=== PATIENT | female | born 1960 | race Caucasian/White ===

== ENCOUNTER 2017-12-06 14:23 | Inpatient (IN) | payer OTHER, SELFPAY ==
[2017-12-06] VITALS (7 sets, daily range): BP systolic 103–147; BP diastolic 41–69; PULSE 102–112; RESP 16–18; TEMP 36.7–36.9; O2SAT 88–97; BMI 66.6; BMI 66.7; BMI 67.3
--- NOTE | 2017-12-06 15:09 | RAD_ITS ---
STUDY: X-RAY CHEST REASON FOR EXAM: Female, 57 years old. Hypoxia. TECHNIQUE: Single AP portable view of the chest. COMPARISON: Comparison is made with prior examination dated December 31, 2016. FINDINGS: There is evidence of vascular congestion and mild degree of CHF. There is no demonstrated pleural abnormality. There is moderate cardiac enlargement. Normal mediastinum and han. Normal visualized pulmonary arteries. There is atherosclerotic calcification of the aortic arch with tortuosity. There are diffuse degenerative changes of the visualized thoracic spine. Normal visualized ribs, clavicles, and shoulders. There is no demonstrated abnormality of the visualized soft tissue structures of the upper abdomen. RAD/Chest 1 View (Portable) IMPRESSION: Cardiomegaly. Mild degree of CHF. Electronically Signed: Oh Wellington MD at 15:29 EDT Tel [phone], Service support ,
[2017-12-06] MEDS: Ondansetron 4 MG/2 ML Vial IV (15:39)
[2017-12-06] MEDS: Morphine 4 MG/ML Syringe IV ×2 (15:39→16:51)
[2017-12-06 16:02] LABS: Absolute Lymphocyte Count 1.37 X10^3/ul (0.83-4.51); Absolute Neutrophil Count 6.4 X10^3/uL (2.0-7.7); Basophil# 0.02 X10^3/uL; Basophil% 0.2 % (0-1); Eosinophil# 0.11 X10^3/uL; Eosinophils% 1.3 % (0-5); Hematocrit 33.4 % (37-47); Hemoglobin 10.4 g/dl (12.0-15.0); Lymphocyte # 1.37 X10^3/ul (4.0); Lymphocyte % 16.6 % (19-41); Mean Corp Hgb Conc 31.1 g/gl (32-36); Mean Corpuscular Hgb 29.1 pg (27.0-32.0); Mean Corpuscular Volume 93.3 fL (81-99); Mean Platelet Vol. 9.4 fl (6.2-12.0); Monocyte# 0.37 X10^3/uL; Monocyte% 4.5 % (0-10); Neutrophil # 6.35 X10^3/uL (2.7-7.7); Neutrophil % 77.3 % (47-70); Platelet Count 263 K/mm3 (150-450); RBC Distribution Width CV 18.7 % (11.6-14.6); RBC Distribution Width SD 62.8 fl (35.1-43.9); Red Blood Count 3.58 M/mm3 (4.2-5.4); White Blood Count 8.2 K/mm3 (4.4-11.0)
[2017-12-06 16:08] LABS: POSITIVE COUNT NO; POSITIVE DIFFERENTIAL NO; POSITIVE MORPHOLOGY NO
[2017-12-06 16:16] LABS: Anion Gap 6 (5-15); BUN 24 mg/dL (7-18); BUN/Creat Ratio 22.9 RATIO (10-20); Chloride 103 mmol/L (98-107); Creatinine, Serum 1.05 mg/dL (0.55-1.02); EST Glomerular Filtration Rate 57 mL/min (>60); Est Glom Filt Rate - Afr Amer 69 mL/min (>60); Estimated Creatinine Clearance 54.01 ml/min; Glucose 284 mg/dL (74-106); Potassium 4.5 mmol/L (3.5-5.1); Sodium Level 139 mmol/L (136-145)
[2017-12-06 16:21] LABS: International Normalized Ratio 1.8; Prothrombin Time (Protime)PT. 21.1 SECONDS (11.7-14.9)
[2017-12-06 16:33] LABS: BNP,B-Type NATRIURETIC PEPTIDE 122.7 pg/mL (0-100)
--- NOTE | 2017-12-06 17:06 | NURSING ---
DR KEYSHAWN THOMPSON
--- NOTE | 2017-12-06 17:13 | ED.DCSUM_ITS ---
- ER Visit Summary Date of Service: 12/06/17 Chief Complaint: [Redness and swelling to right lower extremity] History of Present Illness: The patient is a 57 F [presents to the emergency department with excoriated lesions to the right lower extremity that started about a week ago. Patient states the wounds have been weeping and the leg is now red and painful to the touch. Patient has had a history of cellulitis in the past. Patient denies any fevers. Patient is on home oxygen at night only. Patient denies any shortness of breath out of the ordinary.] Physical Examination: [HEENT-PERRLA, EOMI. Cranial nerves II through XII grossly intact. TMs clear. Mucous membranes moist. No adenopathy. Cardiovascular-irregularly irregular with a 2 out of 6 systolic ejection murmur noted Lungs- good aeration bilaterally with few rales noted in the bases bilaterally. No accessory muscle use or retractions. Abdomen-normoactive bowel sounds, soft, nontender, no rebound or rigidity, no peritoneal signs. Extremities-intact ?4, normal range of motion, normal pulses, atraumatic]. Patient has multiple excoriated lesions to the right lower extremity below the knee that are weeping. Patient has diffuse erythema and cellulitis. Patient has +2 edema both lower extremities. Test Results: [CBC with differential obtained showed a white count of 8.2, hemoglobin 10, hematocrit 33, platelets 263. Chemistries unremarkable. Glucose was 284. BUN was 24 and creatinine was 1.05. INR was 1.8. BNP was 122. Chest x-ray showed cardiomegaly and mild CHF. Cultures of the right leg wounds ordered as well as MRSA.] Emergency Department Course and Treatment: [Patient was started on vancomycin and was medicated with morphine.] Treatment Plan: [Patient will be admitted for IV antibiotics] Disposition: [Admit] Impression: [Cellulitis right lower extremity CHF with hypoxemia] This note was generated with [employer] dictation software. It may contain incorrect words, spelling, and punctuation that were not noted in review of the chart prior to signing ED Disposition - Plan for ED Patient: Chief Complaint: Edema Referrals: Rajesh Reynolds MD [Primary Care Provider] -
--- NOTE | 2017-12-06 17:25 | NURSING ---
MED SURG LEG CELLULITIS [place]
--- NOTE | 2017-12-06 17:47 | PCM.HP.STD ---
Problem List (1) Cellulitis of leg, right Status: Acute History of Present Illness Date of Admission: 12/06/17 Chief Complaint: Right leg redness, bilateral leg excoriations The patient is a 57 year old F who is morbidly obese past medical history of chronic atrial fibrillation, congestive heart failure with preserved left ventricular function, chronic lower extremity venostasis with recurrent cellulitis who presented to the emergency room today with redness on the right leg as well as with excoriated lesions on both lower extremities that started about a week ago recently getting worse. She denies any fever or chills. Emergency room swab from her legs was positive for MRSA PCR was given a dose of IV vancomycin and admitted to the hospital for further management. Past Medical History Past Medical History (Chronic Problems): Chronic Problems (Last Updated 08/26/17 @ 10:40 by Erin Carter) Pulmonary hypertension (Chronic) Morbid obesity (Chronic) Congestive heart failure (Chronic) Chronic atrial fibrillation (Chronic) Type 2 diabetes mellitus (Chronic) Hypertension (Chronic) Allergies latex Allergy (Verified 03/26/15 11:04) Itching pentazocine lactate [From [place]] Allergy (Verified 03/26/15 11:04) Itching phenobarbital Allergy (Verified 03/26/15 11:04) Itching tree nut Allergy (Verified 03/26/15 11:04) Anaphylaxis codeine Adverse Reaction (Verified 03/26/15 11:04) Upset Stomach Home Medications: Ambulatory Orders Medication Instructions Recorded Citalopram [Celexa] 40 mg PO DAILY 03/20/15 Digoxin [Digitek] 250 mcg PO DAILY 03/20/15 Exenatide [Byetta (BKC)] 5 mcg SC BIDCM 03/20/15 Lisinopril [Zestril] 10 mg PO DAILY 03/20/15 Lorazepam [Ativan] 1 mg PO TID PRN PRN 03/20/15 Metformin HCl [Glucophage] 1,000 mg PO BIDCM 03/20/15 Nadolol [Corgard (Beta Mk)] 120 mg PO DAILY 03/20/15 Torsemide [Demadex] 20 mg PO BID 03/20/15 glipiZIDE [Glucotrol] 10 mg PO BIDAC 03/20/15 Gabapentin [Neurontin] 400 mg PO 4X/DAY 12/30/16 Insulin Aspart [Novolog Flexpen] 14 units SC TIDCM 12/30/16 Insulin Glargine,Hum.rec.anlog 46 unit SQ QHS 12/30/16 [Lantus] Warfarin [Coumadin] 10 mg PO TUTHSA 12/30/16 Warfarin [Coumadin] 11 mg PO SUMOWEFR 12/30/16 albuterol sulfate HFA 90 2 puff INHALATION Q4H PRN g 08/26/17 mcg/actuation aerosol inhaler fluticasone 50 mcg/actuation nasal 2 spray INTRANASAL DAILY 08/26/17 spray,suspension Budesonide/Formoterol 160/4.5 2 inh INHALATION Q12H 12/06/17 [Symbicort 160/4.5 Mcg Inhaler (SP)] Diltiazem HCl [Diltiazem 24Hr ER] 120 mg PO DAILY 12/06/17 traMADol [Ultram] 50 mg PO Q4H PRN 12/06/17 Surgical History: hysterectomy, tonsillectomy, - - 2 section. 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 Right leg cellulitis and multiple small bilateral leg wounds; will continue on IV antibiotics and consult ET nurse to assist with local wound care. 2. 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 3. Chronic atrial fibrillation; he is on Cardizem, digoxin and Coumadin, we will continue these medications without change. 4. Morbid obesity; weight loss recommended. 5. DM is type II; will place on regular insulin sliding scale. 6. Chronic congestive heart failure with preserved left ventricular function/pulmonary hypertension; supplemental oxygen diuresis. 7. Ambulatory dysfunction due to morbid obesity; PT/OT, possible long-term placement.
--- NOTE | 2017-12-06 18:10 | NURSING ---
Addendum entered by Corrine Landeros 12/06/17 18:11: HAS A POA Original Note: NO LW OR POA
[2017-12-06 19:10] LABS: Staph aureus DNA By PCR POSITIVE (Negative)
[2017-12-06 19:11] LABS: Probe Check PASS
[2017-12-06 19:12] LABS: M R Staph aureus DNA By PCR POSITIVE (Negative)
[2017-12-06] MEDS: traMADol 50 MG Tablet 100 MG PO (22:06)
[2017-12-06] MEDS: LORazepam 1 MG Tablet PO (22:08)
[2017-12-06] MEDS: Ketorolac 30 MG/ML Syringe IV (22:22)
[2017-12-06] MEDS: Gabapentin 400 MG Capsule PO (22:22)
[2017-12-06] MEDS: Heparin Injection (Vial) 5,000 UNIT/ML VIAL 5000 UNIT SC (22:23)
[2017-12-06 22:50] LABS: Bedside Glucose 280 mg/dL (70-110)
--- NOTE | 2017-12-06 23:11 | PCM.RX.CS ---
Consult Pharmacy has been consulted to manage selected antiobiotic: Vancomycin Type of Consult: New start Suspected Infection: Skin/Soft tissue Labs: Sodium 139 mmol/L (136-145) 12/06/17 15:20 Potassium 4.5 mmol/L (3.5-5.1) 12/06/17 15:20 Chloride 103 mmol/L (98-107) 12/06/17 15:20 Carbon Dioxide 30.0 mmol/L (21.0-32.0) 12/06/17 15:20 Anion Gap 6 (5-15) 12/06/17 15:20 BUN 24 mg/dL (7-18) H 12/06/17 15:20 Creatinine 1.05 mg/dL (0.55-1.02) H 12/06/17 15:20 Est GFR (MDRD) Af Amer 69 mL/min (>60) 12/06/17 15:20 Est GFR (MDRD) Non-Af 57 mL/min (>60) L 12/06/17 15:20 BUN/Creatinine Ratio 22.9 RATIO (10-20) H 12/06/17 15:20 Glucose 284 mg/dL (74-106) H 12/06/17 15:20 Goal Trough: 10-15 mcg/mL Pharmacy Plan for Drug Dosing: Pharmacy Service will continue to monitor and adjust dosing as required. Medications Vancomycin HCl 2,000 mg/ (Sodium Chloride) 540 mls @ 260 mls/hr IV Q18H FRED Follow-Up Labs: Trough Vancomycin Labs to be done on [date and time ordered]: 12/08 @ 1999
[2017-12-06] MEDS: Nystatin Powder 15gm Bottle 1 APPLIC TOPICAL (23:20)
[2017-12-07] VITALS (11 sets, daily range): BP systolic 92–112; BP diastolic 50–66; PULSE 69–122; RESP 16–19; TEMP 36.5–37.1; O2SAT 93–99
[2017-12-07] MEDS: Nystatin Powder 15gm Bottle 1 APPLIC TOPICAL ×3 (05:36→22:09)
[2017-12-07] MEDS: Ketorolac 30 MG/ML Syringe IV ×2 (05:40→12:48)
[2017-12-07 06:08] LABS: International Normalized Ratio 1.8; Prothrombin Time (Protime)PT. 20.6 SECONDS (11.7-14.9)
[2017-12-07 06:16] LABS: Absolute Lymphocyte Count 2.01 X10^3/ul (0.83-4.51); Absolute Neutrophil Count 4.7 X10^3/uL (2.0-7.7); Basophil# 0.01 X10^3/uL; Basophil% 0.1 % (0-1); Eosinophil# 0.23 X10^3/uL; Hematocrit 30.1 % (37-47); Hemoglobin 9.3 g/dl (12.0-15.0); Lymphocyte # 2.01 X10^3/ul (4.0); Lymphocyte % 26.4 % (19-41); Mean Corp Hgb Conc 30.9 g/gl (32-36); Mean Corpuscular Hgb 28.8 pg (27.0-32.0); Mean Corpuscular Volume 93.2 fL (81-99); Mean Platelet Vol. 9.2 fl (6.2-12.0); Monocyte# 0.65 X10^3/uL; Monocyte% 8.5 % (0-10); Neutrophil # 4.71 X10^3/uL (2.7-7.7); Neutrophil % 61.9 % (47-70); Platelet Count 245 K/mm3 (150-450); RBC Distribution Width CV 18.9 % (11.6-14.6); RBC Distribution Width SD 64.2 fl (35.1-43.9); Red Blood Count 3.23 M/mm3 (4.2-5.4); White Blood Count 7.6 K/mm3 (4.4-11.0)
[2017-12-07 06:17] LABS: Anion Gap 6 (5-15); BUN 19 mg/dL (7-18); BUN/Creat Ratio 25.4 RATIO (10-20); Chloride 104 mmol/L (98-107); Creatinine, Serum 0.75 mg/dL (0.55-1.02); EST Glomerular Filtration Rate 84 mL/min (>60); Est Glom Filt Rate - Afr Amer 102 mL/min (>60); Estimated Creatinine Clearance 75.61 ml/min; Glucose 129 mg/dL (74-106); Potassium 3.9 mmol/L (3.5-5.1); Sodium Level 138 mmol/L (136-145)
[2017-12-07 06:23] LABS: POSITIVE COUNT NO; POSITIVE DIFFERENTIAL NO; POSITIVE MORPHOLOGY NO
[2017-12-07] MEDS: Budesonide Respules 0.5 MG/2 ML AMPUL.NEB. INHALATION ×2 (07:12→23:05)
[2017-12-07] MEDS: Albuterol 2.5 MG/3 ML VIAL.NEB. INHALATION ×2 (07:13→23:05)
[2017-12-07 07:26] LABS: Bedside Glucose 144 mg/dL (70-110)
--- NOTE | 2017-12-07 08:24 | PCM.RX.CS ---
Consult Pharmacy has been consulted to manage selected antiobiotic: Vancomycin Type of Consult: Follow-up Suspected Infection: Skin/Soft tissue Prior Doses of Antibiotics Received/Current Regimen: Medications Discontinued Medications Vancomycin HCl 2,500 mg/ (Sodium Chloride) 550 mls @ 275 mls/hr IV X1 ONE Stop: 12/06/17 17:59 Last Admin: 12/06/17 16:04 Dose: 275 mls/hr Labs: Sodium 138 mmol/L (136-145) 12/07/17 05:20 Potassium 3.9 mmol/L (3.5-5.1) 12/07/17 05:20 Chloride 104 mmol/L (98-107) 12/07/17 05:20 Carbon Dioxide 28.0 mmol/L (21.0-32.0) 12/07/17 05:20 Anion Gap 6 (5-15) 12/07/17 05:20 BUN 19 mg/dL (7-18) H 12/07/17 05:20 Creatinine 0.75 mg/dL (0.55-1.02) 12/07/17 05:20 Est GFR (MDRD) Af Amer 102 mL/min (>60) 12/07/17 05:20 Est GFR (MDRD) Non-Af 84 mL/min (>60) 12/07/17 05:20 BUN/Creatinine Ratio 25.4 RATIO (10-20) H 12/07/17 05:20 Glucose 129 mg/dL (74-106) H 12/07/17 05:20 Weight used for dosin kg Estimated Creatinine Clearance: 76 mL/min Goal Trough: 10-15 mcg/mL Pharmacy Plan for Drug Dosing: Pharmacy Service will continue to monitor and adjust dosing as required. Follow-Up Labs: Trough Vancomycin - 12/09/17 @ 1000
[2017-12-07] MEDS: traMADol 50 MG Tablet 100 MG PO (09:14)
[2017-12-07] MEDS: Morphine 4 MG/ML Syringe IV ×3 (09:30→22:07)
[2017-12-07] MEDS: 0.9% NaCl Peripheral Flush Adult/Peds IV ×4 (09:39→22:08)
[2017-12-07] MEDS: Lisinopril 10 MG Tablet PO (09:40)
[2017-12-07] MEDS: Furosemide 40 MG Tablet PO ×2 (09:40→17:36)
[2017-12-07] MEDS: Gabapentin 400 MG Capsule PO ×4 (09:41→22:05)
[2017-12-07] MEDS: dilTIAZem CD 120 MG Capsule PO (09:41)
[2017-12-07] MEDS: Digoxin 250 MCG Tablet PO (09:41)
[2017-12-07] MEDS: Fluticasone 0.05% 1 SPRAY NASAL.SRY 2 SPRAY NASAL (09:41)
[2017-12-07] MEDS: Citalopram 40 MG TABLET PO (09:41)
[2017-12-07] MEDS: Heparin Injection (Vial) 5,000 UNIT/ML VIAL 5000 UNIT SC ×2 (09:42→22:08)
--- NOTE | 2017-12-07 09:56 | NURSING ---
wound photo: left anteromedial lower leg
--- NOTE | 2017-12-07 09:57 | NURSING ---
wound photo: left posterior lower leg
--- NOTE | 2017-12-07 09:57 | NURSING ---
wound photo: right posterior lower leg
--- NOTE | 2017-12-07 10:29 | PCM.PROGNOTE ---
Subjective: Chief complaint: Follow-up after admission for multiple bilateral posterior leg ulcers/wounds with probable right lower extremity cellulitis. Patient seen and examined. No acute events overnight. When I interviewed the patient, the wound care nurse was changing her dressing and I looked at the ulcers and wounds of both legs. Apparently, patient has been using scrub brush to clean her legs at home and he started having those ulcers on both legs around 10 days ago. She noticed that her right leg is more painful, red and swollen than the left one. She denies fever chills. She denied chest pain or shortness of breath. She is afebrile, heart rate has been around 110, blood pressure stable and her pulse ox is 98% on 2 L. - Physical Exam General: Alert, Oriented x3, Cooperative, - - She is in pain because of dressing change. HEENT: Atraumatic, PERRLA, EOMI Oral: Moist Mucosa, No Gingival or Mucosal Lesions/ Ulcerations Neck: Supple, No JVD, Negative Carotid Bruits, Trachea Midline, Thyroid Normal Size and Texture Lungs: Clear to auscultation, No rhonchi, No wheeze, No rales, Diminished Cardiovascular: Regular rate, Regular Rhythm, Normal S1, Normal S2, PMI Normal, Tachycardic Abdomen: Bowel Sounds Present, Soft, Non Tender, Non-Distended, No Hepato-splenomegaly, Obese Extremities: No clubbing, No cyanosis, Edema - Nonpitting edema. Skin: No rashes, Ulcer/ Wound - Both legs: There are multiple skin ulcers/open wounds with clear base and some of them has black sloughs. The size of those ulcers are ranging from 1 x 1 cm to 2 x 3 cm. They are multiple and on the posterior aspect of the both legs. Right leg is slightly red and hot to palpation. Lymphatic: No Cervical, Supraclavicular, or Inguinal Adenopathy Neurological: Cranial nerves II-XII grossly intact, Motor Exam 5/5 strength throughout Psych/Mental Status: Normal Affect, Appropriate, Alert and oriented to time, place, person, mood and affect Vital Signs Temp Pulse Resp BP Pulse Ox 98.7 F 114 H 16 100/66 93 12/07/17 09:00 12/07/17 09:00 12/07/17 09:00 12/07/17 09:00 12/07/17 09:00 Oxygen Flow Rate (L/min) 2 Oxygen Delivery Method Nasal Cannula Weight: 417 lb Body Mass Index (BMI) 67.3 Intake and Output for Last 24 Hours 12/05/17 12/06/17 12/07/17 23:59 23:59 23:59 Intake Total 450 / 450 Balance 450 / 450 Laboratory Tests Past 24 Hrs 12/07/17 12/07/17 12/07/17 05:20 05:20 05:20 WBC 7.6 RBC 3.23 L Hgb 9.3 L Hct 30.1 L MCV 93.2 MCH 28.8 MCHC 30.9 L RDW 18.9 H RDW Differential 64.2 H Plt Count 245 MPV 9.2 Immature Gran % (Auto) 0.100 Neut % (Auto) 61.9 Lymph % (Auto) 26.4 [place] % (Auto) 8.5 Eos % (Auto) 3.0 Baso % (Auto) 0.1 Absolute Neuts (auto) 4.7 Absolute Lymphs (auto) 2.01 Total Counted Not Reportable PT 20.6 H INR 1.8 Sodium 138 Potassium 3.9 Chloride 104 Carbon Dioxide 28.0 Anion Gap 6 BUN 19 H Creatinine 0.75 Estim Creat Clear Calc 75.61 Est GFR (MDRD) Af Amer 102 Est GFR (MDRD) Non-Af 84 BUN/Creatinine Ratio 25.4 H Glucose 129 H Calcium 8.0 L POC Glucose 12/07/17 12/06/17 07:15 22:28 POC Glucose 144 H 280 H Clinical Impression(s) from Imaging Studies Chest X-Ray 12/06/17 15:09 IMPRESSION: Cardiomegaly. Mild degree of CHF. Electronically Signed: Oh Wellington MD at 15:29 EDT Tel [phone], Service support , Medical Necessity - Tobacco Use Smoking Status: Former smoker Assessment/Plan This is a 57 years old female patient resented to the emergency room because of redness and swelling of the right lower extremity, found to have multiple bilateral ulcers/wounds on the posterior aspect of the bilateral lower extremities probable right lower extremity cellulitis. #1 multiple bilateral leg ulcers/wounds/probable right lower extremity cellulitis: This is a started around 10 days ago when patient has been using scrub brush to clean her legs. She started noticing swelling and mild erythema of the right leg. Denied fever chills. She is on IV vancomycin. Her MRSA screen was positive. She is afebrile, no leukocytosis. Blood and wound culture sent, pending. Wound care nurse consulted. Plan: Plastic surgery consult for possible debridement. #2 type 2 diabetes mellitus: ADA diet, Accu-Cheks, insulin sliding scale, continue home doses of Levemir. #3 hypertension: Blood pressure has been stable, continue lisinopril, Corgard and Cardizem. #4 chronic A. fib: Heart rate has been up and down, goes up to 120s. This is likely because of severe pain upon dressing. Continue digoxin, Cardizem, Corgard for rate control, continue Coumadin for anticoagulate him. INR is 1.8. #5 chronic diastolic CHF: Clinically stable, compensated. Continue Lasix, lisinopril, Corgard. #6 DVT prophylaxis: Coumadin, INR is 1.8. This note was generated with [employer] dictation software. It may contain incorrect words, spelling, and punctuation that were not noted in checking the note before signing. Code Visit Inpatient E&M: 84070 Subs Hosp L2
--- NOTE | 2017-12-07 10:34 | PN_ITS ---
Subjective: Chief complaint: Follow-up after admission for multiple bilateral posterior leg ulcers/wounds with probable right lower extremity cellulitis. Patient seen and examined. No acute events overnight. When I interviewed the patient, the wound care nurse was changing her dressing and I looked at the ulcers and wounds of both legs. Apparently, patient has been using scrub brush to clean her legs at home and he started having those ulcers on both legs around 10 days ago. She noticed that her right leg is more painful, red and swollen than the left one. She denies fever chills. She denied chest pain or shortness of breath. She is afebrile, heart rate has been around 110, blood pressure stable and her pulse ox is 98% on 2 L. - Physical Exam General: Alert, Oriented x3, Cooperative, - - She is in pain because of dressing change. HEENT: Atraumatic, PERRLA, EOMI Oral: Moist Mucosa, No Gingival or Mucosal Lesions/ Ulcerations Neck: Supple, No JVD, Negative Carotid Bruits, Trachea Midline, Thyroid Normal Size and Texture Lungs: Clear to auscultation, No rhonchi, No wheeze, No rales, Diminished Cardiovascular: Regular rate, Regular Rhythm, Normal S1, Normal S2, PMI Normal, Tachycardic Abdomen: Bowel Sounds Present, Soft, Non Tender, Non-Distended, No Hepato- splenomegaly, Obese Extremities: No clubbing, No cyanosis, Edema - Nonpitting edema. Skin: No rashes, Ulcer/ Wound - Both legs: There are multiple skin ulcers/open wounds with clear base and some of them has black sloughs. The size of those ulcers are ranging from 1 x 1 cm to 2 x 3 cm. They are multiple and on the posterior aspect of the both legs. Right leg is slightly red and hot to palpation. Lymphatic: No Cervical, Supraclavicular, or Inguinal Adenopathy Neurological: Cranial nerves II-XII grossly intact, Motor Exam 5/5 strength throughout Psych/Mental Status: Normal Affect, Appropriate, Alert and oriented to time, place, person, mood and affect Vital Signs Temp Pulse Resp BP Pulse Ox 98.7 F 114 H 16 100/66 93 12/07/17 09:00 12/07/17 09:00 12/07/17 09:00 12/07/17 09:00 12/07/17 09:00 Oxygen Flow Rate (L/min) 2 Oxygen Delivery Method Nasal Cannula Weight: 417 lb Body Mass Index (BMI) 67.3 Intake and Output for Last 24 Hours 12/05/17 12/06/17 12/07/17 23:59 23:59 23:59 Intake Total 450 / 450 Balance 450 / 450 Laboratory Tests Past 24 Hrs 12/07/17 12/07/17 12/07/17 05:20 05:20 05:20 WBC 7.6 RBC 3.23 L Hgb 9.3 L Hct 30.1 L MCV 93.2 MCH 28.8 MCHC 30.9 L RDW 18.9 H RDW Differential 64.2 H Plt Count 245 MPV 9.2 Immature Gran % (Auto) 0.100 Neut % (Auto) 61.9 Lymph % (Auto) 26.4 [place] % (Auto) 8.5 Eos % (Auto) 3.0 Baso % (Auto) 0.1 Absolute Neuts (auto) 4.7 Absolute Lymphs (auto) 2.01 Total Counted Not Reportable PT 20.6 H INR 1.8 Sodium 138 Potassium 3.9 Chloride 104 Carbon Dioxide 28.0 Anion Gap 6 BUN 19 H Creatinine 0.75 Estim Creat Clear Calc 75.61 Est GFR (MDRD) Af Amer 102 Est GFR (MDRD) Non-Af 84 BUN/Creatinine Ratio 25.4 H Glucose 129 H Calcium 8.0 L POC Glucose 12/07/17 12/06/17 07:15 22:28 POC Glucose 144 H 280 H Clinical Impression(s) from Imaging Studies Chest X-Ray 12/06/17 15:09 IMPRESSION: Cardiomegaly. Mild degree of CHF. Electronically Signed: Oh Wellington MD at 15:29 EDT Tel [phone], Service support , Medical Necessity - Tobacco Use Smoking Status: Former smoker Assessment/Plan This is a 57 years old female patient resented to the emergency room because of redness and swelling of the right lower extremity, found to have multiple bilateral ulcers/wounds on the posterior aspect of the bilateral lower extremities probable right lower extremity cellulitis. #1 multiple bilateral leg ulcers/wounds/probable right lower extremity cellulitis: This is a started around 10 days ago when patient has been using scrub brush to clean her legs. She started noticing swelling and mild erythema of the right leg. Denied fever chills. She is on IV vancomycin. Her MRSA screen was positive. She is afebrile, no leukocytosis. Blood and wound culture sent, pending. Wound care nurse consulted. Plan: Plastic surgery consult for possible debridement. #2 type 2 diabetes mellitus: ADA diet, Accu-Cheks, insulin sliding scale, continue home doses of Levemir. #3 hypertension: Blood pressure has been stable, continue lisinopril, Corgard and Cardizem. #4 chronic A. fib: Heart rate has been up and down, goes up to 120s. This is likely because of severe pain upon dressing. Continue digoxin, Cardizem, Corgard for rate control, continue Coumadin for anticoagulate him. INR is 1.8. #5 chronic diastolic CHF: Clinically stable, compensated. Continue Lasix, lisinopril, Corgard. #6 DVT prophylaxis: Coumadin, INR is 1.8. This note was generated with [employer] dictation software. It may contain incorrect words, spelling, and punctuation that were not noted in checking the note before signing. Code Visit Inpatient E&M: 31297 Subs Hosp L2
--- NOTE | 2017-12-07 12:10 | CASEMGMT ---
DAVID GARCIA Face to Face with patient for initial transition planning/care coordination assessment. DAVID GARCIA introduced self and role at [facility]. Patient lying in bed, alert and oriented. Patient willing to participate in assessment and is able to answer all questions appropriately. Care providers, pharmacy, and demographics verified. See link attached. Patient wishes to discharge home with HHC or SNF. DAVID GARCIA explained that HHC would not come everyday for dressing changes and that someone would need to learn dressing changing. Patient not sure whether daughter would be willing to help with care. Patient states she has no further needs or concerns at this time. CM to follow for discharge planning needs that may arise. Disposition Plan: TBD by coarse of treatment.
[2017-12-07] MEDS: Nadolol 40 MG Tablet 120 MG PO (12:48)
[2017-12-07 13:11] LABS: Bedside Glucose 139 mg/dL (70-110)
--- NOTE | 2017-12-07 14:03 | PCM.CONS.GEN ---
Reason for Consult Date of Consultation: 12/07/17 Reason for Consultation: Nonhealing infected MRSA ulcers bilateral posterior legs. REFERRING PHYSICIAN: Dr. Carrasco. HANDS HANGER: Dr. Martinez. History of Present Illness: The patient is a 57 year old F who is morbidly obese past medical history of diabetes mellitus, chronic atrial fibrillation on Coumadin, chronic venous insufficiency with venostasis who was admitted to the hospital with pain and redness on her posterior legs from abrasion ulcerations that started a week ago after trying to removed dry skin from her legs using a scrub brush. She denies any fever or chills. Emergency room swab from her legs was positive for MRSA PCR was given a dose of IV vancomycin and admitted to the hospital for further management with IV antibiotics and aggressive wound care. I was asked to evaluate this patient for surgical options for treatment. Past Medical History Past Medical History (Chronic Problems): Chronic Problems (Last Updated 12/07/17 @ 09:05 by Thomas Carrasco MD) Pulmonary hypertension (Chronic) Morbid obesity (Chronic) Congestive heart failure (Chronic) Chronic atrial fibrillation (Chronic) Type 2 diabetes mellitus (Chronic) Hypertension (Chronic) Allergies latex Allergy (Verified 03/26/15 11:04) Itching pentazocine lactate [From Talwin] Allergy (Verified 03/26/15 11:04) Itching phenobarbital Allergy (Verified 03/26/15 11:04) Itching tree nut Allergy (Verified 03/26/15 11:04) Anaphylaxis codeine Adverse Reaction (Verified 03/26/15 11:04) Upset Stomach Current Medications Albuterol Sulfate (Ventolin Aerosols) 2.5 mg INHALATION Q4H PRN Albuterol Sulfate (Ventolin Aerosols) 2.5 mg INHALATION Q6HWA.RT FRED Budesonide (Pulmicort Aerosol) 0.5 mg INHALATION Q12H.RT FRED Citalopram Hydrobromide (Celexa) 40 mg PO DAILY FRED Collagenase (Santyl) 1 applic TOPICAL DAILY FRED Digoxin (Lanoxin) 250 mcg PO DAILY FRED Diltiazem HCl (Cardizem Cd) 120 mg PO DAILY FRED Fluticasone Propionate (Flonase Nasal [place]) 2 spray NASAL DAILY FRED Furosemide (Lasix) 40 mg PO BIDLX FRED Gabapentin (Neurontin) 400 mg PO 4X/DAY FRED Heparin Sodium (Porcine) (Heparin Na) 5,000 unit SC BID FRED Vancomycin HCl 1,750 mg/ (Sodium Chloride) 535 mls @ 260 mls/hr IV Q12H [facility] Insulin Aspart (Novolog Flexpen ([facility])) 14 units SC TIDCM [facility] Insulin Detemir (Levemir ([facility])) 46 units SC QHS [facility] Ketorolac Tromethamine (Toradol) 30 mg IV Q6H PRN Lisinopril (Zestril) 10 mg PO DAILY [facility] Lorazepam (Ativan) 1 mg PO TID PRN Magnesium Hydroxide (Milk Of Magnesia) 30 ml PO DAILY PRN Morphine Sulfate () 4 mg IV Q4H PRN Nadolol (Corgard) 120 mg PO DAILY [facility] Nystatin (Mycostatin Powder) 1 applic TOPICAL TID [facility] Ondansetron HCl (Zofran) 8 mg IV Q6H PRN Tramadol HCl (Ultram) 100 mg PO Q6H PRN Warfarin Sodium (Coumadin (Pbkc)) 10 mg PO SuMoWeFr@1700 [facility] Warfarin Sodium (Coumadin (Pbkc)) 10 mg PO TuThSa@1700 [facility] Warfarin Sodium (Coumadin (Pbkc)) 1 mg PO SuMoWeFr@1700 [facility] PAST MEDICAL HISTORY Diabetes mellitus. Hypertension. Atrial fibrillation. CHF. Obesity. Chronic venous insufficiency with venostasis disease. MRSA. Home Medications: Ambulatory Orders Medication Instructions Recorded Citalopram [Celexa] 40 mg PO DAILY 03/20/15 Digoxin [Digitek] 250 mcg PO DAILY 03/20/15 Exenatide [Byetta ([facility])] 5 mcg SC BIDCM 03/20/15 Lisinopril [Zestril] 10 mg PO DAILY 03/20/15 Lorazepam [Ativan] 1 mg PO TID PRN PRN 03/20/15 Metformin HCl [Glucophage] 1,000 mg PO BIDCM 03/20/15 Nadolol [Corgard (Beta Mk)] 120 mg PO DAILY 03/20/15 Torsemide [Demadex] 20 mg PO BID 03/20/15 glipiZIDE [Glucotrol] 10 mg PO BIDAC 03/20/15 Gabapentin [Neurontin] 400 mg PO 4X/DAY 12/30/16 Insulin Aspart [Novolog Flexpen] 14 units SC TIDCM 12/30/16 Insulin Glargine,Hum.rec.anlog 46 unit SQ QHS 12/30/16 [Lantus] Warfarin [Coumadin] 10 mg PO TUTHSA 12/30/16 Warfarin [Coumadin] 11 mg PO SUMOWEFR 12/30/16 albuterol sulfate HFA 90 2 puff INHALATION Q4H PRN g 08/26/17 mcg/actuation aerosol inhaler fluticasone 50 mcg/actuation nasal 2 spray INTRANASAL DAILY 08/26/17 spray,suspension Budesonide/Formoterol 160/4.5 2 inh INHALATION Q12H 12/06/17 [Symbicort 160/4.5 Mcg Inhaler (SP)] Diltiazem HCl [Diltiazem 24Hr ER] 120 mg PO DAILY 12/06/17 traMADol [Ultram] 50 mg PO Q4H PRN 12/06/17 Surgical History: cholecystectomy, hysterectomy - with BSO, tonsillectomy, - - 2 section. Psychiatric History: No pertinent psych hx REGULATORY ASSISTANT History: No pertinent REGULATORY ASSISTANT history Lives: With Family - her mother Smoking Status: Former smoker Alcohol: None Drugs: None - *Family History Maternal History Items: No pertinent history Paternal History Items: No pertinent history Review of Systems Constitutional: Reports: Malaise, Weight Change - lost 80 lbs over last 1-2 years., Fatigue. Denies: Chills, Fever Eyes: Denies: Cataracts, Pain HEENT: Denies: Nasal Congestion, Sore Throat Cardiovascular: Denies: Chest Pain Respiratory: Denies: Cough, Shortness of Breath Gastrointestinal: Denies: Constipation, Diarrhea, Nausea, Vomiting Genitourinary: Denies: Frequency, Hematuria Musculoskeletal: Reports: Leg Pain - bilateral leg pain from abrasion ulcerations posteriorly.. Denies: Arm Pain, Back Pain, Hand Pain, Neck Pain Skin: Reports: Wounds - has abrasion ulcerations positive for MRSA bilateral posterior legs. Neurological: Denies: Headaches Psychiatric: Denies: Anxiety, Depression Endocrine: Reports: - - has diabetes mellitus.. Denies: Polydipsia, Polyuria Hematologic/ Lymphatic: Reports: Easy Bruising - on Coumadin for atrial fibrillation.. Denies: Hx of blood clot - Physical Exam General: Alert, Oriented x3 HEENT: PERRLA, EOMI Neck: Supple Lungs: Clear to auscultation Cardiovascular: Regular rate, Regular Rhythm Abdomen: Soft, Non-Distended Extremities: No clubbing, No cyanosis, Diminished Peripheral Pulses, Edema - mild edema in lower extremities. Skin: Ulcer/ Wound - abrasion ulcerations bilateral posterior legs scattered. Extend from proximal posterior leg down to the ankle area. Very tender to palpation. Some eschar present. No purulent drainage. Some of the scattered ulcerations appear to be partial thickness like grant. Lymphatic: No Cervical, Supraclavicular, or Inguinal Adenopathy Neurological: Cranial nerves II-XII grossly intact Psych/Mental Status: Normal Affect, Appropriate Vital Signs Temp Pulse Resp BP Pulse Ox 98.7 F 108 H 16 100/66 93 12/07/17 09:00 12/07/17 11:00 12/07/17 09:00 12/07/17 09:00 12/07/17 09:00 Oxygen Flow Rate (L/min) 2 Oxygen Delivery Method Nasal Cannula Weight: 417 lb Body Mass Index (BMI) 67.3 Intake and Output for Last 24 Hours 12/05/17 12/06/17 12/07/17 23:59 23:59 23:59 Intake Total 450 / 450 Balance 450 / 450 Laboratory Tests Past 24 Hrs 12/07/17 12/07/17 12/07/17 05:20 05:20 05:20 WBC 7.6 RBC 3.23 L Hgb 9.3 L Hct 30.1 L MCV 93.2 MCH 28.8 MCHC 30.9 L RDW 18.9 H RDW Differential 64.2 H Plt Count 245 MPV 9.2 Immature Gran % (Auto) 0.100 Neut % (Auto) 61.9 Lymph % (Auto) 26.4 [place] % (Auto) 8.5 Eos % (Auto) 3.0 Baso % (Auto) 0.1 Absolute Neuts (auto) 4.7 Absolute Lymphs (auto) 2.01 Total Counted Not Reportable PT 20.6 H INR 1.8 Sodium 138 Potassium 3.9 Chloride 104 Carbon Dioxide 28.0 Anion Gap 6 BUN 19 H Creatinine 0.75 Estim Creat Clear Calc 75.61 Est GFR (MDRD) Af Amer 102 Est GFR (MDRD) Non-Af 84 BUN/Creatinine Ratio 25.4 H Glucose 129 H Calcium 8.0 L POC Glucose 12/07/17 12/07/17 12/06/17 13:05 07:15 22:28 POC Glucose 139 H 144 H 280 H Assessment/Plan 1. 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 2. Diabetes mellitus. 3. Chronic venous insufficiency with venostasis disease. 4. MRSA. 5. Obesity. 6. Atrial fibrillation on Coumadin. Begin Santyl wound care to try and enzymatically debride these ulcerations before surgery. Recommend operative incision and drainage and excisional debridement of these infected MRSA ulcers bilateral legs. Depending on the size of the wounds after the debridement, the VAC may be placed for wound care or may proceed with daily Silver dressings. Will schedule the surgery tomorrow. Will also need KRISTEN wrap for compression. Before discharge will order a noninvasive arterial Doppler study to check for any underlying arterial disease prior to proceeding with extensive compression. Preop will order a CT scan to look for any underlying involvement of the musculature. Continue the Vancomycin for the MRSA. Being diabetic, she will need IV antibiotics after discharge and a PICC line will be placed. After discharge can followup at [facility]. If there is a plateau in the healing process, can proceed with delayed closure with skin grafting. Anticipate increased metabolic demands with the infection and the wounds. Will check a Prealbumin. Will begin nutritional supplementation with protein to help the healing process. Patient was informed of the risks and complications of the procedure including alternatives to surgery. These were discussed with her personally. She voices understanding and wishes to proceed. She understands that without aggressive debridement and management, she is at increased risk of the infection worsening that may lead to an eventual amputation. She is aware of that possibility and wishes to proceed with the current plan of aggressive debridement and management. After surgery, with these complex wounds and the need for IV antibiotics, it will be difficult to manage this at home. I recommend going to an ECF for further care post-discharge. Code Visit Inpatient E&M: 43162 Init Hosp L2 - ICD-10 - L02.415, L02.416, E11.622, A49.02, E66.01, E11.9
--- NOTE | 2017-12-07 14:06 | CON.PCM_ITS ---
Reason for Consult Date of Consultation: 12/07/17 Reason for Consultation: Nonhealing infected MRSA ulcers bilateral posterior legs. REFERRING PHYSICIAN: Dr. Carrasco. MARINE DIVER: Dr. Martinez. History of Present Illness: The patient is a 57 year old F who is morbidly obese past medical history of diabetes mellitus, chronic atrial fibrillation on Coumadin, chronic venous insufficiency with venostasis who was admitted to the hospital with pain and redness on her posterior legs from abrasion ulcerations that started a week ago after trying to removed dry skin from her legs using a scrub brush. She denies any fever or chills. Emergency room swab from her legs was positive for MRSA PCR was given a dose of IV vancomycin and admitted to the hospital for further management with IV antibiotics and aggressive wound care. I was asked to evaluate this patient for surgical options for treatment. Past Medical History Past Medical History (Chronic Problems): Chronic Problems (Last Updated 12/07/17 @ 09:05 by Thomas Carrasco MD) Pulmonary hypertension (Chronic) Morbid obesity (Chronic) Congestive heart failure (Chronic) Chronic atrial fibrillation (Chronic) Type 2 diabetes mellitus (Chronic) Hypertension (Chronic) Allergies latex Allergy (Verified 03/26/15 11:04) Itching pentazocine lactate [From Talwin] Allergy (Verified 03/26/15 11:04) Itching phenobarbital Allergy (Verified 03/26/15 11:04) Itching tree nut Allergy (Verified 03/26/15 11:04) Anaphylaxis codeine Adverse Reaction (Verified 03/26/15 11:04) Upset Stomach Current Medications Albuterol Sulfate (Ventolin Aerosols) 2.5 mg INHALATION Q4H PRN Albuterol Sulfate (Ventolin Aerosols) 2.5 mg INHALATION Q6HWA.RT FRED Budesonide (Pulmicort Aerosol) 0.5 mg INHALATION Q12H.RT FRED Citalopram Hydrobromide (Celexa) 40 mg PO DAILY FRED Collagenase (Santyl) 1 applic TOPICAL DAILY [facility] Digoxin (Lanoxin) 250 mcg PO DAILY FRED Diltiazem HCl (Cardizem Cd) 120 mg PO DAILY FRED Fluticasone Propionate (Flonase Nasal [place]) 2 spray NASAL DAILY FRED Furosemide (Lasix) 40 mg PO BIDLX FRED Gabapentin (Neurontin) 400 mg PO 4X/DAY [facility] Heparin Sodium (Porcine) (Heparin Na) 5,000 unit SC BID FRED Vancomycin HCl 1,750 mg/ (Sodium Chloride) 535 mls @ 260 mls/hr IV Q12H [facility] Insulin Aspart (Novolog Flexpen ([facility])) 14 units SC TIDCM [facility] Insulin Detemir (Levemir ([facility])) 46 units SC QHS [facility] Ketorolac Tromethamine (Toradol) 30 mg IV Q6H PRN Lisinopril (Zestril) 10 mg PO DAILY [facility] Lorazepam (Ativan) 1 mg PO TID PRN Magnesium Hydroxide (Milk Of Magnesia) 30 ml PO DAILY PRN Morphine Sulfate () 4 mg IV Q4H PRN Nadolol (Corgard) 120 mg PO DAILY [facility] Nystatin (Mycostatin Powder) 1 applic TOPICAL TID [facility] Ondansetron HCl (Zofran) 8 mg IV Q6H PRN Tramadol HCl (Ultram) 100 mg PO Q6H PRN Warfarin Sodium (Coumadin (Pbkc)) 10 mg PO SuMoWeFr@1700 [facility] Warfarin Sodium (Coumadin (Pbkc)) 10 mg PO TuThSa@1700 [facility] Warfarin Sodium (Coumadin (Pbkc)) 1 mg PO SuMoWeFr@1700 [facility] PAST MEDICAL HISTORY Diabetes mellitus. Hypertension. Atrial fibrillation. CHF. Obesity. Chronic venous insufficiency with venostasis disease. MRSA. Home Medications: Ambulatory Orders Medication Instructions Recorded Citalopram [Celexa] 40 mg PO DAILY 03/20/15 Digoxin [Digitek] 250 mcg PO DAILY 03/20/15 Exenatide [Byetta ([facility])] 5 mcg SC BIDCM 03/20/15 Lisinopril [Zestril] 10 mg PO DAILY 03/20/15 Lorazepam [Ativan] 1 mg PO TID PRN PRN 03/20/15 Metformin HCl [Glucophage] 1,000 mg PO BIDCM 03/20/15 Nadolol [Corgard (Beta Mk)] 120 mg PO DAILY 03/20/15 Torsemide [Demadex] 20 mg PO BID 03/20/15 glipiZIDE [Glucotrol] 10 mg PO BIDAC 03/20/15 Gabapentin [Neurontin] 400 mg PO 4X/DAY 12/30/16 Insulin Aspart [Novolog Flexpen] 14 units SC TIDCM 12/30/16 Insulin Glargine,Hum.rec.anlog 46 unit SQ QHS 12/30/16 [Lantus] Warfarin [Coumadin] 10 mg PO TUTHSA 12/30/16 Warfarin [Coumadin] 11 mg PO SUMOWEFR 12/30/16 albuterol sulfate HFA 90 2 puff INHALATION Q4H PRN g 08/26/17 mcg/actuation aerosol inhaler fluticasone 50 mcg/actuation nasal 2 spray INTRANASAL DAILY 08/26/17 spray,suspension Budesonide/Formoterol 160/4.5 2 inh INHALATION Q12H 12/06/17 [Symbicort 160/4.5 Mcg Inhaler (SP)] Diltiazem HCl [Diltiazem 24Hr ER] 120 mg PO DAILY 12/06/17 traMADol [Ultram] 50 mg PO Q4H PRN 12/06/17 Surgical History: cholecystectomy, hysterectomy - with BSO, tonsillectomy, - - 2 section. Psychiatric History: No pertinent psych hx MEDICAL OFFICE SPECIALIST History: No pertinent MEDICAL OFFICE SPECIALIST history Lives: With Family - her mother Smoking Status: Former smoker Alcohol: None Drugs: None - *Family History Maternal History Items: No pertinent history Paternal History Items: No pertinent history Review of Systems Constitutional: Reports: Malaise, Weight Change - lost 80 lbs over last 1-2 years., Fatigue. Denies: Chills, Fever Eyes: Denies: Cataracts, Pain HEENT: Denies: Nasal Congestion, Sore Throat Cardiovascular: Denies: Chest Pain Respiratory: Denies: Cough, Shortness of Breath Gastrointestinal: Denies: Constipation, Diarrhea, Nausea, Vomiting Genitourinary: Denies: Frequency, Hematuria Musculoskeletal: Reports: Leg Pain - bilateral leg pain from abrasion ulcerations posteriorly.. Denies: Arm Pain, Back Pain, Hand Pain, Neck Pain Skin: Reports: Wounds - has abrasion ulcerations positive for MRSA bilateral posterior legs. Neurological: Denies: Headaches Psychiatric: Denies: Anxiety, Depression Endocrine: Reports: - - has diabetes mellitus.. Denies: Polydipsia, Polyuria Hematologic/ Lymphatic: Reports: Easy Bruising - on Coumadin for atrial fibrillation.. Denies: Hx of blood clot - Physical Exam General: Alert, Oriented x3 HEENT: PERRLA, EOMI Neck: Supple Lungs: Clear to auscultation Cardiovascular: Regular rate, Regular Rhythm Abdomen: Soft, Non-Distended Extremities: No clubbing, No cyanosis, Diminished Peripheral Pulses, Edema - mild edema in lower extremities. Skin: Ulcer/ Wound - abrasion ulcerations bilateral posterior legs scattered. Extend from proximal posterior leg down to the ankle area. Very tender to palpation. Some eschar present. No purulent drainage. Some of the scattered ulcerations appear to be partial thickness like grant. Lymphatic: No Cervical, Supraclavicular, or Inguinal Adenopathy Neurological: Cranial nerves II-XII grossly intact Psych/Mental Status: Normal Affect, Appropriate Vital Signs Temp Pulse Resp BP Pulse Ox 98.7 F 108 H 16 100/66 93 12/07/17 09:00 12/07/17 11:00 12/07/17 09:00 12/07/17 09:00 12/07/17 09:00 Oxygen Flow Rate (L/min) 2 Oxygen Delivery Method Nasal Cannula Weight: 417 lb Body Mass Index (BMI) 67.3 Intake and Output for Last 24 Hours 12/05/17 12/06/17 12/07/17 23:59 23:59 23:59 Intake Total 450 / 450 Balance 450 / 450 Laboratory Tests Past 24 Hrs 12/07/17 12/07/17 12/07/17 05:20 05:20 05:20 WBC 7.6 RBC 3.23 L Hgb 9.3 L Hct 30.1 L MCV 93.2 MCH 28.8 MCHC 30.9 L RDW 18.9 H RDW Differential 64.2 H Plt Count 245 MPV 9.2 Immature Gran % (Auto) 0.100 Neut % (Auto) 61.9 Lymph % (Auto) 26.4 [place] % (Auto) 8.5 Eos % (Auto) 3.0 Baso % (Auto) 0.1 Absolute Neuts (auto) 4.7 Absolute Lymphs (auto) 2.01 Total Counted Not Reportable PT 20.6 H INR 1.8 Sodium 138 Potassium 3.9 Chloride 104 Carbon Dioxide 28.0 Anion Gap 6 BUN 19 H Creatinine 0.75 Estim Creat Clear Calc 75.61 Est GFR (MDRD) Af Amer 102 Est GFR (MDRD) Non-Af 84 BUN/Creatinine Ratio 25.4 H Glucose 129 H Calcium 8.0 L POC Glucose 12/07/17 12/07/17 12/06/17 13:05 07:15 22:28 POC Glucose 139 H 144 H 280 H Assessment/Plan 1. 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 2. Diabetes mellitus. 3. Chronic venous insufficiency with venostasis disease. 4. MRSA. 5. Obesity. 6. Atrial fibrillation on Coumadin. Begin Santyl wound care to try and enzymatically debride these ulcerations before surgery. Recommend operative incision and drainage and excisional debridement of these infected MRSA ulcers bilateral legs. Depending on the size of the wounds after the debridement, the VAC may be placed for wound care or may proceed with daily Silver dressings. Will schedule the surgery tomorrow. Will also need KRISTEN wrap for compression. Before discharge will order a noninvasive arterial Doppler study to check for any underlying arterial disease prior to proceeding with extensive compression. Preop will order a CT scan to look for any underlying involvement of the musculature. Continue the Vancomycin for the MRSA. Being diabetic, she will need IV antibiotics after discharge and a PICC line will be placed. After discharge can followup at the [facility]. If there is a plateau in the healing process, can proceed with delayed closure with skin grafting. Anticipate increased metabolic demands with the infection and the wounds. Will check a Prealbumin. Will begin nutritional supplementation with protein to help the healing process. Patient was informed of the risks and complications of the procedure including alternatives to surgery. These were discussed with her personally. She voices understanding and wishes to proceed. She understands that without aggressive debridement and management, she is at increased risk of the infection worsening that may lead to an eventual amputation. She is aware of that possibility and wishes to proceed with the current plan of aggressive debridement and management. After surgery, with these complex wounds and the need for IV antibiotics, it will be difficult to manage this at home. I recommend going to an ECF for further care post-discharge. Code Visit Inpatient E&M: 01944 Init Hosp L2 - ICD-10 - L02.415, L02.416, E11.622, A49.02, E66.01, E11.9
[2017-12-07] MEDS: Collagenase 30gm Tube 1 APPLIC TOPICAL (17:36)
[2017-12-07 17:46] LABS: Bedside Glucose 214 mg/dL (70-110)
[2017-12-07 22:51] LABS: Bedside Glucose 165 mg/dL (70-110)
[2017-12-08] VITALS (15 sets, daily range): BP systolic 124–134; BP diastolic 52–71; PULSE 74–100; RESP 14–20; TEMP 36.6–37.3; O2SAT 90–96; BMI 67.2
[2017-12-08] MEDS: traMADol 50 MG Tablet 100 MG PO (01:09)
[2017-12-08] MEDS: LORazepam 1 MG Tablet PO ×3 (01:09→23:15)
[2017-12-08] MEDS: Morphine 4 MG/ML Syringe IV (04:13)
[2017-12-08] MEDS: Nystatin Powder 15gm Bottle 1 APPLIC TOPICAL ×3 (04:16→23:16)
--- NOTE | 2017-12-08 06:00 | EKG12_ITS ---
Test Reason : AM EKG Blood Pressure : / mmHG Vent. Rate : 078 BPM Atrial Rate : 468 BPM P-R Int : 000 ms QRS Dur : 096 ms QT Int : 414 ms P-R-T Axes : 000 054 126 degrees QTc Int : 471 ms Atrial fibrillation Low voltage QRS Septal infarct , age undetermined ST & T wave abnormality, consider lateral ischemia Abnormal ECG When compared with ECG of 30-DEC-2016 10:57, No significant change was found Confirmed by ARTURO LAZARO, MIKO ([id number]), news editor CHECO HERNANDEZ ([id number]) on 12/17/2017 1:15:18 PM Referred By: VIKTOR Confirmed By:MIKO MORRIS MD
[2017-12-08 06:06] LABS: Partial Thromboplast Time 43.6 Seconds (24.1-36.2)
[2017-12-08 06:08] LABS: Anion Gap 6 (5-15); BUN 20 mg/dL (7-18); BUN/Creat Ratio 22.9 RATIO (10-20); Calcium,Total 8.2 mg/dL (8.5-10.1); Chloride 103 mmol/L (98-107); Creatinine, Serum 0.87 mg/dL (0.55-1.02); EST Glomerular Filtration Rate 71 mL/min (>60); Est Glom Filt Rate - Afr Amer 85 mL/min (>60); Estimated Creatinine Clearance 65.18 ml/min; Glucose 123 mg/dL (74-106); Potassium 4.4 mmol/L (3.5-5.1); Sodium Level 137 mmol/L (136-145)
[2017-12-08 06:12] LABS: Absolute Lymphocyte Count 1.77 X10^3/ul (0.83-4.51); Absolute Neutrophil Count 5.1 X10^3/uL (2.0-7.7); Basophil# 0.01 X10^3/uL; Basophil% 0.1 % (0-1); Eosinophil# 0.29 X10^3/uL; Eosinophils% 3.7 % (0-5); Hematocrit 30.6 % (37-47); Hemoglobin 9.3 g/dl (12.0-15.0); Lymphocyte # 1.77 X10^3/ul (4.0); Lymphocyte % 22.6 % (19-41); Mean Corp Hgb Conc 30.4 g/gl (32-36); Mean Corpuscular Hgb 29.2 pg (27.0-32.0); Mean Corpuscular Volume 96.2 fL (81-99); Mean Platelet Vol. 9.5 fl (6.2-12.0); Monocyte# 0.64 X10^3/uL; Monocyte% 8.2 % (0-10); Neutrophil # 5.11 X10^3/uL (2.7-7.7); Neutrophil % 65.3 % (47-70); Platelet Count 282 K/mm3 (150-450); RBC Distribution Width CV 18.9 % (11.6-14.6); RBC Distribution Width SD 64.5 fl (35.1-43.9); Red Blood Count 3.18 M/mm3 (4.2-5.4); White Blood Count 7.8 K/mm3 (4.4-11.0)
[2017-12-08 06:26] LABS: POSITIVE COUNT NO; POSITIVE DIFFERENTIAL NO; POSITIVE MORPHOLOGY NO
[2017-12-08 06:41] LABS: International Normalized Ratio 1.8; Prothrombin Time (Protime)PT. 20.6 SECONDS (11.7-14.9)
[2017-12-08] MEDS: Budesonide Respules 0.5 MG/2 ML AMPUL.NEB. INHALATION ×2 (07:14→18:55)
[2017-12-08] MEDS: Albuterol 2.5 MG/3 ML VIAL.NEB. INHALATION ×3 (07:14→18:55)
--- NOTE | 2017-12-08 08:33 | CT_ITS ---
STUDY: CT SCAN LOWER EXTREMITY LEFT REASON FOR EXAM: Female, 57 years old. History of MRSA with ulcerations in the lower extremity. RADIATION DOSAGE (If Supplied By Facility): CTDIvol = ( 41.22 ) mGy, DLP = ( 4716.02 ) mGycm. Individualized dose optimization techniques were used for this CT.? TECHNIQUE: Multiple axial tomographic images were obtained from the hip joint down to the ankle without intravenous contrast administration. Coronal and sagittal reconstruction was obtained as well. COMPARISON: None. FINDINGS: There is diffuse soft tissue edema in the medial aspect of the proximal left thigh. This extends into the midline. This extends down to the level of the mid thigh. There is evidence of vascular calcification and phleboliths within the venous structures. Dilated venous varicosities. There is evidence of skin thickening along the posterior aspect of the left lower extremity especially along the medial aspect. Focal ulceration is seen in the posterior aspect of the knee joint. CT/Extremity Lower without Contra IMPRESSION: Diffuse left lower extremity edema worse along the medial aspect of the left thigh extending down to the level of the knee joint with the ulceration along the posterior aspect of the knee joint. Phleboliths are seen within the venous structures as well as varicosities. Vascular calcification. Electronically Signed: Oh Wellington MD at 10:20 EDT Tel [phone], Service support ,
[2017-12-08 08:35] LABS: Bedside Glucose 121 mg/dL (70-110)
--- NOTE | 2017-12-08 08:44 | PCM.PROGNOTE ---
Subjective: Chief complaint: Follow-up after admission for multiple bilateral posterior leg ulcers/wounds with possible secondary bacterial infection as well as probable right lower extremity cellulitis. Patient seen and examined. No acute events overnight. Today, she feels better. Her legs are dressed and covered. No significant flank pain. Denies fever chills. Denied any other complaints. Her vital signs are stable. - Physical Exam General: Alert, Oriented x3, Cooperative, No apparent distress HEENT: Atraumatic, PERRLA, EOMI Oral: Moist Mucosa, No Gingival or Mucosal Lesions/ Ulcerations Neck: Supple, No JVD, Negative Carotid Bruits, Trachea Midline, Thyroid Normal Size and Texture Lungs: Clear to auscultation, No rhonchi, No wheeze, No rales, Diminished Cardiovascular: Regular rate, Regular Rhythm, Normal S1, Normal S2, PMI Normal Abdomen: Bowel Sounds Present, Soft, Non Tender, Non-Distended, No Hepato-splenomegaly, Obese Extremities: No clubbing, No cyanosis, Edema - Nonpitting edema. Skin: No rashes, Ulcer/ Wound, - - Multiple skin ulcers on the posterior aspect of both legs, minimal erythema on the right leg. Neurological: Cranial nerves II-XII grossly intact, Neuro grossly intact Psych/Mental Status: Normal Affect, Appropriate, Alert and oriented to time, place, person, mood and affect Vital Signs Temp Pulse Resp BP Pulse Ox 97.9 F 96 18 134/71 H 92 12/08/17 08:06 12/08/17 08:06 12/08/17 08:06 12/08/17 08:06 12/08/17 08:06 Oxygen Flow Rate (L/min) 2 Oxygen Delivery Method Room Air Weight: 416 lb 10.778 oz Body Mass Index (BMI) 67.3 Intake and Output for Last 24 Hours 12/06/17 12/07/17 12/08/17 23:59 23:59 23:59 Intake Total 450 / 450 Balance 450 / 450 Laboratory Tests Past 24 Hrs 12/08/17 12/08/17 12/08/17 05:20 05:20 05:20 WBC 7.8 RBC 3.18 L Hgb 9.3 L Hct 30.6 L MCV 96.2 MCH 29.2 MCHC 30.4 L RDW 18.9 H RDW Differential 64.5 H Plt Count 282 MPV 9.5 Immature Gran % (Auto) 0.100 Neut % (Auto) 65.3 Lymph % (Auto) 22.6 [place] % (Auto) 8.2 Eos % (Auto) 3.7 Baso % (Auto) 0.1 Absolute Neuts (auto) 5.1 Absolute Lymphs (auto) 1.77 Total Counted Not Reportable PT 20.6 H INR 1.8 APTT 43.6 H Sodium 137 Potassium 4.4 Chloride 103 Carbon Dioxide 28.0 Anion Gap 6 BUN 20 H Creatinine 0.87 Estim Creat Clear Calc 65.18 Est GFR (MDRD) Af Amer 85 Est GFR (MDRD) Non-Af 71 BUN/Creatinine Ratio 22.9 H Glucose 123 H Hemoglobin A1c Calcium 8.2 L 12/08/17 05:20 WBC RBC Hgb Hct MCV MCH MCHC RDW RDW Differential Plt Count MPV Immature Gran % (Auto) Neut % (Auto) Lymph % (Auto) [place] % (Auto) Eos % (Auto) Baso % (Auto) Absolute Neuts (auto) Absolute Lymphs (auto) Total Counted PT INR APTT Sodium Potassium Chloride Carbon Dioxide Anion Gap BUN Creatinine Estim Creat Clear Calc Est GFR (MDRD) Af Amer Est GFR (MDRD) Non-Af BUN/Creatinine Ratio Glucose Hemoglobin A1c Pending Calcium POC Glucose 12/08/17 12/07/17 12/07/17 08:28 22:05 17:40 POC Glucose 121 H 165 H 214 H 12/07/17 13:05 POC Glucose 139 H Medical Necessity - Tobacco Use Smoking Status: Former smoker Assessment/Plan This is a 57 years old female patient resented to the emergency room because of redness and swelling of the right lower extremity, found to have multiple bilateral ulcers/wounds on the posterior aspect of the bilateral lower extremities probable right lower extremity cellulitis. #1 multiple probably infected bilateral leg ulcers/wounds/probable right lower extremity cellulitis: She is on IV vancomycin. Status post simple debridement at the bedside that was done by Dr. Martinez. Her vital signs are stable, afebrile. No leukocytosis. Blood cultures pending. Wound culture revealed Proteus and staph aureus, final is pending. Plan for surgery today, continue same treatment. #2 type 2 diabetes mellitus: Blood sugar stable, continue ADA diet, Accu-Cheks, insulin sliding scale, continue home doses of Levemir. #3 hypertension: Blood pressure has been stable, continue lisinopril, Corgard and Cardizem. #4 chronic A. fib: Heart rate controlled.. Continue digoxin, Cardizem, Corgard for rate control, continue Coumadin for anticoagulate him. INR is 1.8. #5 chronic diastolic CHF: Clinically stable, compensated. Continue Lasix, lisinopril, Corgard. #6 DVT prophylaxis: Coumadin, INR is 1.8. This note was generated with [employer] dictation software. It may contain incorrect words, spelling, and punctuation that were not noted in checking the note before signing. Code Visit Inpatient E&M: 37739 Subs Hosp L2
--- NOTE | 2017-12-08 09:00 | CT_ITS ---
STUDY: CT SCAN LOWER EXTREMITY RIGHT REASON FOR EXAM: Female, 57 years old. 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 RADIATION DOSAGE (If Supplied By Facility): CTDIvol = ( 34.39 ) mGy, DLP = ( 1755.25 ) mGycm. Individualized dose optimization techniques were used for this CT.? TECHNIQUE: Multiple axial tomographic images are obtained from the level of the hip joint down to the ankle joint without intravenous contrast administration. COMPARISON: None. FINDINGS: Diffuse subcutaneous edema in the medial aspect of the right upper thigh extending to the mid thigh with overlying skin thickening. Diffuse varicosities and multiple calcifications within the soft tissues. Dermatomyositis should be ruled out. CT/Extremity Lower without Contra IMPRESSION: Diffuse subcutaneous edema and skin thickening along the medial aspect of the right buttock down to the mid leg. Venous varicosities as well as multiple soft tissue calcifications. Electronically Signed: Oh Wellington MD at 10:31 EDT Tel [phone], Service support ,
[2017-12-08 09:06] LABS: Hemoglobin A1c 11.3 % (4.2-6.3)
[2017-12-08] MEDS: Nadolol 40 MG Tablet 120 MG PO (10:39)
[2017-12-08] MEDS: Citalopram 40 MG TABLET PO (10:39)
[2017-12-08] MEDS: Heparin Injection (Vial) 5,000 UNIT/ML VIAL 5000 UNIT SC ×2 (10:40→23:15)
[2017-12-08] MEDS: Digoxin 250 MCG Tablet PO (10:40)
[2017-12-08] MEDS: Fluticasone 0.05% 1 SPRAY NASAL.SRY 2 SPRAY NASAL (10:40)
[2017-12-08] MEDS: Furosemide 40 MG Tablet PO ×2 (10:41→17:49)
[2017-12-08] MEDS: Gabapentin 400 MG Capsule PO ×3 (10:41→23:15)
[2017-12-08] MEDS: Collagenase 30gm Tube 1 APPLIC TOPICAL (10:41)
[2017-12-08] MEDS: Lisinopril 10 MG Tablet PO (10:41)
[2017-12-08] MEDS: dilTIAZem CD 120 MG Capsule PO (10:42)
--- NOTE | 2017-12-08 11:41 | CASEMGMT ---
Social Work Note SW met with pt to discuss discharge planning. Per pt she is interested in placement at [facility] at discharge. Pt states that she has been there before. SW faxed clinicals to [facility] and left a message for Aisha informing her of referral. Pt denied additional needs or concerns at this time. SW will continue to follow to assist with discharge planning. Plan: [facility] pending acceptance Hannah Carvajal RESTAURANT CREW MEMBER, STRESS ENGINEER
--- NOTE | 2017-12-08 12:45 | RAD_ITS ---
XR Chest 1 View INDICATION: PICC LINE PLACEMENT, RIGHT COMPARISON: December 06, 2017 TECHNIQUE: Portable chest FINDINGS: A right-sided PICC line has been placed, tip is difficult to appreciated due to underpenetration, however, the tip appears to be extending to the level of the SVC. No evidence of pneumothorax. The heart size is enlarged, unchanged from previous exam. Central pulmonary vascularity appears prominent, unchanged from previous exam. No significant pleural effusion seen on the portable view. RAD/CXR for Line Placement IMPRESSION: Right sided PICC line appears properly positioned. Findings otherwise stable with cardiomegaly and pulmonary vascular congestion. at 1354 Reported and signed by: Kerry Bose MD Electronically Signed: Kerry Bose MD at 13:53 EDT Tel , Service support ,
[2017-12-08 13:10] LABS: Bedside Glucose 83 mg/dL (70-110)
--- NOTE | 2017-12-08 13:42 | NURSING ---
Pt is scheduled for surgery this afternoon per Dr Martinez. Did not removed dressings at this time. Did notify Dr Martinez about the wound to the right posterior thigh/gluteal fold that is draining copious amounts of purulent drainage. CT scan had been completed this morning as well. will continue to follow. Possible wound VAC placement tomorrow?
--- NOTE | 2017-12-08 14:20 | CASEMGMT ---
Social Work Note SW received call from Aisha at [facility] asking questions about pt's treatment. MEÑO faxed updated clinicals to Aisha at [facility]. MEÑO called Aisha and spoke with her as well to answer questions that Aisha had. Per Aisha, the nursing home admissions director is gone for the day but Aisha will call this worker back tomorrow to inform this worker if they will be able to accept pt. MEÑO will continue to follow to assist with discharge planning. Plan: Discharge to [facility] pending acceptance. Hannah Carvajal MOBILE DESIGNER, TURKEY ROLL MAKER
[2017-12-08] MEDS: Ceftriaxone 2 GM in 0.9% NS 50 ML Minibag x1 IV (14:43)
[2017-12-08 17:45] LABS: Bedside Glucose 92 mg/dL (70-110)
[2017-12-08] MEDS: Ketorolac 30 MG/ML Syringe IV (23:23)
--- NOTE | 2017-12-08 23:51 | PCM.PN.BLA ---
Progress Note Patient was scheduled for surgery today for debridement of her nonhealing infected MRSA ulcers bilateral posterior legs. However she had some Ensure earlier in the day and the surgery had to be postponed. It has been rescheduled for tomorrow morning around 1000 am.
[2017-12-09] VITALS (16 sets, daily range): BP systolic 105–131; BP diastolic 43–82; PULSE 66–102; RESP 14–20; TEMP 36.4–37; O2SAT 94–99
--- NOTE | 2017-12-09 | DEB_PTH ---
PATIENT: VICKI HERNANDEZ LOC: 3 U#:[id number] AGE/SX: 57/F ROOM: SC314 RE12/06/[address]: Dr. Arabella Fontana MD : [id number] BED: 1 DIS: 12/14/2017 SPEC #: [id number] RECD: 12/09/17 13:24 STATUS: REILLY REQ #: [id number] RAUL: 12/09/17 00:[address]: Alejo Martinez DEPT: SURGICAL PATHOLOGY RECD BY: Tony Aguilera ENTERED: 12/09/17 13:25 SP TYPE: ELISSA TISS OTHR DR: MD Dr. Alejo Huffman MD Kombian Gbaruk, MD Dr. William Lago, MD Tissues: A - Soft tissues, NOS B - Soft tissues, NOS C - Soft tissues, NOS Procedures: Decalcification bone/plaque Surgery Specimen Level IV Comments: @ Ordering doctor for SUIII edited from to @ by MIROSLAVA at 12/09/17 1424 @ Submitting doctor edited from to @ by RGOOD at 12/09/17 1424 HEADER OPERATION: Incision and drainage abscess, MRSA ulcers, posterior legs PRE-OP DIAGNOSIS: Chronic bilateral lower extremity venostasis associated with venostasis dermatitis TISSUE SUBMITTED: A ? Debrided tissue, right posterior calf, B ? Right posterior thigh, C ? Left posterior calf MICROSCOPIC DIAGNOSIS A. Skin and soft tissue, right posterior calf, excision: Ulceration with associated acute and chronic inflammation and granulation. Fat necrosis with associated dystrophic microcalcifications and focal ossification. B. Skin and soft tissue, right posterior thigh, excision: Ulceration with associated acute and chronic inflammation and granulation. Focal fat necrosis. C. Skin and soft tissue, left posterior calf, excision: Ulceration with associated acute and chronic inflammation and dystrophic microcalcifications. Rare vessel wall microcalcifications. AM:cornelius 12/15/17 MICROSCOPIC DESCRIPTION Slides are reviewed. GROSS DESCRIPTION A - Received in fixative is one container labeled with the patient's name and designated debrided tissue right posterior calf. The specimen consists of five variable size pieces of guzmán-light brown skin measuring in aggregate 22 x 10 x 3 cm. The skin surface shows area of ulceration. No mass lesion is identified. Focally, the specimen cuts with gritty sensation. Systems Software Manager sections are submitted in two cassettes after decalcification. B - Received in fixative is one container labeled with the patient's name and designated right posterior thigh. The specimen consists of a piece of skin with underlying tissue measuring 11 x 8 x 6 cm. A focal area of ulceration is noted. No mass lesion is identified. Systems Software Manager sections are submitted in two cassettes. C - Received in fixative is one container labeled with the patient's name and designated left posterior leg. The specimen consists of an irregular piece of guzmán-white skin with underlying tissue measuring 23 x 7 cm and up to 2 cm in thickness. Multiple areas of ulceration are noted. No mass lesion is identified. Systems Software Manager sections are submitted in two cassettes. / SJ:cornelius 12/09/17 TC:2 CPT: 01483 x3, 20448
[2017-12-09 00:30] LABS: Bedside Glucose 171 mg/dL (70-110)
[2017-12-09] MEDS: Nystatin Powder 15gm Bottle 1 APPLIC TOPICAL ×3 (05:32→22:02)
[2017-12-09] MEDS: Albuterol 2.5 MG/3 ML VIAL.NEB. INHALATION ×3 (07:13→18:38)
[2017-12-09] MEDS: Budesonide Respules 0.5 MG/2 ML AMPUL.NEB. INHALATION ×2 (07:13→18:38)
[2017-12-09] MEDS: 0.9% NaCl Peripheral Flush Adult/Peds IV ×2 (07:26→15:21)
[2017-12-09] MEDS: LORazepam 1 MG Tablet PO ×2 (07:34→23:37)
[2017-12-09 08:05] LABS: Absolute Lymphocyte Count 1.75 X10^3/ul (0.83-4.51); Absolute Neutrophil Count 3.3 X10^3/uL (2.0-7.7); Basophil# 0.01 X10^3/uL; Basophil% 0.2 % (0-1); Differential Indicated SCAN CRITERIA MET; Eosinophil# 0.21 X10^3/uL; Eosinophils% 3.7 % (0-5); Hematocrit 31.2 % (37-47); Hemoglobin 9.4 g/dl (12.0-15.0); Lymphocyte # 1.75 X10^3/ul (4.0); Lymphocyte % 31.2 % (19-41); Mean Corp Hgb Conc 30.1 g/gl (32-36); Mean Corpuscular Hgb 28.6 pg (27.0-32.0); Mean Corpuscular Volume 94.8 fL (81-99); Mean Platelet Vol. 9.1 fl (6.2-12.0); Monocyte% 5.3 % (0-10); Neutrophil # 3.33 X10^3/uL (2.7-7.7); Neutrophil % 59.4 % (47-70); POSITIVE COUNT NO; POSITIVE DIFFERENTIAL NO; POSITIVE MORPHOLOGY YES; Platelet Count 233 K/mm3 (150-450); RBC Distribution Width SD 65.6 fl (35.1-43.9); Red Blood Count 3.29 M/mm3 (4.2-5.4); White Blood Count 5.6 K/mm3 (4.4-11.0)
[2017-12-09] MEDS: Nadolol 40 MG Tablet 120 MG PO (08:08)
[2017-12-09] MEDS: dilTIAZem CD 120 MG Capsule PO (08:08)
[2017-12-09 08:12] LABS: Anion Gap 6 (5-15); BUN 20 mg/dL (7-18); BUN/Creat Ratio 22.1 RATIO (10-20); Chloride 103 mmol/L (98-107); EST Glomerular Filtration Rate 68 mL/min (>60); Est Glom Filt Rate - Afr Amer 82 mL/min (>60); Estimated Creatinine Clearance 63.01 ml/min; Glucose 109 mg/dL (74-106); Potassium 4.2 mmol/L (3.5-5.1); Sodium Level 141 mmol/L (136-145)
[2017-12-09 08:15] LABS: Bedside Glucose 113 mg/dL (70-110)
--- NOTE | 2017-12-09 08:32 | NURSING ---
Report called to Donna in [facility].
[2017-12-09 08:36] LABS: Hypochromasia 1+; Polychromasia RARE
--- NOTE | 2017-12-09 08:36 | NURSING ---
Pt is being taken down for surgery at this time. Pt was unable to have surgery yesterday d/t having Glucerna late morning. will continue to follow.
[2017-12-09 08:55] LABS: Prothrombin Time (Protime)PT. 22.6 SECONDS (11.7-14.9)
--- NOTE | 2017-12-09 09:06 | PCM.PROGNOTE ---
Subjective: Chief complaint: Follow-up after admission for multiple bilateral posterior leg ulcers/wounds with possible secondary bacterial infection as well as probable right lower extremity cellulitis. Patient seen and examined. No acute events overnight. Today, she has no significant complaints. Her right leg pain is manageable when he is resting. She is going down for surgery this morning. Her vital signs are stable - Physical Exam General: Alert, Oriented x3, Cooperative, No apparent distress HEENT: Atraumatic, PERRLA, EOMI Oral: Moist Mucosa, No Gingival or Mucosal Lesions/ Ulcerations Neck: Supple, No JVD, Negative Carotid Bruits, Trachea Midline, Thyroid Normal Size and Texture Lungs: Clear to auscultation, No rhonchi, No wheeze, No rales, Diminished Cardiovascular: Regular rate, Regular Rhythm, Normal S1, Normal S2, PMI Normal Abdomen: Bowel Sounds Present, Soft, Non Tender, Non-Distended, No Hepato-splenomegaly, Obese Extremities: No clubbing, No cyanosis, Edema - Nonpitting edema Skin: No rashes, Ulcer/ Wound, - Lymphatic: No Cervical, Supraclavicular, or Inguinal Adenopathy Neurological: Cranial nerves II-XII grossly intact, Neuro grossly intact Psych/Mental Status: Normal Affect, Appropriate, Alert and oriented to time, place, person, mood and affect Vital Signs Temp Pulse Resp BP Pulse Ox 97.8 F 66 18 131/57 H 96 12/09/17 08:03 12/09/17 08:03 12/09/17 08:03 12/09/17 08:03 12/09/17 08:03 Oxygen Flow Rate (L/min) 2 Oxygen Delivery Method Nasal Cannula Weight: 416 lb 10.778 oz Body Mass Index (BMI) 67.2 Intake and Output for Last 24 Hours 12/07/17 12/08/17 12/09/17 23:59 23:59 23:59 Intake Total 450 / 450 300 / 300 Output Total 100 / 100 Balance 450 / 450 -100 / -100 300 / 300 Laboratory Tests Past 24 Hrs 12/08/17 12/09/17 12/09/17 05:20 07:30 07:30 WBC 5.6 RBC 3.29 L Hgb 9.4 L Hct 31.2 L MCV 94.8 MCH 28.6 MCHC 30.1 L RDW 19.0 H RDW Differential 65.6 H Plt Count 233 MPV 9.1 Immature Gran % (Auto) 0.200 Neut % (Auto) 59.4 Lymph % (Auto) 31.2 [place] % (Auto) 5.3 Eos % (Auto) 3.7 Baso % (Auto) 0.2 Absolute Neuts (auto) 3.3 Absolute Lymphs (auto) 1.75 Total Counted Not Reportable Polychromasia RARE Hypochromasia 1+ PT INR Sodium 141 Potassium 4.2 Chloride 103 Carbon Dioxide 32.0 Anion Gap 6 BUN 20 H Creatinine 0.90 Estim Creat Clear Calc 63.01 Est GFR (MDRD) Af Amer 82 Est GFR (MDRD) Non-Af 68 BUN/Creatinine Ratio 22.1 H Glucose 109 H Hemoglobin A1c 11.3 H Calcium 8.0 L 12/09/17 07:30 WBC RBC Hgb Hct MCV MCH MCHC RDW RDW Differential Plt Count MPV Immature Gran % (Auto) Neut % (Auto) Lymph % (Auto) [place] % (Auto) Eos % (Auto) Baso % (Auto) Absolute Neuts (auto) Absolute Lymphs (auto) Total Counted Polychromasia Hypochromasia PT 22.6 H INR 2.0 Sodium Potassium Chloride Carbon Dioxide Anion Gap BUN Creatinine Estim Creat Clear Calc Est GFR (MDRD) Af Amer Est GFR (MDRD) Non-Af BUN/Creatinine Ratio Glucose Hemoglobin A1c Calcium POC Glucose 12/09/17 12/08/17 12/08/17 08:01 23:14 17:39 POC Glucose 113 H 171 H 92 12/08/17 13:01 POC Glucose 83 Microbiology 12/06/17 15:20 Skin - Ankle Gram Stain - Final 12/06/17 15:20 Skin - Ankle Wound Culture - Final Proteus mirabilis Staphylococcus aureus Streptococcus agalactiae (B) Medical Necessity - Tobacco Use Smoking Status: Former smoker Assessment/Plan This is a 57 years old female patient resented to the emergency room because of redness and swelling of the right lower extremity, found to have multiple bilateral ulcers/wounds on the posterior aspect of the bilateral lower extremities probable right lower extremity cellulitis. #1 multiple probably infected bilateral leg ulcers/wounds/probable right lower extremity cellulitis: She is on IV Rocephin because her wound culture revealed MSSA, Proteus and strep epilepsy. Her vital signs are stable, afebrile. Status post simple debridement at the bedside that was done by Dr. Mratinez. Blood cultures are pending. Plan for surgery by Dr. Martinez today. #2 type 2 diabetes mellitus: Blood sugar stable, continue ADA diet, Accu-Cheks, insulin sliding scale, continue home doses of Levemir. #3 hypertension: Blood pressure has been stable, continue lisinopril, Corgard and Cardizem. #4 chronic A. fib: Heart rate controlled.. Continue digoxin, Cardizem, Corgard for rate control, continue Coumadin for anticoagulate him. INR is 2. #5 chronic diastolic CHF: Clinically stable, compensated. Continue Lasix, lisinopril, Corgard. #6 DVT prophylaxis: Coumadin, INR is 2. This note was generated with [employer] dictation software. It may contain incorrect words, spelling, and punctuation that were not noted in checking the note before signing. Code Visit Inpatient E&M: 00958 Subs Hosp L2
--- NOTE | 2017-12-09 12:21 | PCM.IMDPSTOP ---
Immediate Post-Op Note Date of Procedure: 12/09/17 Primary Surgeon/Physician: Alejo Martinez floor winder: None Pre-Operative Diagnosis: 1. 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 2. Diabetes mellitus. 3. Chronic venous insufficiency with venostasis disease. 4. MRSA. 5. Obesity. 6. Atrial fibrillation on Coumadin. Post-Operative Diagnosis: 1. 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 2. Nonhealing infected MRSA diabetic ulcer abscess right posterior thigh. 3. Nonhealing infected MRSA diabetic ulcer abscess left posterior leg. 4. Nonhealing infected MRSA diabetic ulcer abscess right lateral ankle. 5. Nonhealing infected MRSA diabetic ulcer abscess left medial ankle. 6. Diabetes mellitus. 7. Chronic venous insufficiency with venostasis disease. 8. MRSA. 9. Obesity. 10. Atrial fibrillation on Coumadin. Surgery/Procedure Performed:: 1. Surgical preparation right posterior leg with incision and drainage and excisional debridement nonhealing infected MRSA ulcer abscess (264 cm2). 2. Surgical preparation right posterior thigh with incision and drainage and excisional debridement nonhealing infected MRSA ulcer abscess (112 cm2). 3. Surgical preparation left posterior leg with incision and drainage and excisional debridement nonhealing infected MRSA ulcer abscess (216 cm2). 4. Surgical preparation right lateral ankle with incision and drainage and excisional debridement nonhealing infected MRSA ulcer abscess (4 cm2). 5. Surgical preparation left medial ankle with incision and drainage and excisional debridement nonhealing infected MRSA ulcer abscess (4 cm2). Description of Surgical Findings:: The patient is a 57 year old F who is morbidly obese past medical history of diabetes mellitus, chronic atrial fibrillation on Coumadin, chronic venous insufficiency with venostasis who was admitted to the hospital with pain and redness on her posterior legs from abrasion ulcerations that started a week ago after trying to removed dry skin from her legs using a scrub brush. She denies any fever or chills. Emergency room swab from her legs was positive for MRSA PCR was given a dose of IV vancomycin and admitted to the hospital for further management with IV antibiotics and aggressive wound care. Today the patient underwent surgical preparation right posterior leg with incision and drainage and excisional debridement nonhealing infected MRSA ulcer abscess (264 cm2) and surgical preparation right posterior thigh with incision and drainage and excisional debridement nonhealing infected MRSA ulcer abscess (112 cm2) and surgical preparation left posterior leg with incision and drainage and excisional debridement nonhealing infected MRSA ulcer abscess (216 cm2) and surgical preparation right lateral ankle with incision and drainage and excisional debridement nonhealing infected MRSA ulcer abscess (4 cm2) and surgical preparation left medial ankle with incision and drainage and excisional debridement nonhealing infected MRSA ulcer abscess (4 cm2). Size of defect right posterior leg - 12 x 22 x 2 cm. Size of defect right posterior thigh - 14 x 8 x 5 cm. Size of defect left posterior leg - 24 x 9 x 1 cm. Size of defect right lateral ankle - 2 x 2 x 1 cm. Size of defect left medial ankle - 2 x 2 x 1 cm. Estimated Blood Loss: 500 ml. Specimen's removed: 1. Nonhealing infected MRSA ulcer abscess right posterior leg and lateral ankle to Pathology and Microbiology. 2. Nonhealing infected MRSA ulcer abscess right posterior thigh to Pathology and Microbiology. 3. Nonhealing infected MRSA ulcer abscess left posterior leg and medial ankle to Pathology and Microbiology. Drains: None. Type of Anesthesia:: General - Admit VTE Documentation VTE Present on Admission: No - She is on Coumadin for atrial fibrillation. VTE Mechan Device Prophylaxis: None - Patient's wounds involve her bilateral legs. She is on Coumadin for atrial fibrillation. VTE Pharm Prophylaxis ordered?: Yes
--- NOTE | 2017-12-09 12:25 | OP.PN_ITS ---
Immediate Post-Op Note Date of Procedure: 12/09/17 Primary Surgeon/Physician: Alejo Martinez veterinarian epidemiologist: None Pre-Operative Diagnosis: 1. 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 2. Diabetes mellitus. 3. Chronic venous insufficiency with venostasis disease. 4. MRSA. 5. Obesity. 6. Atrial fibrillation on Coumadin. Post-Operative Diagnosis: 1. 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 2. Nonhealing infected MRSA diabetic ulcer abscess right posterior thigh. 3. Nonhealing infected MRSA diabetic ulcer abscess left posterior leg. 4. Nonhealing infected MRSA diabetic ulcer abscess right lateral ankle. 5. Nonhealing infected MRSA diabetic ulcer abscess left medial ankle. 6. Diabetes mellitus. 7. Chronic venous insufficiency with venostasis disease. 8. MRSA. 9. Obesity. 10. Atrial fibrillation on Coumadin. Surgery/Procedure Performed:: 1. Surgical preparation right posterior leg with incision and drainage and excisional debridement nonhealing infected MRSA ulcer abscess (264 cm2). 2. Surgical preparation right posterior thigh with incision and drainage and excisional debridement nonhealing infected MRSA ulcer abscess (112 cm2). 3. Surgical preparation left posterior leg with incision and drainage and excisional debridement nonhealing infected MRSA ulcer abscess ( 216 cm2). 4. Surgical preparation right lateral ankle with incision and drainage and excisional debridement nonhealing infected MRSA ulcer abscess (4 cm2). 5. Surgical preparation left medial ankle with incision and drainage and excisional debridement nonhealing infected MRSA ulcer abscess (4 cm2). Description of Surgical Findings:: The patient is a 57 year old F who is morbidly obese past medical history of diabetes mellitus, chronic atrial fibrillation on Coumadin, chronic venous insufficiency with venostasis who was admitted to the hospital with pain and redness on her posterior legs from abrasion ulcerations that started a week ago after trying to removed dry skin from her legs using a scrub brush. She denies any fever or chills. Emergency room swab from her legs was positive for MRSA PCR was given a dose of IV vancomycin and admitted to the hospital for further management with IV antibiotics and aggressive wound care. Today the patient underwent surgical preparation right posterior leg with incision and drainage and excisional debridement nonhealing infected MRSA ulcer abscess (264 cm2) and surgical preparation right posterior thigh with incision and drainage and excisional debridement nonhealing infected MRSA ulcer abscess ( 112 cm2) and surgical preparation left posterior leg with incision and drainage and excisional debridement nonhealing infected MRSA ulcer abscess (216 cm2) and surgical preparation right lateral ankle with incision and drainage and excisional debridement nonhealing infected MRSA ulcer abscess (4 cm2) and surgical preparation left medial ankle with incision and drainage and excisional debridement nonhealing infected MRSA ulcer abscess (4 cm2). Size of defect right posterior leg - 12 x 22 x 2 cm. Size of defect right posterior thigh - 14 x 8 x 5 cm. Size of defect left posterior leg - 24 x 9 x 1 cm. Size of defect right lateral ankle - 2 x 2 x 1 cm. Size of defect left medial ankle - 2 x 2 x 1 cm. Estimated Blood Loss: 500 ml. Specimen's removed: 1. Nonhealing infected MRSA ulcer abscess right posterior leg and lateral ankle to Pathology and Microbiology. 2. Nonhealing infected MRSA ulcer abscess right posterior thigh to Pathology and Microbiology. 3. Nonhealing infected MRSA ulcer abscess left posterior leg and medial ankle to Pathology and Microbiology. Drains: None. Type of Anesthesia:: General - Admit VTE Documentation VTE Present on Admission: No - She is on Coumadin for atrial fibrillation. VTE Mechan Device Prophylaxis: None - Patient's wounds involve her bilateral legs. She is on Coumadin for atrial fibrillation. VTE Pharm Prophylaxis ordered?: Yes
[2017-12-09 14:16] LABS: Bedside Glucose 136 mg/dL (70-110)
[2017-12-09] MEDS: Morphine 4 MG/ML Syringe IV ×2 (15:21→22:01)
[2017-12-09 16:27] LABS: Hemoglobin 9.4 g/dl (12.0-15.0)
[2017-12-09] MEDS: Glucerna Shake 120 ML LIQUID PO (16:32)
[2017-12-09] MEDS: Citalopram 40 MG TABLET PO (16:32)
[2017-12-09] MEDS: Digoxin 250 MCG Tablet PO (16:32)
[2017-12-09] MEDS: Gabapentin 400 MG Capsule PO ×2 (16:33→22:01)
[2017-12-09] MEDS: Furosemide 40 MG Tablet PO (16:33)
[2017-12-09] MEDS: Lisinopril 10 MG Tablet PO (16:33)
--- NOTE | 2017-12-09 17:38 | CASEMGMT ---
Social Work Note SW placed call to Aisha at [facility] asking if they were able to look over pt to see if they can accept. MEÑO will wait to hear from Aisha tomorrow in regards to acceptance. Plan: [facility] pending acceptance Hannah Carvajal WASH TEST CHECKER, SPORT SHOE SPIKE ASSEMBLER
--- NOTE | 2017-12-09 19:27 | PCM.OPRPT ---
Report of Operation Date of Procedure: 12/09/17 Pre-Operative Diagnosis: 1. 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 2. Diabetes mellitus. 3. Chronic venous insufficiency with venostasis disease. 4. MRSA. 5. Obesity. 6. Atrial fibrillation on Coumadin. Post-Operative Diagnosis: 1. 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 2. Nonhealing infected MRSA diabetic ulcer abscess right posterior thigh. 3. Nonhealing infected MRSA diabetic ulcer abscess left posterior leg. 4. Nonhealing infected MRSA diabetic ulcer abscess right lateral ankle. 5. Nonhealing infected MRSA diabetic ulcer abscess left medial ankle. 6. Diabetes mellitus. 7. Chronic venous insufficiency with venostasis disease. 8. MRSA. 9. Obesity. 10. Atrial fibrillation on Coumadin. Surgery/Procedure Performed:: 1. Surgical preparation right posterior leg with incision and drainage and excisional debridement nonhealing infected MRSA ulcer abscess (264 cm2). 2. Surgical preparation right posterior thigh with incision and drainage and excisional debridement nonhealing infected MRSA ulcer abscess (112 cm2). 3. Surgical preparation left posterior leg with incision and drainage and excisional debridement nonhealing infected MRSA ulcer abscess (216 cm2). 4. Surgical preparation right lateral ankle with incision and drainage and excisional debridement nonhealing infected MRSA ulcer abscess (4 cm2). 5. Surgical preparation left medial ankle with incision and drainage and excisional debridement nonhealing infected MRSA ulcer abscess (4 cm2). Description of Surgical Findings:: The patient is a 57 year old F who is morbidly obese past medical history of diabetes mellitus, chronic atrial fibrillation on Coumadin, chronic venous insufficiency with venostasis who was admitted to the hospital with pain and redness on her posterior legs from abrasion ulcerations that started a week ago after trying to removed dry skin from her legs using a scrub brush. She denies any fever or chills. Emergency room swab from her legs was positive for MRSA PCR was given a dose of IV vancomycin and admitted to the hospital for further management with IV antibiotics and aggressive wound care. Patient was informed of the risks and complications of the procedure including alternatives to surgery. These were discussed with her personally. She voices understanding and wishes to proceed. She understands that without aggressive debridement and management, she is at increased risk of the infection worsening that may lead to an eventual amputation. She is aware of that possibility and wishes to proceed with the current plan of aggressive debridement and management. Size of defect right posterior leg - 12 x 22 x 2 cm. Size of defect right posterior thigh - 14 x 8 x 5 cm. Size of defect left posterior leg - 24 x 9 x 1 cm. Size of defect right lateral ankle - 2 x 2 x 1 cm. Size of defect left medial ankle - 2 x 2 x 1 cm. cephalometric technician: None Type of Anesthesia:: General Specimen's removed: 1. Nonhealing infected MRSA ulcer abscess right posterior leg and lateral ankle to Pathology and Microbiology. 2. Nonhealing infected MRSA ulcer abscess right posterior thigh to Pathology and Microbiology. 3. Nonhealing infected MRSA ulcer abscess left posterior leg and medial ankle to Pathology and Microbiology. Drains: None. Estimated Blood Loss (mL): 500 ml. Description of Procedure: Patient was taken to OR in supine position and was given IV sedation. She was placed in the lateral position. Due to her large size, anesthesia felt it was too risky to monitor her. So she was placed back in supine position and was placed under general anesthesia. She was once again placed in the lateral position. This exposed the right posterior leg ulcers. Also the nurses had noted yesterday there was another large ulcer on her right posterior thigh with drainage. That ulcer was also exposed. The left posterior leg ulcers were not exposed well enough so after debridement of the right posterior leg ulcers and right posterior thigh ulcer, the patient will be moved into the opposite lateral position to expose the left posterior leg ulcers for debridement. No SCD's were placed as the surgery was on bilateral legs. She is already getting chemoprophylaxis with Coumadin that she is on for atrial fibrillation. Perioperative antibiotics were given intravenously. The right posterior leg ulcers and right posterior thigh ulcer were prepped and draped in the usual fashion. Using xylocaine with epinephrine, the ulcers were infiltrated for postop pain relief. I then proceeded with surgical preparation of these ulcers with incision and drainage. Some pus was seen in the subcutaneous tissue. A lot of fat necrosis was present that was malodorous. Some of the fat necrosis was very hard and calcified. There was extension of the infection to the underlying fascia. The fascia appeared viable without evidence of necrotizing process. A lot of bleeding was encountered that was controlled with hemostasis and occasional 3-0 Vicryl suture ligature. Most of the ulcers were combined into one larger ulcer due to the amount of pus and fat necrosis present. This will make the wound care easier and ultimately less painful. There was one smaller ulcer on the right lateral ankle that was far enough away that I incised and drained it as a separate ulcer. Due to the amount of fat necrosis present, excisional debridement of these ulcers were done. Some of the tissue was sent to Microbiology for culture. The rest of the tissue was sent to Pathology for analysis to rule out carcinoma. The wounds were irrigated with saline. Hemostasis obtained with electrocautery. The wounds were dressed with Mepitel nonadherent dressing followed by Kerlix gauze and Betadine followed by dry Kerlix gauze, ABD pads and a compression KRISTEN wrap around the leg and a compression dressing for the right posterior thigh. The patient was then turned in the other lateral position to expose the left posterior leg ulcers. The ulcers were prepped and draped in the usual fashion. Using xylocaine with epinephrine, the ulcers were infiltrated for postop pain relief. I then proceeded with surgical preparation of these ulcers with incision and drainage. Some pus was seen in the subcutaneous tissue. A lot of fat necrosis was present that was malodorous. Some of the fat necrosis was very hard and calcified. There was extension of the infection to the underlying fascia. The fascia appeared viable without evidence of necrotizing process. A lot of bleeding was encountered that was controlled with hemostasis and occasional 3-0 Vicryl suture ligature. Most of the ulcers were combined into one larger ulcer due to the amount of pus and fat necrosis present. This will make the wound care easier and ultimately less painful. There was one smaller ulcer on the left medial ankle that was far enough away that I incised and drained it as a separate ulcer. Due to the amount of fat necrosis present, excisional debridement of these ulcers were done. Some of the tissue was sent to Microbiology for culture. The rest of the tissue was sent to Pathology for analysis to rule out carcinoma. The wounds were irrigated with saline. Hemostasis obtained with electrocautery. The wounds were dressed with Mepitel nonadherent dressing followed by Kerlix gauze and Betadine followed by dry Kerlix gauze, ABD pads and a compression KRISTEN wrap. Patient tolerated the procedure well. She was sent to PACU in satisfactory condition. She will be sent upstairs for continued postop care. There was some bleeding during the surgery (about 500 ml). Will check a Hgb later today and have a Type and Cross ready in case transfusion is necessary during the postop period. The VAC will be applied tomorrow. Grafts/Implants Used: None. - Complications None. - Admit VTE Documentation VTE Present on Admission: No - She is on Coumadin for atrial fibrillation. VTE Mechan Device Prophylaxis: None - Patient's wounds involve her bilateral legs. She is on Coumadin for atrial fibrillation. VTE Pharm Prophylaxis ordered?: Yes Code Visit Surgery Charges CPT - 97005 ICD-10 - L02.415, E11.622, A49.02, E66.01 62093-69 L02.415, E11.622, A49.02, E66.01 34197-02 L02.416, E11.622, A49.02, E66.01 66268-93 L02.415, E11.622, A49.02, E66.01 01685-33 L02.416, E11.622, A49.02, E66.01 81519-72 L02.415, L02.416, E11.622, A49.02, E66.01 35202 (5 units) L02.415, L02.416, E11.622, A49.02, E66.01
[2017-12-09 19:31] LABS: Bedside Glucose 129 mg/dL (70-110)
[2017-12-09 22:11] LABS: Bedside Glucose 142 mg/dL (70-110)
[2017-12-09] MEDS: Ketorolac 30 MG/ML Syringe IV (23:20)
[2017-12-10] VITALS (11 sets, daily range): BP systolic 109–121; BP diastolic 43–94; PULSE 62–95; RESP 15–21; TEMP 37.1–37.3; O2SAT 89–97
[2017-12-10] MEDS: morphine 10 MG/ML Syringe IV ×3 (01:32→13:05)
[2017-12-10] MEDS: 0.9% NaCl Peripheral Flush Adult/Peds IV (05:31)
[2017-12-10 05:36] LABS: Hematocrit 29.7 % (37-47); Hemoglobin 8.9 g/dl (12.0-15.0); Mean Corpuscular Hgb 28.3 pg (27.0-32.0); Mean Corpuscular Volume 94.6 fL (81-99); Mean Platelet Vol. 8.9 fl (6.2-12.0); Platelet Count 278 K/mm3 (150-450); RBC Distribution Width CV 19.1 % (11.6-14.6); RBC Distribution Width SD 65.3 fl (35.1-43.9); Red Blood Count 3.14 M/mm3 (4.2-5.4); White Blood Count 9.1 K/mm3 (4.4-11.0)
[2017-12-10 05:42] LABS: International Normalized Ratio 2.3; Prothrombin Time (Protime)PT. 25.4 SECONDS (11.7-14.9)
[2017-12-10 05:46] LABS: Scan Indicated on CBC? Y/N YES- FLAGS NOTED
[2017-12-10 05:56] LABS: Anion Gap 3 (5-15); BUN 21 mg/dL (7-18); BUN/Creat Ratio 21.2 RATIO (10-20); Calcium,Total 8.1 mg/dL (8.5-10.1); Chloride 105 mmol/L (98-107); Creatinine, Serum 0.99 mg/dL (0.55-1.02); EST Glomerular Filtration Rate 61 mL/min (>60); Est Glom Filt Rate - Afr Amer 74 mL/min (>60); Estimated Creatinine Clearance 57.28 ml/min; Glucose 105 mg/dL (74-106); Potassium 4.7 mmol/L (3.5-5.1); Prealbumin 7.9 mg/dL (20.0-40.0); Sodium Level 142 mmol/L (136-145)
[2017-12-10 06:57] LABS: Differential Comment SCANNED
[2017-12-10] MEDS: Budesonide Respules 0.5 MG/2 ML AMPUL.NEB. INHALATION ×2 (07:14→19:30)
[2017-12-10] MEDS: Albuterol 2.5 MG/3 ML VIAL.NEB. INHALATION ×3 (07:14→19:30)
--- NOTE | 2017-12-10 07:37 | PCM.PROGNOTE ---
Subjective: Chief complaint: Follow-up after admission for multiple bilateral posterior leg ulcers/wounds with secondary bacterial infection as well as right lower extremity cellulitis status post surgery, postop day 1. Patient seen and examined. According to nursing staff, she had a rough night with uncontrolled severe right lower extremity pain. They needed to go up to 6-8 mg of IV morphine every 4 hours and still her pain is not well controlled but it is getting better. Denies fever chills. No chest pain or shortness of breath. Vital signs are stable. - Physical Exam General: Alert, Oriented x3, Cooperative, No apparent distress HEENT: Atraumatic, PERRLA, EOMI Oral: Moist Mucosa Neck: Supple, No JVD, Negative Carotid Bruits, Trachea Midline, Thyroid Normal Size and Texture Lungs: Clear to auscultation, No rhonchi, No wheeze, No rales, Diminished Cardiovascular: Regular rate, Regular Rhythm, Normal S1, Normal S2, PMI Normal Abdomen: Bowel Sounds Present, Soft, Non Tender, Non-Distended, No Hepato-splenomegaly, Obese Extremities: No clubbing, No cyanosis, No edema Skin: No rashes, No breakdown Lymphatic: No Cervical, Supraclavicular, or Inguinal Adenopathy Neurological: Cranial nerves II-XII grossly intact, Neuro grossly intact Psych/Mental Status: Normal Affect, Appropriate, Alert and oriented to time, place, person, mood and affect Vital Signs Temp Pulse Resp BP Pulse Ox 99.2 F H 82 21 H 115/94 H 92 12/10/17 05:09 12/10/17 07:14 12/10/17 07:14 12/10/17 05:09 12/10/17 07:14 Oxygen Flow Rate (L/min) 2 Oxygen Delivery Method Nasal Cannula Weight: 416 lb 10.778 oz Body Mass Index (BMI) 67.2 Intake and Output for Last 24 Hours 12/08/17 12/09/17 12/10/17 23:59 23:59 23:59 Intake Total 2250 / 2250 500 / 500 Output Total 100 / 100 Balance -100 / -100 2250 / 2250 500 / 500 Microbiology Past 72 Hours 12/09/17 Unknown Gram Stain - Final Tissue - Leg, Left 12/09/17 Unknown Gram Stain - Final Tissue - Leg, Right 12/09/17 Unknown Gram Stain - Final Tissue - Leg, Right Laboratory Tests Past 24 Hrs 12/09/17 12/09/17 12/09/17 07:30 07:30 07:30 WBC 5.6 RBC 3.29 L Hgb 9.4 L Hct 31.2 L MCV 94.8 MCH 28.6 MCHC 30.1 L RDW 19.0 H RDW Differential 65.6 H Plt Count 233 MPV 9.1 Immature Gran % (Auto) 0.200 Neut % (Auto) 59.4 Lymph % (Auto) 31.2 [place] % (Auto) 5.3 Eos % (Auto) 3.7 Baso % (Auto) 0.2 Absolute Neuts (auto) 3.3 Absolute Lymphs (auto) 1.75 Total Counted Not Reportable Differential Comment Polychromasia RARE Hypochromasia 1+ PT 22.6 H INR 2.0 Sodium 141 Potassium 4.2 Chloride 103 Carbon Dioxide 32.0 Anion Gap 6 BUN 20 H Creatinine 0.90 Estim Creat Clear Calc 63.01 Est GFR (MDRD) Af Amer 82 Est GFR (MDRD) Non-Af 68 BUN/Creatinine Ratio 22.1 H Glucose 109 H Calcium 8.0 L Prealbumin Blood Type Antibody Screen Crossmatch 12/09/17 12/09/17 12/10/17 13:30 16:12 05:25 WBC 9.1 RBC 3.14 L Hgb 9.4 L 8.9 L Hct 29.7 L MCV 94.6 MCH 28.3 MCHC 30.0 L RDW 19.1 H RDW Differential 65.3 H Plt Count 278 MPV 8.9 Immature Gran % (Auto) Neut % (Auto) Lymph % (Auto) [place] % (Auto) Eos % (Auto) Baso % (Auto) Absolute Neuts (auto) Absolute Lymphs (auto) Total Counted Differential Comment SCANNED Polychromasia Hypochromasia PT INR Sodium Potassium Chloride Carbon Dioxide Anion Gap BUN Creatinine Estim Creat Clear Calc Est GFR (MDRD) Af Amer Est GFR (MDRD) Non-Af BUN/Creatinine Ratio Glucose Calcium Prealbumin Blood Type A POSITIVE Antibody Screen NEGATIVE Crossmatch See Detail 12/10/17 12/10/17 05:25 05:25 WBC RBC Hgb Hct MCV MCH MCHC RDW RDW Differential Plt Count MPV Immature Gran % (Auto) Neut % (Auto) Lymph % (Auto) [place] % (Auto) Eos % (Auto) Baso % (Auto) Absolute Neuts (auto) Absolute Lymphs (auto) Total Counted Differential Comment Polychromasia Hypochromasia PT 25.4 H INR 2.3 Sodium 142 Potassium 4.7 Chloride 105 Carbon Dioxide 34.0 H Anion Gap 3 L BUN 21 H Creatinine 0.99 Estim Creat Clear Calc 57.28 Est GFR (MDRD) Af Amer 74 Est GFR (MDRD) Non-Af 61 BUN/Creatinine Ratio 21.2 H Glucose 105 Calcium 8.1 L Prealbumin 7.9 L Blood Type Antibody Screen Crossmatch POC Glucose 12/09/17 12/09/17 12/09/17 21:55 16:27 14:10 POC Glucose 142 H 129 H 136 H 12/09/17 08:01 POC Glucose 113 H Medical Necessity - Tobacco Use Smoking Status: Former smoker Assessment/Plan This is a 57 years old female patient resented to the emergency room because of redness and swelling of the right lower extremity, found to have multiple bilateral ulcers/wounds on the posterior aspect of the bilateral lower extremities probable right lower extremity cellulitis. #1 multiple bilateral leg ulcers/wounds with secondary bacterial infection/ right lower extremity cellulitis: Status post incision, drainage and excisional debridement, postop day 1. She is on IV Rocephin. Her vital signs are stable, afebrile. Her pain is not well controlled, needed to go up to 6-8 mg of IV morphine every 4 hours as needed overnight. Blood culture showed no growth in 48 hours. Surgical specimen cultures pending. Dr. Martinez is on the case. Plan: Start OxyIR every 4 hours as needed, try to go down on IV morphine, repeat CBC tomorrow morning. Patient will need placement to long-term facility. #2 acute on chronic anemia: Due to blood loss during surgery. She does have chronic anemia with baseline hemoglobin has been around 10 g/dL. Today's hemoglobin is 8.9 g/dL. She is asymptomatic, no indication for transfusion. Plan to transfuse if hemoglobin less than 8 g/dL, repeat CBC tomorrow morning. #3 type 2 diabetes mellitus: Blood sugar stable, continue ADA diet, Accu-Cheks, insulin sliding scale, continue home doses of Levemir. #4 hypertension: Blood pressure has been stable, continue lisinopril, Corgard and Cardizem. #5 chronic A. fib: Heart rate controlled.. Continue digoxin, Cardizem, Corgard for rate control, continue Coumadin for anticoagulate him. INR is 2.3. #6 chronic diastolic CHF: Clinically stable, compensated. Continue Lasix, lisinopril, Corgard. #7 DVT prophylaxis: Coumadin, INR is 2.3. This note was generated with [employer] (SAM) dictation software. It may contain incorrect words, spelling, and punctuation that were not noted in checking the note before signing. Code Visit Inpatient E&M: 88117 Subs Hosp L2
--- NOTE | 2017-12-10 07:44 | PN_ITS ---
Subjective: Chief complaint: Follow-up after admission for multiple bilateral posterior leg ulcers/wounds with secondary bacterial infection as well as right lower extremity cellulitis status post surgery, postop day 1. Patient seen and examined. According to nursing staff, she had a rough night with uncontrolled severe right lower extremity pain. They needed to go up to 6- 8 mg of IV morphine every 4 hours and still her pain is not well controlled but it is getting better. Denies fever chills. No chest pain or shortness of breath. Vital signs are stable. - Physical Exam General: Alert, Oriented x3, Cooperative, No apparent distress HEENT: Atraumatic, PERRLA, EOMI Oral: Moist Mucosa Neck: Supple, No JVD, Negative Carotid Bruits, Trachea Midline, Thyroid Normal Size and Texture Lungs: Clear to auscultation, No rhonchi, No wheeze, No rales, Diminished Cardiovascular: Regular rate, Regular Rhythm, Normal S1, Normal S2, PMI Normal Abdomen: Bowel Sounds Present, Soft, Non Tender, Non-Distended, No Hepato- splenomegaly, Obese Extremities: No clubbing, No cyanosis, No edema Skin: No rashes, No breakdown Lymphatic: No Cervical, Supraclavicular, or Inguinal Adenopathy Neurological: Cranial nerves II-XII grossly intact, Neuro grossly intact Psych/Mental Status: Normal Affect, Appropriate, Alert and oriented to time, place, person, mood and affect Vital Signs Temp Pulse Resp BP Pulse Ox 99.2 F H 82 21 H 115/94 H 92 12/10/17 05:09 12/10/17 07:14 12/10/17 07:14 12/10/17 05:09 12/10/17 07:14 Oxygen Flow Rate (L/min) 2 Oxygen Delivery Method Nasal Cannula Weight: 416 lb 10.778 oz Body Mass Index (BMI) 67.2 Intake and Output for Last 24 Hours 12/08/17 12/09/17 12/10/17 23:59 23:59 23:59 Intake Total 2250 / 2250 500 / 500 Output Total 100 / 100 Balance -100 / -100 2250 / 2250 500 / 500 Microbiology Past 72 Hours 12/09/17 Unknown Gram Stain - Final Tissue - Leg, Left 12/09/17 Unknown Gram Stain - Final Tissue - Leg, Right 12/09/17 Unknown Gram Stain - Final Tissue - Leg, Right Laboratory Tests Past 24 Hrs 12/09/17 12/09/17 12/09/17 07:30 07:30 07:30 WBC 5.6 RBC 3.29 L Hgb 9.4 L Hct 31.2 L MCV 94.8 MCH 28.6 MCHC 30.1 L RDW 19.0 H RDW Differential 65.6 H Plt Count 233 MPV 9.1 Immature Gran % (Auto) 0.200 Neut % (Auto) 59.4 Lymph % (Auto) 31.2 Knott % (Auto) 5.3 Eos % (Auto) 3.7 Baso % (Auto) 0.2 Absolute Neuts (auto) 3.3 Absolute Lymphs (auto) 1.75 Total Counted Not Reportable Differential Comment Polychromasia RARE Hypochromasia 1+ PT 22.6 H INR 2.0 Sodium 141 Potassium 4.2 Chloride 103 Carbon Dioxide 32.0 Anion Gap 6 BUN 20 H Creatinine 0.90 Estim Creat Clear Calc 63.01 Est GFR (MDRD) Af Amer 82 Est GFR (MDRD) Non-Af 68 BUN/Creatinine Ratio 22.1 H Glucose 109 H Calcium 8.0 L Prealbumin Blood Type Antibody Screen Crossmatch 12/09/17 12/09/17 12/10/17 13:30 16:12 05:25 WBC 9.1 RBC 3.14 L Hgb 9.4 L 8.9 L Hct 29.7 L MCV 94.6 MCH 28.3 MCHC 30.0 L RDW 19.1 H RDW Differential 65.3 H Plt Count 278 MPV 8.9 Immature Gran % (Auto) Neut % (Auto) Lymph % (Auto) Knott % (Auto) Eos % (Auto) Baso % (Auto) Absolute Neuts (auto) Absolute Lymphs (auto) Total Counted Differential Comment SCANNED Polychromasia Hypochromasia PT INR Sodium Potassium Chloride Carbon Dioxide Anion Gap BUN Creatinine Estim Creat Clear Calc Est GFR (MDRD) Af Amer Est GFR (MDRD) Non-Af BUN/Creatinine Ratio Glucose Calcium Prealbumin Blood Type A POSITIVE Antibody Screen NEGATIVE Crossmatch See Detail 12/10/17 12/10/17 05:25 05:25 WBC RBC Hgb Hct MCV MCH MCHC RDW RDW Differential Plt Count MPV Immature Gran % (Auto) Neut % (Auto) Lymph % (Auto) Knott % (Auto) Eos % (Auto) Baso % (Auto) Absolute Neuts (auto) Absolute Lymphs (auto) Total Counted Differential Comment Polychromasia Hypochromasia PT 25.4 H INR 2.3 Sodium 142 Potassium 4.7 Chloride 105 Carbon Dioxide 34.0 H Anion Gap 3 L BUN 21 H Creatinine 0.99 Estim Creat Clear Calc 57.28 Est GFR (MDRD) Af Amer 74 Est GFR (MDRD) Non-Af 61 BUN/Creatinine Ratio 21.2 H Glucose 105 Calcium 8.1 L Prealbumin 7.9 L Blood Type Antibody Screen Crossmatch POC Glucose 12/09/17 12/09/17 12/09/17 21:55 16:27 14:10 POC Glucose 142 H 129 H 136 H 12/09/17 08:01 POC Glucose 113 H Medical Necessity - Tobacco Use Smoking Status: Former smoker Assessment/Plan This is a 57 years old female patient resented to the emergency room because of redness and swelling of the right lower extremity, found to have multiple bilateral ulcers/wounds on the posterior aspect of the bilateral lower extremities probable right lower extremity cellulitis. #1 multiple bilateral leg ulcers/wounds with secondary bacterial infection/ right lower extremity cellulitis: Status post incision, drainage and excisional debridement, postop day 1. She is on IV Rocephin. Her vital signs are stable, afebrile. Her pain is not well controlled, needed to go up to 6-8 mg of IV morphine every 4 hours as needed overnight. Blood culture showed no growth in 48 hours. Surgical specimen cultures pending. Dr. Martinez is on the case. Plan : Start OxyIR every 4 hours as needed, try to go down on IV morphine, repeat CBC tomorrow morning. Patient will need placement to [facility] facility. #2 acute on chronic anemia: Due to blood loss during surgery. She does have chronic anemia with baseline hemoglobin has been around 10 g/dL. Today's hemoglobin is 8.9 g/dL. She is asymptomatic, no indication for transfusion. Plan to transfuse if hemoglobin less than 8 g/dL, repeat CBC tomorrow morning. #3 type 2 diabetes mellitus: Blood sugar stable, continue ADA diet, Accu-Cheks, insulin sliding scale, continue home doses of Levemir. #4 hypertension: Blood pressure has been stable, continue lisinopril, Corgard and Cardizem. #5 chronic A. fib: Heart rate controlled.. Continue digoxin, Cardizem, Corgard for rate control, continue Coumadin for anticoagulate him. INR is 2.3. #6 chronic diastolic CHF: Clinically stable, compensated. Continue Lasix, lisinopril, Corgard. #7 DVT prophylaxis: Coumadin, INR is 2.3. This note was generated with [employer] dictation software. It may contain incorrect words, spelling, and punctuation that were not noted in checking the note before signing. Code Visit Inpatient E&M: 53193 Subs Hosp L2
[2017-12-10 08:30] LABS: Bedside Glucose 115 mg/dL (70-110)
[2017-12-10] MEDS: Gabapentin 400 MG Capsule PO ×4 (10:30→23:49)
[2017-12-10] MEDS: Digoxin 250 MCG Tablet PO (10:30)
[2017-12-10] MEDS: Furosemide 40 MG Tablet PO ×2 (10:30→16:19)
[2017-12-10] MEDS: Nadolol 40 MG Tablet 120 MG PO (10:31)
[2017-12-10] MEDS: Citalopram 40 MG TABLET PO (10:31)
[2017-12-10] MEDS: Lisinopril 10 MG Tablet PO (10:31)
[2017-12-10] MEDS: Glucerna Shake 120 ML LIQUID PO ×2 (10:31→14:15)
[2017-12-10] MEDS: oxyCODONE 5 MG Tablet PO (10:32)
[2017-12-10] MEDS: dilTIAZem CD 120 MG Capsule PO (10:32)
[2017-12-10] MEDS: Fluticasone 0.05% 1 SPRAY NASAL.SRY 2 SPRAY NASAL (10:34)
--- NOTE | 2017-12-10 10:35 | NURSING ---
wound photo: right posterior thigh
--- NOTE | 2017-12-10 10:35 | NURSING ---
wound photo: right posterior\lateral leg
--- NOTE | 2017-12-10 10:36 | NURSING ---
wound photo: left posterior/lateral leg
--- NOTE | 2017-12-10 10:37 | NURSING ---
wound photo: left medial ankle
--- NOTE | 2017-12-10 11:08 | CASEMGMT ---
Social Work Note SW has placed multiple calls to Aisha at [facility] asking if they can accept. SW hasn't received a call back from Aisha. Per, previous conversation with pt her second choice is [facility] if [facility]. SW made referral to [facility] and placed a call to Joelle informing her of referral. Per Joelle, she will look pt over and give this worker a call back if they are able to accept pt. MEÑO will continue to follow to assist with discharge planning. Plan: Either [facility] or [facility] pending acceptance from facility Hannah Carvajal CLINICAL OPERATIONS MANAGER, MANAGER BASKETBALL
--- NOTE | 2017-12-10 11:22 | CASEMGMT ---
Social Work Note SW received call from Aisha stating that they are unable to accept pt. Referral is still out to [facility] and this SW is waiting to hear back from [facility] if they are able to accept pt or not. SW is waiting for call back from [facility]. Plan: [facility] pending acceptance.
[2017-12-10 12:31] LABS: Bedside Glucose 119 mg/dL (70-110)
[2017-12-10] MEDS: Nystatin Powder 15gm Bottle 1 APPLIC TOPICAL ×2 (14:16→23:49)
--- NOTE | 2017-12-10 14:40 | CASEMGMT ---
Social Work Note SW received call from Joelle at [facility] to have this worker call her back. SW received call from Tish Hollins Patient Care Associate at [facility] to confirm discharge plans. SW placed call and spoke to Joelle at [facility]. Per Joelle they can accept pt and they will begin pre-cert. MEÑO placed call to Tish Hollins ([phone]) to confirm that the plan for pt is to go to SNF after discharge from hospital. MEÑO will continue to follow along and assist with discharge planning. Plan: [facility] pending pre-cert Hannah Carvajal EXECUTIVE PERSONAL ASSISTANT, HVAC FIELD SERVICE TECHNICIAN
[2017-12-10 16:31] LABS: Bedside Glucose 99 mg/dL (70-110)
--- NOTE | 2017-12-10 18:28 | OP.PCM_ITS ---
Report of Operation Date of Procedure: 12/09/17 Pre-Operative Diagnosis: 1. 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 2. Diabetes mellitus. 3. Chronic venous insufficiency with venostasis disease. 4. MRSA. 5. Obesity. 6. Atrial fibrillation on Coumadin. Post-Operative Diagnosis: 1. 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 2. Nonhealing infected MRSA diabetic ulcer abscess right posterior thigh. 3. Nonhealing infected MRSA diabetic ulcer abscess left posterior leg. 4. Nonhealing infected MRSA diabetic ulcer abscess right lateral ankle. 5. Nonhealing infected MRSA diabetic ulcer abscess left medial ankle. 6. Diabetes mellitus. 7. Chronic venous insufficiency with venostasis disease. 8. MRSA. 9. Obesity. 10. Atrial fibrillation on Coumadin. Surgery/Procedure Performed:: 1. Surgical preparation right posterior leg with incision and drainage and excisional debridement nonhealing infected MRSA ulcer abscess (264 cm2). 2. Surgical preparation right posterior thigh with incision and drainage and excisional debridement nonhealing infected MRSA ulcer abscess (112 cm2). 3. Surgical preparation left posterior leg with incision and drainage and excisional debridement nonhealing infected MRSA ulcer abscess ( 216 cm2). 4. Surgical preparation right lateral ankle with incision and drainage and excisional debridement nonhealing infected MRSA ulcer abscess (4 cm2). 5. Surgical preparation left medial ankle with incision and drainage and excisional debridement nonhealing infected MRSA ulcer abscess (4 cm2). Description of Surgical Findings:: The patient is a 57 year old F who is morbidly obese past medical history of diabetes mellitus, chronic atrial fibrillation on Coumadin, chronic venous insufficiency with venostasis who was admitted to the hospital with pain and redness on her posterior legs from abrasion ulcerations that started a week ago after trying to removed dry skin from her legs using a scrub brush. She denies any fever or chills. Emergency room swab from her legs was positive for MRSA PCR was given a dose of IV vancomycin and admitted to the hospital for further management with IV antibiotics and aggressive wound care. Patient was informed of the risks and complications of the procedure including alternatives to surgery. These were discussed with her personally. She voices understanding and wishes to proceed. She understands that without aggressive debridement and management, she is at increased risk of the infection worsening that may lead to an eventual amputation. She is aware of that possibility and wishes to proceed with the current plan of aggressive debridement and management. Size of defect right posterior leg - 12 x 22 x 2 cm. Size of defect right posterior thigh - 14 x 8 x 5 cm. Size of defect left posterior leg - 24 x 9 x 1 cm. Size of defect right lateral ankle - 2 x 2 x 1 cm. Size of defect left medial ankle - 2 x 2 x 1 cm. i&c technician: None Type of Anesthesia:: General Specimen's removed: 1. Nonhealing infected MRSA ulcer abscess right posterior leg and lateral ankle to Pathology and Microbiology. 2. Nonhealing infected MRSA ulcer abscess right posterior thigh to Pathology and Microbiology. 3. Nonhealing infected MRSA ulcer abscess left posterior leg and medial ankle to Pathology and Microbiology. Drains: None. Estimated Blood Loss (mL): 500 ml. Description of Procedure: Patient was taken to OR in supine position and was given IV sedation. She was placed in the lateral position. Due to her large size, anesthesia felt it was too risky to monitor her. So she was placed back in supine position and was placed under general anesthesia. She was once again placed in the lateral position. This exposed the right posterior leg ulcers. Also the nurses had noted yesterday there was another large ulcer on her right posterior thigh with drainage. That ulcer was also exposed. The left posterior leg ulcers were not exposed well enough so after debridement of the right posterior leg ulcers and right posterior thigh ulcer, the patient will be moved into the opposite lateral position to expose the left posterior leg ulcers for debridement. No SCD's were placed as the surgery was on bilateral legs. She is already getting chemoprophylaxis with Coumadin that she is on for atrial fibrillation. Perioperative antibiotics were given intravenously. The right posterior leg ulcers and right posterior thigh ulcer were prepped and draped in the usual fashion. Using xylocaine with epinephrine, the ulcers were infiltrated for postop pain relief. I then proceeded with surgical preparation of these ulcers with incision and drainage. Some pus was seen in the subcutaneous tissue. A lot of fat necrosis was present that was malodorous. Some of the fat necrosis was very hard and calcified. There was extension of the infection to the underlying fascia. The fascia appeared viable without evidence of necrotizing process. A lot of bleeding was encountered that was controlled with hemostasis and occasional 3-0 Vicryl suture ligature. Most of the ulcers were combined into one larger ulcer due to the amount of pus and fat necrosis present. This will make the wound care easier and ultimately less painful. There was one smaller ulcer on the right lateral ankle that was far enough away that I incised and drained it as a separate ulcer. Due to the amount of fat necrosis present, excisional debridement of these ulcers were done. Some of the tissue was sent to Microbiology for culture. The rest of the tissue was sent to Pathology for analysis to rule out carcinoma. The wounds were irrigated with saline. Hemostasis obtained with electrocautery. The wounds were dressed with Mepitel nonadherent dressing followed by Kerlix gauze and Betadine followed by dry Kerlix gauze, ABD pads and a compression KRISTEN wrap around the leg and a compression dressing for the right posterior thigh. The patient was then turned in the other lateral position to expose the left posterior leg ulcers. The ulcers were prepped and draped in the usual fashion. Using xylocaine with epinephrine, the ulcers were infiltrated for postop pain relief. I then proceeded with surgical preparation of these ulcers with incision and drainage. Some pus was seen in the subcutaneous tissue. A lot of fat necrosis was present that was malodorous. Some of the fat necrosis was very hard and calcified. There was extension of the infection to the underlying fascia. The fascia appeared viable without evidence of necrotizing process. A lot of bleeding was encountered that was controlled with hemostasis and occasional 3-0 Vicryl suture ligature. Most of the ulcers were combined into one larger ulcer due to the amount of pus and fat necrosis present. This will make the wound care easier and ultimately less painful. There was one smaller ulcer on the left medial ankle that was far enough away that I incised and drained it as a separate ulcer. Due to the amount of fat necrosis present, excisional debridement of these ulcers were done. Some of the tissue was sent to Microbiology for culture. The rest of the tissue was sent to Pathology for analysis to rule out carcinoma. The wounds were irrigated with saline. Hemostasis obtained with electrocautery. The wounds were dressed with Mepitel nonadherent dressing followed by Kerlix gauze and Betadine followed by dry Kerlix gauze, ABD pads and a compression KRISTEN wrap. Patient tolerated the procedure well. She was sent to PACU in satisfactory condition. She will be sent upstairs for continued postop care. There was some bleeding during the surgery (about 500 ml). Will check a Hgb later today and have a Type and Cross ready in case transfusion is necessary during the postop period. The VAC will be applied tomorrow. Grafts/Implants Used: None. - Complications None. - Admit VTE Documentation VTE Present on Admission: No - She is on Coumadin for atrial fibrillation. VTE Mechan Device Prophylaxis: None - Patient's wounds involve her bilateral legs. She is on Coumadin for atrial fibrillation. VTE Pharm Prophylaxis ordered?: Yes Code Visit Surgery Charges CPT - 81045 ICD-10 - L02.415, E11.622, A49.02, E66.01 [id number] L02.415, E11.622, A49.02, E66.01 [id number] L02.416, E11.622, A49.02, E66.01 [id number] L02.415, E11.622, A49.02, E66.01 [id number] L02.416, E11.622, A49.02, E66.01 [id number] L02.415, L02.416, E11.622, A49.02, E66.01 13793 (5 units) L02.415, L02.416, E11.622, A49.02, E66.01
--- NOTE | 2017-12-10 18:29 | PCM.PN.SRG ---
Subjective: Postop #1 Patient is resting comfortably. VAC applied today. - Physical Exam General: Alert, Oriented x3 HEENT: PERRLA, EOMI Neck: Supple Lungs: Clear to auscultation Cardiovascular: Regular rate, Regular Rhythm Abdomen: Soft, Non-Distended Skin: Ulcer/ Wound - Wounds are stable. No bleeding noted. VAC applied. Neurological: Cranial nerves II-XII grossly intact Psych/Mental Status: Normal Affect, Appropriate Vital Signs Temp Pulse Resp BP Pulse Ox 99.0 F 62 16 121/43 H 89 12/10/17 14:18 12/10/17 14:18 12/10/17 14:18 12/10/17 14:18 12/10/17 14:18 Oxygen Flow Rate (L/min) 3 Oxygen Delivery Method Nasal Cannula Weight: 416 lb 10.778 oz Body Mass Index (BMI) 67.2 Intake and Output for Last 24 Hours 12/08/17 12/09/17 12/10/17 23:59 23:59 23:59 Intake Total 2250 / 2250 960 / 960 Output Total 100 / 100 0 / 0 Balance -100 / -100 2250 / 2250 960 / 960 Microbiology Past 72 Hours 12/09/17 Unknown Gram Stain - Final Tissue - Leg, Right Wound Culture - Preliminary Gram negative taylor Gram positive organism 12/09/17 Unknown Gram Stain - Final Tissue - Leg, Left Wound Culture - Preliminary Gram positive organism 12/09/17 Unknown Gram Stain - Final Tissue - Leg, Right Wound Culture - Preliminary Gram positive organism Laboratory Tests Past 24 Hrs 12/10/17 12/10/17 12/10/17 05:25 05:25 05:25 WBC 9.1 RBC 3.14 L Hgb 8.9 L Hct 29.7 L MCV 94.6 MCH 28.3 MCHC 30.0 L RDW 19.1 H RDW Differential 65.3 H Plt Count 278 MPV 8.9 Differential Comment SCANNED PT 25.4 H INR 2.3 Sodium 142 Potassium 4.7 Chloride 105 Carbon Dioxide 34.0 H Anion Gap 3 L BUN 21 H Creatinine 0.99 Estim Creat Clear Calc 57.28 Est GFR (MDRD) Af Amer 74 Est GFR (MDRD) Non-Af 61 BUN/Creatinine Ratio 21.2 H Glucose 105 Calcium 8.1 L Prealbumin 7.9 L POC Glucose 12/10/17 12/10/17 12/10/17 16:15 12:23 08:27 POC Glucose 99 119 H 115 H 12/09/17 12/09/17 21:55 16:27 POC Glucose 142 H 129 H Medical Necessity - Tobacco Use Smoking Status: Former smoker Assessment/Plan 1. 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 2. Diabetes mellitus. 3. Chronic venous insufficiency with venostasis disease. 4. MRSA. 5. Obesity. 6. Atrial fibrillation on Coumadin. VAC applied today. To be changed three times per week at 150 mmHg continuous suction. Continue KRISTEN wrap for compression. LEAS is placed on hold because of the VAC. Can't place the blood pressure cuffs. Will obtain study as an outpatient after the wound care has been changed from the VAC to Silver dressing changes. PICC line in place. Operative culture shows Gram negative taylor and Gram positive organism for the right posterior leg and Gram positive organism for the left posterior leg and Gram positive organism for the right posterior thigh. Her antibiotics were changed from Vancomycin to Ceftriaxone. After discharge can [facility]up [facility]. If there is a plateau in the healing process, can proceed with delayed closure with skin grafting. Anticipate increased metabolic demands with the infection and the wounds. Prealbumin was very low at 7.9. Continue nutritional supplementation with protein to help the healing process. After surgery, with these complex wounds and the need for IV antibiotics, it will be difficult to manage this at home. I recommend going to an ECF for further care post-discharge.
[2017-12-11] VITALS (14 sets, daily range): BP systolic 91–112; BP diastolic 54–65; PULSE 56–94; RESP 14–20; TEMP 37.2–37.7; O2SAT 93–98
[2017-12-11 00:01] LABS: Bedside Glucose 128 mg/dL (70-110)
[2017-12-11] MEDS: Albuterol 2.5 MG/3 ML VIAL.NEB. INHALATION ×4 (04:13→20:09)
[2017-12-11 06:06] LABS: Hematocrit 27.7 % (37-47); Hemoglobin 8.3 g/dl (12.0-15.0)
[2017-12-11] MEDS: Naloxone 0.4 MG/ML Syringe IV (06:11)
[2017-12-11] MEDS: Budesonide Respules 0.5 MG/2 ML AMPUL.NEB. INHALATION ×2 (06:55→20:09)
[2017-12-11] MEDS: Nystatin Powder 15gm Bottle 1 APPLIC TOPICAL ×3 (07:10→22:19)
[2017-12-11 07:26] LABS: Allen Test POS; Base Excess 8 mmol/L (-2 to +2); Bicarbonate 33.1 mmol/L (22-26); Blood Gas Specimen Type ART; O2 Delivery Device Nasal Can; PO2 66 mmHG (75-100); SITE L Brachial; SO2 91 % (95-99); Time Given 716; Total Carbon Dioxide 35 mmol/L; pCO2 57.1 mmHg (35-45); pH 7.37 (7.35-7.45)
--- NOTE | 2017-12-11 07:43 | PCM.PROGNOTE ---
Subjective: Chief complaint: Follow-up after admission for multiple bilateral nonhealing MRSA infected diabetic posterior leg ulcers/wounds with secondary bacterial infection, right lower extremity cellulitis, status post surgery. Patient seen and examined. Overnight, patient became more lethargic and sleepy, was hypoxic. She was given 1 dose of IV Narcan and she was able to regain her consciousness gradually. When I saw the patient, she was fully alert and oriented. She mentioned that her leg pain is about 5 out of 10 in severity. She thinks that she was very sleepy and lethargic since last night because of IV morphine. At this time, she is afebrile, blood pressure and heart rate are stable, pulse ox is maintained on 3 L. Initially, she was up to 5 L. - Physical Exam General: Alert, Oriented x3, Cooperative, No apparent distress HEENT: Atraumatic, PERRLA, EOMI Oral: Moist Mucosa, No Gingival or Mucosal Lesions/ Ulcerations Neck: Supple, No JVD, Negative Carotid Bruits, Trachea Midline, Thyroid Normal Size and Texture Lungs: Clear to auscultation, No rhonchi, No wheeze, No rales, Diminished Cardiovascular: Regular rate, Regular Rhythm, Normal S1, Normal S2, PMI Normal Abdomen: Bowel Sounds Present, Soft, Non Tender, Non-Distended, No Hepato-splenomegaly, Obese Extremities: No clubbing, No cyanosis, No edema Skin: No rashes, Ulcer/ Wound, - Lymphatic: No Cervical, Supraclavicular, or Inguinal Adenopathy Neurological: Cranial nerves II-XII grossly intact, Neuro grossly intact Psych/Mental Status: Normal Affect, Appropriate, Alert and oriented to time, place, person, mood and affect Vital Signs Temp Pulse Resp BP Pulse Ox 99.0 F 66 16 112/54 L 93 12/11/17 06:16 12/11/17 06:16 12/11/17 06:16 12/11/17 06:16 12/11/17 06:16 Oxygen Flow Rate (L/min) 5 Oxygen Delivery Method Nasal Cannula Weight: 416 lb 10.778 oz Body Mass Index (BMI) 67.2 Intake and Output for Last 24 Hours 12/09/17 12/10/17 12/11/17 23:59 23:59 23:59 Intake Total 2250 / 2250 960 / 960 400 / 400 Output Total 0 / 0 Balance 2250 / 2250 960 / 960 400 / 400 Microbiology Past 72 Hours 12/09/17 Unknown Gram Stain - Final Tissue - Leg, Right Wound Culture - Preliminary Gram negative taylor Gram positive organism 12/09/17 Unknown Gram Stain - Final Tissue - Leg, Left Wound Culture - Preliminary Gram positive organism 12/09/17 Unknown Gram Stain - Final Tissue - Leg, Right Wound Culture - Preliminary Gram positive organism Laboratory Tests Past 24 Hrs 12/09/17 12/11/17 12/11/17 13:30 05:35 07:19 Hgb 8.3 L Hct 27.7 L Specimen Type ART Sample Site L Brachial pH 7.37 Bicarbonate Actual 33.1 H POC Total CO2 35 Base Excess 8 H O2 Saturation 91 L ABG pCO2 57.1 H ABG pO2 66 L Jefferson Test POS O2 Delivery Device Nasal Can Liter Flow 4.0 Blood Gas Notified Whom [facility] Blood Gas Notified Time 716 Crossmatch See Detail POC Glucose 12/10/17 12/10/17 12/10/17 23:47 16:15 12:23 POC Glucose 128 H 99 119 H 12/10/17 08:27 POC Glucose 115 H Medical Necessity - Tobacco Use Smoking Status: Former smoker Assessment/Plan This is a 57 years old female patient resented to the emergency room because of redness and swelling of the right lower extremity, found to have multiple bilateral nonhealing MSSA infected diabetic ulcers/wounds on the posterior aspect of the bilateral lower extremities and right lower extremity cellulitis status post extensive surgery. #1 multiple bilateral nonhealing diabetic MSSA infected leg ulcers/wounds with secondary bacterial infection/right posterior thigh nonhealing diabetic ulcer/abscess/right lower extremity cellulitis: Status post extensive surgery with incision and drainage as well as extensive excisional debridement leaving large defect of the right posterior leg, left posterior leg and right posterior thigh, postoperative day 2. Status post wound VAC insertion to the right and left posterior leg wounds/ulcers. She is on IV Rocephin. Her vital signs are stable, afebrile. Wound culture revealed Proteus mirabilis, MSSA and Streptococcus agalactiae. Blood cultures showed no growth in 48 hours. Surgical specimen culture revealed grams positive organisms and gram-negative rods, final is pending. Plastic surgeon on the case, plan to continue same treatment. #2 encephalopathy: Attributed to overdosing on morphine. Yesterday, patient received up to 8 mg of IV morphine for pain. She received Narcan overnight and this morning, she is alert and oriented ?3. Her oxygen requirement has increased to 5 L but now she is down to 3 L. Plan: DC IV morphine, continue OxyIR and tramadol for pain control. #3 acute on chronic anemia: Due to blood loss during surgery. She does have chronic anemia with baseline hemoglobin has been around 10 g/dL. Today's hemoglobin is 8.3 g/dL. She is asymptomatic, no indication for transfusion. Plan to transfuse if hemoglobin less than 8 g/dL. #4 type 2 diabetes mellitus: Blood sugar stable, continue ADA diet, Accu-Cheks, insulin sliding scale, continue home doses of Levemir. #5 hypertension: Blood pressure has been stable, continue lisinopril, Corgard and Cardizem. #6 chronic A. fib: Heart rate controlled.. Continue digoxin, Cardizem, Corgard for rate control, continue Coumadin for anticoagulate him. INR is 2.3. #7 chronic diastolic CHF: Clinically stable, compensated. Continue Lasix, lisinopril, Corgard. #8 DVT prophylaxis: Coumadin, INR is 2.3. This note was generated with [employer] dictation software. It may contain incorrect words, spelling, and punctuation that were not noted in checking the note before signing. Code Visit Inpatient E&M: 95282 Subs Hosp L2
--- NOTE | 2017-12-11 07:56 | PN_ITS ---
Subjective: Chief complaint: Follow-up after admission for multiple bilateral nonhealing MRSA infected diabetic posterior leg ulcers/wounds with secondary bacterial infection, right lower extremity cellulitis, status post surgery. Patient seen and examined. Overnight, patient became more lethargic and sleepy , was hypoxic. She was given 1 dose of IV Narcan and she was able to regain her consciousness gradually. When I saw the patient, she was fully alert and oriented. She mentioned that her leg pain is about 5 out of 10 in severity. She thinks that she was very sleepy and lethargic since last night because of IV morphine. At this time, she is afebrile, blood pressure and heart rate are stable, pulse ox is maintained on 3 L. Initially, she was up to 5 L. - Physical Exam General: Alert, Oriented x3, Cooperative, No apparent distress HEENT: Atraumatic, PERRLA, EOMI Oral: Moist Mucosa, No Gingival or Mucosal Lesions/ Ulcerations Neck: Supple, No JVD, Negative Carotid Bruits, Trachea Midline, Thyroid Normal Size and Texture Lungs: Clear to auscultation, No rhonchi, No wheeze, No rales, Diminished Cardiovascular: Regular rate, Regular Rhythm, Normal S1, Normal S2, PMI Normal Abdomen: Bowel Sounds Present, Soft, Non Tender, Non-Distended, No Hepato- splenomegaly, Obese Extremities: No clubbing, No cyanosis, No edema Skin: No rashes, Ulcer/ Wound, - Lymphatic: No Cervical, Supraclavicular, or Inguinal Adenopathy Neurological: Cranial nerves II-XII grossly intact, Neuro grossly intact Psych/Mental Status: Normal Affect, Appropriate, Alert and oriented to time, place, person, mood and affect Vital Signs Temp Pulse Resp BP Pulse Ox 99.0 F 66 16 112/54 L 93 12/11/17 06:16 12/11/17 06:16 12/11/17 06:16 12/11/17 06:16 12/11/17 06:16 Oxygen Flow Rate (L/min) 5 Oxygen Delivery Method Nasal Cannula Weight: 416 lb 10.778 oz Body Mass Index (BMI) 67.2 Intake and Output for Last 24 Hours 12/09/17 12/10/17 12/11/17 23:59 23:59 23:59 Intake Total 2250 / 2250 960 / 960 400 / 400 Output Total 0 / 0 Balance 2250 / 2250 960 / 960 400 / 400 Microbiology Past 72 Hours 12/09/17 Unknown Gram Stain - Final Tissue - Leg, Right Wound Culture - Preliminary Gram negative taylor Gram positive organism 12/09/17 Unknown Gram Stain - Final Tissue - Leg, Left Wound Culture - Preliminary Gram positive organism 12/09/17 Unknown Gram Stain - Final Tissue - Leg, Right Wound Culture - Preliminary Gram positive organism Laboratory Tests Past 24 Hrs 12/09/17 12/11/17 12/11/17 13:30 05:35 07:19 Hgb 8.3 L Hct 27.7 L Specimen Type ART Sample Site L Brachial pH 7.37 Bicarbonate Actual 33.1 H POC Total CO2 35 Base Excess 8 H O2 Saturation 91 L ABG pCO2 57.1 H ABG pO2 66 L Jefferson Test POS O2 Delivery Device Nasal Can Liter Flow 4.0 Blood Gas Notified Whom [facility] Blood Gas Notified Time 716 Crossmatch See Detail POC Glucose 12/10/17 12/10/17 12/10/17 23:47 16:15 12:23 POC Glucose 128 H 99 119 H 12/10/17 08:27 POC Glucose 115 H Medical Necessity - Tobacco Use Smoking Status: Former smoker Assessment/Plan This is a 57 years old female patient resented to the emergency room because of redness and swelling of the right lower extremity, found to have multiple bilateral nonhealing MSSA infected diabetic ulcers/wounds on the posterior aspect of the bilateral lower extremities and right lower extremity cellulitis status post extensive surgery. #1 multiple bilateral nonhealing diabetic MSSA infected leg ulcers/wounds with secondary bacterial infection/right posterior thigh nonhealing diabetic ulcer/ abscess/right lower extremity cellulitis: Status post extensive surgery with incision and drainage as well as extensive excisional debridement leaving large defect of the right posterior leg, left posterior leg and right posterior thigh , postoperative day 2. Status post wound VAC insertion to the right and left posterior leg wounds/ulcers. She is on IV Rocephin. Her vital signs are stable , afebrile. Wound culture revealed Proteus mirabilis, MSSA and Streptococcus agalactiae. Blood cultures showed no growth in 48 hours. Surgical specimen culture revealed grams positive organisms and gram-negative rods, final is pending. Plastic surgeon on the case, plan to continue same treatment. #2 encephalopathy: Attributed to overdosing on morphine. Yesterday, patient received up to 8 mg of IV morphine for pain. She received Narcan overnight and this morning, she is alert and oriented ?3. Her oxygen requirement has increased to 5 L but now she is down to 3 L. Plan: DC IV morphine, continue OxyIR and tramadol for pain control. #3 acute on chronic anemia: Due to blood loss during surgery. She does have chronic anemia with baseline hemoglobin has been around 10 g/dL. Today's hemoglobin is 8.3 g/dL. She is asymptomatic, no indication for transfusion. Plan to transfuse if hemoglobin less than 8 g/dL. #4 type 2 diabetes mellitus: Blood sugar stable, continue ADA diet, Accu-Cheks, insulin sliding scale, continue home doses of Levemir. #5 hypertension: Blood pressure has been stable, continue lisinopril, Corgard and Cardizem. #6 chronic A. fib: Heart rate controlled.. Continue digoxin, Cardizem, Corgard for rate control, continue Coumadin for anticoagulate him. INR is 2.3. #7 chronic diastolic CHF: Clinically stable, compensated. Continue Lasix, lisinopril, Corgard. #8 DVT prophylaxis: Coumadin, INR is 2.3. This note was generated with [employer] dictation software. It may contain incorrect words, spelling, and punctuation that were not noted in checking the note before signing. Code Visit Inpatient E&M: 21393 Subs Hosp L2
[2017-12-11 08:21] LABS: Anion Gap 5 (5-15); BUN 30 mg/dL (7-18); BUN/Creat Ratio 25.4 RATIO (10-20); Chloride 101 mmol/L (98-107); Creatinine, Serum 1.18 mg/dL (0.55-1.02); EST Glomerular Filtration Rate 50 mL/min (>60); Est Glom Filt Rate - Afr Amer 60 mL/min (>60); Estimated Creatinine Clearance 48.06 ml/min; Glucose 103 mg/dL (74-106); Potassium 4.8 mmol/L (3.5-5.1); Sodium Level 139 mmol/L (136-145)
[2017-12-11] MEDS: oxyCODONE 5 MG Tablet PO ×3 (08:25→22:20)
[2017-12-11 08:31] LABS: Bedside Glucose 123 mg/dL (70-110)
[2017-12-11] MEDS: Glucerna Shake 120 ML LIQUID PO ×3 (09:26→16:49)
[2017-12-11] MEDS: Furosemide 40 MG Tablet PO ×2 (09:29→16:53)
[2017-12-11] MEDS: Citalopram 40 MG TABLET PO (09:29)
[2017-12-11] MEDS: Digoxin 250 MCG Tablet PO (09:29)
[2017-12-11] MEDS: Gabapentin 400 MG Capsule PO ×4 (09:29→22:20)
[2017-12-11] MEDS: Polyethylene Glycol 3350 17 GM PACKET PO (09:29)
[2017-12-11] MEDS: Lisinopril 10 MG Tablet PO (09:29)
[2017-12-11] MEDS: Nadolol 40 MG Tablet 120 MG PO (09:29)
[2017-12-11] MEDS: dilTIAZem CD 120 MG Capsule PO (09:30)
[2017-12-11] MEDS: Fluticasone 0.05% 1 SPRAY NASAL.SRY 2 SPRAY NASAL (09:39)
[2017-12-11 11:46] LABS: Bedside Glucose 147 mg/dL (70-110)
[2017-12-11 16:50] LABS: Bedside Glucose 75 mg/dL (70-110)
--- NOTE | 2017-12-11 18:41 | PCM.PN.SRG ---
Subjective: Postop #2 Patient has wound pain. VAC in place. - Physical Exam General: Alert, Oriented x3 HEENT: PERRLA, EOMI Neck: Supple Lungs: Clear to auscultation Cardiovascular: Regular rate, Regular Rhythm Abdomen: Soft, Non-Distended Skin: Ulcer/ Wound - VAC in place. Minimal drainage in the canister. Neurological: Cranial nerves II-XII grossly intact Psych/Mental Status: Normal Affect, Appropriate Vital Signs Temp Pulse Resp BP Pulse Ox 99.5 F H 60 18 112/55 L 93 12/11/17 16:53 12/11/17 16:53 12/11/17 16:53 12/11/17 16:53 12/11/17 16:53 Oxygen Flow Rate (L/min) 3 Oxygen Delivery Method Nasal Cannula Weight: 416 lb 10.778 oz Body Mass Index (BMI) 67.2 Intake and Output for Last 24 Hours 12/09/17 12/10/17 12/11/17 23:59 23:59 23:59 Intake Total 2250 / 2250 960 / 960 1350 / 1350 Output Total 0 / 0 Balance 2250 / 2250 960 / 960 1350 / 1350 Microbiology Past 72 Hours 12/09/17 Unknown Gram Stain - Final Tissue - Leg, Right Wound Culture - Preliminary Proteus mirabilis Staphylococcus aureus Anaerobic Culture - Preliminary Checking for anaerobes, further studies to follow. 12/09/17 Unknown Gram Stain - Final Tissue - Leg, Left Wound Culture - Preliminary Staphylococcus aureus Streptococcus agalactiae (B) Gram negative taylor Anaerobic Culture - Preliminary Checking for anaerobes, further studies to follow. 12/09/17 Unknown Gram Stain - Final Tissue - Leg, Right Wound Culture - Preliminary Staphylococcus aureus Streptococcus agalactiae (B) Anaerobic Culture - Preliminary Checking for anaerobes, further studies to follow. Laboratory Tests Past 24 Hrs 12/09/17 12/11/17 12/11/17 13:30 05:35 07:19 Hgb 8.3 L Hct 27.7 L Specimen Type ART Sample Site L Brachial pH 7.37 Bicarbonate Actual 33.1 H POC Total CO2 35 Base Excess 8 H O2 Saturation 91 L ABG pCO2 57.1 H ABG pO2 66 L Jefferson Test POS O2 Delivery Device Nasal Can Liter Flow 4.0 Blood Gas Notified Whom [facility] Blood Gas Notified Time 716 Sodium Potassium Chloride Carbon Dioxide Anion Gap BUN Creatinine Estim Creat Clear Calc Est GFR (MDRD) Af Amer Est GFR (MDRD) Non-Af BUN/Creatinine Ratio Glucose Calcium Crossmatch See Detail 12/11/17 07:45 Hgb Hct Specimen Type Sample Site pH Bicarbonate Actual POC Total CO2 Base Excess O2 Saturation ABG pCO2 ABG pO2 Jefferson Test O2 Delivery Device Liter Flow Blood Gas Notified Whom Blood Gas Notified Time Sodium 139 Potassium 4.8 Chloride 101 Carbon Dioxide 33.0 H Anion Gap 5 BUN 30 H Creatinine 1.18 H Estim Creat Clear Calc 48.06 Est GFR (MDRD) Af Amer 60 Est GFR (MDRD) Non-Af 50 L BUN/Creatinine Ratio 25.4 H Glucose 103 Calcium 8.0 L Crossmatch POC Glucose 12/11/17 12/11/17 12/11/17 16:43 11:41 08:18 POC Glucose 75 147 H 123 H 12/10/17 23:47 POC Glucose 128 H Medical Necessity - Tobacco Use Smoking Status: Former smoker Assessment/Plan 1. 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 2. Diabetes mellitus. 3. Chronic venous insufficiency with venostasis disease. 4. MRSA. 5. Obesity. 6. Atrial fibrillation on Coumadin. VAC in place. To be changed three times per week at 150 mmHg continuous suction. Continue KRISTEN wrap for compression. LEAS is placed on hold because of the VAC. Can't place the blood pressure cuffs. Will obtain study as an outpatient after the wound care has been changed from the VAC to Silver dressing changes. PICC line in place. Operative culture shows Proteus mirabilis and Staphylococcus aureus for the right posterior leg and Staphylococcus aureus and Streptococcus agalactiae and Gram negative taylor for the left posterior leg and Staphylococcus aureus and Streptococcus agalactiae for the right posterior thigh. She is currently on Ceftriaxone. The sensitivity for the Staphylococcus aureus is pending. The initial swab for MRSA was positive preop. If the sensitivity shows that the Staph is sensitive and not resistant, then can discharge on Ceftriaxone. If the sensitivity shows that the Staph is resistant, then would need to restart the Vancomycin. Her Hgb has stabilized after the surgery. Today it is 8.3. No need for transfusion at this time. Will discharge her on Iron supplementation. After discharge can followup at [facility]. If there is a plateau in the healing process, can proceed with delayed closure with skin grafting. Anticipate increased metabolic demands with the infection and the wounds. Prealbumin was very low at 7.9. Continue nutritional supplementation with protein to help the healing process. After surgery, with these complex wounds and the need for IV antibiotics, it will be difficult to manage this at home. I recommend going to an ECF for further care post-discharge.
[2017-12-11 22:35] LABS: Bedside Glucose 86 mg/dL (70-110)
[2017-12-12] VITALS (13 sets, daily range): BP systolic 99–147; BP diastolic 50–80; PULSE 58–98; RESP 16–19; TEMP 36.6–37.2; O2SAT 92–98
[2017-12-12] MEDS: oxyCODONE 5 MG Tablet PO ×3 (05:38→21:18)
[2017-12-12] MEDS: 0.9% NaCl Peripheral Flush Adult/Peds IV ×2 (05:39→08:09)
[2017-12-12] MEDS: Nystatin Powder 15gm Bottle 1 APPLIC TOPICAL ×3 (05:39→21:20)
[2017-12-12 05:46] LABS: Bedside Glucose 88 mg/dL (70-110)
[2017-12-12 06:12] LABS: Anion Gap 5 (5-15); BUN 32 mg/dL (7-18); BUN/Creat Ratio 34.6 RATIO (10-20); Calcium,Total 8.3 mg/dL (8.5-10.1); Chloride 101 mmol/L (98-107); Creatinine, Serum 0.93 mg/dL (0.55-1.02); EST Glomerular Filtration Rate 66 mL/min (>60); Est Glom Filt Rate - Afr Amer 80 mL/min (>60); Estimated Creatinine Clearance 60.97 ml/min; Glucose 82 mg/dL (74-106); Potassium 4.5 mmol/L (3.5-5.1); Sodium Level 141 mmol/L (136-145)
[2017-12-12 06:15] LABS: International Normalized Ratio 2.7; Prothrombin Time (Protime)PT. 29.2 SECONDS (11.7-14.9)
[2017-12-12 06:20] LABS: Absolute Lymphocyte Count 1.81 X10^3/ul (0.83-4.51); Absolute Neutrophil Count 4.6 X10^3/uL (2.0-7.7); Basophil# 0.01 X10^3/uL; Basophil% 0.1 % (0-1); Eosinophil# 0.37 X10^3/uL; Hematocrit 27.5 % (37-47); Hemoglobin 8.2 g/dl (12.0-15.0); Lymphocyte # 1.81 X10^3/ul (4.0); Lymphocyte % 24.3 % (19-41); Mean Corp Hgb Conc 29.8 g/gl (32-36); Mean Corpuscular Hgb 28.5 pg (27.0-32.0); Mean Corpuscular Volume 95.5 fL (81-99); Monocyte% 8.1 % (0-10); Neutrophil # 4.64 X10^3/uL (2.7-7.7); Neutrophil % 62.2 % (47-70); Platelet Count 245 K/mm3 (150-450); RBC Distribution Width CV 19.1 % (11.6-14.6); RBC Distribution Width SD 66.6 fl (35.1-43.9); Red Blood Count 2.88 M/mm3 (4.2-5.4); White Blood Count 7.5 K/mm3 (4.4-11.0)
[2017-12-12 06:25] LABS: Differential Indicated SCAN CRITERIA MET; POSITIVE COUNT NO; POSITIVE DIFFERENTIAL NO; POSITIVE MORPHOLOGY YES
[2017-12-12 07:02] LABS: Anisocytosis 2+; Differential Comment SCANNED
[2017-12-12] MEDS: Albuterol 2.5 MG/3 ML VIAL.NEB. INHALATION ×3 (07:13→19:55)
[2017-12-12] MEDS: Budesonide Respules 0.5 MG/2 ML AMPUL.NEB. INHALATION ×2 (07:14→19:54)
[2017-12-12] MEDS: Glucerna Shake 120 ML LIQUID PO ×3 (07:21→17:19)
[2017-12-12 07:51] LABS: Bedside Glucose 96 mg/dL (70-110)
[2017-12-12] MEDS: Furosemide 40 MG/4 ML Vial IV (08:09)
--- NOTE | 2017-12-12 08:22 | PCM.PROGNOTE ---
Subjective: Chief complaint: Follow-up after admission for multiple bilateral nonhealing MSSA infected diabetic posterior leg ulcers/wounds with secondary bacterial infection, right lower extremity cellulitis, status post surgery. Patient seen and examined. No acute events overnight. Today, she mentioned that her right leg pain is manageable, getting better. She denied chest pain or shortness of breath. Her oxygen requirement increased to 3.5 L, normal she is at 2 L at night at home. Other vital signs are stable, afebrile. - Physical Exam General: Alert, Oriented x3, Cooperative, No apparent distress HEENT: Atraumatic, PERRLA, EOMI Oral: Moist Mucosa, No Gingival or Mucosal Lesions/ Ulcerations Neck: Supple, No JVD, Negative Carotid Bruits, Trachea Midline, Thyroid Normal Size and Texture Lungs: Clear to auscultation, No rhonchi, No wheeze, Diminished, - - Decreased breath sounds at the bases, faint crackles basally. Cardiovascular: Regular rate, Regular Rhythm, Normal S1, Normal S2, PMI Normal Abdomen: Bowel Sounds Present, Soft, Non Tender, Non-Distended, No Hepato-splenomegaly, Obese Extremities: No clubbing, No cyanosis, Edema - Nonpitting edema. Skin: No rashes, Ulcer/ Wound Lymphatic: No Cervical, Supraclavicular, or Inguinal Adenopathy Neurological: Cranial nerves II-XII grossly intact, Neuro grossly intact Psych/Mental Status: Normal Affect, Appropriate, Alert and oriented to time, place, person, mood and affect Vital Signs Temp Pulse Resp BP Pulse Ox 97.9 F 68 16 147/72 H 97 12/12/17 07:55 12/12/17 07:55 12/12/17 07:55 12/12/17 07:55 12/12/17 07:55 Oxygen Flow Rate (L/min) 3.5 Oxygen Delivery Method Nasal Cannula Weight: 416 lb 10.778 oz Body Mass Index (BMI) 67.2 Intake and Output for Last 24 Hours 12/10/17 12/11/17 12/12/17 23:59 23:59 23:59 Intake Total 960 / 960 1350 / 1350 340 / 340 Output Total 0 / 0 Balance 960 / 960 1350 / 1350 340 / 340 Microbiology Past 72 Hours 12/09/17 Unknown Gram Stain - Final Tissue - Leg, Right Wound Culture - Preliminary Proteus mirabilis Staphylococcus aureus Anaerobic Culture - Preliminary Checking for anaerobes, further studies to follow. 12/09/17 Unknown Gram Stain - Final Tissue - Leg, Left Wound Culture - Preliminary Staphylococcus aureus Streptococcus agalactiae (B) Gram negative taylor Anaerobic Culture - Preliminary Checking for anaerobes, further studies to follow. 12/09/17 Unknown Gram Stain - Final Tissue - Leg, Right Wound Culture - Preliminary Staphylococcus aureus Streptococcus agalactiae (B) Anaerobic Culture - Preliminary Checking for anaerobes, further studies to follow. Laboratory Tests Past 24 Hrs 12/12/17 12/12/17 12/12/17 05:32 05:33 05:33 WBC 7.5 RBC 2.88 L Hgb 8.2 L Hct 27.5 L MCV 95.5 MCH 28.5 MCHC 29.8 L RDW 19.1 H RDW Differential 66.6 H Plt Count 245 MPV 9.0 Immature Gran % (Auto) 0.300 Neut % (Auto) 62.2 Lymph % (Auto) 24.3 Whiteside % (Auto) 8.1 Eos % (Auto) 5.0 Baso % (Auto) 0.1 Absolute Neuts (auto) 4.6 Absolute Lymphs (auto) 1.81 Total Counted Not Reportable Differential Comment SCANNED Anisocytosis 2+ PT 29.2 H INR 2.7 Sodium 141 Potassium 4.5 Chloride 101 Carbon Dioxide 35.0 H Anion Gap 5 BUN 32 H Creatinine 0.93 Estim Creat Clear Calc 60.97 Est GFR (MDRD) Af Amer 80 Est GFR (MDRD) Non-Af 66 BUN/Creatinine Ratio 34.6 H Glucose 82 Calcium 8.3 L POC Glucose 12/12/17 12/12/17 12/11/17 07:45 05:32 22:22 POC Glucose 96 88 86 12/11/17 12/11/17 12/11/17 16:43 11:41 08:18 POC Glucose 75 147 H 123 H Medical Necessity - Tobacco Use Smoking Status: Former smoker Assessment/Plan This is a 57 years old female patient resented to the emergency room because of redness and swelling of the right lower extremity, found to have multiple bilateral nonhealing MSSA infected diabetic ulcers/wounds on the posterior aspect of the bilateral lower extremities and right lower extremity cellulitis status post extensive surgery. #1 multiple bilateral nonhealing diabetic MSSA infected leg ulcers/wounds with secondary bacterial infection/right posterior thigh nonhealing diabetic ulcer/abscess/right lower extremity cellulitis: Status post extensive surgery with incision and drainage as well as extensive excisional debridement leaving large defect of the right posterior leg, left posterior leg and right posterior thigh, postoperative day 3. Status post wound VAC insertion to the right and left posterior leg wounds/ulcers. She is on IV Rocephin. Her vital signs are stable, afebrile. Wound culture revealed Proteus mirabilis, MSSA and Streptococcus agalactiae. Blood cultures showed no growth in 48 hours. Surgical specimen culture revealed staph aureus and Proteus, awaiting final result. Plastic surgeon on the case, plan to continue same treatment. #2 encephalopathy: Attributed to overdosing on morphine. Take, she is alert and oriented ?3. No focal deficit. IV morphine discontinued. Her pain is manageable on OxyIR and tramadol. #3 acute on chronic anemia: Due to blood loss during surgery. She does have chronic anemia with baseline hemoglobin has been around 10 g/dL. Today's hemoglobin is 8.2 g/dL. She is asymptomatic, no indication for transfusion. Plan to transfuse if hemoglobin less than 8 g/dL. #4 type 2 diabetes mellitus: Blood sugar stable, continue ADA diet, Accu-Cheks, insulin sliding scale, continue home doses of Levemir. #5 hypertension: Blood pressure has been stable, continue lisinopril, Corgard and Cardizem. #6 chronic A. fib: Heart rate controlled.. Continue digoxin, Cardizem, Corgard for rate control, continue Coumadin for anticoagulate him. INR is 2.3. #7 chronic diastolic CHF: Clinically stable, compensated. Continue Lasix, lisinopril, Corgard. #8 DVT prophylaxis: Coumadin, INR is 2.7. This note was generated with [employer] dictation software. It may contain incorrect words, spelling, and punctuation that were not noted in checking the note before signing. Code Visit Inpatient E&M: 07753 Subs Hosp L2
--- NOTE | 2017-12-12 08:25 | PN_ITS ---
Subjective: Chief complaint: Follow-up after admission for multiple bilateral nonhealing MSSA infected diabetic posterior leg ulcers/wounds with secondary bacterial infection, right lower extremity cellulitis, status post surgery. Patient seen and examined. No acute events overnight. Today, she mentioned that her right leg pain is manageable, getting better. She denied chest pain or shortness of breath. Her oxygen requirement increased to 3.5 L, normal she is at 2 L at night at home. Other vital signs are stable, afebrile. - Physical Exam General: Alert, Oriented x3, Cooperative, No apparent distress HEENT: Atraumatic, PERRLA, EOMI Oral: Moist Mucosa, No Gingival or Mucosal Lesions/ Ulcerations Neck: Supple, No JVD, Negative Carotid Bruits, Trachea Midline, Thyroid Normal Size and Texture Lungs: Clear to auscultation, No rhonchi, No wheeze, Diminished, - - Decreased breath sounds at the bases, faint crackles basally. Cardiovascular: Regular rate, Regular Rhythm, Normal S1, Normal S2, PMI Normal Abdomen: Bowel Sounds Present, Soft, Non Tender, Non-Distended, No Hepato- splenomegaly, Obese Extremities: No clubbing, No cyanosis, Edema - Nonpitting edema. Skin: No rashes, Ulcer/ Wound Lymphatic: No Cervical, Supraclavicular, or Inguinal Adenopathy Neurological: Cranial nerves II-XII grossly intact, Neuro grossly intact Psych/Mental Status: Normal Affect, Appropriate, Alert and oriented to time, place, person, mood and affect Vital Signs Temp Pulse Resp BP Pulse Ox 97.9 F 68 16 147/72 H 97 12/12/17 07:55 12/12/17 07:55 12/12/17 07:55 12/12/17 07:55 12/12/17 07:55 Oxygen Flow Rate (L/min) 3.5 Oxygen Delivery Method Nasal Cannula Weight: 416 lb 10.778 oz Body Mass Index (BMI) 67.2 Intake and Output for Last 24 Hours 12/10/17 12/11/17 12/12/17 23:59 23:59 23:59 Intake Total 960 / 960 1350 / 1350 340 / 340 Output Total 0 / 0 Balance 960 / 960 1350 / 1350 340 / 340 Microbiology Past 72 Hours 12/09/17 Unknown Gram Stain - Final Tissue - Leg, Right Wound Culture - Preliminary Proteus mirabilis Staphylococcus aureus Anaerobic Culture - Preliminary Checking for anaerobes, further studies to follow. 12/09/17 Unknown Gram Stain - Final Tissue - Leg, Left Wound Culture - Preliminary Staphylococcus aureus Streptococcus agalactiae (B) Gram negative taylor Anaerobic Culture - Preliminary Checking for anaerobes, further studies to follow. 12/09/17 Unknown Gram Stain - Final Tissue - Leg, Right Wound Culture - Preliminary Staphylococcus aureus Streptococcus agalactiae (B) Anaerobic Culture - Preliminary Checking for anaerobes, further studies to follow. Laboratory Tests Past 24 Hrs 12/12/17 12/12/17 12/12/17 05:32 05:33 05:33 WBC 7.5 RBC 2.88 L Hgb 8.2 L Hct 27.5 L MCV 95.5 MCH 28.5 MCHC 29.8 L RDW 19.1 H RDW Differential 66.6 H Plt Count 245 MPV 9.0 Immature Gran % (Auto) 0.300 Neut % (Auto) 62.2 Lymph % (Auto) 24.3 [place] % (Auto) 8.1 Eos % (Auto) 5.0 Baso % (Auto) 0.1 Absolute Neuts (auto) 4.6 Absolute Lymphs (auto) 1.81 Total Counted Not Reportable Differential Comment SCANNED Anisocytosis 2+ PT 29.2 H INR 2.7 Sodium 141 Potassium 4.5 Chloride 101 Carbon Dioxide 35.0 H Anion Gap 5 BUN 32 H Creatinine 0.93 Estim Creat Clear Calc 60.97 Est GFR (MDRD) Af Amer 80 Est GFR (MDRD) Non-Af 66 BUN/Creatinine Ratio 34.6 H Glucose 82 Calcium 8.3 L POC Glucose 12/12/17 12/12/17 12/11/17 07:45 05:32 22:22 POC Glucose 96 88 86 12/11/17 12/11/17 12/11/17 16:43 11:41 08:18 POC Glucose 75 147 H 123 H Medical Necessity - Tobacco Use Smoking Status: Former smoker Assessment/Plan This is a 57 years old female patient resented to the emergency room because of redness and swelling of the right lower extremity, found to have multiple bilateral nonhealing MSSA infected diabetic ulcers/wounds on the posterior aspect of the bilateral lower extremities and right lower extremity cellulitis status post extensive surgery. #1 multiple bilateral nonhealing diabetic MSSA infected leg ulcers/wounds with secondary bacterial infection/right posterior thigh nonhealing diabetic ulcer/ abscess/right lower extremity cellulitis: Status post extensive surgery with incision and drainage as well as extensive excisional debridement leaving large defect of the right posterior leg, left posterior leg and right posterior thigh , postoperative day 3. Status post wound VAC insertion to the right and left posterior leg wounds/ulcers. She is on IV Rocephin. Her vital signs are stable , afebrile. Wound culture revealed Proteus mirabilis, MSSA and Streptococcus agalactiae. Blood cultures showed no growth in 48 hours. Surgical specimen culture revealed staph aureus and Proteus, awaiting final result. Plastic surgeon on the case, plan to continue same treatment. #2 encephalopathy: Attributed to overdosing on morphine. Take, she is alert and oriented ?3. No focal deficit. IV morphine discontinued. Her pain is manageable on OxyIR and tramadol. #3 acute on chronic anemia: Due to blood loss during surgery. She does have chronic anemia with baseline hemoglobin has been around 10 g/dL. Today's hemoglobin is 8.2 g/dL. She is asymptomatic, no indication for transfusion. Plan to transfuse if hemoglobin less than 8 g/dL. #4 type 2 diabetes mellitus: Blood sugar stable, continue ADA diet, Accu-Cheks, insulin sliding scale, continue home doses of Levemir. #5 hypertension: Blood pressure has been stable, continue lisinopril, Corgard and Cardizem. #6 chronic A. fib: Heart rate controlled.. Continue digoxin, Cardizem, Corgard for rate control, continue Coumadin for anticoagulate him. INR is 2.3. #7 chronic diastolic CHF: Clinically stable, compensated. Continue Lasix, lisinopril, Corgard. #8 DVT prophylaxis: Coumadin, INR is 2.7. This note was generated with [employer] dictation software. It may contain incorrect words, spelling, and punctuation that were not noted in checking the note before signing. Code Visit Inpatient E&M: 47686 Subs Hosp L2
[2017-12-12] MEDS: Lisinopril 10 MG Tablet PO (10:39)
[2017-12-12] MEDS: Polyethylene Glycol 3350 17 GM PACKET PO (10:39)
[2017-12-12] MEDS: Digoxin 250 MCG Tablet PO (10:39)
[2017-12-12] MEDS: dilTIAZem CD 120 MG Capsule PO (10:40)
[2017-12-12] MEDS: Fluticasone 0.05% 1 SPRAY NASAL.SRY 2 SPRAY NASAL (10:40)
[2017-12-12] MEDS: Gabapentin 400 MG Capsule PO ×4 (10:40→21:18)
[2017-12-12] MEDS: Nadolol 40 MG Tablet 120 MG PO (10:40)
[2017-12-12] MEDS: Furosemide 40 MG Tablet PO ×2 (10:40→17:19)
[2017-12-12] MEDS: Citalopram 40 MG TABLET PO (10:40)
[2017-12-12 12:06] LABS: Bedside Glucose 113 mg/dL (70-110)
[2017-12-12] MEDS: Iron Polysaccharide Complex 150 MG CAPSULE PO (13:00)
[2017-12-12 16:55] LABS: Bedside Glucose 154 mg/dL (70-110)
[2017-12-12 21:26] LABS: Bedside Glucose 154 mg/dL (70-110)
[2017-12-13] VITALS (12 sets, daily range): BP systolic 108–138; BP diastolic 58–72; PULSE 70–99; RESP 19–20; TEMP 36.7–37.1; O2SAT 2–97
[2017-12-13] MEDS: Nystatin Powder 15gm Bottle 1 APPLIC TOPICAL ×3 (05:34→21:04)
[2017-12-13] MEDS: 0.9% NaCl Peripheral Flush Adult/Peds IV (06:04)
[2017-12-13] MEDS: oxyCODONE 5 MG Tablet PO ×2 (06:20→15:01)
[2017-12-13 06:30] LABS: Absolute Lymphocyte Count 1.53 X10^3/ul (0.83-4.51); Absolute Neutrophil Count 4.5 X10^3/uL (2.0-7.7); Eosinophils% 4.3 % (0-5); Hematocrit 28.5 % (37-47); Hemoglobin 8.4 g/dl (12.0-15.0); Lymphocyte # 1.53 X10^3/ul (4.0); Lymphocyte % 22.1 % (19-41); Mean Corp Hgb Conc 29.5 g/gl (32-36); Mean Corpuscular Hgb 28.2 pg (27.0-32.0); Mean Corpuscular Volume 95.6 fL (81-99); Mean Platelet Vol. 9.1 fl (6.2-12.0); Monocyte# 0.53 X10^3/uL; Monocyte% 7.7 % (0-10); Neutrophil # 4.54 X10^3/uL (2.7-7.7); Neutrophil % 65.6 % (47-70); Platelet Count 270 K/mm3 (150-450); RBC Distribution Width SD 65.7 fl (35.1-43.9); Red Blood Count 2.98 M/mm3 (4.2-5.4); White Blood Count 6.9 K/mm3 (4.4-11.0)
[2017-12-13 06:43] LABS: Differential Indicated SCAN CRITERIA MET; POSITIVE COUNT NO; POSITIVE DIFFERENTIAL NO; POSITIVE MORPHOLOGY YES
[2017-12-13 06:50] LABS: International Normalized Ratio 2.8; Prothrombin Time (Protime)PT. 29.9 SECONDS (11.7-14.9)
[2017-12-13 07:05] LABS: Differential Comment SCANNED
[2017-12-13 07:06] LABS: Anisocytosis 3+
[2017-12-13] MEDS: Albuterol 2.5 MG/3 ML VIAL.NEB. INHALATION ×2 (07:15→12:49)
[2017-12-13] MEDS: Budesonide Respules 0.5 MG/2 ML AMPUL.NEB. INHALATION (07:15)
--- NOTE | 2017-12-13 08:04 | PN_ITS ---
Subjective: Patient was seen and examined. No new complaints. Denies any fever or chills. No acute events according to nursing. Waiting on precertification for discharge to the [facility] facility. Objective: Physical Exam General: Alert, Oriented x3, Cooperative, No apparent distress HEENT: Atraumatic, PERRLA, EOMI Oral: Moist Mucosa, No Gingival or Mucosal Lesions/ Ulcerations Neck: Supple, No JVD, Negative Carotid Bruits, Trachea Midline, Thyroid Normal Size and Texture Lungs: Clear to auscultation, No rhonchi, No wheeze, Diminished, - - Decreased breath sounds at the bases, faint crackles basally. Cardiovascular: Regular rate, Regular Rhythm, Normal S1, Normal S2, PMI Normal Abdomen: Bowel Sounds Present, Soft, Non Tender, Non-Distended, No Hepato- splenomegaly, Obese Extremities: No clubbing, No cyanosis, Edema - Nonpitting edema. Skin: No rashes, Ulcer/ Wound Lymphatic: No Cervical, Supraclavicular, or Inguinal Adenopathy Neurological: Cranial nerves II-XII grossly intact, Neuro grossly intact Vitals/I&O's: Vital Signs Temp Pulse Resp BP Pulse Ox 98.6 F 81 19 H 133/72 H 94 12/13/17 02:00 12/13/17 04:09 12/13/17 02:00 12/13/17 02:00 12/13/17 02:00 Oxygen Flow Rate (L/min) 1 Oxygen Delivery Method Nasal Cannula Weight: 189 kg Body Mass Index (BMI) 67.2 Intake and Output for Last 24 Hours 12/11/17 12/12/17 12/13/17 23:59 23:59 23:59 Intake Total 1350 / 1350 2040 / 2040 750 / 750 Output Total 450 / 450 650 / 650 Balance 1350 / 1350 1590 / 1590 100 / 100 Microbiology Past 72 Hours 12/09/17 Unknown Tissue - Leg, Left Gram Stain - Final 12/09/17 Unknown Tissue - Leg, Left Wound Culture - Final Meth. resistant Staph. aureus Streptococcus agalactiae (B) Proteus mirabilis 12/09/17 Unknown Tissue - Leg, Left Anaerobic Culture - Preliminary Checking for anaerobes, further studies to follow. 12/09/17 Unknown Tissue - Leg, Right Gram Stain - Final 12/09/17 Unknown Tissue - Leg, Right Wound Culture - Final Meth. resistant Staph. aureus Streptococcus agalactiae (B) 12/09/17 Unknown Tissue - Leg, Right Anaerobic Culture - Preliminary Checking for anaerobes, further studies to follow. 12/09/17 Unknown Tissue - Leg, Right Gram Stain - Final 12/09/17 Unknown Tissue - Leg, Right Wound Culture - Preliminary Proteus mirabilis Staphylococcus aureus 12/09/17 Unknown Tissue - Leg, Right Anaerobic Culture - Preliminary Checking for anaerobes, further studies to follow. Laboratory Results 12/09/17 13:30: Crossmatch See Detail 12/12/17 11:56: POC Glucose 113 H 12/12/17 16:48: POC Glucose 154 H 12/12/17 21:17: POC Glucose 154 H 12/13/17 06:00: WBC 6.9, RBC 2.98 L, Hgb 8.4 L, Hct 28.5 L, MCV 95.6, MCH 28.2, MCHC 29.5 L, RDW 19.0 H, RDW Differential 65.7 H, Plt Count 270, MPV 9.1, Immature Gran % (Auto) 0.300, Neut % (Auto) 65.6, Lymph % (Auto) 22.1, [place] % ( Auto) 7.7, Eos % (Auto) 4.3, Baso % (Auto) 0.0, Absolute Neuts (auto) 4.5, Absolute Lymphs (auto) 1.53, Total Counted Not Reportable, Differential Comment SCANNED, Anisocytosis 3+ 12/13/17 06:00: PT 29.9 H, INR 2.8 Current Medications Albuterol Sulfate (Ventolin Aerosols) 2.5 mg INHALATION Q4H PRN PRN PRN Reason: sob Last Admin: 12/11/17 04:13 Dose: 2.5 mg Albuterol Sulfate (Ventolin Aerosols) 2.5 mg INHALATION Q6HWA.RT FRED Last Admin: 12/13/17 07:15 Dose: 2.5 mg Budesonide (Pulmicort Aerosol) 0.5 mg INHALATION Q12H.RT FRED Last Admin: 12/13/17 07:15 Dose: 0.5 mg Citalopram Hydrobromide (Celexa) 40 mg PO DAILY [facility] Last Admin: 12/12/17 10:40 Dose: 40 mg Collagenase (Santyl) 1 applic TOPICAL DAILY FRED PRN Reason: Protocol Last Admin: 12/12/17 13:05 Dose: Not Given Digoxin (Lanoxin) 250 mcg PO DAILY [facility] Last Admin: 12/12/17 10:39 Dose: 250 mcg Diltiazem HCl (Cardizem Cd) 120 mg PO DAILY [facility] Last Admin: 12/12/17 10:40 Dose: 120 mg Emollient Ointment (Eucerin Intensive Repair) 1 applic TOPICAL 4X/DAY PRN PRN; Protocol PRN Reason: DRY SKIN Fluticasone Propionate (Flonase Nasal [place]) 2 spray NASAL DAILY [facility] Last Admin: 12/12/17 10:40 Dose: 2 spray Furosemide (Lasix) 40 mg PO BIDLX [facility] Last Admin: 12/12/17 17:19 Dose: 40 mg Gabapentin (Neurontin) 400 mg PO 4X/DAY [facility] Last Admin: 12/12/17 21:18 Dose: 400 mg Ceftriaxone Sodium 2 gm/ (Sodium Chloride) 50 mls @ 100 mls/hr IV Q24 [facility] Last Admin: 12/12/17 10:39 Dose: 100 mls/hr Insulin Aspart (Novolog Flexpen (Bk)) 14 units SC TIDCM [facility] Last Admin: 12/12/17 17:25 Dose: 14 units Insulin Detemir (Levemir (Bkc)) 46 units SC QHS [facility] Last Admin: 12/12/17 21:18 Dose: 46 units Lisinopril (Zestril) 10 mg PO DAILY [facility] Last Admin: 12/12/17 10:39 Dose: 10 mg Lorazepam (Ativan) 1 mg PO TID PRN PRN PRN Reason: ANXIETY Last Admin: 12/09/17 23:37 Dose: 1 mg Magnesium Hydroxide (Milk Of Magnesia) 30 ml PO DAILY PRN PRN PRN Reason: Constipation Nadolol (Corgard) 120 mg PO DAILY [facility] Last Admin: 12/12/17 10:40 Dose: 120 mg Nutritional Formula (Josafat - [place] Flavor) 1 packet PO BIDCM [facility] Last Admin: 12/12/17 17:19 Dose: 1 packet Nutritional Formula (Lactose Free) (Glucerna Shake) 120 ml PO TIDCM [facility] Last Admin: 12/12/17 17:19 Dose: 120 ml Nystatin (Mycostatin Powder) 1 applic TOPICAL TID [facility] PRN Reason: Protocol Last Admin: 12/13/17 05:34 Dose: 1 applicatio Ondansetron HCl (Zofran) 8 mg IV Q6H PRN PRN PRN Reason: NAUSEA Oxycodone HCl (Oxyir) 5 - 10 mg PO Q6H PRN PRN PRN Reason: SEVERE PAIN (6-10/10) Last Admin: 12/13/17 06:20 Dose: 10 mg Polyethylene Glycol (Miralax) 17 gm PO DAILY [facility] Last Admin: 12/12/17 10:39 Dose: 17 gm Polysaccharide Iron Complex (Ferrex 150) [facility] Last Admin: 12/12/17 13:00 Dose: 150 mg Sodium Chloride () 5 - 30 ml IV UD PRN PRN Reason: SALINE FLUSH Last Admin: 12/13/17 06:04 Dose: 30 ml Tramadol HCl (Ultram) 100 mg PO Q6H PRN PRN PRN Reason: MODERATE PAIN (4-5/10) Last Admin: 12/08/17 01:09 Dose: 100 mg Warfarin Sodium (Coumadin (Pbkc)) 10 mg PO SuMoWeFr@1700 [facility] Last Admin: 12/12/17 17:19 Dose: 10 mg Warfarin Sodium (Coumadin (Pbkc)) 10 mg PO TuThSa@1700 [facility] Last Admin: 12/11/17 16:50 Dose: 10 mg Warfarin Sodium (Coumadin (Pbkc)) 1 mg PO SuMoWeFr@1700 [facility] Last Admin: 12/12/17 17:19 Dose: 1 mg Medical Necessity - Tobacco Use Smoking Status: Former smoker Assessment/Plan 57 years old female past medical history of type 2 diabetes, super morbid obesity redness admitted with swelling of the right lower extremity, found to have multiple bilateral nonhealing MSSA infected diabetic ulcers/wounds on the posterior aspect of the bilateral lower extremities and right lower extremity cellulitis status post extensive surgery. 1. POD #4, Multiple bilateral nonhealing diabetic MSSA infected leg ulcers/ wounds with secondary bacteria s/p extensive surgery with incision and drainage s/p wound VAC insertion to the right and left posterior leg wounds/ulcers. Wound culture revealed Proteus mirabilis, MRSA and Streptococcus agalactiae. Blood cultures showed no growth in 48 hours. On IV ceftriaxone and vancomycin, ID consult, to assist with discharge planning 2. Acute metabolic encephalopathy related to medications, resolved 3. Acute on chronic anemia, deficiency anemia, from blood loss during surgery, hemoglobin today is 8.4, will start on oral iron. 4. Type 2 diabetes mellitus, blood sugar stable, continue ADA diet, Accu-Cheks, insulin sliding scale, home doses of Levemir. 5. Hypertension, controlled, on lisinopril, Corgard and Cardizem. 6. Chronic A. fib, controlled, on digoxin, Cardizem, Corgard for rate control, continue Coumadin for anticoagulate him. INR is 2.8. 7. Chronic diastolic CHF, stable 8. DVT prophylaxis -Coumadin, INR therapeutic Code Visit Inpatient E&M: 36265 Subs Hosp L2
[2017-12-13 08:33] LABS: Immature Platelet Fraction 1.9 % (1.0-7.9); RET-HE 22.8 pg (30-35); Reticulocyte Count 3.83 % (0.5-1.5)
[2017-12-13 08:41] LABS: Ferritin 118 ng/mL (8-252); Iron 31 ug/dL (50-170); Iron Binding Capacity,Total 212 ug/dL (250-450); PERCENT IRON SATURATION 14.6 % (15.0-55.0)
[2017-12-13] MEDS: Gabapentin 400 MG Capsule PO ×4 (08:55→21:04)
[2017-12-13] MEDS: Iron Polysaccharide Complex 150 MG CAPSULE PO (08:55)
[2017-12-13] MEDS: Glucerna Shake 120 ML LIQUID PO ×2 (08:56→13:35)
[2017-12-13] MEDS: Citalopram 40 MG TABLET PO (08:57)
[2017-12-13] MEDS: dilTIAZem CD 120 MG Capsule PO (08:57)
[2017-12-13] MEDS: Nadolol 40 MG Tablet 120 MG PO (08:57)
[2017-12-13] MEDS: Fluticasone 0.05% 1 SPRAY NASAL.SRY 2 SPRAY NASAL (08:57)
[2017-12-13] MEDS: Furosemide 40 MG Tablet PO ×2 (08:58→18:36)
[2017-12-13] MEDS: Digoxin 250 MCG Tablet PO (08:58)
[2017-12-13] MEDS: Polyethylene Glycol 3350 17 GM PACKET PO (08:59)
[2017-12-13] MEDS: Lisinopril 10 MG Tablet PO (09:11)
[2017-12-13 09:21] LABS: Bedside Glucose 134 mg/dL (70-110)
--- NOTE | 2017-12-13 11:00 | NURSING ---
[facility] NOT ON UNIT FOR PT ADMINISTRATION
--- NOTE | 2017-12-13 11:16 | CASEMGMT ---
Social Work Note SW faxed updated clinicals to Kevin Preciado. Plan: [facility] pending pre-cert Hannah Carvajal WELT BEATER, DIRECTOR OF SAFETY
--- NOTE | 2017-12-13 11:25 | NURSING ---
[facility] still not on unit for pt administration
--- NOTE | 2017-12-13 11:29 | PCM.RX.CS ---
Consult Pharmacy has been consulted to manage selected antiobiotic: Vancomycin Type of Consult: New start Suspected Infection: Skin/Soft tissue Prior Doses of Antibiotics Received/Current Regimen: NEW START Labs: Sodium 141 mmol/L (136-145) 12/12/17 05:33 Potassium 4.5 mmol/L (3.5-5.1) 12/12/17 05:33 Chloride 101 mmol/L (98-107) 12/12/17 05:33 Carbon Dioxide 35.0 mmol/L (21.0-32.0) H 12/12/17 05:33 Anion Gap 5 (5-15) 12/12/17 05:33 BUN 32 mg/dL (7-18) H 12/12/17 05:33 Creatinine 0.93 mg/dL (0.55-1.02) 12/12/17 05:33 Est GFR (MDRD) Af Amer 80 mL/min (>60) 12/12/17 05:33 Est GFR (MDRD) Non-Af 66 mL/min (>60) 12/12/17 05:33 BUN/Creatinine Ratio 34.6 RATIO (10-20) H 12/12/17 05:33 Glucose 82 mg/dL (74-106) 12/12/17 05:33 Microbiology: Microbiology 12/09/17 Unknown Tissue - Leg, Right Gram Stain - Final 12/09/17 Unknown Tissue - Leg, Right Wound Culture - Preliminary Proteus mirabilis Meth. resistant Staph. aureus Sphingomonas paucimobilis 12/09/17 Unknown Tissue - Leg, Right Anaerobic Culture - Final Anaerobic cocci 12/09/17 Unknown Tissue - Leg, Left Gram Stain - Final 12/09/17 Unknown Tissue - Leg, Left Wound Culture - Final Meth. resistant Staph. aureus Streptococcus agalactiae (B) Proteus mirabilis 12/09/17 Unknown Tissue - Leg, Left Anaerobic Culture - Final Anaerobic cocci 12/09/17 Unknown Tissue - Leg, Right Gram Stain - Final 12/09/17 Unknown Tissue - Leg, Right Wound Culture - Final Meth. resistant Staph. aureus Streptococcus agalactiae (B) 12/09/17 Unknown Tissue - Leg, Right Anaerobic Culture - Final No anaerobic bacteria isolated. Weight used for dosin kg Estimated Creatinine Clearance: 61 Goal Trough: 10-15 mcg/mL Pharmacy Plan for Drug Dosing: Pharmacy Service will continue to monitor and adjust dosing as required. 1500MG Q12H, TROUGH ORDERED FOR PRIOR TO 4TH DOSE Follow-Up Labs: Trough Vancomycin Labs to be done on [date and time ordered]: 12/14/17 @ 1868
--- NOTE | 2017-12-13 12:14 | NURSING ---
[facility] IS STILL NOT ON UNIT FOR PT ADMINISTRATION
--- NOTE | 2017-12-13 14:26 | CASEMGMT ---
Social Work Note SW placed call to Kevin Preciado asking about pre-cert. Per Joelle she hasn't received pre-cert yet and is anticipating that tomorrow she will get it. MEÑO updated RN JOSE of this and also wound care nurse Hui of this. MEÑO will continue to follow to assist with discharge planning. Plan: [facility] Prec[facility] pending pre-cert Hannah Carvajal CUMULATIVE EFFECTS ANALYST, CASE PACKER AND SEALER
[2017-12-13] MEDS: LORazepam 1 MG Tablet PO (15:00)
--- NOTE | 2017-12-13 16:04 | NURSING ---
wound photo: right posterior thigh
--- NOTE | 2017-12-13 16:05 | NURSING ---
wound photo: right posterior/lateral lower leg
--- NOTE | 2017-12-13 16:06 | NURSING ---
wound photo: left posterior lower leg
--- NOTE | 2017-12-13 16:06 | NURSING ---
wound photo: left anteromedial ankle
--- NOTE | 2017-12-13 16:48 | CHAPLAIN ---
Type of Pastoral Visit _x__ Initial Visit ___ Follow-up Visit ___ On-call Visit ___ General Patient Visit ___ Spiritual Assessment ___ Family Conference ___ Bereavement ___ Rapid Response ___ Code Blue ___ Other (describe below) Pastoral Care Referral From _x__ Patient ___ Family _x__ Nurse ___ Physician ___ Tow Bar Driver ___ Asbestos Coverer ___ Other (describe below) Sacrament/Intervention _x__ Active listening ___ Anointing ___ Hindu ___ Bereavement ___ Communion _x__ Joelle exploration ___ ___ Life review _x__ Prayer ___ Reconciliation ___ Sacrament of Sick _x__ Supportive presence ___ Wedding ___ Other (describe below) Pastoral Comments patient admits to discouragement; pt asks questions about joelle and if illness is a sign of God punishment; explored thoughts and habits that are uplifting; pt was having difficulty focusing as she had received meds; prayer welcomed
[2017-12-13 17:30] LABS: Bedside Glucose 119 mg/dL (70-110)
[2017-12-13] MEDS: Ferrous Sulfate 325 MG Tablet PO (18:33)
[2017-12-13] MEDS: Docusate Sodium 100 MG Capsule PO (21:04)
[2017-12-13 22:10] LABS: Bedside Glucose 167 mg/dL (70-110)
[2017-12-14] VITALS (7 sets, daily range): BP systolic 107–119; BP diastolic 48–55; PULSE 68–85; RESP 18–20; TEMP 36.3–36.6; O2SAT 90–96
[2017-12-14] MEDS: oxyCODONE 5 MG Tablet PO ×2 (00:09→11:28)
[2017-12-14] MEDS: LORazepam 1 MG Tablet PO ×2 (00:09→11:29)
[2017-12-14] MEDS: Nystatin Powder 15gm Bottle 1 APPLIC TOPICAL ×2 (06:38→13:18)
[2017-12-14] MEDS: Budesonide Respules 0.5 MG/2 ML AMPUL.NEB. INHALATION (07:27)
[2017-12-14] MEDS: Albuterol 2.5 MG/3 ML VIAL.NEB. INHALATION (07:27)
--- NOTE | 2017-12-14 07:32 | PCM.PN.HOSP ---
Subjective: Patient was seen and examined, feels a little sad this morning, had some trouble with getting help from standing to to bed. Denies any fever, chills, chest pain, dizziness or shortness of breath. History of HUNTER, slept well with CPAP and oxygen. Vitals/I&O's: Vital Signs Temp Pulse Resp BP Pulse Ox 97.7 F L 68 18 119/48 L 94 12/14/17 03:50 12/14/17 05:00 12/14/17 03:50 12/14/17 03:50 12/14/17 03:50 Oxygen Flow Rate (L/min) 2 Oxygen Delivery Method Nasal Cannula Weight: 189 kg Body Mass Index (BMI) 67.2 Intake and Output for Last 24 Hours 12/12/17 12/13/17 12/14/17 23:59 23:59 23:59 Intake Total 2040 / 2040 1500 / 1500 1520 / 1520 Output Total 450 / 450 950 / 950 1000 / 1000 Balance 1590 / 1590 550 / 550 520 / 520 General: Alert, Oriented x3, Cooperative, No apparent distress, - - obese, on 2L oxygen HEENT: Atraumatic, PERRLA, EOMI, Normocephalic Oral: Moist Mucosa Neck: Supple Lungs: Clear to auscultation, Normal air movement, Diminished - at lung bases Cardiovascular: Regular rate, Regular Rhythm, Normal S1, Normal S2, No murmurs Abdomen: Bowel Sounds Present, Soft, Non Tender, Non-Distended, No Hepato-splenomegaly, Obese Extremities: Edema - bilateral leg edema, KRISTEN-wraps to legs Skin: No rashes Musculoskeletal: No Tenderness to Palpation of Joints or Extremities Lymphatic: No Cervical, Supraclavicular, or Inguinal Adenopathy Neurological: Cranial nerves II-XII grossly intact, Neuro grossly intact Psych/Mental Status: Normal Affect, Appropriate Microbiology Past 72 Hours 12/09/17 Unknown Tissue - Leg, Right Gram Stain - Final 12/09/17 Unknown Tissue - Leg, Right Wound Culture - Preliminary Proteus mirabilis Meth. resistant Staph. aureus 12/09/17 Unknown Tissue - Leg, Right Anaerobic Culture - Final Anaerobic cocci 12/09/17 Unknown Tissue - Leg, Left Gram Stain - Final 12/09/17 Unknown Tissue - Leg, Left Wound Culture - Final Meth. resistant Staph. aureus Streptococcus agalactiae (B) Proteus mirabilis 12/09/17 Unknown Tissue - Leg, Left Anaerobic Culture - Final Anaerobic cocci 12/09/17 Unknown Tissue - Leg, Right Gram Stain - Final 12/09/17 Unknown Tissue - Leg, Right Wound Culture - Final Meth. resistant Staph. aureus Streptococcus agalactiae (B) 12/09/17 Unknown Tissue - Leg, Right Anaerobic Culture - Final No anaerobic bacteria isolated. Laboratory Results 12/13/17 06:00: Immature Plt Fraction 1.9, Retic Count 3.83 H, Immature Retic Fraction 17.90 H, Retic Hgb Equivalent 22.8 L 12/13/17 06:00: Iron 31 L, TIBC 212 L, Iron Saturation 14.6 L, Ferritin 118 12/13/17 08:52: POC Glucose 134 H 12/13/17 17:27: POC Glucose 119 H 12/13/17 20:58: POC Glucose 167 H Current Medications Albuterol Sulfate (Ventolin Aerosols) 2.5 mg INHALATION Q4H PRN PRN PRN Reason: sob Last Admin: 12/11/17 04:13 Dose: 2.5 mg Albuterol Sulfate (Ventolin Aerosols) 2.5 mg INHALATION Q6HWA.RT [facility] Last Admin: 12/14/17 07:27 Dose: 2.5 mg Bisacodyl (Dulcolax) 5 mg PO DAILY FRED Budesonide (Pulmicort Aerosol) 0.5 mg INHALATION Q12H.RT [facility] [place] Last Admin: 12/14/17 07:27 Dose: 0.5 mg Citalopram Hydrobromide (Celexa) 40 mg PO DAILY [facility] Last Admin: 12/13/17 08:57 Dose: 40 mg Collagenase (Santyl) 1 applic TOPICAL DAILY [facility] PRN Reason: Protocol Last Admin: 12/13/17 09:11 Dose: Not Given Digoxin (Lanoxin) 250 mcg PO DAILY [facility] Last Admin: 12/13/17 08:58 Dose: 250 mcg Diltiazem HCl (Cardizem Cd) 120 mg PO DAILY [facility] Last Admin: 12/13/17 08:57 Dose: 120 mg Docusate Sodium (Colace) 100 mg PO BID [facility] Last Admin: 12/13/17 21:04 Dose: 100 mg Emollient Ointment (Eucerin Intensive Repair) 1 applic TOPICAL 4X/DAY PRN PRN; Protocol PRN Reason: DRY SKIN Ferrous Sulfate (Ferrous Sulfate) 325 mg PO BIDCM [facility] [place] Last Admin: 12/13/17 18:33 Dose: 325 mg Fluticasone Propionate (Flonase Nasal [place]) 2 spray NASAL DAILY [facility] [place] Last Admin: 12/13/17 08:57 Dose: 2 spray Furosemide (Lasix) 40 mg PO BIDLX [facility] Last Admin: 12/13/17 18:36 Dose: 40 mg Gabapentin (Neurontin) 400 mg PO 4X/DAY [facility] Last Admin: 12/13/17 21:04 Dose: 400 mg Ceftriaxone Sodium 2 gm/ (Sodium Chloride) 50 mls @ 100 mls/hr IV Q24 [facility] Last Admin: 12/13/17 09:11 Dose: 100 mls/hr Vancomycin HCl 1,500 mg/ (Sodium Chloride) 530 mls @ 250 mls/hr IV Q12H [facility] Last Admin: 12/14/17 00:05 Dose: 250 mls/hr Insulin Aspart (Novolog Flexpen (Bkc)) 14 units SC TIDCM [facility] Last Admin: 12/13/17 18:33 Dose: 14 units Insulin Detemir (Levemir (Bkc)) 46 units SC QHS [facility] Last Admin: 12/13/17 21:05 Dose: 46 units Lisinopril (Zestril) 10 mg PO DAILY [facility] Last Admin: 12/13/17 09:11 Dose: 10 mg Lorazepam (Ativan) 1 mg PO TID PRN PRN PRN Reason: ANXIETY Last Admin: 12/14/17 00:09 Dose: 1 mg Magnesium Hydroxide (Milk Of Magnesia) 30 ml PO DAILY PRN PRN PRN Reason: Constipation Nadolol (Corgard) 120 mg PO DAILY [facility] [place] Last Admin: 12/13/17 08:57 Dose: 120 mg Nutritional Formula (Josafat - [place] Flavor) 1 packet PO BIDCM [facility] [place] Last Admin: 12/13/17 18:33 Dose: 1 packet Nutritional Formula (Lactose Free) (Glucerna Shake) 120 ml PO TIDCM [facility] Last Admin: 12/13/17 18:33 Dose: Not Given Nystatin (Mycostatin Powder) 1 applic TOPICAL TID [facility] PRN Reason: Protocol Last Admin: 12/14/17 06:38 Dose: 1 applicatio Ondansetron HCl (Zofran) 8 mg IV Q6H PRN PRN PRN Reason: NAUSEA Oxycodone HCl (Oxyir) 5 - 10 mg PO Q6H PRN PRN PRN Reason: SEVERE PAIN (6-10/10) Last Admin: 12/14/17 00:09 Dose: 10 mg Polyethylene Glycol (Miralax) 17 gm PO DAILY [facility] [place] Last Admin: 12/13/17 08:59 Dose: 17 gm Sodium Chloride () 5 - 30 ml IV UD PRN PRN Reason: SALINE FLUSH Last Admin: 12/13/17 06:04 Dose: 30 ml Tramadol HCl (Ultram) 100 mg PO Q6H PRN PRN PRN Reason: MODERATE PAIN (4-5/10) Last Admin: 12/08/17 01:09 Dose: 100 mg Warfarin Sodium (Coumadin (Pbkc)) 10 mg PO SuMoWeFr@1700 [facility] [place] Last Admin: 12/13/17 18:32 Dose: 10 mg Warfarin Sodium (Coumadin (Pbkc)) 10 mg PO TuThSa@1700 [facility] Last Admin: 18 16:50 Dose: 10 mg Warfarin Sodium (Coumadin (Pbkc)) 1 mg PO SuMoWeFr@1700 [facility] Last Admin: 12/13/17 18:32 Dose: 1 mg Medical Necessity - Tobacco Use Smoking Status: Former smoker Assessment/Plan 57 years old female past medical history of type 2 diabetes, super morbid obesity redness admitted with swelling of the right lower extremity, found to have multiple bilateral nonhealing MSSA infected diabetic ulcers/wounds on the posterior aspect of the bilateral lower extremities and right lower extremity cellulitis status post extensive surgery. 1. POD #5, Multiple bilateral nonhealing diabetic MSSA infected leg ulcers/wounds with secondary bacteria s/p extensive surgery with incision and drainage s/p wound VAC insertion to the right and left posterior leg wounds/ulcers. Wound culture revealed Proteus mirabilis, MRSA and Streptococcus agalactiae. Blood cultures showed no growth in 48 hours. On IV ceftriaxone and vancomycin, ID consult, to assist with discharge planning 2. Acute metabolic encephalopathy related to medications, resolved 3. Acute on chronic anemia, deficiency anemia, from blood loss during surgery, hemoglobin today is 8.4, will start on oral iron. 4. Type 2 diabetes mellitus, blood sugar stable, continue ADA diet, Accu-Cheks, insulin sliding scale, home doses of Levemir. 5. Hypertension, controlled, on lisinopril, Corgard and Cardizem. 6. Chronic A. fib, controlled, on digoxin, Cardizem, Corgard for rate control, continue Coumadin for anticoagulate him. INR is 2.8. 7. Chronic diastolic CHF, stable 8. DVT prophylaxis -Coumadin, INR therapeutic
[2017-12-14] MEDS: Digoxin 250 MCG Tablet PO (07:51)
[2017-12-14] MEDS: Docusate Sodium 100 MG Capsule PO (07:51)
[2017-12-14] MEDS: Furosemide 40 MG Tablet PO ×2 (07:51→17:06)
[2017-12-14] MEDS: Polyethylene Glycol 3350 17 GM PACKET PO (07:51)
[2017-12-14] MEDS: Glucerna Shake 120 ML LIQUID PO ×3 (07:51→17:01)
[2017-12-14] MEDS: Bisacodyl 5 MG Tablet PO (07:52)
[2017-12-14] MEDS: dilTIAZem CD 120 MG Capsule PO (07:52)
[2017-12-14] MEDS: Nadolol 40 MG Tablet 120 MG PO (07:52)
[2017-12-14] MEDS: Gabapentin 400 MG Capsule PO ×3 (07:52→17:01)
[2017-12-14] MEDS: Lisinopril 10 MG Tablet PO (07:52)
[2017-12-14] MEDS: Citalopram 40 MG TABLET PO (07:53)
[2017-12-14] MEDS: Fluticasone 0.05% 1 SPRAY NASAL.SRY 2 SPRAY NASAL (07:54)
[2017-12-14] MEDS: Ferrous Sulfate 325 MG Tablet PO ×2 (07:58→17:07)
[2017-12-14 08:21] LABS: Bedside Glucose 193 mg/dL (70-110)
--- NOTE | 2017-12-14 09:20 | CASEMGMT ---
Social Work Note [facility] this worker that pre-[facility] was received and pt is able to go to [facility] today. SW updated Dr. Fontana and pt of this. MEÑO will fax discharge paperwork when available. Plan: [facility] today Hannah Carvajal MEAT BUTCHER, RAILROAD POLICE
--- NOTE | 2017-12-14 09:55 | NURSING ---
Precert was received by [facility] Preciado so patient will be discharged to the long-term today. will leave dressings in place and the wound VAC will be applied at the long-term.
[2017-12-14 10:23] LABS: International Normalized Ratio 2.6; Prothrombin Time (Protime)PT. 28.2 SECONDS (11.7-14.9)
--- NOTE | 2017-12-14 10:38 | TREXTCAR_ITS ---
- Diet 12/09/17 12:27 Diet: 2000 calories, Carbohydrate Controlled, cardiac, low sodium diet Is pt able to select menu?: Yes - Routine Orders/Code Status O2 Liters per Minute: 2L O2 Frequency: Continuous Keep PO Greater than or Equal to (%): 94 - encourage use of incentive spirometer , wean off for SpO2>94% Routine Lab Work: CBC - within 1 week, BMP - within 1 week, INR - daily Code Status: Full Code - Wound(s) left great toe Wound Type: Abrasion Dressing Change: Dry Sterile Dressing right lower abd in skin fold Wound Type: OPEN AREAS left inner ankle Wound Type: Neuropathic/Diabetic Foot Ulcer left outer ankle Wound Type: Neuropathic/Diabetic Foot Ulcer back of left leg calf area Wound Type: Neuropathic/Diabetic Foot Ulcer right back of the pts calf area Wound Type: Neuropathic/Diabetic Foot Ulcer right outer ankle area Wound Type: Neuropathic/Diabetic Foot Ulcer right fa Wound Type: Abrasion left anteromedial ankle Wound Type: open surgical wound s/p I&D Dressing Change: AntiMicrobial (Aquacel AG, etc) left posterior lower leg Wound Type: open wound s/p I&D Dressing Change: AntiMicrobial (Aquacel AG, etc) right posterior lower leg Wound Type: open surgical wound s/pI&D Dressing Change: AntiMicrobial (Aquacel AG, etc) right posterior thigh Wound Type: open surgical wound s/p I&D Dressing Change: AntiMicrobial (Aquacel AG, etc) right lateral ankle Wound Type: open surgical wound s/p I&D Dressing Change: AntiMicrobial (Aquacel AG, etc) - Therapies Weight Bearing: Weight bearing as tolerated Extremity Affected:: Bilateral Lower Physical Therapy: Eval and Treat Occupational Therapy: Eval and Treat - Allergies/Procedures Done in Hospital Allergies/Adverse Reactions: Allergies latex Allergy (Verified 03/26/15 11:04) Itching pentazocine lactate [From Talwin] Allergy (Verified 03/26/15 11:04) Itching phenobarbital Allergy (Verified 03/26/15 11:04) Itching tree nut Allergy (Verified 03/26/15 11:04) Anaphylaxis codeine Adverse Reaction (Verified 03/26/15 11:04) Upset Stomach Procedures: Wound Vac placement, - - Extensive I & D - Type of Care/Length of Stay Estimated LOS: Convalescent Care Less Than 30 days Type of Care Needed: Skilled Rehab Potential: Good Prognosis: Good - Additional Orders/Day of Discharge Day of Discharge: 12/14/17 - Dietary and Speech Recommendations Dietitian Recommendations/Changes: Recommend diet change to 2000 calorie, cardiac, low sodium diet given obesity & past medical hx. Recommend continue ONS medpass and Josafat 1 packet BID for wound healing. - Follow Up Care Primary Care Physician: Rajesh Reynolds MD [Primary Care Provider] - Please follow up with your Primary Care Physician in: within 2 weeks Please Follow Up With: Alejo Martinez MD When: within 2 weeks in wound center
--- NOTE | 2017-12-14 10:40 | PCM.DC.SUM ---
Discharge Date and Diagnosis Date of Admission: 12/06/17 Date of Discharge: 12/14/17 - Primary Discharge Diagnosis 1. Multiple bilateral nonhealing diabetic MSSA infected leg ulcers, s/p extensive surgery with incision and drainage 2. s/p wound VAC insertion to the right and left posterior leg wounds/ulcers 3. Acute metabolic encephalopathy 4. Acute on chronic anemia - Secondary Discharge Diagnosis Chronic Problems (Last Updated 12/07/17 @ 09:05 by Thomas Carrasco MD) Pulmonary hypertension (Chronic) Morbid obesity (Chronic) Congestive heart failure (Chronic) Chronic atrial fibrillation (Chronic) Type 2 diabetes mellitus (Chronic) Hypertension (Chronic) Hospital Course and Treatment Imaging Results: Clinical Impression(s) from Imaging Studies Chest X-Ray 12/06/17 15:09 IMPRESSION: Cardiomegaly. Mild degree of CHF. Electronically Signed: Oh Wellington MD at 15:29 EDT Tel [phone], Service support , Lower Extremity CT 12/08/17 08:33 IMPRESSION: Diffuse left lower extremity edema worse along the medial aspect of the left thigh extending down to the level of the knee joint with the ulceration along the posterior aspect of the knee joint. Phleboliths are seen within the venous structures as well as varicosities. Vascular calcification. Electronically Signed: Oh Wellington MD at 10:20 EDT Tel [phone], Service support , Lower Extremity CT 12/08/17 09:00 IMPRESSION: Diffuse subcutaneous edema and skin thickening along the medial aspect of the right buttock down to the mid leg. Venous varicosities as well as multiple soft tissue calcifications. Electronically Signed: Oh Wellington MD at 10:31 EDT Tel [phone], Service support , Chest X-Ray 12/08/17 12:45 IMPRESSION: Right sided PICC line appears properly positioned. Findings otherwise stable with cardiomegaly and pulmonary vascular congestion. at 1354 Reported and signed by: Kerry Bose MD Electronically Signed: Kerry Bose MD at 13:53 EDT Tel , Service support , Consultations 12/07/17 06:47 Consult: Onc/Wound/educational director Routine Comment: Reason for Consult:: legs Operations: None Procedures: - - Extensive I&D of nonhealing infected MRA ulcer abscesses Summary of Care Provided: 57 years old female past medical history of type 2 diabetes, super morbid obesity redness was admitted with swelling of the right lower extremity, and found to have multiple bilateral nonhealing MSSA infected diabetic ulcers/wounds on the posterior aspect of the bilateral lower extremities and right lower extremity cellulitis status post extensive surgery. 1. Multiple bilateral nonhealing diabetic MSSA infected leg ulcers/wounds with secondary bacteria s/p extensive surgery with incision and drainage s/p wound VAC insertion to the right and left posterior leg wounds/ulcers. Wound culture revealed Proteus mirabilis, MRSA and Streptococcus agalactiae. Blood cultures showed no growth in 48 hours. Discharged on IV ceftriaxone, vancomycin, oral Flagyl, to follow up with Dr. Martinez in the wound center. ID was consulted in this admission. 2. Acute metabolic encephalopathy related to medications, resolved 3. Acute on chronic anemia, deficiency anemia, from blood loss during surgery, started on oral iron 4. Type 2 diabetes mellitus, blood sugar stable 5. Hypertension, controlled, on lisinopril, Corgard and Cardizem. 6. Chronic A. fib, controlled, on digoxin, Cardizem, Corgard for rate control, on anticoagulation with Coumadin 7. Chronic diastolic CHF, stable Discharge Diet: Low fat/ Low Cholesterol, 2000 Calorie Control Diet, 2000 mg Sodium Diet, Carb Control Diet Discharge Activity: Return to Normal Activity Weight Bearing Status: Weight bearing as tolerated Home Medications: Medications to take at Discharge Citalopram [Celexa] 40 mg PO DAILY 03/20/15 Digoxin [Digitek] 250 mcg PO DAILY 03/20/15 Exenatide [Byetta (BKC)] 5 mcg SC BIDCM 03/20/15 Lisinopril [Zestril] 10 mg PO DAILY 03/20/15 Metformin HCl [Glucophage] 1,000 mg PO BIDCM 03/20/15 Nadolol [Corgard (Beta Mk)] 120 mg PO DAILY 03/20/15 Torsemide [Demadex] 20 mg PO BID 03/20/15 Gabapentin [Neurontin] 400 mg PO 4X/DAY 12/30/16 Insulin Aspart [Novolog Flexpen] 14 units SC TIDCM 12/30/16 Insulin Glargine,Hum.rec.anlog [Lantus] 46 unit SQ QHS 12/30/16 Warfarin [Coumadin] 10 mg PO TUTHSA 12/30/16 Warfarin [Coumadin] 11 mg PO SUMOWEFR 12/30/16 albuterol sulfate HFA 90 mcg/actuation aerosol inhaler 2 puff INHALATION Q4H PRN g 08/26/17 fluticasone 50 mcg/actuation nasal spray,suspension 2 spray INTRANASAL DAILY 08/26/17 Budesonide/Formoterol 160/4.5 [Symbicort 160/4.5 Mcg Inhaler (SP)] 2 inh INHALATION Q12H 12/06/17 Diltiazem HCl [Diltiazem 24Hr ER] 120 mg PO DAILY 12/06/17 Bisacodyl [Dulcolax] 5 mg PO DAILY tablet 12/14/17 Ceftriaxone 2 gm IV Q24 #10 vial 12/14/17 Docusate Sodium [Colace] 100 mg PO BID capsule 12/14/17 Ferrous Sulfate 325 mg PO BIDCM tablet 12/14/17 Glucerna Shake 120 ml PO TIDCM liquid 12/14/17 Lorazepam [Ativan] 1 mg PO TID PRN PRN #10 tab 12/14/17 Metronidazole [Flagyl] 500 mg PO TID #30 tablet 12/14/17 Nutritional Supplement [Josafat - ORANGE FLAVOR] 1 packet PO BIDCM packet 12/14/17 Nystatin Powder [Mycostatin Powder] 1 applic TOPICAL TID bottle 12/14/17 Oxycodone [Oxyir] 5 - 10 mg PO Q6H PRN PRN #10 tab 12/14/17 Vancomycin 1,500 mg IV Q12H #10 vial 12/14/17 Following Prescrptions Were Given to Patient: Oxycodone [Oxyir] 5 - 10 mg PO Q6H PRN PRN #10 tab PRN Reason: Severe Pain (-06/01) Lorazepam [Ativan] 1 mg PO TID PRN PRN #10 tab PRN Reason: Anxiety Primary Care Physician: Rajesh Reynolds MD [Primary Care Provider] - Please follow up with your Primary Care Physician in: within 2 weeks Please Follow Up With: Alejo Martinez MD When: within 2 weeks in wound center Disposition: Jail facility Minutes spent on discharge:: 35 Patient Condition:: Stable Medical Necessity - Tobacco Use Smoking Status: Former smoker Meaningful Use Info Meaningful Use Diagnoses (Choose all that apply): None applicable Code Visit Inpatient E&M: 81098 Disch Hosp
--- NOTE | 2017-12-14 10:44 | PCM.HP.ID ---
Problem List (1) Abscess of left lower extremity Status: Acute Comment: nonhealing infected MRSA diabetic ulcer abscess left posterior leg Reason for Consult: leg abscess Consulted by: Dr. Fontana History of Present Illness: The patient is a 57 year old F with DM who presented 12/06 with acute onset BLE blisters, redness, severe pain. Sx started after scrubbing her legs in the shower. Developed chills with her sx. Bloody drainage developed. Came to ED, started on broad spectrum abx. Taken to OR 12/[address] Martinez and extensive fat necrosis was debrided. Now feeling better, no fever, no n/v/d, picc in place. D/c planned to ECF. Full ROS performed and neg except as noted above. - Medical History Past Medical History (Chronic Problems): Chronic Problems (Last Updated 12/07/17 @ 09:05 by Thomas Carrasco MD) Pulmonary hypertension (Chronic) Morbid obesity (Chronic) Congestive heart failure (Chronic) Chronic atrial fibrillation (Chronic) Type 2 diabetes mellitus (Chronic) Hypertension (Chronic) Allergies/Adverse Reactions: Allergies latex Allergy (Verified 03/26/15 11:04) Itching pentazocine lactate [From Talwin] Allergy (Verified 03/26/15 11:04) Itching phenobarbital Allergy (Verified 03/26/15 11:04) Itching tree nut Allergy (Verified 03/26/15 11:04) Anaphylaxis codeine Adverse Reaction (Verified 03/26/15 11:04) Upset Stomach Home Medications: Ambulatory Orders Medication Instructions Recorded Citalopram [Celexa] 40 mg PO DAILY 03/20/15 Digoxin [Digitek] 250 mcg PO DAILY 03/20/15 Exenatide [Byetta (BKC)] 5 mcg SC BIDCM 03/20/15 Lisinopril [Zestril] 10 mg PO DAILY 03/20/15 Metformin HCl [Glucophage] 1,000 mg PO BIDCM 03/20/15 Nadolol [Corgard (Beta Mk)] 120 mg PO DAILY 03/20/15 Torsemide [Demadex] 20 mg PO BID 03/20/15 Gabapentin [Neurontin] 400 mg PO 4X/DAY 12/30/16 Insulin Aspart [Novolog Flexpen] 14 units SC TIDCM 12/30/16 Insulin Glargine,Hum.rec.anlog 46 unit SQ QHS 12/30/16 [Lantus] Warfarin [Coumadin] 10 mg PO TUTHSA 12/30/16 Warfarin [Coumadin] 11 mg PO SUMOWEFR 12/30/16 albuterol sulfate HFA 90 2 puff INHALATION Q4H PRN g 08/26/17 mcg/actuation aerosol inhaler fluticasone 50 mcg/actuation nasal 2 spray INTRANASAL DAILY 08/26/17 spray,suspension Budesonide/Formoterol 160/4.5 2 inh INHALATION Q12H 12/06/17 [Symbicort 160/4.5 Mcg Inhaler (SP)] Diltiazem HCl [Diltiazem 24Hr ER] 120 mg PO DAILY 12/06/17 Bisacodyl [Dulcolax] 5 mg PO DAILY tablet 12/14/17 Ceftriaxone 2 gm IV Q24 #10 vial 12/14/17 Docusate Sodium [Colace] 100 mg PO BID capsule 12/14/17 Ferrous Sulfate 325 mg PO BIDCM tablet 12/14/17 Glucerna Shake 120 ml PO TIDCM liquid 12/14/17 Lorazepam [Ativan] 1 mg PO TID PRN PRN #10 tab 12/14/17 Metronidazole [Flagyl] 500 mg PO TID #30 tablet 12/14/17 Nutritional Supplement [Josafat - 1 packet PO BIDCM packet 12/14/17 ORANGE FLAVOR] Nystatin Powder [Mycostatin Powder] 1 applic TOPICAL TID bottle 12/14/17 Oxycodone [Oxyir] 5 - 10 mg PO Q6H PRN PRN #10 tab 12/14/17 Vancomycin 1,500 mg IV Q12H #10 vial 12/14/17 - Social History SMOKING STATUS:: Former smoker Vital Signs Temp Pulse Resp BP Pulse Ox 97.4 F L 82 18 112/55 L 96 12/14/17 08:19 12/14/17 08:19 12/14/17 08:19 12/14/17 08:19 12/14/17 08:19 Oxygen Flow Rate (L/min) 2 Oxygen Delivery Method Nasal Cannula Weight: 189 kg Body Mass Index (BMI) 67.2 Microbiology Past 72 Hours 12/09/17 Unknown Gram Stain - Final Tissue - Leg, Right Wound Culture - Final Proteus mirabilis Meth. resistant Staph. aureus Corynebacterium minutissimum Anaerobic Culture - Final Anaerobic cocci 12/09/17 Unknown Gram Stain - Final Tissue - Leg, Left Wound Culture - Final Meth. resistant Staph. aureus Streptococcus agalactiae (B) Proteus mirabilis Anaerobic Culture - Final Anaerobic cocci 12/09/17 Unknown Gram Stain - Final Tissue - Leg, Right Wound Culture - Final Meth. resistant Staph. aureus Streptococcus agalactiae (B) Anaerobic Culture - Final No anaerobic bacteria isolated. Laboratory Tests Past 24 Hrs 12/14/17 10:00 PT 28.2 H INR 2.6 - Other Studies Radiology: [] reviewed Other Studies: [] Route of nutrition/ use of supplements: [] Nutritional Intake: [] IV Site: [] Dos Santos Catheter: [] - Physical Exam General: Alert, Oriented x3, Cooperative, No apparent distress HEENT: Atraumatic, PERRLA, EOMI Neck: Supple, No Nodes Lungs: Clear to auscultation, Normal air movement Cardiovascular: Regular rate, Regular Rhythm Abdomen: Soft, Non Tender, Non-Distended, Obese Extremities: Edema Skin: Ulcer/ Wound - BLE legs wrapped, reviewed photos IV Site: PICC, without redness Musculoskeletal: No Tenderness to Palpation of Joints or Extremities - Assessment/Plan Antibiotics: [] Assessment/Plan: [] BLE abscess with necrosis - s/p OR 12/[address] Martinez, cxs with MRSA, MSSA, proteus, corynebacterium, GBS, and anaerobes. Ok for d/c to ECF on 10 more days of iv vanc, ceftriaxone, and po flagyl. Weekly bmp, cbc, and vanc trough while on iv abx. Thank you, d/w Dr. Fontana and returned case inspector. Rx for labs written.
--- NOTE | 2017-12-14 11:19 | CASEMGMT ---
Social Work Note MEÑO faxed discharge paperwork including transfer to extended care facility, signed medication list, and signed scripts to [facility]. MEÑO completed convalescent 7000 in [facility]. MEÑO set up transportation through [facility] via ambulance for 2:30pm. MEÑO updated Kevin Preciado, DAVID Robledo, [place] Sotero, Charge Nurse Igor and pt of transportation time. Pt states that she has called her mother and daughter to let them know that pt will be discharging today and denied having this worker call anyone else. Pt denied additional needs or concerns at this time. Plan: Discharge to [facility] today for IV antibiotics and wound care Hannah Carvajal LINE OUT MAN, GROCERY DELIVERER
[2017-12-14] MEDS: metroNIDAZOLE 500 MG Tablet PO ×2 (11:25→13:18)
[2017-12-14 11:41] LABS: Bedside Glucose 184 mg/dL (70-110)
--- NOTE | 2017-12-14 12:13 | CASEMGMT ---
Social Work Note SW faxed wound vac settings to Joelle at [facility]. Plan: Discharge to [facility] today Hannah Carvajal SPOT FACER, SIGN MAKER
--- NOTE | 2017-12-14 14:14 | NURSING ---
call placed to [facility] and report given to MEENAKSHI lopez who will be recieving pt
--- NOTE | 2017-12-14 15:02 | CASEMGMT ---
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 Pt is unable to be transported on regular size cot. Per [facility] they have called another squad that is able to apple picking supervisor pt and take to [facility]. This worker takes full responsibility for miscommunication about pt's height and weight and apologized to [facility] for the miscommunication. placed call to Joelle at [facility] to update her that pt will be delayed in arriving to facility due to miscommunication. Joelle states understanding. Plan: Discharge to [facility] Hannah Carvajal POSTAL INSPECTOR, DIRECTOR OF TAX SERVICES
--- NOTE | 2017-12-14 16:28 | CASEMGMT ---
Social Work: [facility] states that [facility] is unable to transport patient due to safety concern of not being equipped with a bariatric cot. [facility] states that [facility] was called due to having bariatric capabilities. [facility] will be picking patient up at 7:00pm. TC to Kevin Preciado. Spoke with DAVID Whitlock. Chinyere aware that patient will not be picked up from [facility] until 7:00pm and will probably not arrive to SNF until after 8:00pm. Chinyere states that this is not a problem. TC to [facility]. [facility] aware that [facility] is willing to accept patient at 8:00pm or after tonight. [facility] states the nursing staff will update patient of picker time. PLAN: Patient to be discharged to [facility] today with picker by [facility] at 7:00pm. RASHMI Webster
[2017-12-14 17:15] LABS: Bedside Glucose 125 mg/dL (70-110)
--- NOTE | 2017-12-14 20:00 | NURSING ---
Cullen Willis here to pick pt up left @ 1957.
== END 2017-12-14 19:58 | disposition skilled nursing facility (03) | DRG 623 ==
LOC: ED 15:41 → MS3 17:45
PROVIDERS: Anesthesiology; Hospitalist; Internal Medicine; Surgery; Admitting Provider Internal Medicine; Emergency Provider Emergency Medicine; Family Provider Family Medicine; PCP Family Medicine; Visit Provider Internal Medicine
PROC: 0JBR0ZZ Excision of Left Foot Subcutaneous Tissue and Fascia, Open Approach (ICD-10-PCS; principal; 2017-12-09 09:50)
DX: E11.622 Type 2 diabetes mellitus with other skin ulcer (principal); I50.32 Chronic diastolic (congestive) heart failure; L97.929 Non-pressure chronic ulcer of unspecified part of left lower leg with unspecified severity; L97.329 Non-pressure chronic ulcer of left ankle with unspecified severity; L97.119 Non-pressure chronic ulcer of right thigh with unspecified severity; L97.319 Non-pressure chronic ulcer of right ankle with unspecified severity; L97.919 Non-pressure chronic ulcer of unspecified part of right lower leg with unspecified severity; Z68.44 Body mass index [BMI] 60.0-69.9, adult; D62 Acute posthemorrhagic anemia; L03.115 Cellulitis of right lower limb; E66.01 Morbid (severe) obesity due to excess calories; I48.2 Chronic atrial fibrillation; Z79.01 Long term (current) use of anticoagulants; Z87.891 Personal history of nicotine dependence; B95.62 Methicillin resistant Staphylococcus aureus infection as the cause of diseases classified elsewhere; I27.20 Pulmonary hypertension, unspecified; I11.0 Hypertensive heart disease with heart failure; T50.905A Adverse effect of unspecified drugs, medicaments and biological substances, initial encounter; G92 Toxic encephalopathy; G47.33 Obstructive sleep apnea (adult) (pediatric); Z79.4 Long term (current) use of insulin
CPT/HCPCS: 36415; 36569; 36600; 71045; 73700; 80048; 82728; 82803; 82962; 83036; 83540; 83550; 83880; 84134; 85014; 85018; 85025; 85027; 85045; 85610; 85730; 86850; 86900; 86920; 86922; 87040; 87070; 87075; 87077; 87102; 87186; 87205; 87206; 87640; 88304; 88305; 88311; 93005; 94640; 97110; 97162; 97165; 97530; 97535; 97802; 99285; J7040; A4216; J0696; J1940; J2310; J2405

== ENCOUNTER 2017-12-24 14:27 | Inpatient (IN) | payer OTHER, SELFPAY ==
[2017-12-24] VITALS (18 sets, daily range): BP systolic 103–126; BP diastolic 31–103; PULSE 54–75; RESP 14–19; TEMP 36.3–36.7; O2SAT 91–99; BMI 67.1
--- NOTE | 2017-12-24 15:10 | RAD_ITS ---
STUDY: X-RAY CHEST REASON FOR EXAM: Female, 57 years old. Line placement TECHNIQUE: Single AP portable view of the chest. COMPARISON: 12/08/2017 FINDINGS: Right IJ central venous catheter is noted with tip in the mid SVC. No pneumothorax. Lungs are adequately inflated with diffuse interstitial edema and vascular congestion. There is no demonstrated pleural abnormality. Mild cardiomegaly. Normal mediastinum and han. Normal visualized pulmonary arteries. Normal visualized aortic arch and descending thoracic aorta. There are diffuse degenerative changes of the visualized thoracic spine. Normal visualized ribs, clavicles, and shoulders. There is no demonstrated abnormality of the visualized soft tissue structures of the upper abdomen. RAD/Chest 1 View (Portable) IMPRESSION: Right IJ central venous catheter as above with diffuse pulmonary edema Electronically Signed: Clinton Gallagher DO at 15:56 EDT Tel , Service support ,
--- NOTE | 2017-12-24 15:13 | EKG12_ITS ---
Test Reason : ARRYTHMIA Blood Pressure : / mmHG Vent. Rate : 057 BPM Atrial Rate : 202 BPM P-R Int : 000 ms QRS Dur : 090 ms QT Int : 410 ms P-R-T Axes : 000 033 137 degrees QTc Int : 399 ms Atrial fibrillation Low voltage QRS T wave abnormality, consider lateral ischemia Abnormal ECG When compared with ECG of 08-DEC-2017 05:12, QT has shortened Confirmed by ARTURO LAZARO, MIKO ([id number]), development editor CHECO HERNANDEZ ([id number] on 12/27/2017 2:38:05 PM Referred By: Silviano Vasquez Confirmed By:MIKO MORRIS MD
--- NOTE | 2017-12-24 15:17 | PCM.HP.STD ---
Problem List (1) Acute kidney injury Status: Acute (2) Hyperkalemia Status: Acute (3) Digoxin toxicity Status: Acute (4) Vancomycin toxicity Status: Acute (5) Abscess of left lower extremity Status: Chronic Comment: nonhealing infected MRSA diabetic ulcer abscess left posterior leg (6) Abscess of right lower extremity Status: Chronic Comment: nonhealing infected MRSA diabetic ulcer abscess right posterior leg nonhealing infected MRSA diabetic ulcer abscess right posterior thigh (7) Cellulitis of leg, right Status: Chronic (8) Diabetes with ulcer of lower extremity Status: Chronic Comment: nonhealing infected MRSA diabetic ulcers bilateral posterior legs (9) Methicillin resistant Staphylococcus aureus infection Status: Chronic (10) Chronic atrial fibrillation Status: Chronic (11) Congestive heart failure Status: Chronic (12) Hypertension Status: Chronic (13) Morbid obesity Status: Chronic (14) Pulmonary hypertension Status: Chronic (15) Type 2 diabetes mellitus Status: Chronic (16) Acute on chronic congestive heart failure Status: Suspected History of Present Illness Date of Admission: 12/24/17 Chief Complaint: Altered mental status AND kidney failure The patient is a 57 year old F with multiple medical comorbidities including diabetes mellitus type 2, pulmonary hypertension, chronic A. fib and MRSA cellulitis with nonhealing ulcer on bilateral lower extremities status post extensive debridement and wound VAC placement during last admission from December 06- and discharged to residential on IV vancomycin. As per the son, patient was having periods of confusion, weakness, hallucinations and muscle twitching for last 5-7 days. During labs done in [facility], patient was found to have kidney failure with high BUN, creatinine and dig level. As per the EMS note, patient was also short of breath and weak found to have bradycardia. Patient was transferred to [facility] ER, patient heart rate dropped to 17-40/M and was given half ampule of atropine. Initial labs done in ER was markedly abnormal for digoxin 2.94, BUN 67, creatinine 7.2 and K 5.5. INR 3.6. Vanco level was 141 and INR 6.9 on December 23. Patient also had 500 normal saline bolus when her blood pressure was systolic 80s-90s, she also received fentanyl 50 mcg. EKG shows atrial fibrillation 35 bpm Patient was transferred to ICU directly. Patient has right arm PICC line. [] Past Medical History Past Medical History (Chronic Problems): Chronic Problems (Last Updated 12/07/17 @ 09:05 by Thomas Carrasco MD) Abscess of right lower extremity (Chronic) nonhealing infected MRSA diabetic ulcer abscess right posterior leg nonhealing infected MRSA diabetic ulcer abscess right posterior thigh Abscess of left lower extremity (Chronic) nonhealing infected MRSA diabetic ulcer abscess left posterior leg Methicillin resistant Staphylococcus aureus infection (Chronic) Diabetes with ulcer of lower extremity (Chronic) nonhealing infected MRSA diabetic ulcers bilateral posterior legs Pulmonary hypertension (Chronic) Cellulitis of leg, right (Chronic) Morbid obesity (Chronic) Congestive heart failure (Chronic) Chronic atrial fibrillation (Chronic) Type 2 diabetes mellitus (Chronic) Hypertension (Chronic) Allergies latex Allergy (Verified 03/26/15 11:04) Itching pentazocine lactate [From Talwin] Allergy (Verified 03/26/15 11:04) Itching phenobarbital Allergy (Verified 03/26/15 11:04) Itching tree nut Allergy (Verified 03/26/15 11:04) Anaphylaxis codeine Adverse Reaction (Verified 03/26/15 11:04) Upset Stomach Home Medications: Ambulatory Orders Medication Instructions Recorded Citalopram [Celexa] 40 mg PO DAILY 03/20/15 Digoxin [Digitek] 250 mcg PO DAILY 03/20/15 Exenatide [Byetta (BKC)] 5 mcg SC BIDCM 03/20/15 Lisinopril [Zestril] 10 mg PO DAILY 03/20/15 Metformin HCl [Glucophage] 1,000 mg PO BIDCM 03/20/15 Nadolol [Corgard (Beta Mk)] 120 mg PO DAILY 03/20/15 Torsemide [Demadex] 20 mg PO BID 03/20/15 Gabapentin [Neurontin] 400 mg PO 4X/DAY 12/30/16 Insulin Aspart [Novolog Flexpen] 14 units SC TIDCM 12/30/16 Insulin Glargine,Hum.rec.anlog 46 unit SQ QHS 12/30/16 [Lantus] Warfarin [Coumadin] 10 mg PO TUTHSA 12/30/16 Warfarin [Coumadin] 11 mg PO SUMOWEFR 12/30/16 albuterol sulfate HFA 90 2 puff INHALATION Q4H PRN g 08/26/17 mcg/actuation aerosol inhaler fluticasone 50 mcg/actuation nasal 2 spray INTRANASAL DAILY 08/26/17 spray,suspension Budesonide/Formoterol 160/4.5 2 inh INHALATION Q12H 12/06/17 [Symbicort 160/4.5 Mcg Inhaler (SP)] Diltiazem HCl [Diltiazem 24Hr ER] 120 mg PO DAILY 12/06/17 Bisacodyl [Dulcolax] 5 mg PO DAILY tablet 12/14/17 Ceftriaxone 2 gm IV Q24 #10 vial 12/14/17 Docusate Sodium [Colace] 100 mg PO BID capsule 12/14/17 Ferrous Sulfate 325 mg PO BIDCM tablet 12/14/17 Glucerna Shake 120 ml PO TIDCM liquid 12/14/17 Lorazepam [Ativan] 1 mg PO TID PRN PRN #10 tab 12/14/17 Metronidazole [Flagyl] 500 mg PO TID #30 tablet 12/14/17 Nutritional Supplement [Josafat - 1 packet PO BIDCM packet 12/14/17 ORANGE FLAVOR] Nystatin Powder [Mycostatin Powder] 1 applic TOPICAL TID bottle 12/14/17 Oxycodone [Oxyir] 5 - 10 mg PO Q6H PRN PRN #10 tab 12/14/17 Vancomycin 1,500 mg IV Q12H #10 vial 12/14/17 Surgical History: cholecystectomy, hysterectomy - with BSO, tonsillectomy, - - 2 section. Psychiatric History: No pertinent psych hx INCOME TAX AUDITOR History: No pertinent INCOME TAX AUDITOR history Smoking Status: Former smoker - *Family History Maternal History Items: No pertinent history Paternal History Items: No pertinent history Review of Systems Constitutional: Reports: Malaise, Weakness, Fatigue. Denies: Chills, Fever HEENT: Denies: Head Aches, Sinus Congestion, Sinus Drainage Cardiovascular: Denies: Chest Pain, Palpitations Respiratory: Reports: Shortness of Breath. Denies: Cough, Shortness of breath at rest, Sputum production Gastrointestinal: Denies: Abdominal Pain, Nausea, Vomiting Genitourinary: Denies: Dysuria Musculoskeletal: Reports: Joint Pain, Joint stiffness, Joint swelling. Denies: Joint Tenderness Skin: Reports: Rash, Wounds, - - Has wound VAC Neurological: Denies: Numbness, Tingling, Focal weakness Psychiatric: Denies: Anxiety, Depression, Homicidal Ideations, Suicidal Ideations Hematologic/ Lymphatic: Denies: Easy Bleeding VTE Information - Inpt Only VTE Present on Admission: No VTE Mechan Device Prophylaxis: SCD's VTE Pharm Prophylaxis ordered?: No Reason prophylaxis not ordered:: Medical Contraindication - Coagulopathy Patient Problems: Active and Suspected Problems (Last Updated 12/07/17 @ 09:05 by Thomas Carrasco MD) Acute kidney injury (Acute) Hyperkalemia (Acute) Digoxin toxicity (Acute) Vancomycin toxicity (Acute) - Physical Exam General: Alert, Oriented x3, Cooperative, Lethargic HEENT: Atraumatic, PERRLA, EOMI, Normocephalic Oral: Dry Mucosa Neck: Supple, No JVD, Negative Carotid Bruits Lungs: Clear to auscultation, No rhonchi, No wheeze, No rales, Diminished Cardiovascular: Normal S1, Normal S2, No murmurs, Bradycardic Abdomen: Bowel Sounds Present, Soft, Non Tender, Non-Distended Extremities: Capillary Refill Less than 3 Seconds, Edema Skin: Ulcer/ Wound - Multiple wounds present or bilateral lower extremities, 2 each on bilateral lower legs, lateral aspect and one on right thigh. wound vac present Musculoskeletal: No Tenderness to Palpation of Joints or Extremities Neurological: Cranial nerves II-XII grossly intact Psych/Mental Status: Normal Affect, Appropriate Vital Signs Pulse Ox 95 12/24/17 15:15 Oxygen Flow Rate (L/min) 4 Oxygen Delivery Method Nasal Cannula Assessment/Plan Active and Suspected Problems (Last Updated 12/07/17 @ 09:05 by Thomas Carrasco MD) Acute kidney injury (Acute) Hyperkalemia (Acute) Digoxin toxicity (Acute) Vancomycin toxicity (Acute) The patient is a 57 year old F with multiple medical comorbidities including diabetes mellitus type 2, pulmonary hypertension, chronic A. fib and MRSA cellulitis with nonhealing ulcer on bilateral lower extremities status post extensive debridement and wound VAC placement during last admission from December 06- and discharged to residential on IV vancomycin. As per the son, patient was having periods of confusion, weakness, hallucinations and muscle twitching for last 5-7 days. During labs done in [facility] ER, patient was found to have kidney failure with high BUN, creatinine and dig level. As per the EMS note, patient was also short of breath and weak found to have bradycardia. Patient was transferred to [facility], patient heart rate dropped to 17-40/M and was given half ampule of atropine. Initial labs done in ER was markedly abnormal for digoxin 2.94, BUN 67, creatinine 7.2 and K 5.5. INR 3.6. Vanco level was 141 and INR 6.9 on December 23. Patient also had 500 normal saline bolus when her blood pressure was systolic 80s-90s, she also received fentanyl 50 mcg. EKG shows atrial fibrillation 35 bpm Patient was transferred and admitted directly in ICU. Patient has right arm PICC line. 1. Severe bradycardia with hypotension: The patient when seen in ICU, heart rate in 50s and blood pressure 110-120s. At times, patient has got sinus pause. Weblogic Administrator and research home economist was consulted. The consent was taken for dialysis catheter insertion for emergent dialysis; right IJ dialysis catheter was inserted by brick molder hand. Discussed with the family member including patient's son. 2. Acute kidney injury with hyperkalemia: Needs urgent hemodialysis. Urine output about 100 mL of dark brown color. Follow-up urine output, electrolytes and kidney function. On further review of her kidney function, she had normal creatinine before discharge on December 12 but in December 2016 she had acute kidney injury with creatinine 2.16 which got better with conservative management. She never required hemodialysis before this event. 3. Vancomycin and digoxin toxicity: We will repeat vancomycin and dig level after hemodialysis. 4. Diabetes mellitus type 2: On Accu-Chek before meals and at bedtime cover with NovoLog sliding scale. Adjust insulin as per Accu-Cheks. 5. Multiple bilateral nonhealing diabetic MRSA leg ulcer status post extensive debridement, incision and drainage and wound VAC: Wound care nurse has been consulted. She had debridement during her last admission in November 2017 as mentioned above. 6. Chronic A. fib: Patient was on digoxin, Cardizem, Nadolol and Coumadin: Medications are on hold for severe bradycardia and coagulopathy Acute on chronic anemia secondary to multiple comorbidities: Hemoglobin found is 8.8. Platelet 395,000 other comorbidities include pulmonary hypertension, morbid obesity, hypertension, chronic diastolic heart failure and super morbid obesity: Home medication reconciliation done. Multiple comorbidities complicates the present care. Total time spent in [id number] encounter, review of lab from ER, discussion with the consultants, Dr. Powell and Dr. Romero and with the family member, more than 50 minutes The present care discussed with the patient's son and other family members. This note was generated with [employer] dictation software. Every effort was made to ensure accuracy, however computerized plumber cub mistakes may persist. [] Code Visit Inpatient E&M: 28252 Init Hosp L3
--- NOTE | 2017-12-24 15:27 | PCM.OP.BLANK ---
Operative Report Date of Procedure: 12/24/17 - Dialysis catheter insertion Dialysis catheter placement procedure note Indication: Dialysis Procedure: A time-out was completed to verify correct patient, indication, medication allergies, procedure, coagulation studies, informed consent signed, and equipment needed. The patient was placed in the supine position for a central line placement to the rt IJ vein. The patients rt neck was prepped using chlorhexidine and a full body sterile drape was applied. 1% lidocaine was used to anesthetize the surrounding skin. A 12fr 16 cm temporary dialysis catheter introduced into the internal jugular vein using the modified Seldinger technique with the assistance of ultrasound. The site was dilated twice in a stepwise fashion. The catheter was threaded smoothly over the guidewire, the guidewire was removed easily, nonpulsatile blood returned. All ports were aspirated of air and flushed with sterile saline, and then locked with 1.3 cc in each port of U 1000 heparin. The catheter was sutured in place and covered with an occlusive dressing impregnated with chlorhexidine. Post-procedure: The patient tolerated the procedure well. Vital signs remained stable. EBL 7 cc. No complications. Chest X Ray ordered to confirm tip placement and the absence of pneumothorax. Code Visit Procedures: 38518 Insert Non-tunnel CV Cath
--- NOTE | 2017-12-24 15:31 | HP.PCM_ITS ---
Problem List (1) Acute kidney injury Status: Acute (2) Hyperkalemia Status: Acute (3) Digoxin toxicity Status: Acute (4) Vancomycin toxicity Status: Acute (5) Abscess of left lower extremity Status: Chronic Comment: nonhealing infected MRSA diabetic ulcer abscess left posterior leg (6) Abscess of right lower extremity Status: Chronic Comment: nonhealing infected MRSA diabetic ulcer abscess right posterior leg nonhealing infected MRSA diabetic ulcer abscess right posterior thigh (7) Cellulitis of leg, right Status: Chronic (8) Diabetes with ulcer of lower extremity Status: Chronic Comment: nonhealing infected MRSA diabetic ulcers bilateral posterior legs (9) Methicillin resistant Staphylococcus aureus infection Status: Chronic (10) Chronic atrial fibrillation Status: Chronic (11) Congestive heart failure Status: Chronic (12) Hypertension Status: Chronic (13) Morbid obesity Status: Chronic (14) Pulmonary hypertension Status: Chronic (15) Type 2 diabetes mellitus Status: Chronic (16) Acute on chronic congestive heart failure Status: Suspected History of Present Illness Date of Admission: 12/24/17 Chief Complaint: Altered mental status AND kidney failure The patient is a 57 year old F with multiple medical comorbidities including diabetes mellitus type 2, pulmonary hypertension, chronic A. fib and MRSA cellulitis with nonhealing ulcer on bilateral lower extremities status post extensive debridement and wound VAC placement during last admission from December 06- and discharged to halfway on IV vancomycin. As per the son, patient was having periods of confusion, weakness, hallucinations and muscle twitching for last 5-7 days. During labs done in [facility], patient was found to have kidney failure with high BUN, creatinine and dig level. As per the EMS note, patient was also short of breath and weak found to have bradycardia. Patient was transferred to [facility] ER, patient heart rate dropped to 17-40 /M and was given half ampule of atropine. Initial labs done in ER was markedly abnormal for digoxin 2.94, BUN 67, creatinine 7.2 and K 5.5. INR 3.6. Vanco level was 141 and INR 6.9 on December 23. Patient also had 500 normal saline bolus when her blood pressure was systolic 80s-90s, she also received fentanyl 50 mcg. EKG shows atrial fibrillation 35 bpm Patient was transferred to ICU directly. Patient has right arm PICC line. [] Past Medical History Past Medical History (Chronic Problems): Chronic Problems (Last Updated 12/07/17 @ 09:05 by Thomas Carrasco MD) Abscess of right lower extremity (Chronic) nonhealing infected MRSA diabetic ulcer abscess right posterior leg nonhealing infected MRSA diabetic ulcer abscess right posterior thigh Abscess of left lower extremity (Chronic) nonhealing infected MRSA diabetic ulcer abscess left posterior leg Methicillin resistant Staphylococcus aureus infection (Chronic) Diabetes with ulcer of lower extremity (Chronic) nonhealing infected MRSA diabetic ulcers bilateral posterior legs Pulmonary hypertension (Chronic) Cellulitis of leg, right (Chronic) Morbid obesity (Chronic) Congestive heart failure (Chronic) Chronic atrial fibrillation (Chronic) Type 2 diabetes mellitus (Chronic) Hypertension (Chronic) Allergies latex Allergy (Verified 03/26/15 11:04) Itching pentazocine lactate [From Talwin] Allergy (Verified 03/26/15 11:04) Itching phenobarbital Allergy (Verified 03/26/15 11:04) Itching tree nut Allergy (Verified 03/26/15 11:04) Anaphylaxis codeine Adverse Reaction (Verified 03/26/15 11:04) Upset Stomach Home Medications: Ambulatory Orders Medication Instructions Recorded Citalopram [Celexa] 40 mg PO DAILY 03/20/15 Digoxin [Digitek] 250 mcg PO DAILY 03/20/15 Exenatide [Byetta (BKC)] 5 mcg SC BIDCM 03/20/15 Lisinopril [Zestril] 10 mg PO DAILY 03/20/15 Metformin HCl [Glucophage] 1,000 mg PO BIDCM 03/20/15 Nadolol [Corgard (Beta Mk)] 120 mg PO DAILY 03/20/15 Torsemide [Demadex] 20 mg PO BID 03/20/15 Gabapentin [Neurontin] 400 mg PO 4X/DAY 12/30/16 Insulin Aspart [Novolog Flexpen] 14 units SC TIDCM 12/30/16 Insulin Glargine,Hum.rec.anlog 46 unit SQ QHS 12/30/16 [Lantus] Warfarin [Coumadin] 10 mg PO TUTHSA 12/30/16 Warfarin [Coumadin] 11 mg PO SUMOWEFR 12/30/16 albuterol sulfate HFA 90 2 puff INHALATION Q4H PRN g 08/26/17 mcg/actuation aerosol inhaler fluticasone 50 mcg/actuation nasal 2 spray INTRANASAL DAILY 08/26/17 spray,suspension Budesonide/Formoterol 160/4.5 2 inh INHALATION Q12H 12/06/17 [Symbicort 160/4.5 Mcg Inhaler (SP)] Diltiazem HCl [Diltiazem 24Hr ER] 120 mg PO DAILY 12/06/17 Bisacodyl [Dulcolax] 5 mg PO DAILY tablet 12/14/17 Ceftriaxone 2 gm IV Q24 #10 vial 12/14/17 Docusate Sodium [Colace] 100 mg PO BID capsule 12/14/17 Ferrous Sulfate 325 mg PO BIDCM tablet 12/14/17 Glucerna Shake 120 ml PO TIDCM liquid 12/14/17 Lorazepam [Ativan] 1 mg PO TID PRN PRN #10 tab 12/14/17 Metronidazole [Flagyl] 500 mg PO TID #30 tablet 12/14/17 Nutritional Supplement [Josafat - 1 packet PO BIDCM packet 12/14/17 ORANGE FLAVOR] Nystatin Powder [Mycostatin Powder] 1 applic TOPICAL TID bottle 12/14/17 Oxycodone [Oxyir] 5 - 10 mg PO Q6H PRN PRN #10 tab 12/14/17 Vancomycin 1,500 mg IV Q12H #10 vial 12/14/17 Surgical History: cholecystectomy, hysterectomy - with BSO, tonsillectomy, - - 2 section. 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 Denies: Chills, Fever HEENT: Denies: Head Aches, Sinus Congestion, Sinus Drainage Cardiovascular: Denies: Chest Pain, Palpitations Respiratory: Reports: Shortness of Breath. Denies: Cough, Shortness of breath at rest, Sputum production Gastrointestinal: Denies: Abdominal Pain, Nausea, Vomiting Genitourinary: Denies: Dysuria Musculoskeletal: Reports: Joint Pain, Joint stiffness, Joint swelling. Denies: Joint Tenderness Skin: Reports: Rash, Wounds, - - Has wound VAC Neurological: Denies: Numbness, Tingling, Focal weakness Psychiatric: Denies: Anxiety, Depression, Homicidal Ideations, Suicidal Ideations Hematologic/ Lymphatic: Denies: Easy Bleeding VTE Information - Inpt Only VTE Present on Admission: No VTE Mechan Device Prophylaxis: SCD's VTE Pharm Prophylaxis ordered?: No Reason prophylaxis not ordered:: Medical Contraindication - Coagulopathy Patient Problems: Active and Suspected Problems (Last Updated 12/07/17 @ 09:05 by Thomas Carrasco MD) Acute kidney injury (Acute) Hyperkalemia (Acute) Digoxin toxicity (Acute) Vancomycin toxicity (Acute) - Physical Exam General: Alert, Oriented x3, Cooperative, Lethargic HEENT: Atraumatic, PERRLA, EOMI, Normocephalic Oral: Dry Mucosa Neck: Supple, No JVD, Negative Carotid Bruits Lungs: Clear to auscultation, No rhonchi, No wheeze, No rales, Diminished Cardiovascular: Normal S1, Normal S2, No murmurs, Bradycardic Abdomen: Bowel Sounds Present, Soft, Non Tender, Non-Distended Extremities: Capillary Refill Less than 3 Seconds, Edema Skin: Ulcer/ Wound - Multiple wounds present or bilateral lower extremities, 2 each on bilateral lower legs, lateral aspect and one on right thigh. wound vac present Musculoskeletal: No Tenderness to Palpation of Joints or Extremities Neurological: Cranial nerves II-XII grossly intact Psych/Mental Status: Normal Affect, Appropriate Vital Signs Pulse Ox 95 12/24/17 15:15 Oxygen Flow Rate (L/min) 4 Oxygen Delivery Method Nasal Cannula Assessment/Plan Active and Suspected Problems (Last Updated 12/07/17 @ 09:05 by Thomas Carrasco MD) Acute kidney injury (Acute) Hyperkalemia (Acute) Digoxin toxicity (Acute) Vancomycin toxicity (Acute) The patient is a 57 year old F with multiple medical comorbidities including diabetes mellitus type 2, pulmonary hypertension, chronic A. fib and MRSA cellulitis with nonhealing ulcer on bilateral lower extremities status post extensive debridement and wound VAC placement during last admission from December 06- and discharged to halfway on IV vancomycin. As per the son, patient was having periods of confusion, weakness, hallucinations and muscle twitching for last 5-7 days. During labs done in [facility], patient was found to have kidney failure with high BUN, creatinine and dig level. As per the EMS note, patient was also short of breath and weak found to have bradycardia. Patient was transferred to [facility], patient heart rate dropped to 17-40 /M and was given half ampule of atropine. Initial labs done in ER was markedly abnormal for digoxin 2.94, BUN 67, creatinine 7.2 and K 5.5. INR 3.6. Vanco level was 141 and INR 6.9 on December 23. Patient also had 500 normal saline bolus when her blood pressure was systolic 80s-90s, she also received fentanyl 50 mcg. EKG shows atrial fibrillation 35 bpm Patient was transferred and admitted directly in ICU. Patient has right arm PICC line. 1. Severe bradycardia with hypotension: The patient when seen in ICU, heart rate in 50s and blood pressure 110-120s. At times, patient has got sinus pause. Clean Out Driller and wound care center consultant was consulted. The consent was taken for dialysis catheter insertion for emergent dialysis; right IJ dialysis catheter was inserted by assistant property manager. Discussed with the family member including patient 's son. 2. Acute kidney injury with hyperkalemia: Needs urgent hemodialysis. Urine output about 100 mL of dark brown color. Follow-up urine output, electrolytes and kidney function. On further review of her kidney function, she had normal creatinine before discharge on December 12 but in December 2016 she had acute kidney injury with creatinine 2.16 which got better with conservative management. She never required hemodialysis before this event. 3. Vancomycin and digoxin toxicity: We will repeat vancomycin and dig level after hemodialysis. 4. Diabetes mellitus type 2: On Accu-Chek before meals and at bedtime cover with NovoLog sliding scale. Adjust insulin as per Accu-Cheks. 5. Multiple bilateral nonhealing diabetic MRSA leg ulcer status post extensive debridement, incision and drainage and wound VAC: Wound care nurse has been consulted. She had debridement during her last admission in November 2017 as mentioned above. 6. Chronic A. fib: Patient was on digoxin, Cardizem, Nadolol and Coumadin: Medications are on hold for severe bradycardia and coagulopathy Acute on chronic anemia secondary to multiple comorbidities: Hemoglobin found is 8.8. Platelet 395,000 other comorbidities include pulmonary hypertension, morbid obesity, hypertension, chronic diastolic heart failure and super morbid obesity: Home medication reconciliation done. Multiple comorbidities complicates the present care. Total time spent in [id number] encounter, review of lab from ER, discussion with the consultants, Dr. Powell and Dr. Romero and with the family member, more than 50 minutes The present care discussed with the patient's son and other family members. This note was generated with [employer] dictation software. Every effort was made to ensure accuracy, however computerized quarter trimmer mistakes may persist. [] Code Visit Inpatient E&M: 66290 Init Hosp L3
--- NOTE | 2017-12-24 16:10 | PCM.CON.CC ---
Problem List (1) Acute kidney injury Status: Acute (2) Hyperkalemia Status: Acute (3) Digoxin toxicity Status: Acute Qualifiers: Encounter type: initial encounter Injury intent: accidental or unintentional Qualified Code(s): T46.0X1A - Poisoning by cardiac-stimulant glycosides and drugs of similar action, accidental (unintentional), initial encounter (4) Vancomycin toxicity Status: Acute (5) Abscess of right lower extremity Status: Chronic Comment: nonhealing infected MRSA diabetic ulcer abscess right posterior leg nonhealing infected MRSA diabetic ulcer abscess right posterior thigh (6) Abscess of left lower extremity Status: Chronic Comment: nonhealing infected MRSA diabetic ulcer abscess left posterior leg (7) Methicillin resistant Staphylococcus aureus infection Status: Chronic (8) Diabetes with ulcer of lower extremity Status: Chronic Comment: nonhealing infected MRSA diabetic ulcers bilateral posterior legs (9) Pulmonary hypertension Status: Chronic (10) Cellulitis of leg, right Status: Chronic (11) Acute on chronic congestive heart failure Status: Suspected (12) Morbid obesity Status: Chronic (13) Chronic atrial fibrillation Status: Chronic (14) Type 2 diabetes mellitus Status: Chronic (15) Hypertension Status: Chronic Reason for Consult Date of Consultation: 12/24/17 Reason for Consultation: Bradycardia History of Present Illness: The patient is a 57 year old F, with past medical history listed below, who presented to [facility] on 12/24/2017 secondary to bradycardia. Patient had recently been to [facility] in November with extensive lower extremity nonhealing ulcers that required debridement and wound VAC. Patient was discharged to a [facility] on IV vancomycin. Per the patient's son, approximately 1 week ago patient started having periods of confusion, hallucinations and muscle twitching. Patient was from [facility] and labs were drawn yesterday showing an elevated vancomycin level and creatinine. No action was taken except for a repeat draw this morning. Patient was noted to have a digoxin level of 3, potassium of 5.5 and a creatinine of 7.2. Patient was transported to [facility] for evaluation At [facility], patient was bradycardic into the 20s with hypotension. Patient was given IV fluids and atropine with some improvement. Patient was then transferred to [facility] for possible dialysis. On presentation, patient was alert and oriented and answering appropriately. Patient states that she has a history of renal dysfunction in the past, but is never had hemodialysis. Patient did report significant dizziness with any change in movement. Patient was noted to be bradycardic on telemetry. Reviewed risks and benefits of hemodialysis and patient agreed for hemodialysis line placement. Review of records from outside facility show an elevated INR over 3. Patient had not been given Digibind or Kayexalate that could be noted. Dr. Romero was notified and hemodialysis catheter was placed without incident. Patient is currently pending hemodialysis Past Medical History Past Medical History (Chronic Problems): Chronic Problems (Last Updated 12/07/17 @ 09:05 by Thomas Carrasco MD) Abscess of right lower extremity (Chronic) nonhealing infected MRSA diabetic ulcer abscess right posterior leg nonhealing infected MRSA diabetic ulcer abscess right posterior thigh Abscess of left lower extremity (Chronic) nonhealing infected MRSA diabetic ulcer abscess left posterior leg Methicillin resistant Staphylococcus aureus infection (Chronic) Diabetes with ulcer of lower extremity (Chronic) nonhealing infected MRSA diabetic ulcers bilateral posterior legs Pulmonary hypertension (Chronic) Cellulitis of leg, right (Chronic) Morbid obesity (Chronic) Congestive heart failure (Chronic) Chronic atrial fibrillation (Chronic) Type 2 diabetes mellitus (Chronic) Hypertension (Chronic) Allergies latex Allergy (Verified 03/26/15 11:04) Itching pentazocine lactate [From Talwin] Allergy (Verified 03/26/15 11:04) Itching phenobarbital Allergy (Verified 03/26/15 11:04) Itching tree nut Allergy (Verified 03/26/15 11:04) Anaphylaxis codeine Adverse Reaction (Verified 03/26/15 11:04) Upset Stomach Home Medications: Ambulatory Orders Medication Instructions Recorded Citalopram [Celexa] 40 mg PO DAILY 03/20/15 Digoxin [Digitek] 250 mcg PO DAILY 03/20/15 Exenatide [Byetta (BKC)] 5 mcg SC BIDCM 03/20/15 Lisinopril [Zestril] 10 mg PO DAILY 03/20/15 Metformin HCl [Glucophage] 1,000 mg PO BIDCM 03/20/15 Nadolol [Corgard (Beta Mk)] 120 mg PO DAILY 03/20/15 Torsemide [Demadex] 20 mg PO BID 03/20/15 Gabapentin [Neurontin] 400 mg PO 4X/DAY 12/30/16 Insulin Aspart [Novolog Flexpen] 14 units SC TIDCM 12/30/16 Insulin Glargine,Hum.rec.anlog 46 unit SQ QHS 12/30/16 [Lantus] Warfarin [Coumadin] 10 mg PO TUTHSA 12/30/16 Warfarin [Coumadin] 11 mg PO SUMOWEFR 12/30/16 albuterol sulfate HFA 90 2 puff INHALATION Q4H PRN g 08/26/17 mcg/actuation aerosol inhaler fluticasone 50 mcg/actuation nasal 2 spray INTRANASAL DAILY 08/26/17 spray,suspension Budesonide/Formoterol 160/4.5 2 inh INHALATION Q12H 12/06/17 [Symbicort 160/4.5 Mcg Inhaler (SP)] Diltiazem HCl [Diltiazem 24Hr ER] 120 mg PO DAILY 12/06/17 Bisacodyl [Dulcolax] 5 mg PO DAILY tablet 12/14/17 Ceftriaxone 2 gm IV Q24 #10 vial 12/14/17 Docusate Sodium [Colace] 100 mg PO BID capsule 12/14/17 Ferrous Sulfate 325 mg PO BIDCM tablet 12/14/17 Glucerna Shake 120 ml PO TIDCM liquid 12/14/17 Lorazepam [Ativan] 1 mg PO TID PRN PRN #10 tab 12/14/17 Metronidazole [Flagyl] 500 mg PO TID #30 tablet 12/14/17 Nutritional Supplement [Josafat - 1 packet PO BIDCM packet 12/14/17 ORANGE FLAVOR] Nystatin Powder [Mycostatin Powder] 1 applic TOPICAL TID bottle 12/14/17 Oxycodone [Oxyir] 5 - 10 mg PO Q6H PRN PRN #10 tab 12/14/17 Vancomycin 1,500 mg IV Q12H #10 vial 12/14/17 Surgical History: cholecystectomy, hysterectomy - with BSO, tonsillectomy, - - 2 section. Psychiatric History: No pertinent psych hx ACADEMIC SUPPORT DIRECTOR History: No pertinent ACADEMIC SUPPORT DIRECTOR history Smoking Status: Former smoker - *Family History Maternal History Items: No pertinent history Paternal History Items: No pertinent history Review of Systems Comment: See HPI, otherwise negative ?10 systems. Patient Problems: Active and Suspected Problems (Last Updated 12/07/17 @ 09:05 by Thomas Carrasco MD) Acute kidney injury (Acute) Hyperkalemia (Acute) Digoxin toxicity (Acute) Vancomycin toxicity (Acute) Objective: Chest x-ray was reviewed and showed proper placement of hemodialysis line. PICC line is in place. Some interstitial edema was appreciated. ER notes from outside facility were reviewed. - Physical Exam General: Alert, Oriented x3, Cooperative, No apparent distress, - - Morbidly obese. Speaking in full sentences. HEENT: Atraumatic, PERRLA, EOMI, Normocephalic, - - Slight scleral injection without icterus Oral: Moist Mucosa, No Gingival or Mucosal Lesions/ Ulcerations Neck: Supple, No JVD, No Nodes, Trachea Midline Lungs: No rhonchi, No wheeze, No rales, Diminished Cardiovascular: Normal S1, Normal S2, No murmurs, Bradycardic, No rub noted, No Gallop Abdomen: Bowel Sounds Present, Soft, Non Tender, Non-Distended, Obese Extremities: No clubbing, No cyanosis, Edema Skin: - - Large wound bilateral lower extremities. Do not appear infected. Venous stasis changes lower extremities. Musculoskeletal: No Tenderness to Palpation of Joints or Extremities, No Muscle Wasting Lymphatic: No Cervical, Supraclavicular, or Inguinal Adenopathy Neurological: Cranial nerves II-XII grossly intact, Neuro grossly intact, Sensory exam intact to light touch and pain Psych/Mental Status: Alert and oriented to time, place, person, mood and affect Vital Signs Pulse Ox 95 12/24/17 15:15 Oxygen Flow Rate (L/min) 4 Oxygen Delivery Method Nasal Cannula Clinical Impression(s) from Imaging Studies Chest X-Ray 12/24/17 15:10 IMPRESSION: Right IJ central venous catheter as above with diffuse pulmonary edema Electronically Signed: Clinton Gallagher DO at 15:56 EDT Tel , Service support , Multiple pages laboratory data from outside facility were reviewed. Assessment/Plan Active and Suspected Problems (Last Updated 12/07/17 @ 09:05 by Thomas Carrasco MD) Acute kidney injury (Acute) Hyperkalemia (Acute) Digoxin toxicity (Acute) Vancomycin toxicity (Acute) RECOMMENDATIONS: 1. Emergent hemodialysis 2. BiPAP nightly as needed 3. Hold metformin, Coumadin, vancomycin, Flagyl, digoxin and nadolol 4. Sliding scale insulin 5. Wean oxygen as tolerated IMPRESSIONS: 1. Sinus bradycardia Factorial etiology of sinus bradycardia including elevated potassium and digoxin. Patient has responded to atropine previously. Will dose atropine as necessary. Patient has had a hemodialysis line placed and will undergo emergent hemodialysis this evening. 2. Acute renal failure secondary to drug toxicity She does have a history of congestive heart failure and is on Lasix therapy at baseline. Patient did continue to make urine, but calcium is elevated. Patient is on Coumadin therapy and does have an elevated INR. However, line placement appears to have no complications at this time. Will not actively reverse INR. Nephrology has been consulted. 3. Acute on chronic diastolic congestive heart failure Patient has been treated with Lasix in the past. Patient does have increased alveolar infiltrates noted on chest x-ray. Patient currently on 4 L nasal cannula. Will attempt volume removal with hemodialysis. Hold nadolol for now given patient's bradycardia. Likely resume baseline medications in the next 24-48 hours. 4. Personal history of chronic atrial fibrillation/hypertension/heart failure/pulmonary hypertension Patient appears to be in atrial fibrillation at this time. Patient is anticoagulated. Bradycardia multifactorial. Hold on further anticoagulation at this time. Patient would benefit from nocturnal BiPAP therapy. 5. Diabetes type II Continue sliding scale insulin coverage and Accu-Cheks. 6. Super morbid obesity/depression/neuropathy Complicates care, management, recovery and prognosis. Resume home medications as indicated. Physical therapy to continue work with patient. TIME: 33 minutes critical care time spent addressing patient's acute renal failure, hypoxemia, review of all data and collaboration with care team Code Visit [id number]: [id number] Critical care first hour
--- NOTE | 2017-12-24 16:27 | CON.PCM_ITS ---
Problem List (1) Acute kidney injury Status: Acute (2) Hyperkalemia Status: Acute (3) Digoxin toxicity Status: Acute Qualifiers: Encounter type: initial encounter Injury intent: accidental or unintentional Qualified Code(s): T46.0X1A - Poisoning by cardiac-stimulant glycosides and drugs of similar action, accidental (unintentional), initial encounter (4) Vancomycin toxicity Status: Acute (5) Abscess of right lower extremity Status: Chronic Comment: nonhealing infected MRSA diabetic ulcer abscess right posterior leg nonhealing infected MRSA diabetic ulcer abscess right posterior thigh (6) Abscess of left lower extremity Status: Chronic Comment: nonhealing infected MRSA diabetic ulcer abscess left posterior leg (7) Methicillin resistant Staphylococcus aureus infection Status: Chronic (8) Diabetes with ulcer of lower extremity Status: Chronic Comment: nonhealing infected MRSA diabetic ulcers bilateral posterior legs (9) Pulmonary hypertension Status: Chronic (10) Cellulitis of leg, right Status: Chronic (11) Acute on chronic congestive heart failure Status: Suspected (12) Morbid obesity Status: Chronic (13) Chronic atrial fibrillation Status: Chronic (14) Type 2 diabetes mellitus Status: Chronic (15) Hypertension Status: Chronic Reason for Consult Date of Consultation: 12/24/17 Reason for Consultation: Bradycardia History of Present Illness: The patient is a 57 year old F, with past medical history listed below, who presented to [facility] on 12/24/2017 secondary to bradycardia. Patient had recently been to [facility] in November with extensive lower extremity nonhealing ulcers that required debridement and wound VAC. Patient was discharged to a [facility] on IV vancomycin. Per the patient's son, approximately 1 week ago patient started having periods of confusion, hallucinations and muscle twitching. Patient was from [facility] and labs were drawn yesterday showing an elevated vancomycin level and creatinine. No action was taken except for a repeat draw this morning. Patient was noted to have a digoxin level of 3, potassium of 5.5 and a creatinine of 7.2. Patient was transported to [facility] for evaluation At [facility], patient was bradycardic into the 20s with hypotension. Patient was given IV fluids and atropine with some improvement. Patient was then transferred to [facility] for possible dialysis. On presentation, patient was alert and oriented and answering appropriately. Patient states that she has a history of renal dysfunction in the past, but is never had hemodialysis. Patient did report significant dizziness with any change in movement. Patient was noted to be bradycardic on telemetry. Reviewed risks and benefits of hemodialysis and patient agreed for hemodialysis line placement. Review of records from outside facility show an elevated INR over 3. Patient had not been given Digibind or Kayexalate that could be noted. Dr. Romero was notified and hemodialysis catheter was placed without incident. Patient is currently pending hemodialysis Past Medical History Past Medical History (Chronic Problems): Chronic Problems (Last Updated 12/07/17 @ 09:05 by Thomas Carrasco MD) Abscess of right lower extremity (Chronic) nonhealing infected MRSA diabetic ulcer abscess right posterior leg nonhealing infected MRSA diabetic ulcer abscess right posterior thigh Abscess of left lower extremity (Chronic) nonhealing infected MRSA diabetic ulcer abscess left posterior leg Methicillin resistant Staphylococcus aureus infection (Chronic) Diabetes with ulcer of lower extremity (Chronic) nonhealing infected MRSA diabetic ulcers bilateral posterior legs Pulmonary hypertension (Chronic) Cellulitis of leg, right (Chronic) Morbid obesity (Chronic) Congestive heart failure (Chronic) Chronic atrial fibrillation (Chronic) Type 2 diabetes mellitus (Chronic) Hypertension (Chronic) Allergies latex Allergy (Verified 03/26/15 11:04) Itching pentazocine lactate [From Talwin] Allergy (Verified 03/26/15 11:04) Itching phenobarbital Allergy (Verified 03/26/15 11:04) Itching tree nut Allergy (Verified 03/26/15 11:04) Anaphylaxis codeine Adverse Reaction (Verified 03/26/15 11:04) Upset Stomach Home Medications: Ambulatory Orders Medication Instructions Recorded Citalopram [Celexa] 40 mg PO DAILY 03/20/15 Digoxin [Digitek] 250 mcg PO DAILY 03/20/15 Exenatide [Byetta (BKC)] 5 mcg SC BIDCM 03/20/15 Lisinopril [Zestril] 10 mg PO DAILY 03/20/15 Metformin HCl [Glucophage] 1,000 mg PO BIDCM 03/20/15 Nadolol [Corgard (Beta Mk)] 120 mg PO DAILY 03/20/15 Torsemide [Demadex] 20 mg PO BID 03/20/15 Gabapentin [Neurontin] 400 mg PO 4X/DAY 12/30/16 Insulin Aspart [Novolog Flexpen] 14 units SC TIDCM 12/30/16 Insulin Glargine,Hum.rec.anlog 46 unit SQ QHS 12/30/16 [Lantus] Warfarin [Coumadin] 10 mg PO TUTHSA 12/30/16 Warfarin [Coumadin] 11 mg PO SUMOWEFR 12/30/16 albuterol sulfate HFA 90 2 puff INHALATION Q4H PRN g 08/26/17 mcg/actuation aerosol inhaler fluticasone 50 mcg/actuation nasal 2 spray INTRANASAL DAILY 08/26/17 spray,suspension Budesonide/Formoterol 160/4.5 2 inh INHALATION Q12H 12/06/17 [Symbicort 160/4.5 Mcg Inhaler (SP)] Diltiazem HCl [Diltiazem 24Hr ER] 120 mg PO DAILY 12/06/17 Bisacodyl [Dulcolax] 5 mg PO DAILY tablet 12/14/17 Ceftriaxone 2 gm IV Q24 #10 vial 12/14/17 Docusate Sodium [Colace] 100 mg PO BID capsule 12/14/17 Ferrous Sulfate 325 mg PO BIDCM tablet 12/14/17 Glucerna Shake 120 ml PO TIDCM liquid 12/14/17 Lorazepam [Ativan] 1 mg PO TID PRN PRN #10 tab 12/14/17 Metronidazole [Flagyl] 500 mg PO TID #30 tablet 12/14/17 Nutritional Supplement [Josafat - 1 packet PO BIDCM packet 12/14/17 ORANGE FLAVOR] Nystatin Powder [Mycostatin Powder] 1 applic TOPICAL TID bottle 12/14/17 Oxycodone [Oxyir] 5 - 10 mg PO Q6H PRN PRN #10 tab 12/14/17 Vancomycin 1,500 mg IV Q12H #10 vial 12/14/17 Surgical History: cholecystectomy, hysterectomy - with BSO, tonsillectomy, - - 2 section. 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 Patient Problems: Active and Suspected Problems (Last Updated 12/07/17 @ 09:05 by Thomas Carrasco MD) Acute kidney injury (Acute) Hyperkalemia (Acute) Digoxin toxicity (Acute) Vancomycin toxicity (Acute) Objective: Chest x-ray was reviewed and showed proper placement of hemodialysis line. PICC line is in place. Some interstitial edema was appreciated. ER notes from outside facility were reviewed. - Physical Exam General: Alert, Oriented x3, Cooperative, No apparent distress, - - Morbidly obese. Speaking in full sentences. HEENT: Atraumatic, PERRLA, EOMI, Normocephalic, - - Slight scleral injection without icterus Oral: Moist Mucosa, No Gingival or Mucosal Lesions/ Ulcerations Neck: Supple, No JVD, No Nodes, Trachea Midline Lungs: No rhonchi, No wheeze, No rales, Diminished Cardiovascular: Normal S1, Normal S2, No murmurs, Bradycardic, No rub noted, No Gallop Abdomen: Bowel Sounds Present, Soft, Non Tender, Non-Distended, Obese Extremities: No clubbing, No cyanosis, Edema Skin: - - Large wound bilateral lower extremities. Do not appear infected. Venous stasis changes lower extremities. Musculoskeletal: No Tenderness to Palpation of Joints or Extremities, No Muscle Wasting Lymphatic: No Cervical, Supraclavicular, or Inguinal Adenopathy Neurological: Cranial nerves II-XII grossly intact, Neuro grossly intact, Sensory exam intact to light touch and pain Psych/Mental Status: Alert and oriented to time, place, person, mood and affect Vital Signs Pulse Ox 95 12/24/17 15:15 Oxygen Flow Rate (L/min) 4 Oxygen Delivery Method Nasal Cannula Clinical Impression(s) from Imaging Studies Chest X-Ray 12/24/17 15:10 IMPRESSION: Right IJ central venous catheter as above with diffuse pulmonary edema Electronically Signed: Clinton Gallagher DO at 15:56 EDT Tel , Service support , Multiple pages laboratory data from outside facility were reviewed. Assessment/Plan Active and Suspected Problems (Last Updated 12/07/17 @ 09:05 by Thomas Carrasco MD) Acute kidney injury (Acute) Hyperkalemia (Acute) Digoxin toxicity (Acute) Vancomycin toxicity (Acute) RECOMMENDATIONS: 1. Emergent hemodialysis 2. BiPAP nightly as needed 3. Hold metformin, Coumadin, vancomycin, Flagyl, digoxin and nadolol 4. Sliding scale insulin 5. Wean oxygen as tolerated IMPRESSIONS: 1. Sinus bradycardia Factorial etiology of sinus bradycardia including elevated potassium and digoxin. Patient has responded to atropine previously. Will dose atropine as necessary. Patient has had a hemodialysis line placed and will undergo emergent hemodialysis this evening. 2. Acute renal failure secondary to drug toxicity She does have a history of congestive heart failure and is on Lasix therapy at baseline. Patient did continue to make urine, but calcium is elevated. Patient is on Coumadin therapy and does have an elevated INR. However, line placement appears to have no complications at this time. Will not actively reverse INR. Nephrology has been consulted. 3. Acute on chronic diastolic congestive heart failure Patient has been treated with Lasix in the past. Patient does have increased alveolar infiltrates noted on chest x-ray. Patient currently on 4 L nasal cannula. Will attempt volume removal with hemodialysis. Hold nadolol for now given patient's bradycardia. Likely resume baseline medications in the next 24-48 hours. 4. Personal history of chronic atrial fibrillation/hypertension/heart failure/pulmonary hypertension Patient appears to be in atrial fibrillation at this time. Patient is anticoagulated. Bradycardia multifactorial. Hold on further anticoagulation at this time. Patient would benefit from nocturnal BiPAP therapy. 5. Diabetes type II Continue sliding scale insulin coverage and Accu-Cheks. 6. Super morbid obesity/depression/neuropathy Complicates care, management, recovery and prognosis. Resume home medications as indicated. Physical therapy to continue work with patient. TIME: 33 minutes critical care time spent addressing patient's acute renal failure , hypoxemia, review of all data and collaboration with care team Code Visit [id number]: [id number] Critical care first hour
[2017-12-24] MEDS: 0.9% Normal Saline 1,000 ML 100 ML IV ×2 (16:34→23:04)
[2017-12-24 16:46] LABS: Hemoglobin 8.6 g/dl (12.0-15.0); Mean Corp Hgb Conc 29.7 g/gl (32-36); Mean Corpuscular Volume 97.6 fL (81-99); Mean Platelet Vol. 9.5 fl (6.2-12.0); Platelet Count 317 K/mm3 (150-450); RBC Distribution Width CV 19.5 % (11.6-14.6); RBC Distribution Width SD 65.5 fl (35.1-43.9); Red Blood Count 2.97 M/mm3 (4.2-5.4)
[2017-12-24 16:51] LABS: Scan Indicated on CBC? Y/N YES- FLAGS NOTED
[2017-12-24 16:56] LABS: Partial Thromboplast Time 48.3 Seconds (24.1-36.2); Prothrombin Time (Protime)PT. 31.4 SECONDS (11.7-14.9)
[2017-12-24 17:02] LABS: ALB/GLOB Ratio 0.4 RATIO (0.9-2.4); AST(SGOT) 13 U/L (15-37); Alanine Aminotransfer ALT/SGPT 8 U/L (13-56); Albumin, Serum 2.4 g/dL (3.2-5.0); Alkaline Phosphatase 92 U/L (45-117); Anion Gap 9 (5-15); BUN 66 mg/dL (7-18); BUN/Creat Ratio 8.8 RATIO (10-20); Calcium,Total 8.1 mg/dL (8.5-10.1); Chloride 101 mmol/L (98-107); Creatinine, Serum 7.48 mg/dL (0.55-1.02); EST Glomerular Filtration Rate 6 mL/min (>60); Erythrocyte Sedimentation Rate 103 mm/hr (0-30); Est Glom Filt Rate - Afr Amer 7 mL/min (>60); Estimated Creatinine Clearance 7.58 ml/min; Globulin 5.7 g/dL (2.2-4.2); Glucose 92 mg/dL (74-106); Magnesium 2.3 mg/dL (1.6-2.6); Potassium 5.5 mmol/L (3.5-5.1); Protein, Total 8.1 g/dL (6.4-8.2); Sodium Level 137 mmol/L (136-145)
[2017-12-24 17:14] LABS: Lactic Acid 1.4 mmol/L (0.4-2.0)
--- NOTE | 2017-12-24 17:25 | PCM.CONS.R ---
Consultation - Renal 12/24/17 PCP/ Referring MD: Requesting physician: Dami Kim Primary care physician: Rajesh Reynolds Reason for Consultation:: DEQUAN, hyperkalemia, digoxin toxicity, vancomycin toxicity - History of Present Illness History of Present Illness: The patient is a 57 year old morbidly obese female transferred from [facility] for acute renal failure, digoxin toxicity, severe bradycardia with altered mental status. She presented with confusion, hallucinations since the weekend with muscle twitching noticed by the family. She was transferred to the [facility] intensive care unit today for further management and possible dialysis. She was recently hospitalized for multiple decubitus ulcers on her lower extremities posteriorly underwent debridement with wound vac placement. She was subsequently sent to [facility] with IV antibiotic therapy and continued wound care. Her creatinine was elevated at 7.2 with potassium 5.5. Digoxin level was elevated at 3. Vancomycin level was elevated. Her heart rate was in the 30s upon presentation to the emergency room. Blood pressure was low in the 90sin the emergency room and at F according to the patient and the patient family. Currently she is alert and oriented ?3. Family states her mental status is much improved upon admit to [facility]. Creatinine during last hospitalization was normal at 0.93 on December 12. Discharge medications included metformin, lisinopril, torsemide. She had decreased appetite and oral intake along with loose bowel movements. She has a history of chronic atrial fibrillation on anticoagulation along with digoxin, Cardizem, nadolol. Her antibiotics included IV vancomycin 1.5 g every 12 hours and ceftriaxone. Her urine output is poor with dark jen urine in her [place] bag. Patient has pulmonary hypertension with morbid obesity and sleep apnea. She admits to not using her CPAP at night. She is on oxygen at home with a concentrator. His medical history is significant for diabetes mellitus type 2, hypertension, chronic atrial fibrillation, chronic leg edema. She has been able to ambulate with a walker at home up until 2 weeks ago when she presented with her leg wounds. - Allergies Allergies: Allergies latex Allergy (Verified 03/26/15 11:04) Itching pentazocine lactate [From Talwin] Allergy (Verified 03/26/15 11:04) Itching phenobarbital Allergy (Verified 03/26/15 11:04) Itching tree nut Allergy (Verified 03/26/15 11:04) Anaphylaxis codeine Adverse Reaction (Verified 03/26/15 11:04) Upset Stomach - Current Medications Current Medications: Current Medications Acetaminophen (Tylenol) 650 mg PO Q6H PRN PRN PRN Reason: Mild Pain (1-3)/Temp > 100.7 F Sodium Chloride () 1,000 mls @ 100 mls/hr IV .Q10H [facility] Last Admin: 12/24/17 16:34 Dose: 100 mls/hr Magnesium Hydroxide (Milk Of Magnesia) 30 ml PO DAILY PRN PRN PRN Reason: Constipation Nutritional Formula (Lactose Free) (Glucerna Shake) 120 ml PO 4X/DAY [facility] Last Admin: 12/24/17 17:18 Dose: Not Given Oxycodone HCl (Oxyir) 5 - 10 mg PO Q4H PRN PRN PRN Reason: MOD-SEVERE PAIN (4-10/10) Psyllium Hydrophilic Mucilloid (Metamucil) 1 packet PO DAILY PRN PRN PRN Reason: CONSTIPATION Senna/Docusate Sodium (Senokot-S, Airam-Colace) 2 tablet PO BID PRN PRN PRN Reason: constipation - Past Medical History Past Medical History (Chronic Problems): Chronic Problems (Last Updated 12/07/17 @ 09:05 by Thomas Carrasco MD) Abscess of right lower extremity (Chronic) nonhealing infected MRSA diabetic ulcer abscess right posterior leg nonhealing infected MRSA diabetic ulcer abscess right posterior thigh Abscess of left lower extremity (Chronic) nonhealing infected MRSA diabetic ulcer abscess left posterior leg 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 - Social History Marital Status: - Ex- Smoking Status: Former smoker - Family History Maternal Family History: Family History (Last Updated 08/26/17 @ 10:41 by Erni Carter) Mother Colon cancer Diabetes Hypertension CHF (congestive heart failure) Father COPD (chronic obstructive pulmonary disease) Heart disease Diabetes Brother Heart disease Stomach cancer Sister Ovarian cancer History Items: No pertinent history Paternal Family History: Family History (Last Updated 08/26/17 @ 10:41 by Erin Carter) Mother Colon cancer Diabetes Hypertension CHF (congestive heart failure) Father COPD (chronic obstructive pulmonary disease) Heart disease Diabetes Brother Heart disease Stomach cancer Sister Ovarian cancer History Items: No pertinent history Review of Systems Constitutional: Reports: Anorexia, Weakness, Fatigue. Denies: Chills, Fever Eyes: Denies: Blurred vision HEENT: Denies: Head Aches Cardiovascular: Reports: Chest Pain - With bradycardia arrhythmia, Edema - chronic lymphedema, Light Headedness, Palpitations, - - Near syncope, - - Slow heartbeat. Denies: Syncope Respiratory: Reports: Shortness of Breath - With slow heartbeat. Denies: Cough Gastrointestinal: Reports: Diarrhea - Loose stools, - - Anorexia. Denies: Abdominal Pain, Constipation, Nausea, Vomiting Genitourinary: Denies: Dysuria, Hematuria Musculoskeletal: Reports: Leg Pain, - - Decubitus ulcers, - - Muscle weakness uses a walker for ambulation assistance lately has not been able to walk due to debilitation Skin: Reports: Wounds - Posterior leg and calf, dorsum of left foot Neurological: Reports: Balance problems, Confusion - Improved since transfer to [facility], Tremor - Twitching of upper extremities, - - Generalized weakness. Denies: Seizures Psychiatric: Reports: Anxiety, Depression Hematologic/ Lymphatic: Reports: Anemia. Denies: Hx of blood clot Patient Problems: Active and Suspected Problems (Last Updated 12/07/17 @ 09:05 by Thomas Carrasco MD) Acute kidney injury (Acute) Hyperkalemia (Acute) Digoxin toxicity (Acute) Vancomycin toxicity (Acute) - Physical Exam General: Alert, Oriented x3, Cooperative, - - Super morbidly obese, debilitated Oral: Dry Mucosa Neck: Supple, No JVD Lungs: Diminished Abdomen: Bowel Sounds Present, Soft, Non Tender, Non-Distended, Obese - Super Extremities: Edema - To sacrum Skin: Ulcer/ Wound - Posterior thigh and legs the wound VAC applied Musculoskeletal: No Muscle Wasting, Arthritic Changes Lymphatic: No Cervical, Supraclavicular, or Inguinal Adenopathy Neurological: Cranial nerves II-XII grossly intact, - - Tremors upper extremity Psych/Mental Status: Normal Affect, Appropriate, Alert and oriented to time, place, person, mood and affect Vital Signs Temp Pulse Resp BP Pulse Ox 97.4 F L 56 L 19 H 123/58 H 99 12/24/17 14:28 12/24/17 17:00 12/24/17 17:00 12/24/17 17:00 12/24/17 17:00 Oxygen Flow Rate (L/min) 3 Oxygen Delivery Method Nasal Cannula Weight: 188.7 kg Body Mass Index (BMI) 67.1 Laboratory Tests Past 24 Hrs 12/24/17 12/24/17 12/24/17 16:00 16:10 16:10 WBC 6.0 RBC 2.97 L Hgb 8.6 L Hct 29.0 L MCV 97.6 MCH 29.0 MCHC 29.7 L RDW 19.5 H RDW Differential 65.5 H Plt Count 317 MPV 9.5 ESR 103 H PT 31.4 H INR 3.0 APTT 48.3 H Sodium Potassium Chloride Carbon Dioxide Anion Gap BUN Creatinine Estim Creat Clear Calc Est GFR (MDRD) Af Amer Est GFR (MDRD) Non-Af BUN/Creatinine Ratio Glucose Lactic Acid Calcium Magnesium Total Bilirubin AST ALT Alkaline Phosphatase Troponin I Total Protein Albumin Globulin Albumin/Globulin Ratio MRSA (PCR) Pending 12/24/17 12/24/17 16:10 16:10 WBC RBC Hgb Hct MCV MCH MCHC RDW RDW Differential Plt Count MPV ESR PT INR APTT Sodium 137 Potassium 5.5 H Chloride 101 Carbon Dioxide 27.0 Anion Gap 9 BUN 66 H Creatinine 7.48 H* Estim Creat Clear Calc 7.58 Est GFR (MDRD) Af Amer 7 L Est GFR (MDRD) Non-Af 6 L BUN/Creatinine Ratio 8.8 L Glucose 92 Lactic Acid 1.4 Calcium 8.1 L Magnesium 2.3 Total Bilirubin 0.50 AST 13 L ALT 8 L Alkaline Phosphatase 92 Troponin I < 0.02 Total Protein 8.1 Albumin 2.4 L Globulin 5.7 H Albumin/Globulin Ratio 0.4 L MRSA (PCR) Clinical Impression(s) from Imaging Studies Chest X-Ray 12/24/17 15:10 IMPRESSION: Right IJ central venous catheter as above with diffuse pulmonary edema Electronically Signed: Clinton Gallagher DO at 15:56 EDT Tel , Service support , Assessment/Plan Active and Suspected Problems (Last Updated 12/07/17 @ 09:05 by Thomas Carrasco MD) Acute kidney injury (Acute) Hyperkalemia (Acute) Digoxin toxicity (Acute) Vancomycin toxicity (Acute) 1. Acute kidney injury multifactorial from medications, bradycardia cardia, hypotension. Check spot urine sodium and creatinine. Recommend hemodialysis for oliguric renal failure as well as for hyperkalemia, digoxin toxicity consequently with severe bradycardia, and history of altered mental status which apparently is improved according to the family. Creatinine 7.48 on admission. Baseline creatinine 0.93 from 12/12. Hold lisinopril and diuretic therapy. Discussed with family at bedside regarding hemodialysis and the potential risks involved including infection, bleeding, hypotension with subsequent NM or stroke event. They agreed to proceed with hemodialysis with temporary dialysis catheter placed by intensive care team. 2. Severe bradycardia arrhythmia from digoxin toxicity. Digibind relatively contraindicated due to renal failure. Will remove digoxin with dialysis tonight 3. Metabolic encephalopathy improved likely due to renal failure and gabapentin. 4. Hyperkalemia correct with hemodialysis 5. Vancomycin toxicity will correct with dialysis 6. MRSA leg wound. Continue wound VAC 7. Diabetes mellitus type 2. Discontinue metformin 8. Hypertension history with low blood pressure currently. Support with IV fluids as needed 9. Super morbid obesity with debilitation 10 sleep apnea, pulmonary hypertension with noncompliance with CPAP.
[2017-12-24 17:38] LABS: Probe Check PASS
--- NOTE | 2017-12-24 17:38 | CON.PCM_ITS ---
Consultation - Renal 12/24/17 PCP/ Referring MD: Requesting physician: Dami Kim Primary care physician: Rajesh Reynolds Reason for Consultation:: DEQUAN, hyperkalemia, digoxin toxicity, vancomycin toxicity - History of Present Illness History of Present Illness: The patient is a 57 year old morbidly obese female transferred from [facility] for acute renal failure, digoxin toxicity, severe bradycardia with altered mental status. She presented with confusion, hallucinations since the weekend with muscle twitching noticed by the family. She was transferred to the [facility] intensive care unit today for further management and possible dialysis. She was recently hospitalized for multiple decubitus ulcers on her lower extremities posteriorly underwent debridement with wound vac placement. She was subsequently sent to [facility] with IV antibiotic therapy and continued wound care. Her creatinine was elevated at 7.2 with potassium 5.5. Digoxin level was elevated at 3. Vancomycin level was elevated. Her heart rate was in the 30s upon presentation to the emergency room. Blood pressure was low in the 90sin the emergency room and at F according to the patient and the patient family. Currently she is alert and oriented ?3. Family states her mental status is much improved upon admit to [facility]. Creatinine during last hospitalization was normal at 0.93 on December 12. Discharge medications included metformin, lisinopril, torsemide. She had decreased appetite and oral intake along with loose bowel movements. She has a history of chronic atrial fibrillation on anticoagulation along with digoxin, Cardizem, nadolol. Her antibiotics included IV vancomycin 1.5 g every 12 hours and ceftriaxone. Her urine output is poor with dark jen urine in her [place] bag. Patient has pulmonary hypertension with morbid obesity and sleep apnea. She admits to not using her CPAP at night. She is on oxygen at home with a concentrator. His medical history is significant for diabetes mellitus type 2, hypertension, chronic atrial fibrillation, chronic leg edema. She has been able to ambulate with a walker at home up until 2 weeks ago when she presented with her leg wounds. - Allergies Allergies: Allergies latex Allergy (Verified 03/26/15 11:04) Itching pentazocine lactate [From Talwin] Allergy (Verified 03/26/15 11:04) Itching phenobarbital Allergy (Verified 03/26/15 11:04) Itching tree nut Allergy (Verified 03/26/15 11:04) Anaphylaxis codeine Adverse Reaction (Verified 03/26/15 11:04) Upset Stomach - Current Medications Current Medications: Current Medications Acetaminophen (Tylenol) 650 mg PO Q6H PRN PRN PRN Reason: Mild Pain (1-3)/Temp > 100.7 F Sodium Chloride () 1,000 mls @ 100 mls/hr IV .Q10H [facility] Last Admin: 12/24/17 16:34 Dose: 100 mls/hr Magnesium Hydroxide (Milk Of Magnesia) 30 ml PO DAILY PRN PRN PRN Reason: Constipation Nutritional Formula (Lactose Free) (Glucerna Shake) 120 ml PO 4X/DAY [facility] Last Admin: 12/24/17 17:18 Dose: Not Given Oxycodone HCl (Oxyir) 5 - 10 mg PO Q4H PRN PRN PRN Reason: MOD-SEVERE PAIN (4-10/10) Psyllium Hydrophilic Mucilloid (Metamucil) 1 packet PO DAILY PRN PRN PRN Reason: CONSTIPATION Senna/Docusate Sodium (Senokot-S, Airam-Colace) 2 tablet PO BID PRN PRN PRN Reason: constipation - Past Medical History Past Medical History (Chronic Problems): Chronic Problems (Last Updated 12/07/17 @ 09:05 by Thomas Carrasco MD) Abscess of right lower extremity (Chronic) nonhealing infected MRSA diabetic ulcer abscess right posterior leg nonhealing infected MRSA diabetic ulcer abscess right posterior thigh Abscess of left lower extremity (Chronic) nonhealing infected MRSA diabetic ulcer abscess left posterior leg 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 - Social History Marital Status: - Ex- Smoking Status: Former smoker - Family History Maternal Family History: Family History (Last Updated 08/26/17 @ 10:41 by Erin Carter) Mother Colon cancer Diabetes Hypertension CHF (congestive heart failure) Father COPD (chronic obstructive pulmonary disease) Heart disease Diabetes Brother Heart disease Stomach cancer Sister Ovarian cancer History Items: No pertinent history Paternal Family History: Family History (Last Updated 08/26/17 @ 10:41 by Erin Carter) Mother Colon cancer Diabetes Hypertension CHF (congestive heart failure) Father COPD (chronic obstructive pulmonary disease) Heart disease Diabetes Brother Heart disease Stomach cancer Sister Ovarian cancer History Items: No pertinent history Review of Systems Constitutional: Reports: Anorexia, Weakness, Fatigue. Denies: Chills, Fever Eyes: Denies: Blurred vision HEENT: Denies: Head Aches Cardiovascular: Reports: Chest Pain - With bradycardia arrhythmia, Edema - chronic lymphedema, Light Headedness, Palpitations, - - Near syncope, - - Slow heartbeat. Denies: Syncope Respiratory: Reports: Shortness of Breath - With slow heartbeat. Denies: Cough Gastrointestinal: Reports: Diarrhea - Loose stools, - - Anorexia. Denies: Abdominal Pain, Constipation, Nausea, Vomiting Genitourinary: Denies: Dysuria, Hematuria Musculoskeletal: Reports: Leg Pain, - - Decubitus ulcers, - - Muscle weakness uses a walker for ambulation assistance lately has not been able to walk due to debilitation Skin: Reports: Wounds - Posterior leg and calf, dorsum of left foot Neurological: Reports: Balance problems, Confusion - Improved since transfer to [facility], Tremor - Twitching of upper extremities, - - Generalized weakness. Denies: Seizures Psychiatric: Reports: Anxiety, Depression Hematologic/ Lymphatic: Reports: Anemia. Denies: Hx of blood clot Patient Problems: Active and Suspected Problems (Last Updated 12/07/17 @ 09:05 by Thomas Carrasco MD) Acute kidney injury (Acute) Hyperkalemia (Acute) Digoxin toxicity (Acute) Vancomycin toxicity (Acute) - Physical Exam General: Alert, Oriented x3, Cooperative, - - Super morbidly obese, debilitated Oral: Dry Mucosa Neck: Supple, No JVD Lungs: Diminished Abdomen: Bowel Sounds Present, Soft, Non Tender, Non-Distended, Obese - Super Extremities: Edema - To sacrum Skin: Ulcer/ Wound - Posterior thigh and legs the wound VAC applied Musculoskeletal: No Muscle Wasting, Arthritic Changes Lymphatic: No Cervical, Supraclavicular, or Inguinal Adenopathy Neurological: Cranial nerves II-XII grossly intact, - - Tremors upper extremity Psych/Mental Status: Normal Affect, Appropriate, Alert and oriented to time, place, person, mood and affect Vital Signs Temp Pulse Resp BP Pulse Ox 97.4 F L 56 L 19 H 123/58 H 99 12/24/17 14:28 12/24/17 17:00 12/24/17 17:00 12/24/17 17:00 12/24/17 17:00 Oxygen Flow Rate (L/min) 3 Oxygen Delivery Method Nasal Cannula Weight: 188.7 kg Body Mass Index (BMI) 67.1 Laboratory Tests Past 24 Hrs 12/24/17 12/24/17 12/24/17 16:00 16:10 16:10 WBC 6.0 RBC 2.97 L Hgb 8.6 L Hct 29.0 L MCV 97.6 MCH 29.0 MCHC 29.7 L RDW 19.5 H RDW Differential 65.5 H Plt Count 317 MPV 9.5 ESR 103 H PT 31.4 H INR 3.0 APTT 48.3 H Sodium Potassium Chloride Carbon Dioxide Anion Gap BUN Creatinine Estim Creat Clear Calc Est GFR (MDRD) Af Amer Est GFR (MDRD) Non-Af BUN/Creatinine Ratio Glucose Lactic Acid Calcium Magnesium Total Bilirubin AST ALT Alkaline Phosphatase Troponin I Total Protein Albumin Globulin Albumin/Globulin Ratio MRSA (PCR) Pending 12/24/17 12/24/17 16:10 16:10 WBC RBC Hgb Hct MCV MCH MCHC RDW RDW Differential Plt Count MPV ESR PT INR APTT Sodium 137 Potassium 5.5 H Chloride 101 Carbon Dioxide 27.0 Anion Gap 9 BUN 66 H Creatinine 7.48 H* Estim Creat Clear Calc 7.58 Est GFR (MDRD) Af Amer 7 L Est GFR (MDRD) Non-Af 6 L BUN/Creatinine Ratio 8.8 L Glucose 92 Lactic Acid 1.4 Calcium 8.1 L Magnesium 2.3 Total Bilirubin 0.50 AST 13 L ALT 8 L Alkaline Phosphatase 92 Troponin I < 0.02 Total Protein 8.1 Albumin 2.4 L Globulin 5.7 H Albumin/Globulin Ratio 0.4 L MRSA (PCR) Clinical Impression(s) from Imaging Studies Chest X-Ray 12/24/17 15:10 IMPRESSION: Right IJ central venous catheter as above with diffuse pulmonary edema Electronically Signed: Clinton Gallagher DO at 15:56 EDT Tel , Service support , Assessment/Plan Active and Suspected Problems (Last Updated 12/07/17 @ 09:05 by Thomas Carrasco MD) Acute kidney injury (Acute) Hyperkalemia (Acute) Digoxin toxicity (Acute) Vancomycin toxicity (Acute) 1. Acute kidney injury multifactorial from medications, bradycardia cardia, hypotension. Check spot urine sodium and creatinine. Recommend hemodialysis for oliguric renal failure as well as for hyperkalemia, digoxin toxicity consequently with severe bradycardia, and history of altered mental status which apparently is improved according to the family. Creatinine 7.48 on admission. Baseline creatinine 0.93 from 12/12. Hold lisinopril and diuretic therapy. Discussed with family at bedside regarding hemodialysis and the potential risks involved including infection, bleeding, hypotension with subsequent DE or stroke event. They agreed to proceed with hemodialysis with temporary dialysis catheter placed by intensive care team. 2. Severe bradycardia arrhythmia from digoxin toxicity. Digibind relatively contraindicated due to renal failure. Will remove digoxin with dialysis tonight 3. Metabolic encephalopathy improved likely due to renal failure and gabapentin. 4. Hyperkalemia correct with hemodialysis 5. Vancomycin toxicity will correct with dialysis 6. MRSA leg wound. Continue wound VAC 7. Diabetes mellitus type 2. Discontinue metformin 8. Hypertension history with low blood pressure currently. Support with IV fluids as needed 9. Super morbid obesity with debilitation 10 sleep apnea, pulmonary hypertension with noncompliance with CPAP.
[2017-12-24 17:46] LABS: M R Staph aureus DNA By PCR POSITIVE (Negative)
[2017-12-24 18:07] LABS: Bacteria 0 SEEN /hpf (None Seen); Mucous, Urine 0 SEEN /hpf (<or=2+)
[2017-12-24 18:20] LABS: Differential Comment SCANNED
[2017-12-24 18:21] LABS: Color, Urine Brown (Yellow); Glucose, Dipstick Normal (Normal); Ketone-Dipstick Negative (Negative); Leukocyte Esterase-Dipstick 500 /ul (Negative); Nitrite-Dipstick Positive (Negative); Occult Blood-Urine 250 /ul (Negative); Protein-Dipstick 100 mg/dl (Negative); Urine Bilirubin Dipstick Negative (Negative); Urine Clarity Turbid (Clear); Urine Urobilinogen Normal (Normal)
[2017-12-24 18:30] LABS: Red Blood Cells-Urine > 100 SEEN /hpf (0-5); Squamous Epithelial Cells - UA 0-5 SEEN /hpf (5-10); White Blood Cells 5-10 SEEN /hpf (0-5); Yeast-Urine 1+ /hpf (None Seen)
[2017-12-24 18:55] LABS: Urine Sodium 52 mmol/L (Not Establ.)
[2017-12-24 21:49] LABS: Digoxin Level 2.27 ng/mL (0.80-2.00); Vancomycin, Random Level 75.6 ug/mL (0.0-15.0)
--- NOTE | 2017-12-24 22:51 | DIALYSIS ---
HD x 3.5 hours complete. Tolerated tx well. Ran on 2k bath. No fluid removed. Used right IJ catheter. Catheter closed with heparin per fill volume. Report was given to DAVID Moralez.
[2017-12-24] MEDS: Glucerna Shake 120 ML LIQUID PO (23:02)
[2017-12-24] MEDS: oxyCODONE 5 MG Tablet PO (23:02)
[2017-12-24 23:51] LABS: Bedside Glucose 65 mg/dL (70-110)
[2017-12-24 23:51] LABS: Bedside Glucose 74 mg/dL (70-110)
[2017-12-25] VITALS (32 sets, daily range): BP systolic 82–124; BP diastolic 35–99; PULSE 46–68; RESP 11–22; TEMP 36.3–37.1; O2SAT 91–99
[2017-12-25] MEDS: oxyCODONE 5 MG Tablet PO ×3 (04:08→22:28)
[2017-12-25 04:34] LABS: Hematocrit 28.4 % (37-47); Hemoglobin 8.4 g/dl (12.0-15.0); Mean Corp Hgb Conc 29.6 g/gl (32-36); Mean Corpuscular Hgb 28.2 pg (27.0-32.0); Mean Corpuscular Volume 95.3 fL (81-99); Mean Platelet Vol. 8.6 fl (6.2-12.0); Platelet Count 294 K/mm3 (150-450); RBC Distribution Width CV 19.6 % (11.6-14.6); RBC Distribution Width SD 66.2 fl (35.1-43.9); Red Blood Count 2.98 M/mm3 (4.2-5.4); White Blood Count 6.8 K/mm3 (4.4-11.0)
[2017-12-25 04:38] LABS: Scan Indicated on CBC? Y/N YES- FLAGS NOTED
[2017-12-25 04:47] LABS: International Normalized Ratio 2.8; Prothrombin Time (Protime)PT. 29.5 SECONDS (11.7-14.9)
[2017-12-25 05:14] LABS: Albumin, Serum 2.3 g/dL (3.2-5.0); BUN 40 mg/dL (7-18); BUN/Creat Ratio 7.6 RATIO (10-20); Calcium,Total 7.2 mg/dL (8.5-10.1); Chloride 99 mmol/L (98-107); Creatinine, Serum 5.25 mg/dL (0.55-1.02); EST Glomerular Filtration Rate 9 mL/min (>60); Est Glom Filt Rate - Afr Amer 11 mL/min (>60); Glucose 78 mg/dL (74-106); Phosphorus 5.4 mg/dL (2.5-4.9); Potassium 4.5 mmol/L (3.5-5.1); Sodium Level 137 mmol/L (136-145)
[2017-12-25] MEDS: 0.9% Normal Saline 1,000 ML 100 ML IV ×2 (05:50→15:56)
[2017-12-25] MEDS: CHLORHEXIDINE GLUC 2% CLOTH 1 EACH TOWELETTE TOPICAL (05:53)
--- NOTE | 2017-12-25 06:46 | PCM.PN.INT ---
Subjective: Patient did okay overnight. Patient feels subjectively improved compared to previous. Nursing reports continued bradycardia overnight, but blood pressures are improved. No atropine has been required. Patient did tolerate hemodialysis for 3 hours with no fluid removal. No bleeding complications have been reported. Patient does report slight tenderness over the dialysis access. Nursing is reporting significant weeping of wounds. General: Alert, Oriented x3, Cooperative, No apparent distress, - - Orbitally obese. Speaking in full sentences. HEENT: Atraumatic, PERRLA, EOMI, Normocephalic, - - No scleral icterus or injection noted. Oral: Moist Mucosa, No Gingival or Mucosal Lesions/ Ulcerations Neck: Supple, No JVD, No Nodes, Trachea Midline Lungs: No rhonchi, No wheeze, No rales, Diminished, - - Symmetric expansion. No dullness to percussion. Cardiovascular: Normal S1, Normal S2, No murmurs, Bradycardic, No rub noted, No Gallop Abdomen: Bowel Sounds Present, Soft, Non Tender, Non-Distended, Obese Extremities: No clubbing, No cyanosis, Edema Skin: - - Large open areas with weeping. No purulent discharge appreciated. Musculoskeletal: No Tenderness to Palpation of Joints or Extremities Lymphatic: No Cervical, Supraclavicular, or Inguinal Adenopathy Neurological: Cranial nerves II-XII grossly intact, Neuro grossly intact Psych/Mental Status: Alert and oriented to time, place, person, mood and affect Vital Signs Temp Pulse Resp BP Pulse Ox 36.5 C L 49 L 16 106/55 L 96 12/25/17 06:13 12/25/17 06:13 12/25/17 06:13 12/25/17 06:13 12/25/17 06:13 Oxygen Flow Rate (L/min) 2 Oxygen Delivery Method Nasal Cannula Weight: 189.3 kg Body Mass Index (BMI) 67.1 Intake and Output for Last 24 Hours 12/23/17 12/24/17 12/25/17 23:59 23:59 23:59 Intake Total 350 / 350 1646 / 1646 Output Total 100 / 100 125 / 125 Balance 250 / 250 1521 / 1521 Labs (Last 48 Hours) 12/24/17 12/24/17 12/24/17 16:00 16:10 16:10 WBC 6.0 RBC 2.97 L Hgb 8.6 L Hct 29.0 L MCV 97.6 MCH 29.0 MCHC 29.7 L RDW 19.5 H RDW Differential 65.5 H Plt Count 317 MPV 9.5 Differential Comment SCANNED ESR 103 H PT 31.4 H INR 3.0 APTT 48.3 H Sodium Potassium Chloride Carbon Dioxide Anion Gap BUN Creatinine Estim Creat Clear Calc Est GFR (MDRD) Af Amer Est GFR (MDRD) Non-Af BUN/Creatinine Ratio Glucose Lactic Acid Calcium Phosphorus Magnesium Total Bilirubin AST ALT Alkaline Phosphatase Troponin I Total Protein Albumin Globulin Albumin/Globulin Ratio Urine Color Urine Clarity Urine pH Ur Specific Harrison Urine Protein Urine Glucose (UA) Urine Ketones Urine Occult Blood Urine Nitrite Urine Bilirubin Urine Urobilinogen Ur Leukocyte Esterase Urine RBC Urine WBC Ur Squamous Epith Cells Urine Bacteria Urine Mucus Urine Yeast Ur Random Sodium Urine Creatinine Random Vancomycin Digoxin Hep Bs Antigen MRSA (PCR) POSITIVE H POC Glucose 12/24/17 12/24/17 12/24/17 16:10 16:10 18:00 WBC RBC Hgb Hct MCV MCH MCHC RDW RDW Differential Plt Count MPV Differential Comment ESR PT INR APTT Sodium 137 Potassium 5.5 H Chloride 101 Carbon Dioxide 27.0 Anion Gap 9 BUN 66 H Creatinine 7.48 H* Estim Creat Clear Calc 7.58 Est GFR (MDRD) Af Amer 7 L Est GFR (MDRD) Non-Af 6 L BUN/Creatinine Ratio 8.8 L Glucose 92 Lactic Acid 1.4 Calcium 8.1 L Phosphorus Magnesium 2.3 Total Bilirubin 0.50 AST 13 L ALT 8 L Alkaline Phosphatase 92 Troponin I < 0.02 Total Protein 8.1 Albumin 2.4 L Globulin 5.7 H Albumin/Globulin Ratio 0.4 L Urine Color Brown Urine Clarity Turbid Urine pH 5.0 Ur Specific Harrison 1.020 Urine Protein 100 H Urine Glucose (UA) Normal Urine Ketones Negative Urine Occult Blood 250 H Urine Nitrite Positive H Urine Bilirubin Negative Urine Urobilinogen Normal Ur Leukocyte Esterase 500 H Urine RBC > 100 SEEN Urine WBC 5-10 SEEN Ur Squamous Epith Cells 0-5 SEEN Urine Bacteria 0 SEEN Urine Mucus 0 SEEN Urine Yeast 1+ Ur Random Sodium Urine Creatinine Random Vancomycin Digoxin Hep Bs Antigen MRSA (PCR) POC Glucose 12/24/17 12/24/17 12/24/17 18:30 18:30 19:58 WBC RBC Hgb Hct MCV MCH MCHC RDW RDW Differential Plt Count MPV Differential Comment ESR PT INR APTT Sodium Potassium Chloride Carbon Dioxide Anion Gap BUN Creatinine Estim Creat Clear Calc Est GFR (MDRD) Af Amer Est GFR (MDRD) Non-Af BUN/Creatinine Ratio Glucose Lactic Acid Calcium Phosphorus Magnesium Total Bilirubin AST ALT Alkaline Phosphatase Troponin I < 0.02 Total Protein Albumin Globulin Albumin/Globulin Ratio Urine Color Urine Clarity Urine pH Ur Specific Harrison Urine Protein Urine Glucose (UA) Urine Ketones Urine Occult Blood Urine Nitrite Urine Bilirubin Urine Urobilinogen Ur Leukocyte Esterase Urine RBC Urine WBC Ur Squamous Epith Cells Urine Bacteria Urine Mucus Urine Yeast Ur Random Sodium 52 Urine Creatinine 121.00 Random Vancomycin Digoxin Hep Bs Antigen MRSA (PCR) POC Glucose 12/24/17 12/24/17 12/24/17 19:58 20:12 23:01 WBC RBC Hgb Hct MCV MCH MCHC RDW RDW Differential Plt Count MPV Differential Comment ESR PT INR APTT Sodium Potassium Chloride Carbon Dioxide Anion Gap BUN Creatinine Estim Creat Clear Calc Est GFR (MDRD) Af Amer Est GFR (MDRD) Non-Af BUN/Creatinine Ratio Glucose Lactic Acid Calcium Phosphorus Magnesium Total Bilirubin AST ALT Alkaline Phosphatase Troponin I Total Protein Albumin Globulin Albumin/Globulin Ratio Urine Color Urine Clarity Urine pH Ur Specific Harrison Urine Protein Urine Glucose (UA) Urine Ketones Urine Occult Blood Urine Nitrite Urine Bilirubin Urine Urobilinogen Ur Leukocyte Esterase Urine RBC Urine WBC Ur Squamous Epith Cells Urine Bacteria Urine Mucus Urine Yeast Ur Random Sodium Urine Creatinine Random Vancomycin 75.6 H Digoxin 2.27 H* Hep Bs Antigen Pending MRSA (PCR) POC Glucose 65 L 12/24/17 12/24/17 12/25/17 23:30 23:32 04:15 WBC 6.8 RBC 2.98 L Hgb 8.4 L Hct 28.4 L MCV 95.3 MCH 28.2 MCHC 29.6 L RDW 19.6 H RDW Differential 66.2 H Plt Count 294 MPV 8.6 Differential Comment ESR PT INR APTT Sodium Potassium Chloride Carbon Dioxide Anion Gap BUN Creatinine Estim Creat Clear Calc Est GFR (MDRD) Af Amer Est GFR (MDRD) Non-Af BUN/Creatinine Ratio Glucose Lactic Acid Calcium Phosphorus Magnesium Total Bilirubin AST ALT Alkaline Phosphatase Troponin I < 0.02 Total Protein Albumin Globulin Albumin/Globulin Ratio Urine Color Urine Clarity Urine pH Ur Specific Harrison Urine Protein Urine Glucose (UA) Urine Ketones Urine Occult Blood Urine Nitrite Urine Bilirubin Urine Urobilinogen Ur Leukocyte Esterase Urine RBC Urine WBC Ur Squamous Epith Cells Urine Bacteria Urine Mucus Urine Yeast Ur Random Sodium Urine Creatinine Random Vancomycin Digoxin Hep Bs Antigen MRSA (PCR) POC Glucose 74 12/25/17 12/25/17 04:15 04:15 WBC RBC Hgb Hct MCV MCH MCHC RDW RDW Differential Plt Count MPV Differential Comment ESR PT 29.5 H INR 2.8 APTT Sodium 137 Potassium 4.5 Chloride 99 Carbon Dioxide 28.0 Anion Gap BUN 40 H Creatinine 5.25 H Estim Creat Clear Calc 10.80 Est GFR (MDRD) Af Amer 11 L Est GFR (MDRD) Non-Af 9 L BUN/Creatinine Ratio 7.6 L Glucose 78 Lactic Acid Calcium 7.2 L Phosphorus 5.4 H Magnesium Total Bilirubin AST ALT Alkaline Phosphatase Troponin I < 0.02 Total Protein Albumin 2.3 L Globulin Albumin/Globulin Ratio Urine Color Urine Clarity Urine pH Ur Specific Harrison Urine Protein Urine Glucose (UA) Urine Ketones Urine Occult Blood Urine Nitrite Urine Bilirubin Urine Urobilinogen Ur Leukocyte Esterase Urine RBC Urine WBC Ur Squamous Epith Cells Urine Bacteria Urine Mucus Urine Yeast Ur Random Sodium Urine Creatinine Random Vancomycin Digoxin Hep Bs Antigen MRSA (PCR) POC Glucose Clinical Impression(s) from Imaging Studies Chest X-Ray 12/24/17 15:10 IMPRESSION: Right IJ central venous catheter as above with diffuse pulmonary edema Electronically Signed: Clinton Gallagher DO at 15:56 EDT Tel , Service support , Medical Necessity - Tobacco Use Smoking Status: Former smoker Assessment/Plan Active and Suspected Problems (Last Updated 12/07/17 @ 09:05 by Thomas Carrasco MD) Acute kidney injury (Acute) Hyperkalemia (Acute) Digoxin toxicity (Acute) Vancomycin toxicity (Acute) RECOMMENDATIONS: 1. Despite hemodialysis today, defer to nephrology 2. BiPAP nightly as needed 3. Hold metformin, Coumadin, vancomycin, Flagyl, digoxin and nadolol 4. Sliding scale insulin 5. Wean oxygen as tolerated 6. Possible transfer from the intensive care unit if tolerates hemodialysis IMPRESSIONS: 1. Sinus bradycardia Factorial etiology of sinus bradycardia including elevated potassium and digoxin. No atropine has been noted overnight. Will dose atropine as necessary. Anticipate continued hemodialysis secondary to elevated vancomycin level 2. Acute renal failure secondary to drug toxicity She does have a history of congestive heart failure and is on Lasix therapy at baseline. Patient did continue to make urine, but calcium is elevated. Patient is on Coumadin therapy and does have an elevated INR. However, line placement appears to have no complications at this time. Will not actively reverse INR. Nephrology has been consulted. 3. Acute on chronic diastolic congestive heart failure Patient has been treated with Lasix in the past. Patient does have increased alveolar infiltrates noted on chest x-ray. Patient currently on 3 L nasal cannula. May attempt volume removal with hemodialysis. Hold nadolol for now given patient's bradycardia. Likely resume baseline medications in the next 24-48 hours. 4. Personal history of chronic atrial fibrillation/hypertension/heart failure/pulmonary hypertension Patient appears to be in atrial fibrillation at this time. Patient is anticoagulated. Bradycardia multifactorial. Hold on further anticoagulation at this time. Patient would benefit from nocturnal BiPAP therapy. 5. Diabetes type II/hypoglycemia Unclear etiology of hypoglycemia noted overnight. Responded to p.o. intake. Patient was on metformin previously, but no secretagogues were noted on her Mawr. Continue sliding scale insulin coverage and Accu-Cheks. 6. Super morbid obesity/depression/neuropathy Complicates care, management, recovery and prognosis. Resume home medications as indicated. Physical therapy to continue work with patient. Patient has therapeutic INR. No SCD secondary to leg wounds 7. Leg wounds with history of MRSA Patient's vancomycin level is still in toxic range. Patient likely to have hemodialysis today. Wound nurse to see patient and provide recommendations. Patient may need wound VAC placement. Code Visit Inpatient E&M: [id number] [facility] L3
--- NOTE | 2017-12-25 07:14 | PCM.PN.HOSP ---
Patient Problems: Active and Suspected Problems (Last Updated 12/07/17 @ 09:05 by Thomas Carrasco MD) Acute kidney injury (Acute) Hyperkalemia (Acute) Digoxin toxicity (Acute) Vancomycin toxicity (Acute) Subjective: Patient was seen and examined. Denies any new complaints. Feels sleepy, denies chest pain or shortness of breath. Telemetry reviewed, episodes of bradycardia to the low 30s. Started on dialysis yesterday, discussed with auctioneer tobacco, will receive dialysis today also. Vitals/I&O's: Vital Signs Temp Pulse Resp BP Pulse Ox 97.7 F L 46 L 12 102/60 96 12/25/17 06:13 12/25/17 07:13 12/25/17 07:13 12/25/17 07:13 12/25/17 07:13 Oxygen Flow Rate (L/min) 3 Oxygen Delivery Method Nasal Cannula Weight: 189.3 kg Body Mass Index (BMI) 67.1 Intake and Output for Last 24 Hours 12/23/17 12/24/17 12/25/17 23:59 23:59 23:59 Intake Total 350 / 350 1646 / 1646 Output Total 100 / 100 125 / 125 Balance 250 / 250 1521 / 1521 General: Alert, Oriented x3, Cooperative, No apparent distress, - - Appears sleepy, on 3 L of oxygen, super morbidly obese HEENT: Atraumatic, PERRLA, EOMI, Normocephalic Oral: Dry Mucosa Neck: Supple Lungs: Clear to auscultation, Normal air movement Cardiovascular: Regular rate, Regular Rhythm, Normal S1, Normal S2, No murmurs Abdomen: Bowel Sounds Present, Soft, Non Tender, Non-Distended, No Hepato-splenomegaly Extremities: No edema Skin: No rashes, No breakdown Musculoskeletal: No Tenderness to Palpation of Joints or Extremities Lymphatic: No Cervical, Supraclavicular, or Inguinal Adenopathy Neurological: Cranial nerves II-XII grossly intact Psych/Mental Status: Normal Affect, Appropriate Laboratory Results 12/24/17 16:00: MRSA (PCR) POSITIVE H 12/24/17 16:10: PT 31.4 H, INR 3.0, APTT 48.3 H 12/24/17 16:10: WBC 6.0, RBC 2.97 L, Hgb 8.6 L, Hct 29.0 L, MCV 97.6, MCH 29.0, MCHC 29.7 L, RDW 19.5 H, RDW Differential 65.5 H, Plt Count 317, MPV 9.5, Differential Comment SCANNED, ESR 103 H 12/24/17 16:10: Sodium 137, Potassium 5.5 H, Chloride 101, Carbon Dioxide 27.0, Anion Gap 9, BUN 66 H, Creatinine 7.48 H*, Estim Creat Clear Calc 7.58, Est GFR (MDRD) Af Amer 7 L, Est GFR (MDRD) Non-Af 6 L, BUN/Creatinine Ratio 8.8 L, Glucose 92, Calcium 8.1 L, Magnesium 2.3, Total Bilirubin 0.50, AST 13 L, ALT 8 L, Alkaline Phosphatase 92, Troponin I < 0.02, Total Protein 8.1, Albumin 2.4 L, Globulin 5.7 H, Albumin/Globulin Ratio 0.4 L 12/24/17 16:10: Lactic Acid 1.4 12/24/17 18:00: Urine Color Brown, Urine Clarity Turbid, Urine pH 5.0, Ur Specific [facility] 1.020, Urine Protein 100 H, Urine Glucose (UA) Normal, Urine Ketones Negative, Urine Occult Blood 250 H, Urine Nitrite Positive H, Urine Bilirubin Negative, Urine Urobilinogen Normal, Ur Leukocyte Esterase 500 H, Urine RBC > 100 SEEN, Urine WBC 5-10 SEEN, Ur Squamous Epith Cells 0-5 SEEN, Urine Bacteria 0 SEEN, Urine Mucus 0 SEEN, Urine Yeast 1+ 12/24/17 18:30: Urine Creatinine 121.00 12/24/17 18:30: Ur Random Sodium 52 12/24/17 19:58: Troponin I < 0.02 12/24/17 19:58: Random Vancomycin 75.6 H, Digoxin 2.27 H* 12/24/17 20:12: Hep Bs Antigen Pending 12/24/17 23:01: POC Glucose 65 L 12/24/17 23:30: Troponin I < 0.02 12/24/17 23:32: POC Glucose 74 12/25/17 04:15: WBC 6.8, RBC 2.98 L, Hgb 8.4 L, Hct 28.4 L, MCV 95.3, MCH 28.2, MCHC 29.6 L, RDW 19.6 H, RDW Differential 66.2 H, Plt Count 294, MPV 8.6, Differential Comment 12/25/17 04:15: PT 29.5 H, INR 2.8 12/25/17 04:15: Sodium 137, Potassium 4.5, Chloride 99, Carbon Dioxide 28.0, BUN 40 H, Creatinine 5.25 H, Estim Creat Clear Calc 10.80, Est GFR (MDRD) Af Amer 11 L, Est GFR (MDRD) Non-Af 9 L, BUN/Creatinine Ratio 7.6 L, Glucose 78, Calcium 7.2 L, Phosphorus 5.4 H, Troponin I < 0.02, Albumin 2.3 L Current Medications Acetaminophen (Tylenol) 650 mg PO Q6H PRN PRN PRN Reason: Mild Pain (1-3)/Temp > 100.7 F Chlorhexidine Gluconate () 1 each TOPICAL DAILY [facility] Last Admin: 12/25/17 05:53 Dose: 1 each Heparin Sodium (Beef Lung) (Heparin 500 Unit/5 Ml (100/Ml)) 500 unit IV UD PRN PRN Reason: HEPARIN FLUSH Heparin Sodium (Porcine) () 0 units IV X1 PRN Sodium Chloride () 1,000 mls @ 100 mls/hr IV .Q10H [facility] Last Admin: 12/25/17 05:50 Dose: 100 mls/hr Sodium Chloride () 250 mls @ 15 mls/hr IV .[id number] PRN PRN Reason: SALINE FLUSH Magnesium Hydroxide (Milk Of Magnesia) 30 ml PO DAILY PRN PRN PRN Reason: Constipation Nutritional Formula (Lactose Free) (Glucerna Shake) 120 ml PO 4X/DAY [facility] Last Admin: 12/24/17 23:02 Dose: 120 ml Oxycodone HCl (Oxyir) 5 - 10 mg PO Q4H PRN PRN PRN Reason: MOD-SEVERE PAIN (4-10/10) Last Admin: 12/25/17 04:08 Dose: 10 mg Psyllium Hydrophilic Mucilloid (Metamucil) 1 packet PO DAILY PRN PRN PRN Reason: CONSTIPATION Senna/Docusate Sodium (Senokot-S, Airam-Colace) 2 tablet PO BID PRN PRN PRN Reason: constipation Sodium Chloride () 10 - 20 ml IV UD PRN PRN Reason: PICC FLUSH Medical Necessity - Tobacco Use Smoking Status: Former smoker Assessment/Plan Active and Suspected Problems (Last Updated 12/07/17 @ 09:05 by Thomas Carrasco MD) Acute kidney injury (Acute) Hyperkalemia (Acute) Digoxin toxicity (Acute) Vancomycin toxicity (Acute) 57 year old F with multiple medical comorbidities including diabetes mellitus type 2, pulmonary hypertension, chronic A. fib and MRSA cellulitis with nonhealing ulcer on bilateral lower extremities status post extensive debridement and wound VAC placement recently discharged to SNF on IV antibiotics including vancomycin. Patient is reported to having periods of confusion, weakness, hallucinations and muscle twitching for last 5-7 days. During labs done in [facility], patient was found to have DEQUAN, elevated vancomycin and digoxin level. She was also bradycardic, transferred to [facility] ER and given half ampule of atropine. Initial labs done in ER was markedly abnormal for digoxin 2.94, BUN 67, creatinine 7.2 and K 5.5. INR 3.6. Vanco level was 141 and INR 6.9 on December 3. 1. Severe bradycardia with hypotension to medication side effects, resolving, on IV fluids, and also had dialysis, will continue to monitor in ICU 2. DEQUAN/hyperkalemia/oliguria, status post emergent dialysis yesterday via right IJ tunneled catheter, will be dialyzed again today, will continue to follow up with BMP in am. 3. Vancomycin and digoxin toxicity, s/p dialysis, repeat levels pending. 4. Diabetes mellitus type 2, blood sugars are slightly low, not on any insulins, will continue to monitor with Accu-Cheks 5. Hypercoagulable state/chronic coumadin therapy, INR is 2.8 today, was reported very high. 6. 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 Chronic A. fib, rate controlled, INR is therapeutic 8. Acute on chronic anemia secondary to multiple comorbidities, stable. 9. Pulmonary hypertension/chronic diastolic heart failure/super morbid obesity,all complicating her care. 10. DVT prophylaxis -INR is therapeutic 11. GI prophylaxis with famotidine Code Visit Inpatient E&M: 42011 [facility]
[2017-12-25 10:00] LABS: Bedside Glucose 80 mg/dL (70-110)
--- NOTE | 2017-12-25 11:27 | CASEMGMT ---
MEÑO met with patient's son, Blake as patient was sleeping. Blake said he is the POA, which we do have papers on file. Patient is currently in rehab at [facility]. Blake said they do not want patient to return to [facility] and he said patient will be okay with moving to another facility. She likes [facility] and has been there in the past. He also asked about [facility] TCU. MEÑO told him that we could check on those options on Wednesday. He also mentioned to SW that in the past when his mom has tried taking care of herself at home it has not worked out. He said her mom, who is 88, and her 28 yo daughter are her caregivers. He said they usually will not accept help in the home even though they need it. The home is a mess. He also feels patient is not able to properly bathe herself. He said for the last couple of years in November or December his mom has ended up with MRSA or septic and he feels it is because she cannot care for herself properly at home without professional help. MEÑO told him SW will follow up on Wednesday. Plan: likely switch to a different facility. However, she will need insurance authorization before she can be d/c to a SNF. SW will check on TCU and [facility] as options. Chantell MONTGOMERY
[2017-12-25 13:54] LABS: Digoxin Level 2.12 ng/mL (0.80-2.00); Vancomycin, Random Level 64.4 ug/mL (0.0-15.0)
[2017-12-25] MEDS: Heparin 10,000 UNITS/10 ML Vial IV (15:20)
--- NOTE | 2017-12-25 15:37 | DIALYSIS ---
Hemodialysis completed as ordered. No fluid removed today. Tolerated well. Stable t/o. CHG dressing D/I. CVC closed with Heparin to each lumen fill volume. Report to Elijah HERNANDEZ at bedside given
[2017-12-25 17:50] LABS: Bedside Glucose 71 mg/dL (70-110)
[2017-12-25] MEDS: Glucerna Shake 120 ML LIQUID PO ×2 (18:47→22:29)
[2017-12-25 23:05] LABS: Bedside Glucose 101 mg/dL (70-110)
[2017-12-26] VITALS (17 sets, daily range): BP systolic 99–117; BP diastolic 49–71; PULSE 46–102; RESP 13–20; TEMP 36.6–37.3; O2SAT 90–100
[2017-12-26] MEDS: CHLORHEXIDINE GLUC 2% CLOTH 1 EACH TOWELETTE TOPICAL (02:01)
[2017-12-26] MEDS: 0.9% Normal Saline 1,000 ML 100 ML IV ×3 (02:01→22:57)
[2017-12-26] MEDS: oxyCODONE 5 MG Tablet PO ×4 (02:38→23:29)
[2017-12-26 05:25] LABS: International Normalized Ratio 2.1; Prothrombin Time (Protime)PT. 23.4 SECONDS (11.7-14.9)
[2017-12-26 05:35] LABS: Albumin, Serum 2.2 g/dL (3.2-5.0); BUN 25 mg/dL (7-18); BUN/Creat Ratio 6.6 RATIO (10-20); Calcium,Total 7.5 mg/dL (8.5-10.1); Chloride 98 mmol/L (98-107); Creatinine, Serum 3.76 mg/dL (0.55-1.02); EST Glomerular Filtration Rate 13 mL/min (>60); Est Glom Filt Rate - Afr Amer 16 mL/min (>60); Estimated Creatinine Clearance 15.08 ml/min; Glucose 95 mg/dL (74-106); Phosphorus 4.9 mg/dL (2.5-4.9); Sodium Level 136 mmol/L (136-145)
[2017-12-26 06:22] LABS: Digoxin Level 1.91 ng/mL (0.80-2.00)
[2017-12-26] MEDS: 0.9% NaCl PICC Flush IV (06:38)
--- NOTE | 2017-12-26 07:12 | PCM.PN.HOSP ---
Patient Problems: Active and Suspected Problems (Last Updated 12/07/17 @ 09:05 by Thomas Carrasco MD) Acute kidney injury (Acute) Hyperkalemia (Acute) Digoxin toxicity (Acute) Vancomycin toxicity (Acute) Subjective: Patient was seen and examined. No new complaints. She says I feel likel I have turned around the corner and feeling much better. She has produced about 150 mils of urine the last 6 hours. She denies any chest pain dizziness or palpitation. Her wounds were changed by nursing yesterday, reportedly no signs of necrosis. Vitals were reviewed, remains slightly bradycardic, no atropine was used overnight. She had dialysis yesterday which was second day in a row. Objective: Physical exam: General: Alert, Oriented x3, Cooperative, Appears sleepy, on 3 L of oxygen, super morbidly obese HEENT: Atraumatic, PERRLA, EOMI, Normocephalic Oral: Dry Mucosa Neck: Supple Lungs: Clear to auscultation, Normal air movement Cardiovascular: Regular rate, Regular Rhythm, Normal S1, Normal S2, No murmurs Abdomen: Bowel Sounds Present, Soft, Non Tender, Non-Distended, No Hepato-splenomegaly Extremities: bilateral leg edema with gauze dressings. Skin: No rashes, No breakdown Musculoskeletal: No Tenderness to Palpation of Joints or Extremities Lymphatic: No Cervical, Supraclavicular, or Inguinal Adenopathy Neurological: Cranial nerves II-XII grossly intact Psych/Mental Status: Normal Affect, Appropriate Vitals/I&O's: Vital Signs Temp Pulse Resp BP Pulse Ox 97.9 F 46 L 16 103/54 L 99 12/26/17 04:00 12/26/17 06:00 12/26/17 06:00 12/26/17 06:00 12/26/17 06:00 Oxygen Flow Rate (L/min) 3 Oxygen Delivery Method Nasal Cannula Weight: 191 kg Body Mass Index (BMI) 67.1 Intake and Output for Last 24 Hours 12/24/17 12/25/17 12/26/17 23:59 23:59 23:59 Intake Total 350 / 350 1646 / 1646 2571 / 2571 Output Total 100 / 100 300 / 300 200 / 200 Balance 250 / 250 1346 / 1346 2371 / 2371 Laboratory Results 12/25/17 09:58: POC Glucose 80 05/05/18 12:10: Random Vancomycin 64.4 H, Digoxin 2.12 H* 12/25/17 17:36: POC Glucose 71 12/25/17 22:57: POC Glucose 101 12/26/17 04:50: Sodium 136, Potassium 4.0, Chloride 98, Carbon Dioxide 29.0, BUN 25 H, Creatinine 3.76 H, Estim Creat Clear Calc 15.08, Est GFR (MDRD) Af Amer 16 L, Est GFR (MDRD) Non-Af 13 L, BUN/Creatinine Ratio 6.6 L, Glucose 95, Calcium 7.5 L, Phosphorus 4.9, Albumin 2.2 L 12/26/17 04:50: PT Pending, INR Pending 12/26/17 04:50: Random Vancomycin TNP, Digoxin 1.91 12/26/17 06:40: Random Vancomycin Pending Current Medications Acetaminophen (Tylenol) 650 mg PO Q6H PRN PRN PRN Reason: Mild Pain (1-3)/Temp > 100.7 F Chlorhexidine Gluconate () 1 each TOPICAL DAILY [facility] Last Admin: 12/26/17 02:01 Dose: 1 each Famotidine (Pepcid) 20 mg PO DAILY [facility] Heparin Sodium (Beef Lung) (Heparin 500 Unit/5 Ml (100/Ml)) 500 unit IV UD PRN PRN Reason: HEPARIN FLUSH Heparin Sodium (Porcine) () 0 units IV X1 PRN Last Admin: 12/25/17 15:20 Dose: 2,600 units Sodium Chloride () 1,000 mls @ 100 mls/hr IV .Q10H [facility] Last Admin: 12/26/17 02:01 Dose: 100 mls/hr Sodium Chloride () 250 mls @ 15 mls/hr IV .[id number] PRN PRN Reason: SALINE FLUSH Magnesium Hydroxide (Milk Of Magnesia) 30 ml PO DAILY PRN PRN PRN Reason: Constipation Nutritional Formula (Lactose Free) (Glucerna Shake) 120 ml PO 4X/DAY [facility] Last Admin: 12/25/17 22:29 Dose: 120 ml Oxycodone HCl (Oxyir) 5 - 10 mg PO Q4H PRN PRN PRN Reason: MOD-SEVERE PAIN (4-10/10) Last Admin: 12/26/17 06:38 Dose: 10 mg Psyllium Hydrophilic Mucilloid (Metamucil) 1 packet PO DAILY PRN PRN PRN Reason: CONSTIPATION Senna/Docusate Sodium (Senokot-S, Airam-Colace) 2 tablet PO BID PRN PRN PRN Reason: constipation Sodium Chloride () 10 - 20 ml IV UD PRN PRN Reason: PICC FLUSH Last Admin: 12/26/17 06:38 Dose: 10 ml Medical Necessity - Tobacco Use Smoking Status: Former smoker Assessment/Plan Active and Suspected Problems (Last Updated 12/07/17 @ 09:05 by Thomas Carrasco MD) Acute kidney injury (Acute) Hyperkalemia (Acute) Digoxin toxicity (Acute) Vancomycin toxicity (Acute) 57 year old F with multiple medical comorbidities including diabetes mellitus type 2, pulmonary hypertension, chronic A. fib and MRSA cellulitis with nonhealing ulcer on bilateral lower extremities status post extensive debridement and wound VAC placement recently discharged to SNF on IV antibiotics including vancomycin. Patient is reported to having periods of confusion, weakness, hallucinations and muscle twitching for last 5-7 days. During labs done in [facility], patient was found to have DEQUAN, elevated vancomycin and digoxin level. She was also bradycardic, transferred to [facility] ER and given half ampule of atropine. Initial labs done in ER was markedly abnormal for digoxin 2.94, BUN 67, creatinine 7.2 and K 5.5. INR 3.6. Vanco level was 141 and INR 6.9 on December 3. 1. Severe bradycardia/hypotension to medication side effects,improved with dialysis, still bradycardic but not hypotensive, will continue to monitor. 2. DEQUAN/hyperkalemia/oliguria, status post right IJ tunneled catheter, dialysed 2 days in a row, Cr improved, remains not making much urine, nephrology following, will continue on IV fluids, no dialysis today per nephrology, repeat BMP in am. 3. Vancomycin and digoxin toxicity, s/p dialysis, levels are decreasing with dialysis although vancomycin level is still high. 4. Diabetes mellitus type 2, blood sugars are slightly low, not on any insulins/metformin, will continue to monitor with Accu-Cheks 5. Hypercoagulable state/chronic coumadin therapy, INR is 2.1, will continue to hold coumadin for now 6. 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 Martinez. Started on oxycodone, will decrease dose to 5mg daily, and increase frequency to q6hrly as patient appears slightly lethargic. 7. Chronic A. fib, rate controlled, INR is therapeutic, patient is bradycardic, not on any meds, off coumadin also for now, will continue to trend coumadin. 8. Acute on chronic anemia secondary to multiple comorbidities, stable. 9. Pulmonary hypertension/chronic diastolic heart failure/super morbid obesity,all complicating her care. 10. DVT prophylaxis -INR is therapeutic 11. GI prophylaxis with famotidine Code Visit Inpatient E&M: [id number] [facility] L3
--- NOTE | 2017-12-26 07:18 | PN_ITS ---
Patient Problems: Active and Suspected Problems (Last Updated 12/07/17 @ 09:05 by Thomas Carrasco MD) Acute kidney injury (Acute) Hyperkalemia (Acute) Digoxin toxicity (Acute) Vancomycin toxicity (Acute) Subjective: Patient was seen and examined. No new complaints. She says I feel likel I have turned around the corner and feeling much better. She has produced about 150 mils of urine the last 6 hours. She denies any chest pain dizziness or palpitation. Her wounds were changed by nursing yesterday, reportedly no signs of necrosis. Vitals were reviewed, remains slightly bradycardic, no atropine was used overnight. She had dialysis yesterday which was second day in a row. Objective: Physical exam: General: Alert, Oriented x3, Cooperative, Appears sleepy, on 3 L of oxygen, super morbidly obese HEENT: Atraumatic, PERRLA, EOMI, Normocephalic Oral: Dry Mucosa Neck: Supple Lungs: Clear to auscultation, Normal air movement Cardiovascular: Regular rate, Regular Rhythm, Normal S1, Normal S2, No murmurs Abdomen: Bowel Sounds Present, Soft, Non Tender, Non-Distended, No Hepato- splenomegaly Extremities: bilateral leg edema with gauze dressings. Skin: No rashes, No breakdown Musculoskeletal: No Tenderness to Palpation of Joints or Extremities Lymphatic: No Cervical, Supraclavicular, or Inguinal Adenopathy Neurological: Cranial nerves II-XII grossly intact Psych/Mental Status: Normal Affect, Appropriate Vitals/I&O's: Vital Signs Temp Pulse Resp BP Pulse Ox 97.9 F 46 L 16 103/54 L 99 12/26/17 04:00 12/26/17 06:00 12/26/17 06:00 12/26/17 06:00 12/26/17 06:00 Oxygen Flow Rate (L/min) 3 Oxygen Delivery Method Nasal Cannula Weight: 191 kg Body Mass Index (BMI) 67.1 Intake and Output for Last 24 Hours 12/24/17 12/25/17 12/26/17 23:59 23:59 23:59 Intake Total 350 / 350 1646 / 1646 2571 / 2571 Output Total 100 / 100 300 / 300 200 / 200 Balance 250 / 250 1346 / 1346 2371 / 2371 Laboratory Results 12/25/17 09:58: POC Glucose 80 05/05/18 12:10: Random Vancomycin 64.4 H, Digoxin 2.12 H* 12/25/17 17:36: POC Glucose 71 12/25/17 22:57: POC Glucose 101 12/26/17 04:50: Sodium 136, Potassium 4.0, Chloride 98, Carbon Dioxide 29.0, BUN 25 H, Creatinine 3.76 H, Estim Creat Clear Calc 15.08, Est GFR (MDRD) Af Amer 16 L, Est GFR (MDRD) Non-Af 13 L, BUN/Creatinine Ratio 6.6 L, Glucose 95, Calcium 7.5 L, Phosphorus 4.9, Albumin 2.2 L 12/26/17 04:50: PT Pending, INR Pending 12/26/17 04:50: Random Vancomycin TNP, Digoxin 1.91 12/26/17 06:40: Random Vancomycin Pending Current Medications Acetaminophen (Tylenol) 650 mg PO Q6H PRN PRN PRN Reason: Mild Pain (1-3)/Temp > 100.7 F Chlorhexidine Gluconate () 1 each TOPICAL DAILY [facility] Last Admin: 12/26/17 02:01 Dose: 1 each Famotidine (Pepcid) 20 mg PO DAILY [facility] Heparin Sodium (Beef Lung) (Heparin 500 Unit/5 Ml (100/Ml)) 500 unit IV UD PRN PRN Reason: HEPARIN FLUSH Heparin Sodium (Porcine) () 0 units IV X1 PRN Last Admin: 12/25/17 15:20 Dose: 2,600 units Sodium Chloride () 1,000 mls @ 100 mls/hr IV .Q10H [facility] Last Admin: 12/26/17 02:01 Dose: 100 mls/hr Sodium Chloride () 250 mls @ 15 mls/hr IV .[id number] PRN PRN Reason: SALINE FLUSH Magnesium Hydroxide (Milk Of Magnesia) 30 ml PO DAILY PRN PRN PRN Reason: Constipation Nutritional Formula (Lactose Free) (Glucerna Shake) 120 ml PO 4X/DAY [facility] Last Admin: 12/25/17 22:29 Dose: 120 ml Oxycodone HCl (Oxyir) 5 - 10 mg PO Q4H PRN PRN PRN Reason: MOD-SEVERE PAIN (4-10/10) Last Admin: 12/26/17 06:38 Dose: 10 mg Psyllium Hydrophilic Mucilloid (Metamucil) 1 packet PO DAILY PRN PRN PRN Reason: CONSTIPATION Senna/Docusate Sodium (Senokot-S, Airam-Colace) 2 tablet PO BID PRN PRN PRN Reason: constipation Sodium Chloride () 10 - 20 ml IV UD PRN PRN Reason: PICC FLUSH Last Admin: 12/26/17 06:38 Dose: 10 ml Medical Necessity - Tobacco Use Smoking Status: Former smoker Assessment/Plan Active and Suspected Problems (Last Updated 12/07/17 @ 09:05 by Thomas Carrasco MD) Acute kidney injury (Acute) Hyperkalemia (Acute) Digoxin toxicity (Acute) Vancomycin toxicity (Acute) 57 year old F with multiple medical comorbidities including diabetes mellitus type 2, pulmonary hypertension, chronic A. fib and MRSA cellulitis with nonhealing ulcer on bilateral lower extremities status post extensive debridement and wound VAC placement recently discharged to SNF on IV antibiotics including vancomycin. Patient is reported to having periods of confusion, weakness, hallucinations and muscle twitching for last 5-7 days. During labs done in [facility], patient was found to have DEQUAN, elevated vancomycin and digoxin level. She was also bradycardic, transferred to [facility] ER and given half ampule of atropine. Initial labs done in ER was markedly abnormal for digoxin 2.94, BUN 67, creatinine 7.2 and K 5.5. INR 3.6. Vanco level was 141 and INR 6.9 on December 3. 1. Severe bradycardia/hypotension to medication side effects,improved with dialysis, still bradycardic but not hypotensive, will continue to monitor. 2. DEQUAN/hyperkalemia/oliguria, status post right IJ tunneled catheter, dialysed 2 days in a row, Cr improved, remains not making much urine, nephrology following, will continue on IV fluids, no dialysis today per nephrology, repeat BMP in am. 3. Vancomycin and digoxin toxicity, s/p dialysis, levels are decreasing with dialysis although vancomycin level is still high. 4. Diabetes mellitus type 2, blood sugars are slightly low, not on any insulins/ metformin, will continue to monitor with Accu-Cheks 5. Hypercoagulable state/chronic coumadin therapy, INR is 2.1, will continue to hold coumadin for now 6. 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 Martinez. Started on oxycodone, will decrease dose to 5mg daily, and increase frequency to q6hrly as patient appears slightly lethargic. 7. Chronic A. fib, rate controlled, INR is therapeutic, patient is bradycardic, not on any meds, off coumadin also for now, will continue to trend coumadin. 8. Acute on chronic anemia secondary to multiple comorbidities, stable. 9. Pulmonary hypertension/chronic diastolic heart failure/super morbid obesity, all complicating her care. 10. DVT prophylaxis -INR is therapeutic 11. GI prophylaxis with famotidine Code Visit Inpatient E&M: 50603 [facility] L3
--- NOTE | 2017-12-26 07:27 | PN_ITS ---
Subjective: Patient did well overnight. No acute issues were reported. Patient only tolerated BiPAP for approximately 2 hours, but has been on nasal cannula for the remaining time. Patient remains bradycardic, but blood pressure continues to improve. Patient did have hemodialysis yesterday and tolerated this well. Urine output continues to be marginal. General: Alert, Oriented x3, Cooperative, No apparent distress, - - Morbidly obese. Speaking in full sentences. HEENT: Atraumatic, PERRLA, EOMI, Normocephalic, - - No scleral icterus or injection noted. Oral: Moist Mucosa, No Gingival or Mucosal Lesions/ Ulcerations Neck: Supple, No JVD, No Nodes, Trachea Midline, - - Right IJ dialysis catheter is clean, dry and intact. Lungs: No rhonchi, No wheeze, No rales, Diminished, - - Symmetric expansion. No dullness to percussion. Cardiovascular: Normal S1, Normal S2, No murmurs, Bradycardic, No rub noted, No Gallop Abdomen: Bowel Sounds Present, Soft, Non Tender, Non-Distended, Obese Extremities: No clubbing, No cyanosis, Edema Skin: - - No significant change compared to previous Musculoskeletal: No Tenderness to Palpation of Joints or Extremities, No Muscle Wasting Lymphatic: No Cervical, Supraclavicular, or Inguinal Adenopathy Neurological: Cranial nerves II-XII grossly intact, Neuro grossly intact, Motor Exam 5/5 strength throughout, Sensory exam intact to light touch and pain Psych/Mental Status: Alert and oriented to time, place, person, mood and affect Vital Signs Temp Pulse Resp BP Pulse Ox 36.6 C 46 L 16 103/54 L 99 12/26/17 04:00 12/26/17 06:00 12/26/17 06:00 12/26/17 06:00 12/26/17 06:00 Oxygen Flow Rate (L/min) 3 Oxygen Delivery Method Nasal Cannula Weight: 191 kg Body Mass Index (BMI) 67.1 Intake and Output for Last 24 Hours 12/24/17 12/25/17 12/26/17 23:59 23:59 23:59 Intake Total 350 / 350 1646 / 1646 2571 / 2571 Output Total 100 / 100 300 / 300 200 / 200 Balance 250 / 250 1346 / 1346 2371 / 2371 Labs (Last 48 Hours) 12/24/17 12/24/17 12/24/17 16:00 16:10 16:10 WBC 6.0 RBC 2.97 L Hgb 8.6 L Hct 29.0 L MCV 97.6 MCH 29.0 MCHC 29.7 L RDW 19.5 H RDW Differential 65.5 H Plt Count 317 MPV 9.5 Differential Comment SCANNED ESR 103 H PT 31.4 H INR 3.0 APTT 48.3 H Sodium Potassium Chloride Carbon Dioxide Anion Gap BUN Creatinine Estim Creat Clear Calc Est GFR (MDRD) Af Amer Est GFR (MDRD) Non-Af BUN/Creatinine Ratio Glucose Lactic Acid Calcium Phosphorus Magnesium Total Bilirubin AST ALT Alkaline Phosphatase Troponin I Total Protein Albumin Globulin Albumin/Globulin Ratio Urine Color Urine Clarity Urine pH Ur Specific [place] Urine Protein Urine Glucose (UA) Urine Ketones Urine Occult Blood Urine Nitrite Urine Bilirubin Urine Urobilinogen Ur Leukocyte Esterase Urine RBC Urine WBC Ur Squamous Epith Cells Urine Bacteria Urine Mucus Urine Yeast Ur Random Sodium Urine Creatinine Random Vancomycin Digoxin Hep Bs Antigen MRSA (PCR) POSITIVE H POC Glucose 12/24/17 12/24/17 12/24/17 16:10 16:10 18:00 WBC RBC Hgb Hct MCV MCH MCHC RDW RDW Differential Plt Count MPV Differential Comment ESR PT INR APTT Sodium 137 Potassium 5.5 H Chloride 101 Carbon Dioxide 27.0 Anion Gap 9 BUN 66 H Creatinine 7.48 H* Estim Creat Clear Calc 7.58 Est GFR (MDRD) Af Amer 7 L Est GFR (MDRD) Non-Af 6 L BUN/Creatinine Ratio 8.8 L Glucose 92 Lactic Acid 1.4 Calcium 8.1 L Phosphorus Magnesium 2.3 Total Bilirubin 0.50 AST 13 L ALT 8 L Alkaline Phosphatase 92 Troponin I < 0.02 Total Protein 8.1 Albumin 2.4 L Globulin 5.7 H Albumin/Globulin Ratio 0.4 L Urine Color Brown Urine Clarity Turbid Urine pH 5.0 Ur Specific [place] 1.020 Urine Protein 100 H Urine Glucose (UA) Normal Urine Ketones Negative Urine Occult Blood 250 H Urine Nitrite Positive H Urine Bilirubin Negative Urine Urobilinogen Normal Ur Leukocyte Esterase 500 H Urine RBC > 100 SEEN Urine WBC 5-10 SEEN Ur Squamous Epith Cells 0-5 SEEN Urine Bacteria 0 SEEN Urine Mucus 0 SEEN Urine Yeast 1+ Ur Random Sodium Urine Creatinine Random Vancomycin Digoxin Hep Bs Antigen MRSA (PCR) POC Glucose 12/24/17 12/24/17 12/24/17 18:30 18:30 19:58 WBC RBC Hgb Hct MCV MCH MCHC RDW RDW Differential Plt Count MPV Differential Comment ESR PT INR APTT Sodium Potassium Chloride Carbon Dioxide Anion Gap BUN Creatinine Estim Creat Clear Calc Est GFR (MDRD) Af Amer Est GFR (MDRD) Non-Af BUN/Creatinine Ratio Glucose Lactic Acid Calcium Phosphorus Magnesium Total Bilirubin AST ALT Alkaline Phosphatase Troponin I < 0.02 Total Protein Albumin Globulin Albumin/Globulin Ratio Urine Color Urine Clarity Urine pH Ur Specific [place] Urine Protein Urine Glucose (UA) Urine Ketones Urine Occult Blood Urine Nitrite Urine Bilirubin Urine Urobilinogen Ur Leukocyte Esterase Urine RBC Urine WBC Ur Squamous Epith Cells Urine Bacteria Urine Mucus Urine Yeast Ur Random Sodium 52 Urine Creatinine 121.00 Random Vancomycin Digoxin Hep Bs Antigen MRSA (PCR) POC Glucose 12/24/17 12/24/17 12/24/17 19:58 20:12 23:01 WBC RBC Hgb Hct MCV MCH MCHC RDW RDW Differential Plt Count MPV Differential Comment ESR PT INR APTT Sodium Potassium Chloride Carbon Dioxide Anion Gap BUN Creatinine Estim Creat Clear Calc Est GFR (MDRD) Af Amer Est GFR (MDRD) Non-Af BUN/Creatinine Ratio Glucose Lactic Acid Calcium Phosphorus Magnesium Total Bilirubin AST ALT Alkaline Phosphatase Troponin I Total Protein Albumin Globulin Albumin/Globulin Ratio Urine Color Urine Clarity Urine pH Ur Specific [place] Urine Protein Urine Glucose (UA) Urine Ketones Urine Occult Blood Urine Nitrite Urine Bilirubin Urine Urobilinogen Ur Leukocyte Esterase Urine RBC Urine WBC Ur Squamous Epith Cells Urine Bacteria Urine Mucus Urine Yeast Ur Random Sodium Urine Creatinine Random Vancomycin 75.6 H Digoxin 2.27 H* Hep Bs Antigen Pending MRSA (PCR) POC Glucose 65 L 12/24/17 12/24/17 12/25/17 23:30 23:32 04:15 WBC 6.8 RBC 2.98 L Hgb 8.4 L Hct 28.4 L MCV 95.3 MCH 28.2 MCHC 29.6 L RDW 19.6 H RDW Differential 66.2 H Plt Count 294 MPV 8.6 Differential Comment ESR PT INR APTT Sodium Potassium Chloride Carbon Dioxide Anion Gap BUN Creatinine Estim Creat Clear Calc Est GFR (MDRD) Af Amer Est GFR (MDRD) Non-Af BUN/Creatinine Ratio Glucose Lactic Acid Calcium Phosphorus Magnesium Total Bilirubin AST ALT Alkaline Phosphatase Troponin I < 0.02 Total Protein Albumin Globulin Albumin/Globulin Ratio Urine Color Urine Clarity Urine pH Ur Specific [place] Urine Protein Urine Glucose (UA) Urine Ketones Urine Occult Blood Urine Nitrite Urine Bilirubin Urine Urobilinogen Ur Leukocyte Esterase Urine RBC Urine WBC Ur Squamous Epith Cells Urine Bacteria Urine Mucus Urine Yeast Ur Random Sodium Urine Creatinine Random Vancomycin Digoxin Hep Bs Antigen MRSA (PCR) POC Glucose 74 12/25/17 12/25/17 12/25/17 04:15 04:15 09:58 WBC RBC Hgb Hct MCV MCH MCHC RDW RDW Differential Plt Count MPV Differential Comment ESR PT 29.5 H INR 2.8 APTT Sodium 137 Potassium 4.5 Chloride 99 Carbon Dioxide 28.0 Anion Gap BUN 40 H Creatinine 5.25 H Estim Creat Clear Calc 10.80 Est GFR (MDRD) Af Amer 11 L Est GFR (MDRD) Non-Af 9 L BUN/Creatinine Ratio 7.6 L Glucose 78 Lactic Acid Calcium 7.2 L Phosphorus 5.4 H Magnesium Total Bilirubin AST ALT Alkaline Phosphatase Troponin I < 0.02 Total Protein Albumin 2.3 L Globulin Albumin/Globulin Ratio Urine Color Urine Clarity Urine pH Ur Specific [place] Urine Protein Urine Glucose (UA) Urine Ketones Urine Occult Blood Urine Nitrite Urine Bilirubin Urine Urobilinogen Ur Leukocyte Esterase Urine RBC Urine WBC Ur Squamous Epith Cells Urine Bacteria Urine Mucus Urine Yeast Ur Random Sodium Urine Creatinine Random Vancomycin Digoxin Hep Bs Antigen MRSA (PCR) POC Glucose 80 12/25/17 12/25/17 12/25/17 12:10 17:36 22:57 WBC RBC Hgb Hct MCV MCH MCHC RDW RDW Differential Plt Count MPV Differential Comment ESR PT INR APTT Sodium Potassium Chloride Carbon Dioxide Anion Gap BUN Creatinine Estim Creat Clear Calc Est GFR (MDRD) Af Amer Est GFR (MDRD) Non-Af BUN/Creatinine Ratio Glucose Lactic Acid Calcium Phosphorus Magnesium Total Bilirubin AST ALT Alkaline Phosphatase Troponin I Total Protein Albumin Globulin Albumin/Globulin Ratio Urine Color Urine Clarity Urine pH Ur Specific [place] Urine Protein Urine Glucose (UA) Urine Ketones Urine Occult Blood Urine Nitrite Urine Bilirubin Urine Urobilinogen Ur Leukocyte Esterase Urine RBC Urine WBC Ur Squamous Epith Cells Urine Bacteria Urine Mucus Urine Yeast Ur Random Sodium Urine Creatinine Random Vancomycin 64.4 H Digoxin 2.12 H* Hep Bs Antigen MRSA (PCR) POC Glucose 71 101 05/06/18 05/06/18 05/06/18 04:50 04:50 04:50 WBC RBC Hgb Hct MCV MCH MCHC RDW RDW Differential Plt Count MPV Differential Comment ESR PT Pending INR Pending APTT Sodium 136 Potassium 4.0 Chloride 98 Carbon Dioxide 29.0 Anion Gap BUN 25 H Creatinine 3.76 H Estim Creat Clear Calc 15.08 Est GFR (MDRD) Af Amer 16 L Est GFR (MDRD) Non-Af 13 L BUN/Creatinine Ratio 6.6 L Glucose 95 Lactic Acid Calcium 7.5 L Phosphorus 4.9 Magnesium Total Bilirubin AST ALT Alkaline Phosphatase Troponin I Total Protein Albumin 2.2 L Globulin Albumin/Globulin Ratio Urine Color Urine Clarity Urine pH Ur Specific [place] Urine Protein Urine Glucose (UA) Urine Ketones Urine Occult Blood Urine Nitrite Urine Bilirubin Urine Urobilinogen Ur Leukocyte Esterase Urine RBC Urine WBC Ur Squamous Epith Cells Urine Bacteria Urine Mucus Urine Yeast Ur Random Sodium Urine Creatinine Random Vancomycin TNP Digoxin 1.91 Hep Bs Antigen MRSA (PCR) POC Glucose 12/26/17 06:40 WBC RBC Hgb Hct MCV MCH MCHC RDW RDW Differential Plt Count MPV Differential Comment ESR PT INR APTT Sodium Potassium Chloride Carbon Dioxide Anion Gap BUN Creatinine Estim Creat Clear Calc Est GFR (MDRD) Af Amer Est GFR (MDRD) Non-Af BUN/Creatinine Ratio Glucose Lactic Acid Calcium Phosphorus Magnesium Total Bilirubin AST ALT Alkaline Phosphatase Troponin I Total Protein Albumin Globulin Albumin/Globulin Ratio Urine Color Urine Clarity Urine pH Ur Specific [place] Urine Protein Urine Glucose (UA) Urine Ketones Urine Occult Blood Urine Nitrite Urine Bilirubin Urine Urobilinogen Ur Leukocyte Esterase Urine RBC Urine WBC Ur Squamous Epith Cells Urine Bacteria Urine Mucus Urine Yeast Ur Random Sodium Urine Creatinine Random Vancomycin Pending Digoxin Hep Bs Antigen MRSA (PCR) POC Glucose Medical Necessity - Tobacco Use Smoking Status: Former smoker Assessment/Plan Active and Suspected Problems (Last Updated 12/07/17 @ 09:05 by Thomas Carrasco MD) Acute kidney injury (Acute) Hyperkalemia (Acute) Digoxin toxicity (Acute) Vancomycin toxicity (Acute) RECOMMENDATIONS: 1. Defer to nephrology on timing of hemodialysis 2. BiPAP nightly as needed 3. Hold metformin, Coumadin, vancomycin, Flagyl, digoxin and nadolol 4. Caution with opiate medications in the setting of renal failure 5. Wean oxygen as tolerated 6. Okay to transfer from the intensive care unit from my perspective IMPRESSIONS: 1. Sinus bradycardia Factorial etiology of sinus bradycardia including elevated potassium and digoxin. No atropine has been noted overnight. Patient continues to be bradycardic, but blood pressures have been acceptable. Patient has received 2 doses of hemodialysis and likely to be transferred from the intensive care unit. 2. Acute renal failure secondary to drug toxicity She does have a history of congestive heart failure and is on Lasix therapy at baseline. Marginal urine output at this time. Patient is on Coumadin therapy and has had an elevated INR. However, line placement appears to have no complications at this time. Nephrology has been consulted. 3. Acute on chronic diastolic congestive heart failure Patient has been treated with Lasix in the past. Patient does have increased alveolar infiltrates noted on chest x-ray. Patient currently on 3 L nasal cannula. May attempt volume removal with hemodialysis. Hold nadolol for now given patient's bradycardia. Likely resume baseline medications in the next 24-48 hours. 4. Personal history of chronic atrial fibrillation/hypertension/heart failure/pulmonary hypertension Patient appears to be in atrial fibrillation at this time. Patient is anticoagulated. Bradycardia multifactorial. Hold on further anticoagulation at this time. Patient would benefit from nocturnal BiPAP therapy. Encourage compliance 5. Diabetes type II/hypoglycemia Unclear etiology of hypoglycemia noted previously. Responded to p.o. intake. Patient was on metformin previously, but no secretagogues were noted on her MAR. Continue sliding scale insulin coverage and Accu-Cheks. 6. Super morbid obesity/depression/neuropathy Complicates care, management, recovery and prognosis. Resume home medications as indicated. Physical therapy to continue work with patient. Patient has therapeutic INR. No SCD secondary to leg wounds 7. Leg wounds with history of MRSA Patient's vancomycin level is still in toxic range. Patient likely to have hemodialysis today. Wound nurse to see patient and provide recommendations. Patient may need wound VAC placement. Code Visit Inpatient E&M: [address] [facility] Hosp L3
[2017-12-26 07:53] LABS: Vancomycin, Random Level 53.9 ug/mL (0.0-15.0)
--- NOTE | 2017-12-26 08:53 | NURSING ---
Attempted to call consult for DR GARDNER. Per postage machine operator, he is not taking call today for new consults. Comes on tomorrow morning at 0700 for consults.
[2017-12-26 09:27] LABS: HEPATITIS B SURFACE AG Negative (Negative)
[2017-12-26 10:55] LABS: Bedside Glucose 93 mg/dL (70-110)
[2017-12-26] MEDS: Famotidine 20 MG Tablet PO (11:38)
[2017-12-26 13:28] LABS: Bacteria 0 SEEN /hpf (None Seen); Mucous, Urine 0 SEEN /hpf (<or=2+); Squamous Epithelial Cells - UA 0 SEEN /hpf (5-10); White Blood Cells 0 SEEN /hpf (0-5)
[2017-12-26 13:30] LABS: Color, Urine Brown (Yellow); Glucose, Dipstick Normal (Normal); Ketone-Dipstick 5 mg/dl (Negative); Leukocyte Esterase-Dipstick 500 /ul (Negative); Nitrite-Dipstick Positive (Negative); Occult Blood-Urine 250 /ul (Negative); Protein-Dipstick 100 mg/dl (Negative); Urine Bilirubin Dipstick 1 mg/dL (Negative); Urine Clarity Turbid (Clear); Urine Urobilinogen Normal (Normal)
[2017-12-26 13:37] LABS: Amorphous Sediment 3+; Red Blood Cells-Urine 25-50 SEEN /hpf (0-5)
[2017-12-26 13:38] LABS: Fine Granular Cast- Urine 10-25 SEEN /lpf (0-5)
[2017-12-26] MEDS: Glucerna Shake 120 ML LIQUID PO ×3 (14:30→23:35)
[2017-12-26 18:10] LABS: Bedside Glucose 128 mg/dL (70-110)
[2017-12-27] VITALS (14 sets, daily range): BP systolic 100–123; BP diastolic 51–76; PULSE 56–96; RESP 14–26; TEMP 36.6–37.1; O2SAT 91–99
[2017-12-27 00:56] LABS: Bedside Glucose 151 mg/dL (70-110)
[2017-12-27] MEDS: LORazepam 0.5 MG Tablet PO (01:57)
[2017-12-27] MEDS: CHLORHEXIDINE GLUC 2% CLOTH 1 EACH TOWELETTE TOPICAL (01:58)
[2017-12-27] MEDS: 0.9% NaCl PICC Flush IV (05:06)
[2017-12-27 05:17] LABS: Absolute Lymphocyte Count 1.03 X10^3/ul (0.83-4.51); Absolute Neutrophil Count 4.2 X10^3/uL (2.0-7.7); Basophil# 0.01 X10^3/uL; Basophil% 0.2 % (0-1); Eosinophil# 0.29 X10^3/uL; Eosinophils% 4.7 % (0-5); Hematocrit 25.8 % (37-47); Hemoglobin 7.8 g/dl (12.0-15.0); Lymphocyte # 1.03 X10^3/ul (4.0); Lymphocyte % 16.8 % (19-41); Mean Corp Hgb Conc 30.2 g/gl (32-36); Mean Corpuscular Hgb 29.1 pg (27.0-32.0); Mean Corpuscular Volume 96.3 fL (81-99); Mean Platelet Vol. 9.2 fl (6.2-12.0); Monocyte# 0.62 X10^3/uL; Monocyte% 10.1 % (0-10); Neutrophil # 4.17 X10^3/uL (2.7-7.7); Platelet Count 247 K/mm3 (150-450); RBC Distribution Width CV 19.4 % (11.6-14.6); RBC Distribution Width SD 63.4 fl (35.1-43.9); Red Blood Count 2.68 M/mm3 (4.2-5.4); White Blood Count 6.1 K/mm3 (4.4-11.0)
[2017-12-27 05:22] LABS: International Normalized Ratio 2.1; Prothrombin Time (Protime)PT. 23.6 SECONDS (11.7-14.9)
[2017-12-27 05:29] LABS: Albumin, Serum 1.9 g/dL (3.2-5.0); BUN 29 mg/dL (7-18); BUN/Creat Ratio 7.4 RATIO (10-20); Calcium,Total 7.5 mg/dL (8.5-10.1); Chloride 100 mmol/L (98-107); Creatinine, Serum 3.91 mg/dL (0.55-1.02); EST Glomerular Filtration Rate 13 mL/min (>60); Est Glom Filt Rate - Afr Amer 15 mL/min (>60); Glucose 136 mg/dL (74-106); Phosphorus 5.3 mg/dL (2.5-4.9); Sodium Level 136 mmol/L (136-145)
[2017-12-27 05:34] LABS: POSITIVE COUNT NO; POSITIVE DIFFERENTIAL NO; POSITIVE MORPHOLOGY NO
--- NOTE | 2017-12-27 06:20 | PCM.PROGNOTE ---
Patient Problems: Active and Suspected Problems (Last Updated 12/07/17 @ 09:05 by Thomas Carrasco MD) Acute kidney injury (Acute) Hyperkalemia (Acute) Digoxin toxicity (Acute) Vancomycin toxicity (Acute) Subjective: Patient is a 57-year-old female with a past medical history of diabetes mellitus type 2, pulmonary hypertension, chronic atrial fibrillation, chronic anticoagulation with Warfarin, hypertension, obstructive sleep apnea with pulmonary hypertension (non-compliant with CPAP), super obesity and recent debridement of extensive wounds of BL LE's infected with MRSA who was admitted to the the ICU on 12/24/17 with acute oliguric renal failure, vancomycin toxicity and bradycardia secondary to digoxin toxicity. Creatinine at admission was 7.48 (up from 0.93 at recent admission in November for non-healing ulcers of the LE's with MRSA cellulitis) and the potassium was 5.5. Lactic acid was 1.4. UA showed greater than 100 RBCs per high-power field and 5-10 white blood cells with no bacteria. Digoxin level was 2.27 and the vancomycin was 75.6. Nephrology was consulted and a dialysis catheter was inserted in the RIJ. She was dialyzed on 12/24 and 12/25. Citalopram, gabapentin, symbicort, dig, diltiazem, ferrous sulfate, Flonase, metformin, nadolol, torsemide and warfarin were discontinued at admission. All events of the past 24 hours have been reviewed. TMAX: Afebrile since admission Vital signs: Current heart rate is in the 50s. Blood pressure is 100/76 and the respiratory rate is 14. She is 98% saturated on a 3 L nasal cannula. She wore BiPAP for only 2 hours last night. Fluid balance: +6264 since admission. Urine output: Urine output on 12/26/2017 was 650 cc with an additional 100 cc overnight. Weight: Weight has increased from 416 pounds to 425 pounds since admission. All radiologic testing was reviewed: N/A All labs were personally reviewed: Blood cell count remains normal at 6.1 with an unremarkable differential. Hemoglobin is 7.8, down from 8.6 at admission. Platelets are within normal limits. Creatinine today is 3.91 with a BUN of 29. Phosphorus is high at 5.3 and corrected calcium is within normal limits. Digoxin level today is 1.76 and the random vancomycin level is 48.5. Microbiology: Urine culture taken from the [place] catheter is pending. Telemetry: ECHO: has never had an ECHO at this institution EKG: Subjective: She is c/o anxiety. Denies CP, abdominal pain, nausea. States she is feeling much better than at admission. - Physical Exam General: Alert, Oriented x3, Cooperative, No apparent distress HEENT: Atraumatic, PERRLA, EOMI, Normocephalic Oral: Moist Mucosa Neck: Carotid Bruit, Left - could not evaluate the right due to the presence of the RIJ Lungs: Clear to auscultation - anterior, No wheeze Cardiovascular: Irregular Rate - AF...HR over the past 24 hours has ranged fdrom 46- 102 and is currently in the 70's, Murmur, No rub noted, No Gallop Abdomen: Bowel Sounds Present, Soft, Non Tender, Non-Distended, Obese, - - denies diarrhea or constipation Extremities: No clubbing, No cyanosis, Edema Skin: No rashes, - - will examoine the wounds when she is seen by the wound care nurse Neurological: Cranial nerves II-XII grossly intact, Neuro grossly intact Psych/Mental Status: Normal Affect, Appropriate Vital Signs Temp Pulse Resp BP Pulse Ox 98.8 F 56 L 14 100/76 98 12/27/17 05:00 12/27/17 05:00 12/27/17 05:00 12/27/17 05:00 12/27/17 05:00 Oxygen Flow Rate (L/min) 3 Oxygen Delivery Method Nasal Cannula Weight: 425 lb 14.929 oz Body Mass Index (BMI) 67.1 Intake and Output for Last 24 Hours 12/25/17 12/26/17 12/27/17 23:59 23:59 23:59 Intake Total 1646 / 1646 4798 / 4798 620 / 620 Output Total 300 / 300 650 / 650 100 / 100 Balance 1346 / 1346 4148 / 4148 520 / 520 Laboratory Tests Past 24 Hrs 12/24/17 12/26/17 12/26/17 20:12 04:50 04:50 WBC RBC Hgb Hct MCV MCH MCHC RDW RDW Differential Plt Count MPV Immature Gran % (Auto) Neut % (Auto) Lymph % (Auto) [place] % (Auto) Eos % (Auto) Baso % (Auto) Absolute Neuts (auto) Absolute Lymphs (auto) Total Counted PT 23.4 H INR 2.1 Sodium Potassium Chloride Carbon Dioxide BUN Creatinine Estim Creat Clear Calc Est GFR (MDRD) Af Amer Est GFR (MDRD) Non-Af BUN/Creatinine Ratio Glucose Calcium Phosphorus Albumin Urine Color Urine Clarity Urine pH Ur Specific [place] Urine Protein Urine Glucose (UA) Urine Ketones Urine Occult Blood Urine Nitrite Urine Bilirubin Urine Urobilinogen Ur Leukocyte Esterase Urine RBC Urine WBC Ur Squamous Epith Cells Amorphous Sediment Urine Bacteria Fine Granular Casts Urine Mucus Random Vancomycin TNP Digoxin 1.91 Hep Bs Antigen Negative 12/26/17 12/26/17 12/27/17 06:40 12:30 05:05 WBC RBC Hgb Hct MCV MCH MCHC RDW RDW Differential Plt Count MPV Immature Gran % (Auto) Neut % (Auto) Lymph % (Auto) [place] % (Auto) Eos % (Auto) Baso % (Auto) Absolute Neuts (auto) Absolute Lymphs (auto) Total Counted PT INR Sodium 136 Potassium 4.0 Chloride 100 Carbon Dioxide 30.0 BUN 29 H Creatinine 3.91 H Estim Creat Clear Calc 14.50 Est GFR (MDRD) Af Amer 15 L Est GFR (MDRD) Non-Af 13 L BUN/Creatinine Ratio 7.4 L Glucose 136 H Calcium 7.5 L Phosphorus 5.3 H Albumin 1.9 L Urine Color Brown Urine Clarity Turbid Urine pH 5.0 Ur Specific [place] 1.020 Urine Protein 100 H Urine Glucose (UA) Normal Urine Ketones 5 H Urine Occult Blood 250 H Urine Nitrite Positive H Urine Bilirubin 1 H Urine Urobilinogen Normal Ur Leukocyte Esterase 500 H Urine RBC 25-50 SEEN Urine WBC 0 SEEN Ur Squamous Epith Cells 0 SEEN Amorphous Sediment 3+ Urine Bacteria 0 SEEN Fine Granular Casts 10-25 SEEN Urine Mucus 0 SEEN Random Vancomycin 53.9 H Digoxin Hep Bs Antigen 12/27/17 12/27/17 12/27/17 05:05 05:05 05:05 WBC 6.1 RBC 2.68 L Hgb 7.8 L Hct 25.8 L MCV 96.3 MCH 29.1 MCHC 30.2 L RDW 19.4 H RDW Differential 63.4 H Plt Count 247 MPV 9.2 Immature Gran % (Auto) 0.200 Neut % (Auto) 68.0 Lymph % (Auto) 16.8 L [place] % (Auto) 10.1 H Eos % (Auto) 4.7 Baso % (Auto) 0.2 Absolute Neuts (auto) 4.2 Absolute Lymphs (auto) 1.03 Total Counted Not Reportable PT 23.6 H INR 2.1 Sodium Potassium Chloride Carbon Dioxide BUN Creatinine Estim Creat Clear Calc Est GFR (MDRD) Af Amer Est GFR (MDRD) Non-Af BUN/Creatinine Ratio Glucose Calcium Phosphorus Albumin Urine Color Urine Clarity Urine pH Ur Specific [place] Urine Protein Urine Glucose (UA) Urine Ketones Urine Occult Blood Urine Nitrite Urine Bilirubin Urine Urobilinogen Ur Leukocyte Esterase Urine RBC Urine WBC Ur Squamous Epith Cells Amorphous Sediment Urine Bacteria Fine Granular Casts Urine Mucus Random Vancomycin Pending Digoxin Pending Hep Bs Antigen POC Glucose 12/26/17 12/26/17 12/26/17 23:27 18:02 10:47 POC Glucose 151 H 128 H 93 Medical Necessity - Tobacco Use Smoking Status: Former smoker Assessment/Plan Active and Suspected Problems (Last Updated 12/07/17 @ 09:05 by Thomas Carrasco MD) Acute kidney injury (Acute) Hyperkalemia (Acute) Digoxin toxicity (Acute) Vancomycin toxicity (Acute) Impressions 1. Acute kidney injury with oliguria - has had HD X 2 2. severe bradycardia - due to digoxin toxicity 3. Vancomycin toxicity 4. Chronic atrial fibrillation 5. Super obesity 6. Chronic anticoagulation with warfarin 7. Anxiety/depression - anxiety exacerbated by acute SSRI withdrawal 8. Obstructive sleep apnea-noncompliant with CPAP 9. Diabetes mellitus type 2 - uncontrolled, HGBA1C on 12/08 was 11.3% 10. MRSA cellulitis of the lower extremities with recent extensive debridement on admission in November 2017 11. Pulmonary hypertension 12. Heart murmur 13. Left carotid bruit-unable to assess the right carotid secondary to presence of right IJ 14. Digoxin toxicity 15. Iron deficiency anemia Transfer to PCU Restart warfarin and continue daily PT/INR Restart citalopram at a lower dose Continue lorazepam - cautious use since she has HUNTER and is not compliant with CPAP recheck lab in the AM Will discuss with Dr. Romero when to back off the fluids continue famotidine for GI prophylaxis. Examine the wounds when the patient is seen by the wound care nurse. Code Visit Inpatient E&M: [id number] [facility] Hosp L3
[2017-12-27 06:23] LABS: Digoxin Level 1.76 ng/mL (0.80-2.00); Vancomycin, Random Level 48.5 ug/mL (0.0-15.0)
--- NOTE | 2017-12-27 06:57 | PN_ITS ---
Subjective: The patient was seen and examined at the bedside this morning. Events from the last 24 hours have been reviewed. The patient is currently afebrile, hemodynamically stable and maintaining appropriate oxygen saturations on 3 L/ min via nasal cannula. The patient denies any shortness of breath or cough. She has anxiety related to nocturnal BiPAP utilization. Objective: The patient's most recent lab work, culture data and imaging studies have all been personally reviewed. Urine cultures pending. General: Alert, Cooperative, No apparent distress HEENT: Atraumatic, PERRLA, Normocephalic Oral: Moist Mucosa, No Gingival or Mucosal Lesions/ Ulcerations Neck: Supple, No Nodes, Trachea Midline, - - Right IJ temporary hemodialysis catheter in place. Lungs: No rhonchi, No wheeze, No rales, Diminished Cardiovascular: Normal S1, Normal S2, No murmurs, Irregular Rate Abdomen: Bowel Sounds Present, Soft, Non Tender, Obese Extremities: No clubbing, No cyanosis, Edema, - - Wrapped lower extremities Skin: - - No significant change from previous Musculoskeletal: No Tenderness to Palpation of Joints or Extremities Lymphatic: No Cervical, Supraclavicular, or Inguinal Adenopathy Neurological: Neuro grossly intact Psych/Mental Status: Normal Affect, Appropriate Vital Signs Temp Pulse Resp BP Pulse Ox 98.8 F 56 L 14 100/76 98 12/27/17 05:00 12/27/17 05:00 12/27/17 05:00 12/27/17 05:00 12/27/17 05:00 Oxygen Flow Rate (L/min) 3 Oxygen Delivery Method Nasal Cannula Weight: 425 lb 14.929 oz Body Mass Index (BMI) 67.1 Intake and Output for Last 24 Hours 12/25/17 12/26/17 12/27/17 23:59 23:59 23:59 Intake Total 1646 / 1646 4798 / 4798 620 / 620 Output Total 300 / 300 650 / 650 100 / 100 Balance 1346 / 1346 4148 / 4148 520 / 520 Labs (Last 48 Hours) 12/24/17 12/25/17 12/25/17 20:12 09:58 12:10 WBC RBC Hgb Hct MCV MCH MCHC RDW RDW Differential Plt Count MPV Immature Gran % (Auto) Neut % (Auto) Lymph % (Auto) [place] % (Auto) Eos % (Auto) Baso % (Auto) Absolute Neuts (auto) Absolute Lymphs (auto) Total Counted PT INR Sodium Potassium Chloride Carbon Dioxide BUN Creatinine Estim Creat Clear Calc Est GFR (MDRD) Af Amer Est GFR (MDRD) Non-Af BUN/Creatinine Ratio Glucose Calcium Phosphorus Albumin Urine Color Urine Clarity Urine pH Ur Specific [place] Urine Protein Urine Glucose (UA) Urine Ketones Urine Occult Blood Urine Nitrite Urine Bilirubin Urine Urobilinogen Ur Leukocyte Esterase Urine RBC Urine WBC Ur Squamous Epith Cells Amorphous Sediment Urine Bacteria Fine Granular Casts Urine Mucus Random Vancomycin 64.4 H Digoxin 2.12 H* Hep Bs Antigen Negative POC Glucose 80 12/25/17 12/25/17 12/26/17 17:36 22:57 04:50 WBC RBC Hgb Hct MCV MCH MCHC RDW RDW Differential Plt Count MPV Immature Gran % (Auto) Neut % (Auto) Lymph % (Auto) [place] % (Auto) Eos % (Auto) Baso % (Auto) Absolute Neuts (auto) Absolute Lymphs (auto) Total Counted PT INR Sodium 136 Potassium 4.0 Chloride 98 Carbon Dioxide 29.0 BUN 25 H Creatinine 3.76 H Estim Creat Clear Calc 15.08 Est GFR (MDRD) Af Amer 16 L Est GFR (MDRD) Non-Af 13 L BUN/Creatinine Ratio 6.6 L Glucose 95 Calcium 7.5 L Phosphorus 4.9 Albumin 2.2 L Urine Color Urine Clarity Urine pH Ur Specific [place] Urine Protein Urine Glucose (UA) Urine Ketones Urine Occult Blood Urine Nitrite Urine Bilirubin Urine Urobilinogen Ur Leukocyte Esterase Urine RBC Urine WBC Ur Squamous Epith Cells Amorphous Sediment Urine Bacteria Fine Granular Casts Urine Mucus Random Vancomycin Digoxin Hep Bs Antigen POC Glucose 71 101 12/26/17 12/26/17 12/26/17 04:50 04:50 06:40 WBC RBC Hgb Hct MCV MCH MCHC RDW RDW Differential Plt Count MPV Immature Gran % (Auto) Neut % (Auto) Lymph % (Auto) [place] % (Auto) Eos % (Auto) Baso % (Auto) Absolute Neuts (auto) Absolute Lymphs (auto) Total Counted PT 23.4 H INR 2.1 Sodium Potassium Chloride Carbon Dioxide BUN Creatinine Estim Creat Clear Calc Est GFR (MDRD) Af Amer Est GFR (MDRD) Non-Af BUN/Creatinine Ratio Glucose Calcium Phosphorus Albumin Urine Color Urine Clarity Urine pH Ur Specific [place] Urine Protein Urine Glucose (UA) Urine Ketones Urine Occult Blood Urine Nitrite Urine Bilirubin Urine Urobilinogen Ur Leukocyte Esterase Urine RBC Urine WBC Ur Squamous Epith Cells Amorphous Sediment Urine Bacteria Fine Granular Casts Urine Mucus Random Vancomycin TNP 53.9 H Digoxin 1.91 Hep Bs Antigen POC Glucose 12/26/17 12/26/17 12/26/17 10:47 12:30 18:02 WBC RBC Hgb Hct MCV MCH MCHC RDW RDW Differential Plt Count MPV Immature Gran % (Auto) Neut % (Auto) Lymph % (Auto) [place] % (Auto) Eos % (Auto) Baso % (Auto) Absolute Neuts (auto) Absolute Lymphs (auto) Total Counted PT INR Sodium Potassium Chloride Carbon Dioxide BUN Creatinine Estim Creat Clear Calc Est GFR (MDRD) Af Amer Est GFR (MDRD) Non-Af BUN/Creatinine Ratio Glucose Calcium Phosphorus Albumin Urine Color Brown Urine Clarity Turbid Urine pH 5.0 Ur Specific [place] 1.020 Urine Protein 100 H Urine Glucose (UA) Normal Urine Ketones 5 H Urine Occult Blood 250 H Urine Nitrite Positive H Urine Bilirubin 1 H Urine Urobilinogen Normal Ur Leukocyte Esterase 500 H Urine RBC 25-50 SEEN Urine WBC 0 SEEN Ur Squamous Epith Cells 0 SEEN Amorphous Sediment 3+ Urine Bacteria 0 SEEN Fine Granular Casts 10-25 SEEN Urine Mucus 0 SEEN Random Vancomycin Digoxin Hep Bs Antigen POC Glucose 93 128 H 12/26/17 12/27/17 12/27/17 23:27 05:05 05:05 WBC RBC Hgb Hct MCV MCH MCHC RDW RDW Differential Plt Count MPV Immature Gran % (Auto) Neut % (Auto) Lymph % (Auto) [place] % (Auto) Eos % (Auto) Baso % (Auto) Absolute Neuts (auto) Absolute Lymphs (auto) Total Counted PT 23.6 H INR 2.1 Sodium 136 Potassium 4.0 Chloride 100 Carbon Dioxide 30.0 BUN 29 H Creatinine 3.91 H Estim Creat Clear Calc 14.50 Est GFR (MDRD) Af Amer 15 L Est GFR (MDRD) Non-Af 13 L BUN/Creatinine Ratio 7.4 L Glucose 136 H Calcium 7.5 L Phosphorus 5.3 H Albumin 1.9 L Urine Color Urine Clarity Urine pH Ur Specific [place] Urine Protein Urine Glucose (UA) Urine Ketones Urine Occult Blood Urine Nitrite Urine Bilirubin Urine Urobilinogen Ur Leukocyte Esterase Urine RBC Urine WBC Ur Squamous Epith Cells Amorphous Sediment Urine Bacteria Fine Granular Casts Urine Mucus Random Vancomycin Digoxin Hep Bs Antigen POC Glucose 151 H 12/27/17 12/27/17 05:05 05:05 WBC 6.1 RBC 2.68 L Hgb 7.8 L Hct 25.8 L MCV 96.3 MCH 29.1 MCHC 30.2 L RDW 19.4 H RDW Differential 63.4 H Plt Count 247 MPV 9.2 Immature Gran % (Auto) 0.200 Neut % (Auto) 68.0 Lymph % (Auto) 16.8 L [place] % (Auto) 10.1 H Eos % (Auto) 4.7 Baso % (Auto) 0.2 Absolute Neuts (auto) 4.2 Absolute Lymphs (auto) 1.03 Total Counted Not Reportable PT INR Sodium Potassium Chloride Carbon Dioxide BUN Creatinine Estim Creat Clear Calc Est GFR (MDRD) Af Amer Est GFR (MDRD) Non-Af BUN/Creatinine Ratio Glucose Calcium Phosphorus Albumin Urine Color Urine Clarity Urine pH Ur Specific [place] Urine Protein Urine Glucose (UA) Urine Ketones Urine Occult Blood Urine Nitrite Urine Bilirubin Urine Urobilinogen Ur Leukocyte Esterase Urine RBC Urine WBC Ur Squamous Epith Cells Amorphous Sediment Urine Bacteria Fine Granular Casts Urine Mucus Random Vancomycin 48.5 H Digoxin 1.76 Hep Bs Antigen POC Glucose Clinical Impression(s) from Imaging Studies Chest X-Ray 12/24/17 15:10 IMPRESSION: Right IJ central venous catheter as above with diffuse pulmonary edema Electronically Signed: Clinton Gallagher DO at 15:56 EDT Tel , Service support , Medical Necessity - Tobacco Use Smoking Status: Former smoker Assessment/Plan Active and Suspected Problems (Last Updated 12/07/17 @ 09:05 by Thomas Carrasco MD) Acute kidney injury (Acute) Hyperkalemia (Acute) Digoxin toxicity (Acute) Vancomycin toxicity (Acute) RECOMMENDATIONS: 1. Okay from my perspective to restart Coumadin. 2. Continue hemodialysis per nephrology recommendations. 3. Continue nocturnal BiPAP therapy. 4. Wean supplemental oxygen as tolerated 5. Encourage incentive spirometer use IMPRESSIONS: 1. Sinus bradycardia Improved at this time. Multifactorial etiology of sinus bradycardia including elevated potassium and digoxin in the setting of acute kidney injury. 2. Acute renal failure secondary to drug toxicity She does have a history of congestive heart failure and is on Lasix therapy at baseline. Nephrology is following with ongoing hemodialysis per their recommendations. 3. Acute on chronic diastolic congestive heart failure Patient has been treated with Lasix in the past. Patient does have increased alveolar infiltrates noted on chest x-ray. Patient currently on 3 L nasal cannula. Continue hemodialysis per nephrology recommendations. Consideration for discontinuation of supplemental IV fluids. 4. Personal history of chronic atrial fibrillation/hypertension/heart failure/ pulmonary hypertension Okay to resume Coumadin from my perspective. 5. Diabetes type II/hypoglycemia Continue sliding scale insulin coverage and Accu-Cheks. 6. Super morbid obesity/depression/neuropathy/lower extremity wounds/ obstructive sleep apnea Complicates care, management, recovery and prognosis. Continue local wound care. Continue nocturnal BiPAP therapy as ordered. This note was generated with [employer] dictation software. It may contain incorrect words, spelling, and punctuation that were not noted in checking the note before signing. Code Visit Inpatient E&M: 16326 Subs Hosp L2
[2017-12-27] MEDS: oxyCODONE 5 MG Tablet PO ×3 (09:36→22:34)
[2017-12-27] MEDS: Famotidine 20 MG Tablet PO (09:37)
[2017-12-27] MEDS: Glucerna Shake 120 ML LIQUID PO ×3 (09:37→22:34)
[2017-12-27] MEDS: 0.9% Normal Saline 1,000 ML 100 ML IV (09:38)
[2017-12-27 11:55] LABS: Bedside Glucose 140 mg/dL (70-110)
[2017-12-27] MEDS: Citalopram 20 MG Tablet PO (12:51)
--- NOTE | 2017-12-27 13:44 | PN.RENAL_ITS ---
Patient Problems: Active and Suspected Problems (Last Updated 12/07/17 @ 09:05 by Thomas Carrasco MD) Acute kidney injury (Acute) Hyperkalemia (Acute) Digoxin toxicity (Acute) Vancomycin toxicity (Acute) Subjective: denied SOB, nausea, vomiting. Still with generalized debilitation. Skin breakdown, weaping. Creatinine slightly elevated with marginal renal function. will continue with iv fluids. - Physical Exam General: Alert, Oriented x3, Cooperative, No apparent distress HEENT: PERRLA, EOMI Oral: Moist Mucosa Neck: Supple Lungs: Rales - right base Cardiovascular: Irregular Rate - afib Abdomen: Bowel Sounds Present, Soft, Non Tender, Non-Distended, Obese Extremities: Edema Skin: Ulcer/ Wound Musculoskeletal: No Muscle Wasting Neurological: - - generalized weakness Psych/Mental Status: Normal Affect, Appropriate, Alert and oriented to time, place, person, mood and affect Vital Signs Temp Pulse Resp BP Pulse Ox 98 F 96 26 H 113/58 L 93 12/27/17 11:08 12/27/17 11:55 12/27/17 11:55 12/27/17 11:08 12/27/17 11:55 Oxygen Flow Rate (L/min) 3 Oxygen Delivery Method Nasal Cannula Weight: 193.2 kg Body Mass Index (BMI) 67.1 Intake and Output for Last 24 Hours 12/25/17 12/26/17 12/27/17 23:59 23:59 23:59 Intake Total 1646 / 1646 4798 / 4798 1320 / 1320 Output Total 300 / 300 650 / 650 250 / 250 Balance 1346 / 1346 4148 / 4148 1070 / 1070 Microbiology Past 72 Hours 12/26/17 12:30 Urine Culture - Preliminary Urine Catheter - [place] Yeast Like Organism Laboratory Tests Past 24 Hrs 12/27/17 12/27/17 12/27/17 05:05 05:05 05:05 WBC RBC Hgb Hct MCV MCH MCHC RDW RDW Differential Plt Count MPV Immature Gran % (Auto) Neut % (Auto) Lymph % (Auto) [place] % (Auto) Eos % (Auto) Baso % (Auto) Absolute Neuts (auto) Absolute Lymphs (auto) Total Counted PT 23.6 H INR 2.1 Sodium 136 Potassium 4.0 Chloride 100 Carbon Dioxide 30.0 BUN 29 H Creatinine 3.91 H Estim Creat Clear Calc 14.50 Est GFR (MDRD) Af Amer 15 L Est GFR (MDRD) Non-Af 13 L BUN/Creatinine Ratio 7.4 L Glucose 136 H Calcium 7.5 L Phosphorus 5.3 H Albumin 1.9 L Random Vancomycin 48.5 H Digoxin 1.76 12/27/17 05:05 WBC 6.1 RBC 2.68 L Hgb 7.8 L Hct 25.8 L MCV 96.3 MCH 29.1 MCHC 30.2 L RDW 19.4 H RDW Differential 63.4 H Plt Count 247 MPV 9.2 Immature Gran % (Auto) 0.200 Neut % (Auto) 68.0 Lymph % (Auto) 16.8 L [place] % (Auto) 10.1 H Eos % (Auto) 4.7 Baso % (Auto) 0.2 Absolute Neuts (auto) 4.2 Absolute Lymphs (auto) 1.03 Total Counted Not Reportable PT INR Sodium Potassium Chloride Carbon Dioxide BUN Creatinine Estim Creat Clear Calc Est GFR (MDRD) Af Amer Est GFR (MDRD) Non-Af BUN/Creatinine Ratio Glucose Calcium Phosphorus Albumin Random Vancomycin Digoxin POC Glucose 12/27/17 12/26/17 12/26/17 11:51 23:27 18:02 POC Glucose 140 H 151 H 128 H Medical Necessity - Tobacco Use Smoking Status: Former smoker Assessment/Plan Active and Suspected Problems (Last Updated 12/07/17 @ 09:05 by Thomas Carrasco MD) Acute kidney injury (Acute) Hyperkalemia (Acute) Digoxin toxicity (Acute) Vancomycin toxicity (Acute) 1. Acute kidney injury multifactorial from medications, bradycardia cardia, hypotension. FeNa <1. continue with iv fluids. Hold dialysis today. No uremic symptoms. volume status stable with good oxygenation. Last dialysis Wednesday. 2. Bradycardia persists despite dig level back to therapeutic range. Off BBlocker Cardizem. 3. Metabolic encephalopathy resolved 4. Hyperkalemia resolved with dialysis 5. Vancomycin toxicity level improved with dialysis 6. MRSA leg wound. Continue wound VAC 7. Diabetes mellitus type 2. Discontinue metformin 8. Hypertension stable 9. Super morbid obesity with debilitation 10. chronic atrial fibrillation on anticoagulation
--- NOTE | 2017-12-27 14:37 | PCM.PN.SRG ---
Subjective: Patient known to me. She had surgery on 12/09/17 where she underwent surgical preparation right posterior leg with incision and drainage and excisional debridement nonhealing infected MRSA ulcer abscess (264 cm2) and surgical preparation right posterior thigh with incision and drainage and excisional debridement nonhealing infected MRSA ulcer abscess (112 cm2) and surgical preparation left posterior leg with incision and drainage and excisional debridement nonhealing infected MRSA ulcer abscess (216 cm2) and surgical preparation right lateral ankle with incision and drainage and excisional debridement nonhealing infected MRSA ulcer abscess (4 cm2) and surgical preparation left medial ankle with incision and drainage and excisional debridement nonhealing infected MRSA ulcer abscess (4 cm2). - Physical Exam General: Alert, Oriented x3 HEENT: PERRLA, EOMI Neck: Supple Lungs: Clear to auscultation Cardiovascular: Regular rate, Regular Rhythm Abdomen: Soft, Non-Distended Skin: Ulcer/ Wound - some granulation tissue seen. Some exudate also present. There was some green staining on the dressings. Minimal odor to suggest Pseudomonas, though. No purulent drainage noted. Lymphatic: - - no inguinal adenopathy. Neurological: Cranial nerves II-XII grossly intact Psych/Mental Status: Normal Affect, Appropriate Vital Signs Temp Pulse Resp BP Pulse Ox 98 F 96 26 H 113/58 L 93 12/27/17 11:08 12/27/17 11:55 12/27/17 11:55 12/27/17 11:08 12/27/17 11:55 Oxygen Flow Rate (L/min) 3 Oxygen Delivery Method Nasal Cannula Weight: 425 lb 14.929 oz Body Mass Index (BMI) 67.1 Intake and Output for Last 24 Hours 12/25/17 12/26/17 12/27/17 23:59 23:59 23:59 Intake Total 1646 / 1646 4798 / 4798 1320 / 1320 Output Total 300 / 300 650 / 650 250 / 250 Balance 1346 / 1346 4148 / 4148 1070 / 1070 Microbiology Past 72 Hours 12/26/17 12:30 Urine Culture - Preliminary Urine Catheter - [place] Yeast Like Organism Laboratory Tests Past 24 Hrs 12/27/17 12/27/17 12/27/17 05:05 05:05 05:05 WBC RBC Hgb Hct MCV MCH MCHC RDW RDW Differential Plt Count MPV Immature Gran % (Auto) Neut % (Auto) Lymph % (Auto) [place] % (Auto) Eos % (Auto) Baso % (Auto) Absolute Neuts (auto) Absolute Lymphs (auto) Total Counted PT 23.6 H INR 2.1 Sodium 136 Potassium 4.0 Chloride 100 Carbon Dioxide 30.0 BUN 29 H Creatinine 3.91 H Estim Creat Clear Calc 14.50 Est GFR (MDRD) Af Amer 15 L Est GFR (MDRD) Non-Af 13 L BUN/Creatinine Ratio 7.4 L Glucose 136 H Calcium 7.5 L Phosphorus 5.3 H Albumin 1.9 L Random Vancomycin 48.5 H Digoxin 1.76 12/27/17 05:05 WBC 6.1 RBC 2.68 L Hgb 7.8 L Hct 25.8 L MCV 96.3 MCH 29.1 MCHC 30.2 L RDW 19.4 H RDW Differential 63.4 H Plt Count 247 MPV 9.2 Immature Gran % (Auto) 0.200 Neut % (Auto) 68.0 Lymph % (Auto) 16.8 L [place] % (Auto) 10.1 H Eos % (Auto) 4.7 Baso % (Auto) 0.2 Absolute Neuts (auto) 4.2 Absolute Lymphs (auto) 1.03 Total Counted Not Reportable PT INR Sodium Potassium Chloride Carbon Dioxide BUN Creatinine Estim Creat Clear Calc Est GFR (MDRD) Af Amer Est GFR (MDRD) Non-Af BUN/Creatinine Ratio Glucose Calcium Phosphorus Albumin Random Vancomycin Digoxin POC Glucose 12/27/17 12/26/17 12/26/17 11:51 23:27 18:02 POC Glucose 140 H 151 H 128 H Medical Necessity - Tobacco Use Smoking Status: Former smoker Assessment/Plan 1. 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 2. Nonhealing infected MRSA diabetic ulcer abscess right posterior thigh. 3. Nonhealing infected MRSA diabetic ulcer abscess left posterior leg. 4. Nonhealing infected MRSA diabetic ulcer abscess right lateral ankle. 5. Nonhealing infected MRSA diabetic ulcer abscess left medial ankle. 6. Diabetes mellitus. 7. Chronic venous insufficiency with venostasis disease. 8. MRSA. 9. Obesity. 10. Atrial fibrillation on Coumadin. 11. s/p surgical preparation right posterior leg with incision and drainage and excisional debridement nonhealing infected MRSA ulcer abscess (264 cm2) and surgical preparation right posterior thigh with incision and drainage and excisional debridement nonhealing infected MRSA ulcer abscess (112 cm2) and surgical preparation left posterior leg with incision and drainage and excisional debridement nonhealing infected MRSA ulcer abscess (216 cm2) and surgical preparation right lateral ankle with incision and drainage and excisional debridement nonhealing infected MRSA ulcer abscess (4 cm2) and surgical preparation left medial ankle with incision and drainage and excisional debridement nonhealing infected MRSA ulcer abscess (4 cm2). Change wound care to Dakkimberly's dressing changes for a few days until she goes to the ECF. Can restart the VAC anytime after that. Continue Vancomycin for the MRSA. Wound culture is pending. Greenish drainage at the time of the dressing change points to possible Pseudomonas. Encourage nutritional supplementation with protein to help the healing process. After discharge from the ECF, can followup at the [facility]. If there is a plateau in the healing process, can proceed with delayed closure with skin grafting. Prior to any grafting procedure, would check a HgbA1c which needs to be below 8 for an elective procedure. Would also reculture the wounds before any skin grafting is done.
--- NOTE | 2017-12-27 14:58 | NURSING ---
dressing change completed per [facility] wound nurse, dr andrade
--- NOTE | 2017-12-27 14:59 | NURSING ---
report called to [facility] transferred per bed with belongings to room 107
--- NOTE | 2017-12-27 15:04 | CHAPLAIN ---
Type of Pastoral Visit ___ Initial Visit _x__ Follow-up Visit ___ On-call Visit ___ General Patient Visit ___ Spiritual Assessment ___ Family Conference ___ Bereavement ___ Rapid Response ___ Code Blue ___ Other (describe below) Pastoral Care Referral From _x__ Patient ___ Family ___ Nurse ___ Physician ___ Manufacturing Systems Engineer ___ Analytics Intern ___ Other (describe below) Sacrament/Intervention _x__ Active listening ___ Anointing ___ Congregation ___ Bereavement ___ Communion _x__ Joelle exploration ___ _x__ Life review _x__ Prayer ___ Reconciliation ___ Sacrament of Sick _x__ Supportive presence ___ Wedding ___ Other (describe below) Pastoral Comments patient had made request for otolaryngology surgeon visit; pt had several questions related to joelle and God; pt expresses strong joelle and is a Muslim; pt had asked permission of her business relations manager to seek vocational rehabilitation counselor with the hospital otolaryngology surgeon and that was approved; pt has strong feelings about what is happening to her; pt has questions about her life and reason for such illness; pt has spiritual and eternal concerns about her daughter; pt asks about getting answers to prayers; pt feels like she has become a burden as she is unable to do anything; discussion on what it might be that God has for her from this experience, how to live by joelle when we cannot see...
--- NOTE | 2017-12-27 15:19 | NURSING ---
wound photo: right posterior/lateral leg
--- NOTE | 2017-12-27 15:21 | NURSING ---
wound photo: right posterior thigh/gluteal crease
--- NOTE | 2017-12-27 15:22 | NURSING ---
wound photo: left medial ankle
--- NOTE | 2017-12-27 15:22 | NURSING ---
wound photo: left posterior/lateral lower leg
[2017-12-27 16:41] LABS: Bedside Glucose 158 mg/dL (70-110)
[2017-12-27 23:36] LABS: Bedside Glucose 147 mg/dL (70-110)
[2017-12-28] VITALS (12 sets, daily range): BP systolic 104–129; BP diastolic 51–70; PULSE 57–93; RESP 14–18; TEMP 36.8–37.1; O2SAT 1–97
[2017-12-28 06:05] LABS: Absolute Lymphocyte Count 1.35 X10^3/ul (0.83-4.51); Absolute Neutrophil Count 3.3 X10^3/uL (2.0-7.7); Basophil# 0.01 X10^3/uL; Basophil% 0.2 % (0-1); Eosinophil# 0.45 X10^3/uL; Eosinophils% 7.6 % (0-5); Hematocrit 25.4 % (37-47); Hemoglobin 7.7 g/dl (12.0-15.0); Lymphocyte # 1.35 X10^3/ul (4.0); Lymphocyte % 22.7 % (19-41); Mean Corp Hgb Conc 30.3 g/gl (32-36); Mean Corpuscular Hgb 28.4 pg (27.0-32.0); Mean Corpuscular Volume 93.7 fL (81-99); Mean Platelet Vol. 8.7 fl (6.2-12.0); Monocyte# 0.86 X10^3/uL; Monocyte% 14.4 % (0-10); Neutrophil # 3.29 X10^3/uL (2.7-7.7); Neutrophil % 55.1 % (47-70); Platelet Count 224 K/mm3 (150-450); RBC Distribution Width CV 19.6 % (11.6-14.6); Red Blood Count 2.71 M/mm3 (4.2-5.4)
[2017-12-28 06:07] LABS: POSITIVE COUNT NO; POSITIVE DIFFERENTIAL NO; POSITIVE MORPHOLOGY NO
[2017-12-28 06:18] LABS: International Normalized Ratio 1.7; Prothrombin Time (Protime)PT. 19.7 SECONDS (11.7-14.9)
[2017-12-28 06:37] LABS: BUN 34 mg/dL (7-18); BUN/Creat Ratio 9.1 RATIO (10-20); Calcium,Total 7.5 mg/dL (8.5-10.1); Chloride 104 mmol/L (98-107); Creatinine, Serum 3.74 mg/dL (0.55-1.02); EST Glomerular Filtration Rate 13 mL/min (>60); Est Glom Filt Rate - Afr Amer 16 mL/min (>60); Estimated Creatinine Clearance 15.16 ml/min; Glucose 101 mg/dL (74-106); Phosphorus 4.9 mg/dL (2.5-4.9); Potassium 4.5 mmol/L (3.5-5.1); Sodium Level 140 mmol/L (136-145)
[2017-12-28 06:49] LABS: Digoxin Level 1.72 ng/mL (0.80-2.00); Vancomycin, Random Level 37.3 ug/mL (0.0-15.0)
[2017-12-28 06:56] LABS: Bedside Glucose 115 mg/dL (70-110)
--- NOTE | 2017-12-28 08:29 | PCM.PROGNOTE ---
Patient Problems: Active and Suspected Problems (Last Updated 12/07/17 @ 09:05 by Thomas Carrasco MD) Acute kidney injury (Acute) Hyperkalemia (Acute) Digoxin toxicity (Acute) Vancomycin toxicity (Acute) Subjective: The patient was seen and examined. She is in some pain secondary to just having her wounds changed. She is alert and oriented, denies any shortness of breath, cough, or sputum production. She remains on 2 L of oxygen, we did take her oxygen off and she desaturated to 88%. Objective: Recent lab and culture data reviewed. Wound cultures are pending, preliminary showing gram-negative taylor. Cumulative fluid balance of +6900 mL. Urine culture preliminary is yeastlike organism. Last hemodialysis Wednesday. - Physical Exam General: Alert, Oriented x3, Cooperative, No apparent distress HEENT: Atraumatic, Normocephalic Oral: Moist Mucosa Neck: Supple, Trachea Midline, - - RIJ intact Lungs: No rhonchi, No wheeze, No rales, Diminished Cardiovascular: No murmurs, No rub noted, No Gallop, - - irregular rate/rhythm with intermittent bradycardia Abdomen: Bowel Sounds Present, Soft, Non Tender, Obese Extremities: No clubbing, No cyanosis, Edema Skin: Ulcer/ Wound - Just redressed by wound care nurse, pictures available Musculoskeletal: Tenderness - Bilateral lower extremities with palpation Lymphatic: - - No adenopathy Neurological: Cranial nerves II-XII grossly intact, Neuro grossly intact Psych/Mental Status: Alert and oriented to time, place, person, mood and affect Vital Signs Temp Pulse Resp BP Pulse Ox 98.2 F 57 L 14 124/53 H 95 12/28/17 04:19 12/28/17 06:50 12/28/17 04:19 12/28/17 04:19 12/28/17 06:58 Oxygen Flow Rate (L/min) 3 Oxygen Delivery Method Nasal Cannula Weight: 428 lb 9.258 oz Body Mass Index (BMI) 67.1 Intake and Output for Last 24 Hours 12/26/17 12/27/17 12/28/17 23:59 23:59 23:59 Intake Total 4798 / 4798 1810 / 1810 Output Total 650 / 650 650 / 650 150 / 150 Balance 4148 / 4148 1160 / 1160 -150 / -150 Microbiology Past 72 Hours 12/26/17 12:30 Urine Culture - Preliminary Urine Catheter - Dos Santos Yeast Like Organism Laboratory Tests Past 24 Hrs 12/28/17 12/28/17 12/28/17 05:40 05:40 05:40 WBC 6.0 RBC 2.71 L Hgb 7.7 L Hct 25.4 L MCV 93.7 MCH 28.4 MCHC 30.3 L RDW 19.6 H RDW Differential 65.0 H Plt Count 224 MPV 8.7 Immature Gran % (Auto) 0.000 Neut % (Auto) 55.1 Lymph % (Auto) 22.7 [place] % (Auto) 14.4 H Eos % (Auto) 7.6 H Baso % (Auto) 0.2 Absolute Neuts (auto) 3.3 Absolute Lymphs (auto) 1.35 Total Counted Not Reportable PT 19.7 H INR 1.7 Sodium Potassium Chloride Carbon Dioxide BUN Creatinine Estim Creat Clear Calc Est GFR (MDRD) Af Amer Est GFR (MDRD) Non-Af BUN/Creatinine Ratio Glucose Calcium Phosphorus Albumin Random Vancomycin 37.3 H Digoxin 1.72 12/28/17 05:40 WBC RBC Hgb Hct MCV MCH MCHC RDW RDW Differential Plt Count MPV Immature Gran % (Auto) Neut % (Auto) Lymph % (Auto) [place] % (Auto) Eos % (Auto) Baso % (Auto) Absolute Neuts (auto) Absolute Lymphs (auto) Total Counted PT INR Sodium 140 Potassium 4.5 Chloride 104 Carbon Dioxide 28.0 BUN 34 H Creatinine 3.74 H Estim Creat Clear Calc 15.16 Est GFR (MDRD) Af Amer 16 L Est GFR (MDRD) Non-Af 13 L BUN/Creatinine Ratio 9.1 L Glucose 101 Calcium 7.5 L Phosphorus 4.9 Albumin 2.0 L Random Vancomycin Digoxin POC Glucose 12/28/17 12/27/17 12/27/17 06:50 22:31 16:23 POC Glucose 115 H 147 H 158 H 12/27/17 11:51 POC Glucose 140 H Medical Necessity - Tobacco Use Smoking Status: Former smoker Assessment/Plan Active and Suspected Problems (Last Updated 12/07/17 @ 09:05 by Thomas Carrasco MD) Acute kidney injury (Acute) Hyperkalemia (Acute) Digoxin toxicity (Acute) Vancomycin toxicity (Acute) RECOMMENDATIONS: 1. Okay from my perspective to restart Coumadin 2. Continue hemodialysis per nephrology recommendations 3. Continue nocturnal BiPAP therapy as tolerated 4. Wean supplemental oxygen as tolerated 5. Encourage incentive spirometer use IMPRESSIONS: 1. Sinus bradycardia Improved at this time, flipping in and out of atrial fibrillation. Multifactorial etiology of sinus bradycardia including elevated potassium and digoxin in the setting of acute kidney injury. 2. Acute renal failure secondary to drug toxicity She does have a history of congestive heart failure and is on Lasix therapy at baseline. Nephrology is following with ongoing hemodialysis per their recommendations. 3. Acute on chronic diastolic congestive heart failure Patient has been treated with Lasix in the past. Patient does have increased alveolar infiltrates noted on chest x-ray. Patient has been weaned to 2 L nasal cannula. Continue hemodialysis per nephrology recommendations. IV fluids have been discontinued. 4. History of chronic atrial fibrillation/hypertension/heart failure/pulmonary hypertension Coumadin was restarted. Diuretics continue to be held. 5. Diabetes type II/hypoglycemia Continue sliding scale insulin coverage and Accu-Cheks. 6. Super morbid obesity/depression/neuropathy/lower extremity wounds/obstructive sleep apnea Complicates care, management, recovery and prognosis. Continue local wound care. Continue nocturnal BiPAP therapy as ordered. This note was generated with [employer] dictation software. It may contain incorrect words, spelling, and punctuation that were not noted in checking the note before signing.
[2017-12-28] MEDS: Citalopram 20 MG Tablet PO (09:00)
[2017-12-28] MEDS: Famotidine 20 MG Tablet PO (09:00)
[2017-12-28] MEDS: Glucerna Shake 120 ML LIQUID PO ×3 (09:01→21:20)
--- NOTE | 2017-12-28 09:21 | PN.RENAL_ITS ---
Patient Problems: Active and Suspected Problems (Last Updated 12/07/17 @ 09:05 by Thomas Carrasco MD) Acute kidney injury (Acute) Hyperkalemia (Acute) Digoxin toxicity (Acute) Vancomycin toxicity (Acute) Subjective: denies SOB, nausea, vomiting. Appetite good. Still with tremors/twitching. Bradycardia improved. - Physical Exam General: Alert, Oriented x3, Cooperative, No apparent distress Lungs: Diminished Cardiovascular: Irregular Rate - irregular Abdomen: Bowel Sounds Present, Soft, Non Tender, Non-Distended, Obese Extremities: Edema Psych/Mental Status: Normal Affect, Appropriate, Alert and oriented to time, place, person, mood and affect Vital Signs Temp Pulse Resp BP Pulse Ox 98.2 F 92 18 129/51 H 97 12/28/17 09:00 12/28/17 09:00 12/28/17 09:00 12/28/17 09:00 12/28/17 09:00 Oxygen Flow Rate (L/min) 2 Oxygen Delivery Method Nasal Cannula Weight: 194.4 kg Body Mass Index (BMI) 67.1 Intake and Output for Last 24 Hours 12/26/17 12/27/17 12/28/17 23:59 23:59 23:59 Intake Total 4798 / 4798 1810 / 1810 Output Total 650 / 650 650 / 650 150 / 150 Balance 4148 / 4148 1160 / 1160 -150 / -150 Microbiology Past 72 Hours 12/26/17 12:30 Urine Culture - Preliminary Urine Catheter - Dos Santos Yeast Like Organism Laboratory Tests Past 24 Hrs 12/28/17 12/28/17 12/28/17 05:40 05:40 05:40 WBC 6.0 RBC 2.71 L Hgb 7.7 L Hct 25.4 L MCV 93.7 MCH 28.4 MCHC 30.3 L RDW 19.6 H RDW Differential 65.0 H Plt Count 224 MPV 8.7 Immature Gran % (Auto) 0.000 Neut % (Auto) 55.1 Lymph % (Auto) 22.7 [place] % (Auto) 14.4 H Eos % (Auto) 7.6 H Baso % (Auto) 0.2 Absolute Neuts (auto) 3.3 Absolute Lymphs (auto) 1.35 Total Counted Not Reportable PT 19.7 H INR 1.7 Sodium Potassium Chloride Carbon Dioxide BUN Creatinine Estim Creat Clear Calc Est GFR (MDRD) Af Amer Est GFR (MDRD) Non-Af BUN/Creatinine Ratio Glucose Calcium Phosphorus Albumin Random Vancomycin 37.3 H Digoxin 1.72 12/28/17 05:40 WBC RBC Hgb Hct MCV MCH MCHC RDW RDW Differential Plt Count MPV Immature Gran % (Auto) Neut % (Auto) Lymph % (Auto) [place] % (Auto) Eos % (Auto) Baso % (Auto) Absolute Neuts (auto) Absolute Lymphs (auto) Total Counted PT INR Sodium 140 Potassium 4.5 Chloride 104 Carbon Dioxide 28.0 BUN 34 H Creatinine 3.74 H Estim Creat Clear Calc 15.16 Est GFR (MDRD) Af Amer 16 L Est GFR (MDRD) Non-Af 13 L BUN/Creatinine Ratio 9.1 L Glucose 101 Calcium 7.5 L Phosphorus 4.9 Albumin 2.0 L Random Vancomycin Digoxin POC Glucose 12/28/17 12/27/17 12/27/17 06:50 22:31 16:23 POC Glucose 115 H 147 H 158 H 12/27/17 11:51 POC Glucose 140 H Medical Necessity - Tobacco Use Smoking Status: Former smoker Assessment/Plan Active and Suspected Problems (Last Updated 12/07/17 @ 09:05 by Thomas Carrasco MD) Acute kidney injury (Acute) Hyperkalemia (Acute) Digoxin toxicity (Acute) Vancomycin toxicity (Acute) 1. Acute kidney injury. creatinine slightly improved to 3.7. Hold dialysis today. No uremic symptoms. Last dialysis Wednesday. Baseline creatinine 0.9 2. Bradycardia resolved 3. Metabolic encephalopathy resolved 4. Hyperkalemia resolved with dialysis 5. Vancomycin toxicity level improved with dialysis 6. MRSA leg wound. Continue wound care 7. Diabetes mellitus type 2. primary care mgmt 8. Hypertension stable 9. Super morbid obesity with debilitation 10. chronic atrial fibrillation on anticoagulation 11 Severe protein calorie malnutrition. continue supplements 12. Anemia with hgb 7.7g
--- NOTE | 2017-12-28 10:03 | CASEMGMT ---
Received a call from Lauren in TCU and they are not able to accommodate patient due to her weight exceeding what they can manage. SW to follow. Chantell STARR MSW
[2017-12-28] MEDS: oxyCODONE 5 MG Tablet PO ×2 (10:06→21:20)
[2017-12-28 11:31] LABS: Bedside Glucose 173 mg/dL (70-110)
--- NOTE | 2017-12-28 13:41 | CASEMGMT ---
Per Hui, wound care nurse, pt is going to need an LTACH at discharge due to severity of wounds. Pt also was already sent to a SNF and came back as readmission. Pt agrees to LTACH at this time and states would like to go to the [facility], if able. This RN CM placed call to Felicita at [facility] and she states that the [place] [facility] was closed. She states that [place] should actually be closer for pt's family from [place] and it is by a few minutes. Pt updated at this time and agrees to go to [facility] at this time. Per Felicita, she is on the way to the hospital at this time and will pickle sorter referral when arrives, pt aware and voices understanding. Per Felicita, pt will need precert. Text sent to Dr. Eddy to update on all. Mary Kay HERNANDEZ CM
--- NOTE | 2017-12-28 13:59 | CASEMGMT ---
La Hollins-celso's nurse case manager at [facility] [place], Phone #: [phone]. Mary Kay HERNANDEZ CM
--- NOTE | 2017-12-28 14:45 | CASEMGMT ---
Felicita from [facility] here to assess pt and chart for LTACH at this time. SStbal HERNANDEZ CM
[2017-12-28 16:56] LABS: Bedside Glucose 160 mg/dL (70-110)
--- NOTE | 2017-12-28 19:17 | PN_ITS ---
Patient Problems: Active and Suspected Problems (Last Updated 12/07/17 @ 09:05 by Thomas Carrasco MD) Acute kidney injury (Acute) Hyperkalemia (Acute) Digoxin toxicity (Acute) Vancomycin toxicity (Acute) Subjective: Afebrile, vital signs stable. She is 94% saturated on a 1 L nasal cannula. She was sleeping when I entered her room and she is somewhat difficult to arouse. She was appropriate and alert after waking up. Fluid balance since admission is +6994 cc. So far today she has had 850 cc of urine. Creatinine today is 3.74, down from 3.91 on 12/27/2017. She had 2 dialysis sessions while in the hospital and the last dialysis was on 12/25/2017. I reviewed Dr. Romero's note and there is no plan for dialysis today. The wound was cultured yesterday and the preliminary is a gram-negative taylor. There was a greenish discoloration and odor to the discharge and this is likely going to be Pseudomonas. Hemoglobin is stable at 7.7 and the white blood cell count is normal. Dig level today is 1.72 and the random vancomycin level was 37.3. Blood sugars are controlled. INR today is 1.7 but Coumadin was held for several days and was just restarted on 12/27/2017. Objective: - Physical Exam General: Alert, Oriented x3, Cooperative, No apparent distress HEENT: Atraumatic, PERRLA, EOMI, Normocephalic Oral: Moist Mucosa Neck: Carotid Bruit, Left - could not evaluate the right due to the presence of the RIJ Lungs: Clear to auscultation - anterior, No wheeze Cardiovascular: Irregular Rate - AF...rate controlled. No rub and no gallop Abdomen: Bowel Sounds Present, Soft, Non Tender, Non-Distended, Obese, - - denies diarrhea or constipation Extremities: No clubbing, No cyanosis, Edema Skin: No rashes, Neurological: Cranial nerves II-XII grossly intact, Neuro grossly intact Psych/Mental Status: Normal Affect, Appropriate - Physical Exam Vital Signs Temp Pulse Resp BP Pulse Ox 98.8 F 74 18 104/54 L 94 12/28/17 15:00 12/28/17 15:00 12/28/17 15:00 12/28/17 15:00 12/28/17 15:00 Oxygen Flow Rate (L/min) 1 Oxygen Delivery Method Nasal Cannula Weight: 428 lb 9.258 oz Body Mass Index (BMI) 67.1 Intake and Output for Last 24 Hours 12/26/17 12/27/17 12/28/17 23:59 23:59 23:59 Intake Total 4798 / 4798 1810 / 1810 940 / 940 Output Total 650 / 650 650 / 650 850 / 850 Balance 4148 / 4148 1160 / 1160 90 / 90 Microbiology Past 72 Hours 12/26/17 12:30 Urine Culture - Final Urine Catheter - Dos Santos Yeast, not Lorena albicans 12/27/17 14:30 Gram Stain - Final Wound - Leg, Right Wound Culture - Preliminary Gram negative taylor Laboratory Tests Past 24 Hrs 12/28/17 12/28/17 12/28/17 05:40 05:40 05:40 WBC 6.0 RBC 2.71 L Hgb 7.7 L Hct 25.4 L MCV 93.7 MCH 28.4 MCHC 30.3 L RDW 19.6 H RDW Differential 65.0 H Plt Count 224 MPV 8.7 Immature Gran % (Auto) 0.000 Neut % (Auto) 55.1 Lymph % (Auto) 22.7 [place] % (Auto) 14.4 H Eos % (Auto) 7.6 H Baso % (Auto) 0.2 Absolute Neuts (auto) 3.3 Absolute Lymphs (auto) 1.35 Total Counted Not Reportable PT 19.7 H INR 1.7 Sodium Potassium Chloride Carbon Dioxide BUN Creatinine Estim Creat Clear Calc Est GFR (MDRD) Af Amer Est GFR (MDRD) Non-Af BUN/Creatinine Ratio Glucose Calcium Phosphorus Albumin Random Vancomycin 37.3 H Digoxin 1.72 12/28/17 05:40 WBC RBC Hgb Hct MCV MCH MCHC RDW RDW Differential Plt Count MPV Immature Gran % (Auto) Neut % (Auto) Lymph % (Auto) [place] % (Auto) Eos % (Auto) Baso % (Auto) Absolute Neuts (auto) Absolute Lymphs (auto) Total Counted PT INR Sodium 140 Potassium 4.5 Chloride 104 Carbon Dioxide 28.0 BUN 34 H Creatinine 3.74 H Estim Creat Clear Calc 15.16 Est GFR (MDRD) Af Amer 16 L Est GFR (MDRD) Non-Af 13 L BUN/Creatinine Ratio 9.1 L Glucose 101 Calcium 7.5 L Phosphorus 4.9 Albumin 2.0 L Random Vancomycin Digoxin POC Glucose 12/28/17 12/28/17 12/28/17 16:53 11:24 06:50 POC Glucose 160 H 173 H 115 H 12/27/17 22:31 POC Glucose 147 H Medical Necessity - Tobacco Use Smoking Status: Former smoker Assessment/Plan Active and Suspected Problems (Last Updated 12/07/17 @ 09:05 by Thomas Carrasco MD) Acute kidney injury (Acute) Hyperkalemia (Acute) Digoxin toxicity (Acute) Vancomycin toxicity (Acute) Impressions 1. Acute kidney injury with oliguria - has had HD X 2...the last HD was 12/25 2. severe bradycardia - due to digoxin toxicity - resolved. 3. Vancomycin toxicity 4. Chronic atrial fibrillation 5. Super obesity 6. Chronic anticoagulation with warfarin 7. Anxiety/depression - anxiety exacerbated by acute SSRI withdrawal 8. Obstructive sleep apnea-noncompliant with CPAP 9. Diabetes mellitus type 2 - uncontrolled, HGBA1C on 12/08 was 11.3%. BS's in the hospital are controlled on an appropriate diet 10. MRSA cellulitis of the lower extremities with recent extensive debridement on admission in November 2017 11. Pulmonary hypertension 12. Heart murmur 13. Left carotid bruit-unable to assess the right carotid secondary to presence of right IJ 14. Digoxin toxicity 15. Iron deficiency anemia 16. GM neg taylor from the wound......there is a greenish DC with an odor but she is afebrile and has a normal WBC and diff...I suspect the wound is superficially colonized with Pseudomonas and this can be treated topically with 1/4% acetic acide W-D dressings for 48-72 hours. Continue the current treatment No IV or oral antibiotics at this time, await the final wound culture results she is being evaluated for an LTAC transfer Start an iron supplement recheck the lab in the AM Code Visit Inpatient E&M: 08515 Subs Hosp L2
[2017-12-28] MEDS: LORazepam 0.5 MG Tablet PO (21:19)
[2017-12-28 22:10] LABS: Bedside Glucose 179 mg/dL (70-110)
[2017-12-29] VITALS (13 sets, daily range): BP systolic 115–139; BP diastolic 42–80; PULSE 56–93; RESP 14–20; TEMP 36.8–37.1; O2SAT 93–96
[2017-12-29] MEDS: 0.9% NaCl PICC Flush IV (04:20)
[2017-12-29 04:40] LABS: Absolute Lymphocyte Count 1.15 X10^3/ul (0.83-4.51); Absolute Neutrophil Count 3.3 X10^3/uL (2.0-7.7); Basophil# 0.02 X10^3/uL; Basophil% 0.4 % (0-1); Differential Indicated SCAN CRITERIA MET; Eosinophil# 0.41 X10^3/uL; Eosinophils% 7.2 % (0-5); Hemoglobin 7.9 g/dl (12.0-15.0); Lymphocyte # 1.15 X10^3/ul (4.0); Lymphocyte % 20.3 % (19-41); Mean Corp Hgb Conc 30.4 g/gl (32-36); Mean Corpuscular Hgb 29.5 pg (27.0-32.0); Mean Platelet Vol. 9.1 fl (6.2-12.0); Monocyte# 0.78 X10^3/uL; Monocyte% 13.8 % (0-10); Neutrophil # 3.28 X10^3/uL (2.7-7.7); Neutrophil % 57.9 % (47-70); POSITIVE COUNT NO; POSITIVE DIFFERENTIAL NO; POSITIVE MORPHOLOGY YES; Platelet Count 242 K/mm3 (150-450); RBC Distribution Width CV 19.3 % (11.6-14.6); RBC Distribution Width SD 65.3 fl (35.1-43.9); Red Blood Count 2.68 M/mm3 (4.2-5.4); White Blood Count 5.7 K/mm3 (4.4-11.0)
[2017-12-29 04:41] LABS: International Normalized Ratio 1.5; Prothrombin Time (Protime)PT. 18.2 SECONDS (11.7-14.9)
[2017-12-29 04:44] LABS: BUN 35 mg/dL (7-18); BUN/Creat Ratio 10.3 RATIO (10-20); Calcium,Total 7.9 mg/dL (8.5-10.1); Chloride 103 mmol/L (98-107); EST Glomerular Filtration Rate 15 mL/min (>60); Est Glom Filt Rate - Afr Amer 18 mL/min (>60); Estimated Creatinine Clearance 16.68 ml/min; Glucose 127 mg/dL (74-106); Phosphorus 4.4 mg/dL (2.5-4.9); Potassium 4.4 mmol/L (3.5-5.1); Sodium Level 140 mmol/L (136-145)
[2017-12-29 05:25] LABS: Anisocytosis 1+; Differential Comment SCAN; Hypochromasia 1+; Microcytosis 1+; Polychromasia 1+
[2017-12-29 09:21] LABS: Bedside Glucose 130 mg/dL (70-110)
[2017-12-29] MEDS: Citalopram 20 MG Tablet PO (09:32)
[2017-12-29] MEDS: Ferrous Gluconate 325 MG Tablet PO (09:32)
[2017-12-29] MEDS: Famotidine 20 MG Tablet PO (09:32)
[2017-12-29] MEDS: Ascorbic Acid 500 MG Tablet PO (09:33)
[2017-12-29] MEDS: Glucerna Shake 120 ML LIQUID PO ×2 (09:33→13:51)
[2017-12-29] MEDS: oxyCODONE 5 MG Tablet PO (09:48)
[2017-12-29] MEDS: LORazepam 0.5 MG Tablet PO ×2 (09:48→16:43)
--- NOTE | 2017-12-29 10:06 | PN_ITS ---
Patient Problems: Active and Suspected Problems (Last Updated 12/07/17 @ 09:05 by Thomas Carrasco MD) Acute kidney injury (Acute) Hyperkalemia (Acute) Digoxin toxicity (Acute) Vancomycin toxicity (Acute) Subjective: The patient was seen and examined. She is in better spirits today, is accepting of possibility of going to an LTAC. Denies any shortness of breath or pain at this time. Does complain of orthopnea. Maintaining appropriate saturations on 2 L of oxygen supplementation. Objective: Recent lab and culture data reviewed. Wound cultures are pending, preliminary showing 2+ gram-negative rods. Cumulative fluid balance of +6.3 L and weight up accordingly. Urine culture growing yeast, not Lorena albicans. Last hemodialysis Wednesday. - Physical Exam General: Alert, Oriented x3, Cooperative, No apparent distress, - - Morbidly obese HEENT: Atraumatic, PERRLA, Normocephalic Oral: Moist Mucosa, No Gingival or Mucosal Lesions/ Ulcerations Neck: Supple, Trachea Midline Lungs: No rhonchi, No wheeze, No rales, Diminished Cardiovascular: Normal S1, Normal S2, No murmurs, Irregular Rate, No rub noted, No Gallop Abdomen: Bowel Sounds Present, Soft, Non Tender, Obese Extremities: No clubbing, No cyanosis, Edema - 1-2+ pitting bilat LEs Skin: - - unchanged from previous Lymphatic: - - no adenopathy Neurological: Neuro grossly intact Psych/Mental Status: Alert and oriented to time, place, person, mood and affect Vital Signs Temp Pulse Resp BP Pulse Ox 98.5 F 90 18 134/60 H 93 12/29/17 09:29 12/29/17 09:29 12/29/17 09:29 12/29/17 09:29 12/29/17 09:29 Oxygen Flow Rate (L/min) 2 Oxygen Delivery Method Nasal Cannula Weight: 427 lb 0.566 oz Body Mass Index (BMI) 67.1 Intake and Output for Last 24 Hours 12/27/17 12/28/17 12/29/17 23:59 23:59 23:59 Intake Total 1810 / 1810 1180 / 1180 120 / 120 Output Total 650 / 650 1375 / 1375 450 / 450 Balance 1160 / 1160 -195 / -195 -330 / -330 Microbiology Past 72 Hours 12/27/17 14:30 Gram Stain - Final Wound - Leg, Right Wound Culture - Preliminary Gram negative taylor 12/26/17 12:30 Urine Culture - Final Urine Catheter - Dos Santos Yeast, not Lorena albicans Laboratory Tests Past 24 Hrs 12/29/17 12/29/17 12/29/17 04:15 04:15 04:15 WBC 5.7 RBC 2.68 L Hgb 7.9 L Hct 26.0 L MCV 97.0 MCH 29.5 MCHC 30.4 L RDW 19.3 H RDW Differential 65.3 H Plt Count 242 MPV 9.1 Immature Gran % (Auto) 0.400 Neut % (Auto) 57.9 Lymph % (Auto) 20.3 [place] % (Auto) 13.8 H Eos % (Auto) 7.2 H Baso % (Auto) 0.4 Absolute Neuts (auto) 3.3 Absolute Lymphs (auto) 1.15 Total Counted Not Reportable Differential Comment SCAN Polychromasia 1+ Hypochromasia 1+ Anisocytosis 1+ Microcytosis 1+ PT 18.2 H INR 1.5 Sodium 140 Potassium 4.4 Chloride 103 Carbon Dioxide 31.0 BUN 35 H Creatinine 3.40 H Estim Creat Clear Calc 16.68 Est GFR (MDRD) Af Amer 18 L Est GFR (MDRD) Non-Af 15 L BUN/Creatinine Ratio 10.3 Glucose 127 H Calcium 7.9 L Phosphorus 4.4 Albumin 2.0 L POC Glucose 12/29/17 12/28/17 12/28/17 06:42 21:18 16:53 POC Glucose 130 H 179 H 160 H 12/28/17 11:24 POC Glucose 173 H Medical Necessity - Tobacco Use Smoking Status: Former smoker Assessment/Plan Active and Suspected Problems (Last Updated 12/07/17 @ 09:05 by Thomas Carrasco MD) Acute kidney injury (Acute) Hyperkalemia (Acute) Digoxin toxicity (Acute) Vancomycin toxicity (Acute) RECOMMENDATIONS: 1. Continue hemodialysis per nephrology recommendations 2. Continue nocturnal BiPAP therapy as tolerated 3. Wean supplemental oxygen as tolerated to keep saturations >90% 4. Encourage incentive spirometer use 5. Volume optimization, may want to consider diuresis 6. Continue wound care IMPRESSIONS: 1. Sinus bradycardia Resolved. Flipping in and out of atrial fibrillation. Multifactorial etiology of sinus bradycardia including elevated potassium and digoxin in the setting of acute kidney injury. 2. Acute renal failure secondary to drug toxicity Improved. She does have a history of congestive heart failure and is on Lasix therapy at baseline. Nephrology is following with ongoing hemodialysis per their recommendations. Last dialysis 12/25/17. 3. Acute on chronic diastolic congestive heart failure Patient has been treated with Lasix in the past. Patient does have increased alveolar infiltrates noted on chest x-ray. Patient has been weaned to 2 L nasal cannula. Continue hemodialysis per nephrology recommendations. IV fluids have been discontinued. She has lower extremity edema that appears to be worse today. Complains of orthopnea. May want to consider diuresis. 4. History of chronic atrial fibrillation/hypertension/heart failure/pulmonary hypertension Coumadin was restarted. Diuretics continue to be held. 5. Diabetes type II/hypoglycemia Continue sliding scale insulin coverage and Accu-Cheks. 6. Super morbid obesity/depression/neuropathy/lower extremity wounds/ obstructive sleep apnea Complicates care, management, recovery and prognosis. Continue local wound care. Continue nocturnal BiPAP therapy as ordered. This note was generated with [employer] dictation software. It may contain incorrect words, spelling, and punctuation that were not noted in checking the note before signing.
--- NOTE | 2017-12-29 10:30 | CASEMGMT ---
Call placed to Felicita at [facility] per her request after message left. Per Felicita, pt has been approved by insurance for LTACH at this time. Dr. Eddy made aware via page at this time. Per Felicita, they would like orders faxed as soon as they are obtained and they request that pt not be transported until about 2 hours after orders faxed. Phone for nurse to nurse report is [phone] to Juan Jose Herring and Eulalia HERNANDEZ aware at this time. Call to [facility] for bariatric transfer and set up for 1600 today. Pt updated at this time and voices understanding, as well as route inspector, who will write orders for dressing changes and wound vac. This RN CM will fax orders once obtained. Mary Kay RN CM
--- NOTE | 2017-12-29 12:08 | DIALYSIS ---
RIJ dialysis CVC removed per ordered and per [facility] policy. Pt was concerned about breathing laying flat therefore 02 increased to 3.5L while supine. Pt tolerated well. There is no s/s of bleeding post removal. Bedside handoff with Eulalia HERNANDEZ and post monitoring instructions provided.
[2017-12-29 12:26] LABS: Bedside Glucose 157 mg/dL (70-110)
--- NOTE | 2017-12-29 13:12 | PN.RENAL_ITS ---
Patient Problems: Active and Suspected Problems (Last Updated 12/07/17 @ 09:05 by Thomas Carrasco MD) Acute kidney injury (Acute) Hyperkalemia (Acute) Digoxin toxicity (Acute) Vancomycin toxicity (Acute) Subjective: doing well, breathing stable. Urine output improving with creatinine improved to 3.4 today. Plan for discharge to LTAC - Physical Exam General: Alert, Oriented x3, Cooperative, No apparent distress Lungs: Clear to auscultation Cardiovascular: Irregular Rate Abdomen: Bowel Sounds Present, Soft, Non Tender, Non-Distended, Obese Extremities: Edema - stable Vital Signs Temp Pulse Resp BP Pulse Ox 98.3 F 56 L 18 132/51 H 94 12/29/17 13:03 12/29/17 13:03 12/29/17 13:03 12/29/17 13:03 12/29/17 13:03 Oxygen Flow Rate (L/min) 2 Oxygen Delivery Method Nasal Cannula Weight: 193.7 kg Body Mass Index (BMI) 67.1 Intake and Output for Last 24 Hours 12/27/17 12/28/17 12/29/17 23:59 23:59 23:59 Intake Total 1810 / 1810 1180 / 1180 520 / 520 Output Total 650 / 650 1375 / 1375 1000 / 1000 Balance 1160 / 1160 -195 / -195 -480 / -480 Microbiology Past 72 Hours 12/27/17 14:30 Gram Stain - Final Wound - Leg, Right Wound Culture - Preliminary Gram negative taylor 12/26/17 12:30 Urine Culture - Final Urine Catheter - Dos Santos Yeast, not Lorena albicans Laboratory Tests Past 24 Hrs 12/29/17 12/29/17 12/29/17 04:15 04:15 04:15 WBC 5.7 RBC 2.68 L Hgb 7.9 L Hct 26.0 L MCV 97.0 MCH 29.5 MCHC 30.4 L RDW 19.3 H RDW Differential 65.3 H Plt Count 242 MPV 9.1 Immature Gran % (Auto) 0.400 Neut % (Auto) 57.9 Lymph % (Auto) 20.3 Mcdonough % (Auto) 13.8 H Eos % (Auto) 7.2 H Baso % (Auto) 0.4 Absolute Neuts (auto) 3.3 Absolute Lymphs (auto) 1.15 Total Counted Not Reportable Differential Comment SCAN Polychromasia 1+ Hypochromasia 1+ Anisocytosis 1+ Microcytosis 1+ PT 18.2 H INR 1.5 Sodium 140 Potassium 4.4 Chloride 103 Carbon Dioxide 31.0 BUN 35 H Creatinine 3.40 H Estim Creat Clear Calc 16.68 Est GFR (MDRD) Af Amer 18 L Est GFR (MDRD) Non-Af 15 L BUN/Creatinine Ratio 10.3 Glucose 127 H Calcium 7.9 L Phosphorus 4.4 Albumin 2.0 L POC Glucose 12/29/17 12/29/17 12/28/17 12:15 06:42 21:18 POC Glucose 157 H 130 H 179 H 12/28/17 16:53 POC Glucose 160 H Medical Necessity - Tobacco Use Smoking Status: Former smoker Assessment/Plan Active and Suspected Problems (Last Updated 12/07/17 @ 09:05 by Thomas Carrasco MD) Acute kidney injury (Acute) Hyperkalemia (Acute) Digoxin toxicity (Acute) Vancomycin toxicity (Acute) 1. Acute kidney injury. creatinine slightly improved to 3.4 today. Hold dialysis today. DC temp dialysis catheter. Pt appears to be regaining renal fxn. No uremic symptoms. Last dialysis Wednesday. Baseline creatinine 0.9 2. Bradycardia resolved 3. Metabolic encephalopathy resolved 4. Hyperkalemia resolved with dialysis 5. Vancomycin toxicity level improved with dialysis 6. MRSA leg wound. Continue wound care 7. Diabetes mellitus type 2. primary care mgmt 8. Hypertension stable 9. Super morbid obesity with debilitation 10. chronic atrial fibrillation on anticoagulation 11 Severe protein calorie malnutrition. continue supplements 12. Anemia with hgb 7.9g today
--- NOTE | 2017-12-29 13:20 | CASEMGMT ---
Dr. Eddy states she is on the way down write orders for pt at this time. Felicita from [facility] updated on 1600 fruit picker time and that orders will be sent as soon as obtained, voices understanding. Per Felicita, pt will go to room 687 bed 2 at [facility]. Report called by Eulalia HERNANDEZ at this time and per [facility] RN, he would like orders to be faxed to [phone] when obtained. Mary Kay HERNANDEZ CM
--- NOTE | 2017-12-29 13:25 | NURSING ---
CALLED REPORT TO [facility]
--- NOTE | 2017-12-29 13:50 | PCM.TXEXTCAR ---
- Diet 12/24/17 15:12 Diet: Cardiac: Calorie-Controlled How many daily calories?: 1800 calorie - Routine Orders/Code Status Enema Type: Fleetz Enema Frequency: Daily PRN Suppository Type: Dulcolax 10mg Suppository Frequency: Daily PRN O2 Frequency: Continuous Keep PO Greater than or Equal to (%): 2 Routine Lab Work: - - BMP, HH, phos in 3 days PT/INR daily until the INR is consistently between 2.2-3. - Wound(s) R leg Wound Type: Pressure Injury L leg Wound Type: Pressure Injury right upper buttocks Wound Type: Pressure Injury right lateral ankle Wound Type: nonhealing wound s/p I&D Dressing Change: Dakins moistened gauze right posterior upper thigh/gluteal crease Wound Type: nonhealing wound s/p I&D Dressing Change: Dakins moistened gauze right posterior lower leg Wound Type: nonhealing wounds s/p I&D Dressing Change: Dakins moistened gauze left posterior/lateral lower leg Wound Type: nonhealing wounds s/p I&D Dressing Change: Dakins moistened gauze left medial ankle Wound Type: nonhealing wound s/p I&D Dressing Change: Dakins moistened gauze left great toe Wound Type: Abrasion - Therapies Physical Therapy: Eval and Treat Occupational Therapy: Eval and Treat - Problem/Diagnosis (1) Acute kidney injury Status: Acute Current Visit: Yes (2) Digoxin toxicity Status: Acute Current Visit: Yes (3) Hyperkalemia Status: Acute Current Visit: Yes (4) Vancomycin toxicity Status: Acute Current Visit: Yes (5) Abscess of left lower extremity Status: Resolved Comment: nonhealing infected MRSA diabetic ulcer abscess left posterior leg Current Visit: No (6) Abscess of right lower extremity Status: Resolved Comment: nonhealing infected MRSA diabetic ulcer abscess right posterior leg nonhealing infected MRSA diabetic ulcer abscess right posterior thigh Current Visit: No (7) Cellulitis of leg, right Status: Resolved Current Visit: No (8) Chronic atrial fibrillation Status: Chronic Current Visit: No (9) Diabetes with ulcer of lower extremity Status: Resolved Comment: nonhealing infected MRSA diabetic ulcers bilateral posterior legs Current Visit: No (10) Hypertension Status: Chronic Current Visit: No (11) Methicillin resistant Staphylococcus aureus infection Status: Resolved Current Visit: No (12) Morbid obesity Status: Chronic Current Visit: No (13) Pulmonary hypertension Status: Chronic Current Visit: No (14) Type 2 diabetes mellitus Status: Chronic Current Visit: No (15) Acute on chronic congestive heart failure Status: Resolved Current Visit: No (16) Bradycardia Status: Resolved Comment: Due to digoxin toxicity Current Visit: Yes (17) Iron deficiency anemia, unspecified Status: Chronic Current Visit: Yes (18) Sleep apnea Status: Chronic Current Visit: Yes (19) Poor compliance with CPAP treatment Status: Chronic Current Visit: Yes (20) Biatrial enlargement Status: Chronic Current Visit: Yes (21) Non-healing wound Status: Chronic Current Visit: Yes (22) Chronic anticoagulation Status: Chronic Current Visit: Yes (23) Acute on chronic diastolic (congestive) heart failure Status: Ruled-out Current Visit: Yes (24) Diastolic CHF, chronic Status: Chronic Current Visit: Yes (25) Metabolic encephalopathy Status: Acute Current Visit: Yes - Allergies/Procedures Done in Hospital Allergies/Adverse Reactions: Allergies latex Allergy (Verified 03/26/15 11:04) Itching pentazocine lactate [From Talwin] Allergy (Verified 03/26/15 11:04) Itching phenobarbital Allergy (Verified 03/26/15 11:04) Itching tree nut Allergy (Verified 03/26/15 11:04) Anaphylaxis codeine Adverse Reaction (Verified 03/26/15 11:04) Upset Stomach - Type of Care/Length of Stay Estimated LOS: More Than 30 Days Type of Care Needed: LTAC Rehab Potential: Good Prognosis: Good - Additional Orders/Day of Discharge Additional Orders: Citalopram recently discontinued. She is to start on Effexor XR 75 mg daily on Wednesday 01/03. Please give pain medication 1 hour prior to dressing changes and wound vac changes. She has not required any insulin in the hospital....the Blood sugars have all been less than 200 on diet alone. She is in AF chronically......rate controlled on no meds at present and when she is sleeping she is still getting bradycardic in the 40's. The dig level on 12/28 was still 1.72. When the dig level decreases may need to restart the cardizem of the Nadolol for rate control. H&P will serve as current which was dated: 12/24/17 Day of Discharge: 12/29/17 - Dietary and Speech Recommendations Dietitian Recommendations/Changes: Rec diet change to 2000 miguel ángel Cardiac low sodium w/ fluid restriction as indicated. May benefit from 1 packet Josafat BID for wound healing. - Follow Up Care Primary Care Physician: Rajesh Reynolds MD [Primary Care Provider] - Please follow up with your Primary Care Physician in: following DC from LTAC
--- NOTE | 2017-12-29 14:41 | CASEMGMT ---
MEÑO called Joelle at [facility] and let her know patient is going to an LTACH. She thanked MEÑO for the information. Chantell STARR MSW
--- NOTE | 2017-12-29 15:53 | CHAPLAIN ---
Type of Pastoral Visit ___ Initial Visit _x__ Follow-up Visit ___ On-call Visit ___ General Patient Visit ___ Spiritual Assessment ___ Family Conference ___ Bereavement ___ Rapid Response ___ Code Blue ___ Other (describe below) Pastoral Care Referral From _x__ Patient ___ Family ___ Nurse ___ Physician ___ Forensics Team Director ___ [place] ___ Other (describe below) Sacrament/Intervention _x__ Active listening ___ Anointing ___ Hoahaoism ___ Bereavement ___ Communion _x__ Joelle exploration ___ ___ Life review _x__ Prayer ___ Reconciliation ___ Sacrament of Sick _x__ Supportive presence ___ Wedding ___ Other (describe below) Pastoral Comments patient has had and continues to express some anxiety and spiritual distress; pt is going to be transferred and had questions about spiritual support in the next location; pt expressed that she could see now how God is sending some messages to her to remind her she is not forgotten;
--- NOTE | 2017-12-30 06:22 | PCM.DC.SUM ---
Discharge Date and Diagnosis Date of Admission: 12/24/17 Date of Discharge: 12/29/17 - Primary Discharge Diagnosis Acute kidney injury with oliguria requiring hemodialysis Severe bradycardia secondary to dig toxicity Hypotension Vancomycin toxicity Acute on chronic anemia Hypoglycemia Acute on chronic diastolic congestive heart failure - Secondary Discharge Diagnosis Chronic Problems (Last Updated 12/07/17 @ 09:05 by Thomas Carrasco MD) Iron deficiency anemia, unspecified (Chronic) Sleep apnea (Chronic) Poor compliance with CPAP treatment (Chronic) Biatrial enlargement (Chronic) Non-healing wound (Chronic) Chronic anticoagulation (Chronic) Diastolic CHF, chronic (Chronic) Pulmonary hypertension (Chronic) Morbid obesity (Chronic) Chronic atrial fibrillation (Chronic) Type 2 diabetes mellitus (Chronic) Hypertension (Chronic) Hospital Course and Treatment Imaging Results: Clinical Impression(s) from Imaging Studies Chest X-Ray 12/24/17 15:10 IMPRESSION: Right IJ central venous catheter as above with diffuse pulmonary edema Electronically Signed: Clinton Gallagher DO at 15:56 EDT Tel , Service support , Microbiology 12/27/17 14:30 Wound - Leg, Right Gram Stain - Final 12/27/17 14:30 Wound - Leg, Right Wound Culture - Preliminary Gram negative taylor - colonization, not infection Laboratory Results - last 24 hr 12/29/17 12/29/17 06:42 12:15 POC Glucose 130 H 157 H 12/26/17 12:30 Urine Catheter - Dos Santos Urine Culture - Final Yeast, not Lorena albicans Consultations 12/24/17 15:13 Consult: Onc/Wound/feed mill 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 Young is a 57-year-old female with a past medical history of diabetes mellitus type 2, pulmonary hypertension, chronic atrial fibrillation, chronic anticoagulation with Warfarin, hypertension, obstructive sleep apnea with pulmonary hypertension (non-compliant with CPAP), super obesity and recent debridement of extensive wounds of BL LE's infected with MRSA ( had finished a 10 day course of antibiotics) who was admitted to the the ICU on 12/24/17 with acute oliguric renal failure, vancomycin toxicity and bradycardia secondary to digoxin toxicity. Creatinine at admission was 7.48 (up from 0.93 at recent admission in November for non-healing ulcers of the LE's with MRSA cellulitis) and the potassium was 5.5. Lactic acid was 1.4. UA showed greater than 100 RBCs per high-power field and 5-10 white blood cells with no bacteria. Digoxin level was 2.27 and the vancomycin was 75.6. Nephrology was consulted and a dialysis catheter was inserted in the RIJ. She was dialyzed on 12/24 and 12/25. Urine output improved and on the day prior to DC the urine OP was 1375. At the time of discharge on 12/29/2017 she had had 1000 cc out. Creatinine had been improving and on the date of discharge was 3.40. DC from the upper posterior thigh wound was greenish and had an odor and was cultured on 12/27/2017 by surgery. At the time she was afebrile with a normal white blood cell count and normal differential. The preliminary on the culture is a gram-negative taylor which may be Pseudomonas. She was treated topically with Dakin solution and on the date of discharge the drainage from the wound was minimal and there was increased granulation and no odor. The GM negative taylor growing in the wound is due to colonization and not systemic infection. Blood sugars were adequately controlled on diet alone while in the hospital and she was not discharged on insulin. AF remains rate controlled with bradycardia in the 40's while sleeping at the time of DC on no rate limiting agents. she was tearful at DC and is depressed. She has been on Citalopram with no improvement. The Citalopram was weaned down due to the ARF and discontinued at DC. She will start Effexor XR on 01/03/18. She will need wound vacs placed following transfer to [facility]. Lab on the date of discharge showed a white blood cell count of 5.7 with a normal differential. Hemoglobin was 7.9 and stable. Platelet count was 242,000. INR was decreased at 1.7 (coumadin was held at admission and Restarted on 12/27 at a decreased dose due to the RF). The dose was increased to 10 mg daily at the time of DC. Electrolytes were within normal limits and the BUN was 35 with a creatinine of 3.4. Phosphorus was 4.4. She requires more care than can be provided at a SNF due to obesity, immobility, deep wounds requiring wound vacs and multiple other medical comorbidities. She only tolerates BIPAP for short periods at night and is difficult to arouse during the day when sleeping. The pulse ox and the heart rate drop while sleeping and she requires 2-3 LPM of oxygen while sleeping....at night and with naps. She was transferred to the AC on 12/29/17. This note was generated with [employer] dictation software. It may contain incorrect words, spelling, and punctuation that were not noted in checking the note before signing. Home Medications: Medications to take at Discharge albuterol sulfate HFA 90 mcg/actuation aerosol inhaler 2 puff INHALATION Q4H PRN g 08/26/17 fluticasone 50 mcg/actuation nasal spray,suspension 2 spray INTRANASAL DAILY 08/26/17 Budesonide/Formoterol 160/4.5 [Symbicort 160/4.5 Mcg Inhaler (SP)] 2 inh INHALATION Q12H 12/06/17 Oxycodone [Oxyir] 5 - 10 mg PO Q6H PRN PRN #10 tab 12/14/17 Acetaminophen [Pain Relief Extra Strength] 500 mg PO TID 12/24/17 Docusate Sodium [Colace] 100 mg PO BID 12/24/17 Ferrous Sulfate 325 mg PO BIDCM 12/24/17 Nutritional Supplement [Josafat - ORANGE FLAVOR] 1 packet PO BIDCM 12/24/17 Nystatin Powder [Mycostatin Powder] 1 applic TOPICAL TID 12/24/17 Vancomycin 1,500 mg IV Q12H 12/24/17 Ascorbic Acid [Vitamin C] 500 mg PO BIDCM tablet 12/29/17 Lorazepam [Ativan] 0.5 mg PO Q8H PRN PRN tablet 12/29/17 Magnesium Hydroxide [Milk Of Magnesia] 30 ml PO DAILY PRN PRN udc 12/29/17 Sodium Hypochlorite [Dakins Solution 0.25% (1/2 Strength)] 1 applic TOPICAL BID bottle 12/29/17 Venlafaxine HCl [Effexor Xr] 75 mg PO DAILY #30 cap.er.24h 12/29/17 Warfarin Sodium 10 mg PO DAILY #1 tablet 12/29/17 Following Prescrptions Were Given to Patient: Venlafaxine HCl [Effexor Xr] 75 mg PO DAILY #30 cap.er.24h Warfarin Sodium 10 mg PO DAILY #1 tablet Primary Care Physician: Rajesh Reynolds MD [Primary Care Provider] - Please follow up with your Primary Care Physician in: following DC from LTAC 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
--- NOTE | 2017-12-30 06:34 | DS.PCM_ITS ---
Discharge Date and Diagnosis Date of Admission: 12/24/17 Date of Discharge: 12/29/17 - Primary Discharge Diagnosis Acute kidney injury with oliguria requiring hemodialysis Severe bradycardia secondary to dig toxicity Hypotension Vancomycin toxicity Acute on chronic anemia Hypoglycemia Acute on chronic diastolic congestive heart failure - Secondary Discharge Diagnosis Chronic Problems (Last Updated 12/07/17 @ 09:05 by Thomas Carrasco MD) Iron deficiency anemia, unspecified (Chronic) Sleep apnea (Chronic) Poor compliance with CPAP treatment (Chronic) Biatrial enlargement (Chronic) Non-healing wound (Chronic) Chronic anticoagulation (Chronic) Diastolic CHF, chronic (Chronic) Pulmonary hypertension (Chronic) Morbid obesity (Chronic) Chronic atrial fibrillation (Chronic) Type 2 diabetes mellitus (Chronic) Hypertension (Chronic) Hospital Course and Treatment Imaging Results: Clinical Impression(s) from Imaging Studies Chest X-Ray 12/24/17 15:10 IMPRESSION: Right IJ central venous catheter as above with diffuse pulmonary edema Electronically Signed: Clinton Gallagher DO at 15:56 EDT Tel , Service support , Microbiology 12/27/17 14:30 Wound - Leg, Right Gram Stain - Final 12/27/17 14:30 Wound - Leg, Right Wound Culture - Preliminary Gram negative taylor - colonization, not infection Laboratory Results - last 24 hr 12/29/17 12/29/17 06:42 12:15 POC Glucose 130 H 157 H 12/26/17 12:30 Urine Catheter - Dos Santos Urine Culture - Final Yeast, not Lorena albicans Consultations 12/24/17 15:13 Consult: Onc/Wound/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 Young is a 57-year-old female with a past medical history of diabetes mellitus type 2, pulmonary hypertension, chronic atrial fibrillation, chronic anticoagulation with Warfarin, hypertension, obstructive sleep apnea with pulmonary hypertension (non-compliant with CPAP), super obesity and recent debridement of extensive wounds of BL LE's infected with MRSA ( had finished a 10 day course of antibiotics) who was admitted to the the ICU on 12/24/17 with acute oliguric renal failure, vancomycin toxicity and bradycardia secondary to digoxin toxicity. Creatinine at admission was 7.48 (up from 0.93 at recent admission in November for non-healing ulcers of the LE's with MRSA cellulitis) and the potassium was 5.5. Lactic acid was 1.4. UA showed greater than 100 RBCs per high-power field and 5-10 white blood cells with no bacteria. Digoxin level was 2.27 and the vancomycin was 75.6. Nephrology was consulted and a dialysis catheter was inserted in the RIJ. She was dialyzed on 12/24 and 12/25. Urine output improved and on the day prior to DC the urine OP was 1375. At the time of discharge on 12/29/2017 she had had 1000 cc out. Creatinine had been improving and on the date of discharge was 3.40. DC from the upper posterior thigh wound was greenish and had an odor and was cultured on 12/27/2017 by surgery. At the time she was afebrile with a normal white blood cell count and normal differential. The preliminary on the culture is a gram-negative taylor which may be Pseudomonas. She was treated topically with Dakin solution and on the date of discharge the drainage from the wound was minimal and there was increased granulation and no odor. The GM negative taylor growing in the wound is due to colonization and not systemic infection. Blood sugars were adequately controlled on diet alone while in the hospital and she was not discharged on insulin. AF remains rate controlled with bradycardia in the 40's while sleeping at the time of DC on no rate limiting agents. she was tearful at DC and is depressed. She has been on Citalopram with no improvement. The Citalopram was weaned down due to the ARF and discontinued at DC. She will start Effexor XR on 01/03/18. She will need wound vacs placed following transfer to [facility]. Lab on the date of discharge showed a white blood cell count of 5.7 with a normal differential. Hemoglobin was 7.9 and stable. Platelet count was 242,000. INR was decreased at 1.7 (coumadin was held at admission and Restarted on 12/27 at a decreased dose due to the RF). The dose was increased to 10 mg daily at the time of DC. Electrolytes were within normal limits and the BUN was 35 with a creatinine of 3.4. Phosphorus was 4.4. She requires more care than can be provided at a SNF due to obesity, immobility, deep wounds requiring wound vacs and multiple other medical comorbidities. She only tolerates BIPAP for short periods at night and is difficult to arouse during the day when sleeping. The pulse ox and the heart rate drop while sleeping and she requires 2-3 LPM of oxygen while sleeping....at night and with naps. She was transferred to the AC on 12/29/17. This note was generated with [employer] dictation software. It may contain incorrect words, spelling, and punctuation that were not noted in checking the note before signing. Home Medications: Medications to take at Discharge albuterol sulfate HFA 90 mcg/actuation aerosol inhaler 2 puff INHALATION Q4H PRN g 08/26/17 fluticasone 50 mcg/actuation nasal spray,suspension 2 spray INTRANASAL DAILY 12/08 Budesonide/Formoterol 160/4.5 [Symbicort 160/4.5 Mcg Inhaler (SP)] 2 inh INHALATION Q12H 12/06/17 Oxycodone [Oxyir] 5 - 10 mg PO Q6H PRN PRN #10 tab 12/14/17 Acetaminophen [Pain Relief Extra Strength] 500 mg PO TID 12/24/17 Docusate Sodium [Colace] 100 mg PO BID 12/24/17 Ferrous Sulfate 325 mg PO BIDCM 12/24/17 Nutritional Supplement [Josafat - ORANGE FLAVOR] 1 packet PO BIDCM 12/24/17 Nystatin Powder [Mycostatin Powder] 1 applic TOPICAL TID 12/24/17 Vancomycin 1,500 mg IV Q12H 12/24/17 Ascorbic Acid [Vitamin C] 500 mg PO BIDCM tablet 12/29/17 Lorazepam [Ativan] 0.5 mg PO Q8H PRN PRN tablet 12/29/17 Magnesium Hydroxide [Milk Of Magnesia] 30 ml PO DAILY PRN PRN udc 12/29/17 Sodium Hypochlorite [Dakins Solution 0.25% (1/2 Strength)] 1 applic TOPICAL BID bottle 12/29/17 Venlafaxine HCl [Effexor Xr] 75 mg PO DAILY #30 cap.er.24h 12/29/17 Warfarin Sodium 10 mg PO DAILY #1 tablet 12/29/17 Following Prescrptions Were Given to Patient: Venlafaxine HCl [Effexor Xr] 75 mg PO DAILY #30 cap.er.24h Warfarin Sodium 10 mg PO DAILY #1 tablet Primary Care Physician: Rajesh Reynolds MD [Primary Care Provider] - Please follow up with your Primary Care Physician in: following DC from LTAC 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
== END 2017-12-29 16:54 | DRG 682 ==
LOC: ICU 12-27 06:16 → PCU 12-28 09:29
PROVIDERS: Internal Medicine; Internal Medicine Critical Care Medicine; Internal Medicine Nephrology; Family Provider Family Medicine; PCP Family Medicine; Visit Provider Internal Medicine
DX: N17.9 Acute kidney failure, unspecified (principal); G93.41 Metabolic encephalopathy; I50.33 Acute on chronic diastolic (congestive) heart failure; E43 Unspecified severe protein-calorie malnutrition; Z68.44 Body mass index [BMI] 60.0-69.9, adult; L97.829 Non-pressure chronic ulcer of other part of left lower leg with unspecified severity; L97.119 Non-pressure chronic ulcer of right thigh with unspecified severity; L97.819 Non-pressure chronic ulcer of other part of right lower leg with unspecified severity; E87.5 Hyperkalemia; I48.2 Chronic atrial fibrillation; I27.20 Pulmonary hypertension, unspecified; E66.01 Morbid (severe) obesity due to excess calories; I11.0 Hypertensive heart disease with heart failure; R34 Anuria and oliguria; R00.1 Bradycardia, unspecified; T46.0X5A Adverse effect of cardiac-stimulant glycosides and drugs of similar action, initial encounter; D50.9 Iron deficiency anemia, unspecified; Z79.01 Long term (current) use of anticoagulants; G47.33 Obstructive sleep apnea (adult) (pediatric); T36.8X5A Adverse effect of other systemic antibiotics, initial encounter; I95.9 Hypotension, unspecified; E11.649 Type 2 diabetes mellitus with hypoglycemia without coma; E11.622 Type 2 diabetes mellitus with other skin ulcer
CPT/HCPCS: 36415; 71045; 80053; 80069; 80162; 80202; 81001; 82570; 82962; 83605; 83735; 84300; 84484; 85025; 85027; 85610; 85652; 85730; 87070; 87075; 87077; 87086; 87088; 87184; 87186; 87205; 87340; 87641; 90937; 93005; 94002; 97110; 97162; 97166; 97802; J7030; A4216; C1752; G0257

== ENCOUNTER 2018-03-07 10:29 | Outpatient (RCR) | payer OTHER, SELFPAY ==
[2018-03-07 11:18] VITALS: BP 127/85; PULSE 118; RESP 18; TEMP 36.4; BMI 58.1
--- NOTE | 2018-03-07 23:55 | PN.PCM_ITS ---
Type of Wound Date of Service: 03/07/18 Chief Complaint: Nonhealing ulcers right lateral leg, right posterior thigh, right lateral ankle, left lateral leg, and left medial ankle. History of Wound: Surgery 12/09/17 - 1. Surgical preparation right posterior leg with incision and drainage and excisional debridement nonhealing infected MRSA ulcer abscess (264 cm2). 2. Surgical preparation right posterior thigh with incision and drainage and excisional debridement nonhealing infected MRSA ulcer abscess (112 cm2). 3. Surgical preparation left posterior leg with incision and drainage and excisional debridement nonhealing infected MRSA ulcer abscess (216 cm2). 4. Surgical preparation right lateral ankle with incision and drainage and excisional debridement nonhealing infected MRSA ulcer abscess ( 4 cm2). 5. Surgical preparation left medial ankle with incision and drainage and excisional debridement nonhealing infected MRSA ulcer abscess (4 cm2). Wound care - Silver. Operative culture - Proteus mirabilis, Streptococcus agalactiae, MRSA, Anaerobic cocci, Corynebacterium minutissimum. She was treated with Vancomycin, Ceftriaxone, and Flagyl. Wound culture later on in showed Pseudomonas aeroginosa and was considered a surface contaminant. Prealbumin was 7.9. Encourage nutritional supplementation with protein to help the healing process. HgbA1c was 11.3. Today the patient denies any fever. Her appetite is good. Progress of Wound: Improved. Right lateral ankle ulcer is healed. - Physical Exam Vital Signs Temp Pulse Resp BP 97.5 F L 118 H 18 127/85 H 03/07/18 11:18 03/07/18 11:18 03/07/18 11:18 03/07/18 11:18 Wound Measurements and Assessment WC - Nurse 1 - General Ulcer Measurement Start: 03/07/18 10:48 Freq: Status: Active Protocol: Activity Type Activity Date Activity User E-Sign Co-Sign Detail Recorded Client Recorded Date Recorded By Document 03/07/18 11:18 [facility] [id number] 03/07/18 11:35 [facility] 03/07/18 11:18 Wound Center Nurse 1 [Ulcer Assessment] #4- RT POST UPPER THIGH CLUSTER -Combined with other wound No -Current Size (cm) - Length 0.1 -Current Size (cm) - Width 3 -Current Size (cm) - Depth 0.1 -Total Square Cm 0.3 -Date of Last Picture (Recall this 03/07/18 field) -Photo Taken Yes -Epithelialization Small 1-33% -Tunneling No -Undermining/Tunneling No -Circular Undermining No -Exudate Amt Small (1-33%) -Exudate Type Serosanguineous -Wound Margin Distinct, Outline Attached -Granulation Amt Large (67-100%) -Granulation Quality [place] -Slough/Fibrin No -Necrosis Amt None Present (0 %) -Texture (Airam-wound Skin Appearance) Scarring -Moisture (Airam-wound Skin Appearance Maceration ) -Color (Airam-wound Skin Appearance) Palor -Temperature (Airam-wound Skin No Abnormality Appearance) (Pt Warm) -Tenderness on Palpation (Airam-wound No Skin Appearance) -Ulcer Cleansing Wound Cleanser -Foul Odor after Cleansing No -Anesthetic Used 4% Lidocaine Solution #3- RT POST LE -Combined with other wound No -Current Size (cm) - Length 13.3 -Current Size (cm) - Width 6.3 -Current Size (cm) - Depth 0.2 -Total Square Cm 83.79 -Date of Last Picture (Recall this 03/07/18 field) -Photo Taken Yes -Epithelialization Small 1-33% -Tunneling No -Undermining/Tunneling No -Circular Undermining No -Exudate Amt Medium (34-66%) -Exudate Type Serosanguineous -Wound Margin Distinct, Outline Attached -Granulation Amt Large (67-100%) -Granulation Quality [place] -Slough/Fibrin Yes -Necrosis Amt Small (1-33%) -Necrotic Tissue Type Adherent Slough -Texture (Airam-wound Skin Appearance) Scarring -Moisture (Airam-wound Skin Appearance Dry/Scaly ) -Color (Airam-wound Skin Appearance) Assessed -Temperature (Airam-wound Skin No Abnormality Appearance) (Pt Warm) -Tenderness on Palpation (Airam-wound No Skin Appearance) -Ulcer Cleansing Wound Cleanser -Foul Odor after Cleansing No -Anesthetic Used 4% Lidocaine Solution #2 LT POST LE -Combined with other wound No -Current Size (cm) - Length 17.5 -Current Size (cm) - Width 2.9 -Current Size (cm) - Depth 0.1 -Total Square Cm 50.75 -Date of Last Picture (Recall this 03/07/18 field) -Photo Taken Yes -Epithelialization Small 1-33% -Tunneling No -Undermining/Tunneling No -Circular Undermining No -Exudate Amt Medium (34-66%) -Exudate Type Serosanguineous -Wound Margin Distinct, Outline Attached -Granulation Amt Large (67-100%) -Granulation Quality [place] -Slough/Fibrin Yes -Necrosis Amt Small (1-33%) -Necrotic Tissue Type Adherent Slough -Texture (Airam-wound Skin Appearance) Scarring -Moisture (Airam-wound Skin Appearance Dry/Scaly ) -Color (Airam-wound Skin Appearance) Assessed -Temperature (Airam-wound Skin No Abnormality Appearance) (Pt Warm) -Tenderness on Palpation (Airam-wound Yes Skin Appearance) -Ulcer Cleansing Wound Cleanser -Foul Odor after Cleansing No -Anesthetic Used 4% Lidocaine Solution #1- LT MEDIAL ANKLE -Combined with other wound No -Current Size (cm) - Length 0.5 -Current Size (cm) - Width 1.3 -Current Size (cm) - Depth 0.1 -Total Square Cm 0.65 -Date of Last Picture (Recall this 03/07/18 field) -Photo Taken Yes -Epithelialization Small 1-33% -Tunneling No -Undermining/Tunneling No -Circular Undermining No -Exudate Amt Small (1-33%) -Exudate Type Serosanguineous -Wound Margin Distinct, Outline Attached -Granulation Amt Large (67-100%) -Granulation Quality [place] -Slough/Fibrin No -Necrosis Amt None Present (0 %) -Texture (Airam-wound Skin Appearance) Scarring -Moisture (Airam-wound Skin Appearance Dry/Scaly ) -Temperature (Airam-wound Skin No Abnormality Appearance) (Pt Warm) -Tenderness on Palpation (Airam-wound Yes Skin Appearance) -Ulcer Cleansing Wound Cleanser -Foul Odor after Cleansing No -Anesthetic Used 4% Lidocaine Solution [Edema Assessment] -Lower Limb Edema Present Yes -Right Calf (cm) 55.2 -Right Ankle (cm) 37.7 -Left Calf (cm) 65.7 -Left Ankle (cm) 36.5 WC - Nurse 2 - General Ulcer CM Notes Start: 03/07/18 10:48 Freq: Status: Active Protocol: Activity Type Activity Date Activity User E-Sign Co-Sign Detail Recorded Client Recorded Date Recorded By Document 03/07/18 13:04 [id number] 03/07/18 13:09 03/07/18 13:04 Wound Center Nurse 2 [Procedure/Treatment] #4- RT POST UPPER THIGH CLUSTER -Time 13:06 -Correct Patient Yes -Correct Side, Site, Position Yes -Correct Procedure Yes -Procedure Performed Yes -Type of Procedure Debridement -Clinical Debridement Subcutaneous -Post Debridement Size (cm) - Length 0.2 -Post Debridement Size (cm) - Width 3.1 -Post Debridement Size (cm) - Depth 0.1 -Total Square Cm 0.62 -Wound/Ulcer Outcome Not Healed -Ulcer Cleansing Rinsed/ Irrigated with Saline -Foul Odor after Cleansing No -Bioengineered Tissue No -Topical Lidocaine (%) 4 -Bleeding Controlled with Pressure -Treatment Response Procedure Tolerated Well #3- RT POST LE -Time 13:07 -Correct Patient Yes -Correct Side, Site, Position Yes -Correct Procedure Yes -Procedure Performed Yes -Type of Procedure Debridement -Clinical Debridement Subcutaneous -Post Debridement Size (cm) - Length 13.4 -Post Debridement Size (cm) - Width 6.4 -Post Debridement Size (cm) - Depth 0.2 -Total Square Cm 85.76 -Wound/Ulcer Outcome Not Healed -Ulcer Cleansing Rinsed/ Irrigated with Saline -Foul Odor after Cleansing No -Bioengineered Tissue No -Topical Lidocaine (%) 4 -Bleeding Controlled with Pressure -Treatment Response Procedure Tolerated Well #2 LT POST LE -Time 13:07 -Correct Patient Yes -Correct Side, Site, Position Yes -Correct Procedure Yes -Procedure Performed Yes -Type of Procedure Debridement -Clinical Debridement Subcutaneous -Post Debridement Size (cm) - Length 17.6 -Post Debridement Size (cm) - Width 3.0 -Post Debridement Size (cm) - Depth 0.1 -Total Square Cm 52.80 -Wound/Ulcer Outcome Not Healed -Ulcer Cleansing Rinsed/ Irrigated with Saline -Foul Odor after Cleansing No -Bioengineered Tissue No -Topical Lidocaine (%) 4 -Bleeding Controlled with Pressure -Treatment Response Procedure Tolerated Well #1- LT MEDIAL ANKLE -Time 13:08 -Correct Patient Yes -Correct Side, Site, Position Yes -Correct Procedure Yes -Procedure Performed Yes -Type of Procedure Debridement -Clinical Debridement Subcutaneous -Post Debridement Size (cm) - Length 0.6 -Post Debridement Size (cm) - Width 1.4 -Post Debridement Size (cm) - Depth 0.1 -Total Square Cm 0.84 -Wound/Ulcer Outcome Not Healed -Ulcer Cleansing Rinsed/ Irrigated with Saline -Foul Odor after Cleansing No -Bioengineered Tissue No -Topical Lidocaine (%) 4 -Bleeding Controlled with Pressure -Treatment Response Procedure Tolerated Well [See Physician Procedure note for Specifics] Pain Scale: 0-10 Numeric [Pain] -Is Patient Pain Free? Yes Debridement Note Post-Debridement Measurements/Treatment WC - Nurse 2 - General Ulcer CM Notes Start: 03/07/18 10:48 Freq: Status: Active Protocol: Activity Type Activity Date Activity User E-Sign Co-Sign Detail Recorded Client Recorded Date Recorded By Document 03/07/18 13:04 [id number] 03/07/18 13:09 03/07/18 13:04 Wound Center Nurse 2 #4- RT POST UPPER THIGH CLUSTER -Time 13:06 -Correct Patient Yes -Correct Side, Site, Position Yes -Correct Procedure Yes -Procedure Performed Yes -Type of Procedure Debridement -Clinical Debridement Subcutaneous -Post Debridement Size (cm) - Length 0.2 -Post Debridement Size (cm) - Width 3.1 -Post Debridement Size (cm) - Depth 0.1 -Total Square Cm 0.62 -Wound/Ulcer Outcome Not Healed -Ulcer Cleansing Rinsed/ Irrigated with Saline -Foul Odor after Cleansing No -Bioengineered Tissue No -Topical Lidocaine (%) 4 -Bleeding Controlled with Pressure -Treatment Response Procedure Tolerated Well #3- RT POST LE -Time 13:07 -Correct Patient Yes -Correct Side, Site, Position Yes -Correct Procedure Yes -Procedure Performed Yes -Type of Procedure Debridement -Clinical Debridement Subcutaneous -Post Debridement Size (cm) - Length 13.4 -Post Debridement Size (cm) - Width 6.4 -Post Debridement Size (cm) - Depth 0.2 -Total Square Cm 85.76 -Wound/Ulcer Outcome Not Healed -Ulcer Cleansing Rinsed/ Irrigated with Saline -Foul Odor after Cleansing No -Bioengineered Tissue No -Topical Lidocaine (%) 4 -Bleeding Controlled with Pressure -Treatment Response Procedure Tolerated Well #2 LT POST LE -Time 13:07 -Correct Patient Yes -Correct Side, Site, Position Yes -Correct Procedure Yes -Procedure Performed Yes -Type of Procedure Debridement -Clinical Debridement Subcutaneous -Post Debridement Size (cm) - Length 17.6 -Post Debridement Size (cm) - Width 3.0 -Post Debridement Size (cm) - Depth 0.1 -Total Square Cm 52.80 -Wound/Ulcer Outcome Not Healed -Ulcer Cleansing Rinsed/ Irrigated with Saline -Foul Odor after Cleansing No -Bioengineered Tissue No -Topical Lidocaine (%) 4 -Bleeding Controlled with Pressure -Treatment Response Procedure Tolerated Well #1- LT MEDIAL ANKLE -Time 13:08 -Correct Patient Yes -Correct Side, Site, Position Yes -Correct Procedure Yes -Procedure Performed Yes -Type of Procedure Debridement -Clinical Debridement Subcutaneous -Post Debridement Size (cm) - Length 0.6 -Post Debridement Size (cm) - Width 1.4 -Post Debridement Size (cm) - Depth 0.1 -Total Square Cm 0.84 -Wound/Ulcer Outcome Not Healed -Ulcer Cleansing Rinsed/ Irrigated with Saline -Foul Odor after Cleansing No -Bioengineered Tissue No -Topical Lidocaine (%) 4 -Bleeding Controlled with Pressure -Treatment Response Procedure Tolerated Well Pain Scale: 0-10 Numeric Is Patient Pain Free? Yes Wound debrided: #1 Left medial ankle. Laterality: Left Wound Grade/Stage: 2. Type of Debridement: Excisional debridement Anesthesia Used: 4% Lidocaine Solution Depth: Down to and including healthy tissue, in the subcutaneous layer Percentage of wound debrided: 100 Instrument Used: 5mm curette Tissue Removed: subcutaneous tissue. Severity: Fat Layer Exposed Amount of bleeding with debridement: Mild Bleeding Controlled with: Pressure Patient tolerated procedure well - Additional Wound Wound debrided: #2 Left lateral leg. Laterality: Left Wound Grade/Stage: 2. Type of Debridement: Excisional debridement Anesthesia Used: 4% Lidocaine Solution Depth: Down to and including healthy tissue, in the subcutaneous layer Percentage of wound debrided: 100 Instrument Used: 7mm curette Tissue Removed: subcutaneous tissue. Severity: Fat Layer Exposed Amount of bleeding with debridement: Mild Bleeding Controlled with: Pressure Patient tolerated procedure: Patient tolerated procedure well - Additional Wound Wound debrided: #3 Right lateral leg. Laterality: Right Wound Grade/Stage: 2. Type of Debridement: Excisional debridement Anesthesia Used: 4% Lidocaine Solution Depth: Down to and including healthy tissue, in the subcutaneous layer Percentage of wound debrided: 100 Instrument Used: 7mm curette Tissue Removed: sbcutaneous tissue. Severity: Fat Layer Exposed Amount of bleeding with debridement: Mild Bleeding Controlled with: Pressure Patient tolerated procedure: Patient tolerated procedure well - Additional Wound Wound debrided: #4 Right posterior thigh. Laterality: Right Wound Grade/Stage: 2. Type of Debridement: Excisional debridement Anesthesia Used: 4% Lidocaine Solution Depth: Down to and including healthy tissue, in the subcutaneous layer Percentage of wound debrided: 100 Instrument Used: 7mm curette Tissue Removed: subcutaneous tissue. Severity: Fat Layer Exposed Amount of bleeding with debridement: Mild Bleeding Controlled with: Pressure Patient tolerated procedure: Patient tolerated procedure well - Additional Wound Wound debrided: #5 Right lateral ankle. Laterality: Right Wound Grade/Stage: 2. Patient tolerated procedure: - - no debridement was done today as the ulcer has healed. Assessment/Plan Assessment: 1. 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 2. Nonhealing infected MRSA diabetic ulcer abscess right posterior thigh. 3. Nonhealing infected MRSA diabetic ulcer abscess left posterior leg. 4. Infected MRSA diabetic ulcer abscess right lateral ankle, healed. 5. Nonhealing infected MRSA diabetic ulcer abscess left medial ankle. 6. Diabetes mellitus. 7. Chronic venous insufficiency with venostasis disease. 8. MRSA. 9. Obesity. 10. Atrial fibrillation on Coumadin. 11. s/p surgical preparation right posterior leg with incision and drainage and excisional debridement nonhealing infected MRSA ulcer abscess (264 cm2) and surgical preparation right posterior thigh with incision and drainage and excisional debridement nonhealing infected MRSA ulcer abscess (112 cm2) and surgical preparation left posterior leg with incision and drainage and excisional debridement nonhealing infected MRSA ulcer abscess (216 cm2) and surgical preparation right lateral ankle with incision and drainage and excisional debridement nonhealing infected MRSA ulcer abscess (4 cm2) and surgical preparation left medial ankle with incision and drainage and excisional debridement nonhealing infected MRSA ulcer abscess (4 cm2). Plan: Continue Silver dressing changes daily. She was treated for her positive operative cultures in 12/08 with Vancomycin, Ceftriaxone, and Flagyl. She is leaving the [facility] on 03/18/18. Prealbumin was 7.9. Encourage nutritional supplementation with protein to help the healing process. If there is a plateau in the healing process, can proceed with delayed closure with skin grafting. Prior to any grafting procedure, would check a HgbA1c which needs to be below 8 for an elective procedure. Would also reculture the wounds before any skin grafting is done. Her last HgbA1c was 11.3 in 12/08. Followup 4 weeks.
== END 2018-03-22 23:59 ==
LOC: WC 10:29
PROVIDERS: Family Provider Family Medicine; PCP Family Medicine; Visit Provider Surgery
DX: E11.622 Type 2 diabetes mellitus with other skin ulcer (principal); L97.322 Non-pressure chronic ulcer of left ankle with fat layer exposed; L97.112 Non-pressure chronic ulcer of right thigh with fat layer exposed; L97.812 Non-pressure chronic ulcer of other part of right lower leg with fat layer exposed; L97.822 Non-pressure chronic ulcer of other part of left lower leg with fat layer exposed; Z86.14 Personal history of Methicillin resistant Staphylococcus aureus infection; I87.2 Venous insufficiency (chronic) (peripheral); I48.91 Unspecified atrial fibrillation; Z79.01 Long term (current) use of anticoagulants
CPT/HCPCS: 11042; 11045; 99213; G0463

== ENCOUNTER 2018-04-11 07:59 | Outpatient (RCR) | payer OTHER, SELFPAY ==
[2018-03-23 01:26] VITALS: BP 127/85; PULSE 118; RESP 18; TEMP 36.4
== END 2018-04-22 23:59 ==
LOC: WC 07:59
PROVIDERS: Family Provider Family Medicine; PCP Family Medicine; Visit Provider Surgery
DX: Z09 Encounter for follow-up examination after completed treatment for conditions other than malignant neoplasm (principal)

== ENCOUNTER 2018-05-10 13:58 | Outpatient (RCR) | payer OTHER, SELFPAY ==
[2018-04-23 01:27] VITALS: BP 127/85; PULSE 118; RESP 18; TEMP 36.4
[2018-05-10 14:49] VITALS: BP 108/67; PULSE 78; RESP 20; TEMP 37.3
--- NOTE | 2018-05-11 16:18 | HP.PCM_ITS ---
(1) Ulcer of left lower extremity with fat layer exposed Status: Acute Current Visit: Yes Code(s): L97.922 - Non-pressure chronic ulcer of unspecified part of left lower leg with fat layer exposed (2) Ulcer of right lower extremity with fat layer exposed Status: Acute Current Visit: Yes Code(s): L97.912 - Non-pressure chronic ulcer of unspecified part of right lower leg with fat layer exposed (3) Chronic acquired lymphedema Status: Acute Current Visit: Yes Code(s): I89.0 - Lymphedema, not elsewhere classified (4) Morbid obesity Status: Chronic Current Visit: No Code(s): E66.01 - Morbid (severe) obesity due to excess calories History of Present Illness Date of Service: 05/10/18 Chief Complaint: Nonhealing ulcers right lateral lower leg and left lateral lower leg status post surgical debridement November 2017. History of Wound: Surgery 12/09/17 - 1. Surgical preparation right posterior leg with incision and drainage and excisional debridement nonhealing infected MRSA ulcer abscess (264 cm2). 2. Surgical preparation right posterior thigh with incision and drainage and excisional debridement nonhealing infected MRSA ulcer abscess (112 cm2). 3. Surgical preparation left posterior leg with incision and drainage and excisional debridement nonhealing infected MRSA ulcer abscess (216 cm2). 4. Surgical preparation right lateral ankle with incision and drainage and excisional debridement nonhealing infected MRSA ulcer abscess ( 4 cm2). 5. Surgical preparation left medial ankle with incision and drainage and excisional debridement nonhealing infected MRSA ulcer abscess (4 cm2). Wound care - Silver. Operative culture - Proteus mirabilis, STreptococcus agalactiae, MRSA, anaerobic cocci, Corynebacterium minute SMM. She was treated with vancomycin, ceftriaxone, and Flagyl. Wound culture later on 01/07 showed Pseudomonas organism and was considered a surface contaminant. Pre-albumin at that time was 7.9. The patient was encouraged nutritional supplementation with protein to help with the healing process A1c was 11.3. The patient has not followed up since February 2018 and now presents to the wound healing center with complaints as above. Some of her previous wounds have healed however she continues to have the left and right lower extremity nonhealing ulcers. She denies any systemic signs of infection and denies any purulent drainage, pain at the ulcers, or other complaints. She does complain of having significant bilateral lower extremity edema. She otherwise denies any fever, chills, nausea , vomiting, shortness of breath, chest pain or pressure, syncope or presyncopal episodes. Past Medical History Past Medical History: Chronic Problems (Last Updated 12/07/17 @ 09:05 by Thomas Carrasco MD) Nonhealing ulcer of multiple sites of left lower extremity with fat layer exposed (Chronic) Iron deficiency anemia, unspecified (Chronic) Sleep apnea (Chronic) Poor compliance with CPAP treatment (Chronic) Biatrial enlargement (Chronic) Non-healing wound (Chronic) Chronic anticoagulation (Chronic) Diastolic CHF, chronic (Chronic) Pulmonary hypertension (Chronic) Morbid obesity (Chronic) Chronic atrial fibrillation (Chronic) Type 2 diabetes mellitus (Chronic) Hypertension (Chronic) Surgical History: cholecystectomy, hysterectomy - with BSO, tonsillectomy, - - 2 section. Allergies/Adverse Reactions: Allergies latex Allergy (Verified 03/07/18 11:40) Itching pentazocine lactate [From [place]win] Allergy (Verified 03/07/18 11:40) Itching phenobarbital Allergy (Verified 03/07/18 11:40) Itching tree nut Allergy (Verified 03/07/18 11:40) Anaphylaxis codeine Adverse Reaction (Verified 03/07/18 11:40) Upset Stomach Home Medications: Ambulatory Orders Medication Instructions Recorded albuterol sulfate HFA 90 2 puff INHALATION Q4H PRN g 08/26/17 mcg/actuation aerosol inhaler fluticasone 50 mcg/actuation nasal 2 spray INTRANASAL DAILY 08/26/17 spray,suspension Budesonide/Formoterol 160/4.5 1 inh INHALATION DAILY 12/06/17 [Symbicort 160/4.5 Mcg Inhaler (SP)] Oxycodone [Oxyir] 5 - 10 mg PO Q6H PRN PRN #10 tab 12/14/17 Acetaminophen [Pain Relief Extra 650 mg PO Q6H 12/24/17 Strength] Docusate Sodium [Colace] 100 mg PO BID 12/24/17 Ferrous Sulfate 325 mg PO BIDCM 12/24/17 Nutritional Supplement [Josafat - 1 packet PO BIDCM 12/24/17 ORANGE FLAVOR] Magnesium Hydroxide [Milk Of 30 ml PO DAILY PRN PRN udc 12/29/17 Magnesia] Apixaban [Eliquis] 5 mg PO BID 03/07/18 Ascorbic Acid [Vitamin C] 500 mg PO DAILY 03/07/18 Bisacodyl 10 mg RC DAILY PRN 03/07/18 Diltiazem HCl [Cardizem Cd] 480 mg PO DAILY 03/07/18 Gabapentin [Neurontin] 400 mg PO 4X/DAY 03/07/18 Insulin Lispro [Humalog] See Protocol SQ ACHS 03/07/18 Lorazepam [Ativan] 0.5 mg PO Q6H PRN PRN 03/07/18 Multivitamin [Daily Multiple 1 each PO DAILY 03/07/18 Vitamin] Polyethylene Glycol 3350 [Miralax] 17 gm PO DAILY 03/07/18 Promethazine HCl 25 mg PO Q6H PRN 03/07/18 Venlafaxine HCl [Effexor Xr] 75 mg PO BID 03/07/18 - Family History Maternal Family History: Family History (Last Updated 08/26/17 @ 10:41 by Erin Carter) Mother Colon cancer Diabetes Hypertension CHF (congestive heart failure) Father COPD (chronic obstructive pulmonary disease) Heart disease Diabetes Brother Heart disease Stomach cancer Sister Ovarian cancer No pertinent history Paternal Family History: Family History (Last Updated 08/26/17 @ 10:41 by Erin Carter) Mother Colon cancer Diabetes Hypertension CHF (congestive heart failure) Father COPD (chronic obstructive pulmonary disease) Heart disease Diabetes Brother Heart disease Stomach cancer Sister Ovarian cancer No pertinent history Smoking Status: Former smoker Review of Systems Constitutional: Denies: Chills, Fever, Weight Change Eyes: Denies: Pain, Vision Change HEENT: Denies: Difficulty Hearing, Difficulty Swallowing, Sinus Congestion Cardiovascular: Reports: Edema - Bilateral lower extremity edema.. Denies: Chest Pain, Palpitations Respiratory: Denies: Cough, Shortness of Breath Gastrointestinal: Denies: Diarrhea, Nausea, Vomiting Genitourinary: Denies: Dysuria, Hematuria Skin: Reports: Wounds - see HPI Endocrine: Denies: Heat/ Cold Intolerance, Polydipsia, Polyuria Hematologic/ Lymphatic: Denies: Easy Bruising, Easy Bleeding - Physical Exam Vital Signs Temp Pulse Resp BP 99.1 F 78 20 H 108/67 05/10/18 14:49 05/10/18 14:49 05/10/18 14:49 05/10/18 14:49 General: Alert, Oriented x3, Cooperative HEENT: Atraumatic, Normocephalic Oral: Moist Mucosa Lungs: Clear to auscultation, Normal air movement Cardiovascular: Regular rate, Regular Rhythm Extremities: No clubbing, No cyanosis, Diminished Peripheral Pulses, Edema - Significant amount of lower extremity edema with edema on the right. Difficult to palpate pedal pulses. Skin: Ulcer/ Wound - Left lateral lower extremity wound 17.3x2.4x0.1 cm Right lateral lower extremity wound 12.5x6.6x 0.2 cm Wound Measurements and Assessment WC - Nurse 1 - General Ulcer Measurement Start: 05/10/18 14:29 Freq: Status: Active Protocol: Activity Type Activity Date Activity User E-Sign Co-Sign Detail Recorded Client Recorded Date Recorded By Document 05/10/18 14:49 [id number] 05/10/18 15:02 05/10/18 14:49 Wound Center Nurse 1 [Ulcer Assessment] #6 LEFT LATERAL LEG -Combined with other wound No -Current Size (cm) - Length 17 -Current Size (cm) - Width 2.3 -Current Size (cm) - Depth 0.2 -Total Square Cm 39.1 -Date of Last Picture (Recall this 05/10/18 field) -Photo Taken Yes -Epithelialization None Present -Tunneling No -Undermining/Tunneling No -Circular Undermining No -Exudate Amt Medium (34-66%) -Exudate Type Serosanguineous -Wound Margin Distinct, Outline Attached -Granulation Amt Small (1-33%) -Granulation Quality [place] Red -Slough/Fibrin Yes -Necrosis Amt None Present (0 %) -Necrotic Tissue Type Adherent Slough -Structure Exposed None/Limited to Skin Breakdown -Texture (Airam-wound Skin Appearance) Assessed Scarring -Moisture (Airam-wound Skin Appearance Assessed ) -Color (Airam-wound Skin Appearance) No Abnormality Hemosiderin Staining -Temperature (Airam-wound Skin No Abnormality Appearance) (Pt Warm) -Tenderness on Palpation (Airam-wound Yes Skin Appearance) -Ulcer Cleansing Wound Cleanser -Foul Odor after Cleansing No -Anesthetic Used 5% Lidocaine Gel #5 RIGHT LATERAL LEG -Combined with other wound No -Current Size (cm) - Length 14 -Current Size (cm) - Width 7.0 -Current Size (cm) - Depth 0.1 -Total Square Cm 98.0 -Date of Last Picture (Recall this 05/10/18 field) -Photo Taken Yes -Epithelialization None Present -Tunneling No -Undermining/Tunneling No -Circular Undermining No -Exudate Amt Medium (34-66%) -Exudate Type Serosanguineous -Wound Margin Distinct, Outline Attached -Granulation Amt Medium (34-66%) -Granulation Quality [place] Red -Slough/Fibrin Yes -Necrosis Amt None Present (0 %) -Necrotic Tissue Type Adherent Slough -Structure Exposed None/Limited to Skin Breakdown -Texture (Airam-wound Skin Appearance) Assessed Scarring -Moisture (Airam-wound Skin Appearance No Abnormality ) Assessed -Color (Airam-wound Skin Appearance) Assessed Hemosiderin Staining -Temperature (Airam-wound Skin No Abnormality Appearance) (Pt Warm) -Tenderness on Palpation (Airam-wound Yes Skin Appearance) -Ulcer Cleansing Wound Cleanser -Foul Odor after Cleansing No -Anesthetic Used 5% Lidocaine Gel [Edema Assessment] -Lower Limb Edema Present Yes -Right Calf (cm) 69 -Right Ankle (cm) 38 -Left Calf (cm) 82.5 -Left Ankle (cm) 39.8 WC - Nurse 2 - General Ulcer CM Notes Start: 05/10/18 14:29 Freq: Status: Active Protocol: Activity Type Activity Date Activity User E-Sign Co-Sign Detail Recorded Client Recorded Date Recorded By Document 05/10/18 15:29 [id number] 05/10/18 15:35 05/10/18 15:29 Wound Center Nurse 2 [Procedure/Treatment] #6 LEFT LATERAL LEG -Time 15:29 -Correct Patient Yes -Correct Side, Site, Position Yes -Correct Procedure Yes -Procedure Performed Yes -Type of Procedure Debridement -Clinical Debridement Subcutaneous -Post Debridement Size (cm) - Length 17.3 -Post Debridement Size (cm) - Width 2.4 -Post Debridement Size (cm) - Depth 0.1 -Total Square Cm 41.52 -Wound/Ulcer Outcome Not Healed -Ulcer Cleansing Rinsed/ Irrigated with Saline -Foul Odor after Cleansing No -Bioengineered Tissue No -Bleeding Controlled with Pressure -Treatment Response Procedure Tolerated Well #5 RIGHT LATERAL LEG -Time 15:30 -Correct Patient Yes -Correct Side, Site, Position Yes -Correct Procedure Yes -Procedure Performed Yes -Type of Procedure Debridement -Clinical Debridement Subcutaneous -Post Debridement Size (cm) - Length 12.5 -Post Debridement Size (cm) - Width 6.6 -Post Debridement Size (cm) - Depth 0.2 -Total Square Cm 82.50 -Wound/Ulcer Outcome Not Healed -Ulcer Cleansing Rinsed/ Irrigated with Saline -Foul Odor after Cleansing No -Bioengineered Tissue No -Bleeding Controlled with Pressure -Treatment Response Procedure Tolerated Well [See Physician Procedure note for Specifics] Pain Scale: 0-10 Numeric [Pain] -Is Patient Pain Free? Yes Musculoskeletal: No Tenderness to Palpation of Joints or Extremities Neurological: Neuro grossly intact Psych/Mental Status: Appropriate, Anxious - Patient very anxious upon arrival. She states she does not like to be at the wound center because it increases her anxiety., Alert and oriented to time, place, person, mood and affect Debridement Note Post-Debridement Measurements/Treatment WC - Nurse 2 - General Ulcer CM Notes Start: 05/10/18 14:29 Freq: Status: Active Protocol: Activity Type Activity Date Activity User E-Sign Co-Sign Detail Recorded Client Recorded Date Recorded By Document 05/10/18 15:29 [id number] 05/10/18 15:35 05/10/18 15:29 Wound Center Nurse 2 #6 LEFT LATERAL LEG -Time 15:29 -Correct Patient Yes -Correct Side, Site, Position Yes -Correct Procedure Yes -Procedure Performed Yes -Type of Procedure Debridement -Clinical Debridement Subcutaneous -Post Debridement Size (cm) - Length 17.3 -Post Debridement Size (cm) - Width 2.4 -Post Debridement Size (cm) - Depth 0.1 -Total Square Cm 41.52 -Wound/Ulcer Outcome Not Healed -Ulcer Cleansing Rinsed/ Irrigated with Saline -Foul Odor after Cleansing No -Bioengineered Tissue No -Bleeding Controlled with Pressure -Treatment Response Procedure Tolerated Well #5 RIGHT LATERAL LEG -Time 15:30 -Correct Patient Yes -Correct Side, Site, Position Yes -Correct Procedure Yes -Procedure Performed Yes -Type of Procedure Debridement -Clinical Debridement Subcutaneous -Post Debridement Size (cm) - Length 12.5 -Post Debridement Size (cm) - Width 6.6 -Post Debridement Size (cm) - Depth 0.2 -Total Square Cm 82.50 -Wound/Ulcer Outcome Not Healed -Ulcer Cleansing Rinsed/ Irrigated with Saline -Foul Odor after Cleansing No -Bioengineered Tissue No -Bleeding Controlled with Pressure -Treatment Response Procedure Tolerated Well Pain Scale: 0-10 Numeric Is Patient Pain Free? Yes Wound debrided: Right lower extremity ulcer Laterality: Right Type of Debridement: Excisional debridement Anesthesia Used: 4% Lidocaine Solution Depth: Down to and including healthy tissue, in the subcutaneous layer Percentage of wound debrided: 100 Instrument Used: 7mm curette Tissue Removed: Slough and devitalized tissue Severity: Fat Layer Exposed Amount of bleeding with debridement: Mild Bleeding Controlled with: Pressure Patient tolerated procedure well - Additional Wound Laterality: Left Type of Debridement: Excisional debridement Anesthesia Used: 4% Lidocaine Solution Depth: Down to and including healthy tissue, in the subcutaneous layer Percentage of wound debrided: 100 Instrument Used: 7mm curette Tissue Removed: Slough and devitalized tissue Severity: Fat Layer Exposed Amount of bleeding with debridement: Mild Bleeding Controlled with: Pressure Patient tolerated procedure: Patient tolerated procedure well Assessment/Plan Active Problems (Last Updated 12/07/17 @ 09:05 by Thomas Carrasco MD) Ulcer of right lower extremity with fat layer exposed (Acute) Ulcer of left lower extremity with fat layer exposed (Acute) Chronic acquired lymphedema (Acute) Assessment: 1 Nonhealing ulcer right lateral posterior leg. 2. Nonhealing ulcer left lateral posterior leg. 3. Diabetes mellitus. 4. Chronic venous insufficiency with venous stasis disease. 5. History of MRSA. 6. Obesity. 7. Atrial fibrillation on Coumadin. 8. Status post surgical preparation right posterior leg with incision and drainage and excisional debridement nonhealing infected MRSA ulcer abscess (264 cm2) and surgical preparation right posterior thigh with incision and drainage and excisional debridement nonhealing infected MRSA ulcer abscess 9112 cm2) and surgical preparation left posterior leg with incision and drainage and excisional debridement nonhealing infected MRSA ulcer abscess (216 cm2) and surgical preparation right lateral ankle with incision and drainage and excisional debridement nonhealing infected MRSA ulcer abscess(4 cm2) and surgical preparation left medial ankle with incision and drainage and excisional debridement nonhealing infected MRSA ulcer abscess(4 cm2). All wounds are healed except for the right lateral lower extremity and the left lower lateral extremity. Plan: We will continue Aquacel silver dressing until Santyl is available. When Yeni becomes available we will use daily on both bilateral lower extremity ulcers. The wound center will order Santyl through [facility] specialty pharmacy. Will order vascular studies. Will apply Hussein wraps to bilateral lower extremities. Encouraged to elevate legs for at least 30 minutes 3 times a day. Increase home health to 2 visits a week. Will follow up in wound center 1 week. She was treated for positive all operative cultures 12/08 with Vancomycin , Ceftriaxone and Flagyl. She left the ECF March 18, 2018. Her pre-albumin was 7.9. Encourage nutritional supplementation with protein to help the healing process. Dr. Martinez has discussed in previous visits about possible skin grafting if there is a plateau in healing process. Prior to any grafting procedure, we would need to check it HgA1c which needs to be below 8 for elective procedure. We will also reculture the wounds before any skin grafting would be done. Her last HGBA1c was 11.3 in 12/08.
== END 2018-05-22 23:59 ==
LOC: WC 13:58
PROVIDERS: Family Provider Family Medicine; PCP Family Medicine; Visit Provider Surgery
DX: E11.622 Type 2 diabetes mellitus with other skin ulcer (principal); L97.822 Non-pressure chronic ulcer of other part of left lower leg with fat layer exposed; L97.812 Non-pressure chronic ulcer of other part of right lower leg with fat layer exposed; I89.0 Lymphedema, not elsewhere classified; E66.01 Morbid (severe) obesity due to excess calories; Z68.43 Body mass index [BMI] 50.0-59.9, adult; Z71.3 Dietary counseling and surveillance; Z86.14 Personal history of Methicillin resistant Staphylococcus aureus infection; I11.0 Hypertensive heart disease with heart failure; I50.32 Chronic diastolic (congestive) heart failure; I48.2 Chronic atrial fibrillation; E11.22 Type 2 diabetes mellitus with diabetic chronic kidney disease; I27.20 Pulmonary hypertension, unspecified; Z79.899 Other long term (current) drug therapy; Z87.891 Personal history of nicotine dependence; E11.51 Type 2 diabetes mellitus with diabetic peripheral angiopathy without gangrene
CPT/HCPCS: 11042; 11045; 99213; G0463

== ENCOUNTER 2018-06-07 11:39 | Outpatient (RCR) | payer OTHER, SELFPAY ==
[2018-05-23 01:06] VITALS: BP 108/67; PULSE 78; RESP 20; TEMP 37.3
--- NOTE | 2018-06-07 13:04 | VDLE_ITS ---
Reason For Study: Non-healing wounds RIGHT LEFT GSV is normal. GSV is normal. CFV is compressible, spontaneous, phasic, CFV is compressible, spontaneous, phasic, competent and demonstrates normal competent, and demonstrates normal augmentation. augmentation. FV is compressible, spontaneous, phasic, FV is compressible, spontaneous, phasic, competent and demonstrates normal competent and demonstrates normal augmentation. augmentation. POP V is compressible, spontaneous, phasic, POP V is compressible, spontaneous, phasic, competent and demonstrates normal competent and demonstrates normal augmentation. augmentation. SFJ is competent T/P Trunk is compressible. GSV competent SFJ is competent SSV competent. GSV is competent Procedure SSV is competent. Exam performed in department. Technically very limited due to body habitus. A preliminary report was called and/or faxed to [facility]. Interpretation Summary Deep veins of the lower extremities are bilaterally patent and compressible segmentally. There is no evidence of deep vein thrombosis on either side. Valvular competence appears intact within the proximal deep venous systems bilaterally. The greater saphenous veins appear bilaterally patent and compressible segmentally. Sapheno-femoral junctions are bilaterally competent . Valvular competence appears to be intact segmentally within the greater saphenous veins bilaterally. Small saphenous veins are patent and competent bilaterally. The deep veins of the calf were not visualized on either side due to the patient's body habitus. Ordering Physician: Alejo Martinez Referring Physician: Alejo Martinez Performed By: Breana Goldberg RVT
[2018-06-07 15:02] VITALS: BP 145/88; PULSE 105; RESP 24; TEMP 37.2
--- NOTE | 2018-06-09 09:39 | PCM.WC.PN ---
(1) Ulcer of right lower extremity with fat layer exposed Status: Chronic Current Visit: Yes Code(s): L97.912 - Non-pressure chronic ulcer of unspecified part of right lower leg with fat layer exposed (2) Ulcer of left lower extremity with fat layer exposed Status: Chronic Current Visit: Yes Code(s): L97.922 - Non-pressure chronic ulcer of unspecified part of left lower leg with fat layer exposed (3) Type 2 diabetes mellitus Status: Chronic Current Visit: Yes Code(s): E11.9 - Type 2 diabetes mellitus without complications (4) Chronic acquired lymphedema Status: Chronic Current Visit: Yes Code(s): I89.0 - Lymphedema, not elsewhere classified (5) Morbid obesity Status: Chronic Current Visit: Yes Code(s): E66.01 - Morbid (severe) obesity due to excess calories (6) Venous insufficiency of both lower extremities Status: Chronic Current Visit: Yes Code(s): I87.2 - Venous insufficiency (chronic) (peripheral) (7) Chronic anticoagulation Status: Chronic Current Visit: No Code(s): Z79.01 - terminal gauger (current) use of anticoagulants (8) Hx MRSA infection Status: Chronic Current Visit: No Code(s): Z86.14 - Personal history of Methicillin resistant Staphylococcus aureus infection Type of Wound Date of Service: 06/07/18 Chief Complaint: Nonhealing ulcers right lateral lower leg and left lateral lower leg status post surgical debridement November 2017. History of Wound: Surgery 12/09/17 - 1. Surgical preparation right posterior leg with incision and drainage and excisional debridement nonhealing infected MRSA ulcer abscess (264 cm2). 2. Surgical preparation right posterior thigh with incision and drainage and excisional debridement nonhealing infected MRSA ulcer abscess (112 cm2). 3. Surgical preparation left posterior leg with incision and drainage and excisional debridement nonhealing infected MRSA ulcer abscess (216 cm2). 4. Surgical preparation right lateral ankle with incision and drainage and excisional debridement nonhealing infected MRSA ulcer abscess (4 cm2). 5. Surgical preparation left medial ankle with incision and drainage and excisional debridement nonhealing infected MRSA ulcer abscess (4 cm2). Wound care changed from silver to Santyl. Operative culture - Proteus mirabilis, STreptococcus agalactiae, MRSA, anaerobic cocci, Corynebacterium minute SMM. She was treated with vancomycin, ceftriaxone, and Flagyl. Wound culture later on 01/07 showed Pseudomonas organism and was considered a surface contaminant. Pre-albumin at that time was 7.9. The patient was encouraged nutritional supplementation with protein to help with the healing process A1c was 11.3. The patient has not followed up since February 2018 and now presents to the wound healing center with complaints as above. Some of her previous wounds have healed however she continues to have the left and right lower extremity nonhealing ulcers. She denies any systemic signs of infection and denies any purulent drainage, pain at the ulcers, or other complaints. She does complain of having significant bilateral lower extremity edema. She otherwise denies any fever, chills, nausea, vomiting, shortness of breath, chest pain or pressure, syncope or presyncopal episodes. Progress of Wound: Mild improvement. - Physical Exam Vital Signs Temp Pulse Resp BP 98.9 F 105 H 24 H 145/88 H 06/07/18 15:02 06/07/18 15:02 06/07/18 15:02 06/07/18 15:02 General: Alert, Oriented x3, Cooperative HEENT: Atraumatic Extremities: Diminished Peripheral Pulses, Edema Skin: Ulcer/ Wound - Bilateral lateral lower extremity opened areas that appear fairly clean considering it has been a month since she has been in the wound center. Wound Measurements and Assessment WC - Nurse 1 - General Ulcer Measurement Start: 06/07/18 14:56 Freq: Status: Active Protocol: Activity Type Activity Date Activity User E-Sign Co-Sign Detail Recorded Client Recorded Date Recorded By Document 06/07/18 15:02 [id number] 06/07/18 15:05 06/07/18 15:02 Wound Center Nurse 1 [Ulcer Assessment] #6 LEFT LATERAL LEG -Combined with other wound No -Current Size (cm) - Length 11.4 -Current Size (cm) - Width 3.6 -Current Size (cm) - Depth 0.1 -Total Square Cm 41.04 -Photo Taken No -Epithelialization Small 1-33% -Tunneling No -Undermining/Tunneling No -Circular Undermining No -Classification - Thickness Full Thickness without Exposed Support Structure -Exudate Amt Large (67-100%) -Exudate Type Serosanguineous -Wound Margin Distinct, Outline Attached -Granulation Amt Large (67-100%) -Granulation Quality Red -Slough/Fibrin Yes -Necrosis Amt Small (1-33%) -Necrotic Tissue Type Adherent Slough -Structure Exposed Fascia Fat Layer Exposed -Texture (Airam-wound Skin Appearance) Assessed Friable Localized Edema Scarring -Moisture (Airam-wound Skin Appearance No Abnormality ) Assessed -Color (Airam-wound Skin Appearance) Assessed Erythema Hemosiderin Staining -Temperature (Airam-wound Skin No Abnormality Appearance) (Pt Warm) -Tenderness on Palpation (Airam-wound No Skin Appearance) -Ulcer Cleansing Rinsed/ Irrigated with Saline -Foul Odor after Cleansing No -Anesthetic Used 4% Lidocaine Solution 5% Lidocaine Gel #5 RIGHT LATERAL LEG -Combined with other wound No -Current Size (cm) - Length 10.3 -Current Size (cm) - Width 7.6 -Current Size (cm) - Depth 0.1 -Total Square Cm 78.28 -Photo Taken No -Epithelialization Small 1-33% -Tunneling No -Undermining/Tunneling No -Circular Undermining No -Classification - Thickness Full Thickness without Exposed Support Structure -Exudate Amt Large (67-100%) -Exudate Type Serosanguineous -Wound Margin Distinct, Outline Attached -Granulation Amt Large (67-100%) -Granulation Quality Red -Slough/Fibrin Yes -Necrosis Amt Small (1-33%) -Necrotic Tissue Type Adherent Slough -Structure Exposed Fascia Fat Layer Exposed -Texture (Airam-wound Skin Appearance) Assessed Friable Localized Edema Scarring -Moisture (Airam-wound Skin Appearance No Abnormality ) Assessed -Color (Airam-wound Skin Appearance) Assessed Erythema Hemosiderin Staining -Ulcer Cleansing Rinsed/ Irrigated with Saline -Foul Odor after Cleansing No -Anesthetic Used 4% Lidocaine Solution 5% Lidocaine Gel [Edema Assessment] -Lower Limb Edema Present Yes -Right Calf (cm) 56.0 -Right Ankle (cm) 41.0 -Left Calf (cm) 57.0 -Left Ankle (cm) 43.0 WC - Nurse 2 - General Ulcer CM Notes Start: 06/07/18 14:56 Freq: Status: Active Protocol: Activity Type Activity Date Activity User E-Sign Co-Sign Detail Recorded Client Recorded Date Recorded By Document 06/07/18 15:43 CRISTINA [id number] 06/07/18 15:44 CRISTINA 06/07/18 15:43 Wound Center Nurse 2 [Procedure/Treatment] #6 LEFT LATERAL LEG -Time 15:43 -Correct Patient Yes -Correct Side, Site, Position Yes -Correct Procedure Yes -Procedure Performed Yes -Type of Procedure Debridement -Clinical Debridement Subcutaneous -Post Debridement Size (cm) - Length 17 -Post Debridement Size (cm) - Width 3.3 -Post Debridement Size (cm) - Depth 0.2 -Total Square Cm 56.1 -Wound/Ulcer Outcome Not Healed -Ulcer Cleansing Rinsed/ Irrigated with Saline -Foul Odor after Cleansing No -Bioengineered Tissue No -Bleeding Controlled with Pressure -Treatment Response Procedure Tolerated Well #5 RIGHT LATERAL LEG -Time 15:43 -Correct Patient Yes -Correct Side, Site, Position Yes -Correct Procedure Yes -Procedure Performed Yes -Type of Procedure Debridement -Clinical Debridement Subcutaneous -Post Debridement Size (cm) - Length 12.0 -Post Debridement Size (cm) - Width 5 -Post Debridement Size (cm) - Depth 0.3 -Total Square Cm 60.0 -Wound/Ulcer Outcome Not Healed -Ulcer Cleansing Rinsed/ Irrigated with Saline -Foul Odor after Cleansing No -Bioengineered Tissue No -Bleeding Controlled with Pressure -Treatment Response Procedure Tolerated Well [See Physician Procedure note for Specifics] Pain Scale: 0-10 Numeric [Pain] -Is Patient Pain Free? Yes Musculoskeletal: No Muscle Wasting Neurological: Neuro grossly intact Psych/Mental Status: Normal Affect Debridement Note Post-Debridement Measurements/Treatment WC - Nurse 2 - General Ulcer CM Notes Start: 06/07/18 14:56 Freq: Status: Active Protocol: Activity Type Activity Date Activity User E-Sign Co-Sign Detail Recorded Client Recorded Date Recorded By Document 06/07/18 15:43 [id number] 06/07/18 15:44 06/07/18 15:43 Wound Center Nurse 2 #6 LEFT LATERAL LEG -Time 15:43 -Correct Patient Yes -Correct Side, Site, Position Yes -Correct Procedure Yes -Procedure Performed Yes -Type of Procedure Debridement -Clinical Debridement Subcutaneous -Post Debridement Size (cm) - Length 17 -Post Debridement Size (cm) - Width 3.3 -Post Debridement Size (cm) - Depth 0.2 -Total Square Cm 56.1 -Wound/Ulcer Outcome Not Healed -Ulcer Cleansing Rinsed/ Irrigated with Saline -Foul Odor after Cleansing No -Bioengineered Tissue No -Bleeding Controlled with Pressure -Treatment Response Procedure Tolerated Well #5 RIGHT LATERAL LEG -Time 15:43 -Correct Patient Yes -Correct Side, Site, Position Yes -Correct Procedure Yes -Procedure Performed Yes -Type of Procedure Debridement -Clinical Debridement Subcutaneous -Post Debridement Size (cm) - Length 12.0 -Post Debridement Size (cm) - Width 5 -Post Debridement Size (cm) - Depth 0.3 -Total Square Cm 60.0 -Wound/Ulcer Outcome Not Healed -Ulcer Cleansing Rinsed/ Irrigated with Saline -Foul Odor after Cleansing No -Bioengineered Tissue No -Bleeding Controlled with Pressure -Treatment Response Procedure Tolerated Well Pain Scale: 0-10 Numeric Is Patient Pain Free? Yes Wound debrided: Right lower lateral leg Laterality: Right Type of Debridement: Excisional debridement Anesthesia Used: 4% Lidocaine Solution Depth: Down to and including healthy tissue, in the subcutaneous layer Percentage of wound debrided: 100 Instrument Used: 7mm curette Tissue Removed: Subcutaneous tissue and slough Severity: Fat Layer Exposed Amount of bleeding with debridement: Mild Bleeding Controlled with: Pressure Patient tolerated procedure well - Additional Wound Wound debrided: Left lower lateral leg Laterality: Left Type of Debridement: Excisional debridement Anesthesia Used: 4% Lidocaine Solution Depth: Down to and including healthy tissue, in the subcutaneous layer Percentage of wound debrided: 100 Instrument Used: 7mm curette Tissue Removed: Subcutaneous tissue and slough. Severity: Fat Layer Exposed Amount of bleeding with debridement: Mild Bleeding Controlled with: Pressure Patient tolerated procedure: Patient tolerated procedure well Assessment/Plan Active Problems (Last Updated 12/07/17 @ 09:05 by Thomas Carrasco MD) Ulcer of right lower extremity with fat layer exposed (Chronic) Ulcer of left lower extremity with fat layer exposed (Chronic) Venous insufficiency of both lower extremities (Chronic) Chronic acquired lymphedema (Chronic) Morbid obesity (Chronic) Type 2 diabetes mellitus (Chronic) Assessment: 1 Nonhealing ulcer right lateral posterior leg. 2. Nonhealing ulcer left lateral posterior leg. 3. Diabetes mellitus. 4. Chronic venous insufficiency with venous stasis disease. 5. History of MRSA. 6. Obesity. 7. Atrial fibrillation on Coumadin. 8. Status post surgical preparation right posterior leg with incision and drainage and excisional debridement nonhealing infected MRSA ulcer abscess (264 cm2) and surgical preparation right posterior thigh with incision and drainage and excisional debridement nonhealing infected MRSA ulcer abscess 9112 cm2) and surgical preparation left posterior leg with incision and drainage and excisional debridement nonhealing infected MRSA ulcer abscess (216 cm2) and surgical preparation right lateral ankle with incision and drainage and excisional debridement nonhealing infected MRSA ulcer abscess(4 cm2) and surgical preparation left medial ankle with incision and drainage and excisional debridement nonhealing infected MRSA ulcer abscess(4 cm2). All wounds are healed except for the right lateral lower extremity and the left lower lateral extremity. Plan: We will continue Santyl daily. 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 Will apply Hussein wraps to bilateral lower extremities. She has been using compression stockings 15-20 mmHg that she has at home but did not wear them here today. Encouraged to elevate legs for at least 30 minutes 3 times a day. Increase home health to 2 visits a week. Will follow up in wound center 2 weeks (because patient states that she can not come every week). She was treated for positive all operative cultures 12/08 with Vancomycin, Ceftriaxone and Flagyl. She left the [facility] March 18, 2018. Her pre-albumin was 7.9. Encourage nutritional supplementation with protein to help the healing process. Dr. Martinez has discussed in previous visits about possible skin grafting if there is a plateau in healing process. Prior to any grafting procedure, we would need to check it HgA1c which needs to be below 8 for elective procedure. We will also reculture the wounds before any skin grafting would be done. Her last HGBA1c was 11.3 in 12/08. Code Visit [id number]: 09854 Naima subq tissue 20 sq cm/< Add On Codes: 43994 Naima subq tissue add-on - x 5
--- NOTE | 2018-06-12 10:49 | LEAS ---
Arterial Study - Arterial Study Arterial Study: This is a 56-year-old female with a history of congestive heart failure, atrial fibrillation, hypertension, obstructive sleep apnea, pulmonary hypertension, diabetes mellitus, and morbid obesity. The patient presents with a chronic nonhealing wound to the lower extremity. Suspecting the presence of atherosclerotic peripheral arterial occlusive disease, the patient was brought to the noninvasive vascular laboratory at this time for the purpose of bilateral noninvasive lower extremity arterial assessment. Doppler signal assessment was used to evaluate the pulses at ankle level bilaterally. Posterior tibial and dorsalis pedis waveforms were biphasic bilaterally. Segmental limb pressures were obtained bilaterally. Ankle pressures, as determined by posterior tibial and dorsalis pedis pulses, could not be determined on either side due to the noncompressibility of the vasculature. The right digital pressure was measured at 152 mmHg. The left digital pressure was measured at 136 mmHg. Pulse?volume recordings were obtained at ankle and digital levels bilaterally. Waveform amplitudes appeared to be generally satisfactory bilaterally. Resting ankle?brachial indices could not be determined on either side due to the noncompressibility of the vasculature. Digital?brachial indices were calculated bilaterally. The right digital-brachial index was calculated to be 1.19. The left digital-brachial index was calculated to be 1.06. Impression: Based upon the findings of this resting noninvasive lower extremity arterial study, the arterial tree at ankle level is bilaterally noncompressible. This may be due to morbid obesity, or perhaps arterial calcification. In this regard, clinical correlation is advised. Nonetheless, ankle?brachial indices could not be calculated on either side. Digital-brachial indices are bilaterally normal, which suggests relatively normal arterial flow at digital level bilaterally. Therefore, there is no specific indication of arterial occlusive disease in the lower extremities bilaterally. However, clinical correlation is recommended.
--- NOTE | 2018-06-12 10:56 | LEAS_ITS ---
Arterial Study - Arterial Study Arterial Study: This is a 56-year-old female with a history of congestive heart failure, atrial fibrillation, hypertension, obstructive sleep apnea, pulmonary hypertension, diabetes mellitus, and morbid obesity. The patient presents with a chronic nonhealing wound to the lower extremity. Suspecting the presence of atherosclerotic peripheral arterial occlusive disease, the patient was brought to the noninvasive vascular laboratory at this time for the purpose of bilateral noninvasive lower extremity arterial assessment. Doppler signal assessment was used to evaluate the pulses at ankle level bilaterally. Posterior tibial and dorsalis pedis waveforms were biphasic bilaterally. Segmental limb pressures were obtained bilaterally. Ankle pressures, as determined by posterior tibial and dorsalis pedis pulses, could not be determined on either side due to the noncompressibility of the vasculature. The right digital pressure was measured at 152 mmHg. The left digital pressure was measured at 136 mmHg. Pulse?volume recordings were obtained at ankle and digital levels bilaterally. Waveform amplitudes appeared to be generally satisfactory bilaterally. Resting ankle?brachial indices could not be determined on either side due to the noncompressibility of the vasculature. Digital?brachial indices were calculated bilaterally. The right digital- brachial index was calculated to be 1.19. The left digital-brachial index was calculated to be 1.06. Impression: Based upon the findings of this resting noninvasive lower extremity arterial study, the arterial tree at ankle level is bilaterally noncompressible. This may be due to morbid obesity, or perhaps arterial calcification. In this regard, clinical correlation is advised. Nonetheless, ankle?brachial indices could not be calculated on either side. Digital-brachial indices are bilaterally normal, which suggests relatively normal arterial flow at digital level bilaterally. Therefore, there is no specific indication of arterial occlusive disease in the lower extremities bilaterally. However, clinical johanna elation is recommended.
== END 2018-06-22 23:59 ==
LOC: WC 11:39
PROVIDERS: Family Provider Family Medicine; PCP Family Medicine; Referring Provider Surgery; Visit Provider Surgery
DX: E11.622 Type 2 diabetes mellitus with other skin ulcer (principal); L97.812 Non-pressure chronic ulcer of other part of right lower leg with fat layer exposed; L97.822 Non-pressure chronic ulcer of other part of left lower leg with fat layer exposed; I89.0 Lymphedema, not elsewhere classified; E66.01 Morbid (severe) obesity due to excess calories; Z68.43 Body mass index [BMI] 50.0-59.9, adult; Z71.3 Dietary counseling and surveillance; Z86.14 Personal history of Methicillin resistant Staphylococcus aureus infection; Z79.01 Long term (current) use of anticoagulants; I87.2 Venous insufficiency (chronic) (peripheral); E11.51 Type 2 diabetes mellitus with diabetic peripheral angiopathy without gangrene; I50.9 Heart failure, unspecified; G47.33 Obstructive sleep apnea (adult) (pediatric); I48.91 Unspecified atrial fibrillation; I11.0 Hypertensive heart disease with heart failure; R60.0 Localized edema
CPT/HCPCS: 11042; 11045; 93923; 93970

== ENCOUNTER 2018-07-05 09:12 | Outpatient (RCR) | payer OTHER, SELFPAY ==
[2018-06-23 01:09] VITALS: BP 145/88; PULSE 105; RESP 24; TEMP 37.2
[2018-07-05 13:49] VITALS: BP 112/80; PULSE 120; RESP 18; TEMP 36.9
--- NOTE | 2018-07-05 17:55 | PCM.WC.PN ---
(1) Ulcer of right lower extremity with fat layer exposed Status: Chronic Current Visit: Yes Code(s): L97.912 - Non-pressure chronic ulcer of unspecified part of right lower leg with fat layer exposed (2) Ulcer of left lower extremity with fat layer exposed Status: Chronic Current Visit: Yes Code(s): L97.922 - Non-pressure chronic ulcer of unspecified part of left lower leg with fat layer exposed (3) Venous insufficiency of both lower extremities Status: Chronic Current Visit: Yes Code(s): I87.2 - Venous insufficiency (chronic) (peripheral) (4) Hx MRSA infection Status: Chronic Current Visit: No Code(s): Z86.14 - Personal history of Methicillin resistant Staphylococcus aureus infection (5) Chronic acquired lymphedema Status: Chronic Current Visit: Yes Code(s): I89.0 - Lymphedema, not elsewhere classified (6) Nonhealing ulcer of multiple sites of left lower extremity with fat layer exposed Status: Chronic Current Visit: Yes Code(s): L97.922 - Non-pressure chronic ulcer of unspecified part of left lower leg with fat layer exposed (7) Morbid obesity Status: Chronic Current Visit: No Code(s): E66.01 - Morbid (severe) obesity due to excess calories (8) Chronic atrial fibrillation Status: Chronic Current Visit: No Code(s): I48.2 - Chronic atrial fibrillation (9) Type 2 diabetes mellitus Status: Chronic Current Visit: No Code(s): E11.9 - Type 2 diabetes mellitus without complications Type of Wound Date of Service: 07/05/18 Chief Complaint: Nonhealing ulcers right lateral lower leg and left lateral lower leg status post surgical debridement November 2017. History of Wound: Surgery 12/09/17 - 1. Surgical preparation right posterior leg with incision and drainage and excisional debridement nonhealing infected MRSA ulcer abscess (264 cm2). 2. Surgical preparation right posterior thigh with incision and drainage and excisional debridement nonhealing infected MRSA ulcer abscess (112 cm2). 3. Surgical preparation left posterior leg with incision and drainage and excisional debridement nonhealing infected MRSA ulcer abscess (216 cm2). 4. Surgical preparation right lateral ankle with incision and drainage and excisional debridement nonhealing infected MRSA ulcer abscess (4 cm2). 5. Surgical preparation left medial ankle with incision and drainage and excisional debridement nonhealing infected MRSA ulcer abscess (4 cm2). Wound care changed from silver to Santyl. Operative culture - Proteus mirabilis, STreptococcus agalactiae, MRSA, anaerobic cocci, Corynebacterium minute SMM. She was treated with vancomycin, ceftriaxone, and Flagyl. Wound culture later on 01/07 showed Pseudomonas organism and was considered a surface contaminant. Pre-albumin at that time was 7.9. The patient was encouraged nutritional supplementation with protein to help with the healing process A1c was 11.3. The patient has not followed up since February 2018 and now presents to the wound healing center with complaints as above. Some of her previous wounds have healed however she continues to have the left and right lower extremity nonhealing ulcers. She denies any systemic signs of infection and denies any purulent drainage, pain at the ulcers, or other complaints. She does complain of having significant bilateral lower extremity edema. She otherwise denies any fever, chills, nausea, vomiting, shortness of breath, chest pain or pressure, syncope or presyncopal episodes. Progress of Wound: No improvement. - Physical Exam Vital Signs Temp Pulse Resp BP 98.4 F 120 H 18 112/80 07/05/18 13:49 07/05/18 13:49 07/05/18 13:49 07/05/18 13:49 General: Alert, Oriented x3, Cooperative Lungs: Normal air movement Cardiovascular: Regular rate Extremities: Diminished Peripheral Pulses, Edema - Significant amount of lower extremity edema and lymphadema. +3 pitting edema Skin: Ulcer/ Wound - Right lateral lower lower leg, Left lateral lower leg and left anterior lower leg. Wound Measurements and Assessment WC - Nurse 1 - General Ulcer Measurement Start: 07/05/18 13:49 Freq: Status: Active Protocol: Activity Type Activity Date Activity User E-Sign Co-Sign Detail Recorded Client Recorded Date Recorded By Document 07/05/18 13:49 ND [id number] 07/05/18 14:13 ND 07/05/18 13:49 Wound Center Nurse 1 [Ulcer Assessment] #6 LEFT LATERAL LEG -Combined with other wound No -Current Size (cm) - Length 16.5 -Current Size (cm) - Width 4.0 -Current Size (cm) - Depth 0.2 -Total Square Cm 66.00 -Date of Last Picture (Recall this 07/05/18 field) -Photo Taken Yes -Undermining/Tunneling No -Circular Undermining No -Exudate Amt Large (67-100%) -Exudate Type Serosanguineous -Wound Margin Thickened & Rolled Under -Granulation Amt Medium (34-66%) -Granulation Quality [place] -Necrosis Amt Medium (34-66%) -Necrotic Tissue Type Adherent Slough -Texture (Airam-wound Skin Appearance) Assessed Localized Edema -Moisture (Airam-wound Skin Appearance Assessed ) Maceration Weeping -Color (Airam-wound Skin Appearance) Assessed Palor -Temperature (Airam-wound Skin No Abnormality Appearance) (Pt Warm) -Tenderness on Palpation (Airam-wound No Skin Appearance) -Ulcer Cleansing Rinsed/ Irrigated with Saline -Foul Odor after Cleansing Yes -Anesthetic Used 5% Lidocaine Gel #5 RIGHT LATERAL LEG -Combined with other wound No -Current Size (cm) - Length 11.8 -Current Size (cm) - Width 6.0 -Current Size (cm) - Depth 0.1 -Total Square Cm 70.80 -Date of Last Picture (Recall this 07/05/18 field) -Photo Taken Yes -Tunneling No -Undermining/Tunneling No -Circular Undermining No -Exudate Amt Medium (34-66%) -Exudate Type Serosanguineous -Wound Margin Thickened & Rolled Under -Granulation Amt Medium (34-66%) -Granulation Quality [place] -Necrosis Amt Medium (34-66%) -Necrotic Tissue Type Adherent Slough -Texture (Airam-wound Skin Appearance) Assessed Localized Edema -Moisture (Airam-wound Skin Appearance Assessed ) Maceration Weeping -Color (Airam-wound Skin Appearance) Assessed Erythema Palor -Temperature (Airam-wound Skin No Abnormality Appearance) (Pt Warm) -Tenderness on Palpation (Airam-wound No Skin Appearance) -Ulcer Cleansing Rinsed/ Irrigated with Saline -Foul Odor after Cleansing Yes -Anesthetic Used 5% Lidocaine Gel #1- LT MEDIAL ANKLE -Combined with other wound No -Current Size (cm) - Length 1.0 -Current Size (cm) - Width 2.0 -Current Size (cm) - Depth 0.1 -Total Square Cm 2.00 -Date of Last Picture (Recall this 07/05/18 field) -Photo Taken Yes -Epithelialization Medium 34-66% -Tunneling No -Undermining/Tunneling No -Circular Undermining No -Exudate Amt Small (1-33%) -Exudate Type Serosanguineous -Wound Margin Flat & Intact -Granulation Amt Large (67-100%) -Granulation Quality [place] -Necrosis Amt None Present (0 %) -Texture (Airam-wound Skin Appearance) Assessed -Moisture (Airam-wound Skin Appearance Assessed ) Maceration -Color (Airam-wound Skin Appearance) Assessed Palor -Temperature (Airam-wound Skin No Abnormality Appearance) (Pt Warm) -Tenderness on Palpation (Airam-wound No Skin Appearance) -Ulcer Cleansing Rinsed/ Irrigated with Saline -Foul Odor after Cleansing Yes -Anesthetic Used 5% Lidocaine Gel [Edema Assessment] -Lower Limb Edema Present Yes -Right Calf (cm) 68.0 -Right Ankle (cm) 39.0 -Left Calf (cm) 72.0 -Left Ankle (cm) 41.0 WC - Nurse 2 - General Ulcer CM Notes Start: 07/05/18 13:49 Freq: Status: Active Protocol: Activity Type Activity Date Activity User E-Sign Co-Sign Detail Recorded Client Recorded Date Recorded By Document 07/05/18 14:27 [id number] 07/05/18 14:35 07/05/18 14:27 Wound Center Nurse 2 [Procedure/Treatment] #6 LEFT LATERAL LEG -Time 14:27 -Correct Patient Yes -Correct Side, Site, Position Yes -Correct Procedure Yes -Procedure Performed Yes -Type of Procedure Debridement -Clinical Debridement Subcutaneous -Post Debridement Size (cm) - Length 17.4 -Post Debridement Size (cm) - Width 3.5 -Post Debridement Size (cm) - Depth 0.5 -Total Square Cm 60.90 -Wound/Ulcer Outcome Not Healed -Ulcer Cleansing Rinsed/ Irrigated with Saline -Foul Odor after Cleansing No -Bioengineered Tissue No -Bleeding Controlled with Pressure -Treatment Response Procedure Tolerated Well #5 RIGHT LATERAL LEG -Time 14:28 -Correct Patient Yes -Correct Side, Site, Position Yes -Correct Procedure Yes -Procedure Performed Yes -Type of Procedure Debridement -Clinical Debridement Subcutaneous -Post Debridement Size (cm) - Length 9.0 -Post Debridement Size (cm) - Width 5 -Post Debridement Size (cm) - Depth 0.2 -Total Square Cm 45.0 -Wound/Ulcer Outcome Not Healed -Ulcer Cleansing Rinsed/ Irrigated with Saline -Foul Odor after Cleansing No -Bioengineered Tissue No -Bleeding Controlled with Pressure -Treatment Response Procedure Tolerated Well #1- LT MEDIAL ANKLE -Time 14:28 -Correct Patient Yes -Correct Side, Site, Position Yes -Correct Procedure Yes -Procedure Performed Yes -Type of Procedure Debridement -Clinical Debridement Subcutaneous -Post Debridement Size (cm) - Length 1.2 -Post Debridement Size (cm) - Width 2.0 -Post Debridement Size (cm) - Depth 0.1 -Total Square Cm 2.40 -Wound/Ulcer Outcome Not Healed -Ulcer Cleansing Rinsed/ Irrigated with Saline -Foul Odor after Cleansing No -Bioengineered Tissue No -Bleeding Controlled with Pressure -Treatment Response Procedure Tolerated Well [See Physician Procedure note for Specifics] Pain Scale: 0-10 Numeric [Pain] -Is Patient Pain Free? Yes Musculoskeletal: No Tenderness to Palpation of Joints or Extremities Neurological: Neuro grossly intact Psych/Mental Status: Normal Affect, Appropriate Debridement Note Post-Debridement Measurements/Treatment WC - Nurse 2 - General Ulcer CM Notes Start: 07/05/18 13:49 Freq: Status: Active Protocol: Activity Type Activity Date Activity User E-Sign Co-Sign Detail Recorded Client Recorded Date Recorded By Document 07/05/18 14:27 [id number] 07/05/18 14:35 07/05/18 14:27 Wound Center Nurse 2 #6 LEFT LATERAL LEG -Time 14:27 -Correct Patient Yes -Correct Side, Site, Position Yes -Correct Procedure Yes -Procedure Performed Yes -Type of Procedure Debridement -Clinical Debridement Subcutaneous -Post Debridement Size (cm) - Length 17.4 -Post Debridement Size (cm) - Width 3.5 -Post Debridement Size (cm) - Depth 0.5 -Total Square Cm 60.90 -Wound/Ulcer Outcome Not Healed -Ulcer Cleansing Rinsed/ Irrigated with Saline -Foul Odor after Cleansing No -Bioengineered Tissue No -Bleeding Controlled with Pressure -Treatment Response Procedure Tolerated Well #5 RIGHT LATERAL LEG -Time 14:28 -Correct Patient Yes -Correct Side, Site, Position Yes -Correct Procedure Yes -Procedure Performed Yes -Type of Procedure Debridement -Clinical Debridement Subcutaneous -Post Debridement Size (cm) - Length 9.0 -Post Debridement Size (cm) - Width 5 -Post Debridement Size (cm) - Depth 0.2 -Total Square Cm 45.0 -Wound/Ulcer Outcome Not Healed -Ulcer Cleansing Rinsed/ Irrigated with Saline -Foul Odor after Cleansing No -Bioengineered Tissue No -Bleeding Controlled with Pressure -Treatment Response Procedure Tolerated Well #1- LT MEDIAL ANKLE -Time 14:28 -Correct Patient Yes -Correct Side, Site, Position Yes -Correct Procedure Yes -Procedure Performed Yes -Type of Procedure Debridement -Clinical Debridement Subcutaneous -Post Debridement Size (cm) - Length 1.2 -Post Debridement Size (cm) - Width 2.0 -Post Debridement Size (cm) - Depth 0.1 -Total Square Cm 2.40 -Wound/Ulcer Outcome Not Healed -Ulcer Cleansing Rinsed/ Irrigated with Saline -Foul Odor after Cleansing No -Bioengineered Tissue No -Bleeding Controlled with Pressure -Treatment Response Procedure Tolerated Well Pain Scale: 0-10 Numeric Is Patient Pain Free? Yes Wound debrided: Right lateral lower leg. Laterality: Right Type of Debridement: Excisional debridement Anesthesia Used: 4% Lidocaine Solution Depth: Down to and including healthy tissue, in the subcutaneous layer Percentage of wound debrided: 100 Instrument Used: 3mm curette Tissue Removed: Subcutaneous tissue and slough Severity: Fat Layer Exposed Amount of bleeding with debridement: Mild Bleeding Controlled with: Pressure Patient tolerated procedure well - Additional Wound Wound debrided: Left lateral lower leg Laterality: Left Type of Debridement: Excisional debridement Anesthesia Used: 4% Lidocaine Solution Depth: Down to and including healthy tissue, in the subcutaneous layer Percentage of wound debrided: 100 Instrument Used: 3mm curette Tissue Removed: Subcutaneous tissue and slough Severity: Fat Layer Exposed Amount of bleeding with debridement: Mild Bleeding Controlled with: Pressure Patient tolerated procedure: Patient tolerated procedure well - Additional Wound Wound debrided: left anterior lower leg Laterality: Left Type of Debridement: Excisional debridement Anesthesia Used: 4% Lidocaine Solution Depth: Down to and including healthy tissue, in the subcutaneous layer Percentage of wound debrided: 100 Instrument Used: 3mm curette Tissue Removed: Subcutaneous tissue and slough Severity: Fat Layer Exposed Amount of bleeding with debridement: Mild Bleeding Controlled with: Pressure Patient tolerated procedure: Patient tolerated procedure well Assessment/Plan Active Problems (Last Updated 12/07/17 @ 09:05 by Thomas Carrasco MD) Ulcer of right lower extremity with fat layer exposed (Chronic) Ulcer of left lower extremity with fat layer exposed (Chronic) Venous insufficiency of both lower extremities (Chronic) Chronic acquired lymphedema (Chronic) Nonhealing ulcer of multiple sites of left lower extremity with fat layer exposed (Chronic) Assessment: 1 Nonhealing ulcer right lateral posterior leg. 2. Nonhealing ulcer left lateral posterior leg. 3. Diabetes mellitus. 4. Chronic venous insufficiency with venous stasis disease. 5. History of MRSA. 6. Obesity. 7. Atrial fibrillation on Coumadin. 8. Status post surgical preparation right posterior leg with incision and drainage and excisional debridement nonhealing infected MRSA ulcer abscess (264 cm2) and surgical preparation right posterior thigh with incision and drainage and excisional debridement nonhealing infected MRSA ulcer abscess 9112 cm2) and surgical preparation left posterior leg with incision and drainage and excisional debridement nonhealing infected MRSA ulcer abscess (216 cm2) and surgical preparation right lateral ankle with incision and drainage and excisional debridement nonhealing infected MRSA ulcer abscess(4 cm2) and surgical preparation left medial ankle with incision and drainage and excisional debridement nonhealing infected MRSA ulcer abscess(4 cm2). All wounds are healed except for the right lateral lower extremity and the left lower lateral extremity. Plan: We will continue Santyl daily. She is not able to come in weekly for debridement which would be most beneficial to her. Today on her left lateral lower leg had a 5 mm hard yellow object that was imbedded in the center of the opened area. Easily able to remove it, but it did leave a significant indentation. Believe it may be a corn kernal. 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 Continue to apply Hussein wraps to bilateral lower extremities. She has been using compression stockings 15-20 mmHg that she has at home but did not wear them here today. With the amount of edema she has, I suspect she may be non compliant with wearing them. Stressed importance of compression. Encouraged to elevate legs for at least 30 minutes 3 times a day. Increase home health to 2 visits a week. Will follow up in wound center 2 weeks (because patient states that she can not come every week). She was treated for positive all operative cultures 12/08 with Vancomycin, Ceftriaxone and Flagyl. She left the [facility] March 18, 2018. Her pre-albumin was 7.9. Encourage nutritional supplementation with protein to help the healing process. Dr. Martinez has discussed in previous visits about possible skin grafting if there is a plateau in healing process. Prior to any grafting procedure, we would need to check it HgA1c which needs to be below 8 for elective procedure. We will also reculture the wounds before any skin grafting would be done. Her last HGBA1c was 11.3 in 12/08. Code Visit [id number]: [id number] Naima subq tissue 20 sq cm/< Add On Codes: 71075 Naima subq tissue add-on - x 5
--- NOTE | 2018-07-06 12:59 | PN.PCM_ITS ---
(1) Ulcer of right lower extremity with fat layer exposed Status: Chronic Current Visit: Yes Code(s): L97.912 - Non-pressure chronic ulcer of unspecified part of right lower leg with fat layer exposed (2) Ulcer of left lower extremity with fat layer exposed Status: Chronic Current Visit: Yes Code(s): L97.922 - Non-pressure chronic ulcer of unspecified part of left lower leg with fat layer exposed (3) Venous insufficiency of both lower extremities Status: Chronic Current Visit: Yes Code(s): I87.2 - Venous insufficiency (chronic) (peripheral) (4) Hx MRSA infection Status: Chronic Current Visit: No Code(s): Z86.14 - Personal history of Methicillin resistant Staphylococcus aureus infection (5) Chronic acquired lymphedema Status: Chronic Current Visit: Yes Code(s): I89.0 - Lymphedema, not elsewhere classified (6) Nonhealing ulcer of multiple sites of left lower extremity with fat layer exposed Status: Chronic Current Visit: Yes Code(s): L97.922 - Non-pressure chronic ulcer of unspecified part of left lower leg with fat layer exposed (7) Morbid obesity Status: Chronic Current Visit: No Code(s): E66.01 - Morbid (severe) obesity due to excess calories (8) Chronic atrial fibrillation Status: Chronic Current Visit: No Code(s): I48.2 - Chronic atrial fibrillation (9) Type 2 diabetes mellitus Status: Chronic Current Visit: No Code(s): E11.9 - Type 2 diabetes mellitus without complications Type of Wound Date of Service: 07/05/18 Chief Complaint: Nonhealing ulcers right lateral lower leg and left lateral lower leg status post surgical debridement November 2017. History of Wound: Surgery 12/09/17 - 1. Surgical preparation right posterior leg with incision and drainage and excisional debridement nonhealing infected MRSA ulcer abscess (264 cm2). 2. Surgical preparation right posterior thigh with incision and drainage and excisional debridement nonhealing infected MRSA ulcer abscess (112 cm2). 3. Surgical preparation left posterior leg with incision and drainage and excisional debridement nonhealing infected MRSA ulcer abscess (216 cm2). 4. Surgical preparation right lateral ankle with incision and drainage and excisional debridement nonhealing infected MRSA ulcer abscess (4 cm2). 5. Surgical preparation left medial ankle with incision and drainage and excisional debridement nonhealing infected MRSA ulcer abscess (4 cm2). Wound care changed from silver to Santyl. Operative culture - Proteus mirabilis, S Treptococcus agalactiae, MRSA, anaerobic cocci, Corynebacterium minute SMM. She was treated with vancomycin, ceftriaxone, and Flagyl. Wound culture later on 01/07 showed Pseudomonas organism and was considered a surface contaminant. Pre- albumin at that time was 7.9. The patient was encouraged nutritional supplementation with protein to help with the healing process A1c was 11.3. The patient has not followed up since February 2018 and now presents to the wound healing center with complaints as above. Some of her previous wounds have healed however she continues to have the left and right lower extremity nonhealing ulcers. She denies any systemic signs of infection and denies any purulent drainage, pain at the ulcers, or other complaints. She does complain of having significant bilateral lower extremity edema. She otherwise denies any fever, chills, nausea, vomiting, shortness of breath, chest pain or pressure, syncope or presyncopal episodes. Progress of Wound: No improvement. - Physical Exam Vital Signs Temp Pulse Resp BP 98.4 F 120 H 18 112/80 07/05/18 13:49 07/05/18 13:49 07/05/18 13:49 07/05/18 13:49 General: Alert, Oriented x3, Cooperative Lungs: Normal air movement Cardiovascular: Regular rate Extremities: Diminished Peripheral Pulses, Edema - Significant amount of lower extremity edema and lymphadema. +3 pitting edema Skin: Ulcer/ Wound - Right lateral lower lower leg, Left lateral lower leg and left anterior lower leg. Wound Measurements and Assessment WC - Nurse 1 - General Ulcer Measurement Start: 07/05/18 13:49 Freq: Status: Active Protocol: Activity Type Activity Date Activity User E-Sign Co-Sign Detail Recorded Client Recorded Date Recorded By Document 07/05/18 13:49 OH [id number] 07/05/18 14:13 OH 07/05/18 13:49 Wound Center Nurse 1 [Ulcer Assessment] #6 LEFT LATERAL LEG -Combined with other wound No -Current Size (cm) - Length 16.5 -Current Size (cm) - Width 4.0 -Current Size (cm) - Depth 0.2 -Total Square Cm 66.00 -Date of Last Picture (Recall this 07/05/18 field) -Photo Taken Yes -Undermining/Tunneling No -Circular Undermining No -Exudate Amt Large (67-100%) -Exudate Type Serosanguineous -Wound Margin Thickened & Rolled Under -Granulation Amt Medium (34-66%) -Granulation Quality Pale [place] -Necrosis Amt Medium (34-66%) -Necrotic Tissue Type Adherent Slough -Texture (Airam-wound Skin Appearance) Assessed Localized Edema -Moisture (Airam-wound Skin Appearance Assessed ) Maceration Weeping -Color (Airam-wound Skin Appearance) Assessed Palor -Temperature (Airam-wound Skin No Abnormality Appearance) (Pt Warm) -Tenderness on Palpation (Airam-wound No Skin Appearance) -Ulcer Cleansing Rinsed/ Irrigated with Saline -Foul Odor after Cleansing Yes -Anesthetic Used 5% Lidocaine Gel #5 RIGHT LATERAL LEG -Combined with other wound No -Current Size (cm) - Length 11.8 -Current Size (cm) - Width 6.0 -Current Size (cm) - Depth 0.1 -Total Square Cm 70.80 -Date of Last Picture (Recall this 07/05/18 field) -Photo Taken Yes -Tunneling No -Undermining/Tunneling No -Circular Undermining No -Exudate Amt Medium (34-66%) -Exudate Type Serosanguineous -Wound Margin Thickened & Rolled Under -Granulation Amt Medium (34-66%) -Granulation Quality Pale [place] -Necrosis Amt Medium (34-66%) -Necrotic Tissue Type Adherent Slough -Texture (Airam-wound Skin Appearance) Assessed Localized Edema -Moisture (Airam-wound Skin Appearance Assessed ) Maceration Weeping -Color (Airam-wound Skin Appearance) Assessed Erythema Palor -Temperature (Airam-wound Skin No Abnormality Appearance) (Pt Warm) -Tenderness on Palpation (Airam-wound No Skin Appearance) -Ulcer Cleansing Rinsed/ Irrigated with Saline -Foul Odor after Cleansing Yes -Anesthetic Used 5% Lidocaine Gel #1- LT MEDIAL ANKLE -Combined with other wound No -Current Size (cm) - Length 1.0 -Current Size (cm) - Width 2.0 -Current Size (cm) - Depth 0.1 -Total Square Cm 2.00 -Date of Last Picture (Recall this 07/05/18 field) -Photo Taken Yes -Epithelialization Medium 34-66% -Tunneling No -Undermining/Tunneling No -Circular Undermining No -Exudate Amt Small (1-33%) -Exudate Type Serosanguineous -Wound Margin Flat & Intact -Granulation Amt Large (67-100%) -Granulation Quality Pale [place] -Necrosis Amt None Present (0 %) -Texture (Airam-wound Skin Appearance) Assessed -Moisture (Airam-wound Skin Appearance Assessed ) Maceration -Color (Airam-wound Skin Appearance) Assessed Palor -Temperature (Airam-wound Skin No Abnormality Appearance) (Pt Warm) -Tenderness on Palpation (Airam-wound No Skin Appearance) -Ulcer Cleansing Rinsed/ Irrigated with Saline -Foul Odor after Cleansing Yes -Anesthetic Used 5% Lidocaine Gel [Edema Assessment] -Lower Limb Edema Present Yes -Right Calf (cm) 68.0 -Right Ankle (cm) 39.0 -Left Calf (cm) 72.0 -Left Ankle (cm) 41.0 WC - Nurse 2 - General Ulcer CM Notes Start: 07/05/18 13:49 Freq: Status: Active Protocol: Activity Type Activity Date Activity User E-Sign Co-Sign Detail Recorded Client Recorded Date Recorded By Document 07/05/18 14:27 [id number] 07/05/18 14:35 CRISTINA 07/05/18 14:27 Wound Center Nurse 2 [Procedure/Treatment] #6 LEFT LATERAL LEG -Time 14:27 -Correct Patient Yes -Correct Side, Site, Position Yes -Correct Procedure Yes -Procedure Performed Yes -Type of Procedure Debridement -Clinical Debridement Subcutaneous -Post Debridement Size (cm) - Length 17.4 -Post Debridement Size (cm) - Width 3.5 -Post Debridement Size (cm) - Depth 0.5 -Total Square Cm 60.90 -Wound/Ulcer Outcome Not Healed -Ulcer Cleansing Rinsed/ Irrigated with Saline -Foul Odor after Cleansing No -Bioengineered Tissue No -Bleeding Controlled with Pressure -Treatment Response Procedure Tolerated Well #5 RIGHT LATERAL LEG -Time 14:28 -Correct Patient Yes -Correct Side, Site, Position Yes -Correct Procedure Yes -Procedure Performed Yes -Type of Procedure Debridement -Clinical Debridement Subcutaneous -Post Debridement Size (cm) - Length 9.0 -Post Debridement Size (cm) - Width 5 -Post Debridement Size (cm) - Depth 0.2 -Total Square Cm 45.0 -Wound/Ulcer Outcome Not Healed -Ulcer Cleansing Rinsed/ Irrigated with Saline -Foul Odor after Cleansing No -Bioengineered Tissue No -Bleeding Controlled with Pressure -Treatment Response Procedure Tolerated Well #1- LT MEDIAL ANKLE -Time 14:28 -Correct Patient Yes -Correct Side, Site, Position Yes -Correct Procedure Yes -Procedure Performed Yes -Type of Procedure Debridement -Clinical Debridement Subcutaneous -Post Debridement Size (cm) - Length 1.2 -Post Debridement Size (cm) - Width 2.0 -Post Debridement Size (cm) - Depth 0.1 -Total Square Cm 2.40 -Wound/Ulcer Outcome Not Healed -Ulcer Cleansing Rinsed/ Irrigated with Saline -Foul Odor after Cleansing No -Bioengineered Tissue No -Bleeding Controlled with Pressure -Treatment Response Procedure Tolerated Well [See Physician Procedure note for Specifics] Pain Scale: 0-10 Numeric [Pain] -Is Patient Pain Free? Yes Musculoskeletal: No Tenderness to Palpation of Joints or Extremities Neurological: Neuro grossly intact Psych/Mental Status: Normal Affect, Appropriate Debridement Note Post-Debridement Measurements/Treatment WC - Nurse 2 - General Ulcer CM Notes Start: 07/05/18 13:49 Freq: Status: Active Protocol: Activity Type Activity Date Activity User E-Sign Co-Sign Detail Recorded Client Recorded Date Recorded By Document 07/05/18 14:27 [id number] 07/05/18 14:35 07/05/18 14:27 Wound Center Nurse 2 #6 LEFT LATERAL LEG -Time 14:27 -Correct Patient Yes -Correct Side, Site, Position Yes -Correct Procedure Yes -Procedure Performed Yes -Type of Procedure Debridement -Clinical Debridement Subcutaneous -Post Debridement Size (cm) - Length 17.4 -Post Debridement Size (cm) - Width 3.5 -Post Debridement Size (cm) - Depth 0.5 -Total Square Cm 60.90 -Wound/Ulcer Outcome Not Healed -Ulcer Cleansing Rinsed/ Irrigated with Saline -Foul Odor after Cleansing No -Bioengineered Tissue No -Bleeding Controlled with Pressure -Treatment Response Procedure Tolerated Well #5 RIGHT LATERAL LEG -Time 14:28 -Correct Patient Yes -Correct Side, Site, Position Yes -Correct Procedure Yes -Procedure Performed Yes -Type of Procedure Debridement -Clinical Debridement Subcutaneous -Post Debridement Size (cm) - Length 9.0 -Post Debridement Size (cm) - Width 5 -Post Debridement Size (cm) - Depth 0.2 -Total Square Cm 45.0 -Wound/Ulcer Outcome Not Healed -Ulcer Cleansing Rinsed/ Irrigated with Saline -Foul Odor after Cleansing No -Bioengineered Tissue No -Bleeding Controlled with Pressure -Treatment Response Procedure Tolerated Well #1- LT MEDIAL ANKLE -Time 14:28 -Correct Patient Yes -Correct Side, Site, Position Yes -Correct Procedure Yes -Procedure Performed Yes -Type of Procedure Debridement -Clinical Debridement Subcutaneous -Post Debridement Size (cm) - Length 1.2 -Post Debridement Size (cm) - Width 2.0 -Post Debridement Size (cm) - Depth 0.1 -Total Square Cm 2.40 -Wound/Ulcer Outcome Not Healed -Ulcer Cleansing Rinsed/ Irrigated with Saline -Foul Odor after Cleansing No -Bioengineered Tissue No -Bleeding Controlled with Pressure -Treatment Response Procedure Tolerated Well Pain Scale: 0-10 Numeric Is Patient Pain Free? Yes Wound debrided: Right lateral lower leg. Laterality: Right Type of Debridement: Excisional debridement Anesthesia Used: 4% Lidocaine Solution Depth: Down to and including healthy tissue, in the subcutaneous layer Percentage of wound debrided: 100 Instrument Used: 3mm curette Tissue Removed: Subcutaneous tissue and slough Severity: Fat Layer Exposed Amount of bleeding with debridement: Mild Bleeding Controlled with: Pressure Patient tolerated procedure well - Additional Wound Wound debrided: Left lateral lower leg Laterality: Left Type of Debridement: Excisional debridement Anesthesia Used: 4% Lidocaine Solution Depth: Down to and including healthy tissue, in the subcutaneous layer Percentage of wound debrided: 100 Instrument Used: 3mm curette Tissue Removed: Subcutaneous tissue and slough Severity: Fat Layer Exposed Amount of bleeding with debridement: Mild Bleeding Controlled with: Pressure Patient tolerated procedure: Patient tolerated procedure well - Additional Wound Wound debrided: left anterior lower leg Laterality: Left Type of Debridement: Excisional debridement Anesthesia Used: 4% Lidocaine Solution Depth: Down to and including healthy tissue, in the subcutaneous layer Percentage of wound debrided: 100 Instrument Used: 3mm curette Tissue Removed: Subcutaneous tissue and slough Severity: Fat Layer Exposed Amount of bleeding with debridement: Mild Bleeding Controlled with: Pressure Patient tolerated procedure: Patient tolerated procedure well Assessment/Plan Active Problems (Last Updated 12/07/17 @ 09:05 by Thomas Carrasco MD) Ulcer of right lower extremity with fat layer exposed (Chronic) Ulcer of left lower extremity with fat layer exposed (Chronic) Venous insufficiency of both lower extremities (Chronic) Chronic acquired lymphedema (Chronic) Nonhealing ulcer of multiple sites of left lower extremity with fat layer exposed (Chronic) Assessment: 1 Nonhealing ulcer right lateral posterior leg. 2. Nonhealing ulcer left lateral posterior leg. 3. Diabetes mellitus. 4. Chronic venous insufficiency with venous stasis disease. 5. History of MRSA. 6. Obesity. 7. Atrial fibrillation on Coumadin. 8. Status post surgical preparation right posterior leg with incision and drainage and excisional debridement nonhealing infected MRSA ulcer abscess (264 cm2) and surgical preparation right posterior thigh with incision and drainage and excisional debridement nonhealing infected MRSA ulcer abscess 9112 cm2) and surgical preparation left posterior leg with incision and drainage and excisional debridement nonhealing infected MRSA ulcer abscess (216 cm2) and surgical preparation right lateral ankle with incision and drainage and excisional debridement nonhealing infected MRSA ulcer abscess(4 cm2) and surgical preparation left medial ankle with incision and drainage and excisional debridement nonhealing infected MRSA ulcer abscess(4 cm2). All wounds are healed except for the right lateral lower extremity and the left lower lateral extremity. Plan: We will continue Santyl daily. She is not able to come in weekly for debridement which would be most beneficial to her. Today on her left lateral lower leg had a 5 mm hard yellow object that was imbedded in the center of the opened area. Easily able to remove it, but it did leave a significant indentation. Believe it may be a corn kernal. 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 Continue to apply Hussein wraps to bilateral lower extremities. She has been using compression stockings 15-20 mmHg that she has at home but did not wear them here today. With the amount of edema she has, I suspect she may be non compliant with wearing them. Stressed importance of compression. Encouraged to elevate legs for at least 30 minutes 3 times a day. Increase home health to 2 visits a week. Will follow up in wound center 2 weeks (because patient states that she can not come every week). She was treated for positive all operative cultures 12/08 with Vancomycin, Ceftriaxone and Flagyl. She left the F March 18, 2018. Her pre-albumin was 7.9. Encourage nutritional supplementation with protein to help the healing process. Dr. Martinez has discussed in previous visits about possible skin grafting if there is a plateau in healing process. Prior to any grafting procedure, we would need to check it HgA1c which needs to be below 8 for elective procedure. We will also reculture the wounds before any skin grafting would be done. Her last HGBA1c was 11.3 in 12/08. Code Visit 111xxx-113xx: 37304 Naima subq tissue 20 sq cm/< Add On Codes: 31936 Naima subq tissue add-on - x 5
== END 2018-07-22 23:59 ==
LOC: WC 09:12
PROVIDERS: Family Provider Family Medicine; PCP Family Medicine; Referring Provider Surgery; Visit Provider Surgery
DX: E11.622 Type 2 diabetes mellitus with other skin ulcer (principal); L97.812 Non-pressure chronic ulcer of other part of right lower leg with fat layer exposed; L97.822 Non-pressure chronic ulcer of other part of left lower leg with fat layer exposed; I87.2 Venous insufficiency (chronic) (peripheral); Z86.14 Personal history of Methicillin resistant Staphylococcus aureus infection; I89.0 Lymphedema, not elsewhere classified; E66.01 Morbid (severe) obesity due to excess calories; Z68.43 Body mass index [BMI] 50.0-59.9, adult; Z71.3 Dietary counseling and surveillance; I48.2 Chronic atrial fibrillation
CPT/HCPCS: 11042; 11045

== ENCOUNTER → 2018-07-21 10:04 | Outpatient (CLI) | payer OTHER, SELFPAY ==
[2018-07-21 10:17] LABS: Absolute Lymphocyte Count 0.87 X10^3/ul (0.83-4.51); Absolute Neutrophil Count 4.9 X10^3/uL (2.0-7.7); Basophil# 0.02 X10^3/uL; Basophil% 0.3 % (0-1); Eosinophil# 0.14 X10^3/uL; Eosinophils% 2.2 % (0-5); Lymphocyte # 0.87 X10^3/ul (4.0); Lymphocyte % 13.4 % (19-41); Mean Corp Hgb Conc 30.6 g/gl (32-36); Mean Corpuscular Hgb 29.8 pg (27.0-32.0); Mean Corpuscular Volume 97.6 fL (81-99); Mean Platelet Vol. 9.8 fl (6.2-12.0); Monocyte# 0.54 X10^3/uL; Monocyte% 8.3 % (0-10); Neutrophil # 4.89 X10^3/uL (2.7-7.7); Neutrophil % 75.6 % (47-70); Platelet Count 247 K/mm3 (150-450); RBC Distribution Width CV 18.5 % (11.6-14.6); RBC Distribution Width SD 63.1 fl (35.1-43.9); Red Blood Count 3.69 M/mm3 (4.2-5.4); White Blood Count 6.5 K/mm3 (4.4-11.0)
[2018-07-21 10:37] LABS: POSITIVE COUNT NO; POSITIVE DIFFERENTIAL NO; POSITIVE MORPHOLOGY NO
[2018-07-21 10:44] LABS: ALB/GLOB Ratio 0.6 RATIO (0.9-2.4); AST(SGOT) 15 U/L (15-37); Alanine Aminotransfer ALT/SGPT 19 U/L (13-56); Albumin, Serum 3.2 g/dL (3.2-5.0); Alkaline Phosphatase 103 U/L (45-117); Anion Gap 8 (5-15); BUN 24 mg/dL (7-18); BUN/Creat Ratio 23.8 RATIO (10-20); Calcium,Total 8.5 mg/dL (8.5-10.1); Chloride 106 mmol/L (98-107); Creatinine, Serum 1.01 mg/dL (0.55-1.02); EST Glomerular Filtration Rate 60 mL/min (>60); Est Glom Filt Rate - Afr Amer 72 mL/min (>60); Globulin 5.3 g/dL (2.2-4.2); Glucose 150 mg/dL (74-106); Potassium 4.4 mmol/L (3.5-5.1); Protein, Total 8.5 g/dL (6.4-8.2); Sodium Level 140 mmol/L (136-145)
--- OUTSIDE RECORDS SUMMARY | 2018-09-15 11:56 | XMS RPT_ITS ---
:1960 Author Organization OHIP Support Name Relationship Address Phone D Unavailable Unavailable Unavailable MELODY HERNANDEZ Unavailable [address] + [place] [address] WIESEN, TAMI Unavailable [address] + [address] [place] [address] D Unavailable Unavailable Unavailable MARY(MELODY VILLA Unavailable [address] + [place] [address] WIVICENTE, TAMI Unavailable [address] + [address] [place] [address] D Unavailable Unavailable Unavailable MELODY HERNANDEZ Unavailable [address] + [place] [address] ANDREA, TAMI Unavailable [address] + [address] [place] [address] D Unavailable Unavailable Unavailable MELODY HERNANDEZ (POA) Unavailable [address] + [place] [address] ANDREA TAMI Unavailable [address] + [address] [place] [address] D Unavailable Unavailable Unavailable MELODY HERNANDEZ (POA) Unavailable [address] + [place] [address] ANDREA, TAMI Unavailable [address] + [address] [place] [address] D Unavailable Unavailable Unavailable MELODY HERNANDEZ (POA) Unavailable [address] + [place] [address] ANDREA, TAMI Unavailable [address] + [address] [place] [address] D Unavailable Unavailable Unavailable MELODY HERNANDEZ (POA) Unavailable [address] + [place] [address] WIESEN, TAMI Unavailable [address] + [address] [place] [address] D Unavailable Unavailable Unavailable MELODY HERNANDEZ Unavailable [address] + [place] [address] FIONA MENDEZOMI Unavailable [address] + [address] [place] [address] D Unavailable Unavailable Unavailable MELODY HERNANDEZ Unavailable [address] + [place] [address] FIONA MENDEZOMI Unavailable [address] + [address] [place] [address] D Unavailable Unavailable Unavailable MELODY HERNANDEZ Unavailable [address] + [place] [address] TAMI MENDEZ Unavailable [address] + [address] [place] [address] D Unavailable Unavailable Unavailable MELODY HERNANDEZ Unavailable [address] + [place] [address] TAMI MENDEZ Unavailable [address] + [address] [place] [address] D Unavailable Unavailable Unavailable MELODY HERNANDEZ Unavailable [address] + [place] [address] TAMI MENDEZ Unavailable [address] + [address] [place] [address] D Unavailable Unavailable Unavailable MELODY HERNANDEZ Unavailable [address] + [place] [address] TAMI MENDEZ Unavailable [address] + [address] [place] [address] D Unavailable Unavailable Unavailable MELODY HERNANDEZ Unavailable [address] + [place] [address] FIONA MENDEZOMI Unavailable [address] + [address] [place] [address] D Unavailable Unavailable Unavailable MELODY HERNANDEZ Unavailable [address] + [place] [address] FIONA MENDEZOMI Unavailable [address] + [address] [place] [address] D Unavailable Unavailable Unavailable MELODY HERNANDEZ Unavailable [address] + [place] [address] FIONA MENDEZOMI Unavailable [address] + [address] [place] [address] D Unavailable Unavailable Unavailable MELODY HERNANDEZ Unavailable [address] + [place] [address] FIONA MENDEZOMI Unavailable [address] + [address] [place] [address] D Unavailable Unavailable Unavailable MELODY HERNANDEZ Unavailable [address] + [place] [address] FIONA MENDEZOMI Unavailable [address] + [address] [place] [address] MELODY HERNANDEZ Unavailable Unavailable + D Unavailable Unavailable Unavailable MELODY HERNANDEZ Unavailable [address] + [place] [address] TAMI MENDEZ Unavailable [address] + [address] [place] [address] D Unavailable Unavailable Unavailable MELODY HERNANDEZ Unavailable [address] + [place] [address] TAMI MENDEZ Unavailable [address] + [address] [place] [address] D Unavailable Unavailable Unavailable MELODY HERNANDEZ Unavailable [address] + [place] [address] TAMI MENDEZ Unavailable [address] + [address] [place] [address] D Unavailable Unavailable Unavailable MELODY HERNANDEZ Unavailable [address] + [place] [address] FIONA MENDEZOMI Unavailable [address] + [address] [place] [address] D Unavailable Unavailable Unavailable MELODY HERNANDEZ Unavailable [address] + [place] [address] FIONA MENDEZOMI Unavailable [address] + [address] [place] [address] D Unavailable Unavailable Unavailable MELODY HERNANDEZ Unavailable [address] + [place] [address] ANDREA TAMI Unavailable [address] + [address] [place] [address] D Unavailable Unavailable Unavailable MELODY HERNANDEZ Unavailable [address] + [place] [address] ANDREA, TAMI Unavailable [address] + [address] [place] [address] D Unavailable Unavailable Unavailable MELODY HERNANDEZ Unavailable [address] + [place] [address] ANDREA TAMI Unavailable [address] + [address] [place] [address] D Unavailable Unavailable Unavailable MELODY HERNANDEZ Unavailable [address] + [place] [address] ANDREA TAMI Unavailable [address] + [address] [place] [address] D Unavailable Unavailable Unavailable MELODY HERNANDEZ Unavailable [address] + [place] [address] ANDREA TAMI Unavailable [address] + [address] [place] [address] D Unavailable Unavailable Unavailable MELODY HERNANDEZ Unavailable [address] + [place] [address] ANDREA TAMI Unavailable [address] + [address] [place] [address] D Unavailable Unavailable Unavailable MELODY HERNANDEZ Unavailable [address] + [place] [address] ANDREA TAMI Unavailable [address] + [address] [place] [address] D Unavailable Unavailable Unavailable MELODY HERNANDEZ Unavailable [address] + [place] [address] ANDREA TAMI Unavailable [address] + [address] [place] [address] D Unavailable Unavailable Unavailable MELODY HERNANDEZ Unavailable [address] + [place] [address] ANDREA TAMI Unavailable [address] + [address] [place] [address] D Unavailable Unavailable Unavailable MELODY HERNANDEZ Unavailable [address] + [place] [address] FIONA MENDEZOMI Unavailable [address] + [address] [place] [address] D Unavailable Unavailable Unavailable MELODY HERNANDEZ Unavailable [address] + [place] [address] ANDREA TAMI Unavailable [address] + [address] [place] [address] D Unavailable Unavailable Unavailable MELODY HERNANDEZ Unavailable [address] + [place] [address] FIONA MENDEZOMI Unavailable [address] + [address] [place] [address] MELODY HERNANDEZ Unavailable Unavailable + NOT GIVEN Unavailable Unavailable Unavailable MELODY HERNANDEZ Unavailable Unavailable + NOT GIVEN Unavailable Unavailable Unavailable D Unavailable Unavailable Unavailable MELODY HERNANDEZ Unavailable [address] + [place] [address] FIONA MENDEZOMI Unavailable [address] + [address] [place] [address] D Unavailable Unavailable Unavailable MELODY HERNANDEZ Unavailable [address] + [place] [address] FIONA MENDEZOMI Unavailable [address] + [address] [place] [address] D Unavailable Unavailable Unavailable MELODY HERNANDEZ Unavailable [address] + [place] [address] ANDREA TAMI Unavailable [address] + [address] [place] [address] D Unavailable Unavailable Unavailable MELODY HERNANDEZ Unavailable [address] + [place] [address] ANDREA TAMI Unavailable [address] + [address] [place] [address] D Unavailable Unavailable Unavailable MELODY HERNANDEZ Unavailable [address] + [place] [address] ANDREA TAMI Unavailable [address] + [address] [place] [address] D Unavailable Unavailable Unavailable MELODY HERNANDEZ Unavailable [address] + [place] [address] TAMI MENDEZ Unavailable [address] + [address] [place] [address] D Unavailable Unavailable Unavailable MELODY HERNANDEZ Unavailable [address] + [place] [address] TAMI MENDEZ Unavailable [address] + [address] [place] [address] D Unavailable Unavailable Unavailable MELODY HERNANDEZ Unavailable [address] + [place] [address] TAMI MENDEZ Unavailable [address] + [address] [place] [address] D Unavailable Unavailable Unavailable MELODY HERNANDEZ Unavailable [address] + [place] [address] TAMI MENDEZ Unavailable [address] + [address] [place] [address] D Unavailable Unavailable Unavailable MELODY HERNANDEZ Unavailable [address] + [place] [address] TAMI MENDEZ Unavailable [address] + [address] [place] [address] D Unavailable Unavailable Unavailable MELODY HERNANDEZ Unavailable [address] + [place] [address] TAMI MENDEZ Unavailable [address] + [address] [place] [address] D Unavailable Unavailable Unavailable MELODY HERNANDEZ Unavailable [address] + [place] [address] TAMI MENDEZ Unavailable [address] + [address] [place] [address] D Unavailable Unavailable Unavailable MELODY HERNANDEZ Unavailable [address] + [place] [address] TAMI MENDEZ Unavailable [address] + [address] [place] [address] D Unavailable Unavailable Unavailable MELODY HERNANDEZ Unavailable [address] + [place] [address] TAMI MENDEZ Unavailable [address] + [address] [place] [address] Care Team Providers Name Role Phone [facility] Unavailable Gbaruk, Kombian Admitting Unavailable Slaby, Alejo Consulting Unavailable Paintsil, Wynnburg Attending Unavailable Boy Haines Consulting Unavailable Gbaruk, Kombian Admitting Unavailable Gbaruk, Kombian Attending Unavailable [facility] Unavailable Gbaruk, Kombian Consulting Unavailable Gbaruk, Kombian Admitting Unavailable Ashelfah, Ghasem Attending Unavailable [facility] Unavailable Slaby, Alejo Consulting Unavailable Ashelfah, Ghasem Consulting Unavailable Gbaruk, Kombian Admitting Unavailable Ashelfah, Ghasem Attending Unavailable [facility] Unavailable Slaby, Alejo Consulting Unavailable Ashelfah, Ghasem Consulting Unavailable Gbaruk, Kombian Admitting Unavailable Ashelfah, Ghasem Attending Unavailable [facility] Unavailable Slaby, Alejo Consulting Unavailable Ashelfah, Ghasem Consulting Unavailable Gbaruk, Kombian Admitting Unavailable Ashelfah, Ghasem Attending Unavailable [facility] Unavailable Slaby, Alejo Consulting Unavailable Ashelfah, Ghasem Consulting Unavailable Gbar[place], Kombian Admitting Unavailable Ashelfah, Ghasem Attending Unavailable [facility] Unavailable Slaby, Alejo Consulting Unavailable Ashelfah, Ghasem Consulting Unavailable Gbar[place], Kombian Admitting Unavailable Ashelfah, Ghasem Attending Unavailable [facility] Unavailable Slaby, Alejo Consulting Unavailable Ashelfah, Ghasem Consulting Unavailable [place]bar[place], Kombian Admitting Unavailable Slabmelly Alejo Attending Unavailable [facility] Unavailable Slaby, Alejo Consulting Unavailable Ashelfah, Ghasem Consulting Unavailable Gbar[place], Kombian Admitting Unavailable SlabyAlejo Attending Unavailable [facility] Unavailable Slaby, Alejo Consulting Unavailable Ashelfah, Ghasem Consulting Unavailable [place]bar[place], Kombian Admitting Unavailable Paintsil, Wynnb[place] Attending Unavailable [facility] Unavailable Alejo Martinez Consulting Unavailable Paintsil, [place] Consulting Unavailable Gbar[place], Kombian Admitting Unavailable Paintsil, Wynnb[place] Attending Unavailable [facility] Unavailable Slaby, Alejo Consulting Unavailable YancyBoy Consulting Unavailable Paintsil, [place]nb[place] Consulting Unavailable Jopperi, Silviano Admitting Unavailable Jopperi, Silviano Referring Unavailable [facility] Unavailable Nick, Yu Consulting Unavailable Sementi, Tresa Attending Unavailable Andre, Charlie Consulting Unavailable Slaby, Alejo Consulting Unavailable Jopperi, Islviano Admitting Unavailable Mitali Garibay Attending Unavailable Jopperi, Silviano Referring Unavailable [facility] Unavailable Nick, Yu Consulting Unavailable Andre, Charlie Consulting Unavailable Jopperi, Silviano Consulting Unavailable Jopperi, Silviano Admitting Unavailable Dami Kim Attending Unavailable Jopperi, Silviano Referring Unavailable [facility] Unavailable Nick, Yu Consulting Unavailable Andre, Charlie Consulting Unavailable Jopperi, Silviano Consulting Unavailable Jopperi, Silviano Admitting Unavailable Paintsil, Wynnb[place] Attending Unavailable Jopperi, Silviano Referring Unavailable [facility] Unavailable Nick, Yu Consulting Unavailable Andre, Charlie Consulting Unavailable Paintsil, [place] Consulting Unavailable Jopperi, Silviano Admitting Unavailable Paintsil, Wynnb[place] Attending Unavailable Jopperi, Silviano Referring Unavailable [facility] Unavailable Nick, Uy Consulting Unavailable Andre, Charlie Consulting Unavailable Paintsil, [place]nb[place] Consulting Unavailable Jopperi, Silviano Admitting Unavailable Sementi, Tresa Attending Unavailable Jopperi, Silviano Referring Unavailable [facility] Unavailable Nick, Yu Consulting Unavailable Andre, Charlie Consulting Unavailable Slaby, Alejo Consulting Unavailable Sementi, Tresa Consulting Unavailable Jopperi, Silviano Admitting Unavailable Cy Rader D.O. Attending Unavailable Jopperi, Silviano Referring Unavailable [facility] Unavailable Nick, Yu Consulting Unavailable Andre, Charlie Consulting Unavailable Slaby, Alejo Consulting Unavailable Sementi, Tresa Consulting Unavailable Jopperi, Silviano Admitting Unavailable Ceci Ruiz NP-C Attending Unavailable Jopperi, Silviano Referring Unavailable [facility] Unavailable Nick, Yu Consulting Unavailable Andre, Charlie Consulting Unavailable Slaby, Alejo Consulting Unavailable Sementi, Tresa Consulting Unavailable Jopperi, Silviano Admitting Unavailable Cy Rader D.O. Attending Unavailable Jopperi, Silviano Referring Unavailable [facility] Unavailable Nick, Yu Consulting Unavailable Andre, Charlie Consulting Unavailable Slaby, Alejo Consulting Unavailable Sementi, Tresa Consulting Unavailable Jopperi, Silviano Admitting Unavailable Sementi, Tresa Attending Unavailable Jopperi, Silviano Referring Unavailable [facility] Unavailable Nick, Yu Consulting Unavailable Andre, Charlie Consulting Unavailable Slaby, Alejo Consulting Unavailable Sementi, Tresa Consulting Unavailable Jopperi, Silviano Admitting Unavailable Ccei Ruiz SYSTEM SUPPORT ANALYST-C Attending Unavailable Jopperi, Silviano Referring Unavailable [facility] Unavailable Nick, Yu Consulting Unavailable Andre, Charlie Consulting Unavailable Slaby, Alejo Consulting Unavailable Sementi, Tresa Consulting Unavailable Jopperi, Silviano Admitting Unavailable Cy Rader D.O. Attending Unavailable Jopperi, Silviano Referring Unavailable [facility] Unavailable Nick, Yu Consulting Unavailable Andre, Charlie Consulting Unavailable Slaby, Alejo Consulting Unavailable Sementi, Tresa Consulting Unavailable Jopperi, Silviano Admitting Unavailable Sementi, Tresa Attending Unavailable Jopperi, Silviano Referring Unavailable [facility] Unavailable Nick, Yu Consulting Unavailable Andre, Charlie Consulting Unavailable Slaby, Alejo Consulting Unavailable Sementi, Tresa Consulting Unavailable Jopperi, Silviano Admitting Unavailable Sementi, Tresa Attending Unavailable Jopperi, Silviano Referring Unavailable [facility] Unavailable Nick, Yu Consulting Unavailable Andre, Charlie Consulting Unavailable Slaby, Alejo Consulting Unavailable Sementi, Tresa Consulting Unavailable Andre, Charlie Attending Unavailable Jopperi, Silviano Referring Unavailable NavinarukKeyannaian Admitting Unavailable Alejo Martinez Attending Unavailable [facility] Unavailable Slabmelly, Alejo Consulting Unavailable YancyBoy Consulting Unavailable Paintsil, Wyn[place] Consulting Unavailable Chandu Suazoril Attending Unavailable Ashelfah, Ghasem Referring Unavailable Mitali Garibay Attending Unavailable Jopperi, Silviano Referring Unavailable Lakeisha Hague Attending Unavailable Jopperi, Silviano Referring Unavailable Alejo Martinez Attending Unavailable [facility] Unavailable Alejo Martinez Attending Unavailable Costello, Axel Primary Care Unavailable Alejo Martinez [facility] Alejo Martinez Attending Unavailable Costello, Axel Primary Care Unavailable Alejo Martinez Consulting Unavailable Vaibhav, Mariluz E Attending Unavailable Costello, Axel Primary Care Unavailable Slaby, Alejo Consulting Unavailable Slaby, Alejo Attending Unavailable Costello, Axel Primary Care Unavailable Slaby, Alejo Referring Unavailable Vaibhav, Mariluz E Attending Unavailable Slaby, Alejo Referring Unavailable Vaibhav, Mariluz E Attending Unavailable Slaby, Alejo Referring Unavailable Costello, Axel Primary Care Unavailable Slaby, Alejo Consulting Unavailable Slaby, Alejo Attending Unavailable Slaby, Alejo Referring Unavailable Costello, Axel Primary Care Unavailable Vaibhav, Mariluz E Attending Unavailable Slaby, Alejo Referring Unavailable Costello, Axel Primary Care Unavailable Slaby, Alejo Consulting Unavailable [place], Rajesh Attending Unavailable Costello, Axel Primary Care Unavailable Agyepong, Billy Admitting Unavailable Tereletsky, Rod Attending Unavailable Rodolfo, Rajesh Primary Care Unavailable Slaby, Alejo Attending Unavailable Slaby, Alejo Referring Unavailable Costello, Axel Primary Care Unavailable Agyepong, Billy Admitting Unavailable Agyepong, Billy Attending Unavailable Costello, Axel Primary Care Unavailable Agyepong, Billy Consulting Unavailable Agyepong, Billy Admitting Unavailable Costello, Axel Primary Care Unavailable Ricardo Ambriz Consulting Unavailable Ricardo Ambriz Attending Unavailable Agyepong, Billy Admitting Unavailable Costello, Axel Primary Care Unavailable Ricardo Ambriz Consulting Unavailable Ricardo Ambriz Attending Unavailable Agyepong, Billy Admitting Unavailable [place], Rajesh Primary Care Unavailable Rod Hollingsworth Consulting Unavailable Rod Hollingsworth Attending Unavailable Agyeponmechelle, Billy Admitting Unavailable [facility] Primary Care Unavailable Rod Hollingsworth Consulting Unavailable Rod Hollingsworth Attending Unavailable TRE HARRIS MD Admitting Unavailable TRE HARRIS MD Attending Unavailable TRE HARRIS MD Primary Care Unavailable DEVIKA PURCELL MD Consulting Unavailable PROVIDER, UNKNOWN Consulting Unavailable PROVIDER, UNKNOWN Consulting Unavailable PROVIDER, UNKNOWN Consulting Unavailable TIMOTHY DELGADO DO Admitting Unavailable TIMOTHY DELGADO DO Attending Unavailable TIMOTHY DELGADO DO Primary Care Unavailable VirajAmadeo mckeon Attending Unavailable PROBLEMS PROBLEMS DATE TYPE CONDITION / CODE ATTENDING STATUS SOURCE Unknown L97.922 - Non-pressure Vaibhav, Active [facility] chronic ulcer of [facility] unspecified part of Hospital left lower leg with Repository fat layer exposed / L97.922(ICD-10) Unknown L97.912 - Non-pressure Vaibhav, Active [place] [facility] chronic ulcer of [place] E Community unspecified part of Hospital right lower leg with Repository fat layer exposed / L97.912(ICD-10) Unknown I89.0 - Lymphedema, Vaibhav, Active [place] 8 not elsewhere [place] E Community classified / Hospital I89.0(ICD-10) Repository Admitting Unknown / UNK(Unknown) Viraj, Amadeo Active [facility] [place] Repository Unknown R00.1 - Bradycardia, AndreCharlie oleary Active [place] [facility] unspecified / Community R00.1(ICD-10) Hospital Repository Unknown I10 - Essential AndreCharlie oleary Active [facility] (primary) hypertension Community / I10(ICD-10) Hospital Repository Unknown I27.20 - Pulmonary AndreCharlie oleary Active [place] [facility] hypertension, Community unspecified / Hospital I27.20(ICD-10) Repository Unknown E11.649 - Type 2 AndreCharlie oleary Active [facility] diabetes mellitus with Community hypoglycemia without Hospital coma / E11.649(ICD-10) Repository Unknown E66.01 - Morbid Charlie Powell Active [place] [facility] (severe) obesity due Community to excess calories / Hospital E66.01(ICD-10) Repository Unknown N17.9 - Acute kidney Garibay, Active [facility] failure, unspecified / Mitali Community N17.9(ICD-10) Hospital Repository Unknown I50.33 - Acute on Lakeisha, Hague Active [facility] chronic diastolic Community (congestive) heart Hospital failure / Repository I50.33(ICD-10) Unknown I48.2 - Chronic atrial Lakesiha, Hague Active [facility] fibrillation / Community I48.2(ICD-10) Hospital Repository Unknown R94.31 - Abnormal Lakeisha, Oral Active [place] 8 electrocardiogram Community [ECG] [EKG] / Hospital R94.31(ICD-10) Repository Admitting Type 2 diabetes Taryn HARRIS 8 Diagnosis mellitus without [facility]RE [facility] E119(ICD-10) Repository Principle Type 2 diabetes KIMBERLY, Active [facility] without TRE [facility] complications / Hospital E119(ICD-10) Repository Secondary Cellulitis, KIMBERLY, Active Salvaodr Godinez 8 Diagnosis unspecified / TRE LAZARO [facility] L0390(ICD-10) Hospital Repository Unknown E11.622 - Type 2 Paintsil, Wynnb[place] Active [facility] diabetes mellitus with Community other skin ulcer / Hospital E11.622(ICD-10) Repository Unknown L97.909 - Non-pressure SlabyAlejo Active [facility] chronic ulcer of Community unspecified part of Hospital unspecified lower leg Repository with unspecified severity / L97.909(ICD-10) Unknown L03.115 - Cellulitis SlabAlejo pickard Active [facility] of right lower limb / Community L03.115(ICD-10) Hospital Repository PROCEDURES PROCEDURES No Procedure Records FoundRESULTS RESULTS PROGRESS Observed: 08/03/2018 Status: COMPLETED Source: [place] 8:49 AM [facility] REPOSITORY HNO ID: [id number] Author: Lizzie Springer Service: (none) Author Type: Supervisor Shearing Type: Progress Notes Filed: 08/03/2018 8:49 AM Note Text: I called and spoke with Kelsi and she states there's no discharge plans in place at this time. VENOUS DUPLEX LOWER Observed: 07/29/2018 Status: F Source: [place] EXTREMITY 7:05 AM [facility] REPOSITORY [facility] Cardiovascular Services [address] [place] [address] Venous Duplex - [place] Extrem 07/25/18 0831 MR#: [id number] Acct: [id number] Name: VICKI HERNANDEZ Rep #: [id number] : 1960 57 From: Henry Caballero MD Attending Dr: Rod Hollingsworth DO Status: DIS IN Ordering Dr: Billy Bowling MD Date: 07/23/18 Location: [facility] Sex: F C Admitted: 07/22/18 Reason For Study: LEG PAIN AND SWELLING RIGHT LEFT GSV is normal. GSV is normal. CFV is compressible, spontaneous, phasic, CFV is compressible, spontaneous, phasic, competent and demonstrates normal competent, and demonstrates normal augmentation. augmentation. FV is compressible, spontaneous, phasic, FV is compressible, spontaneous, phasic, competent and demonstrates normal competent and demonstrates normal augmentation. augmentation. POP V is compressible, spontaneous, phasic, POP V is compressible, spontaneous, phasic, competent and demonstrates normal competent and demonstrates normal augmentation. augmentation. PTV is compressible. PTV is compressible. Procedure Exam performed portable in patient room. Limited exam due to severe swelling and body habitus Mid/dist FV, T/P trunk and PER V not visualized bilaterally. A preliminary report was called and/or faxed to [facility]. <> Interpretation Summary Deep veins of the lower extremities are bilaterally patent and compressible segmentally. There is no evidence of deep vein thrombosis on either side. Valvular competence appears intact within the proximal deep venous systems bilaterally. The greater saphenous veins appear bilaterally patent and compressible segmentally. The mid- and distal femoral veins, tibio-peroneal trunks, and peroneal veins were not visualized on either side due to swelling and the patient's body habitus. Ordering Physician: Billy Bowling Referring Physician: Axel Costello Performed By: Breana Goldberg RVT 07/29/18703 Date Henry Caballero MD CC: Rajesh Holman; Billy Bowling MD; Rod Hollingsworth DO; Rajesh Holman MD Date Dictated: 07/25/18 0831 Date Transcribed: 07/29/18703 Dog Licenser: Signed DISCHARGE SUMMARY Observed: 07/28/2018 Status: F Source: SHEILA 9:15 AM [facility] REPOSITORY [facility] Medical Records Department [address] [place] [address] Discharge Summary 07/26/18 1453 MR#: [id number] Acct: [id number] Name: VICKI HERNANDEZ Rep #: [id number] : 1960 57 From: Randall LEES PCP: Rajesh Holman Status: DIS IN Y Location: [address] ADDENDUM by Rod Hollingsworth DO on 07/28/18 at 0915 Code Visit Patient was seen and examined on 07/26/18 independently of Randall Orozco, we received approval today for transfer to an extended care facility for ongoing rehabilitation services. Patient's heart rate remains under fair control, I have decided to change the patient to an extended release Cardizem preparation for use at the long-term. Physical exam: On examination she appeared in good health and spirits. Vital signs as documented. Skin warm and dry and without overt rashes. Neck without JVD. Lungs clear. Heart exam notable for irregular rhythm, Abdomen unremarkable and without evidence of organomegaly, masses, or abdominal aortic enlargement. Patient is morbidly obese which makes examination difficult. Extremities-generalized lower leg edema is noted bilaterally with changes indicative of lymphedema. Neuro: Cranial nerves II through XII are grossly intact, no focal motor deficits were noted. Psych: Patient is alert and oriented x3 and does not appear to be depressed or anxious. I have reviewed Randall Orozco's discharge summary including his assessment and medical plan of care and endorse it. Inpatient E AND M: [id number] Disch Hosp 07/28/18 0915 <Electronically signed by Rod Hollingsworth DO> Date Rod Hollingsworth DO cc: YOANA Orozco; Rajesh Holman; Rod Hollingsworth DO; Rajesh Holman MD * Signed Discharge Date and Diagnosis - Problem List Patient Problems: Active and Suspected Problems (Last Reviewed 07/23/18 @ 03:27 by Billy Bowling MD) Acute hypoxemic respiratory failure (Acute) Date of Admission: 07/22/18 Date of Discharge: 07/26/18 - Primary Discharge Diagnosis Active and Suspected Problems (Last Reviewed 07/23/18 @ 03:27 by Billy Bowling MD) Acute hypoxemic respiratory failure (Acute) 2/2 Acute intermediate EF CHF and COPD exacerbation, pulmonary htn. Afib with RVR HUNTER noncompliant with BiPAP DMt2 Lymphedema with old MRSA+ wounds CKD III Normocytic anemia Depression/Anxiety - Secondary Discharge Diagnosis Chronic Problems (Last Reviewed 07/23/18 @ 03:27 by Billy Bowling MD) Ulcer of right lower extremity with fat layer exposed (Chronic) Ulcer of left lower extremity with fat layer exposed (Chronic) Venous insufficiency of both lower extremities (Chronic) Hx MRSA infection (Chronic) COPD exacerbation (Chronic) Lymphedema (Chronic) Depression (Chronic) Atrial fibrillation with RVR (Chronic) Chronic acquired lymphedema (Chronic) Nonhealing ulcer of multiple sites of left lower extremity with fat layer exposed (Chronic) Iron deficiency anemia, unspecified (Chronic) Sleep apnea (Chronic) Poor compliance with CPAP treatment (Chronic) Biatrial enlargement (Chronic) Non-healing wound (Chronic) Chronic anticoagulation (Chronic) Diastolic CHF, chronic (Chronic) Pulmonary hypertension (Chronic) Morbid obesity (Chronic) Chronic atrial fibrillation (Chronic) Type 2 diabetes mellitus (Chronic) Hypertension (Chronic) Hospital Course and Treatment Imaging Results: RAD/Chest 1 View (Portable) IMPRESSION: There is moderate enlargement of the cardiac silhouette with mild edema. There is no obvious effusion. RAD/Chest 1 View (Portable) IMPRESSION: Stable cardiac enlargement, probable mild edema without change. 07/26/18 05:55 Chest 1 View (Portable) [RAD] AM (NON MEDS) Echo: Interpretation Summary The study was technically difficult. Mild global left ventricular systolic dysfunction. The estimated ejection fraction is 45 %. D shaped septum in systole and diastole. Mildly dilated right ventricle. Mild global right ventricular systolic dysfunction. The left atrium is moderately enlarged. The right atrium is moderately enlarged. There is mild mitral annular calcification. Mild papillary muscle dysfunction of the mitral valve. Mild-Moderate (1-2+) eccentric mitral valve insufficiency. Mild (1+) tricuspid valve insufficiency. Aortic sclerosis, no stenosis. Mild (1+) pulmonic valve insufficiency. Right ventricular systolic pressure estimated to be 44 mmHg. Unable to assess diastolic dysfunction. Consultations 07/23/18 00:20 Consult: Onc/Wound/diesel inspector Routine Comment: BILATERAL LEG WOUND Operations: None Procedures: 2-D Echocardiogram Summary of Care Provided: Hospital Course: The patient is a 57 year old F with pmhx of diastolic CHF, COPD, Morbid obesity, COPD, HTN, chronic Afib, lymphedema and staph + chronic wounds for which she follows at the wound care center,HUNTER noncompliant with Bipap, chronic anemia, depression and anxiety, who presented to the ER from home with increased SOB and LE edema. She was found to have CHF exacerbation and reported difficulty urinating and increased 50 lb weight gain recently. She was admitted to the PCU and placed on IV lasix, and oral steroids. KRISTEN wraps were provided, O2 was provided by [facility], which she does not use at home. Bipap was offered but she refused to use it while here. She was placed on SSI with increased doses of insulin. She was provided with wound care and dressing changes for her lymphedema. She developed Afib with RVR while here. She reported that her cardizem dose of 480 mg daily had been reduced to 120 qd as her PCP did not feel comfortable prescribing it at that dose - she was placed on 480 after a hospital admission last year but never followed up with a clinic lead. She was given IV cardizem and started on lopressor. Her rate was controlled and she was transitioned to PO cardizem and lopressor. Her rate remained controlled and she continued to diurese with good weight loss. Her echo showed intermediate EF of 45%, mild pulmonary HTN, D shaped septum She desired to be placed in SNF as she has had increasing difficulty walking at home. She was seen by PTOT and determined to need further skilled and was approved to go to [facility]. She was transitioned to PO lasix. She will need continued lymphedema wound care at the SNF. She informed me that she will be referred to the lymphedema clinic by her wound clinic when her chronic LE wounds have resolved. She will need her BMP and weights followed. She will need referral to a clinic lead - I have recommended Dr. Suazo in 3-4 weeks. She will need PCP f/u in 2 weeks. Please continue to monitor her blood sugars and adjust her insulin as needed. She will go on a prednisone taper and her insulin needs may change. We deferred starting an KRISTEN inhibitor as her BP is running low on the new doses of cardizem and lopressor. Her catheter was maintained as she was having difficulty voiding prior to admission, and she will need a voiding trial with discontinuation of the catheter in the next 3-5 days. She should continue Bipap as she is prescribed at home, however as noted she does not wear it - she did not wear it during this admission altho it was provided. She was discharged to SNF in stable condition. This patient was seen by Randall Orozco PA-C under the supervision of Dr. Hollingsworth. [] Patient Problems: Active and Suspected Problems (Last Reviewed 07/23/18 @ 03:27 by Billy Bowling MD) Acute hypoxemic respiratory failure (Acute) - Physical Exam General: Alert, Oriented x3, Cooperative HEENT: Atraumatic, PERRLA, EOMI, Normocephalic Neck: Supple, No JVD, Negative Carotid Bruits Lungs: Clear to auscultation, Normal air movement Cardiovascular: No murmurs, Murmur Abdomen: Bowel Sounds Present, Soft, Non Tender, Obese Extremities: Capillary Refill Less than 3 Seconds, Edema Skin: No rashes, No breakdown Musculoskeletal: No Tenderness to Palpation of Joints or Extremities Neurological: Cranial nerves II-XII grossly intact Psych/Mental Status: Normal Affect, Appropriate, Alert and oriented to time, place, person, mood and affect Vital Signs Temp Pulse Resp BP Pulse Ox 98.0 F 102 H 18 125/67 H 94 07/26/18 13:44 07/26/18 13:44 07/26/18 13:44 07/26/18 13:44 07/26/18 13:44 Oxygen Flow Rate (L/min) 2 Oxygen Delivery Method Nasal Cannula Weight: 447 lb 12.141 oz Body Mass Index (BMI) 72.8 Intake and Output for Last 24 Hours Microbiology Past 72 Hours 07/22/18 22:15 Blood Culture - Preliminary Laboratory Tests Past 24 Hrs Sodium 141 Potassium 4.6 Chloride 104 Carbon Dioxide 28.0 Anion Gap 9 POC Glucose POC Glucose 170 H 188 H 228 H POC Glucose 269 H Discharge Diet: Low fat/ Low Cholesterol, 1800 Calorie Control Diet, 2000 mg Sodium Diet Discharge Activity: Return to Normal Activity Home Medications: Medications to take at Discharge albuterol sulfate HFA 90 mcg/actuation aerosol inhaler 2 puff INHALATION Q4H PRN g 08/26/17 fluticasone 50 mcg/actuation nasal spray,suspension 2 spray INTRANASAL DAILY 08/26/17 Budesonide/Formoterol 160/4.5 [Symbicort 160/4.5 Mcg Inhaler (SP)] 1 inh INHALATION DAILY 12/06/17 Acetaminophen [Pain Relief Extra Strength] 650 mg PO Q6H 12/24/17 Apixaban [Eliquis] 5 mg PO BID 03/07/18 Gabapentin [Neurontin] 400 mg PO 4X/DAY 03/07/18 Insulin Lispro [Humalog] 6 unit SQ TIDCM 03/07/18 Lorazepam [Ativan] 0.5 mg PO Q6H PRN PRN 03/07/18 Multivitamin [Daily Multiple Vitamin] 1 each PO DAILY 03/07/18 Venlafaxine HCl [Effexor Xr] 75 mg PO BID 03/07/18 Nut.tx.gluc Intol,Lf,Soy/Fiber [Boost Glucose Control Liquid] 237 ml PO BID 06/07/18 Albuterol Aerosols [Ventolin Aerosols] 2.5 mg INHALATION Q2H PRN PRN vial.neb. 07/26/18 Diltiazem CD [Cardizem CD] 120 mg PO DAILY #1 capsule 07/26/18 Insulin Glargine [Lantus SoloStar Pen] 12 units SC QHS pen 07/26/18 Ipratropium/Albuterol Sulfate [Duoneb] 3 ml INHALATION Q4H.RT ampul.neb 07/26/18 Metoprolol Tartrate [Lopressor (beta katie)] 100 mg PO BID tablet 07/26/18 Potassium Chloride [K-Dur] 40 meq PO DAILYCM tablet 07/26/18 Prednisone 10 mg PO DAILY #18 tablet 07/26/18 Following Prescrptions Were Given to Patient: Diltiazem CD [Cardizem CD] 120 mg PO DAILY #1 capsule Prednisone 10 mg PO DAILY #18 tablet Primary Care Physician: Rajesh Holman [Primary Care Provider] - Please follow up with your Primary Care Physician in: 2 weeks Please Follow Up With: Oral Suazo MD When: 3-4 weeks Disposition: [facility] facility Minutes spent on discharge:: 35 Patient Condition:: Stable Medical Necessity - Tobacco Use Smoking Status: Former smoker Meaningful Use Info Meaningful Use Diagnoses (Choose all that apply): CHF - CHF KRISTEN/ARB ordered at discharge?: No Reason KRISTEN/ARB not ordered?: Hypotension Documented LVEF (%): 45 07/26/18 1508 <Electronically signed by Randall LEES> Date Randall LEES 07/26/18 1800<Electronically signed by Rod Hollingsworth DO> Cosigner Signature (if applicable): Date Rod Hollingsworth DO CC: YOANA Orozco; Rajesh Holman; Rod Hollingsworth DO; Rajesh Holman MD Signed PROGRESS Observed: 07/27/2018 Status: COMPLETED Source: [place] 10:55 AM [facility] REPOSITORY HNO ID: [id number] Author: Rajesh Holman Service: (none) Author Type: Physician Type: Progress Notes Filed: 07/27/2018 3:06 PM Note Text: Agree with below. Thank you! PROGRESS Observed: 07/27/2018 Status: COMPLETED Source: [place] 10:38 AM [facility] REPOSIT[facility] HNO ID: [id number] Author: Melvina (Rn) Sung Service: (none) Author Type: Registered Nurse Type: Progress Notes Filed: 07/27/2018 10:53 AM Note Text: TRANSITION CARE MANAGEMENT (TCM) DISCHARGE TO POST ACUTE FACILITY TC to MEÑO Dolan and Vidya Win NP for Dr. Gallardo at [facility], discussed concerns regarding patient's need for extended rehab to enable pt to go home safely and be able to ambulate to [facility] to get to PCP appointments. Patient has refused to come into office to be seen since last hospital admission and has not been seen by PCP in past 14 months. SW and [facility] have called [facility] and [facility] trying to get provider to go to patient's home but they didn't have anyone in [place]. We also called multiple transportation companies in [facility] without any success for transport to office. SYSTEM SUPPORT ANALYST will follow patient and discuss in team meetings regarding patient's needs. Merchandise Appraiser took PCC name and number for care coordination and discharge planning. Melvina Almaraz RN July 27, 2018 10:53 AM POST ACUTE TRANSFER SUMMARY: -Pt discharged from [facility] on 07/26 -Post Acute Facility Admitted to [facility] -Admitted for: Copied from [facility] Records: Acute hypoxemic respiratory failure (Acute) 2/2 Acute intermediate EF CHF and COPD exacerbation, pulmonary htn. Afib with RVR HUNTER noncompliant with BiPAP DMt2 Lymphedema with old MRSA+ wounds CKD III Normocytic anemia Depression/Anxiety Echo: Interpretation Summary The study was technically difficult. Mild global left ventricular systolic dysfunction. The estimated ejection fraction is 45 %. D shaped septum in systole and diastole. Mildly dilated right ventricle. Mild global right ventricular systolic dysfunction. The left atrium is moderately enlarged. The right atrium is moderately enlarged. There is mild mitral annular calcification. Mild papillary muscle dysfunction of the mitral valve. Mild-Moderate (1-2+) eccentric mitral valve insufficiency. Mild (1+) tricuspid valve insufficiency. Aortic sclerosis, no stenosis. Mild (1+) pulmonic valve insufficiency. Right ventricular systolic pressure estimated to be 44 mmHg. Unable to assess diastolic dysfunction. Procedures: 2-D Echocardiogram Hospital Course: The patient is a 57 year old F with pmhx of diastolic CHF, COPD, Morbid obesity, COPD, HTN, chronic Afib, lymphedema and staph + chronic wounds for which she follows at the wound care center,HUNTER noncompliant with Bipap, chronic anemia, depression and anxiety, who presented to the ER from home with increased SOB and LE edema. She was found to have CHF exacerbation and reported difficulty urinating and increased 50 lb weight gain recently. She was admitted to the PCU and placed on IV lasix, and oral steroids. KRISTEN wraps were provided, O2 was provided by [facility], which she does not use at home. Bipap was offered but she refused to use it while here. She was placed on SSI with increased doses of insulin. She was provided with wound care and dressing changes for her lymphedema. She developed Afib with RVR while here. She reported that her cardizem dose of 480 mg daily had been reduced to 120 qd as her PCP did not feel comfortable prescribing it at that dose - she was placed on 480 after a hospital admission last year but never followed up with a clinic lead. She was given IV cardizem and started on lopressor. Her rate was controlled and she was transitioned to PO cardizem and lopressor. Her rate remained controlled and she continued to diurese with good weight loss. Her echo showed intermediate EF of 45%, mild pulmonary HTN, D shaped septum She desired to be placed in SNF as she has had increasing difficulty walking at home. She was seen by PTOT and determined to need further skilled and was approved to go to [facility]. She was transitioned to PO lasix. She will need continued lymphedema wound care at the SNF. She informed me that she will be referred to the lymphedema clinic by her wound clinic when her chronic LE wounds have resolved. She will need her BMP and weights followed. She will need referral to a clinic lead - I have recommended Dr. Suazo in 3-4 weeks. She will need PCP f/u in 2 weeks. Please continue to monitor her blood sugars and adjust her insulin as needed. She will go on a prednisone taper and her insulin needs may change. We deferred starting an KRISTEN inhibitor as her BP is running low on the new doses of cardizem and lopressor. Her catheter was maintained as she was having difficulty voiding prior to admission, and she will need a voiding trial with discontinuation of the catheter in the next 3-5 days. She should continue Bipap as she is prescribed at home, however as noted she does not wear it - she did not wear it during this admission altho it was provided. She was discharged to SNF in stable condition. Melvina Almaraz RN July 27, 2018 10:46 AM NATHANAEL Observed: 07/27/2018 Status: COMPLETED Source: [place] 12:00 AM [facility] REPOSITORY Patient Outreach (FAMPWS) VICKI HERNANDEZ ([id number]) 1960 F Date Time Provider Department 07/27/18 MELVINA ALMARAZ (RN) MARTAPWS During your visit today, we recorded the following information about you: Melvina Almaraz RN 07/27/2018 10:53 AM Addendum TRANSITION CARE MANAGEMENT (TCM) DISCHARGE TO POST ACUTE FACILITY TC to MEÑO Dolan and Vidya Win, SYSTEM SUPPORT ANALYST for Dr. Gallardo at [facility], discussed concerns regarding patient's need for extended rehab to enable pt to go home safely and be able to ambulate to van to get to PCP appointments. Patient has refused to come into office to be seen since last hospital admission and has not been seen by PCP in past 14 months. SW and [facility] have called [facility] and [facility] trying to get provider to go to patient's home but they didn't have anyone in [facility]. We also called multiple transportation companies [place] [facility] without any success for transport to office. SYSTEM SUPPORT ANALYST will follow patient and discuss in team meetings regarding patient's needs. Merchandise Appraiser took PCC name and number for care coordination and discharge planning. Melvina Almaraz RN July 27, 2018 10:53 AM POST ACUTE TRANSFER SUMMARY: -Pt discharged from [facility] on 07/26 -Post Acute Facility Admitted to [facility] -Admitted for: Copied from [facility] Records: Acute hypoxemic respiratory failure (Acute) 2/2 Acute intermediate EF CHF and COPD exacerbation, pulmonary htn. Afib with RVR HUNTER noncompliant with BiPAP DMt2 Lymphedema with old MRSA+ wounds CKD III Normocytic anemia Depression/Anxiety Echo: Interpretation Summary The study was technically difficult. Mild global left ventricular systolic dysfunction. The estimated ejection fraction is 45 %. D shaped septum in systole and diastole. Mildly dilated right ventricle. Mild global right ventricular systolic dysfunction. The left atrium is moderately enlarged. The right atrium is moderately enlarged. There is mild mitral annular calcification. Mild papillary muscle dysfunction of the mitral valve. Mild-Moderate (1-2+) eccentric mitral valve insufficiency. Mild (1+) tricuspid valve insufficiency. Aortic sclerosis, no stenosis. Mild (1+) pulmonic valve insufficiency. Right ventricular systolic pressure estimated to be 44 mmHg. Unable to assess diastolic dysfunction. Procedures: 2-D Echocardiogram Hospital Course: The patient is a 57 year old F with pmhx of diastolic CHF, COPD, Morbid obesity, COPD, HTN, chronic Afib, lymphedema and staph + chronic wounds for which she follows at the wound care center,HUNTER noncompliant with Bipap, chronic anemia, depression and anxiety, who presented to the ER from home with increased SOB and LE edema. She was found to have CHF exacerbation and reported difficulty urinating and increased 50 lb weight gain recently. She was admitted to the PCU and placed on IV lasix, and oral steroids. KRISTEN wraps were provided, O2 was provided by [facility], which she does not use at home. Bipap was offered but she refused to use it while here. She was placed on SSI with increased doses of insulin. She was provided with wound care and dressing changes for her lymphedema. She developed Afib with RVR while here. She reported that her cardizem dose of 480 mg daily had been reduced to 120 qd as her PCP did not feel comfortable prescribing it at that dose - she was placed on 480 after a hospital admission last year but never followed up with a clinic lead. She was given IV cardizem and started on lopressor. Her rate was controlled and she was transitioned to PO cardizem and lopressor. Her rate remained controlled and she continued to diurese with good weight loss. Her echo showed intermediate EF of 45%, mild pulmonary HTN, D shaped septum She desired to be placed in SNF as she has had increasing difficulty walking at home. She was seen by PTOT and determined to need further skilled and was approved to go to [facility]. She was transitioned to PO lasix. She will need continued lymphedema wound care at the SNF. She informed me that she will be referred to the lymphedema clinic by her wound clinic when her chronic LE wounds have resolved. She will need her BMP and weights followed. She will need referral to a clinic lead - I have recommended Dr. Suazo in 3-4 weeks. She will need PCP f/u in 2 weeks. Please continue to monitor her blood sugars and adjust her insulin as needed. She will go on a prednisone taper and her insulin needs may change. We deferred starting an KRISTEN inhibitor as her BP is running low on the new doses of cardizem and lopressor. Her catheter was maintained as she was having difficulty voiding prior to admission, and she will need a voiding trial with discontinuation of the catheter in the next 3-5 days. She should continue Bipap as she is prescribed at home, however as noted she does not wear it - she did not wear it during this admission altho it was provided. She was discharged to SNF in stable condition. Melvina Almaraz RN July 27, 2018 10:46 AM Rajesh Holman MD 07/27/2018 3:06 PM Signed Agree with below. Thank you! Lizzie Springer CMA 08/03/2018 8:49 AM Signed I called and spoke with Kelsi and she states there's no discharge plans in place at this time. Allergies As of Date: 07/27/2018 Noted Allergy Reaction CODEINE 11/19/2010 14 - Other: See Comments Comments: Itching, vomitting LATEX 11/19/2010 14 - Other: See Comments Comments: Itching,hives,dyspnea PHENOBARBITAL 11/19/2010 14 - Other: See Comments Comments: Nausea, itching TALWIN (PENTAZOCINE LACTATE) 11/19/2010 1 - Mental Status Change Comments: Hallucinations TREE NUT 02/07/2015 10 - Anaphylaxis Date Reviewed: 06/08/2017 Reviewed by: Karena Shaikh Cadd Drafter - Fully Assessed Reason for Visit: Transition Of Care [4074] Cmt: Transfer to SNF, [facility] Prescriptions as of 07/27/2018 Sig: ACETAMINOPHEN ER 650 MG TABLE* Take 650 mg by mouth every 8 * APIXABAN 5 MG TABLET Take 1 tablet by mouth twice * BUDESONIDE-FORMOTEROL HFA 160* Inhale 2 Puffs as instructed * COMPOUNDED PRESCRIPTION Oxygen for home @ 2L per BIPA* COMPOUNDED PRESCRIPTION CBC and Diff and CMP to be dr* CPAP DILTIAZEM 120 MG TABLET Take 4 tablets by mouth once * DILTIAZEM SR 120 MG 24 HR CAP Take 1 capsule by mouth once * EXENATIDE 5 MCG/DOSE (250 MCG* INJECT 5 mcg SUBCUTANEOUSLY T* FLUTICASONE 50 MCG/ACTUATION * Use 2 Sprays in each nostril * GABAPENTIN 400 MG CAPSULE Take 1 capsule by mouth four * INSULIN GLARGINE (U-100) 100 * Inject 15 Units subcutaneousl* INSULIN LISPRO (U-100) 100 UN* Inject 6 Units subcutaneously* PEN NEEDLE, DIABETIC 29 GAUGE* Use one needle per dose. 5 p* IPRATROPIUM-ALBUTEROL 0.5 MG-* Inhale 3 mL as instructed kris* LORAZEPAM 0.5 MG TABLET Take 1 tablet by mouth every * NADOLOL 40 MG TABLET TAKE THREE TABLETS BY MOUTH D* POLYETHYLENE GLYCOL 3350 17 G* Take 1 Packet by mouth as nee* THERAPEUTIC MULTIVITAMIN TABL* Take 1 tablet by mouth once d* TRAMADOL 50 MG TABLET Take 1 tablet by mouth every * VENLAFAXINE ER 75 MG CAPSULE,* Take 1 capsule by mouth twice* Problem List As Of Date 07/27/2018 Noted Resolved Diabetes (HCC) [E11.9] INVALID FOR* More... Atrial fibrillation (HCC) [I48.91] INVALID FOR* More... Lymphedema [I89.0] INVALID FOR* More... Heart failure, systolic and diastolic, acute on*INVALID FOR*12/31/2014 More... Obesity, morbid, BMI 50 or higher (HCC) [E66.01]INVALID FOR* More... Hypertension [I10] INVALID FOR* More... HUNTER (obstructive sleep apnea) [G47.33] INVALID FOR* More... Pulmonary HTN (HCC) [I27.20] INVALID FOR* More... Atrial fibrillation with RVR (HCC) [I48.91] INVALID FOR*09/23/2016 More... Heart failure, diastolic, acute (HCC) [I50.31] INVALID FOR* More... Counseling and coordination of care [Z71.89] INVALID FOR*04/12/2015 More... Monoclonal gammopathy [D47.2] INVALID FOR* Empty sella turcica (HCC) [E23.6] INVALID FOR* More... Uncontrolled type 2 diabetes mellitus without c*INVALID FOR*09/23/2016 Encounter Status:Closed by MELVINA ALMARAZ on 07/27/18 12 LEAD ELECTROCARDIOGRAM Observed: 07/26/2018 Status: F Source: [place] 2:07 PM [facility] REPOSITORY [facility] Cardiovascular Services [address] [place] [address] 12 Lead EKG 07/22/18 2156 MR#: [id number] Acct: [id number] Name: VICKI HERNANDEZ Rep #: [id number] : 1960 57 From: Oral Suazo MD Attending Dr: Rod Hollingsworth DO Status: ADM IN Ordering Dr: Maisha Dumont DO Date: 07/22/18 Location: [facility] Sex: F C Admitted: 07/22/18 Test Reason : SOB Blood Pressure : / mmHG Vent. Rate : 146 BPM Atrial Rate : 159 BPM P-R Int : 000 ms QRS Dur : 084 ms QT Int : 286 ms P-R-T Axes : 000 071 074 degrees QTc Int : 445 ms AGE AND GENDER SPECIFIC ECG ANALYSIS Atrial fibrillation with rapid ventricular response with premature ventricular or aberrantly conducted complexes Low voltage QRS Abnormal ECG Confirmed by ORAL SUAZO MD ([id number]), assignment desk editor KERRY HERNANDEZ ([id number]) on 07/26/2018 2:06:38 PM Referred By: DONNA Confirmed By:ORAL SUAZO MD 07/26/18 1406 Date Oral Suazo MD CC: Rajesh Holman; Rod Hollingsworth DO; Maisha Dumont DO; Rajesh Holman MD Signed PROGRESS Observed: 07/26/2018 Status: COMPLETED Source: [place] 2:06 PM [facility] REPOSITORY [facility] ID: [id number] Author: Melvina (Rn) Sung Service: (none) Author Type: Registered Nurse Type: Progress Notes Filed: 07/26/2018 5:08 PM Note Text: PRIMARY CARE COORDINATION FOLLOW-UP NOTE Provider Action/FYI FYI Patient identified by name and date of . YES Spoke to PCU nurse and MEÑO Abdul Summary: TC from MEÑO Abdul at [facility], discussed all information below. Informed PCP doesn't feel 1-2 weeks of rehab will be enough for patient to enable her to ambulate so she can get into provider office to get proper medical care. MEÑO asked if son was involved in patient's care. Informed son has contacted PCC when pt's condition has worsened but PCC received a message from pt stating she didn't want PCC to contact pt's son while she is in hospital but it is okay to contact pt's dgt and mother. TC from patient, left message stating she is admitted to [facility] and she doesn't want PCC to contact her son. She doesn't want him to know she is in hospital until she is discharged. States she thinks she may be going to a long-term for 1-2 weeks after hospital discharge. TC to PCU nurse, asked to speak to SW. States SW is busy. Discussed patient's hospitalization this year, transfer to LTAC then to SNF. Informed pt has not come in to see PCP for 14 months despite PCC strongly encouraging pt come in for appt. Pt states she cannot ambulate to van and get in and out in order to come into office. Informed PCC called [facility] and they don't go to [facility]. PCC called [facility] re providers who travel to home of pt and no one in [facility] does those services. Called transportation companies in [facility] and have not been able to find affordable transportation. PCP has strong concern about continuing to treat patient without an exam. Discussed high dose of cardizem. Faxed records from [facility], [facility] and cardiology consult regarding cardizem dosage. TC from [facility] left message stating patient was having difficulty breathing and she was taken by squad then admitted to [facility]. [employer] Manager plan for next outreach: Will follow up at discharge Signature Melvina Almaraz RN July 26, 2018 TRANSFER TO [facility] Observed: 07/26/2018 Status: F Source: [facility] 12:43 PM [facility] REPOSITORY [facility] Medical Records Department [address] [place] [address] Transfer to [facility] MR#: [id number] Acct: [id number] Name: VICKI HERNANDEZ Rep #: [id number] : 1960 57 From: Randall LEES PCP: Rajesh Holman Status: ADM IN VICKI HERNANDEZ (Patient) (Health Ins. Claim No.) (Day of Discharge to Facility) Certification of patient admission REQUIRED AT TIME OF ADMISSION. I CERTIFY THAT POST-HOSPITAL ECF SERVICES ARE REQUIRED TO BE GIVEN ON AN IN-PATIENT BASIS BECAUSE OF THE ABOVE NAMED PATIENT'S NEED FOR CHCF CARE ON A CONTINUING BASIS FOR THE CONDITION(S) FOR WHICH HE/SHE WAS RECEIVING IN-PATIENT HOSPITAL SERVICES PRIOR TO HIS/HER TRANSFER TO THE ECF. 07/26/18 1133 <Electronically signed by Randall LEES> Date Randall Orozco PA - Diet 07/23/18 00:21 Diet: Cardiac/Low Cholesterol Food consistency:: Regular Liquid Consistency:: Regular/Thin Diet Comments: No concentrated sweets. - Routine Orders/Code Status Suppository Type: Dulcolax 10mg Suppository Frequency: Daily PRN O2 Frequency: PRN Keep PO Greater than or Equal to (%): 89 Routine Lab Work: CBC - 1 week, BMP - 3 days Code Status: Full Code - Wound(s) Left inner ankle Wound Type: healing stasis ulcer Dressing Change: Dry Sterile Dressing Left outer leg Wound Type: Neuropathic/Diabetic Foot Ulcer Right outer leg Wound Type: Neuropathic/Diabetic Foot Ulcer right posterior lower leg Wound Type: Stasis Ulcer Dressing Change: AntiMicrobial (Aquacel AG, etc) left posterior lower leg Wound Type: Stasis Ulcer Dressing Change: AntiMicrobial (Aquacel AG, etc) - Therapies Physical Therapy: Eval and Treat Occupational Therapy: Eval and Treat - Problem/Diagnosis (1) Acute on chronic diastolic (congestive) heart failure Status: Acute Current Visit: No (2) Acute hypoxemic respiratory failure Status: Acute Current Visit: Yes (3) Atrial fibrillation with RVR Status: Chronic Current Visit: Yes (4) COPD exacerbation Status: Chronic Current Visit: Yes (5) Lymphedema Status: Chronic Current Visit: Yes (6) Depression Status: Chronic Current Visit: Yes (7) Hypertension Status: Chronic Current Visit: No (8) Iron deficiency anemia, unspecified Status: Chronic Current Visit: No (9) Morbid obesity Status: Chronic Current Visit: No (10) Nonhealing ulcer of multiple sites of left lower extremity with fat layer exposed Status: Chronic Current Visit: No (11) Pulmonary hypertension Status: Chronic Current Visit: No (12) Sleep apnea Status: Chronic Current Visit: No (13) Type 2 diabetes mellitus Status: Chronic Current Visit: No - Allergies/Procedures Done in Hospital Allergies/Adverse Reactions: Allergies latex Allergy (Verified 07/22/18 21:42) Itching pentazocine lactate [From Talwin] Allergy (Verified 07/22/18 21:42) Itching phenobarbital Allergy (Verified 07/22/18 21:42) Itching tree nut Allergy (Verified 07/22/18 21:42) Anaphylaxis codeine Adverse Reaction (Verified 07/22/18 21:42) Upset Stomach Procedures: 2-D Echocardiogram - Type of Care/Length of Stay Estimated LOS: Convalescent Care Less Than 30 days Type of Care Needed: Skilled Rehab Potential: Fair Prognosis: Fair - Additional Orders/Day of Discharge Day of Discharge: 07/26/18 - Dietary and Speech Recommendations Dietitian Recommendations/Changes: Rec diet change to 2000 jumana Cardiac/ low sodium w/ fluid restriction. Rec Josafat bid - if ordered rec d/c ONS medpass - Follow Up Care Primary Care Physician: Rajesh Holman [Primary Care Provider] - Please follow up with your Primary Care Physician in: 2 weeks Please Follow Up With: Oral Suazo MD When: 3-4 weeks 07/26/18 1133 <Electronically signed by Randall LEES> Date Randall LEES CC: Rajesh Holman; Rajesh Holman MD Signed BEDSIDE GLUCOSE Collected: 07/26/2018 Status: F Source: [place] 11:52 AM [facility] REPOSITORY TYPE CODE TESTS RESULT OUT OF REFERENCE UNITS RANGE LAB L501.080 70-110 mg/dL High BEDSIDE GLU 170 Result Comment: MANAGEMENT OF PATIENT CARE PER NURSING PROTOCOL Performed By: #### L501.080 #### [facility] Point of Care [address] [place] [address] BEDSIDE GLUCOSE Collected: 07/26/2018 Status: F Source: [place] 6:52 AM [facility] REPOSITORY TYPE CODE TESTS RESULT OUT OF REFERENCE UNITS RANGE LAB L501.080 70-110 mg/dL High BEDSIDE GLU 188 Result Comment: MANAGEMENT OF PATIENT CARE PER NURSING PROTOCOL Performed By: #### L501.080 #### [facility] Point of Care [address] [place] [address] BASIC METABOLIC Collected: 07/26/2018 Status: F Source: [place] PROFILE (BMP) 5:40 AM [facility] REPOSITORY TYPE CODE TESTS RESULT OUT OF RANGE REFERENCE UNITS LAB L501.0100 74-106 mg/dL High GLU 183 Result Comment: Fasting Glucose result greater than or equal to 126 mg/dL suggests DIABETES MELLITUS per A.D.A. criteria. Please note revised GLUCOSE reference range effective 2017. LAB L501.1000 7-18 mg/dL High BUN 46 LAB L501.1100 0.55-1.02 mg/dL High CREAT,SERUM 1.15 Result Comment: The validity of the calculated GFR AND GFRAA in patients over 70 years has not been determined. Clinical correlation is essential. LAB L501.1110 >60 mL/min Low EST GFR 51 Result Comment: Non- GFR Calc LAB L501.1115 >60 mL/min Normal EST GFR - AA 62 Result Comment: GFR Calc LAB L501.1255 ml/min Normal Estimated CRCL 49.31 LAB L501.1300 10-20 RATIO High BUN/CRE 40.0 LAB L501.2200 8.5-10 mg/dL Low .1 CA 8.4 LAB L501.5300 136-14 mmol/L Normal 5 NA 141 LAB L501.5600 3.5-5. mmol/L Normal 1 K 4.6 LAB L501.5900 98-107 mmol/L Normal CL 104 LAB L501.6100 21.0-3 mmol/L Normal 2.0 CO2 28.0 LAB L501.6200 5-15 Normal GAP 9 Performed By: #### L500.2500 #### [facility] [address] [place], [address] CHEST 1 VIEW Observed: 07/26/2018 Status: F Source: [place] (PORTABLE) 12:01 AM [facility] REPOSITORY [facility] Imaging Services [address] [place] [address] Chest 1 View (Portable) MR#: [id number] Acct: [id number] Name: VICKI HERNANDEZ Rep #: [id number] : 1960 F 57 From: Elza Ellis MD PCP: Rajesh Holman Status: ADM IN Study: Chest 1 View (Portable) Date of Exam: 07/26/18 Exam# [id number] Ordering Dr: Rod Hollingsworth DO STUDY: X-RAY CHEST REASON FOR EXAM: Female, 57 years old. Shortness of breath, dyspnea TECHNIQUE: Single AP portable view of the chest. COMPARISON: 07/22/2018. 12/24/2017. FINDINGS: There is no focal parenchymal abnormality. Bilateral prominent central vasculature and han without change. There is no demonstrated pleural abnormality. There is stable moderate cardiac enlargement. Normal mediastinum and han. Normal visualized pulmonary arteries. There is atherosclerotic calcification of the aortic arch with tortuosity. There are diffuse degenerative changes of the visualized thoracic spine. Normal visualized ribs, clavicles, and shoulders. There is no demonstrated abnormality of the visualized soft tissue structures of the upper abdomen. RAD/Chest 1 View (Portable) IMPRESSION: Stable cardiac enlargement, probable mild edema without change. Electronically Signed: Elza Ellis MD at 5:20 EST , Service support , CC: Rajesh Holman; Rod Hollingsworth DO Dog Licenser: Signed BEDSIDE GLUCOSE Collected: 07/25/2018 Status: F Source: [place] 11:37 PM [facility] REPOSITORY TYPE CODE TESTS RESULT OUT OF REFERENCE UNITS RANGE LAB L501.080 70-110 mg/dL High BEDSIDE GLU 228 Result Comment: MANAGEMENT OF PATIENT CARE PER NURSING PROTOCOL Performed By: #### L501.080 #### [facility] Point of Care [address] [place], [place] [address] BEDSIDE GLUCOSE Collected: 07/25/2018 Status: F Source: [place] 4:40 PM [facility] REPOSITORY TYPE CODE TESTS RESULT OUT OF REFERENCE UNITS RANGE LAB L501.080 70-110 mg/dL High BEDSIDE GLU 269 Result Comment: MANAGEMENT OF PATIENT CARE PER NURSING PROTOCOL Performed By: #### L501.080 #### [facility] Point of Care [address] [place] [address] BEDSIDE GLUCOSE Collected: 07/25/2018 Status: F Source: [place] 11:42 AM [facility] REPOSITORY TYPE CODE TESTS RESULT OUT OF REFERENCE UNITS RANGE LAB L501.080 70-110 mg/dL High BEDSIDE GLU 265 Result Comment: MANAGEMENT OF PATIENT CARE PER NURSING PROTOCOL Performed By: #### L501.080 #### [facility] Point of Care [address] [place] [address] BEDSIDE GLUCOSE Collected: 07/25/2018 Status: F Source: [place] 6:57 AM [facility] REPOSITORY TYPE CODE TESTS RESULT OUT OF REFERENCE UNITS RANGE LAB L501.080 70-110 mg/dL High BEDSIDE GLU 212 Result Comment: MANAGEMENT OF PATIENT CARE PER NURSING PROTOCOL Performed By: #### L501.080 #### [facility] Point of Care [address] [place] [address] BASIC METABOLIC Collected: 07/25/2018 Status: F Source: [place] PROFILE (BMP) 5:20 AM [facility] REPOSITORY TYPE CODE TESTS RESULT OUT OF RANGE REFERENCE UNITS LAB L501.0100 74-106 mg/dL High GLU 205 Result Comment: Glucose result greater than or equal to 200 mg/dL suggests DIABETES MELLITUS per A.D.A. criteria. Please note revised GLUCOSE reference range effective 2017. LAB L501.1000 7-18 mg/dL High BUN 49 LAB L501.1100 0.55-1.02 mg/dL High CREAT,SERUM 1.30 Result Comment: The validity of the calculated GFR AND GFRAA in patients over 70 years has not been determined. Clinical correlation is essential. LAB L501.1110 >60 mL/min Low EST GFR 44 Result Comment: Non- GFR Calc LAB L501.1115 >60 mL/min Low EST GFR - AA 54 Result Comment: GFR Calc LAB L501.1255 ml/min Normal Estimated CRCL 43.62 LAB L501.1300 10-20 RATIO High BUN/CRE 37.7 LAB L501.2200 8.5-10 mg/dL Low .1 CA 8.4 LAB L501.5300 136-14 mmol/L Normal 5 NA 141 LAB L501.5600 3.5-5. mmol/L Normal 1 K 4.8 LAB L501.5900 98-107 mmol/L Normal CL 104 LAB L501.6100 21.0-3 mmol/L Normal 2.0 CO2 27.0 LAB L501.6200 5-15 Normal GAP 10 Performed By: #### L500.2500 #### [facility] [address] [place], [address] CNPTOUTREACH Observed: 07/25/2018 Status: COMPLETED Source: [place] 12:00 AM [facility] REPOSITORY Patient Outreach (FAMPWS) VICKI HERNANDEZ ([id number]) 1960 F Date Time Provider Department 07/25/18 [facility]AZ (RN[facility] During your visit today, we recorded the following information about you: Melvina Almaraz RN 07/26/2018 5:08 PM Signed PRIMARY CARE COORDINATION FOLLOW-UP NOTE Provider Action/FYI FYI Patient identified by name and date of . YES Spoke to PCU nurse and MEÑO Abdul Summary: TC from MEÑO Abdul at [facility], discussed all information below. Informed PCP doesn't feel 1-2 weeks of rehab will be enough for patient to enable her to ambulate so she can get into provider office to get proper medical care. MEÑO asked if son was involved in patient's care. Informed son has contacted PCC when pt's condition has worsened but PCC received a message from pt stating she didn't want PCC to contact pt's son while she is in hospital but it is okay to contact pt's dgt and mother. TC from patient, left message stating she is admitted to [facility] and she doesn't want PCC to contact her son. She doesn't want him to know she is in hospital until she is discharged. States she thinks she may be going to a long-term for 1-2 weeks after hospital discharge. TC to PCU nurse, asked to speak to MEÑO. States SW is busy. Discussed patient's hospitalization this year, transfer to LTAC then to SNF. Informed pt has not come in to see PCP for 14 months despite PCC strongly encouraging pt come in for appt. Pt states she cannot ambulate to van and get in and out in order to come into office. Informed PCC called [facility] and they don't go to [facility]. PCC called [facility] providers who travel to home of pt and no one in [facility] does those services. Called transportation companies in [facility] and have not been able to find affordable transportation. PCP has strong concern about continuing to treat patient without an exam. Discussed high dose of cardizem. Faxed records from [facility], [place] and cardiology consult regarding cardizem dosage. TC from [place], left message stating patient was having difficulty breathing and she was taken by squad then admitted to [facility]. [employer] Manager plan for next outreach: Will follow up at discharge Signature Melvina Almaraz RN July 26, 2018 Allergies As of Date: 07/25/2018 Noted Allergy Reaction CODEINE 11/19/2010 14 - Other: See Comments Comments: Itching, vomitting LATEX 11/19/2010 14 - Other: See Comments Comments: Itching,hives,dyspnea PHENOBARBITAL 11/19/2010 14 - Other: See Comments Comments: Nausea, itching TALWIN (PENTAZOCINE LACTATE) 11/19/2010 1 - Mental Status Change Comments: Hallucinations TREE NUT 02/07/2015 10 - Anaphylaxis Date Reviewed: 06/08/2017 Reviewed by: Karena Shaikh Cadd Drafter - Fully Assessed Reason for Visit: 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 Control Specialist Hospital Follow Up [3610] Prescriptions as of 07/25/2018 Sig: LORAZEPAM 0.5 MG TABLET Take 1 tablet by mouth every * COMPOUNDED PRESCRIPTION CBC and Diff and CMP to be dr* APIXABAN 5 MG TABLET Take 1 tablet by mouth twice * VENLAFAXINE ER 75 MG CAPSULE,* Take 1 capsule by mouth twice* TRAMADOL 50 MG TABLET Take 1 tablet by mouth every * DILTIAZEM 120 MG TABLET Take 4 tablets by mouth once * GABAPENTIN 400 MG CAPSULE Take 1 capsule by mouth four * INSULIN LISPRO (U-100) 100 UN* Inject 6 Units subcutaneously* INSULIN GLARGINE (U-100) 100 * Inject 15 Units subcutaneousl* FLUTICASONE 50 MCG/ACTUATION * Use 2 Sprays in each nostril * THERAPEUTIC MULTIVITAMIN TABL* Take 1 tablet by mouth once d* DILTIAZEM SR 120 MG 24 HR CAP Take 1 capsule by mouth once * PEN NEEDLE, DIABETIC 29 GAUGE* Use one needle per dose. 5 p* EXENATIDE 5 MCG/DOSE (250 MCG* INJECT 5 mcg SUBCUTANEOUSLY T* IPRATROPIUM-ALBUTEROL 0.5 MG-* Inhale 3 mL as instructed kris* BUDESONIDE-FORMOTEROL HFA 160* Inhale 2 Puffs as instructed * COMPOUNDED PRESCRIPTION Oxygen for home @ 2L per BIPA* NADOLOL 40 MG TABLET TAKE THREE TABLETS BY MOUTH D* POLYETHYLENE GLYCOL 3350 17 G* Take 1 Packet by mouth as nee* CPAP ACETAMINOPHEN ER 650 MG TABLE* Take 650 mg by mouth every 8 * Problem List As Of Date 07/25/2018 Noted Resolved Diabetes (HCC) [E11.9] INVALID FOR* More... Atrial fibrillation (HCC) [I48.91] INVALID FOR* More... Lymphedema [I89.0] INVALID FOR* More... Heart failure, systolic and diastolic, acute on*INVALID FOR*12/31/2014 More... Obesity, morbid, BMI 50 or higher ([facility]) [E66.01]INVALID FOR* More... Hypertension [I10] INVALID FOR* More... HUNTER (obstructive sleep apnea) [G47.33] INVALID FOR* More... Pulmonary HTN (HCC) [I27.20] INVALID FOR* More... Atrial fibrillation with RVR ([facility]) [I48.91] INVALID FOR*09/23/2016 More... Heart failure, diastolic, acute (HCC) [I50.31] INVALID FOR* More... Counseling and coordination of care [Z71.89] INVALID FOR*04/12/2015 More... Monoclonal gammopathy [D47.2] INVALID FOR* Empty sella turcica (HCC) [E23.6] INVALID FOR* More... Uncontrolled type 2 diabetes mellitus without c*INVALID FOR*09/23/2016 Encounter Status:Closed by MELVINA ALMARAZ on 07/26/18 BEDSIDE GLUCOSE Collected: 07/24/2018 Status: F Source: [place] 9:40 PM [facility] REPOSITORY TYPE CODE TESTS RESULT OUT OF REFERENCE UNITS RANGE LAB L501.080 70-110 mg/dL High BEDSIDE GLU 247 Result Comment: MANAGEMENT OF PATIENT CARE PER NURSING PROTOCOL Performed By: #### L501.080 #### [facility] Point of Care [address] [place] [address] BEDSIDE GLUCOSE Collected: 07/24/2018 Status: F Source: [place] 4:15 PM [facility] REPOSITORY TYPE CODE TESTS RESULT OUT OF REFERENCE UNITS RANGE LAB L501.080 70-110 mg/dL High BEDSIDE GLU 236 Result Comment: MANAGEMENT OF PATIENT CARE PER NURSING PROTOCOL Performed By: #### L501.080 #### [facility] Point of Care [address] [place] [address] BEDSIDE GLUCOSE Collected: 07/24/2018 Status: F Source: [place] 11:09 AM [facility] REPOSITORY TYPE CODE TESTS RESULT OUT OF REFERENCE UNITS RANGE LAB L501.080 70-110 mg/dL High BEDSIDE GLU 221 Result Comment: MANAGEMENT OF PATIENT CARE PER NURSING PROTOCOL Performed By: #### L501.080 #### [facility] Point of Care [address] [place] [address] BEDSIDE GLUCOSE Collected: 07/24/2018 Status: F Source: [place] 6:47 AM [facility] REPOSITORY TYPE CODE TESTS RESULT OUT OF REFERENCE UNITS RANGE LAB L501.080 70-110 mg/dL High BEDSIDE GLU 248 Result Comment: MANAGEMENT OF PATIENT CARE PER NURSING PROTOCOL Performed By: #### L501.080 #### [facility] Point of Care [address] [place] [address] BEDSIDE GLUCOSE Collected: 07/23/2018 Status: F Source: [place] 9:44 PM [facility] REPOSITORY TYPE CODE TESTS RESULT OUT OF REFERENCE UNITS RANGE LAB L501.080 70-110 mg/dL High BEDSIDE GLU 264 Result Comment: MANAGEMENT OF PATIENT CARE PER NURSING PROTOCOL Performed By: #### L501.080 #### [facility] Point of Care [address] [place] [address] BEDSIDE GLUCOSE Collected: 07/23/2018 Status: F Source: [place] 5:13 PM [facility] REPOSITORY TYPE CODE TESTS RESULT OUT OF REFERENCE UNITS RANGE LAB L501.080 70-110 mg/dL High BEDSIDE GLU 257 Result Comment: MANAGEMENT OF PATIENT CARE PER NURSING PROTOCOL Performed By: #### L501.080 #### [facility] Point of Care [address] [place] [address] EMERGENCY DEPARTMENT Observed: 07/23/2018 Status: F Source: [place] SUMMARY 4:45 PM [facility] REPOSITORY [facility] Medical Records Department [address] [place] [address] Emergency Department Summary 07/22/18 2225 MR#: [id number] Acct: [id number] Name: VICKI HERNANDEZ Rep #: [id number] : 1960 57 From: Maisha Dumont DO PCP: Rajesh Holman Status: ADM IN - ER Visit Summary Date of Service: 07/22/18 Chief Complaint: [Shortness of breath] History of Present Illness: The patient is a 57 F [presents with shortness of breath that started 4 days ago. Patient complains of a cough that is mostly nonproductive. Patient denies any fevers. She does have a history of COPD however she does not wear home O2. Patient also with history of CHF, diabetes, hypertension, sleep apnea, pulmonary hypertension, chronic A. fib, and morbid obesity. Patient denies any chest pain. She denies any recent travel or surgery. Patient has been compliant with her medications and is currently on Eliquis for history of A. fib.] States that she actually feels improved since EMS placed oxygen on her. Physical Examination: [HEENT-PERRLA, EOMI. Cranial nerves II through XII grossly intact. TMs clear. Mucous membranes dry. No adenopathy. Cardiovascular-irregularly irregular and tachycardic. No murmurs auscultated. Lungs-breath sounds bilaterally with some faint expiratory wheezes noted. Patient is tachypneic. No accessory muscle use or retractions noted. Abdomen-normoactive bowel sounds, soft, nontender, no rebound or rigidity, no peritoneal signs. Patient is morbidly obese. Extremities-intact 4, normal range of motion, normal pulses, atraumatic. Patient does have lymphedema of lower extremities. No evidence of cellulitis noted.] Test Results: [EKG obtained on arrival showed atrial fibrillation with a rapid ventricular response of 146 bpm with some nonspecific ST changes noted and occasional PVCs. CBC with differential showed a white count 6.1, hemoglobin 10.9, hematocrit 35, platelets 226.] Chest x-ray was read as cardiomegaly and mild edema. Emergency Department Course and Treatment: [On arrival patient was placed on 4 L nasal cannula O2. Patient received Cardizem 20 mg IV bolus and then dropped her heart rate anywhere from 102 to 130. Patient received a DuoNeb aerosol and started on Solu-Medrol 125 mill grams IV.] Patient had a Dos Santos catheter placed. Treatment Plan: [Patient will be admitted] Disposition: [Admit] Impression: [Dyspnea CHF COPD exacerbation A. fib RVR-uncontrolled] This note was generated with [employer] dictation software. It may contain incorrect words, spelling, and punctuation that were not noted in review of the chart prior to signing ED Disposition - Plan for ED Patient: Chief Complaint: Shortness of Breath Referrals: Rajesh Holman [Primary Care Provider] - What to do if you have Problems For any increased pain, shortness of breath, bleeding, nausea or vomiting, chest pain, or any unexpected problems, contact your Primary Care Provider. Call [facility] ([phone]) or report to the closest Emergency Room. Call 911 if necessary. 07/23/18 1645 <Electronically signed by Maisha Dumont DO> Date Maisha Dumont DO Cosigner Signature (If Indicated): Date CC: Rajesh Holman; Axel Costello MD BEDSIDE GLUCOSE Collected: 07/23/2018 Status: F Source: [place] 12:07 PM [facility] REPOSITORY TYPE CODE TESTS RESULT OUT OF REFERENCE UNITS RANGE LAB L501.080 70-110 mg/dL High BEDSIDE GLU 228 Result Comment: MANAGEMENT OF PATIENT CARE PER NURSING PROTOCOL Performed By: #### L501.080 #### [facility] Point of Care [address] [place] [address] ECHOCARDIOGRAM COMPLETE Observed: 07/23/2018 Status: F Source: [place] 11:27 AM [facility] REPOSITORY [facility] Cardiovascular Services [address] [place] [address] Echo Complete 07/23/18 0822 MR#: [id number] Acct: [id number] Name: VICKI HERNANDEZ Rep #: [id number] : 1960 57 From: Axel Birch MD Attending Dr: Ricardo Ambriz MD Status: ADM IN Ordering Dr: Billy Bowling MD Date: 07/23/18 Location: [facility] Sex: F C Admitted: 07/22/18 Reason For Study: Dyspnea/SOB Procedure This was a 2D Doppler, Color Flow transthoracic echocardiogram. The study was technically difficult. Exam performed portable in patient room. Left Ventricle Normal LV size. D shaped septum in systole and diastole. Mild global left ventricular systolic dysfunction. The estimated ejection fraction is 45 %. Unable to assess diastolic dysfunction. Right Ventricle Mildly dilated right ventricle. Mild global right ventricular systolic dysfunction. Atria The left atrium is moderately enlarged. The right atrium is moderately enlarged. No doppler evidence for ASD. Mitral Valve There is mild mitral annular calcification. Mild papillary muscle dysfunction of the mitral valve. Mild-Moderate (1-2+) eccentric mitral valve insufficiency. Tricuspid Valve Normal tricuspid valve. Mild (1+) tricuspid valve insufficiency. Right ventricular systolic pressure estimated to be 44 mmHg. Aortic Valve Trisinus/trileaflet aortic valve. Mild diffuse aortic valve thickening. Mild focal aortic valve calcification. Aortic sclerosis, no stenosis. Pulmonic Valve The pulmonic valve is not well visualized. Mild (1+) pulmonic valve insufficiency. Great Vessels Normal sized aortic root. Pericardium/Pleural No pericardial effusion. MMode/2D Measurements AND Calculations LVIDd: 4.9 cm IVSd: 0.92 cm Ao root diam: 3.7 cm LVIDs: 3.9 cm LVPWd: 1.1 cm FS: 20.2 % LAV(MOD-bp): 165.7 ml LA A4 area: 38.0 cm2 RA A4 area: 37.2 cm2 LAV(MOD-bp) Indexed: 58.5 ml/m2 LAV(MOD-sp2): 178.9 ml LAV(MOD-sp4): 145.9 ml Doppler Measurements AND Calculations MV E max boubacar: 123.0 cm/sec Ao V2 max: 134.8 cm/sec LV V1 max: 98.6 cm/sec Ao max P.3 mmHg LV V1 max P.9 mmHg PA V2 max: 93.1 cm/sec TR max boubacar: 267.0 cm/sec TR max P.6 mmHg Interpretation Summary The study was technically difficult. Mild global left ventricular systolic dysfunction. The estimated ejection fraction is 45 %. D shaped septum in systole and diastole. Mildly dilated right ventricle. Mild global right ventricular systolic dysfunction. The left atrium is moderately enlarged. The right atrium is moderately enlarged. There is mild mitral annular calcification. Mild papillary muscle dysfunction of the mitral valve. Mild-Moderate (1-2+) eccentric mitral valve insufficiency. Mild (1+) tricuspid valve insufficiency. Aortic sclerosis, no stenosis. Mild (1+) pulmonic valve insufficiency. Right ventricular systolic pressure estimated to be 44 mmHg. Unable to assess diastolic dysfunction. Ordering Physician: Billy Bowling Referring Physician: Axel Costello Performed By: Surya Marin RCS 07/23/181125 Date Axel Birch MD CC: Rajesh Holman; Billy Bowling MD; Ricardo Ambriz MD; Axel Costello MD Date Dictated: 07/23/18821 Date Transcribed: 07/23/181125 Dog Licenser: Signed HISTORY AND PHYSICAL Observed: 07/23/2018 Status: F Source: [place] EXAM 8:27 AM [facility] REPOSITORY [facility] Medical Records Department [address] [place] [address] History and Physical 07/22/18 2301 MR#: [id number] Acct: [id number] Name: VICKI HERNANDEZ Rep #: [id number] : 1960 57 From: Billy Bowling MD PCP: Rajesh Holman Status: ADM IN Location: [place] [id number] ADDENDUM by Billy Bowling MD on 07/23/18 at 0827 Code Visit Doppler of bilateral lower extremities ordered for persistent leg pain but of note patient is on eliquis for Afib. 07/23/18 0827 <Electronically signed by Billy Bowling MD> Date Billy Bowling MD cc: Rajesh Holman; Billy Bowling MD; Axel Costello MD * Signed Problem List (1) Acute hypoxemic respiratory failure Status: Acute (2) COPD exacerbation Status: Chronic (3) Acute kidney injury Status: Acute (4) Hyperkalemia Status: Acute (5) Digoxin toxicity Status: Acute Qualifiers: Encounter type: initial encounter Injury intent: accidental or unintentional Qualified Code(s): T46.0X1A - Poisoning by cardiac-stimulant glycosides and drugs of similar action, accidental (unintentional), initial encounter (6) Sleep apnea Status: Chronic (7) Acute on chronic diastolic (congestive) heart failure Status: Acute (8) Chronic atrial fibrillation Status: Chronic (9) Type 2 diabetes mellitus Status: Chronic (10) Hypertension Status: Chronic History of Present Illness Date of Admission: 07/22/18 Chief Complaint: increasing swelling in legs and abdomen; and shortness of breath The patient is a 57 year old super morbidly obese F with a significant history of hypertension; obstructive sleep apnea; former tobacco use COPD; diabetes; chronic atrial fibrillation on Eliquis; congestive heart failure who presented with increased swelling of her bilateral legs and abdomen that has been progressively worsening for the last 5-6 days. Patient reported that she used to walk with a walker but because of the increased swelling in her extremities her walking has been more impaired. Associated with symptoms is shortness of breath. She reported she has shortness of breath when she move her limbs in the bed. The paramedics found that her oxygen saturation was 90% on room air. Although patient has COPD she is not on home oxygen. At the emergency department patient was found to be in A. fib with RVR and she received Cardizem 20 mg IV bolus and later another Cardizem 25 mg IV bolus. Past Medical History Past Medical History (Chronic Problems): Chronic Problems (Last Reviewed 07/23/18 @ 03:27 by Billy Bowling MD) Ulcer of right lower extremity with fat layer exposed (Chronic) Ulcer of left lower extremity with fat layer exposed (Chronic) Venous insufficiency of both lower extremities (Chronic) Hx MRSA infection (Chronic) COPD exacerbation (Chronic) Chronic acquired lymphedema (Chronic) Nonhealing ulcer of multiple sites of left lower extremity with fat layer exposed (Chronic) Iron deficiency anemia, unspecified (Chronic) Sleep apnea (Chronic) Poor compliance with CPAP treatment (Chronic) Biatrial enlargement (Chronic) Non-healing wound (Chronic) Chronic anticoagulation (Chronic) Diastolic CHF, chronic (Chronic) Pulmonary hypertension (Chronic) Morbid obesity (Chronic) Chronic atrial fibrillation (Chronic) Type 2 diabetes mellitus (Chronic) Hypertension (Chronic) Medical History: Medical History (Last Reviewed 07/23/18 @ 03:27 by Billy Bowling MD) Pulmonary hypertension (Chronic) I27.2 Morbid obesity (Chronic) E66.01 Chronic atrial fibrillation (Chronic) I48.2 Type 2 diabetes mellitus (Chronic) E11.9 Hypertension (Chronic) I10 Severe sepsis A41.9, R65.20 COPD (chronic obstructive pulmonary disease) J44.9 Hypersomnia G47.10 Nocturnal hypoxia G47.34 HUNTER (obstructive sleep apnea) G47.33 Post-nasal drip R09.82 Acute on chronic congestive heart failure (Resolved) I50.9 Cellulitis of leg, right (Resolved) L03.115 ulnar nerve surgery Allergies latex Allergy (Verified 07/22/18 21:42) Itching pentazocine lactate [From Talwin] Allergy (Verified 07/22/18 21:42) Itching phenobarbital Allergy (Verified 07/22/18 21:42) Itching tree nut Allergy (Verified 07/22/18 21:42) Anaphylaxis codeine Adverse Reaction (Verified 07/22/18 21:42) Upset Stomach Home Medications: Ambulatory Orders Medication Instructions Recorded albuterol sulfate HFA 90 2 puff INHALATION Q4H PRN g 08/26/17 Surgical History: Surgical History (Last Reviewed 07/23/18 @ 03:27 by Billy Bowling MD) H/O section Z98.891 1979 1989 H/O total hysterectomy Z98.890, Z90.710 1998 History of carpal tunnel release Z98.890 History of tonsillectomy Z98.890, Z90.89 1971 hip debridement 2011 Surgical History: cholecystectomy, hysterectomy - with BSO, tonsillectomy, - - 2 section. Lives: With Family Smoking Status: Former smoker Alcohol: None - *Family History Maternal Family History: Family History (Last Reviewed 07/23/18 @ 03:28 by Billy Bowling MD) Mother Colon cancer Diabetes Hypertension CHF (congestive heart failure) Father COPD (chronic obstructive pulmonary disease) Heart disease Diabetes Brother Heart disease Stomach cancer Sister Ovarian cancer History Items: No pertinent history Paternal Family History: Family History (Last Reviewed 07/23/18 @ 03:28 by Billy Bowling MD) Mother Colon cancer Diabetes Hypertension CHF (congestive heart failure) Father COPD (chronic obstructive pulmonary disease) Heart disease Diabetes Brother Heart disease Stomach cancer Sister Ovarian cancer Review of Systems Constitutional: Reports: Weight Change - subjective weight increase. Denies: Chills, Fever HEENT: Denies: Head Aches, Sinus Congestion, Sinus Drainage Cardiovascular: Denies: Chest Pain, Palpitations Respiratory: Reports: Shortness of breath upon exertion, Wheezing. Denies: Cough, Shortness of breath at rest, Sputum production Gastrointestinal: Denies: Abdominal Pain, Nausea, Vomiting Genitourinary: Denies: Dysuria Musculoskeletal: Denies: Joint Pain, Joint Tenderness Skin: Reports: Wounds - bilateral legs. Denies: Rash Neurological: Denies: Numbness, Tingling, Focal weakness Psychiatric: Denies: Anxiety, Depression, Homicidal Ideations, Suicidal Ideations Hematologic/ Lymphatic: Denies: Easy Bruising, Easy Bleeding VTE Information - Inpt Only VTE Present on Admission: No VTE Mechan Device Prophylaxis: None VTE Pharm Prophylaxis ordered?: No Reason prophylaxis not ordered:: Treatment Not Indicated - On Eliquis for A. fib; continued. Patient Problems: Active and Suspected Problems (Last Reviewed 07/23/18 @ 03:27 by Billy Bowling MD) Acute hypoxemic respiratory failure (Acute) - Physical Exam General: Alert, Oriented x3, Cooperative, - - Super morbidly obese patient HEENT: Atraumatic, PERRLA, EOMI, Normocephalic Neck: Supple, No JVD, Negative Carotid Bruits Lungs: Normal air movement, Rales - bibasilar Cardiovascular: No murmurs, Irregular Rate Abdomen: Bowel Sounds Present, Soft, Non Tender Extremities: Capillary Refill Less than 3 Seconds, Edema Skin: Ulcer/ Wound - bilateral leg wounds Musculoskeletal: No Muscle Wasting Neurological: Neuro grossly intact Psych/Mental Status: Normal Affect, Appropriate Vital Signs Temp Pulse Resp BP Pulse Ox 98.1 F 108 H 20 H 122/104 H 95 07/22/18 21:37 07/22/18 22:06 07/22/18 22:06 07/22/18 22:04 07/22/18 22:04 Oxygen Flow Rate (L/min) 5 Oxygen Delivery Method Nasal Cannula Weight: 210.1 kg Body Mass Index (BMI) 74.7 Laboratory Tests Past 24 Hrs WBC 6.1 WBC RBC Hgb Hct MCV MCH MCHC RDW RDW Differential Plt Count MPV Immature Gran % (Auto) Neut % (Auto) Lymph % (Auto) Assessment/Plan All Active Problems (Last Reviewed 12/01/18 @ 03:27 by Billy Bowling MD) Acute hypoxemic respiratory failure (Acute) Acute kidney injury (Acute) Hyperkalemia (Acute) Digoxin toxicity (Acute) Vancomycin toxicity (Resolved) Bradycardia (Resolved) Acute on chronic diastolic (congestive) heart failure (Acute) Metabolic encephalopathy (Acute) Abscess of left lower extremity (Resolved) Abscess of right lower extremity (Resolved) Acute on chronic congestive heart failure (Resolved) Cellulitis of leg, right (Resolved) Diabetes with ulcer of lower extremity (Resolved) Methicillin resistant Staphylococcus aureus infection (Resolved) The patient is a 57 year old super morbidly obese F with a significant history of hypertension; obstructive sleep apnea; COPD; diabetes; chronic atrial fibrillation on Eliquis; congestive heart failure who presented with increased swelling of her bilateral legs and abdomen; shortness of breath with mild exertion and found to have radiographic evidence of pulmonary edema; and A. fib with RVR. Acute hypoxemic respiratory failure. Reportedly her oxygen saturation was 90% on room air before her admission. At emergency department on 5 L her oxygen saturation was about 93%. Emergency department doctor reported that patient was wheezing on examination. Also patient reported a brief episode of wheezing before admission. There was radiographic evidence of moderate enlargement of the cardiac silhouette with mild edema. I agree with radiographic readings. Her acute hypoxemic respiratory failure could be due to exacerbation of heart failure superimposed on COPD exacerbation. Acute exacerbation of COPD Patient received Solu-Medrol 125 mg at emergency department. Prednisone 40 mg every day ordered. Patient received DuoNeb in the emergency department. DuoNeb scheduled and albuterol as needed ordered. Acute exacerbation of heart failure with preserved ejection fraction; and right ventricular systolic heart failure. Review of old records shows that echocardiogram on 12/30/2016 showed an ejection fraction of 65%; moderately dilated right ventricle; moderately global right ventricular systolic dysfunction; severely enlarged left atrium; severely enlarged right atrium. Mild tricuspid valve insufficiency; right ventricular systolic blood pressure was estimated to be 53 Patient received Lasix 60 mg IV push at emergency department. Laxis 40 mg IV twice daily ordered. Potassium supplementation while on Lasix. Daily weights Fluid restriction of 1500 mL's per day Patient reported that she does not have a clinic lead at this time. Consider discussing case with clinic lead or upon discharge helping patient to get appointment with cardiology for long-term management of heart failure.. A. fib with RVR At emergency department patient received a total of 45 mg of Cardizem IV push Patient started on Cardizem drip to maintain heart rate of less than 90 and to hold for systolic blood pressure less than 100. We will continue home Cardizem XL. Placed on telemetry. TSH and magnesium ordered. Eliquis continued. Diabetes mellitus Patient reported at home she uses short acting insulin 6 units before each meal and Lantus 15 units at night. She reported that for some time now she have not been taking her insulin. On admission her blood glucose was slightly above goal. We will start patient on Humalog 4 units with each meal; and Lantus 12 units at night. Correction scale insulin added. On starting patient on steroids anticipate that she may need increase insulin requirements. Adjust insulin regimen as necessary. Obstructive sleep apnea BiPAP ordered. Lymphedema of bilateral leg wounds Patient reported at home he uses Santyl to cover her wounds. Santyl to bilateral legs; 4x4; and Kerlix roll. Wound care consult. Toradol 50 mg IV push x1 given for pain DVT prophylaxis Not indicated Patient on Eliquis for A. fib. Code Visit Inpatient E AND M: 73162 Init Hosp L3 07/23/18 0343 <Electronically signed by Billy Bowling MD> Date Billy Bowling MD Cosigner Signature: Date (if applicable) CC: Rajesh Holman; Billy Bowling MD; Axel Costello MD Signed BEDSIDE GLUCOSE Collected: 07/23/2018 Status: F Source: [place] 6:51 AM [facility] REPOSITORY TYPE CODE TESTS RESULT OUT OF REFERENCE UNITS RANGE LAB L501.080 70-110 mg/dL High BEDSIDE GLU 205 Result Comment: MANAGEMENT OF PATIENT CARE PER NURSING PROTOCOL Performed By: #### L501.080 #### [facility] Point of Care [address] [place] [address] CBC W/DIFF, AUTOMATED Collected: 07/23/2018 Status: F Source: [place] 5:51 AM [facility] REPOSITORY TYPE CODE TESTS RESULT OUT OF RANGE REFERENCE UNITS LAB L100.1000 4.4-11.0 K/mm3 Normal WBC 6.1 LAB L100.1200 4.2-5.4 M/mm3 Low RBC 3.79 LAB L100.1300 12.0-15.0 g/dl Low HGB 10.7 LAB L100.1400 37-47 % Low HCT 36.0 LAB L100.1500 81-99 fL Normal MCV 95.0 LAB L100.1600 27.0-32.0 pg Normal MCH 28.2 LAB L100.1700 32-36 g/gl Low MCHC 29.7 LAB L100.1810 11.6-14.6 % High RDW CV 18.4 LAB L100.1820 35.1-43.9 fl High RDW SD 63.5 LAB L100.1900 150-450 K/mm3 Normal PLT 218 LAB L100.2000 6.2-12.0 fl Normal MPV 9.2 LAB L100.2100 47-70 % High NEUT% 91.0 LAB L100.2200 19-41 % Low LY% 8.3 LAB L100.2300 0-10 % Normal MONO% 0.5 LAB L100.2400 0-5 % Normal EO% 0.0 LAB L100.2500 0-1 % Normal BASO% 0.2 LAB L100.2550 0.0-0.9 % Normal IM GRAN % 0.000 Result Comment: IG% - Immature Granulocytes (promyelocytes, myelocytes and metamyelocytes) > 1% indicates that a LEFT SHIFT is Present. LAB L100.2620 2.0-7.7 X10 3/uL Normal Absolute Neut 5.6 LAB L100.2720 0.83-4.51 X10 3/ul Low Absolute Lymph 0.51 LAB L100.4500 SMEAR Normal COMMENT Result Comment: LYMPHOPENIA NOTED Performed By: #### L100.0100 #### [facility] [address] [place], [address] BASIC METABOLIC Collected: 07/23/2018 Status: F Source: [place] PROFILE (BMP) 5:51 AM [facility] REPOSITORY TYPE CODE TESTS RESULT OUT OF RANGE REFERENCE UNITS LAB L501.0100 74-106 mg/dL High GLU 204 Result Comment: Glucose result greater than or equal to 200 mg/dL suggests DIABETES MELLITUS per A.D.A. criteria. Please note revised GLUCOSE reference range effective 2017. LAB L501.1000 7-18 mg/dL High BUN 31 LAB L501.1100 0.55-1.02 mg/dL Normal CREAT,SERUM 1.00 Result Comment: The validity of the calculated GFR AND GFRAA in patients over 70 years has not been determined. Clinical correlation is essential. LAB L501.1110 >60 mL/min Normal EST GFR 61 Result Comment: Non- GFR Calc LAB L501.1115 >60 mL/min Normal EST GFR - AA 73 Result Comment: GFR Calc LAB L501.1255 ml/min Normal Estimated CRCL 56.71 LAB L501.1300 10-20 RATIO High BUN/CRE 31.2 LAB L501.2200 8.5-10 mg/dL Normal .1 CA 8.6 LAB L501.5300 136-14 mmol/L Normal 5 NA 142 LAB L501.5600 3.5-5. mmol/L Normal 1 K 4.8 LAB L501.5900 98-107 mmol/L High CL 109 LAB L501.6100 21.0-3 mmol/L Normal 2.0 CO2 25.0 LAB L501.6200 5-15 Normal GAP 8 Performed By: #### L500.2500 #### [facility] [address] [facility] [place], [place], [address] BEDSIDE GLUCOSE Collected: 07/23/2018 Status: F Source: [place] 1:03 AM [facility] REPOSITORY TYPE CODE TESTS RESULT OUT OF REFERENCE UNITS RANGE LAB L501.080 70-110 mg/dL High BEDSIDE GLU 168 Result Comment: MANAGEMENT OF PATIENT CARE PER NURSING PROTOCOL Performed By: #### L501.080 #### [facility] Point of Care [address] [facility] [place] [address] LACTIC ACID Collected: 07/22/2018 Status: F Source: [place] 10:15 PM [facility] REPOSITORY Order Comment: Yes/No query for Sepsis Lactate Rule Y TYPE CODE TESTS RESULT OUT OF RANGE REFERENCE UNITS LAB L503.6005 0.4-2.0 mmol/L Normal LACTIC ACID 1.2 Performed By: #### L503.6005 #### [facility] [address] [place], [place], [address] Observed: 07/22/2018 Status: F Source: [place] CULTURE, BLOOD (WB) 10:15 PM [facility] REPOSITORY BC No growth in 5 days. Performed By: #### M200.1000 #### [facility] [address] [place], [place], [address] Observed: 07/22/2018 Status: F Source: [place] CULTURE, BLOOD (WB) 10:10 PM [facility] REPOSITORY BC No growth in 5 days. Performed By: #### M200.1000 #### [facility] [address] [place], [place], [id number] CHEST 1 VIEW Observed: 07/22/2018 Status: F Source: [place] (PORTABLE) 9:55 PM [facility] REPOSITORY [facility] Imaging Services [address] [place] [address] Chest 1 View (Portable) MR#: [id number] Acct: [id number] Name: VICKI HERNANDEZ Rep #: [id number] : 1960 F 57 From: Joelle Mehta MD PCP: Rajesh Holman Status: REG ER Study: Chest 1 View (Portable) Date of Exam: 07/22/18 Exam# [id number] Ordering Dr: Maisha Dumont DO STUDY: X-RAY CHEST REASON FOR EXAM: Female, 57 years old. Shortness of breath TECHNIQUE: A single frontal view of the chest was obtained. COMPARISON: December 24, 2017 FINDINGS: The lungs are underaerated. There are increased interstitial markings throughout the lungs. There are no focal airspace opacities. There is no demonstrated pleural abnormality. There is moderate enlargement of the cardiac silhouette. The mediastinum and hilar regions are unremarkable. The central vessels are increased. Normal visualized aortic arch and descending thoracic aorta. The thoracic spine is unremarkable. The visualized ribs, clavicles, and shoulders are unremarkable. There is no demonstrated abnormality of the visualized upper abdomen. RAD/Chest 1 View (Portable) IMPRESSION: There is moderate enlargement of the cardiac silhouette with mild edema. There is no obvious effusion. Electronically Signed: Joelle Mehta MD at 22:40 EST Tel Direct: [phone], Service support , CC: Rajesh Holman; Maisha Dumont DO Dog Licenser: Signed CBC W/DIFF, AUTOMATED Collected: 07/22/2018 Status: F Source: [place] 9:49 PM [facility] REPOSITORY TYPE CODE TESTS RESULT OUT OF RANGE REFERENCE UNITS LAB L100.1000 4.4-11.0 K/mm3 Normal WBC 6.1 LAB L100.1200 4.2-5.4 M/mm3 Low RBC 3.70 LAB L100.1300 12.0-15.0 g/dl Low HGB 10.9 LAB L100.1400 37-47 % Low HCT 35.1 LAB L100.1500 81-99 fL Normal MCV 94.9 LAB L100.1600 27.0-32.0 pg Normal MCH 29.5 LAB L100.1700 32-36 g/gl Low MCHC 31.1 LAB L100.1810 11.6-14.6 % High RDW CV 18.4 LAB L100.1820 35.1-43.9 fl High RDW SD 64.0 LAB L100.1900 150-450 K/mm3 Normal PLT 226 LAB L100.2000 6.2-12.0 fl Normal MPV 9.2 LAB L100.2100 47-70 % High NEUT% 75.5 LAB L100.2200 19-41 % Low LY% 15.0 LAB L100.2300 0-10 % Normal MONO% 7.2 LAB L100.2400 0-5 % Normal EO% 1.8 LAB L100.2500 0-1 % Normal BASO% 0.5 LAB L100.2550 0.0-0.9 % Normal IM GRAN % 0.000 Result Comment: IG% - Immature Granulocytes (promyelocytes, myelocytes and metamyelocytes) > 1% indicates that a LEFT SHIFT is Present. LAB L100.2620 2.0-7.7 X10 3/uL Normal Absolute Neut 4.6 LAB L100.2720 0.83-4.51 X10 3/ul Normal Absolute Lymph 0.91 Performed By: #### L100.0100 #### [facility] [address] [facility] [place], [address] BASIC METABOLIC Collected: 07/22/2018 Status: F Source: [place] PROFILE (BMP) 9:49 PM [facility] REPOSITORY TYPE CODE TESTS RESULT OUT OF RANGE REFERENCE UNITS LAB L501.0100 74-106 mg/dL High GLU 185 Result Comment: Fasting Glucose result greater than or equal to 126 mg/dL suggests DIABETES MELLITUS per A.D.A. criteria. Please note revised GLUCOSE reference range effective 2017. LAB L501.1000 7-18 mg/dL High BUN 32 LAB L501.1100 0.55-1.02 mg/dL High CREAT,SERUM 1.13 Result Comment: The validity of the calculated GFR AND GFRAA in patients over 70 years has not been determined. Clinical correlation is essential. LAB L501.1110 >60 mL/min Low EST GFR 52 Result Comment: Non- GFR Calc LAB L501.1115 >60 mL/min Normal EST GFR - AA 63 Result Comment: GFR Calc LAB L501.1255 ml/min Normal Estimated CRCL 50.18 LAB L501.1300 10-20 RATIO High BUN/CRE 28.3 LAB L501.2200 8.5-10 mg/dL Normal .1 CA 8.5 LAB L501.5300 136-14 mmol/L Normal 5 NA 144 LAB L501.5600 3.5-5. mmol/L Normal 1 K 4.4 LAB L501.5900 98-107 mmol/L High CL 110 LAB L501.6100 21.0-3 mmol/L Normal 2.0 CO2 25.0 LAB L501.6200 5-15 Normal GAP 9 Performed By: #### L500.2500, L501.4010 #### [facility] [address] [place], [address] TROPONIN-I Collected: 07/22/2018 Status: F Source: [place] 9:49 PM [facility] REPOSITORY TYPE CODE TESTS RESULT OUT OF RANGE REFERENCE UNITS LAB L501.4010 <0.045 ng/mL Normal < 0.015 TROPONIN-I Result Comment: TROPONIN-I EXPECTED VALUES <0.045 Negative 0.045 - 0.590 Consistent with Cardiac Damage > OR = 0.600 Critical Value Not every elevated troponin is indicative of CT. These values should be used with clinical judgement in examining the patient's clinical picture for diagnosis. To establish a diagnosis of CT versus myocardial injury, there must be a demonstrated rise and/or fall in the troponin values, in addition to ischemic symptoms, EKG changes, new regional wall motion abnormality, and/or angiographical evidence. PLEASE NOTE: REFERENCE RANGES EDITED 18 Performed By: #### L500.2500, L501.4010 #### [facility] [place], [address] BNP,B-TYPE NATRIURETIC Collected: 07/22/2018 Status: F Source: [place] 9:49 PM [facility] REPOSITORY TYPE CODE TESTS RESULT OUT OF RANGE REFERENCE UNITS LAB L503.6620 0-100 pg/mL High B-TYPE 166.0 RODERICK PEP Performed By: #### L503.6620 #### [facility] [address] [place], [address] MAGNESIUM Collected: 07/22/2018 Status: F Source: [place] 9:49 PM [facility] REPOSITORY TYPE CODE TESTS RESULT OUT OF RANGE REFERENCE UNITS LAB L501.5200 1.6-2.6 mg/dL Normal MG 2.1 Performed By: #### L501.5200, L501.9520 #### [facility] [address] [place], [address] THYROID STIM HORMONE Collected: 07/22/2018 Status: F Source: [place] (TSH) 9:49 PM [facility] REPOSITORY TYPE CODE TESTS RESULT OUT OF RANGE REFERENCE UNITS LAB L501.9520 0.358-3.74 uIU/mL Normal TSH 1.02 Performed By: #### L501.5200, L501.9520 #### [facility] [address] [place], [address] CBC W/DIFF, AUTOMATED Collected: 07/21/2018 Status: F Source: [place] 9:06 AM [facility] REPOSITORY TYPE CODE TESTS RESULT OUT OF RANGE REFERENCE UNITS LAB L100.1000 4.4-11.0 K/mm3 Normal WBC 6.5 LAB L100.1200 4.2-5.4 M/mm3 Low RBC 3.69 LAB L100.1300 12.0-15.0 g/dl Low HGB 11.0 LAB L100.1400 37-47 % Low HCT 36.0 LAB L100.1500 81-99 fL Normal MCV 97.6 LAB L100.1600 27.0-32.0 pg Normal MCH 29.8 LAB L100.1700 32-36 g/gl Low MCHC 30.6 LAB L100.1810 11.6-14.6 % High RDW CV 18.5 LAB L100.1820 35.1-43.9 fl High RDW SD 63.1 LAB L100.1900 150-450 K/mm3 Normal PLT 247 LAB L100.2000 6.2-12.0 fl Normal MPV 9.8 LAB L100.2100 47-70 % High NEUT% 75.6 LAB L100.2200 19-41 % Low LY% 13.4 LAB L100.2300 0-10 % Normal MONO% 8.3 LAB L100.2400 0-5 % Normal EO% 2.2 LAB L100.2500 0-1 % Normal BASO% 0.3 LAB L100.2550 0.0-0.9 % Normal IM GRAN % 0.200 Result Comment: IG% - Immature Granulocytes (promyelocytes, myelocytes and metamyelocytes) > 1% indicates that a LEFT SHIFT is Present. LAB L100.2620 2.0-7.7 X10 3/uL Normal Absolute Neut 4.9 LAB L100.2720 0.83-4.51 X10 3/ul Normal Absolute Lymph 0.87 Performed By: #### L100.0100 #### [facility] [address] [place], [address] COMPREHENSIVE METABOLIC Collected: 07/21/2018 Status: F Source: [place] [facility] 9:06 AM [facility] REPOSITORY TYPE CODE TESTS RESULT OUT OF RANGE REFERENCE UNITS LAB L501.0100 74-106 mg/dL High GLU 150 Result Comment: Fasting Glucose result greater than or equal to 126 mg/dL suggests DIABETES MELLITUS per A.D.A. criteria. Please note revised GLUCOSE reference range effective 2017. LAB L501.1000 7-18 mg/dL High BUN 24 LAB L501.1100 0.55-1.02 mg/dL Normal CREAT,SERUM 1.01 Result Comment: The validity of the calculated GFR AND GFRAA in patients over 70 years has not been determined. Clinical correlation is essential. LAB L501.1110 >60 mL/min Normal EST GFR 60 Result Comment: Non- GFR Calc LAB L501.1115 >60 mL/min Normal EST GFR - AA 72 Result Comment: GFR Calc LAB L501.1300 10-20 RATIO High BUN/CRE 23.8 LAB L501.1500 6.4-8.2 g/dL High T PROT 8.5 LAB L501.1800 3.2-5.0 g/dL Normal ALB 3.2 LAB L501.1950 2.2-4.2 g/dL High GLOB 5.3 LAB L501.2000 0.9-2.4 RATIO Low A/G 0.6 LAB L501.2200 8.5-10.1 mg/dL CA Normal 8.5 LAB L501.4100 15-37 U/L Normal AST 15 LAB L501.4305 45-117 U/L Normal ALK P 103 LAB L501.4405 13-56 U/L Normal ALT 19 LAB L501.4600 0.20-1.00 mg/dL T Normal BILI 0.90 LAB L501.5300 136-145 mmol/L NA Normal 140 LAB L501.5600 3.5-5.1 mmol/L K Normal 4.4 LAB L501.5900 98-107 mmol/L CL Normal 106 LAB L501.6100 21.0-32.0 mmol/L Normal CO2 26.0 LAB L501.6200 5-15 Normal GAP 8 Performed By: #### L500.4050 #### [facility] [address] [place], [address] PROGRESS Observed: 07/20/2018 Status: COMPLETED Source: [place] 10:50 AM [facility] REPOSITORY HNO ID: [id number] Author: Melvina Emanuel) Sung Service: (none) Author Type: Registered Nurse Type: Progress Notes Filed: 07/20/2018 11:07 AM Note Text: PRIMARY CARE COORDINATION FOLLOW-UP NOTE Provider Action/FYI FYI Patient identified by name and date of . YES Spoke to Gricelda from [facility] Summary: TC from Hospice, asking for information on patient. Gave verbal medical update for past year and informed PCC faxed notes yesterday to [facility] on patient. Discussed symptom management, not appropriate for Hospice and patient wants PCP involved on decisions, verbalized agreement. They have appt to see pt on 07/22 [employer] plan for next outreach: Will follow up 2 weeks Signature Melvina Almaraz RN July 20, 2018 CNPTOUTREACH Observed: 07/20/2018 Status: COMPLETED Source: [place] 12:00 AM [facility] REPOSITORY Patient Outreach (FAMPWS) VICKI HERNANDEZ ([id number]) 1960 F Date Time Provider Department 07/20/18 MELVINA ALMARAZ) FAMPWS During your visit today, we recorded the following information about you: Melvina Almaraz RN 07/20/2018 11:07 AM Signed PRIMARY CARE COORDINATION FOLLOW-UP NOTE Provider Action/FYI FYI Patient identified by name and date of . YES Spoke to Gricelda from [facility] Summary: TC from Hospice, asking for information on patient. Gave verbal medical update for past year and informed PCC faxed notes yesterday to [facility] on patient. Discussed symptom management, not appropriate for Hospice and patient wants PCP involved on decisions, verbalized agreement. They have appt to see pt on 07/22 [employer] plan for next outreach: Will follow up 2 weeks Signature Melvina Almaraz RN July 20, 2018 Allergies As of Date: 07/20/2018 Noted Allergy Reaction CODEINE 11/19/2010 14 - Other: See Comments Comments: Itching, vomitting LATEX 11/19/2010 14 - Other: See Comments Comments: Itching,hives,dyspnea PHENOBARBITAL 11/19/2010 14 - Other: See Comments Comments: Nausea, itching TALWIN (PENTAZOCINE LACTATE) 11/19/2010 1 - Mental Status Change Comments: Hallucinations TREE NUT 02/07/2015 10 - Anaphylaxis Date Reviewed: 06/08/2017 Reviewed by: Karena Shaikh Cadd Drafter - Fully Assessed Reason for Visit: Bed Control Specialist Chronic Care [3510] Prescriptions as of 07/20/2018 Sig: LORAZEPAM 0.5 MG TABLET Take 1 tablet by mouth every * COMPOUNDED PRESCRIPTION CBC and Diff and CMP to be dr* APIXABAN 5 MG TABLET Take 1 tablet by mouth twice * VENLAFAXINE ER 75 MG CAPSULE,* Take 1 capsule by mouth twice* TRAMADOL 50 MG TABLET Take 1 tablet by mouth every * DILTIAZEM 120 MG TABLET Take 4 tablets by mouth once * GABAPENTIN 400 MG CAPSULE Take 1 capsule by mouth four * INSULIN LISPRO (U-100) 100 UN* Inject 6 Units subcutaneously* INSULIN GLARGINE (U-100) 100 * Inject 15 Units subcutaneousl* FLUTICASONE 50 MCG/ACTUATION * Use 2 Sprays in each nostril * THERAPEUTIC MULTIVITAMIN TABL* Take 1 tablet by mouth once d* DILTIAZEM SR 120 MG 24 HR CAP Take 1 capsule by mouth once * PEN NEEDLE, DIABETIC 29 GAUGE* Use one needle per dose. 5 p* EXENATIDE 5 MCG/DOSE (250 MCG* INJECT 5 mcg SUBCUTANEOUSLY T* IPRATROPIUM-ALBUTEROL 0.5 MG-* Inhale 3 mL as instructed kris* BUDESONIDE-FORMOTEROL HFA 160* Inhale 2 Puffs as instructed * COMPOUNDED PRESCRIPTION Oxygen for home @ 2L per BIPA* NADOLOL 40 MG TABLET TAKE THREE TABLETS BY MOUTH D* POLYETHYLENE GLYCOL 3350 17 G* Take 1 Packet by mouth as nee* CPAP ACETAMINOPHEN ER 650 MG TABLE* Take 650 mg by mouth every 8 * Problem List As Of Date 07/20/2018 Noted Resolved Diabetes (HCC) [E11.9] INVALID FOR* More... Atrial fibrillation (HCC) [I48.91] INVALID FOR* Priority: A More... Lymphedema [I89.0] INVALID FOR* Priority: B More... Heart failure, systolic and diastolic, acute on*INVALID FOR*12/31/2014 More... Obesity, morbid, BMI 50 or higher (HCC) [E66.01]INVALID FOR* More... Hypertension [I10] INVALID FOR* More... HUNTER (obstructive sleep apnea) [G47.33] INVALID FOR* More... Pulmonary HTN (HCC) [I27.20] INVALID FOR* More... Atrial fibrillation with RVR (HCC) [I48.91] INVALID FOR*09/23/2016 More... Heart failure, diastolic, acute (HCC) [I50.31] INVALID FOR* More... Counseling and coordination of care [Z71.89] INVALID FOR*04/12/2015 More... Monoclonal gammopathy [D47.2] INVALID FOR* Empty sella turcica (HCC) [E23.6] INVALID FOR* More... Uncontrolled type 2 diabetes mellitus without c*INVALID FOR*09/23/2016 Encounter Status:Closed by MELVINA ALMARAZ on 07/20/18 PROGRESS Observed: 07/19/2018 Status: COMPLETED Source: [place] 4:57 PM [facility] REPOSITORY [facility] ID: [id number] Author: Melvina (Rn) Sung Service: (none) Author Type: Registered Nurse Type: Progress Notes Filed: 07/19/2018 5:05 PM Note Text: PRIMARY CARE COORDINATION QUICK NOTE Provider Action/FYI [facility] referral called to [facility] in Admission and records faxed Lab orders faxed to [facility] HH Ativan script called to [facility] TC to pt, informed ativan prescription approved and referral to [facility] done Patient identified by name and date . The following prescriptions have been called to [facility] pharmacy 07/19/2018 at 4:57 PM by Melvina Almaraz RN. I spoke with Champ in the pharmacy. Signed Prescriptions Disp Refills LORazepam (ATIVAN) 0.5 mg tab 60 tablet 0 Sig: Take 1 tablet by mouth every 6 hours as needed (anxiety) for up to 30 days. EDMAR Class: C-IV PEE: No PROGRESS Observed: 07/19/2018 Status: COMPLETED Source: [place] 4:22 PM [facility] REPOSITORY HNO ID: [id number] Author: Rajesh Holman Service: (none) Author Type: Physician Type: Progress Notes Filed: 07/19/2018 5:05 PM Note Text: Agree. oarrs checked. Scripts are needed and appropriate PROGRESS Observed: 07/19/2018 Status: COMPLETED Source: [place] 3:07 PM [facility] REPOSITORY HNO ID: [id number] Author: Melvina (Rn) Sung Service: (none) Author Type: Registered Nurse Type: Progress Notes Filed: 07/19/2018 4:04 PM Note Text: PRIMARY CARE COORDINATION FOLLOW-UP NOTE Provider Action/FYI ORDERS PENDED PER VERBAL ORDER FROM PCP Patient identified by name and date of . YES Spoke to patient Summary: Discussed Palliative Care with patient. Patient agrees to Palliative Care as long as Dr. Holman can continue to be her PCP. States she wants to continue working on being able to ambulate to her van and get into and out of van to be able to come to PCP for appt. Patient asking if PCP would be willing to refill Ativan as long as she is going to be seen by Palliative Care. Patient asking if she could start torsemide 20 mg BID because she has gained so much weight and her lymphedema is worse. Informed PCC spoke to PCP and he would like home health nurse to draw labs this week before he starts medication. Discussed with PCP, PCC will discuss Palliative Care with patient. TC to patient, discussed [facility] doesn't go to [facility] and PCC called [facility] to asking if there are any providers who visit the home in [facility]. [employer] plan for next outreach: Will follow up one week Signature Melvina Almaraz RN July 19, 2018 CNPTOUTREACH Observed: 07/19/2018 Status: COMPLETED Source: [place] 12:00 AM [facility] REPOSITORY Patient Outreach (FAMPWS) VICKI HERNANDEZ ([id number]) 1960 F Date Time Provider Department 07/19/18 MELVINA ALMARAZ (RN) AUDREY During your visit today, we recorded the following information about you: Melvina Almaraz RN 07/19/2018 4:04 PM Signed PRIMARY CARE COORDINATION FOLLOW-UP NOTE Provider Action/FYI ORDERS PENDED PER VERBAL ORDER FROM PCP Patient identified by name and date of . YES Spoke to patient Summary: Discussed Palliative Care with patient. Patient agrees to Palliative Care as long as Dr. Holman can continue to be her PCP. States she wants to continue working on being able to ambulate to her van and get into and out of van to be able to come to PCP for appt. Patient asking if PCP would be willing to refill Ativan as long as she is going to be seen by Palliative Care. Patient asking if she could start torsemide 20 mg BID because she has gained so much weight and her lymphedema is worse. Informed PCC spoke to PCP and he would like home health nurse to draw labs this week before he starts medication. Discussed with PCP, PCC will discuss Palliative Care with patient. TC to patient, discussed [facility] doesn't go to [facility] and PCC called [facility] to asking if there are any providers who visit the home in [facility] no. [employer] plan for next outreach: Will follow up one week Signature Melvina Almaraz RN July 19, 2018 Rajesh Holman MD 07/19/2018 5:05 PM Signed Agree. oarrs checked. Scripts are needed and appropriate Melvina Almaraz RN 07/19/2018 5:05 PM Signed PRIMARY CARE COORDINATION QUICK NOTE Provider Action/FYI [facility] referral called to [facility] in Admission and records faxed Lab orders faxed to [facility] HH Ativan script called to [facility] TC to pt, informed ativan prescription approved and referral to [facility] done Patient identified by name and date . The following prescriptions have been called to [facility] pharmacy 07/19/2018 at 4:57 PM by Melvina Almaraz RN. I spoke with Champ in the pharmacy. Signed Prescriptions Disp Refills LORazepam (ATIVAN) 0.5 mg tab 60 tablet 0 Sig: Take 1 tablet by mouth every 6 hours as needed (anxiety) for up to 30 days. EDMAR Class: C-IV PEE: No Allergies As of Date: 07/19/2018 Noted Allergy Reaction CODEINE 11/19/2010 14 - Other: See Comments Comments: Itching, vomitting LATEX 11/19/2010 14 - Other: See Comments Comments: Itching,hives,dyspnea PHENOBARBITAL 11/19/2010 14 - Other: See Comments Comments: Nausea, itching TALWIN (PENTAZOCINE LACTATE) 11/19/2010 1 - Mental Status Change Comments: Hallucinations TREE NUT 02/07/2015 10 - Anaphylaxis Date Reviewed: 06/08/2017 Reviewed by: Karena Shaikh Cadd Drafter - Fully Assessed Reason for Visit: Bed Control Specialist Chronic Care [3612] Primary Visit Diagnosis:Lymphedema [I89.0] Other Visit Diagnoses:Anxiety [F41.9] Heart failure, diastolic, acute (HCC) [I50.31] Obesity, morbid, BMI 50 or higher ([facility]) [E66.01] Pulmonary HTN ([facility]) [I27.20] Type 2 diabetes mellitus with complication, with long-term current use of insulin ([facility]) [E11.8, Z79.4] Order(s):LORazepam (ATIVAN) 0.5 mg tabTake 1 tablet by mouth every 6 hours as needed (anxiety) for up to 30 days.Disp: 60 tabletRfl: 0 CONSULT TO PALLIATIVE CARE [2561060] Order #: [id number]: 1 COMPOUNDED PRESCRIPTIONCBC and Diff and CMP to be drawn by home health nurseDisp: 1 EachRfl: 0 Prescriptions as of 07/19/2018 Sig: LORAZEPAM 0.5 MG TABLET Take 1 tablet by mouth every * COMPOUNDED PRESCRIPTION CBC and Diff and CMP to be dr* APIXABAN 5 MG TABLET Take 1 tablet by mouth twice * VENLAFAXINE ER 75 MG CAPSULE,* Take 1 capsule by mouth twice* TRAMADOL 50 MG TABLET Take 1 tablet by mouth every * DILTIAZEM 120 MG TABLET Take 4 tablets by mouth once * GABAPENTIN 400 MG CAPSULE Take 1 capsule by mouth four * INSULIN LISPRO (U-100) 100 UN* Inject 6 Units subcutaneously* INSULIN GLARGINE (U-100) 100 * Inject 15 Units subcutaneousl* FLUTICASONE 50 MCG/ACTUATION * Use 2 Sprays in each nostril * THERAPEUTIC MULTIVITAMIN TABL* Take 1 tablet by mouth once d* DILTIAZEM SR 120 MG 24 HR CAP Take 1 capsule by mouth once * PEN NEEDLE, DIABETIC 29 GAUGE* Use one needle per dose. 5 p* EXENATIDE 5 MCG/DOSE (250 MCG* INJECT 5 mcg SUBCUTANEOUSLY T* IPRATROPIUM-ALBUTEROL 0.5 MG-* Inhale 3 mL as instructed kris* BUDESONIDE-FORMOTEROL HFA 160* Inhale 2 Puffs as instructed * COMPOUNDED PRESCRIPTION Oxygen for home @ 2L per BIPA* NADOLOL 40 MG TABLET TAKE THREE TABLETS BY MOUTH D* POLYETHYLENE GLYCOL 3350 17 G* Take 1 Packet by mouth as nee* CPAP ACETAMINOPHEN ER 650 MG TABLE* Take 650 mg by mouth every 8 * Problem List As Of Date 07/19/2018 Noted Resolved Diabetes ([facility]) [E11.9] INVALID FOR* More... Atrial fibrillation ([facility]) [I48.91] INVALID FOR* Priority: A More... Lymphedema [I89.0] INVALID FOR* Priority: B More... Heart failure, systolic and diastolic, acute on*INVALID FOR*12/31/2014 More... Obesity, morbid, BMI 50 or higher ([facility]) [E66.01]INVALID FOR* More... Hypertension [I10] INVALID FOR* More... HUNTER (obstructive sleep apnea) [G47.33] INVALID FOR* More... Pulmonary HTN ([facility]) [I27.20] INVALID FOR* More... Atrial fibrillation with RVR ([facility]) [I48.91] INVALID FOR*09/23/2016 More... Heart failure, diastolic, acute ([facility]) [I50.31] INVALID FOR* More... Counseling and coordination of care [Z71.89] INVALID FOR*04/12/2015 More... Monoclonal gammopathy [D47.2] INVALID FOR* Empty sella turcica ([facility]) [E23.6] INVALID FOR* More... Uncontrolled type 2 diabetes mellitus without c*INVALID FOR*09/23/2016 Prescriptions ordered this encounter Disp Refills Start End LORAZEPAM 0.5 MG TABLET 60 t* 0 07/19/2018 08/18/2018 Class: Print RX Route: ORAL Sig: Take 1 tablet by mouth every 6 hours as needed (anxiety) for up to 30 days. COMPOUNDED PRESCRIPTION 1 Ea* 0 07/19/2018 Class: Print RX Sig: CBC and Diff and CMP to be drawn by home health nurse Medications Discontinued During This Encounter LORazepam (ATIVAN) 0.5 mg tab 60 t* 0 06/06/2018 07/19/2018 Class: Print RX Route: ORAL Sig: Take 1 tablet by mouth every 6 hours as needed (anxiety) for up to 30 days. Disc: Reason for discontinue is not on file. Encounter Status:Closed by MELVINA ALMARAZ on 07/19/18 PROGRESS Observed: 07/01/2018 Status: COMPLETED Source: [place] 4:08 PM [facility] REPOSITORY [place] ID: [id number] Author: Melvina Emanuel) Sung Service: (none) Author Type: Registered Nurse Type: Progress Notes Filed: 07/01/2018 4:11 PM Note Text: PRIMARY CARE COORDINATION QUICK NOTE Provider Action/FYI Discussed with PCP and TC to patient, informed PCP will not refill any more medication without patient being seen by him. Instructed patient to come in to walk in clinic on Wednesday, 07/04, pt verbalized understanding Patient identified by name and date . TC from patient, left message she cancelled appt with Mechelle Connors on Wednesday because she wants to see Dr. Holman. States she rescheduled the appt until 07/20. States she only has 2 days of Ativan and 1 1/2 days of Tramadol left and needs refills. Melvina Almaraz RN CNPTOUTREACH Observed: 07/01/2018 Status: COMPLETED Source: [place] 12:00 AM [facility] REPOSITORY Patient Outreach (FAMPWS) VICKI HERNANDEZ ([id number]) 1960 F Date Time Provider Department 07/01/18 MELVINA ALMARAZ) DEANNAWS During your visit today, we recorded the following information about you: Melvina Almaraz RN 07/01/2018 4:11 PM Signed PRIMARY CARE COORDINATION QUICK NOTE Provider Action/FYI Discussed with PCP and TC to patient, informed PCP will not refill any more medication without patient being seen by him. Instructed patient to come in to walk in clinic on Wednesday, 07/04, pt verbalized understanding Patient identified by name and date . TC from patient, left message she cancelled appt with Mechelle Connors on Wednesday because she wants to see Dr. Holman. States she rescheduled the appt until 07/20. States she only has 2 days of Ativan and 1 1/2 days of Tramadol left and needs refills. Melvina Almaraz RN Allergies As of Date: 07/01/2018 Noted Allergy Reaction CODEINE 11/19/2010 14 - Other: See Comments Comments: Itching, vomitting LATEX 11/19/2010 14 - Other: See Comments Comments: Itching,hives,dyspnea PHENOBARBITAL 11/19/2010 14 - Other: See Comments Comments: Nausea, itching TALWIN (PENTAZOCINE LACTATE) 11/19/2010 1 - Mental Status Change Comments: Hallucinations TREE NUT 02/07/2015 10 - Anaphylaxis Date Reviewed: 06/08/2017 Reviewed by: Karena Shaikh Cadd Drafter - Fully Assessed Reason for Visit: Bed Control Specialist - Patient Initiated [3614] Prescriptions as of 07/01/2018 Sig: APIXABAN 5 MG TABLET Take 1 tablet by mouth twice * VENLAFAXINE ER 75 MG CAPSULE,* Take 1 capsule by mouth twice* LORAZEPAM 0.5 MG TABLET Take 1 tablet by mouth every * TRAMADOL 50 MG TABLET Take 1 tablet by mouth every * DILTIAZEM 120 MG TABLET Take 4 tablets by mouth once * GABAPENTIN 400 MG CAPSULE Take 1 capsule by mouth four * INSULIN LISPRO (U-100) 100 UN* Inject 6 Units subcutaneously* INSULIN GLARGINE (U-100) 100 * Inject 15 Units subcutaneousl* FLUTICASONE 50 MCG/ACTUATION * Use 2 Sprays in each nostril * THERAPEUTIC MULTIVITAMIN TABL* Take 1 tablet by mouth once d* DILTIAZEM SR 120 MG 24 HR CAP Take 1 capsule by mouth once * PEN NEEDLE, DIABETIC 29 GAUGE* Use one needle per dose. 5 p* EXENATIDE 5 MCG/DOSE (250 MCG* INJECT 5 mcg SUBCUTANEOUSLY T* IPRATROPIUM-ALBUTEROL 0.5 MG-* Inhale 3 mL as instructed kris* BUDESONIDE-FORMOTEROL HFA 160* Inhale 2 Puffs as instructed * COMPOUNDED PRESCRIPTION Oxygen for home @ 2L per BIPA* NADOLOL 40 MG TABLET TAKE THREE TABLETS BY MOUTH D* POLYETHYLENE GLYCOL 3350 17 G* Take 1 Packet by mouth as nee* CPAP ACETAMINOPHEN ER 650 MG TABLE* Take 650 mg by mouth every 8 * Problem List As Of Date 07/01/2018 Noted Resolved Diabetes (HCC) [E11.9] INVALID FOR* More... Atrial fibrillation (HCC) [I48.91] INVALID FOR* Priority: A More... Lymphedema [I89.0] INVALID FOR* Priority: B More... Heart failure, systolic and diastolic, acute on*INVALID FOR*12/31/2014 More... Obesity, morbid, BMI 50 or higher (HCC) [E66.01]INVALID FOR* More... Hypertension [I10] INVALID FOR* More... HUNTER (obstructive sleep apnea) [G47.33] INVALID FOR* More... Pulmonary HTN (HCC) [I27.20] INVALID FOR* More... Atrial fibrillation with RVR (HCC) [I48.91] INVALID FOR*09/23/2016 More... Heart failure, diastolic, acute (HCC) [I50.31] INVALID FOR* More... Counseling and coordination of care [Z71.89] INVALID FOR*04/12/2015 More... Monoclonal gammopathy [D47.2] INVALID FOR* Empty sella turcica (HCC) [E23.6] INVALID FOR* More... Uncontrolled type 2 diabetes mellitus without c*INVALID FOR*09/23/2016 Encounter Status:Closed by MELVINA ALMARAZ on 07/01/18 PROGRESS Observed: 06/20/2018 Status: COMPLETED Source: [place] 2:54 PM [facility] REPOSITORY [facility] ID: [id number] Author: Melvina (Rn) Sung Service: (none) Author Type: Registered Nurse Type: Progress Notes Filed: 06/20/2018 4:48 PM Note Text: PRIMARY CARE COORDINATION FOLLOW-UP NOTE Provider Action/FYI FYI Patient identified by name and date of . YES Spoke to patient Concerns: TC to patient, informed we have not been able to find a transportation company who will transport from patient home to MD office. States she will figure out with her family how to get in to see PCP. Called [employer] transportation in [facility] and left message to call PCC back. PCC and SW called numerous transportation companies in [facility] and [facility]. No transportation company will transport for patient's home to [facility]. Patient upset because she cannot find transportation to come into see PCP. Discussed pt having [facility] [employer] see pt until she is able to get in her van to come to see PCP. Pt states she will not see [facility]. She will only see her PCP or YOANA Hernandez. [employer] Manager plan for next outreach: Will follow up one month Signature Melvina Almaraz RN June 20, 2018 NATHANAEL Observed: 06/20/2018 Status: COMPLETED Source: [place] 12:00 AM [facility] REPOSITORY Patient Outreach (FAMPWS) VICKI HERNANDEZ ([id number]) 1960 F Date Time Provider Department 06/20/18 [facility] your visit today, we recorded the following information about you: Melvina Almaraz RN 06/20/2018 4:48 PM Signed PRIMARY CARE COORDINATION FOLLOW-UP NOTE Provider Action/FYI FYI Patient identified by name and date of . YES Spoke to patient Concerns: TC to patient, informed we have not been able to find a transportation company who will transport from patient home to MD office. States she will figure out with her family how to get in to see PCP. Called [employer] transportation in [facility] and left message to call PCC back. PCC and SW called numerous transportation companies in [facility] and [facility]. No transportation company will transport for patient's home to [facility]. Patient upset because she cannot find transportation to come into see PCP. Discussed pt having [facility] see pt until she is able to get in her van to come to see PCP. Pt states she will not see [employer]. She will only see her PCP or YOANA Hernandez. [employer] Manager plan for next outreach: Will follow up one month Signature Melvina Almaraz RN June 20, 2018 Allergies As of Date: 06/20/2018 Noted Allergy Reaction CODEINE 11/19/2010 14 - Other: See Comments Comments: Itching, vomitting LATEX 11/19/2010 14 - Other: See Comments Comments: Itching,hives,dyspnea PHENOBARBITAL 11/19/2010 14 - Other: See Comments Comments: Nausea, itching TALWIN (PENTAZOCINE LACTATE) 11/19/2010 1 - Mental Status Change Comments: Hallucinations TREE NUT 02/07/2015 10 - Anaphylaxis Date Reviewed: 06/08/2017 Reviewed by: Karena Shaikh Cadd Drafter - Fully Assessed Reason for Visit: Bed Control Specialist Chronic Care [3611] Prescriptions as of 06/20/2018 Sig: APIXABAN 5 MG TABLET Take 1 tablet by mouth twice * VENLAFAXINE ER 75 MG CAPSULE,* Take 1 capsule by mouth twice* LORAZEPAM 0.5 MG TABLET Take 1 tablet by mouth every * TRAMADOL 50 MG TABLET Take 1 tablet by mouth every * DILTIAZEM 120 MG TABLET Take 4 tablets by mouth once * GABAPENTIN 400 MG CAPSULE Take 1 capsule by mouth four * INSULIN LISPRO (U-100) 100 UN* Inject 6 Units subcutaneously* INSULIN GLARGINE (U-100) 100 * Inject 15 Units subcutaneousl* FLUTICASONE 50 MCG/ACTUATION * Use 2 Sprays in each nostril * THERAPEUTIC MULTIVITAMIN TABL* Take 1 tablet by mouth once d* DILTIAZEM SR 120 MG 24 HR CAP Take 1 capsule by mouth once * PEN NEEDLE, DIABETIC 29 GAUGE* Use one needle per dose. 5 p* EXENATIDE 5 MCG/DOSE (250 MCG* INJECT 5 mcg SUBCUTANEOUSLY T* IPRATROPIUM-ALBUTEROL 0.5 MG-* Inhale 3 mL as instructed kris* BUDESONIDE-FORMOTEROL HFA 160* Inhale 2 Puffs as instructed * COMPOUNDED PRESCRIPTION Oxygen for home @ 2L per BIPA* NADOLOL 40 MG TABLET TAKE THREE TABLETS BY MOUTH D* POLYETHYLENE GLYCOL 3350 17 G* Take 1 Packet by mouth as nee* CPAP ACETAMINOPHEN ER 650 MG TABLE* Take 650 mg by mouth every 8 * Problem List As Of Date 06/20/2018 Noted Resolved Diabetes (HCC) [E11.9] INVALID FOR* More... Atrial fibrillation (HCC) [I48.91] INVALID FOR* Priority: A More... Lymphedema [I89.0] INVALID FOR* Priority: B More... Heart failure, systolic and diastolic, acute on*INVALID FOR*12/31/2014 More... Obesity, morbid, BMI 50 or higher (HCC) [E66.01]INVALID FOR* More... Hypertension [I10] INVALID FOR* More... HUNTER (obstructive sleep apnea) [G47.33] INVALID FOR* More... Pulmonary HTN (HCC) [I27.20] INVALID FOR* More... Atrial fibrillation with RVR (HCC) [I48.91] INVALID FOR*09/23/2016 More... Heart failure, diastolic, acute (HCC) [I50.31] INVALID FOR* More... Counseling and coordination of care [Z71.89] INVALID FOR*04/12/2015 More... Monoclonal gammopathy [D47.2] INVALID FOR* Empty sella turcica (HCC) [E23.6] INVALID FOR* More... Uncontrolled type 2 diabetes mellitus without c*INVALID FOR*09/23/2016 Encounter Status:Closed by MELVINA ALMARAZ on 06/21/18 VENOUS DUPLEX LOWER Observed: 06/13/2018 Status: F Source: [facility] 8:11 AM [facility] REPOSITORY [facility] Cardiovascular Services [address] [place] [id number] Venous Duplex - Sebastian Extrem 06/07/18 1310 MR#: [id number] Acct: [id number] Name: VICKI HERNANDEZ Rep #: [id number] : 1960 57 From: Henry Caballero MD Attending Dr: Alejo Martinez MD Status: REG RCR Ordering Dr: Alejo Martinez MD Date: 06/07/18 Location: Sex: F C Admitted: Reason For Study: Non-healing wounds RIGHT LEFT GSV is normal. GSV is normal. CFV is compressible, spontaneous, phasic, CFV is compressible, spontaneous, phasic, competent and demonstrates normal competent, and demonstrates normal augmentation. augmentation. FV is compressible, spontaneous, phasic, FV is compressible, spontaneous, phasic, competent and demonstrates normal competent and demonstrates normal augmentation. augmentation. POP V is compressible, spontaneous, phasic, POP V is compressible, spontaneous, phasic, competent and demonstrates normal competent and demonstrates normal augmentation. augmentation. SFJ is competent T/P Trunk is compressible. GSV competent SFJ is competent SSV competent. GSV is competent Procedure SSV is competent. Exam performed in department. Technically very limited due to body habitus. A preliminary report was called and/or faxed to [facility]. Interpretation Summary Deep veins of the lower extremities are bilaterally patent and compressible segmentally. There is no evidence of deep vein thrombosis on either side. Valvular competence appears intact within the proximal deep venous systems bilaterally. The greater saphenous veins appear bilaterally patent and compressible segmentally. Sapheno-femoral junctions are bilaterally competent . Valvular competence appears to be intact segmentally within the greater saphenous veins bilaterally. Small saphenous veins are patent and competent bilaterally. The deep veins of the calf were not visualized on either side due to the patient's body habitus. Ordering Physician: Alejo Martinez Referring Physician: Alejo Martinez Performed By: Breana Goldberg RVT 06/13/1810 Date Henry Caballero MD CC: Alejo Martinez MD; Axel Costello MD Date Dictated: 06/07/18 1310 Date Transcribed: 06/13/18809 Dog Licenser: Signed LOWER EXT ARTERIAL Observed: 06/12/2018 Status: F Source: [facility] 10:56 AM [facility] REPOSITORY [facility] Cardiovascular Services [address] [place] [address] 06/12/18 1049 MR#: [id number] Acct: [id number] Name: VICKI HERNANDEZ Rep #: [id number] : 1960 57 From: Henry Caballero MD Attending Dr: Alejo Martinez MD Status: REG RCR Ordering Dr: Date: 06/12/18 Location: Sex: F C Admitted: Arterial Study - Arterial Study Arterial Study: This is a 56-year-old female with a history of congestive heart failure, atrial fibrillation, hypertension, obstructive sleep apnea, pulmonary hypertension, diabetes mellitus, and morbid obesity. The patient presents with a chronic nonhealing wound to the lower extremity. Suspecting the presence of atherosclerotic peripheral arterial occlusive disease, the patient was brought to the noninvasive vascular laboratory at this time for the purpose of bilateral noninvasive lower extremity arterial assessment. Doppler signal assessment was used to evaluate the pulses at ankle level bilaterally. Posterior tibial and dorsalis pedis waveforms were biphasic bilaterally. Segmental limb pressures were obtained bilaterally. Ankle pressures, as determined by posterior tibial and dorsalis pedis pulses, could not be determined on either side due to the noncompressibility of the vasculature. The right digital pressure was measured at 152 mmHg. The left digital pressure was measured at 136 mmHg. Pulse volume recordings were obtained at ankle and digital levels bilaterally. Waveform amplitudes appeared to be generally satisfactory bilaterally. Resting ankle brachial indices could not be determined on either side due to the noncompressibility of the vasculature. Digital brachial indices were calculated bilaterally. The right digital-brachial index was calculated to be 1.19. The left digital-brachial index was calculated to be 1.06. Impression: Based upon the findings of this resting noninvasive lower extremity arterial study, the arterial tree at ankle level is bilaterally noncompressible. This may be due to morbid obesity, or perhaps arterial calcification. In this regard, clinical correlation is advised. Nonetheless, ankle brachial indices could not be calculated on either side. Digital-brachial indices are bilaterally normal, which suggests relatively normal arterial flow at digital level bilaterally. Therefore, there is no specific indication of arterial occlusive disease in the lower extremities bilaterally. However, clinical correlation is recommended. 06/12/18 1056 <Electronically signed by Henry Caballero MD> Date Henry Caballero MD CC: Alejo Martinez MD; Axel Costello MD Date Dictated: 06/12/181048 Date Transcribed: 06/12/181048 Dog Licenser: BHANU Signed PROGRESS Observed: 06/06/2018 Status: COMPLETED Source: [place] 4:30 PM [facility] ID: [id number] Author: Melvina Emanuel) Sung Service: (none) Author Type: Registered Nurse Type: Progress Notes Filed: 06/06/2018 4:31 PM Note Text: Faxed request for Medical Records; Discharge Summary, Medication List and Cardiology note for hospitalization in December 2017 to [facility]. Melvina Almaraz RN June 06, 2018 4:31 PM PROGRESS Observed: 06/06/2018 Status: COMPLETED Source: [place] 4:07 PM [facility] ID: [id number] Author: Melvina Emanuel) Sung Service: (none) Author Type: Registered Nurse Type: Progress Notes Filed: 06/06/2018 4:25 PM Note Text: PRIMARY CARE COORDINATION QUICK NOTE Provider Action/FYI TC to patient, informed all scripts have been sent to pharmacy. Informed insurance will only pay for 360 mg daily of cardizem. Pharmacy will send prior authorization. Pt has been checking BP-110-130/70-80 P-85-119 Patient identified by name and date . The following prescriptions have been called to [facility] pharmacy 06/06/2018 at 4:08 PM by Melvina Almaraz RN. I spoke with Sydnee in the pharmacy. Signed Prescriptions Disp Refills apixaban (ELIQUIS) 5 mg tab(s) 60 tablet 0 Sig: Take 1 tablet by mouth twice daily. PEE: No venlafaxine ER (EFFEXOR XR) 75 mg 24 hr capsule 60 capsule 0 Sig: Take 1 capsule by mouth twice daily. PEE: No LORazepam (ATIVAN) 0.5 mg tab 60 tablet 0 Sig: Take 1 tablet by mouth every 6 hours as needed (anxiety) for up to 30 days. EDMAR Class: C-IV PEE: No traMADol (ULTRAM) 50 mg tablet 60 tablet 0 Sig: Take 1 tablet by mouth every 6 hours as needed for Pain for up to 30 days. EDMAR Class: C-IV PEE: No diltiazem (CARDIZEM) 120 mg tablet 120 tablet 0 Sig: Take 4 tablets by mouth once daily. Sydnee also questioned Cardizem dose of 480 mg daily, states insurance will only pay for 360 mg daily. She will have to send through a prior authorization. Informed PCC clarified with [facility] that pt was receiving 480 mg at her admission and during her stay there. Pt states she was put on that dose by clinic lead and [facility]. Melvina Almaraz RN June 06, 2018 4:12 PM PROGRESS Observed: 06/06/2018 Status: COMPLETED Source: [place] 12:40 PM [facility] RE[facility] ID: [id number] Author: Rajesh Holman Service: (none) Author Type: Physician Type: Progress Notes Filed: 06/06/2018 1:50 PM Note Text: Gave one refill to allow time to come in. Checked oarrs PROGRESS Observed: 06/06/2018 Status: COMPLETED Source: [place] 12:32 PM [facility] ID: [id number] Author: Melvina Emanuel) Sung Service: (none) Author Type: Registered Nurse Type: Progress Notes Filed: 06/06/2018 12:36 PM Note Text: PRIMARY CARE COORDINATION FOLLOW-UP NOTE Provider Action/TAHIRA TC to [facility] to verify pt was taking Diltiazem 480 mg daily. States they were giving her that dose (not long acting tablet) Strongly encouraged pt to come in to see PCP, states she cannot come in this week but has assistance to come in for scheduled appt on 06/16 States she only has one Tramadol tablet left and she [facility]. Patient identified by name and date of . YES Spoke to patient and Med Rec at [facility] Summary: Patient phones requesting refills as follows: Pending Prescriptions Disp Refills APIXABAN 5 MG TABLET 60 tablet 11 Sig: Take 1 tablet by mouth twice daily. PEE: No VENLAFAXINE ER 75 MG CAPSULE,EXTENDED RELEASE 24 HR 60 capsule 3 Sig: Take 1 capsule by mouth twice daily. PEE: No LORAZEPAM 0.5 MG TABLET 60 tablet 0 Sig: Take 1 tablet by mouth every 6 hours as needed (anxiety) for up to 30 days. EDMAR Class: C-IV PEE: No TRAMADOL 50 MG TABLET 60 tablet 0 Sig: Take 1 tablet by mouth every 6 hours as needed for Pain for up to 30 days. EDMAR Class: C-IV PEE: No DILTIAZEM 120 MG TABLET 120 tablet 3 Sig: Take 4 tablets by mouth once daily. Please review and advise. [employer] Manager plan for next outreach: Will follow up 1-2 weeks Signature Melvina Almaraz RN June 06, 2018 NATHANAEL Observed: 06/06/2018 Status: COMPLETED Source: [place] 12:00 AM [facility] REPOSITORY Patient Outreach (FAMPWS) VICKI HERNANDEZ ([id number]) 1960 F Date Time Provider Department 06/06/18 MELVINA ALMARAZ (RN) FAMPWS During your visit today, we recorded the following information about you: Melvina Almaraz RN 06/06/2018 12:36 PM Signed PRIMARY CARE COORDINATION FOLLOW-UP NOTE Provider Action/TAHIRA BO to [facility] to verify pt was taking Diltiazem 480 mg daily. States they were giving her that dose (not long acting tablet) Strongly encouraged pt to come in to see PCP, states she cannot come in this week but has assistance to come in for scheduled appt on 06/16 States she only has one Tramadol tablet left and she [facility]. Patient identified by name and date of . YES Spoke to patient and Med Rec at [facility] Summary: Patient phones requesting refills as follows: Pending Prescriptions Disp Refills APIXABAN 5 MG TABLET 60 tablet 11 Sig: Take 1 tablet by mouth twice daily. PEE: No VENLAFAXINE ER 75 MG CAPSULE,EXTENDED RELEASE 24 HR 60 capsule 3 Sig: Take 1 capsule by mouth twice daily. PEE: No LORAZEPAM 0.5 MG TABLET 60 tablet 0 Sig: Take 1 tablet by mouth every 6 hours as needed (anxiety) for up to 30 days. EDMAR Class: C-IV PEE: No TRAMADOL 50 MG TABLET 60 tablet 0 Sig: Take 1 tablet by mouth every 6 hours as needed for Pain for up to 30 days. EDMAR Class: C-IV PEE: No DILTIAZEM 120 MG TABLET 120 tablet 3 Sig: Take 4 tablets by mouth once daily. Please review and advise. [employer] Manager plan for next outreach: Will follow up 1-2 weeks Signature Melvina Almaraz RN June 06, 2018 Rajesh Holman MD 06/06/2018 1:50 PM Signed Gave one refill to allow time to come in. Checked oarrs Melvina Almaraz RN 06/06/2018 4:25 PM Signed PRIMARY CARE COORDINATION QUICK NOTE Provider Action/FYI TC to patient, informed all scripts have been sent to pharmacy. Informed insurance will only pay for 360 mg daily of cardizem. Pharmacy will send prior authorization. Pt has been checking BP-110-130/70-80 P-85-119 Patient identified by name and date . The following prescriptions have been called to [facility] pharmacy 06/06/2018 at 4:08 PM by Melvina Almaraz RN. I spoke with Sydnee in the pharmacy. Signed Prescriptions Disp Refills apixaban (ELIQUIS) 5 mg tab(s) 60 tablet 0 Sig: Take 1 tablet by mouth twice daily. PEE: No venlafaxine ER (EFFEXOR XR) 75 mg 24 hr capsule 60 capsule 0 Sig: Take 1 capsule by mouth twice daily. PEE: No LORazepam (ATIVAN) 0.5 mg tab 60 tablet 0 Sig: Take 1 tablet by mouth every 6 hours as needed (anxiety) for up to 30 days. EDMAR Class: C-IV PEE: No traMADol (ULTRAM) 50 mg tablet 60 tablet 0 Sig: Take 1 tablet by mouth every 6 hours as needed for Pain for up to 30 days. EDMAR Class: C-IV PEE: No diltiazem (CARDIZEM) 120 mg tablet 120 tablet 0 Sig: Take 4 tablets by mouth once daily. Sydnee also questioned Cardizem dose of 480 mg daily, states insurance will only pay for 360 mg daily. She will have to send through a prior authorization. Informed PCC clarified with [facility] that pt was receiving 480 mg at her admission and during her stay there. Pt states she was put on that dose by clinic lead and [facility]. Melvina Almaraz RN June 06, 2018 4:12 PM Melvina Almaraz RN 06/06/2018 4:31 PM Signed Faxed request for Medical Records; Discharge Summary, Medication List and Cardiology note for hospitalization in December 2017 to [facility]. 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 - Patient Initiated [4524] Visit Diagnoses:Atrial fibrillation, unspecified type (HCC) [I48.91] Essential hypertension [I10] Anxiety [F41.9] Multiple open wounds of lower leg, sequela [S81.809S] Order(s):apixaban (ELIQUIS) 5 mg tab(s)Take 1 tablet by mouth twice daily.Disp: 60 tabletRfl: 0 venlafaxine ER (EFFEXOR XR) 75 mg 24 hr capsuleTake 1 capsule by mouth twice daily.Disp: 60 capsuleRfl: 0 LORazepam (ATIVAN) 0.5 mg tabTake 1 tablet by mouth every 6 hours as needed (anxiety) for up to 30 days.Disp: 60 tabletRfl: 0 traMADol (ULTRAM) 50 mg tabletTake 1 tablet by mouth every 6 hours as needed for Pain for up to 30 days.Disp: 60 tabletRfl: 0 diltiazem (CARDIZEM) 120 mg tabletTake 4 tablets by mouth once daily.Disp: 120 tabletRfl: 0 Prescriptions as of 06/06/2018 Sig: APIXABAN 5 MG TABLET Take 1 tablet by mouth twice * VENLAFAXINE ER 75 MG CAPSULE,* Take 1 capsule by mouth twice* LORAZEPAM 0.5 MG TABLET Take 1 tablet by mouth every * TRAMADOL 50 MG TABLET Take 1 tablet by mouth every * DILTIAZEM 120 MG TABLET Take 4 tablets by mouth once * GABAPENTIN 400 MG CAPSULE Take 1 capsule by mouth four * INSULIN LISPRO (U-100) 100 UN* Inject 6 Units subcutaneously* INSULIN GLARGINE (U-100) 100 * Inject 15 Units subcutaneousl* FLUTICASONE 50 MCG/ACTUATION * Use 2 Sprays in each nostril * THERAPEUTIC MULTIVITAMIN TABL* Take 1 tablet by mouth once d* DILTIAZEM SR 120 MG 24 HR CAP Take 1 capsule by mouth once * PEN NEEDLE, DIABETIC 29 GAUGE* Use one needle per dose. 5 p* EXENATIDE 5 MCG/DOSE (250 MCG* INJECT 5 mcg SUBCUTANEOUSLY T* IPRATROPIUM-ALBUTEROL 0.5 MG-* Inhale 3 mL as instructed kris* BUDESONIDE-FORMOTEROL HFA 160* Inhale 2 Puffs as instructed * COMPOUNDED PRESCRIPTION Oxygen for home @ 2L per BIPA* NADOLOL 40 MG TABLET TAKE THREE TABLETS BY MOUTH D* POLYETHYLENE GLYCOL 3350 17 G* Take 1 Packet by mouth as nee* CPAP ACETAMINOPHEN ER 650 MG TABLE* Take 650 mg by mouth every 8 * Problem List As Of Date 06/06/2018 Noted Resolved Diabetes (HCC) [E11.9] INVALID FOR* More... Atrial fibrillation (HCC) [I48.91] INVALID FOR* Priority: A More... Lymphedema [I89.0] INVALID FOR* Priority: B More... Heart failure, systolic and diastolic, acute on*INVALID FOR*12/31/2014 More... Obesity, morbid, BMI 50 or higher (HCC) [E66.01]INVALID FOR* More... Hypertension [I10] INVALID FOR* More... HUNTER (obstructive sleep apnea) [G47.33] INVALID FOR* More... Pulmonary HTN (HCC) [I27.20] INVALID FOR* More... Atrial fibrillation with RVR (HCC) [I48.91] INVALID FOR*09/23/2016 More... Heart failure, diastolic, acute (HCC) [I50.31] INVALID FOR* More... Counseling and coordination of care [Z71.89] INVALID FOR*04/12/2015 More... Monoclonal gammopathy [D47.2] INVALID FOR* Empty sella turcica (HCC) [E23.6] INVALID FOR* More... Uncontrolled type 2 diabetes mellitus without c*INVALID FOR*09/23/2016 Prescriptions ordered this encounter Disp Refills Start End APIXABAN 5 MG TABLET 60 t* 0 06/06/2018 Route: ORAL Sig: Take 1 tablet by mouth twice daily. VENLAFAXINE ER 75 MG CAPSULE,EXTENDE* 60 c* 0 06/06/2018 Route: ORAL Sig: Take 1 capsule by mouth twice daily. LORAZEPAM 0.5 MG TABLET 60 t* 0 06/06/2018 07/06/2018 Class: Print RX Route: ORAL Sig: Take 1 tablet by mouth every 6 hours as needed (anxiety) for up to 30 days. TRAMADOL 50 MG TABLET 60 t* 0 06/06/2018 07/06/2018 Class: Print RX Route: ORAL Sig: Take 1 tablet by mouth every 6 hours as needed for Pain for up to 30 days. DILTIAZEM 120 MG TABLET 120 * 0 06/06/2018 Route: ORAL Sig: Take 4 tablets by mouth once daily. Medications Discontinued During This Encounter apixaban (ELIQUIS) 5 mg tab(s) 03/22/2018 06/06/2018 Class: Med Update Route: ORAL Sig: Take 1 tablet by mouth twice daily. Disc: Reason for discontinue is not on file. venlafaxine ER (EFFEXOR XR) 75 mg 24* 03/22/2018 06/06/2018 Class: Med Update Route: ORAL Sig: Take 1 capsule by mouth twice daily. Disc: Reason for discontinue is not on file. LORazepam (ATIVAN) 0.5 mg tab 60 t* 0 05/02/2018 06/06/2018 Class: Print RX Route: ORAL Sig: Take 1 tablet by mouth every 6 hours as needed (anxiety) for up to 30 days. Disc: Reason for discontinue is not on file. traMADol (ULTRAM) 50 mg tablet 60 t* 0 05/11/2018 06/06/2018 Class: Print RX Route: ORAL Sig: Take 1 tablet by mouth every 6 hours as needed for Pain for up to 30 days. Disc: Reason for discontinue is not on file. Encounter Status:Closed by MELVINA ALMARAZ on 06/06/18 PROGRESS Observed: 05/19/2018 Status: COMPLETED Source: [place] 11:55 AM [facility] RE[facility]IT[facility] ID: [id number] Author: Melvina Emanuel) Sung Service: (none) Author Type: Registered Nurse Type: Progress Notes Filed: 05/19/2018 1:45 PM Note Text: PRIMARY CARE COORDINATION FOLLOW-UP NOTE Provider Action/FYI FBS and Afternoon BS ranging 140's to highest 174 No hypoglycemia PCP appt scheduled 06/16 Vascular Studies on 05/24 then Lymphedema Clinic at [facility] Patient identified by name and date of . YES Spoke to patient Summary: SOB with ambulating in home, normal respirations resume in 2-3 minutes rest No cough or chest pain LE edema is the same LE wounds were debrided at [facility] two weeks ago. Pt just bathed, washed and re-dressed wounds Pain level currently 4/10, took Tylenol ES If pain is 6+/10 pt takes 1 Tramadol with relief. Gabapentin 400 mg QID is helping Lymphedema pain. Having Vascular Studies on 05/24. After studies Wound Center MD wants to send pt to Lymphedema Clinic. [employer] Manager plan for next outreach: Will follow up one month Signature Melvina Almaraz RN May 19, 2018 CNPTOUTREACH Observed: 05/19/2018 Status: COMPLETED Source: [place] 12:00 AM [facility] REPOSITORY Patient Outreach (FAMPWS) VICKI HERNANDEZ ([id number]) 1960 F Date Time Provider Department 05/19/18 MELVINA ALMARAZ) DEANNAWS During your visit today, we recorded the following information about you: Melvina Almaraz RN 05/19/2018 1:45 PM Signed PRIMARY CARE COORDINATION FOLLOW-UP NOTE Provider Action/FYI FBS and Afternoon BS ranging 140's to highest 174 No hypoglycemia PCP appt scheduled 06/16 Vascular Studies on 05/24 then Lymphedema Clinic at [facility] Patient identified by name and date of . YES Spoke to patient Summary: SOB with ambulating in home, normal respirations resume in 2-3 minutes rest No cough or chest pain LE edema is the same LE wounds were debrided at [facility] two weeks ago. Pt just bathed, washed and re-dressed wounds Pain level currently 4/10, took Tylenol ES If pain is 6+/10 pt takes 1 Tramadol with relief. Gabapentin 400 mg QID is helping Lymphedema pain. Having Vascular Studies on 05/24. After studies Wound Center wants to send pt to Lymphedema Clinic. [employer] Manager plan for next outreach: Will follow up one month Signature Melvina Almaraz RN May 19, 2018 Allergies As of Date: 05/19/2018 Noted Allergy Reaction CODEINE 11/19/2010 14 - Other: See Comments Comments: Itching, vomitting LATEX 11/19/2010 14 - Other: See Comments Comments: Itching,hives,dyspnea PHENOBARBITAL 11/19/2010 14 - Other: See Comments Comments: Nausea, itching TALWIN (PENTAZOCINE LACTATE) 11/19/2010 1 - Mental Status Change Comments: Hallucinations TREE NUT 02/07/2015 10 - Anaphylaxis Date Reviewed: 06/08/2017 Reviewed by: Karena Shaikh Cadd Drafter - Fully Assessed Reason for Visit: Bed Control Specialist Chronic Care [3612] Primary Visit Diagnosis:Type 2 diabetes mellitus with peripheral neuropathy ([facility]) [E11.42] Other Visit Diagnoses:Obesity, morbid, BMI 50 or higher ([facility]) [E66.01] Hypertension, unspecified type [I10] Heart failure, diastolic, acute ([facility]) [I50.31] Order(s):LIPID PANEL, NONFASTING [SQLIPNF] Order #: [id number] FUTURE Prescriptions as of 05/19/2018 Sig: TRAMADOL 50 MG TABLET Take 1 tablet by mouth every * GABAPENTIN 400 MG CAPSULE Take 1 capsule by mouth four * LORAZEPAM 0.5 MG TABLET Take 1 tablet by mouth every * INSULIN LISPRO (U-100) 100 UN* Inject 6 Units subcutaneously* INSULIN GLARGINE (U-100) 100 * Inject 15 Units subcutaneousl* APIXABAN 5 MG TABLET Take 1 tablet by mouth twice * FLUTICASONE 50 MCG/ACTUATION * Use 2 Sprays in each nostril * THERAPEUTIC MULTIVITAMIN TABL* Take 1 tablet by mouth once d* VENLAFAXINE ER 75 MG CAPSULE,* Take 1 capsule by mouth twice* DILTIAZEM SR 120 MG 24 HR CAP Take 1 capsule by mouth once * PEN NEEDLE, DIABETIC 29 GAUGE* Use one needle per dose. 5 p* EXENATIDE 5 MCG/DOSE (250 MCG* INJECT 5 mcg SUBCUTANEOUSLY T* IPRATROPIUM-ALBUTEROL 0.5 MG-* Inhale 3 mL as instructed kris* BUDESONIDE-FORMOTEROL HFA 160* Inhale 2 Puffs as instructed * COMPOUNDED PRESCRIPTION Oxygen for home @ 2L per BIPA* NADOLOL 40 MG TABLET TAKE THREE TABLETS BY MOUTH D* POLYETHYLENE GLYCOL 3350 17 G* Take 1 Packet by mouth as nee* CPAP ACETAMINOPHEN ER 650 MG TABLE* Take 650 mg by mouth every 8 * Problem List As Of Date 05/19/2018 Noted Resolved Diabetes (HCC) [E11.9] INVALID FOR* More... Atrial fibrillation (HCC) [I48.91] INVALID FOR* Priority: A More... Lymphedema [I89.0] INVALID FOR* Priority: B More... Heart failure, systolic and diastolic, acute on*INVALID FOR*12/31/2014 More... Obesity, morbid, BMI 50 or higher (HCC) [E66.01]INVALID FOR* More... Hypertension [I10] INVALID FOR* More... HUNTER (obstructive sleep apnea) [G47.33] INVALID FOR* More... Pulmonary HTN (HCC) [I27.20] INVALID FOR* More... Atrial fibrillation with RVR (HCC) [I48.91] INVALID FOR*09/23/2016 More... Heart failure, diastolic, acute (HCC) [I50.31] INVALID FOR* More... Counseling and coordination of care [Z71.89] INVALID FOR*04/12/2015 More... Monoclonal gammopathy [D47.2] INVALID FOR* Empty sella turcica (HCC) [E23.6] INVALID FOR* More... Uncontrolled type 2 diabetes mellitus without c*INVALID FOR*09/23/2016 Encounter Status:Closed by MELVINA ALMARAZ on 05/19/18 WOUND CTR HISTORY Observed: 05/11/2018 Status: F Source: [place] [facility] 5:04 PM [facility] REPOSITORY [facility] [address] [place] [address] Wound Ctr History AND Physical 05/11/18 1613 MR#: [id number] Acct: [id number] Name: VICKI HERNANDEZ Rep #: [id number] : 1960 57 From: Mariluz MICHELLEC PCP: Axel Costello MD Status: REG RCR Y Location: (1) Ulcer of left lower extremity with fat layer exposed Status: Acute Current Visit: Yes Code(s): L97.922 - Non- pressure chronic ulcer of unspecified part of left lower leg with fat layer exposed (2) Ulcer of right lower extremity with fat layer exposed Status: Acute Current Visit: Yes Code(s): L97.912 - Non- pressure chronic ulcer of unspecified part of right lower leg with fat layer exposed (3) Chronic acquired lymphedema Status: Acute Current Visit: Yes Code(s): I89.0 - Lymphedema, not elsewhere classified (4) Morbid obesity Status: Chronic Current Visit: No Code(s): E66.01 - Morbid (severe) obesity due to excess calories History of Present Illness Date of Service: 05/10/18 Chief Complaint: Nonhealing ulcers right lateral lower leg and left lateral lower leg status post surgical debridement November 2017. History of Wound: Surgery 12/09/17 - 1. Surgical preparation right posterior leg with incision and drainage and excisional debridement nonhealing infected MRSA ulcer abscess (264 cm2). 2. Surgical preparation right posterior thigh with incision and drainage and excisional debridement nonhealing infected MRSA ulcer abscess (112 cm2). 3. Surgical preparation left posterior leg with incision and drainage and excisional debridement nonhealing infected MRSA ulcer abscess (216 cm2). 4. Surgical preparation right lateral ankle with incision and drainage and excisional debridement nonhealing infected MRSA ulcer abscess (4 cm2). 5. Surgical preparation left medial ankle with incision and drainage and excisional debridement nonhealing infected MRSA ulcer abscess (4 cm2). Wound care - Silver. Operative culture - Proteus mirabilis, STreptococcus agalactiae, MRSA, anaerobic cocci, Corynebacterium minute SMM. She was treated with vancomycin, ceftriaxone, and Flagyl. Wound culture later on 01/07 showed Pseudomonas organism and was considered a surface contaminant. Pre-albumin at that time was 7.9. The patient was encouraged nutritional supplementation with protein to help with the healing process A1c was 11.3. The patient has not followed up since February 2018 and now presents to the wound healing center with complaints as above. Some of her previous wounds have healed however she continues to have the left and right lower extremity nonhealing ulcers. She denies any systemic signs of infection and denies any purulent drainage, pain at the ulcers, or other complaints. She does complain of having significant bilateral lower extremity edema. She otherwise denies any fever, chills, nausea, vomiting, shortness of breath, chest pain or pressure, syncope or presyncopal episodes. Past Medical History Past Medical History: Chronic Problems (Last Updated 12/07/17 @ 09:05 by Thomas Carrasco MD) Nonhealing ulcer of multiple sites of left lower extremity with fat layer exposed (Chronic) Iron deficiency anemia, unspecified (Chronic) Sleep apnea (Chronic) Poor compliance with CPAP treatment (Chronic) Biatrial enlargement (Chronic) Non-healing wound (Chronic) Chronic anticoagulation (Chronic) Diastolic CHF, chronic (Chronic) Pulmonary hypertension (Chronic) Morbid obesity (Chronic) Chronic atrial fibrillation (Chronic) Type 2 diabetes mellitus (Chronic) Hypertension (Chronic) Surgical History: cholecystectomy, hysterectomy - with BSO, tonsillectomy, - - 2 section. Allergies/Adverse Reactions: Allergies latex Allergy (Verified 03/07/18 11:40) Itching pentazocine lactate [From Talwin] Allergy (Verified 03/07/18 11:40) Itching phenobarbital Allergy (Verified 03/07/18 11:40) Itching tree nut Allergy (Verified 03/07/18 11:40) Anaphylaxis codeine Adverse Reaction (Verified 03/07/18 11:40) Upset Stomach Home Medications: Ambulatory Orders Medication Instructions Recorded albuterol sulfate HFA 90 2 puff INHALATION Q4H PRN g 08/26/17 - Family History Maternal Family History: Family History (Last Updated 08/26/17 @ 10:41 by Erin Carter) Mother Colon cancer Diabetes Hypertension CHF (congestive heart failure) Father COPD (chronic obstructive pulmonary disease) Heart disease Diabetes Brother Heart disease Stomach cancer Sister Ovarian cancer No pertinent history Paternal Family History: Family History (Last Updated 08/26/17 @ 10:41 by Erin Carter) Mother Colon cancer Diabetes Hypertension CHF (congestive heart failure) Father COPD (chronic obstructive pulmonary disease) Heart disease Diabetes Brother Heart disease Stomach cancer Sister Ovarian cancer No pertinent history Smoking Status: Former smoker Review of Systems Constitutional: Denies: Chills, Fever, Weight Change Eyes: Denies: Pain, Vision Change HEENT: Denies: Difficulty Hearing, Difficulty Swallowing, Sinus Congestion Cardiovascular: Reports: Edema - Bilateral lower extremity edema.. Denies: Chest Pain, Palpitations Respiratory: Denies: Cough, Shortness of Breath Gastrointestinal: Denies: Diarrhea, Nausea, Vomiting Genitourinary: Denies: Dysuria, Hematuria Skin: Reports: Wounds - see HPI Endocrine: Denies: Heat/ Cold Intolerance, Polydipsia, Polyuria Hematologic/ Lymphatic: Denies: Easy Bruising, Easy Bleeding - Physical Exam Vital Signs Temp Pulse Resp BP 99.1 F 78 20 H 108/67 05/10/18 14:49 05/10/18 14:49 05/10/18 14:49 05/10/18 14:49 General: Alert, Oriented x3, Cooperative HEENT: Atraumatic, Normocephalic Oral: Moist Mucosa Lungs: Clear to auscultation, Normal air movement Cardiovascular: Regular rate, Regular Rhythm Extremities: No clubbing, No cyanosis, Diminished Peripheral Pulses, Edema - Significant amount of lower extremity edema with edema on the right. Difficult to palpate pedal pulses. Skin: Ulcer/ Wound - Left lateral lower extremity wound 17.3x2.4x0.1 cm Right lateral lower extremity wound 12.5x6.6x 0.2 cm Wound Measurements and Assessment WC - Nurse 1 - General Ulcer Measurement Start: 05/10/18 14:29 Freq: Status: Active Protocol: Activity Type Activity Date Activity User E-Sign Co-Sign Detail Recorded Client Recorded Date Recorded By Document 05/10/18 14:49 CS [id number] 05/10/18 15:02 CS Wound Center Nurse 1 [Ulcer Assessment] #6 LEFT LATERAL LEG -Combined with other wound No -Current Size (cm) - Length 17 -Current Size (cm) - Width 2.3 WC - Nurse 2 - General Ulcer CM Notes Start: 05/10/18 14:29 Freq: Status: Active Protocol: Activity Type Activity Date Activity User E-Sign Co-Sign Detail Recorded Client Recorded Date Recorded By Document 05/10/18 15:29 [id number] 05/10/18 15:35 Wound Center Nurse 2 [Procedure/Treatment] Musculoskeletal: No Tenderness to Palpation of Joints or Extremities Neurological: Neuro grossly intact Psych/Mental Status: Appropriate, Anxious - Patient very anxious upon arrival. She states she does not like to be at the wound center because it increases her anxiety., Alert and oriented to time, place, person, mood and affect Debridement Note Post-Debridement Measurements/Treatment WC - Nurse 2 - General Ulcer CM Notes Start: 05/10/18 14:29 Freq: Status: Active Protocol: Activity Type Activity Date Activity User E-Sign Co-Sign Detail Recorded Client Recorded Date Recorded By Document 05/10/18 15:29 [id number] 05/10/18 15:35 Wound Center Nurse 2 #6 LEFT LATERAL LEG -Time 15:29 -Correct Patient Yes -Correct Side, Site, Position Yes Wound debrided: Right lower extremity ulcer Laterality: Right Type of Debridement: Excisional debridement Anesthesia Used: 4% Lidocaine Solution Depth: Down to and including healthy tissue, in the subcutaneous layer Percentage of wound debrided: 100 Instrument Used: 7mm curette Tissue Removed: Slough and devitalized tissue Severity: Fat Layer Exposed Amount of bleeding with debridement: Mild Bleeding Controlled with: Pressure Patient tolerated procedure well - Additional Wound Laterality: Left Type of Debridement: Excisional debridement Anesthesia Used: 4% Lidocaine Solution Depth: Down to and including healthy tissue, in the subcutaneous layer Percentage of wound debrided: 100 Instrument Used: 7mm curette Tissue Removed: Slough and devitalized tissue Severity: Fat Layer Exposed Amount of bleeding with debridement: Mild Bleeding Controlled with: Pressure Patient tolerated procedure: Patient tolerated procedure well Assessment/Plan Active Problems (Last Updated 12/07/17 @ 09:05 by Thomas Carrasco MD) Ulcer of right lower extremity with fat layer exposed (Acute) Ulcer of left lower extremity with fat layer exposed (Acute) Chronic acquired lymphedema (Acute) Assessment: 1 Nonhealing ulcer right lateral posterior leg. 2. Nonhealing ulcer left lateral posterior leg. 3. Diabetes mellitus. 4. Chronic venous insufficiency with venous stasis disease. 5. History of MRSA. 6. Obesity. 7. Atrial fibrillation on Coumadin. 8. Status post surgical preparation right posterior leg with incision and drainage and excisional debridement nonhealing infected MRSA ulcer abscess (264 cm2) and surgical preparation right posterior thigh with incision and drainage and excisional debridement nonhealing infected MRSA ulcer abscess 9112 cm2) and surgical preparation left posterior leg with incision and drainage and excisional debridement nonhealing infected MRSA ulcer abscess (216 cm2) and surgical preparation right lateral ankle with incision and drainage and excisional debridement nonhealing infected MRSA ulcer abscess(4 cm2) and surgical preparation left medial ankle with incision and drainage and excisional debridement nonhealing infected MRSA ulcer abscess(4 cm2). All wounds are healed except for the right lateral lower extremity and the left lower lateral extremity. Plan: We will continue Aquacel silver dressing until Santyl is available. When Yeni becomes available we will use daily on both bilateral lower extremity ulcers. The wound center will order Santyl through [facility] specialty pharmacy. Will order vascular studies. Will apply Kristen wraps to bilateral lower extremities. Encouraged to elevate legs for at least 30 minutes 3 times a day. Increase home health to 2 visits a week. Will follow up in wound center 1 week. She was treated for positive all operative cultures 12/08 with Vancomycin, Ceftriaxone and Flagyl. She left the ECF March 18, 2018. Her pre-albumin was 7.9. Encourage nutritional supplementation with protein to help the healing process. Dr. Martinez has discussed in previous visits about possible skin grafting if there is a plateau in healing process. Prior to any grafting procedure, we would need to check it HgA1c which needs to be below 8 for elective procedure. We will also reculture the wounds before any skin grafting would be done. Her last HGBA1c was 11.3 in 12/08. 05/11/18 1704 <Electronically signed by Mariluz MICHELLEC> Date Mariluz Esposito NP-C CC: Signed PROGRESS Observed: 05/11/2018 Status: COMPLETED Source: [place] 1:22 PM [facility] REPOSITORY [facility] ID: [id number] Author: Venkata Jean-Baptiste (Rn) Service: (none) Author Type: Registered Nurse Type: Progress Notes Filed: 05/11/2018 1:42 PM Note Text: PRIMARY CARE COORDINATION FOLLOW-UP NOTE Provider Action/FYI Call from Pt / daughter notified Tramadol filled, instructed not to use with benzo at same time. Pt verbalized understanding. Patient identified by name and date of . YES Spoke to patient Signature Estiven Hastings RN May 11, 2018 PROGRESS Observed: 05/11/2018 Status: COMPLETED Source: [place] 12:15 PM [facility] REPOSIT[facility] ID: [id number] Author: Rajesh Holman Service: (none) Author Type: Physician Type: Progress Notes Filed: 05/11/2018 1:42 PM Note Text: Ok to refill. She is aware not to use with benzo at same time. oarrs checked. PROGRESS Observed: 05/11/2018 Status: COMPLETED Source: [place] 11:50 AM [facility] RE[facility] ID: [id number] Author: Venkata MosesRn) Service: (none) Author Type: Registered Nurse Type: Progress Notes Filed: 05/11/2018 1:42 PM Note Text: PRIMARY CARE COORDINATION FOLLOW-UP NOTE Provider Action/FYI Spk with Pt notified per Dr. Holman She can take up to 3000 mg a day of tyelnol. Pt is requesting more Tramadol sent to [facility] in [place], and noted appreciation, will check with Pharmacy for refill today. Patient identified by name and date of . YES Spoke to patient Signature Estiven Hastings RN May 11, 2018 PROGRESS Observed: 05/11/2018 Status: COMPLETED Source: [place] 11:40 AM [facility] ID: [id number] Author: Rajesh Holman Service: (none) Author Type: Physician Type: Progress Notes Filed: 05/11/2018 1:42 PM Note Text: She can take up to 3000 mg a day of tyelnol. Does she want more tramadol? PROGRESS Observed: 05/11/2018 Status: COMPLETED Source: [place] 11:08 AM [facility] ID: [id number] Author: Venkata Jean-Baptiste (Rn) Service: (none) Author Type: Registered Nurse Type: Progress Notes Filed: 05/11/2018 1:42 PM Note Text: PRIMARY CARE COORDINATION FOLLOW-UP NOTE Provider Action/FYI Call from Pt who notes she is having pain rated at 7/10 after 05/10/18 debridement of bilateral legs at [facility]. Pt states took Tylenol 500 mg two tablets last night and also takes Gabapentin 400 mg 4 x daily without much relief. Pt reports she is out of Tramadol. Pt wants to verify what she can take to relieve her pain ? Patient identified by name and date of . YES Spoke to patient Signature Estiven Hastings RN May 11, 2018 [place] Observed: 05/11/2018 Status: COMPLETED Source: [place] 12:00 AM [facility] REPOSITORY Patient Outreach (FAMPWS) VICKI HERNANDEZ ([id number]) 1960 F Date Time Provider Department 05/11/18 [facility] your visit today, we recorded the following information about you: Estiven Hastings RN 05/11/2018 1:42 PM Signed PRIMARY CARE COORDINATION FOLLOW-UP NOTE Provider Action/FYI Call from Pt who notes she is having pain rated at 7/10 after 05/10/18 debridement of bilateral legs at [facility]. Pt states took Tylenol 500 mg two tablets last night and also takes Gabapentin 400 mg 4 x daily without much relief. Pt reports she is out of Tramadol. Pt wants to verify what she can take to relieve her pain ? Patient identified by name and date of . YES Spoke to patient Signature Estiven Hastings RN May 11, 2018 Rajesh Holman MD 05/11/2018 1:42 PM Signed She can take up to 3000 mg a day of tyelnol. Does she want more tramadol? Estiven Hastings RN 05/11/2018 1:42 PM Signed PRIMARY CARE COORDINATION FOLLOW-UP NOTE Provider Action/FYI Spk with Pt notified per Dr. Holman She can take up to 3000 mg a day of tyelnol. Pt is requesting more Tramadol sent to [facility] in [place], and noted appreciation, will check with Pharmacy for refill today. Patient identified by name and date of . YES Spoke to patient Signature Estiven Hastings RN May 11, 2018 Rajesh Holman MD 05/11/2018 1:42 PM Signed Ok to refill. She is aware not to use with benzo at same time. oarrs checked. Estiven Hastings RN 05/11/2018 1:42 PM Signed PRIMARY CARE COORDINATION FOLLOW-UP NOTE Provider Action/FYI Call from Pt / daughter notified Tramadol filled, instructed not to use with benzo at same time. Pt verbalized understanding. Patient identified by name and date of . 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 Visit: Bed Control Specialist - Patient Initiated [2284] Cmt: S/P Debridement Pain Reason For Visit History Recorded Visit Diagnosis:Multiple open wounds of lower leg, sequela [S81.809S] Order(s):traMADol (ULTRAM) 50 mg tabletTake 1 tablet by mouth every 6 hours as needed for Pain for up to 30 days.Disp: 60 tabletRfl: 0 Prescriptions as of 05/11/2018 Sig: TRAMADOL 50 MG TABLET Take 1 tablet by mouth every * GABAPENTIN 400 MG CAPSULE Take 1 capsule by mouth four * LORAZEPAM 0.5 MG TABLET Take 1 tablet by mouth every * INSULIN LISPRO (U-100) 100 UN* Inject 6 Units subcutaneously* INSULIN GLARGINE (U-100) 100 * Inject 15 Units subcutaneousl* APIXABAN 5 MG TABLET Take 1 tablet by mouth twice * FLUTICASONE 50 MCG/ACTUATION * Use 2 Sprays in each nostril * THERAPEUTIC MULTIVITAMIN TABL* Take 1 tablet by mouth once d* VENLAFAXINE ER 75 MG CAPSULE,* Take 1 capsule by mouth twice* DILTIAZEM SR 120 MG 24 HR CAP Take 1 capsule by mouth once * PEN NEEDLE, DIABETIC 29 GAUGE* Use one needle per dose. 5 p* EXENATIDE 5 MCG/DOSE (250 MCG* INJECT 5 mcg SUBCUTANEOUSLY T* IPRATROPIUM-ALBUTEROL 0.5 MG-* Inhale 3 mL as instructed kris* BUDESONIDE-FORMOTEROL HFA 160* Inhale 2 Puffs as instructed * COMPOUNDED PRESCRIPTION Oxygen for home @ 2L per BIPA* NADOLOL 40 MG TABLET TAKE THREE TABLETS BY MOUTH D* POLYETHYLENE GLYCOL 3350 17 G* Take 1 Packet by mouth as nee* CPAP ACETAMINOPHEN ER 650 MG TABLE* Take 650 mg by mouth every 8 * Problem List As Of Date 05/11/2018 Noted Resolved Diabetes (HCC) [E11.9] INVALID FOR* More... Atrial fibrillation ([facility]) [I48.91] INVALID FOR* Priority: A More... Lymphedema [I89.0] INVALID FOR* Priority: B More... Heart failure, systolic and diastolic, acute on*INVALID FOR*12/31/2014 More... Obesity, morbid, BMI 50 or higher ([facility]) [E66.01]INVALID FOR* More... Hypertension [I10] INVALID FOR* More... HUNTER (obstructive sleep apnea) [G47.33] INVALID FOR* More... Pulmonary HTN ([facility]) [I27.20] INVALID FOR* More... Atrial fibrillation with RVR ([facility]) [I48.91] INVALID FOR*09/23/2016 More... Heart failure, diastolic, acute ([facility]) [I50.31] INVALID FOR* More... Counseling and coordination of care [Z71.89] INVALID FOR*04/12/2015 More... Monoclonal gammopathy [D47.2] INVALID FOR* Empty sella turcica ([facility]) [E23.6] INVALID FOR* More... Uncontrolled type 2 diabetes mellitus without c*INVALID FOR*09/23/2016 Prescriptions ordered this encounter Disp Refills Start End TRAMADOL 50 MG TABLET 60 t* 0 05/11/2018 06/10/2018 Class: Print RX Route: ORAL Sig: Take 1 tablet by mouth every 6 hours as needed for Pain for up to 30 days. Medications Discontinued During This Encounter traMADol (ULTRAM) 50 mg tablet 60 t* 0 04/12/2018 05/11/2018 Class: Print RX Route: ORAL Sig: Take 1 tablet by mouth every 6 hours as needed for Pain for up to 30 days. Disc: Reason for discontinue is not on file. Encounter Status:Closed by ESTIVEN HASTINGS on 05/11/18 PROGRESS Observed: 05/03/2018 Status: COMPLETED Source: [place] 1:28 PM [facility] REPOSITORY HNO ID: [id number] Author: Melvina Emanuel) Sung Service: (none) Author Type: Registered Nurse Type: Progress Notes Filed: 05/03/2018 1:28 PM Note Text: The following prescriptions have been approved and faxed to [facility]: Signed Prescriptions Disp Refills gabapentin (NEURONTIN) 400 mg capsule 120 capsule 3 Sig: Take 1 capsule by mouth four times daily. PEE: No LORazepam (ATIVAN) 0.5 mg tab 60 tablet 0 Sig: Take 1 tablet by mouth every 6 hours as needed (anxiety) for up to 30 days. EDMAR Class: C-IV PEE: No Melvina Almaraz RN PROGRESS Observed: 05/02/2018 Status: COMPLETED Source: [place] 5:29 PM [facility] REPOSITORY HNO ID: [id number] Author: Melvina Emanuel) Sung Service: (none) Author Type: Registered Nurse Type: Progress Notes Filed: 05/02/2018 5:49 PM Note Text: PRIMARY CARE COORDINATION FOLLOW-UP NOTE Provider Action/FYI MEDICATION REFILLS PENDED FOR YOUR APPROVAL Discussed ativan and ultram. PCP instructed to take them at least 3 hours apart, pt verbalized understanding. Discussed weaning off Ultram. Pt will hold off on Ultram prescription now since PCP will increase Gabapentin to 400 mg 4 times daily. Pt feels Gabapentin and ES Tylenol may work better than Ultram. Average BS ranging 146. Highest BS 178 lately Had one low BS a week ago 68 Patient identified by name and date of . YES Spoke to patient Summary: Patient phones requesting refills as follows: Pending Prescriptions Disp Refills GABAPENTIN 400 MG CAPSULE 120 capsule 3 Sig: Take 1 capsule by mouth four times daily. PEE: No LORAZEPAM 0.5 MG TABLET 60 tablet 0 Sig: Take 1 tablet by mouth every 6 hours as needed (anxiety) for up to 30 days. EDMAR Class: C-IV PEE: No Please review and advise. Melvina Almaraz RN [employer] Manager plan for next outreach: Will follow up 3 weeks Signature Melvina Almaraz RN May 02, 2018 BRYONTOUTREACH Observed: 05/02/2018 Status: COMPLETED Source: [place] 12:00 AM [facility] REPOSITORY Patient Outreach (FAMPWS) VICKI HERNANDEZ ([id number]) 1960 F Date Time Provider Department 05/02/18 MELVINA ALMARAZ) AUDREY During your visit today, we recorded the following information about you: Melvina Almaraz RN 05/02/2018 5:49 PM Signed PRIMARY CARE COORDINATION FOLLOW-UP NOTE Provider Action/FYI MEDICATION REFILLS PENDED FOR YOUR APPROVAL Discussed ativan and ultram. PCP instructed to take them at least 3 hours apart, pt verbalized understanding. Discussed weaning off Ultram. Pt will hold off on Ultram prescription now since PCP will increase Gabapentin to 400 mg 4 times daily. Pt feels Gabapentin and ES Tylenol may work better than Ultram. Average BS ranging 146. Highest BS 178 lately Had one low BS a week ago 68 Patient identified by name and date of . YES Spoke to patient Summary: Patient phones requesting refills as follows: Pending Prescriptions Disp Refills GABAPENTIN 400 MG CAPSULE 120 capsule 3 Sig: Take 1 capsule by mouth four times daily. PEE: No LORAZEPAM 0.5 MG TABLET 60 tablet 0 Sig: Take 1 tablet by mouth every 6 hours as needed (anxiety) for up to 30 days. EDMAR Class: C-IV PEE: No Please review and advise. Melvina Almaraz RN [employer] Manager plan for next outreach: Will follow up 3 weeks Signature Melvina Almaraz RN May 02, 2018 Melvina Almaraz RN 05/03/2018 1:28 PM Signed The following prescriptions have been approved and faxed to [facility]: Signed Prescriptions Disp Refills gabapentin (NEURONTIN) 400 mg capsule 120 capsule 3 Sig: Take 1 capsule by mouth four times daily. PEE: No LORazepam (ATIVAN) 0.5 mg tab 60 tablet 0 Sig: Take 1 tablet by mouth every 6 hours as needed (anxiety) for up to 30 days. EDMAR Class: C-IV PEE: No Melvina Almaraz RN Allergies As of Date: 05/02/2018 Noted Allergy Reaction CODEINE 11/19/2010 14 - Other: See Comments Comments: Itching, vomitting LATEX 11/19/2010 14 - Other: See Comments Comments: Itching,hives,dyspnea PHENOBARBITAL 11/19/2010 14 - Other: See Comments Comments: Nausea, itching TALWIN (PENTAZOCINE LACTATE) 11/19/2010 1 - Mental Status Change Comments: Hallucinations TREE NUT 02/07/2015 10 - Anaphylaxis Date Reviewed: 06/08/2017 Reviewed by: Karena Shaikh Cadd Drafter - Fully Assessed Reason for Visit: Bed Control Specialist Chronic Care [[id number]] Visit Diagnoses:Lymphedema [I89.0] Anxiety [F41.9] Order(s):gabapentin (NEURONTIN) 400 mg capsuleTake 1 capsule by mouth four times daily.Disp: 120 capsuleRfl: 3 LORazepam (ATIVAN) 0.5 mg tabTake 1 tablet by mouth every 6 hours as needed (anxiety) for up to 30 days.Disp: 60 tabletRfl: 0 Prescriptions as of 05/02/2018 Sig: GABAPENTIN 400 MG CAPSULE Take 1 capsule by mouth four * LORAZEPAM 0.5 MG TABLET Take 1 tablet by mouth every * TRAMADOL 50 MG TABLET Take 1 tablet by mouth every * INSULIN LISPRO (U-100) 100 UN* Inject 6 Units subcutaneously* INSULIN GLARGINE (U-100) 100 * Inject 15 Units subcutaneousl* APIXABAN 5 MG TABLET Take 1 tablet by mouth twice * FLUTICASONE 50 MCG/ACTUATION * Use 2 Sprays in each nostril * THERAPEUTIC MULTIVITAMIN TABL* Take 1 tablet by mouth once d* VENLAFAXINE ER 75 MG CAPSULE,* Take 1 capsule by mouth twice* DILTIAZEM SR 120 MG 24 HR CAP Take 1 capsule by mouth once * PEN NEEDLE, DIABETIC 29 GAUGE* Use one needle per dose. 5 p* EXENATIDE 5 MCG/DOSE (250 MCG* INJECT 5 mcg SUBCUTANEOUSLY T* IPRATROPIUM-ALBUTEROL 0.5 MG-* Inhale 3 mL as instructed kris* BUDESONIDE-FORMOTEROL HFA 160* Inhale 2 Puffs as instructed * COMPOUNDED PRESCRIPTION Oxygen for home @ 2L per BIPA* NADOLOL 40 MG TABLET TAKE THREE TABLETS BY MOUTH D* POLYETHYLENE GLYCOL 3350 17 G* Take 1 Packet by mouth as nee* CPAP ACETAMINOPHEN ER 650 MG TABLE* Take 650 mg by mouth every 8 * Problem List As Of Date 05/02/2018 Noted Resolved Diabetes (HCC) [E11.9] INVALID FOR* More... Atrial fibrillation (HCC) [I48.91] INVALID FOR* Priority: A More... Lymphedema [I89.0] INVALID FOR* Priority: B More... Heart failure, systolic and diastolic, acute on*INVALID FOR*12/31/2014 More... Obesity, morbid, BMI 50 or higher (HCC) [E66.01]INVALID FOR* More... Hypertension [I10] INVALID FOR* More... HUNTER (obstructive sleep apnea) [G47.33] INVALID FOR* More... Pulmonary HTN (HCC) [I27.20] INVALID FOR* More... Atrial fibrillation with RVR (HCC) [I48.91] INVALID FOR*09/23/2016 More... Heart failure, diastolic, acute (HCC) [I50.31] INVALID FOR* More... Counseling and coordination of care [Z71.89] INVALID FOR*04/12/2015 More... Monoclonal gammopathy [D47.2] INVALID FOR* Empty sella turcica (HCC) [E23.6] INVALID FOR* More... Uncontrolled type 2 diabetes mellitus without c*INVALID FOR*09/23/2016 Prescriptions ordered this encounter Disp Refills Start End GABAPENTIN 400 MG CAPSULE 120 * 3 05/02/2018 05/02/2019 Route: ORAL Sig: Take 1 capsule by mouth four times daily. LORAZEPAM 0.5 MG TABLET 60 t* 0 05/02/2018 06/01/2018 Class: Print RX Route: ORAL Sig: Take 1 tablet by mouth every 6 hours as needed (anxiety) for up to 30 days. Medications Discontinued During This Encounter gabapentin (NEURONTIN) 400 mg capsule 90 c* 2 04/11/2018 05/02/2018 Route: ORAL Sig: Take 1 capsule by mouth three times daily for 90 days. Disc: Reason for discontinue is not on file. LORazepam (ATIVAN) 0.5 mg tab 60 t* 0 04/14/2018 05/02/2018 Class: Print RX Route: ORAL Sig: Take 1 tablet by mouth every 6 hours as needed (anxiety) for up to 30 days. Disc: Reason for discontinue is not on file. Encounter Status:Closed by MELVINA ALMARAZ on 05/03/18 PROGRESS Observed: 04/19/2018 Status: COMPLETED Source: [place] 3:20 PM [facility] REPOSITORY HNO ID: [id number] Author: Venkata Jean-Baptiste (Rn) Service: (none) Author Type: Registered Nurse Type: Progress Notes Filed: 04/19/2018 3:23 PM Note Text: PRIMARY CARE COORDINATION FOLLOW-UP NOTE Provider Action/FYI Call from Pt who noted the [employer] Extra 10x12 cm did come in the mail. No further needs at this time. Patient identified by name and date of . YES Signature Estiven Hastings RN April 19, 2018 PROGRESS Observed: 04/19/2018 Status: COMPLETED Source: [place] 1:15 PM [facility] REPOSITORY HNO ID: [id number] Author: Venkata Jean-Baptiste (Rn) Service: (none) Author Type: Registered Nurse Type: Progress Notes Filed: 04/19/2018 3:23 PM Note Text: PRIMARY CARE COORDINATION FOLLOW-UP NOTE Provider Action/FYI Call from Pt who reports she is out of Aquacel for HHC, Pt will call Dr. Martinez's office for a refill, and will call Pcp if unable to reach [facility]. Patient identified by name and date of . YES Spoke to patient Signature Estiven Hastings RN April 19, 2018 CNPTOUTREACH Observed: 04/19/2018 Status: COMPLETED Source: [place] 12:00 AM [facility] REPOSITORY Patient Outreach (FAMPWS) VICKI HERNANDEZ ([id number]) 1960 F Date Time Provider Department 04/19/18 VENKATA JEAN-BAPTISTE (RN) FAMPWS During your visit today, we recorded the following information about you: Estiven Hastings RN 04/19/2018 3:23 PM Signed PRIMARY CARE COORDINATION FOLLOW-UP NOTE Provider Action/FYI Call from Pt who reports she is out of Aquacel for HHC, Pt will call Dr. Martinez's office for a refill, and will call Pcp if unable to reach Dr[facility]. Patient identified by name and date of . YES Spoke to patient Signature Estiven Hastings RN April 19, 2018 Estiven Hastings RN 04/19/2018 3:23 PM Signed PRIMARY CARE COORDINATION FOLLOW-UP NOTE Provider Action/FYI Call from Pt who noted the Aquacel AG Extra 10x12 cm did come in the mail. No further needs at this time. Patient identified by name and date of . YES Signature Estiven Hastings RN April 19, 2018 Allergies As of Date: 04/19/2018 Noted Allergy Reaction CODEINE 11/19/2010 14 - Other: See Comments Comments: Itching, vomitting LATEX 11/19/2010 14 - Other: See Comments Comments: Itching,hives,dyspnea PHENOBARBITAL 11/19/2010 14 - Other: See Comments Comments: Nausea, itching TALWIN (PENTAZOCINE LACTATE) 11/19/2010 1 - Mental Status Change Comments: Hallucinations TREE NUT 02/07/2015 10 - Anaphylaxis Date Reviewed: 06/08/2017 Reviewed by: Karena Shaikh Cadd Drafter - Fully Assessed Reason for Visit: Bed Control Specialist Chronic Care [[id number]] Cmt: Aquacel Prescriptions as of 04/19/2018 Sig: LORAZEPAM 0.5 MG TABLET Take 1 tablet by mouth every * TRAMADOL 50 MG TABLET Take 1 tablet by mouth every * GABAPENTIN 400 MG CAPSULE Take 1 capsule by mouth three* INSULIN LISPRO (U-100) 100 UN* Inject 6 Units subcutaneously* INSULIN GLARGINE (U-100) 100 * Inject 15 Units subcutaneousl* APIXABAN 5 MG TABLET Take 1 tablet by mouth twice * FLUTICASONE 50 MCG/ACTUATION * Use 2 Sprays in each nostril * THERAPEUTIC MULTIVITAMIN TABL* Take 1 tablet by mouth once d* VENLAFAXINE ER 75 MG CAPSULE,* Take 1 capsule by mouth twice* DILTIAZEM SR 120 MG 24 HR CAP Take 1 capsule by mouth once * PEN NEEDLE, DIABETIC 29 GAUGE* Use one needle per dose. 5 p* EXENATIDE 5 MCG/DOSE (250 MCG* INJECT 5 mcg SUBCUTANEOUSLY T* IPRATROPIUM-ALBUTEROL 0.5 MG-* Inhale 3 mL as instructed kris* BUDESONIDE-FORMOTEROL HFA 160* Inhale 2 Puffs as instructed * COMPOUNDED PRESCRIPTION Oxygen for home @ 2L per BIPA* NADOLOL 40 MG TABLET TAKE THREE TABLETS BY MOUTH D* POLYETHYLENE GLYCOL 3350 17 G* Take 1 Packet by mouth as nee* CPAP ACETAMINOPHEN ER 650 MG TABLE* Take 650 mg by mouth every 8 * Problem List As Of Date 04/19/2018 Noted Resolved Diabetes (HCC) [E11.9] INVALID FOR* More... Atrial fibrillation (HCC) [I48.91] INVALID FOR* Priority: A More... Lymphedema [I89.0] INVALID FOR* Priority: B More... Heart failure, systolic and diastolic, acute on*INVALID FOR*12/31/2014 More... Obesity, morbid, BMI 50 or higher (HCC) [E66.01]INVALID FOR* More... Hypertension [I10] INVALID FOR* More... HUNTER (obstructive sleep apnea) [G47.33] INVALID FOR* More... Pulmonary HTN (HCC) [I27.20] INVALID FOR* More... Atrial fibrillation with RVR (HCC) [I48.91] INVALID FOR*09/23/2016 More... Heart failure, diastolic, acute ([facility]) [I50.31] INVALID FOR* More... Counseling and coordination of care [Z71.89] INVALID FOR*04/12/2015 More... Monoclonal gammopathy [D47.2] INVALID FOR* Empty sella turcica (HCC) [E23.6] INVALID FOR* More... Uncontrolled type 2 diabetes mellitus without c*INVALID FOR*09/23/2016 Encounter Status:Closed by ESTIVEN HASTINGS on 04/19/18 PROGRESS Observed: 04/18/2018 Status: COMPLETED Source: [place] 9:04 AM [facility] REPOSITORY O ID: [id number] Author: Lizzie Springer Cma Service: (none) Author Type: (none) Type: Progress Notes Filed: 04/18/2018 9:06 AM Note Text: I spoke with Vicki and she states she's not avoiding coming in for an appointment she's just having trouble with getting in and out of vehicle for transportation. She states she's doing well after being home from the long-term. heart is good, sugars are better, ambulating better, but still having difficulty getting in and out of vehicle. She states she will be in for an open access appointment as soon as she feels able and will get labs done. PROGRESS Observed: 04/18/2018 Status: COMPLETED Source: [place] 8:57 AM [facility] HNO ID: [id number] Author: Lizzie Springer [facility] Service: (none) Author Type: (none) Type: Progress Notes Filed: 04/18/2018 9:06 AM Note Text: Left message for patient to return call #[phone] PROGRESS Observed: 04/15/2018 Status: COMPLETED Source: [place] 3:00 PM [facility] REPOS[facility] HNO ID: [id number] Author: Lizzie Springer [facility] Service: (none) Author Type: (none) Type: Progress Notes Filed: 04/18/2018 9:06 AM Note Text: PHMA CARE GAP REGISTRY DOCUMENTATION (OUTSIDE TEAMLET) Provider Action/FYI: Please file labs PSR Action/FYI: R/s follow up appointment with labs prior Patient identified by name and date of . Last BP/Labs: Blood Pressure: Last 3 Encounter BP Readings: Date: BP: 06/08/2017 138/78 03/05/2017 130/78 01/27/2017 116/62 Lipids: Cholesterol, Total (mg/dL) Date Value 06/03/2017 171 09/23/2016 154 HDL Cholesterol (mg/dL) Date Value 06/03/2017 35 09/23/2016 28 LDL Cholesterol (mg/dL) Date Value 06/03/2017 114 09/23/2016 90 Triglyceride (mg/dL) Date Value 06/03/2017 112 09/23/2016 180 HGB A1C: Lab Results Component Value Date HBA1C 10.1 06/03/2017 HBA1C 6.8 03/01/2017 HBA1C 9.2 12/10/2016 TSH: TSH (uU/mL) Date Value 02/20/2016 2.150 ) ? Patient has the following care gap registry disease diagnosis:DM ? HTN ? Patient has the following open care gaps: Health Maintenance Due: BLOOD PRESSURE CONTROLLED due on 1976 DTAP,TDAP,TD(1 - Tdap) due on 1977 ADULT PREVNAR-13 due on 1977 MAMMOGRAM due on 1998 - ordered FECAL OCCULT BLOOD due on 2008 URINE ALBUMIN:CREATININE RATIO due on 06/16/2017 - order pending HBA1C due on 09/03/2017 - order pending DILATED RETINAL EXAM due on 11/18/2017 DIABETIC FOOT EXAM due on 12/12/2017 INFLUENZA(1) due on 04/23/2018 ? Last office visit: 06/08/2017 ? Future office visit:Follow-up DM w/labs prior with Provider pcp or tailing hand/pa Lizzie Springer Cma CNPTOUTREACH Observed: 04/15/2018 Status: COMPLETED Source: [place] 12:00 AM [facility] REPOS[facility] Patient Outreach (FAMPWS) VICKI HERNANDEZ ([id number]) 1960 F Date Time Provider Department 04/15/18 LIZZIE SPRINGER (ASHLEY) FAMPWS During your visit today, we recorded the following information about you: Lizzie Springer Cma 04/18/2018 9:06 AM Signed [facility] CARE GAP REGISTRY DOCUMENTATION (OUTSIDE TEAMLET) Provider Action/FYI: Please file labs PSR Action/FYI: R/s follow up appointment with labs prior Patient identified by name and date of . Last BP/Labs: Blood Pressure: Last 3 Encounter BP Readings: Date: BP: 06/08/2017 138/78 03/05/2017 130/78 01/27/2017 116/62 Lipids: Cholesterol, Total (mg/dL) Date Value 06/03/2017 171 09/23/2016 154 HDL Cholesterol (mg/dL) Date Value 06/03/2017 35 09/23/2016 28 LDL Cholesterol (mg/dL) Date Value 06/03/2017 114 09/23/2016 90 Triglyceride (mg/dL) Date Value 06/03/2017 112 09/23/2016 180 HGB A1C: Lab Results Component Value Date HBA1C 10.1 06/03/2017 HBA1C 6.8 03/01/2017 HBA1C 9.2 12/10/2016 TSH: TSH (uU/mL) Date Value 02/20/2016 2.150 ) ? Patient has the following care gap registry disease diagnosis:DM ? HTN ? Patient has the following open care gaps: Health Maintenance Due: BLOOD PRESSURE CONTROLLED due on 1976 DTAP,TDAP,TD(1 - Tdap) due on 1977 ADULT PREVNAR-13 due on 1977 MAMMOGRAM due on 1998 - ordered FECAL OCCULT BLOOD due on 2008 URINE ALBUMIN:CREATININE RATIO due on 06/16/2017 - order pending HBA1C due on 09/03/2017 - order pending DILATED RETINAL EXAM due on 11/18/2017 DIABETIC FOOT EXAM due on 12/12/2017 INFLUENZA(1) due on 04/23/2018 ? Last office visit: 06/08/2017 ? Future office visit:Follow-up DM w/labs prior with Provider pcp or tailing hand/pa Lizzie Springer [facility] Lizzie Springer [facility] 04/18/2018 9:06 AM Signed Left message for patient to return call #[phone] Lizzie Springer [facility] 04/18/2018 9:06 AM Signed I spoke with Vicki and she states she's not avoiding coming in for an appointment she's just having trouble with getting in and out of vehicle for transportation. She states she's doing well after being home from the long-term. heart is good, sugars are better, ambulating better, but still having difficulty getting in and out of vehicle. She states she will be in for an open access appointment as soon as she feels able and will get labs done. Allergies As of Date: 04/15/2018 Noted Allergy Reaction CODEINE 11/19/2010 14 - Other: See Comments Comments: Itching, vomitting LATEX 11/19/2010 14 - Other: See Comments Comments: Itching,hives,dyspnea PHENOBARBITAL 11/19/2010 14 - Other: See Comments Comments: Nausea, itching TALWIN (PENTAZOCINE LACTATE) 11/19/2010 1 - Mental Status Change Comments: Hallucinations TREE NUT 02/07/2015 10 - Anaphylaxis Date Reviewed: 06/08/2017 Reviewed by: Karena Shaikh Cadd Drafter - Fully Assessed Reason for Visit: PHMA/Care Gap Outreach [3605] Primary Visit Diagnosis:Diabetes mellitus due to underlying condition with hyperosmolarity without coma, without long-term current use of insulin ([facility]) [E08.00] Order(s):HGB A1C [[id number]] Order #: [id number] FUTURE LIPID PANEL BASIC [SQLIPB] Order #: [id number] FUTURE ALBUMIN/CREAT RATIO RND UR [SQUACR] Order #: [id number] FUTURE Prescriptions as of 04/15/2018 Sig: LORAZEPAM 0.5 MG TABLET Take 1 tablet by mouth every * TRAMADOL 50 MG TABLET Take 1 tablet by mouth every * GABAPENTIN 400 MG CAPSULE Take 1 capsule by mouth three* INSULIN LISPRO (U-100) 100 UN* Inject 6 Units subcutaneously* INSULIN GLARGINE (U-100) 100 * Inject 15 Units subcutaneousl* APIXABAN 5 MG TABLET Take 1 tablet by mouth twice * FLUTICASONE 50 MCG/ACTUATION * Use 2 Sprays in each nostril * THERAPEUTIC MULTIVITAMIN TABL* Take 1 tablet by mouth once d* VENLAFAXINE ER 75 MG CAPSULE,* Take 1 capsule by mouth twice* DILTIAZEM SR 120 MG 24 HR CAP Take 1 capsule by mouth once * PEN NEEDLE, DIABETIC 29 GAUGE* Use one needle per dose. 5 p* EXENATIDE 5 MCG/DOSE (250 MCG* INJECT 5 mcg SUBCUTANEOUSLY T* IPRATROPIUM-ALBUTEROL 0.5 MG-* Inhale 3 mL as instructed kris* BUDESONIDE-FORMOTEROL HFA 160* Inhale 2 Puffs as instructed * COMPOUNDED PRESCRIPTION Oxygen for home @ 2L per BIPA* NADOLOL 40 MG TABLET TAKE THREE TABLETS BY MOUTH D* POLYETHYLENE GLYCOL 3350 17 G* Take 1 Packet by mouth as nee* CPAP ACETAMINOPHEN ER 650 MG TABLE* Take 650 mg by mouth every 8 * Problem List As Of Date 04/15/2018 Noted Resolved Diabetes (HCC) [E11.9] INVALID FOR* More... Atrial fibrillation (HCC) [I48.91] INVALID FOR* Priority: A More... Lymphedema [I89.0] INVALID FOR* Priority: B More... Heart failure, systolic and diastolic, acute on*INVALID FOR*12/31/2014 More... Obesity, morbid, BMI 50 or higher (HCC) [E66.01]INVALID FOR* More... Hypertension [I10] INVALID FOR* More... HUNTER (obstructive sleep apnea) [G47.33] INVALID FOR* More... Pulmonary HTN (HCC) [I27.20] INVALID FOR* More... Atrial fibrillation with RVR (HCC) [I48.91] INVALID FOR*09/23/2016 More... Heart failure, diastolic, acute (HCC) [I50.31] INVALID FOR* More... Counseling and coordination of care [Z71.89] INVALID FOR*04/12/2015 More... Monoclonal gammopathy [D47.2] INVALID FOR* Empty sella turcica (HCC) [E23.6] INVALID FOR* More... Uncontrolled type 2 diabetes mellitus without c*INVALID FOR*09/23/2016 Encounter Status:Closed by LIZZIE SPRINGER CMA on 04/18/18 PROGRESS Observed: 04/14/2018 Status: COMPLETED Source: [place] 3:55 PM [facility] RE[facility]IT[facility] HNO ID: [id number] Author: Melvina Emanuel) Sung Service: (none) Author Type: Registered Nurse Type: Progress Notes Filed: 04/14/2018 3:55 PM Note Text: PRIMARY CARE COORDINATION QUICK NOTE Provider Action/FYI TC to pt informing Ativan has been refilled Patient identified by name and date DOB. Melvina Almaraz RN April 14, 2018 3:55 PM PROGRESS Observed: 04/13/2018 Status: COMPLETED Source: [place] 3:24 PM [facility] RE[facility] HNO ID: [id number] Author: Melvina Emanuel) Sung Service: (none) Author Type: Registered Nurse Type: Progress Notes Filed: 04/14/2018 11:05 AM Note Text: PRIMARY CARE COORDINATION FOLLOW-UP NOTE Provider Action/FYI Please note bolded notes below Please refill Lorazepam Pt states she will come in for appt as soon as she can get in and out of the van with minimal assist. Patient has multiple care gaps when she comes in for appt. Patient identified by name and date of . YES Spoke to patient Summary: Pt states she ambulated down 3 steps and was able to get into her van with the assist of PT. States it took her 15 minutes to be able to get into the van. Reinforced the improvement patient is making with home rehab. States she simulated getting into and out of the shower. Pt unable to take a shower until approved by Dr. Martinez. States her LE wounds are draining large amount of serous drainage, no odor. States they intermittently drain lg amt then will decrease amount for a week or so. [employer] Manager plan for next outreach: Will follow up 3 weeks Signature Melvina Almaraz RN April 13, 2018 [facility] Observed: 04/13/2018 Status: COMPLETED Source: [place] 12:00 AM [facility] RE[facility] Patient Outreach (FAMPWS) VICKI HERNANDEZ ([id number]) 1960 F Date Time Provider Department 04/13/18 MELVINA ALMARAZ (RN) FAMPWS During your visit today, we recorded the following information about you: Melvina Almaraz RN 04/14/2018 11:05 AM Addendum PRIMARY CARE COORDINATION FOLLOW-UP NOTE Provider Action/FYI Please note bolded notes below Please refill Lorazepam Pt states she will come in for appt as soon as she can get in and out of the van with minimal assist. Patient has multiple care gaps when she comes in for appt. Patient identified by name and date of . YES Spoke to patient Summary: Pt states she ambulated down 3 steps and was able to get into her van with the assist of PT. States it took her 15 minutes to be able to get into the van. Reinforced the improvement patient is making with home rehab. States she simulated getting into and out of the shower. Pt unable to take a shower until approved by Dr. Martinez. States her LE wounds are draining large amount of serous drainage, no odor. States they intermittently drain lg amt then will decrease amount for a week or so. Fish [employer] Club Manager plan for next outreach: Will follow up 3 weeks Signature Melvina Almaraz RN April 13, 2018 Melvina Almaraz RN 04/14/2018 3:55 PM Signed PRIMARY CARE COORDINATION QUICK NOTE Provider Action/FYI TC to pt informing Ativan has been refilled Patient identified by name and date . Melvina Almaraz RN April 14, 2018 3:55 PM Allergies As of Date: 04/13/2018 Noted Allergy Reaction CODEINE 11/19/2010 14 - Other: See Comments Comments: Itching, vomitting LATEX 11/19/2010 14 - Other: See Comments Comments: Itching,hives,dyspnea PHENOBARBITAL 11/19/2010 14 - Other: See Comments Comments: Nausea, itching TALWIN (PENTAZOCINE LACTATE) 11/19/2010 1 - Mental Status Change Comments: Hallucinations TREE NUT 02/07/2015 10 - Anaphylaxis Date Reviewed: 06/08/2017 Reviewed by: Karena Shaikh Cadd Drafter - Fully Assessed Reason for Visit: Bed Control Specialist Chronic Care [9449] Visit Diagnosis:Anxiety [F41.9] Order(s):LORazepam (ATIVAN) 0.5 mg tabTake 1 tablet by mouth every 6 hours as needed (anxiety) for up to 30 days.Disp: 60 tabletRfl: 0 Prescriptions as of 04/13/2018 Sig: LORAZEPAM 0.5 MG TABLET Take 1 tablet by mouth every * TRAMADOL 50 MG TABLET Take 1 tablet by mouth every * GABAPENTIN 400 MG CAPSULE Take 1 capsule by mouth three* INSULIN LISPRO (U-100) 100 UN* Inject 6 Units subcutaneously* INSULIN GLARGINE (U-100) 100 * Inject 15 Units subcutaneousl* APIXABAN 5 MG TABLET Take 1 tablet by mouth twice * FLUTICASONE 50 MCG/ACTUATION * Use 2 Sprays in each nostril * THERAPEUTIC MULTIVITAMIN TABL* Take 1 tablet by mouth once d* VENLAFAXINE ER 75 MG CAPSULE,* Take 1 capsule by mouth twice* DILTIAZEM SR 120 MG 24 HR CAP Take 1 capsule by mouth once * PEN NEEDLE, DIABETIC 29 GAUGE* Use one needle per dose. 5 p* EXENATIDE 5 MCG/DOSE (250 MCG* INJECT 5 mcg SUBCUTANEOUSLY T* IPRATROPIUM-ALBUTEROL 0.5 MG-* Inhale 3 mL as instructed kris* BUDESONIDE-FORMOTEROL HFA 160* Inhale 2 Puffs as instructed * COMPOUNDED PRESCRIPTION Oxygen for home @ 2L per BIPA* NADOLOL 40 MG TABLET TAKE THREE TABLETS BY MOUTH D* POLYETHYLENE GLYCOL 3350 17 G* Take 1 Packet by mouth as nee* CPAP ACETAMINOPHEN ER 650 MG TABLE* Take 650 mg by mouth every 8 * Problem List As Of Date 04/13/2018 Noted Resolved Diabetes ([facility]) [E11.9] INVALID FOR* More... Atrial fibrillation ([facility]) [I48.91] INVALID FOR* Priority: A More... Lymphedema [I89.0] INVALID FOR* Priority: B More... Heart failure, systolic and diastolic, acute on*INVALID FOR*12/31/2014 More... Obesity, morbid, BMI 50 or higher ([facility]) [E66.01]INVALID FOR* More... Hypertension [I10] INVALID FOR* More... HUNTER (obstructive sleep apnea) [G47.33] INVALID FOR* More... Pulmonary HTN ([facility]) [I27.20] INVALID FOR* More... Atrial fibrillation with RVR ([facility]) [I48.91] INVALID FOR*09/23/2016 More... Heart failure, diastolic, acute ([facility]) [I50.31] INVALID FOR* More... Counseling and coordination of care [Z71.89] INVALID FOR*04/12/2015 More... Monoclonal gammopathy [D47.2] INVALID FOR* Empty sella turcica ([facility]) [E23.6] INVALID FOR* More... Uncontrolled type 2 diabetes mellitus without c*INVALID FOR*09/23/2016 Prescriptions ordered this encounter Disp Refills Start End LORAZEPAM 0.5 MG TABLET 60 t* 0 04/14/2018 05/14/2018 Class: Print RX Route: ORAL Sig: Take 1 tablet by mouth every 6 hours as needed (anxiety) for up to 30 days. Medications Discontinued During This Encounter LORazepam (ATIVAN) 0.5 mg tab 03/22/2018 04/14/2018 Class: Med Update Route: ORAL Sig: Take 1 tablet by mouth every 6 hours as needed for up to 30 days. Disc: Reason for discontinue is not on file. Encounter Status:Closed by MELVINA ALMARAZ on 04/14/18 PROGRESS Observed: 04/12/2018 Status: COMPLETED Source: [place] 2:54 PM [facility] RE[facility]ITORY HNO ID: [id number] Author: Melvina Emanuel) Sung Service: (none) Author Type: Registered Nurse Type: Progress Notes Filed: 04/12/2018 2:56 PM Note Text: TC to patient, informed pt PCP wrote order for Tramadol 1 tablet q6h PRN pain. She is not to take them with the oxycodone, verbalized understanding and stated again the oxycodone are all gone. Melvina Almaraz RN April 12, 2018 2:56 PM PROGRESS Observed: 04/12/2018 Status: COMPLETED Source: [place] 1:33 PM [facility] RE[facility] HNO ID: [id number] Author: Rajesh Holman Service: (none) Author Type: Physician Type: Progress Notes Filed: 04/12/2018 2:58 PM Note Text: Written, oarrs done PROGRESS Observed: 04/12/2018 Status: COMPLETED Source: [place] 11:47 AM [facility] REPOSIT[facility] HNO ID: [id number] Author: Melvina Emanuel) Sung Service: (none) Author Type: Registered Nurse Type: Progress Notes Filed: 04/12/2018 1:13 PM Note Text: PRIMARY CARE COORDINATION FOLLOW-UP NOTE Provider Action/FYI Out of oxycodone Taking >3000 mg Tyleol daily without relief of wound pain. Can she have script for Tramadol for wound pain? Patient identified by name and date of . YES Spoke to patient Summary: Pt thinks the increase in gabapentin will help her neuropathy pain more but she needs something for wound pain. She is currently taking over 3000 mg of tylenol daily and it isn't relieving the pain. Pt is out of oxycodone [employer] Manager plan for next outreach: Will follow up one week Signature Melvina Almaraz RN April 12, 2018 PROGRESS Observed: 04/11/2018 Status: COMPLETED Source: [place] 6:19 PM [facility] REPOSITORY HNO ID: [id number] Author: Rajesh Holman Service: (none) Author Type: Physician Type: Progress Notes Filed: 04/12/2018 2:58 PM Note Text: Ok to increase edson to tid. How often is she taking oxycodone. Is she taking regularly. They are very different meds and actually oppose each other so would have to back off percocet if taking round the clock PROGRESS Observed: 04/11/2018 Status: COMPLETED Source: [place] 2:50 PM [facility] REPOSITORY HNO ID: [id number] Author: Edie Chavez Service: (none) Author Type: Registered Nurse Type: Progress Notes Filed: 04/12/2018 2:58 PM Note Text: PRIMARY CARE COORDINATION FOLLOW-UP NOTE Provider Action/FYI: Wants to get off Oxycodone and try Tramadol. States worked previously. Please increase dose of Gabapentin. Patient identified by name and date of . YES Spoke to patient Summary: Vicki Hernandez is a 57 year old female who reports glucose readings as noted. Meal # 1 = Breakfast or first meal of day, Meal # 2 = Lunch, # 3 = Evening meal DATE 04/06 04/07 04/08 04/09 04/10 04/11 Fasting 144 180 165 193 171 181 Post Meal #1 Before Meal 170 Post Meal # 2 Before Meal 200 182 186 165 Post Meal # 3 Bedtime 162 Other Any low blood sugars during this period of reporting No Patient's diabetes medications as follows: Concerns: Would like to try taking Tramadol instead of Oxy. Gabapentin helping, but not quite enough. Can she increase a little more? TID? [employer] Manager plan for next outreach: Will follow up with MD lozoya. Nithya Chavez RN Ambulatory Bed Control Specialist Internal Medicine She[facility] April 11, 2018 BRYONTOUTREACH Observed: 04/11/2018 Status: COMPLETED Source: [place] 12:00 AM [facility] REPOSITORY Patient Outreach (INTMWS) VICKI HERNANDEZ ([id number]) 1960 F Date Time Provider Department 04/11/18 EDIE GAVIRIA During your visit today, we recorded the following information about you: Edie Medina RN 04/12/2018 2:58 PM Signed PRIMARY CARE COORDINATION FOLLOW-UP NOTE Provider Action/FYI: Wants to get off Oxycodone and try Tramadol. States worked previously. Please increase dose of Gabapentin. Patient identified by name and date of . YES Spoke to patient Summary: Vicki Hernandez is a 57 year old female who reports glucose readings as noted. Meal # 1 = Breakfast or first meal of day, Meal # 2 = Lunch, # 3 = Evening meal DATE 04/06 04/07 04/08 04/09 04/10 04/11 Fasting 144 180 165 193 171 181 Post Meal #1 Before Meal 170 Post Meal # 2 Before Meal 200 182 186 165 Post Meal # 3 Bedtime 162 Other Any low blood sugars during this period of reporting No Patient's diabetes medications as follows: Concerns: Would like to try taking Tramadol instead of Oxy. Gabapentin helping, but not quite enough. Can she increase a little more? TID? [employer] Club Manager plan for next outreach: Will follow up with MD answer. Signature Edie Chavez RN Ambulatory Bed Control Specialist Internal Medicine [facility] April 11, 2018 Rajesh Holman MD 04/12/2018 2:58 PM Signed Ok to increase edson to tid. How often is she taking oxycodone. Is she taking regularly. They are very different meds and actually oppose each other so would have to back off percocet if taking round the clock Melvina Almaraz RN 04/12/2018 1:13 PM Signed PRIMARY CARE COORDINATION FOLLOW-UP NOTE Provider Action/FYI Out of oxycodone Taking >3000 mg Tyleol daily without relief of wound pain. Can she have script for Tramadol for wound pain? Patient identified by name and date of . YES Spoke to patient Summary: Pt thinks the increase in gabapentin will help her neuropathy pain more but she needs something for wound pain. She is currently taking over 3000 mg of tylenol daily and it isn't relieving the pain. Pt is out of oxycodone [employer] Club Manager plan for next outreach: Will follow up one week Signature Melvina Almaraz RN April 12, 2018 Rajesh Holman MD 04/12/2018 2:58 PM Signed Written, oarrs done Melvina Almaraz RN 04/12/2018 2:56 PM Signed TC to patient, informed pt PCP wrote order for Tramadol 1 tablet q6h PRN pain. She is not to take them with the oxycodone, verbalized understanding and stated again the oxycodone are all gone. Melvina Almaraz RN April 12, 2018 2:56 PM Allergies As of Date: 04/11/2018 Noted Allergy Reaction CODEINE 11/19/2010 14 - Other: See Comments Comments: Itching, vomitting LATEX 11/19/2010 14 - Other: See Comments Comments: Itching,hives,dyspnea PHENOBARBITAL 11/19/2010 14 - Other: See Comments Comments: Nausea, itching TALWIN (PENTAZOCINE LACTATE) 11/19/2010 1 - Mental Status Change Comments: Hallucinations TREE NUT 02/07/2015 10 - Anaphylaxis Date Reviewed: 06/08/2017 Reviewed by: Karena Shaikh Cadd Drafter - Fully Assessed Reason for Visit: Bed Control Specialist Chronic Care [[id number]] Primary Visit Diagnosis:Multiple open wounds of lower leg, sequela [S81.809S] Other Visit Diagnosis:Lymphedema [I89.0] Order(s):gabapentin (NEURONTIN) 400 mg capsuleTake 1 capsule by mouth three times daily for 90 days.Disp: 90 capsuleRfl: 2 traMADol (ULTRAM) 50 mg tabletTake 1 tablet by mouth every 6 hours as needed for Pain for up to 30 days.Disp: 60 tabletRfl: 0 Prescriptions as of 04/11/2018 Sig: TRAMADOL 50 MG TABLET Take 1 tablet by mouth every * GABAPENTIN 400 MG CAPSULE Take 1 capsule by mouth three* INSULIN LISPRO (U-100) 100 UN* Inject 6 Units subcutaneously* INSULIN GLARGINE (U-100) 100 * Inject 15 Units subcutaneousl* APIXABAN 5 MG TABLET Take 1 tablet by mouth twice * FLUTICASONE 50 MCG/ACTUATION * Use 2 Sprays in each nostril * LORAZEPAM 0.5 MG TABLET Take 1 tablet by mouth every * THERAPEUTIC MULTIVITAMIN TABL* Take 1 tablet by mouth once d* VENLAFAXINE ER 75 MG CAPSULE,* Take 1 capsule by mouth twice* DILTIAZEM SR 120 MG 24 HR CAP Take 1 capsule by mouth once * PEN NEEDLE, DIABETIC 29 GAUGE* Use one needle per dose. 5 p* EXENATIDE 5 MCG/DOSE (250 MCG* INJECT 5 mcg SUBCUTANEOUSLY T* IPRATROPIUM-ALBUTEROL 0.5 MG-* Inhale 3 mL as instructed kris* BUDESONIDE-FORMOTEROL HFA 160* Inhale 2 Puffs as instructed * COMPOUNDED PRESCRIPTION Oxygen for home @ 2L per BIPA* NADOLOL 40 MG TABLET TAKE THREE TABLETS BY MOUTH D* POLYETHYLENE GLYCOL 3350 17 G* Take 1 Packet by mouth as nee* CPAP ACETAMINOPHEN ER 650 MG TABLE* Take 650 mg by mouth every 8 * Problem List As Of Date 04/11/2018 Noted Resolved Diabetes ([facility]) [E11.9] INVALID FOR* More... Atrial fibrillation ([facility]) [I48.91] INVALID FOR* Priority: A More... Lymphedema [I89.0] INVALID FOR* Priority: B More... Heart failure, systolic and diastolic, acute on*INVALID FOR*12/31/2014 More... Obesity, morbid, BMI 50 or higher ([facility]) [E66.01]INVALID FOR* More... Hypertension [I10] INVALID FOR* More... HUNTER (obstructive sleep apnea) [G47.33] INVALID FOR* More... Pulmonary HTN ([facility]) [I27.20] INVALID FOR* More... Atrial fibrillation with RVR ([facility]) [I48.91] INVALID FOR*09/23/2016 More... Heart failure, diastolic, acute ([facility]) [I50.31] INVALID FOR* More... Counseling and coordination of care [Z71.89] INVALID FOR*04/12/2015 More... Monoclonal gammopathy [D47.2] INVALID FOR* Empty sella turcica ([facility]) [E23.6] INVALID FOR* More... Uncontrolled type 2 diabetes mellitus without c*INVALID FOR*09/23/2016 Prescriptions ordered this encounter Disp Refills Start End GABAPENTIN 400 MG CAPSULE 90 c* 2 04/11/2018 07/10/2018 Route: ORAL Sig: Take 1 capsule by mouth three times daily for 90 days. TRAMADOL 50 MG TABLET 60 t* 0 04/12/2018 05/12/2018 Class: Print RX Route: ORAL Sig: Take 1 tablet by mouth every 6 hours as needed for Pain for up to 30 days. Medications Discontinued During This Encounter traMADol (ULTRAM) 50 mg tablet 20 t* 0 12/03/2017 04/11/2018 Class: Print RX Route: ORAL Sig: Take 1 tablet by mouth every 4 hours as needed for up to 5 days. Disc: Reason for discontinue is not on file. gabapentin (NEURONTIN) 400 mg capsule 60 c* 2 04/06/2018 04/11/2018 Route: ORAL Sig: Take 1 capsule by mouth twice daily for 90 days. Disc: Reason for discontinue is not on file. oxyCODONE ir (OXYIR) 5 mg capsule 03/22/2018 04/12/2018 Class: Med Update Si tablet every 6 hour PRN moderate pain and 2 tablets every 6 hours PRN severe pain Earliest Fill Date: 03/22/18 Disc: Reason for discontinue is not on file. Encounter Status:Closed by MELVINA ALMARAZ on 04/12/18 PROGRESS Observed: 04/06/2018 Status: COMPLETED Source: [place] 11:49 AM [facility] REPOSITORY HNO ID: [id number] Author: Melvina Emanuel) Sung Service: (none) Author Type: Registered Nurse Type: Progress Notes Filed: 04/06/2018 11:53 AM Note Text: PRIMARY CARE COORDINATION QUICK NOTE Provider Action/FYI FYI Patient identified by name and date . TC to patient, instructed to increase Neurontin to 400 mg and increase Humalog to 6 units before each meal, verbalized understanding with teach back. Discussed coming in for PCP appt. States she is having trouble with stairs and she needs to take several stairs to get out of the house and step up into the van. PT is going to start working with the stairs and the van on . Strength is slowly improving. Melvina Almaraz RN April 06, 2018 11:53 AM PROGRESS Observed: 04/06/2018 Status: COMPLETED Source: [place] 10:22 AM [facility] REPOSITORY HNO ID: [id number] Author: Rajesh Holman Service: (none) Author Type: Physician Type: Progress Notes Filed: 04/06/2018 11:53 AM Note Text: Lets increase her neurontin to 400 mg po bid and increase humalog to 6 units tid. See if pain is improved first and then we will try and wean the pain pills PROGRESS Observed: 04/06/2018 Status: COMPLETED Source: [place] 9:58 AM [facility] REPOSIT[facility] HNO ID: [id number] Author: Melvina (Evgeny) Sung Service: (none) Author Type: Registered Nurse Type: Progress Notes Filed: 04/06/2018 10:08 AM Note Text: PRIMARY CARE COORDINATION FOLLOW-UP NOTE Provider Action/FYI See BS: Humalog 3 units at meals added on 03/31 Lantus is 15 units at bedtime Pt having pain bilaterally below knees. Sometimes its neuropathy, sometimes it's the wounds but I want to get off the Oxy. CAN SHE INCREASE GABAPENTIN? IS THERE ANOTHER PAIN PILL SHE CAN TAKE OTHER THAN OXYCODONE? Patient identified by name and date of . YES Spoke to patient Summary: Vicki Hernandez is a 57 year old female who reports glucose readings as noted. DATE 04/06 04/05 04/04 04/03 04/02 04/01 03/31 Fasting 162 176 204 194 200 201 173 Before Dinner 204 199 204 203 215 179 Any low blood sugars during this period of reporting No Patient's diabetes medications as follows: insulin lispro (HUMALOG KWIKPEN INSULIN) 100 unit/mL Inject 3 Units three times daily before meals. insulin glargine (LANTUS SOLOSTAR U-100 INSULIN) 100 unit/mL Inject 15 Units daily at bedtime. [employer] Manager plan for next outreach: Will follow up next week Signature Melvina Almaraz RN April 06, 2018 CNPTOUTREACH Observed: 04/06/2018 Status: COMPLETED Source: [place] 12:00 AM [facility] REPOSITORY Patient Outreach (FAMPWS) VICKI HERNANDEZ ([id number]) 1960 F Date Time Provider Department 04/06/18 MELVINA ALMARAZ (EVGENY) AUDREY During your visit today, we recorded the following information about you: Melvina Almaraz RN 04/06/2018 10:08 AM Signed PRIMARY CARE COORDINATION FOLLOW-UP NOTE Provider Action/FYI See BS: Humalog 3 units at meals added on 03/31 Lantus is 15 units at bedtime Pt having pain bilaterally below knees. Sometimes its neuropathy, sometimes it's the wounds but I want to get off the Oxy. CAN SHE INCREASE GABAPENTIN? IS THERE ANOTHER PAIN PILL SHE CAN TAKE OTHER THAN OXYCODONE? Patient identified by name and date of . YES Spoke to patient Summary: Vicki Hernandez is a 57 year old female who reports glucose readings as noted. DATE 04/06 04/05 04/04 04/03 04/02 04/01 03/31 Fasting 162 176 204 194 200 201 173 Before Dinner 204 199 204 203 215 179 Any low blood sugars during this period of reporting No Patient's diabetes medications as follows: insulin lispro (HUMALOG KWIKPEN INSULIN) 100 unit/mL Inject 3 Units three times daily before meals. insulin glargine (LANTUS SOLOSTAR U-100 INSULIN) 100 unit/mL Inject 15 Units daily at bedtime. [employer] Manager plan for next outreach: Will follow up next week Signature Melvina Almaraz RN April 06, 2018 Rajesh Holman MD 04/06/2018 11:53 AM Signed Lets increase her neurontin to 400 mg po bid and increase humalog to 6 units tid. See if pain is improved first and then we will try and wean the pain pills Melvina Almaraz RN 04/06/2018 11:53 AM Signed PRIMARY CARE COORDINATION QUICK NOTE Provider Action/FYI FYI Patient identified by name and date . TC to patient, instructed to increase Neurontin to 400 mg and increase Humalog to 6 units before each meal, verbalized understanding with teach back. Discussed coming in for PCP appt. States she is having trouble with stairs and she needs to take several stairs to get out of the house and step up into the van. PT is going to start working with the stairs and the van on . Strength is slowly improving. Melvina Almaraz RN April 06, 2018 11:53 AM Allergies As of Date: 04/06/2018 Noted Allergy Reaction CODEINE 11/19/2010 14 - Other: See Comments Comments: Itching, vomitting LATEX 11/19/2010 14 - Other: See Comments Comments: Itching,hives,dyspnea PHENOBARBITAL 11/19/2010 14 - Other: See Comments Comments: Nausea, itching TALWIN (PENTAZOCINE LACTATE) 11/19/2010 1 - Mental Status Change Comments: Hallucinations TREE NUT 02/07/2015 10 - Anaphylaxis Date Reviewed: 06/08/2017 Reviewed by: Karena Shaikh Cadd Drafter - Fully Assessed Reason for Visit: Bed Control Specialist Chronic Care [2511] Visit Diagnosis:Lymphedema [I89.0] Order(s):insulin lispro (HUMALOG KWIKPEN INSULIN) 100 unit/mL inpnInject 6 Units subcutaneously three times daily before meals.Disp: 5 PenRfl: 11 gabapentin (NEURONTIN) 400 mg capsuleTake 1 capsule by mouth twice daily for 90 days.Disp: 60 capsuleRfl: 2 Prescriptions as of 04/06/2018 Sig: INSULIN LISPRO (U-100) 100 UN* Inject 6 Units subcutaneously* GABAPENTIN 400 MG CAPSULE Take 1 capsule by mouth twice* INSULIN GLARGINE (U-100) 100 * Inject 15 Units subcutaneousl* APIXABAN 5 MG TABLET Take 1 tablet by mouth twice * FLUTICASONE 50 MCG/ACTUATION * Use 2 Sprays in each nostril * LORAZEPAM 0.5 MG TABLET Take 1 tablet by mouth every * THERAPEUTIC MULTIVITAMIN TABL* Take 1 tablet by mouth once d* OXYCODONE 5 MG CAPSULE 1 tablet every 6 hour PRN mod* VENLAFAXINE ER 75 MG CAPSULE,* Take 1 capsule by mouth twice* DILTIAZEM SR 120 MG 24 HR CAP Take 1 capsule by mouth once * PEN NEEDLE, DIABETIC 29 GAUGE* Use one needle per dose. 5 p* EXENATIDE 5 MCG/DOSE (250 MCG* INJECT 5 mcg SUBCUTANEOUSLY T* IPRATROPIUM-ALBUTEROL 0.5 MG-* Inhale 3 mL as instructed kris* BUDESONIDE-FORMOTEROL HFA 160* Inhale 2 Puffs as instructed * COMPOUNDED PRESCRIPTION Oxygen for home @ 2L per BIPA* NADOLOL 40 MG TABLET TAKE THREE TABLETS BY MOUTH D* POLYETHYLENE GLYCOL 3350 17 G* Take 1 Packet by mouth as nee* CPAP ACETAMINOPHEN ER 650 MG TABLE* Take 650 mg by mouth every 8 * Problem List As Of Date 04/06/2018 Noted Resolved Diabetes (HCC) [E11.9] INVALID FOR* More... Atrial fibrillation (HCC) [I48.91] INVALID FOR* Priority: A More... Lymphedema [I89.0] INVALID FOR* Priority: B More... Heart failure, systolic and diastolic, acute on*INVALID FOR*12/31/2014 More... Obesity, morbid, BMI 50 or higher ([facility]) [E66.01]INVALID FOR* More... Hypertension [I10] INVALID FOR* More... HUNTER (obstructive sleep apnea) [G47.33] INVALID FOR* More... Pulmonary HTN (HCC) [I27.20] INVALID FOR* More... Atrial fibrillation with RVR ([facility]) [I48.91] INVALID FOR*09/23/2016 More... Heart failure, diastolic, acute (HCC) [I50.31] INVALID FOR* More... Counseling and coordination of care [Z71.89] INVALID FOR*04/12/2015 More... Monoclonal gammopathy [D47.2] INVALID FOR* Empty sella turcica ([facility]) [E23.6] INVALID FOR* More... Uncontrolled type 2 diabetes mellitus without c*INVALID FOR*09/23/2016 Prescriptions ordered this encounter Disp Refills Start End INSULIN LISPRO (U-100) 100 UNIT/ML S* 5 Pen 11 04/06/2018 Class: Med Update Route: SUBCUTANEOUS Sig: Inject 6 Units subcutaneously three times daily before meals. GABAPENTIN 400 MG CAPSULE 60 c* 2 04/06/2018 07/05/2018 Route: ORAL Sig: Take 1 capsule by mouth twice daily for 90 days. Medications Discontinued During This Encounter insulin lispro (HUMALOG KWIKPEN INSU* 5 Pen 11 03/31/2018 04/06/2018 Route: SUBCUTANEOUS Sig: Inject 3 Units subcutaneously three times daily before meals. Disc: Reason for discontinue is not on file. gabapentin (NEURONTIN) 400 mg capsule 03/22/2018 04/06/2018 Class: Med Update Route: ORAL Sig: Take 1 capsule by mouth daily at bedtime for 30 days. Disc: Reason for discontinue is not on file. Encounter Status:Closed by MELVINA ALMARAZ on 04/06/18 PROGRESS Observed: 04/01/2018 Status: COMPLETED Source: [place] 4:10 PM [facility] HNO ID: [id number] Author: Rocco Smith LPN Service: (none) Author Type: (none) Type: Progress Notes Filed: 04/01/2018 4:10 PM Note Text: Completed as requested. PROGRESS Observed: 04/01/2018 Status: COMPLETED Source: [place] 2:45 PM [facility] REPOSIT[facility] HNO ID: [id number] Author: Rajesh Holman Service: (none) Author Type: Physician Type: Progress Notes Filed: 04/01/2018 4:10 PM Note Text: done PROGRESS Observed: 04/01/2018 Status: COMPLETED Source: [place] 1:43 PM [facility] RE[facility] HNO ID: [id number] Author: Melvina Emanuel) Sung Service: (none) Author Type: Registered Nurse Type: Progress Notes Filed: 04/01/2018 2:05 PM Note Text: PRIMARY CARE COORDINATION QUICK NOTE Provider Action/FYI Letter pended re: jury duty Please fax to Court [facility] [phone] and mail copy to patient. PLEASE SIGN LETTER, FAX COPY TO COURT AND MAIL COPY TO PT Patient identified by name and date . TC from patient, states she received notice for jury duty in [facility]. She is required to have letter as to why she cannot serve. CNPTOUTREACH Observed: 04/01/2018 Status: COMPLETED Source: [place] 12:00 AM [facility] REPOSITORY Patient Outreach ([facility]AMPWS) VICKI HERNANDEZ ([id number]) 1960 F Date Time Provider Department 04/01/18 MELVINA ALMARAZ) AUDREY During your visit today, we recorded the following information about you: Melvina Almaraz RN 04/01/2018 2:05 PM Signed PRIMARY CARE COORDINATION QUICK NOTE Provider Action/FYI Letter pended re: jury duty Please fax to [facility] [phone] and mail copy to patient. PLEASE SIGN LETTER, FAX COPY TO COURT AND MAIL COPY TO PT Patient identified by name and date . TC from patient, states she received notice for jury duty in [facility]. She is required to have letter as to why she cannot serve. Rajesh Holman MD 04/01/2018 4:10 PM Signed done Rocco Smith LPN 04/01/2018 4:10 PM Signed Completed as requested. Allergies As of Date: 04/01/2018 Noted Allergy Reaction CODEINE 11/19/2010 14 - Other: See Comments Comments: Itching, vomitting LATEX 11/19/2010 14 - Other: See Comments Comments: Itching,hives,dyspnea PHENOBARBITAL 11/19/2010 14 - Other: See Comments Comments: Nausea, itching TALWIN (PENTAZOCINE LACTATE) 11/19/2010 1 - Mental Status Change Comments: Hallucinations TREE NUT 02/07/2015 10 - Anaphylaxis Date Reviewed: 06/08/2017 Reviewed by: Karena Shaikh Cadd Drafter - Fully Assessed Reason for Visit: Bed Control Specialist - Patient Initiated [3274] Prescriptions as of 04/01/2018 Sig: INSULIN LISPRO (U-100) 100 UN* Inject 3 Units subcutaneously* INSULIN GLARGINE (U-100) 100 * Inject 15 Units subcutaneousl* APIXABAN 5 MG TABLET Take 1 tablet by mouth twice * FLUTICASONE 50 MCG/ACTUATION * Use 2 Sprays in each nostril * LORAZEPAM 0.5 MG TABLET Take 1 tablet by mouth every * THERAPEUTIC MULTIVITAMIN TABL* Take 1 tablet by mouth once d* OXYCODONE 5 MG CAPSULE 1 tablet every 6 hour PRN mod* VENLAFAXINE ER 75 MG CAPSULE,* Take 1 capsule by mouth twice* GABAPENTIN 400 MG CAPSULE Take 1 capsule by mouth daily* DILTIAZEM SR 120 MG 24 HR CAP Take 1 capsule by mouth once * PEN NEEDLE, DIABETIC 29 GAUGE* Use one needle per dose. 5 p* EXENATIDE 5 MCG/DOSE (250 MCG* INJECT 5 mcg SUBCUTANEOUSLY T* IPRATROPIUM-ALBUTEROL 0.5 MG-* Inhale 3 mL as instructed kris* BUDESONIDE-FORMOTEROL HFA 160* Inhale 2 Puffs as instructed * COMPOUNDED PRESCRIPTION Oxygen for home @ 2L per BIPA* NADOLOL 40 MG TABLET TAKE THREE TABLETS BY MOUTH D* POLYETHYLENE GLYCOL 3350 17 G* Take 1 Packet by mouth as nee* CPAP ACETAMINOPHEN ER 650 MG TABLE* Take 650 mg by mouth every 8 * Problem List As Of Date 04/01/2018 Noted Resolved Diabetes (HCC) [E11.9] INVALID FOR* More... Atrial fibrillation (HCC) [I48.91] INVALID FOR* Priority: A More... Lymphedema [I89.0] INVALID FOR* Priority: B More... Heart failure, systolic and diastolic, acute on*INVALID FOR*12/31/2014 More... Obesity, morbid, BMI 50 or higher (HCC) [E66.01]INVALID FOR* More... Hypertension [I10] INVALID FOR* More... HUNTER (obstructive sleep apnea) [G47.33] INVALID FOR* More... Pulmonary HTN (HCC) [I27.20] INVALID FOR* More... Atrial fibrillation with RVR (HCC) [I48.91] INVALID FOR*09/23/2016 More... Heart failure, diastolic, acute (HCC) [I50.31] INVALID FOR* More... Counseling and coordination of care [Z71.89] INVALID FOR*04/12/2015 More... Monoclonal gammopathy [D47.2] INVALID FOR* Empty sella turcica (HCC) [E23.6] INVALID FOR* More... Uncontrolled type 2 diabetes mellitus without c*INVALID FOR*09/23/2016 Follow-up and Disposition History Recorded Letter Text Rajesh Holman MD [address], [place] [address] April 01, 2018 PATIENT: Vicki Hernandez CLINIC NUMBER: [id number] To whom it may concern: Please excuse Ms. Hernandez from Jury Duty. Ms. Hernandez is followed in my office at [facility] for multiple acute and chronic diseases. Please excuse Ms. Hernandez from jury duty. Please do not hesitate to call if you have any questions. Sincerely, Rajesh Holman MD CC: Vicki Hernandez [address] [facility] [address] Encounter Status:Closed by ROCCO SMITH LPN on 04/01/18 PROGRESS Observed: 03/31/2018 Status: COMPLETED Source: [place] 11:08 AM [facility] RE[facility] HNO ID: [id number] Author: Melvina Emanuel) Sung Service: (none) Author Type: Registered Nurse Type: Progress Notes Filed: 03/31/2018 11:29 AM Note Text: PRIMARY CARE COORDINATION QUICK NOTE Provider Action/FYI TC to patient, instructed to take Humalog as directed by PCP below, verbalized understanding by teach back Patient identified by name and date . insulin lispro (HUMALOG KWIKPEN INSULIN) 100 unit/mL Inject 3 Units subcutaneously three times daily before meals. TC to [place] , asked to call patient to assist with transportation to Wound Center appt on 04/11. Pt states she can assist with payment. TC from patient, states she called the Wound Center and they moved pt's appt back to 04/11 at 10:00. States she needs assistance with transportation and can assist with payment. States she would also like to come to see PCP that day. PROGRESS Observed: 03/31/2018 Status: COMPLETED Source: [place] 10:06 AM [facility] RE[facility] HNO ID: [id number] Author: Rajesh Holman Service: (none) Author Type: Physician Type: Progress Notes Filed: 03/31/2018 10:06 AM Note Text: Lets have her start low dose with meals and continue other insulin also PROGRESS Observed: 03/31/2018 Status: COMPLETED Source: [place] 9:47 AM [facility] RE[facility] HNO ID: [id number] Author: Melvina Emanuel) Sung Service: (none) Author Type: Registered Nurse Type: Progress Notes Filed: 03/31/2018 9:54 AM Note Text: PRIMARY CARE COORDINATION QUICK NOTE Provider Action/FYI PT ASKING IF SHE CAN POSSIBLY GO BACK TO TAKING HUMALOG 14 UNITS BEFORE MEALS INSTEAD OF THE SLIDING SCALE BECAUSE THAT WORKED BETTER FOR HER? Also pt is not strong enough yet to come into MD's office. She is going to call Wound Center about upcoming appt because she isn't strong enough to get to [facility]. Continues to work with PT/OT HH nurse changing LE dressings every other day. States wounds are improving Patient identified by name and date . TC to patient, instructed to increase Lantus to 15 units daily, verbalized understanding by teach back. Melvina Almaraz RN March 31, 2018 9:52 AM PROGRESS Observed: 03/30/2018 Status: COMPLETED Source: [place] 4:51 PM [facility] RE[facility] HNO ID: [id number] Author: Rajesh Holman Service: (none) Author Type: Physician Type: Progress Notes Filed: 03/30/2018 4:52 PM Note Text: Increase lantus to 15 units a day. Call list in one week PROGRESS Observed: 03/30/2018 Status: COMPLETED Source: [place] 3:34 PM [facility] RE[facility]IT[facility] HNO ID: [id number] Author: Melvina Emanuel) Sung Service: (none) Author Type: Registered Nurse Type: Progress Notes Filed: 03/30/2018 3:42 PM Note Text: TRANSITION CARE MANAGEMENT (TCM) FOLLOW-UP NOTE Provider Action/FYI See BS Pt is only on Lantus 10 units daily and Humalog Sliding Scale States she is following her diet closely Before hospitalization was on Byetta, Humalog 14 units ac, Lantus 46 units daily and Metformin 1000 mg BID Patient identified by name and date of : YES Spoke to patient Summary: Vicki Hernandez is a 57 year old female who reports glucose readings as noted. DATE 03/30 03/29 03/28 03/27 03/26 03/25 03/24 03/23 03/22 Fasting 178 195 249 270 236 290 [phone] Before Lunch 207 250 288 272 244 244 223 259 Before Supper 220 260 250 245 218 311 Any low blood sugars during this period of reporting No Patient's diabetes medications as follows: insulin glargine (LANTUS SOLOSTAR U-100 INSULIN) 100 unit/mL Inject 10 Units subcutaneously daily at bedtime. Insulin Humalog Sliding Scale [employer] Manager plan for next outreach: Will follow up one week Signature Melvina Almaraz RN March 30, 2018 CNPTOUTREACH Observed: 03/30/2018 Status: COMPLETED Source: [place] 12:00 AM [facility] RE[facility] Patient Outreach (FAMPWS) VICKI HERNANDEZ ([id number]) 1960 F Date Time Provider Department 03/30/18 MELVINA ALMARAZ (RN) AUDREY During your visit today, we recorded the following information about you: Melvina Almaraz RN 03/30/2018 3:42 PM Signed TRANSITION CARE MANAGEMENT (TCM) FOLLOW-UP NOTE Provider Action/FYI See BS Pt is only on Lantus 10 units daily and Humalog Sliding Scale States she is following her diet closely Before hospitalization was on Byetta, Humalog 14 units ac, Lantus 46 units daily and Metformin 1000 mg BID Patient identified by name and date of : YES Spoke to patient Summary: Vicki Hernandez is a 57 year old female who reports glucose readings as noted. DATE 03/30 03/29 03/28 03/27 03/26 03/25 03/24 03/23 03/22 Fasting 178 195 249 270 236 [phone] 312 Before Lunch 207 250 288 272 244 244 223 259 Before Supper 220 260 250 245 218 311 Any low blood sugars during this period of reporting No Patient's diabetes medications as follows: insulin glargine (LANTUS SOLOSTAR U-100 INSULIN) 100 unit/mL Inject 10 Units subcutaneously daily at bedtime. Insulin Humalog Sliding Scale [employer] Manager plan for next outreach: Will follow up one week Signature Melvina Almaraz RN March 30, 2018 Rajesh Holman MD 03/30/2018 4:52 PM Signed Increase lantus to 15 units a day. Call list in one week Melvina Almaraz RN 03/31/2018 9:54 AM Signed PRIMARY CARE COORDINATION QUICK NOTE Provider Action/FYI PT ASKING IF SHE CAN POSSIBLY GO BACK TO TAKING HUMALOG 14 UNITS BEFORE MEALS INSTEAD OF THE SLIDING SCALE BECAUSE THAT WORKED BETTER FOR HER? Also pt is not strong enough yet to come into MD's office. She is going to call Wound Center about upcoming appt because she isn't strong enough to get to [facility]. Continues to work with PT/OT HH nurse changing LE dressings every other day. States wounds are improving Patient identified by name and date . TC to patient, instructed to increase Lantus to 15 units daily, verbalized understanding by teach back. Melvina Almaraz RN March 31, 2018 9:52 AM Rajesh Holman MD 03/31/2018 10:05 AM Signed Addended by: RAJESH HOLMAN MD on: 03/31/2018 10:05 AM Modules accepted: Orders Rajesh Holman MD 03/31/2018 10:06 AM Signed Lets have her start low dose with meals and continue other insulin also Melvina Almaraz RN 03/31/2018 11:29 AM Signed PRIMARY CARE COORDINATION QUICK NOTE Provider Action/FYI TC to patient, instructed to take Humalog as directed by PCP below, verbalized understanding by teach back Patient identified by name and date . insulin lispro (HUMALOG KWIKPEN INSULIN) 100 unit/mL Inject 3 Units subcutaneously three times daily before meals. TC to MEÑO Esteban, asked to call patient to assist with transportation to Wound Center appt on 04/11. Pt states she can assist with payment. TC from patient, states she called the Wound Center and they moved pt's appt back to 04/11 at 10:00. States she needs assistance with transportation and can assist with payment. States she would also like to come to see PCP that day. 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 Hospital Follow Up [1132] Cmt: TCM Call Discharge from SNF 03/18 Reason For Visit History Recorded Order(s):insulin glargine (LANTUS SOLOSTAR U-100 INSULIN) 100 unit/mL (3 mL) inpnInject 15 Units subcutaneously daily at bedtime.Disp: 5 PenRfl: 3 insulin lispro (HUMALOG KWIKPEN INSULIN) 100 unit/mL inpnInject 3 Units subcutaneously three times daily before meals.Disp: 5 PenRfl: 11 Prescriptions as of 03/30/2018 Sig: INSULIN LISPRO (U-100) 100 UN* Inject 3 Units subcutaneously* INSULIN GLARGINE (U-100) 100 * Inject 15 Units subcutaneousl* APIXABAN 5 MG TABLET Take 1 tablet by mouth twice * FLUTICASONE 50 MCG/ACTUATION * Use 2 Sprays in each nostril * LORAZEPAM 0.5 MG TABLET Take 1 tablet by mouth every * THERAPEUTIC MULTIVITAMIN TABL* Take 1 tablet by mouth once d* OXYCODONE 5 MG CAPSULE 1 tablet every 6 hour PRN mod* VENLAFAXINE ER 75 MG CAPSULE,* Take 1 capsule by mouth twice* GABAPENTIN 400 MG CAPSULE Take 1 capsule by mouth daily* DILTIAZEM SR 120 MG 24 HR CAP Take 1 capsule by mouth once * PEN NEEDLE, DIABETIC 29 GAUGE* Use one needle per dose. 5 p* EXENATIDE 5 MCG/DOSE (250 MCG* INJECT 5 mcg SUBCUTANEOUSLY T* IPRATROPIUM-ALBUTEROL 0.5 MG-* Inhale 3 mL as instructed kris* BUDESONIDE-FORMOTEROL HFA 160* Inhale 2 Puffs as instructed * COMPOUNDED PRESCRIPTION Oxygen for home @ 2L per BIPA* NADOLOL 40 MG TABLET TAKE THREE TABLETS BY MOUTH D* POLYETHYLENE GLYCOL 3350 17 G* Take 1 Packet by mouth as nee* CPAP ACETAMINOPHEN ER 650 MG TABLE* Take 650 mg by mouth every 8 * Problem List As Of Date 03/30/2018 Noted Resolved Diabetes (HCC) [E11.9] INVALID FOR* More... Atrial fibrillation (HCC) [I48.91] INVALID FOR* Priority: A More... Lymphedema [I89.0] INVALID FOR* Priority: B More... Heart failure, systolic and diastolic, acute on*INVALID FOR*12/31/2014 More... Obesity, morbid, BMI 50 or higher (HCC) [E66.01]INVALID FOR* More... Hypertension [I10] INVALID FOR* More... HUNTER (obstructive sleep apnea) [G47.33] INVALID FOR* More... Pulmonary HTN (HCC) [I27.20] INVALID FOR* More... Atrial fibrillation with RVR (HCC) [I48.91] INVALID FOR*09/23/2016 More... Heart failure, diastolic, acute (HCC) [I50.31] INVALID FOR* More... Counseling and coordination of care [Z71.89] INVALID FOR*04/12/2015 More... Monoclonal gammopathy [D47.2] INVALID FOR* Empty sella turcica (HCC) [E23.6] INVALID FOR* More... Uncontrolled type 2 diabetes mellitus without c*INVALID FOR*09/23/2016 Prescriptions ordered this encounter Disp Refills Start End INSULIN GLARGINE (U-100) 100 UNIT/ML* 5 Pen 3 03/30/2018 Class: Med Update Route: SUBCUTANEOUS Sig: Inject 15 Units subcutaneously daily at bedtime. INSULIN LISPRO (U-100) 100 UNIT/ML S* 5 Pen 11 03/31/2018 Route: SUBCUTANEOUS Sig: Inject 3 Units subcutaneously three times daily before meals. Medications Discontinued During This Encounter insulin glargine (LANTUS SOLOSTAR U-* 5 Pen 3 03/22/2018 03/30/2018 Route: SUBCUTANEOUS Sig: Inject 10 Units subcutaneously daily at bedtime. Disc: Reason for discontinue is not on file. insulin lispro (HUMALOG KWIKPEN INSU* 5 Pen 3 10/26/2017 03/31/2018 Route: SUBCUTANEOUS Sig: Inject 14 Units subcutaneously w MEALS. Disc: Reason for discontinue is not on file. Follow-up and Disposition History Recorded Encounter Status:Closed by RAJESH HOLMAN MD on 03/30/18 PROGRESS Observed: 03/22/2018 Status: COMPLETED Source: [place] 4:32 PM [facility] REPOSITORY HNO ID: [id number] Author: Melvina Emanuel) Sung Service: (none) Author Type: Registered Nurse Type: Progress Notes Filed: 03/22/2018 4:33 PM Note Text: PRIMARY CARE COORDINATION QUICK NOTE Provider Action/FYI FYI Patient identified by name and date . TC to patient to start Lantus 10 units at bedtime and gabapentin 400 mg at bedtime only x 30 days. Call BS in one week. Verbalized understanding with teach back Melvina Almaraz RN March 22, 2018 4:33 PM PROGRESS Observed: 03/22/2018 Status: COMPLETED Source: [place] 12:04 PM [facility] RE[facility] HNO ID: [id number] Author: Rajesh Holman Service: (none) Author Type: Physician Type: Progress Notes Filed: 03/22/2018 4:34 PM Note Text: Noted. Resume insulin. Call sugars in one week. Do edson at hs PROGRESS Observed: 03/21/2018 Status: COMPLETED Source: [place] 5:26 PM [facility] HNO ID: [id number] Author: Melvina (Rn) Sung Service: (none) Author Type: Registered Nurse Type: Progress Notes Filed: 03/22/2018 10:35 AM Note Text: TRANSITION CARE MANAGEMENT (TCM) INITIAL CONTACT Provider Action/FYI: BS ranging in the 200's Not on metformin, Byetta, glipizide or Lantus insulin Only on Humalog sliding scale PT WANTS TO RESTART OLD REGIMEN OF DM MEDS, SHE WAS BETTER CONTROLLED On Cardizem CD only, not on nadolol. States felt better when she was taking the Cardizem/Nadolol combo. Symbicort is ordered 1 puff Daily PRN SOB, instead of [address] Rader previously Gabapentin is ordered 100 mg at HS, instead of 400 mg tabs 1 tab 4 times daily NEUROPATHY PAIN IS NOT CONTROLLED Still has open wounds on bilateral calves To see Wound Center on 04/07 Initial contact with patient post discharge, spoke to patient. Patient identified by name and . SUMMARY: -Pt discharged from [facility] on 03/18. (Admission 02/01) -Follow up appointment on TBD. Appt Dr. Martinez [facility] Wound Center on 04/07 -Medication review done with patient. -Admitted for: Muscle Weakness Chronic Diastolic CHF A fib HTN Polyneuropathy DM Anxiety CONCERNS: On Cardizem CD only, not on nadolol. States she felt better when she was taking the Cardizem/Nadolol combo. States she has occasional heart pounding. On no Digoxin. No chest pain or cough. Occasional SOB when exercising UEs and LEs , normal respirations resume after 5 minute rest. RA 95-97% pulse ox Reports feet are puffy but on no diuretic Lymphedema better than they've been in awhile, RLE down LE Wounds: Both ankles and gluteal fold are healed R posterior calf down to outer aspect ankle; top half of incision healed and bottom half granulating well L posterior calf about 75% granulated in and beefy red. Washing legs with washcloth or sponge and antibiotic soap. Instructed to change sponges frequently so they won't harbor bacteria [facility] Home Health sending SN, PT and OT BS ranging in the 200's Not on metformin, Byetta, glipizide or Lantus insulin Only on Humalog sliding scale 0-150 0 units, 151-200 2 units, 201-250 4 units, 251-300 6 units. NEW MEDICATIONS: Eliquis 5mg Twice daily Gummy Multivitamin 1 Daily Oxycodone 5 mg 1-2 tablets every 6 hours PRN for moderate to severe pain Flonase nasal spray 2 sprays in each nostril daily MEDICATION CHANGES: Diltiazem HCL 120 mg 480 mg (4 tablets) Daily MEDS HELD/DISCONTINUED: Acetaminophen (TYLENOL ARTHRITIS) 650 mg Take 650 mg by mouth every 8 hours as needed. digoxin (LANOXIN) 250 mcg Take 1 tablet by mouth once daily. Albuterol Sulfate 1.25 mg/3 mL nebulizer solution USE ONE vial in NEBULIZER EVERY 6 HOURS NEEDED glipiZIDE (GLUCOTROL) 10 mg Take 1 tablet by mouth twice daily before meals. torsemide (DEMADEX) 20 mg TAKE ONE TABLET BY MOUTH TWICE DAILY albuterol HFA (PROAIR HFA) 90 mcg/actuation inhaler 2 puffs every 4-[address] SOB Per [address] Rader warfarin (COUMADIN) 2 mg 10mg Tues and Th and 11 mg all other days. or as directed LANTUS SOLOSTAR 100 unit/mL (3 mL) Inject 46 units subcutaneously once daily exenatide (BYETTA) 5 mcg/dose (250 mcg/mL) INJECT 5 mcg SUBCUTANEOUSLY TWICE DAILY WITH MEALS citalopram (CELEXA) 40 mg Take 1 tablet by mouth once daily. BRIEF HOSPITAL COURSE: Transferred from [facility] to [facility] on 02/01/18 for Rehab and wound care Admitted to the the ICU on 12/24/17 with acute oliguric renal failure, vancomycin toxicity and bradycardia secondary to digoxin toxicity. Creatinine at admission 7.48 (up from 0.93 at recent admission in November for non-healing ulcers of the LE's with MRSA cellulitis) and potassium was 5.5. Lactic acid was 1.4. UA showed greater than 100 RBCs per high-power field and 5- 10 white blood cells with no bacteria. Digoxin level was 2.27 and the vancomycin was 75.6. Nephrologyconsulted and a dialysis catheter was inserted in the HIJ. She was dialyzed on 12/24 and 12/25. Urine output improved and on the day prior to DC the urine OP was 1375. At time of discharge on 12/29/2017 she had had 1000 cc out. Creatinine had been improving and on the date of discharge was 3.40. DC from the upper posterior thigh wound was greenish and had an odor and was cultured on 12/27/2017 by surgery. At the time she was afebrile with a normal WBC and normal differential. Preliminary culture is a gram-negative taylor which may be Pseudomonas. Treated topically with Dakin solution and on date of discharge the drainage from the wound was minimal and there was increased granulation and no odor. The GM negative taylor growing in the wound is due to colonization and not systemic infection. Blood sugars adequately controlled on diet alone while in hospital and she was not discharged on insulin. AF remains rate controlled with bradycardia in the 40's while sleeping at the time of DC on no rate limiting agents. She was tearful at DC and is depressed. She has been on Citalopram with no improvement. The Citalopram was weaned down due to the ARF and discontinued at DC. She will start Effexor XR on 01/03/18. She will need wound vacs placed following transfer to LTAC. Lab on the date of discharge showed a WBC of 5.7 with a normal differential. Hemoglobin was 7.9 and stable. Platelet count was 242,000. INR was decreased at 1.7 (coumadin was held at admission and Restarted on 12/27 at a decreased dose due to the RF). The dose was increased to 10 mg daily at the time of DC. Electrolytes were within normal limits and the BUN was 35 with a creatinine of 3.4. Phosphorus was 4.4. She requires more care than can be provided at a SNF due to obesity, immobility, deep wounds requiring wound vacs and multiple other medical comorbidities. She only tolerates BIPAP for short periods at night and is difficult to arouse during the day when sleeping. Pulse ox and the heart rate drop while sleeping and she requires 2-3 LPM of oxygen while sleeping....at night and with naps. She was transferred to the LTAC on 12/29/17. CNPTOUTREACH Observed: 03/21/2018 Status: COMPLETED Source: [place] 12:00 AM [facility] RE[facility] VICKI HERNANDEZ ([id number]) 1960 F Date Time Provider Department 03/21/18 MELVINA ALMARAZ (RN) MARTAPWS During your visit today, we recorded the following information about you: Melvina Almaraz RN 03/22/2018 10:35 AM Signed TRANSITION CARE MANAGEMENT (TCM) INITIAL CONTACT Provider Action/FYI: BS ranging in the 200's Not on metformin, Byetta, glipizide or Lantus insulin Only on Humalog sliding scale PT WANTS TO RESTART OLD REGIMEN OF DM MEDS, SHE WAS BETTER CONTROLLED On Cardizem CD only, not on nadolol. States felt better when she was taking the Cardizem/Nadolol combo. Symbicort is ordered 1 puff Daily PRN SOB, instead of [address] Rader previously Gabapentin is ordered 100 mg at HS, instead of 400 mg tabs 1 tab 4 times daily NEUROPATHY PAIN IS NOT CONTROLLED Still has open wounds on bilateral calves To see Wound Center on 04/07 Initial contact with patient post discharge, spoke to patient. Patient identified by name and . SUMMARY: -Pt discharged from [facility] on 03/18. (Admission 02/01) -Follow up appointment on TBD. Appt Dr. Martinez [facility] Wound Center on 04/07 -Medication review done with patient. -Admitted for: Muscle Weakness Chronic Diastolic CHF A fib HTN Polyneuropathy DM Anxiety CONCERNS: On Cardizem CD only, not on nadolol. States she felt better when she was taking the Cardizem/Nadolol combo. States she has occasional heart pounding. On no Digoxin. No chest pain or cough. Occasional SOB when exercising UEs and LEs , normal respirations resume after 5 minute rest. RA 95-97% pulse ox Reports feet are puffy but on no diuretic Lymphedema better than they've been in awhile, RLE down LE Wounds: Both ankles and gluteal fold are healed R posterior calf down to outer aspect ankle; top half of incision healed and bottom half granulating well L posterior calf about 75% granulated in and beefy red. Washing legs with washcloth or sponge and antibiotic soap. Instructed to change sponges frequently so they won't harbor bacteria [facility] Home Health sending SN, PT and OT BS ranging in the 200's Not on metformin, Byetta, glipizide or Lantus insulin Only on Humalog sliding scale 0-150 0 units, 151-200 2 units, 201-250 4 units, 251-300 6 units. NEW MEDICATIONS: Eliquis 5mg Twice daily Gummy Multivitamin 1 Daily Oxycodone 5 mg 1-2 tablets every 6 hours PRN for moderate to severe pain Flonase nasal spray 2 sprays in each nostril daily MEDICATION CHANGES: Diltiazem HCL 120 mg 480 mg (4 tablets) Daily MEDS HELD/DISCONTINUED: Acetaminophen (TYLENOL ARTHRITIS) 650 mg Take 650 mg by mouth every 8 hours as needed. digoxin (LANOXIN) 250 mcg Take 1 tablet by mouth once daily. Albuterol Sulfate 1.25 mg/3 mL nebulizer solution USE ONE vial in NEBULIZER EVERY 6 HOURS NEEDED glipiZIDE (GLUCOTROL) 10 mg Take 1 tablet by mouth twice daily before meals. torsemide (DEMADEX) 20 mg TAKE ONE TABLET BY MOUTH TWICE DAILY albuterol HFA (PROAIR HFA) 90 mcg/actuation inhaler 2 puffs every 4-[address] Rader warfarin (COUMADIN) 2 mg 10mg Tues and Th and 11 mg all other days. or as directed LANTUS SOLOSTAR 100 unit/mL (3 mL) Inject 46 units subcutaneously once daily exenatide (BYETTA) 5 mcg/dose (250 mcg/mL) INJECT 5 mcg SUBCUTANEOUSLY TWICE DAILY WITH MEALS citalopram (CELEXA) 40 mg Take 1 tablet by mouth once daily. BRIEF HOSPITAL COURSE: Transferred from [facility] to [facility] on 02/01/18 for Rehab and wound care Admitted to the the ICU on 12/24/17 with acute oliguric renal failure, vancomycin toxicity and bradycardia secondary to digoxin toxicity. Creatinine at admission 7.48 (up from 0.93 at recent admission in November for non-healing ulcers of the LE's with MRSA cellulitis) and potassium was 5.5. Lactic acid was 1.4. UA showed greater than 100 RBCs per high-power field and 5- 10 white blood cells with no bacteria. Digoxin level was 2.27 and the vancomycin was 75.6. Nephrologyconsulted and a dialysis catheter was inserted in the RIJ. She was dialyzed on 12/24 and 12/25. Urine output improved and on the day prior to DC the urine OP was 1375. At time of discharge on 12/29/2017 she had had 1000 cc out. Creatinine had been improving and on the date of discharge was 3.40. DC from the upper posterior thigh wound was greenish and had an odor and was cultured on 12/27/2017 by surgery. At the time she was afebrile with a normal WBC and normal differential. Preliminary culture is a gram- negative taylor which may be Pseudomonas. Treated topically with Dakin solution and on date of discharge the drainage from the wound was minimal and there was increased granulation and no odor. The GM negative taylor growing in the wound is due to colonization and not systemic infection. Blood sugars adequately controlled on diet alone while in hospital and she was not discharged on insulin. AF remains rate controlled with bradycardia in the 40's while sleeping at the time of DC on no rate limiting agents. She was tearful at DC and is depressed. She has been on Citalopram with no improvement. The Citalopram was weaned down due to the ARF and discontinued at DC. She will start Effexor XR on 01/03/18. She will need wound vacs placed following transfer to LTAC. Lab on the date of discharge showed a WBC of 5.7 with a normal differential. Hemoglobin was 7.9 and stable. Platelet count was 242,000. INR was decreased at 1.7 (coumadin was held at admission and Restarted on 12/27 at a decreased dose due to the RF). The dose was increased to 10 mg daily at the time of DC. Electrolytes were within normal limits and the BUN was 35 with a creatinine of 3.4. Phosphorus was 4.4. She requires more care than can be provided at a SNF due to obesity, immobility, deep wounds requiring wound vacs and multiple other medical comorbidities. She only tolerates BIPAP for short periods at night and is difficult to arouse during the day when sleeping. Pulse ox and the heart rate drop while sleeping and she requires 2-3 LPM of oxygen while sleeping....at night and with naps. She was transferred to the LTAC on 12/29/17. Rajesh Holman MD 03/22/2018 4:34 PM Signed Noted. Resume insulin. Call sugars in one week. Do edson at hs Melvina Almaraz RN 03/22/2018 4:33 PM Signed PRIMARY CARE COORDINATION QUICK NOTE Provider Action/FYI FYI Patient identified by name and date . TC to patient to start Lantus 10 units at bedtime and gabapentin 400 mg at bedtime only x 30 days. Call BS in one week. Verbalized understanding with teach back Melvina Almaraz RN March 22, 2018 4:33 PM Allergies As of Date: 03/21/2018 Noted Allergy Reaction CODEINE 11/19/2010 14 - Other: See Comments Comments: Itching, vomitting LATEX 11/19/2010 14 - Other: See Comments Comments: Itching,hives,dyspnea PHENOBARBITAL 11/19/2010 14 - Other: See Comments Comments: Nausea, itching TALWIN (PENTAZOCINE LACTATE) 11/19/2010 1 - Mental Status Change Comments: Hallucinations TREE NUT 02/07/2015 10 - Anaphylaxis Date Reviewed: 06/08/2017 Reviewed by: Karena Shaikh Cadd Drafter - Fully Assessed Reason for Visit: Transition Of Care [4074] Primary Visit Diagnosis:Osteoarthritis, unspecified osteoarthritis type, unspecified site [M19.90] Other Visit Diagnoses:Atrial fibrillation, unspecified type (HCC) [I48.91] Essential hypertension [I10] Acute respiratory failure with hypoxia and hypercarbia (HCC) [J96.01, J96.02] Pulmonary HTN (HCC) [I27.20] Lymphedema [I89.0] Anxiety [F41.9] Order(s):apixaban (ELIQUIS) 5 mg tab(s)Take 1 tablet by mouth twice daily.Disp: Rfl: fluticasone (FLONASE) 50 mcg/actuation nasal sprayUse 2 Sprays in each nostril once daily. Rinse mouth after use.Disp: 1 BottleRfl: 11 LORazepam (ATIVAN) 0.5 mg tabTake 1 tablet by mouth every 6 hours as needed for up to 30 days.Disp: Rfl: therapeutic multivitamin (THERA VITAMIN) tabletTake 1 tablet by mouth once daily.Disp: Rfl: oxyCODONE ir (OXYIR) 5 mg capsule1 tablet every 6 hour PRN moderate pain and 2 tablets every 6 hours PRN severe pain Earliest Fill Date: 03/22/18Disp: Rfl: venlafaxine ER (EFFEXOR XR) 75 mg 24 hr capsuleTake 1 capsule by mouth twice daily.Disp: Rfl: gabapentin (NEURONTIN) 400 mg capsuleTake 1 capsule by mouth daily at bedtime for 30 days.Disp: Rfl: insulin glargine (LANTUS SOLOSTAR U-100 INSULIN) 100 unit/mL (3 mL) inpnInject 10 Units subcutaneously daily at bedtime.Disp: 5 PenRfl: 3 Prescriptions as of 03/21/2018 Sig: PEN NEEDLE, DIABETIC 29 GAUGE* Use one needle per dose. 5 p* IPRATROPIUM-ALBUTEROL 0.5 MG-* Inhale 3 mL as instructed kris* COMPOUNDED PRESCRIPTION Oxygen for home @ 2L per BIPA* POLYETHYLENE GLYCOL 3350 17 G* Take 1 Packet by mouth as nee* APIXABAN 5 MG TABLET Take 1 tablet by mouth twice * FLUTICASONE 50 MCG/ACTUATION * Use 2 Sprays in each nostril * LORAZEPAM 0.5 MG TABLET Take 1 tablet by mouth every * THERAPEUTIC MULTIVITAMIN TABL* Take 1 tablet by mouth once d* OXYCODONE 5 MG CAPSULE 1 tablet every 6 hour PRN mod* VENLAFAXINE ER 75 MG CAPSULE,* Take 1 capsule by mouth twice* GABAPENTIN 400 MG CAPSULE Take 1 capsule by mouth daily* INSULIN GLARGINE (U-100) 100 * Inject 10 Units subcutaneousl* DILTIAZEM SR 120 MG 24 HR CAP Take 1 capsule by mouth once * INSULIN LISPRO (U-100) 100 UN* Inject 14 Units subcutaneousl* EXENATIDE 5 MCG/DOSE (250 MCG* INJECT 5 mcg SUBCUTANEOUSLY T* BUDESONIDE-FORMOTEROL HFA 160* Inhale 2 Puffs as instructed * NADOLOL 40 MG TABLET TAKE THREE TABLETS BY MOUTH D* CPAP ACETAMINOPHEN ER 650 MG TABLE* Take 650 mg by mouth every 8 * Problem List As Of Date 03/21/2018 Noted Resolved Diabetes (HCC) [E11.9] INVALID FOR* More... Atrial fibrillation (HCC) [I48.91] INVALID FOR* Priority: A More... Lymphedema [I89.0] INVALID FOR* Priority: B More... Heart failure, systolic and diastolic, acute on*INVALID FOR*12/31/2014 More... Obesity, morbid, BMI 50 or higher ([facility]) [E66.01]INVALID FOR* More... Hypertension [I10] INVALID FOR* More... HUNTER (obstructive sleep apnea) [G47.33] INVALID FOR* More... Pulmonary HTN ([facility]) [I27.20] INVALID FOR* More... Atrial fibrillation with RVR ([facility]) [I48.91] INVALID FOR*09/23/2016 More... Heart failure, diastolic, acute ([facility]) [I50.31] INVALID FOR* More... Counseling and coordination of care [Z71.89] INVALID FOR*04/12/2015 More... Monoclonal gammopathy [D47.2] INVALID FOR* Empty sella turcica ([facility]) [E23.6] INVALID FOR* More... Uncontrolled type 2 diabetes mellitus without c*INVALID FOR*09/23/2016 Prescriptions ordered this encounter Disp Refills Start End APIXABAN 5 MG TABLET 03/22/2018 Class: Med Update Route: ORAL Sig: Take 1 tablet by mouth twice daily. FLUTICASONE 50 MCG/ACTUATION NASAL S* 1 Matt* 11 03/22/2018 Class: Med Update Route: EACH NOSTRIL Sig: Use 2 Sprays in each nostril once daily. Rinse mouth after use. LORAZEPAM 0.5 MG TABLET 03/22/2018 04/21/2018 Class: Med Update Route: ORAL Sig: Take 1 tablet by mouth every 6 hours as needed for up to 30 days. THERAPEUTIC MULTIVITAMIN TABLET 03/22/2018 Class: Med Update Route: ORAL Sig: Take 1 tablet by mouth once daily. OXYCODONE 5 MG CAPSULE 03/22/2018 04/22/2018 Class: Med Update Si tablet every 6 hour PRN moderate pain and 2 tablets every 6 hours PRN severe pain Earliest Fill Date: 03/22/18 VENLAFAXINE ER 75 MG CAPSULE,EXTENDE* 03/22/2018 Class: Med Update Route: ORAL Sig: Take 1 capsule by mouth twice daily. GABAPENTIN 400 MG CAPSULE 03/22/2018 04/21/2018 Class: Med Update Route: ORAL Sig: Take 1 capsule by mouth daily at bedtime for 30 days. INSULIN GLARGINE (U-100) 100 UNIT/ML* 5 Pen 3 03/22/2018 Route: SUBCUTANEOUS Sig: Inject 10 Units subcutaneously daily at bedtime. Medications Discontinued During This Encounter warfarin (COUMADIN) 1 mg tablet 30 t* 5 11/29/2017 03/22/2018 Class: Med Update Simg MWF and 11mg other days or as directed Disc: Reason for discontinue is not on file. Cosign accepted by RAJESH HOLMAN MD[[id number]] on 11/29/2017 3:49 PM warfarin (COUMADIN) 10 mg tablet 30 t* 11 11/29/2017 03/22/2018 Class: Med Update Simg MWF and 11mg other days or as directed Disc: Reason for discontinue is not on file. Cosign accepted by RAJESH HOLMAN MD[[id number]] on 11/29/2017 3:49 PM metFORMIN (GLUCOPHAGE) 500 mg tablet 360 * 3 11/01/2017 03/22/2018 Sig: TAKE TWO TABLETS BY MOUTH TWICE DAILY Disc: Reason for discontinue is not on file. lisinopril (ZESTRIL, PRINIVIL) 10 mg* 90 t* 3 11/01/2017 03/22/2018 Route: ORAL Sig: Take 1 tablet by mouth once daily. Disc: Reason for discontinue is not on file. Insulin Syringe-Needle U-100 0.3 mL * 150 * 3 10/26/2017 03/22/2018 Sig: USE ONE SYRINGE FOR EACH INSULIN DOSE/ 5 PER DAY Disc: Reason for discontinue is not on file. citalopram (CELEXA) 40 mg tablet 90 t* 3 10/05/2017 03/22/2018 Route: ORAL Sig: Take 1 tablet by mouth once daily. Disc: Reason for discontinue is not on file. LANTUS SOLOSTAR 100 unit/mL (3 mL) i* 5 Pen 11 07/21/2017 03/22/2018 Sig: Inject 46 units subcutaneously once daily Disc: Reason for discontinue is not on file. warfarin (COUMADIN) 2 mg tablet 90 t* 1 06/28/2017 03/22/2018 Class: Med Update Simg Tues and Thurs and 11 mg all other days. or as directed Disc: Reason for discontinue is not on file. Cosign accepted by RAJESH HOLMAN MD[[id number]] on 06/28/2017 6:30 PM albuterol HFA (PROAIR HFA) 90 mcg/ac* 05/31/2017 03/22/2018 Class: Med Update Si puffs every 4-[address] SOB Per [address] Rader Disc: Reason for discontinue is not on file. torsemide (DEMADEX) 20 mg tablet 60 t* 11 04/12/2017 03/22/2018 Cmt: This prescription was filled on 04/06/2017. Any refills authorized will be placed on file. Sig: TAKE ONE TABLET BY MOUTH TWICE DAILY Disc: Reason for discontinue is not on file. glipiZIDE (GLUCOTROL) 10 mg tablet 180 * 3 03/19/2017 03/22/2018 Route: ORAL Sig: Take 1 tablet by mouth twice daily before meals. Disc: Reason for discontinue is not on file. torsemide (DEMADEX) 20 mg tablet 60 t* 11 01/21/2017 03/22/2018 Class: Med Update Route: ORAL Sig: Take 1 tablet by mouth twice daily. Disc: Reason for discontinue is not on file. Albuterol Sulfate 1.25 mg/3 mL nebul* 75 mL 2 10/27/2016 03/22/2018 Cmt: This prescription was filled today(10/23/2016). Any refills authorized will be placed on file. Sig: USE ONE vial in NEBULIZER EVERY 6 HOURS NEEDED Disc: Reason for discontinue is not on file. digoxin (LANOXIN) 250 mcg tablet 90 t* 3 09/17/2016 03/22/2018 Sig: Take 1 tablet by mouth once daily. Disc: Reason for discontinue is not on file. LORazepam (ATIVAN) 1 mg tablet 60 t* 1 10/26/2017 03/22/2018 Class: Print RX Route: ORAL Sig: Take 1 tablet by mouth three times daily as needed for up to 30 days. Disc: Reason for discontinue is not on file. gabapentin (NEURONTIN) 400 mg capsule 120 * 3 11/30/2017 03/22/2018 Route: ORAL Sig: Take 1 capsule by mouth four times daily. Disc: Reason for discontinue is not on file. Disposition: Return in about 9 days (around 03/30/2018). Follow-up and Disposition History Recorded Encounter Status:Closed by MELVINA ALMARAZ on 03/22/18 PROGRESS Observed: 03/18/2018 Status: COMPLETED Source: [place] 2:50 PM [facility] RE[facility]IT[facility] HNO ID: [id number] Author: Rajesh Holman Service: (none) Author Type: Physician Type: Progress Notes Filed: 03/18/2018 4:17 PM Note Text: ok PROGRESS Observed: 03/18/2018 Status: COMPLETED Source: [place] 2:17 PM [facility] HNO ID: [id number] Author: Melvina Emanuel) Sung Service: (none) Author Type: Registered Nurse Type: Progress Notes Filed: 03/18/2018 2:19 PM Note Text: PRIMARY CARE COORDINATION QUICK NOTE Provider Action/FYI Will you sign [facility] Home Health orders for SN, PT and OT? Patient identified by name and date . TC from Wandy at [facility], pt is being discharged from [facility] today. Asking if PCP will sign orders for long-term, PT and OT. States she thinks they will also be getting some dressing change orders for pt's legs and will need to teach a family member dsg changes. Melvina Almaraz RN PROGRESS Observed: 03/17/2018 Status: COMPLETED Source: [place] 12:26 PM [facility] RE[facility] HNO ID: [id number] Author: Melvina Emanuel) Sung Service: (none) Author Type: Registered Nurse Type: Progress Notes Filed: 03/17/2018 12:26 PM Note Text: Noted. Will call for TCM on 03/21 Melvina Almaraz RN March 17, 2018 12:26 PM PROGRESS Observed: 03/16/2018 Status: COMPLETED Source: [place] 9:18 AM [facility] RE[facility] HNO ID: [id number] Author: Lizzie Springer Cma Service: (none) Author Type: (none) Type: Progress Notes Filed: 03/18/2018 4:17 PM Note Text: TRANSITION CARE MANAGEMENT (TCM) DISCHARGE FROM POST ACUTE FACILITY POST ACUTE TRANSFER SUMMARY: - Spoke to: Erin CELIS at [facility] [place]) - Pt will be discharged Home on 03/18/18. - Records requested (discharge summary from SNF: discharge medication list discharge instructionslabs and imaging). PROGRESS Observed: 03/16/2018 Status: COMPLETED Source: [place] 9:17 AM [facility] RE[facility] HNO ID: [id number] Author: Lizzie Springer Cma Service: (none) Author Type: (none) Type: Progress Notes Filed: 03/16/2018 9:19 AM Note Text: I spoke with Erin and she states Vicki will be discharged this Wednesday03/18/18. NATHANAEL Observed: 03/16/2018 Status: COMPLETED Source: [place] 12:00 AM [facility] REPOSITORY Patient Outreach ([facility]) HERNANDEZVICKI ([id number]) 1960 F Date Time Provider Department 03/16/18 MELVINA ALMARAZ (RN) [facility] During your visit today, we recorded the following information about you: Lizzie Springer [facility] 03/18/2018 4:17 PM Signed TRANSITION CARE MANAGEMENT (TCM) DISCHARGE FROM POST ACUTE FACILITY POST ACUTE TRANSFER SUMMARY: - Spoke to: Erin (MEÑO at [facility] [place]) - Pt will be discharged Home on 03/18/18. - Records requested (discharge summary from SNF: discharge medication list discharge instructionslabs and imaging). Melvina Almaraz RN 03/17/2018 12:26 PM Signed Noted. Will call for TCM on 03/21 Melvina Almaraz RN March 17, 2018 12:26 PM Melvina Almaraz RN 03/18/2018 2:19 PM Signed PRIMARY CARE COORDINATION QUICK NOTE Provider Action/FYI Will you sign [facility] Home Health orders for SN, PT and OT? Patient identified by name and date . ANUPAM from Wandy at [facility] HH, pt is being discharged from [facility] today. Asking if PCP will sign orders for long-term, PT and OT. States she thinks they will also be getting some dressing change orders for pt's legs and will need to teach a family member dsg changes. EVGENY Olivera MD 03/18/2018 4:17 PM Signed ok Allergies As of Date: 03/16/2018 Noted Allergy Reaction CODEINE 11/19/2010 14 - Other: See Comments Comments: Itching, vomitting LATEX 11/19/2010 14 - Other: See Comments Comments: Itching,hives,dyspnea PHENOBARBITAL 11/19/2010 14 - Other: See Comments Comments: Nausea, itching TALWIN (PENTAZOCINE LACTATE) 11/19/2010 1 - Mental Status Change Comments: Hallucinations TREE NUT 02/07/2015 10 - Anaphylaxis Date Reviewed: 06/08/2017 Reviewed by: Karena Shaikh Cadd Drafter - Fully Assessed Reason for Visit: Transition Of Care [4074] Prescriptions as of 03/16/2018 Sig: GABAPENTIN 400 MG CAPSULE Take 1 capsule by mouth four * WARFARIN 1 MG TABLET 10mg MWF and 11mg other days* WARFARIN 10 MG TABLET 10mg MWF and 11mg other days * METFORMIN 500 MG TABLET TAKE TWO TABLETS BY MOUTH TWI* DILTIAZEM SR 120 MG 24 HR CAP Take 1 capsule by mouth once * LISINOPRIL 10 MG TABLET Take 1 tablet by mouth once d* PEN NEEDLE, DIABETIC 29 GAUGE* Use one needle per dose. 5 p* INSULIN SYRINGE-NEEDLE U-100 * USE ONE SYRINGE FOR EACH INSU* INSULIN LISPRO (U-100) 100 UN* Inject 14 Units subcutaneousl* CITALOPRAM 40 MG TABLET Take 1 tablet by mouth once d* EXENATIDE 5 MCG/DOSE (250 MCG* INJECT 5 mcg SUBCUTANEOUSLY T* LANTUS SOLOSTAR U-100 INSULIN* Inject 46 units subcutaneousl* WARFARIN 2 MG TABLET 10mg and and 11 * IPRATROPIUM-ALBUTEROL 0.5 MG-* Inhale 3 mL as instructed kris* ALBUTEROL SULFATE HFA 90 MCG/* 2 puffs every 4-6 hrs PRN SOB* BUDESONIDE-FORMOTEROL HFA 160* Inhale 2 Puffs as instructed * COMPOUNDED PRESCRIPTION Oxygen for home @ 2L per BIPA* TORSEMIDE 20 MG TABLET TAKE ONE TABLET BY MOUTH TWIC* NADOLOL 40 MG TABLET TAKE THREE TABLETS BY MOUTH D* GLIPIZIDE 10 MG TABLET Take 1 tablet by mouth twice * TORSEMIDE 20 MG TABLET Take 1 tablet by mouth twice * ALBUTEROL SULFATE 1.25 MG/3 M* USE ONE vial in NEBULIZER KRIS* DIGOXIN 250 MCG TABLET Take 1 tablet by mouth once d* POLYETHYLENE GLYCOL 3350 17 G* Take 1 Packet by mouth as nee* CPAP ACETAMINOPHEN ER 650 MG TABLE* Take 650 mg by mouth every 8 * Problem List As Of Date 03/16/2018 Noted Resolved Diabetes (HCC) [E11.9] INVALID FOR* More... Atrial fibrillation (HCC) [I48.91] INVALID FOR* Priority: A More... Lymphedema [I89.0] INVALID FOR* Priority: B More... Heart failure, systolic and diastolic, acute on*INVALID FOR*12/31/2014 More... Obesity, morbid, BMI 50 or higher (HCC) [E66.01]INVALID FOR* More... Hypertension [I10] INVALID FOR* More... HUNTER (obstructive sleep apnea) [G47.33] INVALID FOR* More... Pulmonary HTN (HCC) [I27.20] INVALID FOR* More... Atrial fibrillation with RVR (HCC) [I48.91] INVALID FOR*09/23/2016 More... Heart failure, diastolic, acute (HCC) [I50.31] INVALID FOR* More... Counseling and coordination of care [Z71.89] INVALID FOR*04/12/2015 More... Monoclonal gammopathy [D47.2] INVALID FOR* Empty sella turcica (HCC) [E23.6] INVALID FOR* More... Uncontrolled type 2 diabetes mellitus without c*INVALID FOR*09/23/2016 Encounter Status:Closed by MELVINA ALMARAZ on 03/18/18 PROGRESS Observed: 03/10/2018 Status: COMPLETED Source: [place] 9:05 AM [facility] RE[facility]IT[facility] HNO ID: [id number] Author: Lizzie Springer Cma Service: (none) Author Type: (none) Type: Progress Notes Filed: 03/10/2018 9:10 AM Note Text: I called and spoke with Erin who states Vicki is recovering nicely and making progress. She's wanting to be discharged next Wednesday. direct support worker plans on meeting with Vicki today to discuss this further. I will call back in the middle of next week and see if discharge is in place. PROGRESS Observed: 03/02/2018 Status: COMPLETED Source: [place] 11:05 AM [facility] REPOSIT[facility] HNO ID: [id number] Author: Lizzie Springer Cma Service: (none) Author Type: (none) Type: Progress Notes Filed: 03/02/2018 11:11 AM Note Text: Erin returned my call and left a message on my voicemail. She states Vicki is making good progress and they're currently in the process of recerting her through insurance since she's showing progress. No active discharge plans as of right now. PROGRESS Observed: 03/02/2018 Status: COMPLETED Source: [place] 10:28 AM [facility] RE[facility] HNO ID: [id number] Author: Lizzie Springer Cma Service: (none) Author Type: (none) Type: Progress Notes Filed: 03/02/2018 10:39 AM Note Text: I spoke with Erin, but she was in the middle of something and needed to call me back. I gave her my direct number and she will return the call when able. PROGRESS Observed: 02/24/2018 Status: COMPLETED Source: [place] 9:01 AM [facility] RE[facility]IT[facility] HNO ID: [id number] Author: Lizzie Springer Cma Service: (none) Author Type: (none) Type: Progress Notes Filed: 02/24/2018 9:02 AM Note Text: I called to speak with Erin, but she's out the rest of this week. I did get verification that she's still there, but will call back Wednesday (when Erin returns) for any updates. PROGRESS Observed: 02/17/2018 Status: COMPLETED Source: [place] 11:55 AM [facility] RE[facility] HNO ID: [id number] Author: Lizzie Springer Cma Service: (none) Author Type: (none) Type: Progress Notes Filed: 02/22/2018 11:51 AM Note Text: I spoke with Erin and she states there was an Insurance problem due to Vicki not showing enough progress. She had a meeting with her son today. Insurance willing to covering outpatient therapy. They came up with a plan and she will remain there until she's able to go home safely. She's non weight bearing. It takes two therapist to hang on to her to get up and walk. She was able to transfer to toilet yesterday with little help. Erin states her Leg wounds are healing nicely. I will call back next week to check in. PROGRESS Observed: 02/16/2018 Status: COMPLETED Source: [place] 2:29 PM [facility] RE[facility] HNO ID: [id number] Author: Lizzie Springer [facility] Service: (none) Author Type: (none) Type: Progress Notes Filed: 02/16/2018 2:34 PM Note Text: Left message with wound care coordinator to have Erin call me with any updates since Erin was in a meeting, unavailable to talk. PROGRESS Observed: 02/10/2018 Status: COMPLETED Source: [place] 11:42 AM [facility] RE[facility] HNO ID: [id number] Author: Melvina Emanuel) Sung Service: (none) Author Type: Registered Nurse Type: Progress Notes Filed: 02/10/2018 11:47 AM Note Text: PRIMARY CARE COORDINATION FOLLOW-UP NOTE Provider Action/FYI Pt is now at [facility] for rehab Has no wound vacs, IVs, PCC line, or antibiotics Wounds healing and working on standing Wt was 411 at [facility], now 339 lbs Instructed pt to inform SW of PCC name and phone number and call during discharge planning Patient identified by name and date of . YES Spoke to patient Summary: TC from patient states she is at [facility] Yesterday she was up in W/C x 4 hours. She can stand for short time with PT holding gait belt. They will begin working on RLE while standing. It has the worse lymphedema but is softening a bit. Wounds are dressed with Aquacel and Kerlex, daily change. Wounds are markedly smaller and no longer painful with standing. BS are good with infrequent spikes due to portion size of carbs, working with manager utilization management [employer] Manager plan for next outreach: Will follow up during discharge planning Signature Melvina Almaraz RN February 10, 2018 PROGRESS Observed: 02/10/2018 Status: COMPLETED Source: [place] 9:36 AM [facility] REPOSITORY HNO ID: [id number] Author: Lizzie Springer [facility] Service: (none) Author Type: (none) Type: Progress Notes Filed: 02/10/2018 9:43 AM Note Text: I called and spoke with SW at [facility], and she states they just had a care conference yesterday, but the daughter didn't show up. They had a conference scheduled last week, but Vicki got a nose bleed which put her back in the hospital so they had to r/s to yesterday. SW is going to contact Vickis daughter to see why she didn't show yesterday and give her an update on the conference. She states daughter would like to take Vicki home, but no plans have been arranged as of yet. states Vicki is getting better slowly. She's able to take a few steps. states she's getting better little by little. PROGRESS Observed: 02/10/2018 Status: COMPLETED Source: [place] 7:19 AM [facility] REPOSITORY HNO ID: [id number] Author: Lizzie Springer [employer] Service: (none) Author Type: (none) Type: Progress Notes Filed: 02/10/2018 7:21 AM Note Text: I received a call back from [facility] on my voicemail and she states that Vicki was discharged from [facility] and transferred to [facility] on 02/01/18. I will call later today to get an update from [facility]. NATHANAEL Observed: 02/10/2018 Status: COMPLETED Source: [place] 12:00 AM [facility] REPOSITORY Patient Outreach (FAMPWS) VICKI HERNANDEZ ([id number]) 1960 F Date Time Provider Department 02/10/18 MELVINA ALMARAZ) MARTAPWS During your visit today, we recorded the following information about you: Melvina Almaraz RN 02/10/2018 11:47 AM Signed PRIMARY CARE COORDINATION FOLLOW-UP NOTE Provider Action/FYI Pt is now at [facility] for rehab Has no wound vacs, IVs, PCC line, or antibiotics Wounds healing and working on standing Wt was 411 at [facility], now 339 lbs Instructed pt to inform SW of PCC name and phone number and call during discharge planning Patient identified by name and date of . YES Spoke to patient Summary: TC from patient states she is at [facility] Yesterday she was up in W/C x 4 hours. She can stand for short time with PT holding gait belt. They will begin working on RLE while standing. It has the worse lymphedema but is softening a bit. Wounds are dressed with Aquacel and Kerlex, daily change. Wounds are markedly smaller and no longer painful with standing. BS are good with infrequent spikes due to portion size of carbs, working with manager utilization management [employer] Manager plan for next outreach: Will follow up during discharge planning Signature Melvina Almaraz RN February 10, 2018 Allergies As of Date: 02/10/2018 Noted Allergy Reaction CODEINE 11/19/2010 14 - Other: See Comments Comments: Itching, vomitting LATEX 11/19/2010 14 - Other: See Comments Comments: Itching,hives,dyspnea PHENOBARBITAL 11/19/2010 14 - Other: See Comments Comments: Nausea, itching TALWIN (PENTAZOCINE LACTATE) 11/19/2010 1 - Mental Status Change Comments: Hallucinations TREE NUT 02/07/2015 10 - Anaphylaxis Date Reviewed: 06/08/2017 Reviewed by: Karena Shaikh [employer]fter - Fully Assessed Reason for Visit: Transition Of Care [4074] Prescriptions as of 02/10/2018 Sig: GABAPENTIN 400 MG CAPSULE Take 1 capsule by mouth four * WARFARIN 1 MG TABLET 10mg MWF and 11mg other days* WARFARIN 10 MG TABLET 10mg MWF and 11mg other days * METFORMIN 500 MG TABLET TAKE TWO TABLETS BY MOUTH TWI* DILTIAZEM SR 120 MG 24 HR CAP Take 1 capsule by mouth once * LISINOPRIL 10 MG TABLET Take 1 tablet by mouth once d* PEN NEEDLE, DIABETIC 29 GAUGE* Use one needle per dose. 5 p* INSULIN SYRINGE-NEEDLE U-100 * USE ONE SYRINGE FOR EACH INSU* INSULIN LISPRO (U-100) 100 UN* Inject 14 Units subcutaneousl* CITALOPRAM 40 MG TABLET Take 1 tablet by mouth once d* EXENATIDE 5 MCG/DOSE (250 MCG* INJECT 5 mcg SUBCUTANEOUSLY T* LANTUS SOLOSTAR U-100 INSULIN* Inject 46 units subcutaneousl* WARFARIN 2 MG TABLET 10mg Tu and and 11 * IPRATROPIUM-ALBUTEROL 0.5 MG-* Inhale 3 mL as instructed kris* ALBUTEROL SULFATE HFA 90 MCG/* 2 puffs every 4-6 hrs PRN SOB* BUDESONIDE-FORMOTEROL HFA 160* Inhale 2 Puffs as instructed * COMPOUNDED PRESCRIPTION Oxygen for home @ 2L per BIPA* TORSEMIDE 20 MG TABLET TAKE ONE TABLET BY MOUTH TWIC* NADOLOL 40 MG TABLET TAKE THREE TABLETS BY MOUTH D* GLIPIZIDE 10 MG TABLET Take 1 tablet by mouth twice * TORSEMIDE 20 MG TABLET Take 1 tablet by mouth twice * ALBUTEROL SULFATE 1.25 MG/3 M* USE ONE vial in NEBULIZER KRIS* DIGOXIN 250 MCG TABLET Take 1 tablet by mouth once d* POLYETHYLENE GLYCOL 3350 17 G* Take 1 Packet by mouth as nee* CPAP ACETAMINOPHEN ER 650 MG TABLE* Take 650 mg by mouth every 8 * Problem List As Of Date 02/10/2018 Noted Resolved Diabetes (HCC) [E11.9] INVALID FOR* More... Atrial fibrillation (HCC) [I48.91] INVALID FOR* Priority: A More... Lymphedema [I89.0] INVALID FOR* Priority: B More... Heart failure, systolic and diastolic, acute on*INVALID FOR*12/31/2014 More... Obesity, morbid, BMI 50 or higher (HCC) [E66.01]INVALID FOR* More... Hypertension [I10] INVALID FOR* More... HUNTER (obstructive sleep apnea) [G47.33] INVALID FOR* More... Pulmonary HTN (HCC) [I27.20] INVALID FOR* More... Atrial fibrillation with RVR (HCC) [I48.91] INVALID FOR*09/23/2016 More... Heart failure, diastolic, acute (HCC) [I50.31] INVALID FOR* More... Counseling and coordination of care [Z71.89] INVALID FOR*04/12/2015 More... Monoclonal gammopathy [D47.2] INVALID FOR* Empty sella turcica (HCC) [E23.6] INVALID FOR* More... Uncontrolled type 2 diabetes mellitus without c*INVALID FOR*09/23/2016 Encounter Status:Closed by MELVINA ALMARAZ on 02/10/18 PROGRESS Observed: 02/09/2018 Status: COMPLETED Source: [place] 8:22 AM [facility] REPOSIT[facility] HNO ID: [id number] Author: Lizzie Springer Cma Service: (none) Author Type: (none) Type: Progress Notes Filed: 02/09/2018 8:25 AM Note Text: Transferred to [facility], Elissa, left detailed msg with my direct number for her to return call if any update on discharge planning. PROGRESS Observed: 02/02/2018 Status: COMPLETED Source: [place] 1:49 PM [facility] REPOSIT[facility] HNO ID: [id number] Author: Melvina Emanuel) Sung Service: (none) Author Type: Registered Nurse Type: Progress Notes Filed: 02/02/2018 2:00 PM Note Text: PRIMARY CARE COORDINATION QUICK NOTE Provider Action/FYI FYI PHMA will monitor until discharge from SNF Patient may go to SNF after LTAC Patient identified by name and date . Patient transferred from [facility] to [facility] on 12/29 Hospital diagnoses: DEANGELO with oliguria requiring hemodialysis Severe Bradycardia secondary to Dig Toxicity Vancomycin Toxicity Acute on chronic anemia Acute on chronic diastolic CHF Abscess Of left lower extremity Abscess of right lower extremity Cellulitis of roght leg MRSA infection CNPTOUTREACH Observed: 02/02/2018 Status: COMPLETED Source: [place] 12:00 AM [facility] REPOSITORY Patient Outreach (FAMPWS) VICKI HERNANDEZ ([id number]) 1960 F Date Time Provider Department 02/02/18 MELVINA ALMARAZ (RN) DEANNAWS During your visit today, we recorded the following information about you: Melvina Almaraz RN 02/02/2018 2:00 PM Signed PRIMARY CARE COORDINATION QUICK NOTE Provider Action/TAHIRA HOFFMANN PHMA will monitor until discharge from SNF Patient may go to SNF after LTAC Patient identified by name and date . Patient transferred from [facility] to [facility] on 12/29 Hospital diagnoses: DEANGELO with oliguria requiring hemodialysis Severe Bradycardia secondary to Dig Toxicity Vancomycin Toxicity Acute on chronic anemia Acute on chronic diastolic CHF Abscess Of left lower extremity Abscess of right lower extremity Cellulitis of roght leg MRSA infection Lizzie Springer Cma 02/09/2018 8:25 AM Signed Transferred to [facility] GARCIA left detailed ms with my direct number for her to return call if any update on discharge planning. Lizzie Springer Cma 02/10/2018 7:21 AM Addendum I received a call back from Elissa on my voicemail and she states that Vicki was discharged from [facility] and transferred to [facility] on 02/01/18. I will call later today to get an update from [facility]. Lizzie Springer [facility] 02/10/2018 9:43 AM Addendum I called and spoke with MEÑO at [facility], [facility], and she states they just had a care conference yesterday, but the daughter didn't show up. They had a conference scheduled last week, but Vicki got a nose bleed which put her back in the hospital so they had to r/s to yesterday. MEÑO is going to contact Mariano daughter to see why she didn't show yesterday and give her an update on the conference. She states daughter would like to take Vicki home, but no plans have been arranged as of yet. MEÑO states Vicki is getting better slowly. She's able to take a few steps. MEÑO states she's getting better little by little. Lizzie Nick [facility] 02/16/2018 2:34 PM Signed Left message with wound care coordinator to have Erin call me with any updates since Erin was in a meeting, unavailable to talk. Lizzie Nick [facility] 02/22/2018 11:51 AM Addendum I spoke with Erin and she states there was an Insurance problem due to Vicki not showing enough progress. She had a meeting with her son today. Insurance willing to covering outpatient therapy. They came up with a plan and she will remain there until she's able to go home safely. She's non weight bearing. It takes two therapist to hang on to her to get up and walk. She was able to transfer to toilet yesterday with little help. Erin states her Leg wounds are healing nicely. I will call back next week to check in. Lizzie Nick [facility] 02/24/2018 9:02 AM Signed I called to speak with Erin, but she's out the rest of this week. I did get verification that she's still there, but will call back Wednesday (when Erin returns) for any updates. Lizzie Nick [facility] 03/02/2018 10:39 AM Signed I spoke with Erin, but she was in the middle of something and needed to call me back. I gave her my direct number and she will return the call when able. Lizzie Springer [facility] 03/02/2018 11:11 AM Addendum Erin returned my call and left a message on my voicemail. She states Vicki is making good progress and they're currently in the process of recerting her through insurance since she's showing progress. No active discharge plans as of right now. Lizzie Springer [facility] 03/10/2018 9:10 AM Signed I called and spoke with Erin who states Vicki is recovering nicely and making progress. She's wanting to be discharged next Wednesday. direct support worker plans on meeting with Vicki today to discuss this further. I will call back in the middle of next week and see if discharge is in place. Lizzie Springer [facility] 03/16/2018 9:19 AM Signed I spoke with Erin and she states Vicki will be discharged this Wednesday03/18/18. Allergies As of Date: 02/02/2018 Noted Allergy Reaction CODEINE 11/19/2010 14 - Other: See Comments Comments: Itching, vomitting LATEX 11/19/2010 14 - Other: See Comments Comments: Itching,hives,dyspnea PHENOBARBITAL 11/19/2010 14 - Other: See Comments Comments: Nausea, itching TALWIN (PENTAZOCINE LACTATE) 11/19/2010 1 - Mental Status Change Comments: Hallucinations TREE NUT 02/07/2015 10 - Anaphylaxis Date Reviewed: 06/08/2017 Reviewed by: Karena Shaikh [facility] - Fully Assessed Reason for Visit: Transition Of Care [4074] Prescriptions as of 02/02/2018 Sig: GABAPENTIN 400 MG CAPSULE Take 1 capsule by mouth four * WARFARIN 1 MG TABLET 10mg MWF and 11mg other days* WARFARIN 10 MG TABLET 10mg MWF and 11mg other days * METFORMIN 500 MG TABLET TAKE TWO TABLETS BY MOUTH TWI* DILTIAZEM SR 120 MG 24 HR CAP Take 1 capsule by mouth once * LISINOPRIL 10 MG TABLET Take 1 tablet by mouth once d* PEN NEEDLE, DIABETIC 29 GAUGE* Use one needle per dose. 5 p* INSULIN SYRINGE-NEEDLE U-100 * USE ONE SYRINGE FOR EACH INSU* INSULIN LISPRO (U-100) 100 UN* Inject 14 Units subcutaneousl* CITALOPRAM 40 MG TABLET Take 1 tablet by mouth once d* EXENATIDE 5 MCG/DOSE (250 MCG* INJECT 5 mcg SUBCUTANEOUSLY T* LANTUS SOLOSTAR U-100 INSULIN* Inject 46 units subcutaneousl* WARFARIN 2 MG TABLET 10mg and and 11 * IPRATROPIUM-ALBUTEROL 0.5 MG-* Inhale 3 mL as instructed kris* ALBUTEROL SULFATE HFA 90 MCG/* 2 puffs every 4-6 hrs PRN SOB* BUDESONIDE-FORMOTEROL HFA 160* Inhale 2 Puffs as instructed * COMPOUNDED PRESCRIPTION Oxygen for home @ 2L per BIPA* TORSEMIDE 20 MG TABLET TAKE ONE TABLET BY MOUTH TWIC* NADOLOL 40 MG TABLET TAKE THREE TABLETS BY MOUTH D* GLIPIZIDE 10 MG TABLET Take 1 tablet by mouth twice * TORSEMIDE 20 MG TABLET Take 1 tablet by mouth twice * ALBUTEROL SULFATE 1.25 MG/3 M* USE ONE vial in NEBULIZER KRIS* DIGOXIN 250 MCG TABLET Take 1 tablet by mouth once d* POLYETHYLENE GLYCOL 3350 17 G* Take 1 Packet by mouth as nee* CPAP ACETAMINOPHEN ER 650 MG TABLE* Take 650 mg by mouth every 8 * Problem List As Of Date 02/02/2018 Noted Resolved Diabetes (HCC) [E11.9] INVALID FOR* More... Atrial fibrillation (HCC) [I48.91] INVALID FOR* Priority: A More... Lymphedema [I89.0] INVALID FOR* Priority: B More... Heart failure, systolic and diastolic, acute on*INVALID FOR*12/31/2014 More... Obesity, morbid, BMI 50 or higher ([facility]) [E66.01]INVALID FOR* More... Hypertension [I10] INVALID FOR* More... HUNTER (obstructive sleep apnea) [G47.33] INVALID FOR* More... Pulmonary HTN (HCC) [I27.20] INVALID FOR* More... Atrial fibrillation with RVR ([facility]) [I48.91] INVALID FOR*09/23/2016 More... Heart failure, diastolic, acute ([facility]) [I50.31] INVALID FOR* More... Counseling and coordination of care [Z71.89] INVALID FOR*04/12/2015 More... Monoclonal gammopathy [D47.2] INVALID FOR* Empty sella turcica (HCC) [E23.6] INVALID FOR* More... Uncontrolled type 2 diabetes mellitus without c*INVALID FOR*09/23/2016 Encounter Status:Closed by MELVINA ALMARAZ on 02/02/18 DISCH.SUM Observed: 02/01/2018 Status: UNK Source: [facility] 9:16 AM [facility] Patient Name: VICKI HERNANDEZ [address] Date of : [address] [place] [id number] Unit Number: [id number] Discharge Summary Patient Status: DIS RCR Attending Doctor: Amadeo Cali MD Service Date: 02/01/18915 Discharge Summary Admit Date Admission Date Time: 12/29/2017 Final Dx/Problem List 1. ASSESSMENT AND PLAN Chief Complaint/HPI wounds legs Reason for Admission Wound care Hospital Course Karen was a 57 years old morbidly obese female who was admitted to [facility] for wound care and medical management. Patient had a history of acute kidney injury secondary to bacteremia and vancomycin toxicity. Nephrology consultation was obtained for dialysis management. Also wound care consultation was obtained as patient chronic wounds on the lower extremity. Patient required wound VAC. Patient had extensive wounds in the lower extremities which required frequent wound VAC changes. Also patient is receiving vancomycin for the MRSA induced infection. Patient did finish the course of the antibiotic without any overt complications. Also patient had underlying atrial fibrillation and her rate was under control throughout the stay. She was receiving Coumadin for anticoagulation and dosage was adjusted based on INR. Patient wounds were gradually receding patient was able to be liberated from 2 wound VAC but continued to need the other wound care. Eventual plan was patient to go back to [facility] for skin transplant however due to current need for antibiotics and wound VAC patient got discharged to long-term facility for further care. Pertinent Physical Findings Physical Exam Neurological / Psychiatric resting comfortably. NAD Neck No Bruit, No Mass, No JVD Respiratory Normal Breathing Effort, Clear Lungs Cardiovascular irregular rhythm, No M / R / G, No Clubbing, No Cyanosis Gastrointestinal Normal Bowel Sounds, No Hepatosplenomegally, Non Tender, No Mass Musculoskeletal No Edema Skin wound VAC is in place. Wound site dry otherwise and appears to be healing well Consults Wound care Labs/Imaging Lab 72hr (CBC/BMP Fishbone) 01/31/18 0755: [id number] Pept Cancelled Condition: Improved, Stable Disposition Usp Facility Disclaimer This dictation was created using voice recognition software. Phonetic and/or minor grammatical errors may exist. eSign Date and Time Amadeo Cali MD Verified/Reviewed by 03/21/18 0913 PROG.NOTE Observed: 01/31/2018 Status: UNK Source: [place] 6:40 AM [facility] Patient Name: VICKI HERNANDEZ [address] Date of : [address] [place] [address] Unit Number: [id number] Progress Note-Physician Patient Status: REG RCR Attending Doctor: Amadeo Cali MD Service Date: 01/31/18639 Subjective S: (2 ROS minimum) Patient seen and examined chart was reviewed overnight events were noted currently feeling well denies any active pain no breathing issues. Objective (ROS) Nursing Vitals Temperature 97.8 pulse 76 respirations 18 blood pressure 118/70. Physical Exam Neurological / Psychiatric resting comfortably. NAD Neck No Bruit, No Mass, No JVD Respiratory Normal Breathing Effort, Clear Lungs Cardiovascular irregular rhythm, No M / R / G, No Clubbing, No Cyanosis Gastrointestinal Normal Bowel Sounds, No Hepatosplenomegally, Non Tender, No Mass Musculoskeletal No Edema Skin wound VAC is in place. Wound site dry otherwise and appears to be healing well Assessment and Plan Conclusion 1. ASSESSMENT AND PLAN Plan Patient is a 57 years old, morbidly obese female [facility] and management of underlying renal impairment. Acute kidney injury secondary to bacteraemia and Vancomycin toxicity: Good urine output. Renal function back to baseline Continue to monitor. Bilateral lower extremity wounds: Continue with the wound care ID on board. Atrial fibrillation: Rate is under control. Patient is otherwise asymptomatic. Continue with eliquis GI prophylaxis: PPI Anemia: stable. Patient scheduled to be discharged tomorrow morning to long-term facility. Patient is aware and is in agreement with the plan. Disclaimer This dictation was created using voice recognition software. Phonetic and/or minor grammatical errors may exist. eSign Date and Time Amadeo Cali MD Verified/Reviewed by 01/31/18 1128 PROG.NOTE Observed: 01/30/2018 Status: UNK Source: [place] 7:26 AM [facility] Patient Name: VICKI HERNANDEZ0 [address] Date of : [address] [place] [address] Unit Number: [id number] Progress Note-Physician Patient Status: REG RCR Attending Doctor: Amadeo Cali MD Service Date: 01/30/18725 Subjective S: (2 ROS minimum) Laboratory Tests Test Result Date Time Chemistry Sodium (136 - 145 MMOL/L) 137 01/24 0412 Potassium (3.5 - 5.1 MMOL/L) 3.9 01/24 0412 Chloride (98 - 107 MMOL/L) 98 01/24 0412 Carbon Dioxide (21 - 32 MMOL/L) 33 H 01/24 0412 Anion Gap (5 - 16 MMOL/L) 6 01/24 0412 BUN (7 - 26 MG/DL) 32 H 01/24 0412 Creatinine (0.510 - 0.950 MG/DL) 1.230 H 01/242 Est GFR ( Amer) (ML/MIN) 54 01/24 0412 Est GFR (Non-Af Amer) (ML/MIN) 45 01/24 0412 BUN/Creatinine Ratio (15 - 24) 26 H 01/24 0412 Glucose (70 - 100 MG/DL) 139 H 01/242 Total Calcium (8.5 - 10.1 MG/DL) 8.4 L 01/242 Phosphorus (2.5 - 4.9 MG/DL) 4.5 12/30 0436 Magnesium (1.6 - 2.6 MG/DL) 1.7 01/08 0553 Iron (50 - 170 UG/DL) 41 L 01/16 0532 TIBC (221 - 481 UG/DL) 241 01/16 0532 Iron Saturation (22 - 44 %) 17 L 01/16 0532 Total Bilirubin (0.2 - 1.0 MG/DL) 0.6 01/242 AST (8 - 34 U/L) 29 01/242 ALT (13 - 61 IU/L) 24 01/242 Alkaline Phosphatase (45 - 117 U/L) 111 01/242 Serum Total Protein (6.0 - 8.5 GM/DL) 7.7 01/242 Albumin (3.2 - 5.0 GM/DL) 2.6 L 06/04 0412 Globulin (2.2 - 4.2 GM/DL) 5.0 H /2 Albumin/Globulin Ratio (0.8 - 2.0) 0.5 L /2 Coagulation INR (0.9 - 1.1) 1.1 01/25 426 PT Normal Mean Secs (9.4 - 12.0 SECONDS) 12.2 H 01/25 426 Hematology WBC (4.5 - 11.0 K/CU MM) 7.3 /2 RBC (3.90 - 5.30 M/CU MM) 2.92 L 01/242 Hgb (11.5 - 15.5 G/DL) 8.5 L /2 Hct (35.0 - 47.0 %) 27.0 L 01/242 MCV (80.0 - 99.0 fl) 92.5 /2 MCHC (32.0 - 36.0 GM/DL) 31.5 L 01/242 RDW (11 - 14.5) 18.0 H 01/25 412 Plt Count (150 - 450 K/CU MM) 245 /2 MPV (9.4 - 12.4) 9.4 /2 Immature Gran % (Auto) (Less than 2 %) 0.4 /2 Abs Immat Gran (auto) (Less than 2 K/CU MM) 0.00 /2 Seg Neutrophils % (45 - 75 %) 59.9 /2 Lymphocytes % (20 - 40 %) 25.0 /2 Monocytes % (2 - 10 %) 9.0 /2 Eosinophils % (0 - 5 %) 5.2 H /2 Basophils % (0 - 2 %) 0.5 /2 Neutrophils # (2.0 - 8.3 K/CU MM) 4.40 /2 Lymphocytes # (0.9 - 4.4 K/CU MM) 1.80 /2 Monocytes # (0.1 - 1.1 K/CU MM) 0.70 /2 Eosinophils # (0 - 0.5 K/CU MM) 0.40 /2 Basophils # (0 - 0.2 K/CU MM) 0.00 01/24 0412 Nucleated RBCs (Less than 1 %) 0.0 01/24 0412 Toxicology Vancomycin Trough (15.0 - 20.0 MCG/ML) 9.0 L 01/10 0426 Random Vancomycin (MCG/ML) 24.2 01/05 0844 Zinc (56 - 134 ug/dL) 71 12/30 0436 Portions of this section were transcribed by LINDA SAINZ on 01/30/18 at 0726 Objective (ROS) Nursing Vitals BP 121/59 General Appearance Pt is doing well. She has no complaints. She is eating breakfast. In no acute distress. She is afebrile. Physical Exam Physical Examination Notes lungs diminished on the bases CVS s1s2 distant abd morbidly obese, soft nontender ext obese with chronic lymphedema, chronic leg wound is present with wound vac in place neuro alert awake oriented x 3 nonfocal exam Assessment and Plan Conclusion 1. Morbid obesity 2. Diabetes type 2, controlled 3. HTN (hypertension) 4. Hyperlipidemia 5. Peripheral neuropathy 6. Wound of lower extremity On Sat 11:43p Jan 29, 2018 LINDA SAINZ wrote bilateral currently on wound vac with plans for further debribement and possible skin grafts as an outpatient 7. Chronic atrial fibrillation 8. Chronic anemia Plan She is planned to transfer to [facility] on wednesday. She remains stable. Portions of this section were transcribed by LINDA SAINZ on 01/30/18 at 0726 Disclaimer This dictation was created using voice recognition software. Phonetic and/or minor grammatical errors may exist. eSign Date and Time Jesus Smith MD Verified/Reviewed by 01/31/18 1443 PROG.NOTE Observed: 01/29/2018 Status: UNK Source: [facility] 7:27 AM [facility] Patient Name: VICKI HERNANDEZ [address] Date of : [address] [place] [address] Unit Number: [id number] Progress Note-Physician Patient Status: REG RCR Attending Doctor: Amadeo Cali MD Service Date: 01/29/18 07 Subjective S: (2 ROS minimum) Laboratory Tests Test Result Date Time Chemistry Sodium (136 - 145 MMOL/L) 137 01/24 0412 Potassium (3.5 - 5.1 MMOL/L) 3.9 01/242 Chloride (98 - 107 MMOL/L) 98 01/24 0412 Carbon Dioxide (21 - 32 MMOL/L) 33 H 01/242 Anion Gap (5 - 16 MMOL/L) 6 01/24 0412 BUN (7 - 26 MG/DL) 32 H 01/242 Creatinine (0.510 - 0.950 MG/DL) 1.230 H 01/25 412 Est GFR ( Amer) (ML/MIN) 54 01/25 412 Est GFR (Non-Af Amer) (ML/MIN) 45 01/25 412 BUN/Creatinine Ratio (15 - 24) 26 H 01/242 Glucose (70 - 100 MG/DL) 139 H 01/25 412 Total Calcium (8.5 - 10.1 MG/DL) 8.4 L 01/25 412 Phosphorus (2.5 - 4.9 MG/DL) 4.5 12/31 435 Magnesium (1.6 - 2.6 MG/DL) 1.7 01/08 0553 Iron (50 - 170 UG/DL) 41 L 01/16 0532 TIBC (221 - 481 UG/DL) 241 01/16 0532 Iron Saturation (22 - 44 %) 17 L 01/16 0532 Total Bilirubin (0.2 - 1.0 MG/DL) 0.6 01/25 412 AST (8 - 34 U/L) 29 01/25 412 ALT (13 - 61 IU/L) 24 01/25 412 Alkaline Phosphatase (45 - 117 U/L) 111 01/242 Serum Total Protein (6.0 - 8.5 GM/DL) 7.7 01/25 412 Albumin (3.2 - 5.0 GM/DL) 2.6 L 01/25 412 Globulin (2.2 - 4.2 GM/DL) 5.0 H 01/25 412 Albumin/Globulin Ratio (0.8 - 2.0) 0.5 L 01/25 412 Coagulation INR (0.9 - 1.1) 1.1 01/25 426 PT Normal Mean Secs (9.4 - 12.0 SECONDS) 12.2 H 01/25 426 Hematology WBC (4.5 - 11.0 K/CU MM) 7.3 2 RBC (3.90 - 5.30 M/CU MM) 2.92 L /2 Hgb (11.5 - 15.5 G/DL) 8.5 L /2 Hct (35.0 - 47.0 %) 27.0 L /2 MCV (80.0 - 99.0 fl) 92.5 /2 MCHC (32.0 - 36.0 GM/DL) 31.5 L 01/242 RDW (11 - 14.5) 18.0 H 01/242 Plt Count (150 - 450 K/CU MM) 245 /2 MPV (9.4 - 12.4) 9.4 01/242 Immature Gran % (Auto) (Less than 2 %) 0.4 /2 Abs Immat Gran (auto) (Less than 2 K/CU MM) 0.00 01/242 Seg Neutrophils % (45 - 75 %) 59.9 /2 Lymphocytes % (20 - 40 %) 25.0 /2 Monocytes % (2 - 10 %) 9.0 /2 Eosinophils % (0 - 5 %) 5.2 H 01/242 Basophils % (0 - 2 %) 0.5 /2 Neutrophils # (2.0 - 8.3 K/CU MM) 4.40 /2 Lymphocytes # (0.9 - 4.4 K/CU MM) 1.80 /2 Monocytes # (0.1 - 1.1 K/CU MM) 0.70 01/242 Eosinophils # (0 - 0.5 K/CU MM) 0.40 /2 Basophils # (0 - 0.2 K/CU MM) 0.00 01/242 Nucleated RBCs (Less than 1 %) 0.0 01/242 Toxicology Vancomycin Trough (15.0 - 20.0 MCG/ML) 9.0 L 01/10 426 Random Vancomycin (MCG/ML) 24.2 01/05 0844 Zinc (56 - 134 ug/dL) 71 12/30 0436 Portions of this section were transcribed by LINDA SAINZ on 01/29/18 at 0752 Objective (ROS) Nursing Vitals temp 96.9; HR 92; resps 20; BP 121/59; o2 96% General Appearance Pt states that she is doing well. She is anxious to go home. She currently has no pain. She is sitting up in bed. She seems pleasant in no acute distress. Physical Exam Neurological / Psychiatric Affect Normal Physical Examination Notes lungs diminished on the bases CVS s1s2 distant abd morbidly obese, soft nontender ext obese with chronic lymphedema, chronic leg wound is present with wound vac in place neuro alert awake oriented x 3 nonfocal exam Diagnostic Data: On the last cbc done on the 4th her wbc 7,000 hgb chronically low at 8.5 Portions of this section were transcribed by LINDA SAINZ on 01/29/18 at 2334 Assessment and Plan Conclusion 1. Morbid obesity 2. Diabetes type 2, controlled 3. HTN (hypertension) 4. Hyperlipidemia 5. Peripheral neuropathy 6. Wound of lower extremity bilateral currently on wound vac with plans for further debribement and possible skin grafts as an outpatient 7. Chronic atrial fibrillation 8. Chronic anemia Plan Will continue current treatment, seems to be improving. Apparently she is being evaluated for transfer to a [place] to complete her IV abx and wound care there. Portions of this section were transcribed by LINDA SAINZ on 01/29/18 at 2334 Disclaimer This dictation was created using voice recognition software. Phonetic and/or minor grammatical errors may exist. eSign Date and Time Jesus Smith MD Verified/Reviewed by 01/29/18 2703 PROG.NOTE Observed: 01/28/2018 Status: UNK Source: [facility] 9:00 AM [facility] Patient Name: VICKI HERNANDEZ [address] Date of : [address] [place] [address] Unit Number: [id number] Progress Note-Physician Patient Status: REG RCR Attending Doctor: Amadeo Cali MD Service Date: 01/28/18 0900 Subjective S: (2 ROS minimum) Clau is feeling good denies any active pain no shortness of breath slept well last night. Patient aware of the discharge plan. Objective (ROS) Nursing Vitals Temperature 96.8 pulse 76 respirations 18 blood pressure 115/70. Physical Exam Neurological / Psychiatric resting comfortably. NAD Neck No Bruit, No Mass, No JVD Respiratory Normal Breathing Effort, Clear Lungs Cardiovascular irregular rhythm, No M / R / G, No Clubbing, No Cyanosis Gastrointestinal Normal Bowel Sounds, No Hepatosplenomegally, Non Tender, No Mass Musculoskeletal No Edema Skin wound VAC is in place. Wound site dry otherwise and appears to be healing well Assessment and Plan Conclusion 1. ASSESSMENT AND PLAN Plan Patient is a 57 years old, morbidly obese female who [facility] and management of underlying renal impairment. Acute kidney injury secondary to bacteraemia and Vancomycin toxicity: Good urine output. Renal function back to baseline Continue to monitor. Bilateral lower extremity wounds: Continue with the wound care ID on board. Discharge planning is in progress. Atrial fibrillation: Rate is under control. Patient is otherwise asymptomatic. Continue with eliquis GI prophylaxis: PPI Anemia: stable. Patient scheduled to be discharged Wednesday morning to long-term facility. Case discussed with the nursing staff. Disclaimer This dictation was created using voice recognition software. Phonetic and/or minor grammatical errors may exist. eSign Date and Time Amadeo Cali MD Verified/Reviewed by 01/28/18900 PROG.NOTE Observed: 01/27/2018 Status: UNK Source: [facility] 8:21 AM [facility] Patient Name: VICKI HERNANDEZ [address] Date of : [address] [place] [address] Unit Number: [id number] Progress Note-Physician Patient Status: REG RCR Attending Doctor: Amadeo Cali MD Service Date: 01/27/18820 Subjective S: (2 ROS minimum) Patient seen and examined chart was reviewed overnight events noted. Currently sleeping. Arousable though. Objective (ROS) Nursing Vitals Temperature 97.7 pulse 107 respirations 18 blood pressure 127/67 Physical Exam Neurological / Psychiatric resting comfortably. NAD Neck No Bruit, No Mass, No JVD Respiratory Normal Breathing Effort, Clear Lungs Cardiovascular irregular rhythm, No M / R / G, No Clubbing, No Cyanosis Gastrointestinal Normal Bowel Sounds, No Hepatosplenomegally, Non Tender, No Mass Musculoskeletal No Edema Skin wound VAC is in place. Wound site dry otherwise and appears to be healing well Assessment and Plan Conclusion 1. ASSESSMENT AND PLAN Plan Patient is a 57 years old, morbidly obese female who is admitted to [facility] for further wound care and management of underlying renal impairment. Acute kidney injury secondary to bacteraemia and Vancomycin toxicity: Good urine output. Renal function back to baseline Continue to monitor. Bilateral lower extremity wounds: Continue with the wound care ID on board. Discharge planning is in progress. Atrial fibrillation: Rate is under control. Patient is otherwise asymptomatic. Continue with eliquis GI prophylaxis: PPI Anemia: stable. Disclaimer This dictation was created using voice recognition software. Phonetic and/or minor grammatical errors may exist. eSign Date and Time Amadeo Cali MD Verified/Reviewed by 01/27/18 0849 PROG.NOTE Observed: 01/26/2018 Status: UNK Source: [facility] 8:19 AM [facility] Patient Name: VICKI HERNANDEZ [address] Date of : 56 [place], [place] [address] Unit Number: [id number] Progress Note-Physician Patient Status: REG RCR Attending Doctor: Amadeo Cali MD Service Date: 01/26/18818 Subjective S: (2 ROS minimum) Patient seen and examined chart was reviewed overnight events noted. Feels well pain is under control. No acute overnight events at this time. Objective (ROS) Nursing Vitals Temperature 98.2 pulse 86 respirations 16 blood pressure 122/78 Physical Exam Neurological / Psychiatric Alert, Orientation X3 HEENT No Trauma, EOMI, PERRL Neck No Bruit, No Mass, No JVD Respiratory Normal Breathing Effort, Clear Lungs Cardiovascular irregular rhythm, No M / R / G, No Clubbing, No Cyanosis Gastrointestinal Normal Bowel Sounds, No Hepatosplenomegally, Non Tender, No Mass Musculoskeletal No Edema Skin wound VAC is in place. Wound site dry otherwise and appears to be healing well. Assessment and Plan Conclusion 1. ASSESSMENT AND PLAN Plan Patient is a 57 years old, morbidly obese female who is admitted to [facility] for further wound care and management of underlying renal impairment. Acute kidney injury secondary to bacteraemia and Vancomycin toxicity: Good urine output. Renal function back to baseline Continue to monitor. Bilateral lower extremity wounds: Continue with the wound care ID on board. Discharge planning is in progress. Atrial fibrillation: Rate is under control. Patient is otherwise asymptomatic. Continue with eliquis GI prophylaxis: PPI Anemia: stable. Disclaimer This dictation was created using voice recognition software. Phonetic and/or minor grammatical errors may exist. eSign Date and Time Amadeo Cali MD Verified/Reviewed by 01/27/18819 PROG.NOTE Observed: 01/25/2018 Status: UNK Source: [facility] 8:23 AM [facility] Patient Name: VICKI HERNANDEZ [address] Date of : [address] [place] [address] Unit Number: [id number] Progress Note-Physician Patient Status: REG RCR Attending Doctor: Amadeo Cali MD Service Date: 01/25/18822 Subjective S: (2 ROS minimum) Patient seen and examined chart was reviewed overnight events noted currently resting comfortably in no acute overnight events were noted. Anus under control no breathing difficulties no trouble with the bowel movements. Objective (ROS) Nursing Vitals Temperature 98.0 pulse 80 respirations 18 blood pressure 120/74 Physical Exam Neurological / Psychiatric Alert, Orientation X3 HEENT No Trauma, EOMI, PERRL Neck No Bruit, No Mass, No JVD Respiratory Normal Breathing Effort, Clear Lungs Cardiovascular irregular rhythm, No M / R / G, No Clubbing, No Cyanosis Gastrointestinal Normal Bowel Sounds, No Hepatosplenomegally, Non Tender, No Mass Musculoskeletal No Edema Skin wound VAC is in place in right leg lower one third lateral aspect site is gradually receding granulation tissue noted at the edges. No eythema present in the legs. Wound VAC is also in place in the Left leg lower one third showing signs of healing. Dressing left ankle. No active discharge. Diagnostic Data: Lab 24hr (CBC/BMP [facility]) 01/25/18 0426: INR 1.1, PT Normal Mean Secs 12.2 H Assessment and Plan Conclusion 1. ASSESSMENT AND PLAN Plan Patient is a 57 years old, morbidly obese female who [facility] and management of underlying renal impairment. Acute kidney injury secondary to bacteraemia and Vancomycin toxicity: Good urine output. Renal function back to baseline Continue to monitor. Bilateral lower extremity wounds: Continue with the wound care ID on board. Discharge planning is in progress. Atrial fibrillation: Rate is under control. Patient is otherwise asymptomatic. Continue with eliquis GI prophylaxis: PPI Anemia: stable. Discharge planning is in progress. Disclaimer This dictation was created using voice recognition software. Phonetic and/or minor grammatical errors may exist. eSign Date and Time Amadeo Cali MD Verified/Reviewed by 01/25/18 0825 PT Collected: 01/25/2018 Status: F Source: [facility] 4:26 AM [facility] REPOSITORY Order Comment: [place]: M TYPE CODE TESTS RESULT OUT OF RANGE REFERENCE UNITS LAB L300.73015 0.9-1.1 Normal INR 1.1 Result Comment: Recommended PT INR therapeutic range for senior living and prophylactic therapy is 2.0 - 3.0. For heart valve and shunt patients the range is 2.5 - 3.5. LAB L300.14555 9.4-12.0 SECONDS High 12.2 PTS Performed By: #### L300.55692 #### [facility] [address] [place] [address] PROGRESS Observed: 01/24/2018 Status: COMPLETED Source: [place] 3:00 PM [facility] REPOSITORY HNO ID: [id number] Author: Melvina (Evgeny) Sung Service: (none) Author Type: Registered Nurse Type: Progress Notes Filed: 01/24/2018 3:38 PM Note Text: PRIMARY CARE COORDINATION FOLLOW-UP NOTE Provider Action/FYI Pt still in [facility] Still has PICC and IV ATBs and [address] Patient identified by name and date of . YES Spoke to patient Concerns: TC to patient, states she is still inpatient at [facility]. She just had two of her five wound drains with suction removed. Still has 3 wound vacs Continues with PICC line and IV antibiotics. States tomorrow she will begin to stand by the edge of the bed. [employer] Manager plan for next outreach: Will follow up during discharge planning Signature Melvina Almaraz RN January 24, 2018 PROG.NOTE Observed: 01/24/2018 Status: UNK Source: [facility] 8:12 AM [facility] REPOSITORY [facility] Patient Name: VICKI HERNANDEZ [address] [facility] Date of : [address] [place] [address] Unit Number: [id number] Progress Note-Physician Patient Status: REG RCR Attending Doctor: Amadeo Cali MD Service Date: 01/24/18 08 Subjective S: (2 ROS minimum) Patient seen and examined. Currently denies any shortness of breath no chest pain no palpitation no breathing difficulties at this time. Objective (ROS) Nursing Vitals Temperature 97.0, pulse 88, respiration 18, BP 122/70 Physical Exam Neurological / Psychiatric Alert, Orientation X3 HEENT No Trauma, EOMI, PERRL Neck No Bruit, No Mass, No JVD Respiratory Normal Breathing Effort, Clear Lungs Cardiovascular irregular rhythm, No M / R / G, No Clubbing, No Cyanosis Gastrointestinal Normal Bowel Sounds, No Hepatosplenomegally, Non Tender, No Mass Musculoskeletal No Edema Skin wound VAC is in place in right leg lower one third lateral aspect site is gradually receding granulation tissue noted at the edges. Wound VAC is also in place in the Left leg lower one third showing signs of healing. Dressing left ankle. No active discharge. Diagnostic Data: Lab 24hr (CBC/BMP [facility]) 01/24/18 0412: [Embedded Image Not Available] Anion Gap 6, Est GFR ( Amer) 54, Est GFR (Non-Af Amer) 45, BUN/Creatinine Ratio 26 H, Glucose 139 H, Total Calcium 8.4 L, Total Bilirubin 0.6, AST 29, ALT 24, Alkaline Phosphatase 111, Serum Total Protein 7.7, Albumin 2.6 L, Globulin 5.0 H, Albumin/Globulin Ratio 0.5 L, INR 1.2 H, PT Normal Mean Secs 12.3 H, RBC 2.92 L, MCV 92.5, MCHC 31.5 L, RDW 18.0 H, MPV 9.4, Immature Gran % (Auto) 0.4, Abs Immat Gran (auto) 0.00, Seg Neutrophils % 59.9, Lymphocytes % 25.0, Monocytes % 9.0, Eosinophils % 5.2 H, Basophils % 0.5, Neutrophils # 4.40, Lymphocytes # 1.80, Monocytes # 0.70, Eosinophils # 0.40, Basophils # 0.00, Nucleated RBCs 0.0 Assessment and Plan Conclusion 1. ASSESSMENT AND PLAN Plan Patient is a 57 years old, morbidly obese female who [facility] and management of underlying renal impairment. Acute kidney injury secondary to bacteraemia and Vancomycin toxicity: Good urine output. We'll continue to monitor Avoid nephrotoxic agents. Bilateral lower extremity wounds: Continue with the wound care ID on board. Discharge planning is in progress. Atrial fibrillation: Rate is under control. Patient is otherwise asymptomatic. Continue with eliquis GI prophylaxis: PPI Anemia: stable. Disclaimer This dictation was created using voice recognition software. Phonetic and/or minor grammatical errors may exist. eSign Date and Time Amadeo Cali MD Verified/Reviewed by 01/24/18 0814 CBC W/DIFF Collected: 01/24/2018 Status: F Source: [facility] 4:12 AM [facility] REPOSITORY Order Comment: [place]: M TYPE CODE TESTS RESULT OUT OF RANGE REFERENCE UNITS LAB L200.35514 4.5-11.0 K/CU MM WBC Normal 7.3 LAB L200.96360 3.90-5.30 M/CU MM Low RBC 2.92 LAB L200.30853 11.5-15.5 G/DL Low HGB 8.5 LAB L200.82688 35.0-47.0 % Low HCT 27.0 LAB L200.23704 80.0-99.0 fl MCV Normal 92.5 LAB L200.10461 32.0-36.0 GM/DL Low MCHC 31.5 LAB L200.27739 11-14.5 High RDW 18.0 LAB L200.78459 9.4-12.4 MPV Normal 9.4 LAB L200.78219 150-450 K/CU MM PLT Normal 245 LAB L200.89986 45-75 % NEUTROPHILS Normal % 59.9 LAB L200.67822 Less than 2 % IMMATURE Normal GRAN % 0.4 LAB L200.17608 20-40 % LYMPH % Normal 25.0 LAB L200.42719 2-10 % MONOCYTE % Normal 9.0 LAB L200.54585 0-5 % High EOSINOPHIL % 5.2 LAB L200.86099 0-2 % BASOPHIL % Normal 0.5 LAB L200.44518 2.0-8.3 K/CU MM NEUTROPHIL Normal ABS 4.40 LAB L200.45363 Less than 2 K/CU MM IMMATR GRAN Normal ABS 0.00 LAB L200.42211 0.9-4.4 K/CU MM LYMPH ABS Normal 1.80 LAB L200.80382 0.1-1.1 K/CU MM MONO ABS Normal 0.70 LAB L200.76777 0-0.5 K/CU MM EOS ABS Normal 0.40 LAB L200.50888 0-0.2 K/CU MM BASO ABS Normal 0.00 LAB L200.53845 Less than 1 % NRBC Normal 0.0 Performed By: #### L200.62058 #### [facility] [address] [id number] CMP Collected: 01/24/2018 Status: F Source: [facility] 4:12 AM [facility] REPOSITORY Order Comment: [place]: TYPE CODE TESTS RESULT OUT OF RANGE REFERENCE UNITS LAB L500.28929 136-145 MMOL/L Normal NA 137 LAB L500.76062 3.5-5.1 MMOL/L Normal K 3.9 LAB L500.33984 98-107 MMOL/L Normal CL 98 LAB L500.77762 21-32 MMOL/L High CO2 33 LAB L500.35593 5-16 MMOL/L Normal AGAP 6 LAB L500.88734 70-100 MG/DL High GLU 139 Result Comment: 70-100- Normal Fasting; 100-125 Impaired Fasting; greater than 126 on more than one result- Diabetes. ADA guidelines. Results may be falsely elevated after the administration of Sulfapyridine. Results may be falsely depressed after the administration of Sulfasalazine. LAB L500.30594 7-26 MG/DL High BUN 32 LAB L500.47100 0.510-0.950 MG/DL High CREAT 1.230 Result Comment: Patients receiving either N-Acetylcysteine (NAC) or Metamizole prior to venipuncture, may have falsely depressed results. LAB L500.39555 15-24 High BUN/CREA 26 LAB L500.36358 6.0-8.5 GM/DL Normal TP 7.7 LAB L500.75512 3.2-5.0 GM/DL Low ALBUMIN 2.6 LAB L500.88077 2.2-4.2 GM/DL High GLOBULIN 5.0 LAB L500.92980 0.8-2.0 Low A/G RATIO 0.5 LAB L500.49438 8.5-10.1 MG/DL Low CALCIUM TOTAL 8.4 LAB L500.37969 0.2-1.0 MG/DL Normal BILI TOTAL 0.6 LAB L500.23973 8-34 U/L Normal SGOT (AST) 29 Result Comment: RESULTS MAY BE FALSELY DEPRESSED AFTER THE ADMINISTRATION OF SULFASALAZINE AND/OR SULFAPYRIDINE. LAB L500.97187 13-61 IU/L Normal SGPT (ALT) 24 Result Comment: RESULTS MAY BE FALSELY DEPRESSED AFTER THE ADMINISTRATION OF SULFASALAZINE AND/OR SULFAPYRIDINE. LAB L500.91482 45-117 U/L Normal ALK PHOS 111 Performed By: #### L500.29375, L500.94065 #### [facility] [address] [place] [address] GFR EST Collected: 01/24/2018 Status: F Source: [facility] 4:12 AM [facility] REPOSITORY Order Comment: [place]: M TYPE CODE TESTS RESULT OUT OF RANGE REFERENCE UNITS LAB L500.03487 ML/MIN Normal IF non-AFR 45 AMER LAB L500.74161 ML/MIN Normal IF 54 AMER Performed By: #### L500.38132, L500.38717 #### [facility] [address] [place] [address] PT Collected: 01/24/2018 Status: F Source: [facility] 4:12 AM [facility] REPOSITORY Order Comment: [place]: M TYPE CODE TESTS RESULT OUT OF RANGE REFERENCE UNITS LAB L300.78183 0.9-1.1 High INR 1.2 Result Comment: Recommended PT INR therapeutic range for long term care administrator and prophylactic therapy is 2.0 - 3.0. For heart valve and shunt patients the range is 2.5 - 3.5. LAB L300.89344 9.4-12.0 SECONDS High 12.3 PTS Performed By: #### L300.76219 #### [facility] [address] [place] [address] CNPTOUTREACH Observed: 01/24/2018 Status: COMPLETED Source: [place] 12:00 AM [facility] REPOSITORY Patient Outreach (FAMPWS) VICKI HERNANDEZ ([id number]) 1960 F Date Time Provider Department 01/24/18 MELVINA ALMARAZ (RN) MARTAPWS During your visit today, we recorded the following information about you: Melvina Almaraz RN 01/24/2018 3:38 PM Signed PRIMARY CARE COORDINATION FOLLOW-UP NOTE Provider Action/FYI Pt still in [facility] Still has PICC and IV ATBs and [address] Patient identified by name and date of . YES Spoke to patient Concerns: TC to patient, states she is still inpatient at [facility]. She just had two of her five wound drains with suction removed. Still has 3 wound vacs Continues with PICC line and IV antibiotics. States tomorrow she will begin to stand by the edge of the bed. [employer] Manager plan for next outreach: Will follow up during discharge planning Signature Melvina Almaraz RN January 24, 2018 Allergies As of Date: 01/24/2018 Noted Allergy Reaction CODEINE 11/19/2010 14 - Other: See Comments Comments: Itching, vomitting LATEX 11/19/2010 14 - Other: See Comments Comments: Itching,hives,dyspnea PHENOBARBITAL 11/19/2010 14 - Other: See Comments Comments: Nausea, itching TALWIN (PENTAZOCINE LACTATE) 11/19/2010 1 - Mental Status Change Comments: Hallucinations TREE NUT 02/07/2015 10 - Anaphylaxis Date Reviewed: 06/08/2017 Reviewed by: Karena Shaikh Cadd Drafter - Fully Assessed 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 5 p* INSULIN SYRINGE-NEEDLE U-100 * USE ONE SYRINGE FOR EACH INSU* INSULIN LISPRO (U-100) 100 UN* Inject 14 Units subcutaneousl* CITALOPRAM 40 MG TABLET Take 1 tablet by mouth once d* EXENATIDE 5 MCG/DOSE (250 MCG* INJECT 5 mcg SUBCUTANEOUSLY T* LANTUS SOLOSTAR U-100 INSULIN* Inject 46 units subcutaneousl* WARFARIN 2 MG TABLET 10mg and and * IPRATROPIUM-ALBUTEROL 0.5 MG-* Inhale 3 mL as instructed kris* ALBUTEROL SULFATE HFA 90 MCG/* 2 puffs every 4-6 hrs PRN SOB* BUDESONIDE-FORMOTEROL HFA 160* Inhale 2 Puffs as instructed * COMPOUNDED PRESCRIPTION Oxygen for home @ 2L per BIPA* TORSEMIDE 20 MG TABLET TAKE ONE TABLET BY MOUTH TWIC* NADOLOL 40 MG TABLET TAKE THREE TABLETS BY MOUTH D* GLIPIZIDE 10 MG TABLET Take 1 tablet by mouth twice * TORSEMIDE 20 MG TABLET Take 1 tablet by mouth twice * ALBUTEROL SULFATE 1.25 MG/3 M* USE ONE vial in NEBULIZER KRIS* DIGOXIN 250 MCG TABLET Take 1 tablet by mouth once d* POLYETHYLENE GLYCOL 3350 17 G* Take 1 Packet by mouth as nee* CPAP ACETAMINOPHEN ER 650 MG TABLE* Take 650 mg by mouth every 8 * Problem List As Of Date 01/24/2018 Noted Resolved Diabetes (HCC) [E11.9] INVALID FOR* More... Atrial fibrillation (HCC) [I48.91] INVALID FOR* Priority: A More... Lymphedema [I89.0] INVALID FOR* Priority: B More... Heart failure, systolic and diastolic, acute on*INVALID FOR*12/31/2014 More... Obesity, morbid, BMI 50 or higher (HCC) [E66.01]INVALID FOR* More... Hypertension [I10] INVALID FOR* More... HUNTER (obstructive sleep apnea) [G47.33] INVALID FOR* More... Pulmonary HTN (HCC) [I27.20] INVALID FOR* More... Atrial fibrillation with RVR (HCC) [I48.91] INVALID FOR*09/23/2016 More... Heart failure, diastolic, acute (HCC) [I50.31] INVALID FOR* More... Counseling and coordination of care [Z71.89] INVALID FOR*04/12/2015 More... Monoclonal gammopathy [D47.2] INVALID FOR* Empty sella turcica (HCC) [E23.6] INVALID FOR* More... Uncontrolled type 2 diabetes mellitus without c*INVALID FOR*09/23/2016 Encounter Status:Closed by MELVINA ALMARAZ on 01/25/18 PT Collected: 01/23/2018 Status: F Source: [facility] 4:00 AM [facility] REPOSITORY Order Comment: [place]: M TYPE CODE TESTS RESULT OUT OF RANGE REFERENCE UNITS LAB L300.09919 0.9-1.1 Normal INR 1.1 Result Comment: Recommended PT INR therapeutic range for long term care administrator and prophylactic therapy is 2.0 - 3.0. For heart valve and shunt patients the range is 2.5 - 3.5. LAB L300.75038 9.4-12.0 SECONDS High 12.2 PTS Performed By: #### L300.91503 #### [facility] [address] [place] [address] PROG.NOTE Observed: 01/21/2018 Status: UNK Source: [facility] 8:45 AM [facility] Patient Name: VICKI HERNANDEZ [address] [facility] Date of : [address] [place] [address] Unit Number: [id number] Progress Note-Physician Patient Status: REG RCR Attending Doctor: Amadeo Cali MD Service Date: 01/21/18 0845 Subjective S: (2 ROS minimum) Patient continues to do fairly well. Pain is under control no trouble breathing at this time. Objective (ROS) Nursing Vitals Temperature 97.0, pulse 88, respiration 18, BP 122/70 Physical Exam Neurological / Psychiatric Alert, Orientation X3 HEENT No Trauma, EOMI, PERRL Neck No Bruit, No Mass, No JVD Respiratory Normal Breathing Effort, Clear Lungs Cardiovascular irregular rhythm, No M / R / G, No Clubbing, No Cyanosis Gastrointestinal Normal Bowel Sounds, No Hepatosplenomegally, Non Tender, No Mass Musculoskeletal No Edema Skin wound VAC is in place in right leg lower one third lateral aspect site is gradually receding granulation tissue noted at the edges. Wound VAC is also in place in the Left leg lower one third showing signs of healing. Dressing left ankle. No active discharge. Diagnostic Data: Lab 24hr (CBC/BMP Ange) 01/21/18 0400: INR Cancelled, PT Normal Mean Secs Cancelled Assessment and Plan Conclusion 1. ASSESSMENT AND PLAN Plan Patient is a 57 years old, morbidly obese female who is admitted to [facility] for further wound care and management of underlying renal impairment. Acute kidney injury secondary to bacteraemia and Vancomycin toxicity: Obtain lab data in the morning. Bilateral lower extremity wounds: Continue with the wound care ID on board. Plan is for patient to be discharged for possible skin grafting. Patient is aware of the plan and is in agreement. Type 2 diabetes: Sliding scale insulin coverage, Accu-Cheks before meals at bedtime 1800-calorie diabetic diet. Atrial fibrillation: Rate is under control. Patient is otherwise asymptomatic. Continue with eliquis GI prophylaxis: PPI Anemia: stable. Disclaimer This dictation was created using voice recognition software. Phonetic and/or minor grammatical errors may exist. eSign Date and Time Amadeo Cali MD Verified/Reviewed by 01/21/18 0849 PROG.NOTE Observed: 01/20/2018 Status: UNK Source: [facility] 8:19 AM [facility] Patient Name: VICKI HERNANDEZ [address] Date of : [address] [place] [address] Unit Number: [id number] Progress Note-Physician Patient Status: REG RCR Attending Doctor: Amadeo Cali MD Service Date: 01/20/18 0819 Subjective S: (2 ROS minimum) Patient continues to feel well denies any active pain no breathing issues at this time. Objective (ROS) Nursing Vitals Temperature 96.8, pulse 88, respiration 18, BP 120/72 Physical Exam Neurological / Psychiatric Alert, Orientation X3 HEENT No Trauma, EOMI, PERRL Neck No Bruit, No Mass, No JVD Respiratory Normal Breathing Effort, Clear Lungs Cardiovascular irregular rhythm, No M / R / G, No Clubbing, No Cyanosis Gastrointestinal Normal Bowel Sounds, No Hepatosplenomegally, Non Tender, No Mass Musculoskeletal No Edema Skin wound VAC is in place in right leg lower one third lateral aspect site is gradually receding granulation tissue noted at the edges. Wound VAC is also in place in the Left leg lower one third showing signs of healing. Dressing left ankle. No active discharge. Diagnostic Data: Lab 24hr (CBC/BMP [facility]) 01/20/18 0433: INR 1.4 H, PT Normal Mean Secs 15.2 H Assessment and Plan Conclusion 1. ASSESSMENT AND PLAN Plan Patient is a 57 years old, morbidly obese female who is admitted to [facility] for further wound care and management of underlying renal impairment. Acute kidney injury secondary to bacteraemia and Vancomycin toxicity: Creatinine slightly elevated though patient continues to have good urine output Continue to monitor. Bilateral lower extremity wounds: Continue with the wound care ID on board. Plan is for patient to be discharged for possible skin grafting. Patient is aware of the plan and is in agreement. Type 2 diabetes: Sliding scale insulin coverage, Accu-Cheks before meals at bedtime 1800-calorie diabetic diet. Atrial fibrillation: Rate is under control. Patient is otherwise asymptomatic. Continue with eliquis GI prophylaxis: PPI Anemia: stable. Disclaimer This dictation was created using voice recognition software. Phonetic and/or minor grammatical errors may exist. eSign Date and Time Amadeo Cali MD Verified/Reviewed by 01/24/18 0806 PT Collected: 01/20/2018 Status: F Source: [facility] 4:33 AM [facility] REPOSITORY Order Comment: [place]: M TYPE CODE TESTS RESULT OUT OF RANGE REFERENCE UNITS LAB L300.05564 0.9-1.1 High INR 1.4 Result Comment: Recommended PT INR therapeutic range for long term care administrator and prophylactic therapy is 2.0 - 3.0. For heart valve and shunt patients the range is 2.5 - 3.5. LAB L300.02763 9.4-12.0 SECONDS High 15.2 PTS Performed By: #### L300.97229 #### [facility] [address] [place] [id number] PROG.NOTE Observed: 01/19/2018 Status: UNK Source: [facility] 8:41 AM [facility] REPOSITORY [facility] Patient Name: VICKI HERNANDEZ [address] [facility] Date of : [address] [place] [address] Unit Number: [id number] Progress Note-Physician Patient Status: REG RCR Attending Doctor: Amadeo Cali MD Service Date: 01/19/18 0841 Subjective S: (2 ROS minimum) Patient seen and examined. Feeling good. Slept well last night. No chest pain, no trouble breathing currently. Objective (ROS) Nursing Vitals Temperature 96.8, pulse 88, respiration 18, BP 122/70 Physical Exam Neurological / Psychiatric Alert, Orientation X3 HEENT No Trauma, EOMI, PERRL Neck No Bruit, No Mass, No JVD Respiratory Normal Breathing Effort, Clear Lungs Cardiovascular irregular rhythm, No M / R / G, No Clubbing, No Cyanosis Gastrointestinal Normal Bowel Sounds, No Hepatosplenomegally, Non Tender, No Mass Musculoskeletal No Edema Skin wound VAC is in place in right leg lower one third lateral aspect site is gradually receding granulation tissue noted at the edges. Wound VAC is also in place in the Left leg lower one third showing signs of healing. Dressing left ankle. No active discharge. Diagnostic Data: Lab 24hr (CBC/BMP [facility]) 01/19/18 0451: INR 1.5 H, PT Normal Mean Secs 15.8 H 01/19/18 0405: INR Cancelled, PT Normal Mean Secs Cancelled Assessment and Plan Conclusion 1. ASSESSMENT AND PLAN Plan Patient is a 57 years old, morbidly obese female who [facility] and management of underlying renal impairment. Acute kidney injury secondary to bacteraemia and Vancomycin toxicity: Creatinine slightly elevated though patient continues to have good urine output Continue to monitor. Bilateral lower extremity wounds: Continue with the wound care ID on board. Plan is for patient to be discharged for possible skin grafting. Patient is aware of the plan and is in agreement. Type 2 diabetes: Sliding scale insulin coverage, Accu-Cheks before meals at bedtime 1800-calorie diabetic diet. Atrial fibrillation: Rate is under control. Patient is otherwise asymptomatic. Had detailed discussion with the patieint. Patient had Echo done few months ago and per patient she doesn't have any valvular problems. I gave her the option of NOAC as she is still subtherepeutic with higher dose of coumadin. She is in agreement with starting eliquis. She doesn't want to see the clinic lead at this point. Risks benefits have been explained to her. Will cancel future INR, d/c coumadin. GI prophylaxis: PPI Anemia: stable. Disclaimer This dictation was created using voice recognition software. Phonetic and/or minor grammatical errors may exist. eSign Date and Time Amadeo Cali MD Verified/Reviewed by 01/19/18 0844 PT Collected: 01/19/2018 Status: F Source: [facility] 4:51 AM [facility] REPOSITORY Order Comment: [place]: M TYPE CODE TESTS RESULT OUT OF RANGE REFERENCE UNITS LAB L300.90963 0.9-1.1 High INR 1.5 Result Comment: Recommended PT INR therapeutic range for long term care administrator and prophylactic therapy is 2.0 - 3.0. For heart valve and shunt patients the range is 2.5 - 3.5. LAB L300.46089 9.4-12.0 SECONDS High 15.8 PTS Performed By: #### L300.48128 #### [facility] [address] [place] [address] PROG.NOTE Observed: 01/18/2018 Status: UNK Source: [facility] 7:52 AM [facility] Patient Name: VICKI HERNANDEZ [address] [facility] Date of : [address] [place] [address] Unit Number: [id number] Progress Note-Physician Patient Status: REG RCR Attending Doctor: Amadeo Cali MD Service Date: 01/18/18 0752 Subjective S: (2 ROS minimum) Patient seen and examined chart reviewed overnight events noted currently resting comfortably denies any active pain. Objective (ROS) Nursing Vitals Temperature 96.8, pulse 88, respiration 18, BP 122/70 Physical Exam Neurological / Psychiatric Alert, Orientation X3 HEENT No Trauma, EOMI, PERRL Neck No Bruit, No Mass, No JVD Respiratory Normal Breathing Effort, Clear Lungs Cardiovascular Heart RRR, No M / R / G, No Clubbing, No Cyanosis Gastrointestinal Normal Bowel Sounds, No Hepatosplenomegally, Non Tender, No Mass Musculoskeletal No Edema Skin wound VAC is in place in right leg lower one third lateral aspect site is gradually receding granulation tissue noted at the edges. Wound VAC is also in place in the Left leg lower one third showing signs of healing. Dressing left ankle. No active discharge. Diagnostic Data: Lab 24hr (CBC/BMP Ange) 01/18/18 0449: INR 1.5 H, PT Normal Mean Secs 16.1 H Assessment and Plan Conclusion 1. ASSESSMENT AND PLAN Plan Patient is a 57 years old, morbidly obese female who is admitted to [facility] for further wound care and management of underlying renal impairment. Acute kidney injury secondary to bacteraemia and Vancomycin toxicity: Creatinine slightly elevated though patient continues to have good urine output Continue to monitor. Bilateral lower extremity wounds: Continue with the wound care ID on board. Plan is for patient to be discharged for possible skin grafting. Patient is aware of the plan and is in agreement. Type 2 diabetes: Sliding scale insulin coverage, Accu-Cheks before meals at bedtime 1800-calorie diabetic diet. Atrial fibrillation: Rate is under control. Patient is otherwise asymptomatic. Will give 10mg of coumadin today INR am. GI prophylaxis: PPI Anemia: stable. Disclaimer This dictation was created using voice recognition software. Phonetic and/or minor grammatical errors may exist. eSign Date and Time Amadeo Cali MD Verified/Reviewed by 01/18/18 0754 PT Collected: 01/18/2018 Status: F Source: [facility] 4:49 AM [facility] REPOSITORY Order Comment: [place]: TYPE CODE TESTS RESULT OUT OF RANGE REFERENCE UNITS LAB L300.78171 0.9-1.1 High INR 1.5 Result Comment: Recommended PT INR therapeutic range for long term care administrator and prophylactic therapy is 2.0 - 3.0. For heart valve and shunt patients the range is 2.5 - 3.5. LAB L300.65997 9.4-12.0 SECONDS High 16.1 PTS Performed By: #### L300.48629 #### [facility] [address] [place] [address] OPERATIVE REPORT Observed: 01/18/2018 Status: F Source: [place] 2:22 AM [facility] REPOSITORY [facility] Medical Records Department [address] [place] [address] Operative Report 12/09/17 1927 MR#: [id number] Acct: [id number] Name: VICKI HERNANDEZ Rep #: [id number] : 1960 57 From: Alejo Martinez MD PCP: Rajesh Holman MD Status: DIS IN Y Location: MS3 [id number] Report of Operation Date of Procedure: 12/09/17 Pre-Operative Diagnosis: 1. 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 2. Diabetes mellitus. 3. Chronic venous insufficiency with venostasis disease. 4. MRSA. 5. Obesity. 6. Atrial fibrillation on Coumadin. Post-Operative Diagnosis: 1. 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 2. Nonhealing infected MRSA diabetic ulcer abscess right posterior thigh. 3. Nonhealing infected MRSA diabetic ulcer abscess left posterior leg. 4. Nonhealing infected MRSA diabetic ulcer abscess right lateral ankle. 5. Nonhealing infected MRSA diabetic ulcer abscess left medial ankle. 6. Diabetes mellitus. 7. Chronic venous insufficiency with venostasis disease. 8. MRSA. 9. Obesity. 10. Atrial fibrillation on Coumadin. Surgery/Procedure Performed:: 1. Surgical preparation right posterior leg with incision and drainage and excisional debridement nonhealing infected MRSA ulcer abscess (264 cm2). 2. Surgical preparation right posterior thigh with incision and drainage and excisional debridement nonhealing infected MRSA ulcer abscess (112 cm2). 3. Surgical preparation left posterior leg with incision and drainage and excisional debridement nonhealing infected MRSA ulcer abscess (216 cm2). 4. Surgical preparation right lateral ankle with incision and drainage and excisional debridement nonhealing infected MRSA ulcer abscess (4 cm2). 5. Surgical preparation left medial ankle with incision and drainage and excisional debridement nonhealing infected MRSA ulcer abscess (4 cm2). Description of Surgical Findings:: The patient is a 57 year old F who is morbidly obese past medical history of diabetes mellitus, chronic atrial fibrillation on Coumadin, chronic venous insufficiency with venostasis who was admitted to the hospital with pain and redness on her posterior legs from abrasion ulcerations that started a week ago after trying to removed dry skin from her legs using a scrub brush. She denies any fever or chills. Emergency room swab from her legs was positive for MRSA PCR was given a dose of IV vancomycin and admitted to the hospital for further management with IV antibiotics and aggressive wound care. Patient was informed of the risks and complications of the procedure including alternatives to surgery. These were discussed with her personally. She voices understanding and wishes to proceed. She understands that without aggressive debridement and management, she is at increased risk of the infection worsening that may lead to an eventual amputation. She is aware of that possibility and wishes to proceed with the current plan of aggressive debridement and management. Size of defect right posterior leg - 12 x 22 x 2 cm. Size of defect right posterior thigh - 14 x 8 x 5 cm. Size of defect left posterior leg - 24 x 9 x 1 cm. Size of defect right lateral ankle - 2 x 2 x 1 cm. Size of defect left medial ankle - 2 x 2 x 1 cm. trolley collector: None Type of Anesthesia:: General Specimen's removed: 1. Nonhealing infected MRSA ulcer abscess right posterior leg and lateral ankle to Pathology and Microbiology. 2. Nonhealing infected MRSA ulcer abscess right posterior thigh to Pathology and Microbiology. 3. Nonhealing infected MRSA ulcer abscess left posterior leg and medial ankle to Pathology and Microbiology. Drains: None. Estimated Blood Loss (mL): 500 ml. Description of Procedure: Patient was taken to OR in supine position and was given IV sedation. She was placed in the lateral position. Due to her large size, anesthesia felt it was too risky to monitor her. So she was placed back in supine position and was placed under general anesthesia. She was once again placed in the lateral position. This exposed the right posterior leg ulcers. Also the nurses had noted yesterday there was another large ulcer on her right posterior thigh with drainage. That ulcer was also exposed. The left posterior leg ulcers were not exposed well enough so after debridement of the right posterior leg ulcers and right posterior thigh ulcer, the patient will be moved into the opposite lateral position to expose the left posterior leg ulcers for debridement. No SCD's were placed as the surgery was on bilateral legs. She is already getting chemoprophylaxis with Coumadin that she is on for atrial fibrillation. Perioperative antibiotics were given intravenously. The right posterior leg ulcers and right posterior thigh ulcer were prepped and draped in the usual fashion. Using xylocaine with epinephrine, the ulcers were infiltrated for postop pain relief. I then proceeded with surgical preparation of these ulcers with incision and drainage. Some pus was seen in the subcutaneous tissue. A lot of fat necrosis was present that was malodorous. Some of the fat necrosis was very hard and calcified. There was extension of the infection to the underlying fascia. The fascia appeared viable without evidence of necrotizing process. A lot of bleeding was encountered that was controlled with hemostasis and occasional 3-0 Vicryl suture ligature. Most of the ulcers were combined into one larger ulcer due to the amount of pus and fat necrosis present. This will make the wound care easier and ultimately less painful. There was one smaller ulcer on the right lateral ankle that was far enough away that I incised and drained it as a separate ulcer. Due to the amount of fat necrosis present, excisional debridement of these ulcers were done. Some of the tissue was sent to Microbiology for culture. The rest of the tissue was sent to Pathology for analysis to rule out carcinoma. The wounds were irrigated with saline. Hemostasis obtained with electrocautery. The wounds were dressed with Mepitel nonadherent dressing followed by Kerlix gauze and Betadine followed by dry Kerlix gauze, ABD pads and a compression KRISTEN wrap around the leg and a compression dressing for the right posterior thigh. The patient was then turned in the other lateral position to expose the left posterior leg ulcers. The ulcers were prepped and draped in the usual fashion. Using xylocaine with epinephrine, the ulcers were infiltrated for postop pain relief. I then proceeded with surgical preparation of these ulcers with incision and drainage. Some pus was seen in the subcutaneous tissue. A lot of fat necrosis was present that was malodorous. Some of the fat necrosis was very hard and calcified. There was extension of the infection to the underlying fascia. The fascia appeared viable without evidence of necrotizing process. A lot of bleeding was encountered that was controlled with hemostasis and occasional 3-0 Vicryl suture ligature. Most of the ulcers were combined into one larger ulcer due to the amount of pus and fat necrosis present. This will make the wound care easier and ultimately less painful. There was one smaller ulcer on the left medial ankle that was far enough away that I incised and drained it as a separate ulcer. Due to the amount of fat necrosis present, excisional debridement of these ulcers were done. Some of the tissue was sent to Microbiology for culture. The rest of the tissue was sent to Pathology for analysis to rule out carcinoma. The wounds were irrigated with saline. Hemostasis obtained with electrocautery. The wounds were dressed with Mepitel nonadherent dressing followed by Kerlix gauze and Betadine followed by dry Kerlix gauze, ABD pads and a compression KRISTEN wrap. Patient tolerated the procedure well. She was sent to PACU in satisfactory condition. She will be sent upstairs for continued postop care. There was some bleeding during the surgery (about 500 ml). Will check a Hgb later today and have a Type and Cross ready in case transfusion is necessary during the postop period. The VAC will be applied tomorrow. Grafts/Implants Used: None. - Complications None. - Admit VTE Documentation VTE Present on Admission: No - She is on Coumadin for atrial fibrillation. VTE Mechan Device Prophylaxis: None - Patient's wounds involve her bilateral legs. She is on Coumadin for atrial fibrillation. VTE Pharm Prophylaxis ordered?: Yes Code Visit Surgery Charges CPT - 85628 ICD-10 - L02.415, E11.622, A49.02, E66.01 [id number] L02.415, E11.622, A49.02, E66.01 95653-09 L02.416, E11.622, A49.02, E66.01 26965-05 L02.415, E11.622, A49.02, E66.01 45613-70 L02.416, E11.622, A49.02, E66.01 98513-03 L02.415, L02.416, E11.622, A49.02, E66.01 39643 (5 units) L02.415, L02.416, E11.622, A49.02, E66.01 01/18/18 0222 <Electronically signed by Alejo Martinez MD> Date Alejo Martinez MD CC: Thomas Carrasco; Alejo Martinez MD; Irasema Ortiz MD; Boy Haines MD; Rajesh Holman MD; [facility] Signed PROG.NOTE Observed: 01/17/2018 Status: UNK Source: [facility] 12:19 PM [facility] REPOSITORY [facility] Patient Name: VICKI HERNANDEZ [address] Date of : [address] [place] [id number] Unit Number: [id number] Progress Note-Physician Patient Status: REG RCR Attending Doctor: Amadeo Cali MD Service Date: 01/17/181218 Subjective S: (2 ROS minimum) Patient has been doing well Pain is under control No breathing issues. Objective (ROS) Nursing Vitals Temperature 96.8, pulse 93, respiration 18, BP 120/69. Physical Exam Neurological / Psychiatric Alert, Orientation X3 HEENT No Trauma, EOMI, PERRL Neck No Bruit, No Mass, No JVD Respiratory Normal Breathing Effort, Clear Lungs Cardiovascular Heart RRR, No M / R / G, No Clubbing, No Cyanosis Gastrointestinal Normal Bowel Sounds, No Hepatosplenomegally, Non Tender, No Mass Musculoskeletal No Edema Skin wound VAC is in place in right leg lower one third lateral aspect site is gradually receding granulation tissue noted at the edges. Wound VAC is also in place in the left heel medial aspect. Left leg lower one third showing signs of healing. Diagnostic Data: Lab 24hr (CBC[facility]BMP [facility]) 01/17/18 0516: [Embedded Image Not Available] Anion Gap 6, Est GFR ( Amer) 39, Est GFR (Non-Af Amer) 33, BUN/Creatinine Ratio 22, Glucose 113 H, Total Calcium 9.0, INR 1.5 H, PT Normal Mean Secs 15.9 H, RBC 2.74 L, MCV 92.3, MCHC 30.8 L, RDW 18.4 H, MPV 9.4, Nucleated RBCs 0.0 01/17/18 0405: INR Cancelled, PT Normal Mean Secs Cancelled Assessment and Plan Conclusion 1. ASSESSMENT AND PLAN Plan Patient is a 57 years old, morbidly obese female who [facility] and management of underlying renal impairment. Acute kidney injury secondary to bacteraemia and Vancomycin toxicity: Creatinine slightly elevated though patient continues to have good urine output Continue to monitor. Bilateral lower extremity wounds: Continue with the wound care Wound VAC is in place and drainage is going down gradually. ID on board. Type 2 diabetes: Sliding scale insulin coverage, Accu-Cheks before meals at bedtime 1800-calorie diabetic diet. Atrial fibrillation: Rate is under control. Patient is otherwise asymptomatic. Adjust coumadin dose. 7.5mg today INR in am. GI prophylaxis: PPI Anemia: stable. Disclaimer This dictation was created using voice recognition software. Phonetic and/or minor grammatical errors may exist. eSign Date and Time Amadeo Cali MD Verified/Reviewed by 01/18/18 0737 CBC Collected: 01/17/2018 Status: F Source: [facility] 5:16 AM [facility] REPOSITORY Order Comment: [place]: M TYPE CODE TESTS RESULT OUT OF RANGE REFERENCE UNITS LAB L200.44205 4.5-11.0 K/CU MM Normal WBC 6.0 LAB L200.05128 3.90-5.30 M/CU MM Low RBC 2.74 LAB L200.69569 11.5-15.5 G/DL Low HGB 7.8 LAB L200.95624 35.0-47.0 % Low HCT 25.3 LAB L200.03688 80.0-99.0 fl Normal MCV 92.3 LAB L200.85046 32.0-36.0 GM/DL Low MCHC 30.8 LAB L200.22080 11-14.5 High RDW 18.4 LAB L200.54880 9.4-12.4 Normal MPV 9.4 LAB L200.79410 150-450 K/CU MM Normal PLT 286 LAB L200.96931 Less than 1 % Normal NRBC 0.0 Performed By: #### L200.37648 #### [facility] [place] [address] PT Collected: 01/17/2018 Status: F Source: [facility] 5:16 AM [facility] REPOSITORY Order Comment: [place]: M TYPE CODE TESTS RESULT OUT OF RANGE REFERENCE UNITS LAB L300.05134 0.9-1.1 High INR 1.5 Result Comment: Recommended PT INR therapeutic range for long term care administrator and prophylactic therapy is 2.0 - 3.0. For heart valve and shunt patients the range is 2.5 - 3.5. LAB L300.87939 9.4-12.0 SECONDS High 15.9 PTS Performed By: #### L300.88329 #### [facility] [address] [place] [address] BMP Collected: 01/17/2018 Status: F Source: [place] [address]:16 AM [facility] REPOSITORY Order Comment: [place]: M TYPE CODE TESTS RESULT OUT OF RANGE REFERENCE UNITS LAB L500.43932 136-145 MMOL/L Normal NA 139 LAB L500.14138 3.5-5.1 MMOL/L Normal K 3.8 LAB L500.32588 98-107 MMOL/L Normal CL 98 LAB L500.58700 21-32 MMOL/L High CO2 35 LAB L500.28526 5-16 MMOL/L Normal AGAP 6 LAB L500.52968 70-100 MG/DL High GLU 113 Result Comment: 70-100- Normal Fasting; 100-125 Impaired Fasting; greater than 126 on more than one result- Diabetes. ADA guidelines. Results may be falsely elevated after the administration of Sulfapyridine. Results may be falsely depressed after the administration of Sulfasalazine. LAB L500.33086 7-26 MG/DL High BUN 35 LAB L500.29124 0.510-0.950 MG/DL High CREAT 1.620 Result Comment: Patients receiving either N-Acetylcysteine (NAC) or Metamizole prior to venipuncture, may have falsely depressed results. LAB L500.02603 15-24 Normal BUN/CREA 22 LAB L500.88500 8.5-10.1 MG/DL Normal CALCIUM TOTAL 9.0 Performed By: #### L500.12603, L500.22435 #### [facility] [address] [place] [address] GFR EST Collected: 01/17/2018 Status: F Source: [facility] 5:16 AM [facility] REPOSITORY Order Comment: [place]: M TYPE CODE TESTS RESULT OUT OF RANGE REFERENCE UNITS LAB L500.32607 ML/MIN Normal IF non-AFR 33 AMER LAB L500.17279 ML/MIN Normal IF 39 AMER Performed By: #### L500.17894, L500.55443 #### [facility] [address] [place] [address] PROG.NOTE Observed: 01/16/2018 Status: UNK Source: [facility] 2:24 PM [facility] REPOSITORY [facility] Patient Name: VICKI HERNANDEZ [address] [place] [address] Date of : 56 [address] [address] Unit Number: [id number] Progress Note-Physician Patient Status: REG RCR Attending Doctor: Amadeo Cali MD Service Date: 01/16/18 1424 Subjective S: (2 ROS minimum) Patient seen and examined, doing well. Pain under control. No breathing issues currently. Objective (ROS) Nursing Vitals Temperature 96.8, pulse 93, respiration 18, BP 120/69. Physical Exam Neurological / Psychiatric Alert, Orientation X3 HEENT No Trauma, EOMI, PERRL Neck No Bruit, No Mass, No JVD Respiratory Normal Breathing Effort, Clear Lungs Cardiovascular Heart RRR, No M / R / G, No Clubbing, No Cyanosis Gastrointestinal Normal Bowel Sounds, No Hepatosplenomegally, Non Tender, No Mass Musculoskeletal No Edema Skin wound VAC is in place in right leg lower one third lateral aspect site is gradually receding granulation tissue noted at the edges. Wound VAC is also in place in the left heel medial aspect. Left leg lower one third showing signs of healing. Drainage is gradually going down Diagnostic Data: Lab 24hr (CBC/BMP Fishbone) 01/16/18 0532: [Embedded Image Not Available] Anion Gap 6, Est GFR ( Amer) 33, Est GFR (Non-Af Amer) 27, BUN/Creatinine Ratio 19, Glucose 129 H, Total Calcium 8.6, Iron 41 L, TIBC 241, Iron Saturation 17 L, INR 1.5 H, PT Normal Mean Secs 15.6 H, RBC 2.78 L, MCV 92.4, MCHC 31.1 L, RDW 18.3 H, MPV 9.4, Nucleated RBCs 0.0 Assessment and Plan Conclusion 1. ASSESSMENT AND PLAN Plan Patient is a 57 years old, morbidly obese female who [facility] and management of underlying renal impairment. Acute kidney injury secondary to bacteraemia and Vancomycin toxicity: Creatinine slightly elevated though patient continues to have good urine output Continue to monitor. Bilateral lower extremity wounds: Continue with the wound care Wound VAC is in place and drainage is going down gradually. ID on board. Type 2 diabetes: Sliding scale insulin coverage, Accu-Cheks before meals at bedtime 1800-calorie diabetic diet. Atrial fibrillation: Rate is under control. Patient is otherwise asymptomatic. Adjust coumadin dose. INR in am. GI prophylaxis: PPI Anemia: stable. Disclaimer This dictation was created using voice recognition software. Phonetic and/or minor grammatical errors may exist. eSign Date and Time VirajAmadeo MD Verified/Reviewed by 01/16/18 1425 CBC Collected: 01/16/2018 Status: F Source: [facility] 5:32 AM [facility] REPOSITORY Order Comment: [place]: M TYPE CODE TESTS RESULT OUT OF RANGE REFERENCE UNITS LAB L200.86656 4.5-11.0 K/CU MM Normal WBC 6.5 LAB L200.86238 3.90-5.30 M/CU MM Low RBC 2.78 LAB L200.43693 11.5-15.5 G/DL Low HGB 8.0 LAB L200.19476 35.0-47.0 % Low HCT 25.7 LAB L200.20389 80.0-99.0 fl Normal MCV 92.4 LAB L200.83909 32.0-36.0 GM/DL Low MCHC 31.1 LAB L200.51224 11-14.5 High RDW 18.3 LAB L200.92029 9.4-12.4 Normal MPV 9.4 LAB L200.51037 150-450 K/CU MM Normal PLT 281 LAB L200.96310 Less than 1 % Normal NRBC 0.0 Performed By: #### L200.28482 #### [facility] [address] [place] [address] BMP Collected: 01/16/2018 Status: F Source: [facility] 5:32 AM [facility] REPOSITORY Order Comment: [place]: M TYPE CODE TESTS RESULT OUT OF RANGE REFERENCE UNITS LAB L500.10471 136-145 MMOL/L Normal NA 138 LAB L500.82659 3.5-5.1 MMOL/L Normal K 3.8 LAB L500.67760 98-107 MMOL/L Normal CL 98 LAB L500.99820 21-32 MMOL/L High CO2 34 LAB L500.87159 5-16 MMOL/L Normal AGAP 6 LAB L500.26021 70-100 MG/DL High GLU 129 Result Comment: 70-100- Normal Fasting; 100-125 Impaired Fasting; greater than 126 on more than one result- Diabetes. ADA guidelines. Results may be falsely elevated after the administration of Sulfapyridine. Results may be falsely depressed after the administration of Sulfasalazine. LAB L500.39812 7-26 MG/DL High BUN 36 LAB L500.49551 0.510-0.950 MG/DL High CREAT 1.880 Result Comment: Patients receiving either N-Acetylcysteine (NAC) or Metamizole prior to venipuncture, may have falsely depressed results. LAB L500.54697 15-24 Normal BUN/CREA 19 LAB L500.58103 8.5-10.1 MG/DL Normal CALCIUM TOTAL 8.6 Performed By: #### L500.29515, L500.09037, L500.82561 #### [facility] [address] [place] [address] GFR EST Collected: 01/16/2018 Status: F Source: [facility] 5:32 AM [facility] REPOSITORY Order Comment: [place]: TYPE CODE TESTS RESULT OUT OF RANGE REFERENCE UNITS LAB L500.90862 ML/MIN Normal IF non-AFR 27 AMER LAB L500.79101 ML/MIN Normal IF 33 AMER Performed By: #### L500.39876, L500.14338, L500.87858 #### [facility] [address] [place] [address] IRON PANEL Collected: 01/16/2018 Status: F Source: [facility] 5:32 AM [facility] REPOSITORY Order Comment: [place]: M TYPE CODE TESTS RESULT OUT OF RANGE REFERENCE UNITS LAB L500.84794 50-170 UG/DL Low IRON 41 Result Comment: Patients treated with metal-binding drugs (e.g.deferoxamine) may have depressed iron values, as chelated iron may not properly react in the Siemens iron assay. LAB L500.05870 221-481 UG/DL Normal TIBC 241 LAB L500.55968 22-44 % Low IRON SAT 17 Performed By: #### L500.53167, L500.96260, L500.17942 #### [facility] [address] [place] [address] PT Collected: 01/16/2018 Status: F Source: [facility] 5:32 AM [facility] REPOSITORY Order Comment: [place]: M TYPE CODE TESTS RESULT OUT OF RANGE REFERENCE UNITS LAB L300.47943 0.9-1.1 High INR 1.5 Result Comment: Recommended PT INR therapeutic range for senior living and prophylactic therapy is 2.0 - 3.0. For heart valve and shunt patients the range is 2.5 - 3.5. LAB L300.31356 9.4-12.0 SECONDS High 15.6 PTS Performed By: #### L300.32572 #### [facility] [address] [place] [address] PROG.NOTE Observed: 01/15/2018 Status: UNK Source: [facility] 12:31 PM [facility] REPOSITORY [facility] Patient Name: VICKI HERNANDEZ [address] [facility] Date of : 56 [place] [address] Unit Number: [id number] Progress Note-Physician Patient Status: REG RCR Attending Doctor: Amadeo Cali MD Service Date: 01/15/18 1231 Subjective S: (2 ROS minimum) Patient has been feeling well pain is currently under control. No trouble breathing no alteration the bowel movements Objective (ROS) Nursing Vitals Vital signs stable. Physical Exam Neurological / Psychiatric Alert, Orientation X3 HEENT No Trauma, EOMI, PERRL Neck No Bruit, No Mass, No JVD Respiratory Normal Breathing Effort, Clear Lungs Cardiovascular Heart RRR, No M / R / G, No Clubbing, No Cyanosis Gastrointestinal Normal Bowel Sounds, No Hepatosplenomegally, Non Tender, No Mass Musculoskeletal No Edema Skin wound VAC is in place in right leg lower one third lateral aspect site is gradually receding granulation tissue noted at the edges. Wound VAC is also in place in the left heel medial aspect. Left leg lower one third showing signs of healing. Drainage is gradually going down Diagnostic Data: Lab 24hr (CBC/BMP Fishbone) 01/15/18 0655: [Embedded Image Not Available] Anion Gap 6, Est GFR ( Amer) 33, Est GFR (Non-Af Amer) 27, BUN/Creatinine Ratio 19, Glucose 121 H, Total Calcium 8.5, INR 1.4 H, PT Normal Mean Secs 14.7 H Assessment and Plan Conclusion 1. ASSESSMENT AND PLAN Plan Patient is a 57 years old, morbidly obese female who [facility] and management of underlying renal impairment. Acute kidney injury secondary to bacteraemia and Vancomycin toxicity: Creatinine slightly elevated though patient continues to have good urine output Continue to monitor. Bilateral lower extremity wounds: Continue with the wound care Wound VAC is in place and drainage is going down gradually. ID on board. Type 2 diabetes: Sliding scale insulin coverage, Accu-Cheks before meals at bedtime 1800-calorie diabetic diet. Atrial fibrillation: Rate is under control. Patient is otherwise asymptomatic. INR is therapeutic. Continue with current dose of coumadin. GI prophylaxis: PPI Anemia: stable. Disclaimer This dictation was created using voice recognition software. Phonetic and/or minor grammatical errors may exist. eSign Date and Time Amadeo Cali MD Verified/Reviewed by 01/15/18 1439 PT Collected: 01/15/2018 Status: F Source: [facility] 6:55 AM [facility] REPOSITORY Order Comment: [place]: M TYPE CODE TESTS RESULT OUT OF RANGE REFERENCE UNITS LAB L300.64866 0.9-1.1 High INR 1.4 Result Comment: Recommended PT INR therapeutic range for senior living and prophylactic therapy is 2.0 - 3.0. For heart valve and shunt patients the range is 2.5 - 3.5. LAB L300.94452 9.4-12.0 SECONDS High 14.7 PTS Performed By: #### L300.86363 #### [facility] [place] [address] BMP Collected: 01/15/2018 Status: F Source: [facility] 6:55 AM [facility] REPOSITORY Order Comment: [place]: M TYPE CODE TESTS RESULT OUT OF RANGE REFERENCE UNITS LAB L500.67847 136-145 MMOL/L Normal NA 140 LAB L500.86323 3.5-5.1 MMOL/L Normal K 3.9 LAB L500.50483 98-107 MMOL/L Normal CL 98 LAB L500.34055 21-32 MMOL/L High CO2 36 LAB L500.55400 5-16 MMOL/L Normal AGAP 6 LAB L500.36373 70-100 MG/DL High GLU 121 Result Comment: 70-100- Normal Fasting; 100-125 Impaired Fasting; greater than 126 on more than one result- Diabetes. ADA guidelines. Results may be falsely elevated after the administration of Sulfapyridine. Results may be falsely depressed after the administration of Sulfasalazine. LAB L500.30274 7-26 MG/DL High BUN 37 LAB L500.08859 0.510-0.950 MG/DL High CREAT 1.900 Result Comment: Patients receiving either N-Acetylcysteine (NAC) or Metamizole prior to venipuncture, may have falsely depressed results. LAB L500.67943 15-24 Normal BUN/CREA 19 LAB L500.54982 8.5-10.1 MG/DL Normal CALCIUM TOTAL 8.5 Performed By: #### L500.76251, L500.12801 #### [facility] [address] [place] [address] GFR EST Collected: 01/15/2018 Status: F Source: [facility] 6:55 AM [facility] REPOSITORY Order Comment: [place]: M TYPE CODE TESTS RESULT OUT OF RANGE REFERENCE UNITS LAB L500.32381 ML/MIN Normal IF non-AFR 27 AMER LAB L500.30001 ML/MIN Normal IF 33 AMER Performed By: #### L500.28138, L500.74706 #### [facility] [address] [place] [address] PROG.NOTE Observed: 01/14/2018 Status: UNK Source: [facility] 8:22 AM [facility] REPOSITORY [facility] Patient Name: VICKI HERNANDEZ [address] [facility] Date of : 56 [place] [address] Unit Number: [id number] Progress Note-Physician Patient Status: REG RCR Attending Doctor: Amadeo Cali MD Service Date: 01/14/18 0822 Subjective S: (2 ROS minimum) Patient seen and examined chart was reviewed overnight events were noted currently resting comfortably pain is under control no breathing issues at this time Objective (ROS) Nursing Vitals Physical Exam Neurological / Psychiatric Alert, Orientation X3 HEENT No Trauma, EOMI, PERRL Neck No Bruit, No Mass, No JVD Respiratory Normal Breathing Effort, Clear Lungs Cardiovascular Heart RRR, No M / R / G, No Clubbing, No Cyanosis Gastrointestinal Normal Bowel Sounds, No Hepatosplenomegally, Non Tender, No Mass Musculoskeletal No Edema Skin wound VAC is in place in right leg lower one third lateral aspect site is gradually receding granulation tissue noted at the edges. Wound VAC is also in place in the left heel medial aspect. Left leg lower one third showing signs of healing. Drainage is gradually going down Diagnostic Data: Lab 24hr (CBC/BMP Fishbone) 01/14/18 0434: [Embedded Image Not Available] Anion Gap 8, Est GFR ( Amer) 35, Est GFR (Non-Af Amer) 29, BUN/Creatinine Ratio 19, Glucose 119 H, Total Calcium 8.8, INR 1.6 H, PT Normal Mean Secs 17.8 H, RBC 2.86 L, MCV 92.3, MCHC 30.3 L, RDW 18.4 H, MPV 9.2 L, Nucleated RBCs 0.0 Assessment and Plan Conclusion 1. ASSESSMENT AND PLAN Plan Patient is a 57 years old, morbidly obese female who is admitted to [facility] for further wound care and management of underlying renal impairment. Acute kidney injury secondary to bacteraemia and Vancomycin toxicity: Renal function is much better Good urine output Continue to monitor. Bilateral lower extremity wounds: Continue with the wound care Wound VAC is in place and drainage is going down gradually. ID on board. Type 2 diabetes: Sliding scale insulin coverage, Accu-Cheks before meals at bedtime 1800-calorie diabetic diet. Atrial fibrillation: Rate is under control. Patient is otherwise asymptomatic. INR is therapeutic. Continue with current dose of coumadin. GI prophylaxis: PPI Anemia: stable. Hypokalemia: Replace potassium and recheck the levels in the morning Patient not showing any signs of cardiac instability we'll continue to monitor. Disclaimer This dictation was created using voice recognition software. Phonetic and/or minor grammatical errors may exist. eSign Date and Time Amadeo Cali MD Verified/Reviewed by 01/15/18 1120 CBC Collected: 01/14/2018 Status: F Source: [facility] 4:34 AM [facility] REPOSITORY Order Comment: [place]: M TYPE CODE TESTS RESULT OUT OF RANGE REFERENCE UNITS LAB L200.06606 4.5-11.0 K/CU MM Normal WBC 5.7 LAB L200.31307 3.90-5.30 M/CU MM Low RBC 2.86 LAB L200.31512 11.5-15.5 G/DL Low HGB 8.0 LAB L200.71501 35.0-47.0 % Low HCT 26.4 LAB L200.45839 80.0-99.0 fl Normal MCV 92.3 LAB L200.80604 32.0-36.0 GM/DL Low MCHC 30.3 LAB L200.87033 11-14.5 High RDW 18.4 LAB L200.02826 9.4-12.4 Low MPV 9.2 LAB L200.93450 150-450 K/CU MM Normal PLT 287 LAB L200.19027 Less than 1 % Normal NRBC 0.0 Performed By: #### L200.58620 #### [facility] [address] [place] [address] PT Collected: 01/14/2018 Status: F Source: [facility] 4:34 AM [facility] REPOSITORY Order Comment: [place]: M TYPE CODE TESTS RESULT OUT OF RANGE REFERENCE UNITS LAB L300.14783 0.9-1.1 High INR 1.6 Result Comment: Recommended PT INR therapeutic range for long term care administrator and prophylactic therapy is 2.0 - 3.0. For heart valve and shunt patients the range is 2.5 - 3.5. LAB L300.62597 9.4-12.0 SECONDS High 17.8 PTS Performed By: #### L300.48206 #### [facility] [address] [place] [address] BMP Collected: 01/14/2018 Status: F Source: [facility] 4:34 AM [facility] REPOSITORY Order Comment: [place]: M TYPE CODE TESTS RESULT OUT OF RANGE REFERENCE UNITS LAB L500.25597 136-145 MMOL/L Normal NA 139 LAB L500.72842 3.5-5.1 MMOL/L Low K 3.4 LAB L500.55100 98-107 MMOL/L Low CL 96 LAB L500.68216 21-32 MMOL/L High CO2 36 LAB L500.40375 5-16 MMOL/L Normal AGAP 8 LAB L500.21444 70-100 MG/DL High GLU 119 Result Comment: 70-100- Normal Fasting; 100-125 Impaired Fasting; greater than 126 on more than one result- Diabetes. ADA guidelines. Results may be falsely elevated after the administration of Sulfapyridine. Results may be falsely depressed after the administration of Sulfasalazine. LAB L500.02303 7-26 MG/DL High BUN 34 LAB L500.13944 0.510-0.950 MG/DL High CREAT 1.790 Result Comment: Patients receiving either N-Acetylcysteine (NAC) or Metamizole prior to venipuncture, may have falsely depressed results. LAB L500.23002 15-24 Normal BUN/CREA 19 LAB L500.71226 8.5-10.1 MG/DL Normal CALCIUM TOTAL 8.8 Performed By: #### L500.91598, L500.40813 #### [facility] [address] [place] [address] GFR EST Collected: 01/14/2018 Status: F Source: [facility] 4:34 AM [facility] REPOSITORY Order Comment: [place]: TYPE CODE TESTS RESULT OUT OF RANGE REFERENCE UNITS LAB L500.52453 ML/MIN Normal IF non-AFR 29 AMER LAB L500.08745 ML/MIN Normal IF 35 AMER Performed By: #### L500.99626, L500.41026 #### [facility] [address] [place] [address] PROG.NOTE Observed: 01/13/2018 Status: UNK Source: [facility] 4:46 PM [facility] REPOSITORY [facility] Patient Name: VICKI HERNANDEZ [address] [facility] Date of : 56 [place] [address] Unit Number: [id number] Progress Note-Physician Patient Status: REG RCR Attending Doctor: Amadeo Cali MD Service Date: 01/13/18 1646 Subjective S: (2 ROS minimum) Patient has been feeling much better today. Denies any active pain. Slept well last night. No trouble breathing. No acute overnight events. Objective (ROS) Nursing Vitals Temperature 97.6 pulse 76 respirations 16 blood pressure 120/76 Physical Examination Notes Pt is not in acute distress HEENT: normocephalic. Nonicteric. no thrush. no thyromegaly. good dentition. supple PULM: no tachypnea. no wheezes. no rales. fair aeration. no hyperinflation. symetrical breath sounds. no signs pneumothorax. CV: no significant gallops. no murmur. no edema. RRR. HR normal. BP as documented. good peripheral perfusion ABD: no organomegaly. soft. Nontender. no ascites. no rebound. normal girth. EXT: no edema. no cyanosis. good motor tone. normal muscle mass. no osteoarthropathy Neuro: CN 2-12 intact. alert. coherent. verbal. MAEx4. No rigidity. Pupils symmetrical. No Psychosis. LN: no gross lymphadenopathy SKIN: no diaphoresis. wounds vacs on right and left leg in place. Reduced discharge. Diagnostic Data: Lab 24hr (CBC/BMP [facility]) 01/13/18 0441: Iron 40 L, TIBC 232, Iron Saturation 17 L, INR 2.3 H, PT Normal Mean Secs 25.5 H Assessment and Plan Conclusion 1. ASSESSMENT AND PLAN Plan Patient is a 57 years old, morbidly obese female who [facility] and management of underlying renal impairment. Acute kidney injury secondary to bacteraemia and Vancomycin toxicity: Renal function is much better Good urine output Continue to monitor. Bilateral lower extremity wounds: Continue with the wound care Wound VAC is in place and drainage is going down gradually. ID on board. Type 2 diabetes: Sliding scale insulin coverage, Accu-Cheks before meals at bedtime 1800-calorie diabetic diet. Atrial fibrillation: Rate is under control. Patient is otherwise asymptomatic. INR is therapeutic. Continue with current dose of coumadin. GI prophylaxis: PPI Anemia: stable. Disclaimer This dictation was created using voice recognition software. Phonetic and/or minor grammatical errors may exist. eSign Date and Time VirajAmadeo MD Verified/Reviewed by 01/13/18 9797 PT Collected: 01/13/2018 Status: F Source: [facility] 4:41 AM [facility] REPOSIT[facility] Order Comment: [place]: M TYPE CODE TESTS RESULT OUT OF RANGE REFERENCE UNITS LAB L300.56962 0.9-1.1 High INR 2.3 Result Comment: Recommended PT INR therapeutic range for senior living and prophylactic therapy is 2.0 - 3.0. For heart valve and shunt patients the range is 2.5 - 3.5. LAB L300.75049 9.4-12.0 SECONDS High 25.5 PTS Performed By: #### L300.24192 #### [facility] [address] [place] [address] IRON PANEL Collected: 01/13/2018 Status: F Source: [facility] 4:41 AM [facility] REPOSITORY Order Comment: [place]: M TYPE CODE TESTS RESULT OUT OF RANGE REFERENCE UNITS LAB L500.97336 50-170 UG/DL Low IRON 40 Result Comment: Patients treated with metal-binding drugs (e.g.deferoxamine) may have depressed iron values, as chelated iron may not properly react in the Siemens iron assay. LAB L500.82310 221-481 UG/DL Normal TIBC 232 LAB L500.18607 22-44 % Low IRON SAT 17 Performed By: #### L500.45202 #### [facility] [address] [place] [address] PROG.NOTE Observed: 01/12/2018 Status: UNK Source: [facility] 9:04 AM [facility] REPOSITORY [facility] Patient Name: VICKI HERNANDEZ [address] [facility] Date of : 56 [place] [address] Unit Number: [id number] Progress Note-Physician Patient Status: REG RCR Attending Doctor: Amadeo Cali MD Service Date: 01/12/18 0904 Subjective S: (2 ROS minimum) Patient has been feeling good. Pain is under control. No trouble breathing. No nausea, no vomiting at this time. Slept fine last night. Objective (ROS) Nursing Vitals Temperature 97.6 pulse 76 respirations 16 blood pressure 122/78 Physical Examination Notes Pt is not in acute distress HEENT: normocephalic. Nonicteric. no thrush. no thyromegaly. good dentition. supple PULM: no tachypnea. no wheezes. no rales. fair aeration. no hyperinflation. symetrical breath sounds. no signs pneumothorax. CV: no significant gallops. no murmur. no edema. RRR. HR normal. BP as documented. good peripheral perfusion ABD: no organomegaly. soft. Nontender. no ascites. no rebound. normal girth. EXT: no edema. no cyanosis. good motor tone. normal muscle mass. no osteoarthropathy Neuro: CN 2-12 intact. alert. coherent. verbal. MAEx4. No rigidity. Pupils symmetrical. No Psychosis. LN: no gross lymphadenopathy SKIN: no diaphoresis. wounds vacs on right and left leg in place. Diagnostic Data: Lab 24hr (CBC/BMP Fishbone) 01/12/18 0435: [Embedded Image Not Available] Anion Gap 8, Est GFR ( Amer) 36, Est GFR (Non-Af Amer) 30, BUN/Creatinine Ratio 16, Glucose 127 H, Total Calcium 8.6, INR 2.3 H, PT Normal Mean Secs 25.3 H Assessment and Plan Conclusion 1. ASSESSMENT AND PLAN Plan Patient is a 57 years old, morbidly obese female who is admitted to [facility] for further wound care and management of underlying renal impairment. Acute kidney injury secondary to bacteraemia and Vancomycin toxicity: Renal function stable with good urine output. Creatinine trending down. We'll continue to monitor. Nephrology is on board. Bilateral lower extremity wounds: Continue with the wound care Wound VAC is in place and patient still showing copious amount of drainage. ID on board. Type 2 diabetes: Sliding scale insulin coverage, Accu-Cheks before meals at bedtime 1800-calorie diabetic diet. Atrial fibrillation: Rate is under control. Patient is otherwise asymptomatic. INR is therapeutic. Continue with current dose of coumadin. GI prophylaxis: PPI Anemia: stable. Disclaimer This dictation was created using voice recognition software. Phonetic and/or minor grammatical errors may exist. eSign Date and Time Viraj,Amadeo LAZARO Verified/Reviewed by 01/13/18 0816 PT Collected: 01/12/2018 Status: F Source: [facility] 4:35 AM [facility] REPOSIT[facility] Order Comment: [place]: M TYPE CODE TESTS RESULT OUT OF RANGE REFERENCE UNITS LAB L300.67454 0.9-1.1 High INR 2.3 Result Comment: Recommended PT INR therapeutic range for senior living and prophylactic therapy is 2.0 - 3.0. For heart valve and shunt patients the range is 2.5 - 3.5. LAB L300.16018 9.4-12.0 SECONDS High 25.3 PTS Performed By: #### L300.83302 #### [facility] [address] [id number] BMP Collected: 01/12/2018 Status: F Source: [facility] 4:35 AM [facility] REPOSITORY Order Comment: [place]: M TYPE CODE TESTS RESULT OUT OF RANGE REFERENCE UNITS LAB L500.36822 136-145 MMOL/L Normal NA 142 LAB L500.41568 3.5-5.1 MMOL/L Normal K 3.5 LAB L500.84482 98-107 MMOL/L Normal CL 98 LAB L500.24284 21-32 MMOL/L High CO2 36 LAB L500.35850 5-16 MMOL/L Normal AGAP 8 LAB L500.93757 70-100 MG/DL High GLU 127 Result Comment: 70-100- Normal Fasting; 100-125 Impaired Fasting; greater than 126 on more than one result- Diabetes. ADA guidelines. Results may be falsely elevated after the administration of Sulfapyridine. Results may be falsely depressed after the administration of Sulfasalazine. LAB L500.35929 7-26 MG/DL High BUN 28 LAB L500.23646 0.510-0.950 MG/DL High CREAT 1.740 Result Comment: Patients receiving either N-Acetylcysteine (NAC) or Metamizole prior to venipuncture, may have falsely depressed results. LAB L500.25017 15-24 Normal BUN/CREA 16 LAB L500.03196 8.5-10.1 MG/DL Normal CALCIUM TOTAL 8.6 Performed By: #### L500.75155, L500.87085 #### [facility] [address] [place] [address] GFR EST Collected: 01/12/2018 Status: F Source: [facility] 4:35 AM [facility] REPOSITORY Order Comment: [place]: M TYPE CODE TESTS RESULT OUT OF RANGE REFERENCE UNITS LAB L500.84801 ML/MIN Normal IF non-AFR 30 AMER LAB L500.88016 ML/MIN Normal IF 36 AMER Performed By: #### L500.74865, L500.92318 #### [facility] [address] [place] [address] PROG.NOTE Observed: 01/11/2018 Status: UNK Source: [facility] 8:13 AM [facility] Patient Name: VICKI HERNANDEZ [address] [facility] Date of : [address] [address] Unit Number: [id number] Progress Note-Physician Patient Status: REG RCR Attending Doctor: Amadeo Cali MD Service Date: 01/11/18812 Subjective S: (2 ROS minimum) Patient seen and examined chart was reviewed overnight events noted. Slept well last night pain is under control denies any nausea no breathing difficulties. Objective (ROS) Nursing Vitals Temperature 97.8 pulse 76 respirations 18 blood pressure 132/76. Physical Examination Notes Pt is not in acute distress HEENT: normocephalic. Nonicteric. no thrush. no thyromegaly. good dentition. supple PULM: no tachypnea. no wheezes. no rales. fair aeration. no hyperinflation. symetrical breath sounds. no signs pneumothorax. CV: no significant gallops. no murmur. no edema. RRR. HR normal. BP as documented. good peripheral perfusion ABD: no organomegaly. soft. Nontender. no ascites. no rebound. normal girth. EXT: no edema. no cyanosis. good motor tone. normal muscle mass. no osteoarthropathy Neuro: CN 2-12 intact. alert. coherent. verbal. MAEx4. No rigidity. Pupils symmetrical. No Psychosis. LN: no gross lymphadenopathy SKIN: no diaphoresis. wounds vacs on right and left leg in place. Diagnostic Data: Lab 24hr (CBC/BMP [facility]) 01/11/18 0424: INR 2.5 H, PT Normal Mean Secs 27.2 H Assessment and Plan Conclusion 1. ASSESSMENT AND PLAN Plan Patient is a 57 years old, morbidly obese female who [facility] and management of underlying renal impairment. Acute kidney injury secondary to bacteraemia and Vancomycin toxicity: Renal function stable with good urine output. We'll continue to monitor. Nephrology is on board. Bilateral lower extremity wounds: Continue with the wound care Wound VAC is in place and patient still showing copious amount of drainage. ID on board. Type 2 diabetes: Sliding scale insulin coverage, Accu-Cheks before meals at bedtime 1800-calorie diabetic diet. Atrial fibrillation: Rate is under control. Patient is otherwise asymptomatic. INR is therapeutic. Continue with current dose of coumadin. GI prophylaxis: PPI Anemia: stable. Disclaimer This dictation was created using voice recognition software. Phonetic and/or minor grammatical errors may exist. eSign Date and Time Amadeo Cali MD Verified/Reviewed by 01/11/18 0815 PT Collected: 01/11/2018 Status: F Source: [facility] 4:24 AM [facility] Order Comment: [place]: TYPE CODE TESTS RESULT OUT OF RANGE REFERENCE UNITS LAB L300.69783 0.9-1.1 High INR 2.5 Result Comment: Recommended PT INR therapeutic range for long term care administrator and prophylactic therapy is 2.0 - 3.0. For heart valve and shunt patients the range is 2.5 - 3.5. LAB L300.78081 9.4-12.0 SECONDS High 27.2 PTS Performed By: #### L300.35995 #### [facility] [address] [place] [address] PROG.NOTE Observed: 01/10/2018 Status: UNK Source: [facility] 5:13 PM [facility] Patient Name: VICKI HERNANDEZ [address] [facility] Date of : [address] [address] Unit Number: [id number] Progress Note-Physician Patient Status: REG RCR Attending Doctor: Amadeo Cali MD Service Date: 01/10/18 9918 Subjective S: (2 ROS minimum) Patient has been feeling fairly well. Denies any active pain. She was notches earlier in the morning but is feeling better now. Objective (ROS) Nursing Vitals Temp 97.6, Pulse 88, Resp 16, Blood pressure 116/72 Physical Examination Notes Pt is not in acute distress HEENT: normocephalic. PEERL. nonicteric. no thrush. no thyromegaly. good dentition. supple PULM: no tachypnea. no wheezes. no rales. fair aeration. no hyperinflation. symetrical breath sounds. no signs pneumothorax. CV: no significant gallops. no murmur. no edema. RRR. HR normal. BP as documented. good peripheral perfusion ABD: no organomegaly. soft. Nontender. no ascites. no rebound. normal girth. EXT: no edema. no cyanosis. good motor tone. normal muscle mass. no osteoarthropathy Neuro: CN 2-12 intact. alert. coherent. verbal. MAEx4. No rigidity. Pupils symmetrical. No Psychosis. LN: no gross lymphadenopathy SKIN: no diaphoresis. wounds vacs on right and left leg in place. Diagnostic Data: Lab 24hr (CBC/BMP [facility]) 01/10/18 0426: [Embedded Image Not Available] Anion Gap 6, Est GFR ( Amer) 32, Est GFR (Non-Af Amer) 27, BUN/Creatinine Ratio 17, Glucose 117 H, Total Calcium 8.1 L, Vancomycin Trough 9.0 L 01/10/18 0425: [Embedded Image Not Available] INR 1.9 H, PT Normal Mean Secs 20.4 H, RBC 2.81 L, MCV 92.9, MCHC 30.7 L, RDW 18.3 H, MPV 9.1 L, Nucleated RBCs 0.0 Assessment and Plan Conclusion 1. ASSESSMENT AND PLAN Plan Patient is a 57 years old, morbidly obese female who [facility] and management of underlying renal impairment. Acute kidney injury secondary to bacteraemia and Vancomycin toxicity: Creatinine trending up again. Good urine output will continue to monitor. Nephrology on board. Bilateral lower extremity wounds: Continue with the wound care Vancomycin held yesterday due to elevated levels. ID on board. Type 2 diabetes: Sliding scale insulin coverage, Accu-Cheks before meals at bedtime 1800-calorie diabetic diet. Atrial fibrillation: Rate is under control. Patient is otherwise asymptomatic. INR is therapeutic we'll resume the Coumadin and recheck the pro time tomorrow morning. GI prophylaxis: PPI Anemia: Anemia workup has been ordered we'll follow up on the test results. Disclaimer This dictation was created using voice recognition software. Phonetic and/or minor grammatical errors may exist. eSign Date and Time Amadeo Cali MD Verified/Reviewed by 01/10/18 1714 BMP Collected: 01/10/2018 Status: F Source: [facility] 4:26 AM [facility] REPOSITORY Order Comment: [place]: M TYPE CODE TESTS RESULT OUT OF RANGE REFERENCE UNITS LAB L500.40041 136-145 MMOL/L Normal NA 140 LAB L500.23864 3.5-5.1 MMOL/L Normal K 3.6 LAB L500.05028 98-107 MMOL/L Low CL 97 LAB L500.98717 21-32 MMOL/L High CO2 37 LAB L500.87866 5-16 MMOL/L Normal AGAP 6 LAB L500.65800 70-100 MG/DL High GLU 117 Result Comment: 70-100- Normal Fasting; 100-125 Impaired Fasting; greater than 126 on more than one result- Diabetes. ADA guidelines. Results may be falsely elevated after the administration of Sulfapyridine. Results may be falsely depressed after the administration of Sulfasalazine. LAB L500.07966 7-26 MG/DL High BUN 33 LAB L500.28304 0.510-0.950 MG/DL High CREAT 1.930 Result Comment: Patients receiving either N-Acetylcysteine (NAC) or Metamizole prior to venipuncture, may have falsely depressed results. LAB L500.40158 15-24 Normal BUN/CREA 17 LAB L500.11235 8.5-10.1 MG/DL Low CALCIUM TOTAL 8.1 Performed By: #### L500.04660, L500.48330 #### [facility] [address] [place] [address] GFR EST Collected: 01/10/2018 Status: F Source: [facility] 4:26 AM [facility] REPOSITORY Order Comment: [place]: M TYPE CODE TESTS RESULT OUT OF RANGE REFERENCE UNITS LAB L500.92161 ML/MIN Normal IF non-AFR 27 AMER LAB L500.89278 ML/MIN Normal IF 32 AMER Performed By: #### L500.69186, L500.97612 #### [facility] [place] [address] VANC TROUGH Collected: 01/10/2018 Status: F Source: [facility] 4:26 AM [facility] REPOSITORY Order Comment: [place]: M TYPE CODE TESTS RESULT OUT OF REFERENCE UNITS RANGE LAB L520.84508 15.0-20.0 MCG/ML Low VANC TROUGH 9.0 Performed By: #### L520.24361 #### [facility] [address] [place] [address] CBC Collected: 01/10/2018 Status: F Source: [facility] 4:25 AM [facility] REPOSITORY Order Comment: [place]: M TYPE CODE TESTS RESULT OUT OF RANGE REFERENCE UNITS LAB L200.67083 4.5-11.0 K/CU MM Normal WBC 5.3 LAB L200.65193 3.90-5.30 M/CU MM Low RBC 2.81 LAB L200.18258 11.5-15.5 G/DL Low HGB 8.0 LAB L200.65253 35.0-47.0 % Low HCT 26.1 LAB L200.31472 80.0-99.0 fl Normal MCV 92.9 LAB L200.88996 32.0-36.0 GM/DL Low MCHC 30.7 LAB L200.91307 11-14.5 High RDW 18.3 LAB L200.13809 9.4-12.4 Low MPV 9.1 LAB L200.12804 150-450 K/CU MM Normal PLT 245 LAB L200.61100 Less than 1 % Normal NRBC 0.0 Performed By: #### L200.10611 #### [facility] [address] [place] [address] PT Collected: 01/10/2018 Status: F Source: [facility] 4:25 AM [facility] REPOSITORY Order Comment: [place]: M TYPE CODE TESTS RESULT OUT OF RANGE REFERENCE UNITS LAB L300.67183 0.9-1.1 High INR 1.9 Result Comment: Recommended PT INR therapeutic range for long term care administrator and prophylactic therapy is 2.0 - 3.0. For heart valve and shunt patients the range is 2.5 - 3.5. LAB L300.63926 9.4-12.0 SECONDS High 20.4 PTS Performed By: #### L300.25023 #### [facility] [address] [place] [address] # [phone] PROG.NOTE Observed: 01/09/2018 Status: UNK Source: [facility] 3:16 PM [facility] REPOSITORY [facility] Patient Name: VICKI HERNANDEZ [address] [facility] Date of : [address] [place], [place] [address] Unit Number: [id number] Progress Note-Physician Patient Status: REG RCR Attending Doctor: Amadeo Cali MD Service Date: 01/09/18 1516 Subjective S: (2 ROS minimum) ulcers of the legs, cellulitis, antibiotics on board, deangelo, with vanc toxicity, atrial fibrillation, on oral anticoagulants, mild pink buggers from nostril per patient, but no doug epistaxis, inr therapeutic at 2.0, Objective (ROS) Physical Exam Physical Examination Notes vss awake alert oriented x 3, morbid obesity, no facial asymmetry grossly, no icterus or injection, cta anteriorly, s1s2+, soft abdomen nontender, no rebound, right leg posteriomedially wound vac, left anterior distal leg wound vac, nonpitting edema chronically, generalized weakness but not focal, Diagnostic Data: Lab 24hr (CBC/BMP [facility]) 01/09/18 0622: [Embedded Image Not Available] Anion Gap 9, Est GFR ( Amer) 30, Est GFR (Non-Af Amer) 25, BUN/Creatinine Ratio 15, Glucose 118 H, Total Calcium 8.5, INR 2.0 H, PT Normal Mean Secs 21.9 H Assessment and Plan Conclusion 1. ASSESSMENT AND PLAN Patient is a 57 years old, morbidly obese female who is admitted to [facility] for further wound care and management of underlying renal impairment. Acute kidney injury secondary to bacteraemia and Vancomycin toxicity: Creatinine trending up again. Good urine output will continue to monitor. Nephrology on board. Bilateral lower extremity wounds: Continue with the wound care Vancomycin held yesterday due to elevated levels. ID on board. Type 2 diabetes: Sliding scale insulin coverage, Accu-Cheks before meals at bedtime 1800-calorie diabetic diet. Atrial fibrillation: Rate is under control. Patient is otherwise asymptomatic. INR is therapeutic cont coumadin and following INR will give 5 mg coumadin today, recheck in a.m. epistaxis, follow the nose bleed, minimize trauma to mucosa, and try keep inr lower side of therapeutic, GI prophylaxis: PPI Anemia: Anemia workup has been ordered we'll follow up on the test results. Disclaimer This dictation was created using voice recognition software. Phonetic and/or minor grammatical errors may exist. eSign Date and Time Rafael Ye MD Verified/Reviewed by 01/09/18 1557 PT Collected: 01/09/2018 Status: F Source: [facility] 6:22 AM [facility] REPOSITORY Order Comment: [place]: M TYPE CODE TESTS RESULT OUT OF RANGE REFERENCE UNITS LAB L300.58011 0.9-1.1 High INR 2.0 Result Comment: Recommended PT INR therapeutic range for senior living and prophylactic therapy is 2.0 - 3.0. For heart valve and shunt patients the range is 2.5 - 3.5. LAB L300.80226 9.4-12.0 SECONDS High 21.9 PTS Performed By: #### L300.95567 #### [facility] [address] [place] [address] BMP Collected: 01/09/2018 Status: F Source: [facility] 6:22 AM [facility] REPOSITORY Order Comment: [place]: M TYPE CODE TESTS RESULT OUT OF RANGE REFERENCE UNITS LAB L500.39827 136-145 MMOL/L Normal NA 143 LAB L500.52801 3.5-5.1 MMOL/L Normal K 3.6 LAB L500.53365 98-107 MMOL/L Low CL 97 LAB L500.96204 21-32 MMOL/L High CO2 37 LAB L500.61029 5-16 MMOL/L Normal AGAP 9 LAB L500.77148 70-100 MG/DL High GLU 118 Result Comment: 70-100- Normal Fasting; 100-125 Impaired Fasting; greater than 126 on more than one result- Diabetes. ADA guidelines. Results may be falsely elevated after the administration of Sulfapyridine. Results may be falsely depressed after the administration of Sulfasalazine. LAB L500.91334 7-26 MG/DL High BUN 31 LAB L500.14755 0.510-0.950 MG/DL High CREAT 2.030 Result Comment: Patients receiving either N-Acetylcysteine (NAC) or Metamizole prior to venipuncture, may have falsely depressed results. LAB L500.30046 15-24 Normal BUN/CREA 15 LAB L500.97936 8.5-10.1 MG/DL Normal CALCIUM TOTAL 8.5 Performed By: #### L500.88577, L500.11437 #### [facility] [address] [place] [address] GFR EST Collected: 01/09/2018 Status: F Source: [facility] 6:22 AM [facility] REPOSITORY Order Comment: [place]: TYPE CODE TESTS RESULT OUT OF RANGE REFERENCE UNITS LAB L500.79688 ML/MIN Normal IF non-AFR 25 AMER LAB L500.04570 ML/MIN Normal IF 30 AMER Performed By: #### L500.84042, L500.98360 #### [facility] [address] [place] [address] PROG.NOTE Observed: 01/08/2018 Status: UNK Source: [facility] 1:21 PM [facility] REPOSITORY [facility] Patient Name: VICKI HERNANDEZ [address] [facility] Date of : [address] [address] Unit Number: [id number] Progress Note-Physician Patient Status: REG RCR Attending Doctor: Amadeo Cali MD Service Date: 01/08/18 1321 Subjective S: (2 ROS minimum) chart reviewed, ulcers of the legs, cellulitis, antibiotics on board, deangelo, with vanc toxicity, Objective (ROS) Physical Exam Physical Examination Notes vss awake alert oriented x 3, morbid obesity, no facial asymmetry grossly, no icterus or injection, cta anteriorly, s1s2+, soft abdomen nontender, no rebound, right leg posteriomedially wound vac, left anterior distal leg wound vac, nonpitting edema chronically, generalized weakness but not focal, Diagnostic Data: Lab 24hr (CBC/BMP [facility]) 01/08/18 0553: [Embedded Image Not Available] Anion Gap 7, Est GFR ( Amer) 30, Est GFR (Non-Af Amer) 25, BUN/Creatinine Ratio 15, Glucose 106 H, Total Calcium 7.7 L, Magnesium 1.7, INR 2.7 H, PT Normal Mean Secs 29.2 H, Vancomycin Trough 13.9 L Assessment and Plan Conclusion 1. ASSESSMENT AND PLAN Patient is a 57 years old, morbidly obese female who [facility] and management of underlying renal impairment. Acute kidney injury secondary to bacteraemia and Vancomycin toxicity: Creatinine trending up again. Good urine output will continue to monitor. Nephrology on board. Bilateral lower extremity wounds: Continue with the wound care Vancomycin held yesterday due to elevated levels. ID on board. Type 2 diabetes: Sliding scale insulin coverage, Accu-Cheks before meals at bedtime 1800-calorie diabetic diet. Atrial fibrillation: Rate is under control. Patient is otherwise asymptomatic. INR is therapeutic cont coumadin and following INR GI prophylaxis: PPI Anemia: Anemia workup has been ordered we'll follow up on the test results. Disclaimer This dictation was created using voice recognition software. Phonetic and/or minor grammatical errors may exist. eSign Date and Time Rafael Ye MD Verified/Reviewed by 01/08/18 1640 PT Collected: 01/08/2018 Status: F Source: [facility] 5:53 AM [facility] REPOSITORY Order Comment: [place]: M TYPE CODE TESTS RESULT OUT OF RANGE REFERENCE UNITS LAB L300.88637 0.9-1.1 High INR 2.7 Result Comment: Recommended PT INR therapeutic range for long term care administrator and prophylactic therapy is 2.0 - 3.0. For heart valve and shunt patients the range is 2.5 - 3.5. LAB L300.33824 9.4-12.0 SECONDS High 29.2 PTS Performed By: #### L300.71225 #### [facility] [place] [address] BMP Collected: 01/08/2018 Status: F Source: [facility] 5:53 AM [facility] REPOSITORY Order Comment: [place]: M TYPE CODE TESTS RESULT OUT OF RANGE REFERENCE UNITS LAB L500.28703 136-145 MMOL/L Normal NA 141 LAB L500.03532 3.5-5.1 MMOL/L Low K 3.4 LAB L500.92096 98-107 MMOL/L Low CL 97 LAB L500.76595 21-32 MMOL/L High CO2 37 LAB L500.57392 5-16 MMOL/L Normal AGAP 7 LAB L500.55472 70-100 MG/DL High GLU 106 Result Comment: 70-100- Normal Fasting; 100-125 Impaired Fasting; greater than 126 on more than one result- Diabetes. ADA guidelines. Results may be falsely elevated after the administration of Sulfapyridine. Results may be falsely depressed after the administration of Sulfasalazine. LAB L500.44994 7-26 MG/DL High BUN 30 LAB L500.96815 0.510-0.950 MG/DL High CREAT 2.060 Result Comment: Patients receiving either N-Acetylcysteine (NAC) or Metamizole prior to venipuncture, may have falsely depressed results. LAB L500.43497 15-24 Normal BUN/CREA 15 LAB L500.84233 8.5-10.1 MG/DL Low CALCIUM TOTAL 7.7 Performed By: #### L500.04711, L500.65501, L500.25232 #### [facility] [address] [place] [address] GFR EST Collected: 01/08/2018 Status: F Source: [facility] 5:53 AM [facility] REPOSITORY Order Comment: [place]: M TYPE CODE TESTS RESULT OUT OF RANGE REFERENCE UNITS LAB L500.06160 ML/MIN Normal IF non-AFR 25 AMER LAB L500.50798 ML/MIN Normal IF 30 AMER Performed By: #### L500.48027, L500.55823, L500.07175 #### [facility] [address] [place] [address] MAGNESIUM Collected: 01/08/2018 Status: F Source: [facility] 5:53 AM [facility] REPOSIT[facility] Order Comment: [place]: M TYPE CODE TESTS RESULT OUT OF RANGE REFERENCE UNITS LAB L500.95722 1.6-2.6 MG/DL Normal MAGNESIUM 1.7 Performed By: #### L500.12112, L500.47162, L500.38442 #### [facility] [address] [place] [address] VANC TROUGH Collected: 01/08/2018 Status: F Source: [facility] 5:53 AM [facility] REPOSITORY Order Comment: [place]: M TYPE CODE TESTS RESULT OUT OF REFERENCE UNITS RANGE LAB L520.69297 15.0-20.0 MCG/ML Low VANC TROUGH 13.9 Performed By: #### L520.23497 #### [facility] [address] [place] [address] PROG.NOTE Observed: 01/07/2018 Status: UNK Source: [facility] 8:31 AM [facility] REPOSITORY [facility] Patient Name: VICKI HERNANDEZ [address] [facility] Date of : [address] [place], [place] [address] Unit Number: [id number] Progress Note-Physician Patient Status: REG RCR Attending Doctor: Amadeo Cali MD Service Date: 01/07/18830 Subjective S: (2 ROS minimum) Patient has been feeling good pain is under control normal bowel movements good urine output no urinary symptoms no trouble breathing. Objective (ROS) Nursing Vitals Temp 98.2, Pulse 76, Resp 16, Blood pressure 122/78 Physical Examination Notes Pt is not in acute distress HEENT: normocephalic. PEERL. nonicteric. no thrush. no thyromegaly. good dentition. supple PULM: no tachypnea. no wheezes. no rales. fair aeration. no hyperinflation. symetrical breath sounds. no signs pneumothorax. CV: no significant gallops. no murmur. no edema. RRR. HR normal. BP as documented. good peripheral perfusion ABD: no organomegaly. soft. Nontender. no ascites. no rebound. normal girth. EXT: no edema. no cyanosis. good motor tone. normal muscle mass. no osteoarthropathy Neuro: CN 2-12 intact. alert. coherent. verbal. MAEx4. No rigidity. Pupils symmetrical. No Psychosis. LN: no gross lymphadenopathy SKIN: no diaphoresis. wounds vacs on right and left leg in place. Diagnostic Data: Lab 24hr (CBC/BMP [facility]) 01/07/18 0527: INR 2.5 H, PT Normal Mean Secs 27.9 H 01/07/18 0400: Vancomycin Trough Cancelled Assessment and Plan Conclusion 1. ASSESSMENT AND PLAN Plan Patient is a 57 years old, morbidly obese female who is admitted to [facility] for further wound care and management of underlying renal impairment. Acute kidney injury secondary to bacteraemia and Vancomycin toxicity: Creatinine trending up again. Good urine output will continue to monitor. Nephrology on board. Bilateral lower extremity wounds: Continue with the wound care Vancomycin held yesterday due to elevated levels. ID on board. Type 2 diabetes: Sliding scale insulin coverage, Accu-Cheks before meals at bedtime 1800-calorie diabetic diet. Atrial fibrillation: Rate is under control. Patient is otherwise asymptomatic. INR is therapeutic we'll resume the Coumadin and recheck the pro time tomorrow morning. GI prophylaxis: PPI Anemia: Anemia workup has been ordered we'll follow up on the test results. Disclaimer This dictation was created using voice recognition software. Phonetic and/or minor grammatical errors may exist. eSign Date and Time Amadeo Cali MD Verified/Reviewed by 01/11/18 0749 PT Collected: 01/07/2018 Status: F Source: [facility] 5:27 AM [facility] REPOSITORY Order Comment: [place]: M TYPE CODE TESTS RESULT OUT OF RANGE REFERENCE UNITS LAB L300.56934 0.9-1.1 High INR 2.5 Result Comment: Recommended PT INR therapeutic range for senior living and prophylactic therapy is 2.0 - 3.0. For heart valve and shunt patients the range is 2.5 - 3.5. LAB L300.77714 9.4-12.0 SECONDS High 27.9 PTS Performed By: #### L300.64984 #### [facility] [address] [place] [address] PROG.NOTE Observed: 01/06/2018 Status: UNK Source: [facility] 1:09 PM [facility] REPOSITORY [facility] Patient Name: VICKI HERNANDEZ [address] [facility] Date of : [address] [place] [address] Unit Number: [id number] Progress Note-Physician Patient Status: REG RCR Attending Doctor: Amadeo Cali MD Service Date: 01/06/18 1309 Subjective S: (2 ROS minimum) patient has been feeling good today. Pain is under control. No breathing issues at this time. No acute overnight events. Objective (ROS) Nursing Vitals Temp 98.2, Pulse 76, Resp 16, Blood pressure 130/76 Physical Examination Notes Pt is not in acute distress HEENT: normocephalic. PEERL. nonicteric. no thrush. no thyromegaly. good dentition. supple PULM: no tachypnea. no wheezes. no rales. fair aeration. no hyperinflation. symetrical breath sounds. no signs pneumothorax. CV: no significant gallops. no murmur. no edema. RRR. HR normal. BP as documented. good peripheral perfusion ABD: no organomegaly. soft. Nontender. no ascites. no rebound. normal girth. EXT: no edema. no cyanosis. good motor tone. normal muscle mass. no osteoarthropathy Neuro: CN 2-12 intact. alert. coherent. verbal. MAEx4. No rigidity. Pupils symmetrical. No Psychosis. LN: no gross lymphadenopathy SKIN: no diaphoresis. wounds vacs on right and left leg in place. Diagnostic Data: Lab 24hr (CBC/BMP [facility]) 01/06/18 0438: [Embedded Image Not Available] Anion Gap 8, Est GFR ( Amer) 28, Est GFR (Non-Af Amer) 23, BUN/Creatinine Ratio 17, Glucose 114 H, Total Calcium 8.2 L, INR 2.3 H, PT Normal Mean Secs 24.8 H, RBC 2.65 L, MCV 94.7, MCHC 29.9 L, RDW 18.7 H, MPV 9.2 L, Immature Gran % (Auto) 0.4, Abs Immat Gran (auto ) 0.00, Seg Neutrophils % 57.4, Lymphocytes % 22.0, Monocytes % 12.5 H, Eosinophils % 7.3 H, Basophils % 0.4, Neutrophils # 3.00, Lymphocytes # 1.10, Monocytes # 0.70, Eosinophils # 0.40, Basophils # 0.00, Nucleated RBCs 0.0, Vancomycin Trough 21.1 *H Assessment and Plan Conclusion 1. ASSESSMENT AND PLAN Plan Patient is a 57 years old, morbidly obese female who is admitted to [facility] for further wound care and management of underlying renal impairment. Acute kidney injury secondary to bacteraemia and Vancomycin toxicity: Creatinine trending up again. Good urine output will continue to monitor. Nephrology on board. Bilateral lower extremity wounds: Continue with the wound care Vancomycin held yesterday due to elevated levels. ID on board. Type 2 diabetes: Sliding scale insulin coverage, Accu-Cheks before meals at bedtime 1800-calorie diabetic diet. Atrial fibrillation: Rate is under control. Patient is otherwise asymptomatic. INR elevated, coumadin held INR and CBC in AM GI prophylaxis: PPI Anemia: Hgb has been trending down. will check stool for occult blood INR in am check iron panel. Disclaimer This dictation was created using voice recognition software. Phonetic and/or minor grammatical errors may exist. eSign Date and Time VirajAmadeo MD Verified/Reviewed by 01/06/18 1311 CBC W/DIFF Collected: 01/06/2018 Status: F Source: [facility] 4:38 AM [facility] REPOSITORY Order Comment: [place]: TYPE CODE TESTS RESULT OUT OF RANGE REFERENCE UNITS LAB L200.10021 4.5-11.0 K/CU MM WBC Normal 5.2 LAB L200.07609 3.90-5.30 M/CU MM Low RBC 2.65 LAB L200.44813 11.5-15.5 G/DL Low HGB 7.5 LAB L200.20381 35.0-47.0 % Low HCT 25.1 LAB L200.84924 80.0-99.0 fl MCV Normal 94.7 LAB L200.88980 32.0-36.0 GM/DL Low MCHC 29.9 LAB L200.78951 11-14.5 High RDW 18.7 LAB L200.28951 9.4-12.4 Low MPV 9.2 LAB L200.41831 150-450 K/CU MM PLT Normal 201 LAB L200.77878 45-75 % NEUTROPHILS Normal % 57.4 LAB L200.55283 Less than 2 % IMMATURE Normal GRAN % 0.4 LAB L200.60006 20-40 % LYMPH % Normal 22.0 LAB L200.11684 2-10 % High MONOCYTE % 12.5 LAB L200.42877 0-5 % High EOSINOPHIL % 7.3 LAB L200.53810 0-2 % BASOPHIL % Normal 0.4 LAB L200.21399 2.0-8.3 K/CU MM NEUTROPHIL Normal ABS 3.00 LAB L200.76659 Less than 2 K/CU MM IMMATR GRAN Normal ABS 0.00 LAB L200.20857 0.9-4.4 K/CU MM LYMPH ABS Normal 1.10 LAB L200.28967 0.1-1.1 K/CU MM MONO ABS Normal 0.70 LAB L200.19617 0-0.5 K/CU MM EOS ABS Normal 0.40 LAB L200.20209 0-0.2 K/CU MM BASO ABS Normal 0.00 LAB L200.99091 Less than 1 % NRBC Normal 0.0 Performed By: #### L200.84075 #### [facility] [address] [place] [address] PT Collected: 01/06/2018 Status: F Source: [facility] 4:38 AM [facility] REPOSITORY Order Comment: [place]: M TYPE CODE TESTS RESULT OUT OF RANGE REFERENCE UNITS LAB L300.20883 0.9-1.1 High INR 2.3 Result Comment: Recommended PT INR therapeutic range for long term care administrator and prophylactic therapy is 2.0 - 3.0. For heart valve and shunt patients the range is 2.5 - 3.5. LAB L300.73143 9.4-12.0 SECONDS High 24.8 PTS Performed By: #### L300.68386 #### [facility] [address] [place] [address] BMP Collected: 01/06/2018 Status: F Source: [facility] 4:38 AM [facility] REPOSITORY Order Comment: [place]: M TYPE CODE TESTS RESULT OUT OF RANGE REFERENCE UNITS LAB L500.18525 136-145 MMOL/L Normal NA 143 LAB L500.98878 3.5-5.1 MMOL/L Normal K 3.6 LAB L500.48296 98-107 MMOL/L Normal CL 100 LAB L500.77373 21-32 MMOL/L High CO2 35 LAB L500.33772 5-16 MMOL/L Normal AGAP 8 LAB L500.85785 70-100 MG/DL High GLU 114 Result Comment: 70-100- Normal Fasting; 100-125 Impaired Fasting; greater than 126 on more than one result- Diabetes. ADA guidelines. Results may be falsely elevated after the administration of Sulfapyridine. Results may be falsely depressed after the administration of Sulfasalazine. LAB L500.91022 7-26 MG/DL High BUN 36 LAB L500.71466 0.510-0.950 MG/DL High CREAT 2.150 Result Comment: Patients receiving either N-Acetylcysteine (NAC) or Metamizole prior to venipuncture, may have falsely depressed results. LAB L500.84808 15-24 Normal BUN/CREA 17 LAB L500.56655 8.5-10.1 MG/DL Low CALCIUM TOTAL 8.2 Performed By: #### L500.17316, L500.65503 #### [facility] [address] [place] [address] GFR EST Collected: 01/06/2018 Status: F Source: [facility] 4:38 AM [facility] REPOSITORY Order Comment: [place]: M TYPE CODE TESTS RESULT OUT OF RANGE REFERENCE UNITS LAB L500.38407 ML/MIN Normal IF non-AFR 23 AMER LAB L500.30257 ML/MIN Normal IF 28 AMER Performed By: #### L500.51738, L500.94608 #### [facility] [address] [place] [address] VANC TROUGH Collected: 01/06/2018 Status: F Source: [facility] 4:38 AM [facility] REPOSITORY Order Comment: [place]: M : RANDOM VANCOMYCIN TROUGH TYPE CODE TESTS RESULT OUT OF REFERENCE UNITS RANGE LAB L520.07867 15.0-20.0 MCG/ML High alert VANC TROUGH 21.1 Result Comment: Critical Result(s) Called at: 06:32:45 on 01/06/2018 by: Ranjana Stewart to and read back by: KAYE HERNANDEZ Performed By: #### L520.57373 #### [facility] [address] [place] [address] PROG.NEPH Observed: 01/05/2018 Status: UNK Source: [facility] 3:43 PM [facility] Patient Name: VICKI HERNANDEZ [address] [facility] Date of : [address] [place] [address] Unit Number: [id number] Progress Note-Nephrology Patient Status: REG RCR Attending Doctor: Amadeo Cali MD Service Date: 01/05/18 1150 Progress Note-Nephrology([facility]) Subjective Subjective: Resting comfortably. No acute evenst overnight. Objective Vital Signs: stable Exam: Lungs - clear ant Heart - RRR LE - edema 1+; wound vac in situ Medications: reviewed Lab Results: Lab 24hr (CBC/BMP [facility]) 01/05/18 0844: Random Vancomycin 24.2 01/05/18 0423: INR 3.1 H, PT Normal Mean Secs 34.1 H, Vancomycin Trough 25.6 *H Assessment/Plan Plan 1. AK I - creatinine stable. Good urine output. Continue current medications. Daily labs. Disclaimer This dictation was created using voice recognition software. Phonetic and/or minor grammatical errors may exist. eSign Date and Time Cameron Ortega MD Verified/Reviewed by 01/05/18 1545 PROG.NOTE Observed: 01/05/2018 Status: UNK Source: [facility] 12:50 PM [facility] Patient Name: VICKI HERNANDEZ [address] Date of : [address] [place] [address] Unit Number: [id number] Progress Note-Physician Patient Status: REG RCR Attending Doctor: Amadeo Cali MD Service Date: 01/05/18 1250 Subjective S: (2 ROS minimum) Patient has been feeling good. Pain is under control. Slept well last night. Objective (ROS) Nursing Vitals Temp 98.0, Pulse 76, Resp 16, Blood pressure 132/78 Physical Examination Notes Pt is not in acute distress HEENT: normocephalic. PEERL. nonicteric. no thrush. no thyromegaly. good dentition. supple PULM: no tachypnea. no wheezes. no rales. fair aeration. no hyperinflation. symetrical breath sounds. no signs pneumothorax. CV: no significant gallops. no murmur. no edema. RRR. HR normal. BP as documented. good peripheral perfusion ABD: no organomegaly. soft. Nontender. no ascites. no rebound. normal girth. EXT: no edema. no cyanosis. good motor tone. normal muscle mass. no osteoarthropathy Neuro: CN 2-12 intact. alert. coherent. verbal. MAEx4. No rigidity. Pupils symmetrical. No Psychosis. LN: no gross lymphadenopathy SKIN: no diaphoresis. wounds vacs on right and left leg in place. NO discharge. Diagnostic Data: Lab 24hr (CBC/BMP [facility]) 01/05/18 0844: Random Vancomycin 24.2 01/05/18 0423: INR 3.1 H, PT Normal Mean Secs 34.1 H, Vancomycin Trough 25.6 *H Assessment and Plan Conclusion 1. ASSESSMENT AND PLAN Plan Patient is a 57 years old, morbidly obese female who is admitted to [facility] for further wound care and management of underlying renal impairment. Acute kidney injury secondary to bacteraemia and Vancomycin toxicity: Creatinine trending up again. Good urine output will continue to monitor. Nephrology on board. Bilateral lower extremity wounds: Continue with the wound care Vancomycin held yesterday due to elevated levels. ID on board. Type 2 diabetes: Sliding scale insulin coverage, Accu-Cheks before meals at bedtime 1800-calorie diabetic diet. Atrial fibrillation: Rate is under control. Patient is otherwise asymptomatic. INR elevated, coumadin held INR and CBC in AM GI prophylaxis: PPI Disclaimer This dictation was created using voice recognition software. Phonetic and/or minor grammatical errors may exist. eSign Date and Time Amadeo Cali MD Verified/Reviewed by 01/05/18 1253 PROGRESS Observed: 01/05/2018 Status: COMPLETED Source: [place] 11:13 AM [facility] REPOSITORY HNO ID: [id number] Author: Melvina Emanuel) Sung Service: (none) Author Type: Registered Nurse Type: Progress Notes Filed: 01/05/2018 11:16 AM Note Text: TC to [facility], Adriana states pt is till inpatient. Transferred to [facility] , left message to please call [facility] back regarding any possible discharge planning. Melvina Almaraz RN January 05, 2018 11:15 AM [facility] Collected: 01/05/2018 Status: F Source: [facility] 8:44 AM [facility] REPOSITORY Order Comment: [place]: M : PRIOR TO EACH VANC DOSE, HOLD IF GREATER THAN 20 TYPE CODE TESTS RESULT OUT OF RANGE REFERENCE UNITS LAB L520.30984 MCG/ML Normal VANC RANDOM 24.2 Performed By: #### L520.85206 #### [facility] [address] [place] [address] PT Collected: 01/05/2018 Status: F Source: [facility] 4:23 AM [facility] REPOSITORY Order Comment: [place]: M TYPE CODE TESTS RESULT OUT OF RANGE REFERENCE UNITS LAB L300.83487 0.9-1.1 High INR 3.1 Result Comment: Recommended PT INR therapeutic range for long term care administrator and prophylactic therapy is 2.0 - 3.0. For heart valve and shunt patients the range is 2.5 - 3.5. LAB L300.52274 9.4-12.0 SECONDS High 34.1 PTS Performed By: #### L300.08356 #### [facility] [address] [place] [address] VANC TROUGH Collected: 01/05/2018 Status: F Source: [facility] 4:23 AM [facility] REPOSITORY Order Comment: [place]: M TYPE CODE TESTS RESULT OUT OF REFERENCE UNITS RANGE LAB L520.49244 15.0-20.0 MCG/ML High alert VANC TROUGH 25.6 Result Comment: Critical Result(s) Called at: 05:05:34 on 01/05/2018 by: Shanthi Zuñiga to and read back by: JEANNE RIVERS Performed By: #### L520.27413 #### [facility] [address] [place] [address] PROG.NEPH Observed: 01/04/2018 Status: UNK Source: [facility] 2:38 PM [facility] Patient Name: VICKI HERNANDEZ [address] [facility] Date of : [address] [place] [address] Unit Number: [id number] Progress Note-Nephrology Patient Status: REG RCR Attending Doctor: Amadeo Cali MD Service Date: 01/04/18 1438 Progress Note-Nephrology([facility]) Subjective Subjective: Patient seen and examined. Resting comfortably. Overall feels better. Denies shortness of breath. Good urine output Objective Vital Signs: Stable. U/O 3.7 L. Exam: Lungs-clear anteriorly Heart-regular Lower extremity-unchanged Medications: Reviewed Radiology Impressions: Recent Impressions (LAST) RADIOLOGY - PORTABLE CHEST 12/30 1223 Report Impression - Status: SIGNED Entered: 12/30/2017 1255 IMPRESSION: Cardiomegaly with pulmonary edema Impression By: SYDNEE MARTINEZ M.D. Lab Results: Lab 24hr (CBC/BMP [facility]) 01/04/18 0900: Random Vancomycin Cancelled 01/04/18 0407: [Embedded Image Not Available] Anion Gap 8, Est GFR ( Amer) 31, Est GFR (Non-Af Amer) 26, BUN/Creatinine Ratio 20, Glucose 117 H, Total Calcium 8.6, INR 2.4 H, PT Normal Mean Secs 26.8 H, RBC 2.60 L, MCV 94.6, MCHC 30.5 L, RDW 18.7 H, MPV 9.0 L, Immature Gran % (Auto) 0.3, Abs Immat Gran (auto ) 0.00, Seg Neutrophils % 66.7, Lymphocytes % 13.7 L, Monocytes % 13.7 H, Eosinophils % 5.3 H, Basophils % 0.3, Neutrophils # 4.60, Lymphocytes # 0.90, Monocytes # 0.90, Eosinophils # 0.40, Basophils # 0.00, Nucleated RBCs 0.0, Vancomycin Trough 29.9 *H Assessment/Plan Plan 1. AK I - stable azotemia. Good urine output. Continue current medications. Daily labs. Disclaimer This dictation was created using voice recognition software. Phonetic and/or minor grammatical errors may exist. eSign Date and Time Cameron Ortega MD Verified/Reviewed by 01/04/18 1439 PROG.NOTE Observed: 01/04/2018 Status: UNK Source: [facility] 8:12 AM [facility] Patient Name: VICKI HERNANDEZ [address] Date of : [address] [place] [address] Unit Number: [id number] Progress Note-Physician Patient Status: REG RCR Attending Doctor: Amadeo Cali MD Service Date: 01/04/18 0812 Subjective S: (2 ROS minimum) Patient seen and examined chart reviewed overnight events noted currently resting comfortably denies any pain no breathing issues at this time. Objective (ROS) Nursing Vitals Physical Exam: Neurological / Psychiatric Alert, Orientation X3 HEENT No Trauma, EOMI, PERRL Neck No Bruit, No Mass, No JVD Respiratory Normal Breathing Effort, Clear Lungs Cardiovascular Heart RRR, No M / R / G, No Clubbing, No Cyanosis Gastrointestinal Normal Bowel Sounds, No Hepatosplenomegally, Non Tender, No Mass Musculoskeletal 2+ pitting pedal edema, thickened skin of the legs. Skin erythematous skin thigh region. Wound vac right leg and two small ones in the left leg. Diagnostic Data: Lab 24hr (CBC[facility]) 01/04/18 0407: [Embedded Image Not Available] Anion Gap 8, Est GFR ( Amer) 31, Est GFR (Non-Af Amer) 26, BUN/Creatinine Ratio 20, Glucose 117 H, Total Calcium 8.6, INR 2.4 H, PT Normal Mean Secs 26.8 H, RBC 2.60 L, MCV 94.6, MCHC 30.5 L, RDW 18.7 H, MPV 9.0 L, Immature Gran % (Auto) 0.3, Abs Immat Gran (auto ) 0.00, Seg Neutrophils % 66.7, Lymphocytes % 13.7 L, Monocytes % 13.7 H, Eosinophils % 5.3 H, Basophils % 0.3, Neutrophils # 4.60, Lymphocytes # 0.90, Monocytes # 0.90, Eosinophils # 0.40, Basophils # 0.00, Nucleated RBCs 0.0, Vancomycin Trough 29.9 *H 01/03/18 0840: Random Vancomycin 33.7 Assessment and Plan Conclusion 1. ASSESSMENT AND PLAN Plan Patient is a 57 years old, morbidly obese female who [facility] and management of underlying renal impairment. Acute kidney injury secondary to bacteraemia and Vancomycin toxicity: Creatinine trending up again. Good urine output will continue to monitor. Nephrology on board. Bilateral lower extremity wounds: Continue with the wound care Vancomycin held yesterday due to elevated levels. ID consultation obtained. Type 2 diabetes: Sliding scale insulin coverage, Accu-Cheks before meals at bedtime 1800-calorie diabetic diet. Atrial fibrillation: Rate is under control. Patient is otherwise asymptomatic. INR therepeutic. INR and CBC in AM GI prophylaxis: PPI Disclaimer This dictation was created using voice recognition software. Phonetic and/or minor grammatical errors may exist. eSign Date and Time Amadeo Cali MD Verified/Reviewed by 01/05/18 0819 PT Collected: 01/04/2018 Status: F Source: [facility] 4:07 AM [facility] REPOSITORY Order Comment: [place]: M TYPE CODE TESTS RESULT OUT OF RANGE REFERENCE UNITS LAB L300.52860 0.9-1.1 High INR 2.4 Result Comment: Recommended PT INR therapeutic range for long term care administrator and prophylactic therapy is 2.0 - 3.0. For heart valve and shunt patients the range is 2.5 - 3.5. LAB L300.19014 9.4-12.0 SECONDS High 26.8 PTS Performed By: #### L300.53159 #### [facility] [address]# [phone] CBC W/DIFF Collected: 01/04/2018 Status: F Source: [facility] 4:07 AM [facility] REPOSITORY Order Comment: [place]: M TYPE CODE TESTS RESULT OUT OF RANGE REFERENCE UNITS LAB L200.75515 4.5-11.0 K/CU MM WBC Normal 6.9 LAB L200.55773 3.90-5.30 M/CU MM Low RBC 2.60 LAB L200.09192 11.5-15.5 G/DL Low HGB 7.5 LAB L200.73189 35.0-47.0 % Low HCT 24.6 LAB L200.04536 80.0-99.0 fl MCV Normal 94.6 LAB L200.72481 32.0-36.0 GM/DL Low MCHC 30.5 LAB L200.20350 11-14.5 High RDW 18.7 LAB L200.57859 9.4-12.4 Low MPV 9.0 LAB L200.25815 150-450 K/CU MM PLT Normal 192 LAB L200.37331 45-75 % NEUTROPHILS Normal % 66.7 LAB L200.92002 Less than 2 % IMMATURE Normal GRAN % 0.3 LAB L200.69942 20-40 % Low LYMPH % 13.7 LAB L200.72400 2-10 % High MONOCYTE % 13.7 LAB L200.30724 0-5 % High EOSINOPHIL % 5.3 LAB L200.74229 0-2 % BASOPHIL % Normal 0.3 LAB L200.04362 2.0-8.3 K/CU MM NEUTROPHIL Normal ABS 4.60 LAB L200.55493 Less than 2 K/CU MM IMMATR GRAN Normal ABS 0.00 LAB L200.92834 0.9-4.4 K/CU MM LYMPH ABS Normal 0.90 LAB L200.33386 0.1-1.1 K/CU MM MONO ABS Normal 0.90 LAB L200.08366 0-0.5 K/CU MM EOS ABS Normal 0.40 LAB L200.93509 0-0.2 K/CU MM BASO ABS Normal 0.00 LAB L200.59282 Less than 1 % NRBC Normal 0.0 Performed By: #### L200.19371 #### [facility] [address] [place] [address] BMP Collected: 01/04/2018 Status: F Source: [facility] 4:07 AM [facility] REPOSITORY Order Comment: [place]: TYPE CODE TESTS RESULT OUT OF RANGE REFERENCE UNITS LAB L500.35089 136-145 MMOL/L Normal NA 141 LAB L500.91865 3.5-5.1 MMOL/L Normal K 4.0 LAB L500.53664 98-107 MMOL/L Normal CL 100 LAB L500.87766 21-32 MMOL/L High CO2 33 LAB L500.37867 5-16 MMOL/L Normal AGAP 8 LAB L500.64208 70-100 MG/DL High GLU 117 Result Comment: 70-100- Normal Fasting; 100-125 Impaired Fasting; greater than 126 on more than one result- Diabetes. ADA guidelines. Results may be falsely elevated after the administration of Sulfapyridine. Results may be falsely depressed after the administration of Sulfasalazine. LAB L500.22951 7-26 MG/DL High BUN 40 LAB L500.09618 0.510-0.950 MG/DL High CREAT 2.000 Result Comment: Patients receiving either N-Acetylcysteine (NAC) or Metamizole prior to venipuncture, may have falsely depressed results. LAB L500.58510 15-24 Normal BUN/CREA 20 LAB L500.93126 8.5-10.1 MG/DL Normal CALCIUM TOTAL 8.6 Performed By: #### L500.39582, L500.93092 #### [facility] [address] [place] [address] GFR EST Collected: 01/04/2018 Status: F Source: [facility] 4:07 AM [facility] REPOSITORY Order Comment: [place]: M TYPE CODE TESTS RESULT OUT OF RANGE REFERENCE UNITS LAB L500.19524 ML/MIN Normal IF non-AFR 26 AMER LAB L500.93084 ML/MIN Normal IF 31 AMER Performed By: #### L500.28511, L500.22711 #### [facility] [address] [place] [address] VANC TROUGH Collected: 01/04/2018 Status: F Source: [facility] 4:07 AM [facility] REPOSITORY Order Comment: [place]: M TYPE CODE TESTS RESULT OUT OF REFERENCE UNITS RANGE LAB L520.49057 15.0-20.0 MCG/ML High alert VANC TROUGH 29.9 Result Comment: Critical Result(s) Called at: 05:29:01 on 01/04/2018 by: Ranjana Stewart to and read back by: AMBER HERNANDEZ Performed By: #### L520.93087 #### [facility] [address] [place] [address] VANC RANDOM Collected: 01/03/2018 Status: C Source: [facility] 8:40 AM [facility] REPOSITORY Order Comment: [place]: M : PRIOR TO EACH VANC DOSE, HOLD IF GREATER THAN 20 TYPE CODE TESTS RESULT OUT OF RANGE REFERENCE UNITS LAB L520.08573 MCG/ML Normal VANC RANDOM 33.7 Result Comment: CRITICAL VALUE(S) VERIFIED AND CALLED TO AND READ BACK BY GIORGIO GARCIA RN AT 0944 01/03/18 BY ELA MAYERS 01/03/18 0944: VANC RANDOM previously reported as: 33.7 MCG/ML Performed By: #### L520.21623 #### [facility] [address] [place] [address] PROG.NOTE Observed: 01/03/2018 Status: UNK Source: [facility] 5:49 AM [facility] REPOSITORY [facility] Patient Name: VICKI HERNANDEZ [address] Date of : [address] [place] [address] Unit Number: [id number] Progress Note-Physician Patient Status: REG RCR Attending Doctor: Amadeo Cali MD Service Date: 01/03/18 0549 Subjective S: (2 ROS minimum) Patient seen and examined. Pain is under control. No trouble breathing. Weekend events noted. Objective (ROS) Nursing Vitals Temperature 97.8, pulse 80, respiration 18, blood pressure 116/22, 90% saturation. Physical Exam: Neurological / Psychiatric Alert, Orientation X3 HEENT No Trauma, EOMI, PERRL Neck No Bruit, No Mass, No JVD Respiratory Normal Breathing Effort, Clear Lungs Cardiovascular Heart RRR, No M / R / G, No Clubbing, No Cyanosis Gastrointestinal Normal Bowel Sounds, No Hepatosplenomegally, Non Tender, No Mass Musculoskeletal 2+ pitting pedal edema, thickened skin of the legs. Skin erythematous skin thigh region. Wound vac right leg and two small ones in the left leg. Site clean and dry. Diagnostic Data: Lab 24hr (CBC/BMP [facility]) 01/03/18 0450: [Embedded Image Not Available] Anion Gap 7, Est GFR ( Amer) 31, Est GFR (Non-Af Amer) 26, BUN/Creatinine Ratio 20, Glucose 143 H, Total Calcium 8.6, INR 4.1 H, PT Normal Mean Secs 46.0 H 01/02/18 0908: Random Vancomycin 35.7 01/02/18 0602: [Embedded Image Not Available] Anion Gap 7, Est GFR ( Amer) 33, Est GFR (Non-Af Amer) 27, BUN/Creatinine Ratio 18, Glucose 117 H, Total Calcium 8.4 L, INR 3.9 H, PT Normal Mean Secs 43.9 H, RBC 2.83 L, MCV 94.3, MCHC 30.0 L, RDW 18.9 H, MPV 9.2 L, Nucleated RBCs 0.0 Assessment and Plan Conclusion 1. ASSESSMENT AND PLAN Plan patient is a 57 years old, morbidly obese female who [facility] and management of underlying renal impairment. Acute kidney injury secondary to bacteraemia and Vancomycin toxicity: Creatinine stable Good urine output will continue to monitor. Bilateral lower extremity wounds: Continue with the wound care Type 2 diabetes: Sliding scale insulin coverage, Accu-Cheks before meals at bedtime 1800-calorie diabetic diet. Atrial fibrillation: Rate is under control. Patient is otherwise asymptomatic. INR elevated. Hold coumadin today INR and CBC in AM GI prophylaxis: PPI Disclaimer This dictation was created using voice recognition software. Phonetic and/or minor grammatical errors may exist. eSign Date and Time Amadeo Cali MD Verified/Reviewed by 01/04/18 0804 PT Collected: 01/03/2018 Status: F Source: [facility] 4:50 AM [facility] REPOSITORY Order Comment: [place]: M TYPE CODE TESTS RESULT OUT OF RANGE REFERENCE UNITS LAB L300.34130 0.9-1.1 High INR 4.1 Result Comment: Recommended PT INR therapeutic range for long term care administrator and prophylactic therapy is 2.0 - 3.0. For heart valve and shunt patients the range is 2.5 - 3.5. LAB L300.04643 9.4-12.0 SECONDS High 46.0 PTS Performed By: #### L300.48357 #### [facility] [address] [place] [address] BMP Collected: 01/03/2018 Status: F Source: [facility] 4:50 AM [facility] REPOSITORY Order Comment: [place]: M TYPE CODE TESTS RESULT OUT OF RANGE REFERENCE UNITS LAB L500.90823 136-145 MMOL/L Normal NA 140 LAB L500.81780 3.5-5.1 MMOL/L Normal K 4.0 LAB L500.40676 98-107 MMOL/L Normal CL 101 LAB L500.03937 21-32 MMOL/L High CO2 33 LAB L500.29203 5-16 MMOL/L Normal AGAP 7 LAB L500.47875 70-100 MG/DL High GLU 143 Result Comment: 70-100- Normal Fasting; 100-125 Impaired Fasting; greater than 126 on more than one result- Diabetes. ADA guidelines. Results may be falsely elevated after the administration of Sulfapyridine. Results may be falsely depressed after the administration of Sulfasalazine. LAB L500.03632 7-26 MG/DL High BUN 40 LAB L500.68010 0.510-0.950 MG/DL High CREAT 1.970 Result Comment: Patients receiving either N-Acetylcysteine (NAC) or Metamizole prior to venipuncture, may have falsely depressed results. LAB L500.67026 15-24 Normal BUN/CREA 20 LAB L500.18215 8.5-10.1 MG/DL Normal CALCIUM TOTAL 8.6 Performed By: #### L500.37791, L500.18609 #### [facility] [address] [place] [address] GFR EST Collected: 01/03/2018 Status: F Source: [facility] 4:50 AM [facility] REPOSITORY Order Comment: [place]: TYPE CODE TESTS RESULT OUT OF RANGE REFERENCE UNITS LAB L500.96992 ML/MIN Normal IF non-AFR 26 AMER LAB L500.67202 ML/MIN Normal IF 31 AMER Performed By: #### L500.73994, L500.25915 #### [facility] [address] [place] [address] PROG.NOTE Observed: 01/02/2018 Status: UNK Source: [facility] 10:53 PM [facility] Patient Name: VICKI HERNANDEZ [address] [facility] Date of : [address] [address] Unit Number: [id number] Progress Note-Physician Patient Status: REG RCR Attending Doctor: Amadeo Cali MD Service Date: 01/02/18 2253 Subjective S: (2 ROS minimum) Laboratory Tests Test Result Date Time Chemistry Sodium (136 - 145 MMOL/L) 140 01/02 0602 Potassium (3.5 - 5.1 MMOL/L) 4.3 01/02 0602 Chloride (98 - 107 MMOL/L) 102 01/02 0602 Carbon Dioxide (21 - 32 MMOL/L) 31 01/02 0602 Anion Gap (5 - 16 MMOL/L) 7 01/02 0602 BUN (7 - 26 MG/DL) 35 H 01/02 0602 Creatinine (0.510 - 0.950 MG/DL) 1.910 H 01/02 602 Est GFR ( Amer) (ML/MIN) 33 01/02 602 Est GFR (Non-Af Amer) (ML/MIN) 27 01/02 602 BUN/Creatinine Ratio (15 - 24) 18 01/02 602 Glucose (70 - 100 MG/DL) 117 H 01/02 602 Total Calcium (8.5 - 10.1 MG/DL) 8.4 L 01/02 602 Phosphorus (2.5 - 4.9 MG/DL) 4.5 12/306 Magnesium (1.6 - 2.6 MG/DL) 2.0 12/306 Iron (50 - 170 UG/DL) 24 L 01/01 432 TIBC (221 - 481 UG/DL) 196 L 01/01 432 Iron Saturation (22 - 44 %) 12 L 01/01 432 Total Bilirubin (0.2 - 1.0 MG/DL) 0.5 12/31 435 AST (8 - 34 U/L) 12 12/31 435 ALT (13 - 61 IU/L) 8 L 12/31 435 Alkaline Phosphatase (45 - 117 U/L) 97 12/306 Serum Total Protein (6.0 - 8.5 GM/DL) 6.7 12/306 Albumin (3.2 - 5.0 GM/DL) 2.1 L 12/31 435 Globulin (2.2 - 4.2 GM/DL) 4.6 H 12/31 435 Albumin/Globulin Ratio (0.8 - 2.0) 0.4 L 12/31 435 Coagulation INR (0.9 - 1.1) 3.9 H 01/02 602 PT Normal Mean Secs (9.4 - 12.0 SECONDS) 43.9 H 01/02 602 Hematology WBC (4.5 - 11.0 K/CU MM) 7.8 01/02 602 RBC (3.90 - 5.30 M/CU MM) 2.83 L 01/02 602 Hgb (11.5 - 15.5 G/DL) 8.0 L 01/02 602 Hct (35.0 - 47.0 %) 26.7 L 01/02 602 MCV (80.0 - 99.0 fl) 94.3 01/02 0602 MCHC (32.0 - 36.0 GM/DL) 30.0 L 01/02 0602 RDW (11 - 14.5) 18.9 H 01/02 0602 Plt Count (150 - 450 K/CU MM) 190 01/02 0602 MPV (9.4 - 12.4) 9.2 L 01/02 0602 Immature Gran % (Auto) (Less than 2 %) 0.3 / 0521 Abs Immat Gran (auto) (Less than 2 K/CU MM) 0.00 / 0521 Seg Neutrophils % (45 - 75 %) 63.6 / 0521 Lymphocytes % (20 - 40 %) 14.4 L / 0521 Monocytes % (2 - 10 %) 15.2 H 01/01 0521 Eosinophils % (0 - 5 %) 6.0 H / 0521 Basophils % (0 - 2 %) 0.5 / 0521 Neutrophils # (2.0 - 8.3 K/CU MM) 4.10 / 0521 Lymphocytes # (0.9 - 4.4 K/CU MM) 0.90 / 0521 Monocytes # (0.1 - 1.1 K/CU MM) 1.00 / 0521 Eosinophils # (0 - 0.5 K/CU MM) 0.40 / 0521 Basophils # (0 - 0.2 K/CU MM) 0.00 / 0521 Nucleated RBCs (Less than 1 %) 0.0 01/02 0602 Toxicology Random Vancomycin (MCG/ML) 35.7 01/02 0908 Zinc (56 - 134 ug/dL) 71 12/30 0436 Recent Impressions (LAST) RADIOLOGY - PORTABLE CHEST 12/30 1223 Report Impression - Status: SIGNED Entered: 12/30/2017 1255 IMPRESSION: Cardiomegaly with pulmonary edema Impression By: SYDNEE MARTINEZ M.D. Portions of this section were transcribed by LINDA SAINZ on 01/02/18 at 2253 Objective (ROS) General Appearance Doing well, no complaints. Not much pain at all today. she had to change her wound vac early in the morning and now it is functioning well. Physical Exam Physical Examination Notes lungs clear CVS s1s2 distant but no murmur abd morbidly obese but soft ext 2+ edema she has a wound on the left foot hooked up to a wound vac with active drainage Portions of this section were transcribed by LINDA SAINZ on 01/04/18 at 1016 Assessment and Plan Conclusion 1. DEANGELO (acute kidney injury) improving on low dose lasix and tolerating it well 2. LEFT FOOT WOUND WITH CELLULITIS 3. Diabetes type 2, controlled 4. Chronic anemia 5. COPD (chronic obstructive pulmonary disease) 6. Sleep apnea 7. Chronic respiratory failure oxygen dependent Plan continue current abx and wound care will follow labs closely Portions of this section were transcribed by LINDA SAINZ on 01/04/18 at 1017 Disclaimer This dictation was created using voice recognition software. Phonetic and/or minor grammatical errors may exist. eSign Date and Time Jesus Smith MD Verified/Reviewed by 01/04/18 1114 VANC RANDOM Collected: 01/02/2018 Status: F Source: [facility] 9:08 AM [facility] REPOSITORY Order Comment: [place]: M : PRIOR TO EACH VANC DOSE, HOLD IF GREATER THAN 20 TYPE CODE TESTS RESULT OUT OF RANGE REFERENCE UNITS LAB L520.43957 MCG/ML Normal VANC RANDOM 35.7 Performed By: #### L520.15708 #### [facility] [address] [place] [address] CBC Collected: 01/02/2018 Status: F Source: [facility] 6:02 AM [facility] REPOSITORY Order Comment: [place]: M TYPE CODE TESTS RESULT OUT OF RANGE REFERENCE UNITS LAB L200.54507 4.5-11.0 K/CU MM Normal WBC 7.8 LAB L200.81265 3.90-5.30 M/CU MM Low RBC 2.83 LAB L200.19279 11.5-15.5 G/DL Low HGB 8.0 LAB L200.23987 35.0-47.0 % Low HCT 26.7 LAB L200.14874 80.0-99.0 fl Normal MCV 94.3 LAB L200.03258 32.0-36.0 GM/DL Low MCHC 30.0 LAB L200.47989 11-14.5 High RDW 18.9 LAB L200.43169 9.4-12.4 Low MPV 9.2 LAB L200.48006 150-450 K/CU MM Normal PLT 190 LAB L200.42816 Less than 1 % Normal NRBC 0.0 Performed By: #### L200.69934 #### [facility] [address] [place] [address] PT Collected: 01/02/2018 Status: F Source: [facility] 6:02 AM [facility] REPOSITORY Order Comment: [place]: M TYPE CODE TESTS RESULT OUT OF RANGE REFERENCE UNITS LAB L300.00522 0.9-1.1 High INR 3.9 Result Comment: Recommended PT INR therapeutic range for long term care administrator and prophylactic therapy is 2.0 - 3.0. For heart valve and shunt patients the range is 2.5 - 3.5. LAB L300.55674 9.4-12.0 SECONDS High 43.9 PTS Performed By: #### L300.26006 #### [facility] [address] [place] [address] BMP Collected: 01/02/2018 Status: F Source: [facility] 6:02 AM [facility] REPOSITORY Order Comment: [place]: M TYPE CODE TESTS RESULT OUT OF RANGE REFERENCE UNITS LAB L500.55694 136-145 MMOL/L Normal NA 140 LAB L500.07522 3.5-5.1 MMOL/L Normal K 4.3 LAB L500.34018 98-107 MMOL/L Normal CL 102 LAB L500.45090 21-32 MMOL/L Normal CO2 31 LAB L500.41432 5-16 MMOL/L Normal AGAP 7 LAB L500.11055 70-100 MG/DL High GLU 117 Result Comment: 70-100- Normal Fasting; 100-125 Impaired Fasting; greater than 126 on more than one result- Diabetes. ADA guidelines. Results may be falsely elevated after the administration of Sulfapyridine. Results may be falsely depressed after the administration of Sulfasalazine. LAB L500.18605 7-26 MG/DL High BUN 35 LAB L500.43964 0.510-0.950 MG/DL High CREAT 1.910 Result Comment: Patients receiving either N-Acetylcysteine (NAC) or Metamizole prior to venipuncture, may have falsely depressed results. LAB L500.99057 15-24 Normal BUN/CREA 18 LAB L500.19812 8.5-10.1 MG/DL Low CALCIUM TOTAL 8.4 Performed By: #### L500.15762, L500.52996 #### [facility] [address] [place] [address] GFR EST Collected: 01/02/2018 Status: F Source: [facility] 6:02 AM [facility] REPOSITORY Order Comment: [place]: M TYPE CODE TESTS RESULT OUT OF RANGE REFERENCE UNITS LAB L500.28601 ML/MIN Normal IF non-AFR 27 AMER LAB L500.49628 ML/MIN Normal IF 33 AMER Performed By: #### L500.67953, L500.76627 #### [facility] [address] [place] [address] VANC RANDOM Collected: 01/01/2018 Status: F Source: [facility] 8:45 AM [facility] REPOSITORY Order Comment: [place]: M : PRIOR TO EACH VANC DOSE, HOLD IF GREATER THAN 20 TYPE CODE TESTS RESULT OUT OF RANGE REFERENCE UNITS LAB L520.37984 MCG/ML Normal VANC RANDOM 38.6 Performed By: #### L520.37569 #### [facility] [address] [place] [address] PROG.NOTE Observed: 01/01/2018 Status: UNK Source: [facility] 8:33 AM [facility] Patient Name: VICKI HERNANDEZ [address] [facility] Date of : [address] [address] Unit Number: [id number] Progress Note-Physician Patient Status: REG RCR Attending Doctor: Amadeo Cali MD Service Date: 01/01/18 0833 Subjective S: (2 ROS minimum) Laboratory Tests 01/01 05 Chemistry Sodium (136 - 145 MMOL/L) 140 Potassium (3.5 - 5.1 MMOL/L) 4.7 Chloride (98 - 107 MMOL/L) 103 Carbon Dioxide (21 - 32 MMOL/L) 31 Anion Gap (5 - 16 MMOL/L) 7 BUN (7 - 26 MG/DL) 36 H Creatinine (0.510 - 0.950 MG/DL) 2.130 H Est GFR ( Amer) (ML/MIN) 29 Est GFR (Non-Af Amer) (ML/MIN) 24 BUN/Creatinine Ratio (15 - 24) 17 Glucose (70 - 100 MG/DL) 120 H Total Calcium (8.5 - 10.1 MG/DL) 9.1 Hematology WBC (4.5 - 11.0 K/CU MM) 6.5 RBC (3.90 - 5.30 M/CU MM) 2.87 L Hgb (11.5 - 15.5 G/DL) 8.1 L Hct (35.0 - 47.0 %) 27.5 L MCV (80.0 - 99.0 fl) 95.8 MCHC (32.0 - 36.0 GM/DL) 29.5 L RDW (11 - 14.5) 19.2 H Plt Count (150 - 450 K/CU MM) 200 MPV (9.4 - 12.4) 9.1 L Immature Gran % (Auto) (Less than 2 %) 0.3 Abs Immat Gran (auto) (Less than 2 K/CU MM) 0.00 Seg Neutrophils % (45 - 75 %) 63.6 Lymphocytes % (20 - 40 %) 14.4 L Monocytes % (2 - 10 %) 15.2 H Eosinophils % (0 - 5 %) 6.0 H Basophils % (0 - 2 %) 0.5 Neutrophils # (2.0 - 8.3 K/CU MM) 4.10 Lymphocytes # (0.9 - 4.4 K/CU MM) 0.90 Monocytes # (0.1 - 1.1 K/CU MM) 1.00 Eosinophils # (0 - 0.5 K/CU MM) 0.40 Basophils # (0 - 0.2 K/CU MM) 0.00 Nucleated RBCs (Less than 1 %) 0.0 Objective (ROS) Nursing Vitals bp 104/62; hr 102; resps 18; temp 97.6; o2 93% General Appearance She is in bed, no acute distress, states that she feels comfortable today, which is a change according to her. She feels that her swelling is improving. States that her breathing is much better today. Physical Exam Physical Examination Notes lungs clear CVS s1s2 distant but no murmur abd morbidly obese but soft ext 2+ edema she has a wound on the left foot hooked up to a wound vac with active drainage Portions of this section were transcribed by LINDA SAINZ on 01/03/18 at 1544 Assessment and Plan Conclusion 1. DEANGELO (acute kidney injury) improving had a dose of lasix yesterday 2. LEFT FOOT WOUND WITH CELLULITIS wound vac is in place Vanco dose was adjusted to q 24 hours based on her creatinine clearance 3. Diabetes type 2, controlled 4. Chronic anemia most recent Hgb was 8.1 5. COPD (chronic obstructive pulmonary disease) 6. Sleep apnea 7. Chronic respiratory failure oxygen dependent Plan will continue all current treatment will monitor her BUN/cr she is on warfarin for a fib will monitor her INR especially with the concurrent abx use, will monitor her HandH as well see orders for further details Portions of this section were transcribed by LINDA SAINZ on 01/03/18 at 1544 Disclaimer This dictation was created using voice recognition software. Phonetic and/or minor grammatical errors may exist. eSign Date and Time Jesus Smith MD Verified/Reviewed by 01/04/18 1114 CBC W/DIFF Collected: 01/01/2018 Status: F Source: [facility] 5:21 AM [facility] REPOSITORY Order Comment: [place]: M TYPE CODE TESTS RESULT OUT OF RANGE REFERENCE UNITS LAB L200.04362 4.5-11.0 K/CU MM WBC Normal 6.5 LAB L200.34256 3.90-5.30 M/CU MM Low RBC 2.87 LAB L200.89662 11.5-15.5 G/DL Low HGB 8.1 LAB L200.94290 35.0-47.0 % Low HCT 27.5 LAB L200.41695 80.0-99.0 fl MCV Normal 95.8 LAB L200.24630 32.0-36.0 GM/DL Low MCHC 29.5 LAB L200.10960 11-14.5 High RDW 19.2 LAB L200.00360 9.4-12.4 Low MPV 9.1 LAB L200.95740 150-450 K/CU MM PLT Normal 200 LAB L200.96192 45-75 % NEUTROPHILS Normal % 63.6 LAB L200.36817 Less than 2 % IMMATURE Normal GRAN % 0.3 LAB L200.22842 20-40 % Low LYMPH % 14.4 LAB L200.84556 2-10 % High MONOCYTE % 15.2 LAB L200.09055 0-5 % High EOSINOPHIL % 6.0 LAB L200.10879 0-2 % BASOPHIL % Normal 0.5 LAB L200.42653 2.0-8.3 K/CU MM NEUTROPHIL Normal ABS 4.10 LAB L200.35566 Less than 2 K/CU MM IMMATR GRAN Normal ABS 0.00 LAB L200.47674 0.9-4.4 K/CU MM LYMPH ABS Normal 0.90 LAB L200.56896 0.1-1.1 K/CU MM MONO ABS Normal 1.00 LAB L200.71364 0-0.5 K/CU MM EOS ABS Normal 0.40 LAB L200.56031 0-0.2 K/CU MM BASO ABS Normal 0.00 LAB L200.38489 Less than 1 % NRBC Normal 0.0 Performed By: #### L200.30683 #### [facility] [address] [address] BMP Collected: 01/01/2018 Status: F Source: [facility] 5:21 AM [facility] REPOSITORY Order Comment: [place]: TYPE CODE TESTS RESULT OUT OF RANGE REFERENCE UNITS LAB L500.39853 136-145 MMOL/L Normal NA 140 LAB L500.42982 3.5-5.1 MMOL/L Normal K 4.7 LAB L500.71758 98-107 MMOL/L Normal CL 103 LAB L500.54230 21-32 MMOL/L Normal CO2 31 LAB L500.37724 5-16 MMOL/L Normal AGAP 7 LAB L500.48079 70-100 MG/DL High GLU 120 Result Comment: 70-100- Normal Fasting; 100-125 Impaired Fasting; greater than 126 on more than one result- Diabetes. ADA guidelines. Results may be falsely elevated after the administration of Sulfapyridine. Results may be falsely depressed after the administration of Sulfasalazine. LAB L500.51822 7-26 MG/DL High BUN 36 LAB L500.85060 0.510-0.950 MG/DL High CREAT 2.130 Result Comment: Patients receiving either N-Acetylcysteine (NAC) or Metamizole prior to venipuncture, may have falsely depressed results. LAB L500.65684 15-24 Normal BUN/CREA 17 LAB L500.69802 8.5-10.1 MG/DL Normal CALCIUM TOTAL 9.1 Performed By: #### L500.70167, L500.81942 #### [facility] [place] [address] GFR EST Collected: 01/01/2018 Status: F Source: [facility] 5:21 AM [facility] REPOSITORY Order Comment: [place]: M TYPE CODE TESTS RESULT OUT OF RANGE REFERENCE UNITS LAB L500.58406 ML/MIN Normal IF non-AFR 24 AMER LAB L500.64959 ML/MIN Normal IF 29 AMER Performed By: #### L500.21553, L500.25624 #### [facility] [address] [place] [address] PROG.NOTE Observed: 12/31/2017 Status: UNK Source: [facility] 2:37 PM [facility] RE[facility]IT[facility] Patient Name: VICKI HERNANDEZ [address] [facility] Date of : [address] [address] Unit Number: [id number] Progress Note-Physician Patient Status: REG RCR Attending Doctor: Amadeo Cali MD Service Date: 12/31/17 1437 Subjective S: (2 ROS minimum) Patient is feeling good currently. Pain is under control. Morphine helped yesterday while getting dressing changed. No trouble with bowel movements. Objective (ROS) Nursing Vitals Temperature 97.8, pulse 80, respiration 18, blood pressure 116/22, 90% saturation. Physical Exam: Neurological / Psychiatric Alert, Orientation X3 HEENT No Trauma, EOMI, PERRL Neck No Bruit, No Mass, No JVD Respiratory Normal Breathing Effort, Clear Lungs Cardiovascular Heart RRR, No M / R / G, No Clubbing, No Cyanosis Gastrointestinal Normal Bowel Sounds, No Hepatosplenomegally, Non Tender, No Mass Musculoskeletal 2+ pitting pedal edema, thickened skin of the legs. Skin erythematous skin thigh region. Wound vac right leg and two small ones in the left leg. Site clean and dry. Diagnostic Data: Lab 24hr (CBC/BMP Ange) 12/31/17 0432: [Embedded Image Not Available] Anion Gap 7, Est GFR ( Amer) 24, Est GFR (Non-Af Amer) 20, BUN/Creatinine Ratio 13 L, Glucose 121 H, Total Calcium 8.1 L, Iron 24 L, TIBC 196 L, Iron Saturation 12 L Assessment and Plan Conclusion 1. ASSESSMENT AND PLAN Plan patient is a 57 years old, morbidly obese female who is admitted to [facility] for further wound care and management of underlying renal impairment. Acute kidney injury secondary to bacteraemia and Vancomycin toxicity: Obtain renal function panel in the morning. Avoid nephrotoxic agents. Bilateral lower extremity wounds: Continue with the wound care Type 2 diabetes: Sliding scale insulin coverage, Accu-Cheks before meals at bedtime 1800-calorie diabetic diet. Atrial fibrillation: Rate is under control. Patient is otherwise asymptomatic. Continue with the Coumadin and monitor INR. GI prophylaxis: PPI Disclaimer This dictation was created using voice recognition software. Phonetic and/or minor grammatical errors may exist. eSign Date and Time VirajAmadeo mckeon MD Verified/Reviewed by 01/04/18 0804 BMP Collected: 12/31/2017 Status: F Source: [facility] 4:32 AM [facility] REPOSITORY Order Comment: [place]: M TYPE CODE TESTS RESULT OUT OF RANGE REFERENCE UNITS LAB L500.79568 136-145 MMOL/L Normal NA 141 LAB L500.13653 3.5-5.1 MMOL/L Normal K 4.9 LAB L500.51917 98-107 MMOL/L Normal CL 105 LAB L500.73113 21-32 MMOL/L Normal CO2 29 LAB L500.97643 5-16 MMOL/L Normal AGAP 7 LAB L500.67537 70-100 MG/DL High GLU 121 Result Comment: 70-100- Normal Fasting; 100-125 Impaired Fasting; greater than 126 on more than one result- Diabetes. ADA guidelines. Results may be falsely elevated after the administration of Sulfapyridine. Results may be falsely depressed after the administration of Sulfasalazine. LAB L500.45611 7-26 MG/DL High BUN 33 LAB L500.39457 0.510-0.950 MG/DL High CREAT 2.500 Result Comment: Patients receiving either N-Acetylcysteine (NAC) or Metamizole prior to venipuncture, may have falsely depressed results. LAB L500.96675 15-24 Low BUN/CREA 13 LAB L500.73630 8.5-10.1 MG/DL Low CALCIUM TOTAL 8.1 Performed By: #### L500.56832, L500.27482, L500.84896 #### [facility] [address] [place] [address] GFR EST Collected: 12/31/2017 Status: F Source: [facility] 4:32 AM [facility] REPOSITORY Order Comment: [place]: M TYPE CODE TESTS RESULT OUT OF RANGE REFERENCE UNITS LAB L500.75063 ML/MIN Normal IF non-AFR 20 AMER LAB L500.86202 ML/MIN Normal IF 24 AMER Performed By: #### L500.74133, L500.72232, L500.65115 #### [facility] [address] [place] [address] IRON PANEL Collected: 12/31/2017 Status: F Source: [facility] 4:32 AM [facility] REPOSITORY Order Comment: [place]: M TYPE CODE TESTS RESULT OUT OF RANGE REFERENCE UNITS LAB L500.27016 50-170 UG/DL Low IRON 24 Result Comment: Patients treated with metal-binding drugs (e.g.deferoxamine) may have depressed iron values, as chelated iron may not properly react in the Siemens iron assay. LAB L500.65392 221-481 UG/DL Low TIBC 196 LAB L500.49265 22-44 % Low IRON SAT 12 Performed By: #### L500.49695, L500.38778, L500.74170 #### [facility] [address] [place] [address] HP.IMS.ADM Observed: 12/30/2017 Status: UNK Source: [facility] 5:08 PM [facility] Patient Name: VICKI HERNANDEZ [address] [facility] Date of : [address] [address] Unit Number: [id number] Admission-HandP Patient Status: REG RCR Attending Doctor: Amadeo Cali MD Service Date: 12/30/17 8791 History of Present Illness Source of Information Patient, Medical records Chief Complaint/Present Illness: Wound care History of Present Illness is a 57-year-old morbidly obese female with past medical history significant for type 2 diabetes, pulmonary hypertension, chronic atrial fibrillation who is on chronic anticoagulation therapy with Coumadin, obstructive sleep apnoea, essential hypertension, who got transferred from [facility] for further medical management regarding her wounds. Patient evidently had debridement done of the extensive wounds of bilateral lower extremities infected with MRSA. Patient ended up getting acute oliguric renal failure and lincomycin induced toxicity along with the diet induced bradycardia, which led her to be admitted to intensive care unit. Patient has significantly elevated creatinine of 7.48 and potassium was 5.5. Patient digitoxin level was 2.27 and elevated lincomycin of 75.6. Nephrology consultation was obtained and subsequently dialysis catheter was placed in the right internal jugular. Patient received dialysis on the fourth and fifth. Patient urine output gradually started getting better. Patient's creatinine has been gradually trending down. Patient had gram-negative rods. Based on the recent cultures which were thought to be colonisation. [facility]. Past Medical/Surgical Hx Past Medical History Type 2 diabetes. 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 Chronic atrial fibrillation. Morbid obesity. Chronic anaemia. Bradycardia with hypotension. Past Surgical History Debridement of leg wounds Recent wound vac placement. Family/Social History Substances Denies use of: Alcohol, Tobacco, Recreational Drugs. Advance Directives Advance Directives Full Code Allergies/Home Medications Inpatient Medications , albuterol sulphate. Flonase. Symbicort. Oxycodone. Tylenol. Ferrous sulphate. Colace twice daily. I statin powder. Lincomycin 1500 mg twice daily. Vitamin C twice daily. Lorazepam 0.5 mg every 8 hours as needed. Milk of magnesia. Effexor XR. Coumadin 10 mg daily Review of Systems ROS: Other . 10 point review of systems have been performed and is negative except for what mentioned in the HPI Physical Exam Vital Signs Temperature 96.8, pulse 84, respiration 18, blood pressure 118/22, 90% saturation. Physical Exam: Neurological / Psychiatric Alert, Orientation X3 HEENT No Trauma, EOMI, PERRL Neck No Bruit, No Mass, No JVD Respiratory Normal Breathing Effort, Clear Lungs Cardiovascular Heart RRR, No M / R / G, No Clubbing, No Cyanosis Gastrointestinal Normal Bowel Sounds, No Hepatosplenomegally, Non Tender, No Mass Musculoskeletal 2+ pitting pedal edema, thickened skin of the legs. Skin erythematous skin thigh region. Laboratory Tests 12/30 12/30 0436 0435 Chemistry Sodium (136 - 145 MMOL/L) 141 Potassium (3.5 - 5.1 MMOL/L) 4.8 Chloride (98 - 107 MMOL/L) 105 Carbon Dioxide (21 - 32 MMOL/L) 29 Anion Gap (5 - 16 MMOL/L) 7 BUN (7 - 26 MG/DL) 33 H Creatinine (0.510 - 0.950 MG/DL) 2.820 H Est GFR ( Amer) (ML/MIN) 21 Est GFR (Non-Af Amer) (ML/MIN) 17 BUN/Creatinine Ratio (15 - 24) 12 L Glucose (70 - 100 MG/DL) 130 H Total Calcium (8.5 - 10.1 MG/DL) 8.1 L Phosphorus (2.5 - 4.9 MG/DL) 4.5 Magnesium (1.6 - 2.6 MG/DL) 2.0 Total Bilirubin (0.2 - 1.0 MG/DL) 0.5 AST (8 - 34 U/L) 12 ALT (13 - 61 IU/L) 8 L Alkaline Phosphatase (45 - 117 U/L) 97 Serum Total Protein (6.0 - 8.5 GM/DL) 6.7 Albumin (3.2 - 5.0 GM/DL) 2.1 L Globulin (2.2 - 4.2 GM/DL) 4.6 H Albumin/Globulin Ratio (0.8 - 2.0) 0.4 L Coagulation INR (0.9 - 1.1) 1.3 H PT Normal Mean Secs (9.4 - 12.0 SECONDS) 13.6 H Hematology WBC (4.5 - 11.0 K/CU MM) 5.5 RBC (3.90 - 5.30 M/CU MM) 2.79 L Hgb (11.5 - 15.5 G/DL) 8.1 L Hct (35.0 - 47.0 %) 26.7 L MCV (80.0 - 99.0 fl) 95.7 MCHC (32.0 - 36.0 GM/DL) 30.3 L RDW (11 - 14.5) 19.6 H Plt Count (150 - 450 K/CU MM) 222 MPV (9.4 - 12.4) 9.4 Immature Gran % (Auto) (Less than 2 %) 0.2 Abs Immat Gran (auto) (Less than 2 K/CU MM) 0.00 Seg Neutrophils % (45 - 75 %) 59.0 Lymphocytes % (20 - 40 %) 16.6 L Monocytes % (2 - 10 %) 14.1 H Eosinophils % (0 - 5 %) 9.7 H Basophils % (0 - 2 %) 0.4 Neutrophils # (2.0 - 8.3 K/CU MM) 3.20 Lymphocytes # (0.9 - 4.4 K/CU MM) 0.90 Monocytes # (0.1 - 1.1 K/CU MM) 0.80 Eosinophils # (0 - 0.5 K/CU MM) 0.50 Basophils # (0 - 0.2 K/CU MM) 0.00 Nucleated RBCs (Less than 1 %) 0.0 Toxicology Zinc Pending Recent Impressions RADIOLOGY - PORTABLE CHEST 12/30 1223 Report Impression - Status: SIGNED Entered: 12/30/2017 1255 IMPRESSION: Cardiomegaly with pulmonary edema Impression By: SYDNEE MARTINEZ M.D. Conclusion / Plan Conclusion 1. ASSESSMENT AND PLAN Plan patient is a 57 years old, morbidly obese female who is admitted to [facility] for further wound care and management of underlying renal impairment. Acute kidney injury secondary to bacteraemia and lincomycin toxicity: Plan is to consult nephrology for dialysis management. Patient has received 2 sessions so far. Obtain renal function panel in the morning. Avoid nephrotoxic agents. Bilateral lower extremity wounds: Continue with the wound care Wound care consultation will be obtained. Patient received lincomycin, we will closely monitor the levels. Type 2 diabetes: Sliding scale insulin coverage, Accu-Cheks before meals at bedtime 1800-calorie diabetic diet. Atrial fibrillation: Mariah is under control. Patient is otherwise asymptomatic. Continue with the Coumadin and monitor INR. GI prophylaxis: PPI Disclaimer This dictation was created using voice recognition software. Phonetic and/or minor grammatical errors may exist. eSign Date and Time Amadeo Cali MD Verified/Reviewed by 12/30/17 1725 PROGRESS Observed: 12/30/2017 Status: COMPLETED Source: [place] 2:54 PM [facility] REPOSITORY HNO ID: [id number] Author: Rajesh Holman Service: (none) Author Type: Physician Type: Progress Notes Filed: 12/30/2017 4:35 PM Note Text: noted PROGRESS Observed: 12/30/2017 Status: COMPLETED Source: [place] 2:28 PM [facility] REPOSITORY HNO ID: [id number] Author: Melvina Almaraz (Rn) Service: (none) Author Type: Registered Nurse Type: Progress Notes Filed: 12/30/2017 2:33 PM Note Text: PRIMARY CARE COORDINATION FOLLOW-UP NOTE Provider Action/FYI Pt at [facility] to monitor Cardiac and Renal function. Has not required any further dialysis Patient identified by name and date of . YES Spoke to JOSE Mcnamara at [facility] and son Melody Summary: TC to sonMelody, states pt has not had anymore dialyses, states she had two at [facility] She was transferred to LTAC for them to closely monitor pt's heart and kidney function If pt is discharged to a SNF they will send her to [facility] if possible, family doesn't want patient to go back to [facility]. Concerns: Asked Elissa GARCIA, to please call PCC during discharge planning even if pt is going to be discharged to SNF, verbalized agreement. [employer] Manager plan for next outreach: No further follow up needed at this time Signature Melvina Almaraz RN December 30, 2017 DISCHARGE SUMMARY Observed: 12/30/2017 Status: F Source: [place] 6:54 AM [facility] REPOSITORY [facility] Medical Records Department [address] [place] [address] Discharge Summary 12/30/17 0622 MR#: [id number] Acct: [id number] Name: VICKI HERNANDEZ Rep #: [id number] : 1960 57 From: Mary Eddy DO PCP: Rajesh Holman MD Status: DIS IN Y Location: [facility] [id number] Discharge Date and Diagnosis Date of Admission: 12/24/17 Date of Discharge: 12/29/17 - Primary Discharge Diagnosis Acute kidney injury with oliguria requiring hemodialysis Severe bradycardia secondary to dig toxicity Hypotension Vancomycin toxicity Acute on chronic anemia Hypoglycemia Acute on chronic diastolic congestive heart failure - Secondary Discharge Diagnosis Chronic Problems (Last Updated 12/07/17 @ 09:05 by Thomas Carrasco MD) Iron deficiency anemia, unspecified (Chronic) Sleep apnea (Chronic) Poor compliance with CPAP treatment (Chronic) Biatrial enlargement (Chronic) Non-healing wound (Chronic) Chronic anticoagulation (Chronic) Diastolic CHF, chronic (Chronic) Pulmonary hypertension (Chronic) Morbid obesity (Chronic) Chronic atrial fibrillation (Chronic) Type 2 diabetes mellitus (Chronic) Hypertension (Chronic) Hospital Course and Treatment Imaging Results: Clinical Impression(s) from Imaging Studies Chest X-Ray 12/24/17 15:10 IMPRESSION: Right IJ central venous catheter as above with diffuse pulmonary edema Electronically Signed: Clinton Gallagher DO at 15:56 EDT Tel , Service support , Microbiology 12/27/17 14:30 Wound - Leg, Right Gram Stain - Final 12/27/17 14:30 Wound - Leg, Right Wound Culture - Preliminary Gram negative taylor - colonization, not infection Laboratory Results - last 24 hr POC Glucose 130 H 157 H 12/26/17 12:30 Urine Catheter - Dos Santos Urine Culture - Final Yeast, not Lorena albicans Consultations 12/24/17 15:13 Consult: Onc/Wound/diesel inspector Routine Comment: Reason for Consult:: multiple wound Operations: None Procedures: Central line placement - for HD, Dialysis Summary of Care Provided: [] Ms. Hernandez is a 57-year-old female with a past medical history of diabetes mellitus type 2, pulmonary hypertension, chronic atrial fibrillation, chronic anticoagulation with Warfarin, hypertension, obstructive sleep apnea with pulmonary hypertension (non-compliant with CPAP), super obesity and recent debridement of extensive wounds of BL LE's infected with MRSA ( had finished a 10 day course of antibiotics) who was admitted to the the ICU on 12/24/17 with acute oliguric renal failure, vancomycin toxicity and bradycardia secondary to digoxin toxicity. Creatinine at admission was 7.48 (up from 0.93 at recent admission in November for non-healing ulcers of the LE's with MRSA cellulitis) and the potassium was 5.5. Lactic acid was 1.4. UA showed greater than 100 RBCs per high-power field and 5-10 white blood cells with no bacteria. Digoxin level was 2.27 and the vancomycin was 75.6. Nephrology was consulted and a dialysis catheter was inserted in the RIJ. She was dialyzed on 12/24 and 12/25. Urine output improved and on the day prior to DC the urine OP was 1375. At the time of discharge on 12/29/2017 she had had 1000 cc out. Creatinine had been improving and on the date of discharge was 3.40. DC from the upper posterior thigh wound was greenish and had an odor and was cultured on 12/27/2017 by surgery. At the time she was afebrile with a normal white blood cell count and normal differential. The preliminary on the culture is a gram-negative taylor which may be Pseudomonas. She was treated topically with Dakin solution and on the date of discharge the drainage from the wound was minimal and there was increased granulation and no odor. The GM negative taylor growing in the wound is due to colonization and not systemic infection. Blood sugars were adequately controlled on diet alone while in the hospital and she was not discharged on insulin. AF remains rate controlled with bradycardia in the 40's while sleeping at the time of DC on no rate limiting agents. she was tearful at DC and is depressed. She has been on Citalopram with no improvement. The Citalopram was weaned down due to the ARF and discontinued at DC. She will start Effexor XR on 01/03/18. She will need wound vacs placed following transfer to [facility]. Lab on the date of discharge showed a white blood cell count of 5.7 with a normal differential. Hemoglobin was 7.9 and stable. Platelet count was 242,000. INR was decreased at 1.7 (coumadin was held at admission and Restarted on 12/27 at a decreased dose due to the RF). The dose was increased to 10 mg daily at the time of DC. Electrolytes were within normal limits and the BUN was 35 with a creatinine of 3.4. Phosphorus was 4.4. She requires more care than can be provided at a SNF due to obesity, immobility, deep wounds requiring wound vacs and multiple other medical comorbidities. She only tolerates BIPAP for short periods at night and is difficult to arouse during the day when sleeping. The pulse ox and the heart rate drop while sleeping and she requires 2-3 LPM of oxygen while sleeping....at night and with naps. She was transferred to the AC on 12/29/17. This note was generated with [employer] dictation software. It may contain incorrect words, spelling, and punctuation that were not noted in checking the note before signing. Home Medications: Medications to take at Discharge albuterol sulfate HFA 90 mcg/actuation aerosol inhaler 2 puff INHALATION Q4H PRN g 08/26/17 fluticasone 50 mcg/actuation nasal spray,suspension 2 spray INTRANASAL DAILY 08/26/17 Budesonide/Formoterol 160/4.5 [Symbicort 160/4.5 Mcg Inhaler (SP)] 2 inh INHALATION Q12H 12/06/17 Oxycodone [Oxyir] 5 - 10 mg PO Q6H PRN PRN #10 tab 12/14/17 Acetaminophen [Pain Relief Extra Strength] 500 mg PO TID 12/24/17 Docusate Sodium [Colace] 100 mg PO BID 12/24/17 Ferrous Sulfate 325 mg PO BIDCM 12/24/17 Nutritional Supplement [Josafat - ORANGE FLAVOR] 1 packet PO BIDCM 12/24/17 Nystatin Powder [Mycostatin Powder] 1 applic TOPICAL TID 12/24/17 Vancomycin 1,500 mg IV Q12H 12/24/17 Ascorbic Acid [Vitamin C] 500 mg PO BIDCM tablet 12/29/17 Lorazepam [Ativan] 0.5 mg PO Q8H PRN PRN tablet 12/29/17 Magnesium Hydroxide [Milk Of Magnesia] 30 ml PO DAILY PRN PRN udc 12/29/17 Sodium Hypochlorite [Dakins Solution 0.25% (1/2 Strength)] 1 applic TOPICAL BID bottle 12/29/17 Venlafaxine HCl [Effexor Xr] 75 mg PO DAILY #30 cap.er.24h 12/29/17 Warfarin Sodium 10 mg PO DAILY #1 tablet 12/29/17 Following Prescrptions Were Given to Patient: Venlafaxine HCl [Effexor Xr] 75 mg PO DAILY #30 cap.er.24h Warfarin Sodium 10 mg PO DAILY #1 tablet Primary Care Physician: Rajesh Holman MD [Primary Care Provider] - Please follow up with your Primary Care Physician in: following DC from LTAC Disposition: [facility] Acute Care Minutes spent on discharge:: 40 Patient Condition:: Stable Medical Necessity - Tobacco Use Smoking Status: Former smoker Meaningful Use Info Meaningful Use Diagnoses (Choose all that apply): None applicable Code Visit Inpatient E AND M: 10641 Disch Hosp 12/30/17 0654 <Electronically signed by Mary Eddy DO> Date M Ami Eddy DO Cosigner Signature (if applicable): Date CC: Tresa Eddy; Yu Romero DO; Alejo Martinez MD; Rajesh Holman MD Signed CMP Collected: 12/30/2017 Status: F Source: [facility] 4:36 AM [facility] REPOSITORY Order Comment: [place]: TYPE CODE TESTS RESULT OUT OF RANGE REFERENCE UNITS LAB L500.00426 136-145 MMOL/L Normal NA 141 LAB L500.89663 3.5-5.1 MMOL/L Normal K 4.8 LAB L500.90600 98-107 MMOL/L Normal CL 105 LAB L500.39994 21-32 MMOL/L Normal CO2 29 LAB L500.80829 5-16 MMOL/L Normal AGAP 7 LAB L500.33679 70-100 MG/DL High GLU 130 Result Comment: 70-100- Normal Fasting; 100-125 Impaired Fasting; greater than 126 on more than one result- Diabetes. ADA guidelines. Results may be falsely elevated after the administration of Sulfapyridine. Results may be falsely depressed after the administration of Sulfasalazine. LAB L500.72172 7-26 MG/DL High BUN 33 LAB L500.62803 0.510-0.950 MG/DL High CREAT 2.820 Result Comment: Patients receiving either N-Acetylcysteine (NAC) or Metamizole prior to venipuncture, may have falsely depressed results. LAB L500.86286 15-24 Low BUN/CREA 12 LAB L500.00036 6.0-8.5 GM/DL Normal TP 6.7 LAB L500.21244 3.2-5.0 GM/DL Low ALBUMIN 2.1 LAB L500.34179 2.2-4.2 GM/DL High GLOBULIN 4.6 LAB L500.82620 0.8-2.0 Low A/G RATIO 0.4 LAB L500.73437 8.5-10.1 MG/DL Low CALCIUM TOTAL 8.1 LAB L500.81728 0.2-1.0 MG/DL Normal BILI TOTAL 0.5 LAB L500.67761 8-34 U/L Normal SGOT (AST) 12 Result Comment: RESULTS MAY BE FALSELY DEPRESSED AFTER THE ADMINISTRATION OF SULFASALAZINE AND/OR SULFAPYRIDINE. LAB L500.33314 13-61 IU/L Low SGPT (ALT) 8 Result Comment: RESULTS MAY BE FALSELY DEPRESSED AFTER THE ADMINISTRATION OF SULFASALAZINE AND/OR SULFAPYRIDINE. LAB L500.39663 45-117 U/L Normal ALK PHOS 97 Performed By: #### L500.57675, L500.49729, L500.16988, L500.83058 #### [facility] [address] [place] [address] GFR EST Collected: 12/30/2017 Status: F Source: [facility] 4:36 AM [facility] REPOSITORY Order Comment: [place]: M TYPE CODE TESTS RESULT OUT OF RANGE REFERENCE UNITS LAB L500.72107 ML/MIN Normal IF non-AFR 17 AMER LAB L500.85787 ML/MIN Normal IF 21 AMER Performed By: #### L500.77892, L500.44864, L500.53684, L500.79954 #### [facility] [place] [address] PHOS Collected: 12/30/2017 Status: F Source: [facility] 4:36 AM [facility] REPOSITORY Order Comment: [place]: M TYPE CODE TESTS RESULT OUT OF RANGE REFERENCE UNITS LAB L500.74946 2.5-4.9 MG/DL Normal PHOS 4.5 Performed By: #### L500.40832, L500.21151, L500.05170, L500.98572 #### [facility] [address] [place] [address] MAGNESIUM Collected: 12/30/2017 Status: F Source: [facility] 4:36 AM [facility] REPOSITORY Order Comment: [place]: M TYPE CODE TESTS RESULT OUT OF RANGE REFERENCE UNITS LAB L500.36844 1.6-2.6 MG/DL Normal MAGNESIUM 2.0 Performed By: #### L500.78364, L500.12478, L500.83985, L500.15013 #### [facility] [address] [place] [address] ZINC Collected: 12/30/2017 Status: F Source: [facility] 4:36 AM [facility] REPOSITORY Order Comment: [place]: M TYPE CODE TESTS RESULT OUT OF RANGE REFERENCE UNITS LAB L550.87654 56-134 ug/dL Normal ZINC 71 Result Comment: Detection Limit = 5 Performed At: [facility] [address] [id number] Marycarmen Tavarez MD [id number] Performed By: #### L550.25180 #### [facility] [address] [id number] PT Collected: 12/30/2017 Status: F Source: [facility] 4:35 AM [facility] REPOSITORY Order Comment: [place]: M TYPE CODE TESTS RESULT OUT OF RANGE REFERENCE UNITS LAB L300.93482 0.9-1.1 High INR 1.3 Result Comment: Recommended PT INR therapeutic range for long term care administrator and prophylactic therapy is 2.0 - 3.0. For heart valve and shunt patients the range is 2.5 - 3.5. LAB L300.35622 9.4-12.0 SECONDS High 13.6 PTS Performed By: #### L300.92741 #### [facility] [address] [place] [address] CBC W/DIFF Collected: 12/30/2017 Status: F Source: [facility] 4:35 AM [facility] REPOSITORY Order Comment: [place]: M TYPE CODE TESTS RESULT OUT OF RANGE REFERENCE UNITS LAB L200.78738 4.5-11.0 K/CU MM WBC Normal 5.5 LAB L200.92967 3.90-5.30 M/CU MM Low RBC 2.79 LAB L200.62892 11.5-15.5 G/DL Low HGB 8.1 LAB L200.93199 35.0-47.0 % Low HCT 26.7 LAB L200.12701 80.0-99.0 fl MCV Normal 95.7 LAB L200.54499 32.0-36.0 GM/DL Low MCHC 30.3 LAB L200.58044 11-14.5 High RDW 19.6 LAB L200.01832 9.4-12.4 MPV Normal 9.4 LAB L200.60916 150-450 K/CU MM PLT Normal 222 LAB L200.99184 45-75 % NEUTROPHILS Normal % 59.0 LAB L200.72542 Less than 2 % IMMATURE Normal GRAN % 0.2 LAB L200.25940 20-40 % Low LYMPH % 16.6 LAB L200.35346 2-10 % High MONOCYTE % 14.1 LAB L200.13895 0-5 % High EOSINOPHIL % 9.7 LAB L200.16280 0-2 % BASOPHIL % Normal 0.4 LAB L200.98747 2.0-8.3 K/CU MM NEUTROPHIL Normal ABS 3.20 LAB L200.22565 Less than 2 K/CU MM IMMATR GRAN Normal ABS 0.00 LAB L200.69664 0.9-4.4 K/CU MM LYMPH ABS Normal 0.90 LAB L200.84499 0.1-1.1 K/CU MM MONO ABS Normal 0.80 LAB L200.75761 0-0.5 K/CU MM EOS ABS Normal 0.50 LAB L200.53014 0-0.2 K/CU MM BASO ABS Normal 0.00 LAB L200.74534 Less than 1 % NRBC Normal 0.0 Performed By: #### L200.26432 #### [facility] [address]# [phone] CNPTOUTREACH Observed: 12/30/2017 Status: COMPLETED Source: [place] 12:00 AM [facility] REPOSITORY Patient Outreach (FAMPWS) VICKI HERNANDEZ ([id number]) 1960 F Date Time Provider Department 12/30/17 MELVINA ALMARAZ (RN) FAMPWS During your visit today, we recorded the following information about you: Melvina Almaraz RN 12/30/2017 2:33 PM Signed PRIMARY CARE COORDINATION FOLLOW-UP NOTE Provider Action/FYI Pt at [facility] to monitor Cardiac and Renal function. Has not required any further dialysis Patient identified by name and date of . YES Spoke to JOSE Mcnamara at [facility] and rossy Lozano Summary: TC to sonMelody, states pt has not had anymore dialyses, states she had two at [facility] She was transferred to LTAC for them to closely monitor pt's heart and kidney function If pt is discharged to a SNF they will send her to [facility] if possible, family doesn't want patient to go back to [facility]. Concerns: Asked Elissa GARCIA, to please call PCC during discharge planning even if pt is going to be discharged to SNF, verbalized agreement. [employer] Manager plan for next outreach: No further follow up needed at this time Signature Melvina Almaraz RN December 30, 2017 Rajesh Holman MD 12/30/2017 4:35 PM Signed noted Melvina Almaraz RN 01/05/2018 11:16 AM Signed TC to [facility], Adriana states pt is till inpatient. Transferred to JOSE Mcnamara, left message to please call PCC back regarding any possible discharge planning. Melvina Almaraz RN January 05, 2018 11:15 AM Allergies As of Date: 12/30/2017 Noted Allergy Reaction CODEINE 11/19/2010 14 - Other: See Comments Comments: Itching, vomitting LATEX 11/19/2010 14 - Other: See Comments Comments: Itching,hives,dyspnea PHENOBARBITAL 11/19/2010 14 - Other: See Comments Comments: Nausea, itching TALWIN (PENTAZOCINE LACTATE) 11/19/2010 1 - Mental Status Change Comments: Hallucinations TREE NUT 02/07/2015 10 - Anaphylaxis Date Reviewed: 06/08/2017 Reviewed by: Karena Shaikh Cadd Drafter - Fully Assessed Reason for Visit: Bed Control [facility] Follow Up [0770] Prescriptions as of 12/30/2017 Sig: GABAPENTIN 400 MG CAPSULE Take 1 capsule by mouth four * WARFARIN 1 MG TABLET 10mg MWF and 11mg other days* WARFARIN 10 MG TABLET 10mg MWF and 11mg other days * METFORMIN 500 MG TABLET TAKE TWO TABLETS BY MOUTH TWI* DILTIAZEM SR 120 MG 24 HR CAP Take 1 capsule by mouth once * LISINOPRIL 10 MG TABLET Take 1 tablet by mouth once d* PEN NEEDLE, DIABETIC 29 GAUGE* Use one needle per dose. 5 p* INSULIN SYRINGE-NEEDLE U-100 * USE ONE SYRINGE FOR EACH INSU* INSULIN LISPRO (U-100) 100 UN* Inject 14 Units subcutaneousl* CITALOPRAM 40 MG TABLET Take 1 tablet by mouth once d* EXENATIDE 5 MCG/DOSE (250 MCG* INJECT 5 mcg SUBCUTANEOUSLY T* LANTUS SOLOSTAR U-100 INSULIN* Inject 46 units subcutaneousl* WARFARIN 2 MG TABLET 10mg and and 11 * IPRATROPIUM-ALBUTEROL 0.5 MG-* Inhale 3 mL as instructed kris* ALBUTEROL SULFATE HFA 90 MCG/* 2 puffs every 4-6 hrs PRN SOB* BUDESONIDE-FORMOTEROL HFA 160* Inhale 2 Puffs as instructed * COMPOUNDED PRESCRIPTION Oxygen for home @ 2L per BIPA* TORSEMIDE 20 MG TABLET TAKE ONE TABLET BY MOUTH TWIC* NADOLOL 40 MG TABLET TAKE THREE TABLETS BY MOUTH D* GLIPIZIDE 10 MG TABLET Take 1 tablet by mouth twice * TORSEMIDE 20 MG TABLET Take 1 tablet by mouth twice * ALBUTEROL SULFATE 1.25 MG/3 M* USE ONE vial in NEBULIZER KRIS* DIGOXIN 250 MCG TABLET Take 1 tablet by mouth once d* POLYETHYLENE GLYCOL 3350 17 G* Take 1 Packet by mouth as nee* CPAP ACETAMINOPHEN ER 650 MG TABLE* Take 650 mg by mouth every 8 * Problem List As Of Date 12/30/2017 Noted Resolved Diabetes (HCC) [E11.9] INVALID FOR* More... Atrial fibrillation (HCC) [I48.91] INVALID FOR* Priority: A More... Lymphedema [I89.0] INVALID FOR* Priority: B More... Heart failure, systolic and diastolic, acute on*INVALID FOR*12/31/2014 More... Obesity, morbid, BMI 50 or higher ([facility]) [E66.01]INVALID FOR* More... Hypertension [I10] INVALID FOR* More... HUNTER (obstructive sleep apnea) [G47.33] INVALID FOR* More... Pulmonary HTN (HCC) [I27.20] INVALID FOR* More... Atrial fibrillation with RVR ([facility]) [I48.91] INVALID FOR*09/23/2016 More... Heart failure, diastolic, acute ([facility]) [I50.31] INVALID FOR* More... Counseling and coordination of care [Z71.89] INVALID FOR*04/12/2015 More... Monoclonal gammopathy [D47.2] INVALID FOR* Empty sella turcica ([facility]) [E23.6] INVALID FOR* More... Uncontrolled type 2 diabetes mellitus without c*INVALID FOR*09/23/2016 Encounter Status:Closed by MELVINA ALMARAZ on 12/30/17 LTACH[facility] Observed: 12/29/2017 Status: UNK Source: [facility] 5:50 PM [facility] REPOSITORY DATE OF CONSULTATION: 12/30/2017 REFERRING PHYSICIAN: Amadeo Cali MD REASON FOR CONSULTATION: Azotemia, BUN 33 and creatinine 2.82. ASSESSMENT: 1. Acute kidney injury, possibly on chronic kidney insufficiency. The story goes back when she was admitted to [place] with acute renal failure thought to be secondary to several things, infection with extensive tissue damage, bradycardia led to digoxin toxicity and vancomycin toxicity in level beyond 140 according to the son. She required dialysis treatment. No she has recovering kidney failure. 2. Profound anemia. Hemoglobin 8.1, hematocrit 26.7. 3. Wounds in both legs and thigh. 4. Diabetes mellitus 2 with obesity. 5. Possible atrial fibrillation on Coumadin. 6. Depression. 7. Chronic obstructive pulmonary disease with sleep apnea, supposed to use CPAP. PLAN FROM MY POINT OF VIEW: 1. No hemodialysis now. 2. Follow renal function carefully. 3. Iron study tomorrow. 4. Chest x-ray for volume. 5. Vancomycin level carefully and then adjust diuretic if it is required. I was kindly asked to see this 57-year-old white lady who was transferred from [facility] to continue her care regarding extensive tissue damage in both legs and thigh requiring plastic surgery, wound care and Wound VAC. Apparently when she was in [place] she had acute renal failure thought to be secondary to multiple factors, infection, vancomycin toxicity and bradycardia. She required dialysis until yesterday when her catheter was taken out. We are following her now. PAST MEDICAL HISTORY: As stated above. ALLERGIES: Mainly to NUTS with anaphylactic shock according to the record. FAMILY HISTORY: Diabetes, hypertension. SOCIAL HISTORY: Does not smoke, does not drink. CURRENT MEDICATIONS: 1. Effexor. 2. Symbicort. [facility] REC #: [id number] [place] [address] ADMIT DATE: DISCHARGE DATE: ATTENDING PHY: Amadeo Cali MD 3. Insulin sliding scale. 4. Still on Vancomycin IV. 5. Coumadin. 6. Ativan. 7. Ascorbic acid. PHYSICAL EXAMINATION: General: Very pleasant lady under no distress although she is on oxygen. Vital Signs: She is afebrile. Blood pressure 124/70, heart rate 80. HEENT: Pupils reactive. Neck: No JVD. Full supraclavicular area after the catheter removal. Lungs: Decreased breath sounds. Heart: Regular rhythm. I could not hear any irregularity. Abdomen: Huge, possible sounds. Extremities: Huge with dressings. Neurologic: She is moving all extremities freely. Genitourinary: She has an indwelling Dos Santos catheter. LABORATORY DATA: Electrolytes: 141, 4.8, 105, 29, BUN 33, creatinine 2.87. Hemoglobin 8.1, hematocrit 26.7, WBC 5.1. SUMMARY: In summary, we are dealing with a lady with acute renal failure secondary to multiple factors. She is recovering. No dialysis now. The goal is to watch her volume carefully, avoid dialysis if we can, correct her anemia and follow with you on a daily basis. MD CONNIE Akers/[id number] SSI File#: [id number] CC: Amadeo Cali MD Verified/Reviewed by [facility] PATIENT NAME: VICKI HERNANDEZ [address] Ramesh MEDICAL REC #: [id number] [place] [address] ADMIT DATE: DISCHARGE DATE: ATTENDING PHY: Amadeo Cali MD PORTABLE CHEST Observed: 12/29/2017 Status: F Source: [facility] 5:50 PM [facility] PORTABLE CHEST Ordering Physician: Dylan Sutton MD 12/30/2017 11:21 AM PORTABLE CHEST: Clinical Statement: Shortness of breath Comparison: None FINDINGS: There is cardiomegaly with mild pulmonary edema. No consolidation, pleural fluid or pneumothorax. The osseous structures are unremarkable. IMPRESSION: Cardiomegaly with pulmonary edema ---- Electronic Signature on File ---- Signed By: Billy Martinez MD [email or web address] Dictated: 12/30/2017 12:48 PM Signed: 12/30/2017 12:49 PM Reported By: BILLY MARTINEZ M.D. Signed By: BILLY MARTINEZ M.D. Observed: 12/29/2017 Status: UNK Source: [facility] 5:50 PM [facility] DATE OF CONSULTATION: 12/24/2017 REFERRING PHYSICIAN: Dr. Cali. REASON FOR CONSULTATION: Antimicrobial therapy and management for severe lower extremity infection. HISTORY OF PRESENT ILLNESS: Vicki Hernandez is a morbidly obese 57-year-old female who was initially hospitalized at [facility] secondary to severe cellulitis of her bilateral lower extremities. [facility]. The patient states that she was at [facility] from December 24 through the and subsequently transferred to [facility] in [place]. The patient states that she had very dry skin on her lower legs. She apparently took a warm shower, took a scrub brush, and scrubbed very intensely on her legs. She says subsequently her legs became warm and erythematous and then blistered. She became weak and was initially taken to [facility], stabilized, and transferred to [facility] where she apparently did undergo some debridement. She currently has a wound VAC in place. Apparently, some cultures did grow Pseudomonas aeruginosa but the main pathogen, according to the physicians there, was felt to be MRSA. She was on vancomycin but subsequently developed vancomycin toxicity and acute renal injury requiring hemodialysis. She states she had several dialysis treatments but her not had any recently here in [facility]. Infectious disease consultation requested for review. PAST MEDICAL HISTORY: From discussion with the patient and review of her chart, she does have a history of diabetes, morbid obesity, pulmonary hypertension, acute kidney injury, diabetes, congestive heart failure, atrial fibrillation, hypertension. PAST SURGICAL HISTORY: She has had a cholecystectomy, hysterectomy with bilateral salpingo-oophorectomy, tonsillectomy, 2 sections. No antibiotic allergies are noted. FAMILY HISTORY: Reviewed. Mother has colon cancer, diabetes, hypertension. Father with COPD, heart disease, and diabetes. SOCIAL HISTORY: She is . Her ex- is . Reformed smoker. Lives with her daughter and mother. REVIEW OF SYSTEMS: As noted above. PHYSICAL EXAMINATION: General: Patient was seen in her hospital room. She is pleasant. No acute distress. Vital signs: Temperature 98.1, heart rate 93, blood pressure 135/72, respiratory [facility] PATIENT NAME: VICKI HERNANDEZ [address] [facility] [address] MEDICAL REC #: [id number] [place] [address] ADMIT DATE: DISCHARGE DATE: CONSULTATION REPORT ATTENDING PHY: Amadeo Cali MD rate 23. Skin: No acute rash. She has wound VACs, three of them, in place on her bilateral lower extremities. HEENT: She is normocephalic. Neck: Supple. Lungs: Diminished. Cardiac: Irregular. Abdomen: Morbidly obese but soft. Positive bowel sounds. LABORATORY: CBC: White count yesterday was 7.8, hemoglobin 8, hematocrit 26.7, and platelets 190,000. Creatinine 1.97. Random vancomycin level today was 33.7. I do not believe she has had any microbiology here on [facility]. IMPRESSION: This is a morbidly obese 57-year-old female with multiple medical problems including diabetes, pulmonary hypertension, atrial fibrillation, who was admitted with cellulitis/abscess of her bilateral lower extremities who apparently did grow Pseudomonas from a culture but on review of the chart it appears that was a colonizing celio and not the true pathogen. She is being treated for methicillin-resistant Staphylococcus aureus. RECOMMENDATIONS: I would continue dosing vancomycin based on renal function and level. I will review her wounds with her next dressing change to see whether she needs any coverage for Pseudomonas but it appears clinically she is doing well without and it likely is colonization as mentioned by the other physician. I will continue to follow Vicki Hernandez with you during her hospitalization. MD ROMIE Marmolejo/[id number] SSI File#: [id number] CC: Amadeo Cali MD Verified/Reviewed by 01/04/18 0634 [facility] PATIENT NAME: VICKI HERNANDEZ [address] [facility] [address] MEDICAL REC #: [id number] [place] [address] ADMIT DATE: DISCHARGE DATE: CONSULTATION REPORT ATTENDING PHY: Amadeo Cali MD PORTABLE CHEST Observed: 12/29/2017 Status: F Source: [facility] 5:50 PM [facility] PORTABLE CHEST Ordering Physician: Cameron Ortega MD 01/10/2018 7:00 AM PORTABLE AP CHEST JANUARY 10, 2018 6:13 AM Clinical Statement: Congestive heart failure Comparison: December 30, 2017 FINDINGS: The cardiomediastinal silhouette remains enlarged but stable. There is some pulmonary venous congestion with improved pulmonary edema pattern. No pleural effusion or pneumothorax. IMPRESSION: Improved congestive heart failure with some residual. ---- Electronic Signature on File ---- Signed By: Emanuel Winter MD [email or web address] Dictated: 01/10/2018 7:30 AM Signed: 01/10/2018 7:31 AM Reported By: EMANUEL WINTER M.D. Signed By: EMANUEL WINTER M.D. LTACHCR Observed: 12/29/2017 Status: UNK Source: [facility] 5:50 PM [facility] REPOSITORY DATE OF CONSULTATION: 12/30/2017 CHIEF COMPLAINT: 1. Open wound of the right leg. 2. Open wound of the right thigh. 3. Open wound of the left lower leg. 4. Morbid obesity. 5. Diabetes mellitus. 6. Renal failure. HISTORY OF PRESENT ILLNESS: This is a 57-year-old white female who is morbidly obese. She used to live by herself at home. 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 Over a month ago, the patient noticed some irritation around her lower legs. She tried to scrub all these areas and they became large blisters. These became infected. The patient was then sent over to [facility] where she stayed for sometime and because of the infection that was harboring in that area, she underwent surgical debridement by Dr. Martinez who did extensive debridement to both lower legs as well as into the right upper thigh area. These have been fairly deep and large, necrotic. Following surgery, the patient developed renal failure. The patient in the past had a history of atrial fibrillation and she was placed on long-term Coumadin therapy a long time ago. Since then, the patient had multiple debridements. Wound VAC therapy was place which was continued for some time. Because of her renal failure and multiple comorbidities including diabetes mellitus type 2 and respiratory failure and renal failure, she was transferred over to [facility] on December 29, 2017. She was continued with the same dressings. I was called in to see the patient the next day. At that time, she had the Wound VACs still on the legs and they were supposed to be changed the next day. The patient appears to be fairly alert and responding to commands. The Wound VACs were working fine at that time. The wounds were evaluated the next day and the description follows on examination. PAST HISTORY: The patient has a history of atrial fibrillation and hypertension. She was placed on long-term Coumadin therapy. The patient is morbidly obese. She is close to or over 400 pounds but able to move around fairly well and live alone at home. PHYSICAL EXAMINATION: General: On exam she is alert. Vital Signs: Stable. Blood pressure was 124/80, pulse 104, respirations 20, temperature 97. Skin: She has a large amount of folds under her breasts which were somewhat irritated. She also had some folds in the gluteal that were irrigated. There were several large wounds on the legs. These are as follows: 1. A large open wound of the leg which has involved skin and subcutaneous tissues, underlying fascia all the way up to the deep muscles. This occupies the lateral aspect of the right lower leg measuring 23 x 9 cm size with fairly good healthy [facility] PATIENT NAME: VICKI HERNANDEZ [address] MEDICAL REC #: [id number] [place] [address] ADMIT DATE: DISCHARGE DATE: ATTENDING PHY: Amadeo Cali MD tissues. Some of the areas were still necrotic but in the new few days the Wound VAC therapy should improve these areas. 2. Wound on the right high measuring about 4 x 15 cm in size was fairly deep, down for several centimeters, extending into the subcutaneous tissues. It still has some slough present and is also being treated with Wound VAC therapy. 3. A large wound is on her left lower leg on the posterior aspect. This wound measures about 23 x 10 cm in size and extends into the calf muscles and has some slough present and presently is being treated with Wound VAC therapy. The distal pulses are normal. The patient is also being followed by Dr. Sutton for renal failure and she had been placed on renal dialysis at that time. She has had no evidence of toxicity to vancomycin as well as Coumadin. The patient will be followed while she is in the hospital. PLAN OF TREATMENT: I will continue treating these areas with Wound VAC therapy until they show some evidence of healing and improvement and once that is accomplished and if her general condition permits, we can plan to go ahead and apply some skin grafts onto these areas. The patient has a past history of MRSA so I will be extremely careful as some of these grafts may not take. Presently there is no plan to do any skin grafting in the near future. Most of the wounds at this time can be treated with Wound VAC therapy. Petros Becerra MD [id number] SSI File#: [id number] Verified/Reviewed by [facility] PATIENT NAME: VICKI HERNANDEZ [address] [facility] [address] MEDICAL REC #: [id number] [place] [address] ADMIT DATE: DISCHARGE DATE: ATTENDING PHY: Amadeo Cali MD LTACHCR Observed: 12/29/2017 Status: UNK Source: [employer] [facility] 5:50 PM [facility] [place] REPOSITORY DATE OF CONSULTATION: Atrial fibrillation with rapid ventricular response. HISTORY OF PRESENT ILLNESS: Opal is a 57-year-old morbidly obese female with a past medical history significant for type 2 diabetes, pulmonary hypertension, chronic atrial fibrillation on chronic anticoagulation therapy of Coumadin, obstructive sleep apnea, essential hypertension. She was transferred from [facility] for further medical management regarding wounds that she had to her legs. She had debridement done due to extensive wounds on bilateral lower extremities infected with MRSA. She had acute renal failure and bradycardia which led her to be admitted to the intensive care unit. She had a significantly elevated creatinine of 7.48 and potassium of 5.5. Her digoxin level was 2.27. Patient received a dialysis catheter and was placed and had hemodialysis. Her urine did begin to improve and her creatinine stabilized. She was then transferred to [facility] due to her renal failure and her comorbid conditions. PAST MEDICAL HISTORY: Type 2 diabetes mellitus, bilateral nonhealing diabetic ulcers with infected MRSA, chronic atrial fibrillation. She is on Coumadin therapy. Morbid obesity, chronic anemia, bradycardia which is resolved with hypotension, diabetes mellitus, obstructive sleep apnea, chronic diastolic congestive heart failure. PAST SURGICAL HISTORY: For debridement of her leg wounds and a recent Wound VAC. ALLERGIES: Reviewed. MEDICATIONS: Reviewed. REVIEW OF SYSTEMS: A 10-point review of systems was performed, negative except what was mentioned in the HPI. PHYSICAL EXAMINATION: General: Patient is alert and oriented. Skin: Warm and dry. Neck: No bruit. No JVD. Respiratory: Lungs clear throughout. Cardiovascular: Irregular rate and rhythm. No murmur, rub or gallop. Gastrointestinal: Abdomen soft, nontender. Bowel sounds present. Extremities: There is 2+ pitting edema to her lower legs, very thickened skin to her lower legs. Vital Signs: Temperature 97, heart rate 124. She is in atrial fibrillation. Respirations 20, blood pressure 110/60. STUDIES: Her INR today was 2.3. She is on Coumadin. Electrolytes: Her sodium is 142, potassium is 3.5, BUN 28, creatinine 1.740, glucose 127. Her CBC: Her wjhite blood count 5.3, hemoglobin 8.0, hematocrit 26.1, platelets 245. Chest x-ray on the showed improved CHF with some residual. ASSESSMENT AND PLAN: 1. Chronic atrial fibrillation. Patient is currently on her Coumadin at [facility] PATIENT NAME: VICKI HERNANDEZ [address] MEDICAL REC #: [id number] [place] [id number] ADMIT DATE: DISCHARGE DATE: ATTENDING PHY: Amadeo Cali [facility]. She was taken off her digoxin, lisinopril, diltiazem and nadolol due to her renal insufficiency. Today, she was started on Cardizem IV drip at 5 due to her rapid heart rate. We are ordering that that be titrated to keep her heart rate less than 100. We are also going to start her on her oral Cardizem at this time. Continue with her Coumadin. 2. Acute kidney injury. Nephrology is managing that. 3. Bilateral lower leg wounds. 4. Diabetes mellitus type 2. Jo Warren CNP dictating for Chan Velasquez MD AMS/[id number] SSI File#: [id number] CC: Amadeo Cali MD Verified/Reviewed by [facility] PATIENT NAME: VICKI HERNANDEZ [facility] [address] [facility] REC #: [id number] [place] [address] ADMIT DATE: DISCHARGE DATE: ATTENDING PHY: Amadeo Cali MD PORTABLE CHEST Observed: 12/29/2017 Status: F Source: [facility] 5:50 PM [facility] AN ADDENDUM IS INCLUDED ON THIS REPORT PORTABLE CHEST Ordering Physician: Amadeo Cali MD 01/30/2018 3:47 PM SINGLE PORTABLE UPRIGHT CHEST 1609 HOURS Clinical Statement: PICC placement Comparison: Chest radiograph 01/10/2018 FINDINGS: The tip of the right-sided PICC line is at the expected location of the junction of the right axillary and subclavian vein. The heart is moderately enlarged. Pulmonary venous congestion is again shown. Left retrocardiac airspace opacity and small effusion is again seen. Impression: Tip of the right-sided PICC line is at the expected location of the junction of the axillary and subclavian vein on the right. CHF. Left retrocardiac airspace opacity and small effusion again shown. A report was faxed to the referring physician at the time of the study. ---- Electronic Signature on File ---- Signed By: Timothy Rojas MD [email or web address] Dictated: 01/30/2018 4:27 PM Signed: 01/30/2018 4:29 PM Reported By: TIMOTHY ROJAS M.D. Signed By: TIMOTHY ROJAS M.D. ADDENDUM: [id number] RAD/CHP The PICC line needs advanced to the level of the superior vena cava. This was discussed with the nurse taking care of the patient on the same date. ---- Electronic Signature on File ---- Signed By: Timothy Rojas MD [email or web address] Dictated: 01/30/2018 8:27 PM Signed: 01/30/2018 8:27 PM Reported By: TIMOTHY ROJAS M.D. Signed By: TIMOTHY ROJAS M.D. TRANSFER TO [facility] Observed: 12/29/2017 Status: F Source: [facility] 2:58 PM [facility] REPOSITORY [facility] Medical Records Department [address] [place] [address] Transfer to [facility] MR#: [id number] Acct: [id number] Name: VICKI HERNANDEZ Rep #: [id number] : 1960 57 From: Mary Eddy DO PCP: Rajesh Holman MD Status: ADM IN VICKI HERNANDEZ (Patient) (Health Ins. Claim No.) (Day of Discharge to Facility) Certification of patient admission REQUIRED AT TIME OF ADMISSION. I CERTIFY THAT POST-HOSPITAL ECF SERVICES ARE REQUIRED TO BE GIVEN ON AN IN-PATIENT BASIS BECAUSE OF THE ABOVE NAMED PATIENT'S NEED FOR [facility] CARE ON A CONTINUING BASIS FOR THE CONDITION(S) FOR WHICH HE/SHE WAS RECEIVING IN-PATIENT HOSPITAL SERVICES PRIOR TO HIS/HER TRANSFER TO THE ECF. 12/29/17 1458 <Electronically signed by Mary Eddy DO> Date Mary Eddy DO - Diet 12/24/17 15:12 Diet: Cardiac: Calorie-Controlled How many daily calories?: 1800 calorie - Routine Orders/Code Status Enema Type: Fleetz Enema Frequency: Daily PRN Suppository Type: Dulcolax 10mg Suppository Frequency: Daily PRN O2 Frequency: Continuous Keep PO Greater than or Equal to (%): 2 Routine Lab Work: - - BMP, HH, phos in 3 days PT/INR daily until the INR is consistently between 2.2-3. - Wound(s) R leg Wound Type: Pressure Injury L leg Wound Type: Pressure Injury right upper buttocks Wound Type: Pressure Injury right lateral ankle Wound Type: nonhealing wound s/p I AND D Dressing Change: Dakins moistened gauze right posterior upper thigh/gluteal crease Wound Type: nonhealing wound s/p I AND D Dressing Change: Dakins moistened gauze right posterior lower leg Wound Type: nonhealing wounds s/p I AND D Dressing Change: Dakins moistened gauze left posterior/lateral lower leg Wound Type: nonhealing wounds s/p I AND D Dressing Change: Dakins moistened gauze left medial ankle Wound Type: nonhealing wound s/p I AND D Dressing Change: Dakins moistened gauze left great toe Wound Type: Abrasion - Therapies Physical Therapy: Eval and Treat Occupational Therapy: Eval and Treat - Problem/Diagnosis (1) Acute kidney injury Status: Acute Current Visit: Yes (2) Digoxin toxicity Status: Acute Current Visit: Yes (3) Hyperkalemia Status: Acute Current Visit: Yes (4) Vancomycin toxicity Status: Acute Current Visit: Yes (5) Abscess of left lower extremity Status: Resolved Comment: nonhealing infected MRSA diabetic ulcer abscess left posterior leg Current Visit: No (6) Abscess of right lower extremity Status: Resolved Comment: nonhealing infected MRSA diabetic ulcer abscess right posterior leg nonhealing infected MRSA diabetic ulcer abscess right posterior thigh Current Visit: No (7) Cellulitis of leg, right Status: Resolved Current Visit: No (8) Chronic atrial fibrillation Status: Chronic Current Visit: No (9) Diabetes with ulcer of lower extremity Status: Resolved Comment: nonhealing infected MRSA diabetic ulcers bilateral posterior legs Current Visit: No (10) Hypertension Status: Chronic Current Visit: No (11) Methicillin resistant Staphylococcus aureus infection Status: Resolved Current Visit: No (12) Morbid obesity Status: Chronic Current Visit: No (13) Pulmonary hypertension Status: Chronic Current Visit: No (14) Type 2 diabetes mellitus Status: Chronic Current Visit: No (15) Acute on chronic congestive heart failure Status: Resolved Current Visit: No (16) Bradycardia Status: Resolved Comment: Due to digoxin toxicity Current Visit: Yes (17) Iron deficiency anemia, unspecified Status: Chronic Current Visit: Yes (18) Sleep apnea Status: Chronic Current Visit: Yes (19) Poor compliance with CPAP treatment Status: Chronic Current Visit: Yes (20) Biatrial enlargement Status: Chronic Current Visit: Yes (21) Non-healing wound Status: Chronic Current Visit: Yes (22) Chronic anticoagulation Status: Chronic Current Visit: Yes (23) Acute on chronic diastolic (congestive) heart failure Status: Ruled-out Current Visit: Yes (24) Diastolic CHF, chronic Status: Chronic Current Visit: Yes (25) Metabolic encephalopathy Status: Acute Current Visit: Yes - Allergies/Procedures Done in Hospital Allergies/Adverse Reactions: Allergies latex Allergy (Verified 03/26/15 11:04) Itching pentazocine lactate [From Talwin] Allergy (Verified 03/26/15 11:04) Itching phenobarbital Allergy (Verified 03/26/15 11:04) Itching tree nut Allergy (Verified 03/26/15 11:04) Anaphylaxis codeine Adverse Reaction (Verified 03/26/15 11:04) Upset Stomach - Type of Care/Length of Stay Estimated LOS: More Than 30 Days Type of Care Needed: LT[facility] Rehab Potential: Good Prognosis: Good - Additional Orders/Day of Discharge Additional Orders: Citalopram recently discontinued. She is to start on Effexor XR 75 mg daily on Wednesday 01/03. Please give pain medication 1 hour prior to dressing changes and wound vac changes. She has not required any insulin in the hospital....the Blood sugars have all been less than 200 on diet alone. She is in AF chronically......rate controlled on no meds at present and when she is sleeping she is still getting bradycardic in the 40's. The dig level on 12/28 was still 1.72. When the dig level decreases may need to restart the cardizem of the Nadolol for rate control. H AND P will serve as current which was dated: 12/24/17 Day of Discharge: 12/29/17 - Dietary and Speech Recommendations Dietitian Recommendations/Changes: Rec diet change to 2000 jumana Cardiac low sodium w/ fluid restriction as indicated. May benefit from 1 packet Josafat BID for wound healing. - Follow Up Care Primary Care Physician: Rajesh Holman MD [Primary Care Provider] - Please follow up with your Primary Care Physician in: following DC from LTAC 12/29/17 1458 <Electronically signed by Mary Eddy DO> Date M AldoZiggy Eddy CC: Charlie Powell MD; Yu Romero DO; Alejo Martinez MD; Rajesh Holman MD Signed BEDSIDE GLUCOSE Collected: 12/29/2017 Status: F Source: [place] 12:15 PM [facility] REPOSITORY TYPE CODE TESTS RESULT OUT OF REFERENCE UNITS RANGE LAB L501.080 70-110 mg/dL High BEDSIDE GLU 157 Result Comment: MANAGEMENT OF PATIENT CARE PER NURSING PROTOCOL Performed By: #### L501.080 #### [facility] Laboratory Point of Care [address] [place] [address] BEDSIDE GLUCOSE Collected: 12/29/2017 Status: F Source: [place] 6:42 AM [facility] REPOSITORY TYPE CODE TESTS RESULT OUT OF REFERENCE UNITS RANGE LAB L501.080 70-110 mg/dL High BEDSIDE GLU 130 Result Comment: MANAGEMENT OF PATIENT CARE PER NURSING PROTOCOL Performed By: #### L501.080 #### [facility] Point of Care [address] [place] [address] RENAL PROFILE Collected: 12/29/2017 Status: F Source: [place] 4:15 AM [facility] REPOSITORY TYPE CODE TESTS RESULT OUT OF RANGE REFERENCE UNITS LAB L501.0100 74-106 mg/dL High GLU 127 Result Comment: Fasting Glucose result greater than or equal to 126 mg/dL suggests DIABETES MELLITUS per A.D.A. criteria. Please note revised GLUCOSE reference range effective 2017. LAB L501.1000 7-18 mg/dL High BUN 35 LAB L501.1100 0.55-1.02 mg/dL High CREAT,SERUM 3.40 Result Comment: The validity of the calculated GFR AND GFRAA in patients over 70 years has not been determined. Clinical correlation is essential. LAB L501.1110 >60 mL/min Low EST GFR 15 Result Comment: Non- GFR Calc LAB L501.1115 >60 mL/min Low EST GFR - AA 18 Result Comment: GFR Calc LAB L501.1255 ml/min Normal Estimated CRCL 16.68 LAB L501.1300 10-20 RATIO Normal BUN/CRE 10.3 LAB L501.1800 3.2-5. g/dL Low 0 ALB 2.0 LAB L501.2200 8.5-10 mg/dL Low .1 CA 7.9 LAB L501.2300 2.5-4. mg/dL Normal 9 PHOS 4.4 LAB L501.5300 136-14 mmol/L Normal 5 NA 140 LAB L501.5600 3.5-5. mmol/L Normal 1 K 4.4 LAB L501.5900 98-107 mmol/L Normal CL 103 LAB L501.6100 21.0-3 mmol/L Normal 2.0 CO2 31.0 Performed By: #### L500.3600 #### [facility] [address] [place], [place], [address] CBC W/DIFF, AUTOMATED Collected: 12/29/2017 Status: F Source: [place] 4:15 AM [facility] REPOSITORY TYPE CODE TESTS RESULT OUT OF RANGE REFERENCE UNITS LAB L100.1000 4.4-11.0 K/mm3 Normal WBC 5.7 LAB L100.1200 4.2-5.4 M/mm3 Low RBC 2.68 LAB L100.1300 12.0-15.0 g/dl Low HGB 7.9 LAB L100.1400 37-47 % Low HCT 26.0 LAB L100.1500 81-99 fL Normal MCV 97.0 LAB L100.1600 27.0-32.0 pg Normal MCH 29.5 LAB L100.1700 32-36 g/gl Low MCHC 30.4 LAB L100.1810 11.6-14.6 % High RDW CV 19.3 LAB L100.1820 35.1-43.9 fl High RDW SD 65.3 LAB L100.1900 150-450 K/mm3 Normal PLT 242 LAB L100.2000 6.2-12.0 fl Normal MPV 9.1 LAB L100.2100 47-70 % Normal NEUT% 57.9 LAB L100.2200 19-41 % Normal LY% 20.3 LAB L100.2300 0-10 % High MONO% 13.8 LAB L100.2400 0-5 % High EO% 7.2 LAB L100.2500 0-1 % Normal BASO% 0.4 LAB L100.2550 0.0-0.9 % Normal IM GRAN % 0.400 Result Comment: IG% - Immature Granulocytes (promyelocytes, myelocytes and metamyelocytes) > 1% indicates that a LEFT SHIFT is Present. LAB L100.2620 2.0-7.7 X10 3/uL Absolute Neut Normal 3.3 LAB L100.2720 0.83-4.51 X10 3/ul Absolute Lymph Normal 1.15 LAB L100.4500 SMEAR COMMENT Normal SCAN LAB L100.7300 ANISO Normal 1+ LAB L100.7500 POLYCHROMASIA Normal 1+ LAB L100.7600 HYPOCHROMASIA Normal 1+ LAB L100.7700 MICROCYTES Normal 1+ Performed By: #### L100.0100 #### [facility] [address] [place], [address] PROTHROMBIN TIME W/INR Collected: 12/29/2017 Status: F Source: [place] 4:15 AM [facility] REPOSITORY TYPE CODE TESTS RESULT OUT OF RANGE REFERENCE UNITS LAB L300.4150 11.7-14.9 SECONDS High PROTIME 18.2 LAB L300.4200 Normal INR 1.5 Performed By: #### L300.3900 #### [facility] [address] [facility] [address] BEDSIDE GLUCOSE Collected: 12/28/2017 Status: F Source: [place] 9:18 PM [facility] REPOSITORY TYPE CODE TESTS RESULT OUT OF REFERENCE UNITS RANGE LAB L501.080 70-110 mg/dL High BEDSIDE GLU 179 Result Comment: MANAGEMENT OF PATIENT CARE PER NURSING PROTOCOL Performed By: #### L501.080 #### [facility] Point of Care [address] [place] [address] BEDSIDE GLUCOSE Collected: 12/28/2017 Status: F Source: [place] 4:53 PM [facility] REPOSITORY TYPE CODE TESTS RESULT OUT OF REFERENCE UNITS RANGE LAB L501.080 70-110 mg/dL High BEDSIDE GLU 160 Result Comment: MANAGEMENT OF PATIENT CARE PER NURSING PROTOCOL Performed By: #### L501.080 #### [facility] Point of Care [address] [place] [address] BEDSIDE GLUCOSE Collected: 12/28/2017 Status: F Source: [place] 11:24 AM [facility] REPOSITORY TYPE CODE TESTS RESULT OUT OF REFERENCE UNITS RANGE LAB L501.080 70-110 mg/dL High BEDSIDE GLU 173 Result Comment: MANAGEMENT OF PATIENT CARE PER NURSING PROTOCOL Performed By: #### L501.080 #### [facility] Point of Care [address] [place], [place] [id number] BEDSIDE GLUCOSE Collected: 12/28/2017 Status: F Source: [place] 6:50 AM [facility] REPOSITORY TYPE CODE TESTS RESULT OUT OF REFERENCE UNITS RANGE LAB L501.080 70-110 mg/dL High BEDSIDE GLU 115 Result Comment: MANAGEMENT OF PATIENT CARE PER NURSING PROTOCOL Performed By: #### L501.080 #### [facility] Point of Care [address] [place], [place] [address] CBC W/DIFF, AUTOMATED Collected: 12/28/2017 Status: F Source: [place] 5:40 AM [facility] REPOSITORY TYPE CODE TESTS RESULT OUT OF RANGE REFERENCE UNITS LAB L100.1000 4.4-11.0 K/mm3 Normal WBC 6.0 LAB L100.1200 4.2-5.4 M/mm3 Low RBC 2.71 LAB L100.1300 12.0-15.0 g/dl Low HGB 7.7 LAB L100.1400 37-47 % Low HCT 25.4 LAB L100.1500 81-99 fL Normal MCV 93.7 LAB L100.1600 27.0-32.0 pg Normal MCH 28.4 LAB L100.1700 32-36 g/gl Low MCHC 30.3 LAB L100.1810 11.6-14.6 % High RDW CV 19.6 LAB L100.1820 35.1-43.9 fl High RDW SD 65.0 LAB L100.1900 150-450 K/mm3 Normal PLT 224 LAB L100.2000 6.2-12.0 fl Normal MPV 8.7 LAB L100.2100 47-70 % Normal NEUT% 55.1 LAB L100.2200 19-41 % Normal LY% 22.7 LAB L100.2300 0-10 % High MONO% 14.4 LAB L100.2400 0-5 % High EO% 7.6 LAB L100.2500 0-1 % Normal BASO% 0.2 LAB L100.2550 0.0-0.9 % Normal IM GRAN % 0.000 Result Comment: IG% - Immature Granulocytes (promyelocytes, myelocytes and metamyelocytes) > 1% indicates that a LEFT SHIFT is Present. LAB L100.2620 2.0-7.7 X10 3/uL Normal Absolute Neut 3.3 LAB L100.2720 0.83-4.51 X10 3/ul Normal Absolute Lymph 1.35 Performed By: #### L100.0100 #### [facility] [address] [place], [address] PROTHROMBIN TIME W/INR Collected: 12/28/2017 Status: F Source: [place] 5:40 AM [facility] REPOSITORY TYPE CODE TESTS RESULT OUT OF RANGE REFERENCE UNITS LAB L300.4150 11.7-14.9 SECONDS High PROTIME 19.7 LAB L300.4200 Normal INR 1.7 Performed By: #### L300.3900 #### [facility] [address] [place], [address] DIGOXIN LEVEL Collected: 12/28/2017 Status: F Source: [place] 5:40 AM [facility] REPOSITORY TYPE CODE TESTS RESULT OUT OF RANGE REFERENCE UNITS LAB L501.7510 0.80-2.00 ng/mL Normal DIG 1.72 Performed By: #### L501.7510, L501.8850 #### [facility] [place], [address] VANCOMYCIN, RANDOM Collected: 12/28/2017 Status: F Source: [place] LEVEL 5:40 AM [facility] REPOSITORY TYPE CODE TESTS RESULT OUT OF REFERENCE UNITS RANGE LAB L501.8850 0.0-15.0 ug/mL High VANCO, RANDOM 37.3 Result Comment: VANCOMYCIN STANDARD DRUG THERAPY: CRITICAL VALUE IS > 15.0 mg/L VANCOMYCIN HIGH INTENSITY THERAPY: CRITICAL VALUE IS > 20.0 mg/L PLEASE CONTACT PHARMACY SERVICES (#[id number]) FOR INTERPRETATION OF RESULTS. THIS RESULT DOES NOT REPRESENT A PEAK OR TROUGH LEVEL FOR THIS DRUG. Performed By: #### L501.7510, L501.8850 #### [facility] [address] [place], [address] BEDSIDE GLUCOSE Collected: 12/27/2017 Status: F Source: [place] 10:31 PM [facility] REPOSITORY TYPE CODE TESTS RESULT OUT OF REFERENCE UNITS RANGE LAB L501.080 70-110 mg/dL High BEDSIDE GLU 147 Result Comment: MANAGEMENT OF PATIENT CARE PER NURSING PROTOCOL Performed By: #### L501.080 #### [facility] Point of Care [address] [place] [address] BEDSIDE GLUCOSE Collected: 12/27/2017 Status: F Source: [place] 4:23 PM [facility] REPOSITORY TYPE CODE TESTS RESULT OUT OF REFERENCE UNITS RANGE LAB L501.080 70-110 mg/dL High BEDSIDE GLU 158 Result Comment: MANAGEMENT OF PATIENT CARE PER NURSING PROTOCOL Performed By: #### L501.080 #### [facility] Point of Care [address] [place] [address] 12 LEAD ELECTROCARDIOGRAM Observed: 12/27/2017 Status: F Source: [place] 2:38 PM [facility] REPOSITORY [facility] Cardiovascular Services [address] [place] [address] 12 Lead EKG 12/24/17 1532 MR#: [id number] Acct: [id number] Name: VICKI HERNANDEZ Rep #: [id number] : 1960 57 From: Oral Suazo MD Attending Dr: Tresa Eddy Status: ADM IN Ordering Dr: Dami Kim MD Date: 12/24/17 Location: ICU Sex: F C Admitted: 12/24/17 Test Reason : ARRYTHMIA Blood Pressure : / mmHG Vent. Rate : 057 BPM Atrial Rate : 202 BPM P-R Int : 000 ms QRS Dur : 090 ms QT Int : 410 ms P-R-T Axes : 000 033 137 degrees QTc Int : 399 ms Atrial fibrillation Low voltage QRS T wave abnormality, consider lateral ischemia Abnormal ECG When compared with ECG of 08-DEC-2017 05:12, QT has shortened Confirmed by ORAL SUAZO MD ([id number]), assignment desk editor KERRY HERNANDEZ ([id number]) on 12/27/2017 2:38:05 PM Referred By: Silviano Vasquez Confirmed By:ORAL SUAZO MD 12/27/17 1438 Date Oral Suazo MD CC: Tresa Eddy; Silviano Vasquez DO; Dami Kim MD; Rajesh Holman MD Signed Observed: 12/27/2017 Status: F Source: [place] CULTURE, SURGERY DEEP 2:30 PM [facility] WOUND REPOSITORY List Antibiotics Last 48 Hours? rocephin. Gram Stain Gram Stain Rare White Blood Cells Rare Gram negative rods Wound Culture TWO MORPHOLOGICALLY DIFFERENT PSEUDOMONAS ORGANISM 1: Pseudomonas aeroginosa Amount Growth 2+ ORGANISM 2: Pseudomonas aeroginosa Amount Growth 2+ Pseudomonas aeroginosa: REACTION Aztreonam $$$ 15 R Pseudomonas aeroginosa: REACTION Amikacin $ 4 S Cefepime $ 32 R Ceftazidime *NF >=64 R Ciprofloxacin $ <=0.25 S Gentamicin $ 2 S Imipenem *NF 1 S Levofloxacin $ 0.5 S Meropenem $ <=0.25 S Tobramycin $ <=1 S (NF) indicates non-formulary drug at [facility]. Approval by Infectious Disease Specialist required before non-formulary drugs may be ordered and/or dispensed. Pseudomonas aeroginosa: REACTION Aztreonam $$$ 17 I Pseudomonas aeroginosa: REACTION Amikacin $ 16 S Cefepime $ 8 S Ceftazidime *NF 16 I Ciprofloxacin $ <=0.25 S Gentamicin $ 4 I Imipenem *NF 1 S Levofloxacin $ 0.5 S Meropenem $ 1 S Tobramycin $ <=1 S (NF) indicates non-formulary drug at [facility]. Approval by Infectious Disease Specialist required before non-formulary drugs may be ordered and/or dispensed. Cult, Anaerobic No anaerobic bacteria isolated. Performed By: #### M100.1550 #### [facility] [address] [place], [address] BEDSIDE GLUCOSE Collected: 12/27/2017 Status: F Source: [place] 11:51 AM [facility] REPOSITORY TYPE CODE TESTS RESULT OUT OF REFERENCE UNITS RANGE LAB L501.080 70-110 mg/dL High BEDSIDE GLU 140 Result Comment: MANAGEMENT OF PATIENT CARE PER NURSING PROTOCOL Performed By: #### L501.080 #### [facility] Point of Care [address] [place], [place] [id number] RENAL PROFILE Collected: 12/27/2017 Status: F Source: [place] 5:05 AM [facility] REPOSITORY TYPE CODE TESTS RESULT OUT OF RANGE REFERENCE UNITS LAB L501.0100 74-106 mg/dL High GLU 136 Result Comment: Fasting Glucose result greater than or equal to 126 mg/dL suggests DIABETES MELLITUS per A.D.A. criteria. Please note revised GLUCOSE reference range effective 2017. LAB L501.1000 7-18 mg/dL High BUN 29 LAB L501.1100 0.55-1.02 mg/dL High CREAT,SERUM 3.91 Result Comment: The validity of the calculated GFR AND GFRAA in patients over 70 years has not been determined. Clinical correlation is essential. LAB L501.1110 >60 mL/min Low EST GFR 13 Result Comment: Non- GFR Calc LAB L501.1115 >60 mL/min Low EST GFR - AA 15 Result Comment: GFR Calc LAB L501.1255 ml/min Normal Estimated CRCL 14.50 LAB L501.1300 10-20 RATIO Low BUN/CRE 7.4 LAB L501.1800 3.2-5. g/dL Low 0 ALB 1.9 LAB L501.2200 8.5-10 mg/dL Low .1 CA 7.5 LAB L501.2300 2.5-4. mg/dL High 9 PHOS 5.3 LAB L501.5300 136-14 mmol/L Normal 5 NA 136 LAB L501.5600 3.5-5. mmol/L Normal 1 K 4.0 LAB L501.5900 98-107 mmol/L Normal CL 100 LAB L501.6100 21.0-3 mmol/L Normal 2.0 CO2 30.0 Performed By: #### L500.3600 #### [facility] [address] [place], [place], [address] CBC W/DIFF, AUTOMATED Collected: 12/27/2017 Status: F Source: [place] 5:05 AM [facility] REPOSITORY TYPE CODE TESTS RESULT OUT OF RANGE REFERENCE UNITS LAB L100.1000 4.4-11.0 K/mm3 Normal WBC 6.1 LAB L100.1200 4.2-5.4 M/mm3 Low RBC 2.68 LAB L100.1300 12.0-15.0 g/dl Low HGB 7.8 LAB L100.1400 37-47 % Low HCT 25.8 LAB L100.1500 81-99 fL Normal MCV 96.3 LAB L100.1600 27.0-32.0 pg Normal MCH 29.1 LAB L100.1700 32-36 g/gl Low MCHC 30.2 LAB L100.1810 11.6-14.6 % High RDW CV 19.4 LAB L100.1820 35.1-43.9 fl High RDW SD 63.4 LAB L100.1900 150-450 K/mm3 Normal PLT 247 LAB L100.2000 6.2-12.0 fl Normal MPV 9.2 LAB L100.2100 47-70 % Normal NEUT% 68.0 LAB L100.2200 19-41 % Low LY% 16.8 LAB L100.2300 0-10 % High MONO% 10.1 LAB L100.2400 0-5 % Normal EO% 4.7 LAB L100.2500 0-1 % Normal BASO% 0.2 LAB L100.2550 0.0-0.9 % Normal IM GRAN % 0.200 Result Comment: IG% - Immature Granulocytes (promyelocytes, myelocytes and metamyelocytes) > 1% indicates that a LEFT SHIFT is Present. LAB L100.2620 2.0-7.7 X10 3/uL Normal Absolute Neut 4.2 LAB L100.2720 0.83-4.51 X10 3/ul Normal Absolute Lymph 1.03 Performed By: #### L100.0100 #### [facility] [address] [place], [place], [address] PROTHROMBIN TIME W/INR Collected: 12/27/2017 Status: F Source: [place] 5:05 AM [facility] REPOSITORY TYPE CODE TESTS RESULT OUT OF RANGE REFERENCE UNITS LAB L300.4150 11.7-14.9 SECONDS High PROTIME 23.6 LAB L300.4200 Normal INR 2.1 Performed By: #### L300.3900 #### [facility] [address] [place], [address] DIGOXIN LEVEL Collected: 12/27/2017 Status: F Source: [place] 5:05 AM [facility] REPOSITORY TYPE CODE TESTS RESULT OUT OF RANGE REFERENCE UNITS LAB L501.7510 0.80-2.00 ng/mL Normal DIG 1.76 Performed By: #### L501.7510, L501.8850 #### [facility] [address] [place], [address] VANCOMYCIN, RANDOM Collected: 12/27/2017 Status: F Source: [place] LEVEL 5:05 AM [facility] REPOSITORY TYPE CODE TESTS RESULT OUT OF REFERENCE UNITS RANGE LAB L501.8850 0.0-15.0 ug/mL High VANCO, RANDOM 48.5 Result Comment: VANCOMYCIN STANDARD DRUG THERAPY: CRITICAL VALUE IS > 15.0 mg/L VANCOMYCIN HIGH INTENSITY THERAPY: CRITICAL VALUE IS > 20.0 mg/L PLEASE CONTACT PHARMACY SERVICES (#[id number]) FOR INTERPRETATION OF RESULTS. THIS RESULT DOES NOT REPRESENT A PEAK OR TROUGH LEVEL FOR THIS DRUG. Performed By: #### L501.7510, L501.8850 #### [facility] [address] [place], [place], [address] BEDSIDE GLUCOSE Collected: 12/26/2017 Status: F Source: [place] 11:27 PM [facility] REPOSITORY TYPE CODE TESTS RESULT OUT OF REFERENCE UNITS RANGE LAB L501.080 70-110 mg/dL High BEDSIDE GLU 151 Result Comment: MANAGEMENT OF PATIENT CARE PER NURSING PROTOCOL Performed By: #### L501.080 #### [facility] Point of Care [address] [place], [place] [id number] BEDSIDE GLUCOSE Collected: 12/26/2017 Status: F Source: [place] 6:02 PM [facility] REPOSITORY TYPE CODE TESTS RESULT OUT OF REFERENCE UNITS RANGE LAB L501.080 70-110 mg/dL High BEDSIDE GLU 128 Result Comment: MANAGEMENT OF PATIENT CARE PER NURSING PROTOCOL Performed By: #### L501.080 #### [facility] Point of Care [address] [place], [place] [address] URINALYSIS, COMPLETE Collected: 12/26/2017 Status: F Source: [place] 12:30 PM [facility] REPOSITORY Order Comment: COLOR OF URINE MAY AFFECT DIPSTICK RESULTS. How was Urine Obtained? MANUFACTURE SPECIALIST TO SPECIFY TYPE CODE TESTS RESULT OUT OF RANGE REFERENCE UNITS LAB L400.3000 Yellow COLOR Normal Brown LAB L400.3050 Clear Normal CLARITY Turbid LAB L400.3200 Normal mg/dl Normal GLUCOSE, UR Normal LAB L400.3300 Negative mg/dL High BILIRUBIN URINE 1 Result Comment: COLOR OF URINE MAY AFFECT DIPSTICK RESULTS. LAB L400.3400 Negative mg/dl High KETONE UR 5 LAB L400.3465 1.002-1.030 Normal SP.GR. DIPSTX 1.020 LAB L400.3550 5.0 - 8.0 pH Normal UR 5.0 LAB L400.3600 Negative mg/dl High PROT DIPSTX 100 LAB L400.3700 Normal mg/dl Normal UROBILI Normal LAB L400.3750 Negative High NITRITE UR Positive LAB L400.3780 Negative /ul High OCCULT 250 BLOOD-UR LAB L400.3800 Negative /ul High LEUK ESTERASE 500 LAB L400.4050 0-5 /hpf Normal WBC 0 SEEN LAB L400.4100 0-5 /hpf Normal RBC-UA 25-50 SEEN LAB L400.4150 5-10 /hpf Normal SQUAM EPI 0 SEEN LAB L400.4300 None Seen /hpf Normal BACTERIA 0 SEEN LAB L400.4350 <or=2+ /hpf Normal MUCUS, URINE 0 SEEN LAB L400.4450 0-5 /lpf Normal FINE GRAN CAST 10-25 SEEN LAB L400.4900 Normal AMORPHOUS 3+ Performed By: #### L400.0001 #### [facility] [address] [place], [address] Observed: 12/26/2017 Status: F Source: [place] CULTURE, URINE 12:30 PM [facility] REPOSITORY Urine Culture Further studies to follow. ORGANISM 1: Yeast, not Lorena albicans [place] Count >100,000 Performed By: #### M100.0650 #### [facility] [address] [place], [address] BEDSIDE GLUCOSE Collected: 12/26/2017 Status: F Source: [place] 10:47 AM [facility] REPOSITORY TYPE CODE TESTS RESULT OUT OF RANGE REFERENCE UNITS LAB L501.080 70-110 mg/dL Normal BEDSIDE GLU 93 Result Comment: MANAGEMENT OF PATIENT CARE PER NURSING PROTOCOL Performed By: #### L501.080 #### [facility] Point of Care [address] [place] [address] VANCOMYCIN, RANDOM Collected: 12/26/2017 Status: F Source: [place] LEVEL 6:40 AM [facility] REPOSITORY TYPE CODE TESTS RESULT OUT OF REFERENCE UNITS RANGE LAB L501.8850 0.0-15.0 ug/mL High VANCO, RANDOM 53.9 Result Comment: VANCOMYCIN STANDARD DRUG THERAPY: CRITICAL VALUE IS > 15.0 mg/L VANCOMYCIN HIGH INTENSITY THERAPY: CRITICAL VALUE IS > 20.0 mg/L PLEASE CONTACT PHARMACY SERVICES (#[id number]) FOR INTERPRETATION OF RESULTS. THIS RESULT DOES NOT REPRESENT A PEAK OR TROUGH LEVEL FOR THIS DRUG. Performed By: #### L501.8850 #### [facility] [address] [place], [place], [address] RENAL PROFILE Collected: 12/26/2017 Status: F Source: [place] 4:50 AM [facility] REPOSITORY TYPE CODE TESTS RESULT OUT OF RANGE REFERENCE UNITS LAB L501.0100 74-106 mg/dL Normal GLU 95 Result Comment: Please note revised GLUCOSE reference range effective 2017. LAB L501.1000 7-18 mg/dL High BUN 25 LAB L501.1100 0.55-1.02 mg/dL High CREAT,SERUM 3.76 Result Comment: The validity of the calculated GFR AND GFRAA in patients over 70 years has not been determined. Clinical correlation is essential. LAB L501.1110 >60 mL/min Low EST GFR 13 Result Comment: Non- GFR Calc LAB L501.1115 >60 mL/min Low EST GFR - AA 16 Result Comment: GFR Calc LAB L501.1255 ml/min Normal Estimated CRCL 15.08 LAB L501.1300 10-20 RATIO Low BUN/CRE 6.6 LAB L501.1800 3.2-5. g/dL Low 0 ALB 2.2 LAB L501.2200 8.5-10 mg/dL Low .1 CA 7.5 LAB L501.2300 2.5-4. mg/dL Normal 9 PHOS 4.9 LAB L501.5300 136-14 mmol/L Normal 5 NA 136 LAB L501.5600 3.5-5. mmol/L Normal 1 K 4.0 LAB L501.5900 98-107 mmol/L Normal CL 98 LAB L501.6100 21.0-3 mmol/L Normal 2.0 CO2 29.0 Performed By: #### L500.3600 #### [facility] [address] [place], [place], [address] DIGOXIN LEVEL Collected: 12/26/2017 Status: F Source: [place] 4:50 AM [facility] REPOSITORY TYPE CODE TESTS RESULT OUT OF RANGE REFERENCE UNITS LAB L501.7510 0.80-2.00 ng/mL Normal DIG 1.91 Performed By: #### L501.7510, L501.8850 #### [facility] [address] [place], [place], [address] VANCOMYCIN, RANDOM Collected: 12/26/2017 Status: C Source: [place] LEVEL 4:50 AM [facility] REPOSITORY TYPE CODE TESTS RESULT OUT OF RANGE REFERENCE UNITS LAB L501.8850 0.0-15.0 ug/mL Test Normal VANCO, not performed RANDOM Result Comment: AMENDED REPORT 12/26/17 0751 VANCO, RANDOM previously reported as: Test not performed ug/mL Performed By: #### L501.7510, L501.8850 #### [facility] [address] [place], [place], [address] PROTHROMBIN TIME W/INR Collected: 12/26/2017 Status: F Source: [place] 4:50 AM [facility] REPOSITORY TYPE CODE TESTS RESULT OUT OF RANGE REFERENCE UNITS LAB L300.4150 11.7-14.9 SECONDS High PROTIME 23.4 LAB L300.4200 Normal INR 2.1 Performed By: #### L300.3900 #### [facility] [address] [place], [place], [address] BEDSIDE GLUCOSE Collected: 12/25/2017 Status: F Source: [place] 10:57 PM [facility] REPOSITORY TYPE CODE TESTS RESULT OUT OF RANGE REFERENCE UNITS LAB L501.080 70-110 mg/dL Normal BEDSIDE GLU 101 Result Comment: MANAGEMENT OF PATIENT CARE PER NURSING PROTOCOL Performed By: #### L501.080 #### [facility] Point of Care [address] [place] [address] BEDSIDE GLUCOSE Collected: 12/25/2017 Status: F Source: [place] 5:36 PM [facility] REPOSITORY TYPE CODE TESTS RESULT OUT OF RANGE REFERENCE UNITS LAB L501.080 70-110 mg/dL Normal BEDSIDE GLU 71 Result Comment: MANAGEMENT OF PATIENT CARE PER NURSING PROTOCOL Performed By: #### L501.080 #### [facility] Point of Care [address] [place] [address] DIGOXIN LEVEL Collected: 12/25/2017 Status: F Source: [place] 12:10 PM [facility] REPOSITORY TYPE CODE TESTS RESULT OUT OF RANGE REFERENCE UNITS LAB L501.7510 0.80-2.00 ng/mL High alert DIG 2.12 Result Comment: Critical Result(s) Called at: 13:54:43 12/25/2017 by: Connor Garcia to Marleny HERNANDEZ Digoxin concentrations greater than 2.00 ng/mL are potentially toxic. Performed By: #### L501.7510, L501.8850 #### [facility] [address] [place], [address] VANCOMYCIN, RANDOM Collected: 12/25/2017 Status: F Source: [place] LEVEL 12:10 PM [facility] REPOSITORY TYPE CODE TESTS RESULT OUT OF REFERENCE UNITS RANGE LAB L501.8850 0.0-15.0 ug/mL High VANCO, RANDOM 64.4 Result Comment: VANCOMYCIN STANDARD DRUG THERAPY: CRITICAL VALUE IS > 15.0 mg/L VANCOMYCIN HIGH INTENSITY THERAPY: CRITICAL VALUE IS > 20.0 mg/L PLEASE CONTACT PHARMACY SERVICES (#[id number]) FOR INTERPRETATION OF RESULTS. THIS RESULT DOES NOT REPRESENT A PEAK OR TROUGH LEVEL FOR THIS DRUG. Performed By: #### L501.7510, L501.8850 #### [facility] [address] [place], [place], [address] BEDSIDE GLUCOSE Collected: 12/25/2017 Status: F Source: [place] 9:58 AM [facility] REPOSITORY TYPE CODE TESTS RESULT OUT OF RANGE REFERENCE UNITS LAB L501.080 70-110 mg/dL Normal BEDSIDE GLU 80 Result Comment: Dr Cazares Followed Repeat Test MANAGEMENT OF PATIENT CARE PER NURSING PROTOCOL Performed By: #### L501.080 #### [facility] Point of Care [address] [place] [address] EMERGENCY REPORT Observed: 12/25/2017 Status: F Source: [place] GOD[place] 8:41 AM [facility] EMERGENCY ROOM REPORT NAME ACCOUNT SEX AGE ADMIT DISCHARGE PT MED. RECORD# NUMBER DATE DATE TYPE MARY [id number] F 57 12/24/17 12/24/17 3 VICKI Edouard [id number] ROOM: ER DATE OF : 1960 DICTATING PHYSICIAN: Timothy Delgado HISTORY OF PRESENT ILLNESS: The patient is a 57-year-old white female who has been complaining of shortness of breath and weakness since yesterday. She was sent here from the long-term which is [facility] because her BUN and creatinine has been increasing. The patient was treated at [facility] two weeks ago for a MRSA infection in her legs and she did have surgery at that time. She has a wound VAC on and was felt to be too weak and incapacitated to go home, so she has been at [facility] since her discharge from [facility]. The son has noticed at times she has been twitching and times she has been hallucinating. Her BUN and creatinine were elevated at the long-term yesterday. Her digoxin level was elevated yesterday. Today those values were even higher, so she was sent here for an evaluation. PAST MEDICAL HISTORY: Atrial fibrillation, congestive heart failure, diabetes mellitus type 1. She was just recently treated two weeks ago for MRSA infection in her legs requiring surgery and wound VAC. Dr. Martinez did her surgery over at [facility] and he is under the plastic surgery service. ALLERGIES: Pentazocine, codeine, phenobarbital, Latex and nuts. SOCIAL HISTORY: She is presently a resident of a long-term, [facility]. She denies the use of alcohol or tobacco products. 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 REVIEW OF SYSTEMS: The patient admits to shortness of breath and diffuse generalized weakness. She denies any chest pain, cough, sputum, wheezing, abdominal pain, nausea, vomiting, diarrhea, constipation, melena, hematochezia, headache, numbness. She does admit to unsteady gait and weakness. She denies any neck or back pain, joint pain. Further review of systems is negative. PHYSICAL EXAMINATION: The patient is alert and oriented x3. She does appear somewhat fatigued and weak, but she is pleasant and cooperative. She makes eye contact. She is very talkative and a good historian. HEENT: Head appears atraumatic. Pupils are equal and reactive to light. Red reflex is intact bilaterally. Extraocular muscles are intact. No conjunctival injection. No scleral icterus or lid edema. TMs are intact bilaterally. No erythema noted. Mucous membranes are dry. No pharyngeal erythema. Uvula is midline and elevates. NECK: Supple. Trachea is Page 1 of 3 [facility] Emergency Room Report midline. No JVD or lymphadenopathy. No posterior cervical tenderness. No nuchal rigidity. LUNGS: Lungs are somewhat diminished bibasilar but clear anteriorly. I note no crackles. No accessory muscle use. CV: Heart rate and rhythm is irregular and bradycardiac in the mid-30s per minute. No murmur noted. ABDOMEN: Soft, obese and nontender with normoactive bowel sounds x4 quadrants. No guarding or rigidity. No rebound. No palpable abdominal masses. No hepatosplenomegaly. EXTREMITIES: There is some swelling noted to both lower extremities. It is nonpitting. She does have a wound VAC on her right lower extremity and she has a dressing on the left lower extremity. No cyanosis. Peripheral pulses are intact. She does move all four extremities symmetrically, but they are symmetrically weak. I note no focal deficits. No significant erythema noted to the skin of the legs. NEURO: The patient is alert and oriented x4. No motor or sensory deficits noted other than diffuse symmetric weakness. She has normal speech pattern. Normal affect. Pleasant and cooperative. SKIN: Skin is somewhat pale, but warm and dry. No diaphoresis or rash. DIAGNOSTIC DATA: EKG showed atrial fibrillation with a rate of 35 beats per minute. At times she did go down to about 28 beats per minute and she would have some symptoms, but she has only done that once or twice. EMERGENCY DEPARTMENT COURSE AND TREATMENT: We have given her atropine 0.5 mg and presently her heart rate is improved to 44 beats per minute with a blood pressure of 90/66. I did order Digibind 6 vials IV. We are waiting on that. My understanding is that it will have to come from [place]. I did discuss the case with Dr. Purcell. He feels that the patient needs dialysis. I spoke with the hospitalist at [facility], Dr. Pisano, and he has accepted the patient for admission at [facility]. He was agreeable with the Digibind, although we may have to give it to her there, since I think she will be transferred by the time we get it available here. I did look at her blood work from this morning. I am still waiting on the blood work I ordered. Hemoglobin from the long-term done at 6:00 a.m. was 8.9. INR was 3.9, which is considerably lower than yesterday. Yesterday, it was 6.9. Her sodium was 139. Potassium is 5.4, chloride 100, CO2 is 27, BUN 62, creatinine 7.1. Yesterday, her BUN was 62, but her creatinine was only 6.6. Her GFR came back at 6. Anion gap was 17. Her digoxin level today is 3.03, so still high. Yesterday, it was 3.56, so it has improved somewhat since yesterday. They did a vancomycin trough this morning, which was 97.4. The normal range is 10 to 15. DIAGNOSIS: 1. Acute renal failure. 2. Atrial fibrillation with bradycardiac rhythm at 35 beats per minute. 3. Digoxin toxicity. PLAN/DISPOSITION: Presently, the patient will be transported to [facility] for admission under the hospitalist service and the appropriate consultations. She is scheduled to see Dr. May who is a clinic lead there. The clinic lead that she used to see there at [facility] has since moved onto another hospital. Page 2 of 3 [facility] Emergency Room Report Dictated By: Timothy Delgado DO 12/24/17 12:04 JOB #: [id number] Transcribed By: ariel 12/25/17 01:13 Electronically signed by: E-Sign: Dr. Timothy Delgado D.O. 12/25/17 08:40 Page 3 of 3 [facility] Emergency Room Report CONSULTATION Observed: 12/25/2017 Status: F Source: [place] 5:32 AM [facility] REPOSITORY [facility] Medical Records Department [address] [place] [address] Consultation 12/24/17 1610 MR#: [id number] Acct: [id number] Name: VICKI HERNANDEZ Rep #: [id number] : 1960 57 From: Charlie Powell MD PCP: Rajesh Holman MD Status: [facility] List (1) Acute kidney injury Status: Acute (2) Hyperkalemia Status: Acute (3) Digoxin toxicity Status: Acute Qualifiers: Encounter type: initial encounter Injury intent: accidental or unintentional Qualified Code(s): T46.0X1A - Poisoning by cardiac-stimulant glycosides and drugs of similar action, accidental (unintentional), initial encounter (4) Vancomycin toxicity Status: Acute (5) Abscess of right lower extremity Status: Chronic Comment: nonhealing infected MRSA diabetic ulcer abscess right posterior leg nonhealing infected MRSA diabetic ulcer abscess right posterior thigh (6) Abscess of left lower extremity Status: Chronic Comment: nonhealing infected MRSA diabetic ulcer abscess left posterior leg (7) Methicillin resistant Staphylococcus aureus infection Status: Chronic (8) Diabetes with ulcer of lower extremity Status: Chronic Comment: nonhealing infected MRSA diabetic ulcers bilateral posterior legs (9) Pulmonary hypertension Status: Chronic (10) Cellulitis of leg, right Status: Chronic (11) Acute on chronic congestive heart failure Status: Suspected (12) Morbid obesity Status: Chronic (13) Chronic atrial fibrillation Status: Chronic (14) Type 2 diabetes mellitus Status: Chronic (15) Hypertension Status: Chronic Reason for Consult Date of Consultation: 12/24/17 Reason for Consultation: Bradycardia History of Present Illness: The patient is a 57 year old F, with past medical history listed below, who presented to [facility] on 12/24/2017 secondary to bradycardia. Patient had recently been to [facility] in November with extensive lower extremity nonhealing ulcers that required debridement and wound VAC. Patient was discharged to a long-term on IV vancomycin. Per the patient's son, approximately 1 week ago patient started having periods of confusion, hallucinations and muscle twitching. Patient was from [facility] and labs were drawn yesterday showing an elevated vancomycin level and creatinine. No action was taken except for a repeat draw this morning. Patient was noted to have a digoxin level of 3, potassium of 5.5 and a creatinine of 7.2. Patient was transported to [facility] for evaluation At [facility], patient was bradycardic into the 20s with hypotension. Patient was given IV fluids and atropine with some improvement. Patient was then transferred to [facility] for possible dialysis. On presentation, patient was alert and oriented and answering appropriately. Patient states that she has a history of renal dysfunction in the past, but is never had hemodialysis. Patient did report significant dizziness with any change in movement. Patient was noted to be bradycardic on telemetry. Reviewed risks and benefits of hemodialysis and patient agreed for hemodialysis line placement. Review of records from outside facility show an elevated INR over 3. Patient had not been given Digibind or Kayexalate that could be noted. Dr. Romero was notified and hemodialysis catheter was placed without incident. Patient is currently pending hemodialysis Past Medical History Past Medical History (Chronic Problems): Chronic Problems (Last Updated 12/07/17 @ 09:05 by Thomas Carrasco MD) Abscess of right lower extremity (Chronic) nonhealing infected MRSA diabetic ulcer abscess right posterior leg nonhealing infected MRSA diabetic ulcer abscess right posterior thigh Abscess of left lower extremity (Chronic) nonhealing infected MRSA diabetic ulcer abscess left posterior leg Methicillin resistant Staphylococcus aureus infection (Chronic) Diabetes with ulcer of lower extremity (Chronic) nonhealing infected MRSA diabetic ulcers bilateral posterior legs Pulmonary hypertension (Chronic) Cellulitis of leg, right (Chronic) Morbid obesity (Chronic) Congestive heart failure (Chronic) Chronic atrial fibrillation (Chronic) Type 2 diabetes mellitus (Chronic) Hypertension (Chronic) Allergies latex Allergy (Verified 03/26/15 11:04) Itching pentazocine lactate [From [place]win] Allergy (Verified 03/26/15 11:04) Itching phenobarbital Allergy (Verified 03/26/15 11:04) Itching tree nut Allergy (Verified 03/26/15 11:04) Anaphylaxis codeine Adverse Reaction (Verified 03/26/15 11:04) Upset Stomach Home Medications: Ambulatory Orders Medication Instructions Recorded Citalopram [Celexa] 40 mg PO DAILY 03/20/15 Surgical History: cholecystectomy, hysterectomy - with BSO, tonsillectomy, - - 2 section. Psychiatric History: No pertinent psych hx CAR SCRUBBER History: No pertinent CAR SCRUBBER history Smoking Status: Former smoker - *Family History Maternal History Items: No pertinent history Paternal History Items: No pertinent history Review of Systems Comment: See HPI, otherwise negative 10 systems. Patient Problems: Active and Suspected Problems (Last Updated 12/07/17 @ 09:05 by Thomas Carrasco MD) Acute kidney injury (Acute) Hyperkalemia (Acute) Digoxin toxicity (Acute) Vancomycin toxicity (Acute) Objective: Chest x-ray was reviewed and showed proper placement of hemodialysis line. PICC line is in place. Some interstitial edema was appreciated. ER notes from outside facility were reviewed. - Physical Exam General: Alert, Oriented x3, Cooperative, No apparent distress, - - Morbidly obese. Speaking in full sentences. HEENT: Atraumatic, PERRLA, EOMI, Normocephalic, - - Slight scleral injection without icterus Oral: Moist Mucosa, No Gingival or Mucosal Lesions/ Ulcerations Neck: Supple, No JVD, No Nodes, Trachea Midline Lungs: No rhonchi, No wheeze, No rales, Diminished Cardiovascular: Normal S1, Normal S2, No murmurs, Bradycardic, No rub noted, No Gallop Abdomen: Bowel Sounds Present, Soft, Non Tender, Non-Distended, Obese Extremities: No clubbing, No cyanosis, Edema Skin: - - Large wound bilateral lower extremities. Do not appear infected. Venous stasis changes lower extremities. Musculoskeletal: No Tenderness to Palpation of Joints or Extremities, No Muscle Wasting Lymphatic: No Cervical, Supraclavicular, or Inguinal Adenopathy Neurological: Cranial nerves II-XII grossly intact, Neuro grossly intact, Sensory exam intact to light touch and pain Psych/Mental Status: Alert and oriented to time, place, person, mood and affect Vital Signs Pulse Ox 95 12/24/17 15:15 Oxygen Flow Rate (L/min) 4 Oxygen Delivery Method Nasal Cannula Clinical Impression(s) from Imaging Studies Chest X-Ray 12/24/17 15:10 IMPRESSION: Right IJ central venous catheter as above with diffuse pulmonary edema Electronically Signed: Clinton Gallagher DO at 15:56 EDT Tel , Service support , Multiple pages laboratory data from outside facility were reviewed. Assessment/Plan Active and Suspected Problems (Last Updated 12/07/17 @ 09:05 by Thomas Carrasco MD) Acute kidney injury (Acute) Hyperkalemia (Acute) Digoxin toxicity (Acute) Vancomycin toxicity (Acute) RECOMMENDATIONS: 1. Emergent hemodialysis 2. BiPAP nightly as needed 3. Hold metformin, Coumadin, vancomycin, Flagyl, digoxin and nadolol 4. Sliding scale insulin 5. Wean oxygen as tolerated IMPRESSIONS: 1. Sinus bradycardia Factorial etiology of sinus bradycardia including elevated potassium and digoxin. Patient has responded to atropine previously. Will dose atropine as necessary. Patient has had a hemodialysis line placed and will undergo emergent hemodialysis this evening. 2. Acute renal failure secondary to drug toxicity She does have a history of congestive heart failure and is on Lasix therapy at baseline. Patient did continue to make urine, but calcium is elevated. Patient is on Coumadin therapy and does have an elevated INR. However, line placement appears to have no complications at this time. Will not actively reverse INR. Nephrology has been consulted. 3. Acute on chronic diastolic congestive heart failure Patient has been treated with Lasix in the past. Patient does have increased alveolar infiltrates noted on chest x-ray. Patient currently on 4 L nasal cannula. Will attempt volume removal with hemodialysis. Hold nadolol for now given patient's bradycardia. Likely resume baseline medications in the next 24-48 hours. 4. Personal history of chronic atrial fibrillation/hypertension/heart failure/pulmonary hypertension Patient appears to be in atrial fibrillation at this time. Patient is anticoagulated. Bradycardia multifactorial. Hold on further anticoagulation at this time. Patient would benefit from nocturnal BiPAP therapy. 5. Diabetes type II Continue sliding scale insulin coverage and Accu-Cheks. 6. Super morbid obesity/depression/neuropathy Complicates care, management, recovery and prognosis. Resume home medications as indicated. Physical therapy to continue work with patient. TIME: 33 minutes critical care time spent addressing patient's acute renal failure, hypoxemia, review of all data and collaboration with care team Code Visit 9xxxx: [id number] Critical care first hour 12/25/17 0532 <Electronically signed by Charlie Powell MD> Date Charlie Powell MD Cosigner Signature (if applicable): Date CC: Charlie Powell MD; Yu Romero DO; Silviano Vasquez DO; Rajesh Holman MD Signed CBC-COMPLETE BLOOD CNT Collected: 12/25/2017 Status: F Source: [place] NO DIFF 4:15 AM [facility] REPOSITORY TYPE CODE TESTS RESULT OUT OF RANGE REFERENCE UNITS LAB L100.1000 4.4-11.0 K/mm3 Normal WBC 6.8 LAB L100.1200 4.2-5.4 M/mm3 Low RBC 2.98 LAB L100.1300 12.0-15.0 g/dl Low HGB 8.4 LAB L100.1400 37-47 % Low HCT 28.4 LAB L100.1500 81-99 fL Normal MCV 95.3 LAB L100.1600 27.0-32.0 pg Normal MCH 28.2 LAB L100.1700 32-36 g/gl Low MCHC 29.6 LAB L100.1810 11.6-14.6 % High RDW CV 19.6 LAB L100.1820 35.1-43.9 fl High RDW SD 66.2 LAB L100.1900 150-450 K/mm3 Normal PLT 294 LAB L100.2000 6.2-12.0 fl Normal MPV 8.6 Performed By: #### L100.0500, L100.4500 #### [facility] [address] [place], [address] DIFFERENTIAL COMMENT Collected: 12/25/2017 Status: F Source: [place] 4:15 AM [facility] REPOSITORY TYPE CODE TESTS RESULT OUT OF RANGE REFERENCE UNITS LAB L100.4500 Normal SMEAR COMMENT Result Comment: 2+ ANISO 1+ MACROCYTES RARE POLY Performed By: #### L100.0500, L100.4500 #### [facility] [address] [place], [place], [address] PROTHROMBIN TIME W/INR Collected: 12/25/2017 Status: F Source: [place] 4:15 AM [facility] REPOSITORY TYPE CODE TESTS RESULT OUT OF RANGE REFERENCE UNITS LAB L300.4150 11.7-14.9 SECONDS High PROTIME 29.5 LAB L300.4200 Normal INR 2.8 Performed By: #### L300.3900 #### [facility] [address] [place], [place], [address] RENAL PROFILE Collected: 12/25/2017 Status: F Source: [place] 4:15 AM [facility] REPOSITORY Order Comment: 'TROP' Serial specimen #1, #2, #3, or #4: 4 TYPE CODE TESTS RESULT OUT OF RANGE REFERENCE UNITS LAB L501.0100 74-106 mg/dL Normal GLU 78 Result Comment: Please note revised GLUCOSE reference range effective 2017. LAB L501.1000 7-18 mg/dL High BUN 40 LAB L501.1100 0.55-1.02 mg/dL High CREAT,SERUM 5.25 Result Comment: The validity of the calculated GFR AND GFRAA in patients over 70 years has not been determined. Clinical correlation is essential. LAB L501.1110 >60 mL/min Low EST GFR 9 Result Comment: Non- GFR Calc LAB L501.1115 >60 mL/min Low EST GFR - AA 11 Result Comment: GFR Calc LAB L501.1255 ml/min Normal Estimated CRCL 10.80 LAB L501.1300 10-20 RATIO Low BUN/CRE 7.6 LAB L501.1800 3.2-5. g/dL Low 0 ALB 2.3 LAB L501.2200 8.5-10 mg/dL Low .1 CA 7.2 LAB L501.2300 2.5-4. mg/dL High 9 PHOS 5.4 LAB L501.5300 136-14 mmol/L Normal 5 NA 137 LAB L501.5600 3.5-5. mmol/L Normal 1 K 4.5 LAB L501.5900 98-107 mmol/L Normal CL 99 LAB L501.6100 21.0-3 mmol/L Normal 2.0 CO2 28.0 Performed By: #### L500.3600, L501.4010 #### [facility] [address] [place], [address] TROPONIN-I Collected: 12/25/2017 Status: F Source: [place] 4:15 AM [facility] REPOSITORY Order Comment: 'TROP' Serial specimen #1, #2, #3, or #4: 4 TYPE CODE TESTS RESULT OUT OF RANGE REFERENCE UNITS LAB L501.4010 <0.06 ng/mL Normal < 0.02 TROPONIN-I Result Comment: TROPONIN-I EXPECTED VALUES <0.05 NEGATIVE 0.06 - 0.[address] > OR = 0.[address] Performed By: #### L500.3600, L501.4010 #### [facility] [address] [place], [address] BEDSIDE GLUCOSE Collected: 12/24/2017 Status: F Source: [place] 11:32 PM [facility] REPOSITORY TYPE CODE TESTS RESULT OUT OF RANGE REFERENCE UNITS LAB L501.080 70-110 mg/dL Normal BEDSIDE GLU 74 Result Comment: MANAGEMENT OF PATIENT CARE PER NURSING PROTOCOL Performed By: #### L501.080 #### [facility] Point of Care [address] [place] [address] TROPONIN-I Collected: 12/24/2017 Status: F Source: [place] 11:30 PM [facility] REPOSITORY Order Comment: 'TROP' Serial specimen #1, #2, #3, or #4: 3 TYPE CODE TESTS RESULT OUT OF RANGE REFERENCE UNITS LAB L501.4010 <0.06 ng/mL Normal < 0.02 TROPONIN-I Result Comment: TROPONIN-I EXPECTED VALUES <0.05 NEGATIVE 0.06 - 0.[address] > OR = 0.[address] Performed By: #### L501.4010 #### [facility] [address] [place], [address] BEDSIDE GLUCOSE Collected: 12/24/2017 Status: F Source: [place] 11:01 PM [facility] REPOSITORY TYPE CODE TESTS RESULT OUT OF REFERENCE UNITS RANGE LAB L501.080 70-110 mg/dL Low BEDSIDE GLU 65 Result Comment: MANAGEMENT OF PATIENT CARE PER NURSING PROTOCOL Performed By: #### L501.080 #### [facility] Point of Care [address] [place], [place] [id number] HEPATITIS B SURFACE Collected: 12/24/2017 Status: F Source: [place] AG 8:12 PM [facility] REPOSITORY Order Comment: Order Date: 12/24/17 Comments: dialysis order TYPE CODE TESTS RESULT OUT OF RANGE REFERENCE UNITS LAB L3100.0400 Negative Normal HB Negative SURF AG Result Comment: Performed at: - [facility] [id number] [employer]: Sly Warren PhD, Phone: [phone] Performed By: #### L3100.0390 #### [facility] (refer to report for specific site) refer to report for address and phone number TROPONIN-I Collected: 12/24/2017 Status: F Source: [place] 7:58 PM [facility] REPOSITORY Order Comment: 'TROP' Serial specimen #1, #2, #3, or #4: 2 TYPE CODE TESTS RESULT OUT OF RANGE REFERENCE UNITS LAB L501.4010 <0.06 ng/mL Normal < 0.02 TROPONIN-I Result Comment: TROPONIN-I EXPECTED VALUES <0.05 NEGATIVE 0.06 - 0.[address] > OR = 0.[address] Performed By: #### L501.4010 #### [facility] [place], [place], [id number] DIGOXIN LEVEL Collected: 12/24/2017 Status: F Source: [place] 7:58 PM [facility] REPOSITORY Order Comment: Comments: After completion of hemodialysis TYPE CODE TESTS RESULT OUT OF RANGE REFERENCE UNITS LAB L501.7510 0.80-2.00 ng/mL High alert DIG 2.27 Result Comment: Critical Result(s) Called at: 21:46:11 12/24/2017 by: Sahara major TO [facility] Digoxin concentrations greater than 2.00 ng/mL are potentially toxic. Performed By: #### L501.7510, L501.8850 #### [facility] [address] [place], [address] VANCOMYCIN, RANDOM Collected: 12/24/2017 Status: F Source: [place] LEVEL 7:58 PM [facility] REPOSITORY Order Comment: Comments: After completion of hemodialysis TYPE CODE TESTS RESULT OUT OF REFERENCE UNITS RANGE LAB L501.8850 0.0-15.0 ug/mL High VANCO, RANDOM 75.6 Result Comment: Critical Result(s) Called at: 21:49:14 12/24/2017 by: Sahara major TO [facility] VANCOMYCIN STANDARD DRUG THERAPY: CRITICAL VALUE IS > 15.0 mg/L VANCOMYCIN HIGH INTENSITY THERAPY: CRITICAL VALUE IS > 20.0 mg/L PLEASE CONTACT PHARMACY SERVICES (#[id number]) FOR INTERPRETATION OF RESULTS. THIS RESULT DOES NOT REPRESENT A PEAK OR TROUGH LEVEL FOR THIS DRUG. Performed By: #### L501.7510, L501.8850 #### [facility] [address] [place], [address] URINE SODIUM Collected: 12/24/2017 Status: F Source: [place] 6:30 PM [facility] REPOSITORY TYPE CODE TESTS RESULT OUT OF RANGE REFERENCE UNITS LAB L501.5500 Not Establ. mmol/L Normal UR NA 52 Performed By: #### L501.5500 #### [facility] [address] [place], [address] CREATININE, URINE Collected: 12/24/2017 Status: F Source: [place] ([place]AND[place]) 6:30 PM [facility] REPOSITORY TYPE CODE TESTS RESULT OUT OF RANGE REFERENCE UNITS LAB L501.1200 NO RANGE EST. mg/dL Normal UR CREAT 121.00 Performed By: #### L501.1200 #### [facility] [address] [place], [address] URINALYSIS, COMPLETE Collected: 12/24/2017 Status: F Source: [place] 6:00 PM [facility] REPOSITORY Order Comment: COLOR OF URINE MAY AFFECT DIPSTICK RESULTS. How was Urine Obtained? MANUFACTURE SPECIALIST TO SPECIFY TYPE CODE TESTS RESULT OUT OF RANGE REFERENCE UNITS LAB L400.3000 Yellow COLOR Normal Brown LAB L400.3050 Clear Normal CLARITY Turbid LAB L400.3200 Normal mg/dl Normal GLUCOSE, UR Normal LAB L400.3300 Negative mg/dL Normal BILIRUBIN URINE Negative LAB L400.3400 Negative mg/dl Normal KETONE UR Negative LAB L400.3465 1.002-1.030 Normal SP.GR. DIPSTX 1.020 LAB L400.3550 5.0 - 8.0 pH UR Normal 5.0 LAB L400.3600 Negative mg/dl High PROT DIPSTX 100 LAB L400.3700 Normal mg/dl Normal UROBILI Normal LAB L400.3750 Negative High NITRITE UR Positive LAB L400.3780 Negative /ul High OCCULT BLOOD-UR 250 LAB L400.3800 Negative /ul High LEUK ESTERASE 500 LAB L400.4050 0-5 /hpf WBC Normal 5-10 SEEN LAB L400.4100 0-5 /hpf > Normal RBC-UA 100 SEEN LAB L400.4150 5-10 /hpf SQUAM Normal EPI 0-5 SEEN LAB L400.4300 None Seen /hpf 0 Normal BACTERIA SEEN LAB L400.4350 <or=2+ /hpf 0 Normal MUCUS, URINE SEEN LAB L400.5200 None Seen /hpf 1+ Normal YEAST-URINE Performed By: #### L400.0001 #### [facility] [address] [facility] [place], [address] CONSULTATION Observed: 12/24/2017 Status: F Source: [place] 5:58 PM [facility] REPOSITORY [facility] Medical Records Department [address] [place] [address] Consultation 12/24/17 1725 MR#: [id number] Acct: [id number] Name: VICKI HERNANDEZ Rep #: [id number] : 1960 57 From: Yu Romero DO PCP: Rajesh Holman MD Status: ADM IN Y Location: ICU ICU05-1 Consultation - Renal 12/24/17 PCP/ Referring MD: Requesting physician: Dami Kim Primary care physician: Rajesh Holman Reason for Consultation:: DEANGELO, hyperkalemia, digoxin toxicity, vancomycin toxicity - History of Present Illness History of Present Illness: The patient is a 57 year old morbidly obese female transferred from [facility] for acute renal failure, digoxin toxicity, severe bradycardia with altered mental status. She presented with confusion, hallucinations since the weekend with muscle twitching noticed by the family. She was transferred to the [facility] intensive care unit today for further management and possible dialysis. She was recently hospitalized for multiple decubitus ulcers on her lower extremities posteriorly underwent debridement with wound vac placement. She was subsequently sent to [facility] with IV antibiotic therapy and continued wound care. Her creatinine was elevated at 7.2 with potassium 5.5. Digoxin level was elevated at 3. Vancomycin level was elevated. Her heart rate was in the 30s upon presentation to the emergency room. Blood pressure was low in the 90sin the emergency room and at F according to the patient and the patient family. Currently she is alert and oriented 3. Family states her mental status is much improved upon admit to [facility]. Creatinine during last hospitalization was normal at 0.93 on December 12. Discharge medications included metformin, lisinopril, torsemide. She had decreased appetite and oral intake along with loose bowel movements. She has a history of chronic atrial fibrillation on anticoagulation along with digoxin, Cardizem, nadolol. Her antibiotics included IV vancomycin 1.5 g every 12 hours and ceftriaxone. Her urine output is poor with dark jen urine in her [place] bag. Patient has pulmonary hypertension with morbid obesity and sleep apnea. She admits to not using her CPAP at night. She is on oxygen at home with a concentrator. His medical history is significant for diabetes mellitus type 2, hypertension, chronic atrial fibrillation, chronic leg edema. She has been able to ambulate with a walker at home up until 2 weeks ago when she presented with her leg wounds. - Allergies Allergies: Allergies latex Allergy (Verified 03/26/15 11:04) Itching pentazocine lactate [From Talwin] Allergy (Verified 03/26/15 11:04) Itching phenobarbital Allergy (Verified 03/26/15 11:04) Itching tree nut Allergy (Verified 03/26/15 11:04) Anaphylaxis codeine Adverse Reaction (Verified 03/26/15 11:04) Upset Stomach - Current Medications Current Medications: Current Medications Acetaminophen (Tylenol) 650 mg PO Q6H PRN PRN PRN Reason: Mild Pain (1-3)/Temp > 100.7 F Sodium Chloride () 1,000 mls @ 100 mls/hr IV .Q10H [facility] Last Admin: 12/24/17 16:34 Dose: 100 mls/hr Magnesium Hydroxide (Milk Of Magnesia) 30 ml PO DAILY PRN PRN PRN Reason: Constipation Nutritional Formula (Lactose Free) (Glucerna Shake) 120 ml PO 4X/DAY [facility] Last Admin: 12/24/17 17:18 Dose: Not Given Oxycodone HCl (Oxyir) 5 - 10 mg PO Q4H PRN PRN PRN Reason: MOD-SEVERE PAIN (4-1010) Psyllium Hydrophilic Mucilloid (Metamucil) 1 packet PO DAILY PRN PRN PRN Reason: CONSTIPATION Senna/Docusate Sodium (Senokot-S, Airam-Colace) 2 tablet PO BID PRN PRN PRN Reason: constipation - Past Medical History Past Medical History (Chronic Problems): Chronic Problems (Last Updated 12/07/17 @ 09:05 by Thomas Carrasco MD) Abscess of right lower extremity (Chronic) nonhealing infected MRSA diabetic ulcer abscess right posterior leg nonhealing infected MRSA diabetic ulcer abscess right posterior thigh Abscess of left lower extremity (Chronic) nonhealing infected MRSA diabetic ulcer abscess left posterior leg 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 - Social History Marital Status: - Ex- Smoking Status: Former smoker - Family History Maternal Family History: Family History (Last Updated 08/26/17 @ 10:41 by Erin Carter) Mother Colon cancer Diabetes Hypertension CHF (congestive heart failure) Father COPD (chronic obstructive pulmonary disease) Heart disease Diabetes Brother Heart disease Stomach cancer Sister Ovarian cancer History Items: No pertinent history Paternal Family History: Family History (Last Updated 08/26/17 @ 10:41 by Erin Carter) Mother Colon cancer Diabetes Hypertension CHF (congestive heart failure) Father COPD (chronic obstructive pulmonary disease) Heart disease Diabetes Brother Heart disease Stomach cancer Sister Ovarian cancer History Items: No pertinent history Review of Systems Constitutional: Reports: Anorexia, Weakness, Fatigue. Denies: Chills, Fever Eyes: Denies: Blurred vision HEENT: Denies: Head Aches Cardiovascular: Reports: Chest Pain - With bradycardia arrhythmia, Edema - chronic lymphedema, Light Headedness, Palpitations, - - Near syncope, - - Slow heartbeat. Denies: Syncope Respiratory: Reports: Shortness of Breath - With slow heartbeat. Denies: Cough Gastrointestinal: Reports: Diarrhea - Loose stools, - - Anorexia. Denies: Abdominal Pain, Constipation, Nausea, Vomiting Genitourinary: Denies: Dysuria, Hematuria Musculoskeletal: Reports: Leg Pain, - - Decubitus ulcers, - - Muscle weakness uses a walker for ambulation assistance lately has not been able to walk due to debilitation Skin: Reports: Wounds - Posterior leg and calf, dorsum of left foot Neurological: Reports: Balance problems, Confusion - Improved since transfer to [facility], Tremor - Twitching of upper extremities, - - Generalized weakness. Denies: Seizures Psychiatric: Reports: Anxiety, Depression Hematologic/ Lymphatic: Reports: Anemia. Denies: Hx of blood clot Patient Problems: Active and Suspected Problems (Last Updated 12/07/17 @ 09:05 by Thomas Carrasco MD) Acute kidney injury (Acute) Hyperkalemia (Acute) Digoxin toxicity (Acute) Vancomycin toxicity (Acute) - Physical Exam General: Alert, Oriented x3, Cooperative, - - Super morbidly obese, debilitated Oral: Dry Mucosa Neck: Supple, No JVD Lungs: Diminished Abdomen: Bowel Sounds Present, Soft, Non Tender, Non-Distended, Obese - Super Extremities: Edema - To sacrum Skin: Ulcer/ Wound - Posterior thigh and legs the wound VAC applied Musculoskeletal: No Muscle Wasting, Arthritic Changes Lymphatic: No Cervical, Supraclavicular, or Inguinal Adenopathy Neurological: Cranial nerves II-XII grossly intact, - - Tremors upper extremity Psych/Mental Status: Normal Affect, Appropriate, Alert and oriented to time, place, person, mood and affect Vital Signs Temp Pulse Resp BP Pulse Ox 97.4 F L 56 L 19 H 123/58 H 99 12/24/17 14:28 12/24/17 17:00 12/24/17 17:00 12/24/17 17:00 12/24/17 17:00 Oxygen Flow Rate (L/min) 3 Oxygen Delivery Method Nasal Cannula Weight: 188.7 kg Body Mass Index (BMI) 67.1 Laboratory Tests Past 24 Hrs WBC 6.0 RBC 2.97 L Hgb 8.6 L Hct 29.0 L MCV 97.6 MCH 29.0 MCHC 29.7 L WBC RBC Hgb Hct MCV MCH MCHC RDW RDW Differential Clinical Impression(s) from Imaging Studies Chest X-Ray 12/24/17 15:10 IMPRESSION: Right IJ central venous catheter as above with diffuse pulmonary edema Electronically Signed: Clinton Gallagher DO at 15:56 EDT Tel , Service support , Assessment/Plan Active and Suspected Problems (Last Updated 12/07/17 @ 09:05 by Thomas Carrasco MD) Acute kidney injury (Acute) Hyperkalemia (Acute) Digoxin toxicity (Acute) Vancomycin toxicity (Acute) 1. Acute kidney injury multifactorial from medications, bradycardia cardia, hypotension. Check spot urine sodium and creatinine. Recommend hemodialysis for oliguric renal failure as well as for hyperkalemia, digoxin toxicity consequently with severe bradycardia, and history of altered mental status which apparently is improved according to the family. Creatinine 7.48 on admission. Baseline creatinine 0.93 from 12/12. Hold lisinopril and diuretic therapy. Discussed with family at bedside regarding hemodialysis and the potential risks involved including infection, bleeding, hypotension with subsequent CT or stroke event. They agreed to proceed with hemodialysis with temporary dialysis catheter placed by intensive care team. 2. Severe bradycardia arrhythmia from digoxin toxicity. Digibind relatively contraindicated due to renal failure. Will remove digoxin with dialysis tonight 3. Metabolic encephalopathy improved likely due to renal failure and gabapentin. 4. Hyperkalemia correct with hemodialysis 5. Vancomycin toxicity will correct with dialysis 6. MRSA leg wound. Continue wound VAC 7. Diabetes mellitus type 2. Discontinue metformin 8. Hypertension history with low blood pressure currently. Support with IV fluids as needed 9. Super morbid obesity with debilitation 10 sleep apnea, pulmonary hypertension with noncompliance with CPAP. 12/24/17 4045 <Electronically signed by Yu Romero DO> Date Yu Romero DO Cosigner Signature (if applicable): Date CC: Charlie Powell MD; Yu Romero DO; Silviano Vasquez DO; Rajesh Holman MD Signed HISTORY AND PHYSICAL Observed: 12/24/2017 Status: F Source: [place] EXAM 4:10 PM [facility] REPOSITORY [facility] Medical Records Department [address] [place] [address] History and Physical 12/24/17 1517 MR#: [id number] Acct: [id number] Name: VICKI HERNANDEZ Rep #: [id number] : 1960 57 From: Dami Kim MD PCP: Rajesh Holman MD Status: ADM IN Y Location: ICU ICU-1 Problem List (1) Acute kidney injury Status: Acute (2) Hyperkalemia Status: Acute (3) Digoxin toxicity Status: Acute (4) Vancomycin toxicity Status: Acute (5) Abscess of left lower extremity Status: Chronic Comment: nonhealing infected MRSA diabetic ulcer abscess left posterior leg (6) Abscess of right lower extremity Status: Chronic Comment: nonhealing infected MRSA diabetic ulcer abscess right posterior leg nonhealing infected MRSA diabetic ulcer abscess right posterior thigh (7) Cellulitis of leg, right Status: Chronic (8) Diabetes with ulcer of lower extremity Status: Chronic Comment: nonhealing infected MRSA diabetic ulcers bilateral posterior legs (9) Methicillin resistant Staphylococcus aureus infection Status: Chronic (10) Chronic atrial fibrillation Status: Chronic (11) Congestive heart failure Status: Chronic (12) Hypertension Status: Chronic (13) Morbid obesity Status: Chronic (14) Pulmonary hypertension Status: Chronic (15) Type 2 diabetes mellitus Status: Chronic (16) Acute on chronic congestive heart failure Status: Suspected History of Present Illness Date of Admission: 12/24/17 Chief Complaint: Altered mental status AND kidney failure The patient is a 57 year old F with multiple medical comorbidities including diabetes mellitus type 2, pulmonary hypertension, chronic A. fib and MRSA cellulitis with nonhealing ulcer on bilateral lower extremities status post extensive debridement and wound VAC placement during last admission from December 06- and discharged to long-term on IV vancomycin. As per the son, patient was having periods of confusion, weakness, hallucinations and muscle twitching for last 5-7 days. During labs done in [facility], patient was found to have kidney failure with high BUN, creatinine and dig level. As per the EMS note, patient was also short of breath and weak found to have bradycardia. Patient was transferred to [facility] ER, patient heart rate dropped to 17-40/M and was given half ampule of atropine. Initial labs done in ER was markedly abnormal for digoxin 2.94, BUN 67, creatinine 7.2 and K 5.5. INR 3.6. Vanco level was 141 and INR 6.9 on December 23. Patient also had 500 normal saline bolus when her blood pressure was systolic 80s-90s, she also received fentanyl 50 mcg. EKG shows atrial fibrillation 35 bpm Patient was transferred to ICU directly. Patient has right arm PICC line. [] Past Medical History Past Medical History (Chronic Problems): Chronic Problems (Last Updated 12/07/17 @ 09:05 by Thomas Carrasco MD) Abscess of right lower extremity (Chronic) nonhealing infected MRSA diabetic ulcer abscess right posterior leg nonhealing infected MRSA diabetic ulcer abscess right posterior thigh Abscess of left lower extremity (Chronic) nonhealing infected MRSA diabetic ulcer abscess left posterior leg Methicillin resistant Staphylococcus aureus infection (Chronic) Diabetes with ulcer of lower extremity (Chronic) nonhealing infected MRSA diabetic ulcers bilateral posterior legs Pulmonary hypertension (Chronic) Cellulitis of leg, right (Chronic) Morbid obesity (Chronic) Congestive heart failure (Chronic) Chronic atrial fibrillation (Chronic) Type 2 diabetes mellitus (Chronic) Hypertension (Chronic) Allergies latex Allergy (Verified 03/26/15 11:04) Itching pentazocine lactate [From Talwin] Allergy (Verified 03/26/15 11:04) Itching phenobarbital Allergy (Verified 03/26/15 11:04) Itching tree nut Allergy (Verified 03/26/15 11:04) Anaphylaxis codeine Adverse Reaction (Verified 03/26/15 11:04) Upset Stomach Home Medications: Ambulatory Orders Medication Instructions Recorded Citalopram [Celexa] 40 mg PO DAILY 03/20/15 Surgical History: cholecystectomy, hysterectomy - with BSO, tonsillectomy, - - 2 section. Psychiatric History: No pertinent psych hx CAR SCRUBBER History: No pertinent CAR SCRUBBER history Smoking Status: Former smoker - *Family History Maternal History Items: No pertinent history Paternal History Items: No pertinent history Review of Systems Constitutional: Reports: Malaise, Weakness, Fatigue. Denies: Chills, Fever HEENT: Denies: Head Aches, Sinus Congestion, Sinus Drainage Cardiovascular: Denies: Chest Pain, Palpitations Respiratory: Reports: Shortness of Breath. Denies: Cough, Shortness of breath at rest, Sputum production Gastrointestinal: Denies: Abdominal Pain, Nausea, Vomiting Genitourinary: Denies: Dysuria Musculoskeletal: Reports: Joint Pain, Joint stiffness, Joint swelling. Denies: Joint Tenderness Skin: Reports: Rash, Wounds, - - Has wound VAC Neurological: Denies: Numbness, Tingling, Focal weakness Psychiatric: Denies: Anxiety, Depression, Homicidal Ideations, Suicidal Ideations Hematologic/ Lymphatic: Denies: Easy Bleeding VTE Information - Inpt Only VTE Present on Admission: No VTE Mechan Device Prophylaxis: SCD's VTE Pharm Prophylaxis ordered?: No Reason prophylaxis not ordered:: Medical Contraindication - Coagulopathy Patient Problems: Active and Suspected Problems (Last Updated 12/07/17 @ 09:05 by Thomas Carrasco MD) Acute kidney injury (Acute) Hyperkalemia (Acute) Digoxin toxicity (Acute) Vancomycin toxicity (Acute) - Physical Exam General: Alert, Oriented x3, Cooperative, Lethargic HEENT: Atraumatic, PERRLA, EOMI, Normocephalic Oral: Dry Mucosa Neck: Supple, No JVD, Negative Carotid Bruits Lungs: Clear to auscultation, No rhonchi, No wheeze, No rales, Diminished Cardiovascular: Normal S1, Normal S2, No murmurs, Bradycardic Abdomen: Bowel Sounds Present, Soft, Non Tender, Non-Distended Extremities: Capillary Refill Less than 3 Seconds, Edema Skin: Ulcer/ Wound - Multiple wounds present or bilateral lower extremities, 2 each on bilateral lower legs, lateral aspect and one on right thigh. wound vac present Musculoskeletal: No Tenderness to Palpation of Joints or Extremities Neurological: Cranial nerves II-XII grossly intact Psych/Mental Status: Normal Affect, Appropriate Vital Signs Pulse Ox 95 12/24/17 15:15 Oxygen Flow Rate (L/min) 4 Oxygen Delivery Method Nasal Cannula Assessment/Plan Active and Suspected Problems (Last Updated 12/07/17 @ 09:05 by Thomas Carrasco MD) Acute kidney injury (Acute) Hyperkalemia (Acute) Digoxin toxicity (Acute) Vancomycin toxicity (Acute) The patient is a 57 year old F with multiple medical comorbidities including diabetes mellitus type 2, pulmonary hypertension, chronic A. fib and MRSA cellulitis with nonhealing ulcer on bilateral lower extremities status post extensive debridement and wound VAC placement during last admission from December 06- and discharged to long-term on IV vancomycin. As per the son, patient was having periods of confusion, weakness, hallucinations and muscle twitching for last 5-7 days. During labs done in [facility], patient was found to have kidney failure with high BUN, creatinine and dig level. As per the EMS note, patient was also short of breath and weak found to have bradycardia. Patient was transferred to [facility] ER, patient heart rate dropped to 17-40/M and was given half ampule of atropine. Initial labs done in ER was markedly abnormal for digoxin 2.94, BUN 67, creatinine 7.2 and K 5.5. INR 3.6. Vanco level was 141 and INR 6.9 on December 23. Patient also had 500 normal saline bolus when her blood pressure was systolic 80s-90s, she also received fentanyl 50 mcg. EKG shows atrial fibrillation 35 bpm Patient was transferred and admitted directly in ICU. Patient has right arm PICC line. 1. Severe bradycardia with hypotension: The patient when seen in ICU, heart rate in 50s and blood pressure 110-120s. At times, patient has got sinus pause. Sql Developer and trouble locater was consulted. The consent was taken for dialysis catheter insertion for emergent dialysis; right IJ dialysis catheter was inserted by assistant plant controller. Discussed with the family member including patient's son. 2. Acute kidney injury with hyperkalemia: Needs urgent hemodialysis. Urine output about 100 mL of dark brown color. Follow-up urine output, electrolytes and kidney function. On further review of her kidney function, she had normal creatinine before discharge on December 12 but in December 2016 she had acute kidney injury with creatinine 2.16 which got better with conservative management. She never required hemodialysis before this event. 3. Vancomycin and digoxin toxicity: We will repeat vancomycin and dig level after hemodialysis. 4. Diabetes mellitus type 2: On Accu-Chek before meals and at bedtime cover with NovoLog sliding scale. Adjust insulin as per Accu-Cheks. 5. Multiple bilateral nonhealing diabetic MRSA leg ulcer status post extensive debridement, incision and drainage and wound VAC: Wound care nurse has been consulted. She had debridement during her last admission in November 2017 as mentioned above. 6. Chronic A. fib: Patient was on digoxin, Cardizem, Nadolol and Coumadin: Medications are on hold for severe bradycardia and coagulopathy Acute on chronic anemia secondary to multiple comorbidities: Hemoglobin found is 8.8. Platelet 395,000 other comorbidities include pulmonary hypertension, morbid obesity, hypertension, chronic diastolic heart failure and super morbid obesity: Home medication reconciliation done. Multiple comorbidities complicates the present care. Total time spent in [id number] encounter, review of lab from ER, discussion with the consultants, Dr. Powell and Dr. Romero and with the family member, more than 50 minutes The present care discussed with the patient's son and other family members. This note was generated with [employer] dictation software. Every effort was made to ensure accuracy, however computerized subsurface augmentee elint operator mistakes may persist. [] Code Visit Inpatient E AND M: 81705 Init Hosp L3 12/24/17 1610 <Electronically signed by Dami Kim MD> Date Dami Kim MD Cosigner Signature: Date (if applicable) CC: Dami Kim MD; Rajesh Holman MD Signed CBC-COMPLETE BLOOD CNT Collected: 12/24/2017 Status: F Source: [place] NO DIFF 4:10 PM [facility] REPOSITORY TYPE CODE TESTS RESULT OUT OF RANGE REFERENCE UNITS LAB L100.1000 4.4-11.0 K/mm3 Normal WBC 6.0 LAB L100.1200 4.2-5.4 M/mm3 Low RBC 2.97 LAB L100.1300 12.0-15.0 g/dl Low HGB 8.6 LAB L100.1400 37-47 % Low HCT 29.0 LAB L100.1500 81-99 fL Normal MCV 97.6 LAB L100.1600 27.0-32.0 pg Normal MCH 29.0 LAB L100.1700 32-36 g/gl Low MCHC 29.7 LAB L100.1810 11.6-14.6 % High RDW CV 19.5 LAB L100.1820 35.1-43.9 fl High RDW SD 65.5 LAB L100.1900 150-450 K/mm3 Normal PLT 317 LAB L100.2000 6.2-12.0 fl Normal MPV 9.5 Performed By: #### L100.0500, L101.9900, L100.4500 #### [facility] [address] [place], [place], [id number] ERYTHROCYTE SED RATE Collected: 12/24/2017 Status: F Source: [place] 4:10 PM [facility] REPOSITORY TYPE CODE TESTS RESULT OUT OF RANGE REFERENCE UNITS LAB L102.0000 0-30 mm/hr High SED RATE 103 Performed By: #### L100.0500, L101.9900, L100.4500 #### [facility] [address] [place], [place], [id number] DIFFERENTIAL COMMENT Collected: 12/24/2017 Status: F Source: [place] 4:10 PM [facility] REPOSITORY TYPE CODE TESTS RESULT OUT OF RANGE REFERENCE UNITS LAB L100.4500 Normal SMEAR COMMENT SCANNED Result Comment: 2+ ANISOCYTOSIS 1+ MACROCYTOSIS ADEQUATE PLATELETS NOTED ON SLIDE REVIEW Performed By: #### L100.0500, L101.9900, L100.4500 #### [facility] [address] [place], [place], [id number] PROTHROMBIN TIME W/INR Collected: 12/24/2017 Status: F Source: [place] 4:10 PM [facility] REPOSITORY TYPE CODE TESTS RESULT OUT OF RANGE REFERENCE UNITS LAB L300.4150 11.7-14.9 SECONDS High PROTIME 31.4 LAB L300.4200 Normal INR 3.0 Performed By: #### L300.3900, L300.4310 #### [facility] [address] [place], [place], [id number] PARTIAL THROMBOPLAST Collected: 12/24/2017 Status: F Source: [place] TIME 4:10 PM [facility] REPOSITORY TYPE CODE TESTS RESULT OUT OF REFERENCE UNITS RANGE LAB L300.4310 24.1-36.2 Seconds High PTT 48.3 Performed By: #### L300.3900, L300.4310 #### [facility] [address] [place], [address] COMPREHENSIVE METABOLIC Collected: 12/24/2017 Status: F Source: [place] PROFIL 4:10 PM [facility] REPOSITORY Order Comment: 'TROP' Serial specimen #1, #2, #3, or #4: 1 TYPE CODE TESTS RESULT OUT OF RANGE REFERENCE UNITS LAB L501.0100 74-106 mg/dL Normal GLU 92 Result Comment: Please note revised GLUCOSE reference range effective 2017. LAB L501.1000 7-18 mg/dL High BUN 66 LAB L501.1100 0.55-1.02 mg/dL High alert CREAT,SERUM 7.48 Result Comment: Critical Result(s) Called at: 17:01:09 12/24/2017 by: [place]ara major to LMAST The validity of the calculated GFR AND GFRAA in patients over 70 years has not been determined. Clinical correlation is essential. LAB L501.1110 >60 mL/min Low EST GFR 6 Result Comment: Non- GFR Calc LAB L501.1115 >60 mL/min Low EST GFR - AA 7 Result Comment: GFR Calc LAB L501.1255 ml/min Normal Estimated CRCL 7.58 LAB L501.1300 10-20 RATIO Low BUN/CRE 8.8 LAB L501.1500 6.4-8.2 g/dL Normal T PROT 8.1 LAB L501.1800 3.2-5.0 g/dL Low ALB 2.4 LAB L501.1950 2.2-4.2 g/dL High GLOB 5.7 LAB L501.2000 0.9-2.4 RATIO Low A/G 0.4 LAB L501.2200 8.5-10. mg/dL Low 1 CA 8.1 LAB L501.4100 15-37 U/L Low AST 13 LAB L501.4305 45-117 U/L Normal ALK P 92 LAB L501.4405 13-56 U/L Low ALT 8 LAB L501.4600 0.20-1. mg/dL Normal 00 T BILI 0.50 LAB L501.5300 136-145 mmol/L Normal NA 137 LAB L501.5600 3.5-5.1 mmol/L High K 5.5 LAB L501.5900 98-107 mmol/L Normal CL 101 LAB L501.6100 21.0-32 mmol/L Normal .0 CO2 27.0 LAB L501.6200 5-15 Normal GAP 9 Performed By: #### L500.4050, L501.4010, L501.5200 #### [facility] [address] [facility] [place], [place], [id number] TROPONIN-I Collected: 12/24/2017 Status: F Source: [place] 4:10 PM [facility] REPOSITORY Order Comment: 'TROP' Serial specimen #1, #2, #3, or #4: 1 TYPE CODE TESTS RESULT OUT OF RANGE REFERENCE UNITS LAB L501.4010 <0.06 ng/mL Normal < 0.02 TROPONIN-I Result Comment: TROPONIN-I EXPECTED VALUES <0.05 NEGATIVE 0.06 - 0.[address] > OR = 0.[address] Performed By: #### L500.4050, L501.4010, L501.5200 #### [facility] [address] [place], [place], [address] MAGNESIUM Collected: 12/24/2017 Status: F Source: [place] 4:10 PM [facility] REPOSITORY Order Comment: 'TROP' Serial specimen #1, #2, #3, or #4: 1 TYPE CODE TESTS RESULT OUT OF RANGE REFERENCE UNITS LAB L501.5200 1.6-2.6 mg/dL Normal MG 2.3 Performed By: #### L500.4050, L501.4010, L501.5200 #### [facility] [address] [place] [address], [id number] LACTIC ACID Collected: 12/24/2017 Status: F Source: [place] 4:10 PM [facility] REPOSITORY Order Comment: Yes/No query for Sepsis Lactate Rule Y TYPE CODE TESTS RESULT OUT OF RANGE REFERENCE UNITS LAB L503.6005 0.4-2.0 mmol/L Normal LACTIC ACID 1.4 Performed By: #### L503.6005 #### [facility] [address] [place] [address], [address] M R STAPH AUREUS Collected: 12/24/2017 Status: C Source: [place] DNA BY PCR 4:00 PM [facility] REPOSITORY TYPE CODE TESTS RESULT OUT OF REFERENCE UNITS RANGE LAB L8200.1100 Negative High MRSA POSITIVE RESULT Result Comment: SENT TO [facility] 12-24-17 AT 1746 PM RESULTS CALLED TO GURDEEP HERNANDEZ ICU 12/24/17 1745 Melody Singh. REPORT READ BACK BY SAME . Performed By: #### L8200.1000 #### [facility] [address] [place] [address], [id number] OPERATIVE REPORT Observed: 12/24/2017 Status: F Source: [place] 3:30 PM [facility] REPOSITORY [facility] Medical Records Department [address] [place] [address] Operative Report 12/24/17 1527 MR#: [id number] Acct: [id number] Name: VICKI HERNANDEZ Rep #: [id number] : 1960 57 From: Mitali Garibay SYSTEM SUPPORT ANALYST-C PCP: Rjaesh Holman MD Status: ADM IN Y Location: ICU ICU05-1 Operative Report Date of Procedure: 12/24/17 - Dialysis catheter insertion Dialysis catheter placement procedure note Indication: Dialysis Procedure: A time-out was completed to verify correct patient, indication, medication allergies, procedure, coagulation studies, informed consent signed, and equipment needed. The patient was placed in the supine position for a central line placement to the rt IJ vein. The patients rt neck was prepped using chlorhexidine and a full body sterile drape was applied. 1% lidocaine was used to anesthetize the surrounding skin. A 12fr 16 cm temporary dialysis catheter introduced into the internal jugular vein using the modified Seldinger technique with the assistance of ultrasound. The site was dilated twice in a stepwise fashion. The catheter was threaded smoothly over the guidewire, the guidewire was removed easily, nonpulsatile blood returned. All ports were aspirated of air and flushed with sterile saline, and then locked with 1.3 cc in each port of U 1000 heparin. The catheter was sutured in place and covered with an occlusive dressing impregnated with chlorhexidine. Post-procedure: The patient tolerated the procedure well. Vital signs remained stable. EBL 7 cc. No complications. Chest X Ray ordered to confirm tip placement and the absence of pneumothorax. Code Visit Procedures: [id number] Insert Non-tunnel CV Cath 12/24/17 1530 <Electronically signed by Mitali BA> Date Mitali BA CC: Charlie Powell MD; Mitali Garibay; Yu Romero DO; Silviano Vasquez DO; Rajesh Holman MD Signed PROGRESS Observed: 12/24/2017 Status: COMPLETED Source: [place] 3:22 PM [facility] REPOSITORY [facility] ID: [id number] Author: Melvina Almaraz (Rn) Service: (none) Author Type: Registered Nurse Type: Progress Notes Filed: 12/24/2017 3:27 PM Note Text: PRIMARY CARE COORDINATION FOLLOW-UP NOTE Provider Action/FYI FYI Patient identified by name and date of . YES Spoke to nurse Norm at [facility] Summary: Asked about patient's status, states they sent her into [facility] in Renal Failure [employer] Manager plan for next outreach: Will follow up next week Signature Melvina Almaraz RN December 24, 2017 CHEST 1 VIEW Observed: 12/24/2017 Status: F Source: [place] (PORTABLE) 3:11 PM [facility] REPOSITORY [facility] Imaging Services [address] [place] [address] Chest 1 View (Portable) MR#: [id number] Acct: [id number] Name: VICKI HERNANDEZ Rep #: [id number] : 1960 F 57 From: Clinton Gallagher DO PCP: Rajesh Holman MD Status: ADM IN Study: Chest 1 View (Portable) Date of Exam: 12/24/17 Exam# [id number] Ordering Dr: Charlie Powell MD STUDY: X-RAY CHEST REASON FOR EXAM: Female, 57 years old. Line placement TECHNIQUE: Single AP portable view of the chest. COMPARISON: 12/08/2017 FINDINGS: Right IJ central venous catheter is noted with tip in the mid SVC. No pneumothorax. Lungs are adequately inflated with diffuse interstitial edema and vascular congestion. There is no demonstrated pleural abnormality. Mild cardiomegaly. Normal mediastinum and han. Normal visualized pulmonary arteries. Normal visualized aortic arch and descending thoracic aorta. There are diffuse degenerative changes of the visualized thoracic spine. Normal visualized ribs, clavicles, and shoulders. There is no demonstrated abnormality of the visualized soft tissue structures of the upper abdomen. RAD/Chest 1 View (Portable) IMPRESSION: Right IJ central venous catheter as above with diffuse pulmonary edema Electronically Signed: Clinton Gallagher DO at 15:56 EDT Tel , Service support , CC: Charlie Powell MD; Rajesh Holman MD Dog Licenser: Signed PROTHROMBIN TIME AND Collected: 12/24/2017 Status: F Source: [place] 12:00 PM [facility] REPOSITORY TYPE CODE TESTS RESULT OUT OF REFERENCE UNITS RANGE LAB PROTHROMBIN TIME AND INR(LOINC) PROTHROMBIN TIME AND INR Result Comment: PROTHROMBIN TIME AND INR LAB PT-COUMADIN(LOINC) sec PT-COUMADIN 39.7 LAB INR(LOINC) 0.8 - 1.2 INR High 3.6 Result Comment: THE HEMOSIL THROMBOPLASTIN REAGENT USED IN THE PROTHROMBIN TIME TEST INTERACTS WITH THE DRUG CUBICIN (DAPTOMYCIN) AND WILL RESULT IN FALSELY ELEVATED PT / INR RESULTS INR INTERPRETATION INR INDICATION PREVENTION AND TREATMENT OF THROMBOEMBOLISM ASSOCIATED WITH: 2.0 - 3.0 ATRIAL FIBRILLATION, BIOPROSTHETIC HEART VALVES, PULMONARY EMBOLISM, VENOUS THROMBOSIS, SYSTEMIC EMBOLISM POST MYOCARDIAL INFARCTION 2.5 - 3.5 MECHANICAL HEART VALVES Performed By: #### [id number] #### [facility],[address] [place], [place] [id number] CBC Collected: 12/24/2017 Status: F Source: [facility] 12:00 PM [facility] REPOSITORY TYPE CODE TESTS RESULT OUT OF RANGE REFERENCE UNITS LAB CBC(LOINC) CBC Result Comment: CBC-COMPLETE BLOOD COUNT LAB WBC(LOINC) 4.5 - 10.8 x 10EE3/UL WBC 7.6 LAB RBC(LOINC) 4.10 - x 10EE6/UL 5.30 RBC Low 3.04 LAB HEMOGLOBIN(LOINC 12.0 - g/dl ) 16.0 Low HEMOGLOBIN 8.8 LAB HEMATOCRIT(LOINC 34.0 - % ) 46.0 Low HEMATOCRIT 27.3 LAB MCV(LOINC) 80 - 99 fl MCV 90 LAB MCH(LOINC) 27 - 33 pg MCH 29 LAB MCHC(LOINC) 32 - 36 X10 3 MCHC 32 LAB RDW/CV(LOINC) 12.0 - % 15.6 RDW/CV High 19.7 LAB PLATELET(LOINC) 150 - 450 x10EE3/UL PLATELET 395 LAB MPV(LOINC) 6.6 - 10.5 fl MPV 7.7 Result Comment: AUTOMATED DIFFERENTIAL LAB NEUT %(LOINC) 46.0 - 76.0 % NEUT % 69.4 LAB LYMPH %(LOINC) 20.0 - 45.0 % LYMPH % Low 16.5 LAB MONOS %(LOINC) 0.0 - 10.0 % MONOS % 8.3 LAB EO %(LOINC) 0.0 - 7.0 % EO % 4.5 LAB BASO %(LOINC) 0.0 - 2.0 % BASO % 1.3 LAB Lymph #(LOINC) 0.80 - 2.80 x10EE3/U L Lymph # 1.30 LAB Neut #(LOINC) 1.50 - 7.10 x10EE3/U L Neut # 5.30 LAB Alcorn #(LOINC) 0.20 - 1.00 x10EE3/U L Alcorn # 0.60 LAB EO #(LOINC) 0.00 - 0.50 x10EE3/U L EO # 0.30 LAB Baso #(LOINC) 0.00 - 0.10 x10EE3/U L Baso # 0.10 LAB MANUAL DIFF(LOINC) MANUAL DIFF N/A LAB MORPHOLOGY(INC ) MORPHOLOGY N/A Result Comment: {CD] Performed By: #### [id number] #### [place] [address] TROPONIN Collected: 12/24/2017 Status: F Source: [facility] 12:00 [facility] REPOSITORY TYPE CODE TESTS RESULT OUT OF REFERENCE UNITS RANGE LAB TROPONIN 0.00 - 0.05 ng/ml I(LOINC) TROPONIN I 0.01 Result Comment: Elevated troponin (above the 99th percentile) usually indicates myocardial ischemia. Results must be interpreted within the clinical setting. 1.Non-ischemic pathology can also cause elevated troponin levels (e.g., acute pulmonary embolism, myocarditis, pericarditis, heart failure, intracranial injury, rhabdomyolisis, sepsis, shock and renal insufficiency). 2.Approximately 1% of healthy adults have elevated troponin levels. 3.Analytical false positive results rarely occur(due to multiple interferences such as heterophile antibodies). Performed By: #### [id number] #### [place] [address] CMP WITH EGFR Collected: 12/24/2017 Status: F Source: [facility] 12:00 [facility] REPOSITORY TYPE CODE TESTS RESULT OUT OF RANGE REFERENCE UNITS LAB CMP with eGFR(LOINC) CMP with eGFR Result Comment: COMPREHENSIVE METABOLIC PANEL LAB SODIUM(LOINC) 136 - 145 mmol/l SODIUM 137 LAB POTASSIUM(LOINC) 3.5 - 5.1 mmol/L High POTASSIUM 5.5 LAB CHLORIDE(LOINC) 98 - 107 mmol/L CHLORIDE 100 LAB CO2(LOINC) 21.0 - mmol/L 31.0 CO2 24.9 LAB GLUCOSE(LOINC) 74 - 106 mg/dl GLUCOSE High 109 LAB BUN(LOINC) 6 - 20 mg/dl BUN High 63 LAB CREATININE(LOINC) 0.6 - 1.2 mg/dl High CREATININE 7.2 LAB AST/SGOT(LOINC) 13 - 39 U/L AST/SGOT Low 10 LAB ALK PHOS(LOINC) 38 - 126 U/L ALK PHOS 78 LAB CALCIUM(LOINC) 8.6 - mg/dl 10.2 CALCIUM Low 8.4 LAB TOTAL 6.4 - 8.3 g/dl PROTEIN(LOINC) TOTAL PROTEIN 7.8 LAB ALBUMIN(LOINC) 3.4 - 4.8 g/dL ALBUMIN Low 2.8 LAB GLOBULIN(LOINC) 1.5 - 3.8 G/DL GLOBULIN High 5.0 LAB A/G RATIO(LOINC) 0.9 - 1.6 A/G Low RATIO 0.6 LAB TOTAL BILI(LOINC) 0.0 - 1.5 mg/dl TOTAL BILI 0.4 LAB B/C RATIO(LOINC) 0 - 30 ratio B/C RATIO 9 LAB ALT/SGPT(LOINC) 8 - 35 U/L ALT/SGPT Low 7 LAB ANION GAP(LOINC) 10 - 20 mmol/L ANION GAP 18 LAB AGE(LOINC) years AGE 57 LAB eGFR(LOINC) 60 - 999 ML/MINUTE eGFR Low 6 LAB eGFR(AA)(LOINC) 60 - 999 ML/MINUTE eGFR(AA) Low 7 Result Comment: ACCORDING TO THE NATIONAL KIDNEY DISEASE EDUCATION PROGRAM(NKDE), A NORMAL eGFR IS A VALUE GREATER THAN OR EQUAL TO 60 ML/MIN/1.73 SQ METERS. CHRONIC KIDNEY DISEASE: <60mL/MIN/1.73 SQ METERS KIDNEY FAILURE: <15mL/MIN/1.73 SQ METERS THIS TEST SHOULD ONLY BE USED FOR PATIENTS 18 YEARS OF AGE AND OLDER. Performed By: #### [id number] #### [place] [address] MAGNESIUM Collected: 12/24/2017 Status: F Source: [facility] 12:00 [facility] REPOSITORY TYPE CODE TESTS RESULT OUT OF REFERENCE UNITS RANGE LAB MAGNESIUM( 1.6 - 2.6 mg/dl LOINC) MAGNESIUM 2.2 Performed By: #### [id number] #### [place] [address] DIGOXIN Collected: 12/24/2017 Status: F Source: [facility] 12:00 [facility] REPOSITORY TYPE CODE TESTS RESULT OUT OF REFERENCE UNITS RANGE LAB DIGOXIN(CONCEPCIÓN 0.90 - 2.00 ng/ml NC) High Alert DIGOXIN 2.94 Result Comment: { CALLED TO BOBBY/CHON 1240 { READ BACK BY RA-[id number] Performed By: #### [id number] #### [facility],[address] [place], [place] [id number] BNP (B-TYPE NATRIURETIC Collected: 12/24/2017 Status: F Source: [place] PEPTIDE) 12:00 PM [facility] REPOSITORY TYPE CODE TESTS RESULT OUT OF RANGE REFERENCE UNITS LAB BNP(LOINC) 1 - 100 pg/ml High BNP 322 Performed By: #### [id number] #### [facility],[address] [place], [place] [id number] CHEST 1 VIEW Observed: 12/24/2017 Status: F Source: [place] 10:22 AM [facility] REPOSITORY [place] [id number] Patient: VICKI HERNANDEZ Phone#: : 1960 Age: 57 Gender: F Pt. Type: ER Account: [id number] Location: [facility] Ordering: TIMOTHY DELGADO Exam Date: 12/24/2017/10:14 Family Phys: Charge Code: 689014 Physician: [place] Order #: [id number] DLP Dose#: PROCEDURE: X-RAY CHEST 1 VIEW COMPARISON: [facility], XR, CHEST PA/LAT, 10/14/2015, 14:14. INDICATIONS: Dyspnea FINDINGS: LUNGS: Normal. No significant pulmonary parenchymal abnormalities. VASCULATURE: Pulmonary vasculature is mildly prominent. CARDIAC: Mild stable cardiomegaly. MEDIASTINUM: Normal. No visible mass or adenopathy. PLEURA: Normal. No effusion or pleural thickening. BONES: Normal. No fracture or visible bony lesion. OTHER: Negative. CONCLUSION: 1. Mild vascular congestion. 2. Mild stable cardiomegaly. Dictated by: Neelam Johnson MD on 12/24/2017 at 10:25 Approved by: Neelam Johnson MD on 12/24/2017 at 10:25 PROTHROMBIN TIME AND Collected: 12/24/2017 Status: F Source: [place] INR 6:00 [facility] REPOSITORY TYPE CODE TESTS RESULT OUT OF REFERENCE UNITS RANGE LAB PROTHROMBIN TIME AND INR(LOINC) PROTHROMBIN TIME AND INR Result Comment: PROTHROMBIN TIME AND INR LAB PT-COUMADIN(LOINC) sec PT-COUMADIN 42.6 LAB INR(LOINC) 0.8 - 1.2 INR High 3.9 Result Comment: THE HEMOSIL THROMBOPLASTIN REAGENT USED IN THE PROTHROMBIN TIME TEST INTERACTS WITH THE DRUG CUBICIN (DAPTOMYCIN) AND WILL RESULT IN FALSELY ELEVATED PT / INR RESULTS INR INTERPRETATION INR INDICATION PREVENTION AND TREATMENT OF THROMBOEMBOLISM ASSOCIATED WITH: 2.0 - 3.0 ATRIAL FIBRILLATION, BIOPROSTHETIC HEART VALVES, PULMONARY EMBOLISM, VENOUS THROMBOSIS, SYSTEMIC EMBOLISM POST MYOCARDIAL INFARCTION 2.5 - 3.5 MECHANICAL HEART VALVES Performed By: #### [id number] #### [place] [address] HEMOGLOBIN Collected: 12/24/2017 Status: F Source: [facility] 6:00 [facility] REPOSITORY TYPE CODE TESTS RESULT OUT OF REFERENCE UNITS RANGE LAB HEMOGLOBIN 12.0 - 16.0 g/dl (LOINC) Low HEMOGLOBIN 8.9 Result Comment: {HH] Performed By: #### [id number] #### [place] [address] BMP WITH EGFR Collected: 12/24/2017 Status: F Source: [place] 6:00 [facility] REPOSITORY TYPE CODE TESTS RESULT OUT OF RANGE REFERENCE UNITS LAB BMP with eGFR(LOINC) BMP with eGFR Result Comment: BASIC METABOLIC PANEL LAB SODIUM(LOINC) 136 - 145 mmol/l SODIUM 139 LAB POTASSIUM(LOINC) 3.5 - 5.1 mmol/L High POTASSIUM 5.4 LAB CHLORIDE(LOINC) 98 - 107 mmol/L CHLORIDE 100 LAB CO2(LOINC) 21.0 - mmol/L 31.0 CO2 27.0 LAB GLUCOSE(LOINC) 74 - 106 mg/dl GLUCOSE 85 LAB BUN(LOINC) 6 - 20 mg/dl BUN High 62 LAB CREATININE(LOINC) 0.6 - 1.2 mg/dl High CREATININE 7.1 LAB CALCIUM(LOINC) 8.6 - mg/dl 10.2 CALCIUM Low 7.9 LAB ANION GAP(LOINC) 10 - 20 mmol/L ANION GAP 17 LAB AGE(LOINC) years AGE 57 LAB eGFR(LOINC) 60 - 999 ML/MINUTE eGFR Low 6 LAB eGFR(AA)(LOINC) 60 - 999 ML/MINUTE eGFR(AA) Low 7 Result Comment: ACCORDING TO THE NATIONAL KIDNEY DISEASE EDUCATION PROGRAM(NKDE), A NORMAL eGFR IS A VALUE GREATER THAN OR EQUAL TO 60 ML/MIN/1.73 SQ METERS. CHRONIC KIDNEY DISEASE: <60mL/MIN/1.73 SQ METERS KIDNEY FAILURE: <15mL/MIN/1.73 SQ METERS THIS TEST SHOULD ONLY BE USED FOR PATIENTS 18 YEARS OF AGE AND OLDER. Performed By: #### [id number] #### [place] [address] VANCOMYCIN TROUGH Collected: 12/24/2017 Status: F Source: [facility] 6:00 [facility] REPOSITORY TYPE CODE TESTS RESULT OUT OF RANGE REFERENCE UNITS LAB VANCOMYCIN, 10.0 - 15.0 ug/mL TROUGH(LOIN High C) Alert 97.4 VANCOMYCIN,T ROUGH Result Comment: { CALLED TO KERRY/CHON 0854 { READ BACK BY MAX Performed By: #### [id number] #### [place] [address] DIGOXIN Collected: 12/24/2017 Status: F Source: [facility] 6:00 [facility] REPOSITORY TYPE CODE TESTS RESULT OUT OF REFERENCE UNITS RANGE LAB DIGOXIN(CONCEPCIÓN 0.90 - 2.00 ng/ml NC) High Alert DIGOXIN 3.03 Result Comment: { CALLED TO KERRY/CHON 0854 { READ BACK BY MAX Performed By: #### [id number] #### [place] [address] HGB A1C Collected: 12/24/2017 Status: F Source: [facility] 6:00 [facility] REPOSITORY TYPE CODE TESTS RESULT OUT OF RANGE REFERENCE UNITS LAB HGB 4.4 - 6.4 % A1C(LOINC) High HGB A1C 8.9 Result Comment: {HB] {A1] Performed By: #### [id number] #### [address] [place] [address] CNPTOUTREACH Observed: 12/24/2017 Status: COMPLETED Source: [place] 12:00 AM [facility] REPOSITORY Patient Outreach (FAMPWS) MARYVICKI W ([id number]) 1960 F Date Time Provider Department 12/24/17 MELVINA ALMARAZ (RN) [facility] During your visit today, we recorded the following information about you: Melvina Almaraz (Rn) 12/24/2017 3:27 PM Signed PRIMARY CARE COORDINATION FOLLOW-UP NOTE Provider Action/FYI FYI Patient identified by name and date of . YES Spoke to nurse Norm at [facility] Summary: Asked about patient's status, states they sent her into [facility] in Renal Failure [employer] Manager plan for next outreach: Will follow up next week Signature Melvina Almaraz RN December 24, 2017 Allergies As of Date: 12/24/2017 Noted Allergy Reaction CODEINE 11/19/2010 14 - Other: See Comments Comments: Itching, vomitting LATEX 11/19/2010 14 - Other: See Comments Comments: Itching,hives,dyspnea PHENOBARBITAL 11/19/2010 14 - Other: See Comments Comments: Nausea, itching TALPAGE (PENTAZOCINE LACTATE) 11/19/2010 1 - Mental Status Change Comments: Hallucinations TREE NUT 02/07/2015 10 - Anaphylaxis Date Reviewed: 06/08/2017 Reviewed by: Karena Shaikh Cma - Fully Assessed 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 5 p* INSULIN SYRINGE-NEEDLE U-100 * USE ONE SYRINGE FOR EACH INSU* INSULIN LISPRO (U-100) 100 UN* Inject 14 Units subcutaneousl* CITALOPRAM 40 MG TABLET Take 1 tablet by mouth once d* EXENATIDE 5 MCG/DOSE (250 MCG* INJECT 5 mcg SUBCUTANEOUSLY T* LANTUS SOLOSTAR U-100 INSULIN* Inject 46 units subcutaneousl* WARFARIN 2 MG TABLET 10mg and and * IPRATROPIUM-ALBUTEROL 0.5 MG-* Inhale 3 mL as instructed kris* ALBUTEROL SULFATE HFA 90 MCG/* 2 puffs every 4-6 hrs PRN SOB* BUDESONIDE-FORMOTEROL HFA 160* Inhale 2 Puffs as instructed * COMPOUNDED PRESCRIPTION Oxygen for home @ 2L per BIPA* TORSEMIDE 20 MG TABLET TAKE ONE TABLET BY MOUTH TWIC* NADOLOL 40 MG TABLET TAKE THREE TABLETS BY MOUTH D* GLIPIZIDE 10 MG TABLET Take 1 tablet by mouth twice * TORSEMIDE 20 MG TABLET Take 1 tablet by mouth twice * ALBUTEROL SULFATE 1.25 MG/3 M* USE ONE vial in NEBULIZER KRIS* DIGOXIN 250 MCG TABLET Take 1 tablet by mouth once d* POLYETHYLENE GLYCOL 3350 17 G* Take 1 Packet by mouth as nee* CPAP ACETAMINOPHEN ER 650 MG TABLE* Take 650 mg by mouth every 8 * Problem List As Of Date 12/24/2017 Noted Resolved Diabetes (HCC) [E11.9] INVALID FOR* More... Atrial fibrillation (HCC) [I48.91] INVALID FOR* Priority: A More... Lymphedema [I89.0] INVALID FOR* Priority: B More... Heart failure, systolic and diastolic, acute on*INVALID FOR*12/31/2014 More... Obesity, morbid, BMI 50 or higher (HCC) [E66.01]INVALID FOR* More... Hypertension [I10] INVALID FOR* More... HUNTER (obstructive sleep apnea) [G47.33] INVALID FOR* More... Pulmonary HTN (HCC) [I27.20] INVALID FOR* More... Atrial fibrillation with RVR (HCC) [I48.91] INVALID FOR*09/23/2016 More... Heart failure, diastolic, acute (HCC) [I50.31] INVALID FOR* More... Counseling and coordination of care [Z71.89] INVALID FOR*04/12/2015 More... Monoclonal gammopathy [D47.2] INVALID FOR* Empty sella turcica (HCC) [E23.6] INVALID FOR* More... Uncontrolled type 2 diabetes mellitus without c*INVALID FOR*09/23/2016 Encounter Status:Closed by MELVINA ALMARAZ on 12/24/17 VANCOMYCIN TROUGH Collected: 12/23/2017 Status: C Source: [facility] 4:35 PM [facility] REPOSITORY TYPE CODE TESTS RESULT OUT OF RANGE REFERENCE UNITS LAB VANCOMYCIN, 10.0 - 15.0 ug/mL TROUGH(LOIN High C) Alert 105.0 VANCOMYCIN,T ROUGH Result Comment: { CALLED TO DARRELL/CHON 1734 { READ BACK BY [id number] FOLLOWING RESULTS REPORTED IN ERROR VN] VANCOMYCIN,TROUGH 10.5 <-- *Previously reported in error [id number]. .sanjana. .4092-3 . LAB VANCOMYCIN TROUGH(LOINC) VANCOMYCIN TROUGH Result Comment: CORRECTED REPORT LAB ERROR DUE TO(LOINC) BY DILUTION ERROR DUE TO Performed By: #### [id number] #### [facility],[address] [place] [address] PROGRESS Observed: 12/23/2017 Status: COMPLETED Source: [place] 2:20 PM [facility] REPOSITORY O ID: [id number] Author: Rajesh Holman Service: (none) Author Type: Physician Type: Progress Notes Filed: 12/23/2017 2:48 PM Note Text: Thank you for update PROGRESS Observed: 12/23/2017 Status: COMPLETED Source: [place] 12:18 PM [facility] REPOSITORY [facility] ID: [id number] Author: Melvina Almaraz (Rn) Service: (none) Author Type: Registered Nurse Type: Progress Notes Filed: 12/23/2017 1:55 PM Note Text: TC from son, Melody, states pt was twitching so bad that she was dropping the phone this morning. Informed of findings with medication lists per [facility] and Rachana Orr. Staff at [facility] feel it may be part the oxycodone. PCP felt yesterday she probably had some electrolyte imbalance, which they found with BMP which is why pt is getting IV Also informed of other labs they are doing today and tomorrow and explained reasons and elevated INR probably due to ATB and pt given Vit K. Son verbalized understanding and thanked PCP/PCC for keep up with pt while in SNF Informed PCC will check with [facility] nurse tomorrow. TC to Hawa, nurse at [facility]. Pt had CBC, BMP and INR this AM INR was 6.9 and pt was given 2.5 mg Vit K (They feel INR increase is due to antibiotics) MD was worried about pt going into [facility] so she is receiving NS at 100 ml/hr. Pt will have BMP repeated tomorrow AM They are drawing a Dig level and getting a U/A with micro today They have held her oxycodone on hold except for before dsg changes. Giving Tylenol ES and pt is getting same relief but not having the sedative effect with the oxycodone. Melvina Almaraz RN Received medication list from [facility] from pt's son. Only routine meds from PCP list pt isn't taking is Byetta and glypizide Pt is on Ativan PRN for anxiety and Oxycodone for pain. On cefriaxone IV Vancomycin IV Flagyl Nystatin Powder Also on dietary supplements and has indwelling catheter Melvina Almaraz RN VANCOMYCIN TROUGH Collected: 12/23/2017 Status: F Source: [place] 12:03 PM [facility] REPOSITORY TYPE CODE TESTS RESULT OUT OF RANGE REFERENCE UNITS LAB VANCOMYCIN, 10.0 - 15.0 ug/mL TROUGH(LOIN High C) Alert 141.0 VANCOMYCIN,T ROUGH Result Comment: { CALLED TO DARRELL/CHON [id number] { READ BACK BY [id number] Performed By: #### [id number] #### [facility],[address] [place], [place] [id number] DIGOXIN Collected: 12/23/2017 Status: F Source: [place] 12:03 PM [facility] REPOSITORY TYPE CODE TESTS RESULT OUT OF REFERENCE UNITS RANGE LAB DIGOXIN(CONCEPCIÓN 0.90 - 2.00 ng/ml NC) High Alert DIGOXIN 3.56 Result Comment: { CALLED TO DARRELL/CHON 1734 { READ BACK BY RA 1732 Performed By: #### [id number] #### [facility],[address] [place], [place] [address] URINALYSIS WITH Collected: 12/23/2017 Status: F Source: [place] MICROSCOPY 10:45 AM [facility] REPOSITORY TYPE CODE TESTS RESULT OUT OF REFERENCE UNITS RANGE LAB URINALYSIS WITH MICROSCOPY(LOIN C) URINALYSIS WITH MICROSCOPY Result Comment: URINALYSIS LAB Specimen Type(LOINC) Specimen Type Catheter LAB Color(LOINC) NORMAL: YELLOW Color jen LAB Clarity(LOINC) NORMAL: CLEAR Abnormal Clarity CLOUDY LAB ph(LOINC) NORMAL: 5.0-8.0 ph 5 LAB Protein(LOINC) NORMAL: NEGATIVE Abnormal Protein 30 LAB Glucose(LOINC) NORMAL: NORMAL Glucose NORM LAB Ketone(LOINC) NORMAL: NEGATIVE Ketone NEG LAB Bilirubin(LOINC) NORMAL: NEGATIVE Bilirubin NEG LAB Blood(LOINC) NORMAL: NEGATIVE Blood Abnormal 250 LAB Urobilinog(LOINC) NORMAL: NORMAL Urobilinog NORM LAB Sp [place](LOINC) NORMAL: 1.010-1.030 Sp [place] 1.015 LAB Nitrite(LOINC) NORMAL: NEGATIVE Nitrite NEG LAB Leukocytes(LOINC) NORMAL: NEGATIVE Abnormal Leukocytes 500 Result Comment: URINE MICROSCOPIC LAB Wbc(LOINC) 0-5 / hpf Wbc >50 LAB Rbc(LOINC) 0-3 / hpf Rbc TNTC LAB Casts(LOINC) Casts NONE LAB Crystals(LOINC) Crystals NONE LAB Amorphous(LOINC) Amorphous 2+ LAB Bacteria(LOINC) Bacteria 1+ LAB Epi Cells(LOINC) Epi Cells MODERATE LAB Mucous(LOINC) Mucous NONE LAB Yeast(LOINC) Yeast 2+ Performed By: #### [id number] #### [facility],[address] [place], [place] [id number] Observed: 12/23/2017 Status: F Source: [place] CULTURE URINE 10:45 [facility] REPOSITORY CULTURE URINE _URINE CULTURE_ M I C R O B I O L O G Y R E P O R T FINAL Antimicrobial Susceptibility and Organism Identification Report Specimen Number : [id number] Requested : 12/23/17 Specimen Source : URINE Collected : 12/23/17 10:45 [place]ue[facility]a of Isolation : RACHANA ORR Received : 12/23/17 10:45 Requesting Physician : KIMBERLY Patient/Specimen Tests and Comments Specimen Comments FINAL REPORT: URINE COLONY COUNT: > THAN 100,000 CFU/CC >OR=TO 3 COLONY TYPES PROBABLE CONTAMINATION Tech : Source : URINE ID # : [id number] FINAL Report Date : / / : Collected : 12/23/17 10:45 12/26/17.MDS. 12/25/17.MDS. 12/26/17.MDS.COMPLETE Performed By: #### [id number] #### [facility],[address] [place] [address] CBC Collected: 12/23/2017 Status: F Source: [facility] 4:40 AM [facility] REPOSITORY TYPE CODE TESTS RESULT OUT OF RANGE REFERENCE UNITS LAB CBC(LOINC) CBC Result Comment: CBC-COMPLETE BLOOD COUNT LAB WBC(LOINC) 4.5 - 10.8 x 10EE3/UL WBC 6.0 LAB RBC(LOINC) 4.10 - x 10EE6/UL 5.30 RBC Low 3.00 LAB HEMOGLOBIN(LOINC 12.0 - g/dl ) 16.0 Low HEMOGLOBIN 8.8 LAB HEMATOCRIT(LOINC 34.0 - % ) 46.0 Low HEMATOCRIT 27.1 LAB MCV(LOINC) 80 - 99 fl MCV 90 LAB MCH(LOINC) 27 - 33 pg MCH 29 LAB MCHC(LOINC) 32 - 36 X10 3 MCHC 32 LAB RDW/CV(LOINC) 12.0 - % 15.6 RDW/CV High 19.9 LAB PLATELET(LOINC) 150 - 450 x10EE3/UL PLATELET 352 LAB MPV(LOINC) 6.6 - 10.5 fl MPV 7.9 Result Comment: AUTOMATED DIFFERENTIAL LAB NEUT %(LOINC) 46.0 - 76.0 % NEUT % 62.7 LAB LYMPH %(LOINC) 20.0 - 45.0 % LYMPH % 21.7 LAB MONOS %(LOINC) 0.0 - 10.0 % MONOS % High 10.2 LAB EO %(LOINC) 0.0 - 7.0 % EO % 5.1 LAB BASO %(LOINC) 0.0 - 2.0 % BASO % 0.3 LAB Lymph #(LOINC) 0.80 - 2.80 x10EE3/U L Lymph # 1.30 LAB Neut #(LOINC) 1.50 - 7.10 x10EE3/U L Neut # 3.80 LAB Alcorn #(LOINC) 0.20 - 1.00 x10EE3/U L Alcorn # 0.60 LAB EO #(LOINC) 0.00 - 0.50 x10EE3/U L EO # 0.30 LAB Baso #(LOINC) 0.00 - 0.10 x10EE3/U L Baso # 0.00 LAB MANUAL DIFF(LOINC) MANUAL DIFF N/A LAB MORPHOLOGY(INC ) MORPHOLOGY N/A Result Comment: {CD] Performed By: #### [id number] #### [facility],[address] [place] [address] BMP WITH EGFR Collected: 12/23/2017 Status: F Source: [facility] 4:40 AM [facility] REPOSITORY TYPE CODE TESTS RESULT OUT OF RANGE REFERENCE UNITS LAB BMP with eGFR(LOINC) BMP with eGFR Result Comment: BASIC METABOLIC PANEL LAB SODIUM(LOINC) 136 - 145 mmol/l SODIUM 138 LAB POTASSIUM(LOINC) 3.5 - 5.1 mmol/L POTASSIUM 4.9 LAB CHLORIDE(LOINC) 98 - 107 mmol/L CHLORIDE 99 LAB CO2(LOINC) 21.0 - mmol/L 31.0 CO2 26.2 LAB GLUCOSE(LOINC) 74 - 106 mg/dl GLUCOSE Low 55 LAB BUN(LOINC) 6 - 20 mg/dl BUN High 62 LAB CREATININE(LOINC) 0.6 - 1.2 mg/dl High CREATININE 6.6 LAB CALCIUM(LOINC) 8.6 - mg/dl 10.2 CALCIUM Low 8.5 LAB ANION GAP(LOINC) 10 - 20 mmol/L ANION GAP 18 LAB AGE(LOINC) years AGE 57 LAB eGFR(LOINC) 60 - 999 ML/MINUTE eGFR Low 6 LAB eGFR(AA)(LOINC) 60 - 999 ML/MINUTE eGFR(AA) Low 8 Result Comment: ACCORDING TO THE NATIONAL KIDNEY DISEASE EDUCATION PROGRAM(NKDE), A NORMAL eGFR IS A VALUE GREATER THAN OR EQUAL TO 60 ML/MIN/1.73 SQ METERS. CHRONIC KIDNEY DISEASE: <60mL/MIN/1.73 SQ METERS KIDNEY FAILURE: <15mL/MIN/1.73 SQ METERS THIS TEST SHOULD ONLY BE USED FOR PATIENTS 18 YEARS OF AGE AND OLDER. Performed By: #### [id number] #### [facility],[address] [place], [place] [address] PROTHROMBIN TIME AND Collected: 12/23/2017 Status: F Source: [facility] INR 4:40 AM [facility] REPOSITORY TYPE CODE TESTS RESULT OUT OF REFERENCE UNITS RANGE LAB PROTHROMBIN TIME AND INR(LOINC) PROTHROMBIN TIME AND INR Result Comment: PROTHROMBIN TIME AND INR LAB PT-COUMADIN(LOINC) sec PT-COUMADIN 73.5 LAB INR(LOINC) 0.8 - 1.2 INR High Alert 6.9 Result Comment: { CALLED TO Ginna/[id number] { READ BACK BY [id number]/kaley { TEST REPEATED THE HEMOSIL THROMBOPLASTIN REAGENT USED IN THE PROTHROMBIN TIME TEST INTERACTS WITH THE DRUG CUBICIN (DAPTOMYCIN) AND WILL RESULT IN FALSELY ELEVATED PT / INR RESULTS INR INTERPRETATION INR INDICATION PREVENTION AND TREATMENT OF THROMBOEMBOLISM ASSOCIATED WITH: 2.0 - 3.0 ATRIAL FIBRILLATION, BIOPROSTHETIC HEART VALVES, PULMONARY EMBOLISM, VENOUS THROMBOSIS, SYSTEMIC EMBOLISM POST MYOCARDIAL INFARCTION 2.5 - 3.5 MECHANICAL HEART VALVES Performed By: #### [id number] #### [facility],[address] [place], [place] [address] PROGRESS Observed: 12/22/2017 Status: COMPLETED Source: [place] 2:59 PM [facility] REPOSITORY O ID: [id number] Author: Melvina Almaraz (Rn) Service: (none) Author Type: Registered Nurse Type: Progress Notes Filed: 12/23/2017 12:18 PM Note Text: PRIMARY CARE COORDINATION FOLLOW-UP NOTE Provider Action/FYI Patient identified by name and date of . YES Spoke to son, Melody and [facility] nurseEdie Summary: Discussed below with PCP TC to Meenakshi nurse at [facility], asked about patient's status States VS are good They took patient off of oxycodone because of confusion and put her on Tylenol ES but pt was asking for something stronger and it is time for dsg change so they only gave one oxycodone tablet. Tomorrow MD will be visiting patient and she will be having CBC and BMP drawn They are not checking pt's urine because she isn't having any UTI sx. Urine is concentrated so they are encouraging liquids and will watch pt. Concerns: TC from son, Melody, pt is in [facility] with MRSA infection and he noted the past few days pt has been twitching in her upper body. Also noting confusion and hallucinating about people coming to visit or men working under her room, but there is no basement. States he is worried about a UTI and they were going to check her urine. He would like PCC to check medication list to compare and make sure pt isn't missing any meds she is supposed to be taking [employer] Manager plan for next outreach: Will follow up at pt discharge planning Signature Melvina Almaraz RN December 22, 2017 PROTHROMBIN TIME AND Collected: 12/22/2017 Status: F Source: [facility] IN[facility] 5:42 AM [facility] REPOSITORY TYPE CODE TESTS RESULT OUT OF REFERENCE UNITS RANGE LAB PROTHROMBIN TIME AND INR(LOINC) PROTHROMBIN TIME AND INR Result Comment: PROTHROMBIN TIME AND INR LAB PT-COUMADIN(LOINC) sec PT-COUMADIN 61.3 LAB INR(LOINC) 0.8 - 1.2 INR High Alert 5.7 Result Comment: { CALLED TO rn/0808 { READ BACK BY [id number]/evgeny/kaley { TEST REPEATED THE HEMOSIL THROMBOPLASTIN REAGENT USED IN THE PROTHROMBIN TIME TEST INTERACTS WITH THE DRUG CUBICIN (DAPTOMYCIN) AND WILL RESULT IN FALSELY ELEVATED PT / INR RESULTS INR INTERPRETATION INR INDICATION PREVENTION AND TREATMENT OF THROMBOEMBOLISM ASSOCIATED WITH: 2.0 - 3.0 ATRIAL FIBRILLATION, BIOPROSTHETIC HEART VALVES, PULMONARY EMBOLISM, VENOUS THROMBOSIS, SYSTEMIC EMBOLISM POST MYOCARDIAL INFARCTION 2.5 - 3.5 MECHANICAL HEART VALVES Performed By: #### [id number] #### [facility],[address] [place] [address] NATHANAEL Observed: 12/22/2017 Status: COMPLETED Source: [place] 12:00 AM [facility] REPOSITORY Patient Outreach (FAMPWS) VICKI HERNANDEZ ([id number]) 1960 F Date Time Provider Department 12/22/17 MELVINA ALMARAZ (RN) FAMPWS During your visit today, we recorded the following information about you: Melvina Almaraz (Rn) 12/23/2017 12:18 PM Signed PRIMARY CARE COORDINATION FOLLOW-UP NOTE Provider Action/FYI Patient identified by name and date of . YES Spoke to Melody blair and [facility] nurseEdie Summary: Discussed below with PCP TC to Meenakshi nurse at [facility], asked about patient's status States VS are good They took patient off of oxycodone because of confusion and put her on Tylenol ES but pt was asking for something stronger and it is time for dsg change so they only gave one oxycodone tablet. Tomorrow MD will be visiting patient and she will be having CBC and BMP drawn They are not checking pt's urine because she isn't having any UTI sx. Urine is concentrated so they are encouraging liquids and will watch pt. Concerns: TC from Melody blair, pt is in [facility] with MRSA infection and he noted the past few days pt has been twitching in her upper body. Also noting confusion and hallucinating about people coming to visit or men working under her room, but there is no basement. States he is worried about a UTI and they were going to check her urine. He would like PCC to check medication list to compare and make sure pt isn't missing any meds she is supposed to be taking [employer] plan for next outreach: Will follow up at pt discharge planning Signature Melvina Almaraz RN December 22, 2017 Melvina Almaraz (Rn) 12/23/2017 1:55 PM Addendum TC from Melody blair, states pt was twitching so bad that she was dropping the phone this morning. Informed of findings with medication lists per [facility] and [facility]. Staff at [facility] feel it may be part the oxycodone. PCP felt yesterday she probably had some electrolyte imbalance, which they found with BMP which is why pt is getting IV Also informed of other labs they are doing today and tomorrow and explained reasons and elevated INR probably due to ATB and pt given Vit K. Son verbalized understanding and thanked PCP/PCC for keep up with pt while in SNF Informed PCC will check with [facility] nurse tomorrow. TC to Hawa, nurse at [facility]. Pt had CBC, BMP and INR this AM INR was 6.9 and pt was given 2.5 mg Vit K (They feel INR increase is due to antibiotics) MD was worried about pt going into [facility] so she is receiving NS at 100 ml/hr. Pt will have BMP repeated tomorrow AM They are drawing a Dig level and getting a U/A with micro today They have held her oxycodone on hold except for before dsg changes. Giving Tylenol ES and pt is getting same relief but not having the sedative effect with the oxycodone. Melvina Almaraz RN Received medication list from [facility] from pt's son. Only routine meds from PCP list pt isn't taking is Byetta and glypizide Pt is on Ativan PRN for anxiety and Oxycodone for pain. On cefriaxone IV Vancomycin IV Flagyl Nystatin Powder Also on dietary supplements and has indwelling catheter Melvina Almaraz, Rajesh Galdamez 12/23/2017 2:48 PM Signed Thank you for update Allergies As of Date: 12/22/2017 Noted Allergy Reaction CODEINE 11/19/2010 14 - Other: See Comments Comments: Itching, vomitting LATEX 11/19/2010 14 - Other: See Comments Comments: Itching,hives,dyspnea PHENOBARBITAL 11/19/2010 14 - Other: See Comments Comments: Nausea, itching TALWIN (PENTAZOCINE LACTATE) 11/19/2010 1 - Mental Status Change Comments: Hallucinations TREE NUT 02/07/2015 10 - Anaphylaxis Date Reviewed: 06/08/2017 Reviewed by: Karena Shaikh Cma - Fully Assessed Reason for Visit: Bed Control Specialist - Patient Initiated [[id number]] Prescriptions as of 12/22/2017 Sig: GABAPENTIN 400 MG CAPSULE Take 1 capsule by mouth four * WARFARIN 1 MG TABLET 10mg MWF and 11mg other days* WARFARIN 10 MG TABLET 10mg MWF and 11mg other days * METFORMIN 500 MG TABLET TAKE TWO TABLETS BY MOUTH TWI* DILTIAZEM SR 120 MG 24 HR CAP Take 1 capsule by mouth once * LISINOPRIL 10 MG TABLET Take 1 tablet by mouth once d* PEN NEEDLE, DIABETIC 29 GAUGE* Use one needle per dose. 5 p* INSULIN SYRINGE-NEEDLE U-100 * USE ONE SYRINGE FOR EACH INSU* INSULIN LISPRO (U-100) 100 UN* Inject 14 Units subcutaneousl* CITALOPRAM 40 MG TABLET Take 1 tablet by mouth once d* LANTUS SOLOSTAR U-100 INSULIN* Inject 46 units subcutaneousl* WARFARIN 2 MG TABLET 10mg and and 11 * BUDESONIDE-FORMOTEROL HFA 160* Inhale 2 Puffs as instructed * COMPOUNDED PRESCRIPTION Oxygen for home @ 2L per BIPA* TORSEMIDE 20 MG TABLET TAKE ONE TABLET BY MOUTH TWIC* NADOLOL 40 MG TABLET TAKE THREE TABLETS BY MOUTH D* TORSEMIDE 20 MG TABLET Take 1 tablet by mouth twice * ALBUTEROL SULFATE 1.25 MG/3 M* USE ONE vial in NEBULIZER KRIS* DIGOXIN 250 MCG TABLET Take 1 tablet by mouth once d* POLYETHYLENE GLYCOL 3350 17 G* Take 1 Packet by mouth as nee* CPAP ACETAMINOPHEN ER 650 MG TABLE* Take 650 mg by mouth every 8 * EXENATIDE 5 MCG/DOSE (250 MCG* INJECT 5 mcg SUBCUTANEOUSLY T* IPRATROPIUM-ALBUTEROL 0.5 MG-* Inhale 3 mL as instructed kris* ALBUTEROL SULFATE HFA 90 MCG/* 2 puffs every 4-6 hrs PRN SOB* GLIPIZIDE 10 MG TABLET Take 1 tablet by mouth twice * Problem List As Of Date 12/22/2017 Noted Resolved Diabetes (HCC) [E11.9] INVALID FOR* More... Atrial fibrillation (HCC) [I48.91] INVALID FOR* Priority: A More... Lymphedema [I89.0] INVALID FOR* Priority: B More... Heart failure, systolic and diastolic, acute on*INVALID FOR*12/31/2014 More... Obesity, morbid, BMI 50 or higher (HCC) [E66.01]INVALID FOR* More... Hypertension [I10] INVALID FOR* More... HUNTER (obstructive sleep apnea) [G47.33] INVALID FOR* More... Pulmonary HTN (HCC) [I27.20] INVALID FOR* More... Atrial fibrillation with RVR (HCC) [I48.91] INVALID FOR*09/23/2016 More... Heart failure, diastolic, acute (HCC) [I50.31] INVALID FOR* More... Counseling and coordination of care [Z71.89] INVALID FOR*04/12/2015 More... Monoclonal gammopathy [D47.2] INVALID FOR* Empty sella turcica (HCC) [E23.6] INVALID FOR* More... Uncontrolled type 2 diabetes mellitus without c*INVALID FOR*09/23/2016 Encounter Status:Closed by MELVINA ALMARAZ on 12/23/17 12 LEAD ELECTROCARDIOGRAM Observed: 12/17/2017 Status: F Source: [place] 1:15 PM [facility] REPOSITORY [facility] Cardiovascular Services [address] [place] [address] 12 Lead EKG 12/08/17 0512 MR#: [id number] Acct: [id number] Name: VICKI HERNANDEZ Rep #: [id number] : 1960 57 From: Oral Suazo MD Attending Dr: Arabella Fontana MD Status: DIS IN Ordering Dr: Arnel Mcintosh MD Date: 12/08/17 Location: [facility]3 Sex: F C Admitted: 12/06/17 Test Reason : AM EKG Blood Pressure : / mmHG Vent. Rate : 078 BPM Atrial Rate : 468 BPM P-R Int : 000 ms QRS Dur : 096 ms QT Int : 414 ms P-R-T Axes : 000 054 126 degrees QTc Int : 471 ms Atrial fibrillation Low voltage QRS Septal infarct , age undetermined ST AND T wave abnormality, consider lateral ischemia Abnormal ECG When compared with ECG of 30-DEC-2016 10:57, No significant change was found Confirmed by ORAL SUAZO MD ([id number]), assignment desk editor KERRY HERNANDEZ ([id number]) on 12/17/2017 1:15:18 PM Referred By: BRITTANY Confirmed By:ORAL SUAZO MD 12/17/17 1315 Date Oral Suazo MD CC: Arabella Fontana MD; Arnel Mcintosh MD; Rajesh Holman MD Signed PROGRESS Observed: 12/15/2017 Status: COMPLETED Source: [place] 2:50 PM [facility] REPOSITORY HNO ID: [id number] Author: Melvina (Evgeny) Sung Service: (none) Author Type: Registered Nurse Type: Progress Notes Filed: 12/15/2017 3:00 PM Note Text: PRIMARY CARE COORDINATION FOLLOW-UP NOTE Provider Action/FYI FYI Patient identified by name and date of . YES Spoke to nurse Joelle at [facility] Summary: Asked nurse to please call PCC when pt is being discharged and fax discharge summary and medication list. Nurse states patient's wounds on legs are extensive, she has wound vacs on and is getting IV antibiotics. [employer] Manager plan for next outreach: Will follow up at time of discharge Signature Melvina Almaraz RN December 15, 2017 PROTHROMBIN TIME AND Collected: 12/15/2017 Status: F Source: [facility] IN[facility] 5:30 AM [facility] REPOSITORY TYPE CODE TESTS RESULT OUT OF REFERENCE UNITS RANGE LAB PROTHROMBIN TIME AND INR(LOINC) PROTHROMBIN TIME AND INR Result Comment: PROTHROMBIN TIME AND INR LAB PT-COUMADIN(LOINC) sec PT-COUMADIN 33.3 LAB INR(LOINC) 0.8 - 1.2 INR High 3.0 Result Comment: THE HEMOSIL THROMBOPLASTIN REAGENT USED IN THE PROTHROMBIN TIME TEST INTERACTS WITH THE DRUG CUBICIN (DAPTOMYCIN) AND WILL RESULT IN FALSELY ELEVATED PT / INR RESULTS INR INTERPRETATION INR INDICATION PREVENTION AND TREATMENT OF THROMBOEMBOLISM ASSOCIATED WITH: 2.0 - 3.0 ATRIAL FIBRILLATION, BIOPROSTHETIC HEART VALVES, PULMONARY EMBOLISM, VENOUS THROMBOSIS, SYSTEMIC EMBOLISM POST MYOCARDIAL INFARCTION 2.5 - 3.5 MECHANICAL HEART VALVES Performed By: #### [id number] #### [facility],[address] [place] [address] CBC Collected: 12/15/2017 Status: F Source: [facility] 5:30 AM [facility] REPOSITORY TYPE CODE TESTS RESULT OUT OF RANGE REFERENCE UNITS LAB CBC(LOINC) CBC Result Comment: CBC-COMPLETE BLOOD COUNT LAB WBC(LOINC) 4.5 - 10.8 x 10EE3/UL WBC 7.5 LAB RBC(LOINC) 4.10 - x 10EE6/UL 5.30 RBC Low 2.99 LAB HEMOGLOBIN(LOINC 12.0 - g/dl ) 16.0 Low HEMOGLOBIN 8.7 LAB HEMATOCRIT(LOINC 34.0 - % ) 46.0 Low HEMATOCRIT 26.5 LAB MCV(LOINC) 80 - 99 fl MCV 89 LAB MCH(LOINC) 27 - 33 pg MCH 29 LAB MCHC(LOINC) 32 - 36 X10 3 MCHC 33 LAB RDW/CV(LOINC) 12.0 - % 15.6 RDW/CV High 19.2 LAB PLATELET(LOINC) 150 - 450 x10EE3/UL PLATELET 322 LAB MPV(LOINC) 6.6 - 10.5 fl MPV 7.7 Result Comment: AUTOMATED DIFFERENTIAL LAB NEUT %(LOINC) 46.0 - 76.0 % NEUT % 65.9 LAB LYMPH %(LOINC) 20.0 - 45.0 % LYMPH % 20.1 LAB MONOS %(LOINC) 0.0 - 10.0 % MONOS % 8.8 LAB EO %(LOINC) 0.0 - 7.0 % EO % 4.9 LAB BASO %(LOINC) 0.0 - 2.0 % BASO % 0.3 LAB Lymph #(LOINC) 0.80 - 2.80 x10EE3/U L Lymph # 1.50 LAB Neut #(LOINC) 1.50 - 7.10 x10EE3/U L Neut # 4.90 LAB Alcorn #(LOINC) 0.20 - 1.00 x10EE3/U L Alcorn # 0.70 LAB EO #(LOINC) 0.00 - 0.50 x10EE3/U L EO # 0.40 LAB Baso #(LOINC) 0.00 - 0.10 x10EE3/U L Baso # 0.00 LAB MANUAL DIFF(LOINC) MANUAL DIFF N/A LAB MORPHOLOGY(LOINC ) MORPHOLOGY N/A Result Comment: {CD] Performed By: #### [id number] #### [facility],[address] [place] [address] CMP WITH EGFR Collected: 12/15/2017 Status: F Source: [facility] 5:30 AM [facility] REPOSITORY TYPE CODE TESTS RESULT OUT OF RANGE REFERENCE UNITS LAB CMP with eGFR(LOINC) CMP with eGFR Result Comment: COMPREHENSIVE METABOLIC PANEL LAB SODIUM(LOINC) 136 - 145 mmol/l SODIUM 138 LAB POTASSIUM(LOINC) 3.5 - 5.1 mmol/L POTASSIUM 4.2 LAB CHLORIDE(LOINC) 98 - 107 mmol/L CHLORIDE Low 96 LAB CO2(LOINC) 21.0 - mmol/L 31.0 CO2 High 36.4 LAB GLUCOSE(LOINC) 74 - 106 mg/dl GLUCOSE High 134 LAB BUN(LOINC) 6 - 20 mg/dl BUN High 32 LAB CREATININE(LOINC) 0.6 - 1.2 mg/dl CREATININE 0.8 LAB AST/SGOT(LOINC) 13 - 39 U/L AST/SGOT 14 LAB ALK PHOS(LOINC) 38 - 126 U/L ALK PHOS 87 LAB CALCIUM(LOINC) 8.6 - mg/dl 10.2 CALCIUM 8.7 LAB TOTAL 6.4 - 8.3 g/dl PROTEIN(LOINC) TOTAL PROTEIN 7.0 LAB ALBUMIN(LOINC) 3.4 - 4.8 g/dL ALBUMIN Low 2.6 LAB GLOBULIN(LOINC) 1.5 - 3.8 G/DL GLOBULIN High 4.4 LAB A/G RATIO(LOINC) 0.9 - 1.6 A/G Low RATIO 0.6 LAB TOTAL BILI(LOINC) 0.0 - 1.5 mg/dl TOTAL BILI 0.4 LAB B/C RATIO(LOINC) 0 - 30 ratio B/C High RATIO 40 LAB ALT/SGPT(LOINC) 8 - 35 U/L ALT/SGPT 9 LAB ANION GAP(LOINC) 10 - 20 mmol/L ANION GAP 10 LAB AGE(LOINC) years AGE 57 LAB eGFR(LOINC) 60 - 999 ML/MINUTE eGFR >60 LAB eGFR(AA)(LOINC) 60 - 999 ML/MINUTE eGFR(AA) >60 Result Comment: ACCORDING TO THE NATIONAL KIDNEY DISEASE EDUCATION PROGRAM(NKDE), A NORMAL eGFR IS A VALUE GREATER THAN OR EQUAL TO 60 ML/MIN/1.73 SQ METERS. CHRONIC KIDNEY DISEASE: <60mL/MIN/1.73 SQ METERS KIDNEY FAILURE: <15mL/MIN/1.73 SQ METERS THIS TEST SHOULD ONLY BE USED FOR PATIENTS 18 YEARS OF AGE AND OLDER. Performed By: #### [id number] #### [facility],[address] [place] [address] VANCOMYCIN TROUGH Collected: 12/15/2017 Status: F [facility] REPOSITORY TYPE CODE TESTS RESULT OUT OF RANGE REFERENCE UNITS LAB VANCOMYCIN, 10.0 - 15.0 ug/mL TROUGH(LOIN C) 10.5 VANCOMYCIN,T ROUGH Performed By: #### [id number] #### [facility],[address] [place], [place] [id number] CNPTOUTREACH Observed: 12/15/2017 Status: COMPLETED Source: [place] 12:00 AM [facility] REPOSITORY Patient Outreach (FAMPWS) VICKI HERNANDEZ ([id number]) 1960 F Date Time Provider Department 12/15/17 [facility]EVGENY[facility] your visit today, we recorded the following information about you: Melvina Almaraz RN 12/15/2017 3:00 PM Signed PRIMARY CARE COORDINATION FOLLOW-UP NOTE Provider Action/FYI FYI Patient identified by name and date of . YES Spoke to nurse Joelle at [facility] Summary: Asked nurse to please call PCC when pt is being discharged and fax discharge summary and medication list. Nurse states patient's wounds on legs are extensive, she has wound vacs on and is getting IV antibiotics. [employer] Manager plan for next outreach: Will follow up at time of discharge Signature Melvina Almaraz RN December 15, 2017 Allergies As of Date: 12/15/2017 Noted Allergy Reaction CODEINE 11/19/2010 14 - Other: See Comments Comments: Itching, vomitting LATEX 11/19/2010 14 - Other: See Comments Comments: Itching,hives,dyspnea PHENOBARBITAL 11/19/2010 14 - Other: See Comments Comments: Nausea, itching TALWIN (PENTAZOCINE LACTATE) 11/19/2010 1 - Mental Status Change Comments: Hallucinations TREE NUT 02/07/2015 10 - Anaphylaxis Date Reviewed: 06/08/2017 Reviewed by: Karena Shaikh Cadd Drafter - Fully Assessed Reason for Visit: Bed Control Specialist Hospital Follow Up [0345] Prescriptions as of 12/15/2017 Sig: GABAPENTIN 400 MG CAPSULE Take 1 capsule by mouth four * WARFARIN 1 MG TABLET 10mg MWF and 11mg other days* WARFARIN 10 MG TABLET 10mg MWF and 11mg other days * METFORMIN 500 MG TABLET TAKE TWO TABLETS BY MOUTH TWI* DILTIAZEM SR 120 MG 24 HR CAP Take 1 capsule by mouth once * LISINOPRIL 10 MG TABLET Take 1 tablet by mouth once d* PEN NEEDLE, DIABETIC 29 GAUGE* Use one needle per dose. 5 p* INSULIN SYRINGE-NEEDLE U-100 * USE ONE SYRINGE FOR EACH INSU* INSULIN LISPRO (U-100) 100 UN* Inject 14 Units subcutaneousl* CITALOPRAM 40 MG TABLET Take 1 tablet by mouth once d* EXENATIDE 5 MCG/DOSE (250 MCG* INJECT 5 mcg SUBCUTANEOUSLY T* LANTUS SOLOSTAR U-100 INSULIN* Inject 46 units subcutaneousl* WARFARIN 2 MG TABLET 10mg and and * IPRATROPIUM-ALBUTEROL 0.5 MG-* Inhale 3 mL as instructed kris* ALBUTEROL SULFATE HFA 90 MCG/* 2 puffs every 4-6 hrs PRN SOB* BUDESONIDE-FORMOTEROL HFA 160* Inhale 2 Puffs as instructed * COMPOUNDED PRESCRIPTION Oxygen for home @ 2L per BIPA* TORSEMIDE 20 MG TABLET TAKE ONE TABLET BY MOUTH TWIC* NADOLOL 40 MG TABLET TAKE THREE TABLETS BY MOUTH D* GLIPIZIDE 10 MG TABLET Take 1 tablet by mouth twice * TORSEMIDE 20 MG TABLET Take 1 tablet by mouth twice * ALBUTEROL SULFATE 1.25 MG/3 M* USE ONE vial in NEBULIZER KRIS* DIGOXIN 250 MCG TABLET Take 1 tablet by mouth once d* POLYETHYLENE GLYCOL 3350 17 G* Take 1 Packet by mouth as nee* CPAP ACETAMINOPHEN ER 650 MG TABLE* Take 650 mg by mouth every 8 * Problem List As Of Date 12/15/2017 Noted Resolved Diabetes (HCC) [E11.9] INVALID FOR* More... Atrial fibrillation (HCC) [I48.91] INVALID FOR* Priority: A More... Lymphedema [I89.0] INVALID FOR* Priority: B More... Heart failure, systolic and diastolic, acute on*INVALID FOR*12/31/2014 More... Obesity, morbid, BMI 50 or higher (HCC) [E66.01]INVALID FOR* More... Hypertension [I10] INVALID FOR* More... HUNTER (obstructive sleep apnea) [G47.33] INVALID FOR* More... Pulmonary HTN (HCC) [I27.20] INVALID FOR* More... Atrial fibrillation with RVR ([facility]) [I48.91] INVALID FOR*09/23/2016 More... Heart failure, diastolic, acute ([facility]) [I50.31] INVALID FOR* More... Counseling and coordination of care [Z71.89] INVALID FOR*04/12/2015 More... Monoclonal gammopathy [D47.2] INVALID FOR* Empty sella turcica ([facility]) [E23.6] INVALID FOR* More... Uncontrolled type 2 diabetes mellitus without c*INVALID FOR*09/23/2016 Encounter Status:Closed by MELVINA ALMARAZ on 12/15/17 BEDSIDE GLUCOSE Collected: 12/14/2017 Status: F Source: [place] 4:59 PM [facility] REPOSITORY TYPE CODE TESTS RESULT OUT OF REFERENCE UNITS RANGE LAB L501.080 70-110 mg/dL High BEDSIDE GLU 125 Result Comment: MANAGEMENT OF PATIENT CARE PER NURSING PROTOCOL Performed By: #### L501.080 #### [facility] Laboratory Point of Care [address] [place] [address] DISCHARGE SUMMARY Observed: 12/14/2017 Status: F Source: [place] 3:54 PM [facility] REPOSITORY [facility] Medical Records Department [address] [place] [address] Discharge Summary 12/14/17 1040 MR#: [id number] Acct: [id number] Name: VICKI HERNANDEZ Rep #: [id number] : 1960 57 From: Arabella Fontana MD PCP: Rajesh Holman MD Status: ADM IN Location: NE3 [id number] Discharge Date and Diagnosis Date of Admission: 12/06/17 Date of Discharge: 12/14/17 - Primary Discharge Diagnosis 1. Multiple bilateral nonhealing diabetic MSSA infected leg ulcers, s/p extensive surgery with incision and drainage 2. s/p wound VAC insertion to the right and left posterior leg wounds/ulcers 3. Acute metabolic encephalopathy 4. Acute on chronic anemia - Secondary Discharge Diagnosis Chronic Problems (Last Updated 12/07/17 @ 09:05 by Thomas Carrasco MD) Pulmonary hypertension (Chronic) Morbid obesity (Chronic) Congestive heart failure (Chronic) Chronic atrial fibrillation (Chronic) Type 2 diabetes mellitus (Chronic) Hypertension (Chronic) Hospital Course and Treatment Imaging Results: Clinical Impression(s) from Imaging Studies Chest X-Ray 12/06/17 15:09 IMPRESSION: Cardiomegaly. Mild degree of CHF. Electronically Signed: Oh Wellington MD at 15:29 EDT Tel [phone], Service support , Lower Extremity CT 12/08/17 08:33 IMPRESSION: Diffuse left lower extremity edema worse along the medial aspect of the left thigh extending down to the level of the knee joint with the ulceration along the posterior aspect of the knee joint. Phleboliths are seen within the venous structures as well as varicosities. Vascular calcification. Electronically Signed: Oh Wellington MD at 10:20 EDT Tel [phone], Service support , Lower Extremity CT 12/08/17 09:00 IMPRESSION: Diffuse subcutaneous edema and skin thickening along the medial aspect of the right buttock down to the mid leg. Venous varicosities as well as multiple soft tissue calcifications. Electronically Signed: Oh Wellington MD at 10:31 EDT Tel [phone], Service support , Chest X-Ray 12/08/17 12:45 IMPRESSION: Right sided PICC line appears properly positioned. Findings otherwise stable with cardiomegaly and pulmonary vascular congestion. at 1354 Reported and signed by: Kerry Bose MD Electronically Signed: Kerry Bose MD at 13:53 EDT Tel , Service support , Consultations 12/07/17 06:47 Consult: Onc/Wound/diesel inspector Routine Comment: Reason for Consult:: legs Operations: None Procedures: - - Extensive I AND D of nonhealing infected MRA ulcer abscesses Summary of Care Provided: 57 years old female past medical history of type 2 diabetes, super morbid obesity redness was admitted with swelling of the right lower extremity, and found to have multiple bilateral nonhealing MSSA infected diabetic ulcers/wounds on the posterior aspect of the bilateral lower extremities and right lower extremity cellulitis status post extensive surgery. 1. Multiple bilateral nonhealing diabetic MSSA infected leg ulcers/wounds with secondary bacteria s/p extensive surgery with incision and drainage s/p wound VAC insertion to the right and left posterior leg wounds/ulcers. Wound culture revealed Proteus mirabilis, MRSA and Streptococcus agalactiae. Blood cultures showed no growth in 48 hours. Discharged on IV ceftriaxone, vancomycin, oral Flagyl, to follow up with Dr. Martinez in the wound center. ID was consulted in this admission. 2. Acute metabolic encephalopathy related to medications, resolved 3. Acute on chronic anemia, deficiency anemia, from blood loss during surgery, started on oral iron 4. Type 2 diabetes mellitus, blood sugar stable 5. Hypertension, controlled, on lisinopril, Corgard and Cardizem. 6. Chronic A. fib, controlled, on digoxin, Cardizem, Corgard for rate control, on anticoagulation with Coumadin 7. Chronic diastolic CHF, stable Discharge Diet: Low fat/ Low Cholesterol, 2000 Calorie Control Diet, 2000 mg Sodium Diet, Carb Control Diet Discharge Activity: Return to Normal Activity Weight Bearing Status: Weight bearing as tolerated Home Medications: Medications to take at Discharge Citalopram [Celexa] 40 mg PO DAILY 03/20/15 Digoxin [Digitek] 250 mcg PO DAILY 03/20/15 Exenatide [Byetta (BKC)] 5 mcg SC BIDCM 03/20/15 Lisinopril [Zestril] 10 mg PO DAILY 03/20/15 Metformin HCl [Glucophage] 1,000 mg PO BIDCM 03/20/15 Nadolol [Corgard (Beta Katie)] 120 mg PO DAILY 03/20/15 Torsemide [Demadex] 20 mg PO BID 03/20/15 Gabapentin [Neurontin] 400 mg PO 4X/DAY 12/30/16 Insulin Aspart [Novolog Flexpen] 14 units SC TIDCM 12/30/16 Insulin Glargine,Hum.rec.anlog [Lantus] 46 unit SQ QHS 12/30/16 Warfarin [Coumadin] 10 mg PO TUTHSA 12/30/16 Warfarin [Coumadin] 11 mg PO SUMOWEFR 12/30/16 albuterol sulfate HFA 90 mcg/actuation aerosol inhaler 2 puff INHALATION Q4H PRN g 08/26/17 fluticasone 50 mcg/actuation nasal spray,suspension 2 spray INTRANASAL DAILY 08/26/17 Budesonide/Formoterol 160/4.5 [Symbicort 160/4.5 Mcg Inhaler (SP)] 2 inh INHALATION Q12H 12/06/17 Diltiazem HCl [Diltiazem 24Hr ER] 120 mg PO DAILY 12/06/17 Bisacodyl [Dulcolax] 5 mg PO DAILY tablet 12/14/17 Ceftriaxone 2 gm IV Q24 #10 vial 12/14/17 Docusate Sodium [Colace] 100 mg PO BID capsule 12/14/17 Ferrous Sulfate 325 mg PO BIDCM tablet 12/14/17 Glucerna Shake 120 ml PO TIDCM liquid 12/14/17 Lorazepam [Ativan] 1 mg PO TID PRN PRN #10 tab 12/14/17 Metronidazole [Flagyl] 500 mg PO TID #30 tablet 12/14/17 Nutritional Supplement [Josafat - ORANGE FLAVOR] 1 packet PO BIDCM packet 12/14/17 Nystatin Powder [Mycostatin Powder] 1 applic TOPICAL TID bottle 12/14/17 Oxycodone [Oxyir] 5 - 10 mg PO Q6H PRN PRN #10 tab 12/14/17 Vancomycin 1,500 mg IV Q12H #10 vial 12/14/17 Following Prescrptions Were Given to Patient: Oxycodone [Oxyir] 5 - 10 mg PO Q6H PRN PRN #10 tab PRN Reason: Severe Pain (6-06/01) Lorazepam [Ativan] 1 mg PO TID PRN PRN #10 tab PRN Reason: Anxiety Primary Care Physician: Rajesh Holman MD [Primary Care Provider] - Please follow up with your Primary Care Physician in: within 2 weeks Please Follow Up With: Alejo Martinez MD When: within 2 weeks in wound center Disposition: [facility] facility Minutes spent on discharge:: 35 Patient Condition:: Stable Medical Necessity - Tobacco Use Smoking Status: Former smoker Meaningful Use Info Meaningful Use Diagnoses (Choose all that apply): None applicable Code Visit Inpatient E AND M: 49423 Disch Hosp 12/14/17 1554 <Electronically signed by Arabella Fontana MD> Date Arabella Fontana MD Cosigner Signature (if applicable): Date CC: Arabella Fontana MD; Rajesh Holman MD Signed BEDSIDE GLUCOSE Collected: 12/14/2017 Status: F Source: [place] 11:32 AM [facility] REPOSITORY TYPE CODE TESTS RESULT OUT OF REFERENCE UNITS RANGE LAB L501.080 70-110 mg/dL High BEDSIDE GLU 184 Result Comment: MANAGEMENT OF PATIENT CARE PER NURSING PROTOCOL Performed By: #### L501.080 #### [facility] Point of Care [address] [place] [address] CONSULTATION Observed: 12/14/2017 Status: F Source: [place] 10:48 AM [facility] REPOSITORY [facility] Medical Records Department [address] [place] [address] Consultation 12/14/17 1044 MR#: [id number] Acct: [id number] Name: VICKI HERNANDEZ Rep #: [id number] : 1960 57 From: Boy Haines MD PCP: Rajesh Holman MD Status: ADM IN Y Location: MS3 [id number] Problem List (1) Abscess of left lower extremity Status: Acute Comment: nonhealing infected MRSA diabetic ulcer abscess left posterior leg Reason for Consult: leg abscess Consulted by: Dr. Fontana History of Present Illness: The patient is a 57 year old F with DM who presented 12/06 with acute onset BLE blisters, redness, severe pain. Sx started after scrubbing her legs in the shower. Developed chills with her sx. Bloody drainage developed. Came to ED, started on broad spectrum abx. Taken to OR 12/[address] Martinez and extensive fat necrosis was debrided. Now feeling better, no fever, no n/v/d, picc in place. D/c planned to ECF. Full ROS performed and neg except as noted above. - Medical History Past Medical History (Chronic Problems): Chronic Problems (Last Updated 12/07/17 @ 09:05 by Thomas Carrasco MD) Pulmonary hypertension (Chronic) Morbid obesity (Chronic) Congestive heart failure (Chronic) Chronic atrial fibrillation (Chronic) Type 2 diabetes mellitus (Chronic) Hypertension (Chronic) Allergies/Adverse Reactions: Allergies latex Allergy (Verified 03/26/15 11:04) Itching pentazocine lactate [From Talwin] Allergy (Verified 03/26/15 11:04) Itching phenobarbital Allergy (Verified 03/26/15 11:04) Itching tree nut Allergy (Verified 03/26/15 11:04) Anaphylaxis codeine Adverse Reaction (Verified 03/26/15 11:04) Upset Stomach Home Medications: Ambulatory Orders Medication Instructions Recorded Citalopram [Celexa] 40 mg PO DAILY 03/20/15 - Social History SMOKING STATUS:: Former smoker Vital Signs Temp Pulse Resp BP Pulse Ox 97.4 F L 82 18 112/55 L 96 12/14/17 08:19 12/14/17 08:19 12/14/17 08:19 12/14/17 08:19 12/14/17 08:19 Oxygen Flow Rate (L/min) 2 Oxygen Delivery Method Nasal Cannula Weight: 189 kg Body Mass Index (BMI) 67.2 Microbiology Past 72 Hours 12/09/17 Unknown Gram Stain - Final Tissue - Leg, Right Wound Culture - Final Laboratory Tests Past 24 Hrs PT 28.2 H INR 2.6 - Other Studies Radiology: [] reviewed Other Studies: [] Route of nutrition/ use of supplements: [] Nutritional Intake: [] IV Site: [] Dos Santos Catheter: [] - Physical Exam General: Alert, Oriented x3, Cooperative, No apparent distress HEENT: Atraumatic, PERRLA, EOMI Neck: Supple, No Nodes Lungs: Clear to auscultation, Normal air movement Cardiovascular: Regular rate, Regular Rhythm Abdomen: Soft, Non Tender, Non-Distended, Obese Extremities: Edema Skin: Ulcer/ Wound - BLE legs wrapped, reviewed photos IV Site: PICC, without redness Musculoskeletal: No Tenderness to Palpation of Joints or Extremities - Assessment/Plan Antibiotics: [] Assessment/Plan: [] BLE abscess with necrosis - s/p OR 12/[address] Martinez, cxs with MRSA, MSSA, proteus, corynebacterium, GBS, and anaerobes. Ok for d/c to ECF on 10 more days of iv vanc, ceftriaxone, and po flagyl. Weekly bmp, cbc, and vanc trough while on iv abx. Thank you, d/w Dr. Fontana and case specialist. Rx for labs written. 12/14/17 1048 <Electronically signed by Boy Haines MD> Date Boy Haines MD Cosigner Signature (if applicable): Date CC: Alejo Martinez MD; Boy Haines MD; Rajesh Holman MD Signed TRANSFER TO [facility] Observed: 12/14/2017 Status: F Source: [facility] 10:39 [facility] REPOSITORY [facility] Medical Records Department [address] [place] [address] Transfer to [facility] MR#: [id number] Acct: [id number] Name: VICKI HERNANDEZ Rep #: [id number] : 1960 57 From: Arabella Fontana MD PCP: Rajesh Holman MD Status: ADM IN VICKI HERNANDEZ (Patient) (Health Ins. Claim No.) (Day of Discharge to Facility) Certification of patient admission REQUIRED AT TIME OF ADMISSION. I CERTIFY THAT POST-HOSPITAL ECF SERVICES ARE REQUIRED TO BE GIVEN ON AN IN-PATIENT BASIS BECAUSE OF THE ABOVE NAMED PATIENT'S NEED FOR CHCF CARE ON A CONTINUING BASIS FOR THE CONDITION(S) FOR WHICH HE/SHE WAS RECEIVING IN-PATIENT HOSPITAL SERVICES PRIOR TO HIS/HER TRANSFER TO THE [facility]. 12/14/17 1038 <Electronically signed by Arabella Fontana MD> Date Arabella Fontana MD - Diet 12/09/17 12:27 Diet: 2000 calories, Carbohydrate Controlled, cardiac, low sodium diet Is pt able to select menu?: Yes - Routine Orders/Code Status O2 Liters per Minute: 2L O2 Frequency: Continuous Keep PO Greater than or Equal to (%): 94 - encourage use of incentive spirometer, wean off for SpO2>94% Routine Lab Work: CBC - within 1 week, BMP - within 1 week, INR - daily Code Status: Full Code - Wound(s) left great toe Wound Type: Abrasion Dressing Change: Dry Sterile Dressing right lower abd in skin fold Wound Type: OPEN AREAS left inner ankle Wound Type: Neuropathic/Diabetic Foot Ulcer left outer ankle Wound Type: Neuropathic/Diabetic Foot Ulcer back of left leg calf area Wound Type: Neuropathic/Diabetic Foot Ulcer right back of the pts calf area Wound Type: Neuropathic/Diabetic Foot Ulcer right outer ankle area Wound Type: Neuropathic/Diabetic Foot Ulcer right fa Wound Type: Abrasion left anteromedial ankle Wound Type: open surgical wound s/p I AND D Dressing Change: AntiMicrobial (Aquacel AG, etc) left posterior lower leg Wound Type: open wound s/p I AND D Dressing Change: AntiMicrobial (Aquacel AG, etc) right posterior lower leg Wound Type: open surgical wound s/pI AND D Dressing Change: AntiMicrobial (Aquacel AG, etc) right posterior thigh Wound Type: open surgical wound s/p I AND D Dressing Change: AntiMicrobial (Aquacel AG, etc) right lateral ankle Wound Type: open surgical wound s/p I AND D Dressing Change: AntiMicrobial (Aquacel AG, etc) - Therapies Weight Bearing: Weight bearing as tolerated Extremity Affected:: Bilateral Lower Physical Therapy: Eval and Treat Occupational Therapy: Eval and Treat - Allergies/Procedures Done in Hospital Allergies/Adverse Reactions: Allergies latex Allergy (Verified 03/26/15 11:04) Itching pentazocine lactate [From Talwin] Allergy (Verified 03/26/15 11:04) Itching phenobarbital Allergy (Verified 03/26/15 11:04) Itching tree nut Allergy (Verified 03/26/15 11:04) Anaphylaxis codeine Adverse Reaction (Verified 03/26/15 11:04) Upset Stomach Procedures: Wound Vac placement, - - Extensive I AND D - Type of Care/Length of Stay Estimated LOS: Convalescent Care Less Than 30 days Type of Care Needed: Skilled Rehab Potential: Good Prognosis: Good - Additional Orders/Day of Discharge Day of Discharge: 12/14/17 - Dietary and Speech Recommendations Dietitian Recommendations/Changes: Recommend diet change to 2000 calorie, cardiac, low sodium diet given obesity AND past medical hx. Recommend continue ONS medpass and Josafat 1 packet BID for wound healing. - Follow Up Care Primary Care Physician: Rajesh Holman MD [Primary Care Provider] - Please follow up with your Primary Care Physician in: within 2 weeks Please Follow Up With: Alejo Martinez MD When: within 2 weeks in wound center 12/14/17 1038 <Electronically signed by Arabella Fontana MD> Date Arabella Fontana MD CC: Alejo Martinez MD; Boy Haines MD; Rajesh Holman MD Signed PROTHROMBIN TIME W/INR Collected: 12/14/2017 Status: F Source: [place] 10:00 AM [facility] REPOSITORY TYPE CODE TESTS RESULT OUT OF RANGE REFERENCE UNITS LAB L300.4150 11.7-14.9 SECONDS High PROTIME 28.2 LAB L300.4200 Normal INR 2.6 Performed By: #### L300.3900 #### [facility] [address] [place], [address] BEDSIDE GLUCOSE Collected: 12/14/2017 Status: F Source: [place] 7:52 AM [facility] REPOSITORY TYPE CODE TESTS RESULT OUT OF REFERENCE UNITS RANGE LAB L501.080 70-110 mg/dL High BEDSIDE GLU 193 Result Comment: MANAGEMENT OF PATIENT CARE PER NURSING PROTOCOL Performed By: #### L501.080 #### [facility] Point of Care [address] [place] [address] BEDSIDE GLUCOSE Collected: 12/13/2017 Status: F Source: [place] 8:58 PM [facility] REPOSITORY TYPE CODE TESTS RESULT OUT OF REFERENCE UNITS RANGE LAB L501.080 70-110 mg/dL High BEDSIDE GLU 167 Result Comment: MANAGEMENT OF PATIENT CARE PER NURSING PROTOCOL Performed By: #### L501.080 #### [facility] Point of Care [address] [place] [address] BEDSIDE GLUCOSE Collected: 12/13/2017 Status: F Source: [place] 5:27 PM [facility] REPOSITORY TYPE CODE TESTS RESULT OUT OF REFERENCE UNITS RANGE LAB L501.080 70-110 mg/dL High BEDSIDE GLU 119 Result Comment: MANAGEMENT OF PATIENT CARE PER NURSING PROTOCOL Performed By: #### L501.080 #### [facility] Point of Care [address] [place], [place] [id number] BEDSIDE GLUCOSE Collected: 12/13/2017 Status: F Source: [place] 8:52 AM [facility] REPOSITORY TYPE CODE TESTS RESULT OUT OF REFERENCE UNITS RANGE LAB L501.080 70-110 mg/dL High BEDSIDE GLU 134 Result Comment: MANAGEMENT OF PATIENT CARE PER NURSING PROTOCOL Performed By: #### L501.080 #### [facility] Point of Care [address] [place] [address] CBC W/DIFF, AUTOMATED Collected: 12/13/2017 Status: F Source: [place] 6:00 AM [facility] REPOSITORY Order Comment: SPECIMEN OBTAINED FROM LINE DRAW TYPE CODE TESTS RESULT OUT OF RANGE REFERENCE UNITS LAB L100.1000 4.4-11.0 K/mm3 Normal WBC 6.9 LAB L100.1200 4.2-5.4 M/mm3 Low RBC 2.98 LAB L100.1300 12.0-15.0 g/dl Low HGB 8.4 LAB L100.1400 37-47 % Low HCT 28.5 LAB L100.1500 81-99 fL Normal MCV 95.6 LAB L100.1600 27.0-32.0 pg Normal MCH 28.2 LAB L100.1700 32-36 g/gl Low MCHC 29.5 LAB L100.1810 11.6-14.6 % High RDW CV 19.0 LAB L100.1820 35.1-43.9 fl High RDW SD 65.7 LAB L100.1900 150-450 K/mm3 Normal PLT 270 LAB L100.2000 6.2-12.0 fl Normal MPV 9.1 LAB L100.2100 47-70 % Normal NEUT% 65.6 LAB L100.2200 19-41 % Normal LY% 22.1 LAB L100.2300 0-10 % Normal MONO% 7.7 LAB L100.2400 0-5 % Normal EO% 4.3 LAB L100.2500 0-1 % Normal BASO% 0.0 LAB L100.2550 0.0-0.9 % Normal IM GRAN % 0.300 Result Comment: IG% - Immature Granulocytes (promyelocytes, myelocytes and metamyelocytes) > 1% indicates that a LEFT SHIFT is Present. LAB L100.2620 2.0-7.7 X10 3/uL Normal Absolute Neut 4.5 LAB L100.2720 0.83-4.51 X10 3/ul Normal Absolute Lymph 1.53 LAB L100.4500 Normal SMEAR COMMENT SCANNED LAB L100.7300 Normal ANISO 3+ Performed By: #### L100.0100 #### [facility] [address] [place], [place], [address] PROTHROMBIN TIME W/INR Collected: 12/13/2017 Status: F Source: [place] 6:00 AM [facility] REPOSITORY Order Comment: SPECIMEN OBTAINED FROM LINE DRAW TYPE CODE TESTS RESULT OUT OF RANGE REFERENCE UNITS LAB L300.4150 11.7-14.9 SECONDS High PROTIME 29.9 LAB L300.4200 Normal INR 2.8 Performed By: #### L300.3900 #### [facility] [address] [place], [address] RETIC PANEL Collected: 12/13/2017 Status: F Source: [place] 6:00 AM [facility] REPOSITORY TYPE CODE TESTS RESULT OUT OF RANGE REFERENCE UNITS LAB L101.0000 0.5-1.5 % High RETIC 3.83 LAB L101.0060 3.00-15.90 % High IM RET FRACTION 17.90 LAB L101.0090 30-35 pg Low RET-HE 22.8 LAB L101.0110 1.0-7.9 % Normal IPF 1.9 Result Comment: Low PLT + Low IPF suggest a bone marrow production disorder Low PLT + high IPF suggests peripheral destruction (e.g.ITP, TTP, HIT, DIC, autoimmune) or bone marrow recovery Trending of serial IPF measurements is recommended when evaluating for bone marrow respones Value above normal range indicates an increase in RBC cellular response from bone marrow. Performed By: #### L100.9950 #### [facility] [address] [place] [address], [address] IRON+IRON BINDING Collected: 12/13/2017 Status: F Source: [facility] 6:00 AM [facility] REPOSITORY TYPE CODE TESTS RESULT OUT OF REFERENCE UNITS RANGE LAB L503.6075 250-450 ug/dL Low TIBC 212 LAB L503.6150 50-170 ug/dL Low IRON 31 LAB L503.6250 15.0-55.0 % Low IRON SATURATION 14.6 Performed By: #### L503.6030, L503.6550 #### [facility] [address] [place], [place], [address] FERRITIN Collected: 12/13/2017 Status: F Source: [place] 6:00 AM [facility] REPOSITORY TYPE CODE TESTS RESULT OUT OF RANGE REFERENCE UNITS LAB L503.6550 8-252 ng/mL Normal FERRITIN 118 Performed By: #### L503.6030, L503.6550 #### [facility] [address] [place], [address] CONSULTATION Observed: 12/12/2017 Status: F Source: [place] 11:26 PM [facility] REPOSITORY [facility] Medical Records Department [address] [place] [address] Consultation 12/07/17 1403 MR#: [id number] Acct: [id number] Name: VICKI HERNANDEZ #: [id number] : 1960 57 From: Alejo Martinez MD PCP: Rajesh Holman MD Status: ADM IN Y Location: MS3 [id number] Reason for Consult Date of Consultation: 12/07/17 Reason for Consultation: Nonhealing infected MRSA ulcers bilateral posterior legs. REFERRING PHYSICIAN: Dr. Carrasco. PITCH FLAKER: Dr. Martinez. History of Present Illness: The patient is a 57 year old F who is morbidly obese past medical history of diabetes mellitus, chronic atrial fibrillation on Coumadin, chronic venous insufficiency with venostasis who was admitted to the hospital with pain and redness on her posterior legs from abrasion ulcerations that started a week ago after trying to removed dry skin from her legs using a scrub brush. She denies any fever or chills. Emergency room swab from her legs was positive for MRSA PCR was given a dose of IV vancomycin and admitted to the hospital for further management with IV antibiotics and aggressive wound care. I was asked to evaluate this patient for surgical options for treatment. Past Medical History Past Medical History (Chronic Problems): Chronic Problems (Last Updated 12/07/17 @ 09:05 by Thomas Carrasco MD) Pulmonary hypertension (Chronic) Morbid obesity (Chronic) Congestive heart failure (Chronic) Chronic atrial fibrillation (Chronic) Type 2 diabetes mellitus (Chronic) Hypertension (Chronic) Allergies latex Allergy (Verified 03/26/15 11:04) Itching pentazocine lactate [From Talwin] Allergy (Verified 03/26/15 11:04) Itching phenobarbital Allergy (Verified 03/26/15 11:04) Itching tree nut Allergy (Verified 03/26/15 11:04) Anaphylaxis codeine Adverse Reaction (Verified 03/26/15 11:04) Upset Stomach Current Medications Albuterol Sulfate (Ventolin Aerosols) 2.5 mg INHALATION Q4H PRN Albuterol Sulfate (Ventolin Aerosols) 2.5 mg INHALATION Q6HWA.RT FRED Budesonide (Pulmicort Aerosol) 0.5 mg INHALATION Q12H.RT FRED Citalopram Hydrobromide (Celexa) 40 mg PO DAILY [facility] Collagenase (Santyl) 1 applic TOPICAL DAILY FR[facility] Digoxin (Lanoxin) 250 mcg PO DAILY [facility] Diltiazem HCl (Cardizem Cd) 120 mg PO DAILY [facility] Fluticasone Propionate (Flonase Nasal [place]) [address] [facility] Furosemide (Lasix) [address] [facility] Gabapentin (Neurontin) 400 mg PO 4X/DAY [facility] Heparin Sodium (Porcine) (Heparin Na) 5,[address] [facility] Vancomycin HCl 1,750 mg/ (Sodium Chloride) 535 mls @ 260 mls/hr IV Q12H [facility] Insulin Aspart (Novolog Flexpen ([facility])) [address] [facility] Insulin Detemir (Levemir ([facility])) [address] [facility] Ketorolac Tromethamine (Toradol) 30 mg IV Q6H PRN Lisinopril (Zestril) 10 mg PO DAILY [facility] Lorazepam (Ativan) 1 mg PO TID PRN Magnesium Hydroxide (Milk Of Magnesia) 30 ml PO DAILY PRN Morphine Sulfate () 4 mg IV Q4H PRN Nadolol (Corgard) [address] [facility] Nystatin (Mycostatin Powder) [address] [facility] Ondansetron HCl (Zofran) 8 mg IV Q6H PRN Tramadol HCl (Ultram) 100 mg PO Q6H PRN Warfarin Sodium (Coumadin (Pbkc)) 10 mg PO SuMoWeFr@1700 [facility] Warfarin Sodium (Coumadin (Pbkc)) 10 mg PO TuThSa@1700 FRED Warfarin Sodium (Coumadin (Pbkc)) 1 mg PO SuMoWeFr@1700 [facility] PAST MEDICAL HISTORY Diabetes mellitus. Hypertension. Atrial fibrillation. CHF. Obesity. Chronic venous insufficiency with venostasis disease. MRSA. Home Medications: Ambulatory Orders Medication Instructions Recorded Citalopram [Celexa] 40 mg PO DAILY 03/20/15 Digoxin [Digitek] 250 mcg PO DAILY 03/20/15 Exenatide [Byetta ([facility])] 5 mcg SC BIDCM 03/20/15 Surgical History: cholecystectomy, hysterectomy - with BSO, tonsillectomy, - - 2 section. Psychiatric History: No pertinent psych hx CAR SCRUBBER History: No pertinent CAR SCRUBBER history Lives: With Family - her mother Smoking Status: Former smoker Alcohol: None Drugs: None - *Family History Maternal History Items: No pertinent history Paternal History Items: No pertinent history Review of Systems Constitutional: Reports: Malaise, Weight Change - lost 80 lbs over last 1-2 years., Fatigue. Denies: Chills, Fever Eyes: Denies: Cataracts, Pain HEENT: Denies: Nasal Congestion, Sore Throat Cardiovascular: Denies: Chest Pain Respiratory: Denies: Cough, Shortness of Breath Gastrointestinal: Denies: Constipation, Diarrhea, Nausea, Vomiting Genitourinary: Denies: Frequency, Hematuria Musculoskeletal: Reports: Leg Pain - bilateral leg pain from abrasion ulcerations posteriorly.. Denies: Arm Pain, Back Pain, Hand Pain, Neck Pain Skin: Reports: Wounds - has abrasion ulcerations positive for MRSA bilateral posterior legs. Neurological: Denies: Headaches Psychiatric: Denies: Anxiety, Depression Endocrine: Reports: - - has diabetes mellitus.. Denies: Polydipsia, Polyuria Hematologic/ Lymphatic: Reports: Easy Bruising - on Coumadin for atrial fibrillation.. Denies: Hx of blood clot - Physical Exam General: Alert, Oriented x3 HEENT: PERRLA, EOMI Neck: Supple Lungs: Clear to auscultation Cardiovascular: Regular rate, Regular Rhythm Abdomen: Soft, Non-Distended Extremities: No clubbing, No cyanosis, Diminished Peripheral Pulses, Edema - mild edema in lower extremities. Skin: Ulcer/ Wound - abrasion ulcerations bilateral posterior legs scattered. Extend from proximal posterior leg down to the ankle area. Very tender to palpation. Some eschar present. No purulent drainage. Some of the scattered ulcerations appear to be partial thickness like grant. Lymphatic: No Cervical, Supraclavicular, or Inguinal Adenopathy Neurological: Cranial nerves II-XII grossly intact Psych/Mental Status: Normal Affect, Appropriate Vital Signs Temp Pulse Resp BP Pulse Ox 98.7 F 108 H 16 100/66 93 12/07/17 09:00 12/07/17 11:00 12/07/17 09:00 12/07/17 09:00 12/07/17 09:00 Oxygen Flow Rate (L/min) 2 Oxygen Delivery Method Nasal Cannula Weight: 417 lb Body Mass Index (BMI) 67.3 Intake and Output for Last 24 Hours Intake Total 450 / 450 Balance 450 / 450 Laboratory Tests Past 24 Hrs POC Glucose POC Glucose 139 H 144 H 280 H Assessment/Plan 1. 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 2. Diabetes mellitus. 3. Chronic venous insufficiency with venostasis disease. 4. MRSA. 5. Obesity. 6. Atrial fibrillation on Coumadin. Begin Santyl wound care to try and enzymatically debride these ulcerations before surgery. Recommend operative incision and drainage and excisional debridement of these infected MRSA ulcers bilateral legs. Depending on the size of the wounds after the debridement, the VAC may be placed for wound care or may proceed with daily Silver dressings. Will schedule the surgery tomorrow. Will also need KRISTEN wrap for compression. Before discharge will order a noninvasive arterial Doppler study to check for any underlying arterial disease prior to proceeding with extensive compression. Preop will order a CT scan to look for any underlying involvement of the musculature. Continue the Vancomycin for the MRSA. Being diabetic, she will need IV antibiotics after discharge and a PICC line will be placed. After discharge can followup at the [facility]. If there is a plateau in the healing process, can proceed with delayed closure with skin grafting. Anticipate increased metabolic demands with the infection and the wounds. Will check a Prealbumin. Will begin nutritional supplementation with protein to help the healing process. Patient was informed of the risks and complications of the procedure including alternatives to surgery. These were discussed with her personally. She voices understanding and wishes to proceed. She understands that without aggressive debridement and management, she is at increased risk of the infection worsening that may lead to an eventual amputation. She is aware of that possibility and wishes to proceed with the current plan of aggressive debridement and management. After surgery, with these complex wounds and the need for IV antibiotics, it will be difficult to manage this at home. I recommend going to an ECF for further care post-discharge. Code Visit Inpatient E AND M: [id number] Init Hosp L2 - ICD-10 - L02.415, L02.416, E11.622, A49.02, E66.01, E11.9 12/12/17 2326 <Electronically signed by Alejo Martinez MD> Date Alejo Martinez MD Cosigner Signature (if applicable): Date CC: Thomas Carrasco; Alejo Martinez MD; Irasema Ortiz MD; Rajesh Holman MD Signed BEDSIDE GLUCOSE Collected: 12/12/2017 Status: F Source: [place] 9:17 PM [facility] REPOSITORY TYPE CODE TESTS RESULT OUT OF REFERENCE UNITS RANGE LAB L501.080 70-110 mg/dL High BEDSIDE GLU 154 Result Comment: MANAGEMENT OF PATIENT CARE PER NURSING PROTOCOL Performed By: #### L501.080 #### [facility] Point of Care [address] [place] [address] BEDSIDE GLUCOSE Collected: 12/12/2017 Status: F Source: [place] 4:48 PM [facility] REPOSITORY TYPE CODE TESTS RESULT OUT OF REFERENCE UNITS RANGE LAB L501.080 70-110 mg/dL High BEDSIDE GLU 154 Result Comment: MANAGEMENT OF PATIENT CARE PER NURSING PROTOCOL Performed By: #### L501.080 #### [facility] Point of Care [address] [place] [address] BEDSIDE GLUCOSE Collected: 12/12/2017 Status: F Source: [place] 11:56 AM [facility] REPOSITORY TYPE CODE TESTS RESULT OUT OF REFERENCE UNITS RANGE LAB L501.080 70-110 mg/dL High BEDSIDE GLU 113 Result Comment: MANAGEMENT OF PATIENT CARE PER NURSING PROTOCOL Performed By: #### L501.080 #### [facility] Point of Care [address] [place] [address] BEDSIDE GLUCOSE Collected: 12/12/2017 Status: F Source: [place] 7:45 AM [facility] REPOSITORY TYPE CODE TESTS RESULT OUT OF RANGE REFERENCE UNITS LAB L501.080 70-110 mg/dL Normal BEDSIDE GLU 96 Result Comment: MANAGEMENT OF PATIENT CARE PER NURSING PROTOCOL Performed By: #### L501.080 #### [facility] Point of Care [address] [place] [address] BASIC METABOLIC Collected: 12/12/2017 Status: F Source: [place] PROFILE (BMP) 5:33 AM [facility] REPOSITORY Order Comment: SPECIMEN OBTAINED FROM LINE DRAW TYPE CODE TESTS RESULT OUT OF RANGE REFERENCE UNITS LAB L501.0100 74-106 mg/dL Normal GLU 82 Result Comment: Please note revised GLUCOSE reference range effective 2017. LAB L501.1000 7-18 mg/dL High BUN 32 LAB L501.1100 0.55-1.02 mg/dL Normal CREAT,SERUM 0.93 Result Comment: The validity of the calculated GFR AND GFRAA in patients over 70 years has not been determined. Clinical correlation is essential. LAB L501.1110 >60 mL/min Normal EST GFR 66 Result Comment: Non- GFR Calc LAB L501.1115 >60 mL/min Normal EST GFR - AA 80 Result Comment: GFR Calc LAB L501.1255 ml/min Normal Estimated CRCL 60.97 LAB L501.1300 10-20 RATIO High BUN/CRE 34.6 LAB L501.2200 8.5-10 mg/dL Low .1 CA 8.3 LAB L501.5300 136-14 mmol/L Normal 5 NA 141 LAB L501.5600 3.5-5. mmol/L Normal 1 K 4.5 LAB L501.5900 98-107 mmol/L Normal CL 101 LAB L501.6100 21.0-3 mmol/L High 2.0 CO2 35.0 LAB L501.6200 5-15 Normal GAP 5 Performed By: #### L500.2500 #### [facility] [address] [facility] [place], [place], [id number] PROTHROMBIN TIME W/INR Collected: 12/12/2017 Status: F Source: [place] 5:33 AM [facility] REPOSITORY Order Comment: SPECIMEN OBTAINED FROM LINE DRAW TYPE CODE TESTS RESULT OUT OF RANGE REFERENCE UNITS LAB L300.4150 11.7-14.9 SECONDS High PROTIME 29.2 LAB L300.4200 Normal INR 2.7 Performed By: #### L300.3900 #### [facility] [address] [place], [place], [id number] BEDSIDE GLUCOSE Collected: 12/12/2017 Status: F Source: [place] 5:32 AM [facility] REPOSITORY TYPE CODE TESTS RESULT OUT OF RANGE REFERENCE UNITS LAB L501.080 70-110 mg/dL Normal BEDSIDE GLU 88 Result Comment: MANAGEMENT OF PATIENT CARE PER NURSING PROTOCOL Performed By: #### L501.080 #### [facility] Point of Care [address] [place] [address] CBC W/DIFF, AUTOMATED Collected: 12/12/2017 Status: F Source: [place] 5:32 AM [facility] REPOSITORY Order Comment: SPECIMEN OBTAINED FROM LINE DRAW TYPE CODE TESTS RESULT OUT OF RANGE REFERENCE UNITS LAB L100.1000 4.4-11.0 K/mm3 Normal WBC 7.5 LAB L100.1200 4.2-5.4 M/mm3 Low RBC 2.88 LAB L100.1300 12.0-15.0 g/dl Low HGB 8.2 LAB L100.1400 37-47 % Low HCT 27.5 LAB L100.1500 81-99 fL Normal MCV 95.5 LAB L100.1600 27.0-32.0 pg Normal MCH 28.5 LAB L100.1700 32-36 g/gl Low MCHC 29.8 LAB L100.1810 11.6-14.6 % High RDW CV 19.1 LAB L100.1820 35.1-43.9 fl High RDW SD 66.6 LAB L100.1900 150-450 K/mm3 Normal PLT 245 LAB L100.2000 6.2-12.0 fl Normal MPV 9.0 LAB L100.2100 47-70 % Normal NEUT% 62.2 LAB L100.2200 19-41 % Normal LY% 24.3 LAB L100.2300 0-10 % Normal MONO% 8.1 LAB L100.2400 0-5 % Normal EO% 5.0 LAB L100.2500 0-1 % Normal BASO% 0.1 LAB L100.2550 0.0-0.9 % Normal IM GRAN % 0.300 Result Comment: IG% - Immature Granulocytes (promyelocytes, myelocytes and metamyelocytes) > 1% indicates that a LEFT SHIFT is Present. LAB L100.2620 2.0-7.7 X10 3/uL Normal Absolute Neut 4.6 LAB L100.2720 0.83-4.51 X10 3/ul Normal Absolute Lymph 1.81 LAB L100.4500 Normal SMEAR COMMENT SCANNED LAB L100.7300 Normal ANISO 2+ Performed By: #### L100.0100 #### [facility] [address] [place], [address] BEDSIDE GLUCOSE Collected: 12/11/2017 Status: F Source: [place] 10:22 PM [facility] REPOSITORY TYPE CODE TESTS RESULT OUT OF RANGE REFERENCE UNITS LAB L501.080 70-110 mg/dL Normal BEDSIDE GLU 86 Result Comment: MANAGEMENT OF PATIENT CARE PER NURSING PROTOCOL Performed By: #### L501.080 #### [facility] Point of Care [address] [place] [address] BEDSIDE GLUCOSE Collected: 12/11/2017 Status: F Source: [place] 4:43 PM [facility] REPOSITORY TYPE CODE TESTS RESULT OUT OF RANGE REFERENCE UNITS LAB L501.080 70-110 mg/dL Normal BEDSIDE GLU 75 Result Comment: MANAGEMENT OF PATIENT CARE PER NURSING PROTOCOL Performed By: #### L501.080 #### [facility] Point of Care [address] [place] [address] BEDSIDE GLUCOSE Collected: 12/11/2017 Status: F Source: [place] 11:41 AM [facility] REPOSITORY TYPE CODE TESTS RESULT OUT OF REFERENCE UNITS RANGE LAB L501.080 70-110 mg/dL High BEDSIDE GLU 147 Result Comment: MANAGEMENT OF PATIENT CARE PER NURSING PROTOCOL Performed By: #### L501.080 #### [facility] Point of Care [address] [place] [address] BEDSIDE GLUCOSE Collected: 12/11/2017 Status: F Source: [place] 8:18 AM [facility] REPOSITORY TYPE CODE TESTS RESULT OUT OF REFERENCE UNITS RANGE LAB L501.080 70-110 mg/dL High BEDSIDE GLU 123 Result Comment: MANAGEMENT OF PATIENT CARE PER NURSING PROTOCOL Performed By: #### L501.080 #### [facility] Point of Care [address] [place] [address] BASIC METABOLIC Collected: 12/11/2017 Status: F Source: [place] PROFILE (BMP) 7:45 AM [facility] REPOSITORY TYPE CODE TESTS RESULT OUT OF RANGE REFERENCE UNITS LAB L501.0100 74-106 mg/dL Normal GLU 103 Result Comment: Fasting Glucose result from 100 to 125 mg/dL suggests IMPAIRED HOMEOSTASIS per A.D.A. criteria. Please note revised GLUCOSE reference range effective 2017. LAB L501.1000 7-18 mg/dL High BUN 30 LAB L501.1100 0.55-1.02 mg/dL High CREAT,SERUM 1.18 Result Comment: The validity of the calculated GFR AND GFRAA in patients over 70 years has not been determined. Clinical correlation is essential. LAB L501.1110 >60 mL/min Low EST GFR 50 Result Comment: Non- GFR Calc LAB L501.1115 >60 mL/min Normal EST GFR - AA 60 Result Comment: GFR Calc LAB L501.1255 ml/min Normal Estimated CRCL 48.06 LAB L501.1300 10-20 RATIO High BUN/CRE 25.4 LAB L501.2200 8.5-10 mg/dL Low .1 CA 8.0 LAB L501.5300 136-14 mmol/L Normal 5 NA 139 LAB L501.5600 3.5-5. mmol/L Normal 1 K 4.8 LAB L501.5900 98-107 mmol/L Normal CL 101 LAB L501.6100 21.0-3 mmol/L High 2.0 CO2 33.0 LAB L501.6200 5-15 Normal GAP 5 Performed By: #### L500.2500 #### [facility] [address] [place], [place], [address] BLOOD GASES BY [facility] Collected: 12/11/2017 Status: F Source: [place] 7:19 AM [facility] REPOSITORY TYPE CODE TESTS RESULT OUT OF RANGE REFERENCE UNITS LAB L9000.9990 Normal BLD GAS TYPE ART LAB L9001.1000 L Normal SITE Brachial LAB L9001.1010 Normal AGUSTIN TEST POS LAB L9001.1050 O2 Normal Delivery Dev Nasal Can LAB L9001.1055 /min Normal LPM 4.0 LAB L9001.1104 Normal Results To HOSP LAB L9001.1105 Normal Time Given 716 LAB L9001.1110 7.35-7.45 pH Normal - I-STAT 7.37 LAB L9001.1210 35-45 mmHg High pCO2 - ISTAT 57.1 LAB L9001.1310 75-100 mmHG Low 66 PO2 I-STAT LAB L9001.2300 22-26 mmol/L High HCO3 ISTAT 33.1 LAB L9001.2400 -2 to +2 mmol/L High BE 8 ISTAT LAB L9001.2415 mmol/L 35 Normal TOTAL CO2 ISTAT LAB L9001.2425 95-99 % Low 91 SO2 ISTAT Performed By: #### L9000.0800 #### [facility] Point of Care [address] [place] [address] HH, HEMOGLOBIN AND Collected: 12/11/2017 Status: F Source: [place] HEMATOCRIT 5:35 AM [facility] REPOSITORY TYPE CODE TESTS RESULT OUT OF RANGE REFERENCE UNITS LAB L100.1300 12.0-15.0 g/dl Low HGB 8.3 LAB L100.1400 37-47 % Low HCT 27.7 Performed By: #### L100.0600 #### [facility] [address] [place], [address] BEDSIDE GLUCOSE Collected: 12/10/2017 Status: F Source: [place] 11:47 PM [facility] REPOSITORY TYPE CODE TESTS RESULT OUT OF REFERENCE UNITS RANGE LAB L501.080 70-110 mg/dL High BEDSIDE GLU 128 Result Comment: MANAGEMENT OF PATIENT CARE PER NURSING PROTOCOL Performed By: #### L501.080 #### [facility] Point of Care [address] [place] [address] BEDSIDE GLUCOSE Collected: 12/10/2017 Status: F Source: [place] 4:15 PM [facility] REPOSITORY TYPE CODE TESTS RESULT OUT OF RANGE REFERENCE UNITS LAB L501.080 70-110 mg/dL Normal BEDSIDE GLU 99 Result Comment: MANAGEMENT OF PATIENT CARE PER NURSING PROTOCOL Performed By: #### L501.080 #### [facility] Point of Care [address] [place] [address] BEDSIDE GLUCOSE Collected: 12/10/2017 Status: F Source: [place] 12:23 PM [facility] REPOSITORY TYPE CODE TESTS RESULT OUT OF REFERENCE UNITS RANGE LAB L501.080 70-110 mg/dL High BEDSIDE GLU 119 Result Comment: MANAGEMENT OF PATIENT CARE PER NURSING PROTOCOL Performed By: #### L501.080 #### [facility] Point of Care [address] [place] [address] BEDSIDE GLUCOSE Collected: 12/10/2017 Status: F Source: [place] 8:27 AM [facility] REPOSITORY TYPE CODE TESTS RESULT OUT OF REFERENCE UNITS RANGE LAB L501.080 70-110 mg/dL High BEDSIDE GLU 115 Result Comment: MANAGEMENT OF PATIENT CARE PER NURSING PROTOCOL Performed By: #### L501.080 #### [facility] Point of Care [address] [place] [address] PROTHROMBIN TIME W/INR Collected: 12/10/2017 Status: F Source: [place] 5:25 AM [facility] REPOSITORY TYPE CODE TESTS RESULT OUT OF RANGE REFERENCE UNITS LAB L300.4150 11.7-14.9 SECONDS High PROTIME 25.4 LAB L300.4200 Normal INR 2.3 Performed By: #### L300.3900 #### [facility] [address] [place] [address], [address] CBC-COMPLETE BLOOD CNT Collected: 12/10/2017 Status: F Source: [place] NO DIFF 5:25 AM [facility] REPOSITORY TYPE CODE TESTS RESULT OUT OF RANGE REFERENCE UNITS LAB L100.1000 4.4-11.0 K/mm3 Normal WBC 9.1 LAB L100.1200 4.2-5.4 M/mm3 Low RBC 3.14 LAB L100.1300 12.0-15.0 g/dl Low HGB 8.9 LAB L100.1400 37-47 % Low HCT 29.7 LAB L100.1500 81-99 fL Normal MCV 94.6 LAB L100.1600 27.0-32.0 pg Normal MCH 28.3 LAB L100.1700 32-36 g/gl Low MCHC 30.0 LAB L100.1810 11.6-14.6 % High RDW CV 19.1 LAB L100.1820 35.1-43.9 fl High RDW SD 65.3 LAB L100.1900 150-450 K/mm3 Normal PLT 278 LAB L100.2000 6.2-12.0 fl Normal MPV 8.9 Performed By: #### L100.0500, L100.4500 #### [facility] [address] [facility] [place], [address] DIFFERENTIAL COMMENT Collected: 12/10/2017 Status: F Source: [place] 5:25 AM [facility] REPOSITORY TYPE CODE TESTS RESULT OUT OF RANGE REFERENCE UNITS LAB L100.4500 Normal SMEAR COMMENT SCANNED Result Comment: 1+ MICROCYTOSIS 2+ MACROCYTOSIS RARE POLYCHROMASIA Performed By: #### L100.0500, L100.4500 #### [facility] [address] [place], [address] BASIC METABOLIC Collected: 12/10/2017 Status: F Source: [place] PROFILE (BMP) 5:25 AM [facility] REPOSITORY TYPE CODE TESTS RESULT OUT OF RANGE REFERENCE UNITS LAB L501.0100 74-106 mg/dL Normal GLU 105 Result Comment: Fasting Glucose result from 100 to 125 mg/dL suggests IMPAIRED HOMEOSTASIS per A.D.A. criteria. Please note revised GLUCOSE reference range effective 2017. LAB L501.1000 7-18 mg/dL High BUN 21 LAB L501.1100 0.55-1.02 mg/dL Normal CREAT,SERUM 0.99 Result Comment: The validity of the calculated GFR AND GFRAA in patients over 70 years has not been determined. Clinical correlation is essential. LAB L501.1110 >60 mL/min Normal EST GFR 61 Result Comment: Non- GFR Calc LAB L501.1115 >60 mL/min Normal EST GFR - AA 74 Result Comment: GFR Calc LAB L501.1255 ml/min Normal Estimated CRCL 57.28 LAB L501.1300 10-20 RATIO High BUN/CRE 21.2 LAB L501.2200 8.5-10 mg/dL Low .1 CA 8.1 LAB L501.5300 136-14 mmol/L Normal 5 NA 142 LAB L501.5600 3.5-5. mmol/L Normal 1 K 4.7 LAB L501.5900 98-107 mmol/L Normal CL 105 LAB L501.6100 21.0-3 mmol/L High 2.0 CO2 34.0 LAB L501.6200 5-15 Low GAP 3 Performed By: #### L500.2500, L506.0500 #### [facility] [address] [place], [address] PREALBUMIN Collected: 12/10/2017 Status: F Source: [place] 5:25 AM [facility] REPOSITORY TYPE CODE TESTS RESULT OUT OF REFERENCE UNITS RANGE LAB L506.0500 20.0-40.0 mg/dL Low PREALBUMIN 7.9 Performed By: #### L500.2500, L506.0500 #### [facility] [address] [place], [address] BEDSIDE GLUCOSE Collected: 12/09/2017 Status: F Source: [place] 9:55 PM [facility] REPOSITORY TYPE CODE TESTS RESULT OUT OF REFERENCE UNITS RANGE LAB L501.080 70-110 mg/dL High BEDSIDE GLU 142 Result Comment: MANAGEMENT OF PATIENT CARE PER NURSING PROTOCOL Performed By: #### L501.080 #### [facility] Point of Care [address] [place] [address] BEDSIDE GLUCOSE Collected: 12/09/2017 Status: F Source: [place] 4:27 PM [facility] REPOSITORY TYPE CODE TESTS RESULT OUT OF REFERENCE UNITS RANGE LAB L501.080 70-110 mg/dL High BEDSIDE GLU 129 Result Comment: MANAGEMENT OF PATIENT CARE PER NURSING PROTOCOL Performed By: #### L501.080 #### [facility] Point of Care [address] [place] [address] HEMOGLOBIN Collected: 12/09/2017 Status: F Source: [place] 4:12 PM [facility] REPOSITORY Order Comment: NURSE DRAW PT HAS PICC. TYPE CODE TESTS RESULT OUT OF RANGE REFERENCE UNITS LAB L100.1300 12.0-15.0 g/dl Low HGB 9.4 Performed By: #### L100.1300 #### [facility] [address] [place], [address] BEDSIDE GLUCOSE Collected: 12/09/2017 Status: F Source: [place] 2:10 PM [facility] REPOSITORY TYPE CODE TESTS RESULT OUT OF REFERENCE UNITS RANGE LAB L501.080 70-110 mg/dL High BEDSIDE GLU 136 Result Comment: MANAGEMENT OF PATIENT CARE PER NURSING PROTOCOL Performed By: #### L501.080 #### [facility] Point of Care [address] [place] [address] TYPE AND SCREEN Collected: 12/09/2017 Status: F Source: [place] 1:30 PM [facility] REPOSITORY Order Comment: CMV NEG? N Is there a >20% drop in pt's BP? N Is the pt's CVP (central venous pressure) <3 cm/H2O? N Is the EBL >/= 1000ml in adults or >/= 12ml/kg in children? N Is there an orthostatic change in pt's BP(SBP drop >10mmHg)? N Is pt's HR > 100 bpm? N Reason for Ordering Blood: Acute PT HAS PICC ADRIANA HERNANDEZ IN PACU IS DRAWING OFF PICC. Are the blood/blood products to be transfused? N Is the patient having/had surgery? Y Anticipated time of surgery: 1000 CMV NEG?* N Give When? When Ready Irradiated? N Leukodepleted? Y Reason for Type AND Screen/Red Cells: ANEMIA Surgery Date: 12/09/17 Other - use comments: OTHER Type of Surgery: OTHER TYPE CODE TESTS RESULT OUT OF RANGE REFERENCE UNITS LAB B10.0800 A Normal BLOOD TYPE GEL POSITIVE LAB B100.4000 Normal Antibody NEGATIVE Screen Performed By: #### B101.7450 #### [facility] [address] [place], [place], [address] BEDSIDE GLUCOSE Collected: 12/09/2017 Status: F Source: [place] 8:01 AM [facility] REPOSITORY TYPE CODE TESTS RESULT OUT OF REFERENCE UNITS RANGE LAB L501.080 70-110 mg/dL High BEDSIDE GLU 113 Result Comment: MANAGEMENT OF PATIENT CARE PER NURSING PROTOCOL Performed By: #### L501.080 #### [facility] Point of Care [address] [place], [place] [address] CBC W/DIFF, AUTOMATED Collected: 12/09/2017 Status: F Source: [place] 7:30 AM [facility] REPOSITORY TYPE CODE TESTS RESULT OUT OF RANGE REFERENCE UNITS LAB L100.1000 4.4-11.0 K/mm3 Normal WBC 5.6 LAB L100.1200 4.2-5.4 M/mm3 Low RBC 3.29 LAB L100.1300 12.0-15.0 g/dl Low HGB 9.4 LAB L100.1400 37-47 % Low HCT 31.2 LAB L100.1500 81-99 fL Normal MCV 94.8 LAB L100.1600 27.0-32.0 pg Normal MCH 28.6 LAB L100.1700 32-36 g/gl Low MCHC 30.1 LAB L100.1810 11.6-14.6 % High RDW CV 19.0 LAB L100.1820 35.1-43.9 fl High RDW SD 65.6 LAB L100.1900 150-450 K/mm3 Normal PLT 233 LAB L100.2000 6.2-12.0 fl Normal MPV 9.1 LAB L100.2100 47-70 % Normal NEUT% 59.4 LAB L100.2200 19-41 % Normal LY% 31.2 LAB L100.2300 0-10 % Normal MONO% 5.3 LAB L100.2400 0-5 % Normal EO% 3.7 LAB L100.2500 0-1 % Normal BASO% 0.2 LAB L100.2550 0.0-0.9 % Normal IM GRAN % 0.200 Result Comment: IG% - Immature Granulocytes (promyelocytes, myelocytes and metamyelocytes) > 1% indicates that a LEFT SHIFT is Present. LAB L100.2620 2.0-7.7 X10 3/uL Absolute Neut Normal 3.3 LAB L100.2720 0.83-4.51 X10 3/ul Absolute Lymph Normal 1.75 LAB L100.7500 POLYCHROMASIA Normal RARE LAB L100.7600 HYPOCHROMASIA Normal 1+ Performed By: #### L100.0100 #### [facility] [address] [place], [place], [address] BASIC METABOLIC Collected: 12/09/2017 Status: F Source: [place] PROFILE ([facility]) 7:30 AM [facility] REPOSITORY TYPE CODE TESTS RESULT OUT OF RANGE REFERENCE UNITS LAB L501.0100 74-106 mg/dL High GLU 109 Result Comment: Fasting Glucose result from 100 to 125 mg/dL suggests IMPAIRED HOMEOSTASIS per A.D.A. criteria. Please note revised GLUCOSE reference range effective 2017. LAB L501.1000 7-18 mg/dL High BUN 20 LAB L501.1100 0.55-1.02 mg/dL Normal CREAT,SERUM 0.90 Result Comment: The validity of the calculated GFR AND GFRAA in patients over 70 years has not been determined. Clinical correlation is essential. LAB L501.1110 >60 mL/min Normal EST GFR 68 Result Comment: Non- GFR Calc LAB L501.1115 >60 mL/min Normal EST GFR - AA 82 Result Comment: GFR Calc LAB L501.1255 ml/min Normal Estimated CRCL 63.01 LAB L501.1300 10-20 RATIO High BUN/CRE 22.1 LAB L501.2200 8.5-10 mg/dL Low .1 CA 8.0 LAB L501.5300 136-14 mmol/L Normal 5 NA 141 LAB L501.5600 3.5-5. mmol/L Normal 1 K 4.2 LAB L501.5900 98-107 mmol/L Normal CL 103 LAB L501.6100 21.0-3 mmol/L Normal 2.0 CO2 32.0 LAB L501.6200 5-15 Normal GAP 6 Performed By: #### L500.2500 #### [facility] [address] [place], [place], [address] PROTHROMBIN TIME W/INR Collected: 12/09/2017 Status: F Source: [place] 7:30 AM [facility] REPOSITORY TYPE CODE TESTS RESULT OUT OF RANGE REFERENCE UNITS LAB L300.4150 11.7-14.9 SECONDS High PROTIME 22.6 LAB L300.4200 Normal INR 2.0 Performed By: #### L300.3900 #### [facility] [address] [place], [address] Observed: 12/09/2017 Status: F Source: [place] CULTURE, DEEP WOUND 12:00 AM [facility] REPOSITORY Order Date: 03/24/17 Comments: COLLECTED IN OR-#1 DEBRIDED TISSUE RIGHT POST CALF Gram Stain Gram Stain 4+ Red Blood Cells 1+ Gram positive cocci Rare White Blood Cells Wound Culture RESULTS CALLED TO [place] 12/13/17 0843 [place] Rangel. Copy of report sent to Infection Control Printer [id number] 12/13/17 0843 ROSALINE. #3 There are no CLSI standards for interpretation of this Drug/Organism combination. ORGANISM 1: Proteus mirabilis Amount Growth Rare ORGANISM 2: Meth. resistant Staph. aureus Amount Growth 1+ ORGANISM 3: Corynebacterium minutissimum Amount Growth 1+ Proteus mirabilis: REACTION Amoxacillin/Clavulanic Acid $ <=2 S Ampicillin $ <=2 S Ampicillin/Sulbactam $ <=2 S Cefazolin $ <=4 S Cefepime $ <=1 S Ceftriaxone $ <=1 S Ciprofloxacin $ <=0.25 S Ertapenim $$$ <=0.5 S Gentamicin $ <=1 S Levofloxacin $ <=0.12 S Piperacillin/Tazobactam $$ <=4 S Tobramycin $ <=1 S Trimethoprim/Sulfametho $ <=20 S (NF) indicates non-formulary drug at [facility]. Approval by Infectious Disease Specialist required before non-formulary drugs may be ordered and/or dispensed. Meth. resistant Staph. aureus: REACTION Benzylpenicillin NF >=0.5 R Cefoxitin *NF + Clindamycin $$ <=0.25 R Inducable Clindamycin Resistan + Erythromycin $ >=8 R Gentamicin $ <=0.5 S Levofloxacin $ >=8 R Linezolid $$$$ 2 S Oxacillin NF >=4 R Tigecycline $$$$ <=0.12 S Rifampin $$ <=0.5 S Tetracycline NF <=1 S Trimethoprim/Sulfametho $ <=10 S Vancomycin $ <=0.5 S (NF) indicates non-formulary drug at [facility]. Approval by Infectious Disease Specialist required before non-formulary drugs may be ordered and/or dispensed. * CLSI guidelines does not recommend testing of cephalosporins. This interpretation is deduced from Beta-lactam/penicillin results. Cult, Anaerobic Studies have confirmed that Anaerobic Gram Positive Cocci are routinely susceptible to: Penicillin/Ampicillin, Ampicillin/Sulbactam, Piperacillin/Tazobactam, Cefoxatin, Ertapenem, Imipenem, Meropenem and Metronidazole and vary in resistance to: Clindamycin and Moxifloxacin. ORGANISM 1: Anaerobic cocci Performed By: #### M100.1500 #### [facility] [address] [place], [address] Observed: 12/09/2017 Status: F Source: [place] CULTURE, DEEP WOUND 12:00 AM [facility] REPOSITORY Order Date: 03/24/17 Comments: RIGHT POSTERIOR THIGH Gram Stain Gram Stain No White Blood Cells 4+ Red Blood Cells No organisms seen Wound Culture RESULTS CALLED TO BHAVESH 12/12/17 0856 Richa Rangel. Copy of report sent to Infection Control Printer [id number] 12/12/17 0856 ROSALINE. ORGANISM 1: Meth. resistant Staph. aureus Amount Growth Very Rare ORGANISM 2: Streptococcus agalactiae (B) Amount Growth Very Rare Meth. resistant Staph. aureus: REACTION Benzylpenicillin NF >=0.5 R Cefoxitin *NF + Clindamycin $$ <=0.25 R Inducable Clindamycin Resistan + Erythromycin $ >=8 R Gentamicin $ <=0.5 S Levofloxacin $ >=8 R Linezolid $$$$ 2 S Oxacillin NF >=4 R Tigecycline $$$$ <=0.12 S Rifampin $$ <=0.5 S Tetracycline NF <=1 S Trimethoprim/Sulfametho $ <=10 S Vancomycin $ <=0.5 S (NF) indicates non-formulary drug at [facility]. Approval by Infectious Disease Specialist required before non-formulary drugs may be ordered and/or dispensed. * CLSI guidelines does not recommend testing of cephalosporins. This interpretation is deduced from Beta-lactam/penicillin results. Streptococcus agalactiae (B): REACTION Ampicillin $ <=0.25 S Benzylpenicillin NF <=0.06 S Ceftriaxone $ <=0.12 S Clindamycin $$ <=0.25 S Inducable Clindamycin Resistan - Linezolid $$$$ <=2 S Vancomycin $ 0.5 S (NF) indicates non-formulary drug at [facility]. Approval by Infectious Disease Specialist required before non-formulary drugs may be ordered and/or dispensed. * CLSI guidelines does not recommend testing of cephalosporins. This interpretation is deduced from Beta-lactam/penicillin results. Cult, Anaerobic No anaerobic bacteria isolated. Performed By: #### M100.1500, M600.1900 #### [facility] [address] [place], [address] Observed: 12/09/2017 Status: F Source: [place] KAUFMAN, FUNGUS W/ 12:00 [facility] [id number] REPOSITORY Comments: RIGHT POSTERIOR THIGH Is this test to exclude patient from TB Isolation? N Cu,[id number] TESTING PERFORMED AT [facility]. ORIGINAL REPORT ON FILE IN LAB CONTAINS ADDITIONAL TEST SITE INFORMATION. CUF No yeast or mold isolated after [address] 8136 TESTING PERFORMED AT [facility]. ORIGINAL REPORT ON FILE IN LAB CONTAINS ADDITIONAL TEST SITE INFORMATION. Fungus Stain No yeast or mold observed. Performed By: #### M100.1500, M600.1900 #### [facility] [address] [place], [address] Observed: 12/09/2017 Status: F Source: [place] KAUFMAN, DEEP WOUND 12:00 [facility] REPOSITORY Order Date: 03/24/17 Comments: LEFT POSTERIOR LEG Gram Stain Gram Stain No organisms seen Rare White Blood Cells 4+ Red Blood Cells Wound Culture RESULTS CALLED TO BHAVESH 12/12/17 0859 Richa Rangel. Copy of report sent to Infection Control Printer [id number] 12/12/17 [facility]859 [facility] ORGANISM 1: Meth. resistant Staph. aureus Amount Growth 1+ ORGANISM 2: Streptococcus agalactiae (B) Amount Growth Rare ORGANISM 3: Proteus mirabilis Amount Growth Very Rare Meth. resistant Staph. aureus: REACTION Benzylpenicillin NF >=0.5 R Cefoxitin *NF + Clindamycin $$ <=0.25 R Inducable Clindamycin Resistan + Erythromycin $ 1 R Gentamicin $ <=0.5 S Levofloxacin $ >=8 R Linezolid $$$$ 2 S Oxacillin NF >=4 R Tigecycline $$$$ <=0.12 S Rifampin $$ <=0.5 S Tetracycline NF <=1 S Trimethoprim/Sulfametho $ <=10 S Vancomycin $ 1 S (NF) indicates non-formulary drug at [facility]. Approval by Infectious Disease Specialist required before non-formulary drugs may be ordered and/or dispensed. * CLSI guidelines does not recommend testing of cephalosporins. This interpretation is deduced from Beta-lactam/penicillin results. Streptococcus agalactiae (B): REACTION Ampicillin $ <=0.25 S Benzylpenicillin NF <=0.06 S Ceftriaxone $ <=0.12 S Clindamycin $$ <=0.25 S Inducable Clindamycin Resistan - Linezolid $$$$ <=2 S Vancomycin $ 0.5 S (NF) indicates non-formulary drug at [facility]. Approval by Infectious Disease Specialist required before non-formulary drugs may be ordered and/or dispensed. * CLSI guidelines does not recommend testing of cephalosporins. This interpretation is deduced from Beta-lactam/penicillin results. Proteus mirabilis: REACTION Amoxacillin/Clavulanic Acid $ <=2 S Ampicillin $ <=2 S Ampicillin/Sulbactam $ <=2 S Cefazolin $ <=4 S Cefepime $ <=1 S Ceftriaxone $ <=1 S Ciprofloxacin $ <=0.25 S Ertapenim $$$ <=0.5 S Gentamicin $ <=1 S Levofloxacin $ <=0.12 S Piperacillin/Tazobactam $$ <=4 S Tobramycin $ <=1 S Trimethoprim/Sulfametho $ <=20 S (NF) indicates non-formulary drug at [facility]. Approval by Infectious Disease Specialist required before non-formulary drugs may be ordered and/or dispensed. Cult, Anaerobic Studies have confirmed that Anaerobic Gram Positive Cocci are routinely susceptible to: Penicillin/Ampicillin, Ampicillin/Sulbactam, Piperacillin/Tazobactam, Cefoxatin, Ertapenem, Imipenem, Meropenem and Metronidazole and vary in resistance to: Clindamycin and Moxifloxacin. ORGANISM 1: Anaerobic cocci Performed By: #### M100.1500 #### [facility] [place], [address] DEBRIDED TISSUE Observed: 12/09/2017 Status: F Source: [place] 12:00 AM [facility] REPOSITORY Patient: VICKI HERNANDEZ : 1960 (57/F) Acct Num: [id number] Phys: Arabella Fontana MD Unit Num: [id number] Loc: MS3 [id number] Specimen: [id number] Received: 12/09/17 - 4 Spec Type: ELISSA TISS TISSUES TISSUES: A. Soft tissues, NOS B. Soft tissues, NOS C. Soft tissues, NOS GROSS DESCRIPTION A - Received in fixative is one container labeled with the patient's name and designated debrided tissue right posterior calf. The specimen consists of five variable size pieces of guzmán-light brown skin measuring in aggregate 22 x 10 x 3 cm. The skin surface shows area of ulceration. No mass lesion is identified. Focally, the specimen cuts with gritty sensation. Assistant Professor In Family Studies sections are submitted in two cassettes after decalcification. B - Received in fixative is one container labeled with the patient's name and designated right posterior thigh. The specimen consists of a piece of skin with underlying tissue measuring 11 x 8 x 6 cm. A focal area of ulceration is noted. No mass lesion is identified. Assistant Professor In Family Studies sections are submitted in two cassettes. C - Received in fixative is one container labeled with the patient's name and designated left posterior leg. The specimen consists of an irregular piece of guzmán-white skin with underlying tissue measuring 23 x 7 cm and up to 2 cm in thickness. Multiple areas of ulceration are noted. No mass lesion is identified. Assistant Professor In Family Studies sections are submitted in two cassettes. / SJ:cornelius TC:2 CPT: 46888 x3, 81555 HEADER OPERATION: Incision and drainage abscess, MRSA ulcers, posterior legs PRE-OP DIAGNOSIS: Chronic bilateral lower extremity venostasis associated with venostasis dermatitis TISSUE SUBMITTED: A Debrided tissue, right posterior calf, B Right posterior thigh, C Left posterior calf MICROSCOPIC DESCRIPTION Slides are reviewed. MICROSCOPIC DIAGNOSIS A. Skin and soft tissue, right posterior calf, excision: Ulceration with associated acute and chronic inflammation and granulation. Fat necrosis with associated dystrophic microcalcifications and focal ossification. B. Skin and soft tissue, right posterior thigh, excision: Ulceration with associated acute and chronic inflammation and granulation. Focal fat necrosis. C. Skin and soft tissue, left posterior calf, excision: Ulceration with associated acute and chronic inflammation and dystrophic microcalcifications. Rare vessel wall microcalcifications. AM:cornelius 12/15/17 Signed Miah [facility] 12/15/17 <signature on file> Performed By: #### PDEB #### [facility] [address] [place], [address] Observed: 12/09/2017 Status: F Source: [place] W/ 12:00 [facility] [id number] REPOSITORY Comments: LEFT POSTERIOR LEG Is this test to exclude patient from TB Isolation? N Cu,[id number] TESTING PERFORMED AT [facility]. ORIGINAL REPORT ON FILE IN LAB CONTAINS ADDITIONAL TEST SITE INFORMATION. CUF No yeast or mold isolated after [address] 8136 TESTING PERFORMED AT [facility]. ORIGINAL REPORT ON FILE IN LAB CONTAINS ADDITIONAL TEST SITE INFORMATION. Fungus Stain No yeast or mold observed. Performed By: #### M600.1900 #### [place] [facility] [address] [place], [address] Observed: 12/09/2017 Status: F Source: [place] W/ 12:00 [facility] [id number] REPOSITORY Comments: COLLECTED IN OR- #1 DEBRIDED TISSUE RIGHT POST JUMANA Is this test to exclude patient from TB Isolation? N Cu,[id number] TESTING PERFORMED AT [facility]. ORIGINAL REPORT ON FILE IN LAB CONTAINS ADDITIONAL TEST SITE INFORMATION. CUF No yeast or mold isolated after [address] 8136 TESTING PERFORMED AT [facility]. ORIGINAL REPORT ON FILE IN LAB CONTAINS ADDITIONAL TEST SITE INFORMATION. Fungus Stain No yeast or mold observed. Performed By: #### M600.1900 #### [facility] [address] [place], [place], [address] BEDSIDE GLUCOSE Collected: 12/08/2017 Status: F Source: [place] 11:14 PM [facility] REPOSITORY TYPE CODE TESTS RESULT OUT OF REFERENCE UNITS RANGE LAB L501.080 70-110 mg/dL High BEDSIDE GLU 171 Result Comment: MANAGEMENT OF PATIENT CARE PER NURSING PROTOCOL Performed By: #### L501.080 #### [facility] Point of Care [address] [place] [address] BEDSIDE GLUCOSE Collected: 12/08/2017 Status: F Source: [place] 5:39 PM [facility] REPOSITORY TYPE CODE TESTS RESULT OUT OF RANGE REFERENCE UNITS LAB L501.080 70-110 mg/dL Normal BEDSIDE GLU 92 Result Comment: MANAGEMENT OF PATIENT CARE PER NURSING PROTOCOL Performed By: #### L501.080 #### [facility] Point of Care [address] [place] [address] BEDSIDE GLUCOSE Collected: 12/08/2017 Status: F Source: [place] 1:01 PM [facility] REPOSITORY TYPE CODE TESTS RESULT OUT OF RANGE REFERENCE UNITS LAB L501.080 70-110 mg/dL Normal BEDSIDE GLU 83 Result Comment: MANAGEMENT OF PATIENT CARE PER NURSING PROTOCOL Performed By: #### L501.080 #### [facility] Point of Care [address] [place] [address] CXR FOR LINE PLACEMENT Observed: 12/08/2017 Status: F Source: [place] 12:11 PM [facility] REPOSITORY [facility] Imaging Services [address] [place] [address] CXR for Line Placement MR#: [id number] Acct: [id number] Name: VICKI HERNANDEZ Rep #: [id number] : 1960 F 57 From: Kerry Bose MD PCP: Rajesh Holman MD Status: ADM IN Study: CXR for Line Placement Date of Exam: 12/08/17 Exam# [id number] Ordering Dr: Alejo Martinez MD XR Chest 1 View INDICATION: PICC LINE PLACEMENT, RIGHT COMPARISON: December 06, 2017 TECHNIQUE: Portable chest FINDINGS: A right-sided PICC line has been placed, tip is difficult to appreciated due to underpenetration, however, the tip appears to be extending to the level of the SVC. No evidence of pneumothorax. The heart size is enlarged, unchanged from previous exam. Central pulmonary vascularity appears prominent, unchanged from previous exam. No significant pleural effusion seen on the portable view. RAD/CXR for Line Placement IMPRESSION: Right sided PICC line appears properly positioned. Findings otherwise stable with cardiomegaly and pulmonary vascular congestion. at 1354 Reported and signed by: Kerry Bose MD Electronically Signed: Kerry Bose MD at 13:53 EDT Tel , Service support , CC: Alejo Martinez MD; Rajesh Holman MD Dog Licenser: Signed EXTREMITY LOWER Observed: 12/08/2017 Status: F Source: [place] WITHOUT CONTRA 9:00 AM [facility] REPOSITORY [facility] Imaging Services [address] [place] [address] Extremity Lower without Contra MR#: [id number] Acct: [id number] Name: VICKI HRENANDEZ Rep #: [id number] : 1960 F 57 From: Oh Wellington MD PCP: Rajesh Holman MD Status: ADM IN Study: Extremity Lower without Contra Date of Exam: 12/08/17 Exam# [id number] Ordering Dr: Thomas Carrasco MD STUDY: CT SCAN LOWER EXTREMITY RIGHT REASON FOR EXAM: Female, 57 years old. 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 RADIATION DOSAGE (If Supplied By Facility): CTDIvol = ( 34.39 ) mGy, DLP = ( 1755.25 ) mGycm. Individualized dose optimization techniques were used for this CT.? TECHNIQUE: Multiple axial tomographic images are obtained from the level of the hip joint down to the ankle joint without intravenous contrast administration. COMPARISON: None. FINDINGS: Diffuse subcutaneous edema in the medial aspect of the right upper thigh extending to the mid thigh with overlying skin thickening. Diffuse varicosities and multiple calcifications within the soft tissues. Dermatomyositis should be ruled out. CT/Extremity Lower without Contra IMPRESSION: Diffuse subcutaneous edema and skin thickening along the medial aspect of the right buttock down to the mid leg. Venous varicosities as well as multiple soft tissue calcifications. Electronically Signed: Oh [place] MD at 10:31 EDT Tel [phone], Service support , CC: Thomas Carrasco; Rajesh Holman MD Dog Licenser: Signed EXTREMITY LOWER Observed: 12/08/2017 Status: F Source: [place] WITHOUT CONTRA 8:36 AM [facility] REPOSITORY [facility] Imaging Services [address] [place] [address] Extremity Lower without Contra MR#: [id number] Acct: [id number] Name: VICKI HERNANDEZ Rep #: [id number] : 1960 F 57 From: Oh Wellington MD PCP: Rajesh Holman MD Status: ADM IN Study: Extremity Lower without Contra Date of Exam: 12/08/17 Exam# [id number] Ordering Dr: Alejo Martinez MD STUDY: CT SCAN LOWER EXTREMITY LEFT REASON FOR EXAM: Female, 57 years old. History of MRSA with ulcerations in the lower extremity. RADIATION DOSAGE (If Supplied By Facility): CTDIvol = ( 41.22 ) mGy, DLP = ( 4716.02 ) mGycm. Individualized dose optimization techniques were used for this CT.? TECHNIQUE: Multiple axial tomographic images were obtained from the hip joint down to the ankle without intravenous contrast administration. Coronal and sagittal reconstruction was obtained as well. COMPARISON: None. FINDINGS: There is diffuse soft tissue edema in the medial aspect of the proximal left thigh. This extends into the midline. This extends down to the level of the mid thigh. There is evidence of vascular calcification and phleboliths within the venous structures. Dilated venous varicosities. There is evidence of skin thickening along the posterior aspect of the left lower extremity especially along the medial aspect. Focal ulceration is seen in the posterior aspect of the knee joint. CT/Extremity Lower without Contra IMPRESSION: Diffuse left lower extremity edema worse along the medial aspect of the left thigh extending down to the level of the knee joint with the ulceration along the posterior aspect of the knee joint. Phleboliths are seen within the venous structures as well as varicosities. Vascular calcification. Electronically Signed: Oh [place] MD at 10:20 EDT Tel [phone], Service support , CC: Alejo Martinez MD; Rajesh Holman MD Dog Licenser: Signed BEDSIDE GLUCOSE Collected: 12/08/2017 Status: F Source: [place] 8:28 AM [facility] REPOSITORY TYPE CODE TESTS RESULT OUT OF REFERENCE UNITS RANGE LAB L501.080 70-110 mg/dL High BEDSIDE GLU 121 Result Comment: MANAGEMENT OF PATIENT CARE PER NURSING PROTOCOL Performed By: #### L501.080 #### [facility] Point of Care [address] [place] [address] PROGRESS Observed: 12/08/2017 Status: COMPLETED Source: [place] 7:25 AM [facility] REPOSITORY HNO ID: [id number] Author: Melvina (Rn) Sung Service: (none) Author Type: Registered Nurse Type: Progress Notes Filed: 12/08/2017 7:26 AM Note Text: PRIMARY CARE COORDINATION FOLLOW-UP NOTE Provider Action/FYI Daughter left message, pt will be taken to surgery this week for debridement of leg wounds and at discharge will be transferred to a SNF Patient identified by name and date of . YES Spoke to Zakiya kwong Summary: Daughter left message, pt will be taken to surgery this week for debridement of leg wounds and at discharge will be transferred to a SNF [employer] Manager plan for next outreach: Will follow up at discharge Signature Melvina Almaraz RN December 08, 2017 BASIC METABOLIC Collected: 12/08/2017 Status: F Source: [place] PROFILE (BMP) 5:20 AM [facility] REPOSITORY TYPE CODE TESTS RESULT OUT OF RANGE REFERENCE UNITS LAB L501.0100 74-106 mg/dL High GLU 123 Result Comment: Fasting Glucose result from 100 to 125 mg/dL suggests IMPAIRED HOMEOSTASIS per A.D.A. criteria. Please note revised GLUCOSE reference range effective 2017. LAB L501.1000 7-18 mg/dL High BUN 20 LAB L501.1100 0.55-1.02 mg/dL Normal CREAT,SERUM 0.87 Result Comment: The validity of the calculated GFR AND GFRAA in patients over 70 years has not been determined. Clinical correlation is essential. LAB L501.1110 >60 mL/min Normal EST GFR 71 Result Comment: Non- GFR Calc LAB L501.1115 >60 mL/min Normal EST GFR - AA 85 Result Comment: GFR Calc LAB L501.1255 ml/min Normal Estimated CRCL 65.18 LAB L501.1300 10-20 RATIO High BUN/CRE 22.9 LAB L501.2200 8.5-10 mg/dL Low .1 CA 8.2 LAB L501.5300 136-14 mmol/L Normal 5 NA 137 LAB L501.5600 3.5-5. mmol/L Normal 1 K 4.4 LAB L501.5900 98-107 mmol/L Normal CL 103 LAB L501.6100 21.0-3 mmol/L Normal 2.0 CO2 28.0 LAB L501.6200 5-15 Normal GAP 6 Performed By: #### L500.2500 #### [facility] [address] [place], [address] PARTIAL THROMBOPLAST Collected: 12/08/2017 Status: F Source: [place] TIME 5:20 AM [facility] REPOSITORY TYPE CODE TESTS RESULT OUT OF REFERENCE UNITS RANGE LAB L300.4310 24.1-36.2 Seconds High PTT 43.6 Performed By: #### L300.4310, L300.3900 #### [facility] [address] [place], [place], [address] PROTHROMBIN TIME W/INR Collected: 12/08/2017 Status: F Source: [place] 5:20 AM [facility] REPOSITORY TYPE CODE TESTS RESULT OUT OF RANGE REFERENCE UNITS LAB L300.4150 11.7-14.9 SECONDS High PROTIME 20.6 LAB L300.4200 Normal INR 1.8 Performed By: #### L300.4310, L300.3900 #### [facility] [address] [place], [address] CBC W/DIFF, AUTOMATED Collected: 12/08/2017 Status: F Source: [place] 5:20 AM [facility] REPOSITORY TYPE CODE TESTS RESULT OUT OF RANGE REFERENCE UNITS LAB L100.1000 4.4-11.0 K/mm3 Normal WBC 7.8 LAB L100.1200 4.2-5.4 M/mm3 Low RBC 3.18 LAB L100.1300 12.0-15.0 g/dl Low HGB 9.3 LAB L100.1400 37-47 % Low HCT 30.6 LAB L100.1500 81-99 fL Normal MCV 96.2 LAB L100.1600 27.0-32.0 pg Normal MCH 29.2 LAB L100.1700 32-36 g/gl Low MCHC 30.4 LAB L100.1810 11.6-14.6 % High RDW CV 18.9 LAB L100.1820 35.1-43.9 fl High RDW SD 64.5 LAB L100.1900 150-450 K/mm3 Normal PLT 282 LAB L100.2000 6.2-12.0 fl Normal MPV 9.5 LAB L100.2100 47-70 % Normal NEUT% 65.3 LAB L100.2200 19-41 % Normal LY% 22.6 LAB L100.2300 0-10 % Normal MONO% 8.2 LAB L100.2400 0-5 % Normal EO% 3.7 LAB L100.2500 0-1 % Normal BASO% 0.1 LAB L100.2550 0.0-0.9 % Normal IM GRAN % 0.100 Result Comment: IG% - Immature Granulocytes (promyelocytes, myelocytes and metamyelocytes) > 1% indicates that a LEFT SHIFT is Present. LAB L100.2620 2.0-7.7 X10 3/uL Normal Absolute Neut 5.1 LAB L100.2720 0.83-4.51 X10 3/ul Normal Absolute Lymph 1.77 Performed By: #### L100.0100 #### [facility] [address] [place], [address] HEMOGLOBIN A1C Collected: 12/08/2017 Status: F Source: [place] 5:20 AM [facility] REPOSITORY TYPE CODE TESTS RESULT OUT OF RANGE REFERENCE UNITS LAB L501.9985 4.2-6.3 % High HGB A1C 11.3 Performed By: #### L501.9985 #### [facility] [address] [place], [address] CNPTOUTREACH Observed: 12/08/2017 Status: COMPLETED Source: [place] 12:00 AM [facility] REPOSITORY Patient Outreach (FAMPWS) VICKI HERNANDEZ ([id number]) 1960 F Date Time Provider Department 12/08/17 MELVINA ALMARAZ (RN) FAMPWS During your visit today, we recorded the following information about you: Melvina Almaraz RN 12/08/2017 7:26 AM Signed PRIMARY CARE COORDINATION FOLLOW-UP NOTE Provider Action/FYI Daughter left message, pt will be taken to surgery this week for debridement of leg wounds and at discharge will be transferred to a SNF Patient identified by name and date of . YES Spoke to Zakiya kwong Summary: Daughter left message, pt will be taken to surgery this week for debridement of leg wounds and at discharge will be transferred to a SNF [employer] plan for next outreach: Will follow up at discharge Signature Melvina Almaraz RN December 08, 2017 Allergies As of Date: 12/08/2017 Noted Allergy Reaction CODEINE 11/19/2010 14 - Other: See Comments Comments: Itching, vomitting LATEX 11/19/2010 14 - Other: See Comments Comments: Itching,hives,dyspnea PHENOBARBITAL 11/19/2010 14 - Other: See Comments Comments: Nausea, itching TALWIN (PENTAZOCINE LACTATE) 11/19/2010 1 - Mental Status Change Comments: Hallucinations TREE NUT 02/07/2015 10 - Anaphylaxis Date Reviewed: 06/08/2017 Reviewed by: Karena Shaikh Cadd Drafter - Fully Assessed 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 5 p* INSULIN SYRINGE-NEEDLE U-100 * USE ONE SYRINGE FOR EACH INSU* INSULIN LISPRO (U-100) 100 UN* Inject 14 Units subcutaneousl* CITALOPRAM 40 MG TABLET Take 1 tablet by mouth once d* EXENATIDE 5 MCG/DOSE (250 MCG* INJECT 5 mcg SUBCUTANEOUSLY T* LANTUS SOLOSTAR U-100 INSULIN* Inject 46 units subcutaneousl* WARFARIN 2 MG TABLET 10mg Tu and and 11 * IPRATROPIUM-ALBUTEROL 0.5 MG-* Inhale 3 mL as instructed kris* ALBUTEROL SULFATE HFA 90 MCG/* 2 puffs every 4-6 hrs PRN SOB* BUDESONIDE-FORMOTEROL HFA 160* Inhale 2 Puffs as instructed * COMPOUNDED PRESCRIPTION Oxygen for home @ 2L per BIPA* TORSEMIDE 20 MG TABLET TAKE ONE TABLET BY MOUTH TWIC* NADOLOL 40 MG TABLET TAKE THREE TABLETS BY MOUTH D* GLIPIZIDE 10 MG TABLET Take 1 tablet by mouth twice * TORSEMIDE 20 MG TABLET Take 1 tablet by mouth twice * ALBUTEROL SULFATE 1.25 MG/3 M* USE ONE vial in NEBULIZER KRIS* DIGOXIN 250 MCG TABLET Take 1 tablet by mouth once d* POLYETHYLENE GLYCOL 3350 17 G* Take 1 Packet by mouth as nee* CPAP ACETAMINOPHEN ER 650 MG TABLE* Take 650 mg by mouth every 8 * Problem List As Of Date 12/08/2017 Noted Resolved Diabetes (HCC) [E11.9] INVALID FOR* More... Atrial fibrillation (HCC) [I48.91] INVALID FOR* Priority: A More... Lymphedema [I89.0] INVALID FOR* Priority: B More... Heart failure, systolic and diastolic, acute on*INVALID FOR*12/31/2014 More... Obesity, morbid, BMI 50 or higher (HCC) [E66.01]INVALID FOR* More... Hypertension [I10] INVALID FOR* More... HUNTER (obstructive sleep apnea) [G47.33] INVALID FOR* More... Pulmonary HTN (HCC) [I27.20] INVALID FOR* More... Atrial fibrillation with RVR (HCC) [I48.91] INVALID FOR*09/23/2016 More... Heart failure, diastolic, acute (HCC) [I50.31] INVALID FOR* More... Counseling and coordination of care [Z71.89] INVALID FOR*04/12/2015 More... Monoclonal gammopathy [D47.2] INVALID FOR* Empty sella turcica (HCC) [E23.6] INVALID FOR* More... Uncontrolled type 2 diabetes mellitus without c*INVALID FOR*09/23/2016 Encounter Status:Closed by MELVINA ALMARAZ on 12/09/17 BEDSIDE GLUCOSE Collected: 12/07/2017 Status: F Source: [place] 10:05 PM [facility] REPOSITORY TYPE CODE TESTS RESULT OUT OF REFERENCE UNITS RANGE LAB L501.080 70-110 mg/dL High BEDSIDE GLU 165 Result Comment: MANAGEMENT OF PATIENT CARE PER NURSING PROTOCOL Performed By: #### L501.080 #### [place] [facility] Point of Care [address] [place], [place] [id number] BEDSIDE GLUCOSE Collected: 12/07/2017 Status: F Source: [place] 5:40 PM [facility] REPOSITORY TYPE CODE TESTS RESULT OUT OF REFERENCE UNITS RANGE LAB L501.080 70-110 mg/dL High BEDSIDE GLU 214 Result Comment: MANAGEMENT OF PATIENT CARE PER NURSING PROTOCOL Performed By: #### L501.080 #### [facility] Point of Care [address] [place], [place] [id number] BEDSIDE GLUCOSE Collected: 12/07/2017 Status: F Source: [place] 1:05 PM [facility] REPOSITORY TYPE CODE TESTS RESULT OUT OF REFERENCE UNITS RANGE LAB L501.080 70-110 mg/dL High BEDSIDE GLU 139 Result Comment: MANAGEMENT OF PATIENT CARE PER NURSING PROTOCOL Performed By: #### L501.080 #### [facility] Point of Care [address] [place], [place] [id number] PROGRESS Observed: 12/07/2017 Status: COMPLETED Source: [place] 8:23 AM [facility] REPOSITORY HNO ID: [id number] Author: Melvina Emanuel) Sung Service: (none) Author Type: Registered Nurse Type: Progress Notes Filed: 12/07/2017 8:24 AM Note Text: Patient admitted to [facility] for LE cellulitis and IV antibiotics Melvina Almaraz RN December 07, 2017 8:23 AM BEDSIDE GLUCOSE Collected: 12/07/2017 Status: F Source: [place] 7:15 AM [facility] REPOSITORY TYPE CODE TESTS RESULT OUT OF REFERENCE UNITS RANGE LAB L501.080 70-110 mg/dL High BEDSIDE GLU 144 Result Comment: MANAGEMENT OF PATIENT CARE PER NURSING PROTOCOL Performed By: #### L501.080 #### [facility] Point of Care [address] [place], [place] [id number] PROTHROMBIN TIME W/INR Collected: 12/07/2017 Status: F Source: [place] 5:20 AM [facility] REPOSITORY TYPE CODE TESTS RESULT OUT OF RANGE REFERENCE UNITS LAB L300.4150 11.7-14.9 SECONDS High PROTIME 20.6 LAB L300.4200 Normal INR 1.8 Performed By: #### L300.3900 #### [facility] [address] [place], [place], [address] BASIC METABOLIC Collected: 12/07/2017 Status: F Source: [place] PROFILE (BMP) 5:20 AM [facility] REPOSITORY TYPE CODE TESTS RESULT OUT OF RANGE REFERENCE UNITS LAB L501.0100 74-106 mg/dL High GLU 129 Result Comment: Fasting Glucose result greater than or equal to 126 mg/dL suggests DIABETES MELLITUS per A.D.A. criteria. Please note revised GLUCOSE reference range effective 2017. LAB L501.1000 7-18 mg/dL High BUN 19 LAB L501.1100 0.55-1.02 mg/dL Normal CREAT,SERUM 0.75 Result Comment: The validity of the calculated GFR AND GFRAA in patients over 70 years has not been determined. Clinical correlation is essential. LAB L501.1110 >60 mL/min Normal EST GFR 84 Result Comment: Non- GFR Calc LAB L501.1115 >60 mL/min Normal EST GFR - AA 102 Result Comment: GFR Calc LAB L501.1255 ml/min Normal Estimated CRCL 75.61 LAB L501.1300 10-20 RATIO High BUN/CRE 25.4 LAB L501.2200 8.5-10 mg/dL Low .1 CA 8.0 LAB L501.5300 136-14 mmol/L Normal 5 NA 138 LAB L501.5600 3.5-5. mmol/L Normal 1 K 3.9 LAB L501.5900 98-107 mmol/L Normal CL 104 LAB L501.6100 21.0-3 mmol/L Normal 2.0 CO2 28.0 LAB L501.6200 5-15 Normal GAP 6 Performed By: #### L500.2500 #### [facility] [address] [place], [place], [address] CBC W/DIFF, AUTOMATED Collected: 12/07/2017 Status: F Source: [place] 5:20 AM [facility] REPOSITORY TYPE CODE TESTS RESULT OUT OF RANGE REFERENCE UNITS LAB L100.1000 4.4-11.0 K/mm3 Normal WBC 7.6 LAB L100.1200 4.2-5.4 M/mm3 Low RBC 3.23 LAB L100.1300 12.0-15.0 g/dl Low HGB 9.3 LAB L100.1400 37-47 % Low HCT 30.1 LAB L100.1500 81-99 fL Normal MCV 93.2 LAB L100.1600 27.0-32.0 pg Normal MCH 28.8 LAB L100.1700 32-36 g/gl Low MCHC 30.9 LAB L100.1810 11.6-14.6 % High RDW CV 18.9 LAB L100.1820 35.1-43.9 fl High RDW SD 64.2 LAB L100.1900 150-450 K/mm3 Normal PLT 245 LAB L100.2000 6.2-12.0 fl Normal MPV 9.2 LAB L100.2100 47-70 % Normal NEUT% 61.9 LAB L100.2200 19-41 % Normal LY% 26.4 LAB L100.2300 0-10 % Normal MONO% 8.5 LAB L100.2400 0-5 % Normal EO% 3.0 LAB L100.2500 0-1 % Normal BASO% 0.1 LAB L100.2550 0.0-0.9 % Normal IM GRAN % 0.100 Result Comment: IG% - Immature Granulocytes (promyelocytes, myelocytes and metamyelocytes) > 1% indicates that a LEFT SHIFT is Present. LAB L100.2620 2.0-7.7 X10 3/uL Normal Absolute Neut 4.7 LAB L100.2720 0.83-4.51 X10 3/ul Normal Absolute Lymph 2.01 Performed By: #### L100.0100 #### [facility] [address] [place], [address] BEDSIDE GLUCOSE Collected: 12/06/2017 Status: F Source: [place] 10:28 PM [facility] REPOSITORY TYPE CODE TESTS RESULT OUT OF REFERENCE UNITS RANGE LAB L501.080 70-110 mg/dL High BEDSIDE GLU 280 Result Comment: MANAGEMENT OF PATIENT CARE PER NURSING PROTOCOL Performed By: #### L501.080 #### [facility] Point of Care [address] [place], [place] [address] HISTORY AND PHYSICAL Observed: 12/06/2017 Status: F Source: [place] EXAM 9:13 PM [facility] REPOSITORY [facility] Medical Records Department [address] [place] [address] History and Physical 12/06/17 1747 MR#: [id number] Acct: [id number] Name: VICKI HERNANDEZ Rep #: [id number] : 1960 57 From: Irasema Ortiz MD PCP: Rajesh Holman MD Status: ADM IN Y Location: MS3 [id number] Problem List (1) Cellulitis of leg, right Status: Acute History of Present Illness Date of Admission: 12/06/17 Chief Complaint: Right leg redness, bilateral leg excoriations The patient is a 57 year old F who is morbidly obese past medical history of chronic atrial fibrillation, congestive heart failure with preserved left ventricular function, chronic lower extremity venostasis with recurrent cellulitis who presented to the emergency room today with redness on the right leg as well as with excoriated lesions on both lower extremities that started about a week ago recently getting worse. She denies any fever or chills. Emergency room swab from her legs was positive for MRSA PCR was given a dose of IV vancomycin and admitted to the hospital for further management. Past Medical History Past Medical History (Chronic Problems): Chronic Problems (Last Updated 08/26/17 @ 10:40 by Erin Carter) Pulmonary hypertension (Chronic) Morbid obesity (Chronic) Congestive heart failure (Chronic) Chronic atrial fibrillation (Chronic) Type 2 diabetes mellitus (Chronic) Hypertension (Chronic) Allergies latex Allergy (Verified 03/26/15 11:04) Itching pentazocine lactate [From Talwin] Allergy (Verified 03/26/15 11:04) Itching phenobarbital Allergy (Verified 03/26/15 11:04) Itching tree nut Allergy (Verified 03/26/15 11:04) Anaphylaxis codeine Adverse Reaction (Verified 03/26/15 11:04) Upset Stomach Home Medications: Ambulatory Orders Medication Instructions Recorded Citalopram [Celexa] 40 mg PO DAILY 03/20/15 Digoxin [Digitek] 250 mcg PO DAILY 03/20/15 Exenatide [Bytank (BK)] 5 mcg SC BIDCM 03/20/15 Surgical History: hysterectomy, tonsillectomy, - - 2 section. Psychiatric History: No pertinent psych hx CAR SCRUBBER History: No pertinent CAR SCRUBBER history Smoking Status: Former smoker - *Family History Maternal History Items: No pertinent history Paternal History Items: No pertinent history VTE Information - Inpt Only VTE Present on Admission: No VTE Mechan Device Prophylaxis: SCD's VTE Pharm Prophylaxis ordered?: Yes - Physical Exam Vital Signs Temp Pulse Resp BP Pulse Ox 98.5 F 110 H 18 123/69 H 96 12/06/17 14:23 12/06/17 17:38 12/06/17 17:38 12/06/17 17:38 12/06/17 15:44 Assessment/Plan 1. Right leg cellulitis and multiple small bilateral leg wounds; will continue on IV antibiotics and consult ET nurse to assist with local wound care. 2. 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 3. Chronic atrial fibrillation; he is on Cardizem, digoxin and Coumadin, we will continue these medications without change. 4. Morbid obesity; weight loss recommended. 5. DM is type II; will place on regular insulin sliding scale. 6. Chronic congestive heart failure with preserved left ventricular function/pulmonary hypertension; supplemental oxygen diuresis. 7. Ambulatory dysfunction due to morbid obesity; PT/OT, possible long-term placement. 12/06/172112 <Electronically signed by Irasema Ortiz MD> Date Irasema Ortiz MD Cosigner Signature: Date (if applicable) CC: Irasema Ortiz MD; Rajesh Holman MD Signed EMERGENCY DEPARTMENT Observed: 12/06/2017 Status: F Source: [place] SUMMARY 5:13 PM [facility] REPOSITORY [facility] Medical Records Department [address] [place] [address] Emergency Department Summary 12/06/17 1710 MR#: [id number] Acct: [id number] Name: VICKI HERNANDEZ Rep #: [id number] : 1960 57 From: Maisha Dumont DO PCP: Rajesh Holman MD Status: REG ER - ER Visit Summary Date of Service: 12/06/17 Chief Complaint: [Redness and swelling to right lower extremity] History of Present Illness: The patient is a 57 F [presents to the emergency department with excoriated lesions to the right lower extremity that started about a week ago. Patient states the wounds have been weeping and the leg is now red and painful to the touch. Patient has had a history of cellulitis in the past. Patient denies any fevers. Patient is on home oxygen at night only. Patient denies any shortness of breath out of the ordinary.] Physical Examination: [HEENT-PERRLA, EOMI. Cranial nerves II through XII grossly intact. TMs clear. Mucous membranes moist. No adenopathy. Cardiovascular-irregularly irregular with a 2 out of 6 systolic ejection murmur noted Lungs- good aeration bilaterally with few rales noted in the bases bilaterally. No accessory muscle use or retractions. Abdomen-normoactive bowel sounds, soft, nontender, no rebound or rigidity, no peritoneal signs. Extremities-intact 4, normal range of motion, normal pulses, atraumatic]. Patient has multiple excoriated lesions to the right lower extremity below the knee that are weeping. Patient has diffuse erythema and cellulitis. Patient has +2 edema both lower extremities. Test Results: [CBC with differential obtained showed a white count of 8.2, hemoglobin 10, hematocrit 33, platelets 263. Chemistries unremarkable. Glucose was 284. BUN was 24 and creatinine was 1.05. INR was 1.8. BNP was 122. Chest x- ray showed cardiomegaly and mild CHF. Cultures of the right leg wounds ordered as well as MRSA.] Emergency Department Course and Treatment: [Patient was started on vancomycin and was medicated with morphine.] Treatment Plan: [Patient will be admitted for IV antibiotics] Disposition: [Admit] Impression: [Cellulitis right lower extremity CHF with hypoxemia] This note was generated with [employer] dictation software. It may contain incorrect words, spelling, and punctuation that were not noted in review of the chart prior to signing ED Disposition - Plan for ED Patient: Chief Complaint: Edema Referrals: aRjesh Holman MD [Primary Care Provider] - What to do if you have Problems For any increased pain, shortness of breath, bleeding, nausea or vomiting, chest pain, or any unexpected problems, contact your Primary Care Provider. Call [facility] ([phone]) or report to the closest Emergency Room. Call 911 if necessary. 12/06/17 1713 <Electronically signed by Maisha Dumont DO> Date Maisha Dumont DO Cosigner Signature (If Indicated): Date CC: Rajesh Holman MD Observed: 12/06/2017 Status: F Source: [place] CULTURE, BLOOD (WB) 3:40 PM [facility] REPOSITORY BC No growth in 5 days. Performed By: #### M200.1000 #### [facility] [address] [place], [address] CBC W/DIFF, AUTOMATED Collected: 12/06/2017 Status: F Source: [place] 3:20 PM [facility] REPOSITORY TYPE CODE TESTS RESULT OUT OF RANGE REFERENCE UNITS LAB L100.1000 4.4-11.0 K/mm3 Normal WBC 8.2 LAB L100.1200 4.2-5.4 M/mm3 Low RBC 3.58 LAB L100.1300 12.0-15.0 g/dl Low HGB 10.4 LAB L100.1400 37-47 % Low HCT 33.4 LAB L100.1500 81-99 fL Normal MCV 93.3 LAB L100.1600 27.0-32.0 pg Normal MCH 29.1 LAB L100.1700 32-36 g/gl Low MCHC 31.1 LAB L100.1810 11.6-14.6 % High RDW CV 18.7 LAB L100.1820 35.1-43.9 fl High RDW SD 62.8 LAB L100.1900 150-450 K/mm3 Normal PLT 263 LAB L100.2000 6.2-12.0 fl Normal MPV 9.4 LAB L100.2100 47-70 % High NEUT% 77.3 LAB L100.2200 19-41 % Low LY% 16.6 LAB L100.2300 0-10 % Normal MONO% 4.5 LAB L100.2400 0-5 % Normal EO% 1.3 LAB L100.2500 0-1 % Normal BASO% 0.2 LAB L100.2550 0.0-0.9 % Normal IM GRAN % 0.100 Result Comment: IG% - Immature Granulocytes (promyelocytes, myelocytes and metamyelocytes) > 1% indicates that a LEFT SHIFT is Present. LAB L100.2620 2.0-7.7 X10 3/uL Normal Absolute Neut 6.4 LAB L100.2720 0.83-4.51 X10 3/ul Normal Absolute Lymph 1.37 Performed By: #### L100.0100 #### [facility] [address] [place], [place], [address] BASIC METABOLIC Collected: 12/06/2017 Status: F Source: [place] PROFILE (BMP) 3:20 PM [facility] REPOSITORY TYPE CODE TESTS RESULT OUT OF RANGE REFERENCE UNITS LAB L501.0100 74-106 mg/dL High GLU 284 Result Comment: Glucose result greater than or equal to 200 mg/dL suggests DIABETES MELLITUS per A.D.A. criteria. Please note revised GLUCOSE reference range effective 2017. LAB L501.1000 7-18 mg/dL High BUN 24 LAB L501.1100 0.55-1.02 mg/dL High CREAT,SERUM 1.05 Result Comment: The validity of the calculated GFR AND GFRAA in patients over 70 years has not been determined. Clinical correlation is essential. LAB L501.1110 >60 mL/min Low EST GFR 57 Result Comment: Non- GFR Calc LAB L501.1115 >60 mL/min Normal EST GFR - AA 69 Result Comment: GFR Calc LAB L501.1255 ml/min Normal Estimated CRCL 54.01 LAB L501.1300 10-20 RATIO High BUN/CRE 22.9 LAB L501.2200 8.5-10 mg/dL Low .1 CA 8.0 LAB L501.5300 136-14 mmol/L Normal 5 NA 139 LAB L501.5600 3.5-5. mmol/L Normal 1 K 4.5 LAB L501.5900 98-107 mmol/L Normal CL 103 LAB L501.6100 21.0-3 mmol/L Normal 2.0 CO2 30.0 LAB L501.6200 5-15 Normal GAP 6 Performed By: #### L500.2500 #### [facility] [address] [place], [address] PROTHROMBIN TIME W/INR Collected: 12/06/2017 Status: F Source: [place] 3:20 PM [facility] REPOSITORY TYPE CODE TESTS RESULT OUT OF RANGE REFERENCE UNITS LAB L300.4150 11.7-14.9 SECONDS High PROTIME 21.1 LAB L300.4200 Normal INR 1.8 Performed By: #### L300.3900 #### [facility] [address] [place], [address] BNP,B-TYPE NATRIURETIC Collected: 12/06/2017 Status: F Source: [place] PEPTIDE 3:20 PM [facility] REPOSITORY TYPE CODE TESTS RESULT OUT OF RANGE REFERENCE UNITS LAB L503.6620 0-100 pg/mL High B-TYPE 122.7 RODERICK PEP Performed By: #### L503.6620 #### [facility] [place], [address] MRSA WOUND DNA BY Collected: 12/06/2017 Status: F Source: [place] PCR 3:20 PM [facility] REPOSITORY Order Comment: Order Date: 12/06/17 TYPE CODE TESTS RESULT OUT OF REFERENCE UNITS RANGE LAB L8200.1100 Negative High MRSA POSITIVE RESULT Result Comment: CALLED TO MINAL 12/06/171911 BY [facility] LAB L8200.1150 Negative High SA RESULT POSITIVE Performed By: #### L8200.1075 #### [facility] [place], [address] Observed: 12/06/2017 Status: F Source: [place] CULTURE, WOUND 3:20 PM [facility] REPOSITORY Order Date: 12/06/17 Gram Stain Gram Stain No White Blood Cells No Epithelial cells 1+ Gram positive cocci Wound Culture ORGANISM 1: Proteus mirabilis Amount Growth 1+ ORGANISM 2: Staphylococcus aureus Amount Growth 3+ ORGANISM 3: Streptococcus agalactiae (B) Amount Growth 2+ Proteus mirabilis: REACTION Ampicillin $ <=2 I Ampicillin/Sulbactam $ <=2 S Cefazolin $ <=4 S Cefepime $ <=1 S Ceftriaxone $ <=1 S Ciprofloxacin $ <=0.25 S Ertapenim $$$ <=0.5 S Gentamicin $ <=1 S Levofloxacin $ <=0.12 S Piperacillin/Tazobactam $$ <=4 S Tobramycin $ <=1 S Trimethoprim/Sulfametho $ <=20 S (NF) indicates non-formulary drug at [facility]. Approval by Infectious Disease Specialist required before non-formulary drugs may be ordered and/or dispensed. Staphylococcus aureus: REACTION Benzylpenicillin NF >=0.5 R Cefoxitin *NF - Clindamycin $$ <=0.25 S Inducable Clindamycin Resistan - Erythromycin $ >=8 R Gentamicin $ <=0.5 S Levofloxacin $ 4 I Linezolid $$$$ 2 S Moxifloxicin *NF 1 S Oxacillin NF <=0.25 S Tigecycline $$$$ <=0.12 S Rifampin $$ <=0.5 S Tetracycline NF <=1 S Trimethoprim/Sulfametho $ <=10 S Vancomycin $ 1 S (NF) indicates non-formulary drug at [facility]. Approval by Infectious Disease Specialist required before non-formulary drugs may be ordered and/or dispensed. * CLSI guidelines does not recommend testing of cephalosporins. This interpretation is deduced from Beta-lactam/penicillin results. Streptococcus agalactiae (B): REACTION Ampicillin $ <=0.25 S Benzylpenicillin NF <=0.06 S Ceftriaxone $ <=0.12 S Clindamycin $$ <=0.25 S Inducable Clindamycin Resistan - Linezolid $$$$ <=2 S Vancomycin $ 0.5 S (NF) indicates non-formulary drug at [facility]. Approval by Infectious Disease Specialist required before non-formulary drugs may be ordered and/or dispensed. * CLSI guidelines does not recommend testing of cephalosporins. This interpretation is deduced from Beta-lactam/penicillin results. Performed By: #### M100.1400 #### [facility] [place], [address] Observed: 12/06/2017 Status: F Source: [place] CULTURE, BLOOD (WB) 3:20 PM [facility] REPOSITORY BC No growth in 5 days. Performed By: #### M200.1000 #### [facility] [address] [place], [place], [address] CHEST 1 VIEW Observed: 12/06/2017 Status: F Source: [place] (PORTABLE) 3:13 PM [facility] REPOSITORY [facility] Imaging Services [address] [place] [address] Chest 1 View (Portable) MR#: [id number] Acct: [id number] Name: VICKI HERNANDEZ Rep #: [id number] : 1960 F 57 From: [place] Wellington MD PCP: Rajesh Holman MD Status: PRE ER Study: Chest 1 View (Portable) Date of Exam: 12/06/17 Exam# [id number] Ordering Dr: Maisha Dumont DO STUDY: X-RAY CHEST REASON FOR EXAM: Female, 57 years old. Hypoxia. TECHNIQUE: Single AP portable view of the chest. COMPARISON: Comparison is made with prior examination dated December 31, 2016. FINDINGS: There is evidence of vascular congestion and mild degree of CHF. There is no demonstrated pleural abnormality. There is moderate cardiac enlargement. Normal mediastinum and han. Normal visualized pulmonary arteries. There is atherosclerotic calcification of the aortic arch with tortuosity. There are diffuse degenerative changes of the visualized thoracic spine. Normal visualized ribs, clavicles, and shoulders. There is no demonstrated abnormality of the visualized soft tissue structures of the upper abdomen. RAD/Chest 1 View (Portable) IMPRESSION: Cardiomegaly. Mild degree of CHF. Electronically Signed: Oh Wellington MD at 15:29 EDT Tel [phone], Service support , CC: Maisha Holman MD Dog Licenser: Signed PROGRESS Observed: 12/06/2017 Status: COMPLETED Source: [place] 2:34 PM [facility] REPOSITORY HNO ID: [id number] Author: Melvina Emanuel) Sung Service: (none) Author Type: Registered Nurse Type: Progress Notes Filed: 12/06/2017 2:36 PM Note Text: PRIMARY CARE COORDINATION FOLLOW-UP NOTE Provider Action/FYI Pt in ED triage at [facility] ER Complaints: Edema, Bleeding foot and couldn't get in car to see PCP Pulse ox RA-88% P-110 Patient identified by name and date of . YES Spoke to Zakiya pineda Concerns: Pt was trying to get in the car to come to PCP and couldn't get in. She pushed Medical Alert and was transported to [facility] ED [employer] plan for next outreach: Will follow up with ER/hosp Signature Melvina Almaraz RN December 06, 2017 CNPTOUTREACH Observed: 12/06/2017 Status: COMPLETED Source: [place] 12:00 AM [facility] REPOSITORY Patient Outreach (FAMPWS) VICKI HERNANDEZ ([id number]) 1960 F Date Time Provider Department 12/06/17 MELVINA ALMARAZ) DEANNAWS During your visit today, we recorded the following information about you: Melvina Almaraz RN 12/06/2017 2:36 PM Signed PRIMARY CARE COORDINATION FOLLOW-UP NOTE Provider Action/FYI Pt in ED triage at [facility] ER Complaints: Edema, Bleeding foot and couldn't get in car to see PCP Pulse ox RA-88% P-110 Patient identified by name and date of . YES Spoke to Zakiya pineda Concerns: Pt was trying to get in the car to come to PCP and couldn't get in. She pushed Medical Alert and was transported to [facility] ED [employer] Manager plan for next outreach: Will follow up with ER/hosp Signature Melvina Almaraz RN December 06, 2017 Melvina Almaraz RN 12/07/2017 8:24 AM Signed Patient admitted to [facility] for LE cellulitis and IV antibiotics Melvina Almaraz RN December 07, 2017 8:23 AM Allergies As of Date: 12/06/2017 Noted Allergy Reaction CODEINE 11/19/2010 14 - Other: See Comments Comments: Itching, vomitting LATEX 11/19/2010 14 - Other: See Comments Comments: Itching,hives,dyspnea PHENOBARBITAL 11/19/2010 14 - Other: See Comments Comments: Nausea, itching TALWIN (PENTAZOCINE LACTATE) 11/19/2010 1 - Mental Status Change Comments: Hallucinations TREE NUT 02/07/2015 10 - Anaphylaxis Date Reviewed: 06/08/2017 Reviewed by: Karena Shaikh Cadd Drafter - Fully Assessed Reason for Visit: Bed Control Specialist - Patient Initiated [3614] Prescriptions as of 12/06/2017 Sig: TRAMADOL 50 MG TABLET Take 1 tablet by mouth every * GABAPENTIN 400 MG CAPSULE Take 1 capsule by mouth four * WARFARIN 1 MG TABLET 10mg MWF and 11mg other days* WARFARIN 10 MG TABLET 10mg MWF and 11mg other days * METFORMIN 500 MG TABLET TAKE TWO TABLETS BY MOUTH TWI* DILTIAZEM SR 120 MG 24 HR CAP Take 1 capsule by mouth once * LISINOPRIL 10 MG TABLET Take 1 tablet by mouth once d* PEN NEEDLE, DIABETIC 29 GAUGE* Use one needle per dose. 5 p* INSULIN SYRINGE-NEEDLE U-100 * USE ONE SYRINGE FOR EACH INSU* INSULIN LISPRO (U-100) 100 UN* Inject 14 Units subcutaneousl* CITALOPRAM 40 MG TABLET Take 1 tablet by mouth once d* EXENATIDE 5 MCG/DOSE (250 MCG* INJECT 5 mcg SUBCUTANEOUSLY T* LANTUS SOLOSTAR U-100 INSULIN* Inject 46 units subcutaneousl* WARFARIN 2 MG TABLET 10mg and and 11 * IPRATROPIUM-ALBUTEROL 0.5 MG-* Inhale 3 mL as instructed kris* ALBUTEROL SULFATE HFA 90 MCG/* 2 puffs every 4-6 hrs PRN SOB* BUDESONIDE-FORMOTEROL HFA 160* Inhale 2 Puffs as instructed * COMPOUNDED PRESCRIPTION Oxygen for home @ 2L per BIPA* TORSEMIDE 20 MG TABLET TAKE ONE TABLET BY MOUTH TWIC* NADOLOL 40 MG TABLET TAKE THREE TABLETS BY MOUTH D* GLIPIZIDE 10 MG TABLET Take 1 tablet by mouth twice * TORSEMIDE 20 MG TABLET Take 1 tablet by mouth twice * ALBUTEROL SULFATE 1.25 MG/3 M* USE ONE vial in NEBULIZER KRIS* DIGOXIN 250 MCG TABLET Take 1 tablet by mouth once d* POLYETHYLENE GLYCOL 3350 17 G* Take 1 Packet by mouth as nee* CPAP ACETAMINOPHEN ER 650 MG TABLE* Take 650 mg by mouth every 8 * Problem List As Of Date 12/06/2017 Noted Resolved Diabetes (HCC) [E11.9] INVALID FOR* More... Atrial fibrillation (HCC) [I48.91] INVALID FOR* Priority: A More... Lymphedema [I89.0] INVALID FOR* Priority: B More... Heart failure, systolic and diastolic, acute on*INVALID FOR*12/31/2014 More... Obesity, morbid, BMI 50 or higher (HCC) [E66.01]INVALID FOR* More... Hypertension [I10] INVALID FOR* More... HUNTER (obstructive sleep apnea) [G47.33] INVALID FOR* More... Pulmonary HTN (HCC) [I27.20] INVALID FOR* More... Atrial fibrillation with RVR (HCC) [I48.91] INVALID FOR*09/23/2016 More... Heart failure, diastolic, acute (HCC) [I50.31] INVALID FOR* More... Counseling and coordination of care [Z71.89] INVALID FOR*04/12/2015 More... Monoclonal gammopathy [D47.2] INVALID FOR* Empty sella turcica (HCC) [E23.6] INVALID FOR* More... Uncontrolled type 2 diabetes mellitus without c*INVALID FOR*09/23/2016 Encounter Status:Closed by MELVINA ALMARAZ on 12/07/17 PROGRESS Observed: 12/03/2017 Status: COMPLETED Source: [place] 10:02 AM [facility] REPOSITORY [facility] ID: [id number] Author: Rajesh Holman Service: (none) Author Type: Physician Type: Progress Notes Filed: 12/03/2017 4:05 PM Note Text: OAS website checked and validated. All prescriptions have been APPROPRIATELY filled. No suspicious activity was identified.- 12/03/2017 by Rajesh Holman MD Call in rx. Please tell her to not use at the same time as lorazepam. Can interact. PROGRESS Observed: 12/03/2017 Status: COMPLETED Source: [place] 9:52 AM [facility] REPOSITORY [facility] ID: [id number] Author: Melvina Emanuel) Sung Service: (none) Author Type: Registered Nurse Type: Progress Notes Filed: 12/03/2017 9:59 AM Note Text: PRIMARY CARE COORDINATION FOLLOW-UP NOTE Provider Action/FYI Pt willing to take Tramadol, states it's worked for her before PLEASE ORDER AND SEND TO [facility] IN [place] She will come in to see PCP on Wednesday Patient identified by name and date of . YES Spoke to patient Concerns: Instructed pt to be seen in Urgent Care/ER if legs get red and hot (states she's had cellulitis before and knows what it looks like) Also informed PCP can call in Tramadol, states she's had that before and it works. Discussed with PCP while patient on Hold, instructed if pt gets redness or hot to touch on LE she needs to be seen, can go to Urgent Care. He can call in Tramadol TC from patient, states bilateral LE pain is constant at 8- 10/10. Tylenol and increased gabapentin isn't helping. States she has scabbed places where she had blisters previously but no erythema. Asking if she can have something stronger for pain to get her through the weekend because she can't get a ride into PCP until Wednesday. [employer] Manager plan for next outreach: Will follow up 12/06 Signature Melvina Almaraz RN December 03, 2017 CNPTOUTREACH Observed: 12/03/2017 Status: COMPLETED Source: [place] 12:00 AM [facility] REPOSITORY Patient Outreach ([facility]WS) VICKI HERNANDEZ ([id number]) 1960 F Date Time Provider Department 12/03/17 [facility]MARAZ[facility] visit today, we recorded the following information about you: Melvina Almaraz RN 12/03/2017 9:59 AM Addendum PRIMARY CARE COORDINATION FOLLOW-UP NOTE Provider Action/FYI Pt willing to take Tramadol, states it's worked for her before PLEASE ORDER AND SEND TO [facility] IN [place] She will come in to see PCP on Wednesday Patient identified by name and date of . YES Spoke to patient Concerns: Instructed pt to be seen in Urgent Care/ER if legs get red and hot (states she's had cellulitis before and knows what it looks like) Also informed PCP can call in Tramadol, states she's had that before and it works. Discussed with PCP while patient on Hold, instructed if pt gets redness or hot to touch on LE she needs to be seen, can go to Urgent Care. He can call in Tramadol TC from patient, states bilateral LE pain is constant at 8- 10/10. Tylenol and increased gabapentin isn't helping. States she has scabbed places where she had blisters previously but no erythema. Asking if she can have something stronger for pain to get her through the weekend because she can't get a ride into PCP until Wednesday. [employer] Manager plan for next outreach: Will follow up 12/06 Signature Melvina Almaraz RN December 03, 2017 Rajesh Holman MD 12/03/2017 4:05 PM Signed OARRS website checked and validated. All prescriptions have been APPROPRIATELY filled. No suspicious activity was identified.- 12/03/2017 by Rajesh Holman MD Call in rx. Please tell her to not use at the same time as lorazepam. Can interact. Allergies As of Date: 12/03/2017 Noted Allergy Reaction CODEINE 11/19/2010 14 - Other: See Comments Comments: Itching, vomitting LATEX 11/19/2010 14 - Other: See Comments Comments: Itching,hives,dyspnea PHENOBARBITAL 11/19/2010 14 - Other: See Comments Comments: Nausea, itching TALWIN (PENTAZOCINE LACTATE) 11/19/2010 1 - Mental Status Change Comments: Hallucinations TREE NUT 02/07/2015 10 - Anaphylaxis Date Reviewed: 06/08/2017 Reviewed by: Karena Shaikh Cadd Drafter - Fully Assessed Reason for Visit: Bed Control Specialist - Patient Initiated [3614] Primary Visit Diagnosis:Venous stasis ulcer, unspecified site, unspecified ulcer stage, unspecified whether varicose veins present ([facility]) [I83.009, L97.211] Order(s):traMADol (ULTRAM) 50 mg tabletTake 1 tablet by mouth every 4 hours as needed for up to 5 days.Disp: 20 tabletRfl: 0 Prescriptions as of 12/03/2017 Sig: TRAMADOL 50 MG TABLET Take 1 tablet by mouth every * GABAPENTIN 400 MG CAPSULE Take 1 capsule by mouth four * WARFARIN 1 MG TABLET 10mg MWF and 11mg other days* WARFARIN 10 MG TABLET 10mg MWF and 11mg other days * METFORMIN 500 MG TABLET TAKE TWO TABLETS BY MOUTH TWI* DILTIAZEM SR 120 MG 24 HR CAP Take 1 capsule by mouth once * LISINOPRIL 10 MG TABLET Take 1 tablet by mouth once d* PEN NEEDLE, DIABETIC 29 GAUGE* Use one needle per dose. 5 p* INSULIN SYRINGE-NEEDLE U-100 * USE ONE SYRINGE FOR EACH INSU* INSULIN LISPRO (U-100) 100 UN* Inject 14 Units subcutaneousl* CITALOPRAM 40 MG TABLET Take 1 tablet by mouth once d* EXENATIDE 5 MCG/DOSE (250 MCG* INJECT 5 mcg SUBCUTANEOUSLY T* LANTUS SOLOSTAR U-100 INSULIN* Inject 46 units subcutaneousl* WARFARIN 2 MG TABLET 10mg and and * IPRATROPIUM-ALBUTEROL 0.5 MG-* Inhale 3 mL as instructed kris* ALBUTEROL SULFATE HFA 90 MCG/* 2 puffs every 4-6 hrs PRN SOB* BUDESONIDE-FORMOTEROL HFA 160* Inhale 2 Puffs as instructed * COMPOUNDED PRESCRIPTION Oxygen for home @ 2L per BIPA* TORSEMIDE 20 MG TABLET TAKE ONE TABLET BY MOUTH TWIC* NADOLOL 40 MG TABLET TAKE THREE TABLETS BY MOUTH D* GLIPIZIDE 10 MG TABLET Take 1 tablet by mouth twice * TORSEMIDE 20 MG TABLET Take 1 tablet by mouth twice * ALBUTEROL SULFATE 1.25 MG/3 M* USE ONE vial in NEBULIZER KRIS* DIGOXIN 250 MCG TABLET Take 1 tablet by mouth once d* POLYETHYLENE GLYCOL 3350 17 G* Take 1 Packet by mouth as nee* CPAP ACETAMINOPHEN ER 650 MG TABLE* Take 650 mg by mouth every 8 * Problem List As Of Date 12/03/2017 Noted Resolved Diabetes (HCC) [E11.9] INVALID FOR* More... Atrial fibrillation (HCC) [I48.91] INVALID FOR* Priority: A More... Lymphedema [I89.0] INVALID FOR* Priority: B More... Heart failure, systolic and diastolic, acute on*INVALID FOR*12/31/2014 More... Obesity, morbid, BMI 50 or higher (HCC) [E66.01]INVALID FOR* More... Hypertension [I10] INVALID FOR* More... HUNTER (obstructive sleep apnea) [G47.33] INVALID FOR* More... Pulmonary HTN (HCC) [I27.20] INVALID FOR* More... Atrial fibrillation with RVR (HCC) [I48.91] INVALID FOR*09/23/2016 More... Heart failure, diastolic, acute (HCC) [I50.31] INVALID FOR* More... Counseling and coordination of care [Z71.89] INVALID FOR*04/12/2015 More... Monoclonal gammopathy [D47.2] INVALID FOR* Empty sella turcica ([facility]) [E23.6] INVALID FOR* More... Uncontrolled type 2 diabetes mellitus without c*INVALID FOR*09/23/2016 Prescriptions ordered this encounter Disp Refills Start End TRAMADOL 50 MG TABLET 20 t* 0 12/03/2017 12/08/2017 Class: Print RX Route: ORAL Sig: Take 1 tablet by mouth every 4 hours as needed for up to 5 days. Encounter Status:Closed by MELVINA ALMARAZ on 12/03/17 PROGRESS Observed: 11/30/2017 Status: COMPLETED Source: [place] 3:32 PM [facility] REPOSITORY O ID: [id number] Author: Melvina Emanuel) Sung Service: (none) Author Type: Registered Nurse Type: Progress Notes Filed: 11/30/2017 3:38 PM Note Text: TC from patient, instructed to take an additional 20 mg of torsemide once daily x 2 days and call with update. May increase gabapentin to 400 mg 4x times Daily ORDER PENDED FOR YOUR APPROVAL Continue Tylenol with gabapentin, don't exceed 3000 mg daily No change in insulin, BS may improve with better pain control Pt verbalized above instructions with teach back Melvina Almaraz RN November 30, 2017 3:38 PM PROGRESS Observed: 11/30/2017 Status: COMPLETED Source: [place] 12:05 PM [facility] RE[facility]IT[facility] ID: [id number] Author: Rajesh Holman Service: (none) Author Type: Physician Type: Progress Notes Filed: 11/30/2017 5:11 PM Note Text: Take additional 20 mg of torsemide once a day for two days. Call with update after PROGRESS Observed: 11/30/2017 Status: COMPLETED Source: [place] 11:40 AM [facility] REPOSITORY [facility] ID: [id number] Author: Melvina Emanuel) Sung Service: (none) Author Type: Registered Nurse Type: Progress Notes Filed: 11/30/2017 11:56 AM Note Text: PRIMARY CARE COORDINATION FOLLOW-UP NOTE Provider Action/FYI Lymphedema neuropathy pain uncontrolled due to open areas on legs from back brush when bathing. Gabapentin not helping since open areas Wasn't able to wear compression hose. Increased LE Edema No cough, chest pain or SOB SHOULD PT TEMPORARILY INCREASE DIURETICS (TORSEMIDE 20 MG bid) BS in AM ranging 130-140's with highest in AM 170 BS in PM ranging 140-160's with highest 230 (highs are due to diet indiscretions) Taking: LANTUS 46 units subcutaneously once daily BYETTA 5 mcg TWICE DAILY WITH MEALS HUMALOG 14 Units w MEALS metFORMIN 500 mg TWO TABLETS TWICE DAILY Pt has PCP appt on 12/16 Offered sooner appt, pt declined Patient identified by name and date of . YES Spoke to patient Concerns: Pt scrubbed her legs with a new back brush 2 weeks ago. Had multiple open weeping areas on legs Opened areas now dry and scabbed, no erythema, no fever WASN'T ABLE TO WEAR COMPRESSION STOCKINGS DUE TO OPEN AREAS UNTIL TODAY LEGS MORE SWOLLEN, R>L LYMPHEDEMA NEUROPATHY PAIN HAS BEEN SEVERE. LAST NIGHT PAIN WAS 10/10, DIFFICULTY SLEEPING AND PT CRYING Gabapentin 400 mg TID was helping before the open areas BS in AM ranging 130-140's with highest in AM 170 BS in PM ranging 140-160's with highest 230 (highs are due to diet indiscretions) [employer] Manager plan for next outreach: Will follow up 2 weeks Signature Melvina Almaraz RN November 30, 2017 CNPTOUTREACH Observed: 11/30/2017 Status: COMPLETED Source: [place] 12:00 AM [facility] REPOSITORY Patient Outreach ([facility]AMPWS) HERNANDEZVICKI ([id number]) 1960 F Date Time Provider Department 11/30/17 MELVINA ALMARAZ (RN) [facility] During your visit today, we recorded the following information about you: Melvina Almaraz RN 11/30/2017 11:56 AM Addendum PRIMARY CARE COORDINATION FOLLOW-UP NOTE Provider Action/FYI Lymphedema neuropathy pain uncontrolled due to open areas on legs from back brush when bathing. Gabapentin not helping since open areas Wasn't able to wear compression hose. Increased LE Edema No cough, chest pain or SOB SHOULD PT TEMPORARILY INCREASE DIURETICS (TORSEMIDE 20 MG bid) BS in AM ranging 130-140's with highest in AM 170 BS in PM ranging 140-160's with highest 230 (highs are due to diet indiscretions) Taking: LANTUS 46 units subcutaneously once daily BYETTA 5 mcg TWICE DAILY WITH MEALS HUMALOG 14 Units w MEALS metFORMIN 500 mg TWO TABLETS TWICE DAILY Pt has PCP appt on 12/16 Offered sooner appt, pt declined Patient identified by name and date of . YES Spoke to patient Concerns: Pt scrubbed her legs with a new back brush 2 weeks ago. Had multiple open weeping areas on legs Opened areas now dry and scabbed, no erythema, no fever WASN'T ABLE TO WEAR COMPRESSION STOCKINGS DUE TO OPEN AREAS UNTIL TODAY LEGS MORE SWOLLEN, RANDgt;L LYMPHEDEMA NEUROPATHY PAIN HAS BEEN SEVERE. LAST NIGHT PAIN WAS 10/10, DIFFICULTY SLEEPING AND PT CRYING Gabapentin 400 mg TID was helping before the open areas BS in AM ranging 130-140's with highest in AM 170 BS in PM ranging 140-160's with highest 230 (highs are due to diet indiscretions) [employer] Manager plan for next outreach: Will follow up 2 weeks Signature Melvina Almaraz RN November 30, 2017 Rajesh Holman MD 11/30/2017 5:11 PM Signed Take additional 20 mg of torsemide once a day for two days. Call with update after Melvina Almaraz RN 11/30/2017 3:38 PM Addendum TC from patient, instructed to take an additional 20 mg of torsemide once daily x 2 days and call with update. May increase gabapentin to 400 mg 4x times Daily ORDER PENDED FOR YOUR APPROVAL Continue Tylenol with gabapentin, don't exceed 3000 mg daily No change in insulin, BS may improve with better pain control Pt verbalized above instructions with teach back Melvina Almaraz RN November 30, 2017 3:38 PM Allergies As of Date: 11/30/2017 Noted Allergy Reaction CODEINE 11/19/2010 14 - Other: See Comments Comments: Itching, vomitting LATEX 11/19/2010 14 - Other: See Comments Comments: Itching,hives,dyspnea PHENOBARBITAL 11/19/2010 14 - Other: See Comments Comments: Nausea, itching TALWIN (PENTAZOCINE LACTATE) 11/19/2010 1 - Mental Status Change Comments: Hallucinations TREE NUT 02/07/2015 10 - Anaphylaxis Date Reviewed: 06/08/2017 Reviewed by: Karena Shaikh Cadd Drafter - Fully Assessed Reason for Visit: Bed Control Specialist - Patient Initiated [2978] Primary Visit Diagnosis:Lymphedema [I89.0] Order(s):gabapentin (NEURONTIN) 400 mg capsuleTake 1 capsule by mouth four times daily.Disp: 120 capsuleRfl: 3 Prescriptions as of 11/30/2017 Sig: GABAPENTIN 400 MG CAPSULE Take 1 capsule by mouth four * WARFARIN 1 MG TABLET 10mg MWF and 11mg other days* WARFARIN 10 MG TABLET 10mg MWF and 11mg other days * METFORMIN 500 MG TABLET TAKE TWO TABLETS BY MOUTH TWI* DILTIAZEM SR 120 MG 24 HR CAP Take 1 capsule by mouth once * LISINOPRIL 10 MG TABLET Take 1 tablet by mouth once d* PEN NEEDLE, DIABETIC 29 GAUGE* Use one needle per dose. 5 p* INSULIN SYRINGE-NEEDLE U-100 * USE ONE SYRINGE FOR EACH INSU* INSULIN LISPRO (U-100) 100 UN* Inject 14 Units subcutaneousl* CITALOPRAM 40 MG TABLET Take 1 tablet by mouth once d* EXENATIDE 5 MCG/DOSE (250 MCG* INJECT 5 mcg SUBCUTANEOUSLY T* LANTUS SOLOSTAR U-100 INSULIN* Inject 46 units subcutaneousl* WARFARIN 2 MG TABLET 10mg Tu and Th and 11 * IPRATROPIUM-ALBUTEROL 0.5 MG-* Inhale 3 mL as instructed kris* ALBUTEROL SULFATE HFA 90 MCG/* 2 puffs every 4-6 hrs PRN SOB* BUDESONIDE-FORMOTEROL HFA 160* Inhale 2 Puffs as instructed * COMPOUNDED PRESCRIPTION Oxygen for home @ 2L per BIPA* TORSEMIDE 20 MG TABLET TAKE ONE TABLET BY MOUTH TWIC* NADOLOL 40 MG TABLET TAKE THREE TABLETS BY MOUTH D* GLIPIZIDE 10 MG TABLET Take 1 tablet by mouth twice * TORSEMIDE 20 MG TABLET Take 1 tablet by mouth twice * ALBUTEROL SULFATE 1.25 MG/3 M* USE ONE vial in NEBULIZER KRIS* DIGOXIN 250 MCG TABLET Take 1 tablet by mouth once d* POLYETHYLENE GLYCOL 3350 17 G* Take 1 Packet by mouth as nee* CPAP ACETAMINOPHEN ER 650 MG TABLE* Take 650 mg by mouth every 8 * Problem List As Of Date 11/30/2017 Noted Resolved Diabetes ([facility]) [E11.9] INVALID FOR* More... Atrial fibrillation ([facility]) [I48.91] INVALID FOR* Priority: A More... Lymphedema [I89.0] INVALID FOR* Priority: B More... Heart failure, systolic and diastolic, acute on*INVALID FOR*12/31/2014 More... Obesity, morbid, BMI 50 or higher ([facility]) [E66.01]INVALID FOR* More... Hypertension [I10] INVALID FOR* More... HUNTER (obstructive sleep apnea) [G47.33] INVALID FOR* More... Pulmonary HTN (HCC) [I27.20] INVALID FOR* More... Atrial fibrillation with RVR ([facility]) [I48.91] INVALID FOR*09/23/2016 More... Heart failure, diastolic, acute ([facility]) [I50.31] INVALID FOR* More... Counseling and coordination of care [Z71.89] INVALID FOR*04/12/2015 More... Monoclonal gammopathy [D47.2] INVALID FOR* Empty sella turcica ([facility]) [E23.6] INVALID FOR* More... Uncontrolled type 2 diabetes mellitus without c*INVALID FOR*09/23/2016 Prescriptions ordered this encounter Disp Refills Start End GABAPENTIN 400 MG CAPSULE 120 * 3 11/30/2017 11/30/2018 Route: ORAL Sig: Take 1 capsule by mouth four times daily. Medications Discontinued During This Encounter gabapentin (NEURONTIN) 400 mg capsule 90 c* 2 11/04/2017 11/30/2017 Cmt: This prescription was filled on 11/04/2017. Any refills authorized will be placed on file. Sig: TAKE ONE CAPSULE BY MOUTH THREE TIMES DAILY Disc: Reason for discontinue is not on file. Encounter Status:Closed by MELVINA ALMARAZ on 11/30/17 BERNADETTE Observed: 11/19/2017 Status: COMPLETED Source: [place] 12:00 AM [facility] REPOSITORY [facility] VICKI HERNANDEZ ([id number]) 1960 F Date Time Provider Department 11/19/17 RAJESH HOLMAN [facility] During your visit today, we recorded the following information about you: Sheyla Burden 11/19/2017 5:09 PM Signed Last INR: PT INR 1.9 11/19/2017 Current dose of coumadin is: 10 mg T, TH, WED, Sun and 11 mg all other days Previous INR (date and result): 11/10/2017 Result: 2.4 Sheyla Holman MD 11/19/2017 5:13 PM Signed Change to 10 mg on T, TH, Sund, 11 mg rest of the week. Recheck in one week. Adriana Dunaway Ma 11/19/2017 5:20 PM Signed Patient notified Allergies As of Date: 11/19/2017 Noted Allergy Reaction CODEINE 11/19/2010 14 - Other: See Comments Comments: Itching, vomitting LATEX 11/19/2010 14 - Other: See Comments Comments: Itching,hives,dyspnea PHENOBARBITAL 11/19/2010 14 - Other: See Comments Comments: Nausea, itching TALWIN (PENTAZOCINE LACTATE) 11/19/2010 1 - Mental Status Change Comments: Hallucinations TREE NUT 02/07/2015 10 - Anaphylaxis Date Reviewed: 06/08/2017 Reviewed by: Karena Shaikh Cadd Drafter - Fully Assessed Reason for Visit: Anticoagulation [8] Primary Visit Diagnosis:Atrial fibrillation, unspecified type (HCC) [I48.91] Order(s):PROTHROMBIN TIME/PT [SQPT] Order #: [id number] warfarin (COUMADIN) 1 mg [id number] T-Th-[place], 11mg other days or as directedDisp: 30 tabletRfl: 5 warfarin (COUMADIN) 10 mg [id number] T-Th-[place], 11mg other days or as directedDisp: 30 tabletRfl: 11 Prescriptions as of 11/19/2017 Sig: WARFARIN 1 MG TABLET 10mg T-Th-[place], 11mg other days* WARFARIN 10 MG TABLET 10mg T-Th-[place], 11mg other days* GABAPENTIN 400 MG CAPSULE TAKE ONE CAPSULE BY MOUTH THR* METFORMIN 500 MG TABLET TAKE TWO TABLETS BY MOUTH TWI* DILTIAZEM SR 120 MG 24 HR CAP Take 1 capsule by mouth once * LISINOPRIL 10 MG TABLET Take 1 tablet by mouth once d* PEN NEEDLE, DIABETIC 29 GAUGE* Use one needle per dose. 5 p* INSULIN SYRINGE-NEEDLE U-100 * USE ONE SYRINGE FOR EACH INSU* LORAZEPAM 1 MG TABLET Take 1 tablet by mouth three * INSULIN LISPRO (U-100) 100 UN* Inject 14 Units subcutaneousl* CITALOPRAM 40 MG TABLET Take 1 tablet by mouth once d* EXENATIDE 5 MCG/DOSE (250 MCG* INJECT 5 mcg SUBCUTANEOUSLY T* LANTUS SOLOSTAR U-100 INSULIN* Inject 46 units subcutaneousl* WARFARIN 2 MG TABLET 10mg and and * IPRATROPIUM-ALBUTEROL 0.5 MG-* Inhale 3 mL as instructed kris* ALBUTEROL SULFATE HFA 90 MCG/* 2 puffs every 4-6 hrs PRN SOB* BUDESONIDE-FORMOTEROL HFA 160* Inhale 2 Puffs as instructed * COMPOUNDED PRESCRIPTION Oxygen for home @ 2L per BIPA* TORSEMIDE 20 MG TABLET TAKE ONE TABLET BY MOUTH TWIC* NADOLOL 40 MG TABLET TAKE THREE TABLETS BY MOUTH D* GLIPIZIDE 10 MG TABLET Take 1 tablet by mouth twice * TORSEMIDE 20 MG TABLET Take 1 tablet by mouth twice * ALBUTEROL SULFATE 1.25 MG/3 M* USE ONE vial in NEBULIZER KRIS* DIGOXIN 250 MCG TABLET Take 1 tablet by mouth once d* POLYETHYLENE GLYCOL 3350 17 G* Take 1 Packet by mouth as nee* CPAP ACETAMINOPHEN ER 650 MG TABLE* Take 650 mg by mouth every 8 * Problem List As Of Date 11/19/2017 Noted Resolved Diabetes (HCC) [E11.9] INVALID FOR* More... Atrial fibrillation (HCC) [I48.91] INVALID FOR* Priority: A More... Lymphedema [I89.0] INVALID FOR* Priority: B More... Heart failure, systolic and diastolic, acute on*INVALID FOR*12/31/2014 More... Obesity, morbid, BMI 50 or higher (HCC) [E66.01]INVALID FOR* More... Hypertension [I10] INVALID FOR* More... HUNTER (obstructive sleep apnea) [G47.33] INVALID FOR* More... Pulmonary HTN (HCC) [I27.20] INVALID FOR* More... Atrial fibrillation with RVR (HCC) [I48.91] INVALID FOR*09/23/2016 More... Heart failure, diastolic, acute (HCC) [I50.31] INVALID FOR* More... Counseling and coordination of care [Z71.89] INVALID FOR*04/12/2015 More... Monoclonal gammopathy [D47.2] INVALID FOR* Empty sella turcica (HCC) [E23.6] INVALID FOR* More... Uncontrolled type 2 diabetes mellitus without c*INVALID FOR*09/23/2016 Prescriptions ordered this encounter Disp Refills Start End WARFARIN 1 MG TABLET 30 t* 5 11/19/2017 Class: Med Update Simg T-Th-Lofton, 11mg other days or as directed Cosign required by RAJESH HOLMAN[[id number]] WARFARIN 10 MG TABLET 30 t* 11 11/19/2017 Class: Med Update Simg T-Th-Lofton, 11mg other days or as directed Cosign required by RAJESH HOLMAN[[id number]] Medications Discontinued During This Encounter warfarin (COUMADIN) 1 mg tablet 30 t* 5 10/04/2017 11/19/2017 Simg T-Th-Sa-Lofotn, 11mg other days or as directed Disc: Reason for discontinue is not on file. warfarin (COUMADIN) 10 mg tablet 30 t* 11 10/04/2017 11/19/2017 Simg T-Th-Sa-Lofton, 11mg other days or as directed Disc: Reason for discontinue is not on file. Encounter Status:Closed by ADRIANA DUNAWAY MA on 11/19/17 PROGRESS Observed: 11/08/2017 Status: COMPLETED Source: [place] 2:09 PM [facility] REPOSITORY HNO ID: [id number] Author: Melvina (Evgeny) Sung Service: (none) Author Type: Registered Nurse Type: Progress Notes Filed: 11/10/2017 2:14 PM Note Text: PRIMARY CARE COORDINATION FOLLOW-UP NOTE Provider Action/FYI FYI Patient identified by name and date of . YES Spoke to patient Concerns: TC to [facility], informed pt canceled her appt w/PCP due to weather so she will not be bringing in the mdINR letter, states she will call pt. TC to [facility], informed of letter and insurance refusing any more INR tests. Zak states they only charge once a month fee. States he will check into it. Pt received letter from insurance stating she has exceeded the number of INR tests allowable. All other tests will be deemed not medically necessary and pt may be responsible for bill. Instructed pt to bring in letter to appt tomorrow. [employer] Manager plan for next outreach: Will follow up tomorrow Signature Melvina Almaraz RN November 08, 2017 CNPTOUTREACH Observed: 11/08/2017 Status: COMPLETED Source: [place] 12:00 AM [facility] REPOSITORY Patient Outreach ([facility]) VICKI HERNANDEZ ([id number]) 1960 F Date Time Provider Department 11/08/17 MELVINA ALMARAZ) AUDREY During your visit today, we recorded the following information about you: Melvina Almaraz RN 11/10/2017 2:14 PM Addendum PRIMARY CARE COORDINATION FOLLOW-UP NOTE Provider Action/FYI FYI Patient identified by name and date of . YES Spoke to patient Concerns: TC to [facility], informed pt canceled her appt w/PCP due to weather so she will not be bringing in the mdINR letter, states she will call pt. TC to [facility], informed of letter and insurance refusing any more INR tests. Zak states they only charge once a month fee. States he will check into it. Pt received letter from insurance stating she has exceeded the number of INR tests allowable. All other tests will be deemed not medically necessary and pt may be responsible for bill. Instructed pt to bring in letter to appt tomorrow. [employer] Manager plan for next outreach: Will follow up tomorrow Signature Melvina Almaraz RN November 08, 2017 Allergies As of Date: 11/08/2017 Noted Allergy Reaction CODEINE 11/19/2010 14 - Other: See Comments Comments: Itching, vomitting LATEX 11/19/2010 14 - Other: See Comments Comments: Itching,hives,dyspnea PHENOBARBITAL 11/19/2010 14 - Other: See Comments Comments: Nausea, itching TALWIN (PENTAZOCINE LACTATE) 11/19/2010 1 - Mental Status Change Comments: Hallucinations TREE NUT 02/07/2015 10 - Anaphylaxis Date Reviewed: 06/08/2017 Reviewed by: Karena Shaikh Cadd Drafter - Fully Assessed Reason for Visit: Bed Control Specialist - Patient Initiated [3614] Prescriptions as of 11/08/2017 Sig: GABAPENTIN 400 MG CAPSULE TAKE ONE CAPSULE BY MOUTH THR* METFORMIN 500 MG TABLET TAKE TWO TABLETS BY MOUTH TWI* DILTIAZEM SR 120 MG 24 HR CAP Take 1 capsule by mouth once * LISINOPRIL 10 MG TABLET Take 1 tablet by mouth once d* PEN NEEDLE, DIABETIC 29 GAUGE* Use one needle per dose. 5 p* INSULIN SYRINGE-NEEDLE U-100 * USE ONE SYRINGE FOR EACH INSU* LORAZEPAM 1 MG TABLET Take 1 tablet by mouth three * INSULIN LISPRO (U-100) 100 UN* Inject 14 Units subcutaneousl* CITALOPRAM 40 MG TABLET Take 1 tablet by mouth once d* EXENATIDE 5 MCG/DOSE (250 MCG* INJECT 5 mcg SUBCUTANEOUSLY T* WARFARIN 1 MG TABLET 10mg T-Th-Sa-Lofton, 11mg other d* WARFARIN 10 MG TABLET 10mg T-Th-Sa-Lofton, 11mg other d* LANTUS SOLOSTAR U-100 INSULIN* Inject 46 units subcutaneousl* WARFARIN 2 MG TABLET 10mg and and 11 * IPRATROPIUM-ALBUTEROL 0.5 MG-* Inhale 3 mL as instructed kris* ALBUTEROL SULFATE HFA 90 MCG/* 2 puffs every 4-6 hrs PRN SOB* BUDESONIDE-FORMOTEROL HFA 160* Inhale 2 Puffs as instructed * COMPOUNDED PRESCRIPTION Oxygen for home @ 2L per BIPA* TORSEMIDE 20 MG TABLET TAKE ONE TABLET BY MOUTH TWIC* NADOLOL 40 MG TABLET TAKE THREE TABLETS BY MOUTH D* GLIPIZIDE 10 MG TABLET Take 1 tablet by mouth twice * TORSEMIDE 20 MG TABLET Take 1 tablet by mouth twice * ALBUTEROL SULFATE 1.25 MG/3 M* USE ONE vial in NEBULIZER KRIS* DIGOXIN 250 MCG TABLET Take 1 tablet by mouth once d* POLYETHYLENE GLYCOL 3350 17 G* Take 1 Packet by mouth as nee* CPAP ACETAMINOPHEN ER 650 MG TABLE* Take 650 mg by mouth every 8 * Problem List As Of Date 11/08/2017 Noted Resolved Diabetes (HCC) [E11.9] INVALID FOR* More... Atrial fibrillation (HCC) [I48.91] INVALID FOR* Priority: A More... Lymphedema [I89.0] INVALID FOR* Priority: B More... Heart failure, systolic and diastolic, acute on*INVALID FOR*12/31/2014 More... Obesity, morbid, BMI 50 or higher (HCC) [E66.01]INVALID FOR* More... Hypertension [I10] INVALID FOR* More... HUNTER (obstructive sleep apnea) [G47.33] INVALID FOR* More... Pulmonary HTN (HCC) [I27.20] INVALID FOR* More... Atrial fibrillation with RVR ([facility]) [I48.91] INVALID FOR*09/23/2016 More... Heart failure, diastolic, acute (HCC) [I50.31] INVALID FOR* More... Counseling and coordination of care [Z71.89] INVALID FOR*04/12/2015 More... Monoclonal gammopathy [D47.2] INVALID FOR* Empty sella turcica (HCC) [E23.6] INVALID FOR* More... Uncontrolled type 2 diabetes mellitus without c*INVALID FOR*09/23/2016 Encounter Status:Closed by MELVINA ALMARAZ on 11/10/17 PROGRESS Observed: 10/26/2017 Status: COMPLETED Source: [place] 5:38 PM [facility] REPOSITORY HNO ID: [id number] Author: Melvina Emanuel) Sung Service: (none) Author Type: Registered Nurse Type: Progress Notes Filed: 10/26/2017 5:39 PM Note Text: TC to patient, instructed to increase Humalog insulin to 14 units with each meal, verbalized understanding by teach back. Also informed pt has lab work and urine sample to be done for both PCP and Dr. Harvey, verbalized understanding. Melvina Almaraz RN October 26, 2017 5:39 PM PROGRESS Observed: 10/26/2017 Status: COMPLETED Source: [place] 5:09 PM [facility] REPOSITORY HNO ID: [id number] Author: Rajesh Holman Service: (none) Author Type: Physician Type: Progress Notes Filed: 10/26/2017 5:40 PM Note Text: Ok to increase humalog by 2 units tid PROGRESS Observed: 10/26/2017 Status: COMPLETED Source: [place] 4:29 PM [facility] REPOSITORY HNO ID: [id number] Author: Melvina Emanuel) Sung Service: (none) Author Type: Registered Nurse Type: Progress Notes Filed: 10/26/2017 4:47 PM Note Text: PRIMARY CARE COORDINATION FOLLOW-UP NOTE Provider Action/FYI Please note BS. Pt is coming for PCP appt in 2 weeks. Do you want an increase in insulin? Patient phones requesting refills as follows: Pending Prescriptions Disp Refills INSULIN SYRINGE-NEEDLE U-100 0.3 ML 29 GAUGE X 1/2 150 Syringe 5 Sig: USE ONE SYRINGE FOR EACH INSULIN DOSE/ 5 PER DAY PEE: No LORAZEPAM 1 MG TABLET 60 tablet 1 Sig: Take 1 tablet by mouth three times daily as needed for up to 30 days. EDMAR Class: C-IV PEE: No Please review and advise. Patient identified by name and date of . YES Spoke to patient Summary: Reports LE lymphedema pain currently 3/10. States when weather was cold or if barometer drops pain in legs is 10/10 and she can't even stand a breeze on them. Reminded pt to have lab work done, verbalized understanding. Vicki Hernandez is a 57 year old female who reports glucose readings as noted. DATE 10/26 10/25 10/24 10/23 10/22 10/21 10/20 Fasting 176 168 170 150 200 Before Lunch 170 Post Lunch 190 164 210 Any low blood sugars during this period of reporting No Patient's diabetes medications as follows: LANTUS SOLOSTAR 100 unit/mL Inject 46 units subcutaneously once daily insulin lispro (HUMALOG KWIKPEN) 100 unit/mL Inject 12 Units subcutaneously w MEALS. exenatide (BYETTA) 5 mcg/dose (250 mcg/mL) INJECT 5 mcg SUBCUTANEOUSLY TWICE DAILY WITH MEALS metFORMIN (GLUCOPHAGE) 500 mg Take 2 tablets by mouth twice daily. glipiZIDE (GLUCOTROL) 10 mg Take 1 tablet by mouth twice daily before meals. [employer] Manager plan for next outreach: Will follow up 2 weeks Signature Melvina Almaraz RN October 26, 2017 BRYONTOUTREACH Observed: 10/26/2017 Status: COMPLETED Source: [place] 12:00 AM [facility] REPOSITORY Patient Outreach ([facility]) VICKI HERNANDEZ ([id number]) 1960 F Date Time Provider Department 10/26/17 MELVINA ALMARAZ (RN) FAMPWS During your visit today, we recorded the following information about you: Melvina Almaraz RN 10/26/2017 4:47 PM Signed PRIMARY CARE COORDINATION FOLLOW-UP NOTE Provider Action/FYI Please note BS. Pt is coming for PCP appt in 2 weeks. Do you want an increase in insulin? Patient phones requesting refills as follows: Pending Prescriptions Disp Refills INSULIN SYRINGE-NEEDLE U-100 0.3 ML 29 GAUGE X 1/2ANDquot; 150 Syringe 5 Sig: USE ONE SYRINGE FOR EACH INSULIN DOSE/ 5 PER DAY PEE: No LORAZEPAM 1 MG TABLET 60 tablet 1 Sig: Take 1 tablet by mouth three times daily as needed for up to 30 days. EDMAR Class: C-IV PEE: No Please review and advise. Patient identified by name and date of . YES Spoke to patient Summary: Reports LE lymphedema pain currently 10/30. States when weather was cold or if barometer drops pain in legs is 06/01 and she can't even stand a breeze on them. Reminded pt to have lab work done, verbalized understanding. Vicki Hernandez is a 57 year old female who reports glucose readings as noted. DATE 10/26 10/25 10/24 10/23 10/22 10/21 10/20 Fasting 176 168 170 150 200 Before Lunch 170 Post Lunch 190 164 210 Any low blood sugars during this period of reporting No Patient's diabetes medications as follows: LANTUS SOLOSTAR 100 unit/mL Inject 46 units subcutaneously once daily insulin lispro (HUMALOG KWIKPEN) 100 unit/mL Inject 12 Units subcutaneously w MEALS. exenatide (BYETTA) 5 mcg/dose (250 mcg/mL) INJECT 5 mcg SUBCUTANEOUSLY TWICE DAILY WITH MEALS metFORMIN (GLUCOPHAGE) 500 mg Take 2 tablets by mouth twice daily. glipiZIDE (GLUCOTROL) 10 mg Take 1 tablet by mouth twice daily before meals. [employer] Manager plan for next outreach: Will follow up 2 weeks Signature Melvina Almaraz RN October 26, 2017 Rajesh Holman MD 10/26/2017 5:40 PM Signed Ok to increase humalog by 2 units tid Melvina Almaraz RN 10/26/2017 5:39 PM Signed TC to patient, instructed to increase Humalog insulin to 14 units with each meal, verbalized understanding by teach back. Also informed pt has lab work and urine sample to be done for both PCP and Dr. Harvey, verbalized understanding. 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] Primary Visit Diagnosis:Anxiety [F41.9] Other Visit Diagnoses:Uncontrolled type 2 diabetes mellitus without complication, with long-term current use of insulin ([facility]) [E11.65, Z79.4] Diabetes mellitus due to underlying condition with hyperosmolarity without coma, without long-term current use of insulin ([facility]) [E08.00] Order(s):Insulin Syringe-Needle U-100 0.3 mL 29 gauge x 1/2 syrgUSE ONE SYRINGE FOR EACH INSULIN DOSE/ 5 PER DAYDisp: 150 SyringeRfl: 3 LORazepam (ATIVAN) 1 mg tabletTake 1 tablet by mouth three times daily as needed for up to 30 days.Disp: 60 tabletRfl: 1 insulin lispro (HUMALOG KWIKPEN INSULIN) 100 unit/mL inpnInject 14 Units subcutaneously w MEALS.Disp: 5 PenRfl: 3 Prescriptions as of 10/26/2017 Sig: INSULIN SYRINGE-NEEDLE U-100 * USE ONE SYRINGE FOR EACH INSU* LORAZEPAM 1 MG TABLET Take 1 tablet by mouth three * INSULIN LISPRO (U-100) 100 UN* Inject 14 Units subcutaneousl* CITALOPRAM 40 MG TABLET Take 1 tablet by mouth once d* EXENATIDE 5 MCG/DOSE (250 MCG* INJECT 5 mcg SUBCUTANEOUSLY T* WARFARIN 1 MG TABLET 10mg T-Th-Sa-Lofton, 11mg other d* WARFARIN 10 MG TABLET 10mg T-Th-Sa-Lofton, 11mg other d* GABAPENTIN 400 MG CAPSULE Take 1 capsule by mouth three* DILTIAZEM SR 120 MG 24 HR CAP Take 1 capsule by mouth once * LANTUS SOLOSTAR U-100 INSULIN* Inject 46 units subcutaneousl* WARFARIN 2 MG TABLET 10mg and and 11 * IPRATROPIUM-ALBUTEROL 0.5 MG-* Inhale 3 mL as instructed kris* ALBUTEROL SULFATE HFA 90 MCG/* 2 puffs every 4-6 hrs PRN SOB* BUDESONIDE-FORMOTEROL HFA 160* Inhale 2 Puffs as instructed * COMPOUNDED PRESCRIPTION Oxygen for home @ 2L per BIPA* TORSEMIDE 20 MG TABLET TAKE ONE TABLET BY MOUTH TWIC* NADOLOL 40 MG TABLET TAKE THREE TABLETS BY MOUTH D* GLIPIZIDE 10 MG TABLET Take 1 tablet by mouth twice * TORSEMIDE 20 MG TABLET Take 1 tablet by mouth twice * METFORMIN 500 MG TABLET Take 2 tablets by mouth twice* ALBUTEROL SULFATE 1.25 MG/3 M* USE ONE vial in NEBULIZER KRIS* LISINOPRIL 10 MG TABLET Take 1 tablet by mouth once d* DIGOXIN 250 MCG TABLET Take 1 tablet by mouth once d* POLYETHYLENE GLYCOL 3350 17 G* Take 1 Packet by mouth as nee* CPAP ACETAMINOPHEN ER 650 MG TABLE* Take 650 mg by mouth every 8 * Problem List As Of Date 10/26/2017 Noted Resolved Diabetes (HCC) [E11.9] INVALID FOR* More... Atrial fibrillation ([facility]) [I48.91] INVALID FOR* Priority: A More... Lymphedema [I89.0] INVALID FOR* Priority: B More... Heart failure, systolic and diastolic, acute on*INVALID FOR*12/31/2014 More... Obesity, morbid, BMI 50 or higher ([facility]) [E66.01]INVALID FOR* More... Hypertension [I10] INVALID FOR* More... HUNTER (obstructive sleep apnea) [G47.33] INVALID FOR* More... Pulmonary HTN ([facility]) [I27.20] INVALID FOR* More... Atrial fibrillation with RVR ([facility]) [I48.91] INVALID FOR*09/23/2016 More... Heart failure, diastolic, acute ([facility]) [I50.31] INVALID FOR* More... Counseling and coordination of care [Z71.89] INVALID FOR*04/12/2015 More... Monoclonal gammopathy [D47.2] INVALID FOR* Empty sella turcica ([facility]) [E23.6] INVALID FOR* More... Uncontrolled type 2 diabetes mellitus without c*INVALID FOR*09/23/2016 Prescriptions ordered this encounter Disp Refills Start End INSULIN SYRINGE-NEEDLE U-100 0.3 ML * 150 * 3 10/26/2017 Sig: USE ONE SYRINGE FOR EACH INSULIN DOSE/ 5 PER DAY LORAZEPAM 1 MG TABLET 60 t* 1 10/26/2017 11/25/2017 Class: Print RX Route: ORAL Sig: Take 1 tablet by mouth three times daily as needed for up to 30 days. INSULIN LISPRO (U-100) 100 UNIT/ML S* 5 Pen 3 10/26/2017 Route: SUBCUTANEOUS Sig: Inject 14 Units subcutaneously w MEALS. Medications Discontinued During This Encounter Insulin Syringe-Needle U-100 0.3 mL * 150 * 3 09/24/2016 10/26/2017 Sig: USE ONE SYRINGE FOR EACH INSULIN DOSE/ 3 PER DAY Disc: Reason for discontinue is not on file. LORazepam (ATIVAN) 1 mg tablet 60 t* 1 07/21/2017 10/26/2017 Class: Print RX Cmt: This prescription was filled today(01/11/2017). Any refills authorized will be placed on file. Route: ORAL Sig: Take 1 tablet by mouth three times daily as needed. Disc: Reason for discontinue is not on file. insulin lispro (HUMALOG KWIKPEN) 100* 5 Pen 3 07/02/2017 10/26/2017 Class: Med Update Route: SUBCUTANEOUS Sig: Inject 12 Units subcutaneously w MEALS. Disc: Reason for discontinue is not on file. Encounter Status:Closed by MELVINA ALMARAZ on 10/26/17 PROGRESS Observed: 09/22/2017 Status: COMPLETED Source: [place] 11:37 AM [facility] REPOSITORY HNO ID: [id number] Author: Melvina Emanuel) Sung Service: (none) Author Type: Registered Nurse Type: Progress Notes Filed: 09/22/2017 11:38 AM Note Text: Mammogram order faxed to [facility] and confirmed Melvina Almaraz RN September 22, 2017 10:37 AM PROGRESS Observed: 09/21/2017 Status: COMPLETED Source: [place] 5:15 PM [facility] RE[facility] HNO ID: [id number] Author: Rajesh Holman Service: (none) Author Type: Physician Type: Progress Notes Filed: 09/22/2017 11:38 AM Note Text: done PROGRESS Observed: 09/21/2017 Status: COMPLETED Source: [place] 4:11 PM [facility] HNO ID: [id number] Author: Melvina Emanuel) Sung Service: (none) Author Type: Registered Nurse Type: Progress Notes Filed: 09/21/2017 4:29 PM Note Text: PRIMARY CARE COORDINATION FOLLOW-UP NOTE Provider Action/FYI Pt just found out her sister has invasive breast cancer. Pt is overdo for mammogram. She would like order faxed to [facility] ORDER PENDED FOR YOUR APPROVAL Also reminded is overdo for Urine Albumin Has not had her Prevnar 13 vaccine. Patient identified by name and date of . YES Spoke to patient Summary: 1. No cough, has slight head cold but it's getting better Baseline SOB with ambulating in home No chest pain 2. Blood Sugars have been higher this week, ranging around 170's Feels BS are higher because she's been eating differently with her URI Has been ranging in the 130's 3. Lymphedema pretty good usually, pain ranging 3-4/10 Past 10 days pt has had a flare and pain 10/10. States when pain is severe Tylenol 650 mg helps along with rubbing legs and hot shower. [employer] Manager plan for next outreach: Will follow up one month Signature Melvina Almaraz RN September 21, 2017 NATHANAEL Observed: 09/21/2017 Status: COMPLETED Source: [place] 12:00 AM [facility] REPOSITORY Patient Outreach (FAMPWS) VICKI HERNANDEZ ([id number]) 1960 F Date Time Provider Department 09/21/17 MELVINA ALMARAZ (RN) DEANNAWS During your visit today, we recorded the following information about you: Melvina Almaraz RN 09/21/2017 4:29 PM Addendum PRIMARY CARE COORDINATION FOLLOW-UP NOTE Provider Action/FYI Pt just found out her sister has invasive breast cancer. Pt is overdo for mammogram. She would like order faxed to [facility] ORDER PENDED FOR YOUR APPROVAL Also reminded is overdo for Urine Albumin Has not had her Prevnar 13 vaccine. Patient identified by name and date of . YES Spoke to patient Summary: 1. No cough, has slight head cold but it's getting better Baseline SOB with ambulating in home No chest pain 2. Blood Sugars have been higher this week, ranging around 170's Feels BS are higher because she's been eating differently with her URI Has been ranging in the 130's 3. Lymphedema ANDquot;pretty goodANDquot; usually, pain ranging 3-4/10 Past 10 days pt has had a flare and pain 10/10. States when pain is severe Tylenol 650 mg helps along with rubbing legs and hot shower. [employer] Manager plan for next outreach: Will follow up one month Signature Melvina Almaraz RN September 21, 2017 Rajesh Holman MD 09/22/2017 11:38 AM Signed done Melvina Almaraz RN 09/22/2017 11:38 AM Signed Mammogram order faxed to [facility] and confirmed Melvina Almaraz RN September 22, 2017 10:37 AM Allergies As of Date: 09/21/2017 Noted Allergy Reaction CODEINE 11/19/2010 14 - Other: See Comments Comments: Itching, vomitting LATEX 11/19/2010 14 - Other: See Comments Comments: Itching,hives,dyspnea PHENOBARBITAL 11/19/2010 14 - Other: See Comments Comments: Nausea, itching TALWIN (PENTAZOCINE LACTATE) 11/19/2010 1 - Mental Status Change Comments: Hallucinations TREE NUT 02/07/2015 10 - Anaphylaxis Date Reviewed: 06/08/2017 Reviewed by: Karena Shaikh Cadd Drafter - Fully Assessed 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 11 mg a * INSULIN LISPRO 100 UNIT/ML [place]* Inject 12 Units subcutaneousl* WARFARIN 2 MG TABLET 10mg Tu and and 11 * IPRATROPIUM-ALBUTEROL 0.5 MG-* Inhale 3 mL as instructed kris* ALBUTEROL SULFATE HFA 90 MCG/* 2 puffs every 4-6 hrs PRN SOB* BUDESONIDE-FORMOTEROL HFA 160* Inhale 2 Puffs as instructed * COMPOUNDED PRESCRIPTION Oxygen for home @ 2L per BIPA* TORSEMIDE 20 MG TABLET TAKE ONE TABLET BY MOUTH TWIC* NADOLOL 40 MG TABLET TAKE THREE TABLETS BY MOUTH D* GLIPIZIDE 10 MG TABLET Take 1 tablet by mouth twice * CITALOPRAM 40 MG TABLET TAKE ONE TABLET BY MOUTH EVER* BYETTA 5 MCG/DOSE (250 MCG/ML* INJECT 5 mcg SUBCUTANEOUSLY T* TORSEMIDE 20 MG TABLET Take 1 tablet by mouth twice * METFORMIN 500 MG TABLET Take 2 tablets by mouth twice* ALBUTEROL SULFATE 1.25 MG/3 M* USE ONE vial in NEBULIZER KRIS* INSULIN SYRINGE-NEEDLE U-100 * USE ONE SYRINGE FOR EACH INSU* LISINOPRIL 10 MG TABLET Take 1 tablet by mouth once d* DIGOXIN 250 MCG TABLET Take 1 tablet by mouth once d* POLYETHYLENE GLYCOL 3350 17 G* Take 1 Packet by mouth as nee* CPAP ACETAMINOPHEN ER 650 MG TABLE* Take 650 mg by mouth every 8 * Problem List As Of Date 09/21/2017 Noted Resolved Diabetes (HCC) [E11.9] INVALID FOR* More... Atrial fibrillation (HCC) [I48.91] INVALID FOR* Priority: A More... Lymphedema [I89.0] INVALID FOR* Priority: B More... Heart failure, systolic and diastolic, acute on*INVALID FOR*12/31/2014 More... Obesity, morbid, BMI 50 or higher ([facility]) [E66.01]INVALID FOR* More... Hypertension [I10] INVALID FOR* More... HUNTER (obstructive sleep apnea) [G47.33] INVALID FOR* More... Pulmonary HTN (HCC) [I27.20] INVALID FOR* More... Atrial fibrillation with RVR ([facility]) [I48.91] INVALID FOR*09/23/2016 More... Heart failure, diastolic, acute ([facility]) [I50.31] INVALID FOR* More... Counseling and coordination of care [Z71.89] INVALID FOR*04/12/2015 More... Monoclonal gammopathy [D47.2] INVALID FOR* Empty sella turcica (HCC) [E23.6] INVALID FOR* More... Uncontrolled type 2 diabetes mellitus without c*INVALID FOR*09/23/2016 Encounter Status:Closed by MELVINA ALMARAZ on 09/22/17 RAJEEVYOELJARED Observed: 09/07/2017 Status: COMPLETED Source: [place] 12:00 AM [facility] RE[facility]ITORY Patient Outreach ([facility]) VICKI HERNANDEZ ([id number]) 1960 F Date Time Provider Department 09/07/17 RAJESH HOLMAN [facility] During your visit today, we recorded the following information about you: Allergies As of Date: 09/07/2017 Noted Allergy Reaction CODEINE 11/19/2010 14 - Other: See Comments Comments: Itching, vomitting LATEX 11/19/2010 14 - Other: See Comments Comments: Itching,hives,dyspnea PHENOBARBITAL 11/19/2010 14 - Other: See Comments Comments: Nausea, itching TALWIN (PENTAZOCINE LACTATE) 11/19/2010 1 - Mental Status Change Comments: Hallucinations TREE NUT 02/07/2015 10 - Anaphylaxis Date Reviewed: 06/08/2017 Reviewed by: Karena Shaikh Cadd Drafter - Fully Assessed Visit Diagnosis:Medication management [Z79.899] Order(s):ALBUMIN/CREAT RATIO RND UR [SQUACR] Order #: [id number] FUTURE Prescriptions as of 09/07/2017 Sig: GABAPENTIN 400 MG CAPSULE Take 1 capsule by mouth three* X WARFARIN 1 MG TABLET 10mg Tu and Thurs and 11 * DILTIAZEM SR 120 MG 24 HR CAP Take 1 capsule by mouth once * LANTUS SOLOSTAR 100 UNIT/ML (* Inject 46 units subcutaneousl* LORAZEPAM 1 MG TABLET Take 1 tablet by mouth three * X WARFARIN 10 MG TABLET 10 mg on , , Sat. 11 mg a * INSULIN LISPRO 100 UNIT/ML LOFTON* Inject 12 Units subcutaneousl* WARFARIN 2 MG TABLET 10mg Tu and Th and 11 * IPRATROPIUM-ALBUTEROL 0.5 MG-* Inhale 3 mL as instructed kris* ALBUTEROL SULFATE HFA 90 MCG/* 2 puffs every 4-6 hrs PRN SOB* BUDESONIDE-FORMOTEROL HFA 160* Inhale 2 Puffs as instructed * COMPOUNDED PRESCRIPTION Oxygen for home @ 2L per BIPA* TORSEMIDE 20 MG TABLET TAKE ONE TABLET BY MOUTH TWIC* NADOLOL 40 MG TABLET TAKE THREE TABLETS BY MOUTH D* GLIPIZIDE 10 MG TABLET Take 1 tablet by mouth twice * X CITALOPRAM 40 MG TABLET TAKE ONE TABLET BY MOUTH EVER* X BYETTA 5 MCG/DOSE (250 MCG/ML* INJECT 5 mcg SUBCUTANEOUSLY T* TORSEMIDE 20 MG TABLET Take 1 tablet by mouth twice * METFORMIN 500 MG TABLET Take 2 tablets by mouth twice* ALBUTEROL SULFATE 1.25 MG/3 M* USE ONE vial in NEBULIZER KRIS* INSULIN SYRINGE-NEEDLE U-100 * USE ONE SYRINGE FOR EACH INSU* LISINOPRIL 10 MG TABLET Take 1 tablet by mouth once d* DIGOXIN 250 MCG TABLET Take 1 tablet by mouth once d* POLYETHYLENE GLYCOL 3350 17 G* Take 1 Packet by mouth as nee* CPAP ACETAMINOPHEN ER 650 MG TABLE* Take 650 mg by mouth every 8 * Problem List As Of Date 09/07/2017 Noted Resolved Diabetes (HCC) [E11.9] INVALID FOR* More... Atrial fibrillation (HCC) [I48.91] INVALID FOR* Priority: A More... Lymphedema [I89.0] INVALID FOR* Priority: B More... Heart failure, systolic and diastolic, acute on*INVALID FOR*12/31/2014 More... Obesity, morbid, BMI 50 or higher (HCC) [E66.01]INVALID FOR* More... Hypertension [I10] INVALID FOR* More... HUNTER (obstructive sleep apnea) [G47.33] INVALID FOR* More... Pulmonary HTN (HCC) [I27.20] INVALID FOR* More... Atrial fibrillation with RVR (HCC) [I48.91] INVALID FOR*09/23/2016 More... Heart failure, diastolic, acute (HCC) [I50.31] INVALID FOR* More... Counseling and coordination of care [Z71.89] INVALID FOR*04/12/2015 More... Monoclonal gammopathy [D47.2] INVALID FOR* Empty sella turcica (HCC) [E23.6] INVALID FOR* More... Uncontrolled type 2 diabetes mellitus without c*INVALID FOR*09/23/2016 Encounter Status:Closed by NANETTE MERCADO on 10/10/17 PROGRESS Observed: 08/12/2017 Status: COMPLETED Source: [place] 10:46 AM [facility] RE[facility]ITORY HNO ID: [id number] Author: Melvina MosesRn) Sung Service: (none) Author Type: Registered Nurse Type: Progress Notes Filed: 08/12/2017 10:47 AM Note Text: TC to patient, informed PCP called in a new prescription for gabapentin 400 mg and she is to take it 3 x daily, verbalized understanding with teach back. Melvina Almaraz RN August 12, 2017 10:47 AM ] PROGRESS Observed: 08/11/2017 Status: COMPLETED Source: [place] 5:45 PM [facility] REPOSITORY HNO ID: [id number] Author: Rajesh Holman Service: (none) Author Type: Physician Type: Progress Notes Filed: 08/12/2017 10:47 AM Note Text: Change to 400 mg tid PROGRESS Observed: 08/11/2017 Status: COMPLETED Source: [place] 5:15 PM [facility] REPOSITORY HNO ID: [id number] Author: Melvina Emanuel) Sung Service: (none) Author Type: Registered Nurse Type: Progress Notes Filed: 08/11/2017 5:20 PM Note Text: PRIMARY CARE COORDINATION FOLLOW-UP NOTE Provider Action/FYI States BS are staying right around 150. States she had one 175 but that was due to a late night snack. LE pain has increased over past month. Burning/stinging. Pain worse in late afternoon and early evening. Pain currently 7/10 and worse lately 10/10. States she was up all night last night with pain. Can pt possibly increase Gabapentin. Currently taking 300 mg TID Patient identified by name and date of . YES Spoke to patient Summary: States BS are staying right around 150. States she had one 175 but that was due to a late night snack. LE pain has increased over past month. States burning/stinging. Pain worse in late afternoon and early evening. Pain currently 7/10 and worse lately 10/10. States she was up all night last night with pain. States pain is worse with cold weather and weather changes Lymphedema at baseline Breathing at baseline. Using BIPAP every night. Depression is good [employer] Manager plan for next outreach: Will follow up 5 weeks Signature Melvina Almaraz RN August 11, 2017 BRYONTOUTREACH Observed: 08/11/2017 Status: COMPLETED Source: [place] 12:00 AM [facility] REPOSITORY Patient Outreach (FAMPWS) HERNANDEZVICKI ([id number]) 1960 F Date Time Provider Department 08/11/17 MELVINA ALMARAZ (EVGENY) AUDREY During your visit today, we recorded the following information about you: Melvina Almaraz RN 08/11/2017 5:20 PM Signed PRIMARY CARE COORDINATION FOLLOW-UP NOTE Provider Action/FYI States BS are staying right around 150. States she had one 175 but that was due to a late night snack. LE pain has increased over past month. Burning/stinging. Pain worse in late afternoon and early evening. Pain currently 7/10 and worse lately 10/10. States she was up all night last night with pain. Can pt possibly increase Gabapentin. Currently taking 300 mg TID Patient identified by name and date of . YES Spoke to patient Summary: States BS are staying right around 150. States she had one 175 but that was due to a late night snack. LE pain has increased over past month. States burning/stinging. Pain worse in late afternoon and early evening. Pain currently 7/10 and worse lately 10/10. States she was up all night last night with pain. States pain is worse with cold weather and weather changes Lymphedema at baseline Breathing at baseline. Using BIPAP every night. Depression is good [employer] Manager plan for next outreach: Will follow up 5 weeks Signature Melvina Almaraz RN August 11, 2017 Rajesh Holman MD 08/12/2017 10:47 AM Signed Change to 400 mg tid Melvina Almaraz RN 08/12/2017 10:47 AM Signed TC to patient, informed PCP called in a new prescription for gabapentin 400 mg and she is to take it 3 x daily, verbalized understanding with teach back. Melvina Almaraz RN August 12, 2017 10:47 AM ] Allergies As of Date: 08/11/2017 Noted Allergy Reaction CODEINE 11/19/2010 14 - Other: See Comments Comments: Itching, vomitting LATEX 11/19/2010 14 - Other: See Comments Comments: Itching,hives,dyspnea PHENOBARBITAL 11/19/2010 14 - Other: See Comments Comments: Nausea, itching TALWIN (PENTAZOCINE LACTATE) 11/19/2010 1 - Mental Status Change Comments: Hallucinations TREE NUT 02/07/2015 10 - Anaphylaxis Date Reviewed: 06/08/2017 Reviewed by: Karena Shaikh Cadd Drafter - Fully Assessed Reason for Visit: Bed Control Specialist Chronic Care [0335] Order(s):gabapentin (NEURONTIN) 400 mg capsuleTake 1 capsule by mouth three times daily for 30 days.Disp: 90 capsuleRfl: 3 Prescriptions as of 08/11/2017 Sig: GABAPENTIN 400 MG CAPSULE Take 1 capsule by mouth three* WARFARIN 1 MG TABLET 10mg and and 11 * DILTIAZEM SR 120 MG 24 HR CAP Take 1 capsule by mouth once * LANTUS SOLOSTAR 100 UNIT/ML (* Inject 46 units subcutaneousl* LORAZEPAM 1 MG TABLET Take 1 tablet by mouth three * WARFARIN 10 MG TABLET 10 mg on , , Sat. 11 mg a * INSULIN LISPRO 100 UNIT/ML [place]FTON* Inject 12 Units subcutaneousl* WARFARIN 2 MG TABLET 10mg and and 11 * IPRATROPIUM-ALBUTEROL 0.5 MG-* Inhale 3 mL as instructed kris* ALBUTEROL SULFATE HFA 90 MCG/* 2 puffs every 4-6 hrs PRN SOB* BUDESONIDE-FORMOTEROL HFA 160* Inhale 2 Puffs as instructed * COMPOUNDED PRESCRIPTION Oxygen for home @ 2L per BIPA* TORSEMIDE 20 MG TABLET TAKE ONE TABLET BY MOUTH TWIC* NADOLOL 40 MG TABLET TAKE THREE TABLETS BY MOUTH D* GLIPIZIDE 10 MG TABLET Take 1 tablet by mouth twice * CITALOPRAM 40 MG TABLET TAKE ONE TABLET BY MOUTH EVER* BYETTA 5 MCG/DOSE (250 MCG/ML* INJECT 5 mcg SUBCUTANEOUSLY T* TORSEMIDE 20 MG TABLET Take 1 tablet by mouth twice * METFORMIN 500 MG TABLET Take 2 tablets by mouth twice* ALBUTEROL SULFATE 1.25 MG/3 M* USE ONE vial in NEBULIZER KRIS* INSULIN SYRINGE-NEEDLE U-100 * USE ONE SYRINGE FOR EACH INSU* LISINOPRIL 10 MG TABLET Take 1 tablet by mouth once d* DIGOXIN 250 MCG TABLET Take 1 tablet by mouth once d* POLYETHYLENE GLYCOL 3350 17 G* Take 1 Packet by mouth as nee* CPAP ACETAMINOPHEN ER 650 MG TABLE* Take 650 mg by mouth every 8 * Problem List As Of Date 08/11/2017 Noted Resolved Diabetes (HCC) [E11.9] INVALID FOR* More... Atrial fibrillation (HCC) [I48.91] INVALID FOR* Priority: A More... Lymphedema [I89.0] INVALID FOR* Priority: B More... Heart failure, systolic and diastolic, acute on*INVALID FOR*12/31/2014 More... Obesity, morbid, BMI 50 or higher (HCC) [E66.01]INVALID FOR* More... Hypertension [I10] INVALID FOR* More... HUNTER (obstructive sleep apnea) [G47.33] INVALID FOR* More... Pulmonary HTN (HCC) [I27.20] INVALID FOR* More... Atrial fibrillation with RVR (HCC) [I48.91] INVALID FOR*09/23/2016 More... Heart failure, diastolic, acute (HCC) [I50.31] INVALID FOR* More... Counseling and coordination of care [Z71.89] INVALID FOR*04/12/2015 More... Monoclonal gammopathy [D47.2] INVALID FOR* Empty sella turcica ([facility]) [E23.6] INVALID FOR* More... Uncontrolled type 2 diabetes mellitus without c*INVALID FOR*09/23/2016 Prescriptions ordered this encounter Disp Refills Start End GABAPENTIN 400 MG CAPSULE 90 c* 3 08/11/2017 09/10/2017 Route: ORAL Sig: Take 1 capsule by mouth three times daily for 30 days. Medications Discontinued During This Encounter gabapentin (NEURONTIN) 300 mg capsule 270 * 3 04/29/2017 08/11/2017 Route: ORAL Sig: Take 1 capsule by mouth three times daily. Disc: Reason for discontinue is not on file. Encounter Status:Closed by MELVINA ALMARAZ on 08/12/17 ALLERGIES ALLERGIES DATE TYPE / CODE NAME / CODE REACTION SEVERITY SOURCE Drug pentazocine Itching Unknown [place] 8 Allergy/277946624 lactate/S347092 [facility] (SNOMED CT) 585(RXNORM) Hospital Repository Drug phenobarbital/F Itching Unknown [place] 8 Allergy/014889757 312602931(RXNOR [facility] (SNOMED CT) M) Hospital Repository Drug codeine/C894062 Upset Stomach Unknown [place] 8 Allergy/951065181 550(RXNORM) [facility] (SNOMED CT) Hospital Repository Drug latex/U57088709 Itching Unknown [place] 8 Allergy/215569011 1(RXNORM) [facility] (SNOMED CT) Hospital Repository Drug tree Anaphylaxis Unknown [place] 8 Allergy/159687996 nut/U962121638( [facility] (SNOMED CT) RXNORM) Hospital Repository Drug CODEINE/7462586 VOMITING Moderate [place] Allergy/753429754 6(RXNORM) ([facility] (SNOMED CT) Modifier) [facility] (Qualifier Repository Value) Drug PENTAZOCINE/000 HALLUCINATIONS Moderate [place] Allergy/213578614 60410(RXNORM) ([facility] (SNOMED CT) Modifier) Hospital (Qualifier Repository Value) Drug PHENOBARBITAL/0 VOMITING, NAUSEA Moderate [place] Allergy/613048772 7679637(RXNORM) ([facility] (SNOMED CT) Modifier) [facility] (Qualifier Repository Value) Environmental LATEX HIVES, ITCHING, Moderate [place] Allergy/378227657 RASH ([facility] (SNOMED CT) Modifier) Hospital (Qualifier Repository Value) Food NUTS Moderate [place] Allergy/986798769 ([facility] (SNOMED CT) Modifier) [facility] (Qualifier Repository Value) ENCOUNTERS ENCOUNTERS ADMIT/DISCHARGE ACCOUNT ADMITTING ENCOUNTER LOCATION SOURCE NUMBER CLASS 07/26/2018 [id number] Ambulatory [place] 4 [facility] ing: Repository 07/22/2018/ [id number] [place], Inpatient [place] 8 1 [facility] ing:PCURoom: Repository [id number]: 1 07/22/2018 [id number] [place], Ambulatory BMSBuilding:B [place] 6 [place] Repository 07/22/2018 [id number] [place], Ambulatory BMSBuilding:B [place] 6 [place] Repository 07/22/2018 [id number] [place], Ambulatory BMSBuilding:B [place] 5 [place] Repository 07/22/2018 [id number] [place], Ambulatory BMSBuilding:B [place] 4 [place] Repository 07/22/2018 [id number] [place], Ambulatory BMSBuilding:B [place] 6 [place] Repository 07/21/2018 [id number] Ambulatory [place] Sheila 5 [facility] Hospital ing:[facility] Repository 07/05/2018 [id number] Ambulatory BMSBuilding:B [place] 7 [place] Repository 07/05/2018/ [id number] Ambulatory [place] 8 6 [facility] Hospital ing: Repository 06/09/2018 [id number] Ambulatory BMSBuilding:B [place] 4 [facility] Repository 06/07/2018/ [id number] Ambulatory [place] [facility] Repository 05/11/2018 [id number] Ambulatory BMSBuilding:B [place] 7 [place] Repository 05/10/2018/ [id number] Ambulatory [place] 8 5 [facility] ing: Repository 05/10/2018/ [id number] Ambulatory BMSBuilding:W [place] 8 2 [facility] Repository 04/11/2018/ [id number] Ambulatory [place] 8 8 [facility] ing: Repository 03/07/2018/ [id number] Ambulatory Sheila [place] 8 5 [facility] Hospital ing: Repository 03/07/2018 [id number] Ambulatory BMSBuilding:B [place] 6 [facility] Repository 12/29/2017/ [id number] [facility]ulatory [facility] [address] [facility]han[facility]R Repository oom: [id number] 12/24/2017/ [id number] Silviano Vasquez Inpatient [place] 8 4 [facility] ing:PCURoom: Repository [id number]: 1 12/24/2017 [id number] Pedro, Silviano Ambulatory BMSBuilding:B [place] 7 [place] Repository 12/24/2017 [id number] Celestinoeri, Silviano Ambulatory BMSBuilding:B [place] 5 [place] Repository 12/24/2017 [id number] Pedro, Silviano Ambulatory BMSBuilding:B [place] 8 [facility] Repository 12/24/2017 [id number] Pedro, Silviano Ambulatory BMSBuilding:B [place] 9 [facility] Repository 12/24/2017 [id number] Pedro, Silviano Ambulatory BMSBuilding:B [place] 3 [facility] Repository 12/24/2017 [id number] Pedro, Silviano Ambulatory BMSBuilding:B [place] 8 [place] Repository 12/24/2017 [id number] Pedro, Silviano Ambulatory BMSBuilding:W [place] 5 [facility] Repository 12/24/2017 [id number] Pedro, Silviano Ambulatory BMSBuilding:B [place] 5 [place] Repository 12/24/2017 [id number] Pedro, Silviano Ambulatory BMSBuilding:B [place] 4 [facility] Repository 12/24/2017 [id number] Pedro, Silviano Ambulatory BMSBuilding:W [place] 2 [facility] Repository 12/24/2017 [id number] Pedro, Silviano Ambulatory BMSBuilding:B [place] 1 [place] Repository 12/24/2017 [id number] Pedro, Silviano Ambulatory BMSBuilding:B [place] 5 [facility] Repository 12/24/2017 [id number] Pedro, Silviano Ambulatory BMSBuilding:B [place] 0 [facility] Repository 12/24/2017/ [id number] Ambulatory BMSBuilding:W [place] 8 2 [facility] Repository 12/24/2017/ [id number] Ambulatory BMSBuilding:W [place] 8 0 [facility] Repository 12/24/2017/ [id number] Ambulatory BMSBuilding:W [place] 8 0 [facility] Repository 12/24/2017/ [id number] TIMOTHY DELGADO [facility] oom: ERBed: F [facility] Repository 12/14/2017 [id number] KALISET[facility], [facility] Repository 12/08/2017/ [id number] Ambulatory BMSBuilding:W [place] 8 7 [facility] Repository 12/06/2017/ [id number] [place], Inpatient [place] 8 3 [place] [facility] ing:IV0Euon: Repository [id number]: 1 12/06/2017 [id number] [place], Ambulatory BMSBuilding:B [place] 1 [place] Repository 12/06/2017 [id number] [place], Ambulatory BMSBuilding:B [place] 7 [place] Repository 12/06/2017 [id number] [place], Ambulatory BMSBuilding:B [place] 5 [place] Repository 12/06/2017 [id number] [place], Ambulatory BMSBuilding:B [place] 0 [place] Repository 12/06/2017 [id number] [place], Ambulatory BMSBuilding:B [place] 9 [place] Repository 12/06/2017 [id number] [place], Ambulatory BMSBuilding:B [place] 5 [place] Repository 12/06/2017 [id number] [place], Ambulatory BMSBuilding:B [place] 3 [place] Repository 12/06/2017 [id number] [place], Ambulatory BMSBuilding:B [place] 1 [place] Repository 12/06/2017 [id number] [place], Ambulatory BMSBuilding:B [place] 2 [place] Repository 12/06/2017 [id number] [place], Ambulatory BMSBuilding:B [place] 6 [place] Repository 12/06/2017 [id number] [place], Ambulatory BMSBuilding:B [place] 2 [place] Repository 12/06/2017 [id number] [place], Ambulatory BMSBuilding:B [place] 8 [place] Repository PAYERS PAYERS ENCOUNTER GUARANTOR PAYER SUBSCRIBER SOURCE 07/26/2018 VICKI Silke Primary VICKI Edouard [place] [id number] Insurance:MEDICAL MILLERDOB: [facility] [id number], Number: [place]ository [place] [address]Ekc: [id number] Date:6417-23-10[address] () [address], [place] [address]MF: 07/26/2018 Secondary NOT GIVENUNK [place] Insurance:SELF PAY [facility] Number: Effective Repository Date:2018-07-23 07/22/2018 VICKI Edouard Primary VICKI [address] Insurance:MEDICAL MILLERDOB: [facility] [id number], Number: Repository [place] [address]Dvu: [id number] Date:1798-89-02SN [address] () [address], [place] [address]SV: 07/22/2018 Secondary NOT GIVENUNK [place] Insurance:SELF PAY [facility] Number: Effective Repository Date:2018-07-22 07/22/2018 VICKI Edouard Primary VICKI [address] Insurance:MEDICAL MILLERDOB: [facility] [id number], Number: Repository [place] [address]Dax: [id number] Date:5608-03-74GC BOX () [address] [place] [address]RZ: 07/22/2018 Secondary NOT GIVENUNK [place] Insurance:SELF PAY [facility] Number: Effective Repository Date:2018-07-22 07/22/2018 VICKI Edouard Primary VICKI [address] Insurance:MEDICAL MILLERDOB: Community [address] [facility] [id number], Number: Repository [place] [address]Npm: [id number] Date:0840-83-14BP BOX () [address] [place] [address]KC: 07/22/2018 Secondary NOT GIVENUNK [place] Insurance:SELF PAY [facility] Number: Effective Repository Date:2018-07-22 07/22/2018 VICKI W Primary VICKI [address] Insurance:MEDICAL MILLERDOB: [facility] [id number], Number: Repository [place] [address]Lje: [id number] Date:3793-32-22MS BOX () [address] [place] [address]UJ: 07/22/2018 Secondary NOT GIVENUNK [place] Insurance:SELF PAY [facility] Number: Effective Repository Date:2018-07-22 07/22/2018 VICKI W Primary VICKI [address] Insurance:MEDICAL MILLERDOB: [facility] [id number], Number: Repository [place] [address]Zmu: [id number] Date:1975-96-81JS BOX () [address] [place] [address]SX: 07/22/2018 Secondary NOT GIVENUNK [place] Insurance:SELF PAY [facility] Number: Effective Repository Date:2018-07-22 07/22/2018 VICKI W Primary VICKI W [place] [id number] Insurance:MEDICAL MILLERDOB: [facility] [id number], Number: Repository [place] [address]Orj: [id number] Date:0660-15-63JT BOX () [address] [place] [address]ZL: 07/22/2018 Secondary NOT GIVENUNK [place] Insurance:SELF PAY [facility] Number: Effective Repository Date:2018-07-22 07/21/2018 VICKI W Primary VICKI [address] Insurance:MEDICAL MILLERDOB: [facility] [id number], Number: Repository [place] [address]Fue: [id number] Date:8444-01-66YL BOX () [address] [place] [address]PP: 07/21/2018 Secondary NOT GIVENUNK [place] Insurance:SELF PAY [facility] Number: Effective Repository Date:2018-07-21 07/05/2018 VICKI W Primary VICKI [address] Insurance:MEDICAL MILLERDOB: [facility] [id number], Number: Repository [place] [address]Pzr: [id number] Date:7760-88-56IX BOX () [address] [place] [address]WX: 07/05/2018 Secondary NOT GIVENUNK [place] Insurance:SELF PAY [facility] Number: Effective Repository Date:2018-07-05 07/05/2018 VICKI W Primary VICKI [address] Insurance:MEDICAL MILLERDOB: [facility] [id number], Number: Repository [place] [address]Obr: [id number] Date:7471-23-89BF BOX () [address] [place] [address]FK: 07/05/2018 Secondary NOT GIVENUNK [place] Insurance:SELF PAY [facility] Number: Effective Repository Date:2018-06-23 06/09/2018 VICKI Edouard Primary VICKI [address] Insurance:MEDICAL MILLERDOB: [facility] [id number], Number: Repository [place] [address]Qlu: [id number] Date:4937-45-25TK BOX () [address], [place] [address]DG: 06/09/2018 Secondary NOT GIVENUNK [place] Insurance:SELF PAY [facility] Number: Effective Repository Date:2018-06-09 06/07/2018 VICKI Edouard Primary VICKI [address] Insurance:MEDICAL MILLERDOB: [facility] [id number], Number: Repository [place] [address]Omb: [id number] Date:7399-67-94KF BOX () [address], [place] [address]QG: 06/07/2018 Secondary NOT GIVENUNK [place] Insurance:SELF PAY [facility] Number: Effective Repository Date:2018-05-23 05/11/2018 VICKI Edouard Primary VICKI [address] Insurance:MEDICAL MILLERDOB: [facility] [id number], Number: Repository [place] [address]Dcg: [id number] Date:4503-79-16GY BOX () [address], [place] [address]HT: 05/11/2018 Secondary NOT GIVENUNK [place] Insurance:SELF PAY [facility] Number: Effective Repository Date:2018-05-11 05/10/2018 VICKI Edouard Primary VICKI [address] Insurance:MEDICAL MILLERDOB: [facility] [id number], Number: Repository [place] [address]Cjm: [id number] Date:2103-62-83WD BOX () [address], [place] [address]XT: 05/10/2018 Secondary NOT GIVENUNK [place] Insurance:SELF PAY [facility] Number: Effective Repository Date:2018-04-23 05/10/2018 VICKI W Primary VICKI [address] Insurance:MEDICAL MILLERDOB: [address] [facility] [id number], Number: Repository [place] [address]Dws: [id number] Date:0617-31-50OY BOX () [address] [place] [phone]: 05/10/2018 Secondary NOT GIVENUNK [place] Insurance:SELF PAY [facility] Number: Effective Repository Date:2018-05-10 04/11/2018 VICKI W Primary VICKI W [place] [address] Insurance:MEDICAL MILLERDOB: Community [address] [facility] [id number], Number: Repository [place] [address]Xoy: [id number] Date:4511-24-02CT BOX () [address] [place] [address]IH: 04/11/2018 Secondary NOT GIVENUNK [place] Insurance:SELF PAY [facility] Number: Effective Repository Date:2018-03-23 03/07/2018 VICKI W Primary VICKI [address] Insurance:MEDICAL MILLERDOB: Community ST[address] [facility] [id number], Number: Repository [place] [address]Ros: [id number] Date:8082-04-83TK BOX () [address], [place] [address]EJ: 03/07/2018 Secondary NOT GIVENUNK [place] Insurance:SELF PAY [facility] Number: Effective Repository Date:2018-03-04 03/07/2018 VICKI W Primary VICKI [address] Insurance:MEDICAL MILLERDOB: [facility] [id number], Number: Repository [place] [address]Ivm: [id number] Date:4403-36-03OP BOX (HP) [address], [place] [address]RJ: 03/07/2018 Secondary NOT GIVENUNK [place] Insurance:SELF PAY [facility] Number: Effective Repository Date:2018-03-07 12/29/2017 SPECIALITY Primary [facility] Insurance:SELECT [facility] [id number] [facility] Repository DR PATINO [facility] Number: [id number]: [phone] [id number] [phone] (HP) Date:[address] [facility] [place], [place] [address]QZ: 12/29/2017 Secondary [facility] Medical Insurance:SUPERMED [facility] Number: Repository [id number] Date:5091-84-75[address], [place] [address]NC: 12/24/2017 VICKI W Primary VICKI [address] Insurance:MEDICAL MILLERDOB: [facility] [id number], Number: Repository [place] [address]Woq: [id number] Date:1649-76-60KV BOX (HP) [address], [place] [address]BW: 12/24/2017 Secondary NOT GIVENUNK [place] Insurance:SELF PAY [facility] Number: Effective Repository Date:2017-12-24 12/24/2017 VICKI W Primary VICKI [address] Insurance:MEDICAL MILLERDOB: [facility] [id number], Number: Repository [place] [address]Yax: [id number] Date:2750-86-70MU BOX () [address], [place] [address]EJ: 12/24/2017 Secondary NOT GIVENUNK [place] Insurance:SELF PAY [facility] Number: Effective Repository Date:2017-12-24 12/24/2017 VICKI Edouard Primary VICKI [address] Insurance:MEDICAL MILLERDOB: Community [address] [facility] [id number], Number: Repository [place] [id number]: [id number] Date:1070-43-38OK BOX () [address] [place] [address]DO: 12/24/2017 Secondary NOT GIVENUNK [place] Insurance:SELF PAY [facility] Number: Effective Repository Date:2017-12-24 12/24/2017 VICKI W Primary VICKI [address] Insurance:MEDICAL MILLERDOB: Community [address] [facility] [id number], Number: Repository [place] [address]Ofl: [id number] Date:4996-81-96BE BOX () [address] [place] [address]DI: 12/24/2017 Secondary NOT GIVENUNK [place] Insurance:SELF PAY [facility] Number: Effective Repository Date:2017-12-24 12/24/2017 VICKI W Primary VICKI [address] Insurance:MEDICAL MILLERDOB: [facility] [address] [facility] [id number], Number: Repository [place] [address]Knf: [id number] Date:1789-81-75RJ BOX () [address] [place] [address]LB: 12/24/2017 Secondary NOT GIVENUNK [place] Insurance:SELF PAY [facility] Number: Effective Repository Date:2017-12-24 12/24/2017 VICKI W Primary VICKI W [place] [id number] Insurance:MEDICAL MILLERDOB: [facility] [address] [facility] [id number], Number: Repository [place] [address]Rkd: [id number] Date:5619-52-67AZ BOX () [address], [place] [address]IH: 12/24/2017 Secondary NOT GIVENUNK [place] Insurance:SELF PAY [facility] Number: Effective Repository Date:2017-12-24 12/24/2017 VICKI W Primary VICKI W [place] [id number] Insurance:[facility]ER[facility] [id number], Number: Repository [place] [address]Fsg: [id number] Date:1736-53-07CP BOX () [address] [place] [address]PV: 12/24/2017 Secondary NOT GIVENUNK [place] Insurance:SELF PAY [facility] Number: Effective Repository Date:2017-12-24 12/24/2017 VICKI W Primary VICKI [address] Insurance:MEDICAL MILLERDOB: [facility] [id number], Number: Repository [place] [address]Omu: [id number] Date:1811-01-55PW BOX () [address] [place] [address]WZ: 12/24/2017 Secondary NOT GIVENUNK [place] Insurance:SELF PAY [facility] Number: Effective Repository Date:2017-12-24 12/24/2017 VICKI W Primary VICKI [address]NA[address] Insurance:MEDICAL MILLERDOB: [facility] [id number], Number: Repository [place] [address]Xgy: [id number] Date:7431-62-52VQ BOX () [address] [place] [address]TR: 12/24/2017 Secondary NOT GIVENUNK [place] Insurance:SELF PAY [facility] Number: Effective Repository Date:2017-12-24 12/24/2017 VICKI Edouard Primary VICKI [address] Insurance:MEDICAL MILLERDOB: [facility] [id number], Number: Repository [place] [id number]: [id number] Date:8201-75-56IQ BOX () [address], [place] [address]SI: 12/24/2017 Secondary NOT GIVENUNK [place] Insurance:SELF PAY [facility] Number: Effective Repository Date:2017-12-24 12/24/2017 VICKI Edouard Primary VICKI [address] Insurance:MEDICAL MILLERDOB: [facility] [id number], Number: Repository [place] [address]Lqu: [id number] Date:6635-06-26DM BOX () [address], [place] [address]CO: 12/24/2017 Secondary NOT GIVENUNK [place] Insurance:SELF PAY [facility] Number: Effective Repository Date:2017-12-24 12/24/2017 VICKI Edouard Primary VICKI [address]NA[address] Insurance:MEDICAL MILLERDOB: [facility] [id number], Number: Repository [place] [address]Qsg: [id number] Date:2308-40-65YS BOX () [address], [place] [address]XK: 12/24/2017 Secondary NOT GIVENUNK [place] Insurance:SELF PAY [facility] Number: Effective Repository Date:2017-12-24 12/24/2017 VICKI Edouard Primary VICKI [address] Insurance:MEDICAL MILLERDOB: [facility] [id number], Number: Repository [place] [address]Asf: [id number] Date:3110-40-90PE BOX () [address], [place] [address]XV: 12/24/2017 Secondary NOT GIVENUNK [place] Insurance:SELF PAY [facility] Number: Effective Repository Date:2017-12-24 12/24/2017 VICKI W Primary VICKI [address] Insurance:MEDICAL MILLERDOB: Community [address] [facility] [id number], Number: Repository [place] [address]Fye: [id number] Date:2460-27-97SN BOX () [address] [place] [address]OR: 12/24/2017 Secondary NOT GIVENUNK [place] Insurance:SELF PAY [facility] Number: Effective Repository Date:2017-12-24 12/24/2017 VICKI W Primary VICKI W [place] [id number] Insurance:MEDICAL MILLERDOB: Community [address] [facility] [id number], Number: Repository [place] [address]Yjv: [id number] Date:2136-08-93NM BOX () [address], [place] [address]JC: 12/24/2017 Secondary NOT GIVENUNK [place] Insurance:SELF PAY [facility] Number: Effective Repository Date:2017-12-24 12/24/2017 VICKI W Primary VICKI [address]NAN[address] Insurance:MEDICAL MILLERDOB: Community [address] [facility] [id number], Number: Repository [place] [address]Ybz: [id number] Date:5235-75-87HV BOX () [address], [place] [address]JP: 12/24/2017 Secondary NOT GIVENUNK [place] Insurance:SELF PAY [facility] Number: Effective Repository Date:2017-12-24 12/24/2017 VICKI Edouard Primary VICKI Sosa [id number] Insurance:MEDICAL [facility]ERDOB[facility] [id number], Number: Repository [place] [address]Myz: [id number] Date:2805-30-41IP BOX () [address], [place] [address]FY: 12/24/2017 Secondary NOT GIVENUNK [place] Insurance:SELF PAY [facility] Number: Effective Repository Date:2017-12-24 12/24/2017 VICKI Edouard Primary VICKI Godinez MILLERDOB: Insurance:MEDICAL MILLERDOB: [facility] [id number] [facility] BOX Repository [facility] Number: [address] [place] [address], [id number] [place] [id number] [place] [id number]: Date:Plan Name: () 12/14/2017 VICKI Edouard Primary VICKI Godinez MILLERDOB: Insurance:MEDICAL MILLERDOB: [facility] [id number] Repository [facility] Number: 83%[facility], [id number] [place] [id number]: Date:Plan Name:[facility] [id number] () 12/08/2017 VICKI Edouard Primary VICKI Sosa [id number] Insurance:MEDICAL MILLERDOB: [facility] [id number], Number: Repository [place] [address]Src: [id number] Date:0182-47-44KD BOX (HP) [address], [place] [address]BK: 12/08/2017 Secondary NOT GIVENUNK [place] Insurance:SELF PAY [facility] Number: Effective Repository Date:2017-12-08 12/06/2017 VICKI W Primary VICKI [address] Insurance:MEDICAL MILLERDOB: [facility] [id number], Number: Repository [place] [address]Ago: [id number] Date:6722-22-47KM [facility] () [address] [place] [address]TP: 12/06/2017 Secondary NOT GIVENUNK [place] Insurance:SELF PAY [facility] Number: Effective Repository Date:2017-12-06 12/06/2017 Vicki W Primary Vicki Hernandez[address] Insurance:MEDICAL MillerDOB: [facility] [id number], Number: Repository [place] [address]Yrf: [id number] Date:9578-25-03GY [facility] () [address] [place] [address]KX: 12/06/2017 Secondary NOT GIVENUNK [place] Insurance:SELF PAY [facility] Number: Effective Repository Date:2017-12-06 12/06/2017 Vicki W Primary Vicki Hernandez[address] Insurance:MEDICAL MillerDOB: [facility] [id number], Number: [place]ository [place] [id number]: [id number] Date:1548-30-89GN [facility] () [address] [place] [address]HK: 12/06/2017 Secondary NOT GIVENUNK [place] Insurance:SELF PAY [facility] Number: Effective Repository Date:2017-12-06 12/06/2017 Vicki W Primary Vicki Hernandez[address] Insurance:MEDICAL MillerDOB: [facility] [id number], Number: Repository [place] [address]Zpx: [id number] Date:2801-53-40UF BOX () [address], [place] [address]WQ: 12/06/2017 Secondary NOT GIVENUNK [place] Insurance:SELF PAY [facility] Number: Effective Repository Date:2017-12-06 12/06/2017 Vicki Edouard Primary Vicki Hernandez[address] Insurance:MEDICAL MillerD[facility] [id number], Number: Repository [place] [address]Qse: [id number] Date:3217-97-63TE BOX () [address] [place] [address]NR: 12/06/2017 Secondary NOT GIVENUNK [place] Insurance:SELF PAY [facility] Number: Effective Repository Date:2017-12-06 12/06/2017 Vicki W Primary Vicki Sosa [id number] Insurance:MEDICAL MillerDOB: [facility] [id number], Number: Repository [place] [address]Jfp: [id number] Date:8642-66-08IB BOX () [address] [place] [address]QD: 12/06/2017 Secondary NOT GIVENUNK [place] Insurance:SELF PAY [facility] Number: Effective Repository Date:2017-12-06 12/06/2017 Vicki W Primary Vicki [address] Insurance:MEDICAL MillerDOB: [facility] [id number], Number: Repository [place] [address]Dge: [id number] Date:1662-04-16NJ BOX () [address] [place] [address]PT: 12/06/2017 Secondary NOT GIVENUNK [place] Insurance:SELF PAY [facility] Number: Effective Repository Date:2017-12-06 12/06/2017 Vicki W Primary Vicki W [place] [id number] Insurance:MEDICAL MillerDOB: [facility] [id number], Number: [place]ository [place] [address]Bwp: [id number] Date:4846-96-03NQ BOX () [address], [place] [address]ZA: 12/06/2017 Secondary NOT GIVENUNK [place] Insurance:SELF PAY [facility] Number: Effective Repository Date:2017-12-06 12/06/2017 Vicki W Primary Vicki W [place] [id number] Insurance:MEDICAL MillerDOB: [facility] [id number], Number: Repository [place] [id number]: [id number] Date:1654-81-74GA BOX () [address], [place] [address]HR: 12/06/2017 Secondary NOT GIVENUNK [place] Insurance:SELF PAY [facility] Number: Effective Repository Date:2017-12-06 12/06/2017 Vicki W Primary Vicki W [place] [id number] Insurance:MEDICAL MillerDOB: [facility] [id number], Number: Repository [place] [address]Jeo: [id number] Date:2462-98-86RU BOX () [address] [place] [address]RG: 12/06/2017 Secondary NOT GIVENUNK [place] Insurance:SELF PAY [facility] Number: Effective Repository Date:2017-12-06 12/06/2017 Vicki W Primary Vicki W [place] [id number] Insurance:MEDICAL MillerDOB: [facility] [id number], Number: Repository [place] [address]Teu: [id number] Date:8878-27-31IK B[address] () [address], [place] [address]RT: 12/06/2017 Secondary NOT GIVENUNK [place] Insurance:SELF PAY [facility] Number: Effective Repository Date:2017-12-06 12/06/2017 Vicki Edouard Primary Vicki [id number] Insurance:MEDICAL MillerDOB: [facility] [id number], Number: Repository [place] [address]Yhi: [id number] Date:2401-35-51XV BOX () [address], [place] [address]MC: 12/06/2017 Secondary NOT GIVENUNK [place] Insurance:SELF PAY [facility] Number: Effective Repository Date:2017-12-06 12/06/2017 VICKI Edouard Primary VICKI [id number] Insurance:MEDICAL MILLERDOB: [facility] [id number], Number: Repository [place] [address]Wwl: [id number] Date:0826-20-91HX BOX () [address], [place] [address]AD: 12/06/2017 Secondary NOT GIVENUNK [place] Insurance:SELF PAY [facility] Number: Effective Repository Date:2017-12-06
== END ==
PROVIDERS: Family Provider Family Medicine; PCP Family Medicine; Visit Provider Family Medicine
DX: I50.31 Acute diastolic (congestive) heart failure (principal); I89.0 Lymphedema, not elsewhere classified
CPT/HCPCS: 80053; 85025

== ENCOUNTER 2018-07-22 21:36 | Inpatient (IN) | payer OTHER, SELFPAY ==
[2018-07-22 21:37] VITALS: BP 126/104; PULSE 133; RESP 28; TEMP 36.7; O2SAT 90; BMI 74.7
[2018-07-22 21:48] VITALS: O2SAT 93
--- NOTE | 2018-07-22 21:53 | EKG12_ITS ---
Test Reason : SOB Blood Pressure : / mmHG Vent. Rate : 146 BPM Atrial Rate : 159 BPM P-R Int : 000 ms QRS Dur : 084 ms QT Int : 286 ms P-R-T Axes : 000 071 074 degrees QTc Int : 445 ms AGE AND GENDER SPECIFIC ECG ANALYSIS Atrial fibrillation with rapid ventricular response with premature ventricular or aberrantly conducte d complexes Low voltage QRS Abnormal ECG Confirmed by ARTURO LAZARO, MIKO ([id number]), web content editor CHECO HERNANDEZ ([id number]) on 07/26/2018 2:06:38 PM Referred By: DONNA Confirmed By:MIKO MORRIS MD
--- NOTE | 2018-07-22 21:57 | RAD_ITS ---
STUDY: X-RAY CHEST REASON FOR EXAM: Female, 57 years old. Shortness of breath TECHNIQUE: A single frontal view of the chest was obtained. COMPARISON: December 24, 2017 FINDINGS: The lungs are underaerated. There are increased interstitial markings throughout the lungs. There are no focal airspace opacities. There is no demonstrated pleural abnormality. There is moderate enlargement of the cardiac silhouette. The mediastinum and hilar regions are unremarkable. The central vessels are increased. Normal visualized aortic arch and descending thoracic aorta. The thoracic spine is unremarkable. The visualized ribs, clavicles, and shoulders are unremarkable. There is no demonstrated abnormality of the visualized upper abdomen. RAD/Chest 1 View (Portable) IMPRESSION: There is moderate enlargement of the cardiac silhouette with mild edema. There is no obvious effusion. Electronically Signed: Joelle Mehta MD at 22:40 EST Tel Direct: [phone], Service support ,
[2018-07-22 22:03] LABS: Absolute Lymphocyte Count 0.91 X10^3/ul (0.83-4.51); Absolute Neutrophil Count 4.6 X10^3/uL (2.0-7.7); Basophil# 0.03 X10^3/uL; Basophil% 0.5 % (0-1); Eosinophil# 0.11 X10^3/uL; Eosinophils% 1.8 % (0-5); Hematocrit 35.1 % (37-47); Hemoglobin 10.9 g/dl (12.0-15.0); Lymphocyte # 0.91 X10^3/ul (4.0); Mean Corp Hgb Conc 31.1 g/gl (32-36); Mean Corpuscular Hgb 29.5 pg (27.0-32.0); Mean Corpuscular Volume 94.9 fL (81-99); Mean Platelet Vol. 9.2 fl (6.2-12.0); Monocyte# 0.44 X10^3/uL; Monocyte% 7.2 % (0-10); Neutrophil # 4.58 X10^3/uL (2.7-7.7); Neutrophil % 75.5 % (47-70); POSITIVE COUNT NO; POSITIVE DIFFERENTIAL NO; POSITIVE MORPHOLOGY NO; Platelet Count 226 K/mm3 (150-450); RBC Distribution Width CV 18.4 % (11.6-14.6); White Blood Count 6.1 K/mm3 (4.4-11.0)
[2018-07-22 22:04] VITALS: BP 122/104; PULSE 127; RESP 21; O2SAT 95
[2018-07-22] MEDS: dilTIAZem 25 MG/5 ML Vial 20 MG IV BOLUS (22:05)
[2018-07-22 22:06] VITALS: PULSE 108; RESP 20
[2018-07-22] MEDS: Ipratropium/Albuterol Sulfate 3 ML AMPUL.NEB INHALATION (22:06)
--- NOTE | 2018-07-22 22:25 | ED.VISSUMM ---
- ER Visit Summary Date of Service: 07/22/18 Chief Complaint: [Shortness of breath] History of Present Illness: The patient is a 57 F [presents with shortness of breath that started 4 days ago. Patient complains of a cough that is mostly nonproductive. Patient denies any fevers. She does have a history of COPD however she does not wear home O2. Patient also with history of CHF, diabetes, hypertension, sleep apnea, pulmonary hypertension, chronic A. fib, and morbid obesity. Patient denies any chest pain. She denies any recent travel or surgery. Patient has been compliant with her medications and is currently on Eliquis for history of A. fib.] States that she actually feels improved since EMS placed oxygen on her. Physical Examination: [HEENT-PERRLA, EOMI. Cranial nerves II through XII grossly intact. TMs clear. Mucous membranes dry. No adenopathy. Cardiovascular-irregularly irregular and tachycardic. No murmurs auscultated. Lungs-breath sounds bilaterally with some faint expiratory wheezes noted. Patient is tachypneic. No accessory muscle use or retractions noted. Abdomen-normoactive bowel sounds, soft, nontender, no rebound or rigidity, no peritoneal signs. Patient is morbidly obese. Extremities-intact ?4, normal range of motion, normal pulses, atraumatic. Patient does have lymphedema of lower extremities. No evidence of cellulitis noted.] Test Results: [EKG obtained on arrival showed atrial fibrillation with a rapid ventricular response of 146 bpm with some nonspecific ST changes noted and occasional PVCs. CBC with differential showed a white count 6.1, hemoglobin 10.9, hematocrit 35, platelets 226.] Chest x-ray was read as cardiomegaly and mild edema. Emergency Department Course and Treatment: [On arrival patient was placed on 4 L nasal cannula O2. Patient received Cardizem 20 mg IV bolus and then dropped her heart rate anywhere from 102 to 130. Patient received a DuoNeb aerosol and started on Solu-Medrol 125 mill grams IV.] Patient had a Dos Santos catheter placed. Treatment Plan: [Patient will be admitted] Disposition: [Admit] Impression: [Dyspnea CHF COPD exacerbation A. fib RVR-uncontrolled] This note was generated with [employer] software. It may contain incorrect words, spelling, and punctuation that were not noted in review of the chart prior to signing ED Disposition - Plan for ED Patient: Chief Complaint: Shortness of Breath Referrals: Rajesh Reynodls [Primary Care Provider] -
--- NOTE | 2018-07-22 22:28 | ED.DCSUM_ITS ---
- ER Visit Summary Date of Service: 07/22/18 Chief Complaint: [Shortness of breath] History of Present Illness: The patient is a 57 F [presents with shortness of breath that started 4 days ago. Patient complains of a cough that is mostly nonproductive. Patient denies any fevers. She does have a history of COPD however she does not wear home O2. Patient also with history of CHF, diabetes, hypertension, sleep apnea, pulmonary hypertension, chronic A. fib, and morbid obesity. Patient denies any chest pain. She denies any recent travel or surgery. Patient has been compliant with her medications and is currently on Eliquis for history of A. fib.] States that she actually feels improved since EMS placed oxygen on her. Physical Examination: [HEENT-PERRLA, EOMI. Cranial nerves II through XII grossly intact. TMs clear. Mucous membranes dry. No adenopathy. Cardiovascular-irregularly irregular and tachycardic. No murmurs auscultated. Lungs-breath sounds bilaterally with some faint expiratory wheezes noted. Patient is tachypneic. No accessory muscle use or retractions noted. Abdomen-normoactive bowel sounds, soft, nontender, no rebound or rigidity, no peritoneal signs. Patient is morbidly obese. Extremities-intact ?4, normal range of motion, normal pulses, atraumatic. Patient does have lymphedema of lower extremities. No evidence of cellulitis noted.] Test Results: [EKG obtained on arrival showed atrial fibrillation with a rapid v entricular response of 146 bpm with some nonspecific ST changes noted and occasional PVCs. CBC with differential showed a white count 6.1, hemoglobin 10.9, hematocrit 35, platelets 226.] Chest x-ray was read as cardiomegaly and mild edema. Emergency Department Course and Treatment: [On arrival patient was placed on 4 L nasal cannula O2. Patient received Cardizem 20 mg IV bolus and then dropped her heart rate anywhere from 102 to 130. Patient received a DuoNeb aerosol and started on Solu-Medrol 125 mill grams IV.] Patient had a Dos Santos catheter aliza robert. Treatment Plan: [Patient will be admitted] Disposition: [Admit] Impression: [Dyspnea CHF COPD exacerbation A. fib RVR-uncontrolled] This note was generated with [employer] dictation software. It may contain incorrect words, spelling, and punctuation that were not noted in review of the chart prior to signing ED Disposition - Plan for ED Patient: Chief Complaint: Shortness of Breath Referrals: Rajesh Reynolds [Primary Care Provider] -
[2018-07-22 22:40] LABS: Anion Gap 9 (5-15); BUN 32 mg/dL (7-18); BUN/Creat Ratio 28.3 RATIO (10-20); Calcium,Total 8.5 mg/dL (8.5-10.1); Chloride 110 mmol/L (98-107); Creatinine, Serum 1.13 mg/dL (0.55-1.02); EST Glomerular Filtration Rate 52 mL/min (>60); Est Glom Filt Rate - Afr Amer 63 mL/min (>60); Estimated Creatinine Clearance 50.18 ml/min; Glucose 185 mg/dL (74-106); Potassium 4.4 mmol/L (3.5-5.1); Sodium Level 144 mmol/L (136-145)
[2018-07-22 22:54] LABS: Lactic Acid 1.2 mmol/L (0.4-2.0)
--- NOTE | 2018-07-22 23:01 | HP.PCM_ITS ---
Problem List (1) Acute hypoxemic respiratory failure Status: Acute (2) COPD exacerbation Status: Chronic (3) Acute kidney injury Status: Acute (4) Hyperkalemia Status: Acute (5) Digoxin toxicity Status: Acute Qualifiers: Encounter type: initial encounter Injury intent: accidental or unintentional Qualified Code(s): T46.0X1A - Poisoning by cardiac-stimulant glycosides and drugs of similar action, accidental (unintentional), initial encounter (6) Sleep apnea Status: Chronic (7) Acute on chronic diastolic (congestive) heart failure Status: Acute (8) Chronic atrial fibrillation Status: Chronic (9) Type 2 diabetes mellitus Status: Chronic (10) Hypertension Status: Chronic History of Present Illness Date of Admission: 07/22/18 Chief Complaint: increasing swelling in legs and abdomen; and shortness of breath The patient is a 57 year old super morbidly obese F with a significant history of hypertension; obstructive sleep apnea; former tobacco use COPD; diabetes; chronic atrial fibrillation on Eliquis; congestive heart failure who presented with increased swelling of her bilateral legs and abdomen that has been progressively worsening for the last 5-6 days. Patient reported that she used to walk with a walker but because of the increased swelling in her extremities her walking has been more impaired. Associated with symptoms is shortness of breath. She reported she has shortness of breath when she move her limbs in the bed. The paramedics found that her oxygen saturation was 90% on room air. Although patient has COPD she is not on home oxygen. At the emergency department patient was found to be in A. fib with RVR and she received Cardizem 20 mg IV bolus and later another Cardizem 25 mg IV bolus. Past Medical History Past Medical History (Chronic Problems): Chronic Problems (Last Reviewed 07/23/18 @ 03:27 by Billy Bowling MD) Ulcer of right lower extremity with fat layer exposed (Chronic) Ulcer of left lower extremity with fat layer exposed (Chronic) Venous insufficiency of both lower extremities (Chronic) Hx MRSA infection (Chronic) COPD exacerbation (Chronic) Chronic acquired lymphedema (Chronic) Nonhealing ulcer of multiple sites of left lower extremity with fat layer exposed (Chronic) Iron deficiency anemia, unspecified (Chronic) Sleep apnea (Chronic) Poor compliance with CPAP treatment (Chronic) Biatrial enlargement (Chronic) Non-healing wound (Chronic) Chronic anticoagulation (Chronic) Diastolic CHF, chronic (Chronic) Pulmonary hypertension (Chronic) Morbid obesity (Chronic) Chronic atrial fibrillation (Chronic) Type 2 diabetes mellitus (Chronic) Hypertension (Chronic) Medical History: Medical History (Last Reviewed 07/23/18 @ 03:27 by Billy Bowling MD) Pulmonary hypertension (Chronic) I27.2 Morbid obesity (Chronic) E66.01 Chronic atrial fibrillation (Chronic) I48.2 Type 2 diabetes mellitus (Chronic) E11.9 Hypertension (Chronic) I10 Severe sepsis A41.9, R65.20 COPD (chronic obstructive pulmonary disease) J44.9 Hypersomnia G47.10 Nocturnal hypoxia G47.34 HUNTER (obstructive sleep apnea) G47.33 Post-nasal drip R09.82 Acute on chronic congestive heart failure (Resolved) I50.9 Cellulitis of leg, right (Resolved) L03.115 ulnar nerve surgery Allergies latex Allergy (Verified 07/22/18 21:42) Itching pentazocine lactate [From Talwin] Allergy (Verified 07/22/18 21:42) Itching phenobarbital Allergy (Verified 07/22/18 21:42) Itching tree nut Allergy (Verified 07/22/18 21:42) Anaphylaxis codeine Adverse Reaction (Verified 07/22/18 21:42) Upset Stomach Home Medications: Ambulatory Orders Medication Instructions Recorded albuterol sulfate HFA 90 2 puff INHALATION Q4H PRN g 08/26/17 mcg/actuation aerosol inhaler fluticasone 50 mcg/actuation nasal 2 spray INTRANASAL DAILY 08/26/17 spray,suspension Budesonide/Formoterol 160/4.5 1 inh INHALATION DAILY 12/06/17 [Symbicort 160/4.5 Mcg Inhaler (SP)] Acetaminophen [Pain Relief Extra 650 mg PO Q6H 12/24/17 Strength] Apixaban [Eliquis] 5 mg PO BID 03/07/18 Diltiazem HCl [Cardizem Cd] 120 mg PO DAILY 03/07/18 Gabapentin [Neurontin] 400 mg PO 4X/DAY 03/07/18 Insulin Lispro [Humalog] 6 unit SQ TIDCM 03/07/18 Lorazepam [Ativan] 0.5 mg PO Q6H PRN PRN 03/07/18 Multivitamin [Daily Multiple 1 each PO DAILY 03/07/18 Vitamin] Venlafaxine HCl [Effexor Xr] 75 mg PO BID 03/07/18 Nut.tx.gluc Intol,Lf,Soy/Fiber 237 ml PO BID 06/07/18 [Boost Glucose Control Liquid] Surgical History: Surgical History (Last Reviewed 07/23/18 @ 03:27 by Billy Bowling MD) H/O section Z98.891 1979 1989 H/O total hysterectomy Z98.890, Z90.710 1999 History of carpal tunnel release Z98.890 History of tonsillectomy Z98.890, Z90.89 1971 hip debridement 2011 Surgical History: cholecystectomy, hysterectomy - with BSO, tonsillectomy, - - 2 section. Lives: With Family Smoking Status: Former smoker Alcohol: None - *Family History Maternal Family History: Family History (Last Reviewed 07/23/18 @ 03:28 by Billy Bowling MD) Mother Colon cancer Diabetes Hypertension CHF (congestive heart failure) Father COPD (chronic obstructive pulmonary disease) Heart disease Diabetes Brother Heart disease Stomach cancer Sister Ovarian cancer History Items: No pertinent history Paternal Family History: Family History (Last Reviewed 07/23/18 @ 03:28 by Billy Bowling MD) Mother Colon cancer Diabetes Hypertension CHF (congestive heart failure) Father COPD (chronic obstructive pulmonary disease) Heart disease Diabetes Brother Heart disease Stomach cancer Sister Ovarian cancer Review of Systems Constitutional: Reports: Weight Change - subjective weight increase. Denies: Chills, Fever HEENT: Denies: Head Aches, Sinus Congestion, Sinus Drainage Cardiovascular: Denies: Chest Pain, Palpitations Respiratory: Reports: Shortness of breath upon exertion, Wheezing. Denies: Cough, Shortness of breath at rest, Sputum production Gastrointestinal: Denies: Abdominal Pain, Nausea, Vomiting Genitourinary: Denies: Dysuria Musculoskeletal: Denies: Joint Pain, Joint Tenderness Skin: Reports: Wounds - bilateral legs. Denies: Rash Neurological: Denies: Numbness, Tingling, Focal weakness Psychiatric: Denies: Anxiety, Depression, Homicidal Ideations, Suicidal Ideations Hematologic/ Lymphatic: Denies: Easy Bruising, Easy Bleeding VTE Information - Inpt Only VTE Present on Admission: No VTE Mechan Device Prophylaxis: None VTE Pharm Prophylaxis ordered?: No Reason prophylaxis not ordered:: Treatment Not Indicated - On Eliquis for A. fib; continued. Patient Problems: Active and Suspected Problems (Last Reviewed 07/23/18 @ 03:27 by Billy Bowling MD) Acute hypoxemic respiratory failure (Acute) - Physical Exam General: Alert, Oriented x3, Cooperative, - - Super morbidly obese patient HEENT: Atraumatic, PERRLA, EOMI, Normocephalic Neck: Supple, No JVD, Negative Carotid Bruits Lungs: Normal air movement, Rales - bibasilar Cardiovascular: No murmurs, Irregular Rate Abdomen: Bowel Sounds Present, Soft, Non Tender Extremities: Capillary Refill Less than 3 Seconds, Edema Skin: Ulcer/ Wound - bilateral leg wounds Musculoskeletal: No Muscle Wasting Neurological: Neuro grossly intact Psych/Mental Status: Normal Affect, Appropriate Vital Signs Temp Pulse Resp BP Pulse Ox 98.1 F 108 H 20 H 122/104 H 95 07/22/18 21:37 07/22/18 22:06 07/22/18 22:06 07/22/18 22:04 07/22/18 22:04 Oxygen Flow Rate (L/min) 5 Oxygen Delivery Method Nasal Cannula Weight: 210.1 kg Body Mass Index (BMI) 74.7 Laboratory Tests Past 24 Hrs 07/22/18 07/22/18 07/22/18 21:49 21:49 21:49 WBC 6.1 RBC 3.70 L Hgb 10.9 L Hct 35.1 L MCV 94.9 MCH 29.5 MCHC 31.1 L RDW 18.4 H RDW Differential 64.0 H Plt Count 226 MPV 9.2 Immature Gran % (Auto) 0.000 Neut % (Auto) 75.5 H Lymph % (Auto) 15.0 L Laurens % (Auto) 7.2 Eos % (Auto) 1.8 Baso % (Auto) 0.5 Absolute Neuts (auto) 4.6 Absolute Lymphs (auto) 0.91 Total Counted Not Reportable Sodium 144 Potassium 4.4 Chloride 110 H Carbon Dioxide 25.0 Anion Gap 9 BUN 32 H Creatinine 1.13 H Estim Creat Clear Calc 50.18 Est GFR (MDRD) Af Amer 63 Est GFR (MDRD) Non-Af 52 L BUN/Creatinine Ratio 28.3 H Glucose 185 H Lactic Acid Calcium 8.5 Troponin I < 0.015 B-Natriuretic Peptide 166.0 H 07/22/18 22:15 WBC RBC Hgb Hct MCV MCH MCHC RDW RDW Differential Plt Count MPV Immature Gran % (Auto) Neut % (Auto) Lymph % (Auto) Laurens % (Auto) Eos % (Auto) Baso % (Auto) Absolute Neuts (auto) Absolute Lymphs (auto) Total Counted Sodium Potassium Chloride Carbon Dioxide Anion Gap BUN Creatinine Estim Creat Clear Calc Est GFR (MDRD) Af Amer Est GFR (MDRD) Non-Af BUN/Creatinine Ratio Glucose Lactic Acid 1.2 Calcium Troponin I B-Natriuretic Peptide Assessment/Plan All Active Problems (Last Reviewed 07/23/18 @ 03:27 by Billy Bowling MD) Acute hypoxemic respiratory failure (Acute) Acute kidney injury (Acute) Hyperkalemia (Acute) Digoxin toxicity (Acute) Vancomycin toxicity (Resolved) Bradycardia (Resolved) Acute on chronic diastolic (congestive) heart failure (Acute) Metabolic encephalopathy (Acute) Abscess of left lower extremity (Resolved) Abscess of right lower extremity (Resolved) Acute on chronic congestive heart failure (Resolved) Cellulitis of leg, right (Resolved) Diabetes with ulcer of lower extremity (Resolved) Methicillin resistant Staphylococcus aureus infection (Resolved) The patient is a 57 year old super morbidly obese F with a significant history of hypertension; obstructive sleep apnea; COPD; diabetes; chronic atrial fibrillation on Eliquis; congestive heart failure who presented with increased swelling of her bilateral legs and abdomen; shortness of breath with mild exertion and found to have radiographic evidence of pulmonary edema; and A. fib with RVR. Acute hypoxemic respiratory failure. Reportedly her oxygen saturation was 90% on room air before her admission. At emergency department on 5 L her oxygen saturation was about 93%. Emergency department doctor reported that patient was wheezing on examination. Also patient reported a brief episode of wheezing before admission. There was radiographic evidence of moderate enlargement of the cardiac silhouette with mild edema. I agree with radiographic readings. Her acute hypoxemic respiratory failure could be due to exacerbation of heart failure superimposed on COPD exacerbation. Acute exacerbation of COPD Patient received Solu-Medrol 125 mg at emergency department. Prednisone 40 mg every day ordered. Patient received DuoNeb in the emergency department. DuoNeb scheduled and albuterol as needed ordered. Acute exacerbation of heart failure with preserved ejection fraction; and right ventricular systolic heart failure. Review of old records shows that echocardiogram on 12/30/2016 showed an ejection fraction of 65%; moderately dilated right ventricle; moderately global right ventricular systolic dysfunction; severely enlarged left atrium; severely enlarged right atrium. Mild tricuspid valve insufficiency; right ventricular systolic blood pressure was estimated to be 53 Patient received Lasix 60 mg IV push at emergency department. Laxis 40 mg IV twice daily ordered. Potassium supplementation while on Lasix. Daily weights Fluid restriction of 1500 mL's per day Patient reported that she does not have a education teacher at this time. Consider discussing case with education teacher or upon discharge helping patient to get appointment with cardiology for long-term management of heart failure.. A. fib with RVR At emergency department patient received a total of 45 mg of Cardizem IV push Patient started on Cardizem drip to maintain heart rate of less than 90 and to hold for systolic blood pressure less than 100. We will continue home Cardizem XL. Placed on telemetry. TSH and magnesium ordered. Eliquis continued. Diabetes mellitus Patient reported at home she uses short acting insulin 6 units before each meal and Lantus 15 units at night. She reported that for some time now she have not been taking her insulin. On admission her blood glucose was slightly above goal. We will start patient on Humalog 4 units with each meal; and Lantus 12 units at night. Correction scale insulin added. On starting patient on steroids anticipate that she may need increase insulin requirements. Adjust insulin regimen as necessary. Obstructive sleep apnea BiPAP ordered. Lymphedema of bilateral leg wounds Patient reported at home he uses Santyl to cover her wounds. Santyl to bilateral legs; 4x4; and Kerlix roll. Wound care consult. Toradol 50 mg IV push x1 given for pain DVT prophylaxis Not indicated Patient on Eliquis for A. fib. Code Visit Inpatient E&M: 97784 Init Hosp L3
[2018-07-22] MEDS: dilTIAZem 25 MG/5 ML Vial IV BOLUS (23:18)
[2018-07-22 23:19] VITALS: BP 117/87; PULSE 110; RESP 22; O2SAT 94
[2018-07-22] MEDS: MethylPREDNISolone 125 MG/2 ML Vial IV (23:20)
[2018-07-22] MEDS: Furosemide 100 MG/10 ML Vial 60 MG IV (23:57)
[2018-07-22 23:58] VITALS: BP 132/109; PULSE 109; RESP 25; O2SAT 93
[2018-07-23] VITALS (51 sets, daily range): BP systolic 97–138; BP diastolic 58–113; PULSE 92–137; RESP 14–25; TEMP 36.4–36.7; O2SAT 90–98; BMI 72.8; BMI 72.9
--- NOTE | 2018-07-23 00:20 | ECHOD_ITS ---
Reason For Study: Dyspnea/SOB Procedure This was a 2D Doppler, Color Flow transthoracic echocardiogram. The study was technically difficult. Exam performed portable in patient room. Left Ventricle Normal LV size. D shaped septum in systole and diastole. Mild global left ventricular systolic dysfunction. The estimated ejection fraction is 45 %. Unable to assess diastolic dysfunction. Right Ventricle Mildly dilated right ventricle. Mild global right ventricular systolic dysfunction. Atria The left atrium is moderately enlarged. The right atrium is moderately enlarged. No doppler evidence for ASD. Mitral Valve There is mild mitral annular calcification. Mild papillary muscle dysfunction of the mitral valve. Mild-Moderate (1-2+) eccentric mitral valve insufficiency. Tricuspid Valve Normal tricuspid valve. Mild (1+) tricuspid valve insufficiency. Right ventricular systolic pressure estimated to be 44 mmHg. Aortic Valve Trisinus/trileaflet aortic valve. Mild diffuse aortic valve thickening. Mild focal aortic valve calcification. Aortic sclerosis, no stenosis. Pulmonic Valve The pulmonic valve is not well visualized. Mild (1+) pulmonic valve insufficiency. Great Vessels Normal sized aortic root. Pericardium/Pleural No pericardial effusion. MMode/2D Measurements & Calculations LVIDd: 4.9 cm IVSd: 0.92 cm Ao root diam: 3.7 cm LVIDs: 3.9 cm LVPWd: 1.1 cm FS: 20.2 % LAV(MOD-bp): 165.7 ml LA A4 area: 38.0 cm2 RA A4 area: 37.2 cm2 LAV(MOD-bp) Indexed: 58.5 ml/m2 LAV(MOD-sp2): 178.9 ml LAV(MOD-sp4): 145.9 ml Doppler Measurements & Calculations MV E max boubacar: 123.0 cm/sec Ao V2 max: 134.8 cm/sec LV V1 max: 98.6 cm/sec Ao max P.3 mmHg LV V1 max P.9 mmHg PA V2 max: 93.1 cm/sec TR max boubacar: 267.0 cm/sec TR max P.6 mmHg Interpretation Summary The study was technically difficult. Mild global left ventricular systolic dysfunction. The estimated ejection fraction is 45 %. D shaped septum in systole and diastole. Mildly dilated right ventricle. Mild global right ventricular systolic dysfunction. The left atrium is moderately enlarged. The right atrium is moderately enlarged. There is mild mitral annular calcification. Mild papillary muscle dysfunction of the mitral valve. Mild-Moderate (1-2+) eccentric mitral valve insufficiency. Mild (1+) tricuspid valve insufficiency. Aortic sclerosis, no stenosis. Mild (1+) pulmonic valve insufficiency. Right ventricular systolic pressure estimated to be 44 mmHg. Unable to assess diastolic dysfunction. Ordering Physician: Billy Bowling Referring Physician: Axel Costello Performed By: Surya Marin RCS
[2018-07-23 00:49] LABS: Magnesium 2.1 mg/dL (1.6-2.6); Thyroid Stim Hormone (TSH) 1.02 uIU/mL (0.358-3.74)
[2018-07-23 01:26] LABS: Bedside Glucose 168 mg/dL (70-110)
[2018-07-23] MEDS: Venlafaxine XR 75 MG Capsule PO ×3 (01:27→21:38)
[2018-07-23] MEDS: APIXABAN 5 MG TABLET PO ×3 (01:27→21:38)
[2018-07-23] MEDS: Gabapentin 400 MG Capsule PO ×5 (02:10→21:38)
[2018-07-23] MEDS: LORazepam 0.5 MG Tablet PO ×2 (02:10→21:38)
[2018-07-23] MEDS: Collagenase 30gm Tube 1 APPLIC TOPICAL (02:10)
[2018-07-23] MEDS: 0.9% NaCl Peripheral Flush Adult/Peds IV (04:05)
[2018-07-23] MEDS: Ketorolac 15 MG/ML Vial IV (04:05)
--- NOTE | 2018-07-23 05:15 | VDLE_ITS ---
Reason For Study: LEG PAIN AND SWELLING RIGHT LEFT GSV is normal. GSV is normal. CFV is compressible, spontaneous, phasic, CFV is compressible, spontaneous, phasic, competent and demonstrates normal competent, and demonstrates normal augmentation. augmentation. FV is compressible, spontaneous, phasic, FV is compressible, spontaneous, phasic, competent and demonstrates normal competent and demonstrates normal augmentation. augmentation. POP V is compressible, spontaneous, phasic, POP V is compressible, spontaneous, phasic, competent and demonstrates normal competent and demonstrates normal augmentation. augmentation. PTV is compressible. PTV is compressible. Procedure Exam performed portable in patient room. Limited exam due to severe swelling and body habitus Mid/dist FV, T/P trunk and PER V not visualized bilaterally. A preliminary report was called and/or faxed to [facility]. <> Interpretation Summary Deep veins of the lower extremities are bilaterally patent and compressible segmentally. There is no evidence of deep vein thrombosis on either side. Valvular competence appears intact within the proximal deep venous systems bilaterally. The greater saphenous veins appear bilaterally patent and compressible segmentally. The mid- and distal femoral veins, tibio-peroneal trunks, and peroneal veins were not visualized on either side due to swelling and the patient's body habitus. Ordering Physician: Billy Bowling Referring Physician: Axel Costello Performed By: Breana Goldberg RVT
[2018-07-23 06:18] LABS: Absolute Lymphocyte Count 0.51 X10^3/ul (0.83-4.51); Absolute Neutrophil Count 5.6 X10^3/uL (2.0-7.7); Basophil# 0.01 X10^3/uL; Basophil% 0.2 % (0-1); Hemoglobin 10.7 g/dl (12.0-15.0); Lymphocyte # 0.51 X10^3/ul (4.0); Lymphocyte % 8.3 % (19-41); Mean Corp Hgb Conc 29.7 g/gl (32-36); Mean Corpuscular Hgb 28.2 pg (27.0-32.0); Mean Platelet Vol. 9.2 fl (6.2-12.0); Monocyte# 0.03 X10^3/uL; Monocyte% 0.5 % (0-10); Neutrophil # 5.56 X10^3/uL (2.7-7.7); POSITIVE COUNT NO; POSITIVE DIFFERENTIAL YES; POSITIVE MORPHOLOGY NO; Platelet Count 218 K/mm3 (150-450); RBC Distribution Width CV 18.4 % (11.6-14.6); RBC Distribution Width SD 63.5 fl (35.1-43.9); Red Blood Count 3.79 M/mm3 (4.2-5.4); White Blood Count 6.1 K/mm3 (4.4-11.0)
[2018-07-23 06:19] LABS: Differential Indicated SCAN CRITERIA MET
[2018-07-23 07:25] LABS: Anion Gap 8 (5-15); BUN 31 mg/dL (7-18); BUN/Creat Ratio 31.2 RATIO (10-20); Calcium,Total 8.6 mg/dL (8.5-10.1); Chloride 109 mmol/L (98-107); EST Glomerular Filtration Rate 61 mL/min (>60); Est Glom Filt Rate - Afr Amer 73 mL/min (>60); Estimated Creatinine Clearance 56.71 ml/min; Glucose 204 mg/dL (74-106); Potassium 4.8 mmol/L (3.5-5.1); Sodium Level 142 mmol/L (136-145)
[2018-07-23] MEDS: Albuterol 2.5 MG/3 ML VIAL.NEB. INHALATION (08:42)
[2018-07-23] MEDS: Ascorbic Acid 500 MG Tablet PO (10:26)
[2018-07-23] MEDS: Multivitamins,Therapeutic Tablet 1 TABLET PO (10:26)
[2018-07-23] MEDS: Furosemide 40 MG/4 ML Vial IV ×2 (10:26→17:20)
[2018-07-23] MEDS: predniSONE 20 MG Tablet 40 MG PO (10:27)
[2018-07-23] MEDS: Insulin Lispro 100 UNIT/ML INSULN.PEN SC ×3 (10:27→17:20)
[2018-07-23] MEDS: Ipratropium/Albuterol Sulfate 3 ML AMPUL.NEB INHALATION ×4 (10:47→23:17)
[2018-07-23 12:16] LABS: Bedside Glucose 228 mg/dL (70-110)
--- NOTE | 2018-07-23 13:43 | PN_ITS ---
<Randall Orozco - Last Filed: 07/23/18 13:39> Patient Problems: Active and Suspected Problems (Last Reviewed 07/23/18 @ 03:27 by Billy Bowling MD) Acute hypoxemic respiratory failure (Acute) Subjective: Remains significantly SOB. Pt believes she has had about 50 lb fluid weight gain. She has a trujillo in place. She feels she was having difficulty emptying her bladder at home. Normally she ambulates with a walker at home. She does have lymphedema, but also had recent staph cellulitis. She is to follow up with the ymphedema clinic once the staph is fully resolved. Until then she is following with [facility]. - Physical Exam General: Alert, Oriented x3, Cooperative HEENT: Atraumatic, PERRLA, EOMI, Normocephalic Neck: Supple, No JVD, Negative Carotid Bruits Lungs: Clear to auscultation, Normal air movement Cardiovascular: Regular rate, No murmurs Abdomen: Bowel Sounds Present, Soft, Non Tender, Obese Extremities: Capillary Refill Less than 3 Seconds, Edema Skin: No rashes, No breakdown Musculoskeletal: No Tenderness to Palpation of Joints or Extremities Neurological: Cranial nerves II-XII grossly intact Psych/Mental Status: Normal Affect, Appropriate Vital Signs Temp Pulse Resp BP Pulse Ox 98 F 137 H 20 H 120/71 97 07/23/18 08:00 07/23/18 12:00 07/23/18 12:00 07/23/18 12:00 07/23/18 12:00 Oxygen Flow Rate (L/min) 3 Oxygen Delivery Method Nasal Cannula Weight: 453 lb 7.854 oz Body Mass Index (BMI) 72.8 Intake and Output for Last 24 Hours 07/21/18 07/22/18 07/23/18 23:59 23:59 23:59 Intake Total 673 / 673 Output Total 3550 / 3550 Balance -2877 / -2877 Laboratory Tests Past 24 Hrs 07/22/18 07/22/18 07/22/18 21:49 21:49 21:49 WBC 6.1 RBC 3.70 L Hgb 10.9 L Hct 35.1 L MCV 94.9 MCH 29.5 MCHC 31.1 L RDW 18.4 H RDW Differential 64.0 H Plt Count 226 MPV 9.2 Immature Gran % (Auto) 0.000 Neut % (Auto) 75.5 H Lymph % (Auto) 15.0 L [place] % (Auto) 7.2 Eos % (Auto) 1.8 Baso % (Auto) 0.5 Absolute Neuts (auto) 4.6 Absolute Lymphs (auto) 0.91 Total Counted Not Reportable Differential Comment Sodium 144 Potassium 4.4 Chloride 110 H Carbon Dioxide 25.0 Anion Gap 9 BUN 32 H Creatinine 1.13 H Estim Creat Clear Calc 50.18 Est GFR (MDRD) Af Amer 63 Est GFR (MDRD) Non-Af 52 L BUN/Creatinine Ratio 28.3 H Glucose 185 H Lactic Acid Calcium 8.5 Magnesium Troponin I < 0.015 B-Natriuretic Peptide 166.0 H TSH 07/22/18 07/22/18 07/23/18 21:49 22:15 05:51 WBC 6.1 RBC 3.79 L Hgb 10.7 L Hct 36.0 L MCV 95.0 MCH 28.2 MCHC 29.7 L RDW 18.4 H RDW Differential 63.5 H Plt Count 218 MPV 9.2 Immature Gran % (Auto) 0.000 Neut % (Auto) 91.0 H Lymph % (Auto) 8.3 L [place] % (Auto) 0.5 Eos % (Auto) 0.0 Baso % (Auto) 0.2 Absolute Neuts (auto) 5.6 Absolute Lymphs (auto) 0.51 L Total Counted Not Reportable Differential Comment Sodium Potassium Chloride Carbon Dioxide Anion Gap BUN Creatinine Estim Creat Clear Calc Est GFR (MDRD) Af Amer Est GFR (MDRD) Non-Af BUN/Creatinine Ratio Glucose Lactic Acid 1.2 Calcium Magnesium 2.1 Troponin I B-Natriuretic Peptide TSH 1.02 07/23/18 05:51 WBC RBC Hgb Hct MCV MCH MCHC RDW RDW Differential Plt Count MPV Immature Gran % (Auto) Neut % (Auto) Lymph % (Auto) [place] % (Auto) Eos % (Auto) Baso % (Auto) Absolute Neuts (auto) Absolute Lymphs (auto) Total Counted Differential Comment Sodium 142 Potassium 4.8 Chloride 109 H Carbon Dioxide 25.0 Anion Gap 8 BUN 31 H Creatinine 1.00 Estim Creat Clear Calc 56.71 Est GFR (MDRD) Af Amer 73 Est GFR (MDRD) Non-Af 61 BUN/Creatinine Ratio 31.2 H Glucose 204 H Lactic Acid Calcium 8.6 Magnesium Troponin I B-Natriuretic Peptide TSH POC Glucose 07/23/18 07/23/18 12:07 01:03 POC Glucose 228 H 168 H Medical Necessity - Tobacco Use Smoking Status: Former smoker Assessment/Plan All Active Problems (Last Reviewed 07/23/18 @ 03:27 by Billy Bowling MD) Acute hypoxemic respiratory failure (Acute) Acute kidney injury (Acute) Hyperkalemia (Acute) Digoxin toxicity (Acute) Vancomycin toxicity (Resolved) Bradycardia (Resolved) Acute on chronic diastolic (congestive) heart failure (Acute) Metabolic encephalopathy (Acute) Abscess of left lower extremity (Resolved) Abscess of right lower extremity (Resolved) Acute on chronic congestive heart failure (Resolved) Cellulitis of leg, right (Resolved) Diabetes with ulcer of lower extremity (Resolved) Methicillin resistant Staphylococcus aureus infection (Resolved) 1. Acute hypoxic respiratory failure 2/2 Acute diastolic CHF exacerbation, complicated by acute COPD exacerbation - Continue IV lasix, trujillo, I/O, steroids, aerosols. Pt reportedly is 50lbs up from baseline. 2. Afib with rvr - improving on cardizem dripZiggy Cox. 3. HUNTER - Bipap qhs 4. DMt2 - SSI, lantus, mealtime insulin. 5. Lymphedema, recent staph infection of legs - continue wound care, follow up with Dr. Martinez in the wound clinic 6. CKD III - improved. 7. Normocytic anemia - stable 6. Depression/Anx - snri. DVT ppx: eliquis MARY ANN planning: ptot, pt ambulatory in home This patient was seen by Randall Orozco PA-C under the supervision of Doctor Pb. <Ricardo Ambriz F - Last Filed: 07/23/18 17:21> - Physical Exam Vital Signs Temp Pulse Resp BP Pulse Ox 98 F 115 H 20 H 121/81 H 93 07/23/18 14:00 07/23/18 16:00 07/23/18 16:00 07/23/18 16:00 07/23/18 16:00 Oxygen Flow Rate (L/min) 3 Oxygen Delivery Method Nasal Cannula Weight: 453 lb 7.854 oz Body Mass Index (BMI) 72.8 Intake and Output for Last 24 Hours 07/21/18 07/22/18 07/23/18 23:59 23:59 23:59 Intake Total 673 / 673 Output Total 3550 / 3550 Balance -2877 / -2877 Laboratory Tests Past 24 Hrs 07/22/18 07/22/18 07/22/18 21:49 21:49 21:49 WBC 6.1 RBC 3.70 L Hgb 10.9 L Hct 35.1 L MCV 94.9 MCH 29.5 MCHC 31.1 L RDW 18.4 H RDW Differential 64.0 H Plt Count 226 MPV 9.2 Immature Gran % (Auto) 0.000 Neut % (Auto) 75.5 H Lymph % (Auto) 15.0 L [place] % (Auto) 7.2 Eos % (Auto) 1.8 Baso % (Auto) 0.5 Absolute Neuts (auto) 4.6 Absolute Lymphs (auto) 0.91 Total Counted Not Reportable Differential Comment Sodium 144 Potassium 4.4 Chloride 110 H Carbon Dioxide 25.0 Anion Gap 9 BUN 32 H Creatinine 1.13 H Estim Creat Clear Calc 50.18 Est GFR (MDRD) Af Amer 63 Est GFR (MDRD) Non-Af 52 L BUN/Creatinine Ratio 28.3 H Glucose 185 H Lactic Acid Calcium 8.5 Magnesium Troponin I < 0.015 B-Natriuretic Peptide 166.0 H TSH 07/22/18 07/22/18 07/23/18 21:49 22:15 05:51 WBC 6.1 RBC 3.79 L Hgb 10.7 L Hct 36.0 L MCV 95.0 MCH 28.2 MCHC 29.7 L RDW 18.4 H RDW Differential 63.5 H Plt Count 218 MPV 9.2 Immature Gran % (Auto) 0.000 Neut % (Auto) 91.0 H Lymph % (Auto) 8.3 L [place] % (Auto) 0.5 Eos % (Auto) 0.0 Baso % (Auto) 0.2 Absolute Neuts (auto) 5.6 Absolute Lymphs (auto) 0.51 L Total Counted Not Reportable Differential Comment Sodium Potassium Chloride Carbon Dioxide Anion Gap BUN Creatinine Estim Creat Clear Calc Est GFR (MDRD) Af Amer Est GFR (MDRD) Non-Af BUN/Creatinine Ratio Glucose Lactic Acid 1.2 Calcium Magnesium 2.1 Troponin I B-Natriuretic Peptide TSH 1.02 07/23/18 05:51 WBC RBC Hgb Hct MCV MCH MCHC RDW RDW Differential Plt Count MPV Immature Gran % (Auto) Neut % (Auto) Lymph % (Auto) [place] % (Auto) Eos % (Auto) Baso % (Auto) Absolute Neuts (auto) Absolute Lymphs (auto) Total Counted Differential Comment Sodium 142 Potassium 4.8 Chloride 109 H Carbon Dioxide 25.0 Anion Gap 8 BUN 31 H Creatinine 1.00 Estim Creat Clear Calc 56.71 Est GFR (MDRD) Af Amer 73 Est GFR (MDRD) Non-Af 61 BUN/Creatinine Ratio 31.2 H Glucose 204 H Lactic Acid Calcium 8.6 Magnesium Troponin I B-Natriuretic Peptide TSH POC Glucose 07/23/18 07/23/18 07/23/18 12:07 06:51 01:03 POC Glucose 228 H 205 H 168 H Code Visit Addendum: Dr. Ambriz I personally examined the patient and reviewed the chart. I agree with the above. 57-year-old very morbidly obese female with a history of A. fib, obstructive sleep apnea, type 2 diabetes, lymphedema, CKD 3, presenting with acute hypoxic respiratory failure secondary to acute diastolic CHF exacerbation comp located by acute COPD exacerbation. We will continue IV Lasix and steroids as well as nebulizer and will continue to monitor for improvement. Part of the diastolic CHF exacerbation may be related to the fact that she is also in A. fib with RVR necessitating a Cardizem drip. We will continue with her anticoagulation and as her heart rate improves we will plan on transitioning from IV Cardizem to p.o. Inpatient E&M: 13230 Subs Hosp L2
[2018-07-23 14:11] LABS: Bedside Glucose 205 mg/dL (70-110)
--- NOTE | 2018-07-23 16:19 | NURSING ---
Student nurse charting reviewed by this RN
[2018-07-23 17:20] LABS: Bedside Glucose 257 mg/dL (70-110)
[2018-07-23] MEDS: Acetaminophen 325 MG Tablet 650 MG PO (21:38)
[2018-07-23 22:01] LABS: Bedside Glucose 264 mg/dL (70-110)
[2018-07-24] VITALS (32 sets, daily range): BP systolic 99–131; BP diastolic 64–96; PULSE 81–140; RESP 16–29; TEMP 36.4–36.7; O2SAT 93–99
[2018-07-24] MEDS: Ipratropium/Albuterol Sulfate 3 ML AMPUL.NEB INHALATION ×4 (03:49→19:30)
[2018-07-24] MEDS: Acetaminophen 325 MG Tablet 650 MG PO (05:14)
[2018-07-24] MEDS: Collagenase 30gm Tube 1 APPLIC TOPICAL (05:30)
[2018-07-24 06:50] LABS: Bedside Glucose 248 mg/dL (70-110)
[2018-07-24] MEDS: Insulin Lispro 100 UNIT/ML INSULN.PEN SC ×6 (09:01→21:40)
[2018-07-24] MEDS: Gabapentin 400 MG Capsule PO ×4 (09:02→21:44)
[2018-07-24] MEDS: LORazepam 0.5 MG Tablet PO (09:02)
[2018-07-24] MEDS: APIXABAN 5 MG TABLET PO ×2 (09:03→21:43)
[2018-07-24] MEDS: Furosemide 40 MG/4 ML Vial IV ×2 (09:03→16:42)
[2018-07-24] MEDS: Ascorbic Acid 500 MG Tablet PO (09:03)
[2018-07-24] MEDS: Venlafaxine XR 75 MG Capsule PO ×2 (09:03→21:43)
[2018-07-24] MEDS: Multivitamins,Therapeutic Tablet 1 TABLET PO (09:04)
[2018-07-24] MEDS: predniSONE 20 MG Tablet 40 MG PO (09:04)
[2018-07-24] MEDS: Metoprolol Tartrate 50 MG Tablet PO ×2 (11:12→21:43)
[2018-07-24 11:45] LABS: Bedside Glucose 221 mg/dL (70-110)
--- NOTE | 2018-07-24 13:48 | PN_ITS ---
<Randall Orozco - Last Filed: 07/24/18 13:44> Patient Problems: Active and Suspected Problems (Last Reviewed 07/23/18 @ 03:27 by Billy Bowling MD) Acute hypoxemic respiratory failure (Acute) Subjective: Overall the patient feels substantially better. She states she has not felt this good in weeks. Unfortunately the patients heart rate continues to remain high and she has some palpitations. She takes 480 mg cardizem at home, and unfortunately we are not able to provide a higher dose of cardizem drip here. Metoprolol has been added. She has no dizziness/lh. She has a nonproductive cough. She has no fever or chills. LE edema is improving. Raya has good output - no discomfort. She remains week and feels that she needs to go to a care home for 1-2 weeks before going home, as she is weak. - Physical Exam General: Alert, Oriented x3, Cooperative HEENT: Atraumatic, PERRLA, EOMI, Normocephalic Neck: Supple, No JVD, Negative Carotid Bruits Lungs: Diminished, Rales Cardiovascular: Regular rate, No murmurs Abdomen: Bowel Sounds Present, Soft, Non Tender Extremities: No edema, Capillary Refill Less than 3 Seconds Skin: No rashes, No breakdown Musculoskeletal: No Tenderness to Palpation of Joints or Extremities Neurological: Cranial nerves II-XII grossly intact Psych/Mental Status: Normal Affect, Appropriate, Alert and oriented to time, place, person, mood and affect Vital Signs Temp Pulse Resp BP Pulse Ox 97.7 F L 94 24 H 117/77 93 07/24/18 13:00 07/24/18 13:00 07/24/18 13:00 07/24/18 13:00 07/24/18 13:00 Oxygen Flow Rate (L/min) 2 Oxygen Delivery Method Nasal Cannula Weight: 447 lb 8.614 oz Body Mass Index (BMI) 72.8 Intake and Output for Last 24 Hours 07/22/18 07/23/18 07/24/18 23:59 23:59 23:59 Intake Total 1624 / 1624 841.4 / 841.4 Output Total 5150 / 5150 575 / 575 Balance -3526 / -3526 266.4 / 266.4 POC Glucose 07/24/18 07/24/1818 11:09 06:47 21:44 POC Glucose 221 H 248 H 264 H 07/23/18 07/23/18 17:13 06:51 POC Glucose 257 H 205 H Medical Necessity - Tobacco Use Smoking Status: Former smoker Assessment/Plan All Active Problems (Last Reviewed 07/23/18 @ 03:27 by Billy Bowling MD) Acute hypoxemic respiratory failure (Acute) Acute kidney injury (Acute) Hyperkalemia (Acute) Digoxin toxicity (Acute) Vancomycin toxicity (Resolved) Bradycardia (Resolved) Acute on chronic diastolic (congestive) heart failure (Acute) Metabolic encephalopathy (Acute) Abscess of left lower extremity (Resolved) Abscess of right lower extremity (Resolved) Acute on chronic congestive heart failure (Resolved) Cellulitis of leg, right (Resolved) Diabetes with ulcer of lower extremity (Resolved) Methicillin resistant Staphylococcus aureus infection (Resolved) 1. Acute hypoxic respiratory failure 2/2 Acute diastolic CHF exacerbation, complicated by acute COPD exacerbation - Continue IV lasix, trujillo, I/O, steroids, aerosols. Pt reportedly is 50lbs up from baseline. She is diuresing well. Maintain trujillo for now. 2. Afib with rvr - cardizem drip maxed out. Beta katie added. Follow BP. If not improved with BB will consult cardiology. 3. HUNTER - Bipap qhs 4. DMt2 - SSI, lantus, mealtime insulin. 5. Lymphedema, recent staph infection of legs - continue wound care, follow up with Dr. Martinez in the wound clinic 6. CKD III - improved. 7. Normocytic anemia - stable 6. Depression/Anx - snri. DVT ppx: brett REESE planning: pt desires placement in SNF - continue PTOT. This patient was seen by Randall Orozco PA-C under the supervision of Doctor Pb. <Ricardo Ambriz - Last Filed: 07/24/18 14:19> - Physical Exam Vital Signs Temp Pulse Resp BP Pulse Ox 97.7 F L 94 24 H 117/77 93 07/24/18 13:00 07/24/18 13:00 07/24/18 13:00 07/24/18 13:00 07/24/18 13:00 Oxygen Flow Rate (L/min) 2 Oxygen Delivery Method Nasal Cannula Weight: 447 lb 8.614 oz Body Mass Index (BMI) 72.8 Intake and Output for Last 24 Hours 07/22/18 07/23/18 07/24/18 23:59 23:59 23:59 Intake Total 1624 / 1624 841.4 / 841.4 Output Total 5150 / 5150 575 / 575 Balance -3526 / -3526 266.4 / 266.4 POC Glucose 07/24/18 07/24/18 07/23/18 11:09 06:47 21:44 POC Glucose 221 H 248 H 264 H 07/23/18 17:13 POC Glucose 257 H Code Visit Addendum: Dr. Ambriz I personally examined the patient and reviewed the chart. I agree with the above. 57-year-old very morbidly obese female with a history of A. fib, obstructive sleep apnea, type 2 diabetes, lymphedema, CKD 3, presenting with acute hypoxic respiratory failure secondary to acute diastolic CHF exacerbation complicated by acute COPD exacerbation. She was also found to be in A. fib with RVR. She was started on Cardizem drip and is currently at 15 mg/h. Currently at the moment she feels great she has been diuresed and is receiving steroids as well as nebulizer treatments for her COPD today and we added metoprolol 50 mg twice daily because we cannot increase the drip and she still remains in RVR at times. She states that she was on 480 mg of Cardizem as an outpatient however she had difficulty getting to her primary care physician's office and insurance refused to pay for such a high dose without having seen a physician. She does want to go to a care home after discharge therefore will attempt to control on Cardizem and metoprolol combination if unsuccessful will consult cardiology for possible amiodarone and further suggestions. Inpatient E&M: 54634 Subs Hosp L2
[2018-07-24 16:25] LABS: Bedside Glucose 236 mg/dL (70-110)
[2018-07-24 22:10] LABS: Bedside Glucose 247 mg/dL (70-110)
[2018-07-25] VITALS (40 sets, daily range): BP systolic 107–144; BP diastolic 64–125; PULSE 75–127; RESP 16–40; TEMP 36.5–36.9; O2SAT 90–97
--- NOTE | 2018-07-25 04:01 | CPS ---
PT REFUSED TO WEAR BIPAP.
[2018-07-25 06:20] LABS: Anion Gap 10 (5-15); BUN 49 mg/dL (7-18); BUN/Creat Ratio 37.7 RATIO (10-20); Calcium,Total 8.4 mg/dL (8.5-10.1); Chloride 104 mmol/L (98-107); EST Glomerular Filtration Rate 44 mL/min (>60); Est Glom Filt Rate - Afr Amer 54 mL/min (>60); Estimated Creatinine Clearance 43.62 ml/min; Glucose 205 mg/dL (74-106); Potassium 4.8 mmol/L (3.5-5.1); Sodium Level 141 mmol/L (136-145)
[2018-07-25] MEDS: Ipratropium/Albuterol Sulfate 3 ML AMPUL.NEB INHALATION ×5 (06:37→22:41)
[2018-07-25 07:01] LABS: Bedside Glucose 212 mg/dL (70-110)
[2018-07-25] MEDS: Multivitamins,Therapeutic Tablet 1 TABLET PO (08:23)
[2018-07-25] MEDS: Gabapentin 400 MG Capsule PO ×4 (08:23→23:41)
[2018-07-25] MEDS: predniSONE 20 MG Tablet 40 MG PO (08:24)
[2018-07-25] MEDS: Insulin Lispro 100 UNIT/ML INSULN.PEN SC ×7 (08:25→23:39)
[2018-07-25] MEDS: traMADol 50 MG Tablet PO (10:17)
[2018-07-25] MEDS: Ascorbic Acid 500 MG Tablet PO (10:18)
[2018-07-25] MEDS: Metoprolol Tartrate 50 MG Tablet PO (10:18)
[2018-07-25] MEDS: APIXABAN 5 MG TABLET PO ×2 (10:19→23:44)
[2018-07-25] MEDS: Collagenase 30gm Tube 1 APPLIC TOPICAL (10:19)
[2018-07-25] MEDS: Furosemide 40 MG/4 ML Vial IV ×2 (10:21→17:58)
[2018-07-25] MEDS: 0.9% NaCl Peripheral Flush Adult/Peds IV ×2 (10:22→17:58)
[2018-07-25] MEDS: Venlafaxine XR 75 MG Capsule PO ×2 (10:52→23:44)
--- NOTE | 2018-07-25 10:58 | CASEMGMT ---
DAVID GARCIA assessment: Face to Face with patient for initial transition planning/care coordination assessment. DAVID GARCIA introduced self and role at [facility], pt voices understanding and consents to assessment at this time. Pt is sitting up in bed in no distress at this time. Pt is A/Ox4 at this time and answers all questions appropriately at this time. Care providers, pharmacy, and demographics verified/updated at this time. PCP: [facility] Specialists: Michelle Contreras Pharmacy: [facility] Insurance: MMO Prescription Benefit: [employer] Living Will/HPOA: Pt has HPOA but not LW and HPOA is on file at [facility] at this time. Pt's HPOA is son, Blake Young. Pt is interested on LW info at this time and paperwork provided as well as pamphlet for [facility] Inventory Control Associate. LNOK: Emili Hidalgo, mother; Blake Young, son/HPOA; Zakiya Young, daughter Living Arrangements: Pt states lives with mother and daughter in 1 story home and states no concerns at home at this time. Transportation: Pt states [facility] transports her to wound clinic but they will not transport her to PCP appt's. Pt states that she has 'been too weak' to get in her van with her family to drive and has not seen PCP in about 14 months. DME/HHC: Pt has the following DME: bariatric shower chair x2, raised toilet seat, walker, w/c, ramp into home, grab bars, nebulizer, and bipap(that she does not use, per pt). Pt states has been to [facility] in the past and refuses to return there. Pt states has also been to [facility] in [place] and then was also at [facility] and would like to return there at this time as she feels she is unable to return home. Pt states she will need bariatric bed at SNF and that she will bring own walker and w/c. Referral to [facility], voices understanding. Pt states is also working on getting set up with palliative care. Pt is current with [facility] for RN, PT and Wandy at [facility] is aware of pt requesting SNF at this time. Pt does state concerns with going home at this time and would like to go to SNF at discharge. Pt states no further concerns/needs at this time. Pt states is disabled. Pt states has not smoked since 2004 and states does not drink. Plan: [facility], acceptance and precert pending Mary Kay HERNANDEZ CM
[2018-07-25 11:50] LABS: Bedside Glucose 265 mg/dL (70-110)
--- NOTE | 2018-07-25 12:02 | NURSING ---
wound photo: right lower leg
--- NOTE | 2018-07-25 12:02 | NURSING ---
wound photo: left lower leg
--- NOTE | 2018-07-25 12:57 | CASEMGMT ---
MEÑO spoke with Harleen at [facility] and they do have beds available. MEÑO spoke with Erin in the CM office and she will fax referral. Chantell STARR MSW
--- NOTE | 2018-07-25 13:18 | CASEMGMT ---
Per MEÑO Abdul, referral needs sent to [facility]. Attempted to reach Sujatha, sandip, but she was unavailable. Rfid Engineer took a message that referral would be faxed over. Fax confirmation received. Erin Stern LPN Clinical Support
--- NOTE | 2018-07-25 13:50 | CASEMGMT ---
Received call from Harleen at [facility], wanting to know if patient has her own bi-pap at home. Per SW, patient does, but does not utilize. Harleen updated via fax, included wound nurse documentation as well. Erin Stern LPN Clinical Support
--- NOTE | 2018-07-25 14:26 | CASEMGMT ---
Received call from Sujatha at [facility], beth started but likely won't hear until late tomorrow. Updated Chantell, MEÑO and SW stated that patient will take her own walker and wheelchair to facility. Sujatha updated via phone of patient bringing own walker and wheelchair. Erin Stern LPN Clinical Support
--- NOTE | 2018-07-25 14:30 | PCM.PROGNOTE ---
Patient Problems: Active and Suspected Problems (Last Reviewed 07/23/18 @ 03:27 by Billy Bwoling MD) Acute hypoxemic respiratory failure (Acute) Subjective: HR improved. No further palpitations. No CP/Heaviness. Breathing improved. She remains on o2 - does not use at home. No fever/wbc elevation. Trujillo in place, no discomfort. - Physical Exam General: Alert, Oriented x3, Cooperative HEENT: Atraumatic, PERRLA, EOMI, Normocephalic Neck: Supple, No JVD, Negative Carotid Bruits Lungs: Rales Cardiovascular: No murmurs, Irregular Rate Abdomen: Bowel Sounds Present, Soft, Non Tender, Obese Extremities: Capillary Refill Less than 3 Seconds, Edema Skin: No rashes, No breakdown Musculoskeletal: No Tenderness to Palpation of Joints or Extremities Neurological: Cranial nerves II-XII grossly intact Psych/Mental Status: Normal Affect, Appropriate, Alert and oriented to time, place, person, mood and affect Vital Signs Temp Pulse Resp BP Pulse Ox 97.9 F 85 18 112/73 95 07/25/18 12:19 07/25/18 13:22 07/25/18 13:22 07/25/18 13:22 07/25/18 13:22 Oxygen Flow Rate (L/min) 2 Oxygen Delivery Method Nasal Cannula Weight: 448 lb 10.251 oz Body Mass Index (BMI) 72.8 Intake and Output for Last 24 Hours 07/23/18 07/24/18 07/25/18 23:59 23:59 23:59 Intake Total 1624 / 1624 2112.8 / 2112.8 634.8 / 634.8 Output Total 5150 / 5150 1850 / 1850 900 / 900 Balance -3526 / -3526 262.8 / 262.8 -265.2 / -265.2 Microbiology Past 72 Hours 07/22/18 22:15 Blood Culture - Preliminary Blood Culture (Wb) #2 - Anticubital Right No growth in 48 hours. 07/22/18 22:10 Blood Culture - Preliminary Blood Culture (Wb) - Left Hand No growth in 48 hours. Laboratory Tests Past 24 Hrs 07/25/18 05:20 Sodium 141 Potassium 4.8 Chloride 104 Carbon Dioxide 27.0 Anion Gap 10 BUN 49 H Creatinine 1.30 H Estim Creat Clear Calc 43.62 Est GFR (MDRD) Af Amer 54 L Est GFR (MDRD) Non-Af 44 L BUN/Creatinine Ratio 37.7 H Glucose 205 H Calcium 8.4 L POC Glucose 07/25/18 07/25/18 07/24/18 11:42 06:57 21:40 POC Glucose 265 H 212 H 247 H 07/24/18 16:15 POC Glucose 236 H Medical Necessity - Tobacco Use Smoking Status: Former smoker Assessment/Plan All Active Problems (Last Reviewed 07/23/18 @ 03:27 by Billy Bowling MD) Acute hypoxemic respiratory failure (Acute) Acute kidney injury (Acute) Hyperkalemia (Acute) Digoxin toxicity (Acute) Vancomycin toxicity (Resolved) Bradycardia (Resolved) Acute on chronic diastolic (congestive) heart failure (Acute) Metabolic encephalopathy (Acute) Abscess of left lower extremity (Resolved) Abscess of right lower extremity (Resolved) Acute on chronic congestive heart failure (Resolved) Cellulitis of leg, right (Resolved) Diabetes with ulcer of lower extremity (Resolved) Methicillin resistant Staphylococcus aureus infection (Resolved) 1. Acute hypoxic respiratory failure 2/2 Acute diastolic CHF exacerbation, complicated by acute COPD exacerbation - Continue IV lasix, trujillo, I/O, steroids, aerosols. Pt reportedly is 50lbs up from baseline. Weight is down, poor diuresis yesterday. Maintain trujillo for now. -Echo EF 45%, RVSP 44 mmHg, D shaped septum, 1-2+ MVI. 2. Afib with rvr - cardizem to po 30 tid, lopressor to 100 bid. 3. HUNTER - Bipap qhs 4. DMt2 - SSI, lantus, mealtime insulin. 5. Lymphedema, recent staph infection of legs - continue wound care, follow up with Dr. Martinez in the wound clinic 6. CKD III - bumped up. Recheck in AM. May need to decrease lasix. 7. Normocytic anemia - stable 6. Depression/Anx - snri. DVT ppx: brett REESE planning: pt desires placement in SNF - continue PTOT. This patient was seen by Randall Orozco PA-C under the supervision of Doctor Hollingsworth
[2018-07-25] MEDS: dilTIAZem 30 MG Tablet PO ×2 (15:49→23:39)
[2018-07-25] MEDS: Acetaminophen 325 MG Tablet 650 MG PO ×2 (16:51→23:44)
[2018-07-25 17:07] LABS: Bedside Glucose 269 mg/dL (70-110)
--- NOTE | 2018-07-25 23:30 | CPS ---
Pt refuses at this time
[2018-07-25] MEDS: Metoprolol Tartrate 100 MG Tablet PO (23:41)
[2018-07-26] VITALS (10 sets, daily range): BP systolic 108–125; BP diastolic 61–71; PULSE 72–105; RESP 18–19; TEMP 36.6–37; O2SAT 93–96
[2018-07-26 00:10] LABS: Bedside Glucose 228 mg/dL (70-110)
[2018-07-26] MEDS: Ipratropium/Albuterol Sulfate 3 ML AMPUL.NEB INHALATION ×3 (02:57→10:45)
[2018-07-26] MEDS: dilTIAZem 30 MG Tablet PO ×2 (05:37→13:38)
--- NOTE | 2018-07-26 05:55 | RAD_ITS ---
STUDY: X-RAY CHEST REASON FOR EXAM: Female, 57 years old. Shortness of breath, dyspnea TECHNIQUE: Single AP portable view of the chest. COMPARISON: 07/22/2018. 12/24/2017. FINDINGS: There is no focal parenchymal abnormality. Bilateral prominent central vasculature and han without change. There is no demonstrated pleural abnormality. There is stable moderate cardiac enlargement. Normal mediastinum and han. Normal visualized pulmonary arteries. There is atherosclerotic calcification of the aortic arch with tortuosity. There are diffuse degenerative changes of the visualized thoracic spine. Normal visualized ribs, clavicles, and shoulders. There is no demonstrated abnormality of the visualized soft tissue structures of the upper abdomen. RAD/Chest 1 View (Portable) IMPRESSION: Stable cardiac enlargement, probable mild edema without change. Electronically Signed: Elza Ellis MD at 5:20 EST , Service support ,
[2018-07-26 06:22] LABS: Anion Gap 9 (5-15); BUN 46 mg/dL (7-18); Calcium,Total 8.4 mg/dL (8.5-10.1); Chloride 104 mmol/L (98-107); Creatinine, Serum 1.15 mg/dL (0.55-1.02); EST Glomerular Filtration Rate 51 mL/min (>60); Est Glom Filt Rate - Afr Amer 62 mL/min (>60); Estimated Creatinine Clearance 49.31 ml/min; Glucose 183 mg/dL (74-106); Potassium 4.6 mmol/L (3.5-5.1); Sodium Level 141 mmol/L (136-145)
[2018-07-26 06:56] LABS: Bedside Glucose 188 mg/dL (70-110)
[2018-07-26] MEDS: Insulin Lispro 100 UNIT/ML INSULN.PEN SC ×4 (08:53→11:55)
[2018-07-26] MEDS: 0.9% NaCl Peripheral Flush Adult/Peds IV (08:54)
[2018-07-26] MEDS: Gabapentin 400 MG Capsule PO ×2 (08:55→13:38)
[2018-07-26] MEDS: Metoprolol Tartrate 100 MG Tablet PO (08:55)
[2018-07-26] MEDS: Venlafaxine XR 75 MG Capsule PO (08:55)
[2018-07-26] MEDS: Ascorbic Acid 500 MG Tablet PO (08:55)
[2018-07-26] MEDS: Multivitamins,Therapeutic Tablet 1 TABLET PO (08:55)
[2018-07-26] MEDS: predniSONE 20 MG Tablet 40 MG PO (08:55)
[2018-07-26] MEDS: APIXABAN 5 MG TABLET PO (08:56)
[2018-07-26] MEDS: Furosemide 40 MG/4 ML Vial IV (08:56)
[2018-07-26] MEDS: Acetaminophen 325 MG Tablet 650 MG PO (10:51)
[2018-07-26] MEDS: LORazepam 0.5 MG Tablet PO ×2 (10:51→14:55)
--- NOTE | 2018-07-26 11:29 | PCM.TXEXTCAR ---
- Diet 07/23/18 00:21 Diet: Cardiac/Low Cholesterol Food consistency:: Regular Liquid Consistency:: Regular/Thin Diet Comments: No concentrated sweets. - Routine Orders/Code Status Suppository Type: Dulcolax 10mg Suppository Frequency: Daily PRN O2 Frequency: PRN Keep PO Greater than or Equal to (%): 89 Routine Lab Work: CBC - 1 week, BMP - 3 days Code Status: Full Code - Wound(s) Left inner ankle Wound Type: healing stasis ulcer Dressing Change: Dry Sterile Dressing Left outer leg Wound Type: Neuropathic/Diabetic Foot Ulcer Right outer leg Wound Type: Neuropathic/Diabetic Foot Ulcer right posterior lower leg Wound Type: Stasis Ulcer Dressing Change: AntiMicrobial (Aquacel AG, etc) left posterior lower leg Wound Type: Stasis Ulcer Dressing Change: AntiMicrobial (Aquacel AG, etc) - Therapies Physical Therapy: Eval and Treat Occupational Therapy: Eval and Treat - Problem/Diagnosis (1) Acute on chronic diastolic (congestive) heart failure Status: Acute Current Visit: No (2) Acute hypoxemic respiratory failure Status: Acute Current Visit: Yes (3) Atrial fibrillation with RVR Status: Chronic Current Visit: Yes (4) COPD exacerbation Status: Chronic Current Visit: Yes (5) Lymphedema Status: Chronic Current Visit: Yes (6) Depression Status: Chronic Current Visit: Yes (7) Hypertension Status: Chronic Current Visit: No (8) Iron deficiency anemia, unspecified Status: Chronic Current Visit: No (9) Morbid obesity Status: Chronic Current Visit: No (10) Nonhealing ulcer of multiple sites of left lower extremity with fat layer exposed Status: Chronic Current Visit: No (11) Pulmonary hypertension Status: Chronic Current Visit: No (12) Sleep apnea Status: Chronic Current Visit: No (13) Type 2 diabetes mellitus Status: Chronic Current Visit: No - Allergies/Procedures Done in Hospital Allergies/Adverse Reactions: Allergies latex Allergy (Verified 07/22/18 21:42) Itching pentazocine lactate [From Talwin] Allergy (Verified 07/22/18 21:42) Itching phenobarbital Allergy (Verified 07/22/18 21:42) Itching tree nut Allergy (Verified 07/22/18 21:42) Anaphylaxis codeine Adverse Reaction (Verified 07/22/18 21:42) Upset Stomach Procedures: 2-D Echocardiogram - Type of Care/Length of Stay Estimated LOS: Convalescent Care Less Than 30 days Type of Care Needed: Skilled Rehab Potential: Fair Prognosis: Fair - Additional Orders/Day of Discharge Day of Discharge: 07/26/18 - Dietary and Speech Recommendations Dietitian Recommendations/Changes: Rec diet change to 2000 miguel ángel Cardiac/ low sodium w/ fluid restriction. Rec Josafat bid - if ordered rec d/c ONS medpass - Follow Up Care Primary Care Physician: Rajesh Reynolds [Primary Care Provider] - Please follow up with your Primary Care Physician in: 2 weeks Please Follow Up With: Oral Suazo MD When: 3-4 weeks
[2018-07-26 12:06] LABS: Bedside Glucose 170 mg/dL (70-110)
--- NOTE | 2018-07-26 12:16 | CASEMGMT ---
MEÑO received call from [facility] and they received insurance authorization. MEÑO let physician know and the plan is to d/c today. Chantell STARR MSW
--- NOTE | 2018-07-26 13:34 | CASEMGMT ---
Addendum entered by Chantell Batista 07/26/18 13:40: SW was able to let patient know about d/c. She said she would call family. Chantell MONTGOMERY Original Note: Faxed orders to [facility]. Completed convalescent on HENS. Delivery Driver/Customer Service set up bariatric transport for 3p. SW notified Sujatha at [facility] of spanish moss picker time. RN is also aware. SW went to tell patient, but she did not wake up for SW. SW will try again. Plan: d/c to [facility] under skilled level of care [facility] Chantell STARR PRESSROOM SUPERVISOR
[2018-07-26] MEDS: Polyethylene Glycol 3350 17 GM PACKET PO (13:38)
--- NOTE | 2018-07-26 14:53 | PCM.DC.SUM ---
Discharge Date and Diagnosis - Problem List Patient Problems: Active and Suspected Problems (Last Reviewed 07/23/18 @ 03:27 by Billy Bowling MD) Acute hypoxemic respiratory failure (Acute) Date of Admission: 07/22/18 Date of Discharge: 07/26/18 - Primary Discharge Diagnosis Active and Suspected Problems (Last Reviewed 07/23/18 @ 03:27 by Billy Bowling MD) Acute hypoxemic respiratory failure (Acute) 2/2 Acute intermediate EF CHF and COPD exacerbation, pulmonary htn. Afib with RVR HUNTER noncompliant with BiPAP DMt2 Lymphedema with old MRSA+ wounds CKD III Normocytic anemia Depression/Anxiety - Secondary Discharge Diagnosis Chronic Problems (Last Reviewed 07/23/18 @ 03:27 by Billy Bowling MD) Ulcer of right lower extremity with fat layer exposed (Chronic) Ulcer of left lower extremity with fat layer exposed (Chronic) Venous insufficiency of both lower extremities (Chronic) Hx MRSA infection (Chronic) COPD exacerbation (Chronic) Lymphedema (Chronic) Depression (Chronic) Atrial fibrillation with RVR (Chronic) Chronic acquired lymphedema (Chronic) Nonhealing ulcer of multiple sites of left lower extremity with fat layer exposed (Chronic) Iron deficiency anemia, unspecified (Chronic) Sleep apnea (Chronic) Poor compliance with CPAP treatment (Chronic) Biatrial enlargement (Chronic) Non-healing wound (Chronic) Chronic anticoagulation (Chronic) Diastolic CHF, chronic (Chronic) Pulmonary hypertension (Chronic) Morbid obesity (Chronic) Chronic atrial fibrillation (Chronic) Type 2 diabetes mellitus (Chronic) Hypertension (Chronic) Hospital Course and Treatment Imaging Results: RAD/Chest 1 View (Portable) IMPRESSION: There is moderate enlargement of the cardiac silhouette with mild edema. There is no obvious effusion. RAD/Chest 1 View (Portable) IMPRESSION: Stable cardiac enlargement, probable mild edema without change. 07/26/18 05:55 Chest 1 View (Portable) [RAD] AM (NON MEDS) Echo: Interpretation Summary The study was technically difficult. Mild global left ventricular systolic dysfunction. The estimated ejection fraction is 45 %. D shaped septum in systole and diastole. Mildly dilated right ventricle. Mild global right ventricular systolic dysfunction. The left atrium is moderately enlarged. The right atrium is moderately enlarged. There is mild mitral annular calcification. Mild papillary muscle dysfunction of the mitral valve. Mild-Moderate (1-2+) eccentric mitral valve insufficiency. Mild (1+) tricuspid valve insufficiency. Aortic sclerosis, no stenosis. Mild (1+) pulmonic valve insufficiency. Right ventricular systolic pressure estimated to be 44 mmHg. Unable to assess diastolic dysfunction. Consultations 07/23/18 00:20 Consult: Onc/Wound/engraver jewelry Routine Comment: BILATERAL LEG WOUND Operations: None Procedures: 2-D Echocardiogram Summary of Care Provided: Hospital Course: The patient is a 57 year old F with pmhx of diastolic CHF, COPD, Morbid obesity, COPD, HTN, chronic Afib, lymphedema and staph + chronic wounds for which she follows at the wound care center,HUNTER noncompliant with Bipap, chronic anemia, depression and anxiety, who presented to the ER from home with increased SOB and LE edema. She was found to have CHF exacerbation and reported difficulty urinating and increased 50 lb weight gain recently. She was admitted to the PCU and placed on IV lasix, and oral steroids. KRISTEN wraps were provided, O2 was provided by [facility], which she does not use at home. Bipap was offered but she refused to use it while here. She was placed on SSI with increased doses of insulin. She was provided with wound care and dressing changes for her lymphedema. She developed Afib with RVR while here. She reported that her cardizem dose of 480 mg daily had been reduced to 120 qd as her PCP did not feel comfortable prescribing it at that dose - she was placed on 480 after a hospital admission last year but never followed up with a waiter/waitress club. She was given IV cardizem and started on lopressor. Her rate was controlled and she was transitioned to PO cardizem and lopressor. Her rate remained controlled and she continued to diurese with good weight loss. Her echo showed intermediate EF of 45%, mild pulmonary HTN, D shaped septum She desired to be placed in SNF as she has had increasing difficulty walking at home. She was seen by [facility] and determined to need further skilled and was approved to go to [facility]. She was transitioned to PO lasix. She will need continued lymphedema wound care at the SNF. She informed me that she will be referred to the lymphedema clinic by her wound clinic when her chronic LE wounds have resolved. She will need her BMP and weights followed. She will need referral to a waiter/waitress club - I have recommended Dr. Suazo in 3-4 weeks. She will need PCP f/u in 2 weeks. Please continue to monitor her blood sugars and adjust her insulin as needed. She will go on a prednisone taper and her insulin needs may change. We deferred starting an KRISTEN inhibitor as her BP is running low on the new doses of cardizem and lopressor. Her catheter was maintained as she was having difficulty voiding prior to admission, and she will need a voiding trial with discontinuation of the catheter in the next 3-5 days. She should continue Bipap as she is prescribed at home, however as noted she does not wear it - she did not wear it during this admission altho it was provided. She was discharged to SNF in stable condition. This patient was seen by Randall Orozco PA-C under the supervision of Dr. Hollingsworth. [] Patient Problems: Active and Suspected Problems (Last Reviewed 07/23/18 @ 03:27 by Billy Bowling MD) Acute hypoxemic respiratory failure (Acute) - Physical Exam General: Alert, Oriented x3, Cooperative HEENT: Atraumatic, PERRLA, EOMI, Normocephalic Neck: Supple, No JVD, Negative Carotid Bruits Lungs: Clear to auscultation, Normal air movement Cardiovascular: No murmurs, Murmur Abdomen: Bowel Sounds Present, Soft, Non Tender, Obese Extremities: Capillary Refill Less than 3 Seconds, Edema Skin: No rashes, No breakdown Musculoskeletal: No Tenderness to Palpation of Joints or Extremities Neurological: Cranial nerves II-XII grossly intact Psych/Mental Status: Normal Affect, Appropriate, Alert and oriented to time, place, person, mood and affect Vital Signs Temp Pulse Resp BP Pulse Ox 98.0 F 102 H 18 125/67 H 94 07/26/18 13:44 07/26/18 13:44 07/26/18 13:44 07/26/18 13:44 07/26/18 13:44 Oxygen Flow Rate (L/min) 2 Oxygen Delivery Method Nasal Cannula Weight: 447 lb 12.141 oz Body Mass Index (BMI) 72.8 Intake and Output for Last 24 Hours 07/24/18 07/25/18 07/26/18 23:59 23:59 23:59 Intake Total 2112.8 / 2112.8 1673.8 / 1673.8 360 / 360 Output Total 1850 / 1850 3375 / 3375 1700 / 1700 Balance 262.8 / 262.8 -1701.2 / -1701.2 -1340 / -1340 Microbiology Past 72 Hours 07/22/18 22:15 Blood Culture - Preliminary Blood Culture (Wb) #2 - Anticubital Right No growth in 48 hours. 07/22/18 22:10 Blood Culture - Preliminary Blood Culture (Wb) - Left Hand No growth in 48 hours. Laboratory Tests Past 24 Hrs 07/26/18 05:40 Sodium 141 Potassium 4.6 Chloride 104 Carbon Dioxide 28.0 Anion Gap 9 BUN 46 H Creatinine 1.15 H Estim Creat Clear Calc 49.31 Est GFR (MDRD) Af Amer 62 Est GFR (MDRD) Non-Af 51 L BUN/Creatinine Ratio 40.0 H Glucose 183 H Calcium 8.4 L POC Glucose 07/26/18 07/26/18 07/25/18 11:52 06:52 23:37 POC Glucose 170 H 188 H 228 H 07/25/18 16:40 POC Glucose 269 H Discharge Diet: Low fat/ Low Cholesterol, 1800 Calorie Control Diet, 2000 mg Sodium Diet Discharge Activity: Return to Normal Activity Home Medications: Medications to take at Discharge albuterol sulfate HFA 90 mcg/actuation aerosol inhaler 2 puff INHALATION Q4H PRN g 08/26/17 fluticasone 50 mcg/actuation nasal spray,suspension 2 spray INTRANASAL DAILY 08/26/17 Budesonide/Formoterol 160/4.5 [Symbicort 160/4.5 Mcg Inhaler (SP)] 1 inh INHALATION DAILY 12/06/17 Acetaminophen [Pain Relief Extra Strength] 650 mg PO Q6H 12/24/17 Apixaban [Eliquis] 5 mg PO BID 03/07/18 Gabapentin [Neurontin] 400 mg PO 4X/DAY 03/07/18 Insulin Lispro [Humalog] 6 unit SQ TIDCM 03/07/18 Lorazepam [Ativan] 0.5 mg PO Q6H PRN PRN 03/07/18 Multivitamin [Daily Multiple Vitamin] 1 each PO DAILY 03/07/18 Venlafaxine HCl [Effexor Xr] 75 mg PO BID 03/07/18 Nut.tx.gluc Intol,Lf,Soy/Fiber [Boost Glucose Control Liquid] 237 ml PO BID 06/07/18 Albuterol Aerosols [Ventolin Aerosols] 2.5 mg INHALATION Q2H PRN PRN vial.neb. 07/26/18 Diltiazem CD [Cardizem CD] 120 mg PO DAILY #1 capsule 07/26/18 Insulin Glargine [Lantus SoloStar Pen] 12 units SC QHS pen 07/26/18 Ipratropium/Albuterol Sulfate [Duoneb] 3 ml INHALATION Q4H.RT ampul.neb 07/26/18 Metoprolol Tartrate [Lopressor (beta katie)] 100 mg PO BID tablet 07/26/18 Potassium Chloride [K-Dur] 40 meq PO DAILYCM tablet 07/26/18 Prednisone 10 mg PO DAILY #18 tablet 07/26/18 Following Prescrptions Were Given to Patient: Diltiazem CD [Cardizem CD] 120 mg PO DAILY #1 capsule Prednisone 10 mg PO DAILY #18 tablet Primary Care Physician: Rajesh Reynolds [Primary Care Provider] - Please follow up with your Primary Care Physician in: 2 weeks Please Follow Up With: Oral Suazo MD When: 3-4 weeks Disposition: Senior Care facility Minutes spent on discharge:: 35 Patient Condition:: Stable Medical Necessity - Tobacco Use Smoking Status: Former smoker Meaningful Use Info Meaningful Use Diagnoses (Choose all that apply): CHF - CHF KRISTEN/ARB ordered at discharge?: No Reason KRISTEN/ARB not ordered?: Hypotension Documented LVEF (%): 45
--- OUTSIDE RECORDS SUMMARY | 2018-09-16 17:46 | XMS RPT_ITS ---
:1960 Author Organization OHIP Support Name Relationship Address Phone D Unavailable Unavailable Unavailable MELODY HERNANDEZ Unavailable [address] + [place] [address] WIESEN, TAMI Unavailable [address] + [address] [place] [address] D Unavailable Unavailable Unavailable MARY(MELODY VILLA Unavailable [address] + [place] [address] WIVICENTE, TAMI Unavailable [address] + [address] [place] [address] D Unavailable Unavailable Unavailable MELODY HERNANDEZ Unavailable [address] + [place] [address] ANDREA, TAMI Unavailable [address] + [address] [place] [address] D Unavailable Unavailable Unavailable MELODY HERNANDEZ (POA) Unavailable [address] + [place] [address] ANDREA TAMI Unavailable [address] + [address] [place] [address] D Unavailable Unavailable Unavailable MELODY HERNANDEZ (POA) Unavailable [address] + [place] [address] ANDREA, TAMI Unavailable [address] + [address] [place] [address] D Unavailable Unavailable Unavailable MELODY HERNANDEZ (POA) Unavailable [address] + [place] [address] ANDREA, TAMI Unavailable [address] + [address] [place] [address] D Unavailable Unavailable Unavailable MELODY HERNANDEZ (POA) Unavailable [address] + [place] [address] WIESEN, TAMI Unavailable [address] + [address] [place] [address] D Unavailable Unavailable Unavailable MELODY HERNANDEZ Unavailable [address] + [place] [address] FIONA MENDEZOMI Unavailable [address] + [address] [place] [address] D Unavailable Unavailable Unavailable MELODY HERNANDEZ Unavailable [address] + [place] [address] FIONA MENDEZOMI Unavailable [address] + [address] [place] [address] D Unavailable Unavailable Unavailable MELODY HERNANDEZ Unavailable [address] + [place] [address] TAMI MENDEZ Unavailable [address] + [address] [place] [address] D Unavailable Unavailable Unavailable MELODY HERNANDEZ Unavailable [address] + [place] [address] TAMI MENDEZ Unavailable [address] + [address] [place] [address] D Unavailable Unavailable Unavailable MELODY HERNANDEZ Unavailable [address] + [place] [address] TAMI MENDEZ Unavailable [address] + [address] [place] [address] D Unavailable Unavailable Unavailable MELODY HERNANDEZ Unavailable [address] + [place] [address] TAMI MENDEZ Unavailable [address] + [address] [place] [address] D Unavailable Unavailable Unavailable MELODY HERNANDEZ Unavailable [address] + [place] [address] FIONA MENDEZOMI Unavailable [address] + [address] [place] [address] D Unavailable Unavailable Unavailable MELODY HERNANDEZ Unavailable [address] + [place] [address] FIONA MENDEZOMI Unavailable [address] + [address] [place] [address] D Unavailable Unavailable Unavailable MELODY HERNANDEZ Unavailable [address] + [place] [address] FIONA MENDEZOMI Unavailable [address] + [address] [place] [address] D Unavailable Unavailable Unavailable MELODY HERNANDEZ Unavailable [address] + [place] [address] FIONA MENDEZOMI Unavailable [address] + [address] [place] [address] D Unavailable Unavailable Unavailable MELODY HERNANDEZ Unavailable [address] + [place] [address] FIONA MENDEZOMI Unavailable [address] + [address] [place] [address] MELODY HERNANDEZ Unavailable Unavailable + D Unavailable Unavailable Unavailable MELODY HERNANDEZ Unavailable [address] + [place] [address] TAMI MENDEZ Unavailable [address] + [address] [place] [address] D Unavailable Unavailable Unavailable MELODY HERNANDEZ Unavailable [address] + [place] [address] TAMI MENDEZ Unavailable [address] + [address] [place] [address] D Unavailable Unavailable Unavailable MELODY HERNANDEZ Unavailable [address] + [place] [address] TAMI MENDEZ Unavailable [address] + [address] [place] [address] D Unavailable Unavailable Unavailable MELODY HERNANDEZ Unavailable [address] + [place] [address] FIONA MENDEZOMI Unavailable [address] + [address] [place] [address] D Unavailable Unavailable Unavailable MELODY HERNANDEZ Unavailable [address] + [place] [address] FIONA MENDEZOMI Unavailable [address] + [address] [place] [address] D Unavailable Unavailable Unavailable MELODY HERNANDEZ Unavailable [address] + [place] [address] ANDREA TAMI Unavailable [address] + [address] [place] [address] D Unavailable Unavailable Unavailable MELODY HERNANDEZ Unavailable [address] + [place] [address] ANDREA, TAMI Unavailable [address] + [address] [place] [address] D Unavailable Unavailable Unavailable MELODY HERNANDEZ Unavailable [address] + [place] [address] ANDREA TAMI Unavailable [address] + [address] [place] [address] D Unavailable Unavailable Unavailable MELODY HERNANDEZ Unavailable [address] + [place] [address] ANDREA TAMI Unavailable [address] + [address] [place] [address] D Unavailable Unavailable Unavailable MELODY HERNANDEZ Unavailable [address] + [place] [address] ANDREA TAMI Unavailable [address] + [address] [place] [address] D Unavailable Unavailable Unavailable MELODY HERNANDEZ Unavailable [address] + [place] [address] ANDREA TAMI Unavailable [address] + [address] [place] [address] D Unavailable Unavailable Unavailable MELODY HERNANDEZ Unavailable [address] + [place] [address] ANDREA TAMI Unavailable [address] + [address] [place] [address] D Unavailable Unavailable Unavailable MELODY HERNANDEZ Unavailable [address] + [place] [address] ANDREA TAMI Unavailable [address] + [address] [place] [address] D Unavailable Unavailable Unavailable MELODY HERNANDEZ Unavailable [address] + [place] [address] ANDREA TAMI Unavailable [address] + [address] [place] [address] D Unavailable Unavailable Unavailable MELODY HERNANDEZ Unavailable [address] + [place] [address] FIONA MENDEZOMI Unavailable [address] + [address] [place] [address] D Unavailable Unavailable Unavailable MELODY HERNANDEZ Unavailable [address] + [place] [address] ANDREA TAMI Unavailable [address] + [address] [place] [address] D Unavailable Unavailable Unavailable MELODY HERNANDEZ Unavailable [address] + [place] [address] FIONA MENDEZOMI Unavailable [address] + [address] [place] [address] MELODY HERNANDEZ Unavailable Unavailable + NOT GIVEN Unavailable Unavailable Unavailable MELODY HERNANDEZ Unavailable Unavailable + NOT GIVEN Unavailable Unavailable Unavailable D Unavailable Unavailable Unavailable MELODY HERNANDEZ Unavailable [address] + [place] [address] FIONA MENDEZOMI Unavailable [address] + [address] [place] [address] D Unavailable Unavailable Unavailable MELODY HERNANDEZ Unavailable [address] + [place] [address] FIONA MENDEZOMI Unavailable [address] + [address] [place] [address] D Unavailable Unavailable Unavailable MELODY HERNANDEZ Unavailable [address] + [place] [address] ANDREA TAMI Unavailable [address] + [address] [place] [address] D Unavailable Unavailable Unavailable MELODY HERNANDEZ Unavailable [address] + [place] [address] ANDREA TAMI Unavailable [address] + [address] [place] [address] D Unavailable Unavailable Unavailable MELODY HERNANDEZ Unavailable [address] + [place] [address] ANDREA TAMI Unavailable [address] + [address] [place] [address] D Unavailable Unavailable Unavailable MELODY HERNANDEZ Unavailable [address] + [place] [address] TAMI MENDEZ Unavailable [address] + [address] [place] [address] D Unavailable Unavailable Unavailable MELODY HERNANDEZ Unavailable [address] + [place] [address] TAMI MENDEZ Unavailable [address] + [address] [place] [address] D Unavailable Unavailable Unavailable MELODY HERNANDEZ Unavailable [address] + [place] [address] TAMI MENDEZ Unavailable [address] + [address] [place] [address] D Unavailable Unavailable Unavailable MELODY HERNANDEZ Unavailable [address] + [place] [address] TAMI MENDEZ Unavailable [address] + [address] [place] [address] D Unavailable Unavailable Unavailable MELODY HERNANDEZ Unavailable [address] + [place] [address] TAMI MENDEZ Unavailable [address] + [address] [place] [address] D Unavailable Unavailable Unavailable MELODY HERNANDEZ Unavailable [address] + [place] [address] TAMI MENDEZ Unavailable [address] + [address] [place] [address] D Unavailable Unavailable Unavailable MELODY HERNANDEZ Unavailable [address] + [place] [address] TAMI MENDEZ Unavailable [address] + [address] [place] [address] D Unavailable Unavailable Unavailable MELODY HERNANDEZ Unavailable [address] + [place] [address] TAMI MENDEZ Unavailable [address] + [address] [place] [address] D Unavailable Unavailable Unavailable MELODY HERNANDEZ Unavailable [address] + [place] [address] TAMI MENDEZ Unavailable [address] + [address] [place] [address] Care Team Providers Name Role Phone TRE HARRIS MD Admitting Unavailable TRE HARRIS MD Attending Unavailable TRE HARRIS MD Primary Care Unavailable DEVIKA PURCELL MD Consulting Unavailable PROVIDER, UNKNOWN Consulting Unavailable PROVIDER, UNKNOWN Consulting Unavailable PROVIDER, UNKNOWN Consulting Unavailable TIMOTHY DELGADO DO Admitting Unavailable TIMOTHY DELGADO DO Attending Unavailable TIMOTHY DELGADO DO Primary Care Unavailable [facility] Primary Care Unavailable Gbaruk, Kombian Admitting Unavailable Slaby, Alejo Consulting Unavailable Marizol [place] Attending Unavailable Boy Haines Consulting Unavailable [place]bar[place], Kombian Admitting Unavailable [place]bar[place], Kombian Attending Unavailable [facility] Unavailable [place], [place] Consulting Unavailable [place], Kombian Admitting Unavailable Ashelfah, Ghasem Attending Unavailable [facility] Primary Care Unavailable Slaby, Alejo Consulting Unavailable Ashelfah, Ghasem Consulting Unavailable [place], [place] Admitting Unavailable Ashelfah, Ghasem Attending Unavailable [facility] Primary Care Unavailable Slaby, Alejo Consulting Unavailable Ashelfah, Ghasem Consulting Unavailable [place], [place] Admitting Unavailable Ashelfah, Ghasem Attending Unavailable [facility] Primary Care Unavailable Slaby, Alejo Consulting Unavailable Ashelfah, Ghasem Consulting Unavailable [place]bar[place], Kombian Admitting Unavailable Ashelfah, Ghasem Attending Unavailable [facility] Primary Care Unavailable Slaby, Alejo Consulting Unavailable Ashelfah, Ghasem Consulting Unavailable [place], Kombian Admitting Unavailable Ashelfah, Ghasem Attending Unavailable [facility] Primary Care Unavailable Slaby, Alejo Consulting Unavailable Ashelfah, Ghasem Consulting Unavailable [place], [place]omb[place] Admitting Unavailable Ashelfah, Ghasem Attending Unavailable [facility] Primary Care Unavailable Slaby, Alejo Consulting Unavailable Ashelfah, Ghasem Consulting Unavailable [place], [place] Admitting Unavailable Slaby, Alejo Attending Unavailable [facility] Primary Care Unavailable Slaby, Alejo Consulting Unavailable Ashelfah, Ghasem Consulting Unavailable [place], [place] Admitting Unavailable Michelle, Alejo Attending Unavailable [facility] Care Unavailable Slaby, Alejo Consulting Unavailable Ashelfah, Ghasem Consulting Unavailable [place], Kombian Admitting Unavailable [place], [place] Attending Unavailable [facility] Care Unavailable Slaby, Alejo Consulting Unavailable [place], [place] Consulting Unavailable [place]bar[place], Kombian Admitting Unavailable [place], [place] Attending Unavailable [facility] Care Unavailable Slaby, Alejo Consulting Unavailable Boy Haines Consulting Unavailable [place], [place] Consulting Unavailable Jopperi, Silviano Admitting Unavailable Jopperi, Silviano Referring Unavailable [facility] Unavailable Nick, Yu Consulting Unavailable Sementi, Tresa Attending Unavailable Andre, Charlie Consulting Unavailable Slaby, Alejo Consulting Unavailable Jopperi, Silviano Admitting Unavailable Mitali Garibay Attending Unavailable Jopperi, Silviano Referring Unavailable [facility] Unavailable Nick, Yu Consulting Unavailable Andre, Charlie Consulting Unavailable Jopperi, Silviano Consulting Unavailable Jopperi, Silviano Admitting Unavailable Dami Kim Attending Unavailable Jopperi, Silviano Referring Unavailable [facility] Unavailable Nick, Yu Consulting Unavailable Andre, Charlie Consulting Unavailable Jopperi, Silviano Consulting Unavailable Jopperi, Silviano Admitting Unavailable [place], [place] Attending Unavailable Jopperi, Silviano Referring Unavailable [facility] Unavailable Nick, Yu Consulting Unavailable Andre, Charlie Consulting Unavailable [place], [place] Consulting Unavailable Jopperi, Silviano Admitting Unavailable [place], [place] Attending Unavailable Jopperi, Silviano Referring Unavailable [facility] Care Unavailable Nick, Yu Consulting Unavailable Andre, Charlie Consulting Unavailable [place], [place] Consulting Unavailable Jopperi, Silviano Admitting Unavailable Sementi, Tresa Attending Unavailable Jopperi, Silviano Referring Unavailable [facility] Care Unavailable Nick, Yu Consulting Unavailable Andre, Charlie Consulting Unavailable Slaby, Alejo Consulting Unavailable Sementi, Tresa Consulting Unavailable Jopperi, Silviano Admitting Unavailable Cy Rader D.O. Attending Unavailable Jopperi, Silviano Referring Unavailable [facility] Care Unavailable Nick, Yu Consulting Unavailable Andre, Charlie Consulting Unavailable Slaby, Alejo Consulting Unavailable Sementi, Tresa Consulting Unavailable Jopperi, Silviano Admitting Unavailable Ceci Ruiz BID WRITER-C Attending Unavailable Jopperi, Silviano Referring Unavailable [facility] Care Unavailable Nick, Yu Consulting Unavailable Andre, Charlie Consulting Unavailable Slaby, Alejo Consulting Unavailable Sementi, Tresa Consulting Unavailable Jopperi, Islviano Admitting Unavailable Cy Rader D.O. Attending Unavailable Jopperi, Silviano Referring Unavailable [facility] Care Unavailable Nick, Yu Consulting Unavailable Andre, Charlie Consulting Unavailable Slaby, Alejo Consulting Unavailable Sementi, Tresa Consulting Unavailable Jopperi, Silviano Admitting Unavailable Sementi, Tresa Attending Unavailable Jopperi, Silviano Referring Unavailable [facility] Care Unavailable Nick, Yu Consulting Unavailable Andre, Charlie Consulting Unavailable Slaby, Alejo Consulting Unavailable Sementi, Tresa Consulting Unavailable Jopperi, Silviano Admitting Unavailable Ceci Ruiz BID WRITER-C Attending Unavailable Jopperi, Silviano Referring Unavailable [facility] Care Unavailable Nick, Yu Consulting Unavailable Andre, Charlie Consulting Unavailable Slaby, Alejo Consulting Unavailable Sementi, Tresa Consulting Unavailable Jopperi, Silviano Admitting Unavailable Cy Rader D.O. Attending Unavailable Jopperi, Silviano Referring Unavailable [facility] Care Unavailable Nick, Yu Consulting Unavailable Andre, Charlie Consulting Unavailable Slaby, Alejo Consulting Unavailable Sementi, Tresa Consulting Unavailable Jopperi, Silviano Admitting Unavailable Sementi, Tresa Attending Unavailable Jopperi, Silviano Referring Unavailable [facility] Care Unavailable Nick, Yu Consulting Unavailable Andre, Charlie Consulting Unavailable Slaby, Alejo Consulting Unavailable Sementi, Tresa Consulting Unavailable Jopperi, Silviano Admitting Unavailable Sementi, Tresa Attending Unavailable Jopperi, Silviano Referring Unavailable [facility] Care Unavailable Nick, Yu Consulting Unavailable Andre, Charlie Consulting Unavailable Slaby, Alejo Consulting Unavailable Sementi, Tresa Consulting Unavailable Andre, Charlie Attending Unavailable Jopperi, Silviano Referring Unavailable Gbaruk, Kombian Admitting Unavailable Michelle, Alejo Attending Unavailable [facility] Care Unavailable Slaby, Alejo Consulting Unavailable Boy Haines Consulting Unavailable Paint[place], [place] Consulting Unavailable Oral Suazo Attending Unavailable Thomas Carrasco Referring Unavailable Mitali Garibay Attending Unavailable Jopperi, Silviano Referring Unavailable Oral Suazo Attending Unavailable Sil[place] Vasquez Referring Unavailable Slaby, Alejo Attending Unavailable Costello, Axel Primary Care Unavailable Slaby, Alejo Attending Unavailable Costello, Axel Primary Care Unavailable Slaby, Alejo Attending Unavailable Costello, Axel Primary Care Unavailable Slaby, Alejo Attending Unavailable Costello, Axel Primary Care Unavailable Slaby, Alejo Consulting Unavailable Vaibhav, Mariluz Walker Attending Unavailable Costello, Axel Primary Care Unavailable [...] Primary Care Unavailable Slaby, Alejo Consulting Unavailable Rodolfo, Rajesh Attending Unavailable Costello, Axel Primary Care Unavailable Agyepong, Billy Admitting Unavailable Tereletsrosa elena, Rod Attending Unavailable Aulander, Rajesh Primary Care Unavailable Slaby, Alejo Attending Unavailable Slaby, Alejo Referring Unavailable Costello, Axel Primary Care Unavailable Agyepong, Billy Admitting Unavailable Agyepong, Billy Attending Unavailable Costello, Axel Primary Care Unavailable Agyepong, Billy Consulting Unavailable Agyepong, Billy Admitting Unavailable Costello, Ax[place] Primary Care Unavailable Ricardo Ambriz Consulting Unavailable Ricardo Ambriz Attending Unavailable Agyeponmechelle, Billy Admitting Unavailable Costello, Axel Primary Care Unavailable Ricardo Ambriz Consulting Unavailable Ricardo Ambriz Attending Unavailable AgyeponBilly min Admitting Unavailable Aulander, Rajesh Primary Care Unavailable TereletsRod [place] Consulting Unavailable Rod Hollingsworth Attending Unavailable AgyepongBilly Admitting Unavailable [facility] Primary Care Unavailable Rod Hollingsworth Consulting Unavailable LuiseletsRod [place] Attending Unavailable VirajAmadeo Attending Unavailable PROBLEMS PROBLEMS DATE TYPE CONDITION / CODE ATTENDING STATUS SOURCE Unknown L97.922 - Non-pressure Vaibhav, Active [place] 8 chronic ulcer of [facility] unspecified part of Hospital left lower leg with Repository fat layer exposed / L97.922(ICD-10) Unknown L97.912 - Non-pressure Vaibhav, Active [place] 8 chronic ulcer of [place] E Community unspecified part of Hospital right lower leg with Repository fat layer exposed / L97.912(ICD-10) Unknown I89.0 - Lymphedema, Vaibhav, Active [place] 8 not elsewhere [place] [facility] Community classified / Hospital I89.0(ICD-10) Repository Admitting Unknown / UNK(Unknown) Viraj, Amadeo Active [facility] [place] Repository Unknown R00.1 - Bradycardia, AndreCharlie oleary Active [place] [facility] unspecified / Community R00.1(ICD-10) Hospital Repository Unknown I10 - Essential AndreCharlie oleary Active [place] [facility] (primary) hypertension Community / I10(ICD-10) Hospital Repository Unknown I27.20 - Pulmonary AndreCharlie oleary Active [place] [facility] hypertension, Community unspecified / Hospital I27.20(ICD-10) Repository Unknown E11.649 - Type 2 AndreCharlie oleary Active [place] 8 diabetes mellitus with Community hypoglycemia without Hospital coma / E11.649(ICD-10) Repository Unknown E66.01 - Morbid Charlie Powell Active [place] [facility] (severe) obesity due Community to excess calories / Hospital E66.01(ICD-10) Repository Unknown N17.9 - Acute kidney Garibay, Active [place] [facility] failure, unspecified / Mitali Community N17.9(ICD-10) Hospital Repository Unknown I50.33 - Acute on Lakeisha, [place] Active [place] 8 chronic diastolic Community (congestive) heart Hospital failure / Repository I50.33(ICD-10) Unknown I48.2 - Chronic atrial Lakeisha, [place] Active [place] [facility] fibrillation / Community I48.2(ICD-10) Hospital Repository Unknown R94.31 - Abnormal Lakeisha, Oral Active [place] 8 electrocardiogram Community [ECG] [EKG] / Hospital R94.31(ICD-10) Repository Admitting Type 2 diabetes Taryn HARRIS 8 Diagnosis mellitus without [facility]RE [facility] E119(ICD-10) Repository Principle Type 2 diabetes KIMBERLY, Active [facility] Diagnosis mellitus without TRE LAZARO [facility] complications / Hospital E119(ICD-10) Repository Secondary Cellulitis, KIMBERLY, Active [facility] 8 Diagnosis unspecified / TRE LAZARO [facility] L0390(ICD-10) Hospital Repository Unknown E11.622 - Type 2 Paintsil, [place] Active [place] 8 diabetes mellitus with Community other skin ulcer / Hospital E11.622(ICD-10) Repository Unknown L97.909 - Non-pressure SlabyAlejo Active [place] 8 chronic ulcer of Community unspecified part of Hospital unspecified lower leg Repository with unspecified severity / L97.909(ICD-10) Unknown L03.115 - Cellulitis SlabAlejo pickard Active [place] 8 of right lower limb / Community L03.115(ICD-10) Hospital Repository PROCEDURES PROCEDURES No Procedure Records FoundRESULTS RESULTS PROGRESS Observed: 08/03/2018 Status: COMPLETED Source: [place] 8:49 AM [facility] REPOSITORY HNO ID: [id number] Author: Lizzie Springer Service: (none) Author Type: Medical Office Technology Instructor Type: Progress Notes Filed: 08/03/2018 8:49 AM Note Text: I called and spoke with Kelsi and she states there's no discharge plans in place at this time. VENOUS DUPLEX LOWER Observed: 07/29/2018 Status: F Source: [place] 7:05 AM [facility] REPOSITORY [facility] Cardiovascular Services [address] [place] [address] Venous Duplex - Sebastian Extrem 07/25/18 0831 MR#: [id number] Acct: [id number] Name: VICKI EHRNANDEZ Rep #: [id number] : 1960 57 From: Henry Caballero MD Attending Dr: Rod Hollingsworth DO Status: DIS IN Ordering Dr: Billy Bowling MD Date: 07/23/18 Location: [facility] Sex: F C Admitted: 07/22/18 Reason For [...] preliminary report was called and/or faxed to [facility]. <> Interpretation Summary Deep veins of the [...] Date Dictated: 07/25/18 0831 Date Transcribed: 07/29/18703 Shipping Assistant: Signed DISCHARGE SUMMARY Observed: 07/28/2018 Status: F Source: [place] 9:15 AM [facility] REPOSITORY [facility] Medical Records Department [address] [place] [address] Discharge Summary 07/26/18 1453 MR#: [id number] Acct: [id number] Name: VICKI HERNANDEZ Rep #: [id number] : 1960 57 From: Randall LEES PCP: Rajesh Holman Status: DIS IN Y Location: [address] ADDENDUM by Rod Hollingsworth DO on 07/28/18 at 0915 Code Visit Patient was seen and examined on 07/26/18 independently of Randall Orozco, we received approval today for transfer to an extended care facility for ongoing rehabilitation services. Patient's heart rate remains under fair control, I have decided to change the patient to an extended release Cardizem preparation for use at the [facility]. Physical exam: On examination she appeared in [...] and endorse it. Inpatient E AND M: [id number] Disch Hosp 07/28/18 0915 <Electronically signed by [...] assess diastolic dysfunction. Consultations 07/23/18 00:20 Consult: Onc/Wound/terminal carman Routine Comment: BILATERAL LEG WOUND Operations: None [...] wraps were provided, O2 was provided by [facility], which she does not use at home. [...] year but never followed up with a white spooler. She was given IV cardizem and started [...] skilled and was approved to go to [facility]. She was transitioned to PO lasix. She will need continued lymphedema wound care at the SNF. She informed me that she will be referred to the lymphedema clinic by her wound clinic when her chronic LE wounds have resolved. She will need her BMP and weights followed. She will need referral to a white spooler - I have recommended Dr. Suazo in [...] Oral Suazo MD When: 3-4 weeks Disposition: Senior Care facility Minutes spent on discharge:: 35 Patient [...] Signed PROGRESS Observed: 07/27/2018 Status: COMPLETED Source: [place] 10:55 AM [facility] REPOSITORY HNO ID: [id number] Author: Rajesh Holman Service: (none) Author Type: Physician Type: Progress Notes Filed: 07/27/2018 3:06 PM Note Text: Agree with below. Thank you! PROGRESS Observed: 07/27/2018 Status: COMPLETED Source: [place] 10:38 AM [facility] REPOSITORY HNO ID: [id number] Author: Melvina (Rn) Sung Service: (none) Author Type: Registered Nurse Type: Progress Notes Filed: 07/27/2018 10:53 AM Note Text: TRANSITION CARE MANAGEMENT (TCM) DISCHARGE TO POST ACUTE FACILITY TC to MEÑO Dolan and Vidya Win NP for Dr. Gallardo at [facility], discussed concerns regarding patient's need for extended rehab to enable pt to go home safely and be able to ambulate to [place] to get to PCP appointments. Patient has refused to come into office to be seen since last hospital admission and has not been seen by PCP in past 14 months. SW and [facility] have called [facility] and [facility] trying to get provider to go to patient's home but they didn't have anyone in [facility]. We also called multiple transportation companies in [facility] without any success for transport to office. BID WRITER will follow patient and discuss in team meetings regarding patient's needs. Occupational Therapy Department Chair took PCC name and number for care coordination and discharge planning. Melvina Almaraz RN July 27, 2018 10:53 AM POST ACUTE TRANSFER SUMMARY: -Pt discharged from [facility] on 07/26 -Post Acute Facility Admitted to [facility] -Admitted for: Copied from [facility] Records: Acute hypoxemic respiratory failure (Acute) 2/2 [...] wraps were provided, O2 was provided by [place], which she does not use at home. [...] year but never followed up with a white spooler. She was given IV cardizem and started [...] skilled and was approved to go to [facility]. She was transitioned to PO lasix. She will need continued lymphedema wound care at the SNF. She informed me that she will be referred to the lymphedema clinic by her wound clinic when her chronic LE wounds have resolved. She will need her BMP and weights followed. She will need referral to a white spooler - I have recommended Dr. Suazo in [...] AM NATHANAEL Observed: 07/27/2018 Status: COMPLETED Source: [place] 12:00 AM [facility] REPOSITORY Patient Outreach (FAMPWS) VICKI HERNANDEZ ([id number]) 1960 F Date Time Provider Department 07/27/18 MELVINA ALMARAZ (RN) MART[facility] During your visit today, we recorded the following information about you: Melvina Almaraz RN 07/27/2018 10:53 AM Addendum TRANSITION CARE MANAGEMENT (TCM) DISCHARGE TO POST ACUTE FACILITY TC to MEÑO Dolan and Vidya Win, BID WRITER for Dr. Gallardo at [facility], discussed concerns regarding patient's need for extended rehab to enable pt to go home safely and be able to ambulate to [place] to get to PCP appointments. Patient has refused to come into office to be seen since last hospital admission and has not been seen by PCP in past 14 months. SW and [facility] have called [facility] and [facility] trying to get provider to go to patient's home but they didn't have anyone in [facility]. We also called multiple transportation companies in [facility] without any success for transport to office. BID WRITER will follow patient and discuss in team meetings regarding patient's needs. Occupational Therapy Department Chair took PCC name and number for care coordination and discharge planning. Melvina Almaraz RN July 27, 2018 10:53 AM POST ACUTE TRANSFER SUMMARY: -Pt discharged from [facility] on 07/26 -Post Acute Facility Admitted to [facility] -Admitted for: Copied from [facility] Records: Acute hypoxemic respiratory failure (Acute) 2/2 [...] wraps were provided, O2 was provided by [place], which she does not use at home. [...] year but never followed up with a white spooler. She was given IV cardizem and started [...] skilled and was approved to go to [facility]. She was transitioned to PO lasix. She will need continued lymphedema wound care at the SNF. She informed me that she will be referred to the lymphedema clinic by her wound clinic when her chronic LE wounds have resolved. She will need her BMP and weights followed. She will need referral to a white spooler - I have recommended Dr. Suazo in [...] Date Reviewed: 06/08/2017 Reviewed by: Karena Shaikh Children'S Entertainer - Fully Assessed Reason for Visit: Transition [...] LEAD ELECTROCARDIOGRAM Observed: 07/26/2018 Status: F Source: [place] 2:07 PM [facility] REPOSITORY [facility] Cardiovascular Services [address] [place] [address] 12 Lead EKG 07/22/18 2156 MR#: [id number] Acct: [id number] Name: VICKI HERNANDEZ Rep #: [id number] : 1960 57 From: Oral Suazo MD Attending Dr: Rod Hollingsworth DO Status: ADM IN Ordering Dr: Maisha Dumont DO Date: 07/22/18 Location: [facility] Sex: F C Admitted: 07/22/18 Test Reason [...] ECG Confirmed by ORAL SUAZO MD ([id number]), acquisition editor KERRY HERNANDEZ ([id number]) on 07/26/2018 2:06:38 PM Referred By: DONNA Confirmed By:ORAL SUAZO MD 07/26/18 1406 Date Oral Suazo MD CC: Rajesh Holman; Rod Hollingsworth DO; Maisha Dumont DO; Rajesh Holman MD Signed PROGRESS Observed: 07/26/2018 Status: COMPLETED Source: [place] 2:06 PM [facility] [place] REPOSITORY [facility] ID: [id number] Author: Melvina (Rn) Sung Service: (none) Author Type: Registered Nurse Type: Progress Notes Filed: 07/26/2018 5:08 PM Note Text: PRIMARY CARE COORDINATION FOLLOW-UP NOTE Provider Action/FYI FYI Patient identified by name and date of . YES Spoke to PCU nurse and MEÑO Abdul Summary: TC from MEÑO Abdul at [facility], discussed all information below. Informed PCP [...] left message stating she is admitted to [facility] and she doesn't want PCC to contact her son. She doesn't want him to know she is in hospital until she is discharged. States she thinks she may be going to a mcfp for 1-2 weeks after hospital discharge. TC [...] [facility] and they don't go to [facility]. PCC called [facility] re providers who travel to home of pt and no one in [facility] does those services. Called transportation companies in [facility] and [facility] and the [facility] and have not been able to find affordable transportation. PCP has strong concern about continuing to treat patient without an exam. Discussed high dose of cardizem. Faxed records from [facility], [facility] and cardiology consult regarding cardizem dosage. TC from [facility] left message stating patient was having difficulty breathing and she was taken by squad then admitted to [facility]. Social Service Worker plan for next outreach: Will follow up at discharge Signature Melvina Almaraz RN July 26, 2018 TRANSFER TO [facility] Observed: 07/26/2018 Status: F Source: [facility] 12:43 PM [facility] REPOSITORY [facility] Medical Records Department [address] [place] [address] Transfer to [facility] MR#: [id number] Acct: [id number] Name: VICKI HERNANDEZ Rep #: [id number] : 1960 57 From: Randall LEES PCP: Rajesh Holman Status: ADM IN VICKI HERNANDEZ (Patient) (Health Ins. Claim No.) (Day of Discharge to Facility) Certification of patient admission REQUIRED AT TIME OF ADMISSION. I CERTIFY THAT POST-HOSPITAL ECF SERVICES ARE REQUIRED TO BE GIVEN ON AN IN-PATIENT BASIS BECAUSE OF THE ABOVE NAMED PATIENT'S NEED FOR SNF CARE ON A CONTINUING BASIS FOR THE [...] 07/26/2018 Status: F Source: [place] 11:52 AM [facility] REPOSITORY TYPE CODE TESTS RESULT OUT OF REFERENCE UNITS RANGE LAB L501.080 70-110 mg/dL High BEDSIDE GLU 170 Result Comment: MANAGEMENT OF PATIENT CARE PER NURSING PROTOCOL Performed By: #### L501.080 #### [facility] Point of Care [address] [place] [address] BEDSIDE GLUCOSE Collected: 07/26/2018 Status: F Source: [place] 6:52 AM [facility] REPOSITORY TYPE CODE TESTS RESULT OUT OF REFERENCE UNITS RANGE LAB L501.080 70-110 mg/dL High BEDSIDE GLU 188 Result Comment: MANAGEMENT OF PATIENT CARE PER NURSING PROTOCOL Performed By: #### L501.080 #### [facility] Point of Care [address] [place] [address] BASIC METABOLIC Collected: 07/26/2018 Status: F Source: [place] PROFILE (BMP) 5:40 AM [facility] REPOSITORY TYPE CODE TESTS RESULT OUT OF [...] GAP 9 Performed By: #### L500.2500 #### [facility] [address] [facility] [place], [address] CHEST 1 VIEW Observed: 07/26/2018 Status: F Source: [place] (PORTABLE) 12:01 AM [facility] REPOSITORY [facility] Imaging Services [address] [place] [address] Chest 1 View (Portable) MR#: [id number] Acct: [id number] Name: VICKI HERNANDEZ Rep #: [id number] : 1960 F 57 From: Elza Ellis MD PCP: Rajesh Holman Status: ADM IN Study: Chest 1 View (Portable) Date of Exam: 07/26/18 Exam# [id number] Ordering Dr: Rod Hollingsworth DO STUDY: X-RAY [...] , CC: Rajesh Holman; Rod Hollingsworth DO Shipping Assistant: Signed BEDSIDE GLUCOSE Collected: 07/25/2018 Status: F Source: [place] 11:37 PM [facility] REPOSITORY TYPE CODE TESTS RESULT OUT OF REFERENCE UNITS RANGE LAB L501.080 70-110 mg/dL High BEDSIDE GLU 228 Result Comment: MANAGEMENT OF PATIENT CARE PER NURSING PROTOCOL Performed By: #### L501.080 #### [facility] Point of Care [address] [place], [place] [address] BEDSIDE GLUCOSE Collected: 07/25/2018 Status: F Source: [place] 4:40 PM [facility] REPOSITORY TYPE CODE TESTS RESULT OUT OF REFERENCE UNITS RANGE LAB L501.080 70-110 mg/dL High BEDSIDE GLU 269 Result Comment: MANAGEMENT OF PATIENT CARE PER NURSING PROTOCOL Performed By: #### L501.080 #### [facility] Point of Care [address] [place] [address] BEDSIDE GLUCOSE Collected: 07/25/2018 Status: F Source: [place] 11:42 AM [facility] REPOSITORY TYPE CODE TESTS RESULT OUT OF REFERENCE UNITS RANGE LAB L501.080 70-110 mg/dL High BEDSIDE GLU 265 Result Comment: MANAGEMENT OF PATIENT CARE PER NURSING PROTOCOL Performed By: #### L501.080 #### [facility] Point of Care [address] [place] [address] BEDSIDE GLUCOSE Collected: 07/25/2018 Status: F Source: [place] 6:57 AM [facility] REPOSITORY TYPE CODE TESTS RESULT OUT OF REFERENCE UNITS RANGE LAB L501.080 70-110 mg/dL High BEDSIDE GLU 212 Result Comment: MANAGEMENT OF PATIENT CARE PER NURSING PROTOCOL Performed By: #### L501.080 #### [facility] Point of Care [address] [place] [address] BASIC METABOLIC Collected: 07/25/2018 Status: F Source: [place] PROFILE (BMP) 5:20 AM [facility] REPOSITORY TYPE CODE TESTS RESULT OUT OF [...] GAP 10 Performed By: #### L500.2500 #### [facility] [address] [place], [address] CNPTOUTREACH Observed: 07/25/2018 Status: COMPLETED Source: [place] 12:00 AM [facility] REPOSITORY Patient Outreach (FAMPWS) VICKI HERNANDEZ ([id number]) 1960 F Date Time Provider Department 07/25/18 [facility] (RN) [facility] your visit today, we recorded the following information about you: Melvina Almaraz RN 07/26/2018 5:08 PM Signed PRIMARY CARE COORDINATION FOLLOW-UP NOTE Provider Action/FYI FYI Patient identified by name and date of . YES Spoke to PCU nurse and MEÑO Abdul Summary: TC from MEÑO Abdul at [facility], discussed all information below. Informed PCP [...] left message stating she is admitted to [facility] and she doesn't want PCC to contact her son. She doesn't want him to know she is in hospital until she is discharged. States she thinks she may be going to a mcfp for 1-2 weeks after hospital discharge. TC [...] [facility] and they don't go to [facility]. PCC called [facility] providers who travel to home of pt and no one in [facility] does those services. Called transportation companies in [facility] and [facility] and the [facility] and have not been able to find affordable transportation. PCP has strong concern about continuing to treat patient without an exam. Discussed high dose of cardizem. Faxed records from [facility], [facility] and cardiology consult regarding cardizem dosage. TC from [place], left message stating patient was having difficulty breathing and she was taken by squad then admitted to [facility]. Social Service Worker plan for next outreach: Will follow up [...] Date Reviewed: 06/08/2017 Reviewed by: Karena Shaikh Children'S Entertainer - Fully Assessed Reason for Visit: [facility] Follow Up [3610] Prescriptions as of [...] More... Obesity, morbid, BMI 50 or higher ([facility]) [E66.01]INVALID FOR* More... Hypertension [I10] INVALID FOR* More... HUNTER (obstructive sleep apnea) [G47.33] INVALID FOR* More... Pulmonary HTN (HCC) [I27.20] INVALID FOR* More... Atrial fibrillation with RVR ([facility]) [I48.91] INVALID FOR*09/23/2016 More... Heart failure, diastolic, acute (HCC) [I50.31] INVALID FOR* More... Counseling and coordination of care [Z71.89] INVALID FOR*04/12/2015 More... Monoclonal gammopathy [D47.2] INVALID FOR* Empty sella turcica (HCC) [E23.6] INVALID FOR* More... Uncontrolled type 2 diabetes mellitus without c*INVALID FOR*09/23/2016 Encounter Status:Closed by MELVINA ALMARAZ on 07/26/18 BEDSIDE GLUCOSE Collected: 07/24/2018 Status: F Source: [place] 9:40 PM [facility] REPOSITORY TYPE CODE TESTS RESULT OUT OF REFERENCE UNITS RANGE LAB L501.080 70-110 mg/dL High BEDSIDE GLU 247 Result Comment: MANAGEMENT OF PATIENT CARE PER NURSING PROTOCOL Performed By: #### L501.080 #### [facility] Point of Care [address] [place] [address] BEDSIDE GLUCOSE Collected: 07/24/2018 Status: F Source: [place] 4:15 PM [facility] REPOSITORY TYPE CODE TESTS RESULT OUT OF REFERENCE UNITS RANGE LAB L501.080 70-110 mg/dL High BEDSIDE GLU 236 Result Comment: MANAGEMENT OF PATIENT CARE PER NURSING PROTOCOL Performed By: #### L501.080 #### [facility] Point of Care [address] [place] [address] BEDSIDE GLUCOSE Collected: 07/24/2018 Status: F Source: [place] 11:09 AM [facility] REPOSITORY TYPE CODE TESTS RESULT OUT OF REFERENCE UNITS RANGE LAB L501.080 70-110 mg/dL High BEDSIDE GLU 221 Result Comment: MANAGEMENT OF PATIENT CARE PER NURSING PROTOCOL Performed By: #### L501.080 #### [facility] Point of Care [address] [place] [address] BEDSIDE GLUCOSE Collected: 07/24/2018 Status: F Source: [place] 6:47 AM [facility] REPOSITORY TYPE CODE TESTS RESULT OUT OF REFERENCE UNITS RANGE LAB L501.080 70-110 mg/dL High BEDSIDE GLU 248 Result Comment: MANAGEMENT OF PATIENT CARE PER NURSING PROTOCOL Performed By: #### L501.080 #### [facility] Point of Care [address] [place] [address] BEDSIDE GLUCOSE Collected: 07/23/2018 Status: F Source: [place] 9:44 PM [facility] REPOSITORY TYPE CODE TESTS RESULT OUT OF REFERENCE UNITS RANGE LAB L501.080 70-110 mg/dL High BEDSIDE GLU 264 Result Comment: MANAGEMENT OF PATIENT CARE PER NURSING PROTOCOL Performed By: #### L501.080 #### [facility] Point of Care [address] [place] [address] BEDSIDE GLUCOSE Collected: 07/23/2018 Status: F Source: [place] 5:13 PM [facility] REPOSITORY TYPE CODE TESTS RESULT OUT OF REFERENCE UNITS RANGE LAB L501.080 70-110 mg/dL High BEDSIDE GLU 257 Result Comment: MANAGEMENT OF PATIENT CARE PER NURSING PROTOCOL Performed By: #### L501.080 #### [facility] Point of Care [address] [place] [address] EMERGENCY DEPARTMENT Observed: 07/23/2018 Status: F Source: [place] SUMMARY 4:45 PM [facility] REPOSITORY [facility] Medical Records Department [address] [place] [address] Emergency Department Summary 07/22/18 2225 MR#: [id number] Acct: [id number] Name: VICKI HERNANDEZ Rep #: [id number] : 1960 57 From: Maisha Dumont DO [...] fib RVR-uncontrolled] This note was generated with [employer] dictation software. It may contain incorrect words, [...] your Primary Care Provider. Call [facility] ([phone]) or report to the closest Emergency Room. Call 911 if necessary. 07/23/18 1645 <Electronically signed by Maisha Dumont DO> Date Maisha Dumont DO Cosigner Signature (If Indicated): Date CC: Rajesh Holman; Axel Costello MD BEDSIDE GLUCOSE Collected: 07/23/2018 Status: F Source: [place] 12:07 PM [facility] REPOSITORY TYPE CODE TESTS RESULT OUT OF REFERENCE UNITS RANGE LAB L501.080 70-110 mg/dL High BEDSIDE GLU 228 Result Comment: MANAGEMENT OF PATIENT CARE PER NURSING PROTOCOL Performed By: #### L501.080 #### [facility] Point of Care [address] [place] [address] ECHOCARDIOGRAM COMPLETE Observed: 07/23/2018 Status: F Source: [place] 11:27 AM [facility] REPOSITORY [facility] Cardiovascular Services [address] [place] [address] Echo Complete 07/23/18 0822 MR#: [id number] Acct: [id number] Name: VICKI HERNANDEZ Rep #: [id number] : 1960 57 From: Axel Birch MD Attending Dr: Ricardo Ambriz MD Status: ADM IN Ordering Dr: Billy Bowling MD Date: 07/23/18 Location: [facility] Sex: F C Admitted: 07/22/18 Reason For [...] MD Date Dictated: 07/23/18821 Date Transcribed: 07/23/181125 Shipping Assistant: Signed HISTORY AND PHYSICAL Observed: 07/23/2018 Status: F Source: [place] EXAM 8:27 AM [facility] REPOSITORY [facility] Medical Records Department [address] [place] [address] History and Physical 07/22/18 2301 MR#: [id number] Acct: [id number] Name: VICKI HERNANDEZ Rep #: [id number] : 1960 57 From: Billy Bowling MD PCP: Rajesh Holman Status: ADM IN Location: [place] [id number] ADDENDUM by Billy Bowling MD on 07/23/18 [...] reported that she does not have a white spooler at this time. Consider discussing case with white spooler or upon discharge helping patient to get [...] fib. Code Visit Inpatient E AND M: [id number] Init Hosp L3 07/23/18 0343 <Electronically signed by Billy Bowling MD> Date Billy Bowling MD Cosigner Signature: Date (if applicable) CC: Rajesh Holman; Billy Bowling MD; Axel Costello MD Signed BEDSIDE GLUCOSE Collected: 07/23/2018 Status: F Source: [place] 6:51 AM [facility] REPOSITORY TYPE CODE TESTS RESULT OUT OF REFERENCE UNITS RANGE LAB L501.080 70-110 mg/dL High BEDSIDE GLU 205 Result Comment: MANAGEMENT OF PATIENT CARE PER NURSING PROTOCOL Performed By: #### L501.080 #### [facility] Point of Care [address] [place] [place] [address] CBC W/DIFF, AUTOMATED Collected: 07/23/2018 Status: F Source: [place] 5:51 AM [facility] REPOSITORY TYPE CODE TESTS RESULT OUT OF [...] LYMPHOPENIA NOTED Performed By: #### L100.0100 #### [facility] [address], [address] BASIC METABOLIC Collected: 07/23/2018 Status: F Source: [place] PROFILE (BMP) 5:51 AM [facility] REPOSITORY TYPE CODE TESTS RESULT OUT OF [...] GAP 8 Performed By: #### L500.2500 #### [facility] [address] [facility] [place], [place], [address] BEDSIDE GLUCOSE Collected: 07/23/2018 Status: F Source: [place] 1:03 AM [facility] REPOSITORY TYPE CODE TESTS RESULT OUT OF REFERENCE UNITS RANGE LAB L501.080 70-110 mg/dL High BEDSIDE GLU 168 Result Comment: MANAGEMENT OF PATIENT CARE PER NURSING PROTOCOL Performed By: #### L501.080 #### [facility] Point of Care [address] [place] [address] LACTIC ACID Collected: 07/22/2018 Status: F Source: [place] 10:15 PM [facility] REPOSITORY Order Comment: Yes/No query for Sepsis Lactate Rule Y TYPE CODE TESTS RESULT OUT OF RANGE REFERENCE UNITS LAB L503.6005 0.4-2.0 mmol/L Normal LACTIC ACID 1.2 Performed By: #### L503.6005 #### [facility] [address] [place], [place], [address] Observed: 07/22/2018 Status: F Source: [place] CULTURE, BLOOD (WB) 10:15 PM [facility] REPOSITORY BC No growth in 5 days. Performed By: #### M200.1000 #### [facility] [address] [place], [place], [address] Observed: 07/22/2018 Status: F Source: [place] CULTURE, BLOOD (WB) 10:10 PM [facility] REPOSITORY BC No growth in 5 days. Performed By: #### M200.1000 #### [facility] [address] [place], [place], [address] CHEST 1 VIEW Observed: 07/22/2018 Status: F Source: [place] (PORTABLE) 9:55 PM [facility] REPOSITORY [facility] Imaging Services [address] [address] Chest 1 View (Portable) MR#: [id number] Acct: [id number] Name: VICKI HERNANDEZ Rep #: [id number] : 1960 F 57 From: Joelle Mehta MD PCP: Rajesh Holman Status: REG ER Study: Chest 1 View (Portable) Date of Exam: 07/22/18 Exam# [id number] Ordering Dr: Maisha Dumont DO STUDY: X-RAY [...] Mehta MD at 22:40 EST Tel Direct: [phone], Service support , CC: Rajesh Holman; Maisha Dumont DO Shipping Assistant: Signed CBC W/DIFF, AUTOMATED Collected: 07/22/2018 Status: F Source: [place] 9:49 PM [facility] REPOSITORY TYPE CODE TESTS RESULT OUT OF [...] Lymph 0.91 Performed By: #### L100.0100 #### [facility] [address] [facility] [place], [address] BASIC METABOLIC Collected: 07/22/2018 Status: F Source: [place] PROFILE (BMP) 9:49 PM [facility] REPOSITORY TYPE CODE TESTS RESULT OUT OF [...] 9 Performed By: #### L500.2500, L501.4010 #### [facility] [address] [facility] [place], [address] TROPONIN-I Collected: 07/22/2018 Status: F Source: [place] 9:49 PM [facility] REPOSITORY TYPE CODE TESTS RESULT OUT OF RANGE REFERENCE UNITS LAB L501.4010 <0.045 ng/mL Normal < 0.015 TROPONIN-I Result Comment: TROPONIN-I EXPECTED VALUES <0.045 Negative 0.045 - 0.590 Consistent with Cardiac Damage > OR = 0.600 Critical Value Not every elevated troponin is indicative of ND. These values should be used with clinical judgement in examining the patient's clinical picture for diagnosis. To establish a diagnosis of ND versus myocardial injury, there must be a demonstrated rise and/or fall in the troponin values, in addition to ischemic symptoms, EKG changes, new regional wall motion abnormality, and/or angiographical evidence. PLEASE NOTE: REFERENCE RANGES EDITED 18 Performed By: #### L500.2500, L501.4010 #### [facility] [facility], [address] BNP,B-TYPE NATRIURETIC Collected: 07/22/2018 Status: F Source: [place] PEPTIDE 9:49 PM [facility] REPOSITORY TYPE CODE TESTS RESULT OUT OF RANGE REFERENCE UNITS LAB L503.6620 0-100 pg/mL High B-TYPE 166.0 RODERICK PEP Performed By: #### L503.6620 #### [facility] [address] [place], [address] MAGNESIUM Collected: 07/22/2018 Status: F Source: [place] 9:49 PM [facility] REPOSITORY TYPE CODE TESTS RESULT OUT OF RANGE REFERENCE UNITS LAB L501.5200 1.6-2.6 mg/dL Normal MG 2.1 Performed By: #### L501.5200, L501.9520 #### [facility] [address] [place], [address] THYROID STIM HORMONE Collected: 07/22/2018 Status: F Source: [place] (TSH) 9:49 PM [facility] REPOSITORY TYPE CODE TESTS RESULT OUT OF RANGE REFERENCE UNITS LAB L501.9520 0.358-3.74 uIU/mL Normal TSH 1.02 Performed By: #### L501.5200, L501.9520 #### [facility] [address] [place], [address] CBC W/DIFF, AUTOMATED Collected: 07/21/2018 Status: F Source: [place] 9:06 AM [facility] REPOSITORY TYPE CODE TESTS RESULT OUT OF [...] Lymph 0.87 Performed By: #### L100.0100 #### [facility] [address] [place], [address] COMPREHENSIVE METABOLIC Collected: 07/21/2018 Status: F Source: [place] [facility] 9:06 AM [facility] REPOSITORY TYPE CODE TESTS RESULT OUT OF [...] GAP 8 Performed By: #### L500.4050 #### [facility] [address] [place], [address] PROGRESS Observed: 07/20/2018 Status: COMPLETED Source: [place] 10:50 AM [facility] REPOSITORY HNO ID: [id number] Author: Melvina Emanuel) Sung Service: (none) Author [...] have appt to see pt on 07/22 Social Service Worker plan for next outreach: Will follow up 2 weeks Signature Melvina Almaraz RN July 20, 2018 CNPTOUTREACH Observed: 07/20/2018 Status: COMPLETED Source: [place] 12:00 AM [facility] REPOSITORY Patient Outreach (FAMPWS) VICKI HERNANDEZ ([id number]) 1960 F Date Time Provider Department 07/20/18 [...] have appt to see pt on 07/22 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 [5153] Prescriptions as of 07/20/2018 Sig: LORAZEPAM 0.5 [...] 07/20/18 PROGRESS Observed: 07/19/2018 Status: COMPLETED Source: [place] 4:57 PM [facility] REPOSITORY [facility] ID: [id number] Author: Melvina (Rn) Sung Service: (none) Author Type: Registered Nurse Type: Progress Notes Filed: 07/19/2018 5:05 PM Note Text: PRIMARY CARE COORDINATION QUICK NOTE Provider Action/FYI [facility] referral called to Isha in Admission and records faxed Lab orders faxed to [facility] HH Ativan script called to [facility] TC to pt, informed ativan prescription approved and referral to [facility] done Patient identified by name and date . The following prescriptions have been called to [facility] pharmacy 07/19/2018 at 4:57 PM by Melvnia Almaraz RN. I spoke with Champ in the pharmacy. Signed Prescriptions Disp Refills LORazepam (ATIVAN) 0.5 mg tab 60 tablet 0 Sig: Take 1 tablet by mouth every 6 hours as needed (anxiety) for up to 30 days. EDMAR Class: C-IV PEE: No PROGRESS Observed: 07/19/2018 Status: COMPLETED Source: [place] 4:22 PM [facility] REPOSITORY HNO ID: [id number] Author: Rajesh Holman Service: (none) Author Type: Physician Type: Progress Notes Filed: 07/19/2018 5:05 PM Note Text: Agree. oarrs checked. Scripts are needed and appropriate PROGRESS Observed: 07/19/2018 Status: COMPLETED Source: [place] 3:07 PM [facility] REPOSITORY HNO ID: [id number] Author: Melvina (Rn) Sung Service: (none) Author [...] patient, discussed [facility] doesn't go to [facility] and PCC called [facility] to asking if there are any providers who visit the home in [facility], [facility] no. Social Service Worker plan for next outreach: Will follow up one week Signature Melvina Almaraz RN July 19, 2018 CNPTOUTREACH Observed: 07/19/2018 Status: COMPLETED Source: [place] 12:00 AM [facility] REPOSITORY Patient Outreach (FAMPWS) VICKI HERNANDEZ ([id number]) 1960 F Date Time Provider Department 07/19/18 [...] patient, discussed [facility] doesn't go to [facility] and PCC called [facility] to asking if there are any providers who visit the home in [facility], [facility] no. Social Service Worker plan for next outreach: Will follow up one week Signature Melvina Almaraz RN July 19, 2018 Rajesh Homlan MD 07/19/2018 5:05 PM Signed Agree. oarrs checked. Scripts are needed and appropriate Melvina Almaraz RN 07/19/2018 5:05 PM Signed PRIMARY CARE COORDINATION QUICK NOTE Provider Action/FYI [facility] referral called to Isha in Admission and records faxed Lab orders faxed to [facility] Ativan script called to [facility] TC to pt, informed ativan prescription approved and referral to [facility] done Patient identified by name and date . The following prescriptions have been called to 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 [3612] Primary Visit Diagnosis:Lymphedema [I89.0] Other Visit Diagnoses:Anxiety [F41.9] Heart failure, diastolic, acute (HCC) [I50.31] Obesity, morbid, BMI 50 or higher ([facility]) [E66.01] Pulmonary HTN ([facility]) [I27.20] Type 2 diabetes mellitus with complication, with long-term current use of insulin ([facility]) [E11.8, Z79.4] Order(s):LORazepam (ATIVAN) 0.5 mg tabTake 1 tablet by mouth every 6 hours as needed (anxiety) for up to 30 days.Disp: 60 tabletRfl: 0 CONSULT TO PALLIATIVE CARE [[id number]] Order #: [id number]: 1 COMPOUNDED PRESCRIPTIONCBC and Diff and CMP [...] As Of Date 07/19/2018 Noted Resolved Diabetes ([facility]) [E11.9] INVALID FOR* More... Atrial fibrillation ([facility]) [I48.91] INVALID FOR* Priority: A More... Lymphedema [I89.0] INVALID FOR* Priority: B More... Heart failure, systolic and diastolic, acute on*INVALID FOR*12/31/2014 More... Obesity, morbid, BMI 50 or higher ([facility]) [E66.01]INVALID FOR* More... Hypertension [I10] INVALID FOR* More... HUNTER (obstructive sleep apnea) [G47.33] INVALID FOR* More... Pulmonary HTN ([facility]) [I27.20] INVALID FOR* More... Atrial fibrillation with RVR ([facility]) [I48.91] INVALID FOR*09/23/2016 More... Heart failure, diastolic, acute ([facility]) [I50.31] INVALID FOR* More... Counseling and coordination of care [Z71.89] INVALID FOR*04/12/2015 More... Monoclonal gammopathy [D47.2] INVALID FOR* Empty sella turcica ([facility]) [E23.6] INVALID FOR* More... Uncontrolled type 2 [...] 07/19/18 PROGRESS Observed: 07/01/2018 Status: COMPLETED Source: [place] 4:08 PM [facility] REPOSITORY HNO ID: [id number] Author: Melivna Emanuel) Sung Service: (none) Author Type: Registered [...] RN CNPTOUTREACH Observed: 07/01/2018 Status: COMPLETED Source: [place] 12:00 AM [facility] REPOSITORY Patient Outreach (FAMPWS) VICKI HERNANDEZ ([id number]) 1960 F Date Time Provider Department 07/01/18 [...] Date Reviewed: 06/08/2017 Reviewed by: Karena Shaikh Children'S Entertainer - Fully Assessed Reason for Visit: Personal Service Workers - Patient Initiated [3614] Prescriptions as of [...] 07/01/18 PROGRESS Observed: 06/20/2018 Status: COMPLETED Source: [place] 2:54 PM [facility] REPOSIT[facility] ID: [id number] Author: Melvina (Rn) Sung Service: (none) Author [...] PCP. Called [employer] transportation in [facility] and left message to call PCC back. PCC and SW called numerous transportation companies in [facility] and [facility]. No transportation company will transport for patient's home to [facility]. Patient upset because she cannot find transportation to come into see PCP. Discussed pt having [facility] see pt until she is able to get in her van to come to see PCP. Pt states she will not see [facility]. She will only see her PCP or YOANA Hernandez. Social Service Worker plan for next outreach: Will follow up one month Signature Melvina Almaraz RN June 20, 2018 NATHANAEL Observed: 06/20/2018 Status: COMPLETED Source: [place] 12:00 AM [facility] REPOSITORY Patient Outreach (FAMPWS) VICKI HERNANDEZ ([id number]) 1960 F Date Time Provider Department 06/20/18 [facility] (RN) [facility] During your visit today, we recorded [...] PCP. Called [employer] transportation in [facility] and left message to call PCC back. PCC and SW called numerous transportation companies in [facility] and [facility]. No transportation company will transport for patient's home to [facility]. Patient upset because she cannot find transportation to come into see PCP. Discussed pt having [facility] see pt until she is able to get in her van to come to see PCP. Pt states she will not see [facility]. She will only see her PCP or YOANA Hernandez. 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 Interpretation Summary Deep veins of the lower [...] Date Dictated: 06/07/18 1310 Date Transcribed: 06/13/18809 Shipping Assistant: Signed LOWER EXT ARTERIAL Observed: 06/12/2018 Status: F Source: [place] STUDY 10:56 AM [facility] REPOSITORY [facility] Cardiovascular Services [address] [place] [address] 06/12/18 1049 MR#: [id number] Acct: [id number] Name: VICKI HERNANDEZ Rep #: [id number] : 1960 57 From: Henry Caballero MD [...] MD Date Dictated: 06/12/181048 Date Transcribed: 06/12/181048 Shipping Assistant: BHANU Signed PROGRESS Observed: 06/06/2018 Status: COMPLETED Source: [place] 4:30 PM [facility] [place] REPOSITORY HNO ID: [id number] Author: Melvina Emanuel) Sung Service: (none) Author Type: Registered Nurse Type: Progress Notes Filed: 06/06/2018 4:31 PM Note Text: Faxed request for Medical Records; Discharge Summary, Medication List and Cardiology note for hospitalization in December 2017 to [facility]. Melvina Almaraz RN June 06, 2018 4:31 PM PROGRESS Observed: 06/06/2018 Status: COMPLETED Source: [place] 4:07 PM [facility] REPOSITORY HNO ID: [id number] Author: Melvina Emanuel) Sung Service: (none) Author [...] The following prescriptions have been called to [facility] pharmacy 06/06/2018 at 4:08 PM [...] a prior authorization. Informed PCC clarified with [facility] that pt was receiving 480 mg at her admission and during her stay there. Pt states she was put on that dose by [facility] and [facility]. Melvina Almaraz RN June 06, 2018 4:12 PM PROGRESS Observed: 06/06/2018 Status: COMPLETED Source: [place] 12:40 PM [facility] REPOSITORY HNO ID: [id number] Author: Rajesh Holman Service: (none) Author Type: Physician Type: Progress Notes Filed: 06/06/2018 1:50 PM Note Text: Gave one refill to allow time to come in. Checked oarrs PROGRESS Observed: 06/06/2018 Status: COMPLETED Source: [place] 12:32 PM [facility] REPOSITORY HNO ID: [id number] Author: Melvina Emanuel) Sung Service: (none) Author Type: Registered Nurse Type: Progress Notes Filed: 06/06/2018 12:36 PM Note Text: PRIMARY CARE COORDINATION FOLLOW-UP NOTE Provider Action/TAHIRA TC to [facility] to verify pt was taking [...] Spoke to patient and Med Rec at [facility] Summary: Patient phones requesting refills as follows: [...] mouth once daily. Please review and advise. Social Service Worker plan for next outreach: Will follow up 1-2 weeks Signature Melvina Almaraz RN June 06, 2018 NATHANAEL Observed: 06/06/2018 Status: COMPLETED Source: [place] 12:00 AM [facility] REPOSITORY Patient Outreach (FAMPWS) VICKI HERNANDEZ ([id number]) 1960 F Date Time Provider Department 06/06/18 MELVINA ALMARAZ (RN) [facility]WS During your visit today, we recorded the following information about you: Melvina Almaraz RN 06/06/2018 12:36 PM Signed PRIMARY CARE COORDINATION FOLLOW-UP NOTE Provider Action/TAHIRA BO to [facility] to verify pt was taking [...] Spoke to patient and Med Rec at [facility] Summary: Patient phones requesting refills as follows: [...] mouth once daily. Please review and advise. Social Service Worker plan for next outreach: Will follow up [...] The following prescriptions have been called to [facility] pharmacy 06/06/2018 at 4:08 PM [...] she was put on that dose by white sp[facility] and [facility]. Melvina Almaraz RN June 06, 2018 4:12 PM Melvina Almaraz RN 06/06/2018 4:31 PM Signed Faxed request for Medical Records; Discharge Summary, Medication List and Cardiology note for hospitalization in December 2017 to [facility]. 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 for Visit: Personal Service Workers - Patient Initiated [5264] Visit Diagnoses:Atrial fibrillation, unspecified type (HCC) [I48.91] [...] 06/06/18 PROGRESS Observed: 05/19/2018 Status: COMPLETED Source: [place] 11:55 AM [facility] REPOSITORY HNO ID: [id number] Author: Melvina Emanuel) Sung Service: (none) Author Type: Registered Nurse Type: Progress Notes Filed: 05/19/2018 1:45 PM Note Text: PRIMARY CARE COORDINATION FOLLOW-UP NOTE Provider Action/FYI FBS and Afternoon BS ranging 140's to highest 174 No hypoglycemia PCP appt scheduled 06/16 Vascular Studies on 05/24 then Lymphedema Clinic at [facility] Patient identified by name and date of . YES Spoke to patient Summary: SOB with ambulating in home, normal respirations resume in 2-3 minutes rest No cough or chest pain LE edema is the same LE wounds were debrided at [facility] two weeks ago. Pt just bathed, washed and re-dressed wounds Pain level currently 4/10, took Tylenol ES If pain is 6+/10 pt takes 1 Tramadol with relief. Gabapentin 400 mg QID is helping Lymphedema pain. Having Vascular Studies on 05/24. After studies Wound Center MD wants to send pt to Lymphedema Clinic. Social Service Worker plan for next outreach: Will follow up one month Signature Melvina Almaraz RN May 19, 2018 CNPTOUTREACH Observed: 05/19/2018 Status: COMPLETED Source: [place] 12:00 AM [facility] REPOSITORY Patient Outreach (FAMPWS) VICKI HERNANDEZ ([id number]) 1960 F Date Time Provider Department 05/19/18 MELVINA ALMARAZ) DEANNAWS During your visit today, we recorded the following information about you: Melvina Almaraz RN 05/19/2018 1:45 PM Signed PRIMARY CARE COORDINATION FOLLOW-UP NOTE Provider Action/FYI FBS and Afternoon BS ranging 140's to highest 174 No hypoglycemia PCP appt scheduled 06/16 Vascular Studies on 05/24 then Lymphedema Clinic at [facility] Patient identified by name and date of . YES Spoke to patient Summary: SOB with ambulating in home, normal respirations resume in 2-3 minutes rest No cough or chest pain LE edema is the same LE wounds were debrided at [facility] two weeks ago. Pt just bathed, washed and re-dressed wounds Pain level currently 4/10, took Tylenol ES If pain is 6+/10 pt takes 1 Tramadol with relief. Gabapentin 400 mg QID is helping Lymphedema pain. Having Vascular Studies on 05/24. After studies Wound Center wants to send pt to Lymphedema Clinic. 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 [3612] Primary Visit Diagnosis:Type 2 diabetes mellitus with peripheral neuropathy ([facility]) [E11.42] Other Visit Diagnoses:Obesity, morbid, BMI 50 or higher ([facility]) [E66.01] Hypertension, unspecified type [I10] Heart failure, diastolic, acute ([facility]) [I50.31] Order(s):LIPID PANEL, NONFASTING [SQLIPNF] Order #: [id number] FUTURE Prescriptions as of 05/19/2018 Sig: TRAMADOL [...] F Source: [place] AND PHYSICAL 5:04 PM [facility] REPOSITORY [facility] [address] [place] [address] Wound Ctr History AND Physical 05/11/18 1613 MR#: [id number] Acct: [id number] Name: VICKI HERNANDEZ Rep #: [id number] : 1960 57 From: Mariluz MICHELLEC PCP: [...] Date Recorded By Document 05/10/18 14:49 CS [id number] 05/10/18 15:02 CS Wound Center Nurse 1 [...] Recorded Date Recorded By Document 05/10/18 15:29 [id number] 05/10/18 15:35 Wound Center Nurse 2 [Procedure/Treatment] [...] Recorded Date Recorded By Document 05/10/18 15:29 [id number] 05/10/18 15:35 Wound Center Nurse 2 #6 [...] The wound center will order Santyl through [facility] specialty pharmacy. Will order vascular studies. [...] Signed PROGRESS Observed: 05/11/2018 Status: COMPLETED Source: [place] 1:22 PM [facility] [place] REPOSITORY [facility] ID: [id number] Author: Venkata Jean-Baptiste (Rn) Service: (none) Author [...] 2018 PROGRESS Observed: 05/11/2018 Status: COMPLETED Source: [place] 12:15 PM [facility] REPOSITORY HNO ID: [id number] Author: Rajesh Holman Service: (none) Author Type: Physician Type: Progress Notes Filed: 05/11/2018 1:42 PM Note Text: Ok to refill. She is aware not to use with benzo at same time. oarrs checked. PROGRESS Observed: 05/11/2018 Status: COMPLETED Source: [place] 11:50 AM [facility] REPOSITORY HNO ID: [id number] Author: Venkata MosesRn) Service: (none) Author Type: Registered Nurse Type: Progress Notes Filed: 05/11/2018 1:42 PM Note Text: PRIMARY CARE COORDINATION FOLLOW-UP NOTE Provider Action/FYI Spk with Pt notified per Dr. Holman She can take up to 3000 mg a day of tyelnol. Pt is requesting more Tramadol sent to [facility] in [place], and noted appreciation, will check with Pharmacy for refill today. Patient identified by name and date of . YES Spoke to patient Signature Estiven Hastings RN May 11, 2018 PROGRESS Observed: 05/11/2018 Status: COMPLETED Source: [place] 11:40 AM [facility] REPOSITORY HNO ID: [id number] Author: Rajesh Holman Service: (none) Author Type: Physician Type: Progress Notes Filed: 05/11/2018 1:42 PM Note Text: She can take up to 3000 mg a day of tyelnol. Does she want more tramadol? PROGRESS Observed: 05/11/2018 Status: COMPLETED Source: [place] 11:08 AM [facility] REPOSITORY HNO ID: [id number] Author: Venkata Jean-Baptiste (Rn) Service: (none) Author Type: Registered Nurse Type: Progress Notes Filed: 05/11/2018 1:42 PM Note Text: PRIMARY CARE COORDINATION FOLLOW-UP NOTE Provider Action/FYI Call from Pt who notes she is having pain rated at 7/10 after 05/10/18 debridement of bilateral legs at [facility]. Pt states took [...] 2018 BRYONTOUTRWILBUR Observed: 05/11/2018 Status: COMPLETED Source: [place] 12:00 AM [facility] REPOSITORY Patient Outreach (FAMPWS) VICKI HERNANDEZ ([id number]) 1960 F Date Time Provider Department 05/11/18 VENKATA JEAN-BAPTISTE [facility]EVGENY[facility] During your visit today, we recorded the following information about you: Estiven Hastings RN 05/11/2018 1:42 PM Signed PRIMARY CARE COORDINATION FOLLOW-UP NOTE Provider Action/FYI Call from Pt who notes she is having pain rated at 7/10 after 05/10/18 debridement of bilateral legs at [facility]. Pt states took [...] Pt is requesting more Tramadol sent to [facility] in [place], and noted appreciation, will check with Pharmacy [...] Date Reviewed: 06/08/2017 Reviewed by: Karena Shaikh Children'S Entertainer - Fully Assessed Reason for Visit: Personal Service Workers - Patient Initiated [3604] Cmt: S/P Debridement Pain Reason For Visit [...] (HCC) [E11.9] INVALID FOR* More... Atrial fibrillation ([facility]) [I48.91] INVALID FOR* Priority: A More... Lymphedema [I89.0] INVALID FOR* Priority: B More... Heart failure, systolic and diastolic, acute on*INVALID FOR*12/31/2014 More... Obesity, morbid, BMI 50 or higher ([facility]) [E66.01]INVALID FOR* More... Hypertension [I10] INVALID FOR* More... HUNTER (obstructive sleep apnea) [G47.33] INVALID FOR* More... Pulmonary HTN ([facility]) [I27.20] INVALID FOR* More... Atrial fibrillation with RVR ([facility]) [I48.91] INVALID FOR*09/23/2016 More... Heart failure, diastolic, acute ([facility]) [I50.31] INVALID FOR* More... Counseling and coordination of care [Z71.89] INVALID FOR*04/12/2015 More... Monoclonal gammopathy [D47.2] INVALID FOR* Empty sella turcica ([facility]) [E23.6] INVALID FOR* More... Uncontrolled type 2 [...] 05/11/18 PROGRESS Observed: 05/03/2018 Status: COMPLETED Source: [place] 1:28 PM [facility] REPOSITORY HNO ID: [id number] Author: Melvina Emanuel) Sung Service: (none) Author Type: Registered Nurse Type: Progress Notes Filed: 05/03/2018 1:28 PM Note Text: The following prescriptions have been approved and faxed to [facility]: Signed Prescriptions Disp Refills gabapentin (NEURONTIN) 400 mg capsule 120 capsule 3 Sig: Take 1 capsule by mouth four times daily. PEE: No LORazepam (ATIVAN) 0.5 mg tab 60 tablet 0 Sig: Take 1 tablet by mouth every 6 hours as needed (anxiety) for up to 30 days. EDMAR Class: C-IV PEE: No Melvina Almaraz RN PROGRESS Observed: 05/02/2018 Status: COMPLETED Source: [place] 5:29 PM [facility] REPOSITORY [facility]NO ID: [id number] Author: Melvina Emanuel) Sung Service: (none) Author [...] Please review and advise. Melvina Almaraz RN Social Service Worker plan for next outreach: Will follow up 3 weeks Signature Melvina Almaraz RN May 02, 2018 BRYONTOUTREACH Observed: 05/02/2018 Status: COMPLETED Source: [place] 12:00 AM [facility] REPOSITORY Patient Outreach (FAMPWS) VICKI HERNANDEZ ([id number]) 1960 F Date Time Provider Department 05/02/18 [...] Please review and advise. Melvina Almaraz RN Social Service Worker plan for next outreach: Will follow up 3 weeks Signature Melvina Almaraz RN May 02, 2018 Melvina Almaraz RN 05/03/2018 1:28 PM Signed The following prescriptions have been approved and faxed to [facility]: Signed Prescriptions Disp Refills gabapentin (NEURONTIN) 400 [...] Date Reviewed: 06/08/2017 Reviewed by: Karena Shaikh Children'S Entertainer - Fully Assessed Reason for Visit: Personal Service Workers Chronic Care [8884] Visit Diagnoses:Lymphedema [I89.0] Anxiety [F41.9] Order(s):gabapentin (NEURONTIN) [...] 05/03/18 PROGRESS Observed: 04/19/2018 Status: COMPLETED Source: [place] [place] 3:20 PM [facility] REPOSITORY HNO ID: [id number] Author: Venkata Jean-Baptiste (Rn) Service: (none) Author Type: Registered Nurse Type: Progress Notes Filed: 04/19/2018 3:23 PM Note Text: PRIMARY CARE COORDINATION FOLLOW-UP NOTE Provider Action/FYI Call from Pt who noted the Achieve Xel AG Extra 10x12 cm did come in the mail. No further needs at this time. Patient identified by name and date of . YES Signature Estiven Hastings RN April 19, 2018 PROGRESS Observed: 04/19/2018 Status: COMPLETED Source: [place] 1:15 PM [facility] REPOSITORY HNO ID: [id number] Author: Venkata Jean-Baptiste (Rn) Service: (none) Author [...] 2018 CNPTOUTREACH Observed: 04/19/2018 Status: COMPLETED Source: [place] 12:00 AM [facility] REPOSITORY Patient Outreach (FAMPWS) VICKI HERNANDEZ ([id number]) 1960 F Date Time Provider Department 04/19/18 VENKATA JEAN-BAPTISTE (RN) FAMPWS During your visit today, we recorded the following information about you: Estivne Hastings RN 04/19/2018 3:23 PM Signed PRIMARY [...] Date Reviewed: 06/08/2017 Reviewed by: Karena Shaikh Children'S Entertainer - Fully Assessed Reason for Visit: Personal Service Workers Chronic Care [2722] Cmt: Aquacel Prescriptions as of 04/19/2018 Sig: [...] INVALID FOR*09/23/2016 More... Heart failure, diastolic, acute ([facility]) [I50.31] INVALID FOR* More... Counseling and coordination of care [Z71.89] INVALID FOR*04/12/2015 More... Monoclonal gammopathy [D47.2] INVALID FOR* Empty sella turcica (HCC) [E23.6] INVALID FOR* More... Uncontrolled type 2 diabetes mellitus without c*INVALID FOR*09/23/2016 Encounter Status:Closed by ESTIVEN HASTINGS on 04/19/18 PROGRESS Observed: 04/18/2018 Status: COMPLETED Source: [place] 9:04 AM [facility] [place] REPOSITORY O ID: [id number] Author: Lizzie Springer Cma Service: (none) Author Type: (none) Type: Progress Notes Filed: 04/18/2018 9:06 AM Note Text: I spoke with Vicki and she states she's not avoiding coming in for an appointment she's just having trouble with getting in and out of vehicle for transportation. She states she's doing well after being home from the [facility]. heart is good, sugars are better, ambulating better, but still having difficulty getting in and out of vehicle. She states she will be in for an open access appointment as soon as she feels able and will get labs done. PROGRESS Observed: 04/18/2018 Status: COMPLETED Source: [place] 8:57 AM [facility] [place] REPOSITORY HNO ID: [id number] Author: Lizzie Springer [facility] Service: (none) Author Type: (none) Type: Progress Notes Filed: 04/18/2018 9:06 AM Note Text: Left message for patient to return call #[phone] PROGRESS Observed: 04/15/2018 Status: COMPLETED Source: [place] 3:00 PM [facility] REPOSITORY HNO ID: [id number] Author: Lizzie Springer [facility] Service: (none) Author Type: (none) [...] DM w/labs prior with Provider pcp or turning machine set up operator/pa Lizzie Springer Cma CNPTOUTREACH Observed: 04/15/2018 Status: COMPLETED Source: [place] 12:00 AM [facility] REPOSITORY Patient Outreach (FAMPWS) VICKI HERNANDEZ ([id number]) 1960 F Date Time Provider Department 04/15/18 LIZZIE SPRINGER (ASHLEY) FAMPWS During your visit today, we recorded the following information about you: Lizzie Springer Cma 04/18/2018 9:06 AM Signed [facility] CARE GAP REGISTRY DOCUMENTATION (OUTSIDE TEAMLET) [...] DM w/labs prior with Provider pcp or turning machine set up operator/pa Lizzie Springer [facility] Lizzie Springer [facility] 04/18/2018 9:06 AM Signed Left message for patient to return call #[phone] Lizzie Springer [facility] 04/18/2018 9:06 AM Signed I spoke with Vicki and she states she's not avoiding coming in for an appointment she's just having trouble with getting in and out of vehicle for transportation. She states she's doing well after being home [facility] the [facility]. heart is good, sugars are better, ambulating [...] Date Reviewed: 06/08/2017 Reviewed by: Karena Shaikh Children'S Entertainer - Fully Assessed Reason for Visit: PHMA/Care Gap Outreach [3605] Primary Visit Diagnosis:Diabetes mellitus due to underlying condition with hyperosmolarity without coma, without long-term current use of insulin ([facility]) [E08.00] Order(s):HGB A1C [BTSKW0F] Order #: [id number] FUTURE LIPID PANEL BASIC [SQLIPB] Order #: [id number] FUTURE ALBUMIN/CREAT RATIO RND UR [SQUACR] Order #: [id number] FUTURE Prescriptions as of 04/15/2018 Sig: LORAZEPAM [...] 04/18/18 PROGRESS Observed: 04/14/2018 Status: COMPLETED Source: [place] 3:55 PM [facility] REPOSITORY HNO ID: [id number] Author: Melvina Emanuel) Sung Service: (none) Author Type: Registered Nurse Type: Progress Notes Filed: 04/14/2018 3:55 PM Note Text: PRIMARY CARE COORDINATION QUICK NOTE Provider Action/FYI TC to pt informing Ativan has been refilled Patient identified by name and date DOB. Melvina Almaraz RN April 14, 2018 3:55 PM PROGRESS Observed: 04/13/2018 Status: COMPLETED Source: [place] 3:24 PM [facility] REPOSITORY HNO ID: [id number] Author: Melvina Emanuel) Sung Service: (none) Author [...] decrease amount for a week or so. Social Service Worker plan for next outreach: Will follow up 3 weeks Signature Melvina Almaraz RN April 13, 2018 [facility] Observed: 04/13/2018 Status: COMPLETED Source: [place] 12:00 AM [facility] REPOSITORY Patient Outreach (FAMPWS) VICKI HERNANDEZ ([id number]) 1960 F Date Time Provider Department 04/13/18 [...] decrease amount for a week or so. 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 [9817] Visit Diagnosis:Anxiety [F41.9] Order(s):LORazepam (ATIVAN) 0.5 mg [...] As Of Date 04/13/2018 Noted Resolved Diabetes ([facility]) [E11.9] INVALID FOR* More... Atrial fibrillation ([facility]) [I48.91] INVALID FOR* Priority: A More... Lymphedema [I89.0] INVALID FOR* Priority: B More... Heart failure, systolic and diastolic, acute on*INVALID FOR*12/31/2014 More... Obesity, morbid, BMI 50 or higher ([facility]) [E66.01]INVALID FOR* More... Hypertension [I10] INVALID FOR* More... HUNTER (obstructive sleep apnea) [G47.33] INVALID FOR* More... Pulmonary HTN ([facility]) [I27.20] INVALID FOR* More... Atrial fibrillation with RVR ([facility]) [I48.91] INVALID FOR*09/23/2016 More... Heart failure, diastolic, acute ([facility]) [I50.31] INVALID FOR* More... Counseling and coordination of care [Z71.89] INVALID FOR*04/12/2015 More... Monoclonal gammopathy [D47.2] INVALID FOR* Empty sella turcica ([facility]) [E23.6] INVALID FOR* More... Uncontrolled type 2 [...] not on file. Encounter Status:Closed by MELVINA ALMAARZ on 04/14/18 PROGRESS Observed: 04/12/2018 Status: COMPLETED Source: [place] 2:54 PM [facility] REPOSITORY HNO ID: [id number] Author: Melvina Emanuel) Sung Service: (none) Author [...] PM PROGRESS Observed: 04/12/2018 Status: COMPLETED Source: [place] 1:33 PM [facility] REPOSITORY HNO ID: [id number] Author: Rajesh Holman Service: (none) Author Type: Physician Type: Progress Notes Filed: 04/12/2018 2:58 PM Note Text: Written, oarrs done PROGRESS Observed: 04/12/2018 Status: COMPLETED Source: [place] 11:47 AM [facility] REPOSITORY HNO ID: [id number] Author: Melvina Emanuel) Sung Service: (none) Author [...] the pain. Pt is out of oxycodone Social Service Worker plan for next outreach: Will follow up one week Signature Melvina Almaraz RN April 12, 2018 PROGRESS Observed: 04/11/2018 Status: COMPLETED Source: [place] 6:19 PM [facility] REPOSITORY HNO ID: [id number] Author: Rajesh Holman Service: (none) Author Type: Physician Type: Progress Notes Filed: 04/12/2018 2:58 PM Note Text: Ok to increase edson to tid. How often is she taking oxycodone. Is she taking regularly. They are very different meds and actually oppose each other so would have to back off percocet if taking round the clock PROGRESS Observed: 04/11/2018 Status: COMPLETED Source: [place] 2:50 PM [facility] REPOSITORY HNO ID: [id number] Author: Edie Chavez Service: (none) Author Type: [...] Can she increase a little more? TID? Social Service Worker plan for next outreach: Will follow up with MD lozoya. Nithya Chavez RN Ambulatory Personal Service Workers Internal Medicine [facility] April 11, 2018 BRYONTOUTREACH Observed: 04/11/2018 Status: COMPLETED Source: [place] 12:00 AM [facility] REPOSITORY Patient Outreach (INTMWS) VICKI HERNANDEZ ([id number]) 1960 F Date Time Provider Department 04/11/18 [...] Can she increase a little more? TID? Social Service Worker plan for next outreach: Will follow up with MD answer. Signature Edie Chavez RN Ambulatory Personal Service Workers Internal Medicine [facility] April 11, 2018 Rajesh Holman MD [...] the pain. Pt is out of oxycodone 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 [3612] Primary Visit Diagnosis:Multiple open [...] As Of Date 04/11/2018 Noted Resolved Diabetes ([facility]) [E11.9] INVALID FOR* More... Atrial fibrillation ([facility]) [I48.91] INVALID FOR* Priority: A More... Lymphedema [I89.0] INVALID FOR* Priority: B More... Heart failure, systolic and diastolic, acute on*INVALID FOR*12/31/2014 More... Obesity, morbid, BMI 50 or higher ([facility]) [E66.01]INVALID FOR* More... Hypertension [I10] INVALID FOR* More... HUNTER (obstructive sleep apnea) [G47.33] INVALID FOR* More... Pulmonary HTN ([facility]) [I27.20] INVALID FOR* More... Atrial fibrillation with RVR ([facility]) [I48.91] INVALID FOR*09/23/2016 More... Heart failure, diastolic, acute ([facility]) [I50.31] INVALID FOR* More... Counseling and coordination of care [Z71.89] INVALID FOR*04/12/2015 More... Monoclonal gammopathy [D47.2] INVALID FOR* Empty sella turcica ([facility]) [E23.6] INVALID FOR* More... Uncontrolled type 2 [...] 04/12/18 PROGRESS Observed: 04/06/2018 Status: COMPLETED Source: [place] 11:49 AM [facility] REPOSITORY HNO ID: [id number] Author: Melvina Emanuel) Sung Service: (none) Author [...] AM PROGRESS Observed: 04/06/2018 Status: COMPLETED Source: [place] 10:22 AM [facility] REPOSITORY HNO ID: [id number] Author: Rajesh Holman Service: (none) Author Type: Physician Type: Progress Notes Filed: 04/06/2018 11:53 AM Note Text: Lets increase her neurontin to 400 mg po bid and increase humalog to 6 units tid. See if pain is improved first and then we will try and wean the pain pills PROGRESS Observed: 04/06/2018 Status: COMPLETED Source: [place] 9:58 AM [facility] REPOSITORY HNO ID: [id number] Author: Melvina (Evgeny) Sung Service: (none) Author [...] unit/mL Inject 15 Units daily at bedtime. Social Service Worker plan for next outreach: Will follow up next week Signature Melvina Almaraz RN April 06, 2018 CNPTOUTREACH Observed: 04/06/2018 Status: COMPLETED Source: [place] 12:00 AM [facility] REPOSITORY Patient Outreach (FAMPWS) VICKI HERNANDEZ ([id number]) 1960 F Date Time Provider Department 04/06/18 [...] unit/mL Inject 15 Units daily at bedtime. 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 [2726] Visit Diagnosis:Lymphedema [I89.0] Order(s):insulin lispro (HUMALOG KWIKPEN [...] More... Obesity, morbid, BMI 50 or higher ([facility]) [E66.01]INVALID FOR* More... Hypertension [I10] INVALID FOR* More... HUNTER (obstructive sleep apnea) [G47.33] INVALID FOR* More... Pulmonary HTN (HCC) [I27.20] INVALID FOR* More... Atrial fibrillation with RVR ([facility]) [I48.91] INVALID FOR*09/23/2016 More... Heart failure, diastolic, acute (HCC) [I50.31] INVALID FOR* More... Counseling and coordination of care [Z71.89] INVALID FOR*04/12/2015 More... Monoclonal gammopathy [D47.2] INVALID FOR* Empty sella turcica ([facility]) [E23.6] INVALID FOR* More... Uncontrolled type 2 [...] 04/06/18 PROGRESS Observed: 04/01/2018 Status: COMPLETED Source: [place] 4:10 PM [facility] RE[facility] HNO ID: [id number] Author: Rocco Smith LPN Service: (none) Author Type: (none) Type: Progress Notes Filed: 04/01/2018 4:10 PM Note Text: Completed as requested. PROGRESS Observed: 04/01/2018 Status: COMPLETED Source: [place] 2:45 PM [facility] [place] REPOSITORY HNO ID: [id number] Author: Rajesh Holman Service: (none) Author Type: Physician Type: Progress Notes Filed: 04/01/2018 4:10 PM Note Text: done PROGRESS Observed: 04/01/2018 Status: COMPLETED Source: [place] 1:43 PM [facility] [place] REPOSITORY HNO ID: [id number] Author: Melvina Emanuel) Sung Service: (none) Author Type: Registered Nurse Type: Progress Notes Filed: 04/01/2018 2:05 PM Note Text: PRIMARY CARE COORDINATION QUICK NOTE Provider Action/FYI Letter pended re: jury duty Please fax to [facility] [phone] and mail copy to patient. PLEASE SIGN LETTER, FAX COPY TO COURT AND MAIL COPY TO PT Patient identified by name and date . TC from patient, states she received notice for jury duty in [facility]. She is required to have letter as to why she cannot serve. CNPTOUTREACH Observed: 04/01/2018 Status: COMPLETED Source: [place] 12:00 AM [facility] REPOSITORY Patient Outreach (FAMPWS) VICKI HERNANDEZ ([id number]) 1960 F Date Time Provider Department 04/01/18 MELVINA ALMARAZ) AUDREY During your visit today, we recorded the following information about you: Melvina Almaraz RN 04/01/2018 2:05 PM Signed PRIMARY CARE COORDINATION QUICK NOTE Provider Action/FYI Letter pended re: jury duty Please fax to [facility] [phone] and mail copy to patient. PLEASE SIGN LETTER, FAX COPY TO COURT AND MAIL COPY TO PT Patient identified by name and date . TC from patient, states she received notice for jury duty in [facility]. She is required to have letter as [...] Date Reviewed: 06/08/2017 Reviewed by: Karena Shaikh Children'S Entertainer - Fully Assessed Reason for Visit: Personal Service Workers - Patient Initiated [3434] Prescriptions as of 04/01/2018 Sig: INSULIN LISPRO [...] History Recorded Letter Text Rajesh Holman MD [address] [place], [place] [address] April 01, 2018 PATIENT: Vicki Hernandez CLINIC NUMBER: [id number] To whom it may concern: Please excuse Ms. Hernandez from Jury Duty. Ms. Hernandez is followed in my office at [facility] for multiple acute and chronic diseases. Please excuse Ms. Hernandez from jury duty. Please do not hesitate to call if you have any questions. Sincerely, Rajesh Holman MD CC: Vicki Hernandez [address] [employer] [id number] Encounter Status:Closed by ROCCO SMITH LPN on 04/01/18 PROGRESS Observed: 03/31/2018 Status: COMPLETED Source: [place] 11:08 AM [facility] REPOSITORY HNO ID: [id number] Author: Melvina Emanuel) Sung Service: (none) Author [...] day. PROGRESS Observed: 03/31/2018 Status: COMPLETED Source: [place] 10:06 AM [facility] REPOSITORY HNO ID: [id number] Author: Rajesh Holman Service: (none) Author Type: Physician Type: Progress Notes Filed: 03/31/2018 10:06 AM Note Text: Lets have her start low dose with meals and continue other insulin also PROGRESS Observed: 03/31/2018 Status: COMPLETED Source: [place] 9:47 AM [facility] REPOSITORY HNO ID: [id number] Author: Melvina Emanuel) Sung Service: (none) Author [...] she isn't strong enough to get to [place]. Continues to work with PT/OT HH nurse changing LE dressings every other day. States wounds are improving Patient identified by name and date . TC to patient, instructed to increase Lantus to 15 units daily, verbalized understanding by teach back. Melvina Almaraz RN March 31, 2018 9:52 AM PROGRESS Observed: 03/30/2018 Status: COMPLETED Source: [place] 4:51 PM [facility] REPOSITORY HNO ID: [id number] Author: Rajesh Holman Service: (none) Author Type: Physician Type: Progress Notes Filed: 03/30/2018 4:52 PM Note Text: Increase lantus to 15 units a day. Call list in one week PROGRESS Observed: 03/30/2018 Status: COMPLETED Source: [place] 3:34 PM [facility] REPOSITORY HNO ID: [id number] Author: Melvina Emanuel) Sung Service: (none) Author [...] daily at bedtime. Insulin Humalog Sliding Scale Social Service Worker plan for next outreach: Will follow up one week Signature Melvina Almaraz RN March 30, 2018 CNPTOUTREACH Observed: 03/30/2018 Status: COMPLETED Source: [place] 12:00 AM [facility] RE[facility] Patient Outreach (FAMPWS) VICKI HERNANDEZ ([id number]) 1960 F Date Time Provider Department 03/30/18 [...] daily at bedtime. Insulin Humalog Sliding Scale Social Service Worker plan for next outreach: Will follow up [...] she isn't strong enough to get to [place]. Continues to work with PT/OT HH nurse [...] Date Reviewed: 06/08/2017 Reviewed by: Karena Shaikh Children'S Entertainer - Fully Assessed Reason for Visit: Personal Service Workers Hospital Follow Up [6615] Cmt: TCM Call Discharge from SNF 03/18 [...] 03/30/18 PROGRESS Observed: 03/22/2018 Status: COMPLETED Source: [place] 4:32 PM [facility] [place] REPOSITORY HNO ID: [id number] Author: Melvina Emanuel) Sung Service: (none) Author [...] PM PROGRESS Observed: 03/22/2018 Status: COMPLETED Source: [place] 12:04 PM [facility] RE[facility] HNO ID: [id number] Author: Rajesh Holman Service: (none) Author Type: Physician Type: Progress Notes Filed: 03/22/2018 4:34 PM Note Text: Noted. Resume insulin. Call sugars in one week. Do edson at hs PROGRESS Observed: 03/21/2018 Status: COMPLETED Source: [place] 5:26 PM [facility] [place] REPOSITORY HNO ID: [id number] Author: Melvina (Rn) Sung Service: (none) Author [...] name and . SUMMARY: -Pt discharged from [facility] on 03/18. (Admission 02/01) -Follow up appointment on TBD. Appt Dr. Martinez [facility] on 04/07 -Medication review [...] sponges frequently so they won't harbor bacteria [facility] Home Health sending SN, PT and [...] once daily. BRIEF HOSPITAL COURSE: Transferred from [facility] to [facility] on 02/01/18 for Rehab and [...] a dialysis catheter was inserted in the MTJ. She was dialyzed on 12/24 and 12/25. [...] 12/29/17. CNPTOUTREACH Observed: 03/21/2018 Status: COMPLETED Source: [place] 12:00 AM [facility] RE[facility] VICKI HERNANDEZ ([id number]) 1960 F Date Time Provider Department 03/21/18 [...] name and . SUMMARY: -Pt discharged from [facility] on 03/18. (Admission 02/01) -Follow up appointment on TBD. Appt Dr. Martinez [facility] on 04/07 -Medication review [...] sponges frequently so they won't harbor bacteria [facility] Home Health sending SN, PT and [...] once daily. BRIEF HOSPITAL COURSE: Transferred from [facility] to [facility] on 02/01/18 for Rehab and [...] Date Reviewed: 06/08/2017 Reviewed by: Karena Shaikh Children'S Entertainer - Fully Assessed Reason for Visit: Transition [...] More... Obesity, morbid, BMI 50 or higher ([facility]) [E66.01]INVALID FOR* More... Hypertension [I10] INVALID FOR* More... HUNTER (obstructive sleep apnea) [G47.33] INVALID FOR* More... Pulmonary HTN ([facility]) [I27.20] INVALID FOR* More... Atrial fibrillation with RVR ([facility]) [I48.91] INVALID FOR*09/23/2016 More... Heart failure, diastolic, acute ([facility]) [I50.31] INVALID FOR* More... Counseling and coordination of care [Z71.89] INVALID FOR*04/12/2015 More... Monoclonal gammopathy [D47.2] INVALID FOR* Empty sella turcica ([facility]) [E23.6] INVALID FOR* More... Uncontrolled type 2 [...] on file. Cosign accepted by RAJESH HOLMAN MD[[id number]] on 11/29/2017 3:49 PM warfarin (COUMADIN) 10 mg tablet 30 t* 11 11/29/2017 03/22/2018 Class: Med Update Simg MWF and 11mg other days or as directed Disc: Reason for discontinue is not on file. Cosign accepted by RAJESH HOLMAN MD[[id number]] on 11/29/2017 3:49 PM metFORMIN (GLUCOPHAGE) 500 [...] on file. Cosign accepted by RAJESH HOLMAN MD[[id number]] on 06/28/2017 6:30 PM albuterol HFA (PROAIR [...] 03/22/18 PROGRESS Observed: 03/18/2018 Status: COMPLETED Source: [place] 2:50 PM [facility] [place] REPOSITORY HNO ID: [id number] Author: Rajesh Holman Service: (none) Author Type: Physician Type: Progress Notes Filed: 03/18/2018 4:17 PM Note Text: ok PROGRESS Observed: 03/18/2018 Status: COMPLETED Source: [place] 2:17 PM [facility] [place] REPOSITORY HNO ID: [id number] Author: Melvina Emanuel) Sung Service: (none) Author Type: Registered Nurse Type: Progress Notes Filed: 03/18/2018 2:19 PM Note Text: PRIMARY CARE COORDINATION QUICK NOTE Provider Action/FYI Will you sign [facility] Home Health orders for SN, PT and OT? Patient identified by name and date . TC from [place]andy at [facility], pt is being discharged from [facility] today. Asking if PCP will sign orders for group home, PT and OT. States she thinks they will also be getting some dressing change orders for pt's legs and will need to teach a family member dsg changes. Melvina Almaraz RN PROGRESS Observed: 03/17/2018 Status: COMPLETED Source: [place] 12:26 PM [facility] REPOSITORY HNO ID: [id number] Author: Melvina Emanuel) Sung Service: (none) Author Type: Registered Nurse Type: Progress Notes Filed: 03/17/2018 12:26 PM Note Text: Noted. Will call for TCM on 03/21 Melvina Almaraz RN March 17, 2018 12:26 PM PROGRESS Observed: 03/16/2018 Status: COMPLETED Source: [place] 9:18 AM [facility] REPOSITORY HNO ID: [id number] Author: Lizzie Springer Cma Service: (none) Author Type: (none) Type: Progress Notes Filed: 03/18/2018 4:17 PM Note Text: TRANSITION CARE MANAGEMENT (TCM) DISCHARGE FROM POST ACUTE FACILITY POST ACUTE TRANSFER SUMMARY: - Spoke to: Erin CELIS at [facility]) - Pt will be discharged Home on 03/18/18. - Records requested (discharge summary from SNF: discharge medication list discharge instructionslabs and imaging). PROGRESS Observed: 03/16/2018 Status: COMPLETED Source: [place] 9:17 AM [facility] REPOSITORY HNO ID: [id number] Author: Lizzie Springer Cma Service: (none) Author Type: (none) Type: Progress Notes Filed: 03/16/2018 9:19 AM Note Text: I spoke with Erin and she states Vicki will be discharged this Wednesday03/18/18. NATHANAEL Observed: 03/16/2018 Status: COMPLETED Source: [place] 12:00 AM [facility] RE[facility] Patient Outreach (INTMWS) HERNANDEZVICKI ([id number]) 1960 F Date Time Provider Department 03/16/18 MELVINA ALMARAZ (RN) INTMWS During your visit today, we recorded the following information about you: Lizzie Springer [facility] 03/18/2018 4:17 PM Signed TRANSITION CARE MANAGEMENT (TCM) DISCHARGE FROM POST ACUTE FACILITY POST ACUTE TRANSFER SUMMARY: - Spoke to: Erin (MEÑO at [facility]) - Pt will be discharged Home on 03/18/18. - Records requested (discharge summary from SNF: discharge medication list discharge instructionslabs and imaging). Melvina Almaraz RN 03/17/2018 12:26 PM Signed Noted. Will call for TCM on 03/21 Melvina Almaraz RN March 17, 2018 12:26 PM Melvina Almaraz RN 03/18/2018 2:19 PM Signed PRIMARY CARE COORDINATION QUICK NOTE Provider Action/FYI Will you sign [facility] Home Health orders for SN, PT and OT? Patient identified by name and date . ANUPAM from [place] at [facility] HH, pt is being discharged from [facility] today. Asking if PCP will sign orders for group home, PT and OT. States she thinks they [...] Date Reviewed: 06/08/2017 Reviewed by: Karena Shaikh Children'S Entertainer - Fully Assessed Reason for Visit: Transition [...] 03/18/18 PROGRESS Observed: 03/10/2018 Status: COMPLETED Source: [place] 9:05 AM [facility] HNO ID: [id number] Author: Lizzie Springer Cma Service: (none) Author Type: (none) Type: Progress Notes Filed: 03/10/2018 9:10 AM Note Text: I called and spoke with Erin who states Vicki is recovering nicely and making progress. She's wanting to be discharged next Wednesday. workers compensation claims analyst plans on meeting with Vicki today to discuss this further. I will call back in the middle of next week and see if discharge is in place. PROGRESS Observed: 03/02/2018 Status: COMPLETED Source: [place] 11:05 AM [facility] HNO ID: [id number] Author: Lizzie Springer Cma Service: (none) Author [...] now. PROGRESS Observed: 03/02/2018 Status: COMPLETED Source: [place] 10:28 AM [facility] HNO ID: [id number] Author: Lizzie Springer Cma Service: (none) Author Type: (none) Type: Progress Notes Filed: 03/02/2018 10:39 AM Note Text: I spoke with Erin, but she was in the middle of something and needed to call me back. I gave her my direct number and she will return the call when able. PROGRESS Observed: 02/24/2018 Status: COMPLETED Source: [place] 9:01 AM [facility] HNO ID: [id number] Author: Lizzie Springer Cma Service: (none) Author Type: (none) Type: Progress Notes Filed: 02/24/2018 9:02 AM Note Text: I called to speak with Erin, but she's out the rest of this week. I did get verification that she's still there, but will call back Wednesday (when Erin returns) for any updates. PROGRESS Observed: 02/17/2018 Status: COMPLETED Source: [place] 11:55 AM [facility] HNO ID: [id number] Author: Lizzie Springer Cma Service: (none) Author [...] in. PROGRESS Observed: 02/16/2018 Status: COMPLETED Source: [place] 2:29 PM [facility] HNO ID: [id number] Author: Lizzie Springer [facility] Service: (none) Author Type: (none) Type: Progress Notes Filed: 02/16/2018 2:34 PM Note Text: Left message with product coordinator to have Erin call me with any updates since Erin was in a meeting, unavailable to talk. PROGRESS Observed: 02/10/2018 Status: COMPLETED Source: [place] 11:42 AM [facility] HNO ID: [id number] Author: Melvina Emanuel) Sung Service: (none) Author Type: Registered Nurse Type: Progress Notes Filed: 02/10/2018 11:47 AM Note Text: PRIMARY CARE COORDINATION FOLLOW-UP NOTE Provider Action/FYI Pt is now at [facility] for rehab Has no wound vacs, IVs, PCC line, or antibiotics Wounds healing and working on standing Wt was 411 at [facility], now 339 lbs Instructed pt to inform SW of PCC name and phone number and call during discharge planning Patient identified by name and date of . YES Spoke to patient Summary: TC from patient states she is at [facility] Yesterday she was up in W/C x [...] to portion size of carbs, working with scrip clerk Social Service Worker plan for next outreach: Will follow up during discharge planning Signature Melvina Almaraz RN February 10, 2018 PROGRESS Observed: 02/10/2018 Status: COMPLETED Source: [place] 9:36 AM [facility] HNO ID: [id number] Author: Lizzie Springer [facility] Service: (none) Author Type: (none) Type: Progress Notes Filed: 02/10/2018 9:43 AM Note Text: I called and spoke with SW at [facility] Erin, and she states they just had [...] little. PROGRESS Observed: 02/10/2018 Status: COMPLETED Source: [place] 7:19 AM [facility] HNO ID: [id number] Author: Lizzie Springer [facility] Service: (none) Author Type: (none) Type: Progress Notes Filed: 02/10/2018 7:21 AM Note Text: I received a call back from [facility] on my voicemail and she states that Vicki was discharged from [facility] and transferred to [facility] on 02/01/18. I will call later today to get an update from [facility]. NATHANAEL Observed: 02/10/2018 Status: COMPLETED Source: [place] 12:00 AM [facility] Patient Outreach (FAMPWS) VICKI HERNANDEZ ([id number]) 1960 F Date Time Provider Department 02/10/18 MELVINA ALMARAZ) MARTAPWS During your visit today, we recorded the following information about you: Melvina Almaraz RN 02/10/2018 11:47 AM Signed PRIMARY CARE COORDINATION FOLLOW-UP NOTE Provider Action/FYI Pt is now at [facility] for rehab Has no wound vacs, IVs, PCC line, or antibiotics Wounds healing and working on standing Wt was 411 at [facility], now 339 lbs Instructed pt to inform SW of PCC name and phone number and call during discharge planning Patient identified by name and date of . YES Spoke to patient Summary: TC from patient states she is at [facility] Yesterday she was up in W/C x [...] to portion size of carbs, working with scrip clerk Social Service Worker plan for next outreach: Will follow up [...] Date Reviewed: 06/08/2017 Reviewed by: Karena Shaikh Children'S Entertainer - Fully Assessed Reason for Visit: Transition [...] 02/10/18 PROGRESS Observed: 02/09/2018 Status: COMPLETED Source: [place] 8:22 AM [facility] HNO ID: [id number] Author: Lizzie Springer Cma Service: (none) Author Type: (none) Type: Progress Notes Filed: 02/09/2018 8:25 AM Note Text: Transferred to [facility], Elissa, left detailed msg with my direct number for her to return call if any update on discharge planning. PROGRESS Observed: 02/02/2018 Status: COMPLETED Source: [place] 1:49 PM [facility] HNO ID: [id number] Author: Melvina Emanuel) Sung Service: (none) Author Type: Registered Nurse Type: Progress Notes Filed: 02/02/2018 2:00 PM Note Text: PRIMARY CARE COORDINATION QUICK NOTE Provider Action/FYI FYI PHMA will monitor until discharge from SNF Patient may go to SNF after LTAC Patient identified by name and date . Patient transferred from [facility] to [facility] on 12/29 Hospital diagnoses: DEANGELO with oliguria requiring hemodialysis Severe Bradycardia secondary to Dig Toxicity Vancomycin Toxicity Acute on chronic anemia Acute on chronic diastolic CHF Abscess Of left lower extremity Abscess of right lower extremity Cellulitis of roght leg MRSA infection CNPTOUTREACH Observed: 02/02/2018 Status: COMPLETED Source: [place] 12:00 AM [facility] Patient Outreach (FAMPWS) VICKI HERNANDEZ ([id number]) 1960 F Date Time Provider Department 02/02/18 MELVINA ALMARAZ (RN) DEANNAWS During your visit today, we recorded the following information about you: Melvina Almaraz RN 02/02/2018 2:00 PM Signed PRIMARY CARE COORDINATION QUICK NOTE Provider Action/TAHIRA HOFFMANN PHMA will monitor until discharge from SNF Patient may go to SNF after LTAC Patient identified by name and date . Patient transferred from [facility] to [facility] on 12/29 Hospital diagnoses: DEANGELO with [...] she states that Vicki was discharged from [facility] and transferred to [facility] on 02/01/18. I will call later today to get an update from [facility]. Lizzie Springer [facility] 02/10/2018 9:43 AM Addendum I called and spoke with MEÑO at [facility], Erin, and she states they just had [...] getting better little by little. Lizzie Nick [facility] 02/16/2018 2:34 PM Signed Left message with product coordinator to have Erin call me with any updates since Erin was in a meeting, unavailable to talk. Lizzie Nick [facility] 02/22/2018 11:51 AM Addendum I [...] next week to check in. Lizzie Nick [facility] 02/24/2018 9:02 AM Signed I called to speak with Erin, but she's out the rest of this week. I did get verification that she's still there, but will call back Wednesday (when Erin returns) for any updates. Lizzie Nick [facility] 03/02/2018 10:39 AM Signed I spoke with Erin, but she was in the middle of something and needed to call me back. I gave her my direct number and she will return the call when able. Lizzie Springer [facility] 03/02/2018 11:11 AM Addendum Erin returned my call and left a message on my voicemail. She states Vicki is making good progress and they're currently in the process of recerting her through insurance since she's showing progress. No active discharge plans as of right now. Lizzie Springer [facility] 03/10/2018 9:10 AM Signed I called and spoke with Erin who states Vicki is recovering nicely and making progress. She's wanting to be discharged next Wednesday. workers compensation claims analyst plans on meeting with Vicki today to discuss this further. I will call back in the middle of next week and see if discharge is in place. Lizzie Springer [facility] 03/16/2018 9:19 AM Signed I [...] Date Reviewed: 06/08/2017 Reviewed by: Karena Shaikh [facility] - Fully Assessed Reason for [...] More... Obesity, morbid, BMI 50 or higher ([facility]) [E66.01]INVALID FOR* More... Hypertension [I10] INVALID FOR* More... HUNTER (obstructive sleep apnea) [G47.33] INVALID FOR* More... Pulmonary HTN (HCC) [I27.20] INVALID FOR* More... Atrial fibrillation with RVR ([facility]) [I48.91] INVALID FOR*09/23/2016 More... Heart failure, diastolic, acute ([facility]) [I50.31] INVALID FOR* More... Counseling and coordination of care [Z71.89] INVALID FOR*04/12/2015 More... Monoclonal gammopathy [D47.2] INVALID FOR* Empty sella turcica (HCC) [E23.6] INVALID FOR* More... Uncontrolled type 2 diabetes mellitus without c*INVALID FOR*09/23/2016 Encounter Status:Closed by MELVINA ALMARAZ on 02/02/18 DISCH.SUM Observed: 02/01/2018 Status: UNK Source: [facility] 9:16 AM [facility] Patient Name: VICKI HERNANDEZ [address] Date of : [address] [place] [id number] Unit Number: [id number] Discharge Summary Patient Status: DIS RCR Attending Doctor: Amadeo Cali MD Service Date: 02/01/18915 Discharge Summary Admit Date Admission Date Time: 12/29/2017 Final Dx/Problem List 1. ASSESSMENT AND PLAN Chief Complaint/HPI wounds legs Reason for Admission Wound care Hospital Course Karen was a 57 years old morbidly obese female who was admitted to [facility] for wound care and medical management. Patient [...] plan was patient to go back to [facility] for skin transplant however due to current need for antibiotics and wound VAC patient got discharged to group home facility for further care. Pertinent Physical Findings [...] Labs/Imaging Lab 72hr (CBC/BMP Fishbone) 01/31/18 0755: Mqu-I-Ohklihxcwwg Pept Cancelled Condition: Improved, Stable Disposition Senior Care Facility Disclaimer This dictation was created using voice recognition software. Phonetic and/or minor grammatical errors may exist. eSign Date and Time Amadeo Cali MD Verified/Reviewed by 03/21/18 0913 PROG.NOTE Observed: 01/31/2018 Status: UNK Source: [facility] 6:40 AM [facility] Patient Name: VICKI HERNANDEZ [address] Date of : [address] [place] [address] Unit Number: [id number] Progress Note-Physician Patient Status: REG RCR Attending [...] scheduled to be discharged tomorrow morning to group home facility. Patient is aware and is in agreement with the plan. Disclaimer This dictation was created using voice recognition software. Phonetic and/or minor grammatical errors may exist. eSign Date and Time Amadeo Cali MD Verified/Reviewed by 01/31/18 1128 PROG.NOTE Observed: 01/30/2018 Status: UNK Source: [facility] 7:26 AM [facility] Patient Name: VICKI HERNANDEZ0 [address] Date of : [address] [place] [address] Unit Number: [id number] Progress Note-Physician Patient Status: REG RCR Attending [...] Plan She is planned to transfer to [facility] on wednesday. She remains stable. Portions of this section were transcribed by LINDA SAINZ on 01/30/18 at 0726 Disclaimer This dictation was created using voice recognition software. Phonetic and/or minor grammatical errors may exist. eSign Date and Time Jesus Smith MD Verified/Reviewed by 01/31/18 1443 PROG.NOTE Observed: 01/29/2018 Status: UNK Source: [facility] 7:27 AM [facility] Patient Name: VICKI HERNANDEZ [address] Date of : [address] [place] [address] Unit Number: [id number] Progress Note-Physician Patient Status: REG RCR Attending [...] is being evaluated for transfer to [place] her IV abx and wound care there. Portions of this section were transcribed by LINDA SAINZ on 01/29/18 at 2334 Disclaimer This dictation was created using voice recognition software. Phonetic and/or minor grammatical errors may exist. eSign Date and Time Jesus Smith MD Verified/Reviewed by 01/29/18 2407 PROG.NOTE Observed: 01/28/2018 Status: UNK Source: [facility] 9:00 AM [facility] Patient Name: VICKI HERNANDEZ [address] Date of : [address] [place] [address] Unit Number: [id number] Progress Note-Physician Patient Status: REG RCR Attending [...] scheduled to be discharged Wednesday morning to group home facility. Case discussed with the nursing staff. Disclaimer This dictation was created using voice recognition software. Phonetic and/or minor grammatical errors may exist. eSign Date and Time Amadeo Cali MD Verified/Reviewed by 01/28/18900 PROG.NOTE Observed: 01/27/2018 Status: UNK Source: [facility] 8:21 AM [facility] Patient Name: VICKI HERNANDEZ [address] Date of : [address] [place] [address] Unit Number: [id number] Progress Note-Physician Patient Status: REG RCR Attending [...] morbidly obese female who is admitted to [facility] for further wound care and management of [...] 0849 PROG.NOTE Observed: 01/26/2018 Status: UNK Source: [facility] 8:19 AM [facility] Patient Name: VICKI HERNANDEZ [address] Date of : 56 [place], [place] [address] Unit Number: [id number] Progress Note-Physician Patient Status: REG RCR Attending [...] morbidly obese female who is admitted to [facility] for further wound care and management of [...] 01/27/18819 PROG.NOTE Observed: 01/25/2018 Status: UNK Source: [facility] 8:23 AM [facility] Patient Name: VICKI HERNANDEZ [address] Date of : [address] [place] [address] Unit Number: [id number] Progress Note-Physician Patient Status: REG RCR Attending [...] active discharge. Diagnostic Data: Lab 24hr (CBC/BMP [facility]) 01/25/18 0426: INR 1.1, PT Normal Mean [...] 0825 PT Collected: 01/25/2018 Status: F Source: [facility] 4:26 AM [facility] REPOSITORY Order Comment: Johnson: M TYPE CODE TESTS RESULT OUT OF RANGE REFERENCE UNITS LAB L300.35581 0.9-1.1 Normal INR 1.1 Result Comment: Recommended PT INR therapeutic range for assisted and prophylactic therapy is 2.0 - 3.0. For heart valve and shunt patients the range is 2.5 - 3.5. LAB L300.99670 9.4-12.0 SECONDS High 12.2 PTS Performed By: #### L300.73547 #### [facility] [address] [place] [address] PROGRESS Observed: 01/24/2018 Status: COMPLETED Source: [place] 3:00 PM [facility] REPOS[facility] HNO ID: [id number] Author: Melvina (Evgeny) Sung Service: (none) Author Type: Registered Nurse Type: Progress Notes Filed: 01/24/2018 3:38 PM Note Text: PRIMARY CARE COORDINATION FOLLOW-UP NOTE Provider Action/FYI Pt still in [facility] Still has PICC and IV ATBs and [address] Patient identified by name and date of . YES Spoke to patient Concerns: TC to patient, states she is still inpatient at [facility]. She just had two of her five wound drains with suction removed. Still has 3 wound vacs Continues with PICC line and IV antibiotics. States tomorrow she will begin to stand by the edge of the bed. Social Service Worker plan for next outreach: Will follow up during discharge planning Signature Melvina Almaraz RN January 24, 2018 PROG.NOTE Observed: 01/24/2018 Status: UNK Source: [facility] 8:12 AM [facility] REPOSITORY [facility] Patient Name: VICKI HERNANDEZ [address] [facility] Date of : [address] [place] [address] Unit Number: [id number] Progress Note-Physician Patient Status: REG RCR Attending [...] active discharge. Diagnostic Data: Lab 24hr (CBC/BMP [facility]) 01/24/18 0412: [Embedded Image Not Available] Anion [...] CBC W/DIFF Collected: 01/24/2018 Status: F Source: [facility] 4:12 AM [facility] REPOSITORY Order Comment: Johnson: M TYPE CODE TESTS RESULT OUT OF RANGE REFERENCE UNITS LAB L200.48411 4.5-11.0 K/CU MM WBC Normal 7.3 LAB L200.19642 3.90-5.30 M/CU MM Low RBC 2.92 LAB L200.46491 11.5-15.5 G/DL Low HGB 8.5 LAB L200.76128 35.0-47.0 % Low HCT 27.0 LAB L200.60154 80.0-99.0 fl MCV Normal 92.5 LAB L200.37654 32.0-36.0 GM/DL Low MCHC 31.5 LAB L200.63841 11-14.5 High RDW 18.0 LAB L200.06338 9.4-12.4 MPV Normal 9.4 LAB L200.97478 150-450 K/CU MM PLT Normal 245 LAB L200.52510 45-75 % NEUTROPHILS Normal % 59.9 LAB L200.34368 Less than 2 % IMMATURE Normal GRAN % 0.4 LAB L200.20730 20-40 % LYMPH % Normal 25.0 LAB L200.21434 2-10 % MONOCYTE % Normal 9.0 LAB L200.17777 0-5 % High EOSINOPHIL % 5.2 LAB L200.71233 0-2 % BASOPHIL % Normal 0.5 LAB L200.50903 2.0-8.3 K/CU MM NEUTROPHIL Normal ABS 4.40 LAB L200.39746 Less than 2 K/CU MM IMMATR GRAN Normal ABS 0.00 LAB L200.41265 0.9-4.4 K/CU MM LYMPH ABS Normal 1.80 LAB L200.31750 0.1-1.1 K/CU MM MONO ABS Normal 0.70 LAB L200.52013 0-0.5 K/CU MM EOS ABS Normal 0.40 LAB L200.24539 0-0.2 K/CU MM BASO ABS Normal 0.00 LAB L200.32530 Less than 1 % NRBC Normal 0.0 Performed By: #### L200.59905 #### [facility] [address] [place] [place] [id number] CMP Collected: 01/24/2018 Status: F Source: [facility] 4:12 AM [facility] REPOSITORY Order Comment: Johnson: TYPE CODE TESTS RESULT OUT OF RANGE REFERENCE UNITS LAB L500.88696 136-145 MMOL/L Normal NA 137 LAB L500.84824 3.5-5.1 MMOL/L Normal K 3.9 LAB L500.90836 98-107 MMOL/L Normal CL 98 LAB L500.64725 21-32 MMOL/L High CO2 33 LAB L500.82820 5-16 MMOL/L Normal AGAP 6 LAB L500.11224 70-100 MG/DL High GLU 139 Result Comment: 70-100- Normal Fasting; 100-125 Impaired Fasting; greater than 126 on more than one result- Diabetes. ADA guidelines. Results may be falsely elevated after the administration of Sulfapyridine. Results may be falsely depressed after the administration of Sulfasalazine. LAB L500.03300 7-26 MG/DL High BUN 32 LAB L500.26766 0.510-0.950 MG/DL High CREAT 1.230 Result Comment: Patients receiving either N-Acetylcysteine (NAC) or Metamizole prior to venipuncture, may have falsely depressed results. LAB L500.29521 15-24 High BUN/CREA 26 LAB L500.17180 6.0-8.5 GM/DL Normal TP 7.7 LAB L500.97623 3.2-5.0 GM/DL Low ALBUMIN 2.6 LAB L500.63053 2.2-4.2 GM/DL High GLOBULIN 5.0 LAB L500.11575 0.8-2.0 Low A/G RATIO 0.5 LAB L500.35796 8.5-10.1 MG/DL Low CALCIUM TOTAL 8.4 LAB L500.32623 0.2-1.0 MG/DL Normal BILI TOTAL 0.6 LAB L500.71657 8-34 U/L Normal SGOT (AST) 29 Result Comment: RESULTS MAY BE FALSELY DEPRESSED AFTER THE ADMINISTRATION OF SULFASALAZINE AND/OR SULFAPYRIDINE. LAB L500.83155 13-61 IU/L Normal SGPT (ALT) 24 Result Comment: RESULTS MAY BE FALSELY DEPRESSED AFTER THE ADMINISTRATION OF SULFASALAZINE AND/OR SULFAPYRIDINE. LAB L500.64557 45-117 U/L Normal ALK PHOS 111 Performed By: #### L500.23874, L500.27661 #### [facility] [address] [place] [address] GFR EST Collected: 01/24/2018 Status: F Source: [facility] 4:12 AM [facility] REPOSITORY Order Comment: Johnson: M TYPE CODE TESTS RESULT OUT OF RANGE REFERENCE UNITS LAB L500.87611 ML/MIN Normal IF non-AFR 45 AMER LAB L500.69474 ML/MIN Normal IF 54 AMER Performed By: #### L500.39342, L500.95174 #### [facility] [address] [place] [address] PT Collected: 01/24/2018 Status: F Source: [facility] 4:12 AM [facility] REPOSITORY Order Comment: Johnson: M TYPE CODE TESTS RESULT OUT OF RANGE REFERENCE UNITS LAB L300.37272 0.9-1.1 High INR 1.2 Result Comment: Recommended PT INR therapeutic range for dockmaster and prophylactic therapy is 2.0 - 3.0. For heart valve and shunt patients the range is 2.5 - 3.5. LAB L300.32975 9.4-12.0 SECONDS High 12.3 PTS Performed By: #### L300.59142 #### [facility] [address] [place] [address] CNPTOUTREACH Observed: 01/24/2018 Status: COMPLETED Source: [place] 12:00 AM [facility] REPOSITORY Patient Outreach (FAMPWS) VICKI HERNANDEZ ([id number]) 1960 F Date Time Provider Department 01/24/18 MELVINA ALMARAZ (RN) MARTAPWS During your visit today, we recorded the following information about you: Melvina Almaraz RN 01/24/2018 3:38 PM Signed PRIMARY CARE COORDINATION FOLLOW-UP NOTE Provider Action/FYI Pt still in [facility] Still has PICC and IV ATBs and [address] Patient identified by name and date of . YES Spoke to patient Concerns: TC to patient, states she is still inpatient at [facility]. She just had two of her five wound drains with suction removed. Still has 3 wound vacs Continues with PICC line and IV antibiotics. States tomorrow she will begin to stand by the edge of the bed. 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 For heart valve and shunt patients the range is 2.5 - 3.5. LAB L300.10903 9.4-12.0 SECONDS High 12.2 PTS Performed By: #### L300.99549 #### [facility] [address] [place] [address] PROG.NOTE Observed: 01/21/2018 Status: UNK Source: [facility] 8:45 AM [facility] Patient Name: VICKI HERNANDEZ [address] [facility] Date of : [address] [place] [address] Unit Number: [id number] Progress Note-Physician Patient Status: REG RCR Attending [...] morbidly obese female who is admitted to [facility] for further wound care and management of [...] 0849 PROG.NOTE Observed: 01/20/2018 Status: UNK Source: [facility] 8:19 AM [facility] Patient Name: VICKI HERNANDEZ [address] Date of : [address] [place] [address] Unit Number: [id number] Progress Note-Physician Patient Status: REG RCR Attending [...] morbidly obese female who is admitted to [facility] for further wound care and [...] 0806 PT Collected: 01/20/2018 Status: F Source: [facility] 4:33 AM [facility] REPOSITORY Order Comment: Johnson: M TYPE CODE TESTS RESULT OUT OF RANGE REFERENCE UNITS LAB L300.03118 0.9-1.1 High INR 1.4 Result Comment: Recommended PT INR therapeutic range for dockmaster and prophylactic therapy is 2.0 - 3.0. For heart valve and shunt patients the range is 2.5 - 3.5. LAB L300.45303 9.4-12.0 SECONDS High 15.2 PTS Performed By: #### L300.17489 #### [facility] [address] [place] [address] PROG.NOTE Observed: 01/19/2018 Status: UNK Source: [facility] 8:41 AM [facility] REPOSITORY [facility] Patient Name: VICKI HERNANDEZ [address] [facility] Date of : [address] [place] [address] Unit Number: [id number] Progress Note-Physician Patient Status: REG RCR Attending [...] active discharge. Diagnostic Data: Lab 24hr (CBC/BMP [facility]) 01/19/18 0451: INR 1.5 H, PT Normal [...] eliquis. She doesn't want to see the white spooler at this point. Risks benefits have been explained to her. Will cancel future INR, d/c coumadin. GI prophylaxis: PPI Anemia: stable. Disclaimer This dictation was created using voice recognition software. Phonetic and/or minor grammatical errors may exist. eSign Date and Time Amadeo Cali MD Verified/Reviewed by 01/19/18 0844 PT Collected: 01/19/2018 Status: F Source: [facility] 4:51 AM [facility] REPOSITORY Order Comment: Johnson: M TYPE CODE TESTS RESULT OUT OF RANGE REFERENCE UNITS LAB L300.36200 0.9-1.1 High INR 1.5 Result Comment: Recommended PT INR therapeutic range for dockmaster and prophylactic therapy is 2.0 - 3.0. For heart valve and shunt patients the range is 2.5 - 3.5. LAB L300.67966 9.4-12.0 SECONDS High 15.8 PTS Performed By: #### L300.30911 #### [facility] [address] [place] [address] PROG.NOTE Observed: 01/18/2018 Status: UNK Source: [facility] 7:52 AM [facility] Patient Name: VICKI HERNANDEZ [address] [facility] Date of : 56 [place] [address] Unit Number: [id number] Progress Note-Physician Patient Status: REG RCR Attending [...] morbidly obese female who is admitted to [facility] for further wound care and [...] 0754 PT Collected: 01/18/2018 Status: F Source: [facility] 4:49 AM [facility] REPOSITORY Order Comment: Johnson: TYPE CODE TESTS RESULT OUT OF RANGE REFERENCE UNITS LAB L300.74664 0.9-1.1 High INR 1.5 Result Comment: Recommended PT INR therapeutic range for dockmaster and prophylactic therapy is 2.0 - 3.0. For heart valve and shunt patients the range is 2.5 - 3.5. LAB L300.41561 9.4-12.0 SECONDS High 16.1 PTS Performed By: #### L300.80834 #### [facility] [address] [place] [address] OPERATIVE REPORT Observed: 01/18/2018 Status: F Source: [place] 2:22 AM [facility] REPOSITORY [facility] Medical Records Department [address] [place] [address] Operative Report 12/09/17 1927 MR#: [id number] Acct: [id number] Name: VICKI HERNANDEZ Rep #: [id number] : 1960 57 From: Alejo Martinez MD PCP: Rajesh Holman MD Status: DIS IN Y Location: MS3 AE511-0 Report of Operation Date of Procedure: 12/09/17 [...] - 2 x 2 x 1 cm. 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 Type of Anesthesia:: General Specimen's removed: [...] Yes Code Visit Surgery Charges CPT - 23005 ICD-10 - L02.415, E11.622, A49.02, E66.01 12280-87 L02.415, E11.622, A49.02, E66.01 86494-46 L02.416, E11.622, A49.02, E66.01 11413-33 L02.415, E11.622, A49.02, E66.01 27496-53 L02.416, E11.622, A49.02, E66.01 77232-54 L02.415, L02.416, E11.622, A49.02, E66.01 10965 (5 units) L02.415, L02.416, E11.622, A49.02, E66.01 01/18/18 0222 <Electronically signed by Alejo Martinez MD> Date Alejo Martinez MD CC: Thomas Carrasco; Alejo Martinez MD; Irasema Ortiz MD; Boy Haines MD; Rajesh Holman MD; [facility] Signed PROG.NOTE Observed: 01/17/2018 Status: UNK Source: [facility] 12:19 PM [facility] REPOSITORY [facility] Patient Name: VICKI HERNANDEZ [address] Date of : 56 [place] [id number] Unit Number: [id number] Progress Note-Physician Patient Status: REG RCR Attending [...] of healing. Diagnostic Data: Lab 24hr (CBC/BMP [facility]) 01/17/18 0516: [Embedded Image Not Available] Anion [...] 0737 CBC Collected: 01/17/2018 Status: F Source: [facility] 5:16 AM [facility] RE[facility]IT[facility] Order Comment: Johnson: M TYPE CODE TESTS RESULT OUT OF RANGE REFERENCE UNITS LAB L200.04472 4.5-11.0 K/CU MM Normal WBC 6.0 LAB L200.38750 3.90-5.30 M/CU MM Low RBC 2.74 LAB L200.88584 11.5-15.5 G/DL Low HGB 7.8 LAB L200.15049 35.0-47.0 % Low HCT 25.3 LAB L200.45213 80.0-99.0 fl Normal MCV 92.3 LAB L200.78300 32.0-36.0 GM/DL Low MCHC 30.8 LAB L200.89182 11-14.5 High RDW 18.4 LAB L200.81411 9.4-12.4 Normal MPV 9.4 LAB L200.71077 150-450 K/CU MM Normal PLT 286 LAB L200.17484 Less than 1 % Normal NRBC 0.0 Performed By: #### L200.90074 #### [facility] [place] [address] PT Collected: 01/17/2018 Status: F Source: [facility] 5:16 AM [facility]POS[facility] Order Comment: Johnson: M TYPE CODE TESTS RESULT OUT OF RANGE REFERENCE UNITS LAB L300.82905 0.9-1.1 High INR 1.5 Result Comment: Recommended PT INR therapeutic range for dockmaster and prophylactic therapy is 2.0 - 3.0. For heart valve and shunt patients the range is 2.5 - 3.5. LAB L300.59942 9.4-12.0 SECONDS High 15.9 PTS Performed By: #### L300.42561 #### [facility] [address] [place] [address] BMP Collected: 01/17/2018 Status: F Source: [place] [address]:16 AM [facility] REPOSITORY Order Comment: Johnson: M TYPE CODE TESTS RESULT OUT OF RANGE REFERENCE UNITS LAB L500.76104 136-145 MMOL/L Normal NA 139 LAB L500.38420 3.5-5.1 MMOL/L Normal K 3.8 LAB L500.53780 98-107 MMOL/L Normal CL 98 LAB L500.90034 21-32 MMOL/L High CO2 35 LAB L500.85974 5-16 MMOL/L Normal AGAP 6 LAB L500.85479 70-100 MG/DL High GLU 113 Result Comment: 70-100- Normal Fasting; 100-125 Impaired Fasting; greater than 126 on more than one result- Diabetes. ADA guidelines. Results may be falsely elevated after the administration of Sulfapyridine. Results may be falsely depressed after the administration of Sulfasalazine. LAB L500.58267 7-26 MG/DL High BUN 35 LAB L500.88884 0.510-0.950 MG/DL High CREAT 1.620 Result Comment: Patients receiving either N-Acetylcysteine (NAC) or Metamizole prior to venipuncture, may have falsely depressed results. LAB L500.82172 15-24 Normal BUN/CREA 22 LAB L500.79075 8.5-10.1 MG/DL Normal CALCIUM TOTAL 9.0 Performed By: #### L500.83547, L500.69240 #### [facility] [address] [place] [address] GFR EST Collected: 01/17/2018 Status: F Source: [facility] 5:16 AM [facility] REPOSITORY Order Comment: Johnson: M TYPE CODE TESTS RESULT OUT OF RANGE REFERENCE UNITS LAB L500.41138 ML/MIN Normal IF non-AFR 33 AMER LAB L500.89059 ML/MIN Normal IF 39 AMER Performed By: #### L500.86345, L500.06285 #### [facility] [address] [place] [address] PROG.NOTE Observed: 01/16/2018 Status: UNK Source: [facility] 2:24 PM [facility] REPOSITORY [facility] Patient Name: VICKI HERNANDEZ [address] [place] [address] Date of : 56 [address] [place] [address] Unit Number: [id number] Progress Note-Physician Patient Status: REG RCR Attending [...] 1425 CBC Collected: 01/16/2018 Status: F Source: [facility] 5:32 AM [facility] RE[facility] Order Comment: Johnson: M TYPE CODE TESTS RESULT OUT OF RANGE REFERENCE UNITS LAB L200.48737 4.5-11.0 K/CU MM Normal WBC 6.5 LAB L200.12712 3.90-5.30 M/CU MM Low RBC 2.78 LAB L200.99170 11.5-15.5 G/DL Low HGB 8.0 LAB L200.55722 35.0-47.0 % Low HCT 25.7 LAB L200.96864 80.0-99.0 fl Normal MCV 92.4 LAB L200.95349 32.0-36.0 GM/DL Low MCHC 31.1 LAB L200.99707 11-14.5 High RDW 18.3 LAB L200.90804 9.4-12.4 Normal MPV 9.4 LAB L200.46201 150-450 K/CU MM Normal PLT 281 LAB L200.62497 Less than 1 % Normal NRBC 0.0 Performed By: #### L200.82482 #### [facility] [address] [place] [address] BMP Collected: 01/16/2018 Status: F Source: [facility] 5:32 AM [facility] REPOS[facility] Order Comment: Johnson: M TYPE CODE TESTS RESULT OUT OF RANGE REFERENCE UNITS LAB L500.53850 136-145 MMOL/L Normal NA 138 LAB L500.72634 3.5-5.1 MMOL/L Normal K 3.8 LAB L500.56069 98-107 MMOL/L Normal CL 98 LAB L500.49709 21-32 MMOL/L High CO2 34 LAB L500.11644 5-16 MMOL/L Normal AGAP 6 LAB L500.92703 70-100 MG/DL High GLU 129 Result Comment: 70-100- Normal Fasting; 100-125 Impaired Fasting; greater than 126 on more than one result- Diabetes. ADA guidelines. Results may be falsely elevated after the administration of Sulfapyridine. Results may be falsely depressed after the administration of Sulfasalazine. LAB L500.21612 7-26 MG/DL High BUN 36 LAB L500.65394 0.510-0.950 MG/DL High CREAT 1.880 Result Comment: Patients receiving either N-Acetylcysteine (NAC) or Metamizole prior to venipuncture, may have falsely depressed results. LAB L500.15700 15-24 Normal BUN/CREA 19 LAB L500.40771 8.5-10.1 MG/DL Normal CALCIUM TOTAL 8.6 Performed By: #### L500.89558, L500.48741, L500.52965 #### [facility] [address] [place] [address] GFR EST Collected: 01/16/2018 Status: F Source: [facility] 5:32 AM [facility] REPOSITORY Order Comment: Johnson: TYPE CODE TESTS RESULT OUT OF RANGE REFERENCE UNITS LAB L500.78921 ML/MIN Normal IF non-AFR 27 AMER LAB L500.46937 ML/MIN Normal IF 33 AMER Performed By: #### L500.99248, L500.74845, L500.84623 #### [facility] [address] [place] [address] IRON PANEL Collected: 01/16/2018 Status: F Source: [facility] 5:32 AM [facility] REPOSITORY Order Comment: Johnson: M TYPE CODE TESTS RESULT OUT OF RANGE REFERENCE UNITS LAB L500.02842 50-170 UG/DL Low IRON 41 Result Comment: Patients treated with metal-binding drugs (e.g.deferoxamine) may have depressed iron values, as chelated iron may not properly react in the Siemens iron assay. LAB L500.63484 221-481 UG/DL Normal TIBC 241 LAB L500.66652 22-44 % Low IRON SAT 17 Performed By: #### L500.56322, L500.78306, L500.33136 #### [facility] [address] [place] [address] PT Collected: 01/16/2018 Status: F Source: [facility] 5:32 AM [facility] REPOSITORY Order Comment: Johnson: M TYPE CODE TESTS RESULT OUT OF RANGE REFERENCE UNITS LAB L300.47581 0.9-1.1 High INR 1.5 Result Comment: Recommended PT INR therapeutic range for assisted and prophylactic therapy is 2.0 - 3.0. For heart valve and shunt patients the range is 2.5 - 3.5. LAB L300.94842 9.4-12.0 SECONDS High 15.6 PTS Performed By: #### L300.62197 #### [facility] [address] [place] [address] PROG.NOTE Observed: 01/15/2018 Status: UNK Source: [facility] 12:31 PM [facility] REPOSITORY [facility] Patient Name: VICKI HERNANDEZ [address] [facility] Date of : 56 [place] [address] Unit Number: [id number] Progress Note-Physician Patient Status: REG RCR Attending [...] 1439 PT Collected: 01/15/2018 Status: F Source: [facility] 6:55 AM [facility] REPOSITORY Order Comment: Johnson: M TYPE CODE TESTS RESULT OUT OF RANGE REFERENCE UNITS LAB L300.22881 0.9-1.1 High INR 1.4 Result Comment: Recommended PT INR therapeutic range for assisted and prophylactic therapy is 2.0 - 3.0. For heart valve and shunt patients the range is 2.5 - 3.5. LAB L300.82391 9.4-12.0 SECONDS High 14.7 PTS Performed By: #### L300.23420 #### [facility] [place] [address] BMP Collected: 01/15/2018 Status: F Source: [facility] 6:55 AM [facility] REPOSITORY Order Comment: Johnson: M TYPE CODE TESTS RESULT OUT OF RANGE REFERENCE UNITS LAB L500.86986 136-145 MMOL/L Normal NA 140 LAB L500.54424 3.5-5.1 MMOL/L Normal K 3.9 LAB L500.75364 98-107 MMOL/L Normal CL 98 LAB L500.67139 21-32 MMOL/L High CO2 36 LAB L500.78528 5-16 MMOL/L Normal AGAP 6 LAB L500.05763 70-100 MG/DL High GLU 121 Result Comment: 70-100- Normal Fasting; 100-125 Impaired Fasting; greater than 126 on more than one result- Diabetes. ADA guidelines. Results may be falsely elevated after the administration of Sulfapyridine. Results may be falsely depressed after the administration of Sulfasalazine. LAB L500.79390 7-26 MG/DL High BUN 37 LAB L500.50375 0.510-0.950 MG/DL High CREAT 1.900 Result Comment: Patients receiving either N-Acetylcysteine (NAC) or Metamizole prior to venipuncture, may have falsely depressed results. LAB L500.25139 15-24 Normal BUN/CREA 19 LAB L500.98361 8.5-10.1 MG/DL Normal CALCIUM TOTAL 8.5 Performed By: #### L500.59211, L500.47401 #### [facility] [address] [place] [address] GFR EST Collected: 01/15/2018 Status: F Source: [facility] 6:55 AM [facility] REPOSITORY Order Comment: Johnson: M TYPE CODE TESTS RESULT OUT OF RANGE REFERENCE UNITS LAB L500.52792 ML/MIN Normal IF non-AFR 27 AMER LAB L500.64967 ML/MIN Normal IF 33 AMER Performed By: #### L500.00426, L500.93823 #### [facility] [address] [place] [address] PROG.NOTE Observed: 01/14/2018 Status: UNK Source: [facility] 8:22 AM [facility] REPOSITORY [facility] Patient Name: VICKI HERNANDEZ [address] [facility] Date of : 56 [place] [address] Unit Number: [id number] Progress Note-Physician Patient Status: REG RCR Attending [...] morbidly obese female who is admitted to [facility] for further wound care and [...] 1120 CBC Collected: 01/14/2018 Status: F Source: [facility] 4:34 AM [facility] REPOSITORY Order Comment: Johnson: M TYPE CODE TESTS RESULT OUT OF RANGE REFERENCE UNITS LAB L200.34834 4.5-11.0 K/CU MM Normal WBC 5.7 LAB L200.19176 3.90-5.30 M/CU MM Low RBC 2.86 LAB L200.92333 11.5-15.5 G/DL Low HGB 8.0 LAB L200.63503 35.0-47.0 % Low HCT 26.4 LAB L200.17506 80.0-99.0 fl Normal MCV 92.3 LAB L200.45830 32.0-36.0 GM/DL Low MCHC 30.3 LAB L200.60268 11-14.5 High RDW 18.4 LAB L200.79320 9.4-12.4 Low MPV 9.2 LAB L200.51574 150-450 K/CU MM Normal PLT 287 LAB L200.20275 Less than 1 % Normal NRBC 0.0 Performed By: #### L200.59616 #### [facility] [address] [place] [address] PT Collected: 01/14/2018 Status: F Source: [facility] 4:34 AM [facility] REPOSITORY Order Comment: Johnson: M TYPE CODE TESTS RESULT OUT OF RANGE REFERENCE UNITS LAB L300.72445 0.9-1.1 High INR 1.6 Result Comment: Recommended PT INR therapeutic range for dockmaster and prophylactic therapy is 2.0 - 3.0. For heart valve and shunt patients the range is 2.5 - 3.5. LAB L300.02367 9.4-12.0 SECONDS High 17.8 PTS Performed By: #### L300.45053 #### [facility] [address] [place] [address] BMP Collected: 01/14/2018 Status: F Source: [facility] 4:34 AM [facility] REPOSITORY Order Comment: Johnson: M TYPE CODE TESTS RESULT OUT OF RANGE REFERENCE UNITS LAB L500.66416 136-145 MMOL/L Normal NA 139 LAB L500.42792 3.5-5.1 MMOL/L Low K 3.4 LAB L500.16643 98-107 MMOL/L Low CL 96 LAB L500.18330 21-32 MMOL/L High CO2 36 LAB L500.77595 5-16 MMOL/L Normal AGAP 8 LAB L500.30165 70-100 MG/DL High GLU 119 Result Comment: 70-100- Normal Fasting; 100-125 Impaired Fasting; greater than 126 on more than one result- Diabetes. ADA guidelines. Results may be falsely elevated after the administration of Sulfapyridine. Results may be falsely depressed after the administration of Sulfasalazine. LAB L500.07651 7-26 MG/DL High BUN 34 LAB L500.57659 0.510-0.950 MG/DL High CREAT 1.790 Result Comment: Patients receiving either N-Acetylcysteine (NAC) or Metamizole prior to venipuncture, may have falsely depressed results. LAB L500.05719 15-24 Normal BUN/CREA 19 LAB L500.86686 8.5-10.1 MG/DL Normal CALCIUM TOTAL 8.8 Performed By: #### L500.85067, L500.23361 #### [facility] [address] [place] [address] GFR EST Collected: 01/14/2018 Status: F Source: [facility] 4:34 AM [facility] REPOSITORY Order Comment: Johnson: TYPE CODE TESTS RESULT OUT OF RANGE REFERENCE UNITS LAB L500.90544 ML/MIN Normal IF non-AFR 29 AMER LAB L500.83445 ML/MIN Normal IF 35 AMER Performed By: #### L500.96034, L500.47970 #### [facility] [address] [place] [address] PROG.NOTE Observed: 01/13/2018 Status: UNK Source: [facility] 4:46 PM [facility] REPOSITORY [facility] Patient Name: VICKI HERNANDEZ [address] [facility] Date of : 56 [place] [address] Unit Number: [id number] Progress Note-Physician Patient Status: REG RCR Attending [...] Reduced discharge. Diagnostic Data: Lab 24hr (CBC/BMP [facility]) 01/13/18 0441: Iron 40 L, TIBC 232, [...] and Time VirajAmadeo MD Verified/Reviewed by 01/13/18 6647 PT Collected: 01/13/2018 Status: F Source: [facility] 4:41 AM [facility] REPOSIT[facility] Order Comment: Johnson: M TYPE CODE TESTS RESULT OUT OF RANGE REFERENCE UNITS LAB L300.95981 0.9-1.1 High INR 2.3 Result Comment: Recommended PT INR therapeutic range for assisted and prophylactic therapy is 2.0 - 3.0. For heart valve and shunt patients the range is 2.5 - 3.5. LAB L300.82129 9.4-12.0 SECONDS High 25.5 PTS Performed By: #### L300.85705 #### [facility] [address] [place] [address] IRON PANEL Collected: 01/13/2018 Status: F Source: [facility] 4:41 AM [facility] REPOSITORY Order Comment: Johnson: M TYPE CODE TESTS RESULT OUT OF RANGE REFERENCE UNITS LAB L500.12097 50-170 UG/DL Low IRON 40 Result Comment: Patients treated with metal-binding drugs (e.g.deferoxamine) may have depressed iron values, as chelated iron may not properly react in the Siemens iron assay. LAB L500.60328 221-481 UG/DL Normal TIBC 232 LAB L500.53728 22-44 % Low IRON SAT 17 Performed By: #### L500.43082 #### [facility] [address] [place] [address] PROG.NOTE Observed: 01/12/2018 Status: UNK Source: [facility] 9:04 AM [facility] REPOSITORY [facility] Patient Name: VICKI HERNANDEZ [address] [facility] Date of : 56 [place] [address] Unit Number: [id number] Progress Note-Physician Patient Status: REG RCR Attending [...] morbidly obese female who is admitted to [facility] for further wound care and [...] 0816 PT Collected: 01/12/2018 Status: F Source: [facility] 4:35 AM [facility] REPOSITORY Order Comment: Johnson: M TYPE CODE TESTS RESULT OUT OF RANGE REFERENCE UNITS LAB L300.11054 0.9-1.1 High INR 2.3 Result Comment: Recommended PT INR therapeutic range for assisted and prophylactic therapy is 2.0 - 3.0. For heart valve and shunt patients the range is 2.5 - 3.5. LAB L300.79745 9.4-12.0 SECONDS High 25.3 PTS Performed By: #### L300.42031 #### [facility] [address] [place] [id number] BMP Collected: 01/12/2018 Status: F Source: [facility] 4:35 AM [facility] REPOSITORY Order Comment: Johnson: M TYPE CODE TESTS RESULT OUT OF RANGE REFERENCE UNITS LAB L500.30269 136-145 MMOL/L Normal NA 142 LAB L500.56862 3.5-5.1 MMOL/L Normal K 3.5 LAB L500.41819 98-107 MMOL/L Normal CL 98 LAB L500.51640 21-32 MMOL/L High CO2 36 LAB L500.93740 5-16 MMOL/L Normal AGAP 8 LAB L500.52198 70-100 MG/DL High GLU 127 Result Comment: 70-100- Normal Fasting; 100-125 Impaired Fasting; greater than 126 on more than one result- Diabetes. ADA guidelines. Results may be falsely elevated after the administration of Sulfapyridine. Results may be falsely depressed after the administration of Sulfasalazine. LAB L500.23204 7-26 MG/DL High BUN 28 LAB L500.58727 0.510-0.950 MG/DL High CREAT 1.740 Result Comment: Patients receiving either N-Acetylcysteine (NAC) or Metamizole prior to venipuncture, may have falsely depressed results. LAB L500.29147 15-24 Normal BUN/CREA 16 LAB L500.07865 8.5-10.1 MG/DL Normal CALCIUM TOTAL 8.6 Performed By: #### L500.49862, L500.97259 #### [facility] [address] [place] [address] GFR EST Collected: 01/12/2018 Status: F Source: [facility] 4:35 AM [facility] REPOSITORY Order Comment: Johnson: M TYPE CODE TESTS RESULT OUT OF RANGE REFERENCE UNITS LAB L500.58282 ML/MIN Normal IF non-AFR 30 AMER LAB L500.48489 ML/MIN Normal IF 36 AMER Performed By: #### L500.38266, L500.00374 #### [facility] [address] [place] [address] PROG.NOTE Observed: 01/11/2018 Status: UNK Source: [facility] 8:13 AM [facility] Patient Name: VICKI HERNANDEZ [address] [facility] Date of : 56 [place] [address] Unit Number: [id number] Progress Note-Physician Patient Status: REG RCR Attending [...] in place. Diagnostic Data: Lab 24hr (CBC/BMP [facility]) 01/11/18 0424: INR 2.5 H, PT Normal [...] 0815 PT Collected: 01/11/2018 Status: F Source: [facility] 4:24 AM [facility] Order Comment: Johnson: TYPE CODE TESTS RESULT OUT OF RANGE REFERENCE UNITS LAB L300.74250 0.9-1.1 High INR 2.5 Result Comment: Recommended PT INR therapeutic range for dockmaster and prophylactic therapy is 2.0 - 3.0. For heart valve and shunt patients the range is 2.5 - 3.5. LAB L300.54583 9.4-12.0 SECONDS High 27.2 PTS Performed By: #### L300.32374 #### [facility] [address] [place] [address] PROG.NOTE Observed: 01/10/2018 Status: UNK Source: [facility] 5:13 PM [facility] Patient Name: VICKI HERNANDEZ [address] [facility] Date of : 56 [place] [address] Unit Number: [id number] Progress Note-Physician Patient Status: REG RCR Attending Doctor: Amadeo Cali MD Service Date: 01/10/18 6154 Subjective S: (2 ROS minimum) Patient has [...] in place. Diagnostic Data: Lab 24hr (CBC/BMP [facility]) 01/10/18 0426: [Embedded Image Not Available] Anion [...] 1714 BMP Collected: 01/10/2018 Status: F Source: [facility] 4:26 AM [facility] REPOSITORY Order Comment: Johnson: M TYPE CODE TESTS RESULT OUT OF RANGE REFERENCE UNITS LAB L500.03352 136-145 MMOL/L Normal NA 140 LAB L500.14338 3.5-5.1 MMOL/L Normal K 3.6 LAB L500.75524 98-107 MMOL/L Low CL 97 LAB L500.18834 21-32 MMOL/L High CO2 37 LAB L500.96654 5-16 MMOL/L Normal AGAP 6 LAB L500.70844 70-100 MG/DL High GLU 117 Result Comment: 70-100- Normal Fasting; 100-125 Impaired Fasting; greater than 126 on more than one result- Diabetes. ADA guidelines. Results may be falsely elevated after the administration of Sulfapyridine. Results may be falsely depressed after the administration of Sulfasalazine. LAB L500.17449 7-26 MG/DL High BUN 33 LAB L500.82381 0.510-0.950 MG/DL High CREAT 1.930 Result Comment: Patients receiving either N-Acetylcysteine (NAC) or Metamizole prior to venipuncture, may have falsely depressed results. LAB L500.00776 15-24 Normal BUN/CREA 17 LAB L500.74129 8.5-10.1 MG/DL Low CALCIUM TOTAL 8.1 Performed By: #### L500.36680, L500.91686 #### [facility] [address] [place] [address] GFR EST Collected: 01/10/2018 Status: F Source: [facility] 4:26 AM [facility] REPOSITORY Order Comment: Johnson: M TYPE CODE TESTS RESULT OUT OF RANGE REFERENCE UNITS LAB L500.43633 ML/MIN Normal IF non-AFR 27 AMER LAB L500.63869 ML/MIN Normal IF 32 AMER Performed By: #### L500.15871, L500.39793 #### [facility] [place] [address] VANC TROUGH Collected: 01/10/2018 Status: F Source: [facility] 4:26 AM [facility] REPOSITORY Order Comment: Johnson: M TYPE CODE TESTS RESULT OUT OF REFERENCE UNITS RANGE LAB L520.65148 15.0-20.0 MCG/ML Low VANC TROUGH 9.0 Performed By: #### L520.51147 #### [facility] [address] [place] [address] CBC Collected: 01/10/2018 Status: F Source: [facility] 4:25 AM [facility] REPOS[facility] Order Comment: Johnson: M TYPE CODE TESTS RESULT OUT OF RANGE REFERENCE UNITS LAB L200.00996 4.5-11.0 K/CU MM Normal WBC 5.3 LAB L200.36977 3.90-5.30 M/CU MM Low RBC 2.81 LAB L200.64870 11.5-15.5 G/DL Low HGB 8.0 LAB L200.12250 35.0-47.0 % Low HCT 26.1 LAB L200.77785 80.0-99.0 fl Normal MCV 92.9 LAB L200.81098 32.0-36.0 GM/DL Low MCHC 30.7 LAB L200.32922 11-14.5 High RDW 18.3 LAB L200.62432 9.4-12.4 Low MPV 9.1 LAB L200.38809 150-450 K/CU MM Normal PLT 245 LAB L200.74439 Less than 1 % Normal NRBC 0.0 Performed By: #### L200.90716 #### [facility] [address] [place] [address] PT Collected: 01/10/2018 Status: F Source: [facility] 4:25 AM [facility] REPOS[facility]ORY Order Comment: Johnson: M TYPE CODE TESTS RESULT OUT OF RANGE REFERENCE UNITS LAB L300.33317 0.9-1.1 High INR 1.9 Result Comment: Recommended PT INR therapeutic range for dockmaster and prophylactic therapy is 2.0 - 3.0. For heart valve and shunt patients the range is 2.5 - 3.5. LAB L300.75524 9.4-12.0 SECONDS High 20.4 PTS Performed By: #### L300.32371 #### [facility] [address] [place] [address] # [phone] PROG.NOTE Observed: 01/09/2018 Status: UNK Source: [facility] 3:16 PM [facility] REPOSIT[facility] Patient Name: VICKI HERNANDEZ [address] [facility] [address] Date of : [address] [place], [place] [address] Unit Number: [id number] Progress Note-Physician Patient Status: REG RCR Attending [...] morbidly obese female who is admitted to [facility] for further wound care and [...] 1557 PT Collected: 01/09/2018 Status: F Source: [facility] 6:22 AM [facility] REPOS[facility] Order Comment: Johnson: M TYPE CODE TESTS RESULT OUT OF RANGE REFERENCE UNITS LAB L300.06931 0.9-1.1 High INR 2.0 Result Comment: Recommended PT INR therapeutic range for assisted and prophylactic therapy is 2.0 - 3.0. For heart valve and shunt patients the range is 2.5 - 3.5. LAB L300.79893 9.4-12.0 SECONDS High 21.9 PTS Performed By: #### L300.11406 #### [facility] [address] [place] [address] BMP Collected: 01/09/2018 Status: F Source: [facility] 6:22 AM [facility] REPOS[facility] Order Comment: Johnson: M TYPE CODE TESTS RESULT OUT OF RANGE REFERENCE UNITS LAB L500.27331 136-145 MMOL/L Normal NA 143 LAB L500.56825 3.5-5.1 MMOL/L Normal K 3.6 LAB L500.87351 98-107 MMOL/L Low CL 97 LAB L500.06325 21-32 MMOL/L High CO2 37 LAB L500.37545 5-16 MMOL/L Normal AGAP 9 LAB L500.12848 70-100 MG/DL High GLU 118 Result Comment: 70-100- Normal Fasting; 100-125 Impaired Fasting; greater than 126 on more than one result- Diabetes. ADA guidelines. Results may be falsely elevated after the administration of Sulfapyridine. Results may be falsely depressed after the administration of Sulfasalazine. LAB L500.73903 7-26 MG/DL High BUN 31 LAB L500.88590 0.510-0.950 MG/DL High CREAT 2.030 Result Comment: Patients receiving either N-Acetylcysteine (NAC) or Metamizole prior to venipuncture, may have falsely depressed results. LAB L500.09708 15-24 Normal BUN/CREA 15 LAB L500.05424 8.5-10.1 MG/DL Normal CALCIUM TOTAL 8.5 Performed By: #### L500.04493, L500.50300 #### [facility] [address] [place] [address] GFR EST Collected: 01/09/2018 Status: F Source: [facility] 6:22 AM [facility] REPOS[facility] Order Comment: Johnson: TYPE CODE TESTS RESULT OUT OF RANGE REFERENCE UNITS LAB L500.13024 ML/MIN Normal IF non-AFR 25 AMER LAB L500.97860 ML/MIN Normal IF 30 AMER Performed By: #### L500.39031, L500.82698 #### [facility] [address] [place] [address] PROG.NOTE Observed: 01/08/2018 Status: UNK Source: [facility] 1:21 PM [facility] REPOSITORY [facility] Patient Name: VICKI HERNANDEZ [address] [facility] Date of : [address] [place] [address] Unit Number: [id number] Progress Note-Physician Patient Status: REG RCR Attending [...] 1640 PT Collected: 01/08/2018 Status: F Source: [facility] 5:53 AM [facility] REPOS[facility] Order Comment: Johnson: M TYPE CODE TESTS RESULT OUT OF RANGE REFERENCE UNITS LAB L300.61248 0.9-1.1 High INR 2.7 Result Comment: Recommended PT INR therapeutic range for dockmaster and prophylactic therapy is 2.0 - 3.0. For heart valve and shunt patients the range is 2.5 - 3.5. LAB L300.89601 9.4-12.0 SECONDS High 29.2 PTS Performed By: #### L300.33034 #### [facility] [place] [address] BMP Collected: 01/08/2018 Status: F Source: [facility] 5:53 AM [facility] REPOS[facility] Order Comment: Johnson: M TYPE CODE TESTS RESULT OUT OF RANGE REFERENCE UNITS LAB L500.37574 136-145 MMOL/L Normal NA 141 LAB L500.70499 3.5-5.1 MMOL/L Low K 3.4 LAB L500.63243 98-107 MMOL/L Low CL 97 LAB L500.36350 21-32 MMOL/L High CO2 37 LAB L500.57169 5-16 MMOL/L Normal AGAP 7 LAB L500.92887 70-100 MG/DL High GLU 106 Result Comment: 70-100- Normal Fasting; 100-125 Impaired Fasting; greater than 126 on more than one result- Diabetes. ADA guidelines. Results may be falsely elevated after the administration of Sulfapyridine. Results may be falsely depressed after the administration of Sulfasalazine. LAB L500.83797 7-26 MG/DL High BUN 30 LAB L500.82006 0.510-0.950 MG/DL High CREAT 2.060 Result Comment: Patients receiving either N-Acetylcysteine (NAC) or Metamizole prior to venipuncture, may have falsely depressed results. LAB L500.22349 15-24 Normal BUN/CREA 15 LAB L500.43600 8.5-10.1 MG/DL Low CALCIUM TOTAL 7.7 Performed By: #### L500.66825, L500.44310, L500.16247 #### [facility] [address] [place] [address] GFR EST Collected: 01/08/2018 Status: F Source: [facility] 5:53 AM [facility] REPOSIT[facility] Order Comment: Johnson: M TYPE CODE TESTS RESULT OUT OF RANGE REFERENCE UNITS LAB L500.30621 ML/MIN Normal IF non-AFR 25 AMER LAB L500.88333 ML/MIN Normal IF 30 AMER Performed By: #### L500.99229, L500.75331, L500.68909 #### [facility] [address] [place] [address] MAGNESIUM Collected: 01/08/2018 Status: F Source: [facility] 5:53 AM [facility] REPOSIT[facility] Order Comment: Johnson: M TYPE CODE TESTS RESULT OUT OF RANGE REFERENCE UNITS LAB L500.26003 1.6-2.6 MG/DL Normal MAGNESIUM 1.7 Performed By: #### L500.93405, L500.68870, L500.33115 #### [facility] [address] [place] [address] VANC TROUGH Collected: 01/08/2018 Status: F Source: [facility] 5:53 AM [facility] REPOSIT[facility] Order Comment: Johnson: M TYPE CODE TESTS RESULT OUT OF REFERENCE UNITS RANGE LAB L520.81177 15.0-20.0 MCG/ML Low VANC TROUGH 13.9 Performed By: #### L520.48085 #### [facility] [address] [place] [address] PROG.NOTE Observed: 01/07/2018 Status: UNK Source: [facility] 8:31 AM [facility] REPOSITORY [facility] Patient Name: VICKI HERNANDEZ [address] [facility] [address] Date of : [address] [place], [place] [address] Unit Number: [id number] Progress Note-Physician Patient Status: REG RCR Attending [...] morbidly obese female who is admitted to [facility] for further wound care and [...] 0749 PT Collected: 01/07/2018 Status: F Source: [facility] 5:27 AM [facility] REPOS[facility]ORY Order Comment: Johnson: M TYPE CODE TESTS RESULT OUT OF RANGE REFERENCE UNITS LAB L300.22504 0.9-1.1 High INR 2.5 Result Comment: Recommended PT INR therapeutic range for assisted and prophylactic therapy is 2.0 - 3.0. For heart valve and shunt patients the range is 2.5 - 3.5. LAB L300.68337 9.4-12.0 SECONDS High 27.9 PTS Performed By: #### L300.76392 #### [facility] [address] [place] [address] PROG.NOTE Observed: 01/06/2018 Status: UNK Source: [facility] 1:09 PM [facility] REPOSITORY [facility] Patient Name: VICKI HERNANDEZ [address] [facility] Date of : [address] [place] [address] Unit Number: [id number] Progress Note-Physician Patient Status: REG RCR Attending [...] in place. Diagnostic Data: Lab 24hr (CBC/BMP [facility]) 01/06/18 0438: [Embedded Image Not Available] Anion [...] morbidly obese female who is admitted to [facility] for further wound care and [...] CBC W/DIFF Collected: 01/06/2018 Status: F Source: [facility] 4:38 AM [facility] REPOS[facility] Order Comment: Johnson: TYPE CODE TESTS RESULT OUT OF RANGE REFERENCE UNITS LAB L200.45007 4.5-11.0 K/CU MM WBC Normal 5.2 LAB L200.50012 3.90-5.30 M/CU MM Low RBC 2.65 LAB L200.10096 11.5-15.5 G/DL Low HGB 7.5 LAB L200.02276 35.0-47.0 % Low HCT 25.1 LAB L200.56650 80.0-99.0 fl MCV Normal 94.7 LAB L200.50613 32.0-36.0 GM/DL Low MCHC 29.9 LAB L200.44516 11-14.5 High RDW 18.7 LAB L200.49038 9.4-12.4 Low MPV 9.2 LAB L200.70626 150-450 K/CU MM PLT Normal 201 LAB L200.66925 45-75 % NEUTROPHILS Normal % 57.4 LAB L200.18666 Less than 2 % IMMATURE Normal GRAN % 0.4 LAB L200.06581 20-40 % LYMPH % Normal 22.0 LAB L200.29419 2-10 % High MONOCYTE % 12.5 LAB L200.45867 0-5 % High EOSINOPHIL % 7.3 LAB L200.12940 0-2 % BASOPHIL % Normal 0.4 LAB L200.82425 2.0-8.3 K/CU MM NEUTROPHIL Normal ABS 3.00 LAB L200.52095 Less than 2 K/CU MM IMMATR GRAN Normal ABS 0.00 LAB L200.36744 0.9-4.4 K/CU MM LYMPH ABS Normal 1.10 LAB L200.53548 0.1-1.1 K/CU MM MONO ABS Normal 0.70 LAB L200.99879 0-0.5 K/CU MM EOS ABS Normal 0.40 LAB L200.82340 0-0.2 K/CU MM BASO ABS Normal 0.00 LAB L200.80475 Less than 1 % NRBC Normal 0.0 Performed By: #### L200.88225 #### [facility] [address] [place] [address] PT Collected: 01/06/2018 Status: F Source: [facility] 4:38 AM [facility] REPOSITORY Order Comment: Johnson: M TYPE CODE TESTS RESULT OUT OF RANGE REFERENCE UNITS LAB L300.53553 0.9-1.1 High INR 2.3 Result Comment: Recommended PT INR therapeutic range for dockmaster and prophylactic therapy is 2.0 - 3.0. For heart valve and shunt patients the range is 2.5 - 3.5. LAB L300.99482 9.4-12.0 SECONDS High 24.8 PTS Performed By: #### L300.63188 #### [facility] [address] [place] [address] BMP Collected: 01/06/2018 Status: F Source: [facility] 4:38 AM [facility] REPOS[facility] Order Comment: Johnson: M TYPE CODE TESTS RESULT OUT OF RANGE REFERENCE UNITS LAB L500.78212 136-145 MMOL/L Normal NA 143 LAB L500.03624 3.5-5.1 MMOL/L Normal K 3.6 LAB L500.59484 98-107 MMOL/L Normal CL 100 LAB L500.73599 21-32 MMOL/L High CO2 35 LAB L500.27673 5-16 MMOL/L Normal AGAP 8 LAB L500.17403 70-100 MG/DL High GLU 114 Result Comment: 70-100- Normal Fasting; 100-125 Impaired Fasting; greater than 126 on more than one result- Diabetes. ADA guidelines. Results may be falsely elevated after the administration of Sulfapyridine. Results may be falsely depressed after the administration of Sulfasalazine. LAB L500.93946 7-26 MG/DL High BUN 36 LAB L500.17453 0.510-0.950 MG/DL High CREAT 2.150 Result Comment: Patients receiving either N-Acetylcysteine (NAC) or Metamizole prior to venipuncture, may have falsely depressed results. LAB L500.05373 15-24 Normal BUN/CREA 17 LAB L500.22568 8.5-10.1 MG/DL Low CALCIUM TOTAL 8.2 Performed By: #### L500.50023, L500.80370 #### [facility] [address] [place] [address] GFR EST Collected: 01/06/2018 Status: F Source: [facility] 4:38 AM [facility] REPOSITORY Order Comment: Johnson: M TYPE CODE TESTS RESULT OUT OF RANGE REFERENCE UNITS LAB L500.44071 ML/MIN Normal IF non-AFR 23 AMER LAB L500.34679 ML/MIN Normal IF 28 AMER Performed By: #### L500.02356, L500.77717 #### [facility] [address] [place] [address] VANC TROUGH Collected: 01/06/2018 Status: F Source: [facility] 4:38 AM [facility] REPOSITORY Order Comment: Johnson: M : RANDOM VANCOMYCIN TROUGH TYPE CODE TESTS RESULT OUT OF REFERENCE UNITS RANGE LAB L520.28193 15.0-20.0 MCG/ML High alert VANC TROUGH 21.1 Result Comment: Critical Result(s) Called at: 06:32:45 on 01/06/2018 by: Ranjana Stewart to and read back by: KAYE HERNANDEZ Performed By: #### L520.77241 #### [facility] [address] [place] [address] PROG.NEPH Observed: 01/05/2018 Status: UNK Source: [facility] 3:43 PM [facility] Patient Name: VICKI HERNANDEZ [address] [facility] Date of : [address] [place] [address] Unit Number: [id number] Progress Note-Nephrology Patient Status: REG RCR Attending Doctor: Amadeo Cali MD Service Date: 01/05/18 5066 Progress Note-Nephrology([facility]) Subjective Subjective: Resting comfortably. No acute evenst [...] 1545 PROG.NOTE Observed: 01/05/2018 Status: UNK Source: [facility] 12:50 PM [facility]ENTER [facility] Patient Name: VICKI HERNANDEZ [address] Date of : [address] [place] [address] Unit Number: [id number] Progress Note-Physician Patient Status: REG RCR Attending [...] morbidly obese female who is admitted to [facility] for further wound care and management of [...] 1253 PROGRESS Observed: 01/05/2018 Status: COMPLETED Source: [facility] [place] 11:13 AM [facility] REPOSITORY HNO ID: [id number] Author: Melvina Emanuel) Sung Service: (none) Author Type: Registered Nurse Type: Progress Notes Filed: 01/05/2018 11:16 AM Note Text: TC to [facility], Adriana states pt is till inpatient. Transferred to [facility] , left message to please call [facility] back regarding any possible discharge planning. Melvina Almaraz RN January 05, 2018 11:15 AM [facility] R[facility]OM Collected: 01/05/2018 Status: F Source: [facility] 8:44 AM [facility] REPOSITORY Order Comment: Johnson: M : PRIOR TO EACH VANC DOSE, HOLD IF GREATER THAN 20 TYPE CODE TESTS RESULT OUT OF RANGE REFERENCE UNITS LAB L520.03138 MCG/ML Normal VANC RANDOM 24.2 Performed By: #### L520.87105 #### [facility] [address] [place] [address] PT Collected: 01/05/2018 Status: F Source: [facility] 4:23 AM [facility] REPOS[facility]ORY Order Comment: Johnson: M TYPE CODE TESTS RESULT OUT OF RANGE REFERENCE UNITS LAB L300.63060 0.9-1.1 High INR 3.1 Result Comment: Recommended PT INR therapeutic range for dockmaster and prophylactic therapy is 2.0 - 3.0. For heart valve and shunt patients the range is 2.5 - 3.5. LAB L300.88317 9.4-12.0 SECONDS High 34.1 PTS Performed By: #### L300.77755 #### [facility] [address] [place] [address] VANC TROUGH Collected: 01/05/2018 Status: F Source: [facility] 4:23 AM [facility] REPOS[facility]ORY Order Comment: Johnson: M TYPE CODE TESTS RESULT OUT OF REFERENCE UNITS RANGE LAB L520.89630 15.0-20.0 MCG/ML High alert VANC TROUGH 25.6 Result Comment: Critical Result(s) Called at: 05:05:34 on 01/05/2018 by: Shanthi Zuñiga to and read back by: JEANNE RIVERS Performed By: #### L520.72996 #### [facility] [address] [place] [address] PROG.NEPH Observed: 01/04/2018 Status: UNK Source: [facility] 2:38 PM [facility] Patient Name: VICKI HERNANDEZ [address] [facility] Date of : [address] [place] [address] Unit Number: [id number] Progress Note-Nephrology Patient Status: REG RCR Attending Doctor: Amadeo Cali MD Service Date: 01/04/18 1438 Progress Note-Nephrology([facility]) Subjective Subjective: Patient seen and examined. Resting [...] 1439 PROG.NOTE Observed: 01/04/2018 Status: UNK Source: [facility] 8:12 AM [facility]ENTER [facility] Patient Name: VICKI HERNANDEZ [address] Date of : [address] [place] [address] Unit Number: [id number] Progress Note-Physician Patient Status: REG RCR Attending [...] left leg. Diagnostic Data: Lab 24hr (CBC/BMP [facility]) 01/04/18 0407: [Embedded Image Not Available] Anion [...] 0819 PT Collected: 01/04/2018 Status: F Source: [facility] 4:07 AM [facility] RE[facility] Order Comment: Johnson: M TYPE CODE TESTS RESULT OUT OF RANGE REFERENCE UNITS LAB L300.05827 0.9-1.1 High INR 2.4 Result Comment: Recommended PT INR therapeutic range for dockmaster and prophylactic therapy is 2.0 - 3.0. For heart valve and shunt patients the range is 2.5 - 3.5. LAB L300.04196 9.4-12.0 SECONDS High 26.8 PTS Performed By: #### L300.07440 #### [facility] [address]# [phone] CBC W/DIFF Collected: 01/04/2018 Status: F Source: [facility] 4:07 AM [facility] REPOS[facility]ORY Order Comment: Johnson: M TYPE CODE TESTS RESULT OUT OF RANGE REFERENCE UNITS LAB L200.54054 4.5-11.0 K/CU MM WBC Normal 6.9 LAB L200.56013 3.90-5.30 M/CU MM Low RBC 2.60 LAB L200.49775 11.5-15.5 G/DL Low HGB 7.5 LAB L200.93625 35.0-47.0 % Low HCT 24.6 LAB L200.70659 80.0-99.0 fl MCV Normal 94.6 LAB L200.18298 32.0-36.0 GM/DL Low MCHC 30.5 LAB L200.25500 11-14.5 High RDW 18.7 LAB L200.46296 9.4-12.4 Low MPV 9.0 LAB L200.93128 150-450 K/CU MM PLT Normal 192 LAB L200.43639 45-75 % NEUTROPHILS Normal % 66.7 LAB L200.78419 Less than 2 % IMMATURE Normal GRAN % 0.3 LAB L200.47239 20-40 % Low LYMPH % 13.7 LAB L200.68384 2-10 % High MONOCYTE % 13.7 LAB L200.01749 0-5 % High EOSINOPHIL % 5.3 LAB L200.93193 0-2 % BASOPHIL % Normal 0.3 LAB L200.64047 2.0-8.3 K/CU MM NEUTROPHIL Normal ABS 4.60 LAB L200.02275 Less than 2 K/CU MM IMMATR GRAN Normal ABS 0.00 LAB L200.73785 0.9-4.4 K/CU MM LYMPH ABS Normal 0.90 LAB L200.44794 0.1-1.1 K/CU MM MONO ABS Normal 0.90 LAB L200.69083 0-0.5 K/CU MM EOS ABS Normal 0.40 LAB L200.46738 0-0.2 K/CU MM BASO ABS Normal 0.00 LAB L200.62422 Less than 1 % NRBC Normal 0.0 Performed By: #### L200.46918 #### [facility] [address] [place] [address] BMP Collected: 01/04/2018 Status: F Source: [facility] 4:07 AM [facility] REPOSITORY Order Comment: Johnson: TYPE CODE TESTS RESULT OUT OF RANGE REFERENCE UNITS LAB L500.48758 136-145 MMOL/L Normal NA 141 LAB L500.85759 3.5-5.1 MMOL/L Normal K 4.0 LAB L500.35736 98-107 MMOL/L Normal CL 100 LAB L500.97093 21-32 MMOL/L High CO2 33 LAB L500.95061 5-16 MMOL/L Normal AGAP 8 LAB L500.41405 70-100 MG/DL High GLU 117 Result Comment: 70-100- Normal Fasting; 100-125 Impaired Fasting; greater than 126 on more than one result- Diabetes. ADA guidelines. Results may be falsely elevated after the administration of Sulfapyridine. Results may be falsely depressed after the administration of Sulfasalazine. LAB L500.92582 7-26 MG/DL High BUN 40 LAB L500.97107 0.510-0.950 MG/DL High CREAT 2.000 Result Comment: Patients receiving either N-Acetylcysteine (NAC) or Metamizole prior to venipuncture, may have falsely depressed results. LAB L500.60935 15-24 Normal BUN/CREA 20 LAB L500.07616 8.5-10.1 MG/DL Normal CALCIUM TOTAL 8.6 Performed By: #### L500.24685, L500.09884 #### [facility] [address] [place] [address] GFR EST Collected: 01/04/2018 Status: F Source: [facility] 4:07 AM [facility] REPOSITORY Order Comment: Johnson: M TYPE CODE TESTS RESULT OUT OF RANGE REFERENCE UNITS LAB L500.95296 ML/MIN Normal IF non-AFR 26 AMER LAB L500.22646 ML/MIN Normal IF 31 AMER Performed By: #### L500.21126, L500.47372 #### [facility] [address] [place] [address] VANC TROUGH Collected: 01/04/2018 Status: F Source: [facility] 4:07 AM [facility] REPOSITORY Order Comment: Johnson: M TYPE CODE TESTS RESULT OUT OF REFERENCE UNITS RANGE LAB L520.12707 15.0-20.0 MCG/ML High alert VANC TROUGH 29.9 Result Comment: Critical Result(s) Called at: 05:29:01 on 01/04/2018 by: Ranjana Stewart to and read back by: AMBER HERNANDEZ Performed By: #### L520.00393 #### [facility] [address] [place] [address] VANC RANDOM Collected: 01/03/2018 Status: C Source: [facility] 8:40 AM [facility] REPOSITORY Order Comment: Johnson: M : PRIOR TO EACH VANC DOSE, HOLD IF GREATER THAN 20 TYPE CODE TESTS RESULT OUT OF RANGE REFERENCE UNITS LAB L520.89675 MCG/ML Normal VANC RANDOM 33.7 Result Comment: CRITICAL VALUE(S) VERIFIED AND CALLED TO AND READ BACK BY GIORGIO GARCIA RN AT 0944 01/03/18 BY ELA MAYERS 01/03/18 0944: VANC RANDOM previously reported as: 33.7 MCG/ML Performed By: #### L520.13587 #### [facility] [address] [place] [address] PROG.NOTE Observed: 01/03/2018 Status: UNK Source: [facility] 5:49 AM [facility] REPOSITORY [facility] Patient Name: VICKI HERNANDEZ [address] Date of : [address] [place] [address] Unit Number: [id number] Progress Note-Physician Patient Status: REG RCR Attending [...] and dry. Diagnostic Data: Lab 24hr (CBC/BMP [facility]) 01/03/18 0450: [Embedded Image Not Available] Anion [...] 0804 PT Collected: 01/03/2018 Status: F Source: [facility] 4:50 AM [facility] REPOSITORY Order Comment: Johnson: M TYPE CODE TESTS RESULT OUT OF RANGE REFERENCE UNITS LAB L300.23345 0.9-1.1 High INR 4.1 Result Comment: Recommended PT INR therapeutic range for dockmaster and prophylactic therapy is 2.0 - 3.0. For heart valve and shunt patients the range is 2.5 - 3.5. LAB L300.24332 9.4-12.0 SECONDS High 46.0 PTS Performed By: #### L300.01672 #### [facility] [address] [place] [address] BMP Collected: 01/03/2018 Status: F Source: [facility] 4:50 AM [facility] REPOSITORY Order Comment: Johnson: M TYPE CODE TESTS RESULT OUT OF RANGE REFERENCE UNITS LAB L500.17149 136-145 MMOL/L Normal NA 140 LAB L500.65313 3.5-5.1 MMOL/L Normal K 4.0 LAB L500.65128 98-107 MMOL/L Normal CL 101 LAB L500.77007 21-32 MMOL/L High CO2 33 LAB L500.91578 5-16 MMOL/L Normal AGAP 7 LAB L500.55053 70-100 MG/DL High GLU 143 Result Comment: 70-100- Normal Fasting; 100-125 Impaired Fasting; greater than 126 on more than one result- Diabetes. ADA guidelines. Results may be falsely elevated after the administration of Sulfapyridine. Results may be falsely depressed after the administration of Sulfasalazine. LAB L500.27358 7-26 MG/DL High BUN 40 LAB L500.79594 0.510-0.950 MG/DL High CREAT 1.970 Result Comment: Patients receiving either N-Acetylcysteine (NAC) or Metamizole prior to venipuncture, may have falsely depressed results. LAB L500.31437 15-24 Normal BUN/CREA 20 LAB L500.51447 8.5-10.1 MG/DL Normal CALCIUM TOTAL 8.6 Performed By: #### L500.83696, L500.18523 #### [facility] [address] [place] [address] GFR EST Collected: 01/03/2018 Status: F Source: [facility] 4:50 AM [facility] REPOSITORY Order Comment: Johnson: TYPE CODE TESTS RESULT OUT OF RANGE REFERENCE UNITS LAB L500.79791 ML/MIN Normal IF non-AFR 26 AMER LAB L500.85815 ML/MIN Normal IF 31 AMER Performed By: #### L500.60261, L500.67439 #### [facility] [address] [place] [address] PROG.NOTE Observed: 01/02/2018 Status: UNK Source: [facility] 10:53 PM [facility] Patient Name: VICKI HERNANDEZ [address] [facility] Date of : [address] [place] [address] Unit Number: [id number] Progress Note-Physician Patient Status: REG RCR Attending [...] VANC RANDOM Collected: 01/02/2018 Status: F Source: [facility] 9:08 AM [facility] REPOSITORY Order Comment: Johnson: M : PRIOR TO EACH VANC DOSE, HOLD IF GREATER THAN 20 TYPE CODE TESTS RESULT OUT OF RANGE REFERENCE UNITS LAB [id number] MCG/ML Normal VANC RANDOM 35.7 Performed By: #### [id number] #### [facility] [address] [place] [address] CBC Collected: 01/02/2018 Status: F Source: [facility] 6:02 AM [facility] REPOSIT[facility] Order Comment: Johnson: M TYPE CODE TESTS RESULT OUT OF RANGE REFERENCE UNITS LAB L200.87813 4.5-11.0 K/CU MM Normal WBC 7.8 LAB L200.56908 3.90-5.30 M/CU MM Low RBC 2.83 LAB L200.82116 11.5-15.5 G/DL Low HGB 8.0 LAB L200.35363 35.0-47.0 % Low HCT 26.7 LAB L200.88843 80.0-99.0 fl Normal MCV 94.3 LAB L200.98125 32.0-36.0 GM/DL Low MCHC 30.0 LAB L200.16488 11-14.5 High RDW 18.9 LAB L200.94076 9.4-12.4 Low MPV 9.2 LAB L200.09097 150-450 K/CU MM Normal PLT 190 LAB L200.93545 Less than 1 % Normal NRBC 0.0 Performed By: #### L200.52630 #### [facility] [address] [place] [address] PT Collected: 01/02/2018 Status: F Source: [facility] 6:02 AM [facility] REPOSITORY Order Comment: Johnson: M TYPE CODE TESTS RESULT OUT OF RANGE REFERENCE UNITS LAB L300.05050 0.9-1.1 High INR 3.9 Result Comment: Recommended PT INR therapeutic range for dockmaster and prophylactic therapy is 2.0 - 3.0. For heart valve and shunt patients the range is 2.5 - 3.5. LAB L300.55049 9.4-12.0 SECONDS High 43.9 PTS Performed By: #### L300.94843 #### [facility] [address] [place] [address] BMP Collected: 01/02/2018 Status: F Source: [facility] 6:02 AM [facility] RE[facility]IT[facility] Order Comment: Johnson: M TYPE CODE TESTS RESULT OUT OF RANGE REFERENCE UNITS LAB L500.52523 136-145 MMOL/L Normal NA 140 LAB L500.71388 3.5-5.1 MMOL/L Normal K 4.3 LAB L500.79233 98-107 MMOL/L Normal CL 102 LAB L500.46784 21-32 MMOL/L Normal CO2 31 LAB L500.97435 5-16 MMOL/L Normal AGAP 7 LAB L500.92726 70-100 MG/DL High GLU 117 Result Comment: 70-100- Normal Fasting; 100-125 Impaired Fasting; greater than 126 on more than one result- Diabetes. ADA guidelines. Results may be falsely elevated after the administration of Sulfapyridine. Results may be falsely depressed after the administration of Sulfasalazine. LAB L500.76530 7-26 MG/DL High BUN 35 LAB L500.00342 0.510-0.950 MG/DL High CREAT 1.910 Result Comment: Patients receiving either N-Acetylcysteine (NAC) or Metamizole prior to venipuncture, may have falsely depressed results. LAB L500.23750 15-24 Normal BUN/CREA 18 LAB L500.61055 8.5-10.1 MG/DL Low CALCIUM TOTAL 8.4 Performed By: #### L500.51465, L500.30662 #### [facility] [address] [place] [address] GFR EST Collected: 01/02/2018 Status: F Source: [facility] 6:02 AM [facility] REPOS[facility] Order Comment: Johnson: M TYPE CODE TESTS RESULT OUT OF RANGE REFERENCE UNITS LAB L500.30452 ML/MIN Normal IF non-AFR 27 AMER LAB L500.33361 ML/MIN Normal IF 33 AMER Performed By: #### L500.84159, L500.30297 #### [facility] [address] [place] [address] VANC RANDOM Collected: 01/01/2018 Status: F Source: [facility] 8:45 AM [facility] REPOSIT[facility] Order Comment: Johnson: M : PRIOR TO EACH VANC DOSE, HOLD IF GREATER THAN 20 TYPE CODE TESTS RESULT OUT OF RANGE REFERENCE UNITS LAB L520.73008 MCG/ML Normal VANC RANDOM 38.6 Performed By: #### L520.98748 #### [facility] [address] [place] [address] PROG.NOTE Observed: 01/01/2018 Status: UNK Source: [facility] 8:33 AM [facility] Patient Name: VICKI HERNANDEZ [address] [facility] Date of : [address] [address] Unit Number: [id number] Progress Note-Physician Patient Status: REG RCR Attending [...] CBC W/DIFF Collected: 01/01/2018 Status: F Source: [facility] 5:21 AM [facility] RE[facility] Order Comment: Johnson: M TYPE CODE TESTS RESULT OUT OF RANGE REFERENCE UNITS LAB L200.72938 4.5-11.0 K/CU MM WBC Normal 6.5 LAB L200.62211 3.90-5.30 M/CU MM Low RBC 2.87 LAB L200.91757 11.5-15.5 G/DL Low HGB 8.1 LAB L200.65686 35.0-47.0 % Low HCT 27.5 LAB L200.45214 80.0-99.0 fl MCV Normal 95.8 LAB L200.77001 32.0-36.0 GM/DL Low MCHC 29.5 LAB L200.91855 11-14.5 High RDW 19.2 LAB L200.32314 9.4-12.4 Low MPV 9.1 LAB L200.73508 150-450 K/CU MM PLT Normal 200 LAB L200.25245 45-75 % NEUTROPHILS Normal % 63.6 LAB L200.53665 Less than 2 % IMMATURE Normal GRAN % 0.3 LAB L200.99302 20-40 % Low LYMPH % 14.4 LAB L200.07932 2-10 % High MONOCYTE % 15.2 LAB L200.41531 0-5 % High EOSINOPHIL % 6.0 LAB L200.64661 0-2 % BASOPHIL % Normal 0.5 LAB L200.00159 2.0-8.3 K/CU MM NEUTROPHIL Normal ABS 4.10 LAB L200.06654 Less than 2 K/CU MM IMMATR GRAN Normal ABS 0.00 LAB L200.96186 0.9-4.4 K/CU MM LYMPH ABS Normal 0.90 LAB L200.57327 0.1-1.1 K/CU MM MONO ABS Normal 1.00 LAB L200.83155 0-0.5 K/CU MM EOS ABS Normal 0.40 LAB L200.98407 0-0.2 K/CU MM BASO ABS Normal 0.00 LAB L200.81355 Less than 1 % NRBC Normal 0.0 Performed By: #### L200.71270 #### [facility] [address] [id number] BMP Collected: 01/01/2018 Status: F Source: [facility] 5:21 AM [facility] Order Comment: Johnson: TYPE CODE TESTS RESULT OUT OF RANGE REFERENCE UNITS LAB L500.24175 136-145 MMOL/L Normal NA 140 LAB L500.93375 3.5-5.1 MMOL/L Normal K 4.7 LAB L500.97706 98-107 MMOL/L Normal CL 103 LAB L500.16156 21-32 MMOL/L Normal CO2 31 LAB L500.56637 5-16 MMOL/L Normal AGAP 7 LAB L500.58079 70-100 MG/DL High GLU 120 Result Comment: 70-100- Normal Fasting; 100-125 Impaired Fasting; greater than 126 on more than one result- Diabetes. ADA guidelines. Results may be falsely elevated after the administration of Sulfapyridine. Results may be falsely depressed after the administration of Sulfasalazine. LAB L500.63243 7-26 MG/DL High BUN 36 LAB L500.76255 0.510-0.950 MG/DL High CREAT 2.130 Result Comment: Patients receiving either N-Acetylcysteine (NAC) or Metamizole prior to venipuncture, may have falsely depressed results. LAB L500.96336 15-24 Normal BUN/CREA 17 LAB L500.07423 8.5-10.1 MG/DL Normal CALCIUM TOTAL 9.1 Performed By: #### L500.15107, L500.59899 #### [facility] [place] [address] GFR EST Collected: 01/01/2018 Status: F Source: [facility] 5:21 AM [facility] REPOS[facility] Order Comment: Johnson: M TYPE CODE TESTS RESULT OUT OF RANGE REFERENCE UNITS LAB L500.67322 ML/MIN Normal IF non-AFR 24 AMER LAB L500.13584 ML/MIN Normal IF 29 AMER Performed By: #### L500.72741, L500.87830 #### [facility] [address] [place] [address] PROG.NOTE Observed: 12/31/2017 Status: UNK Source: [facility] 2:37 PM [facility] Patient Name: VICKI HERNANDEZ [address] [facility] Date of : [address] [address] Unit Number: [id number] Progress Note-Physician Patient Status: REG RCR Attending [...] morbidly obese female who is admitted to [facility] for further wound care and management of [...] 0804 BMP Collected: 12/31/2017 Status: F Source: [facility] 4:32 AM [facility] REPOSIT[facility] Order Comment: Johnson: M TYPE CODE TESTS RESULT OUT OF RANGE REFERENCE UNITS LAB L500.13996 136-145 MMOL/L Normal NA 141 LAB L500.41197 3.5-5.1 MMOL/L Normal K 4.9 LAB L500.51455 98-107 MMOL/L Normal CL 105 LAB L500.36555 21-32 MMOL/L Normal CO2 29 LAB L500.37032 5-16 MMOL/L Normal AGAP 7 LAB L500.64894 70-100 MG/DL High GLU 121 Result Comment: 70-100- Normal Fasting; 100-125 Impaired Fasting; greater than 126 on more than one result- Diabetes. ADA guidelines. Results may be falsely elevated after the administration of Sulfapyridine. Results may be falsely depressed after the administration of Sulfasalazine. LAB L500.40002 7-26 MG/DL High BUN 33 LAB L500.47412 0.510-0.950 MG/DL High CREAT 2.500 Result Comment: Patients receiving either N-Acetylcysteine (NAC) or Metamizole prior to venipuncture, may have falsely depressed results. LAB L500.47716 15-24 Low BUN/CREA 13 LAB L500.55276 8.5-10.1 MG/DL Low CALCIUM TOTAL 8.1 Performed By: #### L500.47754, L500.60573, L500.32467 #### [facility] [address] [place] [address] GFR EST Collected: 12/31/2017 Status: F Source: [facility] 4:32 AM [facility] RE[facility] Order Comment: Johnson: M TYPE CODE TESTS RESULT OUT OF RANGE REFERENCE UNITS LAB L500.32910 ML/MIN Normal IF non-AFR 20 AMER LAB L500.04634 ML/MIN Normal IF 24 AMER Performed By: #### L500.30305, L500.24236, L500.79188 #### [facility] [address] [place] [address] IRON PANEL Collected: 12/31/2017 Status: F Source: [facility] 4:32 AM [facility] RE[facility] Order Comment: Johnson: M TYPE CODE TESTS RESULT OUT OF RANGE REFERENCE UNITS LAB L500.15923 50-170 UG/DL Low IRON 24 Result Comment: Patients treated with metal-binding drugs (e.g.deferoxamine) may have depressed iron values, as chelated iron may not properly react in the Siemens iron assay. LAB L500.80317 221-481 UG/DL Low TIBC 196 LAB L500.70232 22-44 % Low IRON SAT 12 Performed By: #### L500.75462, L500.29283, L500.15868 #### [facility] [address] [place] [address] HP.IMS.ADM Observed: 12/30/2017 Status: UNK Source: [facility] 5:08 PM [facility] Patient Name: VICKI HERNANDEZ [address] [facility] Date of : [address] [address] Unit Number: [id number] Admission-HandP Patient Status: REG RCR Attending Doctor: Amadeo Cali MD Service Date: 12/30/17 7308 History of Present Illness Source of Information Patient, Medical records Chief Complaint/Present Illness: Wound care History of Present Illness is a 57-year-old morbidly obese female with past medical history significant for type 2 diabetes, pulmonary hypertension, chronic atrial fibrillation who is on chronic anticoagulation therapy with Coumadin, obstructive sleep apnoea, essential hypertension, who got transferred from [facility] for further medical management regarding her wounds. [...] morbidly obese female who is admitted to [facility] for further wound care and management of [...] 1725 PROGRESS Observed: 12/30/2017 Status: COMPLETED Source: [place] 2:54 PM [facility] REPOSITORY HNO ID: [id number] Author: Rajesh Holman Service: (none) Author Type: Physician Type: Progress Notes Filed: 12/30/2017 4:35 PM Note Text: noted PROGRESS Observed: 12/30/2017 Status: COMPLETED Source: [place] 2:28 PM [facility] REPOSITORY HNO ID: [id number] Author: Melvina Almaraz (Rn) Service: (none) Author Type: Registered Nurse Type: Progress Notes Filed: 12/30/2017 2:33 PM Note Text: PRIMARY CARE COORDINATION FOLLOW-UP NOTE Provider Action/FYI Pt at [facility] to monitor Cardiac and Renal function. Has not required any further dialysis Patient identified by name and date of . YES Spoke to JOSE Mcnamara at [facility] and son Melody Summary: TC to sonMelody, states pt has not had anymore dialyses, states she had two at [facility] She was transferred to [facility] for them to closely monitor pt's heart and kidney function If pt is discharged to a SNF they will send her to [place] [facility] if possible, family doesn't want patient to go back to [facility]. Concerns: Asked Elissa GARCIA, to please call PCC during discharge planning even if pt is going to be discharged to SNF, verbalized agreement. Social Service Worker plan for next outreach: No further follow up needed at this time Signature Melvina Almaraz RN December 30, 2017 DISCHARGE SUMMARY Observed: 12/30/2017 Status: F Source: [place] 6:54 AM [facility] REPOSITORY [facility] Medical Records Department [address] [place] [address] Discharge Summary 12/30/17 0622 MR#: [id number] Acct: [id number] Name: VICKI HERNANDEZ Rep #: [id number] : 1960 57 From: Mary Eddy DO PCP: Rajesh Holman MD Status: DIS IN Y Location: [facility] [id number] Discharge Date and Diagnosis Date of Admission: [...] not Lorena albicans Consultations 12/24/17 15:13 Consult: Onc/Wound/terminal carman Routine Comment: Reason for Consult:: multiple wound [...] need wound vacs placed following transfer to [facility]. Lab on the date of discharge showed [...] on 12/29/17. This note was generated with [employer] dictation software. It may contain incorrect words, [...] Physician in: following DC from LTAC Disposition: Halfway Acute Care Minutes spent on discharge:: 40 Patient Condition:: Stable Medical Necessity - Tobacco Use Smoking Status: Former smoker Meaningful Use Info Meaningful Use Diagnoses (Choose all that apply): None applicable Code Visit Inpatient E AND M: 18746 Disch Hosp 12/30/17 0654 <Electronically signed by Mary Eddy DO> Date M Ami Eddy DO Cosigner Signature (if applicable): Date CC: Tresa Eddy; Yu Romero DO; Alejo Martinez MD; Rajesh Holman MD Signed CMP Collected: 12/30/2017 Status: F Source: [facility] 4:36 AM [facility] REPOSITORY Order Comment: Johnson: TYPE CODE TESTS RESULT OUT OF RANGE REFERENCE UNITS LAB L500.03513 136-145 MMOL/L Normal NA 141 LAB L500.87230 3.5-5.1 MMOL/L Normal K 4.8 LAB L500.83379 98-107 MMOL/L Normal CL 105 LAB L500.25511 21-32 MMOL/L Normal CO2 29 LAB L500.12897 5-16 MMOL/L Normal AGAP 7 LAB L500.58656 70-100 MG/DL High GLU 130 Result Comment: 70-100- Normal Fasting; 100-125 Impaired Fasting; greater than 126 on more than one result- Diabetes. ADA guidelines. Results may be falsely elevated after the administration of Sulfapyridine. Results may be falsely depressed after the administration of Sulfasalazine. LAB L500.09891 7-26 MG/DL High BUN 33 LAB L500.46319 0.510-0.950 MG/DL High CREAT 2.820 Result Comment: Patients receiving either N-Acetylcysteine (NAC) or Metamizole prior to venipuncture, may have falsely depressed results. LAB L500.86065 15-24 Low BUN/CREA 12 LAB L500.25708 6.0-8.5 GM/DL Normal TP 6.7 LAB L500.27486 3.2-5.0 GM/DL Low ALBUMIN 2.1 LAB L500.54341 2.2-4.2 GM/DL High GLOBULIN 4.6 LAB L500.70828 0.8-2.0 Low A/G RATIO 0.4 LAB L500.19749 8.5-10.1 MG/DL Low CALCIUM TOTAL 8.1 LAB L500.08756 0.2-1.0 MG/DL Normal BILI TOTAL 0.5 LAB L500.64716 8-34 U/L Normal SGOT (AST) 12 Result Comment: RESULTS MAY BE FALSELY DEPRESSED AFTER THE ADMINISTRATION OF SULFASALAZINE AND/OR SULFAPYRIDINE. LAB L500.84221 13-61 IU/L Low SGPT (ALT) 8 Result Comment: RESULTS MAY BE FALSELY DEPRESSED AFTER THE ADMINISTRATION OF SULFASALAZINE AND/OR SULFAPYRIDINE. LAB L500.13078 45-117 U/L Normal ALK PHOS 97 Performed By: #### L500.34367, L500.68301, L500.11813, L500.06174 #### [facility] [address] [place] [address] GFR EST Collected: 12/30/2017 Status: F Source: [facility] 4:36 AM [facility] REPOSITORY Order Comment: Johnson: M TYPE CODE TESTS RESULT OUT OF RANGE REFERENCE UNITS LAB L500.25467 ML/MIN Normal IF non-AFR 17 AMER LAB L500.51828 ML/MIN Normal IF 21 AMER Performed By: #### L500.79837, L500.42428, L500.41156, L500.71863 #### [facility] [place] [address] PHOS Collected: 12/30/2017 Status: F Source: [facility] 4:36 AM [facility] REPOS[facility] Order Comment: Johnson: M TYPE CODE TESTS RESULT OUT OF RANGE REFERENCE UNITS LAB L500.93375 2.5-4.9 MG/DL Normal PHOS 4.5 Performed By: #### L500.66309, L500.77596, L500.47959, L500.09063 #### [facility] [address] [place] [address] MAGNESIUM Collected: 12/30/2017 Status: F Source: [facility] 4:36 AM [facility] REPOSIT[facility] Order Comment: Johnson: M TYPE CODE TESTS RESULT OUT OF RANGE REFERENCE UNITS LAB L500.92925 1.6-2.6 MG/DL Normal MAGNESIUM 2.0 Performed By: #### L500.25905, L500.78008, L500.13970, L500.24363 #### [facility] [address] [place] [address] ZINC Collected: 12/30/2017 Status: F Source: [facility] 4:36 AM [facility] REPOSITORY Order Comment: Johnson: M TYPE CODE TESTS RESULT OUT OF RANGE REFERENCE UNITS LAB L550.99319 56-134 ug/dL Normal ZINC 71 Result Comment: Detection Limit = 5 Performed At: [facility] [address] [id number] Marycarmen Tavarez [place] [id number] Performed By: #### L550.67328 #### [facility] [address] [address] PT Collected: 12/30/2017 Status: F Source: [facility] 4:35 AM [facility] REPOS[facility] Order Comment: Johnson: M TYPE CODE TESTS RESULT OUT OF RANGE REFERENCE UNITS LAB L300.79251 0.9-1.1 High INR 1.3 Result Comment: Recommended PT INR therapeutic range for dockmaster and prophylactic therapy is 2.0 - 3.0. For heart valve and shunt patients the range is 2.5 - 3.5. LAB L300.89255 9.4-12.0 SECONDS High 13.6 PTS Performed By: #### L300.25430 #### [facility] [address] [place] [address] CBC W/DIFF Collected: 12/30/2017 Status: F Source: [facility] 4:35 AM [facility] REPOSIT[facility] Order Comment: Johnson: M TYPE CODE TESTS RESULT OUT OF RANGE REFERENCE UNITS LAB L200.66177 4.5-11.0 K/CU MM WBC Normal 5.5 LAB L200.73259 3.90-5.30 M/CU MM Low RBC 2.79 LAB L200.87277 11.5-15.5 G/DL Low HGB 8.1 LAB L200.17356 35.0-47.0 % Low HCT 26.7 LAB L200.75324 80.0-99.0 fl MCV Normal 95.7 LAB L200.84734 32.0-36.0 GM/DL Low MCHC 30.3 LAB L200.92288 11-14.5 High RDW 19.6 LAB L200.39171 9.4-12.4 MPV Normal 9.4 LAB L200.74815 150-450 K/CU MM PLT Normal 222 LAB L200.92764 45-75 % NEUTROPHILS Normal % 59.0 LAB L200.91918 Less than 2 % IMMATURE Normal GRAN % 0.2 LAB L200.62293 20-40 % Low LYMPH % 16.6 LAB L200.12855 2-10 % High MONOCYTE % 14.1 LAB L200.24292 0-5 % High EOSINOPHIL % 9.7 LAB L200.73010 0-2 % BASOPHIL % Normal 0.4 LAB L200.71399 2.0-8.3 K/CU MM NEUTROPHIL Normal ABS 3.20 LAB L200.75145 Less than 2 K/CU MM IMMATR GRAN Normal ABS 0.00 LAB L200.99974 0.9-4.4 K/CU MM LYMPH ABS Normal 0.90 LAB L200.17853 0.1-1.1 K/CU MM MONO ABS Normal 0.80 LAB L200.27472 0-0.5 K/CU MM EOS ABS Normal 0.50 LAB L200.25079 0-0.2 K/CU MM BASO ABS Normal 0.00 LAB L200.38604 Less than 1 % NRBC Normal 0.0 Performed By: #### L200.56526 #### [facility] [address] [phone] CNPTOUTREACH Observed: 12/30/2017 Status: COMPLETED Source: [place] 12:00 AM [facility] REPOSITORY Patient Outreach (FAMPWS) VICKI HERNANDEZ ([id number]) 1960 F Date Time Provider Department 12/30/17 MELVINA ALMARAZ (RN) FAMPWS During your visit today, we recorded the following information about you: Melvina Almaraz RN 12/30/2017 2:33 PM Signed PRIMARY CARE COORDINATION FOLLOW-UP NOTE Provider Action/FYI Pt at [facility] to monitor Cardiac and Renal function. Has not required any further dialysis Patient identified by name and date of . YES Spoke to JOSE Mcnamara at [facility] and rossy Lozano Summary: TC to sonMelody, states pt has not had anymore dialyses, states she had two at [facility] She was transferred to [facility] for them to closely monitor pt's heart and kidney function If pt is discharged to a SNF they will send her to [place] [facility] if possible, family doesn't want patient to go back to [facility]. Concerns: Asked Elissa GARCIA, to please call PCC during discharge planning even if pt is going to be discharged to SNF, verbalized agreement. Social Service Worker plan for next outreach: No further follow up needed at this time Signature Melvina Almaraz RN December 30, 2017 Rajesh Holman MD 12/30/2017 4:35 PM Signed noted Melvina Almaraz RN 01/05/2018 11:16 AM Signed TC to [facility], Adriana states pt is till inpatient. [...] Date Reviewed: 06/08/2017 Reviewed by: Karena Shaikh [facility] Entertainer - Fully Assessed Reason for Visit: [facility] Follow Up [7360] Prescriptions as of 12/30/2017 Sig: GABAPENTIN 400 [...] More... Obesity, morbid, BMI 50 or higher ([facility]) [E66.01]INVALID FOR* More... Hypertension [I10] INVALID FOR* More... HUNTER (obstructive sleep apnea) [G47.33] INVALID FOR* More... Pulmonary HTN (HCC) [I27.20] INVALID FOR* More... Atrial fibrillation with RVR ([facility]) [I48.91] INVALID FOR*09/23/2016 More... Heart failure, diastolic, acute ([facility]) [I50.31] INVALID FOR* More... Counseling and coordination of care [Z71.89] INVALID FOR*04/12/2015 More... Monoclonal gammopathy [D47.2] INVALID FOR* Empty sella turcica ([facility]) [E23.6] INVALID FOR* More... Uncontrolled type 2 diabetes mellitus without c*INVALID FOR*09/23/2016 Encounter Status:Closed by MELVINA ALMARAZ on 12/30/17 LTACHCR Observed: 12/29/2017 Status: UNK Source: [facility] 5:50 PM [facility] REPOSITORY DATE OF CONSULTATION: 12/30/2017 REFERRING PHYSICIAN: Amadeo Cali MD REASON FOR CONSULTATION: Azotemia, BUN 33 and creatinine 2.82. ASSESSMENT: 1. Acute kidney injury, possibly on chronic kidney insufficiency. The story goes back when she was admitted to [place] with acute renal failure thought to be [...] 57-year-old white lady who was transferred from [facility] to continue her care regarding extensive tissue damage in both legs and thigh requiring plastic surgery, wound care and Wound VAC. Apparently when she was in [place] she had acute renal failure thought to [...] [facility]: [facility] REC #: [id number] [place] [address] ADMIT DATE: DISCHARGE DATE: ATTENDING PHY: Amadeo [...] you on a daily basis. MD CONNIE Akers/[id number] SSI File#: [id number] CC: Amadeo Cali MD Verified/Reviewed by [facility] PATIENT NAME: VICKI HERNANDEZ [address] [place] MEDICAL REC #: [id number] [place] [address] ADMIT DATE: DISCHARGE DATE: ATTENDING PHY: Amadeo Cali MD PORTABLE CHEST Observed: 12/29/2017 Status: F Source: [facility] 5:50 PM [facility] PORTABLE CHEST Ordering Physician: Dylan Sutton MD [...] MARTINEZ M.D. Observed: 12/29/2017 Status: UNK Source: [facility] 5:50 PM [facility] DATE OF CONSULTATION: 12/24/2017 REFERRING PHYSICIAN: Dr. Cali. REASON FOR CONSULTATION: Antimicrobial therapy and management for severe lower extremity infection. HISTORY OF PRESENT ILLNESS: Vicki Hernandez is a morbidly obese 57-year-old female who was initially hospitalized at [facility] secondary to severe cellulitis of her bilateral lower extremities. She was subsequently transferred to [facility] for continuation of care. The patient states that she was at [place] from December 24 through the and subsequently transferred to [facility] in [place]. The patient states that she had very dry skin on her lower legs. She apparently took a warm shower, took a scrub brush, and scrubbed very intensely on her legs. She says subsequently her legs became warm and erythematous and then blistered. She became weak and was initially taken to [facility], stabilized, and transferred to [place] where she apparently did undergo some debridement. [...] heart rate 93, blood pressure 135/72, respiratory [facility] PATIENT NAME: VICKI HERNANDEZ [address] [place] MEDICAL REC #: [id number] [place] [address] ADMIT DATE: DISCHARGE DATE: CONSULTATION REPORT ATTENDING [...] with you during her hospitalization. MD ROMIE Marmolejo/[id number] SSI File#: [id number] CC: Amadeo Cali MD Verified/Reviewed by 01/04/18 0634 RAYMONDMI [facility] PATIENT NAME: VICKI HERNANDEZ [address] [place] MEDICAL REC #: [id number] [place] [address] ADMIT DATE: DISCHARGE DATE: CONSULTATION REPORT ATTENDING PHY: Amadeo Cali MD PORTABLE CHEST Observed: 12/29/2017 Status: F Source: [facility] 5:50 PM [facility] PORTABLE CHEST Ordering Physician: Cameron Ortega MD [...] M.D. LTACHCR Observed: 12/29/2017 Status: UNK Source: [facility] 5:50 PM [facility] REPOSITORY DATE [...] at home. 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 Over a month ago, the patient noticed some irritation around her lower legs. She tried to scrub all these areas and they became large blisters. These became infected. The patient was then sent over to [facility] where she stayed for sometime and because [...] renal failure, she was transferred over to [facility] on December 29, 2017. She was continued [...] HERNANDEZ [address] MEDICAL REC #: [id number] [place] [address] ADMIT DATE: DISCHARGE DATE: ATTENDING PHY: Amadeo [...] with Wound VAC therapy. Petros Becerra MD [id number] SSI File#: [id number] Verified/Reviewed by [facility] PATIENT NAME: VICKI HERNANDEZ [address] MEDICAL REC #: [id number] [place] [address] ADMIT DATE: DISCHARGE DATE: ATTENDING PHY: Amadeo Cali MD LTACHCR Observed: 12/29/2017 Status: UNK Source: [facility] 5:50 PM [facility] [place] [facility] REPOSITORY DATE OF CONSULTATION: Atrial fibrillation with rapid ventricular response. HISTORY OF PRESENT ILLNESS: Opal is a 57-year-old morbidly obese female with a past medical history significant for type 2 diabetes, pulmonary hypertension, chronic atrial fibrillation on chronic anticoagulation therapy of Coumadin, obstructive sleep apnea, essential hypertension. She was transferred from [facility] for further medical management regarding wounds that [...] creatinine stabilized. She was then transferred to [facility] due to her renal failure and her [...] Patient is currently on her Coumadin at [facility] PATIENT NAME: VICKI HERNANDEZ [address] MEDICAL REC #: [id number] [place] [id number] ADMIT DATE: DISCHARGE DATE: ATTENDING PHY: Amadeo Cali [facility]. She was taken off her digoxin, lisinopril, [...] Warren CNP dictating for Chan Velasquez MD [id number] SSI File#: [id number] CC: Amadeo Cali MD Verified/Reviewed by [facility] PATIENT NAME: VICKI HERNANDEZ [facility] [address] [facility] REC #: [id number] [place] [address] ADMIT DATE: DISCHARGE DATE: ATTENDING PHY: Amadeo Cali MD PORTABLE CHEST Observed: 12/29/2017 Status: F Source: [facility] 5:50 PM [facility] AN ADDENDUM IS INCLUDED ON THIS REPORT [...] M.D. Signed By: TIMOTHY ROJAS M.D. ADDENDUM: [id number] RAD/CHP The PICC line needs advanced to the level of the superior vena cava. This was discussed with the nurse taking care of the patient on the same date. ---- Electronic Signature on File ---- Signed By: Timothy Rojas MD [email or web address] Dictated: 01/30/2018 8:27 PM Signed: 01/30/2018 8:27 PM Reported By: TIMOTHY ROJAS M.D. Signed By: TIMOTHY ROJAS M.D. TRANSFER TO [facility] Observed: 12/29/2017 Status: F Source: [facility] 2:58 PM [facility] REPOSITORY [facility] Medical Records Department [address] [place] [address] Transfer to Extended Care MR#: [id number] Acct: [id number] Name: VICKI HERNANDEZ Rep #: [id number] : 1960 57 From: Mary Eddy DO PCP: Rajesh Holman MD Status: ADM IN VICKI HERNANDEZ (Patient) (Health Ins. Claim No.) (Day of Discharge to Facility) Certification of patient admission REQUIRED AT TIME OF ADMISSION. I CERTIFY THAT POST-HOSPITAL ECF SERVICES ARE REQUIRED TO BE GIVEN ON AN IN-PATIENT BASIS BECAUSE OF THE ABOVE NAMED PATIENT'S NEED FOR SNF CARE ON A CONTINUING BASIS FOR THE [...] Eddy DO> Date M AldoZiggy Eddy CC: Chalrie Powell MD; Yu Romero DO; Alejo Martinez MD; Rajesh Holman MD Signed BEDSIDE GLUCOSE Collected: 12/29/2017 Status: F Source: [place] 12:15 PM [facility] REPOSITORY TYPE CODE TESTS RESULT OUT OF REFERENCE UNITS RANGE LAB L501.080 70-110 mg/dL High BEDSIDE GLU 157 Result Comment: MANAGEMENT OF PATIENT CARE PER NURSING PROTOCOL Performed By: #### L501.080 #### [facility] Point of Care [address] [place] [address] BEDSIDE GLUCOSE Collected: 12/29/2017 Status: F Source: [place] 6:42 AM [facility] REPOSITORY TYPE CODE TESTS RESULT OUT OF REFERENCE UNITS RANGE LAB L501.080 70-110 mg/dL High BEDSIDE GLU 130 Result Comment: MANAGEMENT OF PATIENT CARE PER NURSING PROTOCOL Performed By: #### L501.080 #### [facility] Point of Care [address] [place] [address] RENAL PROFILE Collected: 12/29/2017 Status: F Source: [place] 4:15 AM [facility] REPOSITORY TYPE CODE TESTS RESULT OUT OF [...] CO2 31.0 Performed By: #### L500.3600 #### [facility] [address] [place], [place], [address] CBC W/DIFF, AUTOMATED Collected: 12/29/2017 Status: F Source: [place] 4:15 AM [facility] REPOSITORY TYPE CODE TESTS RESULT OUT OF [...] Normal 1+ Performed By: #### L100.0100 #### [facility] [address] [facility] [place], [address] PROTHROMBIN TIME W/INR Collected: 12/29/2017 Status: F Source: [place] 4:15 AM [facility] REPOSITORY TYPE CODE TESTS RESULT OUT OF RANGE REFERENCE UNITS LAB L300.4150 11.7-14.9 SECONDS High PROTIME 18.2 LAB L300.4200 Normal INR 1.5 Performed By: #### L300.3900 #### [facility] [address] [facility] [facility] [address] BEDSIDE GLUCOSE Collected: 12/28/2017 Status: F Source: [place] 9:18 PM [facility] REPOSITORY TYPE CODE TESTS RESULT OUT OF REFERENCE UNITS RANGE LAB L501.080 70-110 mg/dL High BEDSIDE GLU 179 Result Comment: MANAGEMENT OF PATIENT CARE PER NURSING PROTOCOL Performed By: #### L501.080 #### [facility] Point of Care [address] [place] [address] BEDSIDE GLUCOSE Collected: 12/28/2017 Status: F Source: [place] 4:53 PM [facility] REPOSITORY TYPE CODE TESTS RESULT OUT OF REFERENCE UNITS RANGE LAB L501.080 70-110 mg/dL High BEDSIDE GLU 160 Result Comment: MANAGEMENT OF PATIENT CARE PER NURSING PROTOCOL Performed By: #### L501.080 #### [facility] Point of Care [address] [place] [address] BEDSIDE GLUCOSE Collected: 12/28/2017 Status: F Source: [place] 11:24 AM [facility] REPOSITORY TYPE CODE TESTS RESULT OUT OF REFERENCE UNITS RANGE LAB L501.080 70-110 mg/dL High BEDSIDE GLU 173 Result Comment: MANAGEMENT OF PATIENT CARE PER NURSING PROTOCOL Performed By: #### L501.080 #### [facility] Point of Care [address] [place], [place] [address] BEDSIDE GLUCOSE Collected: 12/28/2017 Status: F Source: [place] 6:50 AM [facility] REPOSITORY TYPE CODE TESTS RESULT OUT OF REFERENCE UNITS RANGE LAB L501.080 70-110 mg/dL High BEDSIDE GLU 115 Result Comment: MANAGEMENT OF PATIENT CARE PER NURSING PROTOCOL Performed By: #### L501.080 #### [facility] Point of Care [address] [facility] [place], [place] [address] CBC W/DIFF, AUTOMATED Collected: 12/28/2017 Status: F Source: [place] 5:40 AM [facility] REPOSITORY TYPE CODE TESTS RESULT OUT OF [...] Lymph 1.35 Performed By: #### L100.0100 #### [facility] [address] [facility] [place], [address] PROTHROMBIN TIME W/INR Collected: 12/28/2017 Status: F Source: [place] 5:40 AM [facility] REPOSITORY TYPE CODE TESTS RESULT OUT OF RANGE REFERENCE UNITS LAB L300.4150 11.7-14.9 SECONDS High PROTIME 19.7 LAB L300.4200 Normal INR 1.7 Performed By: #### L300.3900 #### [facility] [address] [place], [address] DIGOXIN LEVEL Collected: 12/28/2017 Status: F Source: [place] 5:40 AM [facility] REPOSITORY TYPE CODE TESTS RESULT OUT OF RANGE REFERENCE UNITS LAB L501.7510 0.80-2.00 ng/mL Normal DIG 1.72 Performed By: #### L501.7510, L501.8850 #### [facility] [place], [address] VANCOMYCIN, RANDOM Collected: 12/28/2017 Status: F Source: [place] LEVEL 5:40 AM [facility] REPOSITORY TYPE CODE TESTS RESULT OUT OF REFERENCE UNITS RANGE LAB L501.8850 0.0-15.0 ug/mL High VANCO, RANDOM 37.3 Result Comment: VANCOMYCIN STANDARD DRUG THERAPY: CRITICAL VALUE IS > 15.0 mg/L VANCOMYCIN HIGH INTENSITY THERAPY: CRITICAL VALUE IS > 20.0 mg/L PLEASE CONTACT PHARMACY SERVICES (#[id number]) FOR INTERPRETATION OF RESULTS. THIS RESULT DOES NOT REPRESENT A PEAK OR TROUGH LEVEL FOR THIS DRUG. Performed By: #### L501.7510, L501.8850 #### [facility] [address] [place], [address] BEDSIDE GLUCOSE Collected: 12/27/2017 Status: F Source: [place] 10:31 PM [facility] REPOSITORY TYPE CODE TESTS RESULT OUT OF REFERENCE UNITS RANGE LAB L501.080 70-110 mg/dL High BEDSIDE GLU 147 Result Comment: MANAGEMENT OF PATIENT CARE PER NURSING PROTOCOL Performed By: #### L501.080 #### [facility] Point of Care [address] [place] [address] BEDSIDE GLUCOSE Collected: 12/27/2017 Status: F Source: [place] 4:23 PM [facility] REPOSITORY TYPE CODE TESTS RESULT OUT OF REFERENCE UNITS RANGE LAB L501.080 70-110 mg/dL High BEDSIDE GLU 158 Result Comment: MANAGEMENT OF PATIENT CARE PER NURSING PROTOCOL Performed By: #### L501.080 #### [facility] Point of Care [address] [place] [address] 12 LEAD ELECTROCARDIOGRAM Observed: 12/27/2017 Status: F Source: [place] 2:38 PM [facility] REPOSITORY [facility] Cardiovascular Services [address] [address] 12 Lead EKG 12/24/17 1532 MR#: [id number] Acct: [id number] Name: VICKI HERNANDEZ Rep #: [id number] : 1960 57 From: Oral Suazo MD [...] has shortened Confirmed by ORAL SUAZO MD ([id number]), acquisition editor KERRY HERNANDEZ ([id number]) on 12/27/2017 2:38:05 PM Referred By: Silviano Vasquez Confirmed By:ORAL SUAZO MD 12/27/17 1438 Date Oral Suazo MD CC: Tresa Eddy; Silviano Vasquez DO; Dami Kim MD; Rajesh Holman MD Signed Observed: 12/27/2017 Status: F Source: [place] CULTURE, SURGERY DEEP 2:30 PM [facility] WOUND REPOSITORY List Antibiotics Last 48 Hours? [...] <=1 S (NF) indicates non-formulary drug at [facility]. Approval by Infectious Disease Specialist required [...] <=1 S (NF) indicates non-formulary drug at [facility]. Approval by Infectious Disease Specialist required before non-formulary drugs may be ordered and/or dispensed. Cult, Anaerobic No anaerobic bacteria isolated. Performed By: #### M100.1550 #### [facility] [address] [place], [address] BEDSIDE GLUCOSE Collected: 12/27/2017 Status: F Source: [place] 11:51 AM [facility] REPOSITORY TYPE CODE TESTS RESULT OUT OF REFERENCE UNITS RANGE LAB L501.080 70-110 mg/dL High BEDSIDE GLU 140 Result Comment: MANAGEMENT OF PATIENT CARE PER NURSING PROTOCOL Performed By: #### L501.080 #### [facility] Point of Care [address] [place], [place] [address] RENAL PROFILE Collected: 12/27/2017 Status: F Source: [place] 5:05 AM [facility] REPOSITORY TYPE CODE TESTS RESULT OUT OF [...] CO2 30.0 Performed By: #### L500.3600 #### [facility] [address] [place], [place], [address] CBC W/DIFF, AUTOMATED Collected: 12/27/2017 Status: F Source: [place] 5:05 AM [facility] REPOSITORY TYPE CODE TESTS RESULT OUT OF [...] Lymph 1.03 Performed By: #### L100.0100 #### [facility] [address] [place], [place], [address] PROTHROMBIN TIME W/INR Collected: 12/27/2017 Status: F Source: [place] 5:05 AM [facility] REPOSITORY TYPE CODE TESTS RESULT OUT OF RANGE REFERENCE UNITS LAB L300.4150 11.7-14.9 SECONDS High PROTIME 23.6 LAB L300.4200 Normal INR 2.1 Performed By: #### L300.3900 #### [facility] [address] [place], [address] DIGOXIN LEVEL Collected: 12/27/2017 Status: F Source: [place] 5:05 AM [facility] REPOSITORY TYPE CODE TESTS RESULT OUT OF RANGE REFERENCE UNITS LAB L501.7510 0.80-2.00 ng/mL Normal DIG 1.76 Performed By: #### L501.7510, L501.8850 #### [facility] [address] [place], [address] VANCOMYCIN, RANDOM Collected: 12/27/2017 Status: F Source: [place] LEVEL 5:05 AM [facility] REPOSITORY TYPE CODE TESTS RESULT OUT OF REFERENCE UNITS RANGE LAB L501.8850 0.0-15.0 ug/mL High VANCO, RANDOM 48.5 Result Comment: VANCOMYCIN STANDARD DRUG THERAPY: CRITICAL VALUE IS > 15.0 mg/L VANCOMYCIN HIGH INTENSITY THERAPY: CRITICAL VALUE IS > 20.0 mg/L PLEASE CONTACT PHARMACY SERVICES (#[id number]) FOR INTERPRETATION OF RESULTS. THIS RESULT DOES NOT REPRESENT A PEAK OR TROUGH LEVEL FOR THIS DRUG. Performed By: #### L501.7510, L501.8850 #### [facility] [address] [place], [place], [address] BEDSIDE GLUCOSE Collected: 12/26/2017 Status: F Source: [place] 11:27 PM [facility] REPOSITORY TYPE CODE TESTS RESULT OUT OF REFERENCE UNITS RANGE LAB L501.080 70-110 mg/dL High BEDSIDE GLU 151 Result Comment: MANAGEMENT OF PATIENT CARE PER NURSING PROTOCOL Performed By: #### L501.080 #### [facility] Point of Care [address] [place], [place] [address] BEDSIDE GLUCOSE Collected: 12/26/2017 Status: F Source: [place] 6:02 PM [facility] REPOSITORY TYPE CODE TESTS RESULT OUT OF REFERENCE UNITS RANGE LAB L501.080 70-110 mg/dL High BEDSIDE GLU 128 Result Comment: MANAGEMENT OF PATIENT CARE PER NURSING PROTOCOL Performed By: #### L501.080 #### [facility] Point of Care [address] [place], [place] [address] URINALYSIS, COMPLETE Collected: 12/26/2017 Status: F Source: [place] 12:30 PM [facility] REPOSITORY Order Comment: COLOR OF URINE MAY AFFECT DIPSTICK RESULTS. How was Urine Obtained? PARKING LOT SUPERVISOR TO SPECIFY TYPE CODE TESTS RESULT OUT [...] AMORPHOUS 3+ Performed By: #### L400.0001 #### [facility] [address] [place], [address] Observed: 12/26/2017 Status: F Source: [place] CULTURE, URINE 12:30 PM [facility] REPOSITORY Urine Culture Further studies to follow. ORGANISM 1: Yeast, not Lorena albicans Glendo Count >100,000 Performed By: #### M100.0650 #### [facility] [address] [place], [address] BEDSIDE GLUCOSE Collected: 12/26/2017 Status: F Source: [place] 10:47 AM [facility] REPOSITORY TYPE CODE TESTS RESULT OUT OF RANGE REFERENCE UNITS LAB L501.080 70-110 mg/dL Normal BEDSIDE GLU 93 Result Comment: MANAGEMENT OF PATIENT CARE PER NURSING PROTOCOL Performed By: #### L501.080 #### [facility] Point of Care [address] [place] [address] VANCOMYCIN, RANDOM Collected: 12/26/2017 Status: F Source: [place] LEVEL 6:40 AM [facility] REPOSITORY TYPE CODE TESTS RESULT OUT OF REFERENCE UNITS RANGE LAB L501.8850 0.0-15.0 ug/mL High VANCO, RANDOM 53.9 Result Comment: VANCOMYCIN STANDARD DRUG THERAPY: CRITICAL VALUE IS > 15.0 mg/L VANCOMYCIN HIGH INTENSITY THERAPY: CRITICAL VALUE IS > 20.0 mg/L PLEASE CONTACT PHARMACY SERVICES (#8890) FOR INTERPRETATION OF RESULTS. THIS RESULT DOES NOT REPRESENT A PEAK OR TROUGH LEVEL FOR THIS DRUG. Performed By: #### L501.8850 #### [facility] [address] [place], [place], [address] RENAL PROFILE Collected: 12/26/2017 Status: F Source: [place] 4:50 AM [facility] REPOSITORY TYPE CODE TESTS RESULT OUT OF [...] CO2 29.0 Performed By: #### L500.3600 #### [facility] [address] [facility] [place], [place], [address] DIGOXIN LEVEL Collected: 12/26/2017 Status: F Source: [place] 4:50 AM [facility] REPOSITORY TYPE CODE TESTS RESULT OUT OF RANGE REFERENCE UNITS LAB L501.7510 0.80-2.00 ng/mL Normal DIG 1.91 Performed By: #### L501.7510, L501.8850 #### [facility] [address] [facility] [place], [place], [address] VANCOMYCIN, RANDOM Collected: 12/26/2017 Status: C Source: [place] LEVEL 4:50 AM [facility] REPOSITORY TYPE CODE TESTS RESULT OUT OF RANGE REFERENCE UNITS LAB L501.8850 0.0-15.0 ug/mL Test Normal VANCO, not performed RANDOM Result Comment: AMENDED REPORT 12/26/17 0751 VANCO, RANDOM previously reported as: Test not performed ug/mL Performed By: #### L501.7510, L501.8850 #### [facility] [address] [facility] [place], [place], [address] PROTHROMBIN TIME W/INR Collected: 12/26/2017 Status: F Source: [place] 4:50 AM [facility] REPOSITORY TYPE CODE TESTS RESULT OUT OF RANGE REFERENCE UNITS LAB L300.4150 11.7-14.9 SECONDS High PROTIME 23.4 LAB L300.4200 Normal INR 2.1 Performed By: #### L300.3900 #### [facility] [address] [place], [place], [address] BEDSIDE GLUCOSE Collected: 12/25/2017 Status: F Source: [place] 10:57 PM [facility] REPOSITORY TYPE CODE TESTS RESULT OUT OF RANGE REFERENCE UNITS LAB L501.080 70-110 mg/dL Normal BEDSIDE GLU 101 Result Comment: MANAGEMENT OF PATIENT CARE PER NURSING PROTOCOL Performed By: #### L501.080 #### [facility] Point of Care [address] [place] [address] BEDSIDE GLUCOSE Collected: 12/25/2017 Status: F Source: [place] 5:36 PM [facility] REPOSITORY TYPE CODE TESTS RESULT OUT OF RANGE REFERENCE UNITS LAB L501.080 70-110 mg/dL Normal BEDSIDE GLU 71 Result Comment: MANAGEMENT OF PATIENT CARE PER NURSING PROTOCOL Performed By: #### L501.080 #### [facility] Point of Care [address] [place] [address] DIGOXIN LEVEL Collected: 12/25/2017 Status: F Source: [place] 12:10 PM [facility] REPOSITORY TYPE CODE TESTS RESULT OUT OF RANGE REFERENCE UNITS LAB L501.7510 0.80-2.00 ng/mL High alert DIG 2.12 Result Comment: Critical Result(s) Called at: 13:54:43 12/25/2017 by: Connor Garcia to Marleny HERNANDEZ Digoxin concentrations greater than 2.00 ng/mL are potentially toxic. Performed By: #### L501.7510, L501.8850 #### [facility] [address] [place], [address] VANCOMYCIN, RANDOM Collected: 12/25/2017 Status: F Source: [place] LEVEL 12:10 PM [facility] REPOSITORY TYPE CODE TESTS RESULT OUT OF REFERENCE UNITS RANGE LAB L501.8850 0.0-15.0 ug/mL High VANCO, RANDOM 64.4 Result Comment: VANCOMYCIN STANDARD DRUG THERAPY: CRITICAL VALUE IS > 15.0 mg/L VANCOMYCIN HIGH INTENSITY THERAPY: CRITICAL VALUE IS > 20.0 mg/L PLEASE CONTACT PHARMACY SERVICES (#[id number]) FOR INTERPRETATION OF RESULTS. THIS RESULT DOES NOT REPRESENT A PEAK OR TROUGH LEVEL FOR THIS DRUG. Performed By: #### L501.7510, L501.8850 #### [facility] [address] [place], [place], [address] BEDSIDE GLUCOSE Collected: 12/25/2017 Status: F Source: [place] 9:58 AM [facility] REPOSITORY TYPE CODE TESTS RESULT OUT OF RANGE REFERENCE UNITS LAB L501.080 70-110 mg/dL Normal BEDSIDE GLU 80 Result Comment: Dr Cazares Followed Repeat Test MANAGEMENT OF PATIENT CARE PER NURSING PROTOCOL Performed By: #### L501.080 #### [facility] Point of Care [address] [place] [address] EMERGENCY REPORT Observed: 12/25/2017 Status: F Source: [facility] GOD[facility] 8:41 AM [facility] EMERGENCY ROOM REPORT NAME ACCOUNT SEX AGE ADMIT DISCHARGE PT MED. RECORD# NUMBER DATE DATE TYPE MARY [id number] F 57 12/24/17 12/24/17 3 VICKI Edouard [address] ROOM: ER DATE OF : 1960 DICTATING PHYSICIAN: Timothy Delgado HISTORY OF PRESENT ILLNESS: The patient is a 57-year-old white female who has been complaining of shortness of breath and weakness since yesterday. She was sent here from the [facility] which is [facility] because her BUN and creatinine has been increasing. The patient was treated at [facility] two weeks ago for a MRSA infection in her legs and she did have surgery at that time. She has a wound VAC on and was felt to be too weak and incapacitated to go home, so she has been at [facility] since her discharge from [facility]. The son has noticed at times she has been twitching and times she has been hallucinating. Her BUN and creatinine were elevated at the [facility] yesterday. Her digoxin level was elevated yesterday. Today those values were even higher, so she was sent here for an evaluation. PAST MEDICAL HISTORY: Atrial fibrillation, congestive heart failure, diabetes mellitus type 1. She was just recently treated two weeks ago for MRSA infection in her legs requiring surgery and wound VAC. Dr. Martinez did her surgery over at [place] and he is under the plastic surgery service. ALLERGIES: Pentazocine, codeine, phenobarbital, Latex and nuts. SOCIAL HISTORY: She is presently a resident of a [facility], [facility]. She denies the use of alcohol or [...] that it will have to come from [place]. I did discuss the case with Dr. Purcell. He feels that the patient needs dialysis. I spoke with the hospitalist at [facility], Dr. Pisano, and he has accepted the patient for admission at [facility]. He was agreeable with the Digibind, although we may have to give it to her there, since I think she will be transferred by the time we get it available here. I did look at her blood work from this morning. I am still waiting on the blood work I ordered. Hemoglobin from the [facility] done at 6:00 a.m. was 8.9. INR [...] Presently, the patient will be transported to [facility] for admission under the hospitalist service and the appropriate consultations. She is scheduled to see Dr. May who is a white spooler there. The white spooler that she used to see there at [facility] has since moved onto another hospital. Page 2 of 3 VICKI HERNANDEZ Emergency Room Report Dictated By: Timothy Delgado DO 12/24/17 12:04 JOB #: [id number] Transcribed By: ariel 12/25/17 01:13 Electronically signed by: E-Sign: Dr. Timothy Delgado D.O. 12/25/17 08:40 Page 3 of 3 VICKI HERNANDEZ Emergency Room Report CONSULTATION Observed: 12/25/2017 Status: F Source: [place] 5:32 AM [facility] REPOSITORY [facility] Medical Records Department [address] [place] [address] Consultation 12/24/17 1610 MR#: [id number] Acct: [id number] Name: VICKI HERNANDEZ Rep #: [id number] : 1960 57 From: Charlie Powell MD PCP: Rajesh Holman MD Status: [facility] (1) Acute kidney injury [...] medical history listed below, who presented to [facility] on 12/24/2017 secondary to bradycardia. Patient had recently been to [facility] in November with extensive lower extremity nonhealing ulcers that required debridement and wound VAC. Patient was discharged to a [facility] on IV vancomycin. Per the patient's son, approximately 1 week ago patient started having periods of confusion, hallucinations and muscle twitching. Patient was from [facility] and labs were drawn yesterday showing an elevated vancomycin level and creatinine. No action was taken except for a repeat draw this morning. Patient was noted to have a digoxin level of 3, potassium of 5.5 and a creatinine of 7.2. Patient was transported to [facility] for evaluation At [facility], patient was bradycardic into the 20s with hypotension. Patient was given IV fluids and atropine with some improvement. Patient was then transferred to [facility] for possible dialysis. On presentation, patient was [...] section. Psychiatric History: No pertinent psych hx SYSTEMS SOFTWARE MANAGER History: No pertinent SYSTEMS SOFTWARE MANAGER history Smoking Status: Former smoker - *Family [...] collaboration with care team Code Visit 9xxxx: [id number] Critical care first hour 12/25/17 0532 <Electronically signed by Charlie Powell MD> Date Charlie Powell MD Cosigner Signature (if applicable): Date CC: Charlie Powell MD; Yu Romero DO; Silviano Vasquez DO; Rajesh Holman MD Signed CBC-COMPLETE BLOOD CNT Collected: 12/25/2017 Status: F Source: [place] NO DIFF 4:15 AM [facility] REPOSITORY TYPE CODE TESTS RESULT OUT OF [...] 8.6 Performed By: #### L100.0500, L100.4500 #### [facility] [address] [place], [address] DIFFERENTIAL COMMENT Collected: 12/25/2017 Status: F Source: [place] 4:15 AM [facility] REPOSITORY TYPE CODE TESTS RESULT OUT OF RANGE REFERENCE UNITS LAB L100.4500 Normal SMEAR COMMENT Result Comment: 2+ ANISO 1+ MACROCYTES RARE POLY Performed By: #### L100.0500, L100.4500 #### [facility] [address] [place], [place], [address] PROTHROMBIN TIME W/INR Collected: 12/25/2017 Status: F Source: [place] 4:15 AM [facility] REPOSITORY TYPE CODE TESTS RESULT OUT OF RANGE REFERENCE UNITS LAB L300.4150 11.7-14.9 SECONDS High PROTIME 29.5 LAB L300.4200 Normal INR 2.8 Performed By: #### L300.3900 #### [facility] [address] [place], [place], [address] RENAL PROFILE Collected: 12/25/2017 Status: F Source: [place] 4:15 AM [facility] REPOSITORY Order Comment: 'TROP' Serial specimen #1, [...] 28.0 Performed By: #### L500.3600, L501.4010 #### [facility] [address] [place], [address] TROPONIN-I Collected: 12/25/2017 Status: F Source: [place] 4:15 AM [facility] REPOSITORY Order Comment: 'TROP' Serial specimen #1, #2, #3, or #4: 4 TYPE CODE TESTS RESULT OUT OF RANGE REFERENCE UNITS LAB L501.4010 <0.06 ng/mL Normal < 0.02 TROPONIN-I Result Comment: TROPONIN-I EXPECTED VALUES <0.05 NEGATIVE 0.06 - 0.59 AT RISK OF ND > OR = 0.60 SUGGEST ND Performed By: #### L500.3600, L501.4010 #### [facility] [address] [place], [address] BEDSIDE GLUCOSE Collected: 12/24/2017 Status: F Source: [place] 11:32 PM [facility] REPOSITORY TYPE CODE TESTS RESULT OUT OF RANGE REFERENCE UNITS LAB L501.080 70-110 mg/dL Normal BEDSIDE GLU 74 Result Comment: MANAGEMENT OF PATIENT CARE PER NURSING PROTOCOL Performed By: #### L501.080 #### [facility] Point of Care [address] [place] [address] TROPONIN-I Collected: 12/24/2017 Status: F Source: [place] 11:30 PM [facility] REPOSITORY Order Comment: 'TROP' Serial specimen #1, #2, #3, or #4: 3 TYPE CODE TESTS RESULT OUT OF RANGE REFERENCE UNITS LAB L501.4010 <0.06 ng/mL Normal < 0.02 TROPONIN-I Result Comment: TROPONIN-I EXPECTED VALUES <0.05 NEGATIVE 0.06 - 0.59 AT RISK OF ND > OR = 0.60 SUGGEST ND Performed By: #### L501.4010 #### [facility] [address] [place], [address] BEDSIDE GLUCOSE Collected: 12/24/2017 Status: F Source: [place] 11:01 PM [facility] REPOSITORY TYPE CODE TESTS RESULT OUT OF REFERENCE UNITS RANGE LAB L501.080 70-110 mg/dL Low BEDSIDE GLU 65 Result Comment: MANAGEMENT OF PATIENT CARE PER NURSING PROTOCOL Performed By: #### L501.080 #### [facility] Point of Care [address] [place], [place] [address] HEPATITIS B SURFACE Collected: 12/24/2017 Status: F Source: [place] AG 8:12 PM [facility] REPOSITORY Order Comment: Order Date: 12/24/17 Comments: dialysis order TYPE CODE TESTS RESULT OUT OF RANGE REFERENCE UNITS LAB L3100.0400 Negative Normal HB Negative SURF AG Result Comment: Performed at: - [facility] [id number] Track Service Person: Sly Warren PhD, Phone: [phone] Performed By: #### L3100.0390 #### [facility] (refer to report for specific site) refer to report for address and phone number TROPONIN-I Collected: 12/24/2017 Status: F Source: [place] 7:58 PM [facility] REPOSITORY Order Comment: 'TROP' Serial specimen #1, #2, #3, or #4: 2 TYPE CODE TESTS RESULT OUT OF RANGE REFERENCE UNITS LAB L501.4010 <0.06 ng/mL Normal < 0.02 TROPONIN-I Result Comment: TROPONIN-I EXPECTED VALUES <0.05 NEGATIVE 0.06 - 0.59 AT RISK OF ND > OR = 0.60 SUGGEST ND Performed By: #### L501.4010 #### [facility] [place], [place], [address] DIGOXIN LEVEL Collected: 12/24/2017 Status: F Source: [place] 7:58 PM [facility] REPOSITORY Order Comment: Comments: After completion of hemodialysis TYPE CODE TESTS RESULT OUT OF RANGE REFERENCE UNITS LAB L501.7510 0.80-2.00 ng/mL High alert DIG 2.27 Result Comment: Critical Result(s) Called at: 21:46:11 12/24/2017 by: Sahara major TO [facility] Digoxin concentrations greater than 2.00 ng/mL are potentially toxic. Performed By: #### L501.7510, L501.8850 #### [facility] [address] [place], [address] VANCOMYCIN, RANDOM Collected: 12/24/2017 Status: F Source: [place] LEVEL 7:58 PM [facility] REPOSITORY Order Comment: Comments: After completion of hemodialysis TYPE CODE TESTS RESULT OUT OF REFERENCE UNITS RANGE LAB L501.8850 0.0-15.0 ug/mL High VANCO, RANDOM 75.6 Result Comment: Critical Result(s) Called at: 21:49:14 12/24/2017 by: Sahara major TO [facility] VANCOMYCIN STANDARD DRUG THERAPY: CRITICAL VALUE IS > 15.0 mg/L VANCOMYCIN HIGH INTENSITY THERAPY: CRITICAL VALUE IS > 20.0 mg/L PLEASE CONTACT PHARMACY SERVICES (#[id number]) FOR INTERPRETATION OF RESULTS. THIS RESULT DOES NOT REPRESENT A PEAK OR TROUGH LEVEL FOR THIS DRUG. Performed By: #### L501.7510, L501.8850 #### [facility] [address] [place], [address] URINE SODIUM Collected: 12/24/2017 Status: F Source: [place] 6:30 PM [facility] REPOSITORY TYPE CODE TESTS RESULT OUT OF RANGE REFERENCE UNITS LAB L501.5500 Not Establ. mmol/L Normal UR NA 52 Performed By: #### L501.5500 #### [facility] [address] [place], [address] CREATININE, URINE Collected: 12/24/2017 Status: F Source: [place] (RANDOM) 6:30 PM [facility] REPOSITORY TYPE CODE TESTS RESULT OUT OF RANGE REFERENCE UNITS LAB L501.1200 NO RANGE EST. mg/dL Normal UR CREAT 121.00 Performed By: #### L501.1200 #### [facility] [address] [place], [address] URINALYSIS, COMPLETE Collected: 12/24/2017 Status: F Source: [place] 6:00 PM [facility] REPOSITORY Order Comment: COLOR OF URINE MAY AFFECT DIPSTICK RESULTS. How was Urine Obtained? PARKING LOT SUPERVISOR TO SPECIFY TYPE CODE TESTS RESULT OUT [...] Normal YEAST-URINE Performed By: #### L400.0001 #### [facility] [address] [facility] [place], [address] CONSULTATION Observed: 12/24/2017 Status: F Source: [place] 5:58 PM [facility] REPOSITORY [facility] Medical Records Department [address] [place] [address] Consultation 12/24/17 1725 MR#: [id number] Acct: [id number] Name: VICKI HERNADNEZ Rep #: [id number] : 1960 57 From: Yu Romero DO [...] year old morbidly obese female transferred from [facility] for acute renal failure, digoxin toxicity, severe bradycardia with altered mental status. She presented with confusion, hallucinations since the weekend with muscle twitching noticed by the family. She was transferred to the [facility] intensive care unit today for further management and possible dialysis. She was recently hospitalized for multiple decubitus ulcers on her lower extremities posteriorly underwent debridement with wound vac placement. She was subsequently sent to [facility] with IV antibiotic therapy and continued wound [...] status is much improved upon admit to [facility]. Creatinine during last hospitalization was normal at [...] 1,000 mls @ 100 mls/hr IV .Q10H [facility] Last Admin: 12/24/17 16:34 Dose: 100 mls/hr Magnesium Hydroxide (Milk Of Magnesia) 30 ml PO DAILY PRN PRN PRN Reason: Constipation Nutritional Formula (Lactose Free) (Glucerna Shake) 120 ml PO 4X/DAY [facility] Last Admin: 12/24/17 17:18 Dose: Not Given [...] problems, Confusion - Improved since transfer to [facility], Tremor - Twitching of upper extremities, - [...] involved including infection, bleeding, hypotension with subsequent ND or stroke event. They agreed to proceed [...] pulmonary hypertension with noncompliance with CPAP. 12/24/17 5689 <Electronically signed by Yu Romero DO> Date Yu Romero DO Cosigner Signature (if applicable): Date CC: Charlie Powell MD; Yu Romero DO; Silviano Vasquez DO; Rajesh Holman MD Signed HISTORY AND PHYSICAL Observed: 12/24/2017 Status: F Source: [place] EXAM 4:10 PM [facility] REPOSITORY [facility] Medical Records Department [address] [place] [address] History and Physical 12/24/17 1517 MR#: [id number] Acct: [id number] Name: VICKI HERNANDEZ Rep #: [id number] : 1960 57 From: Dami Kim MD [...] admission from December 06- and discharged to [facility] on IV vancomycin. As per the son, patient was having periods of confusion, weakness, hallucinations and muscle twitching for last 5-7 days. During labs done in [facility], patient was found to have kidney failure with high BUN, creatinine and dig level. As per the EMS note, patient was also short of breath and weak found to have bradycardia. Patient was transferred to [facility] ER, patient heart rate dropped to 17-40/M [...] section. Psychiatric History: No pertinent psych hx SYSTEMS SOFTWARE MANAGER History: No pertinent SYSTEMS SOFTWARE MANAGER history Smoking Status: Former smoker - *Family [...] admission from December 06- and discharged to [facility] on IV vancomycin. As per the son, patient was having periods of confusion, weakness, hallucinations and muscle twitching for last 5-7 days. During labs done in [facility], patient was found to have kidney failure with high BUN, creatinine and dig level. As per the EMS note, patient was also short of breath and weak found to have bradycardia. Patient was transferred to [facility] ER, patient heart rate dropped to 17-40/M [...] At times, patient has got sinus pause. Salvage Mechanic and life tester outboard motors was consulted. The consent was taken for dialysis catheter insertion for emergent dialysis; right IJ dialysis catheter was inserted by stripper black and white. Discussed with the family member including patient's [...] the present care. Total time spent in [id number] encounter, review of lab from ER, discussion with the consultants, Dr. Powell and Dr. Romero and with the family member, more than 50 minutes The present care discussed with the patient's son and other family members. This note was generated with [employer] dictation software. Every effort was made to ensure accuracy, however computerized small craft operator mistakes may persist. [] Code Visit Inpatient E AND M: 52008 Init Hosp L3 12/24/17 1610 <Electronically signed by Dami Kim MD> Date Dami Kim MD Cosigner Signature: Date (if applicable) CC: Dami Kim MD; Rajesh Holman MD Signed CBC-COMPLETE BLOOD CNT Collected: 12/24/2017 Status: F Source: [place] NO DIFF 4:10 PM [facility] REPOSITORY TYPE CODE TESTS RESULT OUT OF [...] Performed By: #### L100.0500, L101.9900, L100.4500 #### [facility] [address] [place], [place], [address] ERYTHROCYTE SED RATE Collected: 12/24/2017 Status: F Source: [place] 4:10 PM [facility] REPOSITORY TYPE CODE TESTS RESULT OUT OF RANGE REFERENCE UNITS LAB L102.0000 0-30 mm/hr High SED RATE 103 Performed By: #### L100.0500, L101.9900, L100.4500 #### [facility] [address] [place], [place], [address] DIFFERENTIAL COMMENT Collected: 12/24/2017 Status: F Source: [place] 4:10 PM [facility] REPOSITORY TYPE CODE TESTS RESULT OUT OF RANGE REFERENCE UNITS LAB L100.4500 Normal SMEAR COMMENT SCANNED Result Comment: 2+ ANISOCYTOSIS 1+ MACROCYTOSIS ADEQUATE PLATELETS NOTED ON SLIDE REVIEW Performed By: #### L100.0500, L101.9900, L100.4500 #### [facility] [address] [place], [place], [address] PROTHROMBIN TIME W/INR Collected: 12/24/2017 Status: F Source: [place] 4:10 PM [facility] REPOSITORY TYPE CODE TESTS RESULT OUT OF RANGE REFERENCE UNITS LAB L300.4150 11.7-14.9 SECONDS High PROTIME 31.4 LAB L300.4200 Normal INR 3.0 Performed By: #### L300.3900, L300.4310 #### [facility] [address] [place], [place], [address] PARTIAL THROMBOPLAST Collected: 12/24/2017 Status: F Source: [place] TIME 4:10 PM [facility] REPOSITORY TYPE CODE TESTS RESULT OUT OF REFERENCE UNITS RANGE LAB L300.4310 24.1-36.2 Seconds High PTT 48.3 Performed By: #### L300.3900, L300.4310 #### [facility] [address] [place], [address] COMPREHENSIVE METABOLIC Collected: 12/24/2017 Status: F Source: [place] PROFIL 4:10 PM [facility] REPOSITORY Order Comment: 'TROP' Serial specimen #1, [...] Performed By: #### L500.4050, L501.4010, L501.5200 #### [facility] [address] [facility] [place], [place], [address] TROPONIN-I Collected: 12/24/2017 Status: F Source: [place] 4:10 PM [facility] REPOSITORY Order Comment: 'TROP' Serial specimen #1, #2, #3, or #4: 1 TYPE CODE TESTS RESULT OUT OF RANGE REFERENCE UNITS LAB L501.4010 <0.06 ng/mL Normal < 0.02 TROPONIN-I Result Comment: TROPONIN-I EXPECTED VALUES <0.05 NEGATIVE 0.06 - 0.59 AT RISK OF ND > OR = 0.60 SUGGEST ND Performed By: #### L500.4050, L501.4010, L501.5200 #### [facility] [address] [place], [place], [address] MAGNESIUM Collected: 12/24/2017 Status: F Source: [place] 4:10 PM [facility] REPOSITORY Order Comment: 'TROP' Serial specimen #1, #2, #3, or #4: 1 TYPE CODE TESTS RESULT OUT OF RANGE REFERENCE UNITS LAB L501.5200 1.6-2.6 mg/dL Normal MG 2.3 Performed By: #### L500.4050, L501.4010, L501.5200 #### [facility] [address] [place] [address], [address] LACTIC ACID Collected: 12/24/2017 Status: F Source: [place] 4:10 PM [facility] REPOSITORY Order Comment: Yes/No query for Sepsis Lactate Rule Y TYPE CODE TESTS RESULT OUT OF RANGE REFERENCE UNITS LAB L503.6005 0.4-2.0 mmol/L Normal LACTIC ACID 1.4 Performed By: #### L503.6005 #### [facility] [address] [place] [address], [address] M R STAPH AUREUS Collected: 12/24/2017 Status: C Source: [place] DNA BY PCR 4:00 PM [facility] REPOSITORY TYPE CODE TESTS RESULT OUT OF REFERENCE UNITS RANGE LAB L8200.1100 Negative High MRSA POSITIVE RESULT Result Comment: SENT TO [facility] 12-24-17 AT 1746 PM RESULTS CALLED TO GURDEEP HERNANDEZ ICU 12/24/17 1745 Melody Singh. REPORT READ BACK BY SAME . Performed By: #### L8200.1000 #### [facility] [address] [place] [address], [address] OPERATIVE REPORT Observed: 12/24/2017 Status: F Source: [place] 3:30 PM [facility] REPOSITORY [facility] Medical Records Department [address] [place] [address] Operative Report 12/24/17 1527 MR#: [id number] Acct: [id number] Name: VICKI HERNANDEZ Rep #: [id number] : 1960 57 From: Mitali Garibay BID WRITER-C PCP: Rajesh Holman MD Status: ADM IN [...] the absence of pneumothorax. Code Visit Procedures: 00597 Insert Non-tunnel CV Cath 12/24/17 1530 <Electronically signed by Mitali BA> Date Mitali BA CC: Charlie Powell MD; Mitali Garibay; Yu Romero DO; Silviano Vasquez DO; Rajesh Holman MD Signed PROGRESS Observed: 12/24/2017 Status: COMPLETED Source: [place] 3:22 PM [facility] REPOSITORY [facility] ID: [id number] Author: Melvina Almaraz (Rn) Service: (none) Author Type: Registered Nurse Type: Progress Notes Filed: 12/24/2017 3:27 PM Note Text: PRIMARY CARE COORDINATION FOLLOW-UP NOTE Provider Action/FYI FYI Patient identified by name and date of . YES Spoke to nurse Norm at [facility] Summary: Asked about patient's status, states they sent her into [facility] in Renal Failure Social Service Worker plan for next outreach: Will follow up next week Signature Melvina Almaraz RN December 24, 2017 CHEST 1 VIEW Observed: 12/24/2017 Status: F Source: [place] (PORTABLE) 3:11 PM [facility] REPOSITORY [facility] Imaging Services [address] [place] [address] Chest 1 View (Portable) MR#: [id number] Acct: [id number] Name: VICKI HERNANDEZ Rep #: [id number] : 1960 F 57 From: Clinton Gallagher DO PCP: Rajesh Holman MD Status: ADM IN Study: Chest 1 View (Portable) Date of Exam: 12/24/17 Exam# [id number] Ordering Dr: Charlie Powell MD STUDY: X-RAY [...] CC: Charlie Powell MD; Rajesh Holman MD Shipping Assistant: Signed PROTHROMBIN TIME AND Collected: 12/24/2017 Status: F Source: [place] INR 12:00 PM [facility] REPOSITORY TYPE CODE TESTS RESULT OUT [...] 3.5 MECHANICAL HEART VALVES Performed By: #### [id number] #### [facility],[address] [place], [place] [address] CBC Collected: 12/24/2017 Status: F Source: [facility] 12:00 PM [facility] REPOSITORY TYPE CODE TESTS RESULT OUT [...] 7.10 x10EE3/U L Neut # 5.30 LAB Crane #(LOINC) 0.20 - 1.00 x10EE3/U L Crane # 0.60 LAB EO #(LOINC) 0.00 - 0.50 x10EE3/U L EO # 0.30 LAB Baso #(LOINC) 0.00 - 0.10 x10EE3/U L Baso # 0.10 LAB MANUAL DIFF(LOINC) MANUAL DIFF N/A LAB MORPHOLOGY(INC ) MORPHOLOGY N/A Result Comment: {CD] Performed By: #### [id number] #### [place] [address] TROPONIN Collected: 12/24/2017 Status: F Source: [facility] 12:00 [facility] REPOSITORY TYPE CODE TESTS RESULT OUT [...] such as heterophile antibodies). Performed By: #### [id number] #### [place] [address] CMP WITH EGFR Collected: 12/24/2017 Status: F Source: [facility] 12:00 [facility] REPOSITORY TYPE CODE TESTS RESULT OUT [...] OF AGE AND OLDER. Performed By: #### [id number] #### [place] [address] MAGNESIUM Collected: 12/24/2017 Status: F Source: [facility] 12:00 [facility] REPOSITORY TYPE CODE TESTS RESULT OUT OF REFERENCE UNITS RANGE LAB MAGNESIUM( 1.6 - 2.6 mg/dl LOINC) MAGNESIUM 2.2 Performed By: #### [id number] #### [place] [address] DIGOXIN Collected: 12/24/2017 Status: F Source: [facility] 12:00 [facility] REPOSITORY TYPE CODE TESTS RESULT OUT OF REFERENCE UNITS RANGE LAB DIGOXIN(CONCEPCIÓN 0.90 - 2.00 ng/ml NC) High Alert DIGOXIN 2.94 Result Comment: { CALLED TO BOBBY/CHON 1240 { READ BACK BY RA-1235 Performed By: #### [id number] #### [facility],[address] [place], [place] [address] BNP (B-TYPE NATRIURETIC Collected: 12/24/2017 Status: F Source: [place] [facility] PEPTIDE) 12:00 PM [facility] REPOSITORY TYPE CODE TESTS RESULT OUT OF RANGE REFERENCE UNITS LAB BNP(LOINC) 1 - 100 pg/ml High BNP 322 Performed By: #### [id number] #### [facility],[address] [place], [place] [address] CHEST 1 VIEW Observed: 12/24/2017 Status: F Source: [place] [facility] 10:22 AM [facility] REPOSITORY [place] [address] Patient: VICKI HERNANDEZ Phone#: : 1960 Age: 57 Gender: F Pt. Type: ER Account: [id number] Location: [facility] Ordering: TIMOTHY DELGADO Exam Date: 12/24/2017/10:14 Family Phys: Charge Code: 895250 Physician: [place] Order #: [id number] DLP Dose#: PROCEDURE: X-RAY CHEST 1 VIEW COMPARISON: [facility], XR, CHEST PA/LAT, 10/14/2015, 14:14. INDICATIONS: [...] Status: F Source: [place] [facility] INR 6:00 [facility] REPOSITORY TYPE CODE TESTS RESULT OUT [...] 3.5 MECHANICAL HEART VALVES Performed By: #### [id number] #### [place] [address] HEMOGLOBIN Collected: 12/24/2017 Status: F Source: [facility] 6:00 [facility] REPOSITORY TYPE CODE TESTS RESULT OUT OF REFERENCE UNITS RANGE LAB HEMOGLOBIN 12.0 - 16.0 g/dl (LOINC) Low HEMOGLOBIN 8.9 Result Comment: {HH] Performed By: #### [id number] #### [place] [address] BMP WITH EGFR Collected: 12/24/2017 Status: F Source: [place] 6:00 [facility] REPOSITORY TYPE CODE TESTS RESULT OUT [...] OF AGE AND OLDER. Performed By: #### [id number] #### [place] [address] VANCOMYCIN TROUGH Collected: 12/24/2017 Status: F Source: [facility] 6:00 [facility] REPOSITORY TYPE CODE TESTS RESULT OUT OF RANGE REFERENCE UNITS LAB VANCOMYCIN, 10.0 - 15.0 ug/mL TROUGH(LOIN High C) Alert 97.4 VANCOMYCIN,T ROUGH Result Comment: { CALLED TO KERRY/CHON 0854 { READ BACK BY MAX Performed By: #### [id number] #### [place] [address] DIGOXIN Collected: 12/24/2017 Status: F Source: [facility] 6:00 [facility] REPOSITORY TYPE CODE TESTS RESULT OUT OF REFERENCE UNITS RANGE LAB DIGOXIN(CONCEPCIÓN 0.90 - 2.00 ng/ml NC) High Alert DIGOXIN 3.03 Result Comment: { CALLED TO KERRY/CHON 0854 { READ BACK BY MAX Performed By: #### [id number] #### [place] [address] HGB A1C Collected: 12/24/2017 Status: F Source: [facility] 6:00 [facility] REPOSITORY TYPE CODE TESTS RESULT OUT OF RANGE REFERENCE UNITS LAB HGB 4.4 - 6.4 % A1C(LOINC) High HGB A1C 8.9 Result Comment: {HB] {A1] Performed By: #### [id number] #### [address] [place] [address] CNPTOUTREACH Observed: 12/24/2017 Status: COMPLETED Source: [place] 12:00 AM [facility] REPOSITORY Patient Outreach (FAMPWS) MARYVICKI W ([id number]) 1960 F Date Time Provider Department 12/24/17 [facility]EL[facility]AZ (RN) [facility] During your visit today, we recorded the following information about you: Melvina Almaraz (Rn) 12/24/2017 3:27 PM Signed PRIMARY CARE COORDINATION FOLLOW-UP NOTE Provider Action/FYI FYI Patient identified by name and date of . 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 [0467] Prescriptions as of 12/24/2017 Sig: GABAPENTIN 400 [...] VANCOMYCIN TROUGH Collected: 12/23/2017 Status: C Source: [facility] 4:35 PM [facility] REPOSITORY TYPE CODE TESTS RESULT OUT [...] DILUTION ERROR DUE TO Performed By: #### [id number] #### [facility],[address] [place] [address] PROGRESS Observed: 12/23/2017 Status: COMPLETED Source: [place] 2:20 PM [facility] REPOSITORY O ID: [id number] Author: Rajesh Holman Service: (none) Author Type: Physician Type: Progress Notes Filed: 12/23/2017 2:48 PM Note Text: Thank you for update PROGRESS Observed: 12/23/2017 Status: COMPLETED Source: [place] 12:18 PM [facility] REPOSITORY [facility] ID: [id number] Author: Melvina Almaraz (Rn) Service: (none) Author Type: Registered Nurse Type: Progress Notes Filed: 12/23/2017 1:55 PM Note Text: TC from son, Melody, states pt was twitching so bad that she was dropping the phone this morning. Informed of findings with medication lists per [facility] and Rachana Orr. Staff at [facility] feel it may be part the oxycodone. [...] in SNF Informed PCC will check with [facility] nurse tomorrow. TC to Hawa, nurse at [facility]. Pt had CBC, BMP and INR this [...] Melvina Almaraz RN Received medication list from [facility] from pt's son. Only routine meds from PCP list pt isn't taking is Byetta and glypizide Pt is on Ativan PRN for anxiety and Oxycodone for pain. On cefriaxone IV Vancomycin IV Flagyl Nystatin Powder Also on dietary supplements and has indwelling catheter Melvina Almaraz RN VANCOMYCIN TROUGH Collected: 12/23/2017 Status: F Source: [place] 12:03 PM [facility] REPOSITORY TYPE CODE TESTS RESULT OUT OF RANGE REFERENCE UNITS LAB VANCOMYCIN, 10.0 - 15.0 ug/mL TROUGH(LOIN High C) Alert 141.0 VANCOMYCIN,T ROUGH Result Comment: { CALLED TO DARRELL/CHON [id number] { READ BACK BY [id number] Performed By: #### [id number] #### [facility],[address] [place], [place] [id number] DIGOXIN Collected: 12/23/2017 Status: F Source: [place] 12:03 PM [facility] REPOSITORY TYPE CODE TESTS RESULT OUT OF REFERENCE UNITS RANGE LAB DIGOXIN(CONCEPCIÓN 0.90 - 2.00 ng/ml NC) High Alert DIGOXIN 3.56 Result Comment: { CALLED TO DARRELL/CHON 1734 { READ BACK BY RA 1732 Performed By: #### [id number] #### [facility],[address] [place], [place] [address] URINALYSIS WITH Collected: 12/23/2017 Status: F Source: [place] MICROSCOPY 10:45 AM [facility] REPOSITORY TYPE CODE TESTS RESULT OUT [...] Urobilinog(LOINC) NORMAL: NORMAL Urobilinog NORM LAB Sp Dover(LOINC) NORMAL: 1.010-1.030 Sp [place] 1.015 LAB Nitrite(LOINC) NORMAL: NEGATIVE Nitrite NEG [...] LAB Yeast(LOINC) Yeast 2+ Performed By: #### [id number] #### [facility],[address] [place], [place] [address] Observed: 12/23/2017 Status: F Source: [place] CULTURE URINE 10:45 [facility] REPOSITORY CULTURE URINE _URINE CULTURE_ M I C R O B I O L O G Y R E P O R T FINAL Antimicrobial Susceptibility and Organism Identification Report Specimen Number : [id number] Requested : 12/23/17 Specimen Source : URINE Collected : 12/23/17 10:45 [facility] Isolation : RACHANA ORR Received : 12/23/17 10:45 Requesting Physician : KIMBERLY Patient/Specimen Tests and Comments Specimen Comments FINAL REPORT: URINE COLONY COUNT: > THAN 100,000 CFU/CC >OR=TO 3 COLONY TYPES PROBABLE CONTAMINATION Tech : Source : URINE ID # : [id number] FINAL Report Date : / / : Collected : 12/23/17 10:45 12/26/17.MDS. 12/25/17.MDS. 12/26/17.MDS.COMPLETE Performed By: #### [id number] #### [facility],[address] [place] [address] CBC Collected: 12/23/2017 Status: F Source: [facility] 4:40 AM [facility] REPOSITORY TYPE CODE TESTS RESULT OUT [...] 7.10 x10EE3/U L Neut # 3.80 LAB Crane #(LOINC) 0.20 - 1.00 x10EE3/U L Crane # 0.60 LAB EO #(LOINC) 0.00 - 0.50 x10EE3/U L EO # 0.30 LAB Baso #(LOINC) 0.00 - 0.10 x10EE3/U L Baso # 0.00 LAB MANUAL DIFF(LOINC) MANUAL DIFF N/A LAB MORPHOLOGY(INC ) MORPHOLOGY N/A Result Comment: {CD] Performed By: #### [id number] #### [facility],[address] [place] [address] BMP WITH EGFR Collected: 12/23/2017 Status: F Source: [facility] 4:40 AM [facility] REPOSITORY TYPE CODE TESTS RESULT OUT [...] OF AGE AND OLDER. Performed By: #### [id number] #### [facility],[address] [place], [place] [address] PROTHROMBIN TIME AND Collected: 12/23/2017 Status: F Source: [facility] INR 4:40 AM [facility] REPOSITORY TYPE CODE TESTS RESULT OUT OF REFERENCE UNITS RANGE LAB PROTHROMBIN TIME AND INR(LOINC) PROTHROMBIN TIME AND INR Result Comment: PROTHROMBIN TIME AND INR LAB PT-COUMADIN(LOINC) sec PT-COUMADIN 73.5 LAB INR(LOINC) 0.8 - 1.2 INR High Alert 6.9 Result Comment: { CALLED TO Ginna/0829 { READ BACK BY [email or web address]/mary/kaley { TEST REPEATED THE HEMOSIL THROMBOPLASTIN REAGENT [...] 3.5 MECHANICAL HEART VALVES Performed By: #### [id number] #### [facility],[address] [place], [place] [address] PROGRESS Observed: 12/22/2017 Status: COMPLETED Source: [place] 2:59 PM [facility] REPOSITORY O ID: [id number] Author: Melvina Almaraz (Rn) Service: (none) Author [...] TC from son, Melody, pt is in [facility] with MRSA infection and he noted the [...] meds she is supposed to be taking Social Service Worker plan for next outreach: Will follow up at pt discharge planning Signature Melvina Almaraz RN December 22, 2017 PROTHROMBIN TIME AND Collected: 12/22/2017 Status: F Source: [facility] INR 5:42 AM [facility] REPOSITORY TYPE CODE TESTS RESULT OUT OF REFERENCE UNITS RANGE LAB PROTHROMBIN TIME AND INR(LOINC) PROTHROMBIN TIME AND INR Result Comment: PROTHROMBIN TIME AND INR LAB PT-COUMADIN(LOINC) sec PT-COUMADIN 61.3 LAB INR(LOINC) 0.8 - 1.2 INR High Alert 5.7 Result Comment: { CALLED TO rn/0808 { READ BACK BY [email or web address]/evgeny/kaley { TEST REPEATED THE HEMOSIL THROMBOPLASTIN REAGENT [...] 3.5 MECHANICAL HEART VALVES Performed By: #### [id number] #### [facility],[address] [place] [address] NATHANAEL Observed: 12/22/2017 Status: COMPLETED Source: [place] 12:00 AM [facility] REPOSITORY Patient Outreach (FAMPWS) VICKI HERNANDEZ ([id number]) 1960 F Date Time Provider Department 12/22/17 MELVINA ALMARAZ (RN) FAMPWS During your visit today, we recorded the following information about you: Melvina Almaraz (Rn) 12/23/2017 12:18 PM Signed PRIMARY CARE COORDINATION FOLLOW-UP NOTE Provider Action/FYI Patient identified by name and date of . YES Spoke to Melody blair and [facility] nurseEdie Summary: Discussed below with PCP TC to Meenakshi nurse at [facility], asked about patient's status States VS are [...] TC from Melody blair, pt is in [facility] with MRSA infection and he noted the [...] meds she is supposed to be taking Social Service Worker plan for next outreach: Will follow up at pt discharge planning Signature Melvina Almaraz RN December 22, 2017 Melvina Almaraz (Rn) 12/23/2017 1:55 PM Addendum TC from Melody blair, states pt was twitching so bad that she was dropping the phone this morning. Informed of findings with medication lists per [facility] and Rachana Orr. Staff at [facility] feel it may be part the oxycodone. [...] nurse tomorrow. TC to Hawa, nurse at [facility]. 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 Visit: Personal Service Workers - Patient Initiated [3614] Prescriptions as of [...] 12/17/2017 Status: F Source: [place] 1:15 PM [facility] REPOSITORY [facility] Cardiovascular Services [address] [place] [address] 12 Lead EKG 12/08/17 0512 MR#: [id number] Acct: [id number] Name: VICKI HERNANDEZ Rep #: [id number] : 1960 57 From: Oral Suazo MD [...] found Confirmed by ORAL SUAZO MD ([id number]), acquisition editor KERRY HERNANDEZ ([id number]) on 12/17/2017 1:15:18 PM Referred By: BRITTANY Confirmed By:ORAL SUAZO MD 12/17/17 1315 Date Oral Suazo MD CC: Arabella Fontana MD; Arnel Mcintosh MD; Rajesh Holman MD Signed PROGRESS Observed: 12/15/2017 Status: COMPLETED Source: [place] 2:50 PM [facility] RE[facility] HNO ID: [id number] Author: Melvina (Evgeny) Sung Service: (none) Author Type: Registered Nurse Type: Progress Notes Filed: 12/15/2017 3:00 PM Note Text: PRIMARY CARE COORDINATION FOLLOW-UP NOTE Provider Action/FYI FYI Patient identified by name and date of . YES Spoke to nurse Joelle at [facility] Summary: Asked nurse to please call PCC when pt is being discharged and fax discharge summary and medication list. Nurse states patient's wounds on legs are extensive, she has wound vacs on and is getting IV antibiotics. Social Service Worker plan for next outreach: Will follow up at time of discharge Signature Melvina Almaraz RN December 15, 2017 PROTHROMBIN TIME AND Collected: 12/15/2017 Status: F Source: [facility] INR 5:30 AM [facility] REPOSITORY TYPE CODE TESTS RESULT OUT [...] 3.5 MECHANICAL HEART VALVES Performed By: #### [id number] #### [facility],[address] [place] [address] CBC Collected: 12/15/2017 Status: F Source: [facility] 5:30 AM [facility] REPOSITORY TYPE CODE TESTS RESULT OUT [...] 7.10 x10EE3/U L Neut # 4.90 LAB Crane #(LOINC) 0.20 - 1.00 x10EE3/U L Crane # 0.70 LAB EO #(LOINC) 0.00 - 0.50 x10EE3/U L EO # 0.40 LAB Baso #(LOINC) 0.00 - 0.10 x10EE3/U L Baso # 0.00 LAB MANUAL DIFF(LOINC) MANUAL DIFF N/A LAB MORPHOLOGY(LOINC ) MORPHOLOGY N/A Result Comment: {CD] Performed By: #### [id number] #### [facility],[address] [place] [address] CMP WITH EGFR Collected: 12/15/2017 Status: F Source: [facility] 5:30 AM [facility] REPOSITORY TYPE CODE TESTS RESULT OUT [...] OF AGE AND OLDER. Performed By: #### [id number] #### [facility],[address] [place] [address] VANCOMYCIN TROUGH Collected: 12/15/2017 Status: F [facility] REPOSITORY TYPE CODE TESTS RESULT OUT OF RANGE REFERENCE UNITS LAB VANCOMYCIN, 10.0 - 15.0 ug/mL TROUGH(LOIN C) 10.5 VANCOMYCIN,T ROUGH Performed By: #### [id number] #### [facility],[address] [place], [place] [address] CNPTOUTREACH Observed: 12/15/2017 Status: COMPLETED Source: [place] 12:00 AM [facility] REPOSITORY Patient Outreach (FAMPWS) VICKI HERNANDEZ ([id number]) 1960 F Date Time Provider Department 12/15/17 [facility]EVGENY) [facility] During your visit today, we recorded the following information about you: Melvina Almaraz RN 12/15/2017 3:00 PM Signed PRIMARY CARE COORDINATION FOLLOW-UP NOTE Provider Action/FYI FYI Patient identified by name and date of . YES Spoke to nurse Joelle at [facility] Summary: Asked nurse to please call PCC when pt is being discharged and fax discharge summary and medication list. Nurse states patient's wounds on legs are extensive, she has wound vacs on and is getting IV antibiotics. Social Service Worker plan for next outreach: Will follow up [...] Date Reviewed: 06/08/2017 Reviewed by: Karena Shaikh Children'S Entertainer - Fully Assessed Reason for Visit: Personal Service Workers Hospital Follow Up [6868] Prescriptions as of 12/15/2017 Sig: GABAPENTIN 400 [...] INVALID FOR* More... Atrial fibrillation with RVR ([facility]) [I48.91] INVALID FOR*09/23/2016 More... Heart failure, diastolic, acute ([facility]) [I50.31] INVALID FOR* More... Counseling and coordination of care [Z71.89] INVALID FOR*04/12/2015 More... Monoclonal gammopathy [D47.2] INVALID FOR* Empty sella turcica ([facility]) [E23.6] INVALID FOR* More... Uncontrolled type 2 diabetes mellitus without c*INVALID FOR*09/23/2016 Encounter Status:Closed by MELVINA ALMARAZ on 12/15/17 BEDSIDE GLUCOSE Collected: 12/14/2017 Status: F Source: [place] 4:59 PM [facility] REPOSITORY TYPE CODE TESTS RESULT OUT OF REFERENCE UNITS RANGE LAB L501.080 70-110 mg/dL High BEDSIDE GLU 125 Result Comment: MANAGEMENT OF PATIENT CARE PER NURSING PROTOCOL Performed By: #### L501.080 #### [facility] Point of Care [address] [facility] [place] [address] DISCHARGE SUMMARY Observed: 12/14/2017 Status: F Source: [place] 3:54 PM [facility] REPOSITORY [facility] Medical Records Department [address] [place] [address] Discharge Summary 12/14/17 1040 MR#: [id number] Acct: [id number] Name: VICKI HERNANDEZ Rep #: [id number] : 1960 57 From: Arabella Fontana MD PCP: Rajesh Holman MD Status: ADM IN Location: ID3 [id number] Discharge Date and Diagnosis Date of Admission: [...] Oh Wellington MD at 15:29 EDT Tel [phone], Service support , Lower Extremity CT 12/08/17 [...] Oh Wellington MD at 10:20 EDT Tel [phone], Service support , Lower Extremity CT 12/08/17 09:00 IMPRESSION: Diffuse subcutaneous edema and skin thickening along the medial aspect of the right buttock down to the mid leg. Venous varicosities as well as multiple soft tissue calcifications. Electronically Signed: Oh Wellington MD at 10:31 EDT Tel [phone], Service support , Chest X-Ray 12/08/17 12:45 IMPRESSION: Right sided PICC line appears properly positioned. Findings otherwise stable with cardiomegaly and pulmonary vascular congestion. at 1354 Reported and signed by: Kerry Bose MD Electronically Signed: Kerry Bose MD at 13:53 EDT Tel , Service support , Consultations 12/07/17 06:47 Consult: Onc/Wound/terminal carman Routine Comment: Reason for Consult:: legs Operations: [...] within 2 weeks in wound center Disposition: Senior Care facility Minutes spent on discharge:: 35 Patient Condition:: Stable Medical Necessity - Tobacco Use Smoking Status: Former smoker Meaningful Use Info Meaningful Use Diagnoses (Choose all that apply): None applicable Code Visit Inpatient E AND M: 42523 Disch Hosp 12/14/17 1554 <Electronically signed by Arabella Fontana MD> Date Arabella Fontana MD Cosigner Signature (if applicable): Date CC: Arabella Fontana MD; Rajesh Holman MD Signed BEDSIDE GLUCOSE Collected: 12/14/2017 Status: F Source: [place] 11:32 AM [facility] REPOSITORY TYPE CODE TESTS RESULT OUT OF REFERENCE UNITS RANGE LAB L501.080 70-110 mg/dL High BEDSIDE GLU 184 Result Comment: MANAGEMENT OF PATIENT CARE PER NURSING PROTOCOL Performed By: #### L501.080 #### [facility] Point of Care [address] [facility] [place] [address] CONSULTATION Observed: 12/14/2017 Status: F Source: [place] 10:48 AM [facility] REPOSITORY [facility] Medical Records Department [address] [place] [address] Consultation 12/14/17 1044 MR#: [id number] Acct: [id number] Name: VICKI HERNANDEZ Rep #: [id number] : 1960 57 From: Boy Haines MD PCP: Rajesh Holman MD Status: ADM IN Y Location: MS3 [id number] Problem List (1) Abscess of left lower [...] Thank you, d/w Dr. Fontana and case liner. Rx for labs written. 12/14/17 1048 <Electronically signed by Boy Haines MD> Date Boy Haines MD Cosigner Signature (if applicable): Date CC: Alejo Martinez MD; Boy Haines MD; Rajesh Holman MD Signed TRANSFER TO [facility] Observed: 12/14/2017 Status: F Source: [facility] 10:39 [facility] REPOSITORY [facility] Medical Records Department [address] [place] [address] Transfer to [facility] MR#: [id number] Acct: [id number] Name: VICKI HERNANDEZ Rep #: [id number] : 1960 57 From: Arabella Fontana MD PCP: Rajesh Holman MD Status: ADM IN VICKI HERNANDEZ (Patient) (Health Ins. Claim No.) (Day of Discharge to Facility) Certification of patient admission REQUIRED AT TIME OF ADMISSION. I CERTIFY THAT POST-HOSPITAL ECF SERVICES ARE REQUIRED TO BE GIVEN ON AN IN-PATIENT BASIS BECAUSE OF THE ABOVE NAMED PATIENT'S NEED FOR SNF CARE ON A CONTINUING BASIS FOR THE CONDITION(S) FOR WHICH HE/SHE WAS RECEIVING IN-PATIENT HOSPITAL SERVICES PRIOR TO HIS/HER TRANSFER TO THE [facility]. 12/14/17 1038 <Electronically signed by Arabella Fontana [...] 12/14/2017 Status: F Source: [place] 10:00 AM [facility] REPOSITORY TYPE CODE TESTS RESULT OUT OF RANGE REFERENCE UNITS LAB L300.4150 11.7-14.9 SECONDS High PROTIME 28.2 LAB L300.4200 Normal INR 2.6 Performed By: #### L300.3900 #### [facility] [address] [place], [address] BEDSIDE GLUCOSE Collected: 12/14/2017 Status: F Source: [place] 7:52 AM [facility] REPOSITORY TYPE CODE TESTS RESULT OUT OF REFERENCE UNITS RANGE LAB L501.080 70-110 mg/dL High BEDSIDE GLU 193 Result Comment: MANAGEMENT OF PATIENT CARE PER NURSING PROTOCOL Performed By: #### L501.080 #### [facility] Point of Care [address] [place] [address] BEDSIDE GLUCOSE Collected: 12/13/2017 Status: F Source: [place] 8:58 PM [facility] REPOSITORY TYPE CODE TESTS RESULT OUT OF REFERENCE UNITS RANGE LAB L501.080 70-110 mg/dL High BEDSIDE GLU 167 Result Comment: MANAGEMENT OF PATIENT CARE PER NURSING PROTOCOL Performed By: #### L501.080 #### [facility] Point of Care [address] [place] [address] BEDSIDE GLUCOSE Collected: 12/13/2017 Status: F Source: [place] 5:27 PM [facility] REPOSITORY TYPE CODE TESTS RESULT OUT OF REFERENCE UNITS RANGE LAB L501.080 70-110 mg/dL High BEDSIDE GLU 119 Result Comment: MANAGEMENT OF PATIENT CARE PER NURSING PROTOCOL Performed By: #### L501.080 #### [facility] Point of Care [address] [place], [place] [address] BEDSIDE GLUCOSE Collected: 12/13/2017 Status: F Source: [place] 8:52 AM [facility] REPOSITORY TYPE CODE TESTS RESULT OUT OF REFERENCE UNITS RANGE LAB L501.080 70-110 mg/dL High BEDSIDE GLU 134 Result Comment: MANAGEMENT OF PATIENT CARE PER NURSING PROTOCOL Performed By: #### L501.080 #### [facility] Point of Care [address] [place] [address] CBC W/DIFF, AUTOMATED Collected: 12/13/2017 Status: F Source: [place] 6:00 AM [facility] REPOSITORY Order Comment: SPECIMEN OBTAINED FROM LINE [...] ANISO 3+ Performed By: #### L100.0100 #### [facility] [address] [place], [place], [address] PROTHROMBIN TIME W/INR Collected: 12/13/2017 Status: F Source: [place] 6:00 AM [facility] REPOSITORY Order Comment: SPECIMEN OBTAINED FROM LINE DRAW TYPE CODE TESTS RESULT OUT OF RANGE REFERENCE UNITS LAB L300.4150 11.7-14.9 SECONDS High PROTIME 29.9 LAB L300.4200 Normal INR 2.8 Performed By: #### L300.3900 #### [facility] [address] [place], [address] RETIC PANEL Collected: 12/13/2017 Status: F Source: [place] 6:00 AM [facility] REPOSITORY TYPE CODE TESTS RESULT OUT OF [...] bone marrow. Performed By: #### L100.9950 #### [facility] [address] [place] [address], [address] IRON+IRON BINDING Collected: 12/13/2017 Status: F Source: [facility] 6:00 AM [facility] REPOSITORY TYPE CODE TESTS RESULT OUT OF REFERENCE UNITS RANGE LAB L503.6075 250-450 ug/dL Low TIBC 212 LAB L503.6150 50-170 ug/dL Low IRON 31 LAB L503.6250 15.0-55.0 % Low IRON SATURATION 14.6 Performed By: #### L503.6030, L503.6550 #### [facility] [address] [place], [place], [address] FERRITIN Collected: 12/13/2017 Status: F Source: [place] 6:00 AM [facility] REPOSITORY TYPE CODE TESTS RESULT OUT OF RANGE REFERENCE UNITS LAB L503.6550 8-252 ng/mL Normal FERRITIN 118 Performed By: #### L503.6030, L503.6550 #### [facility] [address] [place], [address] CONSULTATION Observed: 12/12/2017 Status: F Source: [place] 11:26 PM [facility] REPOSITORY [facility] Medical Records Department [address] [place] [address] Consultation 12/07/17 1403 MR#: [id number] Acct: [id number] Name: VICKI HERNANDEZ #: [id number] : 1960 57 From: Alejo Martinez MD PCP: Rajesh Holman MD Status: ADM IN Y Location: MS3 HF753-1 Reason for Consult Date of Consultation: 12/07/17 Reason for Consultation: 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 REFERRING PHYSICIAN: Dr. Carrasco. AEROLOGIST: Dr. Martinez. History of Present Illness: The [...] PO DAILY FRED Fluticasone Propionate (Flonase Nasal Waka) 2 spray NASAL DAILY [facility] Furosemide (Lasix) 40 mg PO BIDLX [facility] Gabapentin (Neurontin) 400 mg PO 4X/DAY [facility] Heparin Sodium (Porcine) (Heparin Na) 5,000 unit SC BID [facility] Vancomycin HCl 1,750 mg/ (Sodium Chloride) 535 mls @ 260 mls/hr IV Q12H [facility] Insulin Aspart (Novolog Flexpen ([facility])) 14 units SC TIDCM [facility] Insulin Detemir (Levemir ([facility])) 46 units SC QHS [facility] Ketorolac Tromethamine (Toradol) 30 mg IV Q6H PRN Lisinopril (Zestril) 10 mg PO DAILY FRED Lorazepam (Ativan) 1 mg PO TID PRN Magnesium Hydroxide (Milk Of Magnesia) 30 ml PO DAILY PRN Morphine Sulfate () 4 mg IV Q4H PRN Nadolol (Corgard) 120 mg PO DAILY [facility] Nystatin (Mycostatin Powder) 1 applic TOPICAL TID [facility] Ondansetron HCl (Zofran) 8 mg IV Q6H PRN Tramadol HCl (Ultram) 100 mg PO Q6H PRN Warfarin Sodium (Coumadin (Pbkc)) 10 mg PO SuMoWeFr@1700 [facility] Warfarin Sodium (Coumadin (Pbkc)) 10 mg PO TuThSa@1700 FRED Warfarin Sodium (Coumadin (Pbkc)) 1 mg PO SuMoWeFr@1700 [facility] PAST MEDICAL HISTORY Diabetes mellitus. Hypertension. Atrial fibrillation. CHF. Obesity. Chronic venous insufficiency with venostasis disease. MRSA. Home Medications: Ambulatory Orders Medication Instructions Recorded Citalopram [Celexa] 40 mg PO DAILY 03/20/15 Digoxin [Digitek] 250 mcg PO DAILY 03/20/15 Exenatide [Byetta ([facility])] 5 mcg SC BIDCM 03/20/15 Surgical History: cholecystectomy, hysterectomy - with BSO, tonsillectomy, - - 2 section. Psychiatric History: No pertinent psych hx SYSTEMS SOFTWARE MANAGER History: No pertinent SYSTEMS SOFTWARE MANAGER history Lives: With Family - her mother [...] post-discharge. Code Visit Inpatient E AND M: 79025 Init Hosp L2 - ICD-10 - L02.415, L02.416, E11.622, A49.02, E66.01, E11.9 12/12/17 2326 <Electronically signed by Alejo Martinez MD> Date Alejo Martinez MD Cosigner Signature (if applicable): Date CC: Thomas Carrasco; Alejo Martinez MD; Irasema Ortiz MD; Rajesh Holman MD Signed BEDSIDE GLUCOSE Collected: 12/12/2017 Status: F Source: [place] 9:17 PM [facility] REPOSITORY TYPE CODE TESTS RESULT OUT OF REFERENCE UNITS RANGE LAB L501.080 70-110 mg/dL High BEDSIDE GLU 154 Result Comment: MANAGEMENT OF PATIENT CARE PER NURSING PROTOCOL Performed By: #### L501.080 #### [facility] Point of Care [address] [place] [address] BEDSIDE GLUCOSE Collected: 12/12/2017 Status: F Source: [place] 4:48 PM [facility] REPOSITORY TYPE CODE TESTS RESULT OUT OF REFERENCE UNITS RANGE LAB L501.080 70-110 mg/dL High BEDSIDE GLU 154 Result Comment: MANAGEMENT OF PATIENT CARE PER NURSING PROTOCOL Performed By: #### L501.080 #### [facility] Point of Care [address] [place] [address] BEDSIDE GLUCOSE Collected: 12/12/2017 Status: F Source: [place] 11:56 AM [facility] REPOSITORY TYPE CODE TESTS RESULT OUT OF REFERENCE UNITS RANGE LAB L501.080 70-110 mg/dL High BEDSIDE GLU 113 Result Comment: MANAGEMENT OF PATIENT CARE PER NURSING PROTOCOL Performed By: #### L501.080 #### [facility] Point of Care [address] [place] [address] BEDSIDE GLUCOSE Collected: 12/12/2017 Status: F Source: [place] 7:45 AM [facility] REPOSITORY TYPE CODE TESTS RESULT OUT OF RANGE REFERENCE UNITS LAB L501.080 70-110 mg/dL Normal BEDSIDE GLU 96 Result Comment: MANAGEMENT OF PATIENT CARE PER NURSING PROTOCOL Performed By: #### L501.080 #### [facility] Point of Care [address] [place] [address] BASIC METABOLIC Collected: 12/12/2017 Status: F Source: [place] PROFILE (BMP) 5:33 AM [facility] REPOSITORY Order Comment: SPECIMEN OBTAINED FROM LINE [...] GAP 5 Performed By: #### L500.2500 #### [facility] [address] [facility] [place], [place], [address] PROTHROMBIN TIME W/INR Collected: 12/12/2017 Status: F Source: [place] 5:33 AM [facility] REPOSITORY Order Comment: SPECIMEN OBTAINED FROM LINE DRAW TYPE CODE TESTS RESULT OUT OF RANGE REFERENCE UNITS LAB L300.4150 11.7-14.9 SECONDS High PROTIME 29.2 LAB L300.4200 Normal INR 2.7 Performed By: #### L300.3900 #### [facility] [address] [place], [place], [address] BEDSIDE GLUCOSE Collected: 12/12/2017 Status: F Source: [place] 5:32 AM [facility] REPOSITORY TYPE CODE TESTS RESULT OUT OF RANGE REFERENCE UNITS LAB L501.080 70-110 mg/dL Normal BEDSIDE GLU 88 Result Comment: MANAGEMENT OF PATIENT CARE PER NURSING PROTOCOL Performed By: #### L501.080 #### [facility] [facility] [address] [place] [address] CBC W/DIFF, AUTOMATED Collected: 12/12/2017 Status: F Source: [place] 5:32 AM [facility] REPOSITORY Order Comment: SPECIMEN OBTAINED FROM LINE [...] ANISO 2+ Performed By: #### L100.0100 #### [facility] [address] [place], [address] BEDSIDE GLUCOSE Collected: 12/11/2017 Status: F Source: [place] 10:22 PM [facility] REPOSITORY TYPE CODE TESTS RESULT OUT OF RANGE REFERENCE UNITS LAB L501.080 70-110 mg/dL Normal BEDSIDE GLU 86 Result Comment: MANAGEMENT OF PATIENT CARE PER NURSING PROTOCOL Performed By: #### L501.080 #### [facility] Point of Care [address] [place] [address] BEDSIDE GLUCOSE Collected: 12/11/2017 Status: F Source: [place] 4:43 PM [facility] REPOSITORY TYPE CODE TESTS RESULT OUT OF RANGE REFERENCE UNITS LAB L501.080 70-110 mg/dL Normal BEDSIDE GLU 75 Result Comment: MANAGEMENT OF PATIENT CARE PER NURSING PROTOCOL Performed By: #### L501.080 #### [facility] Point of Care [address] [place] [address] BEDSIDE GLUCOSE Collected: 12/11/2017 Status: F Source: [place] 11:41 AM [facility] REPOSITORY TYPE CODE TESTS RESULT OUT OF REFERENCE UNITS RANGE LAB L501.080 70-110 mg/dL High BEDSIDE GLU 147 Result Comment: MANAGEMENT OF PATIENT CARE PER NURSING PROTOCOL Performed By: #### L501.080 #### [facility] Point of Care [address] [place] [address] BEDSIDE GLUCOSE Collected: 12/11/2017 Status: F Source: [place] 8:18 AM [facility] REPOSITORY TYPE CODE TESTS RESULT OUT OF REFERENCE UNITS RANGE LAB L501.080 70-110 mg/dL High BEDSIDE GLU 123 Result Comment: MANAGEMENT OF PATIENT CARE PER NURSING PROTOCOL Performed By: #### L501.080 #### [facility] Point of Care [address] [place] [address] BASIC METABOLIC Collected: 12/11/2017 Status: F Source: [place] PROFILE (BMP) 7:45 AM [facility] REPOSITORY TYPE CODE TESTS RESULT OUT OF [...] GAP 5 Performed By: #### L500.2500 #### [facility] [address] [place], [place], [address] BLOOD GASES BY [facility] Collected: 12/11/2017 Status: F Source: [place] 7:19 AM [facility] REPOSITORY TYPE CODE TESTS RESULT OUT OF [...] SO2 ISTAT Performed By: #### L9000.0800 #### [facility] Point of Care [address] [place] [address] HH, HEMOGLOBIN AND Collected: 12/11/2017 Status: F Source: [place] HEMATOCRIT 5:35 AM [facility] REPOSITORY TYPE CODE TESTS RESULT OUT OF RANGE REFERENCE UNITS LAB L100.1300 12.0-15.0 g/dl Low HGB 8.3 LAB L100.1400 37-47 % Low HCT 27.7 Performed By: #### L100.0600 #### [facility] [address] [place], [address] BEDSIDE GLUCOSE Collected: 12/10/2017 Status: F Source: [place] 11:47 PM [facility] REPOSITORY TYPE CODE TESTS RESULT OUT OF REFERENCE UNITS RANGE LAB L501.080 70-110 mg/dL High BEDSIDE GLU 128 Result Comment: MANAGEMENT OF PATIENT CARE PER NURSING PROTOCOL Performed By: #### L501.080 #### [facility] Point of Care [address] [place] [address] BEDSIDE GLUCOSE Collected: 12/10/2017 Status: F Source: [place] 4:15 PM [facility] REPOSITORY TYPE CODE TESTS RESULT OUT OF RANGE REFERENCE UNITS LAB L501.080 70-110 mg/dL Normal BEDSIDE GLU 99 Result Comment: MANAGEMENT OF PATIENT CARE PER NURSING PROTOCOL Performed By: #### L501.080 #### [facility] Point of Care [address] [place] [address] BEDSIDE GLUCOSE Collected: 12/10/2017 Status: F Source: [place] 12:23 PM [facility] REPOSITORY TYPE CODE TESTS RESULT OUT OF REFERENCE UNITS RANGE LAB L501.080 70-110 mg/dL High BEDSIDE GLU 119 Result Comment: MANAGEMENT OF PATIENT CARE PER NURSING PROTOCOL Performed By: #### L501.080 #### [facility] Point of Care [address] [place] [address] BEDSIDE GLUCOSE Collected: 12/10/2017 Status: F Source: [place] 8:27 AM [facility] REPOSITORY TYPE CODE TESTS RESULT OUT OF REFERENCE UNITS RANGE LAB L501.080 70-110 mg/dL High BEDSIDE GLU 115 Result Comment: MANAGEMENT OF PATIENT CARE PER NURSING PROTOCOL Performed By: #### L501.080 #### [facility] Point of Care [address] [place] [address] PROTHROMBIN TIME W/INR Collected: 12/10/2017 Status: F Source: [place] 5:25 AM [facility] REPOSITORY TYPE CODE TESTS RESULT OUT OF RANGE REFERENCE UNITS LAB L300.4150 11.7-14.9 SECONDS High PROTIME 25.4 LAB L300.4200 Normal INR 2.3 Performed By: #### L300.3900 #### [facility] [address] [place] [address], [id number] CBC-COMPLETE BLOOD CNT Collected: 12/10/2017 Status: F Source: [place] NO DIFF 5:25 AM [facility] REPOSITORY TYPE CODE TESTS RESULT OUT OF [...] 8.9 Performed By: #### L100.0500, L100.4500 #### [facility] [address] [place], [address] DIFFERENTIAL COMMENT Collected: 12/10/2017 Status: F Source: [place] 5:25 AM [facility] REPOSITORY TYPE CODE TESTS RESULT OUT OF RANGE REFERENCE UNITS LAB L100.4500 Normal SMEAR COMMENT SCANNED Result Comment: 1+ MICROCYTOSIS 2+ MACROCYTOSIS RARE POLYCHROMASIA Performed By: #### L100.0500, L100.4500 #### [facility] [address] [place], [address] BASIC METABOLIC Collected: 12/10/2017 Status: F Source: [place] PROFILE (BMP) 5:25 AM [facility] REPOSITORY TYPE CODE TESTS RESULT OUT OF [...] 3 Performed By: #### L500.2500, L506.0500 #### [facility] [address] [place], [address] PREALBUMIN Collected: 12/10/2017 Status: F Source: [place] 5:25 AM [facility] REPOSITORY TYPE CODE TESTS RESULT OUT OF REFERENCE UNITS RANGE LAB L506.0500 20.0-40.0 mg/dL Low PREALBUMIN 7.9 Performed By: #### L500.2500, L506.0500 #### [facility] [address] [place], [address] BEDSIDE GLUCOSE Collected: 12/09/2017 Status: F Source: [place] 9:55 PM [facility] REPOSITORY TYPE CODE TESTS RESULT OUT OF REFERENCE UNITS RANGE LAB L501.080 70-110 mg/dL High BEDSIDE GLU 142 Result Comment: MANAGEMENT OF PATIENT CARE PER NURSING PROTOCOL Performed By: #### L501.080 #### [facility] Point of Care [address] [place] [address] BEDSIDE GLUCOSE Collected: 12/09/2017 Status: F Source: [place] 4:27 PM [facility] REPOSITORY TYPE CODE TESTS RESULT OUT OF REFERENCE UNITS RANGE LAB L501.080 70-110 mg/dL High BEDSIDE GLU 129 Result Comment: MANAGEMENT OF PATIENT CARE PER NURSING PROTOCOL Performed By: #### L501.080 #### [facility] Point of Care [address] [place] [address] HEMOGLOBIN Collected: 12/09/2017 Status: F Source: [place] 4:12 PM [facility] REPOSITORY Order Comment: NURSE DRAW PT HAS PICC. TYPE CODE TESTS RESULT OUT OF RANGE REFERENCE UNITS LAB L100.1300 12.0-15.0 g/dl Low HGB 9.4 Performed By: #### L100.1300 #### [facility] [address] [place], [address] BEDSIDE GLUCOSE Collected: 12/09/2017 Status: F Source: [place] 2:10 PM [facility] REPOSITORY TYPE CODE TESTS RESULT OUT OF REFERENCE UNITS RANGE LAB L501.080 70-110 mg/dL High BEDSIDE GLU 136 Result Comment: MANAGEMENT OF PATIENT CARE PER NURSING PROTOCOL Performed By: #### L501.080 #### [facility] Point of Care [address] [place] [address] TYPE AND SCREEN Collected: 12/09/2017 Status: F Source: [place] 1:30 PM [facility] REPOSITORY Order Comment: CMV NEG? N Is [...] NEGATIVE Screen Performed By: #### B101.7450 #### [facility] [address] [facility] [address] [place], [place], [address] BEDSIDE GLUCOSE Collected: 12/09/2017 Status: F Source: [place] 8:01 AM [facility] REPOSITORY TYPE CODE TESTS RESULT OUT OF REFERENCE UNITS RANGE LAB L501.080 70-110 mg/dL High BEDSIDE GLU 113 Result Comment: MANAGEMENT OF PATIENT CARE PER NURSING PROTOCOL Performed By: #### L501.080 #### [facility] Point of Care [address] [place], [place] [address] CBC W/DIFF, AUTOMATED Collected: 12/09/2017 Status: F Source: [place] 7:30 AM [facility] REPOSITORY TYPE CODE TESTS RESULT OUT OF [...] Normal 1+ Performed By: #### L100.0100 #### [facility] [address] [place], [place], [address] BASIC METABOLIC Collected: 12/09/2017 Status: F Source: [place] PROFILE ([facility]) 7:30 AM [facility] REPOSITORY TYPE CODE TESTS RESULT OUT OF [...] GAP 6 Performed By: #### L500.2500 #### [facility] [address] [place], [place], [address] PROTHROMBIN TIME W/INR Collected: 12/09/2017 Status: F Source: [place] 7:30 AM [facility] REPOSITORY TYPE CODE TESTS RESULT OUT OF RANGE REFERENCE UNITS LAB L300.4150 11.7-14.9 SECONDS High PROTIME 22.6 LAB L300.4200 Normal INR 2.0 Performed By: #### L300.3900 #### [facility] [address] [place], [address] Observed: 12/09/2017 Status: F Source: [place] CULTURE, DEEP WOUND 12:00 AM [facility] REPOSITORY Order Date: 03/24/17 Comments: COLLECTED IN [...] <=20 S (NF) indicates non-formulary drug at [facility]. Approval by Infectious Disease Specialist required [...] <=0.5 S (NF) indicates non-formulary drug at [facility]. Approval by Infectious Disease Specialist required [...] Anaerobic cocci Performed By: #### M100.1500 #### [facility] [address] [place], [address] Observed: 12/09/2017 Status: F Source: [place] CULTURE, DEEP WOUND 12:00 AM [facility] REPOSITORY Order Date: 03/24/17 Comments: RIGHT POSTERIOR [...] <=0.5 S (NF) indicates non-formulary drug at [facility]. Approval by Infectious Disease Specialist required [...] 0.5 S (NF) indicates non-formulary drug at [facility]. Approval by Infectious Disease Specialist required before non-formulary drugs may be ordered and/or dispensed. * CLSI guidelines does not recommend testing of cephalosporins. This interpretation is deduced from Beta-lactam/penicillin results. Cult, Anaerobic No anaerobic bacteria isolated. Performed By: #### M100.1500, M600.1900 #### [facility] [address] [place], [address] Observed: 12/09/2017 Status: F Source: [place] KAUFMAN, FUNGUS W/ 12:00 [facility] [id number] REPOSITORY Comments: RIGHT POSTERIOR THIGH Is this test to exclude patient from TB Isolation? N Cu,[id number] TESTING PERFORMED AT [facility]. ORIGINAL REPORT ON FILE IN LAB CONTAINS ADDITIONAL TEST SITE INFORMATION. CUF No yeast or mold isolated after [address]136 TESTING PERFORMED AT [facility]. ORIGINAL REPORT ON FILE IN LAB CONTAINS ADDITIONAL TEST SITE INFORMATION. Fungus Stain No yeast or mold observed. Performed By: #### M100.1500, M600.1900 #### [facility] [address] [place], [address] Observed: 12/09/2017 Status: F Source: [place] KAUFMAN, DEEP WOUND 12:00 [facility] REPOSITORY Order Date: 03/24/17 Comments: LEFT POSTERIOR LEG Gram Stain Gram Stain No organisms seen Rare White Blood Cells 4+ Red Blood Cells Wound Culture RESULTS CALLED TO BHAVESH 12/12/17 0859 Richa Rangel. Copy of report sent to Infection Control Printer [id number] 12/12/17 [facility] ORGANISM 1: Meth. resistant Staph. aureus [...] 1 S (NF) indicates non-formulary drug at [facility]. Approval by Infectious Disease Specialist required [...] 0.5 S (NF) indicates non-formulary drug at [facility]. Approval by Infectious Disease Specialist required [...] <=20 S (NF) indicates non-formulary drug at [facility]. Approval by Infectious Disease Specialist required before non-formulary drugs may be ordered and/or dispensed. Cult, Anaerobic Studies have confirmed that Anaerobic Gram Positive Cocci are routinely susceptible to: Penicillin/Ampicillin, Ampicillin/Sulbactam, Piperacillin/Tazobactam, Cefoxatin, Ertapenem, Imipenem, Meropenem and Metronidazole and vary in resistance to: Clindamycin and Moxifloxacin. ORGANISM 1: Anaerobic cocci Performed By: #### M100.1500 #### [facility] [place], [address] DEBRIDED TISSUE Observed: 12/09/2017 Status: F Source: [place] 12:00 AM [facility] REPOSITORY Patient: VICKI HERNANDEZ : 1960 (57/F) Acct Num: [id number] Phys: Arabella Fontana MD Unit Num: [id number] Loc: MS3 [id number] Specimen: [id number] Received: 12/09/17 - 4 Spec Type: ELISSA [...] Focally, the specimen cuts with gritty sensation. Decatizer sections are submitted in two cassettes after decalcification. B - Received in fixative is one container labeled with the patient's name and designated right posterior thigh. The specimen consists of a piece of skin with underlying tissue measuring 11 x 8 x 6 cm. A focal area of ulceration is noted. No mass lesion is identified. Decatizer sections are submitted in two cassettes. C - Received in fixative is one container labeled with the patient's name and designated left posterior leg. The specimen consists of an irregular piece of guzmán-white skin with underlying tissue measuring 23 x 7 cm and up to 2 cm in thickness. Multiple areas of ulceration are noted. No mass lesion is identified. Decatizer sections are submitted in two cassettes. / SJ:cornelius TC:2 CPT: 62767 x3, 50233 HEADER OPERATION: Incision and drainage abscess, MRSA [...] vessel wall microcalcifications. AM:cornelius 12/15/17 Signed Miah [facility] 12/15/17 <signature on file> Performed By: #### PDEB #### [facility] [address] [place], [address] Observed: 12/09/2017 Status: F Source: LAUAR CONDE W/ 12:00 [facility] [id number] REPOSITORY Comments: LEFT POSTERIOR LEG Is this test to exclude patient from TB Isolation? N Cu,[id number] TESTING PERFORMED AT [facility]. ORIGINAL REPORT ON FILE IN LAB CONTAINS ADDITIONAL TEST SITE INFORMATION. CUF No yeast or mold isolated after [address]136 TESTING PERFORMED AT [facility]. ORIGINAL REPORT ON FILE IN LAB CONTAINS ADDITIONAL TEST SITE INFORMATION. Fungus Stain No yeast or mold observed. Performed By: #### M600.1900 #### [place] [facility] [address] [place], [address] Observed: 12/09/2017 Status: F Source: LAURA CONDE W/ 12:00 [facility] [id number] REPOSITORY Comments: COLLECTED IN OR- #1 DEBRIDED TISSUE RIGHT POST JUMANA Is this test to exclude patient from TB Isolation? N Cu,[id number] TESTING PERFORMED AT [facility]. ORIGINAL REPORT ON FILE IN LAB CONTAINS ADDITIONAL TEST SITE INFORMATION. CUF No yeast or mold isolated after [address] TESTING PERFORMED AT [facility]. ORIGINAL REPORT ON FILE IN LAB CONTAINS ADDITIONAL TEST SITE INFORMATION. Fungus Stain No yeast or mold observed. Performed By: #### M600.1900 #### [facility] [address] [place], [place], [address] BEDSIDE GLUCOSE Collected: 12/08/2017 Status: F Source: [place] 11:14 PM [facility] REPOSITORY TYPE CODE TESTS RESULT OUT OF REFERENCE UNITS RANGE LAB L501.080 70-110 mg/dL High BEDSIDE GLU 171 Result Comment: MANAGEMENT OF PATIENT CARE PER NURSING PROTOCOL Performed By: #### L501.080 #### [facility] Point of Care [address] [place] [address] BEDSIDE GLUCOSE Collected: 12/08/2017 Status: F Source: [place] 5:39 PM [facility] REPOSITORY TYPE CODE TESTS RESULT OUT OF RANGE REFERENCE UNITS LAB L501.080 70-110 mg/dL Normal BEDSIDE GLU 92 Result Comment: MANAGEMENT OF PATIENT CARE PER NURSING PROTOCOL Performed By: #### L501.080 #### [facility] Point of Care [address] [place] [address] BEDSIDE GLUCOSE Collected: 12/08/2017 Status: F Source: [place] 1:01 PM [facility] REPOSITORY TYPE CODE TESTS RESULT OUT OF RANGE REFERENCE UNITS LAB L501.080 70-110 mg/dL Normal BEDSIDE GLU 83 Result Comment: MANAGEMENT OF PATIENT CARE PER NURSING PROTOCOL Performed By: #### L501.080 #### [facility] Point of Care [address] [place] [address] CXR FOR LINE PLACEMENT Observed: 12/08/2017 Status: F Source: [place] 12:11 PM [facility] REPOSITORY [facility] Imaging Services [address] [address] CXR for Line Placement MR#: [id number] Acct: [id number] Name: VICKI HERNANDEZ Rep #: [id number] : 1960 F 57 From: Kerry Bose MD PCP: Rajesh Holman MD Status: ADM IN Study: CXR for Line Placement Date of Exam: 12/08/17 Exam# [id number] Ordering Dr: Alejo Martinez MD XR Chest [...] CC: Alejo Martinez MD; Rajesh Holman MD Shipping Assistant: Signed EXTREMITY LOWER Observed: 12/08/2017 Status: F Source: [place] WITHOUT CONTRA 9:00 AM [facility] REPOSITORY [facility] Imaging Services [address] [place] [address] Extremity Lower without Contra MR#: [id number] Acct: [id number] Name: VICKI HERNANDEZ Rep #: [id number] : 1960 F 57 From: Oh Wellington MD PCP: Rajesh Holman MD Status: ADM IN Study: Extremity Lower without Contra Date of Exam: 12/08/17 Exam# [id number] Ordering Dr: Thomas Carrasco MD STUDY: CT [...] Oh [place] MD at 10:31 EDT Tel [phone], Service support , CC: Thomas Carrasco; Rajesh Holman MD Shipping Assistant: Signed EXTREMITY LOWER Observed: 12/08/2017 Status: F Source: [place] WITHOUT CONTRA 8:36 AM [facility] REPOSITORY [facility] Imaging Services [address] [place] [address] Extremity Lower without Contra MR#: [id number] Acct: [id number] Name: VICKI HERNANDEZ Rep #: [id number] : 1960 F 57 From: Oh Wellington MD PCP: Rajesh Holman MD Status: ADM IN Study: Extremity Lower without Contra Date of Exam: 12/08/17 Exam# [id number] Ordering Dr: Alejo Martinez MD STUDY: CT [...] Oh [place] MD at 10:20 EDT Tel [phone], Service support , CC: Alejo Martinez MD; Rajesh Holman MD Shipping Assistant: Signed BEDSIDE GLUCOSE Collected: 12/08/2017 Status: F Source: [place] 8:28 AM [facility] REPOSITORY TYPE CODE TESTS RESULT OUT OF REFERENCE UNITS RANGE LAB L501.080 70-110 mg/dL High BEDSIDE GLU 121 Result Comment: MANAGEMENT OF PATIENT CARE PER NURSING PROTOCOL Performed By: #### L501.080 #### [facility] Point of Care [address] [place] [address] PROGRESS Observed: 12/08/2017 Status: COMPLETED Source: [place] 7:25 AM [facility] REPOSITORY HNO ID: [id number] Author: Melvina (Rn) Sung Service: (none) Author [...] discharge will be transferred to a SNF Social Service Worker plan for next outreach: Will follow up at discharge Signature Melvina Almaraz RN December 08, 2017 BASIC METABOLIC Collected: 12/08/2017 Status: F Source: [place] PROFILE (BMP) 5:20 AM [facility] REPOSITORY TYPE CODE TESTS RESULT OUT OF [...] GAP 6 Performed By: #### L500.2500 #### [facility] [address] [place], [address] PARTIAL THROMBOPLAST Collected: 12/08/2017 Status: F Source: [place] TIME 5:20 AM [facility] REPOSITORY TYPE CODE TESTS RESULT OUT OF REFERENCE UNITS RANGE LAB L300.4310 24.1-36.2 Seconds High PTT 43.6 Performed By: #### L300.4310, L300.3900 #### [facility] [address] [place], [place], [address] PROTHROMBIN TIME W/INR Collected: 12/08/2017 Status: F Source: [place] 5:20 AM [facility] REPOSITORY TYPE CODE TESTS RESULT OUT OF RANGE REFERENCE UNITS LAB L300.4150 11.7-14.9 SECONDS High PROTIME 20.6 LAB L300.4200 Normal INR 1.8 Performed By: #### L300.4310, L300.3900 #### [facility] [address] [place], [address] CBC W/DIFF, AUTOMATED Collected: 12/08/2017 Status: F Source: [place] 5:20 AM [facility] REPOSITORY TYPE CODE TESTS RESULT OUT OF [...] Lymph 1.77 Performed By: #### L100.0100 #### [facility] [address] [place], [address] HEMOGLOBIN A1C Collected: 12/08/2017 Status: F Source: [place] 5:20 AM [facility] REPOSITORY TYPE CODE TESTS RESULT OUT OF RANGE REFERENCE UNITS LAB L501.9985 4.2-6.3 % High HGB A1C 11.3 Performed By: #### L501.9985 #### [facility] [address] [place], [address] CNPTOUTREACH Observed: 12/08/2017 Status: COMPLETED Source: [place] 12:00 AM [facility] REPOSITORY Patient Outreach ([facility]AMPWS) VICKI HERNANDEZ ([id number]) 1960 F Date Time Provider Department 12/08/17 [...] discharge will be transferred to a SNF Social Service Worker plan for next outreach: Will follow up [...] Date Reviewed: 06/08/2017 Reviewed by: Karena Shaikh [facility] Entertainer - Fully Assessed Reason for Visit: Personal Service Workers - Patient Initiated [2117] Prescriptions as of 12/08/2017 Sig: TRAMADOL 50 [...] 12/07/2017 Status: F Source: [place] 10:05 PM [facility] REPOSITORY TYPE CODE TESTS RESULT OUT OF REFERENCE UNITS RANGE LAB L501.080 70-110 mg/dL High BEDSIDE GLU 165 Result Comment: MANAGEMENT OF PATIENT CARE PER NURSING PROTOCOL Performed By: #### L501.080 #### [place] [facility] Point of Care [address] [place], [place] [address] BEDSIDE GLUCOSE Collected: 12/07/2017 Status: F Source: [place] 5:40 PM [facility] REPOSITORY TYPE CODE TESTS RESULT OUT OF REFERENCE UNITS RANGE LAB L501.080 70-110 mg/dL High BEDSIDE GLU 214 Result Comment: MANAGEMENT OF PATIENT CARE PER NURSING PROTOCOL Performed By: #### L501.080 #### [facility] Point of Care [address] [place], [place] [address] BEDSIDE GLUCOSE Collected: 12/07/2017 Status: F Source: [place] 1:05 PM [facility] REPOSITORY TYPE CODE TESTS RESULT OUT OF REFERENCE UNITS RANGE LAB L501.080 70-110 mg/dL High BEDSIDE GLU 139 Result Comment: MANAGEMENT OF PATIENT CARE PER NURSING PROTOCOL Performed By: #### L501.080 #### [facility] Point of Care [address] [place], [place] [address] PROGRESS Observed: 12/07/2017 Status: COMPLETED Source: [place] 8:23 AM [facility] REPOSITORY HNO ID: [id number] Author: Melvina Emanuel) Sung Service: (none) Author Type: Registered Nurse Type: Progress Notes Filed: 12/07/2017 8:24 AM Note Text: Patient admitted to [facility] for LE cellulitis and IV antibiotics Melvina Almaraz RN December 07, 2017 8:23 AM BEDSIDE GLUCOSE Collected: 12/07/2017 Status: F Source: [place] 7:15 AM [facility] REPOSITORY TYPE CODE TESTS RESULT OUT OF REFERENCE UNITS RANGE LAB L501.080 70-110 mg/dL High BEDSIDE GLU 144 Result Comment: MANAGEMENT OF PATIENT CARE PER NURSING PROTOCOL Performed By: #### L501.080 #### [facility] Point of Care [address] [place], [place] [address] PROTHROMBIN TIME W/INR Collected: 12/07/2017 Status: F Source: [place] 5:20 AM [facility] REPOSITORY TYPE CODE TESTS RESULT OUT OF RANGE REFERENCE UNITS LAB L300.4150 11.7-14.9 SECONDS High PROTIME 20.6 LAB L300.4200 Normal INR 1.8 Performed By: #### L300.3900 #### [facility] [address] [place], [place], [address] BASIC METABOLIC Collected: 12/07/2017 Status: F Source: [place] PROFILE (BMP) 5:20 AM [facility] REPOSITORY TYPE CODE TESTS RESULT OUT OF [...] GAP 6 Performed By: #### L500.2500 #### [facility] [address] [place], [place], [address] CBC W/DIFF, AUTOMATED Collected: 12/07/2017 Status: F Source: [place] 5:20 AM [facility] REPOSITORY TYPE CODE TESTS RESULT OUT OF [...] Lymph 2.01 Performed By: #### L100.0100 #### [facility] [address] [place], [address] BEDSIDE GLUCOSE Collected: 12/06/2017 Status: F Source: [place] 10:28 PM [facility] REPOSITORY TYPE CODE TESTS RESULT OUT OF REFERENCE UNITS RANGE LAB L501.080 70-110 mg/dL High BEDSIDE GLU 280 Result Comment: MANAGEMENT OF PATIENT CARE PER NURSING PROTOCOL Performed By: #### L501.080 #### [facility] Point of Care [address] [place], [place] [address] HISTORY AND PHYSICAL Observed: 12/06/2017 Status: F Source: [place] EXAM 9:13 PM [facility] REPOSITORY [facility] Medical Records Department [address] [place] [address] History and Physical 12/06/17 1747 MR#: [id number] Acct: [id number] Name: VICKI HERNANDEZ Rep #: [id number] : 1960 57 From: Irasema Ortiz MD PCP: Rajesh Holman MD Status: ADM IN Y Location: MS3 IP675-2 Problem List (1) Cellulitis of leg, right [...] section. Psychiatric History: No pertinent psych hx SYSTEMS SOFTWARE MANAGER History: No pertinent SYSTEMS SOFTWARE MANAGER history Smoking Status: Former smoker - *Family [...] dysfunction due to morbid obesity; PT/OT, possible mcfp placement. 12/06/172112 <Electronically signed by Irasema Ortiz MD> Date Irasema Ortiz MD Cosigner Signature: Date (if applicable) CC: Irasema Ortiz MD; Rajesh Holman MD Signed EMERGENCY DEPARTMENT Observed: 12/06/2017 Status: F Source: [place] SUMMARY 5:13 PM [facility] REPOSITORY [facility] Medical Records Department [address] [place] [address] Emergency Department Summary 12/06/17 1710 MR#: [id number] Acct: [id number] Name: VICKI HERNANDEZ Rep #: [id number] : 1960 57 From: Maisha Dumont DO [...] with hypoxemia] This note was generated with [employer] dictation software. It may contain incorrect words, spelling, and punctuation that were not noted in review of the chart prior to signing ED Disposition - Plan for ED Patient: Chief Complaint: Edema Referrals: Rajesh Hloman MD [Primary Care Provider] - What to do if you have Problems For any increased pain, shortness of breath, bleeding, nausea or vomiting, chest pain, or any unexpected problems, contact your Primary Care Provider. Call [facility] ([phone]) or report to the closest Emergency Room. Call 911 if necessary. 12/06/17 1713 <Electronically signed by Maisha Dumont DO> Date Maisha Dumont DO Cosigner Signature (If Indicated): Date CC: Rajesh Holman MD Observed: 12/06/2017 Status: F Source: [place] CULTURE, BLOOD (WB) 3:40 PM [facility] REPOSITORY BC No growth in 5 days. Performed By: #### M200.1000 #### [facility] [address] [place], [address] CBC W/DIFF, AUTOMATED Collected: 12/06/2017 Status: F Source: [place] 3:20 PM [facility] REPOSITORY TYPE CODE TESTS RESULT OUT OF [...] Lymph 1.37 Performed By: #### L100.0100 #### [facility] [address] [place], [place], [address] BASIC METABOLIC Collected: 12/06/2017 Status: F Source: [place] PROFILE (BMP) 3:20 PM [facility] REPOSITORY TYPE CODE TESTS RESULT OUT OF [...] GAP 6 Performed By: #### L500.2500 #### [facility] [address] [place], [address] PROTHROMBIN TIME W/INR Collected: 12/06/2017 Status: F Source: [place] 3:20 PM [facility] REPOSITORY TYPE CODE TESTS RESULT OUT OF RANGE REFERENCE UNITS LAB L300.4150 11.7-14.9 SECONDS High PROTIME 21.1 LAB L300.4200 Normal INR 1.8 Performed By: #### L300.3900 #### [facility] [address] [place], [address] BNP,B-TYPE NATRIURETIC Collected: 12/06/2017 Status: F Source: [place] PEPTIDE 3:20 PM [facility] REPOSITORY TYPE CODE TESTS RESULT OUT OF RANGE REFERENCE UNITS LAB L503.6620 0-100 pg/mL High B-TYPE 122.7 RODERICK PEP Performed By: #### L503.6620 #### [facility] [place], [address] MRSA WOUND DNA BY Collected: 12/06/2017 Status: F Source: [place] PCR 3:20 PM [facility] REPOSITORY Order Comment: Order Date: 12/06/17 TYPE CODE TESTS RESULT OUT OF REFERENCE UNITS RANGE LAB L8200.1100 Negative High MRSA POSITIVE RESULT Result Comment: CALLED TO MINAL 12/06/171911 BY [facility] LAB L8200.1150 Negative High SA RESULT POSITIVE Performed By: #### L8200.1075 #### [facility] [place], [address] Observed: 12/06/2017 Status: F Source: [place] CULTURE, WOUND 3:20 PM [facility] REPOSITORY Order Date: 12/06/17 Gram Stain Gram [...] <=20 S (NF) indicates non-formulary drug at [facility]. Approval by Infectious Disease Specialist required [...] 1 S (NF) indicates non-formulary drug at [facility]. Approval by Infectious Disease Specialist required [...] 0.5 S (NF) indicates non-formulary drug at [facility]. Approval by Infectious Disease Specialist required before non-formulary drugs may be ordered and/or dispensed. * CLSI guidelines does not recommend testing of cephalosporins. This interpretation is deduced from Beta-lactam/penicillin results. Performed By: #### M100.1400 #### [facility] [place], [address] Observed: 12/06/2017 Status: F Source: [place] CULTURE, BLOOD (WB) 3:20 PM [facility] REPOSITORY BC No growth in 5 days. Performed By: #### M200.1000 #### [facility] [address] [place], [place], [address] CHEST 1 VIEW Observed: 12/06/2017 Status: F Source: [place] (PORTABLE) 3:13 PM [facility] REPOSITORY [facility] Imaging Services [address] [place] [address] Chest 1 View (Portable) MR#: [id number] Acct: [id number] Name: VICKI HERNANDEZ Rep #: [id number] : 1960 F 57 From: Oh Wellington MD PCP: Rajesh Holman MD Status: PRE ER Study: Chest 1 View (Portable) Date of Exam: 12/06/17 Exam# [id number] Ordering Dr: Maisha Dumont DO STUDY: X-RAY [...] Oh [place] MD at 15:29 EDT Tel [phone], Service support , CC: Maisha Holman MD Shipping Assistant: Signed PROGRESS Observed: 12/06/2017 Status: COMPLETED Source: [place] 2:34 PM [facility] REPOSITORY HNO ID: [id number] Author: Melvina Emanuel) Sung Service: (none) Author Type: Registered Nurse Type: Progress Notes Filed: 12/06/2017 2:36 PM Note Text: PRIMARY CARE COORDINATION FOLLOW-UP NOTE Provider Action/FYI Pt in ED triage at [facility] ER Complaints: Edema, Bleeding foot and couldn't get in car to see PCP Pulse ox RA-88% P-110 Patient identified by name and date of . YES Spoke to Zakiya pineda Concerns: Pt was trying to get in the car to come to PCP and couldn't get in. She pushed Medical Alert and was transported to [facility] ED Social Service Worker plan for next outreach: Will follow up with ER/hosp Signature Melvina Almaraz RN December 06, 2017 CNPTOUTREACH Observed: 12/06/2017 Status: COMPLETED Source: [place] 12:00 AM [facility] REPOSITORY Patient Outreach ([facility]) VICKI HERNANDEZ ([id number]) 1960 F Date Time Provider Department 12/06/17 MELVINA ALMARAZ) DEANNAWS During your visit today, we recorded the following information about you: Melvina Almaraz RN 12/06/2017 2:36 PM Signed PRIMARY CARE COORDINATION FOLLOW-UP NOTE Provider Action/FYI Pt in ED triage at [facility] ER Complaints: Edema, Bleeding foot and couldn't get in car to see PCP Pulse ox RA-88% P-110 Patient identified by name and date of . YES Spoke to Zakiya pineda Concerns: Pt was trying to get in the car to come to PCP and couldn't get in. 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 All prescriptions have been APPROPRIATELY filled. No suspicious activity was identified.- 12/03/2017 by Rajesh Holman MD Call in rx. Please tell her to not use at the same time as lorazepam. Can interact. PROGRESS Observed: 12/03/2017 Status: COMPLETED Source: [place] 9:52 AM [facility] REPOSITORY HNO ID: [id number] Author: Melvina Emanuel) Sung Service: (none) Author Type: Registered Nurse Type: Progress Notes Filed: 12/03/2017 9:59 AM Note Text: PRIMARY CARE COORDINATION FOLLOW-UP NOTE Provider Action/FYI Pt willing to take Tramadol, states it's worked for her before PLEASE ORDER AND SEND TO [facility] [place] She will come in to see PCP [...] get a ride into PCP until Wednesday. Social Service Worker plan for next outreach: Will follow up 12/06 Signature Melvina Almaraz RN December 03, 2017 CNPTOUTREACH Observed: 12/03/2017 Status: COMPLETED Source: [place] 12:00 AM [facility] REPOSITORY Patient Outreach ([facility]) VICKI HERNANDEZ ([id number]) 1960 F Date Time Provider Department 12/03/17 [facility] ALMARAZ) [facility] your visit today, we recorded the following information about you: Melvina Almaraz RN 12/03/2017 9:59 AM Addendum PRIMARY CARE COORDINATION FOLLOW-UP NOTE Provider Action/FYI Pt willing to take Tramadol, states it's worked for her before PLEASE ORDER AND SEND TO [facility] [place] She will come in to see PCP [...] get a ride into PCP until Wednesday. Social Service Worker plan for next outreach: Will follow up [...] Date Reviewed: 06/08/2017 Reviewed by: Karena Shaikh Children'S Entertainer - Fully Assessed Reason for Visit: Personal Service Workers - Patient Initiated [3614] Primary Visit Diagnosis:Venous stasis ulcer, unspecified site, unspecified ulcer stage, unspecified whether varicose veins present ([facility]) [I83.009, L97.769] Order(s):traMADol (ULTRAM) 50 mg tabletTake 1 tablet [...] gammopathy [D47.2] INVALID FOR* Empty sella turcica ([facility]) [E23.6] INVALID FOR* More... Uncontrolled type 2 diabetes mellitus without c*INVALID FOR*09/23/2016 Prescriptions ordered this encounter Disp Refills Start End TRAMADOL 50 MG TABLET 20 t* 0 12/03/2017 12/08/2017 Class: Print RX Route: ORAL Sig: Take 1 tablet by mouth every 4 hours as needed for up to 5 days. Encounter Status:Closed by MELVINA ALMARAZ on 12/03/17 PROGRESS Observed: 11/30/2017 Status: COMPLETED Source: [place] 3:32 PM [facility] [place] REPOSITORY O ID: [id number] Author: Melvina Emanuel) Sung Service: (none) Author [...] PM PROGRESS Observed: 11/30/2017 Status: COMPLETED Source: [place] 12:05 PM [facility] [place] REPOSITORY HNO ID: [id number] Author: Rajesh Holman Service: (none) Author Type: Physician Type: Progress Notes Filed: 11/30/2017 5:11 PM Note Text: Take additional 20 mg of torsemide once a day for two days. Call with update after PROGRESS Observed: 11/30/2017 Status: COMPLETED Source: [place] 11:40 AM [facility] REPOSITORY HNO ID: [id number] Author: Melvina Emanuel) Sung Service: (none) Author [...] 230 (highs are due to diet indiscretions) Social Service Worker plan for next outreach: Will follow up 2 weeks Signature Melvina Almaraz RN November 30, 2017 CNPTOUTREACH Observed: 11/30/2017 Status: COMPLETED Source: [place] 12:00 AM [facility] REPOSITORY Patient Outreach ([facility]) HERNANDEZVICKI ([id number]) 1960 F Date Time Provider Department 11/30/17 [...] 230 (highs are due to diet indiscretions) Social Service Worker plan for next outreach: Will follow up 2 weeks Signature Melvina Almaraz RN November 30, 2017 Rajesh oHlman MD 11/30/2017 5:11 PM Signed Take additional [...] Date Reviewed: 06/08/2017 Reviewed by: Karena Shaikh Children'S Entertainer - Fully Assessed 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 Atrial fibrillation ([facility]) [I48.91] INVALID FOR* Priority: A More... Lymphedema [I89.0] INVALID FOR* Priority: B More... Heart failure, systolic and diastolic, acute on*INVALID FOR*12/31/2014 More... Obesity, morbid, BMI 50 or higher ([facility]) [E66.01]INVALID FOR* More... Hypertension [I10] INVALID FOR* More... HUNTER (obstructive sleep apnea) [G47.33] INVALID FOR* More... Pulmonary HTN (HCC) [I27.20] INVALID FOR* More... Atrial fibrillation with RVR ([facility]) [I48.91] INVALID FOR*09/23/2016 More... Heart failure, diastolic, acute ([facility]) [I50.31] INVALID FOR* More... Counseling and coordination of care [Z71.89] INVALID FOR*04/12/2015 More... Monoclonal gammopathy [D47.2] INVALID FOR* Empty sella turcica ([facility]) [E23.6] INVALID FOR* More... Uncontrolled type 2 [...] 11/30/17 BERNADETTE Observed: 11/19/2017 Status: COMPLETED Source: [place] 12:00 AM [facility] REPOSITORY [facility] VICKI HERNANDEZ ([id number]) 1960 F Date Time Provider Department 11/19/17 RAJESH HOLMAN [facility] During your visit today, we recorded the [...] Date Reviewed: 06/08/2017 Reviewed by: Karena Shaikh Children'S Entertainer - Fully Assessed Reason for Visit: Anticoagulation [8] Primary Visit Diagnosis:Atrial fibrillation, unspecified type (HCC) [I48.91] Order(s):PROTHROMBIN TIME/PT [SQPT] Order #: [id number] warfarin (COUMADIN) 1 mg [id number] T-Th-Lofton, 11mg other days or as directedDisp: 30 tabletRfl: 5 warfarin (COUMADIN) 10 mg [id number] T-Th-Lofton, 11mg other days or as directedDisp: [...] or as directed Cosign required by RAJESH HOLMAN[[id number]] WARFARIN 10 MG TABLET 30 t* 11 11/19/2017 Class: Med Update Simg T-Th-Lofton, 11mg other days or as directed Cosign required by RAJESH HOLMAN[[id number]] Medications Discontinued During This Encounter warfarin (COUMADIN) 1 mg tablet 30 t* 5 10/04/2017 11/19/2017 Simg T-Th-Sa-Lofton, 11mg other days or as directed Disc: Reason for discontinue is not on file. warfarin (COUMADIN) 10 mg tablet 30 t* 11 10/04/2017 11/19/2017 Simg T-Th-Sa-Lofton, 11mg other days or as directed Disc: Reason for discontinue is not on file. Encounter Status:Closed by ADRIANA DUNAWAY MA on 11/19/17 PROGRESS Observed: 11/08/2017 Status: COMPLETED Source: [place] 2:09 PM [facility] REPOSITORY HNO ID: [id number] Author: Melvina (Evgeny) Sung Service: (none) Author Type: Registered Nurse Type: Progress Notes Filed: 11/10/2017 2:14 PM Note Text: PRIMARY CARE COORDINATION FOLLOW-UP NOTE Provider Action/FYI FYI Patient identified by name and date of . YES Spoke to patient Concerns: TC to [facility], informed pt canceled her appt w/PCP due to weather so she will not be bringing in the mdINR letter, states she will call pt. TC to [facility], informed of letter and insurance refusing any [...] to bring in letter to appt tomorrow. Social Service Worker plan for next outreach: Will follow up tomorrow Signature Melvina Almaraz RN November 08, 2017 CNPTOUTREACH Observed: 11/08/2017 Status: COMPLETED Source: [place] 12:00 AM [facility] REPOSITORY Patient Outreach (FAMPWS) VICKI HERNANDEZ ([id number]) 1960 F Date Time Provider Department 11/08/17 MELVINA ALMARAZ) AUDREY During your visit today, we recorded the following information about you: Melvina Almaraz RN 11/10/2017 2:14 PM Addendum PRIMARY CARE COORDINATION FOLLOW-UP NOTE Provider Action/FYI FYI Patient identified by name and date of . YES Spoke to patient Concerns: TC to [facility], informed pt canceled her appt w/PCP due to weather so she will not be bringing in the mdINR letter, states she will call pt. TC to [facility], informed of letter and insurance refusing any [...] to bring in letter to appt tomorrow. 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 Atrial fibrillation with RVR ([facility]) [I48.91] INVALID FOR*09/23/2016 More... Heart failure, diastolic, acute (HCC) [I50.31] INVALID FOR* More... Counseling and coordination of care [Z71.89] INVALID FOR*04/12/2015 More... Monoclonal gammopathy [D47.2] INVALID FOR* Empty sella turcica (HCC) [E23.6] INVALID FOR* More... Uncontrolled type 2 diabetes mellitus without c*INVALID FOR*09/23/2016 Encounter Status:Closed by MELVINA ALMARAZ on 11/10/17 PROGRESS Observed: 10/26/2017 Status: COMPLETED Source: [place] 5:38 PM [facility] [place] REPOSITORY HNO ID: [id number] Author: Melvina Emanuel) Sung Service: (none) Author [...] PM PROGRESS Observed: 10/26/2017 Status: COMPLETED Source: [place] 5:09 PM [facility] REPOSITORY HNO ID: [id number] Author: Rajesh Holman Service: (none) Author Type: Physician Type: Progress Notes Filed: 10/26/2017 5:40 PM Note Text: Ok to increase humalog by 2 units tid PROGRESS Observed: 10/26/2017 Status: COMPLETED Source: [place] 4:29 PM [facility] REPOSITORY HNO ID: [id number] Author: Melvina Emanuel) Sung Service: (none) Author [...] tablet by mouth twice daily before meals. Social Service Worker plan for next outreach: Will follow up 2 weeks Signature Melvina Almaraz RN October 26, 2017 BRYONTOUTREACH Observed: 10/26/2017 Status: COMPLETED Source: [place] 12:00 AM [facility] REPOSITORY Patient Outreach ([facility]AMPWS) VICKI HERNANDEZ ([id number]) 1960 F Date Time Provider Department 10/26/17 [...] tablet by mouth twice daily before meals. 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 Atrial fibrillation ([facility]) [I48.91] INVALID FOR* Priority: A More... Lymphedema [I89.0] INVALID FOR* Priority: B More... Heart failure, systolic and diastolic, acute on*INVALID FOR*12/31/2014 More... Obesity, morbid, BMI 50 or higher ([facility]) [E66.01]INVALID FOR* More... Hypertension [I10] INVALID FOR* More... HUNTER (obstructive sleep apnea) [G47.33] INVALID FOR* More... Pulmonary HTN ([facility]) [I27.20] INVALID FOR* More... Atrial fibrillation with RVR ([facility]) [I48.91] INVALID FOR*09/23/2016 More... Heart failure, diastolic, acute ([facility]) [I50.31] INVALID FOR* More... Counseling and coordination of care [Z71.89] INVALID FOR*04/12/2015 More... Monoclonal gammopathy [D47.2] INVALID FOR* Empty sella turcica ([facility]) [E23.6] INVALID FOR* More... Uncontrolled type 2 [...] 10/26/17 PROGRESS Observed: 09/22/2017 Status: COMPLETED Source: [place] 11:37 AM [facility] [place] REPOSITORY HNO ID: [id number] Author: Melvina Emanuel) Sung Service: (none) Author Type: Registered Nurse Type: Progress Notes Filed: 09/22/2017 11:38 AM Note Text: Mammogram order faxed to [facility] and confirmed Melvina Almaraz RN September 22, 2017 10:37 AM PROGRESS Observed: 09/21/2017 Status: COMPLETED Source: [place] 5:15 PM [facility] [place] REPOSITORY HNO ID: [id number] Author: Rajesh Holman Service: (none) Author Type: Physician Type: Progress Notes Filed: 09/22/2017 11:38 AM Note Text: done PROGRESS Observed: 09/21/2017 Status: COMPLETED Source: [place] 4:11 PM [facility] [place] REPOSITORY HNO ID: [id number] Author: Melvina Emanuel) Sung Service: (none) Author Type: Registered Nurse Type: Progress Notes Filed: 09/21/2017 4:29 PM Note Text: PRIMARY CARE COORDINATION FOLLOW-UP NOTE Provider Action/FYI Pt just found out her sister has invasive breast cancer. Pt is overdo for mammogram. She would like order faxed to [facility] ORDER PENDED FOR YOUR APPROVAL Also [...] along with rubbing legs and hot shower. Social Service Worker plan for next outreach: Will follow up one month Signature Melvina Almaraz RN September 21, 2017 NATHANAEL Observed: 09/21/2017 Status: COMPLETED Source: [place] 12:00 AM [facility] REPOSITORY Patient Outreach (FAMPWS) VICKI HERNANDEZ ([id number]) 1960 F Date Time Provider Department 09/21/17 MELVINA ALMARAZ (RN) DEANNAWS During your visit today, we recorded the following information about you: Melvina Almaraz RN 09/21/2017 4:29 PM Addendum PRIMARY CARE COORDINATION FOLLOW-UP NOTE Provider Action/FYI Pt just found out her sister has invasive breast cancer. Pt is overdo for mammogram. She would like order faxed to [facility] ORDER PENDED FOR YOUR APPROVAL Also [...] along with rubbing legs and hot shower. 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 Obesity, morbid, BMI 50 or higher ([facility]) [E66.01]INVALID FOR* More... Hypertension [I10] INVALID FOR* More... HUNTER (obstructive sleep apnea) [G47.33] INVALID FOR* More... Pulmonary HTN (HCC) [I27.20] INVALID FOR* More... Atrial fibrillation with RVR ([facility]) [I48.91] INVALID FOR*09/23/2016 More... Heart failure, diastolic, acute ([facility]) [I50.31] INVALID FOR* More... Counseling and coordination of care [Z71.89] INVALID FOR*04/12/2015 More... Monoclonal gammopathy [D47.2] INVALID FOR* Empty sella turcica (HCC) [E23.6] INVALID FOR* More... Uncontrolled type 2 diabetes mellitus without c*INVALID FOR*09/23/2016 Encounter Status:Closed by MELVINA ALMARAZ on 09/22/17 RAJEEVYOELJARED Observed: 09/07/2017 Status: COMPLETED Source: [place] 12:00 AM [facility] RE[facility]ITORY Patient Outreach ([facility] VICKI HERNANDEZ ([id number]) 1960 F Date Time Provider Department 09/07/17 RAJESH HOLMAN [facility] During your visit today, we recorded the [...] Date Reviewed: 06/08/2017 Reviewed by: Karena Shaikh Children'S Entertainer - Fully Assessed Visit Diagnosis:Medication management [Z79.899] Order(s):ALBUMIN/CREAT RATIO RND UR [SQUACR] Order #: [id number] FUTURE Prescriptions as of 09/07/2017 Sig: GABAPENTIN [...] 10/10/17 PROGRESS Observed: 08/12/2017 Status: COMPLETED Source: [place] 10:46 AM [facility] HNO ID: [id number] Author: Melvina MosesRn) Sung Service: (none) Author Type: Registered Nurse Type: Progress Notes Filed: 08/12/2017 10:47 AM Note Text: TC to patient, informed PCP called in a new prescription for gabapentin 400 mg and she is to take it 3 x daily, verbalized understanding with teach back. Melvina Almaraz RN August 12, 2017 10:47 AM ] PROGRESS Observed: 08/11/2017 Status: COMPLETED Source: [place] 5:45 PM [facility] REPOSIT[facility] HNO ID: [id number] Author: Rajesh Holman Service: (none) Author Type: Physician Type: Progress Notes Filed: 08/12/2017 10:47 AM Note Text: Change to 400 mg tid PROGRESS Observed: 08/11/2017 Status: COMPLETED Source: [place] 5:15 PM [facility] RE[facility] HNO ID: [id number] Author: Melvina Emanuel) Sung Service: (none) Author [...] Using BIPAP every night. Depression is good Social Service Worker plan for next outreach: Will follow up 5 weeks Signature Melvina Almaraz RN August 11, 2017 BRYONTOUTREACH Observed: 08/11/2017 Status: COMPLETED Source: [place] 12:00 AM [facility] RE[facility] Patient Outreach (FAMPWS) HERNANDEZVICKI ([id number]) 1960 F Date Time Provider Department 08/11/17 [...] Using BIPAP every night. Depression is good 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 [2558] Order(s):gabapentin (NEURONTIN) 400 mg capsuleTake 1 capsule [...] gammopathy [D47.2] INVALID FOR* Empty sella turcica ([facility]) [E23.6] INVALID FOR* More... Uncontrolled type 2 [...] SOURCE Drug pentazocine Itching Unknown [place] 8 Allergy/129674862 lactate/H641361 [facility] (SNOM[facility] 585(RXNORM) Hospital Repository Drug phenobarbital/F Itching Unknown [place] 8 Allergy/783894940 749840408(RXNOR [facility] (SNOMED [facility] M) Hospital Repository Drug codeine/X636741 Upset Stomach Unknown [place] 8 Allergy/854771995 550(RXNORM) [facility] (SNOM[facility] Hospital Repository Drug latex/W06105713 Itching Unknown [place] 8 Allergy/997824469 1(RXNORM) [facility] (SNOM[facility] Hospital Repository Drug tree Anaphylaxis Unknown [place] 8 Allergy/062137231 nut/O420351751( [facility] (SNOMED [facility]) RXNORM) Hospital Repository Drug CODEINE/9347837 VOMITING Moderate [place] Pomerene Allergy/680448848 6(RXNORM) (Severity [facility] (SNOMED CT) Modifier) [facility] (Qualifier Repository Value) Drug PENTAZOCINE/000 HALLUCINATIONS Moderate [place] Pomerene Allergy/783352923 72497(RXNORM) (Severity [facility] (SNOMED CT) Modifier) Hospital (Qualifier Repository Value) Drug PHENOBARBITAL/0 VOMITING, NAUSEA Moderate [place] Pomerene Allergy/777460785 5638165(RXNORM) (Severity [facility] (SNOMED CT) Modifier) [facility] (Qualifier Repository Value) Environmental LATEX HIVES, ITCHING, Moderate [place] Pome[place] Allergy/363137774 RASH (Severity [facility] (SNOMED CT) Modifier) Hospital (Qualifier Repository Value) Food NUTS Moderate [place] Pomerene Allergy/599806714 (Severity [facility] (SNOMED CT) Modifier) [facility] (Qualifier Repository Value) ENCOUNTERS ENCOUNTERS ADMIT/DISCHARGE ACCOUNT ADMITTING ENCOUNTER LOCATION SOURCE NUMBER CLASS 07/26/2018 [id number] Ambulatory [place] 4 [facility] ing: Repository 07/22/2018/ [id number] [place], Inpatient [place] 8 1 [place] [facility] ing:PCURoom: Repository [id number]: 1 07/22/2018 [id number] Agyepong, Ambulatory BMSBuilding:B [place] 6 [place] Repository 07/22/2018 [id number] Ag[place]ep[place], Ambulatory BMSBuilding:B [place] 6 [place] [facility] Repository 07/22/2018 [id number] Agyepong, Ambulatory BMSBuilding:B [place] 5 [place] Repository 07/22/2018 [id number] Agyepong, Ambulatory BMSBuilding:B [place] 4 [place] Repository 07/22/2018 [id number] Agyepong, Ambulatory BMSBuilding:B [place] 6 [place] Repository 07/21/2018 [id number] Ambulatory [place] Sheila 5 [facility] Hospital ing:[facility] Repository 07/05/2018 [id number] Ambulatory BMSBuilding:B [place] 7 [facility] Repository 07/05/2018/ [id number] Ambulatory [place] 8 6 [facility] Hospital ing: Repository 06/09/2018 [id number] Ambulatory BMSBuilding:B [place] 4 [facility] Repository 06/07/2018/ [id number] Ambulatory [place] 8 1 [facility] ing: Repository 05/11/2018 [id number] Ambulatory BMSBuilding:B [place] 7 [facility] Repository 05/10/2018/ [id number] Ambulatory [place] Sheila 8 5 [facility] Hospital ing: Repository 05/10/2018/ [id number] Ambulatory BMSBuilding:W [place] 8 2 [facility] Repository 04/11/2018/ [id number] Ambulatory [place] 8 8 [facility] Hospital ing: Repository 03/07/2018/ [id number] Ambulatory Sheila [place] 8 5 [facility] Hospital ing: Repository 03/07/2018 [id number] Ambulatory BMSBuilding:B [place] 6 [facility] Repository 12/29/2017/ [id number] Ambulatory [facility] 8 3 [facility] Clevelandon g:MeaghanLTAC(6M)R Repository oom: [id number] 12/24/2017/ [id number] Silviano Vasquez Inpatient [place] Sheila 8 4 [facility] Hospital ing:PCURoom: Repository [id number]: 1 12/24/2017 [id number] Pedro, Silviano Ambulatory BMSBuilding:B [place] 7 [facility] Rep[facility] 12/24/2017 [id number] Celestinoeri, Silviano Ambulatory BMSBuilding:B [place] 5 [facility] Repository 12/24/2017 [id number] Pedro, Silviano Ambulatory BMSBuilding:B [place] 8 [facility] Repository 12/24/2017 [id number] Pedro, Silviano Ambulatory BMSBuilding:B [place] 9 [facility] Repository 12/24/2017 [id number] Pedro, Silviano Ambulatory BMSBuilding:B [place] 3 [facility] Repository 12/24/2017 [id number] Pedro, Silviano Ambulatory BMSBuilding:B [place] 8 [facility] Repository 12/24/2017 [id number] Pedro, Silviano Ambulatory BMSBuilding:W [place] 5 [facility] Repository 12/24/2017 [id number] Pedro, Silviano Ambulatory BMSBuilding:B [place] 5 [facility] Repository 12/24/2017 [id number] Pedro, Silviano Ambulatory BMSBuilding:B [place] 4 [place] Repository 12/24/2017 [id number] Pedro, Silviano Ambulatory BMSBuilding:W [place] 2 [facility] Repository 12/24/2017 [id number] Pedro, Silviano Ambulatory BMSBuilding:B [place] 1 [facility] Repository 12/24/2017 [id number] Pedro, Silviano Ambulatory BMSBuilding:B [place] 5 [facility] Repository 12/24/2017 [id number] Pedro, Silviano Ambulatory BMSBuilding:B [place] 0 [facility] Repository 12/24/2017/ [id number] Ambulatory BMSBuilding:W [place] 8 2 [facility] Repository 12/24/2017/ [id number] Ambulatory BMSBuilding:W [place] 8 0 [facility] Repository 12/24/2017/ [id number] Ambulatory BMSBuilding:W [place] 8 0 [facility] Repository 12/24/2017/ [id number] TIMOTHY DELGADO [facility] oom: ERBed: F [facility] Repository 12/14/2017 [id number] KALISETTI[facility] Repository 12/08/2017/ [id number] Ambulatory BMSBuilding:W [place] 8 7 [facility] Repository 12/06/2017/ [id number] [place], Inpatient [place] 8 3 [place] [facility] Hospital ing:CU4Yrch: Repository WI502Fti: 1 12/06/2017 [id number] [place], Ambulatory BMSBuilding:B [place] 1 [place] Repository 12/06/2017 [id number] [place], Ambulatory BMSBuilding:B [place] 7 [place].[facility] Repository 12/06/2017 [id number] [place], Ambulatory BMSBuilding:B [place] 5 [place] Repository 12/06/2017 [id number] [place], Ambulatory BMSBuilding:B [place] 0 [place] [facility] Repository 12/06/2017 [id number] [place], Ambulatory BMSBuilding:B [place] 9 [place].[facility] Repository 12/06/2017 [id number] [place], Ambulatory BMSBuilding:B [place] 5 [place].[facility] Repository 12/06/2017 [id number] [place], Ambulatory BMSBuilding:B [place] 3 [place].[facility] Repository 12/06/2017 [id number] [place], Ambulatory BMSBuilding:B [place] 1 [place].[facility] Repository 12/06/2017 [id number] [place], Ambulatory BMSBuilding:B [place] 2 [place].[facility] Repository 12/06/2017 [id number] [place], Ambulatory BMSBuilding:B [place] 6 [place].[facility] Repository 12/06/2017 [id number] [place], Ambulatory BMSBuilding:B [place] 2 [place].[facility] Repository 12/06/2017 [id number] [place], Ambulatory BMSBuilding:B [place] 8 [place].[facility] Repository PAYERS PAYERS ENCOUNTER GUARANTOR PAYER SUBSCRIBER SOURCE 07/26/2018 VICKI Silke Primary VICKI Edouard [place] [id number] Insurance:MEDICAL MILLERDOB: [facility] [id number], Number: Repository [place] [address]Dpl: [id number] Date:4988-05-28HS [address] () [address], [place] [address]QT: 07/26/2018 Secondary NOT GIVENUNK [place] Insurance:SELF PAY [facility] Number: Effective Repository Date:2018-07-23 07/22/2018 VICKI Edouard Primary VICKI HERNANDEZ[address] Insurance:MEDICAL MILLERDOB: [facility] [id number], Number: Repository [place] [address]Tmc: [id number] Date:4273-74-64VW [address] () [address], [place] [address]TS: 07/22/2018 Secondary NOT GIVENUNK [place] Insurance:SELF PAY [facility] Number: Effective Repository Date:2018-07-22 07/22/2018 VICKI Edouard Primary IVCKI HERNANDEZ[address] Insurance:MEDICAL MILLERDOB: [facility] [id number], Number: Repository [place] [address]Jat: [id number] Date:0029-12-12UY BOX () [address] [place] [address]PV: 07/22/2018 Secondary NOT GIVENUNK [place] Insurance:SELF PAY [facility] Number: Effective Repository Date:2018-07-22 07/22/2018 VICKI Edouard Primary VICKI HERNANDEZ[address] Insurance:MEDICAL MILLERDOB: Community [address] [facility] [id number], Number: [place]ository [place] [address]Tcb: [id number] Date:5122-33-53NC BOX () [address] [place] [address]YA: 07/22/2018 Secondary NOT GIVENUNK [place] Insurance:SELF PAY [facility] Number: Effective Repository Date:2018-07-22 07/22/2018 VICKI W Primary VICKI HERNANDEZ[address] Insurance:MEDICAL MILLERDOB: [facility] [id number], Number: Repository [place] [address]Wtd: [id number] Date:4886-80-51JB BOX () [address] [place] [address]RI: 07/22/2018 Secondary NOT GIVENUNK [place] Insurance:SELF PAY [facility] Number: Effective Repository Date:2018-07-22 07/22/2018 VICKI W Primary VICKI HERNANDEZ[address] Insurance:MEDICAL MILLERDOB: [facility] [id number], Number: Repository [place] [address]Fbs: [id number] Date:2154-72-98PG BOX () [address] [place] [address]OW: 07/22/2018 Secondary NOT GIVENUNK [place] Insurance:SELF PAY [facility] Number: Effective Repository Date:2018-07-22 07/22/2018 VICKI W Primary VICKI W [place] [id number] Insurance:MEDICAL MILLERDOB: [facility] [id number], Number: Repository [place] [address]Ftc: [id number] Date:2952-93-01BZ BOX () [address] [place] [address]OJ: 07/22/2018 Secondary NOT GIVENUNK [place] Insurance:SELF PAY [facility] Number: Effective Repository Date:2018-07-22 07/21/2018 VICKI W Primary VICKI HERNANDEZ[address] Insurance:MEDICAL MILLERDOB: [facility] [id number], Number: Repository [place] [address]Uaa: [id number] Date:1048-89-16CD BOX () [address] [place] [address]PU: 07/21/2018 Secondary NOT GIVENUNK [place] Insurance:SELF PAY [facility] Number: Effective Repository Date:2018-07-21 07/05/2018 VICKI W Primary VICKI HERNANDEZ[address] Insurance:MEDICAL MILLERDOB: [facility] [id number], Number: [place]ository [place] [id number]: [id number] Date:9237-49-25SD BOX () [address] [place] [address]FU: 07/05/2018 Secondary NOT GIVENUNK [place] Insurance:SELF PAY [facility] Number: Effective Repository Date:2018-07-05 07/05/2018 VICKI W Primary VICKI HERNANDEZ[address] Insurance:MEDICAL MILLERDOB: [facility] [id number], Number: Repository [place] [address]Mpg: [id number] Date:2143-49-88KD BOX () [address] [place] [address]NI: 07/05/2018 Secondary NOT GIVENUNK [place] Insurance:SELF PAY [facility] Number: Effective Repository Date:2018-06-23 06/09/2018 VICKI Edouard Primary VICKI HERNANDEZ[address] Insurance:MEDICAL MILLERDOB: [facility] [id number], Number: Repository [place] [address]Ojj: [id number] Date:6392-30-15HE BOX () [address], [place] [address]NA: 06/09/2018 Secondary NOT GIVENUNK [place] Insurance:SELF PAY [facility] Number: Effective Repository Date:2018-06-09 06/07/2018 VICKI Edouard Primary VICKI HERNANDEZ[address] Insurance:MEDICAL MILLERDOB: [facility] [id number], Number: Repository [place] [address]Qfb: [id number] Date:2448-66-54EO [address] () [address], [place] [address]TJ: 06/07/2018 Secondary NOT GIVENUNK [place] Insurance:SELF PAY [facility] Number: Effective Repository Date:2018-05-23 05/11/2018 VICKI Edouard Primary VICKI HERNANDEZ[address] Insurance:MEDICAL MILLERDOB: [facility] [id number], Number: [place]ository [place] [address]Xjm: [id number] Date:9209-93-27EX BOX () [address], [place] [address]UU: 05/11/2018 Secondary NOT GIVENUNK [place] Insurance:SELF PAY [facility] Number: Effective Repository Date:2018-05-11 05/10/2018 VICKI Edouard Primary VICKI HERNANDEZ[address] Insurance:MEDICAL MILLERDOB: [facility] [id number], Number: Repository [place] [address]Kwh: [id number] Date:9736-85-43RG [address] () [address], [place] [address]CA: 05/10/2018 Secondary NOT GIVENUNK [place] Insurance:SELF PAY [facility] Number: Effective Repository Date:2018-04-23 05/10/2018 VICKI W Primary VICKI HERNANDEZ[address] Insurance:MEDICAL MILLERDOB: Community [address] [facility] [id number], Number: Repository [place] [address]Inf: [id number] Date:2181-30-68VN BOX () [address] [place] [address]QV: 05/10/2018 Secondary NOT GIVENUNK [place] Insurance:SELF PAY [facility] Number: Effective Repository Date:2018-05-10 04/11/2018 VICKI W Primary VICKI W [place] HERNANDEZ[address] Insurance:MEDICAL MILLERDOB: Community [address] [facility] [id number], Number: Repository [place] [id number]: [id number] Date:1676-71-49AE BOX () [address] [place] [address]IU: 04/11/2018 Secondary NOT GIVENUNK [place] Insurance:SELF PAY [facility] Number: Effective Repository Date:2018-03-23 03/07/2018 VICKI W Primary VICKI HERNANDEZ[address] Insurance:MEDICAL MILLERDOB: Community [address] [facility] [id number], Number: Repository [place] [address]Dww: [id number] Date:7803-44-58YT BOX () [address], [place] [address]WA: 03/07/2018 Secondary NOT GIVENUNK [place] Insurance:SELF PAY [facility] Number: Effective Repository Date:2018-03-04 03/07/2018 VICKI W Primary VICKI HERNANDEZ[address] Insurance:MEDICAL MILLERDOB: [facility] [id number], Number: Repository [place] [address]Fwc: [id number] Date:5678-37-07JB BOX (HP) [address], [place] [address]SR: 03/07/2018 Secondary NOT GIVENUNK [place] Insurance:SELF PAY [facility] Number: Effective Repository Date:2018-03-07 12/29/2017 SPECIALITY Primary [facility] Insurance:SELECT [facility] [id number] [facility] SPECIALTY Repository DR PATINO [facility] Number: [id number]: [phone] [phone] (HP) Date:1319 [facility] [place] [place] [address]TH: 12/29/2017 Secondary [facility] Medical Insurance:SUPERMED [facility] Number: Repository [id number] Date:9762-32-69[address], [place] [address]SD: 12/24/2017 VICKI W Primary VICKI HERNANDEZ[address] Insurance:MEDICAL MILLERDOB: [facility] [id number], Number: Repository [place] [address]Zcz: [id number] Date:2058-82-47DY BOX (HP) [address], [place] [address]WU: 12/24/2017 Secondary NOT GIVENUNK [place] Insurance:SELF PAY [facility] Number: Effective Repository Date:2017-12-24 12/24/2017 VICKI W Primary VICKI HERNANDEZ[address] Insurance:MEDICAL MILLERDOB: [facility] [id number], Number: Repository [place] [address]Pif: [id number] Date:6946-53-81XA [address] () [address], [place] [address]XR: 12/24/2017 Secondary NOT GIVENUNK [place] Insurance:SELF PAY [facility] Number: Effective Repository Date:2017-12-24 12/24/2017 VICKI Edouard Primary VICKI HERNANDEZ[address] Insurance:MEDICAL MILLERDOB: Community [address] [facility] [id number], Number: [place]ository [place] [address]Gvf: [id number] Date:0651-76-63ST BOX () [address] [place] [address]KB: 12/24/2017 Secondary NOT GIVENUNK [place] Insurance:SELF PAY [facility] Number: Effective Repository Date:2017-12-24 12/24/2017 VICKI W Primary VICKI HERNANDEZ[address] Insurance:MEDICAL MILLERDOB: Community [address] [facility] [id number], Number: [place]ository [place] [address]Lec: [id number] Date:8164-57-53GQ BOX () [address] [place] [address]FG: 12/24/2017 Secondary NOT GIVENUNK [place] Insurance:SELF PAY [facility] Number: Effective Repository Date:2017-12-24 12/24/2017 VICKI W Primary VICKI HERNANDEZ[address] Insurance:MEDICAL MILLERDOB: [facility] [address] [facility] [id number], Number: Repository [place] [address]Msp: [id number] Date:8822-32-58HA BOX () [address] [place] [address]KN: 12/24/2017 Secondary NOT GIVENUNK [place] Insurance:SELF PAY [facility] Number: Effective Repository Date:2017-12-24 12/24/2017 VICKI W Primary VICKI W [place] [id number] Insurance:MEDICAL MILLERDOB: [facility] [address] [facility] [id number], Number: Repository [place] [address]Pmp: [id number] Date:7220-45-03OC BOX () [address], [place] [address]MT: 12/24/2017 Secondary NOT GIVENUNK [place] Insurance:SELF PAY [facility] Number: Effective Repository Date:2017-12-24 12/24/2017 VICKI W Primary VICKI W [place] [id number] Insurance:MEDICAL M[facility]ERDOB: [facility] [id number], Number: [place]ository [place] [address]Mbo: [id number] Date:2861-22-16AX BOX () [address] [place] [address]WS: 12/24/2017 Secondary NOT GIVENUNK [place] Insurance:SELF PAY [facility] Number: Effective Repository Date:2017-12-24 12/24/2017 VICKI W Primary VICKI HERNANDEZ[address] Insurance:MEDICAL MILLERDOB: [facility] [id number], Number: Repository [place] [address]Gyv: [id number] Date:8058-44-79SA BOX () [address] [place] [address]WI: 12/24/2017 Secondary NOT GIVENUNK [place] Insurance:SELF PAY [facility] Number: Effective Repository Date:2017-12-24 12/24/2017 VICKI W Primary VICKI HERNANDEZ[address] Insurance:MEDICAL MILLERDOB: [facility] [id number], Number: Repository [place] [address]Sav: [id number] Date:4617-65-82SD BOX () [address] [place] [address]EP: 12/24/2017 Secondary NOT GIVENUNK [place] Insurance:SELF PAY [facility] Number: Effective Repository Date:2017-12-24 12/24/2017 VICKI Edouard Primary VICKI [address]NANDEZ[address] Insurance:MEDICAL MILLERDOB: [facility] [id number], Number: Repository [place] [address]Zuh: [id number] Date:1435-13-35ND BOX () [address], [place] [address]LA: 12/24/2017 Secondary NOT GIVENUNK [place] Insurance:SELF PAY [facility] Number: Effective Repository Date:2017-12-24 12/24/2017 VICKI Edouard Primary VICKI HERNANDEZ[address] Insurance:MEDICAL MILLERDOB: [facility] [id number], Number: [place]ository [place] [address]Hwe: [id number] Date:4816-26-65XP BOX () [address], [place] [address]BI: 12/24/2017 Secondary NOT GIVENUNK [place] Insurance:SELF PAY [facility] Number: Effective Repository Date:2017-12-24 12/24/2017 VICKI Edouard Primary VICKI HERNANDEZ[address] Insurance:MEDICAL MILLERDOB: [facility] [id number], Number: [place]ository [place] [address]Fdz: [id number] Date:0788-46-86JN BOX () [address], [place] [address]QY: 12/24/2017 Secondary NOT GIVENUNK [place] Insurance:SELF PAY [facility] Number: Effective Repository Date:2017-12-24 12/24/2017 VICKI Edouard Primary VICKI [id number] Insurance:MEDICAL MILLERDOB: [facility] [id number], Number: [place]ository [place] [id number]: [id number] Date:0163-82-34NE [address] () [address], [place] [address]CZ: 12/24/2017 Secondary NOT GIVENUNK [place] Insurance:SELF PAY [facility] Number: Effective Repository Date:2017-12-24 12/24/2017 VICKI W Primary VICKI [address] Insurance:MEDICAL MILLERDOB: Community [address] [facility] [id number], Number: [place]ository [place] [address]Jpz: [id number] Date:9206-62-61TN BOX () [address] [place] [address]SC: 12/24/2017 Secondary NOT GIVENUNK [place] Insurance:SELF PAY [facility] Number: Effective Repository Date:2017-12-24 12/24/2017 VICKI W Primary VICKI W Sheila [id number] Insurance:MEDICAL MILLERDOB: Community [address] [facility] [id number], Number: Repository [place] [id number]: [id number] Date:4555-88-76NJ [address] () [address], [place] [address]ZB: 12/24/2017 Secondary NOT GIVENUNK [place] Insurance:SELF PAY [facility] Number: Effective Repository Date:2017-12-24 12/24/2017 VICKI W Primary VICKI [address] Insurance:MEDICAL MILLERDOB: Community [address] [facility] [id number], Number: Repository [place] [address]Xcz: [id number] Date:4827-00-19IH [address] () [address], [place] [address]QC: 12/24/2017 Secondary NOT GIVENUNK [place] Insurance:SELF PAY [facility] Number: Effective Repository Date:2017-12-24 12/24/2017 VICKI Edouard Primary VICKI Sosa [id number] Insurance:MEDICAL [facility]ERDOB[facility] [id number], Number: [place]ository [place] [id number]: [id number] Date:0833-90-98KC [address] () [address], [place] [address]VR: 12/24/2017 Secondary NOT GIVENUNK [place] Insurance:SELF PAY [facility] Number: Effective Repository Date:2017-12-24 12/24/2017 VICKI Edouard Primary VICKI Godinez MILLERDOB: Insurance:MEDICAL MILLERDOB: [facility] [id number] Repository KIRBY%[facility] Number: [address] [place] [address], [id number] [id number] [place] [id number]: Date:Plan Name: () 12/14/2017 VICKI Edouard Primary VICKI Godinez MILLERDOB: Insurance:MEDICAL MILLERDOB: [facility] [id number] Repository KIRBY%[facility] Number: 83%[facility], [id number] [id number]: Date:Plan Name:[facility] [id number] () 12/08/2017 VICKI Edouard Primary VICKI Sosa [id number] Insurance:MEDICAL MILLERDOB: [facility] [id number], Number: [place]ository [place] [id number]: [id number] Date:7617-95-27JH BOX (HP) [address], [place] [address]XJ: 12/08/2017 Secondary NOT GIVENUNK [place] Insurance:SELF PAY [facility] Number: Effective Repository Date:2017-12-08 12/06/2017 VICKI W Primary VICKI [address] Insurance:MEDICAL MILLERDOB: [facility] [id number], Number: [place]ository [place] [address]Dwi: [id number] Date:1639-32-18ZY [facility] () [address] [place] [address]RF: 12/06/2017 Secondary NOT GIVENUNK [place] Insurance:SELF PAY [facility] Number: Effective Repository Date:2017-12-06 12/06/2017 Vicki W Primary Vicki Hernandez[address] Insurance:MEDICAL MillerDOB: [facility] [id number], Number: [place]ository [place] [id number]: [id number] Date:0669-67-54ZU [facility] () [address] [place] [address]LY: 12/06/2017 Secondary NOT GIVENUNK [place] Insurance:SELF PAY [facility] Number: Effective Repository Date:2017-12-06 12/06/2017 Vicki W Primary Vicki Hernandez[address] Insurance:MEDICAL MillerDOB: [facility] [id number], Number: [place]ository [place] [address]Jvj: [id number] Date:6859-69-40AB [facility] () [address] [place] [address]TL: 12/06/2017 Secondary NOT GIVENUNK [place] Insurance:SELF PAY [facility] Number: Effective Repository Date:2017-12-06 12/06/2017 Vicki W Primary Vicki Hernandez[address] Insurance:MEDICAL MillerDOB: [facility] [id number], Number: [place]ository [place] [address]Hqq: [id number] Date:0979-67-64ZU [address] () [address], [place] [address]TB: 12/06/2017 Secondary NOT GIVENUNK [place] Insurance:SELF PAY [facility] Number: Effective Repository Date:2017-12-06 12/06/2017 Vicki Edouard Primary Vicki Hernandez[address] Insurance:MEDICAL MillerDOB: [facility] [address] [facility] [id number], Number: [place] [id number]: [id number] Date:9606-70-03KC BOX () [address] [place] [address]MW: 12/06/2017 Secondary NOT GIVENUNK [place] Insurance:SELF PAY [facility] Number: Effective Repository Date:2017-12-06 12/06/2017 Vicki W Primary Vicki Sosa [id number] Insurance:MEDICAL MillerDOB: [facility] [id number], Number: [place] [id number]: [id number] Date:9857-57-60YD BOX () [address] [place] [address]UV: 12/06/2017 Secondary NOT GIVENUNK [place] Insurance:SELF PAY [facility] Number: Effective Repository Date:2017-12-06 12/06/2017 Vicki W Primary Vicki Hernandez[address] Insurance:MEDICAL MillerDOB: [facility] [id number], Number: [place] [address]Tcg: [id number] Date:8707-22-45CM BOX () [address] [place] [address]RO: 12/06/2017 Secondary NOT GIVENUNK [place] Insurance:SELF PAY [facility] Number: Effective Repository Date:2017-12-06 12/06/2017 Vicki W Primary Vicki W Sheila [id number] Insurance:MEDICAL MillerDOB: [facility] [id number], Number: Repository [place] [id number]: [id number] Date:8740-70-09NV [address] () [address], [place] [address]OP: 12/06/2017 Secondary NOT GIVENUNK [place] Insurance:SELF PAY [facility] Number: Effective Repository Date:2017-12-06 12/06/2017 Vicki W Primary Vicki W Sheila [id number] Insurance:MEDICAL MillerDOB: [facility] [id number], Number: [place]ository [place] [address]Ygq: [id number] Date:6310-04-45QL [address] () [address], [place] [address]IN: 12/06/2017 Secondary NOT GIVENUNK [place] Insurance:SELF PAY [facility] Number: Effective Repository Date:2017-12-06 12/06/2017 Vicki W Primary Vicki W Sheila [id number] Insurance:MEDICAL MillerDOB: [facility] [id number], Number: [place]ository [place] [id number]: [id number] Date:3239-58-42FQ [address]OX () [address] [place] [address]AS: 12/06/2017 Secondary NOT GIVENUNK [place] Insurance:SELF PAY [facility] Number: Effective Repository Date:2017-12-06 12/06/2017 Vicki W Primary Vicki W Sheila [id number] Insurance:MEDICAL MillerDOB: [facility] [id number], Number: [place]ository [place] [id number]: [id number] Date:0584-41-13XZ [address] () [address], [place] [address]XK: 12/06/2017 Secondary NOT GIVENUNK [place] Insurance:SELF PAY [facility] Number: Effective Repository Date:2017-12-06 12/06/2017 Vicki Edouard Primary Vicki Hernandez[address] Insurance:MEDICAL MillerDOB: [facility] [id number], Number: [place]ository [place] [id number]: [id number] Date:9393-21-53DB [address] () [address], [place] [address]AW: 12/06/2017 Secondary NOT GIVENUNK [place] Insurance:SELF PAY [facility] Number: Effective Repository Date:2017-12-06 12/06/2017 VICKI Edouard Primary VICKI [id number] Insurance:MEDICAL MILLERDOB: [facility] [id number], Number: [place]ository [place] [id number]: [id number] Date:6099-37-69XX [address] () [address], [place] [address]FM: 12/06/2017 Secondary NOT GIVENUNK [place] Insurance:SELF PAY [facility] Number: Effective Repository Date:2017-12-06
== END 2018-07-26 15:46 | disposition skilled nursing facility (03) | DRG 291 ==
LOC: ED 22:14 → PCU 23:29
PROVIDERS: Family Medicine; Physician Assistant; Admitting Provider Hospitalist; Emergency Provider Emergency Medicine; Family Provider Family Medicine; Visit Provider Internal Medicine
DX: I13.0 Hypertensive heart and chronic kidney disease with heart failure and stage 1 through stage 4 chronic kidney disease, or unspecified chronic kidney disease (principal); J96.01 Acute respiratory failure with hypoxia; I50.33 Acute on chronic diastolic (congestive) heart failure; J44.1 Chronic obstructive pulmonary disease with (acute) exacerbation; Z68.45 Body mass index [BMI] 70 or greater, adult; L97.922 Non-pressure chronic ulcer of unspecified part of left lower leg with fat layer exposed; L97.912 Non-pressure chronic ulcer of unspecified part of right lower leg with fat layer exposed; I27.20 Pulmonary hypertension, unspecified; G47.33 Obstructive sleep apnea (adult) (pediatric); E66.01 Morbid (severe) obesity due to excess calories; Z23 Encounter for immunization; I89.0 Lymphedema, not elsewhere classified; F32.9 Major depressive disorder, single episode, unspecified; Z91.19 Patient's noncompliance with other medical treatment and regimen; F41.9 Anxiety disorder, unspecified; N18.3 Chronic kidney disease, stage 3 (moderate); I87.2 Venous insufficiency (chronic) (peripheral); I48.2 Chronic atrial fibrillation; Z79.4 Long term (current) use of insulin; Z87.891 Personal history of nicotine dependence; Z79.01 Long term (current) use of anticoagulants; D50.9 Iron deficiency anemia, unspecified; E11.22 Type 2 diabetes mellitus with diabetic chronic kidney disease; Z86.14 Personal history of Methicillin resistant Staphylococcus aureus infection
CPT/HCPCS: 36415; 51702; 71045; 80048; 82962; 83605; 83735; 83880; 84443; 84484; 85025; 87040; 93005; 93306; 93970; 94640; 94762; 97110; 97162; 97166; 97530; 97535; 99285; J7030; Q9957; 90686; A4216; J1940

== ENCOUNTER 2018-08-10 17:19 | Inpatient (IN) | payer OTHER, SELFPAY ==
[2018-07-23 00:22] VITALS: BMI 72.8
[2018-08-10] VITALS (14 sets, daily range): BP systolic 105–139; BP diastolic 64–122; PULSE 93–147; RESP 15–35; TEMP 36.8–36.9; O2SAT 88–99; BMI 74.7; BMI 68.2
--- NOTE | 2018-08-10 18:07 | EKG12_ITS ---
Test Reason : Blood Pressure : / mmHG Vent. Rate : 140 BPM Atrial Rate : 144 BPM P-R Int : 000 ms QRS Dur : 082 ms QT Int : 338 ms P-R-T Axes : 000 062 220 degrees QTc Int : 516 ms Atrial fibrillation with rapid ventricular response with premature ventricular or aberrantly conducte d complexes Low voltage QRS Septal infarct , age undetermined Abnormal ECG Confirmed by ARTURO LAZARO, MIKO ([id number]), newspaper or periodical editor CHECO HERNANDEZ ([id number]) on 08/12/2018 1:56:10 PM Referred By: Annetta Tolentino Confirmed By:MIKO MORRIS MD
[2018-08-10 18:27] LABS: International Normalized Ratio 1.5; Prothrombin Time (Protime)PT. 18.4 SECONDS (11.7-14.9)
[2018-08-10] MEDS: dilTIAZem 25 MG/5 ML Vial 20 MG IV BOLUS (18:27)
[2018-08-10 18:30] LABS: Absolute Lymphocyte Count 1.28 X10^3/ul (0.83-4.51); Basophil# 0.01 X10^3/uL; Basophil% 0.1 % (0-1); Eosinophil# 0.18 X10^3/uL; Eosinophils% 2.6 % (0-5); Hematocrit 39.9 % (37-47); Hemoglobin 11.9 g/dl (12.0-15.0); Lymphocyte # 1.28 X10^3/ul (4.0); Lymphocyte % 18.4 % (19-41); Mean Corp Hgb Conc 29.8 g/gl (32-36); Mean Corpuscular Volume 97.3 fL (81-99); Mean Platelet Vol. 9.9 fl (6.2-12.0); Monocyte# 0.44 X10^3/uL; Monocyte% 6.3 % (0-10); Neutrophil # 5.02 X10^3/uL (2.7-7.7); Neutrophil % 72.5 % (47-70); Platelet Count 172 K/mm3 (150-450); RBC Distribution Width SD 67.2 fl (35.1-43.9); White Blood Count 6.9 K/mm3 (4.4-11.0)
[2018-08-10 18:30] LABS: Mucous, Urine 0 SEEN /hpf (<or=2+); Red Blood Cells-Urine 0 SEEN /hpf (0-5); Squamous Epithelial Cells - UA 0 SEEN /hpf (5-10)
--- NOTE | 2018-08-10 18:30 | RAD_ITS ---
STUDY: X-RAY CHEST REASON FOR EXAM: Female, 57 years old. Shortness of breath TECHNIQUE: Single AP portable view of the chest. COMPARISON: Prior study of 07/26/2018 FINDINGS: bus monitor leads are present. The lungs are clear and expanded. There is no demonstrated pleural abnormality. There is moderate cardiac enlargement. There is bilateral hilar prominence. Normal visualized pulmonary arteries. Normal visualized aortic arch and descending thoracic aorta. Normal visualized thoracic spine. Normal visualized ribs, clavicles, and shoulders. There is no demonstrated abnormality of the visualized soft tissue structures of the upper abdomen. RAD/Chest 1 View (Portable) IMPRESSION: Moderate cardiomegaly. Bilateral hilar prominence appearing to represent vascular structure. No acute cardiopulmonary disease process is seen. Chest findings are stable in the interval. Electronically Signed: Dong Lock MD at 19:04 EST , Service support ,
[2018-08-10 18:32] LABS: Differential Indicated SCAN CRITERIA MET; POSITIVE COUNT NO; POSITIVE DIFFERENTIAL NO; POSITIVE MORPHOLOGY YES
[2018-08-10 18:32] LABS: Color, Urine Yellow (Yellow); Glucose, Dipstick Normal (Normal); Ketone-Dipstick Negative (Negative); Leukocyte Esterase-Dipstick 25 /ul (Negative); Nitrite-Dipstick Negative (Negative); Occult Blood-Urine Negative /ul (Negative); Protein-Dipstick 15 mg/dl (Negative); Urine Bilirubin Dipstick Negative (Negative); Urine Clarity Clear (Clear); Urine Urobilinogen Normal (Normal)
[2018-08-10 18:34] LABS: Anion Gap 7 (5-15); BUN 38 mg/dL (7-18); BUN/Creat Ratio 39.7 RATIO (10-20); Calcium,Total 8.3 mg/dL (8.5-10.1); Chloride 105 mmol/L (98-107); Creatinine, Serum 0.96 mg/dL (0.55-1.02); EST Glomerular Filtration Rate 63 mL/min (>60); Est Glom Filt Rate - Afr Amer 77 mL/min (>60); Estimated Creatinine Clearance 56.78 ml/min; Glucose 117 mg/dL (74-106); Potassium 4.4 mmol/L (3.5-5.1); Sodium Level 143 mmol/L (136-145)
[2018-08-10 18:40] LABS: White Blood Cells 0-5 SEEN /hpf (0-5)
[2018-08-10 18:41] LABS: Bacteria RARE /hpf (None Seen)
[2018-08-10 19:00] LABS: Anisocytosis 1+; Platelet Estimate ADEQUATE (ADEQ); Red Cell Morphology N CHROM NORMAL (NORM C&C)
[2018-08-10 19:03] LABS: BNP,B-Type NATRIURETIC PEPTIDE 231.6 pg/mL (0-100)
--- NOTE | 2018-08-10 19:19 | ED.DCSUM_ITS ---
- ER Visit Summary Date of Service: 08/10/18 Chief Complaint: Increased swelling, shortness of breath History of Present Illness: The patient is a 57 F sent in by her nurse practitioner for increased swelling and shortness of breath. Nurse practitioner has concerns for CHF exacerbation. Patient states that since yesterday she has had increased swelling in both legs and abdominal wall. She is short of breath with laying flat and with exertion. She denies chest pain. She has a history of CHF, COPD, diabetes, hypertension, lymphedema, A. fib on Eliquis. Physical Examination: Vitals are stable. HR 133. Patient is afebrile. Alert no acute distress. 98% on 2L HEENT exam is unremarkable. Neck is supple. Lungs are clear and equal bilaterally. Heart is irregularly irregular rhythm. Abdomen is soft morbidly obese, nontender Extremities symmetric edema Skin is warm and dry. No focal neurologic deficit. Remainder of exam is unremarkable. Emergency Department Course and Treatment: EKG is A. fib rate of 140. Chest x- ray shows chronic changes. CBC shows hemoglobin 11.9. Chemistries show glucose 117, BUN 38. Urinalysis unremarkable. Troponin is negative. BNP 231. Patient was initially given IV Cardizem with improvement of her heart rate to the 80s. She is given IV Lasix. She does not feel that she can go home. She is satting 98% on 2 L. She does not typically wear oxygen at home. Will discuss with hospitalist for admission. Disposition: Observation Impression: CHF exacerbation, A. fib with RVR This note was generated with [employer] dictation software. It may contain incorrect words, spelling, and punctuation that were not noted in review of the chart prior to signing ED Disposition - Plan for ED Patient: Chief Complaint: Shortness of Breath Referrals: Rajesh Reynolds [Primary Care Provider] -
--- NOTE | 2018-08-10 19:21 | HP.PCM_ITS ---
History of Present Illness Date of Admission: 08/10/18 Chief Complaint: Shortness of breath and lower extremity swelling for 2 weeks The patient is a 57 year old F with an extensive past medical history as listed below including CHF, A. fib, COPD, hypertension and morbid obesity as well as HUNTER. She was admitted through the ED on 08/10/2018 from home with a complaint of worsening shortness of breath and lower extremity swelling for the past 2 weeks. Shortness of breath progressively worsened with assisted orthopnea and PND. Patient states that she does have a history of CHF but has not been on her Lasix since November after she was taken off of it by her doctors. She cannot tell why she was taken off of it. She has an assisted cough which is nonproductive but denies any fever or chills, chest pain, abdominal pain, diarrhea vomiting. Vitals in the ED was significant for respiratory rate of 19 and she was saturating at 97% on 2 L of oxygen. Chemistry was unremarkable initial troponin was negative. BNP was 231.6 and CBC was unremarkable. On admission in the ED, EKG showed A. fib with RVR. She was given IV Cardizem in the ED and her heart rate went down to the 80s. She was also given IV Lasix. CXR showed moderate cardiomegaly with bilateral hilar prominence. She is being admitted to manage for CHF exacerbation and A. fib with RVR. [] Past Medical History Past Medical History (Chronic Problems): Chronic Problems (Last Reviewed 07/23/18 @ 03:27 by Billy Bowling MD) Ulcer of right lower extremity with fat layer exposed (Chronic) Ulcer of left lower extremity with fat layer exposed (Chronic) Venous insufficiency of both lower extremities (Chronic) Hx MRSA infection (Chronic) COPD exacerbation (Chronic) Lymphedema (Chronic) Depression (Chronic) Atrial fibrillation with RVR (Chronic) Chronic acquired lymphedema (Chronic) Nonhealing ulcer of multiple sites of left lower extremity with fat layer exposed (Chronic) Iron deficiency anemia, unspecified (Chronic) Sleep apnea (Chronic) Poor compliance with CPAP treatment (Chronic) Biatrial enlargement (Chronic) Non-healing wound (Chronic) Chronic anticoagulation (Chronic) Diastolic CHF, chronic (Chronic) Pulmonary hypertension (Chronic) Morbid obesity (Chronic) Chronic atrial fibrillation (Chronic) Type 2 diabetes mellitus (Chronic) Hypertension (Chronic) Medical History: Medical History (Last Reviewed 07/23/18 @ 03:27 by Billy Bowling MD) Pulmonary hypertension (Chronic) I27.2 Morbid obesity (Chronic) E66.01 Chronic atrial fibrillation (Chronic) I48.2 Type 2 diabetes mellitus (Chronic) E11.9 Hypertension (Chronic) I10 Severe sepsis A41.9, R65.20 COPD (chronic obstructive pulmonary disease) J44.9 Hypersomnia G47.10 Nocturnal hypoxia G47.34 HUNTER (obstructive sleep apnea) G47.33 Post-nasal drip R09.82 Acute on chronic congestive heart failure (Resolved) I50.9 Cellulitis of leg, right (Resolved) L03.115 ulnar nerve surgery Allergies latex Allergy (Verified 07/22/18 21:42) Itching pentazocine lactate [From Talwin] Allergy (Verified 07/22/18 21:42) Itching phenobarbital Allergy (Verified 07/22/18 21:42) Itching tree nut Allergy (Verified 07/22/18 21:42) Anaphylaxis codeine Adverse Reaction (Verified 07/22/18 21:42) Upset Stomach Home Medications: Ambulatory Orders Medication Instructions Recorded albuterol sulfate HFA 90 2 puff INHALATION Q4H PRN g 08/26/17 mcg/actuation aerosol inhaler fluticasone 50 mcg/actuation nasal 2 spray INTRANASAL DAILY 08/26/17 spray,suspension Budesonide/Formoterol 160/4.5 1 inh INHALATION DAILY 12/06/17 [Symbicort 160/4.5 Mcg Inhaler (SP)] Acetaminophen [Pain Relief Extra 650 mg PO Q6H 12/24/17 Strength] Apixaban [Eliquis] 5 mg PO BID 03/07/18 Gabapentin [Neurontin] 400 mg PO 4X/DAY 03/07/18 Insulin Lispro [Humalog] 6 unit SQ TIDCM 03/07/18 Lorazepam [Ativan] 0.5 mg PO Q6H PRN PRN 03/07/18 Multivitamin [Daily Multiple 1 each PO DAILY 03/07/18 Vitamin] Venlafaxine HCl [Effexor Xr] 75 mg PO BID 03/07/18 Nut.tx.gluc Intol,Lf,Soy/Fiber 237 ml PO BID 06/07/18 [Boost Glucose Control Liquid] Albuterol Aerosols [Ventolin 2.5 mg INHALATION Q2H PRN PRN 07/26/18 Aerosols] vial.neb. Diltiazem CD [Cardizem CD] 120 mg PO DAILY #1 capsule 07/26/18 Insulin Glargine [Lantus SoloStar 12 units SC QHS pen 07/26/18 Pen] Ipratropium/Albuterol Sulfate 3 ml INHALATION Q4H.RT ampul.neb 07/26/18 [Duoneb] Metoprolol Tartrate [Lopressor 100 mg PO BID tablet 07/26/18 (beta katie)] Potassium Chloride [K-Dur] 40 meq PO DAILYCM tablet 07/26/18 Prednisone 10 mg PO DAILY #18 tablet 07/26/18 Bisacodyl 10 mg RECTAL PRN PRN 08/10/18 Cyclobenzaprine HCl 10 mg PO QHS PRN PRN 08/10/18 Docusate Sodium 100 mg PO Q12H PRN PRN 08/10/18 Josafat Packet 1 packet PO BID 08/10/18 Magnesium Hydroxide [Milk of 400 mg PO PRN PRN 08/10/18 Magnesia] Mineral Oil 118 ml RECTAL PRN PRN 08/10/18 Polyethylene Glycol 3350 [Miralax] 17 gm PO DAILY 08/10/18 Torsemide 20 mg PO DAILY 08/10/18 Surgical History: Surgical History (Last Reviewed 07/23/18 @ 03:27 by Billy Bowling MD) H/O section Z98.891 1979 1989 H/O total hysterectomy Z98.890, Z90.710 1999 History of carpal tunnel release Z98.890 History of tonsillectomy Z98.890, Z90.89 1971 hip debridement 2011 Surgical History: cholecystectomy, hysterectomy - with BSO, tonsillectomy, - - 2 section. Lives: Alone Smoking Status: Former smoker Alcohol: None Drugs: None - *Family History Maternal Family History: Family History (Last Reviewed 07/23/18 @ 03:28 by Billy Bowling MD) Mother Colon cancer Diabetes Hypertension CHF (congestive heart failure) Father COPD (chronic obstructive pulmonary disease) Heart disease Diabetes Brother Heart disease Stomach cancer Sister Ovarian cancer History Items: No pertinent history Paternal Family History: Family History (Last Reviewed 07/23/18 @ 03:28 by Billy Bowling MD) Mother Colon cancer Diabetes Hypertension CHF (congestive heart failure) Father COPD (chronic obstructive pulmonary disease) Heart disease Diabetes Brother Heart disease Stomach cancer Sister Ovarian cancer History Items: No pertinent history Review of Systems Constitutional: Denies: Chills, Fever, Malaise, Weight Change Eyes: Denies: Blurred vision HEENT: Denies: Head Aches, Sinus Congestion, Sinus Drainage Cardiovascular: Reports: Edema, Orthopnea, Palpitations, Paroxysmal Noc. Dyspnea. Denies: Chest Pain, Chest Pressure, Chest Tightness, Heaviness, Light Headedness, Syncope Respiratory: Reports: Shortness of Breath, Shortness of breath at rest, Shortness of breath upon exertion. Denies: Cough, Sputum production Gastrointestinal: Denies: Abdominal Pain, Nausea, Vomiting Genitourinary: Denies: Dysuria Musculoskeletal: Denies: Joint Pain, Joint Tenderness Skin: Denies: Rash, Wounds Neurological: Denies: Numbness, Tingling, Focal weakness Psychiatric: Denies: Anxiety, Depression, Homicidal Ideations, Suicidal Ideations Hematologic/ Lymphatic: Denies: Easy Bruising, Easy Bleeding VTE Information - Inpt Only VTE Present on Admission: No VTE Pharm Prophylaxis ordered?: Yes - Physical Exam General: Alert, Oriented x3, Cooperative, No apparent distress HEENT: Atraumatic, PERRLA, EOMI, Normocephalic Oral: Moist Mucosa Neck: Supple, No JVD, Negative Carotid Bruits Lungs: - - decreased breath sounds bibasally with no mild fine crackles auscultated Cardiovascular: Normal S1, Normal S2, No murmurs, Irregular Rate, Tachycardic Abdomen: Bowel Sounds Present, Soft, Non Tender, Non-Distended, No Hepato- splenomegaly, Obese - morbidly obese Extremities: No clubbing, No cyanosis, Capillary Refill Less than 3 Seconds, Edema Skin: No rashes, No breakdown Musculoskeletal: No Tenderness to Palpation of Joints or Extremities Lymphatic: No Cervical, Supraclavicular, or Inguinal Adenopathy Neurological: Cranial nerves II-XII grossly intact, Neuro grossly intact, Motor Exam 5/5 strength throughout Psych/Mental Status: Normal Affect, Appropriate, Alert and oriented to time, place, person, mood and affect Vital Signs Temp Pulse Resp BP Pulse Ox 98.5 F 133 H 22 H 110/78 98 08/10/18 18:25 08/10/18 18:25 08/10/18 18:25 08/10/18 18:22 08/10/18 18:25 Oxygen Flow Rate (L/min) 2 Oxygen Delivery Method Room Air Weight: 449 lb Body Mass Index (BMI) 74.7 Laboratory Tests Past 24 Hrs 08/10/18 08/10/18 08/10/18 17:26 17:26 17:26 WBC 6.9 RBC 4.10 L Hgb 11.9 L Hct 39.9 MCV 97.3 MCH 29.0 MCHC 29.8 L RDW 19.0 H RDW Differential 67.2 H Plt Count 172 MPV 9.9 Immature Gran % (Auto) 0.100 Neut % (Auto) 72.5 H Lymph % (Auto) 18.4 L [place] % (Auto) 6.3 Eos % (Auto) 2.6 Baso % (Auto) 0.1 Absolute Neuts (auto) 5.0 Absolute Lymphs (auto) 1.28 Total Counted Not Reportable Platelet Estimate ADEQUATE RBC Morphology N CHROM Anisocytosis 1+ PT 18.4 H INR 1.5 Sodium 143 Potassium 4.4 Chloride 105 Carbon Dioxide 31.0 Anion Gap 7 BUN 38 H Creatinine 0.96 Estim Creat Clear Calc 56.78 Est GFR (MDRD) Af Amer 77 Est GFR (MDRD) Non-Af 63 BUN/Creatinine Ratio 39.7 H Glucose 117 H Calcium 8.3 L Troponin I < 0.015 B-Natriuretic Peptide Urine Color Urine Clarity Urine pH Ur Specific [place] Urine Protein Urine Glucose (UA) Urine Ketones Urine Occult Blood Urine Nitrite Urine Bilirubin Urine Urobilinogen Ur Leukocyte Esterase Urine RBC Urine WBC Ur Squamous Epith Cells Urine Bacteria Urine Mucus 08/10/18 08/10/18 17:26 17:55 WBC RBC Hgb Hct MCV MCH MCHC RDW RDW Differential Plt Count MPV Immature Gran % (Auto) Neut % (Auto) Lymph % (Auto) [place] % (Auto) Eos % (Auto) Baso % (Auto) Absolute Neuts (auto) Absolute Lymphs (auto) Total Counted Platelet Estimate RBC Morphology Anisocytosis PT INR Sodium Potassium Chloride Carbon Dioxide Anion Gap BUN Creatinine Estim Creat Clear Calc Est GFR (MDRD) Af Amer Est GFR (MDRD) Non-Af BUN/Creatinine Ratio Glucose Calcium Troponin I B-Natriuretic Peptide 231.6 H Urine Color Yellow Urine Clarity Clear Urine pH 7.0 Ur Specific [place] 1.010 Urine Protein 15 H Urine Glucose (UA) Normal Urine Ketones Negative Urine Occult Blood Negative Urine Nitrite Negative Urine Bilirubin Negative Urine Urobilinogen Normal Ur Leukocyte Esterase 25 H Urine RBC 0 SEEN Urine WBC 0-5 SEEN Ur Squamous Epith Cells 0 SEEN Urine Bacteria RARE Urine Mucus 0 SEEN Diagnostic Data Chest X-Ray 08/10/18 18:30 IMPRESSION: Moderate cardiomegaly. Bilateral hilar prominence appearing to represent vascular structure. No acute cardiopulmonary disease process is seen. Chest findings are stable in the interval. Electronically Signed: Dong Lock MD at 19:04 EST , Service support , Assessment/Plan All Active Problems (Last Reviewed 07/23/18 @ 03:27 by Billy Bowling MD) Acute hypoxemic respiratory failure (Acute) Acute kidney injury (Acute) Hyperkalemia (Acute) Digoxin toxicity (Acute) Vancomycin toxicity (Resolved) Bradycardia (Resolved) Acute on chronic diastolic (congestive) heart failure (Acute) Metabolic encephalopathy (Acute) Abscess of left lower extremity (Resolved) Abscess of right lower extremity (Resolved) Acute on chronic congestive heart failure (Resolved) Cellulitis of leg, right (Resolved) Diabetes with ulcer of lower extremity (Resolved) Methicillin resistant Staphylococcus aureus infection (Resolved) 57-year-old female admitted with a complaint of worsening shortness of breath, lower extremity swelling for 2 weeks. 1. CHF exacerbation * had associated orthopnea and PND * BNP was 231; patient is morbidly obese wtih BMI of 74.7; * CXR shwoed mild cardiomegaly and hilar prominence * initial troponin negative * admit to PCU with telemetry * has not been taking her torsemide; says her doctors took her off of it; she doesnt know why. Per EMR records, she was recently admitted about 3 weeks ago and managed for CHF exacerbation. It is therefore likely that patient has not been compliant with her Lasix as she is telling me that he was taken off of Lasix since November. * start IV lasix 40mg bid * 2D echo ): Mild global left ventricular systolic dysfunction with EF of 45% unable to assess diastolic dysfunction. Right atrium moderately enlarged left atrium moderately enlarged. Mildly dilated right ventricle. 2+ MVR and 1+ TVI. RVSP of 44 mmHg. * strict input output chart * fluid restriction to 1500cc every 24 hours * 2.Afib with RVR * HR was in 140s on admission; says she has been compliant with her cardizem and metoprolol * HR went down to 80s and 90s after she was given cardzem in ED * 2D echo as above * check TSH * continue cardizem and metoprolol and titrate doses as needed * on eliquis 5mg bid * 3. COPD: on breathing treatments. Mild wheezing in lung [place] bilaterally, likely due to CHF exacerbation. Will monitor 4. Diabetes mellitus: on insulin lantus 12IU qhs. ISS. Accuchecks ACHS 5. Deperssion; on venlafaxine 6. HUNTER: not compliant with CPAP. CPAP per home settings 7. Chronic lower extremity wounds and bilateral lower extremity lymphedema: Consult wound care nurse. 8. Super morbid obesity: BMI is 68.2. Severely complicates care of medical problems. DVT prophylaxis: on eliquis Code status: full code * Patient counseled extensively about different types of CODE STATUS including full code, DNR CCA and DNR CCA. Patient elects to be full code. Total mkkm-fc-udag time 17 minutes. Code Visit OBSV E&M: 22518 Initial observation care L3 Procedures: 33289 Advncd Care Plan 30 Min
[2018-08-10 21:25] LABS: Bedside Glucose 121 mg/dL (70-110)
[2018-08-10] MEDS: Furosemide 40 MG/4 ML Vial IV (21:40)
[2018-08-11] VITALS (33 sets, daily range): BP systolic 98–131; BP diastolic 62–107; PULSE 64–123; RESP 14–22; TEMP 36.3–36.8; O2SAT 91–97
[2018-08-11] MEDS: Acetaminophen 325 MG Tablet 650 MG PO ×3 (05:26→16:26)
[2018-08-11 06:45] LABS: Absolute Lymphocyte Count 0.97 X10^3/ul (0.83-4.51); Absolute Neutrophil Count 2.5 X10^3/uL (2.0-7.7); Basophil# 0.01 X10^3/uL; Basophil% 0.3 % (0-1); Eosinophils% 5.1 % (0-5); Hemoglobin 9.6 g/dl (12.0-15.0); Lymphocyte # 0.97 X10^3/ul (4.0); Lymphocyte % 24.5 % (19-41); Mean Corpuscular Hgb 29.5 pg (27.0-32.0); Mean Corpuscular Volume 98.5 fL (81-99); Mean Platelet Vol. 10.7 fl (6.2-12.0); Monocyte# 0.26 X10^3/uL; Monocyte% 6.6 % (0-10); Neutrophil # 2.51 X10^3/uL (2.7-7.7); Neutrophil % 63.2 % (47-70); Platelet Count 52 K/mm3 (150-450); RBC Distribution Width CV 18.8 % (11.6-14.6); RBC Distribution Width SD 64.1 fl (35.1-43.9); Red Blood Count 3.25 M/mm3 (4.2-5.4)
[2018-08-11 06:45] LABS: Bedside Glucose 134 mg/dL (70-110)
[2018-08-11] MEDS: Morphine 2 MG/ML Syringe 1 MG IV (06:46)
[2018-08-11 06:56] LABS: Anion Gap 8 (5-15); BUN 33 mg/dL (7-18); BUN/Creat Ratio 44.4 RATIO (10-20); Calcium,Total 8.1 mg/dL (8.5-10.1); Chloride 107 mmol/L (98-107); Creatinine, Serum 0.74 mg/dL (0.55-1.02); EST Glomerular Filtration Rate 85 mL/min (>60); Est Glom Filt Rate - Afr Amer 103 mL/min (>60); Estimated Creatinine Clearance 73.66 ml/min; Glucose 118 mg/dL (74-106); POSITIVE COUNT NO; POSITIVE DIFFERENTIAL NO; POSITIVE MORPHOLOGY NO; Potassium 4.5 mmol/L (3.5-5.1); Sodium Level 140 mmol/L (136-145)
[2018-08-11] MEDS: Ipratropium/Albuterol Sulfate 3 ML AMPUL.NEB INHALATION ×5 (07:12→23:33)
[2018-08-11] MEDS: Budesonide Respules 0.5 MG/2 ML AMPUL.NEB. INHALATION ×2 (07:13→19:36)
[2018-08-11] MEDS: Multivitamins,Therapeutic Tablet 1 TABLET PO (08:21)
[2018-08-11] MEDS: APIXABAN 5 MG TABLET PO ×2 (08:22→20:53)
[2018-08-11] MEDS: Venlafaxine XR 75 MG Capsule PO ×2 (08:22→20:53)
[2018-08-11] MEDS: Fluticasone 0.05% 1 SPRAY NASAL.SRY 2 SPRAY NASAL (08:22)
[2018-08-11] MEDS: dilTIAZem CD 120 MG Capsule PO (08:22)
[2018-08-11] MEDS: Gabapentin 400 MG Capsule PO ×4 (08:23→20:52)
[2018-08-11] MEDS: Furosemide 40 MG/4 ML Vial IV ×2 (08:23→17:45)
[2018-08-11] MEDS: Metoprolol Tartrate 100 MG Tablet PO ×2 (08:23→20:52)
[2018-08-11] MEDS: Polyethylene Glycol 3350 17 GM PACKET PO (08:29)
--- NOTE | 2018-08-11 09:14 | NURSING ---
PULSE OX ON ROOM AIR 83%. O2 APPLIED AT 2L, PULSE OX 94%.
[2018-08-11] MEDS: traMADol 50 MG Tablet PO ×2 (10:17→16:29)
[2018-08-11] MEDS: Nystatin Powder 15gm Bottle 1 APPLIC TOPICAL ×2 (10:18→20:54)
[2018-08-11] MEDS: Insulin Lispro 100 UNIT/ML INSULN.PEN SQ ×3 (11:05→20:52)
[2018-08-11 11:16] LABS: Bedside Glucose 181 mg/dL (70-110)
--- NOTE | 2018-08-11 11:45 | CASEMGMT ---
Per MEÑO Figueroa, referral needs sent to [facility] - patient if from [facility] and needs new pre-cert to return. Call placed to Harleen at [place], [place] to fax over available documents. [facility] will wait to submit for pre-cert until she has therapy documentation. Faxed referral (except PT/OT), confirmation received. Erin Stern LPN Clinical Support
--- NOTE | 2018-08-11 12:16 | NURSING ---
wound photo: right posterior lower leg
--- NOTE | 2018-08-11 12:17 | NURSING ---
wound photo: left posterior lower leg
--- NOTE | 2018-08-11 12:37 | PCM.PROGNOTE ---
<Erin Leon - Last Filed: 08/11/18 13:03> Subjective: Patient seen and examined. States her breathing is still really bad. Oxygen 96% on 2 L nasal cannula. Patient states she is not ready to be discharged yet. Concerned that she still has too much fluid. Wishes to return to SNF at discharge. - Physical Exam General: Alert, Oriented x3, Cooperative HEENT: Atraumatic, PERRLA, EOMI, Normocephalic Neck: Supple, No JVD, Negative Carotid Bruits Lungs: Clear to auscultation, Diminished Cardiovascular: - - Atrial for ablation, rate controlled. Abdomen: Bowel Sounds Present, Soft, Non Tender, Non-Distended, Obese Extremities: No clubbing, No cyanosis, Edema - Chronic lymphedema bilateral lower extremities Skin: - - Chronic wounds bilateral lower extremities, dressing intact. Musculoskeletal: No Tenderness to Palpation of Joints or Extremities Neurological: Cranial nerves II-XII grossly intact, Neuro grossly intact Psych/Mental Status: Normal Affect, Appropriate Vital Signs Temp Pulse Resp BP Pulse Ox 98.3 F 84 16 108/80 94 08/11/18 09:00 08/11/18 12:30 08/11/18 12:30 08/11/18 12:30 08/11/18 12:30 Oxygen Flow Rate (L/min) 2 Oxygen Delivery Method Nasal Cannula Weight: 410 lb Body Mass Index (BMI) 74.7 Intake and Output for Last 24 Hours 08/09/18 08/10/18 08/11/18 23:59 23:59 23:59 Intake Total 1207.7 / 1207.7 Output Total 2550 / 2550 Balance -1342.3 / -1342.3 Laboratory Tests Past 24 Hrs 08/10/18 08/10/18 08/10/18 17:26 17:26 17:26 WBC 6.9 RBC 4.10 L Hgb 11.9 L Hct 39.9 MCV 97.3 MCH 29.0 MCHC 29.8 L RDW 19.0 H RDW Differential 67.2 H Plt Count 172 MPV 9.9 Immature Gran % (Auto) 0.100 Neut % (Auto) 72.5 H Lymph % (Auto) 18.4 L Mccracken % (Auto) 6.3 Eos % (Auto) 2.6 Baso % (Auto) 0.1 Absolute Neuts (auto) 5.0 Absolute Lymphs (auto) 1.28 Total Counted Not Reportable Platelet Estimate ADEQUATE RBC Morphology N CHROM Anisocytosis 1+ PT 18.4 H INR 1.5 Sodium 143 Potassium 4.4 Chloride 105 Carbon Dioxide 31.0 Anion Gap 7 BUN 38 H Creatinine 0.96 Estim Creat Clear Calc 56.78 Est GFR (MDRD) Af Amer 77 Est GFR (MDRD) Non-Af 63 BUN/Creatinine Ratio 39.7 H Glucose 117 H Calcium 8.3 L Troponin I < 0.015 B-Natriuretic Peptide Urine Color Urine Clarity Urine pH Ur Specific [place] Urine Protein Urine Glucose (UA) Urine Ketones Urine Occult Blood Urine Nitrite Urine Bilirubin Urine Urobilinogen Ur Leukocyte Esterase Urine RBC Urine WBC Ur Squamous Epith Cells Urine Bacteria Urine Mucus 08/10/18 08/10/18 08/11/18 17:26 17:55 05:58 WBC 4.0 L RBC 3.25 L Hgb 9.6 L Hct 32.0 L MCV 98.5 MCH 29.5 MCHC 30.0 L RDW 18.8 H RDW Differential 64.1 H Plt Count 52 L MPV 10.7 Immature Gran % (Auto) 0.300 Neut % (Auto) 63.2 Lymph % (Auto) 24.5 Mccracken % (Auto) 6.6 Eos % (Auto) 5.1 H Baso % (Auto) 0.3 Absolute Neuts (auto) 2.5 Absolute Lymphs (auto) 0.97 Total Counted Not Reportable Platelet Estimate RBC Morphology Anisocytosis PT INR Sodium Potassium Chloride Carbon Dioxide Anion Gap BUN Creatinine Estim Creat Clear Calc Est GFR (MDRD) Af Amer Est GFR (MDRD) Non-Af BUN/Creatinine Ratio Glucose Calcium Troponin I B-Natriuretic Peptide 231.6 H Urine Color Yellow Urine Clarity Clear Urine pH 7.0 Ur Specific [place] 1.010 Urine Protein 15 H Urine Glucose (UA) Normal Urine Ketones Negative Urine Occult Blood Negative Urine Nitrite Negative Urine Bilirubin Negative Urine Urobilinogen Normal Ur Leukocyte Esterase 25 H Urine RBC 0 SEEN Urine WBC 0-5 SEEN Ur Squamous Epith Cells 0 SEEN Urine Bacteria RARE Urine Mucus 0 SEEN 08/11/18 05:58 WBC RBC Hgb Hct MCV MCH MCHC RDW RDW Differential Plt Count MPV Immature Gran % (Auto) Neut % (Auto) Lymph % (Auto) Mccracken % (Auto) Eos % (Auto) Baso % (Auto) Absolute Neuts (auto) Absolute Lymphs (auto) Total Counted Platelet Estimate RBC Morphology Anisocytosis PT INR Sodium 140 Potassium 4.5 Chloride 107 Carbon Dioxide 25.0 Anion Gap 8 BUN 33 H Creatinine 0.74 Estim Creat Clear Calc 73.66 Est GFR (MDRD) Af Amer 103 Est GFR (MDRD) Non-Af 85 BUN/Creatinine Ratio 44.4 H Glucose 118 H Calcium 8.1 L Troponin I B-Natriuretic Peptide Urine Color Urine Clarity Urine pH Ur Specific [place] Urine Protein Urine Glucose (UA) Urine Ketones Urine Occult Blood Urine Nitrite Urine Bilirubin Urine Urobilinogen Ur Leukocyte Esterase Urine RBC Urine WBC Ur Squamous Epith Cells Urine Bacteria Urine Mucus POC Glucose 08/11/18 08/11/18 08/10/18 11:02 06:31 21:19 POC Glucose 181 H 134 H 121 H Medical Necessity - Tobacco Use Smoking Status: Former smoker Tobacco Use: Cigarettes Assessment/Plan All Active Problems (Last Reviewed 07/23/18 @ 03:27 by Billy Bowling MD) Acute hypoxemic respiratory failure (Acute) Acute kidney injury (Acute) Hyperkalemia (Acute) Digoxin toxicity (Acute) Vancomycin toxicity (Resolved) Bradycardia (Resolved) Acute on chronic diastolic (congestive) heart failure (Acute) Metabolic encephalopathy (Acute) Abscess of left lower extremity (Resolved) Abscess of right lower extremity (Resolved) Acute on chronic congestive heart failure (Resolved) Cellulitis of leg, right (Resolved) Diabetes with ulcer of lower extremity (Resolved) Methicillin resistant Staphylococcus aureus infection (Resolved) 1. Acute on chronic diastolic CHF-BNP mildly elevated on admission, 231. Chest x-ray with mild cardiomegaly. Echo 07/23/18 with EF 45%, mild global right ventricular systolic dysfunction, mild to moderate mitral valve insufficiency, mild tricuspid valve insufficiency, mild pulmonic valve insufficiency, RVSP estimated to be 44 mmHg. Suspect noncompliance with diuretic regimen. Recent admission 2 weeks ago for exacerbation of CHF as well. Continue IV Lasix. Strict I&O. Daily weight. Hussein wraps bilateral lower extremities. 1500 cc fluid restriction. 2. Atrial fibrillation with RVR-rate controlled. Wean off of Cardizem drip. Continue metoprolol 100 mg p.o. twice daily and Cardizem CD 120 mg daily. Continue Eliquis. 3. Lymphedema with chronic wounds bilateral lower extremities- Continue outpatient follow up with Dr. Martinez/Wound center. Prior staph infection. Wounds do not appear infected. Wound RN consulted. 4. Obstructive sleep apnea-continue BiPAP nightly. 5. Chronic kidney disease stage III-stable, trend BMP. 6. Chronic normocytic anemia-stable. 7. Chronic COPD-no acute exacerbation. Albuterol aerosols as needed. 8. Depression/anxiety-continue home regimen. 9. Type 2 diabetes [id number]-[id number]-[id number] before meals at bedtime with sliding scale insulin, continue home Lantus regimen. 10. Super morbid obesity-BMI 68.2. Encouraged diet and lifestyle modifications. DVT prophylaxis-Eliquis Discharge planning: Return to SNF at discharge when stable. This patient was seen by JESENIA Gilliland under the supervision of Dr. Kim. <Dami Kim - Last Filed: 08/11/18 15:58> Subjective: Seen and examined. Patient is morbidly obese. Chronic swelling of lower extremities with hypertrophy and hyperplasia and abdomen fat with panniculi. Hard to assess ascites. Patient is still short of breath. - Physical Exam General: Alert, Oriented x3, Cooperative HEENT: Atraumatic, PERRLA, EOMI, Normocephalic Neck: Supple, No JVD, Negative Carotid Bruits Lungs: Diminished, Rales, Short of Breath Cardiovascular: Normal S1, Normal S2, No murmurs, Irregular Rate, - Abdomen: Bowel Sounds Present, Soft, Non Tender, Obese, - - Hard to assess ascites. Abdominal fat panniculi Extremities: No edema, Capillary Refill Less than 3 Seconds Skin: No rashes, No breakdown Musculoskeletal: No Tenderness to Palpation of Joints or Extremities, Arthritic Changes, Muscle Wasting Neurological: Cranial nerves II-XII grossly intact, Neuro grossly intact Psych/Mental Status: Normal Affect, Appropriate Vital Signs Temp Pulse Resp BP Pulse Ox 98.1 F 102 H 16 107/96 H 96 08/11/18 13:30 08/11/18 15:13 08/11/18 15:13 08/11/18 13:30 08/11/18 13:30 Oxygen Flow Rate (L/min) 2 Oxygen Delivery Method Nasal Cannula Weight: 410 lb 0.004 oz Body Mass Index (BMI) 74.7 Intake and Output for Last 24 Hours 08/09/18 08/10/18 08/11/18 23:59 23:59 23:59 Intake Total 1207.7 / 1207.7 Output Total 2550 / 2550 Balance -1342.3 / -1342.3 Laboratory Tests Past 24 Hrs 08/10/18 08/10/18 08/10/18 17:26 17:26 17:26 WBC 6.9 RBC 4.10 L Hgb 11.9 L Hct 39.9 MCV 97.3 MCH 29.0 MCHC 29.8 L RDW 19.0 H RDW Differential 67.2 H Plt Count 172 MPV 9.9 Immature Gran % (Auto) 0.100 Neut % (Auto) 72.5 H Lymph % (Auto) 18.4 L Mccracken % (Auto) 6.3 Eos % (Auto) 2.6 Baso % (Auto) 0.1 Absolute Neuts (auto) 5.0 Absolute Lymphs (auto) 1.28 Total Counted Not Reportable Platelet Estimate ADEQUATE RBC Morphology N CHROM Anisocytosis 1+ PT 18.4 H INR 1.5 Sodium 143 Potassium 4.4 Chloride 105 Carbon Dioxide 31.0 Anion Gap 7 BUN 38 H Creatinine 0.96 Estim Creat Clear Calc 56.78 Est GFR (MDRD) Af Amer 77 Est GFR (MDRD) Non-Af 63 BUN/Creatinine Ratio 39.7 H Glucose 117 H Calcium 8.3 L Troponin I < 0.015 B-Natriuretic Peptide Urine Color Urine Clarity Urine pH Ur Specific [place] Urine Protein Urine Glucose (UA) Urine Ketones Urine Occult Blood Urine Nitrite Urine Bilirubin Urine Urobilinogen Ur Leukocyte Esterase Urine RBC Urine WBC Ur Squamous Epith Cells Urine Bacteria Urine Mucus 08/10/18 08/10/18 08/11/18 17:26 17:55 05:58 WBC 4.0 L RBC 3.25 L Hgb 9.6 L Hct 32.0 L MCV 98.5 MCH 29.5 MCHC 30.0 L RDW 18.8 H RDW Differential 64.1 H Plt Count 52 L MPV 10.7 Immature Gran % (Auto) 0.300 Neut % (Auto) 63.2 Lymph % (Auto) 24.5 Mccracken % (Auto) 6.6 Eos % (Auto) 5.1 H Baso % (Auto) 0.3 Absolute Neuts (auto) 2.5 Absolute Lymphs (auto) 0.97 Total Counted Not Reportable Platelet Estimate RBC Morphology Anisocytosis PT INR Sodium Potassium Chloride Carbon Dioxide Anion Gap BUN Creatinine Estim Creat Clear Calc Est GFR (MDRD) Af Amer Est GFR (MDRD) Non-Af BUN/Creatinine Ratio Glucose Calcium Troponin I B-Natriuretic Peptide 231.6 H Urine Color Yellow Urine Clarity Clear Urine pH 7.0 Ur Specific [place] 1.010 Urine Protein 15 H Urine Glucose (UA) Normal Urine Ketones Negative Urine Occult Blood Negative Urine Nitrite Negative Urine Bilirubin Negative Urine Urobilinogen Normal Ur Leukocyte Esterase 25 H Urine RBC 0 SEEN Urine WBC 0-5 SEEN Ur Squamous Epith Cells 0 SEEN Urine Bacteria RARE Urine Mucus 0 SEEN 08/11/18 05:58 WBC RBC Hgb Hct MCV MCH MCHC RDW RDW Differential Plt Count MPV Immature Gran % (Auto) Neut % (Auto) Lymph % (Auto) Mccracken % (Auto) Eos % (Auto) Baso % (Auto) Absolute Neuts (auto) Absolute Lymphs (auto) Total Counted Platelet Estimate RBC Morphology Anisocytosis PT INR Sodium 140 Potassium 4.5 Chloride 107 Carbon Dioxide 25.0 Anion Gap 8 BUN 33 H Creatinine 0.74 Estim Creat Clear Calc 73.66 Est GFR (MDRD) Af Amer 103 Est GFR (MDRD) Non-Af 85 BUN/Creatinine Ratio 44.4 H Glucose 118 H Calcium 8.1 L Troponin I B-Natriuretic Peptide Urine Color Urine Clarity Urine pH Ur Specific [place] Urine Protein Urine Glucose (UA) Urine Ketones Urine Occult Blood Urine Nitrite Urine Bilirubin Urine Urobilinogen Ur Leukocyte Esterase Urine RBC Urine WBC Ur Squamous Epith Cells Urine Bacteria Urine Mucus POC Glucose 08/11/18 08/11/18 08/10/18 11:02 06:31 21:19 POC Glucose 181 H 134 H 121 H Assessment/Plan This patient was seen in conjunction with Erin PICKENS. I have independently interviewed and examined the patient and reviewed pertinent history, examination findings, laboratory and plan of management. I have reviewed the note and agree with the documented findings with the few additional points. In brief, patient is admitted for acute on chronic diastolic heart failure with echo findings as described above. EF 45% with mild global right ventricular systolic dysfunction and moderate pulmonary hypertension. Cardizem drip is being weaned off. Morbid obesity with lymphedema, obstructive sleep apnea and COPD puts patient on high risk for readmission Multiple comorbidities complicates the present care and expect difficult and delay recovery I have discussed my assessment with Erin PICKENS and orders have been reviewed. Code Visit Inpatient E&M: 82953 Subs Hosp L3
--- NOTE | 2018-08-11 14:07 | CHAPLAIN ---
Type of Pastoral Visit _x__ Initial Visit ___ Follow-up Visit ___ On-call Visit ___ General Patient Visit ___ Spiritual Assessment ___ Family Conference ___ Bereavement ___ Rapid Response ___ Code Blue ___ Other (describe below) Pastoral Care Referral From _x__ Patient ___ Family ___ Nurse ___ Physician ___ Armature Balancer ___ Developing Machine Operator ___ Other (describe below) Sacrament/Intervention _x__ Active listening ___ Anointing ___ Restorationism ___ Bereavement ___ Communion _x__ Joelle exploration ___ _x__ Life review _x__ Prayer ___ Reconciliation ___ Sacrament of Sick _x__ Supportive presence ___ Wedding ___ Other (describe below) Pastoral Comments patient has questions about her joelle and seeks spiritual support; pt was seen in previous admissions to hospital
[2018-08-11 16:31] LABS: Bedside Glucose 160 mg/dL (70-110)
[2018-08-11 22:55] LABS: Bedside Glucose 201 mg/dL (70-110)
[2018-08-12] VITALS (19 sets, daily range): BP systolic 94–123; BP diastolic 63–81; PULSE 64–121; RESP 16–20; TEMP 36.6–36.9; O2SAT 89–98
[2018-08-12] MEDS: Ipratropium/Albuterol Sulfate 3 ML AMPUL.NEB INHALATION ×6 (03:45→23:07)
[2018-08-12 06:56] LABS: Bedside Glucose 130 mg/dL (70-110)
[2018-08-12] MEDS: Budesonide Respules 0.5 MG/2 ML AMPUL.NEB. INHALATION ×2 (07:00→19:33)
[2018-08-12 07:34] LABS: Hematocrit 38.7 % (37-47); Hemoglobin 11.6 g/dl (12.0-15.0); Mean Corpuscular Hgb 29.3 pg (27.0-32.0); Mean Corpuscular Volume 97.7 fL (81-99); Mean Platelet Vol. 9.4 fl (6.2-12.0); Platelet Count 147 K/mm3 (150-450); RBC Distribution Width SD 67.5 fl (35.1-43.9); Red Blood Count 3.96 M/mm3 (4.2-5.4); Scan Indicated on CBC? Y/N YES- FLAGS NOTED; White Blood Count 5.2 K/mm3 (4.4-11.0)
[2018-08-12 07:49] LABS: Anion Gap 6 (5-15); BUN 36 mg/dL (7-18); Calcium,Total 8.5 mg/dL (8.5-10.1); Chloride 103 mmol/L (98-107); Creatinine, Serum 0.82 mg/dL (0.55-1.02); EST Glomerular Filtration Rate 76 mL/min (>60); Est Glom Filt Rate - Afr Amer 92 mL/min (>60); Estimated Creatinine Clearance 66.47 ml/min; Glucose 134 mg/dL (74-106); Potassium 4.3 mmol/L (3.5-5.1); Sodium Level 139 mmol/L (136-145)
[2018-08-12 07:52] LABS: Differential Comment SCANNED
[2018-08-12] MEDS: Multivitamins,Therapeutic Tablet 1 TABLET PO (08:32)
[2018-08-12] MEDS: dilTIAZem CD 120 MG Capsule PO (08:32)
[2018-08-12] MEDS: Fluticasone 0.05% 1 SPRAY NASAL.SRY 2 SPRAY NASAL (08:33)
[2018-08-12] MEDS: APIXABAN 5 MG TABLET PO ×2 (08:33→21:51)
[2018-08-12] MEDS: Venlafaxine XR 75 MG Capsule PO ×2 (08:33→21:51)
[2018-08-12] MEDS: Furosemide 40 MG/4 ML Vial IV ×2 (08:33→18:08)
[2018-08-12] MEDS: Gabapentin 400 MG Capsule PO ×4 (08:34→21:51)
[2018-08-12] MEDS: Metoprolol Tartrate 100 MG Tablet PO ×2 (08:34→21:51)
[2018-08-12] MEDS: Nystatin Powder 15gm Bottle 1 APPLIC TOPICAL ×2 (08:36→21:52)
[2018-08-12] MEDS: traMADol 50 MG Tablet PO (08:40)
[2018-08-12] MEDS: 0.9% NaCl Peripheral Flush Adult/Peds IV ×2 (08:40→18:08)
--- NOTE | 2018-08-12 10:42 | CASEMGMT ---
Patient has healthcare POA, but not living will. HCPOA is in her chart. Chantell STARR MSW
[2018-08-12] MEDS: Acetaminophen 325 MG Tablet 650 MG PO ×2 (11:53→16:52)
[2018-08-12] MEDS: Insulin Lispro 100 UNIT/ML INSULN.PEN SQ ×2 (11:53→21:52)
[2018-08-12 12:21] LABS: Bedside Glucose 164 mg/dL (70-110)
--- NOTE | 2018-08-12 12:58 | PCM.PROGNOTE ---
<Erin Leon - Last Filed: 08/12/18 13:05> Subjective: Patient seen and examined. Notes improvement in breathing. Denies current complaints. - Physical Exam General: Alert, Oriented x3, Cooperative HEENT: Atraumatic, PERRLA, EOMI, Normocephalic Neck: Supple, No JVD, Negative Carotid Bruits Lungs: Clear to auscultation, Diminished Cardiovascular: - - Atrial fibrillation, intermittent tachycardia Abdomen: Bowel Sounds Present, Soft, Non Tender, Non-Distended, Obese Extremities: No clubbing, No cyanosis, Capillary Refill Less than 3 Seconds, Edema - Chronic lymphedema bilateral lower extremities Skin: No rashes, No breakdown, - - Chronic bilateral lower extremity wounds, dressings clean dry and intact Musculoskeletal: No Tenderness to Palpation of Joints or Extremities Neurological: Cranial nerves II-XII grossly intact, Neuro grossly intact Psych/Mental Status: Normal Affect, Appropriate Vital Signs Temp Pulse Resp BP Pulse Ox 98.0 F 121 H 16 107/81 H 97 08/12/18 08:25 08/12/18 12:31 08/12/18 10:43 08/12/18 08:25 08/12/18 08:25 Oxygen Flow Rate (L/min) 2 Oxygen Delivery Method Nasal Cannula Weight: 453 lb 11.381 oz Body Mass Index (BMI) 74.7 Intake and Output for Last 24 Hours 08/10/18 08/11/18 08/12/18 23:59 23:59 23:59 Intake Total 1807.7 / 1807.7 310 / 310 Output Total 4850 / 4850 1150 / 1150 Balance -3042.3 / -3042.3 -840 / -840 Laboratory Tests Past 24 Hrs 08/12/18 08/12/18 07:19 07:19 WBC 5.2 RBC 3.96 L Hgb 11.6 L Hct 38.7 MCV 97.7 MCH 29.3 MCHC 30.0 L RDW 19.0 H RDW Differential 67.5 H Plt Count 147 L MPV 9.4 Differential Comment SCANNED Sodium 139 Potassium 4.3 Chloride 103 Carbon Dioxide 30.0 Anion Gap 6 BUN 36 H Creatinine 0.82 Estim Creat Clear Calc 66.47 Est GFR (MDRD) Af Amer 92 Est GFR (MDRD) Non-Af 76 BUN/Creatinine Ratio 44.0 H Glucose 134 H Calcium 8.5 POC Glucose 08/12/18 08/12/18 08/11/18 11:50 06:50 20:51 POC Glucose 164 H 130 H 201 H 08/11/18 16:26 POC Glucose 160 H Medical Necessity - Tobacco Use Smoking Status: Former smoker Tobacco Use: Cigarettes Assessment/Plan All Active Problems (Last Reviewed 07/23/18 @ 03:27 by Billy Bowling MD) Acute hypoxemic respiratory failure (Acute) Acute kidney injury (Acute) Hyperkalemia (Acute) Digoxin toxicity (Acute) Vancomycin toxicity (Resolved) Bradycardia (Resolved) Acute on chronic diastolic (congestive) heart failure (Acute) Metabolic encephalopathy (Acute) Abscess of left lower extremity (Resolved) Abscess of right lower extremity (Resolved) Acute on chronic congestive heart failure (Resolved) Cellulitis of leg, right (Resolved) Diabetes with ulcer of lower extremity (Resolved) Methicillin resistant Staphylococcus aureus infection (Resolved) 1. Acute on chronic diastolic CHF-BNP mildly elevated on admission, 231. Chest x-ray with mild cardiomegaly. Echo 07/23/18 with EF 45%, mild global right ventricular systolic dysfunction, mild to moderate mitral valve insufficiency, mild tricuspid valve insufficiency, mild pulmonic valve insufficiency, RVSP estimated to be 44 mmHg. Suspect noncompliance with diuretic regimen. Recent admission 2 weeks ago for exacerbation of CHF as well. Continue IV Lasix. Strict I&O. Daily weight. Hussein wraps bilateral lower extremities. 1500 cc fluid restriction. 2. Atrial fibrillation with RVR-intermittent tachycardia. Continue metoprolol 100 mg p.o. twice daily. Increase Cardizem to 180 mg daily. Continue Eliquis. 3. Lymphedema with chronic wounds bilateral lower extremities- Continue outpatient follow up with Dr. Martinez/Wound center. Prior staph infection. Wounds do not appear infected. Wound RN consulted. 4. Obstructive sleep apnea-continue BiPAP nightly. 5. Chronic kidney disease stage III-stable, trend BMP. 6. Chronic normocytic anemia-stable. 7. Chronic COPD-no acute exacerbation. Albuterol aerosols as needed. 8. Depression/anxiety-continue home regimen. 9. Type 2 diabetes [id number] before meals at bedtime with sliding scale insulin, continue home Lantus regimen. 10. Super morbid obesity-BMI 68.2. Encouraged diet and lifestyle modifications. DVT prophylaxis-Eliquis Discharge planning: Return to SNF at discharge when stable. This patient was seen by JESENIA Gilliland under the supervision of Dr. Kim. <Dami Kim - Last Filed: 08/12/18 14:57> Subjective: Seen and examined. Patient feels improvement in breathing. Satisfied with the care, leg swellings are better with Hussein wrap bandage. Morbid obesity with large abdominal panniculus with intertriginous yeast. Objective: General: Alert, Oriented x3, Cooperative HEENT: Atraumatic, PERRLA, EOMI, Normocephalic Neck: Supple, No JVD, Negative Carotid Bruits Lungs: Air entry bilaterally diminished, no Rales, no shortness of breath. Obstructive sleep apnea. Cardiovascular: Normal S1, Normal S2, No murmurs, Irregular Rate, - Abdomen: Bowel Sounds Present, Soft, Non Tender, Obese, - Hard to assess ascites. Abdominal fat panniculi Extremities: No edema, Capillary Refill Less than 3 Seconds Skin: No rashes, No breakdown Musculoskeletal: No Tenderness to Palpation of Joints or Extremities, Arthritic Changes, Muscle Wasting Neurological: Cranial nerves II-XII grossly intact, Neuro grossly intact Psych/Mental Status: Normal Affect, Appropriate - Physical Exam Vital Signs Temp Pulse Resp BP Pulse Ox 98.4 F 64 17 94/63 89 08/12/18 14:25 08/12/18 14:25 08/12/18 14:25 08/12/18 14:25 08/12/18 14:25 Oxygen Flow Rate (L/min) 2 Oxygen Delivery Method Nasal Cannula Weight: 453 lb 11.381 oz Body Mass Index (BMI) 74.7 Intake and Output for Last 24 Hours 08/10/18 08/11/18 08/12/18 23:59 23:59 23:59 Intake Total 1807.7 / 1807.7 310 / 310 Output Total 4850 / 4850 1150 / 1150 Balance -3042.3 / -3042.3 -840 / -840 Laboratory Tests Past 24 Hrs 08/12/18 08/12/18 07:19 07:19 WBC 5.2 RBC 3.96 L Hgb 11.6 L Hct 38.7 MCV 97.7 MCH 29.3 MCHC 30.0 L RDW 19.0 H RDW Differential 67.5 H Plt Count 147 L MPV 9.4 Differential Comment SCANNED Sodium 139 Potassium 4.3 Chloride 103 Carbon Dioxide 30.0 Anion Gap 6 BUN 36 H Creatinine 0.82 Estim Creat Clear Calc 66.47 Est GFR (MDRD) Af Amer 92 Est GFR (MDRD) Non-Af 76 BUN/Creatinine Ratio 44.0 H Glucose 134 H Calcium 8.5 POC Glucose 08/12/18 08/12/18 08/11/18 11:50 06:50 20:51 POC Glucose 164 H 130 H 201 H 08/11/18 16:26 POC Glucose 160 H Assessment/Plan This patient was seen in conjunction with Erin PICKENS. I have independently interviewed and examined the patient and reviewed pertinent history, examination findings, laboratory and plan of management. I have reviewed the note and agree with the documented findings with the few additional points. In brief, patient is admitted for acute on chronic diastolic heart failure with echo findings as described above. EF 45% with mild global right ventricular systolic dysfunction and moderate pulmonary hypertension. Cardizem drip is being weaned off. Morbid obesity with lymphedema, obstructive sleep apnea and COPD puts patient on high risk for readmission. Cardizem drip is discontinued. On Cardizem 180 mg twice daily. On metoprolol. Multiple comorbidities complicates the present care and expect difficult and delay recovery I have discussed my assessment with Erin PICKENS and orders have been reviewed. Code Visit Inpatient E&M: 87050 Subs Hosp L3
[2018-08-12] MEDS: dilTIAZem 60 MG Tablet PO (14:44)
--- NOTE | 2018-08-12 16:24 | CASEMGMT ---
MEÑO spoke with Harleen at [facility]. Patient's insurance actually denied her when she was there and they did a peer to peer and she was approved through today. She said patient can return tomorrow, but she will have to pay for the days she is there until they hear from insurance. MEÑO spoke with patient and she was ok with this plan. She is planning on staying at [facility] self pay if insurance denies her. MEÑO called Harleen at [facility] and let her know that patient is ok with private paying until they hear from insurance. She asked that staff call her on her cell tomorrow when patient is ready for d/c so she can go see patient at [facility]. Green sheet on chart with instructions. Plan: d/c back to [facility] under skilled level of care. [facility] will have to transport as patient will need a bariatric cot. Chantell MONTGOMERY
--- NOTE | 2018-08-12 16:50 | CASEMGMT ---
Received call from Harleen at [facility]. Patient was approved Until Wednesday. Green sheet on chart with instructions. Plan: d/c back to [facility] under skilled level of care. [facility] will transport as she will need a bariatric cot. Chantell STARR MSW
[2018-08-12 16:56] LABS: Bedside Glucose 133 mg/dL (70-110)
[2018-08-12 22:41] LABS: Bedside Glucose 168 mg/dL (70-110)
[2018-08-13] VITALS (8 sets, daily range): BP systolic 104–118; BP diastolic 68–73; PULSE 67–128; RESP 18–19; TEMP 36.6; O2SAT 95–96
[2018-08-13] MEDS: Ipratropium/Albuterol Sulfate 3 ML AMPUL.NEB INHALATION ×3 (03:50→11:06)
[2018-08-13] MEDS: Acetaminophen 325 MG Tablet 650 MG PO ×2 (06:18→11:51)
[2018-08-13 07:00] LABS: Bedside Glucose 140 mg/dL (70-110)
[2018-08-13] MEDS: Budesonide Respules 0.5 MG/2 ML AMPUL.NEB. INHALATION (07:34)
[2018-08-13] MEDS: Furosemide 40 MG/4 ML Vial IV (09:33)
[2018-08-13] MEDS: APIXABAN 5 MG TABLET PO (09:33)
[2018-08-13] MEDS: Fluticasone 0.05% 1 SPRAY NASAL.SRY 2 SPRAY NASAL (09:33)
[2018-08-13] MEDS: 0.9% NaCl Peripheral Flush Adult/Peds IV (09:33)
[2018-08-13] MEDS: Multivitamins,Therapeutic Tablet 1 TABLET PO (09:34)
[2018-08-13] MEDS: Metoprolol Tartrate 100 MG Tablet PO (09:34)
[2018-08-13] MEDS: Nystatin Powder 15gm Bottle 1 APPLIC TOPICAL (09:34)
[2018-08-13] MEDS: Gabapentin 400 MG Capsule PO (09:34)
[2018-08-13] MEDS: dilTIAZem CD 180 MG Capsule PO (09:34)
[2018-08-13] MEDS: Venlafaxine XR 75 MG Capsule PO (09:34)
[2018-08-13] MEDS: Polyethylene Glycol 3350 17 GM PACKET PO (09:43)
[2018-08-13 11:31] LABS: Bedside Glucose 160 mg/dL (70-110)
--- NOTE | 2018-08-13 11:44 | PCM.EXTCARCO ---
- Diet 08/10/18 20:41 Diet: Cardiac/Low Cholesterol Food consistency:: Regular Liquid Consistency:: Regular/Thin - Routine Orders/Code Status Enema Type: Fleetz Enema Frequency: Daily PRN Suppository Type: Dulcolax 10mg Suppository Frequency: Daily PRN O2 Liters per Minute: 2 O2 Frequency: PRN Keep PO Greater than or Equal to (%): 90 Routine Lab Work: CBC, BMP, - - In 3 days and then weekly. - Wound(s) Posterior Right leg Wound Type: Stasis Ulcer Dressing Change: AntiMicrobial (Aquacel AG, etc) Left posterior leg Wound Type: Stasis Ulcer Dressing Change: AntiMicrobial (Aquacel AG, etc) Right Forearm Wound Type: Scabbed area Left inner ankle Wound Type: scabbed area - Suggestions for Active Care Change Position every (hours): 2 Times a day to sit in chair: 3 - Therapies Physical Therapy: Eval and Treat Occupational Therapy: Eval and Treat - Problem/Diagnosis (1) Ulcer of right lower extremity with fat layer exposed Status: Chronic Current Visit: No (2) Ulcer of left lower extremity with fat layer exposed Status: Chronic Current Visit: No (3) Venous insufficiency of both lower extremities Status: Chronic Current Visit: No (4) Acute hypoxemic respiratory failure Status: Acute Current Visit: Yes (5) Depression Status: Chronic Current Visit: No (6) Atrial fibrillation with RVR Status: Acute Comment: Chronic afib Current Visit: Yes (7) Chronic acquired lymphedema Status: Chronic Current Visit: No (8) Acute on chronic diastolic (congestive) heart failure Status: Acute Current Visit: Yes (9) Type 2 diabetes mellitus Status: Chronic Current Visit: No (10) Hypertension Status: Chronic Current Visit: No - Allergies/Procedures Done in Hospital Allergies/Adverse Reactions: Allergies latex Allergy (Verified 07/22/18 21:42) Itching pentazocine lactate [From Talwin] Allergy (Verified 07/22/18 21:42) Itching phenobarbital Allergy (Verified 07/22/18 21:42) Itching tree nut Allergy (Verified 07/22/18 21:42) Anaphylaxis codeine Adverse Reaction (Verified 07/22/18 21:42) Upset Stomach Procedures: None - Type of Care/Length of Stay Estimated LOS: Convalescent Care Less Than 30 days Type of Care Needed: Skilled Rehab Potential: Fair Prognosis: Fair - Additional Orders/Day of Discharge Additional Orders: Cleanse wounds to bilateral posterior lower leg daily with normal saline. Pat dry. Placed Aquacel Ag and cover with ABD pads. Keep wrapped with Kerlix. Hussein wraps from the base of the toes to just below the knees bilaterally. Keep legs elevated as much as possible. H&P will serve as current which was dated: 08/10/18 Day of Discharge: 08/13/18 - Dietary and Speech Recommendations Dietitian Recommendations/Changes: Rec diet change to 1800 calorie controlled, cardiac, low sodium w/ fluid restriction as indicated. Rec 1 packet Josafat BID- currently on diet order but cannot be sent via kitchen, must be ordered from pharmacy. Pt agreeable to 120 mL Glucerna w/ meals for extra protein. - Follow Up Care Primary Care Physician: Rajesh Reynolds [Primary Care Provider] - Please follow up with your Primary Care Physician in: 1 Week Please Follow Up With: Oral Suazo MD When: 1-2 Weeks Please Follow Up With: Wound Center/Dr. Martinez When: 1 Week
[2018-08-13] MEDS: Insulin Lispro 100 UNIT/ML INSULN.PEN SQ (11:51)
--- NOTE | 2018-08-13 11:58 | DS.PCM_ITS ---
<Erin Leon - Last Filed: 08/13/18 12:11> Discharge Date and Diagnosis Date of Admission: 08/10/18 Date of Discharge: 08/13/18 - Primary Discharge Diagnosis Active and Suspected Problems (Last Reviewed 07/23/18 @ 03:27 by Billy Bowling MD) 1. Acute on chronic diastolic CHF 2. Atrial fibrillation with RVR 3. Lymphedema with chronic wounds bilateral lower extremities 4. Obstructive sleep apnea 4. Obstructive sleep apnea 5. Chronic kidney disease stage III 6. Chronic normocytic anemia 7. Chronic COPD 8. Depression/anxiety 9. Type 2 diabetes mellitus 10. Super morbid obesity - Secondary Discharge Diagnosis Chronic Problems (Last Reviewed 07/23/18 @ 03:27 by Billy Bowling MD) Ulcer of right lower extremity with fat layer exposed (Chronic) Ulcer of left lower extremity with fat layer exposed (Chronic) Venous insufficiency of both lower extremities (Chronic) Hx MRSA infection (Chronic) COPD exacerbation (Chronic) Lymphedema (Chronic) Depression (Chronic) Chronic acquired lymphedema (Chronic) Nonhealing ulcer of multiple sites of left lower extremity with fat layer exposed (Chronic) Iron deficiency anemia, unspecified (Chronic) Sleep apnea (Chronic) Poor compliance with CPAP treatment (Chronic) Biatrial enlargement (Chronic) Non-healing wound (Chronic) Chronic anticoagulation (Chronic) Diastolic CHF, chronic (Chronic) Pulmonary hypertension (Chronic) Morbid obesity (Chronic) Chronic atrial fibrillation (Chronic) Type 2 diabetes mellitus (Chronic) Hypertension (Chronic) Hospital Course and Treatment Imaging Results: Diagnostic Data Chest X-Ray 08/10/18 18:30 IMPRESSION: Moderate cardiomegaly. Bilateral hilar prominence appearing to represent vascular structure. No acute cardiopulmonary disease process is seen. Chest findings are stable in the interval. Electronically Signed: Dong Lock MD at 19:04 EST , Service support , Consultations 08/10/18 23:41 Consult: Onc/Wound/aircraft armorer Routine Comment: Wound care Reason for Consult:: Wounds Comments:: Wounds to BLE Operations: None Procedures: None Summary of Care Provided: The patient is a 57 year old F admitted 08/10/2018 due to shortness of breath and lower extremity swelling. 1. Acute on chronic diastolic CHF-BNP mildly elevated on admission, 231. Chest x-ray with mild cardiomegaly. Echo 07/23/18 with EF 45%, mild global right ventricular systolic dysfunction, mild to moderate mitral valve insufficiency, mild tricuspid valve insufficiency, mild pulmonic valve insufficiency, RVSP estimated to be 44 mmHg. Suspect noncompliance with diuretic regimen. Recent admission 2 weeks ago for exacerbation of CHF as well. Patient received IV Lasix during admission. Discharged on Lasix 40 mg p.o. daily. Strict I&O. Daily weight. Hussein wraps bilateral lower extremities. 1500 cc fluid restriction. Follow-up with primary care physician in 1 week. Follow-up with cardiology in 1-2 weeks. Patient was previously referred to Dr. Suazo. 2. Atrial fibrillation with RVR-intermittent tachycardia. Continue metoprolol 100 mg p.o. twice daily. Increase Cardizem CD to 240 mg daily. Continue Eliquis. 3. Lymphedema with chronic wounds bilateral lower extremities- Continue outpatient follow up with Dr. Martinez/Wound center. Prior staph infection. Wounds do not appear infected. Follow with wound center/Dr. Martinez in 1 week. Continue daily dressing changes as ordered. 4. Obstructive sleep apnea-continue BiPAP nightly. 5. Chronic kidney disease stage III-stable. 6. Chronic normocytic anemia-stable. 7. Chronic COPD-no acute exacerbation. 8. Depression/anxiety-continue home regimen. 9. Type 2 diabetes mellitus-continue prior insulin regimen. 10. Super morbid obesity-BMI 68.2. Encouraged diet and lifestyle modifications. General: Alert, Oriented x3, Cooperative HEENT: Atraumatic, PERRLA, EOMI, Normocephalic Neck: Supple, No JVD, Negative Carotid Bruits Lungs: Clear to auscultation, Diminished Cardiovascular: - - Atrial fibrillation, intermittent tachycardia Abdomen: Bowel Sounds Present, Soft, Non Tender, Non-Distended, Obese Extremities: No clubbing, No cyanosis, Capillary Refill Less than 3 Seconds, Edema - Chronic lymphedema bilateral lower extremities Skin: No rashes, No breakdown, - - Chronic bilateral lower extremity wounds, dressings clean dry and intact Musculoskeletal: No Tenderness to Palpation of Joints or Extremities Neurological: Cranial nerves II-XII grossly intact, Neuro grossly intact Psych/Mental Status: Normal Affect, Appropriate Patient seen and examined prior to discharge. Physical assessment as noted above. Patient is stable for discharge with follow up recommendations as noted above. This patient was seen by JESENIA Gilliland under the supervision of Dr. Kim. - Physical Exam Vital Signs Temp Pulse Resp BP Pulse Ox 97.9 F 120 H 18 104/68 96 08/13/18 09:45 08/13/18 11:15 08/13/18 09:45 08/13/18 09:45 08/13/18 09:45 Oxygen Flow Rate (L/min) 2 Oxygen Delivery Method Nasal Cannula Weight: 455 lb 4.073 oz Body Mass Index (BMI) 74.7 Intake and Output for Last 24 Hours 08/11/18 08/12/18 08/13/18 23:59 23:59 23:59 Intake Total 1807.7 / 1807.7 680 / 680 920 / 920 Output Total 4850 / 4850 1750 / 1750 2950 / 2950 Balance -3042.3 / -3042.3 -1070 / -1070 -2030 / -2030 POC Glucose 08/13/18 08/13/18 08/12/18 11:27 06:56 21:33 POC Glucose 160 H 140 H 168 H 08/12/18 08/12/18 16:50 11:50 POC Glucose 133 H 164 H Home Medications: Medications to take at Discharge albuterol sulfate HFA 90 mcg/actuation aerosol inhaler 2 puff INHALATION Q4H PRN g 08/26/17 fluticasone 50 mcg/actuation nasal spray,suspension 2 spray INTRANASAL DAILY 08/26/17 Budesonide/Formoterol 160/4.5 [Symbicort 160/4.5 Mcg Inhaler (SP)] 1 inh INHALATION DAILY 12/06/17 Acetaminophen [Pain Relief Extra Strength] 650 mg PO Q6H 12/24/17 Apixaban [Eliquis] 5 mg PO BID 03/07/18 Gabapentin [Neurontin] 400 mg PO 4X/DAY 03/07/18 Insulin Lispro [Humalog] 6 unit SQ TIDCM 03/07/18 Lorazepam [Ativan] 0.5 mg PO Q6H PRN PRN 03/07/18 Multivitamin [Daily Multiple Vitamin] 1 each PO DAILY 03/07/18 Venlafaxine HCl [Effexor Xr] 75 mg PO BID 03/07/18 Nut.tx.gluc Intol,Lf,Soy/Fiber [Boost Glucose Control Liquid] 237 ml PO BID 06/07/18 Albuterol Aerosols [Ventolin Aerosols] 2.5 mg INHALATION Q2H PRN PRN vial.neb. 07/26/18 Insulin Glargine [Lantus SoloStar Pen] 12 units SC QHS pen 07/26/18 Ipratropium/Albuterol Sulfate [Duoneb] 3 ml INHALATION Q4H.RT ampul.neb 07/26/18 Metoprolol Tartrate [Lopressor (beta katie)] 100 mg PO BID tablet 07/26/18 Potassium Chloride [K-Dur] 40 meq PO DAILYCM tablet 07/26/18 Bisacodyl 10 mg RECTAL PRN PRN 08/10/18 Cyclobenzaprine HCl 10 mg PO QHS PRN PRN 08/10/18 Docusate Sodium 100 mg PO Q12H PRN PRN 08/10/18 Josafat Packet 1 packet PO BID 08/10/18 Magnesium Hydroxide [Milk of Magnesia] 400 mg PO PRN PRN 08/10/18 Mineral Oil 118 ml RECTAL PRN PRN 08/10/18 Polyethylene Glycol 3350 [Miralax] 17 gm PO DAILY 08/10/18 Diltiazem CD [Cardizem CD] 240 mg PO DAILY #30 capsule 08/13/18 Furosemide [Lasix] 40 mg PO DAILY #30 tablet 08/13/18 Nystatin Powder [Mycostatin Powder] 1 applic TOPICAL BID bottle 08/13/18 Following Prescrptions Were Given to Patient: Diltiazem CD [Cardizem CD] 240 mg PO DAILY #30 capsule Furosemide [Lasix] 40 mg PO DAILY #30 tablet Primary Care Physician: Rajesh Reynolds [Primary Care Provider] - Please follow up with your Primary Care Physician in: 1 Week Please Follow Up With: Oral Suazo MD When: 1-2 Weeks Please Follow Up With: Wound Center/Dr. Martinez When: 1 Week Disposition: Alf facility Minutes spent on discharge:: 35 Patient Condition:: Stable Medical Necessity - Tobacco Use Smoking Status: Former smoker Tobacco Use: Cigarettes Meaningful Use Info Meaningful Use Diagnoses (Choose all that apply): CHF - CHF HUSSEIN/ARB ordered at discharge?: No Reason HUSSEIN/ARB not ordered?: Hypotension Documented LVEF (%): 45 <Dami Kim - Last Filed: 08/14/18 17:56> Discharge Date and Diagnosis - Secondary Discharge Diagnosis Chronic Problems (Last Reviewed 07/23/18 @ 03:27 by Billy Bowling MD) Ulcer of right lower extremity with fat layer exposed (Chronic) Ulcer of left lower extremity with fat layer exposed (Chronic) Venous insufficiency of both lower extremities (Chronic) Hx MRSA infection (Chronic) COPD exacerbation (Chronic) Lymphedema (Chronic) Depression (Chronic) Chronic acquired lymphedema (Chronic) Nonhealing ulcer of multiple sites of left lower extremity with fat layer exposed (Chronic) Iron deficiency anemia, unspecified (Chronic) Sleep apnea (Chronic) Poor compliance with CPAP treatment (Chronic) Biatrial enlargement (Chronic) Non-healing wound (Chronic) Chronic anticoagulation (Chronic) Diastolic CHF, chronic (Chronic) Pulmonary hypertension (Chronic) Morbid obesity (Chronic) Chronic atrial fibrillation (Chronic) Type 2 diabetes mellitus (Chronic) Hypertension (Chronic) Hospital Course and Treatment Consultations 08/10/18 23:41 Consult: Onc/Wound/aircraft armorer Routine Comment: Wound care Reason for Consult:: Wounds Comments:: Wounds to BLE Summary of Care Provided: This patient was seen in conjunction with Erin PICKENS. I have independently interviewed and examined the patient and reviewed pertinent history, examination findings, laboratory and plan of management. I have reviewed the note and agree with the documented findings with the few additional points. In brief, patient is admitted for acute on chronic diastolic heart failure with echo findings as described above. EF 45% with mild global right ventricular systolic dysfunction and moderate pulmonary hypertension. Cardizem drip is being weaned off. Morbid obesity with lymphedema, obstructive sleep apnea and COPD puts patient on high risk for readmission. Cardizem drip is discontinued. On Cardizem 180 mg twice daily. On metoprolol. Patient was given prescription of nystatin powder as patient has intertriginous candidiasis of abdominal folds of skin Discharge medication reconciliation done. Discharge follow-up instructions completed. Discharge process discussed with the patient. Total time spent, exact 35 minutes on discharge meds reconciliation, examination, review of imaging and blood test and discussion with the patient on follow-up instructions. I have discussed my assessment with FERRIS WHEEL OPERATORErin and orders have been reviewed. [] Subjective: Patient was seen and examined. Shortness of breath is much better. Bilateral lower extremity swelling much better. Patient uses CPAP at night. Objective: General: Alert, Oriented x3, Cooperative HEENT: Atraumatic, PERRLA, EOMI, Normocephalic Neck: Supple, No JVD, Negative Carotid Bruits Lungs: Air entry bilaterally diminished, no Rales, no shortness of breath. Obstructive sleep apnea. Cardiovascular: Normal S1, Normal S2, No murmurs, Irregular Rate Abdomen: Bowel Sounds Present, Soft, Non Tender, Obese, Abdominal fat panniculi. Extremities: No edema, Capillary Refill Less than 3 Seconds Skin: Intertriginous yeast infection, present on admission Musculoskeletal: No Tenderness to Palpation of Joints or Extremities, Arthritic Changes, Muscle Wasting Neurological: Cranial nerves II-XII grossly intact, Neuro grossly intact Psych/Mental Status: Normal Affect, Appropriate - Physical Exam Vital Signs Temp Pulse Resp BP Pulse Ox 97.9 F 120 H 18 104/68 96 08/13/18 09:45 08/13/18 11:15 08/13/18 09:45 08/13/18 09:45 08/13/18 09:45 Oxygen Flow Rate (L/min) 2 Oxygen Delivery Method Nasal Cannula Weight: 455 lb 4.073 oz Body Mass Index (BMI) 74.7 Intake and Output for Last 24 Hours 08/12/18 08/13/18 08/14/18 23:59 23:59 23:59 Intake Total 680 / 680 920 / 920 Output Total 1750 / 1750 2950 / 2950 Balance -1070 / -1070 -2029 / -2029 Code Visit Inpatient E&M: 29166 Disch Hosp
[2018-08-13] MEDS: dilTIAZem 30 MG Tablet PO (12:46)
== END 2018-08-13 13:59 | disposition skilled nursing facility (03) | DRG 291 ==
LOC: ED 18:22 → PCU 20:00
PROVIDERS: Nurse Practitioner Family; Admitting Provider Student in an Organized Health Care Education/Training Program; Emergency Provider Emergency Medicine; Family Provider Family Medicine; Referring Provider Student in an Organized Health Care Education/Training Program; Visit Provider Internal Medicine
DX: I13.0 Hypertensive heart and chronic kidney disease with heart failure and stage 1 through stage 4 chronic kidney disease, or unspecified chronic kidney disease (principal); I50.33 Acute on chronic diastolic (congestive) heart failure; Z68.45 Body mass index [BMI] 70 or greater, adult; G47.33 Obstructive sleep apnea (adult) (pediatric); E66.01 Morbid (severe) obesity due to excess calories; I27.20 Pulmonary hypertension, unspecified; I89.0 Lymphedema, not elsewhere classified; N18.3 Chronic kidney disease, stage 3 (moderate); E11.22 Type 2 diabetes mellitus with diabetic chronic kidney disease; F41.9 Anxiety disorder, unspecified; F32.9 Major depressive disorder, single episode, unspecified; Z86.14 Personal history of Methicillin resistant Staphylococcus aureus infection; I87.2 Venous insufficiency (chronic) (peripheral); J44.9 Chronic obstructive pulmonary disease, unspecified; B37.2 Candidiasis of skin and nail; Z79.01 Long term (current) use of anticoagulants; D50.9 Iron deficiency anemia, unspecified; I48.2 Chronic atrial fibrillation; Z79.4 Long term (current) use of insulin; Z79.899 Other long term (current) drug therapy; Z87.891 Personal history of nicotine dependence
CPT/HCPCS: 36415; 71045; 80048; 81001; 82962; 83880; 84484; 85025; 85027; 85610; 93005; 94640; 97110; 97161; 97165; 97530; 97535; 97802; 99285; A4216; J1940

== ENCOUNTER → 2020-02-01 | Outpatient (CLI) | payer OTHER, SELFPAY ==
[2018-08-10 17:20] VITALS: BMI 74.7
== END | disposition home or self-care (01) ==
LOC: LABSPEC 15:51
PROVIDERS: Referring Provider Nurse Practitioner Adult Health; Visit Provider Nurse Practitioner Adult Health
DX: J98.8 Other specified respiratory disorders (principal)
CPT/HCPCS: 87635; U0003